=== PATIENT | female | born 1955 | race Caucasian/White ===

== ENCOUNTER → 2017-02-13 | Outpatient (CLI) | payer MEDICARE, OTHER ==
[~2017-02-13] MED LIST: ALDA25TA2 PO; ALLO100T PO; BYST10TA2 PO; CALC600T27 PO; CINN500C9 PO; CLEO300C2 PO; CYCL10TA PO; CYCL5TA PO; CYMB60CA3 PO; DIOV80TA3 PO; DOXY100C PO; FLEC50TA PO; GARL1CAP PO; HYDR200T3 PO; IPRASOL4 NEB; LECI1200 PO; LISI-542 PO; MAGN64TASA PO; MAXZ75TA PO; METF-415 PO; MIRA0.12 PO; OMEG12002 PO; OMEP20CA3 PO; ONDA1TAB15 PO; ONDA4TAB6 PO; PERCOCET PO; PRED5TA PO; PROA1AER INH; SPIR25TA2 PO; SUPECAP24 PO; THAL50CA PO; TORS10TA3 PO; TRAM37.53 PO; TRAM50TA2 PO; TRAZ50TA4 PO; TRIA37.53 PO; TYLE650T25 PO; VALS1TAB47 PO; VITA400C29 PO; VITMTA PO
--- NOTE | 2017-02-13 14:53 | REP ---
CT CHEST WITHOUT CONTRAST: 02/13/2017 CLINICAL HISTORY: Follow-up right lower lobe semisolid nodule. COMPARISON: CT 05/13/2016, CT angio chest 10/17/2015, report of CT 04/28/2016 from [facility]. I do not have those images. TECHNIQUE: Noncontrast images were obtained. Coronal and sagittal reconstructions provided along with thick slab coronal MIP reformats in the lung window settings. ILogic protocol images were also reconstructed. FINDINGS: Lung gerardo are well inflated. In the superior segment of the left lower lobe, there is an ill-defined 12 x 13 mm semisolid nodule peripherally it has mild stranding towards the pleura. The appearance is grossly unchanged in contour. On previous studies, it was approximately 10 mm axial images from the earlier generation scanner 05/13/2016. I do not see other parenchymal significant findings. There is some minor curvilinear fibrotic change in the left base. No pleural effusion, acute infiltrate or new nodule/mass. Heart unchanged. The appears to be a right upper extremity PICC line terminating in the SVC near the right atrium. No pathologic sized mediastinal or hilar adenopathy. No aortic aneurysm. A few calcifications in the arch and descending aorta. No definite hiatal hernia. In the upper abdomen, the liver and spleen are seen only in that portion of their entirety. I could not exclude splenomegaly. It does appear prominent in that portion included. The transverse diameter is 14 cm. The AP diameter of 7.2 cm, vertical diameter incomplete but at least 9.8 cm. Adrenal glands intact. Upper pole right kidney seen and unremarkable. That portion of pancreas included unremarkable. IMPRESSION: 1. Semisolid nodule superior segment left lower lobe measuring about 13 x 12 mm on my direct measurement from our images today. This is similar to report from outside CT. There is a few millimeters larger than are prior CT on an earlier generation scanner from the May 2016. No other significant lesions or nodules. 2. There appears to be a right upper extremity PICC line terminating in the SVC near the right atrium. 3. No pathologic mediastinal, hilar, axillary or supraclavicular adenopathy. Lobulated thyroid with multiple hypodensities within it as before. 4. Splenomegaly. Signed by Leonardo Bowser MD 02/13/2017 05:19 P
== END ==
LOC: M RAD 10:32
PROVIDERS: ATTEND Internal Medicine
DX: R91.1 Solitary pulmonary nodule (principal)

== ENCOUNTER → 2017-02-22 | Outpatient (REF) | payer MEDICARE, OTHER ==
[2017-02-22 10:10] LABS: DIFF SLIDE NUMBER 191; MEAN CORPUSCULAR HEMOGLOBIN 25.6 pg (27.0-33.0); MEAN CORPUSCULAR HGB CONC 32.1 g/dl (32.0-36.5); MEAN CORPUSCULAR VOLUME 79.8 fl (80.0-96.0); RED CELL DISTRIBUTION WIDTH 18.7 % (11.5-14.5)
[2017-02-22 10:25] LABS: ALKALINE PHOSPHATASE 116 U/L (45-117); ALT/SGPT 23 U/L (12-78); ANION GAP 9 MEQ/L (8-16); AST/SGOT 29 U/L (15-37); BILIRUBIN,TOTAL 0.4 MG/DL (0.2-1.0); BLOOD UREA NITROGEN 13 MG/DL (7-18); CALCIUM LEVEL 7.9 MG/DL (8.5-10.1); CARBON DIOXIDE LEVEL 26 MEQ/L (21-32); CHLORIDE LEVEL 99 MEQ/L (98-107); CREATININE FOR GFR 0.98 MG/DL (0.55-1.02); GLOMERULAR FILTRATION RATE > 60.0 (>51); GLUCOSE, FASTING 94 MG/DL (70-105); POTASSIUM SERUM 4.1 MEQ/L (3.5-5.1); SODIUM LEVEL 134 MEQ/L (136-145)
[2017-02-22 10:43] LABS: PLATELET COUNT, AUTOMATED 29 k/mm3 (150-450); WHITE BLOOD COUNT 44.5 K/mm3 (4.0-10.0)
[2017-02-22 11:02] LABS: BANDS 3 % (< 11); NUCLEATED RED BLOOD CELL 2 % (0-0)
[2017-02-22 11:03] LABS: ANISOCYTOSIS 2+; HYPOCHROMASIA 1+; MICROCYTOSIS 1+
[2017-02-22 11:04] LABS: TEAR DROP CELLS 1+
== END ==
LOC: M LAB REF 09:43
PROVIDERS: ATTEND Internal Medicine Hematology
DX: D75.89 Other specified diseases of blood and blood-forming organs (principal)

== ENCOUNTER → 2017-06-12 | Outpatient (REF) | payer MEDICARE, OTHER ==
[~2017-06-12] MED LIST changes: +ACYC200C8 PO; +ACYC400T PO; +AMLO10TA2 PO; +ATIV1TAB7 PO; +BACT800T5 PO; +BENZ200C53 PO; +BISO5TAB5 PO; +BUDE3CAP PO; +DIFL200T PO; +DILT120C PO; +DILT60TA PO; +DITR5TAB PO; +FENT12PA TOP; +GARL10004 PO; -GARL1CAP PO; +HYDR10TAB PO; +LACT10SO29 PO; +LISI10TA4 PO; +METO100T5 PO; +MG-PTAB PO; -ONDA1TAB15 PO; +ONDA4TAB5 PO; +OXYC-403 PO; +PANT40TA2 PO; -PROA1AER INH; +PROAAER10 INH; +PROG1CAP2 PO; +PROM12.55 PO; +REPA1TAB PO; +SENN1TAB10 PO; +SERT-155 PO; +SULFAMETHOXAZOLE-TMP; +TESS100C PO; +TRAZ50TA11 PO; -TRAZ50TA4 PO; +VITA-110 PO; -VITA400C29 PO; +[UNRECOGNIZED DRUG - CODE] PO
[2017-06-12 09:51] LABS: BASO % 0.8 % (0.0-1.0); EOS % 0.4 % (0.0-3.0); LARGE UNSTAINED CELL % 1.8 % (0.0-4.0); LYMPH # 0.4 K/mm3 (1.5-4.5); LYMPH % 19.2 % (24.0-44.0); MEAN CORPUSCULAR HEMOGLOBIN 33.1 pg (27.0-33.0); MEAN CORPUSCULAR HGB CONC 34.6 g/dl (32.0-36.5); MEAN CORPUSCULAR VOLUME 95.6 fl (80.0-96.0); MONO # 0.1 K/mm3 (0.0-0.8); MONO % 3.2 % (0.0-5.0); NEUTROPHILS # 1.6 K/mm3 (1.8-7.7); NEUTROPHILS % 74.5 % (36.0-66.0); RED CELL DISTRIBUTION WIDTH 20.9 % (11.5-14.5); WHITE BLOOD COUNT 2.1 K/mm3 (4.0-10.0)
[2017-06-12 09:58] LABS: PLATELET COUNT, AUTOMATED 98 k/mm3 (150-450)
[2017-06-12 10:00] LABS: ALBUMIN 3.5 GM/DL (3.2-5.2); ALBUMIN/GLOBULIN RATIO 1.75 (1.00-1.93); BILIRUBIN,TOTAL 0.5 MG/DL (0.2-1.0); CREATININE FOR GFR 1.66 MG/DL (0.55-1.02); GLOMERULAR FILTRATION RATE 33.5 (>45); MAGNESIUM LEVEL 1.7 MG/DL (1.8-2.4); POTASSIUM SERUM 3.9 MEQ/L (3.5-5.1); TOTAL PROTEIN 5.5 GM/DL (6.4-8.2)
== END ==
LOC: M LAB REF 09:21
PROVIDERS: ATTEND Internal Medicine
DX: Z94.81 Bone marrow transplant status (principal)

== ENCOUNTER → 2017-06-19 | Outpatient (REF) | payer MEDICARE, OTHER ==
[2017-06-19 11:28] LABS: ALBUMIN 3.7 GM/DL (3.2-5.2); ALBUMIN/GLOBULIN RATIO 1.68 (1.00-1.93); BILIRUBIN,TOTAL 0.5 MG/DL (0.2-1.0); CALCIUM LEVEL 9.2 MG/DL (8.8-10.2); CREATININE FOR GFR 1.94 MG/DL (0.55-1.02); POTASSIUM SERUM 3.8 MEQ/L (3.5-5.1); TOTAL PROTEIN 5.9 GM/DL (6.4-8.2)
[2017-06-19 11:34] LABS: ADD MANUAL DIFFER YES; MEAN CORPUSCULAR HEMOGLOBIN 34.4 pg (27.0-33.0); MEAN CORPUSCULAR HGB CONC 35.9 g/dl (32.0-36.5); MEAN CORPUSCULAR VOLUME 95.7 fl (80.0-96.0); PLATELET COUNT, AUTOMATED 104 k/mm3 (150-450); RED CELL DISTRIBUTION WIDTH 20.2 % (11.5-14.5); WHITE BLOOD COUNT 1.8 K/mm3 (4.0-10.0)
[2017-06-19 11:46] LABS: BASOPHILS 1 % (0-4)
== END ==
LOC: M LAB REF 11:02
PROVIDERS: ATTEND Internal Medicine
DX: Z94.81 Bone marrow transplant status (principal)

== ENCOUNTER → 2017-06-26 | Outpatient (REF) | payer MEDICARE, OTHER ==
[2017-06-26 10:12] LABS: ADD MANUAL DIFFER YES; DIFF SLIDE NUMBER 152; MEAN CORPUSCULAR HEMOGLOBIN 35.1 pg (27.0-33.0); MEAN CORPUSCULAR HGB CONC 36.1 g/dl (32.0-36.5); MEAN CORPUSCULAR VOLUME 97.2 fl (80.0-96.0)
[2017-06-26 10:30] LABS: ALBUMIN 3.7 GM/DL (3.2-5.2); ALBUMIN/GLOBULIN RATIO 1.68 (1.00-1.93); BILIRUBIN,TOTAL 0.6 MG/DL (0.2-1.0); CALCIUM LEVEL 9.5 MG/DL (8.8-10.2); CREATININE FOR GFR 1.63 MG/DL (0.55-1.02); GLOMERULAR FILTRATION RATE 34.3 (>45); MAGNESIUM LEVEL 1.6 MG/DL (1.8-2.4); TOTAL PROTEIN 5.9 GM/DL (6.4-8.2)
[2017-06-26 10:42] LABS: PLATELET COUNT, AUTOMATED 94 k/mm3 (150-450)
[2017-06-26 10:48] LABS: ANISOCYTOSIS 2+
[2017-06-26 10:52] LABS: HYPERSEGMENTED POLYS 1+
== END ==
LOC: M LAB REF 08:45
PROVIDERS: ATTEND Internal Medicine
DX: Z94.81 Bone marrow transplant status (principal)

== ENCOUNTER → 2017-07-03 | Outpatient (REF) | payer MEDICARE, OTHER ==
[2017-07-03 10:54] LABS: ADD MANUAL DIFFER YES; DIFF SLIDE NUMBER 163; MEAN CORPUSCULAR HGB CONC 34.9 g/dl (32.0-36.5); MEAN CORPUSCULAR VOLUME 100.1 fl (80.0-96.0); RED CELL DISTRIBUTION WIDTH 18.6 % (11.5-14.5); WHITE BLOOD COUNT 3.2 K/mm3 (4.0-10.0)
[2017-07-03 11:12] LABS: PLATELET COUNT, AUTOMATED 93 k/mm3 (150-450)
[2017-07-03 11:18] LABS: POLYCHROMASIA 1+
[2017-07-03 12:19] LABS: ALBUMIN 3.8 GM/DL (3.2-5.2); ALBUMIN/GLOBULIN RATIO 1.81 (1.00-1.93); BILIRUBIN,TOTAL 0.5 MG/DL (0.2-1.0); CALCIUM LEVEL 8.9 MG/DL (8.8-10.2); CREATININE FOR GFR 1.48 MG/DL (0.55-1.02); GLOMERULAR FILTRATION RATE 38.3 (>45); MAGNESIUM LEVEL 1.7 MG/DL (1.8-2.4); POTASSIUM SERUM 4.1 MEQ/L (3.5-5.1); TOTAL PROTEIN 5.9 GM/DL (6.4-8.2)
== END ==
LOC: M LAB REF 09:35
PROVIDERS: ATTEND Internal Medicine
DX: Z94.81 Bone marrow transplant status (principal)

== ENCOUNTER → 2017-07-17 | Outpatient (REF) | payer MEDICARE, OTHER ==
[2017-07-17 17:38] LABS: ALBUMIN 3.8 GM/DL (3.2-5.2); ALBUMIN/GLOBULIN RATIO 1.65 (1.00-1.93); BILIRUBIN,TOTAL 0.5 MG/DL (0.2-1.0); CALCIUM LEVEL 9.1 MG/DL (8.8-10.2); CREATININE FOR GFR 1.57 MG/DL (0.55-1.02); GLOMERULAR FILTRATION RATE 35.8 (>45); MAGNESIUM LEVEL 1.9 MG/DL (1.8-2.4); POTASSIUM SERUM 4.2 MEQ/L (3.5-5.1); TOTAL PROTEIN 6.1 GM/DL (6.4-8.2)
== END ==
LOC: M LAB REF 16:18
PROVIDERS: ATTEND Internal Medicine
DX: Z94.81 Bone marrow transplant status (principal)

== ENCOUNTER → 2017-07-31 | Outpatient (REF) | payer MEDICARE, OTHER ==
[2017-07-31 17:39] LABS: ALBUMIN 3.5 GM/DL (3.2-5.2); ALBUMIN/GLOBULIN RATIO 1.35 (1.00-1.93); BILIRUBIN,TOTAL 0.4 MG/DL (0.2-1.0); CALCIUM LEVEL 9.1 MG/DL (8.8-10.2); CREATININE FOR GFR 1.31 MG/DL (0.55-1.02); GLOMERULAR FILTRATION RATE 44.1 (>45); MAGNESIUM LEVEL 1.6 MG/DL (1.8-2.4); TOTAL PROTEIN 6.1 GM/DL (6.4-8.2)
[2017-07-31 18:42] LABS: BASO % 0.3 % (0.0-1.0); EOS # 0.2 10^3/uL (0.0-0.50); EOS % 1.9 % (0.0-3.0); IMMATURE GRANULOCYTE % 0.3 % (0-0); LYMPH # 1.2 10^3/uL (1.5-4.5); MEAN CORPUSCULAR HEMOGLOBIN 35.4 pg (27.0-33.0); MEAN CORPUSCULAR HGB CONC 35.7 g/dl (32.0-36.5); MEAN CORPUSCULAR VOLUME 99.3 fl (80.0-96.0); MONO # 0.6 10^3/uL (0.0-0.8); MONO % 7.5 % (0.0-5.0); PLATELET COUNT, AUTOMATED 112 10^3/uL (150-450); RED CELL DISTRIBUTION WIDTH 15.5 % (11.5-14.5)
== END ==
LOC: M LAB REF 16:28
PROVIDERS: ATTEND Internal Medicine
DX: Z94.81 Bone marrow transplant status (principal)

== ENCOUNTER → 2017-08-07 | Outpatient (REF) | payer MEDICARE, OTHER ==
[2017-08-07 10:49] LABS: BASO % 0.4 % (0.0-1.0); EOS # 0.1 10^3/uL (0.0-0.50); EOS % 2.8 % (0.0-3.0); IMMATURE GRANULOCYTE % 0.2 % (0-0); LYMPH # 0.9 10^3/uL (1.5-4.5); LYMPH % 18.5 % (24.0-44.0); MEAN CORPUSCULAR HEMOGLOBIN 35.3 pg (27.0-33.0); MEAN CORPUSCULAR VOLUME 100.7 fl (80.0-96.0); MONO # 0.6 10^3/uL (0.0-0.8); MONO % 12.2 % (0.0-5.0); NEUTROPHILS # 3.4 10^3/uL (1.8-7.7); NEUTROPHILS % 65.9 % (36.0-66.0); RED CELL DISTRIBUTION WIDTH 15.1 % (11.5-14.5); WHITE BLOOD COUNT 5.1 10^3/uL (4.0-10.0)
[2017-08-07 10:52] LABS: PLATELET COUNT, AUTOMATED 99 10^3/uL (150-450)
[2017-08-07 10:53] LABS: ADD MANUAL DIFFER NO; DIFF SLIDE NUMBER 170
[2017-08-07 11:05] LABS: ALBUMIN 3.6 GM/DL (3.2-5.2); ALBUMIN/GLOBULIN RATIO 1.44 (1.00-1.93); BILIRUBIN,TOTAL 0.5 MG/DL (0.2-1.0); CALCIUM LEVEL 9.7 MG/DL (8.8-10.2); CREATININE FOR GFR 1.39 MG/DL (0.55-1.02); GLOMERULAR FILTRATION RATE 41.2 (>45); MAGNESIUM LEVEL 1.7 MG/DL (1.8-2.4); POTASSIUM SERUM 4.1 MEQ/L (3.5-5.1); TOTAL PROTEIN 6.1 GM/DL (6.4-8.2)
[2017-08-16 09:53] LABS: IMMATURE PLATELET FRACTION % 3.6 % (0.0-9.6)
== END ==
LOC: M LAB REF 10:30
PROVIDERS: ATTEND Internal Medicine
DX: Z94.81 Bone marrow transplant status (principal)

== ENCOUNTER 2017-08-13 15:26 | Inpatient (IN) | payer MEDICARE, OTHER ==
[~2017-08-13] VITALS: Ht 165.1 cm; Wt 88.2 kg
[~2017-08-13 15:26] MED LIST changes: -ACYC200C8 PO; -ACYC400T PO; -AMLO10TA2 PO; -ATIV1TAB7 PO; -BACT800T5 PO; -BENZ200C53 PO; -BISO5TAB5 PO; -BUDE3CAP PO; -DIFL200T PO; -DILT120C PO; -DILT60TA PO; -DITR5TAB PO; -FENT12PA TOP; -HYDR10TAB PO; -LACT10SO29 PO; -LISI10TA4 PO; -METO100T5 PO; -MG-PTAB PO; -OXYC-403 PO; -PANT40TA2 PO; -PROG1CAP2 PO; -PROM12.55 PO; -REPA1TAB PO; -SENN1TAB10 PO; -SERT-155 PO; -SULFAMETHOXAZOLE-TMP; -TESS100C PO; -[UNRECOGNIZED DRUG - CODE] PO
[2017-08-13] MEDS ORDERED: SERT-155 PO (16:02)
[2017-08-13] MEDS ORDERED: TESS100C PO (16:02)
[2017-08-13] MEDS ORDERED: SULFAMETHOXAZOLE-TMP (16:02)
[2017-08-13] MEDS ORDERED: DITR5TAB PO (16:02)
[2017-08-13] MEDS ORDERED: [UNRECOGNIZED DRUG - CODE] PO (16:02)
[2017-08-13] MEDS ORDERED: DIFL200T PO (16:02)
[2017-08-13] MEDS ORDERED: BUDE3CAP PO (16:02)
[2017-08-13] MEDS ORDERED: ATIV1TAB7 PO (16:02)
[2017-08-13] MEDS ORDERED: FENT12PA TOP (16:02)
[2017-08-13] MEDS ORDERED: ACYC200C8 PO (16:02)
[2017-08-13] MEDS ORDERED: METO100T5 PO (16:02)
[2017-08-13] MEDS ORDERED: OXYC-403 PO (16:02)
[2017-08-13] MEDS ORDERED: PANT40TA2 PO (16:02)
[2017-08-13] MEDS ORDERED: DILT60TA PO (16:02)
[2017-08-13] MEDS ORDERED: PROG1CAP2 PO (16:02)
[2017-08-13] MEDS ORDERED: LABETALOL HCL 100 MG/20 ML VIAL IV STA ×2 (16:47→19:35)
[2017-08-13] MEDS ORDERED: METOPROLOL TART 50 MG TAB PO ONE (17:00)
[2017-08-13] MEDS ORDERED: NS 1,000 ML IV ONE (17:15)
[2017-08-13] MEDS ORDERED: oxyCODONE 5MG TAB PO ONE (17:15)
[2017-08-13 18:03] LABS: CALCIUM LEVEL 9.3 MG/DL (8.8-10.2); CREATININE FOR GFR 1.35 MG/DL (0.55-1.02); GLOMERULAR FILTRATION RATE 42.6 (>45)
[2017-08-13 18:05] LABS: BASO % 0.2 % (0.0-1.0); EOS # 0.1 10^3/uL (0.0-0.50); EOS % 1.4 % (0.0-3.0); IMMATURE GRANULOCYTE % 0.2 % (0-0); LYMPH # 1.1 10^3/uL (1.5-4.5); LYMPH % 19.7 % (24.0-44.0); MEAN CORPUSCULAR HEMOGLOBIN 34.9 pg (27.0-33.0); MEAN CORPUSCULAR HGB CONC 35.4 g/dl (32.0-36.5); MEAN CORPUSCULAR VOLUME 98.6 fl (80.0-96.0); MONO # 0.6 10^3/uL (0.0-0.8); NEUTROPHILS % 68.5 % (36.0-66.0); PLATELET COUNT, AUTOMATED 105 10^3/uL (150-450); RED CELL DISTRIBUTION WIDTH 14.4 % (11.5-14.5); WHITE BLOOD COUNT 5.8 10^3/uL (4.0-10.0)
[2017-08-13 18:07] LABS: ADD MANUAL DIFFER NO; DIFF SLIDE NUMBER 155
--- NOTE | 2017-08-13 19:00 | REPUSA ---
CT of the head Clinical history: Headache. Comparison: 10/20/2015. Technique: Multiple axial CT images were obtained through the head without administration of contrast . Findings: The ventricles and sulci are symmetric bilaterally. There is no evidence of acute hemorrhag e or infarct. There is no midline shift, mass effect, or extra-axial fluid collection. The osseous st ructures are unremarkable. The visualized paranasal sinuses and mastoid air cells are clear. Impression: Negative study.
[2017-08-13] MEDS ORDERED: ONDA4TAB5 PO (20:17)
[2017-08-13] MEDS ORDERED: MG-PTAB PO (20:17)
[2017-08-13] MEDS ORDERED: ACYC400T PO (20:17)
[2017-08-13] MEDS ORDERED: BACT800T5 PO (20:17)
[2017-08-13] MEDS ORDERED: BENZ200C53 PO (20:17)
[2017-08-13] MEDS ORDERED: REPA1TAB PO (20:17)
[2017-08-13] MEDS ORDERED: DILT120C PO (20:17)
[2017-08-13] MEDS ORDERED: SENN1TAB10 PO (20:20)
[2017-08-13] MEDS ORDERED: PROM12.55 PO (20:20)
[2017-08-13] MEDS ORDERED: LACT10SO29 PO (20:20)
[2017-08-13] MEDS ORDERED: MIRA0.12 PO (20:20)
[2017-08-13] MEDS: TACROLIMUS 1 MG CAP (J7507) PO SCH (21:00)
[2017-08-13] MEDS: PRAMIPEXOLE (MIRAPEX) 0.125 MG TAB PO SCH (21:00)
[2017-08-13] MEDS: ACYCLOVIR 200 MG CAPSULE PO SCH (21:00)
[2017-08-13] MEDS: FLUCONAZOLE 100 MG TAB PO SCH (21:00)
[2017-08-13] MEDS: METOPROLOL TARTRATE 100 MG TAB PO SCH (21:00)
[2017-08-13] MEDS: SERTRALINE HCL 50 MG TAB PO SCH (21:00)
[2017-08-13] MEDS ORDERED: FENTANYL REMOVAL DOCUMENTATION MISC XX SCH (22:30)
[2017-08-13] MEDS ORDERED: hydrALAZINE INJ 20 MG/ML VIAL IV PRN (22:45)
[2017-08-13] MEDS: MORPHINE 2 MG/ML 1ML SYRINGE IV PRN (23:37)
[2017-08-14] MEDS: MORPHINE 2 MG/ML 1ML SYRINGE IV PRN ×4 (03:04→15:42)
--- NOTE | 2017-08-14 06:39 | HPEPDOC ---
General Date of Admission Aug 13, 2017 at 22:36 Primary Care Physician: RAMONA CORDOVA MD Attending Physician: JOSIANE AMES MD Chief Complaint The patient is a 62-year-old female admitted with a reason for visit of Hypertensive Urgency. Source: Patient Exam Limitations: No limitations Timing/Duration: 24 hours Severity: Mild History of Present Illness 62-year-old female, history of myelofibrosis status post stem cell transplant, currently on tacrolimus , presented with hypertensive urgency. Past Monday she got her chemotherapy infusion and since then her blood pressure rising and she was recommended to come to the emergency room by her oncologist. Denies any headache, blurred vision, tingling, numbness, motor or sensory deficit. Home Medications Scheduled (Sertraline HCl) 50 Mg Tab, 50 MG PO QHS, (Reported) (mg-Plus Protein 133 mg) 1 Tab Tab, 2 TAB PO BID, (Reported) Acyclovir (Acyclovir) 400 Mg Tab, 400 MG PO BID, (Reported) Budesonide (Budesonide) 3 Mg Cap, 3 MG PO DAILY, (Reported) Diltiazem HCl (Diltiazem HCl ER) 120 Mg Cap, 120 MG PO BID, (Reported) Fentanyl (Duragesic) 12 Mcg Tdsy, 12 MCG TOP Q72H, (Reported) Fluconazole (Diflucan) 200 Mg Tab, 200 MG PO QHS, (Reported) Lorazepam (Ativan) 1 Mg Tab, 1 MG PO QHS, (Reported) Metoprolol Tartrate (Metoprolol Tartrate) 100 Mg Tab, 100 MG PO BID, (Reported) Multivitamins *[facility] STOCKED* (Thera M Plus *[facility] STOCKED*) 1 Tab Tab, 1 TAB PO DAILY, (Reported) Oxybutynin Chloride (Ditropan Xl) 5 Mg Tab, 5 MG PO DAILY, (Reported) Pantoprazole Sodium (Pantoprazole Sodium) 40 Mg Tab, 40 MG PO DAILY, (Reported) Pramipexole Dihydrochloride (Mirapex) 0.125 Mg Tab, 0.25 MG PO QHS, (Reported) Pramipexole Dihydrochloride (Mirapex) 0.125 Mg Tab, 0.125 MG PO DAILY, (Reported ) Repaglinide (Repaglinide) 0.5 Mg Tab, 0.5 MG PO TID, (Reported) Senna (Senna Lax) 8.6 Mg Tab, 1 TAB PO DAILY, (Reported) Tacrolimus (Prograf) 1 Mg Cap, 1 MG PO BID, (Reported) Torsemide (Torsemide) 10 Mg Tab, 10 MG PO Q2D, (Reported) Trimethoprim/Sulfamethoxazole (Bactrim Ds 800-160 mg) 1 Tab Tab, 1 TAB PO 3XW, ( Reported) MON, WED, FRI Scheduled PRN Acetaminophen (Tylenol Arthritis Pain) 650 Mg Tab, 1,300 MG PO BID PRN for PAIN, (Reported) Benzonatate (Benzonatate) 200 Mg Cap, 200 MG PO TID PRN for COUGH, (Reported) MDD 3 Cyclobenzaprine HCl (Cyclobenzaprine HCl) 10 Mg Tab, 10 MG PO TID PRN for MUSCLE SPASMS, (Reported) Lactulose (Lactulose) 10 Gm/15 Ml Maryellen, 15 ML PO TID PRN for CONSTIPATION, ( Reported) Ondansetron HCl (Ondansetron HCl) 4 Mg Tab, 4 MG PO TID PRN for NAUSEA, ( Reported) Oxycodone HCl (Oxycodone HCl ER) 10 Mg Tab, 10 MG PO Q12H PRN for pain, ( Reported) Promethazine HCl (Promethazine HCl) 12.5 Mg Tab, 12.5 MG PO Q6H PRN for NAUSEA, (Reported) TAKES IF ZOFRAN NOT WORKING Allergies Coded Allergies: Quinolones (Verified Allergy, Severe, CIPRO-CAN'T BREATHE, 06/24/14) Contrast Media (Verified Allergy, Intermediate, tongue swelling, 08/13/17) Meperidine (Verified Allergy, Unknown, 06/24/14) Penicillins Cross Reactors (Verified Allergy, Unknown, 06/24/14) Prochlorperazine (Verified Allergy, Unknown, 06/24/14) Banana (Verified Adverse Reaction, Mild, VOMITING, 08/13/17) Penicillins (Verified Adverse Reaction, Mild, DIZZINESS, 08/13/17) Past Medical History Medical History Myelofibrosis atrial fibrillation, hypertension, SLE, fibromyalgia, obstructive sleep apnea, renal calculus Surgical History Stem cell transplant, Family History Significant Family History: Renal disease Social History * Smoker: Denies Alcohol: Denies Drugs: denies Recent Travel/Sick Contacts: Denies: Recent travel, Recent sick contacts Psychosocial History: No pertinent psych hx Review of Symptoms Constitutional: Denies: Chills, Fever, Night Sweats Eyes: Denies: Pain, Vision change ENT: Denies: Head Aches, Ear Pain, Dysphagia Skin: Denies: Rash, Lesions, Breakdown Pulmonary: Denies: Dyspnea, Cough Cardiovascular: Denies: Chest Pain, Palpitations, Orthopnea, Paroxysmal Noc. Dyspnea, Lt Headedness Gastrointestinal: Denies: Nausea, Vomiting, Abdominal Pain, Diarrhea Genitourinary: Denies: Dysuria, Frequency, Incontinence, Retention Hematologic: Denies: Bruising, Bleeding Excessively Musculoskeletal: Denies: Neck Pain, Back Pain, Joint Pain, Muscle Pain, Spasms Neurological: Denies: Weakness, Numbness, Change in speech, Confusion Psych: Reports: Mood Normal, Denies: Depression, Memory Issues Physical Examination General Exam: Positive: Alert, Mild Distress Eye Exam: Positive: PERRLA, Conjunctiva & lids normal, EOMI, Negative: Sclera icteric ENT Exam: Positive: Atraumatic, Mucous membr. moist/pink, Pharynx Normal Neck Exam: Positive: Supple, Negative: JVD, thyromegaly Chest Exam: Positive: Clear to auscultation, Normal air movement Heart Exam: Positive: Rate Normal, Regular Rhythm, Normal S1, Normal S2, Negative: Murmurs, Rubs Telemetry: Positive: No significant arrhythmia Abdomen Exam: Positive: Normal bowel sounds, Soft, Negative: Tenderness, Hepatospenomegaly Extremity Exam: Positive: Normal pulses, Negative: Clubbing, Cyanosis, Edema Skin Exam: Positive: Nl turgor and temperature, Negative: Breakdown, Lesion Neuro Exam: Positive: Normal Speech, Cranial Nerves 3-12 NL, Reflexes 2+ Psych Exam: Positive: Mental status NL, Mood NL, Oriented x 3 Vital Signs Vital Signs Date Time Temp Pulse Resp B/P (MAP) Pulse Ox O2 Delivery O2 Flow Rate FiO2 08/14/17 05:56 66 92 08/14/17 05:33 166/80 (108) 08/14/17 03:04 16 Room Air 08/13/17 15:27 98.9 Laboratory Data Labs 24H Laboratory Tests 2 08/13/17 17:19: Immature Granulocyte % (Auto) 0.2H, White Blood Count 5.8, Red Blood Count 2.92L , Hemoglobin 10.2L, Hematocrit 28.8L, Mean Corpuscular Volume 98.6H, Mean Corpuscular Hemoglobin 34.9H, Mean Corpuscular Hemoglobin Concent 35.4, Red Cell Distribution Width 14.4, Platelet Count 105L, Neutrophils (%) (Auto) 68.5H , Lymphocytes (%) (Auto) 19.7L, Monocytes (%) (Auto) 10.0H, Eosinophils (%) ( Auto) 1.4, Basophils (%) (Auto) 0.2, Neutrophils # (Auto) 4.0, Lymphocytes # ( Auto) 1.1L, Monocytes # (Auto) 0.6, Eosinophils # (Auto) 0.1, Basophils # (Auto ) 0.0, Immature Granulocyte # (Auto) 0.0, Nucleated Red Blood Cells % (auto) 0.0 , Anion Gap 7L, Glomerular Filtration Rate 42.6L, Blood Urea Nitrogen 25H, Creatinine 1.35H, Sodium Level 138, Potassium Level 4.0, Chloride Level 101, Carbon Dioxide Level 30, Calcium Level 9.3 CBC/BMP Laboratory Tests 08/13/17 17:19 Red Blood Count 2.92 L, Mean Corpuscular Volume 98.6 H, Mean Corpuscular Hemoglobin 34.9 H, Mean Corpuscular Hemoglobin Concent 35.4, Red Cell Distribution Width 14.4, Neutrophils (%) (Auto) 68.5 H, Lymphocytes (%) (Auto) 19.7 L, Monocytes (%) (Auto) 10.0 H, Eosinophils (%) (Auto) 1.4, Basophils (%) ( Auto) 0.2, Neutrophils # (Auto) 4.0, Lymphocytes # (Auto) 1.1 L, Monocytes # ( Auto) 0.6, Eosinophils # (Auto) 0.1, Basophils # (Auto) 0.0, Calcium Level 9.3 Assessment/Plan 62-year-old female, history of myelofibrosis status post stem cell transplant, currently on immunosuppression, presented with hypertensive urgency post chemotherapy infusion Plan / VTE VTE Prophylaxis Ordered?: Yes Plan Plan Hypertensive urgency Cardizem was increased to 90 mg every 6. Hours and Lopressor was continued at 100 mg twice a day. 10. Atrial fibrillation. Continue with Lopressor and Cardizem for rate control. No anticoagulation due to to thrombocytopenia Myelofibrosis, status post stem cell transplant. Continue on tacrolimus, prophylactic fluconazole and Bactrim. Follow-up oncologist outpatient. 10. DVT prophylaxis with SCD Disposition Patient will be discharged home after blood pressure controlled IVF: Initiate Diet: Continue Current Activity: Continue Current Diagnostics: Check Labs, Repeat Labs in AM Anticipated Discharge: Home HARRY LUNDBERG MD Aug 14, 2017 06:39
[2017-08-14 06:58] LABS: BASO % 0.4 % (0.0-1.0); EOS # 0.1 10^3/uL (0.0-0.50); EOS % 2.5 % (0.0-3.0); IMMATURE GRANULOCYTE % 0.2 % (0-0); LYMPH % 19.5 % (24.0-44.0); MEAN CORPUSCULAR HGB CONC 35.2 g/dl (32.0-36.5); MEAN CORPUSCULAR VOLUME 99.6 fl (80.0-96.0); MONO # 0.7 10^3/uL (0.0-0.8); MONO % 12.5 % (0.0-5.0); NEUTROPHILS # 3.4 10^3/uL (1.8-7.7); NEUTROPHILS % 64.9 % (36.0-66.0); RED CELL DISTRIBUTION WIDTH 14.6 % (11.5-14.5); WHITE BLOOD COUNT 5.2 10^3/uL (4.0-10.0)
[2017-08-14 06:59] LABS: PLATELET COUNT, AUTOMATED 97 10^3/uL (150-450)
[2017-08-14 07:02] LABS: IMMATURE PLATELET FRACTION % 2.4 % (0.0-9.6); PLATELET F 97
[2017-08-14 07:10] LABS: INR 1.24
[2017-08-14 07:24] LABS: ALBUMIN 3.3 GM/DL (3.2-5.2); ALBUMIN/GLOBULIN RATIO 1.22 (1.00-1.93); BILIRUBIN,TOTAL 0.4 MG/DL (0.2-1.0); CALCIUM LEVEL 9.5 MG/DL (8.8-10.2); CREATININE FOR GFR 1.18 MG/DL (0.55-1.02); GLOMERULAR FILTRATION RATE 49.7 (>45); POTASSIUM SERUM 3.9 MEQ/L (3.5-5.1)
--- NOTE | 2017-08-14 07:46 | REP ---
A P and lateral chest: Comparison 05/31/2016. There are no focal infiltrates. No pleural effusions. Cardiac size is normal for positioning. The lung gerardo otherwise clear. The senthil, mediastinum, bony thorax unremarkable. There is a right IJ [id number]-[id number] catheter with the tip in the superior vena cava as an interval change. Impression: No acute cardiopulmonary findings. Llvyzi-D-Bulw. Signed by Miguel A Kumar MD 08/14/2017 07:37 A MTDD
[2017-08-14 08:00] VITALS: BP 198/90
[2017-08-14] MEDS ORDERED: TACROLIMUS 1 MG CAP (J7507) PO SCH (09:00)
[2017-08-14] MEDS: ACYCLOVIR 200 MG CAPSULE PO SCH ×2 (09:01→21:07)
[2017-08-14] MEDS: PANTOPRAZOLE 40MG TAB (PROTONIX) PO SCH (09:02)
[2017-08-14] MEDS: REPAGLINIDE 0.5 MG PO SCH ×3 (09:02→18:04)
[2017-08-14] MEDS: SENNA 8.6 MG TAB (SENOKOT) PO SCH (09:02)
[2017-08-14] MEDS: BACTRIM 160MG/800MG DS TAB PO SCH (09:02)
[2017-08-14] MEDS: PRAMIPEXOLE (MIRAPEX) 0.125 MG TAB PO SCH ×2 (09:02→21:07)
[2017-08-14] MEDS: METOPROLOL TARTRATE 100 MG TAB PO SCH (09:03)
[2017-08-14] MEDS: oxyBUTYnin *DITROPAN XL* 5 MG TABCR PO SCH (09:03)
[2017-08-14] MEDS: TACROLIMUS 1 MG CAP (J7507) PO SCH ×2 (09:04→21:09)
--- NOTE | 2017-08-14 09:05 | ECGEPIP ---
Stationary ECG Study [facility] - ED Test Date: 2017-08-13 Pat Name: ROLAND ASHFORD Department: Room: - Gender: F Digital Forensics Investigator: AF : 1955 Requested By: ALESSANDRA Flores Order Number: [id number] Reading MD: Jake German Measurements Intervals [place] Rate: 83 P: DE: 0 QRS: -12 QRSD: 106 T: 4 QT: 387 QTc: 456 Interpretive Statements ATRIAL FLUTTER POSSIBLE LEFT ATRIAL ENLARGEMENT INC. RBBB RHYTHM CHANGE COMPARED TO 05/15/16 Electronically Signed On 08-14-2017 9:04:56 EDT by Jake eGrman
[2017-08-14] MEDS: BUDESONIDE EC 3 MG CAP (ENTOCORT EC) PO SCH (09:16)
[2017-08-14 12:00] VITALS: BP 188/98
[2017-08-14] MEDS ORDERED: amLODIPine 5 MG TAB PO ONE (12:45)
--- NOTE | 2017-08-14 13:52 | REP ---
MR BRAIN WITHOUT CONTRAST: HISTORY: Infarction. COMPARISON: 10/22/2015 Areas of increased signal intensity on T2-weighted images are present in the periventricular and subcortical white matter and odessa. This represents small vessel ischemic disease. There is no intraparenchymal hemorrhage, infarct, mass or midline shift. The ventricular system and cortical sulci are dilated consistent with minimal volume loss. There is no extracerebral collection. Mucosal thickening is present in the right maxillary sinus. IMPRESSION: 1. Small vessel ischemic disease. 2. Minimal volume loss. Signed by Jordan Acevedo MD 08/14/2017 01:52 P
[2017-08-14] MEDS ORDERED: **hydrALAZINE** 10 MG TAB PO ONE (14:15)
--- NOTE | 2017-08-14 14:20 | IPNPDOC ---
Text Note Date of Service The patient was seen on 08/14/17. NOTE Subjective: Pt states she noted her BP elevated, for which she came to the ED. Denies CP/palpitations/ neurologic symptoms. Objective: Vitals: (see below) General: No acute distress, laying comfortably in bed. HEENT: Moist mucous membranes. Neck: No JVD or lymphadenopathy Cardiac: RRR, No murmurs Pulm: Diminished breath sounds b/l. No wheezing, rhonchi Abd: NT/ND + BS. Obese Ext: No edema or cyanosis Strength 3/5 strength BUE/BLE. CN 2-12 intact. Labs (see below) Images: MRI brain 08/14/17 IMPRESSION: 1. Small vessel ischemic disease. 2. Minimal volume loss. Assessment/Plan 1. Hypertensive urgency- MRI negative for CVA. Started on amlodipine, hydralazine. Discontinue metoprolol. 2. Myelofibrosis status post stem cell transplant, on tacrolimus. Follows up in [place]. Also on prophylactic fluconazole and Bactrim. Follow-up with oncology. 3.History of atrial fibrillation - states she's not on anticoagulation given her chemotherapy. DC metoprolol. Patient states she's on bisoprolol twice a day at home. 4. Generalized weakness- patient states she is 3 out of 5 strength bilateral upper and lower extremities at baseline. States she is working with physical therapy to begin strength. MRI negative for CVA. 5. CKD stage 3 - Cr at baseline. Avoid nephrotoxins. 6. Chronic anemia and thrombocytopenia - No bleeding at this time. No need for transfusion at this time. DVT prophy: SCDs VS,Fishbone, I+O VS, Fishbone, I+O Laboratory Tests 08/13/17 17:19 Red Blood Count 2.92 L, Mean Corpuscular Volume 98.6 H, Mean Corpuscular Hemoglobin 34.9 H, Mean Corpuscular Hemoglobin Concent 35.4, Red Cell Distribution Width 14.4, Neutrophils (%) (Auto) 68.5 H, Lymphocytes (%) (Auto) 19.7 L, Monocytes (%) (Auto) 10.0 H, Eosinophils (%) (Auto) 1.4, Basophils (%) ( Auto) 0.2, Neutrophils # (Auto) 4.0, Lymphocytes # (Auto) 1.1 L, Monocytes # ( Auto) 0.6, Eosinophils # (Auto) 0.1, Basophils # (Auto) 0.0, Calcium Level 9.3 08/14/17 06:42 Red Blood Count 2.74 L, Mean Corpuscular Volume 99.6 H, Mean Corpuscular Hemoglobin 35.0 H, Mean Corpuscular Hemoglobin Concent 35.2, Red Cell Distribution Width 14.6 H, Neutrophils (%) (Auto) 64.9, Lymphocytes (%) (Auto) 19.5 L, Monocytes (%) (Auto) 12.5 H, Eosinophils (%) (Auto) 2.5, Basophils (%) ( Auto) 0.4, Neutrophils # (Auto) 3.4, Lymphocytes # (Auto) 1.0 L, Monocytes # ( Auto) 0.7, Eosinophils # (Auto) 0.1, Basophils # (Auto) 0.0 08/14/17 06:43 Calcium Level 9.5, Aspartate Amino Transf (AST/SGOT) 35, Alanine Aminotransferase (ALT/SGPT) 58, Alkaline Phosphatase 72, Total Bilirubin 0.4, Total Protein 6.0 L, Albumin 3.3 Vital Signs Date Time Temp Pulse Resp B/P (MAP) Pulse Ox O2 Delivery O2 Flow Rate FiO2 08/14/17 13:50 181/97 08/14/17 13:30 90 08/14/17 13:29 18 08/14/17 12:00 98.6 98 Room Air I&O- Last 24 Hours up to 6 AM 08/15/17 06:00 Intake Total 840 ml Balance 840 ml JOSIANE AMES MD Aug 14, 2017 14:20
[2017-08-14] MEDS: **hydrALAZINE** 10 MG TAB PO SCH ×2 (15:45→21:09)
[2017-08-14 16:00] VITALS: BP 157/84
[2017-08-14 16:49] VITALS: BP 142/78
[2017-08-14] MEDS: ACETAMINOPHEN TAB 650MG DOSE (2X325MG) PO PRN (18:05)
[2017-08-14 18:16] VITALS: BP 150/72
[2017-08-14] MEDS: hydrALAZINE INJ 20 MG/ML VIAL IV SCH ×2 (18:18→23:05)
[2017-08-14 20:00] VITALS: BP 140/72
[2017-08-14] MEDS ORDERED: oxyCODONE 5MG TAB PO ONE (20:15)
[2017-08-14] MEDS ORDERED: PERCOCET 5MG/325MG TAB PO ONE (20:15)
[2017-08-14] MEDS: ONDANSETRON 4MG/2ML VIAL (J2405) IV PRN (21:07)
[2017-08-14] MEDS: FLUCONAZOLE 100 MG TAB PO SCH (21:08)
[2017-08-14] MEDS: SERTRALINE HCL 50 MG TAB PO SCH (21:09)
[2017-08-14] MEDS: SODIUM CHLORIDE 0.9% INJ 10 ML SYR IV PRN (21:11)
[2017-08-14] MEDS ORDERED: PROMETHAZINE INJ 25 MG/ML VIAL (J2550) IV ONE (22:45)
[2017-08-15] VITALS (7 sets, daily range): BP systolic 128–146; BP diastolic 64–78
[2017-08-15] MEDS: hydrALAZINE INJ 20 MG/ML VIAL IV SCH ×6 (02:00→22:00)
[2017-08-15] MEDS: ACETAMINOPHEN TAB 650MG DOSE (2X325MG) PO PRN ×2 (04:47→20:46)
[2017-08-15] MEDS: TACROLIMUS 1 MG CAP (J7507) PO SCH ×2 (08:14→20:47)
[2017-08-15] MEDS: oxyBUTYnin *DITROPAN XL* 5 MG TABCR PO SCH (08:14)
[2017-08-15] MEDS: ACYCLOVIR 200 MG CAPSULE PO SCH ×2 (08:14→20:46)
[2017-08-15] MEDS: PRAMIPEXOLE (MIRAPEX) 0.125 MG TAB PO SCH ×2 (08:14→20:46)
[2017-08-15] MEDS: REPAGLINIDE 0.5 MG PO SCH ×3 (08:14→16:39)
[2017-08-15] MEDS: SENNA 8.6 MG TAB (SENOKOT) PO SCH (08:14)
[2017-08-15] MEDS: **hydrALAZINE** 10 MG TAB PO SCH ×3 (08:15→20:47)
[2017-08-15] MEDS: PANTOPRAZOLE 40MG TAB (PROTONIX) PO SCH (08:15)
[2017-08-15] MEDS: SODIUM CHLORIDE 0.9% INJ 10 ML SYR IV SCH (08:16)
[2017-08-15] MEDS ORDERED: amLODIPine 5 MG TAB PO SCH (09:00)
[2017-08-15] MEDS: BUDESONIDE EC 3 MG CAP (ENTOCORT EC) PO SCH (12:08)
[2017-08-15] MEDS: SODIUM CHLORIDE 0.9% INJ 10 ML SYR IV PRN (12:13)
[2017-08-15] MEDS: ONDANSETRON 4MG/2ML VIAL (J2405) IV PRN (12:13)
[2017-08-15 12:58] LABS: INR 1.12
--- NOTE | 2017-08-15 14:17 | IPN ---
DATE: 08/15/2017 Ms. Mendosa is feeling well. She has no complaints of pain, chest pain, shortness of breath. She is feeling a little weak and would like to get some physical therapy (PT). Temperature 97.3, pulse 51, respiratory rate 18, blood pressure 139/73, 99% on room air. Awake, appropriately interactive, pleasantly conversant. Mucous membranes are moist. Neck is supple. Breathing is symmetrical and rested. Heart is regular rate and rhythm. Abdomen is soft, doughy, nontender. White cell count 5.2, hemoglobin 9.6, platelets of 97. BUN 21, creatinine 1.18. ASSESSMENT: This is a 62-year-old with hypertensive urgency. PLAN: 1. Cardiovascular. The patient is on amlodipine and hydralazine and is off metoprolol. She has been followed by Dr. Tsai as an outpatient. I have a phone call out to him to figure out what he would like her on as an appropriate outpatient regimen. What she is on right now is probably not the best outpatient management. 2. The patient has myelofibrosis, status post stem cell transplant. On tacrolimus. On prophylaxis fluconazole and Bactrim. Has received IVIG prior to this event. 3. The patient has history of atrial fibrillation and is not on anticoagulation. 4. The patient is seeing physical therapy (PT) for deconditioning. 5. The patient has chronic kidney disease stage 3. 6. The patient has chronic anemia and thrombocytopenia.
[2017-08-15] MEDS: oxyCODONE 5MG TAB PO PRN (16:47)
[2017-08-15] MEDS: PROMETHAZINE INJ 25 MG/ML VIAL (J2550) IV PRN (18:21)
[2017-08-15] MEDS: FLUCONAZOLE 100 MG TAB PO SCH (20:46)
[2017-08-15] MEDS: SERTRALINE HCL 50 MG TAB PO SCH (20:46)
[2017-08-15] MEDS ORDERED: fentaNYL 12 MCG/HR PATCH TOP SCH (21:00)
[2017-08-16] VITALS (7 sets, daily range): BP systolic 118–140; BP diastolic 60–82
[2017-08-16] MEDS: hydrALAZINE INJ 20 MG/ML VIAL IV SCH ×6 (01:46→21:40)
[2017-08-16] MEDS: PROMETHAZINE INJ 25 MG/ML VIAL (J2550) IV PRN ×3 (02:05→22:27)
[2017-08-16] MEDS: SODIUM CHLORIDE 0.9% INJ 10 ML SYR IV PRN ×2 (05:32→19:40)
[2017-08-16 06:00] LABS: INR 1.14
[2017-08-16] MEDS: ACYCLOVIR 200 MG CAPSULE PO SCH ×2 (08:06→21:39)
[2017-08-16] MEDS: TACROLIMUS 1 MG CAP (J7507) PO SCH ×2 (08:06→21:39)
[2017-08-16] MEDS: PRAMIPEXOLE (MIRAPEX) 0.125 MG TAB PO SCH ×2 (08:06→21:37)
[2017-08-16] MEDS: BISOPROLOL FUMARATE 5 MG TAB PO SCH ×2 (08:07→21:39)
[2017-08-16] MEDS: PANTOPRAZOLE 40MG TAB (PROTONIX) PO SCH (08:07)
[2017-08-16] MEDS: SENNA 8.6 MG TAB (SENOKOT) PO SCH (08:07)
[2017-08-16] MEDS: amLODIPine 10 MG TAB PO SCH (08:07)
[2017-08-16] MEDS: LISINOPRIL 10 MG TAB PO SCH ×2 (08:07→16:41)
[2017-08-16] MEDS: REPAGLINIDE 0.5 MG PO SCH ×3 (08:07→16:41)
[2017-08-16] MEDS: SODIUM CHLORIDE 0.9% INJ 10 ML SYR IV SCH (08:08)
[2017-08-16] MEDS: BACTRIM 160MG/800MG DS TAB PO SCH (08:12)
[2017-08-16] MEDS: BUDESONIDE EC 3 MG CAP (ENTOCORT EC) PO SCH (10:12)
[2017-08-16] MEDS: oxyBUTYnin *DITROPAN XL* 5 MG TABCR PO SCH (10:12)
--- NOTE | 2017-08-16 18:44 | IPN ---
DATE: 08/16/2017 Ms. Mendosa is feeling well this morning. She has no complaints of pain, chest pain, shortness of breath. She did work with physical therapy yesterday. Describes a felling of jell-o legs. Temperature 99.1, pulse 67, respiratory rate 18, blood pressure 134/62, 99% on room air. Intake and output notable for positive fluid balance of 695. She is awake, appropriate interactive, pleasant and conversant. Mucous membranes are moist. Neck is supple. Breathing is symmetrical. I to E ration is 1 to 3. Heart is regular rate and rhythm. No significant arhythmia. Mediport is accessed in her right upper chest. Abdomen is soft, doughy, nontender. White cell count 5.2, hemoglobin 9.6, platelets of 97. BUN 21, creatinine 1.18. ASSESSMENT: This is a 62-year-old with hypertensive urgency. PLAN: 1. Cardiovascular. Restarted the patient on an appropriate antihypertensive regimen including Norvasc, bisoprolol and MANJU inhibitor. Monitor her clinically in PCU for another 24 hours. She may require IV hydralazine. If that is unlikely she can be transferred to med-surg tomorrow. 2. The patient has myelofibrosis, status post stem cell transplant. Has received IVIG prior to this event. Restarting her home meds. 3. The patient has history of atrial fibrillation and is not anticoagulated intentionally. She is also rate controlled. 4. The patient has been picked up by physical therapy (PT) for deconditioning. 5. The patient has chronic kidney disease stage 3. 6. The patient has chronic anemia and thrombocytopenia. History of orthostasis. Dr. Tsai has suggested that I do check orthostatic blood pressures during her stay.
[2017-08-16] MEDS: ONDANSETRON 4MG/2ML VIAL (J2405) IV PRN (19:40)
[2017-08-16] MEDS: oxyCODONE 5MG TAB PO PRN (21:38)
[2017-08-16] MEDS: FLUCONAZOLE 100 MG TAB PO SCH (21:39)
[2017-08-16] MEDS: SERTRALINE HCL 50 MG TAB PO SCH (21:39)
[2017-08-17] VITALS (8 sets, daily range): BP systolic 126–174; BP diastolic 70–98
[2017-08-17] MEDS: hydrALAZINE INJ 20 MG/ML VIAL IV SCH ×3 (02:00→10:00)
[2017-08-17] MEDS: PROMETHAZINE INJ 25 MG/ML VIAL (J2550) IV PRN ×2 (06:11→14:42)
[2017-08-17] MEDS: ACETAMINOPHEN TAB 650MG DOSE (2X325MG) PO PRN ×2 (06:11→12:01)
[2017-08-17 06:32] LABS: INR 1.2
[2017-08-17] MEDS: ACYCLOVIR 200 MG CAPSULE PO SCH ×2 (08:27→21:28)
[2017-08-17] MEDS: PRAMIPEXOLE (MIRAPEX) 0.125 MG TAB PO SCH ×2 (08:27→21:28)
[2017-08-17] MEDS: BUDESONIDE EC 3 MG CAP (ENTOCORT EC) PO SCH (08:27)
[2017-08-17] MEDS: PANTOPRAZOLE 40MG TAB (PROTONIX) PO SCH (08:27)
[2017-08-17] MEDS: SENNA 8.6 MG TAB (SENOKOT) PO SCH (08:27)
[2017-08-17] MEDS: REPAGLINIDE 0.5 MG PO SCH ×3 (08:27→17:30)
[2017-08-17] MEDS: oxyBUTYnin *DITROPAN XL* 5 MG TABCR PO SCH (08:27)
[2017-08-17] MEDS: TACROLIMUS 1 MG CAP (J7507) PO SCH ×2 (08:28→21:29)
[2017-08-17] MEDS: LISINOPRIL 10 MG TAB PO SCH ×2 (08:28→17:30)
[2017-08-17] MEDS: amLODIPine 10 MG TAB PO SCH (08:28)
[2017-08-17] MEDS: SODIUM CHLORIDE 0.9% INJ 10 ML SYR IV SCH (08:29)
[2017-08-17] MEDS: BISOPROLOL FUMARATE 5 MG TAB PO SCH ×2 (08:29→19:03)
[2017-08-17 08:35] LABS: MEAN CORPUSCULAR HEMOGLOBIN 35.3 pg (27.0-33.0); MEAN CORPUSCULAR HGB CONC 35.5 g/dl (32.0-36.5); MEAN CORPUSCULAR VOLUME 99.6 fl (80.0-96.0); RED CELL DISTRIBUTION WIDTH 14.6 % (11.5-14.5); WHITE BLOOD COUNT 5.2 10^3/uL (4.0-10.0)
[2017-08-17 08:39] LABS: IMMATURE PLATELET FRACTION % 2.6 % (0.0-9.6)
[2017-08-17 09:50] LABS: CALCIUM LEVEL 9.3 MG/DL (8.8-10.2); CREATININE FOR GFR 1.2 MG/DL (0.55-1.02); GLOMERULAR FILTRATION RATE 48.8 (>45); MAGNESIUM LEVEL 1.5 MG/DL (1.8-2.4)
[2017-08-17] MEDS: MAG SULF 1GM/100ML (MAG RUN) 1 GM in APPROPRIATE DILUENT 1 EA IV SCH ×2 (10:25→11:57)
[2017-08-17] MEDS ORDERED: AMLO10TA2 PO (12:22)
[2017-08-17] MEDS ORDERED: LISI10TA4 PO (12:22)
[2017-08-17] MEDS ORDERED: PROM12.55 PO (12:22)
[2017-08-17] MEDS ORDERED: BISO5TAB5 PO (12:22)
[2017-08-17] MEDS: SODIUM CHLORIDE 0.9% INJ 10 ML SYR IV PRN (14:43)
--- NOTE | 2017-08-17 15:00 | IPN ---
DATE: 08/17/2017 Ms. Mendosa is feeling well today. Has no complaints of pain, chest pain, shortness of breath. Is still more tired than her baseline. Has done relatively well with physical therapy. Was working closely with her with physical therapy yesterday. Blood pressure has been reasonably well controlled. Temperature 97.8, pulse 97, respiratory rate 18, blood pressure 126/80, 98% on room air. Intake and output notable for positive fluid balance of 260. Weight is 88.2 kg. Body Mass Index (BMI) 32.4. She is awake, appropriate interactive, pleasantly conversant. No acute distress. Breathing is symmetrical and rested. I:E ratio is 1 to 3. Heart is distant sounding. Normal S1, S2. No significant arhythmia. Abdomen is soft, doughy, nontender. White cell count 5.2, hemoglobin 9.4, platelets of 93. BUN 15, creatinine 1.2. ASSESSMENT: This is a 62-year-old with hypertensive urgency. PLAN: 1. Cardiovascular. The patient's blood pressure is reasonably well controlled in the current setting. The plan will be to send her home on these medications. She can be transferred out of the progressive care unit (PCU) to medical/surgical. We discussed the possibility of going home today. After further discussion with the patient and her , they think that she would do better with another day stay in the hospital as they are uncomfortable with her level of function. Given her comorbidities, I believe it is pederson to defer to the family's insight. 2. The patient has myelofibrosis, status post stem cell transplant. Has received IVIG prior to this event, which likely played some role in her presentation. 3. The patient has history of atrial fibrillation and did go into atrial fibrillation briefly last night. She is intentionally not anticoagulated and she is currently rate controlled using Zebeta. 4. The patient has been seen by physical therapy. 5. The patient has chronic kidney disease stage 3. 6. The patient has chronic anemia and thrombocytopenia. She has a history of orthostasis. She is not currently orthostatic.
--- NOTE | 2017-08-17 15:24 | ECGEPIP ---
Stationary ECG Study [facility] Test Date: 2017-08-16 Pat Name: ROLAND ASHFORD Department: Room: [place] [address] Gender: F Track Maintainer: ANNMARIE : 1955 Requested By: JOSIANE AMES Order Number: [id number] Reading MD: Tawanna Hilton Measurements Intervals [place] Rate: 93 P: NC: 0 QRS: -16 QRSD: 98 T: 26 QT: 366 QTc: 455 Interpretive Statements ATRIAL FIBRILLATION NONSPECIFIC ST & T-WAVE ABNORMALITY ABNORMAL RHYTHM ECG LOW VOLTAGE LIMB LEAD PRWP CIMILAR TO 08/13/17 Electronically Signed On 08-17-2017 15:24:03 EDT by Tawanna Hilton
[2017-08-17] MEDS: ONDANSETRON 4MG/2ML VIAL (J2405) IV PRN (21:28)
[2017-08-17] MEDS: FLUCONAZOLE 100 MG TAB PO SCH (21:28)
[2017-08-17] MEDS: SERTRALINE HCL 50 MG TAB PO SCH (21:29)
[2017-08-17] MEDS: oxyCODONE 5MG TAB PO PRN (21:29)
[2017-08-18 05:20] VITALS: BP 162/82
[2017-08-18 05:47] LABS: MEAN CORPUSCULAR HEMOGLOBIN 34.6 pg (27.0-33.0); MEAN CORPUSCULAR HGB CONC 34.6 g/dl (32.0-36.5); RED CELL DISTRIBUTION WIDTH 14.1 % (11.5-14.5); WHITE BLOOD COUNT 4.3 10^3/uL (4.0-10.0)
[2017-08-18 06:00] LABS: INR 1.1
[2017-08-18] MEDS ORDERED: **hydrALAZINE** 10 MG TAB PO ONE ×2 (06:00→12:30)
[2017-08-18 06:05] LABS: CALCIUM LEVEL 8.9 MG/DL (8.8-10.2); CREATININE FOR GFR 1.09 MG/DL (0.55-1.02); GLOMERULAR FILTRATION RATE 54.5 (>45); POTASSIUM SERUM 3.9 MEQ/L (3.5-5.1)
[2017-08-18 06:45] VITALS: BP 165/82
[2017-08-18] MEDS: ACYCLOVIR 200 MG CAPSULE PO SCH (09:00)
[2017-08-18] MEDS: PANTOPRAZOLE 40MG TAB (PROTONIX) PO SCH (09:00)
[2017-08-18] MEDS: BUDESONIDE EC 3 MG CAP (ENTOCORT EC) PO SCH (09:00)
[2017-08-18] MEDS: TACROLIMUS 1 MG CAP (J7507) PO SCH (09:00)
[2017-08-18] MEDS: SENNA 8.6 MG TAB (SENOKOT) PO SCH (09:00)
[2017-08-18] MEDS: oxyBUTYnin *DITROPAN XL* 5 MG TABCR PO SCH (09:00)
[2017-08-18] MEDS: BACTRIM 160MG/800MG DS TAB PO SCH (09:01)
[2017-08-18] MEDS: BISOPROLOL FUMARATE 5 MG TAB PO SCH (09:01)
[2017-08-18] MEDS: amLODIPine 10 MG TAB PO SCH (09:01)
[2017-08-18] MEDS: LISINOPRIL 10 MG TAB PO SCH ×2 (09:02→18:04)
[2017-08-18] MEDS: SODIUM CHLORIDE 0.9% INJ 10 ML SYR IV SCH (09:03)
[2017-08-18] MEDS: PRAMIPEXOLE (MIRAPEX) 0.125 MG TAB PO SCH (09:47)
[2017-08-18] MEDS: REPAGLINIDE 0.5 MG PO SCH ×3 (09:47→18:03)
[2017-08-18] MEDS ORDERED: LACTULOSE 20 GM/30 ML SYRUP UD PO PRN (10:45)
[2017-08-18] MEDS: oxyCODONE 5MG TAB PO PRN (11:38)
[2017-08-18 12:30] VITALS: BP_SYST 140; BP_SYST 146; BP_SYST 157; BP_DIAS 79; BP_DIAS 84; BP_DIAS 88
[2017-08-18 14:00] VITALS: BP 150/81
[2017-08-18] MEDS ORDERED: HYDR10TAB PO (15:18)
--- NOTE | 2017-08-18 15:37 | IPN ---
DATE: 08/18/2017 Ms. Mendosa is feeling okay this morning. She has had some headache, which is associated with a blood pressure systolic in the 160s. No complaints of chest pain. No shortness of breath. Temperature is 98.4, pulse 73, respiratory rate 18, blood pressure 165/80. Awake, appropriate interactive, pleasantly conversant. Breathing is symmetrical and rested. Heart is regular rate and rhythm. Distant sounding. She has a access MediPort in her right upper chest. Breathing is symmetrical and rested. Abdomen is soft, doughy, nontender. White cell count 4.3, hemoglobin 9.2, platelets of 89. BUN 17, creatinine 1.09. ASSESSMENT: This is a 62-year-old with hypertensive urgency. PLAN: 1. Cardiovascular. The patient's blood pressure is reasonably well controlled in the current setting, though she has had a headache. The headache is associated with elevated blood pressure, although it is unclear to me whether the headache of the elevated blood pressure came first. It is slightly unusual to have a headache caused by systolic blood pressure in the 160s, but I cannot totally rule that out. I have added hydralazine back into her regimen. Plan is for possible discharge later today. 2. The patient has myelofibrosis, status post stem cell transplant. Plan for a bone marrow biopsy within the next week. There is a call placed by me to the transplant center to discuss the plan with the care team. I did leave a message around noon today and have yet to hear back. 3. The patient has atrial fibrillation, which is paroxysmal and is regular on examination today. She is specifically not anticoagulated due to underlying bone marrow disease. Rate controlled with Zebeta. 4. The patient has been seen by physical therapy. 5. The patient has chronic kidney disease stage 3, appears to be at or better than her baseline. 6. The patient has chronic anemia and thrombocytopenia. She has a history of orthostasis but is not currently orthostatic.
[2017-08-18 18:04] VITALS: BP 144/77
--- NOTE | 2017-09-05 05:26 | DSES ---
DATE OF ADMISSION: 08/15/2017 DATE OF DISCHARGE: 08/18/2017 No specialists were involved in her care. No complications during her stay. No procedures performed during her stay. DISCHARGE DIAGNOSES: 1. Hypertensive urgency. 2. Myelofibrosis status post stem cell transplant. 3. Generalized weakness. 4. Chronic kidney disease stage III. 5. Chronic anemia and thrombocytopenia. The following is a summary of her presentation: This is a 62-year-old with elevated blood pressure and was sent in by her oncologist. She was admitted to the hospitalist service and was treated with amlodipine and hydralazine. Metoprolol was discontinued. She had headache during her stay and was seen by physical therapy. Please see progress note for her condition at discharge. DISCHARGE INSTRUCTIONS: Include the following: Followup with Dr. Tsai 09/01. Followup Sarwat Verdin. Phone number is given to make an appointment. Diet and activity as tolerated. She is given a prescription for: - Norvasc 10 mg by mouth daily - Zebeta 5 mg by mouth twice daily - hydralazine 10 mg by mouth three times daily - lisinopril 10 mg by mouth twice a day Continue: - Tylenol as needed for pain - acyclovir twice daily - Tessalon Perles as needed - budesonide 3 mg by mouth daily - Flexeril 10 mg by mouth three times a day - fentanyl 12 mcg patch topically every 3 days - fluconazole 200 mg by mouth daily at bedtime - lactulose 15 mg by mouth three times a day - lorazepam 1 mg by mouth daily at bedtime - protein supplements twice daily - multivitamin tablet daily - Zofran 4 mg by mouth three times a day - oxybutynin 5 mg by mouth daily - oxycodone 10 mg by mouth every 12 hours as needed for pain - Protonix 40 mg by mouth daily - Mirapex 0.25 mg by mouth daily at bedtime - pramipexole 0.125 mg by mouth daily - promethazine 12.5 mg every 6 hours as needed for nausea - Senokot one tablet by mouth daily - sertraline 50 mg by mouth daily at bedtime - tacrolimus 1 mg by mouth twice daily - torsemide 10 mg by mouth every 2 days - Bactrim one tablet three times a week Monday, Monday, Monday Discontinue Cardizem CD, discontinue metoprolol. Please note I did discuss this case by phone with Dr. Tsai prior to the referral, as well as with her transplant center.
== END 2017-08-18 18:38 | disposition home health service (06) | DRG 305 ==
LOC: M ED 15:26 → M ED INP 22:36 → M PCU 08-14 16:28 → OBSVTOIN 08-15 12:18 → M MSPAV 08-17 18:27
PROVIDERS: ADMIT Internal Medicine; ATTEND Internal Medicine
DX: I16.0 Hypertensive urgency (principal); D75.81 Myelofibrosis; I12.9 Hypertensive chronic kidney disease with stage 1 through stage 4 chronic kidney disease, or unspecified chronic kidney disease; G47.33 Obstructive sleep apnea (adult) (pediatric); N20.0 Calculus of kidney; I48.0 Paroxysmal atrial fibrillation; Z79.899 Other long term (current) drug therapy; Z88.1 Allergy status to other antibiotic agents; Z88.0 Allergy status to penicillin; Z91.018 Allergy to other foods; Z88.8 Allergy status to other drugs, medicaments and biological substances; Z91.041 Radiographic dye allergy status; N18.3 Chronic kidney disease, stage 3 (moderate)

== ENCOUNTER → 2017-08-21 | Outpatient (REF) | payer MEDICARE, OTHER ==
[~2017-08-21] MED LIST changes: +ACYC200C8 PO; +ACYC400T PO; +AMLO10TA2 PO; +ATIV1TAB7 PO; +BACT800T5 PO; +BENZ200C53 PO; +BISO5TAB5 PO; +BUDE3CAP PO; +DIFL200T PO; +DILT120C PO; +DILT60TA PO; +DITR5TAB PO; +FENT12PA TOP; +HYDR10TAB PO; +LACT10SO29 PO; +LISI10TA4 PO; +METO100T5 PO; +MG-PTAB PO; +OXYC-403 PO; +PANT40TA2 PO; +PROG1CAP2 PO; +PROM12.55 PO; +REPA1TAB PO; +SENN1TAB10 PO; +SERT-155 PO; +SULFAMETHOXAZOLE-TMP; +TESS100C PO; +[UNRECOGNIZED DRUG - CODE] PO
[2017-08-21 12:14] LABS: BASO % 0.4 % (0.0-1.0); EOS # 0.1 10^3/uL (0.0-0.50); EOS % 2.3 % (0.0-3.0); IMMATURE GRANULOCYTE % 0.2 % (0-0); LYMPH # 1.1 10^3/uL (1.5-4.5); LYMPH % 22.2 % (24.0-44.0); MEAN CORPUSCULAR HGB CONC 35.2 g/dl (32.0-36.5); MEAN CORPUSCULAR VOLUME 99.3 fl (80.0-96.0); MONO # 0.6 10^3/uL (0.0-0.8); MONO % 11.5 % (0.0-5.0); NEUTROPHILS # 3.3 10^3/uL (1.8-7.7); NEUTROPHILS % 63.4 % (36.0-66.0); PLATELET COUNT, AUTOMATED 111 10^3/uL (150-450); RED CELL DISTRIBUTION WIDTH 14.1 % (11.5-14.5); WHITE BLOOD COUNT 5.1 10^3/uL (4.0-10.0)
[2017-08-21 12:36] LABS: ALBUMIN 3.7 GM/DL (3.2-5.2); ALBUMIN/GLOBULIN RATIO 1.48 (1.00-1.93); BILIRUBIN,TOTAL 0.5 MG/DL (0.2-1.0); CALCIUM LEVEL 9.4 MG/DL (8.8-10.2); CREATININE FOR GFR 1.17 MG/DL (0.55-1.02); GLOMERULAR FILTRATION RATE 50.2 (>45); MAGNESIUM LEVEL 1.5 MG/DL (1.8-2.4); TOTAL PROTEIN 6.2 GM/DL (6.4-8.2)
== END ==
LOC: M LAB REF 11:39
PROVIDERS: ATTEND Internal Medicine
DX: Z94.81 Bone marrow transplant status (principal)

== ENCOUNTER → 2017-09-18 | Outpatient (REF) | payer MEDICARE, OTHER ==
[2017-09-18 10:52] LABS: BASO % 0.4 % (0.0-1.0); EOS # 0.1 10^3/uL (0.0-0.50); IMMATURE GRANULOCYTE % 0.2 % (0-0); LYMPH % 21.1 % (24.0-44.0); MEAN CORPUSCULAR HEMOGLOBIN 34.2 pg (27.0-33.0); MEAN CORPUSCULAR HGB CONC 35.3 g/dl (32.0-36.5); MEAN CORPUSCULAR VOLUME 96.9 fl (80.0-96.0); MONO # 0.5 10^3/uL (0.0-0.8); MONO % 10.8 % (0.0-5.0); NEUTROPHILS # 3.2 10^3/uL (1.8-7.7); NEUTROPHILS % 65.5 % (36.0-66.0); PLATELET COUNT, AUTOMATED 105 10^3/uL (150-450); RED CELL DISTRIBUTION WIDTH 13.3 % (11.5-14.5); WHITE BLOOD COUNT 4.9 10^3/uL (4.0-10.0)
[2017-09-18 11:43] LABS: ALBUMIN 3.6 GM/DL (3.2-5.2); ALBUMIN/GLOBULIN RATIO 1.57 (1.00-1.93); BILIRUBIN,TOTAL 0.4 MG/DL (0.2-1.0); CALCIUM LEVEL 9.5 MG/DL (8.8-10.2); CREATININE FOR GFR 1.39 MG/DL (0.55-1.02); GLOMERULAR FILTRATION RATE 41.2 (>45); MAGNESIUM LEVEL 1.9 MG/DL (1.8-2.4); POTASSIUM SERUM 4.2 MEQ/L (3.5-5.1); TOTAL PROTEIN 5.9 GM/DL (6.4-8.2)
== END ==
LOC: M LAB REF 10:28
PROVIDERS: ATTEND Internal Medicine
DX: Z94.81 Bone marrow transplant status (principal)

== ENCOUNTER → 2017-09-25 | Outpatient (REF) | payer MEDICARE, OTHER ==
[2017-09-25 10:16] LABS: BASO % 0.4 % (0.0-1.0); EOS # 0.1 10^3/uL (0.0-0.50); EOS % 2.7 % (0.0-3.0); IMMATURE GRANULOCYTE % 0.2 % (0-0); LYMPH # 1.1 10^3/uL (1.5-4.5); LYMPH % 22.8 % (24.0-44.0); MEAN CORPUSCULAR HEMOGLOBIN 34.6 pg (27.0-33.0); MEAN CORPUSCULAR HGB CONC 36.8 g/dl (32.0-36.5); MEAN CORPUSCULAR VOLUME 94.1 fl (80.0-96.0); MONO # 0.6 10^3/uL (0.0-0.8); MONO % 11.3 % (0.0-5.0); NEUTROPHILS % 62.6 % (36.0-66.0); PLATELET COUNT, AUTOMATED 121 10^3/uL (150-450); RED CELL DISTRIBUTION WIDTH 13.4 % (11.5-14.5); WHITE BLOOD COUNT 4.9 10^3/uL (4.0-10.0)
[2017-09-25 10:35] LABS: ALBUMIN 3.7 GM/DL (3.2-5.2); ALBUMIN/GLOBULIN RATIO 1.68 (1.00-1.93); BILIRUBIN,TOTAL 0.3 MG/DL (0.2-1.0); CALCIUM LEVEL 9.2 MG/DL (8.8-10.2); CREATININE FOR GFR 1.24 MG/DL (0.55-1.02); MAGNESIUM LEVEL 1.7 MG/DL (1.8-2.4); POTASSIUM SERUM 3.9 MEQ/L (3.5-5.1); TOTAL PROTEIN 5.9 GM/DL (6.4-8.2)
== END ==
LOC: M LAB REF 10:07
PROVIDERS: ATTEND Internal Medicine
DX: Z94.81 Bone marrow transplant status (principal)

== ENCOUNTER → 2017-10-05 | Outpatient (REF) | payer MEDICARE, OTHER ==
[2017-10-05 09:28] LABS: BASO % 0.4 % (0.0-1.0); EOS # 0.1 10^3/uL (0.0-0.50); EOS % 1.1 % (0.0-3.0); IMMATURE GRANULOCYTE % 0.2 % (0-0); LYMPH # 1.3 10^3/uL (1.5-4.5); LYMPH % 22.6 % (24.0-44.0); MEAN CORPUSCULAR HEMOGLOBIN 34.2 pg (27.0-33.0); MEAN CORPUSCULAR VOLUME 92.6 fl (80.0-96.0); MONO # 0.5 10^3/uL (0.0-0.8); MONO % 8.9 % (0.0-5.0); NEUTROPHILS # 3.7 10^3/uL (1.8-7.7); NEUTROPHILS % 66.8 % (36.0-66.0); PLATELET COUNT, AUTOMATED 125 10^3/uL (150-450); RED CELL DISTRIBUTION WIDTH 13.6 % (11.5-14.5); WHITE BLOOD COUNT 5.5 10^3/uL (4.0-10.0)
[2017-10-05 09:47] LABS: ALBUMIN 3.5 GM/DL (3.2-5.2); ALBUMIN/GLOBULIN RATIO 1.46 (1.00-1.93); BILIRUBIN,TOTAL 0.3 MG/DL (0.2-1.0); CREATININE FOR GFR 1.3 MG/DL (0.55-1.02); GLOMERULAR FILTRATION RATE 44.5 (>45); MAGNESIUM LEVEL 1.6 MG/DL (1.8-2.4); POTASSIUM SERUM 4.5 MEQ/L (3.5-5.1); TOTAL PROTEIN 5.9 GM/DL (6.4-8.2)
== END ==
LOC: M LAB REF 09:04
PROVIDERS: ATTEND Internal Medicine
DX: Z94.81 Bone marrow transplant status (principal)

== ENCOUNTER → 2017-10-09 | Outpatient (REF) | payer MEDICARE, OTHER ==
[2017-10-09 10:28] LABS: BASO % 0.2 % (0.0-1.0); EOS # 0.1 10^3/uL (0.0-0.50); EOS % 0.9 % (0.0-3.0); IMMATURE GRANULOCYTE % 0.2 % (0-0); LYMPH # 1.1 10^3/uL (1.5-4.5); LYMPH % 21.1 % (24.0-44.0); MEAN CORPUSCULAR HEMOGLOBIN 34.3 pg (27.0-33.0); MEAN CORPUSCULAR HGB CONC 36.4 g/dl (32.0-36.5); MEAN CORPUSCULAR VOLUME 94.2 fl (80.0-96.0); MONO # 0.5 10^3/uL (0.0-0.8); MONO % 9.9 % (0.0-5.0); NEUTROPHILS # 3.6 10^3/uL (1.8-7.7); NEUTROPHILS % 67.7 % (36.0-66.0); PLATELET COUNT, AUTOMATED 129 10^3/uL (150-450); RED CELL DISTRIBUTION WIDTH 13.7 % (11.5-14.5); WHITE BLOOD COUNT 5.4 10^3/uL (4.0-10.0)
[2017-10-09 10:59] LABS: ALBUMIN 3.5 GM/DL (3.2-5.2); ALBUMIN/GLOBULIN RATIO 1.4 (1.00-1.93); BILIRUBIN,TOTAL 0.3 MG/DL (0.2-1.0); CALCIUM LEVEL 8.9 MG/DL (8.8-10.2); CREATININE FOR GFR 1.26 MG/DL (0.55-1.02); GLOMERULAR FILTRATION RATE 46.1 (>45); MAGNESIUM LEVEL 1.8 MG/DL (1.8-2.4); POTASSIUM SERUM 3.8 MEQ/L (3.5-5.1)
== END ==
LOC: M LAB REF 09:33
PROVIDERS: ATTEND Internal Medicine
DX: Z94.81 Bone marrow transplant status (principal)

== ENCOUNTER → 2017-10-16 | Outpatient (REF) | payer MEDICARE, OTHER ==
[2017-10-16 16:02] LABS: BASO % 0.3 % (0.0-1.0); EOS % 0.3 % (0.0-3.0); IMMATURE GRANULOCYTE % 0.3 % (0-0); LYMPH # 1.1 10^3/uL (1.5-4.5); LYMPH % 18.6 % (24.0-44.0); MEAN CORPUSCULAR HEMOGLOBIN 34.4 pg (27.0-33.0); MEAN CORPUSCULAR VOLUME 94.2 fl (80.0-96.0); MONO # 0.5 10^3/uL (0.0-0.8); MONO % 7.7 % (0.0-5.0); NEUTROPHILS # 4.2 10^3/uL (1.8-7.7); NEUTROPHILS % 72.8 % (36.0-66.0); PLATELET COUNT, AUTOMATED 138 10^3/uL (150-450); WHITE BLOOD COUNT 5.8 10^3/uL (4.0-10.0)
[2017-10-16 16:03] LABS: MEAN CORPUSCULAR HGB CONC 36.6 g/dl (32.0-36.5)
[2017-10-16 16:05] LABS: ALBUMIN 3.8 GM/DL (3.2-5.2); ALBUMIN/GLOBULIN RATIO 1.52 (1.00-1.93); BILIRUBIN,TOTAL 0.4 MG/DL (0.2-1.0); CALCIUM LEVEL 9.3 MG/DL (8.8-10.2); CREATININE FOR GFR 1.32 MG/DL (0.55-1.02); GLOMERULAR FILTRATION RATE 43.7 (>45); POTASSIUM SERUM 4.1 MEQ/L (3.5-5.1); TOTAL PROTEIN 6.3 GM/DL (6.4-8.2)
== END ==
LOC: M LAB REF 14:59
PROVIDERS: ATTEND Internal Medicine
DX: Z94.81 Bone marrow transplant status (principal); E83.42 Hypomagnesemia

== ENCOUNTER → 2017-10-16 | Outpatient (REF) | payer MEDICARE, OTHER ==
[2017-10-16 16:02] LABS: CALCIUM LEVEL 9.5 MG/DL (8.8-10.2); CREATININE FOR GFR 1.39 MG/DL (0.55-1.02); GLOMERULAR FILTRATION RATE 41.2 (>45); MAGNESIUM LEVEL 2.1 MG/DL (1.8-2.4); POTASSIUM SERUM 4.2 MEQ/L (3.5-5.1)
== END ==
LOC: M LAB REF 15:02
PROVIDERS: ATTEND Internal Medicine Cardiovascular Disease
DX: E83.42 Hypomagnesemia (principal); Z94.81 Bone marrow transplant status

== ENCOUNTER → 2017-10-23 | Outpatient (REF) | payer MEDICARE, OTHER ==
[~2017-10-23] MED LIST changes: +DEXA0.5E2 PO; +EDARBYCLOR; +RANI1TAB38 PO
[2017-10-23 10:57] LABS: IMMATURE GRANULOCYTE % 0.2 % (0-0); LYMPH % 23.2 % (24.0-44.0); MEAN CORPUSCULAR HEMOGLOBIN 34.4 pg (27.0-33.0); MEAN CORPUSCULAR HGB CONC 36.3 g/dl (32.0-36.5); MEAN CORPUSCULAR VOLUME 94.6 fl (80.0-96.0); MONO # 0.5 10^3/uL (0.0-0.8); MONO % 11.6 % (0.0-5.0); NEUTROPHILS # 2.6 10^3/uL (1.8-7.7); PLATELET COUNT, AUTOMATED 119 10^3/uL (150-450); RED CELL DISTRIBUTION WIDTH 14.4 % (11.5-14.5); WHITE BLOOD COUNT 4.1 10^3/uL (4.0-10.0)
[2017-10-23 11:26] LABS: ALBUMIN 3.6 GM/DL (3.2-5.2); ALBUMIN/GLOBULIN RATIO 1.57 (1.00-1.93); BILIRUBIN,TOTAL 0.3 MG/DL (0.2-1.0); CREATININE FOR GFR 1.14 MG/DL (0.55-1.02); GLOMERULAR FILTRATION RATE 51.8 (>45); MAGNESIUM LEVEL 2.1 MG/DL (1.8-2.4); POTASSIUM SERUM 3.9 MEQ/L (3.5-5.1); TOTAL PROTEIN 5.9 GM/DL (6.4-8.2)
== END ==
LOC: M LAB REF 10:12
PROVIDERS: ATTEND Internal Medicine
DX: Z94.81 Bone marrow transplant status (principal)

== ENCOUNTER 2017-10-24 17:48 | Emergency (ER) | payer MEDICARE, OTHER ==
[~2017-10-24] VITALS: Ht 165.1 cm; Wt 85.5 kg
[~2017-10-24 17:48] MED LIST changes: -DEXA0.5E2 PO; -EDARBYCLOR; -RANI1TAB38 PO
[2017-10-24] MEDS ORDERED: RANI1TAB38 PO (18:20)
[2017-10-24] MEDS ORDERED: DEXA0.5E2 PO (18:20)
[2017-10-24] MEDS ORDERED: EDARBYCLOR (18:20)
[2017-10-24] MEDS ORDERED: NS 1,000 ML IV SCH (18:45)
[2017-10-24] MEDS ORDERED: ONDANSETRON 4MG/2ML VIAL (J2405) IV ONE (18:45)
[2017-10-24] MEDS ORDERED: ASPIRIN 81 MG CHEW TABLET PO ONE (18:45)
[2017-10-24] MEDS ORDERED: PANTOPRAZOLE 40MG INJ (PROTONIX) (C9113) IV ONE (18:45)
[2017-10-24] MEDS ORDERED: GI COCKTAIL 50ML BTL(HYOSCYAMINE/MAALOX/LIDOCAINE VISCOUS)(1:3:1) PO ONE (18:45)
[2017-10-24 19:15] LABS: BASO % 0.2 % (0.0-1.0); EOS % 0.6 % (0.0-3.0); IMMATURE GRANULOCYTE % 0.3 % (0-0); LYMPH # 1.2 10^3/uL (1.5-4.5); LYMPH % 19.7 % (24.0-44.0); MEAN CORPUSCULAR HEMOGLOBIN 34.5 pg (27.0-33.0); MEAN CORPUSCULAR HGB CONC 36.7 g/dl (32.0-36.5); MEAN CORPUSCULAR VOLUME 93.9 fl (80.0-96.0); MONO # 0.5 10^3/uL (0.0-0.8); MONO % 8.7 % (0.0-5.0); NEUTROPHILS # 4.4 10^3/uL (1.8-7.7); NEUTROPHILS % 70.5 % (36.0-66.0); PLATELET COUNT, AUTOMATED 131 10^3/uL (150-450); RED CELL DISTRIBUTION WIDTH 14.4 % (11.5-14.5); WHITE BLOOD COUNT 6.2 10^3/uL (4.0-10.0)
[2017-10-24 19:17] LABS: INR 1.06
[2017-10-24 19:25] LABS: ALBUMIN 3.6 GM/DL (3.2-5.2); ALKALINE PHOSPHATASE 81 U/L (45-117); ALT/SGPT 34 U/L (12-78); ANION GAP 8 MEQ/L (8-16); AST/SGOT 17 U/L (7-37); BILIRUBIN,DIRECT 0.1 MG/DL (0.0-0.2); BILIRUBIN,TOTAL 0.4 MG/DL (0.2-1.0); BLOOD UREA NITROGEN 44 MG/DL (7-18); CALCIUM LEVEL 9.1 MG/DL (8.8-10.2); CARBON DIOXIDE LEVEL 25 MEQ/L (21-32); CHLORIDE LEVEL 103 MEQ/L (98-107); GLOMERULAR FILTRATION RATE 40.8 (>45); GLUCOSE, FASTING 109 MG/DL (80-110); SODIUM LEVEL 136 MEQ/L (136-145); TOTAL PROTEIN 6.6 GM/DL (6.4-8.2)
[2017-10-24 22:44] VITALS: BP 131/63
--- NOTE | 2017-10-25 17:11 | REP ---
AP PORTABLE CHEST: 10/24/2017 Comparison: 08/13/2017 AP chest, CT chest 09/12/2017. Clinical history: Chest pain. Findings: The lung gerardo are adequately inflated. There is an indwelling right jugular port catheter, unchanged. There is no widening of the mediastinum. Airway intact. Aorta normal for age. Some underlying interstitial changes without parenchymal mass, pleural effusion or dense consolidation. No lateral pleural thickening, apical scarring or pneumothorax. Hilar and mediastinal contours unchanged. Impression: 1. Right jugular port catheter, unchanged with lungs adequately inflated without dense consolidation, pleural effusion, parenchymal mass or other acute finding. The heart is not enlarged. Mediastinal, aortic and airway contours also unremarkable. Some degenerative changes spine and shoulders. Signed by Leonardo Bowser MD 10/25/2017 05:29 P
--- NOTE | 2017-10-25 19:19 | ECGEPIP ---
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
--- NOTE | 2017-10-25 19:21 | ECGEPIP ---
Stationary ECG Study 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
== END 2017-10-24 22:57 | disposition home or self-care (01) ==
LOC: M ED 17:48
DX: K21.9 Gastro-esophageal reflux disease without esophagitis (principal); I10 Essential (primary) hypertension; Z82.49 Family history of ischemic heart disease and other diseases of the circulatory system; Z87.19 Personal history of other diseases of the digestive system; Z79.899 Other long term (current) drug therapy; Z88.0 Allergy status to penicillin; Z88.1 Allergy status to other antibiotic agents; Z88.8 Allergy status to other drugs, medicaments and biological substances; Z91.018 Allergy to other foods; Z91.041 Radiographic dye allergy status
CPT/HCPCS: 71010; 80048; 80076; 82550; 82553; 83690; 84484; 85025; 85610; 93005; 93041; 94760; 96374; 96375; 99285; C9113; J2405

== ENCOUNTER → 2017-10-31 | Outpatient (REF) | payer MEDICARE, OTHER ==
[~2017-10-31] MED LIST changes: +DEXA0.5E2 PO; +EDARBYCLOR; +RANI1TAB38 PO
[2017-10-31 12:22] LABS: BASO % 0.4 % (0.0-1.0); EOS # 0.1 10^3/uL (0.0-0.50); IMMATURE GRANULOCYTE % 0.4 % (0-0); LYMPH % 19.4 % (24.0-44.0); MEAN CORPUSCULAR HEMOGLOBIN 33.8 pg (27.0-33.0); MEAN CORPUSCULAR HGB CONC 35.5 g/dl (32.0-36.5); MEAN CORPUSCULAR VOLUME 95.1 fl (80.0-96.0); MONO # 0.4 10^3/uL (0.0-0.8); MONO % 8.4 % (0.0-5.0); NEUTROPHILS # 3.5 10^3/uL (1.8-7.7); NEUTROPHILS % 70.4 % (36.0-66.0); PLATELET COUNT, AUTOMATED 122 10^3/uL (150-450); RED CELL DISTRIBUTION WIDTH 14.6 % (11.5-14.5); WHITE BLOOD COUNT 4.9 10^3/uL (4.0-10.0)
[2017-10-31 12:41] LABS: ALBUMIN 3.8 GM/DL (3.2-5.2); ALBUMIN/GLOBULIN RATIO 1.58 (1.00-1.93); BILIRUBIN,TOTAL 0.4 MG/DL (0.2-1.0); CALCIUM LEVEL 8.9 MG/DL (8.8-10.2); CREATININE FOR GFR 1.32 MG/DL (0.55-1.02); GLOMERULAR FILTRATION RATE 43.7 (>45); POTASSIUM SERUM 4.1 MEQ/L (3.5-5.1); TOTAL PROTEIN 6.2 GM/DL (6.4-8.2)
== END ==
LOC: M LAB REF 12:09
PROVIDERS: ATTEND Internal Medicine
DX: Z94.81 Bone marrow transplant status (principal)

== ENCOUNTER → 2017-11-13 | Outpatient (REF) | payer MEDICARE, OTHER ==
[2017-11-13 10:53] LABS: BASO % 0.4 % (0.0-1.0); EOS # 0.1 10^3/uL (0.0-0.50); EOS % 2.6 % (0.0-3.0); HEMATOCRIT 25.9 % (36.0-47.0); HEMOGLOBIN 9.4 g/dl (12.0-16.0); IMMATURE GRANULOCYTE % 0.4 % (0-0); LYMPH # 1.1 10^3/uL (1.5-4.5); LYMPH % 21.7 % (24.0-44.0); MEAN CORPUSCULAR HEMOGLOBIN 34.7 pg (27.0-33.0); MEAN CORPUSCULAR HGB CONC 36.3 g/dl (32.0-36.5); MEAN CORPUSCULAR VOLUME 95.6 fl (80.0-96.0); MONO # 0.7 10^3/uL (0.0-0.8); MONO % 13.1 % (0.0-5.0); NEUTROPHILS # 3.1 10^3/uL (1.8-7.7); NEUTROPHILS % 61.8 % (36.0-66.0); PLATELET COUNT, AUTOMATED 124 10^3/uL (150-450); RED BLOOD COUNT 2.71 10^6/uL (4.00-5.40); RED CELL DISTRIBUTION WIDTH 14.6 % (11.5-14.5)
[2017-11-13 11:19] LABS: ALBUMIN 3.5 GM/DL (3.2-5.2); ALBUMIN/GLOBULIN RATIO 1.52 (1.00-1.93); ALKALINE PHOSPHATASE 75 U/L (45-117); ALT/SGPT 28 U/L (12-78); ANION GAP 6 MEQ/L (8-16); AST/SGOT 19 U/L (7-37); BILIRUBIN,TOTAL 0.3 MG/DL (0.2-1.0); BLOOD UREA NITROGEN 32 MG/DL (7-18); CALCIUM LEVEL 9.1 MG/DL (8.8-10.2); CARBON DIOXIDE LEVEL 30 MEQ/L (21-32); CHLORIDE LEVEL 100 MEQ/L (98-107); CREATININE FOR GFR 1.24 MG/DL (0.55-1.02); GLUCOSE, FASTING 95 MG/DL (80-110); LDH LACTATE DEHYDROGENASE 184 U/L (84-246); MAGNESIUM LEVEL 1.9 MG/DL (1.8-2.4); SODIUM LEVEL 136 MEQ/L (136-145); TOTAL PROTEIN 5.8 GM/DL (6.4-8.2)
== END ==
LOC: M LAB REF 10:29
DX: Z94.81 Bone marrow transplant status (principal)
CPT/HCPCS: 83615

== ENCOUNTER → 2017-11-21 | Outpatient (REF) | payer MEDICARE, OTHER ==
[2017-11-21 09:15] LABS: BASO % 0.4 % (0.0-1.0); EOS # 0.2 10^3/uL (0.0-0.50); EOS % 2.8 % (0.0-3.0); HEMATOCRIT 24.7 % (36.0-47.0); HEMOGLOBIN 8.9 g/dl (12.0-16.0); IMMATURE GRANULOCYTE % 0.6 % (0-0); LYMPH # 1.2 10^3/uL (1.5-4.5); LYMPH % 22.3 % (24.0-44.0); MEAN CORPUSCULAR HEMOGLOBIN 34.5 pg (27.0-33.0); MEAN CORPUSCULAR VOLUME 95.7 fl (80.0-96.0); MONO # 0.5 10^3/uL (0.0-0.8); MONO % 10.2 % (0.0-5.0); NEUTROPHILS # 3.4 10^3/uL (1.8-7.7); NEUTROPHILS % 63.7 % (36.0-66.0); PLATELET COUNT, AUTOMATED 110 10^3/uL (150-450); RED BLOOD COUNT 2.58 10^6/uL (4.00-5.40); RED CELL DISTRIBUTION WIDTH 14.6 % (11.5-14.5); WHITE BLOOD COUNT 5.3 10^3/uL (4.0-10.0)
[2017-11-21 09:44] LABS: ALBUMIN 3.5 GM/DL (3.2-5.2); ALBUMIN/GLOBULIN RATIO 1.59 (1.00-1.93); ALKALINE PHOSPHATASE 76 U/L (45-117); ALT/SGPT 26 U/L (12-78); ANION GAP 6 MEQ/L (8-16); AST/SGOT 16 U/L (7-37); BILIRUBIN,TOTAL 0.2 MG/DL (0.2-1.0); BLOOD UREA NITROGEN 32 MG/DL (7-18); CALCIUM LEVEL 9.2 MG/DL (8.8-10.2); CARBON DIOXIDE LEVEL 29 MEQ/L (21-32); CHLORIDE LEVEL 100 MEQ/L (98-107); CREATININE FOR GFR 1.32 MG/DL (0.55-1.02); GLOMERULAR FILTRATION RATE 43.7 (>45); GLUCOSE, FASTING 93 MG/DL (80-110); LDH LACTATE DEHYDROGENASE 174 U/L (84-246); POTASSIUM SERUM 4.2 MEQ/L (3.5-5.1); SODIUM LEVEL 135 MEQ/L (136-145); TOTAL PROTEIN 5.7 GM/DL (6.4-8.2)
== END ==
LOC: M LAB REF 09:06
DX: Z94.81 Bone marrow transplant status (principal)
CPT/HCPCS: 83615

== ENCOUNTER → 2017-11-27 | Outpatient (REF) | payer MEDICARE, OTHER ==
[2017-11-27 11:05] LABS: BASO % 0.4 % (0.0-1.0); EOS # 0.3 10^3/uL (0.0-0.50); EOS % 5.3 % (0.0-3.0); HEMATOCRIT 26.1 % (36.0-47.0); HEMOGLOBIN 9.2 g/dl (12.0-16.0); IMMATURE GRANULOCYTE % 0.4 % (0-0); LYMPH % 20.5 % (24.0-44.0); MEAN CORPUSCULAR HEMOGLOBIN 33.8 pg (27.0-33.0); MEAN CORPUSCULAR HGB CONC 35.2 g/dl (32.0-36.5); MONO # 0.5 10^3/uL (0.0-0.8); MONO % 10.4 % (0.0-5.0); PLATELET COUNT, AUTOMATED 134 10^3/uL (150-450); RED BLOOD COUNT 2.72 10^6/uL (4.00-5.40); RED CELL DISTRIBUTION WIDTH 14.7 % (11.5-14.5); WHITE BLOOD COUNT 4.7 10^3/uL (4.0-10.0)
[2017-11-27 11:21] LABS: ALBUMIN 3.6 GM/DL (3.2-5.2); ALBUMIN/GLOBULIN RATIO 1.57 (1.00-1.93); ALKALINE PHOSPHATASE 80 U/L (45-117); ALT/SGPT 23 U/L (12-78); ANION GAP 6 MEQ/L (8-16); AST/SGOT 17 U/L (7-37); BILIRUBIN,TOTAL 0.3 MG/DL (0.2-1.0); BLOOD UREA NITROGEN 26 MG/DL (7-18); CARBON DIOXIDE LEVEL 28 MEQ/L (21-32); CHLORIDE LEVEL 102 MEQ/L (98-107); CREATININE FOR GFR 1.26 MG/DL (0.55-1.02); GLOMERULAR FILTRATION RATE 46.1 (>45); GLUCOSE, FASTING 91 MG/DL (80-110); LDH LACTATE DEHYDROGENASE 235 U/L (84-246); MAGNESIUM LEVEL 1.8 MG/DL (1.8-2.4); POTASSIUM SERUM 4.4 MEQ/L (3.5-5.1); SODIUM LEVEL 136 MEQ/L (136-145); TOTAL PROTEIN 5.9 GM/DL (6.4-8.2)
== END ==
LOC: M LAB REF 10:40
DX: Z94.81 Bone marrow transplant status (principal)
CPT/HCPCS: 83615

== ENCOUNTER → 2017-12-04 | Outpatient (REF) | payer MEDICARE, OTHER ==
[2017-12-04 09:29] LABS: BASO % 0.6 % (0.0-1.0); EOS # 0.2 10^3/uL (0.0-0.50); EOS % 6.6 % (0.0-3.0); HEMOGLOBIN 8.7 g/dl (12.0-16.0); IMMATURE GRANULOCYTE % 0.3 % (0-0); LYMPH # 0.9 10^3/uL (1.5-4.5); LYMPH % 25.1 % (24.0-44.0); MEAN CORPUSCULAR HEMOGLOBIN 34.4 pg (27.0-33.0); MEAN CORPUSCULAR HGB CONC 34.8 g/dl (32.0-36.5); MEAN CORPUSCULAR VOLUME 98.8 fl (80.0-96.0); MONO # 0.6 10^3/uL (0.0-0.8); MONO % 18.5 % (0.0-5.0); NEUTROPHILS # 1.7 10^3/uL (1.8-7.7); NEUTROPHILS % 48.9 % (36.0-66.0); PLATELET COUNT, AUTOMATED 101 10^3/uL (150-450); RED BLOOD COUNT 2.53 10^6/uL (4.00-5.40); RED CELL DISTRIBUTION WIDTH 14.9 % (11.5-14.5); WHITE BLOOD COUNT 3.5 10^3/uL (4.0-10.0)
[2017-12-04 10:02] LABS: ALBUMIN 3.4 GM/DL (3.2-5.2); ALBUMIN/GLOBULIN RATIO 1.31 (1.00-1.93); ALKALINE PHOSPHATASE 65 U/L (45-117); ALT/SGPT 43 U/L (12-78); ANION GAP 8 MEQ/L (8-16); AST/SGOT 35 U/L (7-37); BILIRUBIN,TOTAL 0.3 MG/DL (0.2-1.0); BLOOD UREA NITROGEN 27 MG/DL (7-18); CALCIUM LEVEL 8.9 MG/DL (8.8-10.2); CARBON DIOXIDE LEVEL 27 MEQ/L (21-32); CHLORIDE LEVEL 104 MEQ/L (98-107); CREATININE FOR GFR 1.45 MG/DL (0.55-1.30); GLOMERULAR FILTRATION RATE 39.2 (>45); GLUCOSE, FASTING 99 MG/DL (70-100); LDH LACTATE DEHYDROGENASE 175 U/L (84-246); MAGNESIUM LEVEL 1.8 MG/DL (1.8-2.4); POTASSIUM SERUM 3.7 MEQ/L (3.5-5.1); SODIUM LEVEL 139 MEQ/L (136-145)
== END ==
LOC: M LAB REF 09:16
DX: Z94.81 Bone marrow transplant status (principal)
CPT/HCPCS: 83615

== ENCOUNTER → 2017-12-12 | Outpatient (REF) | payer MEDICARE, OTHER ==
[2017-12-12 12:57] LABS: BASO % 0.4 % (0.0-1.0); EOS # 0.3 10^3/uL (0.0-0.50); EOS % 4.8 % (0.0-3.0); HEMATOCRIT 26.4 % (36.0-47.0); HEMOGLOBIN 9.2 g/dl (12.0-16.0); IMMATURE GRANULOCYTE % 0.2 % (0-0); LYMPH # 1.2 10^3/uL (1.5-4.5); LYMPH % 22.2 % (24.0-44.0); MEAN CORPUSCULAR HEMOGLOBIN 34.2 pg (27.0-33.0); MEAN CORPUSCULAR HGB CONC 34.8 g/dl (32.0-36.5); MEAN CORPUSCULAR VOLUME 98.1 fl (80.0-96.0); MONO # 0.7 10^3/uL (0.0-0.8); MONO % 12.7 % (0.0-5.0); NEUTROPHILS # 3.1 10^3/uL (1.8-7.7); NEUTROPHILS % 59.7 % (36.0-66.0); PLATELET COUNT, AUTOMATED 143 10^3/uL (150-450); RED BLOOD COUNT 2.69 10^6/uL (4.00-5.40); RED CELL DISTRIBUTION WIDTH 14.1 % (11.5-14.5); WHITE BLOOD COUNT 5.2 10^3/uL (4.0-10.0)
[2017-12-12 13:12] LABS: ALBUMIN 3.6 GM/DL (3.2-5.2); ALBUMIN/GLOBULIN RATIO 1.44 (1.00-1.93); ALKALINE PHOSPHATASE 70 U/L (45-117); ALT/SGPT 26 U/L (12-78); ANION GAP 7 MEQ/L (8-16); AST/SGOT 18 U/L (7-37); BILIRUBIN,TOTAL 0.4 MG/DL (0.2-1.0); BLOOD UREA NITROGEN 27 MG/DL (7-18); CALCIUM LEVEL 8.8 MG/DL (8.8-10.2); CARBON DIOXIDE LEVEL 29 MEQ/L (21-32); CHLORIDE LEVEL 101 MEQ/L (98-107); CREATININE FOR GFR 1.27 MG/DL (0.55-1.30); GLOMERULAR FILTRATION RATE 45.7 (>45); GLUCOSE, FASTING 102 MG/DL (70-100); LDH LACTATE DEHYDROGENASE 160 U/L (84-246); MAGNESIUM LEVEL 1.7 MG/DL (1.8-2.4); POTASSIUM SERUM 3.7 MEQ/L (3.5-5.1); SODIUM LEVEL 137 MEQ/L (136-145); TOTAL PROTEIN 6.1 GM/DL (6.4-8.2)
== END ==
LOC: M LAB REF 12:26
DX: Z94.81 Bone marrow transplant status (principal)
CPT/HCPCS: 83615

== ENCOUNTER → 2017-12-18 | Outpatient (REF) | payer MEDICARE, OTHER ==
[2017-12-18 11:38] LABS: BASO % 0.6 % (0.0-1.0); EOS # 0.3 10^3/uL (0.0-0.50); EOS % 5.7 % (0.0-3.0); HEMATOCRIT 26.3 % (36.0-47.0); HEMOGLOBIN 9.2 g/dl (12.0-16.0); IMMATURE GRANULOCYTE % 0.2 % (0-3.0); LYMPH # 1.3 10^3/uL (1.5-4.5); LYMPH % 24.7 % (24.0-44.0); MEAN CORPUSCULAR HEMOGLOBIN 34.3 pg (27.0-33.0); MEAN CORPUSCULAR VOLUME 98.1 fl (80.0-96.0); MONO # 0.7 10^3/uL (0.0-0.8); MONO % 14.3 % (0.0-5.0); NEUTROPHILS # 2.8 10^3/uL (1.8-7.7); NEUTROPHILS % 54.5 % (36.0-66.0); PLATELET COUNT, AUTOMATED 139 10^3/uL (150-450); RED BLOOD COUNT 2.68 10^6/uL (4.00-5.40); RED CELL DISTRIBUTION WIDTH 14.2 % (11.5-14.5); WHITE BLOOD COUNT 5.1 10^3/uL (4.0-10.0)
[2017-12-18 11:51] LABS: ALBUMIN 3.9 GM/DL (3.2-5.2); ALBUMIN/GLOBULIN RATIO 1.63 (1.00-1.93); ALKALINE PHOSPHATASE 65 U/L (45-117); ALT/SGPT 55 U/L (12-78); ANION GAP 10 MEQ/L (8-16); AST/SGOT 35 U/L (7-37); BILIRUBIN,TOTAL 0.4 MG/DL (0.2-1.0); BLOOD UREA NITROGEN 38 MG/DL (7-18); CALCIUM LEVEL 9.1 MG/DL (8.8-10.2); CARBON DIOXIDE LEVEL 25 MEQ/L (21-32); CHLORIDE LEVEL 105 MEQ/L (98-107); CREATININE FOR GFR 1.42 MG/DL (0.55-1.30); GLOMERULAR FILTRATION RATE 40.2 (>45); GLUCOSE, FASTING 85 MG/DL (70-100); LDH LACTATE DEHYDROGENASE 170 U/L (84-246); MAGNESIUM LEVEL 1.8 MG/DL (1.8-2.4); POTASSIUM SERUM 3.8 MEQ/L (3.5-5.1); SODIUM LEVEL 140 MEQ/L (136-145); TOTAL PROTEIN 6.3 GM/DL (6.4-8.2)
== END ==
LOC: M LAB REF 11:19
DX: Z94.81 Bone marrow transplant status (principal)
CPT/HCPCS: 83615

== ENCOUNTER → 2017-12-25 | Outpatient (REF) | payer MEDICARE, OTHER ==
[2017-12-25 12:41] LABS: BASO % 0.4 % (0.0-1.0); EOS # 0.4 10^3/uL (0.0-0.50); EOS % 6.6 % (0.0-3.0); HEMATOCRIT 27.3 % (36.0-47.0); HEMOGLOBIN 9.6 g/dl (12.0-16.0); IMMATURE GRANULOCYTE % 0.2 % (0-3.0); LYMPH # 1.1 10^3/uL (1.5-4.5); LYMPH % 21.6 % (24.0-44.0); MEAN CORPUSCULAR HEMOGLOBIN 34.2 pg (27.0-33.0); MEAN CORPUSCULAR HGB CONC 35.2 g/dl (32.0-36.5); MEAN CORPUSCULAR VOLUME 97.2 fl (80.0-96.0); MONO # 0.6 10^3/uL (0.0-0.8); MONO % 11.6 % (0.0-5.0); NEUTROPHILS # 3.1 10^3/uL (1.8-7.7); NEUTROPHILS % 59.6 % (36.0-66.0); PLATELET COUNT, AUTOMATED 140 10^3/uL (150-450); RED BLOOD COUNT 2.81 10^6/uL (4.00-5.40); RED CELL DISTRIBUTION WIDTH 13.5 % (11.5-14.5); WHITE BLOOD COUNT 5.3 10^3/uL (4.0-10.0)
[2017-12-25 13:17] LABS: ALBUMIN 3.6 GM/DL (3.2-5.2); ALBUMIN/GLOBULIN RATIO 1.33 (1.00-1.93); ALKALINE PHOSPHATASE 71 U/L (45-117); ALT/SGPT 26 U/L (12-78); ANION GAP 8 MEQ/L (8-16); AST/SGOT 18 U/L (7-37); BILIRUBIN,TOTAL 0.3 MG/DL (0.2-1.0); BLOOD UREA NITROGEN 24 MG/DL (7-18); CALCIUM LEVEL 9.2 MG/DL (8.8-10.2); CARBON DIOXIDE LEVEL 29 MEQ/L (21-32); CHLORIDE LEVEL 104 MEQ/L (98-107); CREATININE FOR GFR 1.15 MG/DL (0.55-1.30); GLOMERULAR FILTRATION RATE 51.2 (>45); GLUCOSE, FASTING 84 MG/DL (70-100); LDH LACTATE DEHYDROGENASE 166 U/L (84-246); MAGNESIUM LEVEL 1.8 MG/DL (1.8-2.4); POTASSIUM SERUM 3.9 MEQ/L (3.5-5.1); SODIUM LEVEL 141 MEQ/L (136-145); TOTAL PROTEIN 6.3 GM/DL (6.4-8.2)
== END ==
LOC: M LAB REF 12:23
DX: Z94.81 Bone marrow transplant status (principal)
CPT/HCPCS: 83615

== ENCOUNTER → 2018-01-01 | Outpatient (REF) | payer MEDICARE, OTHER ==
[2018-01-01 13:28] LABS: BASO % 0.4 % (0.0-1.0); EOS # 0.5 10^3/uL (0.0-0.50); EOS % 9.8 % (0.0-3.0); HEMATOCRIT 25.7 % (36.0-47.0); IMMATURE GRANULOCYTE % 0.2 % (0-3.0); LYMPH % 21.8 % (24.0-44.0); MEAN CORPUSCULAR HEMOGLOBIN 34.4 pg (27.0-33.0); MEAN CORPUSCULAR VOLUME 98.1 fl (80.0-96.0); MONO # 0.6 10^3/uL (0.0-0.8); MONO % 11.7 % (0.0-5.0); NEUTROPHILS # 2.7 10^3/uL (1.8-7.7); NEUTROPHILS % 56.1 % (36.0-66.0); PLATELET COUNT, AUTOMATED 116 10^3/uL (150-450); RED BLOOD COUNT 2.62 10^6/uL (4.00-5.40); RED CELL DISTRIBUTION WIDTH 13.7 % (11.5-14.5); WHITE BLOOD COUNT 4.8 10^3/uL (4.0-10.0)
[2018-01-01 13:55] LABS: ALBUMIN 3.5 GM/DL (3.2-5.2); ALKALINE PHOSPHATASE 71 U/L (45-117); ALT/SGPT 25 U/L (12-78); ANION GAP 7 MEQ/L (8-16); AST/SGOT 16 U/L (7-37); BILIRUBIN,TOTAL 0.3 MG/DL (0.2-1.0); BLOOD UREA NITROGEN 28 MG/DL (7-18); CARBON DIOXIDE LEVEL 30 MEQ/L (21-32); CHLORIDE LEVEL 107 MEQ/L (98-107); CREATININE FOR GFR 1.08 MG/DL (0.55-1.30); GLOMERULAR FILTRATION RATE 55.1 (>45); GLUCOSE, FASTING 85 MG/DL (70-100); LDH LACTATE DEHYDROGENASE 177 U/L (84-246); MAGNESIUM LEVEL 1.8 MG/DL (1.8-2.4); POTASSIUM SERUM 3.3 MEQ/L (3.5-5.1); SODIUM LEVEL 144 MEQ/L (136-145)
== END ==
LOC: M LAB REF 13:03
DX: Z94.81 Bone marrow transplant status (principal)
CPT/HCPCS: 83615

== ENCOUNTER → 2018-01-08 | Outpatient (REF) | payer MEDICARE, OTHER ==
[2018-01-08 13:26] LABS: BASO % 0.5 % (0.0-1.0); EOS # 0.7 10^3/uL (0.0-0.50); EOS % 12.2 % (0.0-3.0); HEMATOCRIT 27.2 % (36.0-47.0); HEMOGLOBIN 9.1 g/dl (12.0-16.0); IMMATURE GRANULOCYTE % 0.2 % (0-3.0); LYMPH # 1.2 10^3/uL (1.5-4.5); LYMPH % 21.1 % (24.0-44.0); MEAN CORPUSCULAR HGB CONC 33.5 g/dl (32.0-36.5); MEAN CORPUSCULAR VOLUME 98.6 fl (80.0-96.0); MONO # 0.6 10^3/uL (0.0-0.8); MONO % 10.2 % (0.0-5.0); NEUTROPHILS # 3.1 10^3/uL (1.8-7.7); NEUTROPHILS % 55.8 % (36.0-66.0); PLATELET COUNT, AUTOMATED 144 10^3/uL (150-450); RED BLOOD COUNT 2.76 10^6/uL (4.00-5.40); RED CELL DISTRIBUTION WIDTH 13.7 % (11.5-14.5); WHITE BLOOD COUNT 5.5 10^3/uL (4.0-10.0)
[2018-01-08 13:44] LABS: ALBUMIN 3.5 GM/DL (3.2-5.2); ALBUMIN/GLOBULIN RATIO 1.46 (1.00-1.93); ALKALINE PHOSPHATASE 63 U/L (45-117); ALT/SGPT 25 U/L (12-78); ANION GAP 9 MEQ/L (8-16); AST/SGOT 15 U/L (7-37); BILIRUBIN,TOTAL 0.3 MG/DL (0.2-1.0); BLOOD UREA NITROGEN 27 MG/DL (7-18); CALCIUM LEVEL 8.8 MG/DL (8.8-10.2); CARBON DIOXIDE LEVEL 26 MEQ/L (21-32); CHLORIDE LEVEL 106 MEQ/L (98-107); CREATININE FOR GFR 1.48 MG/DL (0.55-1.30); GLOMERULAR FILTRATION RATE 38.3 (>45); GLUCOSE, FASTING 131 MG/DL (70-100); LDH LACTATE DEHYDROGENASE 168 U/L (84-246); MAGNESIUM LEVEL 1.7 MG/DL (1.8-2.4); POTASSIUM SERUM 4.1 MEQ/L (3.5-5.1); SODIUM LEVEL 141 MEQ/L (136-145); TOTAL PROTEIN 5.9 GM/DL (6.4-8.2)
== END ==
LOC: M LAB REF 12:33
DX: Z94.81 Bone marrow transplant status (principal)
CPT/HCPCS: 83615

== ENCOUNTER → 2018-01-16 | Outpatient (REF) | payer MEDICARE, OTHER ==
[2018-01-16 14:53] LABS: BASO % 0.6 % (0.0-1.0); EOS % 15.9 % (0.0-3.0); HEMATOCRIT 27.8 % (36.0-47.0); HEMOGLOBIN 9.5 g/dl (12.0-16.0); IMMATURE GRANULOCYTE % 0.3 % (0-3.0); LYMPH # 1.5 10^3/uL (1.5-4.5); LYMPH % 23.5 % (24.0-44.0); MEAN CORPUSCULAR HEMOGLOBIN 33.6 pg (27.0-33.0); MEAN CORPUSCULAR HGB CONC 34.2 g/dl (32.0-36.5); MEAN CORPUSCULAR VOLUME 98.2 fl (80.0-96.0); MONO # 0.6 10^3/uL (0.0-0.8); NEUTROPHILS # 3.1 10^3/uL (1.8-7.7); NEUTROPHILS % 50.7 % (36.0-66.0); PLATELET COUNT, AUTOMATED 128 10^3/uL (150-450); RED BLOOD COUNT 2.83 10^6/uL (4.00-5.40); RED CELL DISTRIBUTION WIDTH 13.3 % (11.5-14.5); WHITE BLOOD COUNT 6.2 10^3/uL (4.0-10.0)
[2018-01-16 15:24] LABS: ALBUMIN 3.7 GM/DL (3.2-5.2); ALBUMIN/GLOBULIN RATIO 1.54 (1.00-1.93); ALKALINE PHOSPHATASE 72 U/L (45-117); ALT/SGPT 30 U/L (12-78); ANION GAP 8 MEQ/L (8-16); AST/SGOT 15 U/L (7-37); BILIRUBIN,TOTAL 0.3 MG/DL (0.2-1.0); BLOOD UREA NITROGEN 33 MG/DL (7-18); CALCIUM LEVEL 8.7 MG/DL (8.8-10.2); CARBON DIOXIDE LEVEL 26 MEQ/L (21-32); CHLORIDE LEVEL 105 MEQ/L (98-107); CREATININE FOR GFR 1.26 MG/DL (0.55-1.30); GLOMERULAR FILTRATION RATE 46.1 (>45); GLUCOSE, FASTING 90 MG/DL (70-100); LDH LACTATE DEHYDROGENASE 182 U/L (84-246); MAGNESIUM LEVEL 1.7 MG/DL (1.8-2.4); POTASSIUM SERUM 3.8 MEQ/L (3.5-5.1); SODIUM LEVEL 139 MEQ/L (136-145); TOTAL PROTEIN 6.1 GM/DL (6.4-8.2)
== END ==
LOC: M LAB REF 12:25
DX: Z94.81 Bone marrow transplant status (principal)
CPT/HCPCS: 83615

== ENCOUNTER → 2018-01-22 | Outpatient (REF) | payer MEDICARE, OTHER ==
[2018-01-22 12:48] LABS: BASO % 0.5 % (0.0-1.0); EOS # 1.3 10^3/uL (0.0-0.50); HEMATOCRIT 28.7 % (36.0-47.0); HEMOGLOBIN 9.9 g/dl (12.0-16.0); IMMATURE GRANULOCYTE % 0.2 % (0-3.0); LYMPH # 1.5 10^3/uL (1.5-4.5); LYMPH % 22.6 % (24.0-44.0); MEAN CORPUSCULAR HEMOGLOBIN 33.4 pg (27.0-33.0); MEAN CORPUSCULAR HGB CONC 34.5 g/dl (32.0-36.5); MONO # 0.6 10^3/uL (0.0-0.8); MONO % 9.8 % (0.0-5.0); NEUTROPHILS # 3.2 10^3/uL (1.8-7.7); NEUTROPHILS % 47.8 % (36.0-66.0); PLATELET COUNT, AUTOMATED 124 10^3/uL (150-450); RED BLOOD COUNT 2.96 10^6/uL (4.00-5.40); RED CELL DISTRIBUTION WIDTH 13.3 % (11.5-14.5); WHITE BLOOD COUNT 6.6 10^3/uL (4.0-10.0)
[2018-01-22 13:39] LABS: EOS % 19.1 % (0.0-3.0)
[2018-01-22 13:48] LABS: ALBUMIN 3.7 GM/DL (3.2-5.2); ALBUMIN/GLOBULIN RATIO 1.48 (1.00-1.93); ALKALINE PHOSPHATASE 74 U/L (45-117); ALT/SGPT 29 U/L (12-78); ANION GAP 10 MEQ/L (8-16); AST/SGOT 15 U/L (7-37); BILIRUBIN,TOTAL 0.2 MG/DL (0.2-1.0); BLOOD UREA NITROGEN 36 MG/DL (7-18); CALCIUM LEVEL 8.9 MG/DL (8.8-10.2); CARBON DIOXIDE LEVEL 26 MEQ/L (21-32); CHLORIDE LEVEL 104 MEQ/L (98-107); CREATININE FOR GFR 1.42 MG/DL (0.55-1.30); GLOMERULAR FILTRATION RATE 40.2 (>45); GLUCOSE, FASTING 138 MG/DL (70-100); LDH LACTATE DEHYDROGENASE 162 U/L (84-246); MAGNESIUM LEVEL 2.1 MG/DL (1.8-2.4); POTASSIUM SERUM 4.3 MEQ/L (3.5-5.1); SODIUM LEVEL 140 MEQ/L (136-145); TOTAL PROTEIN 6.2 GM/DL (6.4-8.2)
== END ==
LOC: M LAB REF 12:20
DX: Z94.81 Bone marrow transplant status (principal)
CPT/HCPCS: 83615

== ENCOUNTER → 2018-01-29 | Outpatient (REF) | payer MEDICARE, OTHER ==
[2018-01-29 13:37] LABS: BASO % 0.7 % (0.0-1.0); EOS # 1.1 10^3/uL (0.0-0.50); HEMATOCRIT 27.5 % (36.0-47.0); HEMOGLOBIN 9.3 g/dl (12.0-16.0); IMMATURE GRANULOCYTE % 0.2 % (0-3.0); LYMPH # 1.1 10^3/uL (1.5-4.5); LYMPH % 20.3 % (24.0-44.0); MEAN CORPUSCULAR HEMOGLOBIN 32.4 pg (27.0-33.0); MEAN CORPUSCULAR HGB CONC 33.8 g/dl (32.0-36.5); MEAN CORPUSCULAR VOLUME 95.8 fl (80.0-96.0); MONO # 0.6 10^3/uL (0.0-0.8); NEUTROPHILS # 2.8 10^3/uL (1.8-7.7); NEUTROPHILS % 49.8 % (36.0-66.0); PLATELET COUNT, AUTOMATED 101 10^3/uL (150-450); RED BLOOD COUNT 2.87 10^6/uL (4.00-5.40); RED CELL DISTRIBUTION WIDTH 13.2 % (11.5-14.5); WHITE BLOOD COUNT 5.5 10^3/uL (4.0-10.0)
[2018-01-29 14:06] LABS: ALBUMIN 3.6 GM/DL (3.2-5.2); ALKALINE PHOSPHATASE 70 U/L (45-117); ALT/SGPT 33 U/L (12-78); ANION GAP 7 MEQ/L (8-16); AST/SGOT 19 U/L (7-37); BILIRUBIN,TOTAL 0.3 MG/DL (0.2-1.0); BLOOD UREA NITROGEN 27 MG/DL (7-18); CALCIUM LEVEL 8.7 MG/DL (8.8-10.2); CARBON DIOXIDE LEVEL 29 MEQ/L (21-32); CHLORIDE LEVEL 104 MEQ/L (98-107); CREATININE FOR GFR 1.34 MG/DL (0.55-1.30); GLUCOSE, FASTING 99 MG/DL (70-100); LDH LACTATE DEHYDROGENASE 166 U/L (84-246); MAGNESIUM LEVEL 1.8 MG/DL (1.8-2.4); SODIUM LEVEL 140 MEQ/L (136-145)
== END ==
LOC: M LAB REF 13:07
DX: Z94.81 Bone marrow transplant status (principal)
CPT/HCPCS: 83615

== ENCOUNTER → 2018-02-05 | Outpatient (REF) | payer MEDICARE, OTHER ==
[2018-02-05 13:38] LABS: BASO % 0.5 % (0.0-1.0); EOS # 0.9 10^3/uL (0.0-0.50); EOS % 16.1 % (0.0-3.0); HEMATOCRIT 27.4 % (36.0-47.0); HEMOGLOBIN 9.6 g/dl (12.0-15.5); IMMATURE GRANULOCYTE % 0.2 % (0-3.0); LYMPH # 1.2 10^3/uL (1.5-4.5); MEAN CORPUSCULAR HEMOGLOBIN 32.9 pg (27.0-33.0); MEAN CORPUSCULAR VOLUME 93.8 fl (80.0-96.0); MONO # 0.7 10^3/uL (0.0-0.8); MONO % 11.8 % (0.0-5.0); NEUTROPHILS # 2.8 10^3/uL (1.8-7.7); NEUTROPHILS % 50.4 % (36.0-66.0); RED BLOOD COUNT 2.92 10^6/uL (4.00-5.40); RED CELL DISTRIBUTION WIDTH 13.3 % (11.5-14.5); WHITE BLOOD COUNT 5.5 10^3/uL (4.0-10.0)
[2018-02-05 13:49] LABS: ALBUMIN 3.4 GM/DL (3.2-5.2); ALBUMIN/GLOBULIN RATIO 1.31 (1.00-1.93); ALKALINE PHOSPHATASE 79 U/L (45-117); ALT/SGPT 34 U/L (12-78); ANION GAP 9 MEQ/L (8-16); AST/SGOT 18 U/L (7-37); BILIRUBIN,TOTAL 0.3 MG/DL (0.2-1.0); BLOOD UREA NITROGEN 28 MG/DL (7-18); CALCIUM LEVEL 8.7 MG/DL (8.8-10.2); CARBON DIOXIDE LEVEL 26 MEQ/L (21-32); CHLORIDE LEVEL 101 MEQ/L (98-107); GLOMERULAR FILTRATION RATE 40.8 (>45); GLUCOSE, FASTING 71 MG/DL (70-100); LDH LACTATE DEHYDROGENASE 173 U/L (84-246); MAGNESIUM LEVEL 2.1 MG/DL (1.8-2.4); SODIUM LEVEL 136 MEQ/L (136-145)
[2018-02-05 14:14] LABS: IMMATURE PLATELET FRACTION % 4.3 % (0.0-9.6); PLATELET COUNT, AUTOMATED 90 10^3/uL (150-450)
[2018-02-05 14:15] LABS: PLATELET F 3.5
== END ==
LOC: M LAB REF 12:29
DX: Z94.81 Bone marrow transplant status (principal)
CPT/HCPCS: 83615

== ENCOUNTER → 2018-02-19 | Outpatient (REF) | payer MEDICARE, OTHER ==
[2018-02-19 13:47] LABS: BASO % 0.1 % (0.0-1.0); EOS % 0.1 % (0.0-3.0); HEMATOCRIT 31.3 % (36.0-47.0); HEMOGLOBIN 11.2 g/dl (12.0-15.5); IMMATURE GRANULOCYTE % 0.4 % (0-3.0); MEAN CORPUSCULAR HEMOGLOBIN 32.3 pg (27.0-33.0); MEAN CORPUSCULAR HGB CONC 35.8 g/dl (32.0-36.5); MEAN CORPUSCULAR VOLUME 90.2 fl (80.0-96.0); MONO # 0.3 10^3/uL (0.0-0.8); MONO % 2.9 % (0.0-5.0); NEUTROPHILS # 7.6 10^3/uL (1.8-7.7); NEUTROPHILS % 85.5 % (36.0-66.0); PLATELET COUNT, AUTOMATED 111 10^3/uL (150-450); RED BLOOD COUNT 3.47 10^6/uL (4.00-5.40); RED CELL DISTRIBUTION WIDTH 12.9 % (11.5-14.5); WHITE BLOOD COUNT 8.9 10^3/uL (4.0-10.0)
[2018-02-19 14:32] LABS: ALBUMIN 3.9 GM/DL (3.2-5.2); ALKALINE PHOSPHATASE 79 U/L (45-117); ALT/SGPT 54 U/L (12-78); ANION GAP 8 MEQ/L (8-16); AST/SGOT 20 U/L (7-37); BILIRUBIN,TOTAL 0.3 MG/DL (0.2-1.0); BLOOD UREA NITROGEN 34 MG/DL (7-18); CALCIUM LEVEL 9.4 MG/DL (8.8-10.2); CARBON DIOXIDE LEVEL 26 MEQ/L (21-32); CHLORIDE LEVEL 98 MEQ/L (98-107); GLOMERULAR FILTRATION RATE 44.5 (>45); GLUCOSE, FASTING 172 MG/DL (70-100); LDH LACTATE DEHYDROGENASE 163 U/L (84-246); MAGNESIUM LEVEL 2.1 MG/DL (1.8-2.4); POTASSIUM SERUM 4.6 MEQ/L (3.5-5.1); SODIUM LEVEL 132 MEQ/L (136-145); TOTAL PROTEIN 6.5 GM/DL (6.4-8.2)
== END ==
LOC: M LAB REF 13:18
DX: Z94.81 Bone marrow transplant status (principal)
CPT/HCPCS: 83615

== ENCOUNTER → 2018-03-05 | Outpatient (REF) | payer MEDICARE, OTHER ==
[2018-03-05 13:32] LABS: BASO % 0.1 % (0.0-1.0); EOS % 0.5 % (0.0-3.0); HEMATOCRIT 29.3 % (36.0-47.0); HEMOGLOBIN 10.4 g/dl (12.0-15.5); IMMATURE GRANULOCYTE % 0.3 % (0-3.0); LYMPH # 0.8 10^3/uL (1.5-4.5); MEAN CORPUSCULAR HEMOGLOBIN 32.8 pg (27.0-33.0); MEAN CORPUSCULAR HGB CONC 35.5 g/dl (32.0-36.5); MEAN CORPUSCULAR VOLUME 92.4 fl (80.0-96.0); MONO # 0.5 10^3/uL (0.0-0.8); NEUTROPHILS # 6.3 10^3/uL (1.8-7.7); NEUTROPHILS % 82.1 % (36.0-66.0); RED BLOOD COUNT 3.17 10^6/uL (4.00-5.40); RED CELL DISTRIBUTION WIDTH 13.2 % (11.5-14.5); WHITE BLOOD COUNT 7.7 10^3/uL (4.0-10.0)
[2018-03-05 14:05] LABS: IMMATURE PLATELET FRACTION % 4.2 % (0.0-9.6); PLATELET COUNT, AUTOMATED 61 10^3/uL (150-450)
[2018-03-05 14:09] LABS: ALBUMIN 3.5 GM/DL (3.2-5.2); ALKALINE PHOSPHATASE 72 U/L (45-117); ALT/SGPT 38 U/L (12-78); ANION GAP 9 MEQ/L (8-16); AST/SGOT 13 U/L (7-37); BILIRUBIN,TOTAL 0.3 MG/DL (0.2-1.0); BLOOD UREA NITROGEN 35 MG/DL (7-18); CALCIUM LEVEL 8.8 MG/DL (8.8-10.2); CARBON DIOXIDE LEVEL 23 MEQ/L (21-32); CHLORIDE LEVEL 104 MEQ/L (98-107); CREATININE FOR GFR 1.09 MG/DL (0.55-1.30); GLOMERULAR FILTRATION RATE 54.5 (>45); GLUCOSE, FASTING 141 MG/DL (70-100); LDH LACTATE DEHYDROGENASE 205 U/L (84-246); MAGNESIUM LEVEL 1.9 MG/DL (1.8-2.4); POTASSIUM SERUM 3.8 MEQ/L (3.5-5.1); SODIUM LEVEL 136 MEQ/L (136-145); TOTAL PROTEIN 6.2 GM/DL (6.4-8.2)
== END ==
LOC: M LAB REF 13:18
DX: Z94.81 Bone marrow transplant status (principal)
CPT/HCPCS: 83615

== ENCOUNTER → 2018-03-12 | Outpatient (REF) | payer MEDICARE, OTHER ==
[2018-03-12 15:37] LABS: EOS % 0.4 % (0.0-3.0); HEMATOCRIT 29.6 % (36.0-47.0); HEMOGLOBIN 10.3 g/dl (12.0-15.5); IMMATURE GRANULOCYTE % 0.3 % (0-3.0); MEAN CORPUSCULAR HEMOGLOBIN 32.5 pg (27.0-33.0); MEAN CORPUSCULAR HGB CONC 34.8 g/dl (32.0-36.5); MEAN CORPUSCULAR VOLUME 93.4 fl (80.0-96.0); MONO # 0.4 10^3/uL (0.0-0.8); MONO % 5.6 % (0.0-5.0); NEUTROPHILS # 5.4 10^3/uL (1.8-7.7); NEUTROPHILS % 79.7 % (36.0-66.0); RED BLOOD COUNT 3.17 10^6/uL (4.00-5.40); RED CELL DISTRIBUTION WIDTH 13.8 % (11.5-14.5); WHITE BLOOD COUNT 6.8 10^3/uL (4.0-10.0)
[2018-03-12 15:48] LABS: IMMATURE PLATELET FRACTION % 5.8 % (0.0-9.6); PLATELET COUNT, AUTOMATED 64 10^3/uL (150-450)
[2018-03-12 16:06] LABS: ALBUMIN 3.5 GM/DL (3.2-5.2); ALBUMIN/GLOBULIN RATIO 1.35 (1.00-1.93); ALKALINE PHOSPHATASE 88 U/L (45-117); ALT/SGPT 35 U/L (12-78); ANION GAP 9 MEQ/L (8-16); AST/SGOT 17 U/L (7-37); BILIRUBIN,TOTAL 0.3 MG/DL (0.2-1.0); BLOOD UREA NITROGEN 33 MG/DL (7-18); CALCIUM LEVEL 8.9 MG/DL (8.8-10.2); CARBON DIOXIDE LEVEL 25 MEQ/L (21-32); CHLORIDE LEVEL 101 MEQ/L (98-107); CREATININE FOR GFR 1.07 MG/DL (0.55-1.30); GLOMERULAR FILTRATION RATE 55.7 (>45); GLUCOSE, FASTING 163 MG/DL (70-100); LDH LACTATE DEHYDROGENASE 220 U/L (84-246); MAGNESIUM LEVEL 1.9 MG/DL (1.8-2.4); SODIUM LEVEL 135 MEQ/L (136-145); TOTAL PROTEIN 6.1 GM/DL (6.4-8.2)
== END ==
LOC: M LAB REF 14:48
DX: Z94.81 Bone marrow transplant status (principal)
CPT/HCPCS: 83615

== ENCOUNTER → 2018-03-19 | Outpatient (REF) | payer MEDICARE, OTHER ==
[2018-03-19 14:08] LABS: BASO % 0.1 % (0.0-1.0); EOS % 0.5 % (0.0-3.0); HEMATOCRIT 31.8 % (36.0-47.0); IMMATURE GRANULOCYTE % 0.3 % (0-3.0); LYMPH % 13.3 % (24.0-44.0); MEAN CORPUSCULAR HEMOGLOBIN 32.5 pg (27.0-33.0); MEAN CORPUSCULAR HGB CONC 34.6 g/dl (32.0-36.5); MEAN CORPUSCULAR VOLUME 94.1 fl (80.0-96.0); MONO # 0.5 10^3/uL (0.0-0.8); MONO % 7.4 % (0.0-5.0); NEUTROPHILS # 5.7 10^3/uL (1.8-7.7); NEUTROPHILS % 78.4 % (36.0-66.0); RED BLOOD COUNT 3.38 10^6/uL (4.00-5.40); RED CELL DISTRIBUTION WIDTH 13.8 % (11.5-14.5); WHITE BLOOD COUNT 7.3 10^3/uL (4.0-10.0)
[2018-03-19 14:17] LABS: ALBUMIN 3.6 GM/DL (3.2-5.2); ALBUMIN/GLOBULIN RATIO 1.29 (1.00-1.93); ALKALINE PHOSPHATASE 86 U/L (45-117); ALT/SGPT 38 U/L (12-78); ANION GAP 8 MEQ/L (8-16); AST/SGOT 16 U/L (7-37); BILIRUBIN,TOTAL 0.3 MG/DL (0.2-1.0); BLOOD UREA NITROGEN 30 MG/DL (7-18); CALCIUM LEVEL 9.2 MG/DL (8.8-10.2); CARBON DIOXIDE LEVEL 27 MEQ/L (21-32); CHLORIDE LEVEL 104 MEQ/L (98-107); CREATININE FOR GFR 1.07 MG/DL (0.55-1.30); GLOMERULAR FILTRATION RATE 55.7 (>45); GLUCOSE, FASTING 174 MG/DL (70-100); LDH LACTATE DEHYDROGENASE 226 U/L (84-246); SODIUM LEVEL 139 MEQ/L (136-145); TOTAL PROTEIN 6.4 GM/DL (6.4-8.2)
[2018-03-19 14:22] LABS: PLATELET COUNT, AUTOMATED 61 10^3/uL (150-450)
[2018-03-19 14:24] LABS: IMMATURE PLATELET FRACTION % 4.6 % (0.0-9.6)
== END ==
LOC: M LAB REF 12:52
DX: Z94.81 Bone marrow transplant status (principal)
CPT/HCPCS: 83615

== ENCOUNTER → 2018-03-26 | Outpatient (REF) | payer MEDICARE, OTHER ==
[2018-03-26 13:10] LABS: BASO % 0.3 % (0.0-1.0); EOS # 0.1 10^3/uL (0.0-0.50); HEMATOCRIT 31.3 % (36.0-47.0); HEMOGLOBIN 10.7 g/dl (12.0-15.5); IMMATURE GRANULOCYTE % 0.6 % (0-3.0); LYMPH # 1.5 10^3/uL (1.5-4.5); LYMPH % 20.9 % (24.0-44.0); MEAN CORPUSCULAR HEMOGLOBIN 32.8 pg (27.0-33.0); MEAN CORPUSCULAR HGB CONC 34.2 g/dl (32.0-36.5); MONO # 0.7 10^3/uL (0.0-0.8); MONO % 9.6 % (0.0-5.0); NEUTROPHILS # 4.7 10^3/uL (1.8-7.7); NEUTROPHILS % 67.6 % (36.0-66.0); RED BLOOD COUNT 3.26 10^6/uL (4.00-5.40); RED CELL DISTRIBUTION WIDTH 14.2 % (11.5-14.5)
[2018-03-26 13:38] LABS: PLATELET COUNT, AUTOMATED 67 10^3/uL (150-450)
[2018-03-26 13:39] LABS: IMMATURE PLATELET FRACTION % 5.2 % (0.0-9.6); PLATELET F 3.3
[2018-03-26 13:47] LABS: ALBUMIN 3.6 GM/DL (3.2-5.2); ALBUMIN/GLOBULIN RATIO 1.33 (1.00-1.93); ALKALINE PHOSPHATASE 86 U/L (45-117); ALT/SGPT 36 U/L (12-78); ANION GAP 8 MEQ/L (8-16); AST/SGOT 14 U/L (7-37); BILIRUBIN,TOTAL 0.3 MG/DL (0.2-1.0); BLOOD UREA NITROGEN 35 MG/DL (7-18); CALCIUM LEVEL 8.7 MG/DL (8.8-10.2); CARBON DIOXIDE LEVEL 27 MEQ/L (21-32); CHLORIDE LEVEL 107 MEQ/L (98-107); CREATININE FOR GFR 1.11 MG/DL (0.55-1.30); GLOMERULAR FILTRATION RATE 53.2 (>45); GLUCOSE, FASTING 145 MG/DL (70-100); LDH LACTATE DEHYDROGENASE 229 U/L (84-246); MAGNESIUM LEVEL 2.1 MG/DL (1.8-2.4); POTASSIUM SERUM 3.6 MEQ/L (3.5-5.1); SODIUM LEVEL 142 MEQ/L (136-145); TOTAL PROTEIN 6.3 GM/DL (6.4-8.2)
== END ==
LOC: M LAB REF 12:28
DX: Z94.81 Bone marrow transplant status (principal)
CPT/HCPCS: 83615

== ENCOUNTER → 2018-04-03 | Outpatient (REF) | payer MEDICARE, OTHER ==
[2018-04-03 13:50] LABS: ALBUMIN 3.4 GM/DL (3.2-5.2); ALBUMIN/GLOBULIN RATIO 1.36 (1.00-1.93); ALKALINE PHOSPHATASE 82 U/L (45-117); ALT/SGPT 37 U/L (12-78); ANION GAP 9 MEQ/L (8-16); AST/SGOT 24 U/L (7-37); BILIRUBIN,TOTAL 0.2 MG/DL (0.2-1.0); BLOOD UREA NITROGEN 37 MG/DL (7-18); CARBON DIOXIDE LEVEL 27 MEQ/L (21-32); CHLORIDE LEVEL 104 MEQ/L (98-107); CREATININE FOR GFR 1.24 MG/DL (0.55-1.30); GLOMERULAR FILTRATION RATE 46.8 (>45); GLUCOSE, FASTING 122 MG/DL (70-100); LDH LACTATE DEHYDROGENASE 243 U/L (84-246); MAGNESIUM LEVEL 2.1 MG/DL (1.8-2.4); POTASSIUM SERUM 4.1 MEQ/L (3.5-5.1); SODIUM LEVEL 140 MEQ/L (136-145); TOTAL PROTEIN 5.9 GM/DL (6.4-8.2)
== END ==
LOC: M LAB REF 13:08
DX: Z94.81 Bone marrow transplant status (principal)
CPT/HCPCS: 83615

== ENCOUNTER 2018-04-04 09:16 | Outpatient (REF) | payer MEDICARE, OTHER ==
[2018-04-05 11:24] LABS: BASO % 0.3 % (0.0-1.0); EOS # 0.1 10^3/uL (0.0-0.50); EOS % 1.5 % (0.0-3.0); HEMOGLOBIN 10.4 g/dl (12.0-15.5); IMMATURE GRANULOCYTE % 0.5 % (0-3.0); LYMPH # 1.2 10^3/uL (1.5-4.5); LYMPH % 20.3 % (24.0-44.0); MEAN CORPUSCULAR HEMOGLOBIN 33.2 pg (27.0-33.0); MEAN CORPUSCULAR HGB CONC 33.5 g/dl (32.0-36.5); MONO # 0.5 10^3/uL (0.0-0.8); NEUTROPHILS % 68.4 % (36.0-66.0); RED BLOOD COUNT 3.13 10^6/uL (4.00-5.40); RED CELL DISTRIBUTION WIDTH 15.2 % (11.5-14.5); WHITE BLOOD COUNT 5.9 10^3/uL (4.0-10.0)
[2018-04-05 13:08] LABS: IMMATURE PLATELET FRACTION % 5.6 % (0.0-9.6); PLATELET COUNT, AUTOMATED 48 10^3/uL (150-450)
== END 2018-04-05 ==
LOC: M LAB REF 09:16
DX: Z94.81 Bone marrow transplant status (principal)
CPT/HCPCS: 85049

== ENCOUNTER → 2018-04-09 | Outpatient (REF) | payer MEDICARE, OTHER ==
[2018-04-09 11:54] LABS: BASO % 0.5 % (0.0-1.0); EOS # 0.1 10^3/uL (0.0-0.50); EOS % 1.8 % (0.0-3.0); HEMATOCRIT 29.6 % (36.0-47.0); IMMATURE GRANULOCYTE % 0.2 % (0-3.0); LYMPH # 1.3 10^3/uL (1.5-4.5); LYMPH % 28.8 % (24.0-44.0); MEAN CORPUSCULAR HEMOGLOBIN 32.8 pg (27.0-33.0); MEAN CORPUSCULAR HGB CONC 33.8 g/dl (32.0-36.5); MONO # 0.4 10^3/uL (0.0-0.8); MONO % 9.9 % (0.0-5.0); NEUTROPHILS # 2.6 10^3/uL (1.8-7.7); NEUTROPHILS % 58.8 % (36.0-66.0); RED BLOOD COUNT 3.05 10^6/uL (4.00-5.40); WHITE BLOOD COUNT 4.4 10^3/uL (4.0-10.0)
[2018-04-09 11:57] LABS: PLATELET COUNT, AUTOMATED 51 10^3/uL (150-450)
[2018-04-09 11:58] LABS: IMMATURE PLATELET FRACTION % 5.1 % (0.0-9.6); PLATELET F 49
[2018-04-09 12:23] LABS: ALBUMIN 3.3 GM/DL (3.2-5.2); ALBUMIN/GLOBULIN RATIO 1.32 (1.00-1.93); ALKALINE PHOSPHATASE 86 U/L (45-117); ALT/SGPT 39 U/L (12-78); ANION GAP 8 MEQ/L (8-16); AST/SGOT 17 U/L (7-37); BILIRUBIN,TOTAL 0.2 MG/DL (0.2-1.0); BLOOD UREA NITROGEN 25 MG/DL (7-18); CALCIUM LEVEL 8.7 MG/DL (8.8-10.2); CARBON DIOXIDE LEVEL 27 MEQ/L (21-32); CHLORIDE LEVEL 109 MEQ/L (98-107); CREATININE FOR GFR 1.17 MG/DL (0.55-1.30); GLOMERULAR FILTRATION RATE 50.1 (>45); GLUCOSE, FASTING 128 MG/DL (70-100); LDH LACTATE DEHYDROGENASE 210 U/L (84-246); MAGNESIUM LEVEL 1.8 MG/DL (1.8-2.4); POTASSIUM SERUM 4.1 MEQ/L (3.5-5.1); SODIUM LEVEL 144 MEQ/L (136-145); TOTAL PROTEIN 5.8 GM/DL (6.4-8.2)
== END ==
LOC: M LAB REF 11:39
DX: Z94.81 Bone marrow transplant status (principal)
CPT/HCPCS: 83615

== ENCOUNTER → 2018-04-16 | Outpatient (REF) | payer MEDICARE, OTHER ==
[2018-04-16 11:19] LABS: BASO % 0.6 % (0.0-1.0); EOS # 0.1 10^3/uL (0.0-0.50); EOS % 1.8 % (0.0-3.0); HEMATOCRIT 31.3 % (36.0-47.0); HEMOGLOBIN 10.5 g/dl (12.0-15.5); IMMATURE GRANULOCYTE % 0.4 % (0-3.0); LYMPH # 1.3 10^3/uL (1.5-4.5); LYMPH % 18.6 % (24.0-44.0); MEAN CORPUSCULAR HEMOGLOBIN 32.5 pg (27.0-33.0); MEAN CORPUSCULAR HGB CONC 33.5 g/dl (32.0-36.5); MEAN CORPUSCULAR VOLUME 96.9 fl (80.0-96.0); MONO # 0.6 10^3/uL (0.0-0.8); MONO % 7.9 % (0.0-5.0); NEUTROPHILS # 5.1 10^3/uL (1.8-7.7); NEUTROPHILS % 70.7 % (36.0-66.0); RED BLOOD COUNT 3.23 10^6/uL (4.00-5.40); RED CELL DISTRIBUTION WIDTH 14.9 % (11.5-14.5); WHITE BLOOD COUNT 7.2 10^3/uL (4.0-10.0)
[2018-04-16 11:22] LABS: IMMATURE PLATELET FRACTION % 6.2 % (0.0-9.6); PLATELET COUNT, AUTOMATED 48 10^3/uL (150-450)
[2018-04-16 12:02] LABS: ALBUMIN 3.3 GM/DL (3.2-5.2); ALBUMIN/GLOBULIN RATIO 1.14 (1.00-1.93); ALKALINE PHOSPHATASE 95 U/L (45-117); ALT/SGPT 35 U/L (12-78); ANION GAP 7 MEQ/L (8-16); AST/SGOT 22 U/L (7-37); BILIRUBIN,TOTAL 0.3 MG/DL (0.2-1.0); BLOOD UREA NITROGEN 39 MG/DL (7-18); CALCIUM LEVEL 8.9 MG/DL (8.8-10.2); CARBON DIOXIDE LEVEL 28 MEQ/L (21-32); CHLORIDE LEVEL 105 MEQ/L (98-107); CREATININE FOR GFR 1.39 MG/DL (0.55-1.30); GLUCOSE, FASTING 129 MG/DL (70-100); LDH LACTATE DEHYDROGENASE 277 U/L (84-246); MAGNESIUM LEVEL 1.8 MG/DL (1.8-2.4); POTASSIUM SERUM 4.2 MEQ/L (3.5-5.1); SODIUM LEVEL 140 MEQ/L (136-145); TOTAL PROTEIN 6.2 GM/DL (6.4-8.2)
== END ==
LOC: M LAB REF 11:04
DX: Z94.81 Bone marrow transplant status (principal)
CPT/HCPCS: 83615

== ENCOUNTER → 2018-04-23 | Outpatient (REF) | payer MEDICARE, OTHER ==
[2018-04-23 12:35] LABS: BASO % 0.6 % (0.0-1.0); EOS # 0.1 10^3/uL (0.0-0.50); EOS % 2.1 % (0.0-3.0); HEMATOCRIT 29.9 % (36.0-47.0); HEMOGLOBIN 10.2 g/dl (12.0-15.5); IMMATURE GRANULOCYTE % 0.5 % (0-3.0); LYMPH # 1.7 10^3/uL (1.5-4.5); LYMPH % 25.6 % (24.0-44.0); MEAN CORPUSCULAR HEMOGLOBIN 32.9 pg (27.0-33.0); MEAN CORPUSCULAR HGB CONC 34.1 g/dl (32.0-36.5); MEAN CORPUSCULAR VOLUME 96.5 fl (80.0-96.0); MONO # 0.7 10^3/uL (0.0-0.8); MONO % 10.5 % (0.0-5.0); NEUTROPHILS % 60.7 % (36.0-66.0); RED CELL DISTRIBUTION WIDTH 14.7 % (11.5-14.5); WHITE BLOOD COUNT 6.6 10^3/uL (4.0-10.0)
[2018-04-23 12:38] LABS: PLATELET COUNT, AUTOMATED 42 10^3/uL (150-450)
[2018-04-23 12:40] LABS: IMMATURE PLATELET FRACTION % 8.1 % (0.0-9.6); PLATELET F 37
[2018-04-23 13:42] LABS: ALBUMIN 3.3 GM/DL (3.2-5.2); ALBUMIN/GLOBULIN RATIO 1.22 (1.00-1.93); ALKALINE PHOSPHATASE 89 U/L (45-117); ALT/SGPT 34 U/L (12-78); ANION GAP 13 MEQ/L (8-16); AST/SGOT 18 U/L (7-37); BILIRUBIN,TOTAL 0.3 MG/DL (0.2-1.0); BLOOD UREA NITROGEN 35 MG/DL (7-18); CARBON DIOXIDE LEVEL 24 MEQ/L (21-32); CHLORIDE LEVEL 104 MEQ/L (98-107); CREATININE FOR GFR 1.23 MG/DL (0.55-1.30); GLOMERULAR FILTRATION RATE 47.3 (>45); GLUCOSE, FASTING 151 MG/DL (70-100); LDH LACTATE DEHYDROGENASE 245 U/L (84-246); MAGNESIUM LEVEL 1.6 MG/DL (1.8-2.4); POTASSIUM SERUM 3.7 MEQ/L (3.5-5.1); SODIUM LEVEL 141 MEQ/L (136-145)
== END ==
LOC: M LAB REF 11:41
DX: Z94.81 Bone marrow transplant status (principal)
CPT/HCPCS: 83615

== ENCOUNTER → 2018-04-30 | Outpatient (REF) | payer MEDICARE, OTHER ==
[2018-04-30 13:27] LABS: BASO % 0.5 % (0.0-1.0); EOS # 0.2 10^3/uL (0.0-0.50); EOS % 2.9 % (0.0-3.0); HEMATOCRIT 29.8 % (36.0-47.0); HEMOGLOBIN 10.1 g/dl (12.0-15.5); IMMATURE GRANULOCYTE % 0.5 % (0-3.0); LYMPH # 1.3 10^3/uL (1.5-4.5); LYMPH % 20.9 % (24.0-44.0); MEAN CORPUSCULAR HGB CONC 33.9 g/dl (32.0-36.5); MEAN CORPUSCULAR VOLUME 97.4 fl (80.0-96.0); MONO # 0.6 10^3/uL (0.0-0.8); NEUTROPHILS % 65.2 % (36.0-66.0); RED BLOOD COUNT 3.06 10^6/uL (4.00-5.40); RED CELL DISTRIBUTION WIDTH 14.6 % (11.5-14.5); WHITE BLOOD COUNT 6.1 10^3/uL (4.0-10.0)
[2018-04-30 14:14] LABS: PLATELET COUNT, AUTOMATED 25 10^3/uL (150-450); POS COUNT POS FLAG
[2018-04-30 14:20] LABS: ALBUMIN 3.2 GM/DL (3.2-5.2); ALBUMIN/GLOBULIN RATIO 1.14 (1.00-1.93); ALKALINE PHOSPHATASE 87 U/L (45-117); ALT/SGPT 31 U/L (12-78); ANION GAP 9 MEQ/L (8-16); AST/SGOT 13 U/L (7-37); BILIRUBIN,TOTAL 0.3 MG/DL (0.2-1.0); BLOOD UREA NITROGEN 33 MG/DL (7-18); CALCIUM LEVEL 8.7 MG/DL (8.8-10.2); CARBON DIOXIDE LEVEL 27 MEQ/L (21-32); CHLORIDE LEVEL 105 MEQ/L (98-107); CREATININE FOR GFR 1.09 MG/DL (0.55-1.30); GLOMERULAR FILTRATION RATE 54.3 (>45); GLUCOSE, FASTING 152 MG/DL (70-100); LDH LACTATE DEHYDROGENASE 205 U/L (84-246); MAGNESIUM LEVEL 1.5 MG/DL (1.8-2.4); SODIUM LEVEL 141 MEQ/L (136-145)
[2018-04-30 14:27] LABS: IMMATURE PLATELET FRACTION % 9.2 % (0.0-9.6)
== END ==
LOC: M LAB REF 12:09
DX: Z94.81 Bone marrow transplant status (principal)
CPT/HCPCS: 83615

== ENCOUNTER → 2018-05-07 | Outpatient (REF) | payer MEDICARE, OTHER ==
[2018-05-07 17:11] LABS: BASO % 0.2 % (0.0-1.0); EOS # 0.1 10^3/uL (0.0-0.50); EOS % 0.8 % (0.0-3.0); HEMATOCRIT 32.5 % (36.0-47.0); HEMOGLOBIN 11.1 g/dl (12.0-15.5); IMMATURE GRANULOCYTE % 0.8 % (0-3.0); LYMPH # 1.2 10^3/uL (1.5-4.5); LYMPH % 13.1 % (24.0-44.0); MEAN CORPUSCULAR HEMOGLOBIN 32.8 pg (27.0-33.0); MEAN CORPUSCULAR HGB CONC 34.2 g/dl (32.0-36.5); MEAN CORPUSCULAR VOLUME 96.2 fl (80.0-96.0); MONO # 0.5 10^3/uL (0.0-0.8); MONO % 5.5 % (0.0-5.0); NEUTROPHILS # 7.4 10^3/uL (1.8-7.7); NEUTROPHILS % 79.6 % (36.0-66.0); RED BLOOD COUNT 3.38 10^6/uL (4.00-5.40); RED CELL DISTRIBUTION WIDTH 14.2 % (11.5-14.5); WHITE BLOOD COUNT 9.3 10^3/uL (4.0-10.0)
[2018-05-07 17:15] LABS: PLATELET COUNT, AUTOMATED 51 10^3/uL (150-450)
[2018-05-07 17:17] LABS: IMMATURE PLATELET FRACTION % 7.3 % (0.0-9.6); PLATELET F 47
[2018-05-07 17:33] LABS: ALBUMIN 3.3 GM/DL (3.2-5.2); ALBUMIN/GLOBULIN RATIO 1.18 (1.00-1.93); ALKALINE PHOSPHATASE 87 U/L (45-117); ALT/SGPT 32 U/L (12-78); ANION GAP 11 MEQ/L (8-16); AST/SGOT 13 U/L (7-37); BILIRUBIN,TOTAL 0.3 MG/DL (0.2-1.0); BLOOD UREA NITROGEN 41 MG/DL (7-18); CALCIUM LEVEL 8.9 MG/DL (8.8-10.2); CARBON DIOXIDE LEVEL 25 MEQ/L (21-32); CHLORIDE LEVEL 108 MEQ/L (98-107); CREATININE FOR GFR 1.18 MG/DL (0.55-1.30); GLOMERULAR FILTRATION RATE 49.6 (>45); GLUCOSE, FASTING 189 MG/DL (70-100); LDH LACTATE DEHYDROGENASE 245 U/L (84-246); MAGNESIUM LEVEL 1.6 MG/DL (1.8-2.4); SODIUM LEVEL 144 MEQ/L (136-145); TOTAL PROTEIN 6.1 GM/DL (6.4-8.2)
== END ==
LOC: M LAB REF 16:34
DX: Z94.81 Bone marrow transplant status (principal)
CPT/HCPCS: 83615

== ENCOUNTER → 2018-05-14 | Outpatient (REF) | payer MEDICARE, OTHER ==
[2018-05-14 17:55] LABS: BASO % 0.1 % (0.0-1.0); EOS % 0.2 % (0.0-3.0); IMMATURE GRANULOCYTE % 1.5 % (0-3.0); LYMPH # 1.6 10^3/uL (1.5-4.5); LYMPH % 19.4 % (24.0-44.0); MEAN CORPUSCULAR HEMOGLOBIN 33.3 pg (27.0-33.0); MEAN CORPUSCULAR HGB CONC 34.4 g/dl (32.0-36.5); MONO # 0.6 10^3/uL (0.0-0.8); MONO % 7.4 % (0.0-5.0); NEUTROPHILS # 5.8 10^3/uL (1.8-7.7); NEUTROPHILS % 71.4 % (36.0-66.0); RED CELL DISTRIBUTION WIDTH 13.8 % (11.5-14.5); WHITE BLOOD COUNT 8.1 10^3/uL (4.0-10.0)
[2018-05-14 18:03] LABS: PLATELET COUNT, AUTOMATED 36 10^3/uL (150-450)
[2018-05-14 18:04] LABS: IMMATURE PLATELET FRACTION % 7.5 % (0.0-9.6)
[2018-05-14 19:16] LABS: MAGNESIUM LEVEL 1.5 MG/DL (1.8-2.4)
[2018-05-14 19:16] LABS: LDH LACTATE DEHYDROGENASE 240 U/L (84-246)
[2018-05-17 14:44] LABS: FK 506 (TACROLIMUS) LABCORP 4.9 ng/mL (2.0-20.0)
== END ==
LOC: M LAB REF 17:05
DX: D47.1 Chronic myeloproliferative disease (principal); M32.9 Systemic lupus erythematosus, unspecified; E11.9 Type 2 diabetes mellitus without complications; M94.0 Chondrocostal junction syndrome [Tietze]; T86.5 Complications of stem cell transplant
CPT/HCPCS: 83615

== ENCOUNTER → 2018-05-21 | Outpatient (REF) | payer MEDICARE, OTHER ==
[2018-05-21 13:37] LABS: BASO % 0.1 % (0.0-1.0); EOS # 0.1 10^3/uL (0.0-0.50); EOS % 0.8 % (0.0-3.0); HEMATOCRIT 30.7 % (36.0-47.0); HEMOGLOBIN 10.7 g/dl (12.0-15.5); IMMATURE GRANULOCYTE % 0.5 % (0-3.0); LYMPH # 1.5 10^3/uL (1.5-4.5); LYMPH % 20.2 % (24.0-44.0); MEAN CORPUSCULAR HEMOGLOBIN 33.6 pg (27.0-33.0); MEAN CORPUSCULAR HGB CONC 34.9 g/dl (32.0-36.5); MEAN CORPUSCULAR VOLUME 96.5 fl (80.0-96.0); MONO # 0.7 10^3/uL (0.0-0.8); MONO % 8.5 % (0.0-5.0); NEUTROPHILS # 5.3 10^3/uL (1.8-7.7); NEUTROPHILS % 69.9 % (36.0-66.0); RED BLOOD COUNT 3.18 10^6/uL (4.00-5.40); RED CELL DISTRIBUTION WIDTH 13.5 % (11.5-14.5); WHITE BLOOD COUNT 7.6 10^3/uL (4.0-10.0)
[2018-05-21 13:40] LABS: PLATELET COUNT, AUTOMATED 33 10^3/uL (150-450)
[2018-05-21 13:41] LABS: IMMATURE PLATELET FRACTION % 7.5 % (0.0-9.6)
[2018-05-21 13:51] LABS: ALBUMIN 3.1 GM/DL (3.2-5.2); ALBUMIN/GLOBULIN RATIO 1.11 (1.00-1.93); ALKALINE PHOSPHATASE 111 U/L (45-117); ALT/SGPT 32 U/L (12-78); ANION GAP 12 MEQ/L (8-16); AST/SGOT 14 U/L (7-37); BILIRUBIN,TOTAL 0.2 MG/DL (0.2-1.0); BLOOD UREA NITROGEN 35 MG/DL (7-18); CALCIUM LEVEL 8.6 MG/DL (8.8-10.2); CARBON DIOXIDE LEVEL 26 MEQ/L (21-32); CHLORIDE LEVEL 102 MEQ/L (98-107); CREATININE FOR GFR 1.11 MG/DL (0.55-1.30); GLOMERULAR FILTRATION RATE 53.2 (>45); GLUCOSE, FASTING 188 MG/DL (70-100); LDH LACTATE DEHYDROGENASE 257 U/L (84-246); MAGNESIUM LEVEL 1.4 MG/DL (1.8-2.4); POTASSIUM SERUM 3.3 MEQ/L (3.5-5.1); SODIUM LEVEL 140 MEQ/L (136-145); TOTAL PROTEIN 5.9 GM/DL (6.4-8.2)
[2018-05-24 00:20] LABS: FK 506 (TACROLIMUS) LABCORP 5.5 ng/mL (2.0-20.0)
== END ==
LOC: M LAB REF 13:05
DX: Z94.81 Bone marrow transplant status (principal); D89.811 Chronic graft-versus-host disease
CPT/HCPCS: 83615

== ENCOUNTER → 2018-05-28 | Outpatient (REF) | payer MEDICARE, OTHER ==
[2018-05-28 13:02] LABS: BASO % 0.1 % (0.0-1.0); EOS % 0.1 % (0.0-3.0); HEMATOCRIT 31.1 % (36.0-47.0); HEMOGLOBIN 10.9 g/dl (12.0-15.5); IMMATURE GRANULOCYTE % 0.6 % (0-3.0); LYMPH # 1.2 10^3/uL (1.5-4.5); LYMPH % 13.6 % (24.0-44.0); MEAN CORPUSCULAR HEMOGLOBIN 32.9 pg (27.0-33.0); MONO # 0.4 10^3/uL (0.0-0.8); MONO % 4.3 % (0.0-5.0); NEUTROPHILS # 7.2 10^3/uL (1.8-7.7); NEUTROPHILS % 81.3 % (36.0-66.0); RED BLOOD COUNT 3.31 10^6/uL (4.00-5.40); RED CELL DISTRIBUTION WIDTH 13.1 % (11.5-14.5); WHITE BLOOD COUNT 8.9 10^3/uL (4.0-10.0)
[2018-05-28 13:30] LABS: ALBUMIN 3.3 GM/DL (3.2-5.2); ALBUMIN/GLOBULIN RATIO 1.14 (1.00-1.93); ALKALINE PHOSPHATASE 95 U/L (45-117); ALT/SGPT 31 U/L (12-78); ANION GAP 13 MEQ/L (8-16); AST/SGOT 10 U/L (7-37); BILIRUBIN,TOTAL 0.3 MG/DL (0.2-1.0); BLOOD UREA NITROGEN 33 MG/DL (7-18); CALCIUM LEVEL 9.1 MG/DL (8.8-10.2); CARBON DIOXIDE LEVEL 24 MEQ/L (21-32); CHLORIDE LEVEL 96 MEQ/L (98-107); CREATININE FOR GFR 1.21 MG/DL (0.55-1.30); GLOMERULAR FILTRATION RATE 48.2 (>45); GLUCOSE, FASTING 248 MG/DL (70-100); LDH LACTATE DEHYDROGENASE 228 U/L (84-246); MAGNESIUM LEVEL 1.6 MG/DL (1.8-2.4); POTASSIUM SERUM 4.2 MEQ/L (3.5-5.1); SODIUM LEVEL 133 MEQ/L (136-145); TOTAL PROTEIN 6.2 GM/DL (6.4-8.2)
[2018-05-28 14:16] LABS: PLATELET COUNT, AUTOMATED 23 10^3/uL (150-450); POS COUNT POS FLAG
[2018-05-28 14:18] LABS: IMMATURE PLATELET FRACTION % 11.6 % (0.0-9.6)
== END ==
LOC: M LAB REF 12:43
DX: Z94.81 Bone marrow transplant status (principal)
CPT/HCPCS: 83615

== ENCOUNTER → 2018-06-04 | Outpatient (REF) | payer MEDICARE, OTHER ==
[2018-06-04 10:38] LABS: BASO % 0.3 % (0.0-1.0); EOS % 0.6 % (0.0-3.0); HEMATOCRIT 30.9 % (36.0-47.0); HEMOGLOBIN 10.9 g/dl (12.0-15.5); IMMATURE GRANULOCYTE % 0.6 % (0-3.0); LYMPH # 1.7 10^3/uL (1.5-4.5); LYMPH % 26.4 % (24.0-44.0); MEAN CORPUSCULAR HEMOGLOBIN 32.7 pg (27.0-33.0); MEAN CORPUSCULAR HGB CONC 35.3 g/dl (32.0-36.5); MEAN CORPUSCULAR VOLUME 92.8 fl (80.0-96.0); MONO # 0.7 10^3/uL (0.0-0.8); MONO % 10.6 % (0.0-5.0); NEUTROPHILS % 61.5 % (36.0-66.0); RED BLOOD COUNT 3.33 10^6/uL (4.00-5.40); WHITE BLOOD COUNT 6.5 10^3/uL (4.0-10.0)
[2018-06-04 10:43] LABS: PLATELET COUNT, AUTOMATED 17 10^3/uL (150-450); POS COUNT POS FLAG
[2018-06-04 10:44] LABS: IMMATURE PLATELET FRACTION % 12.2 % (0.0-9.6); PLATELET F 16
[2018-06-04 11:11] LABS: ALBUMIN 3.3 GM/DL (3.2-5.2); ALBUMIN/GLOBULIN RATIO 1.22 (1.00-1.93); ALKALINE PHOSPHATASE 78 U/L (45-117); ALT/SGPT 31 U/L (12-78); ANION GAP 10 MEQ/L (8-16); AST/SGOT 12 U/L (7-37); BILIRUBIN,TOTAL 0.3 MG/DL (0.2-1.0); BLOOD UREA NITROGEN 25 MG/DL (7-18); CALCIUM LEVEL 8.9 MG/DL (8.8-10.2); CARBON DIOXIDE LEVEL 27 MEQ/L (21-32); CHLORIDE LEVEL 95 MEQ/L (98-107); CREATININE FOR GFR 1.03 MG/DL (0.55-1.30); GLUCOSE, FASTING 160 MG/DL (70-100); LDH LACTATE DEHYDROGENASE 228 U/L (84-246); MAGNESIUM LEVEL 1.5 MG/DL (1.8-2.4); POTASSIUM SERUM 3.7 MEQ/L (3.5-5.1); SODIUM LEVEL 132 MEQ/L (136-145)
[2018-06-06 14:17] LABS: FK 506 (TACROLIMUS) LABCORP 4.5 ng/mL (2.0-20.0)
== END ==
LOC: M LAB REF 10:11
DX: Z94.81 Bone marrow transplant status (principal); D47.1 Chronic myeloproliferative disease; D89.1 Cryoglobulinemia
CPT/HCPCS: 83615

== ENCOUNTER → 2018-06-11 | Outpatient (REF) | payer MEDICARE, OTHER ==
[2018-06-11 11:33] LABS: BASO % 0.3 % (0.0-1.0); EOS % 0.5 % (0.0-3.0); HEMATOCRIT 30.1 % (36.0-47.0); HEMOGLOBIN 10.6 g/dl (12.0-15.5); IMMATURE GRANULOCYTE % 0.5 % (0-3.0); LYMPH # 1.3 10^3/uL (1.5-4.5); LYMPH % 20.1 % (24.0-44.0); MEAN CORPUSCULAR HEMOGLOBIN 32.9 pg (27.0-33.0); MEAN CORPUSCULAR HGB CONC 35.2 g/dl (32.0-36.5); MEAN CORPUSCULAR VOLUME 93.5 fl (80.0-96.0); MONO # 0.5 10^3/uL (0.0-0.8); MONO % 8.4 % (0.0-5.0); NEUTROPHILS # 4.5 10^3/uL (1.8-7.7); NEUTROPHILS % 70.2 % (36.0-66.0); RED BLOOD COUNT 3.22 10^6/uL (4.00-5.40); RED CELL DISTRIBUTION WIDTH 13.2 % (11.5-14.5); WHITE BLOOD COUNT 6.5 10^3/uL (4.0-10.0)
[2018-06-11 11:53] LABS: ALKALINE PHOSPHATASE 65 U/L (45-117); ALT/SGPT 27 U/L (12-78); ANION GAP 11 MEQ/L (8-16); AST/SGOT 9 U/L (7-37); BILIRUBIN,TOTAL 0.3 MG/DL (0.2-1.0); BLOOD UREA NITROGEN 35 MG/DL (7-18); CALCIUM LEVEL 8.6 MG/DL (8.8-10.2); CARBON DIOXIDE LEVEL 24 MEQ/L (21-32); CHLORIDE LEVEL 101 MEQ/L (98-107); CREATININE FOR GFR 1.09 MG/DL (0.55-1.30); GLOMERULAR FILTRATION RATE 54.3 (>45); GLUCOSE, FASTING 164 MG/DL (70-100); LDH LACTATE DEHYDROGENASE 214 U/L (84-246); MAGNESIUM LEVEL 1.4 MG/DL (1.8-2.4); POTASSIUM SERUM 3.6 MEQ/L (3.5-5.1); SODIUM LEVEL 136 MEQ/L (136-145); TOTAL PROTEIN 5.5 GM/DL (6.4-8.2)
[2018-06-11 12:09] LABS: PLATELET COUNT, AUTOMATED 21 10^3/uL (150-450)
[2018-06-11 12:10] LABS: POS COUNT POS FLAG
[2018-06-11 12:11] LABS: IMMATURE PLATELET FRACTION % 10.5 % (0.0-9.6)
[2018-06-14 00:13] LABS: FK 506 (TACROLIMUS) LABCORP 6.4 ng/mL (2.0-20.0)
== END ==
LOC: M LAB REF 11:07
DX: D47.1 Chronic myeloproliferative disease (principal); D89.811 Chronic graft-versus-host disease; Z94.81 Bone marrow transplant status
CPT/HCPCS: 83615

== ENCOUNTER 2018-06-16 18:03 | Emergency (ER) | payer MEDICARE, OTHER ==
[2018-06-16 18:48] LABS: BASO % 0.2 % (0.0-1.0); EOS % 0.1 % (0.0-3.0); HEMATOCRIT 29.8 % (36.0-47.0); HEMOGLOBIN 10.5 g/dl (12.0-15.5); IMMATURE GRANULOCYTE % 0.5 % (0-3.0); LYMPH # 1.6 10^3/uL (1.5-4.5); LYMPH % 19.8 % (24.0-44.0); MEAN CORPUSCULAR HEMOGLOBIN 32.8 pg (27.0-33.0); MEAN CORPUSCULAR HGB CONC 35.2 g/dl (32.0-36.5); MEAN CORPUSCULAR VOLUME 93.1 fl (80.0-96.0); MONO # 0.5 10^3/uL (0.0-0.8); NEUTROPHILS # 6.1 10^3/uL (1.8-7.7); NEUTROPHILS % 73.4 % (36.0-66.0); RED CELL DISTRIBUTION WIDTH 13.1 % (11.5-14.5); WHITE BLOOD COUNT 8.3 10^3/uL (4.0-10.0)
[2018-06-16 18:54] LABS: PLATELET COUNT, AUTOMATED 40 10^3/uL (150-450)
[2018-06-16 18:56] LABS: IMMATURE PLATELET FRACTION % 6.4 % (0.0-9.6)
[2018-06-16 19:05] LABS: INR 1.04; PROTHROMBIN TIME 13.7 SECONDS (12.1-14.4)
[2018-06-16 19:08] LABS: ALBUMIN 3.2 GM/DL (3.2-5.2); ALBUMIN/GLOBULIN RATIO 1.19 (1.00-1.93); ALKALINE PHOSPHATASE 84 U/L (45-117); ALT/SGPT 31 U/L (12-78); ANION GAP 10 MEQ/L (8-16); AST/SGOT 16 U/L (7-37); BILIRUBIN,DIRECT < 0.1 MG/DL (0.0-0.2); BILIRUBIN,TOTAL 0.2 MG/DL (0.2-1.0); BLOOD UREA NITROGEN 28 MG/DL (7-18); CALCIUM LEVEL 8.8 MG/DL (8.8-10.2); CARBON DIOXIDE LEVEL 24 MEQ/L (21-32); CHLORIDE LEVEL 102 MEQ/L (98-107); CPK CREATINE PHOSPHOKINASE 31 U/L (26-192); CREATININE FOR GFR 1.58 MG/DL (0.55-1.30); GLOMERULAR FILTRATION RATE 35.4 (>45); GLUCOSE, FASTING 207 MG/DL (70-100); LIPASE 75 U/L (73-393); POTASSIUM SERUM 4.7 MEQ/L (3.5-5.1); SODIUM LEVEL 136 MEQ/L (136-145); TOTAL PROTEIN 5.9 GM/DL (6.4-8.2); TROPONIN I < 0.02 NG/ML (< 0.10)
[2018-06-16 19:14] LABS: CK-MB VALUE MASS < 1.0 NG/ML (<3.6); MB/CK RELATIVE INDEX 3.22 (< OR =4); NT-PRO BNP 327 PG/ML (<125); THYROID STIMULATING HORMONE 0.475 uIU/ML (0.358-3.740)
[2018-06-16] MEDS: METOPROLOL 5 MG/5 ML VIAL IV ×3 (19:31→19:50)
[2018-06-16] MEDS: BISOPROLOL FUMARATE 5 MG TAB PO (20:15)
[2018-06-16 20:23] LABS: MAGNESIUM LEVEL 1.2 MG/DL (1.8-2.4)
[2018-06-16] MEDS: FLECAINIDE 50MG TABLET PO (20:45)
[2018-06-16] MEDS: MAG SULF 1GM/100ML (MAG RUN) 1 GM in APPROPRIATE DILUENT 1 EA IV ×2 (20:45→21:25)
== END 2018-06-16 23:47 | disposition home or self-care (01) ==
LOC: M ED 18:03
DX: I48.91 Unspecified atrial fibrillation (principal); I12.9 Hypertensive chronic kidney disease with stage 1 through stage 4 chronic kidney disease, or unspecified chronic kidney disease; N18.3 Chronic kidney disease, stage 3 (moderate); F32.9 Major depressive disorder, single episode, unspecified
CPT/HCPCS: J3475

== ENCOUNTER → 2018-06-19 | Outpatient (REF) | payer MEDICARE, OTHER ==
[2018-06-19 11:17] LABS: BASO % 0.2 % (0.0-1.0); EOS % 0.7 % (0.0-3.0); HEMATOCRIT 40.7 % (36.0-47.0); HEMOGLOBIN 14.2 g/dl (12.0-15.5); IMMATURE GRANULOCYTE % 0.5 % (0-3.0); LYMPH % 16.3 % (24.0-44.0); MEAN CORPUSCULAR HEMOGLOBIN 32.1 pg (27.0-33.0); MEAN CORPUSCULAR HGB CONC 34.9 g/dl (32.0-36.5); MEAN CORPUSCULAR VOLUME 92.1 fl (80.0-96.0); MONO # 0.4 10^3/uL (0.0-0.8); MONO % 6.8 % (0.0-5.0); NEUTROPHILS # 4.6 10^3/uL (1.8-7.7); NEUTROPHILS % 75.5 % (36.0-66.0); RED BLOOD COUNT 4.42 10^6/uL (4.00-5.40)
[2018-06-19 11:18] LABS: POS COUNT POS FLAG
[2018-06-19 11:23] LABS: PLATELET COUNT, AUTOMATED 20 10^3/uL (150-450)
[2018-06-19 11:25] LABS: IMMATURE PLATELET FRACTION % 8.1 % (0.0-9.6)
[2018-06-19 11:33] LABS: ALBUMIN 3.2 GM/DL (3.2-5.2); ALBUMIN/GLOBULIN RATIO 1.23 (1.00-1.93); ALKALINE PHOSPHATASE 78 U/L (45-117); ALT/SGPT 29 U/L (12-78); ANION GAP 10 MEQ/L (8-16); AST/SGOT 12 U/L (7-37); BILIRUBIN,TOTAL 0.3 MG/DL (0.2-1.0); BLOOD UREA NITROGEN 25 MG/DL (7-18); CARBON DIOXIDE LEVEL 28 MEQ/L (21-32); CHLORIDE LEVEL 98 MEQ/L (98-107); CREATININE FOR GFR 1.04 MG/DL (0.55-1.30); GLOMERULAR FILTRATION RATE 57.4 (>45); GLUCOSE, FASTING 161 MG/DL (70-100); LDH LACTATE DEHYDROGENASE 206 U/L (84-246); MAGNESIUM LEVEL 1.5 MG/DL (1.8-2.4); POTASSIUM SERUM 4.2 MEQ/L (3.5-5.1); SODIUM LEVEL 136 MEQ/L (136-145); TOTAL PROTEIN 5.8 GM/DL (6.4-8.2)
[2018-06-23 00:06] LABS: FK 506 (TACROLIMUS) LABCORP 6.3 ng/mL (2.0-20.0)
== END ==
LOC: M LAB REF 11:07
DX: Z98.1 Arthrodesis status (principal); Z94.81 Bone marrow transplant status
CPT/HCPCS: 83615

== ENCOUNTER → 2018-06-25 | Outpatient (REF) | payer MEDICARE, OTHER ==
[2018-06-25 13:04] LABS: BASO % 0.3 % (0.0-1.0); EOS % 0.4 % (0.0-3.0); HEMATOCRIT 31.3 % (36.0-47.0); HEMOGLOBIN 10.7 g/dl (12.0-15.5); IMMATURE GRANULOCYTE % 0.6 % (0-3.0); LYMPH # 1.3 10^3/uL (1.5-4.5); LYMPH % 16.1 % (24.0-44.0); MEAN CORPUSCULAR HEMOGLOBIN 31.8 pg (27.0-33.0); MEAN CORPUSCULAR HGB CONC 34.2 g/dl (32.0-36.5); MEAN CORPUSCULAR VOLUME 93.2 fl (80.0-96.0); MONO # 0.5 10^3/uL (0.0-0.8); MONO % 6.7 % (0.0-5.0); NEUTROPHILS % 75.9 % (36.0-66.0); RED BLOOD COUNT 3.36 10^6/uL (4.00-5.40); RED CELL DISTRIBUTION WIDTH 13.2 % (11.5-14.5); WHITE BLOOD COUNT 7.9 10^3/uL (4.0-10.0)
[2018-06-25 13:19] LABS: ALBUMIN 3.4 GM/DL (3.2-5.2); ALBUMIN/GLOBULIN RATIO 1.31 (1.00-1.93); ALKALINE PHOSPHATASE 81 U/L (45-117); ALT/SGPT 30 U/L (12-78); ANION GAP 10 MEQ/L (8-16); AST/SGOT 13 U/L (7-37); BILIRUBIN,TOTAL 0.3 MG/DL (0.2-1.0); BLOOD UREA NITROGEN 26 MG/DL (7-18); CALCIUM LEVEL 9.1 MG/DL (8.8-10.2); CARBON DIOXIDE LEVEL 28 MEQ/L (21-32); CHLORIDE LEVEL 95 MEQ/L (98-107); GLOMERULAR FILTRATION RATE 53.8 (>45); GLUCOSE, FASTING 200 MG/DL (70-100); LDH LACTATE DEHYDROGENASE 244 U/L (84-246); MAGNESIUM LEVEL 1.7 MG/DL (1.8-2.4); POTASSIUM SERUM 4.1 MEQ/L (3.5-5.1); SODIUM LEVEL 133 MEQ/L (136-145)
[2018-06-25 13:53] LABS: PLATELET COUNT, AUTOMATED 26 10^3/uL (150-450); POS COUNT POS FLAG
[2018-06-25 13:54] LABS: IMMATURE PLATELET FRACTION % 11.7 % (0.0-9.6); PLATELET F 2.6
[2018-06-28 00:07] LABS: FK 506 (TACROLIMUS) LABCORP 5.7 ng/mL (2.0-20.0)
== END ==
LOC: M LAB REF 12:07
DX: Z94.81 Bone marrow transplant status (principal)
CPT/HCPCS: 83615

== ENCOUNTER → 2018-07-03 | Outpatient (CLI) | payer MEDICARE, OTHER | LOC: M RAD 14:02 | DX: M17.12 Unilateral primary osteoarthritis, left knee (principal); R22.31 Localized swelling, mass and lump, right upper limb; M51.36 Other intervertebral disc degeneration, lumbar region; M19.031 Primary osteoarthritis, right wrist | CPT/HCPCS: 72110 ==

== ENCOUNTER → 2018-07-16 | Outpatient (REF) | payer MEDICARE, OTHER ==
[2018-07-16 12:07] LABS: BASO % 0.2 % (0.0-1.0); EOS % 0.4 % (0.0-3.0); HEMATOCRIT 32.8 % (36.0-47.0); IMMATURE GRANULOCYTE % 0.5 % (0-3.0); LYMPH # 1.5 10^3/uL (1.5-4.5); LYMPH % 18.6 % (24.0-44.0); MEAN CORPUSCULAR HEMOGLOBIN 31.5 pg (27.0-33.0); MEAN CORPUSCULAR HGB CONC 33.5 g/dl (32.0-36.5); MONO # 0.4 10^3/uL (0.0-0.8); MONO % 5.1 % (0.0-5.0); NEUTROPHILS # 6.1 10^3/uL (1.8-7.7); NEUTROPHILS % 75.2 % (36.0-66.0); RED BLOOD COUNT 3.49 10^6/uL (4.00-5.40); RED CELL DISTRIBUTION WIDTH 13.4 % (11.5-14.5); WHITE BLOOD COUNT 8.2 10^3/uL (4.0-10.0)
[2018-07-16 12:08] LABS: PLATELET COUNT, AUTOMATED 39 10^3/uL (150-450)
[2018-07-16 22:13] LABS: ALBUMIN 3.5 GM/DL (3.2-5.2); ALKALINE PHOSPHATASE 102 U/L (45-117); ALT/SGPT 36 U/L (12-78); ANION GAP 11 MEQ/L (8-16); AST/SGOT 17 U/L (7-37); BILIRUBIN,TOTAL 0.3 MG/DL (0.2-1.0); BLOOD UREA NITROGEN 40 MG/DL (7-18); CALCIUM LEVEL 9.5 MG/DL (8.8-10.2); CARBON DIOXIDE LEVEL 25 MEQ/L (21-32); CHLORIDE LEVEL 99 MEQ/L (98-107); CREATININE FOR GFR 1.35 MG/DL (0.55-1.30); GLOMERULAR FILTRATION RATE 42.4 (>45); GLUCOSE, FASTING 245 MG/DL (70-100); LDH LACTATE DEHYDROGENASE 231 U/L (84-246); MAGNESIUM LEVEL 1.6 MG/DL (1.8-2.4); POTASSIUM SERUM 4.4 MEQ/L (3.5-5.1); SODIUM LEVEL 135 MEQ/L (136-145); TOTAL PROTEIN 6.3 GM/DL (6.4-8.2)
[2018-07-16 23:31] LABS: ALBUMIN/GLOBULIN RATIO 1.25 (1.00-1.93)
[2018-07-18 08:06] LABS: FK 506 (TACROLIMUS) LABCORP 4.8 ng/mL (2.0-20.0)
== END ==
LOC: M LAB REF 11:49
DX: Z94.81 Bone marrow transplant status (principal)
CPT/HCPCS: 83615

== ENCOUNTER 2018-07-20 18:50 | Emergency (ER) | payer MEDICARE, OTHER ==
[2018-07-20] MEDS ORDERED: LIDOCAINE 1% MDV 20ML VIAL SC (20:00)
[2018-07-20 20:17] LABS: HEMATOCRIT 32.4 % (36.0-47.0); HEMOGLOBIN 10.7 g/dl (12.0-15.5); MEAN CORPUSCULAR VOLUME 93.9 fl (80.0-96.0); RED BLOOD COUNT 3.45 10^6/uL (4.00-5.40); RED CELL DISTRIBUTION WIDTH 13.3 % (11.5-14.5); WHITE BLOOD COUNT 5.7 10^3/uL (4.0-10.0)
[2018-07-20 20:20] LABS: PLATELET COUNT, AUTOMATED 36 10^3/uL (150-450)
[2018-07-20 20:21] LABS: IMMATURE PLATELET FRACTION % 6.4 % (0.0-9.6)
[2018-07-20 20:46] LABS: ANION GAP 8 MEQ/L (8-16); BLOOD UREA NITROGEN 35 MG/DL (7-18); CALCIUM LEVEL 9.8 MG/DL (8.8-10.2); CARBON DIOXIDE LEVEL 27 MEQ/L (21-32); CHLORIDE LEVEL 101 MEQ/L (98-107); CREATININE FOR GFR 1.25 MG/DL (0.55-1.30); GLOMERULAR FILTRATION RATE 46.4 (>45); GLUCOSE, FASTING 154 MG/DL (70-100); POTASSIUM SERUM 4.1 MEQ/L (3.5-5.1); SODIUM LEVEL 136 MEQ/L (136-145)
[2018-07-20] MEDS: PERCOCET 5MG/325MG TAB PO (21:02)
[2018-07-20] MEDS: CLINDAMYCIN 150 MG CAP PO (21:52)
== END 2018-07-20 21:55 | disposition home or self-care (01) ==
LOC: M ED 21:55
DX: S01.511A Laceration without foreign body of lip, initial encounter (principal); D69.6 Thrombocytopenia, unspecified; W19.XXXA Unspecified fall, initial encounter; Y92.89 Other specified places as the place of occurrence of the external cause; I10 Essential (primary) hypertension; I48.91 Unspecified atrial fibrillation; M32.9 Systemic lupus erythematosus, unspecified; G47.33 Obstructive sleep apnea (adult) (pediatric); Z87.442 Personal history of urinary calculi; D75.81 Myelofibrosis; Z94.84 Stem cells transplant status
CPT/HCPCS: 70450

== ENCOUNTER → 2018-07-23 | Outpatient (REF) | payer MEDICARE, OTHER ==
[2018-07-23 13:35] LABS: RETIC HEMOGLOBIN EQUIVALENT 36.9 pg (24-36); RETICULOCYTE # 66.4 10^9/L (17-77)
[2018-07-24 14:16] LABS: HAPTOGLOBIN 153 mg/dL (34-200)
== END ==
LOC: M LAB REF 13:18
DX: Z94.81 Bone marrow transplant status (principal); D69.6 Thrombocytopenia, unspecified

== ENCOUNTER → 2018-07-23 | Outpatient (REF) | payer MEDICARE, OTHER ==
[2018-07-23 14:52] LABS: ALBUMIN 3.4 GM/DL (3.2-5.2); ANION GAP 13 MEQ/L (8-16); BLOOD UREA NITROGEN 29 MG/DL (7-18); CALCIUM LEVEL 8.9 MG/DL (8.8-10.2); CARBON DIOXIDE LEVEL 24 MEQ/L (21-32); CHLORIDE LEVEL 99 MEQ/L (98-107); CREATININE FOR GFR 1.32 MG/DL (0.55-1.30); GLOMERULAR FILTRATION RATE 43.6 (>45); GLUCOSE, FASTING 183 MG/DL (70-100); MAGNESIUM LEVEL 1.7 MG/DL (1.8-2.4); SODIUM LEVEL 136 MEQ/L (136-145)
== END ==
LOC: M LAB REF 12:33
DX: I48.0 Paroxysmal atrial fibrillation (principal)

== ENCOUNTER → 2018-07-23 | Outpatient (REF) | payer MEDICARE, OTHER ==
[2018-07-23 13:28] LABS: BASO % 0.3 % (0.0-1.0); EOS # 0.1 10^3/uL (0.0-0.50); EOS % 0.7 % (0.0-3.0); HEMATOCRIT 30.6 % (36.0-47.0); HEMOGLOBIN 10.3 g/dl (12.0-15.5); IMMATURE GRANULOCYTE % 0.4 % (0-3.0); LYMPH # 1.2 10^3/uL (1.5-4.5); LYMPH % 16.6 % (24.0-44.0); MEAN CORPUSCULAR HEMOGLOBIN 31.3 pg (27.0-33.0); MEAN CORPUSCULAR HGB CONC 33.7 g/dl (32.0-36.5); MONO # 0.5 10^3/uL (0.0-0.8); MONO % 6.6 % (0.0-5.0); NEUTROPHILS # 5.3 10^3/uL (1.8-7.7); NEUTROPHILS % 75.4 % (36.0-66.0); RED BLOOD COUNT 3.29 10^6/uL (4.00-5.40); RED CELL DISTRIBUTION WIDTH 13.4 % (11.5-14.5)
[2018-07-23 13:33] LABS: PLATELET COUNT, AUTOMATED 34 10^3/uL (150-450)
[2018-07-23 13:34] LABS: IMMATURE PLATELET FRACTION % 8.3 % (0.0-9.6)
[2018-07-23 14:08] LABS: ALBUMIN 3.4 GM/DL (3.2-5.2); ALBUMIN/GLOBULIN RATIO 1.31 (1.00-1.93); ALKALINE PHOSPHATASE 73 U/L (45-117); ALT/SGPT 33 U/L (12-78); ANION GAP 13 MEQ/L (8-16); AST/SGOT 14 U/L (7-37); BILIRUBIN,TOTAL 0.3 MG/DL (0.2-1.0); BLOOD UREA NITROGEN 30 MG/DL (7-18); CALCIUM LEVEL 9.4 MG/DL (8.8-10.2); CARBON DIOXIDE LEVEL 23 MEQ/L (21-32); CHLORIDE LEVEL 99 MEQ/L (98-107); GLOMERULAR FILTRATION RATE 44.3 (>45); GLUCOSE, FASTING 189 MG/DL (70-100); LDH LACTATE DEHYDROGENASE 280 U/L (84-246); MAGNESIUM LEVEL 1.7 MG/DL (1.8-2.4); SODIUM LEVEL 135 MEQ/L (136-145)
[2018-07-26 15:01] LABS: FK 506 (TACROLIMUS) LABCORP 4.4 ng/mL (2.0-20.0)
== END ==
LOC: M LAB REF 12:41
DX: Z94.81 Bone marrow transplant status (principal); I48.0 Paroxysmal atrial fibrillation; D69.6 Thrombocytopenia, unspecified
CPT/HCPCS: 83010

== ENCOUNTER → 2018-07-26 | Outpatient (CLI) | payer MEDICARE, OTHER | LOC: M LRY 09:37 | DX: M25.775 Osteophyte, left foot (principal) | CPT/HCPCS: 73630; G0463 ==

== ENCOUNTER → 2018-07-30 | Outpatient (REF) | payer MEDICARE, OTHER ==
[2018-07-30 14:38] LABS: ALBUMIN 3.6 GM/DL (3.2-5.2); ALBUMIN/GLOBULIN RATIO 1.44 (1.00-1.93); ALKALINE PHOSPHATASE 75 U/L (45-117); ALT/SGPT 33 U/L (12-78); ANION GAP 14 MEQ/L (8-16); AST/SGOT 13 U/L (7-37); BILIRUBIN,TOTAL 0.2 MG/DL (0.2-1.0); BLOOD UREA NITROGEN 44 MG/DL (7-18); CALCIUM LEVEL 9.5 MG/DL (8.8-10.2); CARBON DIOXIDE LEVEL 22 MEQ/L (21-32); CHLORIDE LEVEL 106 MEQ/L (98-107); CREATININE FOR GFR 1.47 MG/DL (0.55-1.30); GLOMERULAR FILTRATION RATE 38.5 (>45); GLUCOSE, FASTING 229 MG/DL (70-100); LDH LACTATE DEHYDROGENASE 248 U/L (84-246); MAGNESIUM LEVEL 1.9 MG/DL (1.8-2.4); POTASSIUM SERUM 4.2 MEQ/L (3.5-5.1); SODIUM LEVEL 142 MEQ/L (136-145); TOTAL PROTEIN 6.1 GM/DL (6.4-8.2)
[2018-07-30 15:13] LABS: BASO % 0.3 % (0.0-1.0); EOS % 0.4 % (0.0-3.0); HEMATOCRIT 32.4 % (36.0-47.0); HEMOGLOBIN 10.7 g/dl (12.0-15.5); IMMATURE GRANULOCYTE % 0.6 % (0-3.0); LYMPH # 1.4 10^3/uL (1.5-4.5); LYMPH % 20.8 % (24.0-44.0); MEAN CORPUSCULAR HEMOGLOBIN 31.3 pg (27.0-33.0); MEAN CORPUSCULAR VOLUME 94.7 fl (80.0-96.0); MONO # 0.5 10^3/uL (0.0-0.8); NEUTROPHILS # 4.9 10^3/uL (1.8-7.7); NEUTROPHILS % 70.9 % (36.0-66.0); RED BLOOD COUNT 3.42 10^6/uL (4.00-5.40); RED CELL DISTRIBUTION WIDTH 13.7 % (11.5-14.5); WHITE BLOOD COUNT 6.9 10^3/uL (4.0-10.0)
[2018-07-30 15:14] LABS: PLATELET COUNT, AUTOMATED 35 10^3/uL (150-450)
[2018-07-30 15:15] LABS: IMMATURE PLATELET FRACTION % 7.5 % (0.0-9.6)
== END ==
LOC: M LAB REF 13:11
DX: Z94.81 Bone marrow transplant status (principal); D47.1 Chronic myeloproliferative disease; T86.5 Complications of stem cell transplant; D89.813 Graft-versus-host disease, unspecified; E11.65 Type 2 diabetes mellitus with hyperglycemia; Z86.39 Personal history of other endocrine, nutritional and metabolic disease
CPT/HCPCS: 83615

== ENCOUNTER → 2018-07-30 | Outpatient (REF) | payer MEDICARE, OTHER ==
[2018-07-30 14:35] LABS: ANION GAP 14 MEQ/L (8-16); BLOOD UREA NITROGEN 47 MG/DL (7-18); CALCIUM LEVEL 9.4 MG/DL (8.8-10.2); CARBON DIOXIDE LEVEL 23 MEQ/L (21-32); CHLORIDE LEVEL 105 MEQ/L (98-107); GLOMERULAR FILTRATION RATE 37.6 (>45); GLUCOSE, FASTING 233 MG/DL (70-100); POTASSIUM SERUM 4.2 MEQ/L (3.5-5.1); SODIUM LEVEL 142 MEQ/L (136-145)
[2018-07-30 15:39] LABS: ESTIMATED AVERAGE GLUCOSE 160 MG/DL (60-110); HEMOGLOBIN A1c 7.2 %
[2018-07-31 08:36] LABS: FRUCTOSAMINE 277 umol/L (0-285)
== END ==
LOC: M LAB REF 13:15
DX: D47.1 Chronic myeloproliferative disease (principal); T86.5 Complications of stem cell transplant; D89.813 Graft-versus-host disease, unspecified; E11.65 Type 2 diabetes mellitus with hyperglycemia; Z86.39 Personal history of other endocrine, nutritional and metabolic disease

== ENCOUNTER → 2018-08-03 | Outpatient (REF) | payer MEDICARE, OTHER ==
[2018-08-03 19:21] LABS: BASO % 0.1 % (0.0-1.0); EOS % 0.1 % (0.0-3.0); HEMATOCRIT 33.5 % (36.0-47.0); HEMOGLOBIN 11.3 g/dl (12.0-15.5); IMMATURE GRANULOCYTE % 0.6 % (0-3.0); LYMPH # 1.7 10^3/uL (1.5-4.5); MEAN CORPUSCULAR HGB CONC 33.7 g/dl (32.0-36.5); MONO # 0.6 10^3/uL (0.0-0.8); MONO % 8.1 % (0.0-5.0); NEUTROPHILS # 4.9 10^3/uL (1.8-7.7); NEUTROPHILS % 68.1 % (36.0-66.0); RED BLOOD COUNT 3.64 10^6/uL (4.00-5.40); RED CELL DISTRIBUTION WIDTH 13.4 % (11.5-14.5); WHITE BLOOD COUNT 7.2 10^3/uL (4.0-10.0)
[2018-08-03 19:36] LABS: PLATELET COUNT, AUTOMATED 38 10^3/uL (150-450)
[2018-08-03 19:39] LABS: IMMATURE PLATELET FRACTION % 9.4 % (0.0-9.6)
[2018-08-03 19:44] LABS: ANION GAP 11 MEQ/L (8-16); BLOOD UREA NITROGEN 43 MG/DL (7-18); CALCIUM LEVEL 9.7 MG/DL (8.8-10.2); CARBON DIOXIDE LEVEL 24 MEQ/L (21-32); CHLORIDE LEVEL 102 MEQ/L (98-107); GLOMERULAR FILTRATION RATE 37.6 (>45); GLUCOSE, FASTING 201 MG/DL (70-100); POTASSIUM SERUM 4.8 MEQ/L (3.5-5.1); SODIUM LEVEL 137 MEQ/L (136-145)
== END ==
LOC: M SFHCLERA 16:12
DX: R05 Cough (principal)
CPT/HCPCS: 80048

== ENCOUNTER → 2018-08-03 | Outpatient (CLI) | payer MEDICARE, OTHER | LOC: M LRY 17:02 | DX: R05 Cough (principal) | CPT/HCPCS: 71046; 80048 ==

== ENCOUNTER → 2018-08-06 | Outpatient (REF) | payer MEDICARE, OTHER ==
[2018-08-06 13:56] LABS: BASO % 0.3 % (0.0-1.0); EOS # 0.1 10^3/uL (0.0-0.50); EOS % 0.7 % (0.0-3.0); HEMATOCRIT 32.8 % (36.0-47.0); HEMOGLOBIN 10.8 g/dl (12.0-15.5); IMMATURE GRANULOCYTE % 0.4 % (0-3.0); MEAN CORPUSCULAR HEMOGLOBIN 30.7 pg (27.0-33.0); MEAN CORPUSCULAR HGB CONC 32.9 g/dl (32.0-36.5); MEAN CORPUSCULAR VOLUME 93.2 fl (80.0-96.0); MONO # 0.6 10^3/uL (0.0-0.8); MONO % 7.9 % (0.0-5.0); NEUTROPHILS # 4.5 10^3/uL (1.8-7.7); NEUTROPHILS % 62.7 % (36.0-66.0); RED BLOOD COUNT 3.52 10^6/uL (4.00-5.40); RED CELL DISTRIBUTION WIDTH 13.7 % (11.5-14.5); WHITE BLOOD COUNT 7.2 10^3/uL (4.0-10.0)
[2018-08-06 14:00] LABS: PLATELET COUNT, AUTOMATED 43 10^3/uL (150-450)
[2018-08-06 14:18] LABS: ALBUMIN 3.6 GM/DL (3.2-5.2); ALBUMIN/GLOBULIN RATIO 1.38 (1.00-1.93); ALKALINE PHOSPHATASE 72 U/L (45-117); ALT/SGPT 42 U/L (12-78); ANION GAP 10 MEQ/L (8-16); AST/SGOT 16 U/L (7-37); BILIRUBIN,TOTAL 0.3 MG/DL (0.2-1.0); BLOOD UREA NITROGEN 39 MG/DL (7-18); CALCIUM LEVEL 9.7 MG/DL (8.8-10.2); CARBON DIOXIDE LEVEL 26 MEQ/L (21-32); CHLORIDE LEVEL 104 MEQ/L (98-107); CREATININE FOR GFR 1.14 MG/DL (0.55-1.30); GLOMERULAR FILTRATION RATE 51.6 (>45); GLUCOSE, FASTING 191 MG/DL (70-100); LDH LACTATE DEHYDROGENASE 234 U/L (84-246); MAGNESIUM LEVEL 1.6 MG/DL (1.8-2.4); SODIUM LEVEL 140 MEQ/L (136-145); TOTAL PROTEIN 6.2 GM/DL (6.4-8.2)
[2018-08-09 00:07] LABS: FK 506 (TACROLIMUS) LABCORP 4.4 ng/mL (2.0-20.0)
== END ==
LOC: M LAB REF 13:33
DX: D47.1 Chronic myeloproliferative disease (principal); T86.5 Complications of stem cell transplant; D89.813 Graft-versus-host disease, unspecified; E11.9 Type 2 diabetes mellitus without complications; Z51.81 Encounter for therapeutic drug level monitoring; Z79.899 Other long term (current) drug therapy; Z94.81 Bone marrow transplant status
CPT/HCPCS: 83615

== ENCOUNTER → 2018-08-14 | Outpatient (REF) | payer MEDICARE, OTHER ==
[2018-08-14 13:33] LABS: BASO % 0.1 % (0.0-1.0); EOS # 0.1 10^3/uL (0.0-0.50); HEMATOCRIT 31.8 % (36.0-47.0); HEMOGLOBIN 10.6 g/dl (12.0-15.5); IMMATURE GRANULOCYTE % 0.3 % (0-3.0); LYMPH # 1.4 10^3/uL (1.5-4.5); LYMPH % 20.3 % (24.0-44.0); MEAN CORPUSCULAR HEMOGLOBIN 30.5 pg (27.0-33.0); MEAN CORPUSCULAR HGB CONC 33.3 g/dl (32.0-36.5); MEAN CORPUSCULAR VOLUME 91.6 fl (80.0-96.0); MONO # 0.7 10^3/uL (0.0-0.8); MONO % 10.2 % (0.0-5.0); NEUTROPHILS # 4.8 10^3/uL (1.8-7.7); NEUTROPHILS % 68.1 % (36.0-66.0); RED BLOOD COUNT 3.47 10^6/uL (4.00-5.40); RED CELL DISTRIBUTION WIDTH 13.8 % (11.5-14.5)
[2018-08-14 13:35] LABS: PLATELET COUNT, AUTOMATED 46 10^3/uL (150-450)
[2018-08-14 13:36] LABS: IMMATURE PLATELET FRACTION % 5.8 % (0.0-9.6)
[2018-08-14 14:39] LABS: ALBUMIN 3.2 GM/DL (3.2-5.2); ALBUMIN/GLOBULIN RATIO 1.14 (1.00-1.93); ALKALINE PHOSPHATASE 66 U/L (45-117); ALT/SGPT 34 U/L (12-78); ANION GAP 12 MEQ/L (8-16); AST/SGOT 12 U/L (7-37); BILIRUBIN,TOTAL 0.4 MG/DL (0.2-1.0); BLOOD UREA NITROGEN 27 MG/DL (7-18); CALCIUM LEVEL 8.7 MG/DL (8.8-10.2); CARBON DIOXIDE LEVEL 25 MEQ/L (21-32); CHLORIDE LEVEL 104 MEQ/L (98-107); CREATININE FOR GFR 1.22 MG/DL (0.55-1.30); GLOMERULAR FILTRATION RATE 47.7 (>45); GLUCOSE, FASTING 195 MG/DL (70-100); LDH LACTATE DEHYDROGENASE 247 U/L (84-246); MAGNESIUM LEVEL 1.4 MG/DL (1.8-2.4); POTASSIUM SERUM 3.7 MEQ/L (3.5-5.1); SODIUM LEVEL 141 MEQ/L (136-145)
[2018-08-17 00:24] LABS: FK 506 (TACROLIMUS) LABCORP 4.4 ng/mL (2.0-20.0)
== END ==
LOC: M LAB REF 13:02
DX: Z94.81 Bone marrow transplant status (principal)
CPT/HCPCS: 83615

== ENCOUNTER → 2018-08-16 | Outpatient (REF) | payer MEDICARE, OTHER | LOC: M SFHCLERA 14:16 | DX: R30.0 Dysuria (principal) | CPT/HCPCS: 87086 ==

== ENCOUNTER → 2018-08-20 | Outpatient (REF) | payer MEDICARE, OTHER ==
[2018-08-20 12:35] LABS: BASO % 0.1 % (0.0-1.0); EOS % 0.3 % (0.0-3.0); HEMATOCRIT 30.2 % (36.0-47.0); HEMOGLOBIN 10.2 g/dl (12.0-15.5); IMMATURE GRANULOCYTE % 0.6 % (0-3.0); LYMPH # 1.2 10^3/uL (1.5-4.5); LYMPH % 17.1 % (24.0-44.0); MEAN CORPUSCULAR HEMOGLOBIN 30.4 pg (27.0-33.0); MEAN CORPUSCULAR HGB CONC 33.8 g/dl (32.0-36.5); MEAN CORPUSCULAR VOLUME 90.1 fl (80.0-96.0); MONO # 0.4 10^3/uL (0.0-0.8); MONO % 5.8 % (0.0-5.0); NEUTROPHILS # 5.4 10^3/uL (1.8-7.7); NEUTROPHILS % 76.1 % (36.0-66.0); RED BLOOD COUNT 3.35 10^6/uL (4.00-5.40); RED CELL DISTRIBUTION WIDTH 13.7 % (11.5-14.5); WHITE BLOOD COUNT 7.1 10^3/uL (4.0-10.0)
[2018-08-20 12:57] LABS: ALBUMIN 3.4 GM/DL (3.2-5.2); ALBUMIN/GLOBULIN RATIO 1.26 (1.00-1.93); ALKALINE PHOSPHATASE 88 U/L (45-117); ALT/SGPT 38 U/L (12-78); ANION GAP 10 MEQ/L (8-16); AST/SGOT 16 U/L (7-37); BILIRUBIN,TOTAL 0.3 MG/DL (0.2-1.0); BLOOD UREA NITROGEN 30 MG/DL (7-18); CALCIUM LEVEL 9.1 MG/DL (8.8-10.2); CARBON DIOXIDE LEVEL 25 MEQ/L (21-32); CHLORIDE LEVEL 101 MEQ/L (98-107); CREATININE FOR GFR 1.32 MG/DL (0.55-1.30); GLOMERULAR FILTRATION RATE 43.6 (>45); GLUCOSE, FASTING 208 MG/DL (70-100); LDH LACTATE DEHYDROGENASE 253 U/L (84-246); MAGNESIUM LEVEL 1.7 MG/DL (1.8-2.4); POTASSIUM SERUM 4.2 MEQ/L (3.5-5.1); SODIUM LEVEL 136 MEQ/L (136-145); TOTAL PROTEIN 6.1 GM/DL (6.4-8.2)
[2018-08-20 13:00] LABS: POS COUNT POS FLAG
[2018-08-20 13:03] LABS: IMMATURE PLATELET FRACTION % 8.9 % (0.0-9.6); PLATELET COUNT, AUTOMATED 22 10^3/uL (150-450)
[2018-08-23 00:08] LABS: FK 506 (TACROLIMUS) LABCORP 6.5 ng/mL (2.0-20.0)
== END ==
LOC: M LAB REF 12:05
DX: Z94.81 Bone marrow transplant status (principal)
CPT/HCPCS: 83615

== ENCOUNTER → 2018-08-27 | Outpatient (REF) | payer MEDICARE, OTHER ==
[2018-08-27 11:01] LABS: BASO % 0.3 % (0.0-1.0); EOS # 0.1 10^3/uL (0.0-0.50); HEMATOCRIT 32.3 % (36.0-47.0); HEMOGLOBIN 10.6 g/dl (12.0-15.5); IMMATURE GRANULOCYTE % 0.4 % (0-3.0); LYMPH # 1.6 10^3/uL (1.5-4.5); LYMPH % 23.1 % (24.0-44.0); MEAN CORPUSCULAR HEMOGLOBIN 30.3 pg (27.0-33.0); MEAN CORPUSCULAR HGB CONC 32.8 g/dl (32.0-36.5); MEAN CORPUSCULAR VOLUME 92.3 fl (80.0-96.0); MONO # 0.6 10^3/uL (0.0-0.8); MONO % 9.2 % (0.0-5.0); NEUTROPHILS # 4.5 10^3/uL (1.8-7.7); RED CELL DISTRIBUTION WIDTH 13.9 % (11.5-14.5); WHITE BLOOD COUNT 6.8 10^3/uL (4.0-10.0)
[2018-08-27 11:07] LABS: ALBUMIN 3.4 GM/DL (3.2-5.2); ALBUMIN/GLOBULIN RATIO 1.26 (1.00-1.93); ALKALINE PHOSPHATASE 88 U/L (45-117); ALT/SGPT 35 U/L (12-78); ANION GAP 8 MEQ/L (8-16); AST/SGOT 14 U/L (7-37); BILIRUBIN,TOTAL 0.2 MG/DL (0.2-1.0); BLOOD UREA NITROGEN 32 MG/DL (7-18); CALCIUM LEVEL 9.2 MG/DL (8.8-10.2); CARBON DIOXIDE LEVEL 26 MEQ/L (21-32); CHLORIDE LEVEL 105 MEQ/L (98-107); CREATININE FOR GFR 1.24 MG/DL (0.55-1.30); GLOMERULAR FILTRATION RATE 46.8 (>45); GLUCOSE, FASTING 195 MG/DL (70-100); LDH LACTATE DEHYDROGENASE 250 U/L (84-246); MAGNESIUM LEVEL 1.6 MG/DL (1.8-2.4); POTASSIUM SERUM 3.7 MEQ/L (3.5-5.1); SODIUM LEVEL 139 MEQ/L (136-145); TOTAL PROTEIN 6.1 GM/DL (6.4-8.2)
[2018-08-27 11:14] LABS: PLATELET COUNT, AUTOMATED 44 10^3/uL (150-450)
[2018-08-27 11:35] LABS: IMMATURE PLATELET FRACTION % 6.7 % (0.0-9.6)
[2018-08-30 17:40] LABS: FK 506 (TACROLIMUS) LABCORP 23.2 ng/mL (2.0-20.0)
== END ==
LOC: M LAB REF 10:35
DX: Z94.81 Bone marrow transplant status (principal)
CPT/HCPCS: 83615

== ENCOUNTER → 2018-09-03 | Outpatient (REF) | payer MEDICARE, OTHER ==
[2018-09-03 10:50] LABS: BASO % 0.1 % (0.0-1.0); EOS # 0.1 10^3/uL (0.0-0.50); EOS % 0.6 % (0.0-3.0); HEMATOCRIT 31.9 % (36.0-47.0); HEMOGLOBIN 10.4 g/dl (12.0-15.5); IMMATURE GRANULOCYTE % 0.4 % (0-3.0); LYMPH # 1.6 10^3/uL (1.5-4.5); LYMPH % 20.4 % (24.0-44.0); MEAN CORPUSCULAR HEMOGLOBIN 29.7 pg (27.0-33.0); MEAN CORPUSCULAR HGB CONC 32.6 g/dl (32.0-36.5); MEAN CORPUSCULAR VOLUME 91.1 fl (80.0-96.0); MONO # 0.6 10^3/uL (0.0-0.8); MONO % 7.8 % (0.0-5.0); NEUTROPHILS # 5.5 10^3/uL (1.8-7.7); NEUTROPHILS % 70.7 % (36.0-66.0); WHITE BLOOD COUNT 7.7 10^3/uL (4.0-10.0)
[2018-09-03 10:51] LABS: PLATELET COUNT, AUTOMATED 28 10^3/uL (150-450); POS COUNT POS FLAG
[2018-09-03 10:55] LABS: IMMATURE PLATELET FRACTION % 10.8 % (0.0-9.6)
[2018-09-03 11:13] LABS: ALBUMIN 3.3 GM/DL (3.2-5.2); ALBUMIN/GLOBULIN RATIO 1.27 (1.00-1.93); ALKALINE PHOSPHATASE 80 U/L (45-117); ALT/SGPT 31 U/L (12-78); ANION GAP 11 MEQ/L (8-16); AST/SGOT 14 U/L (7-37); BILIRUBIN,TOTAL 0.3 MG/DL (0.2-1.0); BLOOD UREA NITROGEN 31 MG/DL (7-18); CALCIUM LEVEL 9.3 MG/DL (8.8-10.2); CARBON DIOXIDE LEVEL 26 MEQ/L (21-32); CHLORIDE LEVEL 100 MEQ/L (98-107); CREATININE FOR GFR 1.28 MG/DL (0.55-1.30); GLOMERULAR FILTRATION RATE 45.1 (>45); GLUCOSE, FASTING 153 MG/DL (70-100); LDH LACTATE DEHYDROGENASE 269 U/L (84-246); MAGNESIUM LEVEL 1.7 MG/DL (1.8-2.4); POTASSIUM SERUM 3.9 MEQ/L (3.5-5.1); SODIUM LEVEL 137 MEQ/L (136-145); TOTAL PROTEIN 5.9 GM/DL (6.4-8.2)
[2018-09-06 00:06] LABS: FK 506 (TACROLIMUS) LABCORP 8.3 ng/mL (2.0-20.0)
== END ==
LOC: M LAB REF 10:28
DX: Z94.81 Bone marrow transplant status (principal)
CPT/HCPCS: 83615

== ENCOUNTER → 2018-09-10 | Outpatient (REF) | payer MEDICARE, OTHER ==
[2018-09-10 12:49] LABS: BASO % 0.4 % (0.0-1.0); EOS # 0.1 10^3/uL (0.0-0.50); EOS % 0.6 % (0.0-3.0); HEMATOCRIT 31.5 % (36.0-47.0); HEMOGLOBIN 10.5 g/dl (12.0-15.5); IMMATURE GRANULOCYTE % 0.8 % (0-3.0); LYMPH # 1.9 10^3/uL (1.5-4.5); LYMPH % 24.1 % (24.0-44.0); MEAN CORPUSCULAR HEMOGLOBIN 29.4 pg (27.0-33.0); MEAN CORPUSCULAR HGB CONC 33.3 g/dl (32.0-36.5); MEAN CORPUSCULAR VOLUME 88.2 fl (80.0-96.0); MONO # 0.8 10^3/uL (0.0-0.8); MONO % 10.1 % (0.0-5.0); RED BLOOD COUNT 3.57 10^6/uL (4.00-5.40); RED CELL DISTRIBUTION WIDTH 13.9 % (11.5-14.5); WHITE BLOOD COUNT 7.8 10^3/uL (4.0-10.0)
[2018-09-10 12:57] LABS: PLATELET COUNT, AUTOMATED 38 10^3/uL (150-450)
[2018-09-10 12:58] LABS: IMMATURE PLATELET FRACTION % 7.8 % (0.0-9.6)
[2018-09-10 13:58] LABS: ALBUMIN 3.2 GM/DL (3.2-5.2); ALKALINE PHOSPHATASE 78 U/L (45-117); ALT/SGPT 36 U/L (12-78); ANION GAP 14 MEQ/L (8-16); AST/SGOT 19 U/L (7-37); BILIRUBIN,TOTAL 0.4 MG/DL (0.2-1.0); BLOOD UREA NITROGEN 25 MG/DL (7-18); CALCIUM LEVEL 9.1 MG/DL (8.8-10.2); CARBON DIOXIDE LEVEL 24 MEQ/L (21-32); CHLORIDE LEVEL 96 MEQ/L (98-107); CREATININE FOR GFR 1.26 MG/DL (0.55-1.30); GLUCOSE, FASTING 156 MG/DL (70-100); LDH LACTATE DEHYDROGENASE 288 U/L (84-246); MAGNESIUM LEVEL 1.6 MG/DL (1.8-2.4); POTASSIUM SERUM 3.9 MEQ/L (3.5-5.1); SODIUM LEVEL 134 MEQ/L (136-145); TOTAL PROTEIN 6.1 GM/DL (6.4-8.2)
[2018-09-14 00:07] LABS: FK 506 (TACROLIMUS) LABCORP 4.7 ng/mL (2.0-20.0)
== END ==
LOC: M LAB REF 11:52
DX: Z94.81 Bone marrow transplant status (principal)
CPT/HCPCS: 83615

== ENCOUNTER → 2018-09-18 | Outpatient (REF) | payer MEDICARE, OTHER ==
[2018-09-18 14:21] LABS: BASO % 0.4 % (0.0-1.0); EOS # 0.1 10^3/uL (0.0-0.50); EOS % 1.2 % (0.0-3.0); HEMATOCRIT 29.9 % (36.0-47.0); IMMATURE GRANULOCYTE % 0.4 % (0-3.0); LYMPH # 1.7 10^3/uL (1.5-4.5); MEAN CORPUSCULAR HEMOGLOBIN 30.3 pg (27.0-33.0); MEAN CORPUSCULAR HGB CONC 33.4 g/dl (32.0-36.5); MEAN CORPUSCULAR VOLUME 90.6 fl (80.0-96.0); MONO # 0.7 10^3/uL (0.0-0.8); MONO % 9.3 % (0.0-5.0); NEUTROPHILS # 5.1 10^3/uL (1.8-7.7); NEUTROPHILS % 66.7 % (36.0-66.0); RED CELL DISTRIBUTION WIDTH 14.3 % (11.5-14.5); WHITE BLOOD COUNT 7.6 10^3/uL (4.0-10.0)
[2018-09-18 14:22] LABS: PLATELET COUNT, AUTOMATED 40 10^3/uL (150-450)
[2018-09-18 14:23] LABS: IMMATURE PLATELET FRACTION % 7.8 % (0.0-9.6)
[2018-09-18 14:27] LABS: ALBUMIN 3.3 GM/DL (3.2-5.2); ALBUMIN/GLOBULIN RATIO 1.32 (1.00-1.93); ALKALINE PHOSPHATASE 88 U/L (45-117); ALT/SGPT 31 U/L (12-78); ANION GAP 12 MEQ/L (8-16); AST/SGOT 14 U/L (7-37); BILIRUBIN,TOTAL 0.3 MG/DL (0.2-1.0); BLOOD UREA NITROGEN 31 MG/DL (7-18); CALCIUM LEVEL 9.4 MG/DL (8.8-10.2); CARBON DIOXIDE LEVEL 25 MEQ/L (21-32); CHLORIDE LEVEL 96 MEQ/L (98-107); CREATININE FOR GFR 1.27 MG/DL (0.55-1.30); GLOMERULAR FILTRATION RATE 45.5 (>45); GLUCOSE, FASTING 162 MG/DL (70-100); LDH LACTATE DEHYDROGENASE 255 U/L (84-246); MAGNESIUM LEVEL 1.8 MG/DL (1.8-2.4); POTASSIUM SERUM 3.9 MEQ/L (3.5-5.1); SODIUM LEVEL 133 MEQ/L (136-145); TOTAL PROTEIN 5.8 GM/DL (6.4-8.2)
== END ==
LOC: M LAB REF 13:07
DX: Z94.81 Bone marrow transplant status (principal)
CPT/HCPCS: 83615

== ENCOUNTER 2018-09-22 13:41 | Emergency (ER) | payer MEDICARE, OTHER ==
[2018-09-22 14:43] LABS: BASO % 0.1 % (0.0-1.0); EOS # 0.1 10^3/uL (0.0-0.50); EOS % 1.3 % (0.0-3.0); HEMATOCRIT 31.6 % (36.0-47.0); HEMOGLOBIN 10.6 g/dl (12.0-15.5); IMMATURE GRANULOCYTE % 0.5 % (0-3.0); LYMPH # 1.8 10^3/uL (1.5-4.5); LYMPH % 23.1 % (24.0-44.0); MEAN CORPUSCULAR HEMOGLOBIN 29.9 pg (27.0-33.0); MEAN CORPUSCULAR HGB CONC 33.5 g/dl (32.0-36.5); MONO # 0.8 10^3/uL (0.0-0.8); MONO % 9.8 % (0.0-5.0); NEUTROPHILS # 5.1 10^3/uL (1.8-7.7); NEUTROPHILS % 65.2 % (36.0-66.0); RED BLOOD COUNT 3.55 10^6/uL (4.00-5.40); RED CELL DISTRIBUTION WIDTH 14.1 % (11.5-14.5); WHITE BLOOD COUNT 7.9 10^3/uL (4.0-10.0)
[2018-09-22 14:46] LABS: IMMATURE PLATELET FRACTION % 7.9 % (0.0-9.6); PLATELET COUNT, AUTOMATED 57 10^3/uL (150-450)
[2018-09-22 14:55] LABS: INR 1.03; PROTHROMBIN TIME 13.6 SECONDS (12.1-14.4)
[2018-09-22 14:56] LABS: ALBUMIN 3.3 GM/DL (3.2-5.2); ALBUMIN/GLOBULIN RATIO 0.94 (1.00-1.93); ALKALINE PHOSPHATASE 86 U/L (45-117); ALT/SGPT 33 U/L (12-78); ANION GAP 10 MEQ/L (8-16); AST/SGOT 20 U/L (7-37); BILIRUBIN,DIRECT < 0.1 MG/DL (0.0-0.2); BILIRUBIN,TOTAL 0.3 MG/DL (0.2-1.0); BLOOD UREA NITROGEN 35 MG/DL (7-18); CALCIUM LEVEL 9.4 MG/DL (8.8-10.2); CARBON DIOXIDE LEVEL 26 MEQ/L (21-32); CHLORIDE LEVEL 96 MEQ/L (98-107); CK-MB VALUE MASS < 1.0 NG/ML (<3.6); CPK CREATINE PHOSPHOKINASE 30 U/L (26-192); CREATININE FOR GFR 1.37 MG/DL (0.55-1.30); FREE T4 1.07 NG/DL (0.76-1.46); GLOMERULAR FILTRATION RATE 41.7 (>45); GLUCOSE, FASTING 156 MG/DL (70-100); LIPASE 104 U/L (73-393); MB/CK RELATIVE INDEX 3.33 (< OR =4); NT-PRO BNP 508 PG/ML (<125); PARTIAL THROMBOPLASTIN TIME 28.8 SECONDS (25.4-37.6); POTASSIUM SERUM 3.9 MEQ/L (3.5-5.1); SODIUM LEVEL 132 MEQ/L (136-145); TOTAL PROTEIN 6.8 GM/DL (6.4-8.2); TROPONIN I < 0.02 NG/ML (< 0.10)
[2018-09-22] MEDS: NITROGLYCERIN 0.4 MG SUBL TABLET SL (15:01)
[2018-09-22] MEDS: ASPIRIN 81 MG CHEW TABLET PO (15:22)
[2018-09-22] MEDS: diphenhydrAMINE INJ 50MG/ML VIAL (J1200) IV (16:54)
[2018-09-22] MEDS: methylPREDNISolone INJ 125 MG/2 ML VIAL (J2930) IV (16:54)
[2018-09-22] MEDS ORDERED: ISOVUE-370 76% 100ML VIAL (Q9967) As Ordered (16:58)
[2018-09-22] MEDS: ACETAMINOPHEN TAB 650MG DOSE (2X325MG) PO (18:17)
[2018-09-22 19:30] LABS: CK-MB VALUE MASS < 1.0 NG/ML (<3.6); CPK CREATINE PHOSPHOKINASE 24 U/L (26-192); MB/CK RELATIVE INDEX 4.17 (< OR =4); TROPONIN I < 0.02 NG/ML (< 0.10)
== END 2018-09-22 20:21 | disposition home or self-care (01) ==
LOC: M ED 13:41
DX: R07.89 Other chest pain (principal); I48.91 Unspecified atrial fibrillation; E11.9 Type 2 diabetes mellitus without complications; I10 Essential (primary) hypertension; J45.909 Unspecified asthma, uncomplicated; Z91.041 Radiographic dye allergy status; Z91.018 Allergy to other foods; Z88.8 Allergy status to other drugs, medicaments and biological substances; Z88.0 Allergy status to penicillin; Z88.1 Allergy status to other antibiotic agents; Z79.4 Long term (current) use of insulin; Z79.899 Other long term (current) drug therapy; Z79.890 Hormone replacement therapy
CPT/HCPCS: J1200

== ENCOUNTER → 2018-09-22 | Outpatient (CLI) | payer MEDICARE, OTHER | LOC: M LRY 12:51 | DX: R05 Cough (principal); Z53.8 Procedure and treatment not carried out for other reasons ==

== ENCOUNTER → 2018-09-25 | Outpatient (REF) | payer MEDICARE, OTHER ==
[2018-09-25 13:52] LABS: BASO % 0.1 % (0.0-1.0); EOS # 0.1 10^3/uL (0.0-0.50); HEMATOCRIT 30.3 % (36.0-47.0); HEMOGLOBIN 9.9 g/dl (12.0-15.5); IMMATURE GRANULOCYTE % 0.6 % (0-3.0); LYMPH # 1.4 10^3/uL (1.5-4.5); LYMPH % 16.1 % (24.0-44.0); MEAN CORPUSCULAR HEMOGLOBIN 29.6 pg (27.0-33.0); MEAN CORPUSCULAR HGB CONC 32.7 g/dl (32.0-36.5); MEAN CORPUSCULAR VOLUME 90.7 fl (80.0-96.0); MONO # 0.8 10^3/uL (0.0-0.8); MONO % 9.8 % (0.0-5.0); NEUTROPHILS # 6.1 10^3/uL (1.8-7.7); NEUTROPHILS % 72.4 % (36.0-66.0); RED BLOOD COUNT 3.34 10^6/uL (4.00-5.40); RED CELL DISTRIBUTION WIDTH 14.5 % (11.5-14.5); WHITE BLOOD COUNT 8.4 10^3/uL (4.0-10.0)
[2018-09-25 13:58] LABS: ALBUMIN 3.6 GM/DL (3.2-5.2); ALBUMIN/GLOBULIN RATIO 1.44 (1.00-1.93); ALKALINE PHOSPHATASE 82 U/L (45-117); ALT/SGPT 35 U/L (12-78); ANION GAP 8 MEQ/L (8-16); AST/SGOT 14 U/L (7-37); BILIRUBIN,TOTAL 0.3 MG/DL (0.2-1.0); BLOOD UREA NITROGEN 38 MG/DL (7-18); CALCIUM LEVEL 9.4 MG/DL (8.8-10.2); CARBON DIOXIDE LEVEL 27 MEQ/L (21-32); CHLORIDE LEVEL 101 MEQ/L (98-107); CREATININE FOR GFR 1.32 MG/DL (0.55-1.30); GLOMERULAR FILTRATION RATE 43.6 (>45); GLUCOSE, FASTING 129 MG/DL (70-100); LDH LACTATE DEHYDROGENASE 262 U/L (84-246); MAGNESIUM LEVEL 1.7 MG/DL (1.8-2.4); POTASSIUM SERUM 4.6 MEQ/L (3.5-5.1); SODIUM LEVEL 136 MEQ/L (136-145); TOTAL PROTEIN 6.1 GM/DL (6.4-8.2)
[2018-09-25 14:06] LABS: PLATELET COUNT, AUTOMATED 57 10^3/uL (150-450)
[2018-09-25 14:07] LABS: IMMATURE PLATELET FRACTION % 5.2 % (0.0-9.6)
[2018-09-28 00:06] LABS: FK 506 (TACROLIMUS) LABCORP 6.1 ng/mL (2.0-20.0)
== END ==
LOC: M LAB REF 13:21
DX: Z94.81 Bone marrow transplant status (principal)
CPT/HCPCS: 83615

== ENCOUNTER → 2018-10-02 | Outpatient (REF) | payer MEDICARE, OTHER ==
[2018-10-02 12:46] LABS: BASO % 0.3 % (0.0-1.0); EOS # 0.1 10^3/uL (0.0-0.50); HEMATOCRIT 29.5 % (36.0-47.0); HEMOGLOBIN 9.8 g/dl (12.0-15.5); IMMATURE GRANULOCYTE % 0.7 % (0-3.0); LYMPH # 1.7 10^3/uL (1.5-4.5); LYMPH % 22.8 % (24.0-44.0); MEAN CORPUSCULAR HEMOGLOBIN 29.6 pg (27.0-33.0); MEAN CORPUSCULAR HGB CONC 33.2 g/dl (32.0-36.5); MEAN CORPUSCULAR VOLUME 89.1 fl (80.0-96.0); MONO # 0.7 10^3/uL (0.0-0.8); MONO % 9.8 % (0.0-5.0); NEUTROPHILS # 4.8 10^3/uL (1.8-7.7); NEUTROPHILS % 65.4 % (36.0-66.0); PLATELET COUNT, AUTOMATED 50 10^3/uL (150-450); RED BLOOD COUNT 3.31 10^6/uL (4.00-5.40); RED CELL DISTRIBUTION WIDTH 14.4 % (11.5-14.5); WHITE BLOOD COUNT 7.3 10^3/uL (4.0-10.0)
[2018-10-02 12:47] LABS: IMMATURE PLATELET FRACTION % 8.2 % (0.0-9.6)
[2018-10-02 13:09] LABS: ALBUMIN 3.4 GM/DL (3.2-5.2); ALBUMIN/GLOBULIN RATIO 1.48 (1.00-1.93); ALKALINE PHOSPHATASE 73 U/L (45-117); ALT/SGPT 35 U/L (12-78); ANION GAP 10 MEQ/L (8-16); AST/SGOT 13 U/L (7-37); BILIRUBIN,TOTAL 0.3 MG/DL (0.2-1.0); BLOOD UREA NITROGEN 36 MG/DL (7-18); CALCIUM LEVEL 9.1 MG/DL (8.8-10.2); CARBON DIOXIDE LEVEL 26 MEQ/L (21-32); CHLORIDE LEVEL 96 MEQ/L (98-107); CREATININE FOR GFR 1.15 MG/DL (0.55-1.30); GLOMERULAR FILTRATION RATE 51.1 (>45); GLUCOSE, FASTING 157 MG/DL (70-100); LDH LACTATE DEHYDROGENASE 236 U/L (84-246); MAGNESIUM LEVEL 1.6 MG/DL (1.8-2.4); POTASSIUM SERUM 4.1 MEQ/L (3.5-5.1); SODIUM LEVEL 132 MEQ/L (136-145); TOTAL PROTEIN 5.7 GM/DL (6.4-8.2)
== END ==
LOC: M LAB REF 12:25
DX: D47.1 Chronic myeloproliferative disease (principal); T86.5 Complications of stem cell transplant; D89.813 Graft-versus-host disease, unspecified; Z94.81 Bone marrow transplant status
CPT/HCPCS: 83615

== ENCOUNTER → 2018-10-10 | Outpatient (REF) | payer MEDICARE, OTHER ==
[2018-10-10 12:40] LABS: BASO % 0.3 % (0.0-1.0); EOS # 0.1 10^3/uL (0.0-0.50); EOS % 1.2 % (0.0-3.0); HEMATOCRIT 31.5 % (36.0-47.0); HEMOGLOBIN 10.3 g/dl (12.0-15.5); IMMATURE GRANULOCYTE % 0.5 % (0-3.0); LYMPH # 1.7 10^3/uL (1.5-4.5); LYMPH % 25.6 % (24.0-44.0); MEAN CORPUSCULAR HEMOGLOBIN 29.3 pg (27.0-33.0); MEAN CORPUSCULAR HGB CONC 32.7 g/dl (32.0-36.5); MEAN CORPUSCULAR VOLUME 89.5 fl (80.0-96.0); MONO # 0.7 10^3/uL (0.0-0.8); MONO % 10.5 % (0.0-5.0); NEUTROPHILS % 61.9 % (36.0-66.0); RED BLOOD COUNT 3.52 10^6/uL (4.00-5.40); RED CELL DISTRIBUTION WIDTH 14.6 % (11.5-14.5); WHITE BLOOD COUNT 6.5 10^3/uL (4.0-10.0)
[2018-10-10 12:43] LABS: PLATELET COUNT, AUTOMATED 52 10^3/uL (150-450)
[2018-10-10 13:02] LABS: ALBUMIN 3.6 GM/DL (3.2-5.2); ALBUMIN/GLOBULIN RATIO 1.33 (1.00-1.93); ALKALINE PHOSPHATASE 70 U/L (45-117); ALT/SGPT 34 U/L (12-78); ANION GAP 8 MEQ/L (8-16); AST/SGOT 12 U/L (7-37); BILIRUBIN,TOTAL 0.3 MG/DL (0.2-1.0); BLOOD UREA NITROGEN 33 MG/DL (7-18); CALCIUM LEVEL 9.9 MG/DL (8.8-10.2); CARBON DIOXIDE LEVEL 28 MEQ/L (21-32); CHLORIDE LEVEL 100 MEQ/L (98-107); CREATININE FOR GFR 1.12 MG/DL (0.55-1.30); GLOMERULAR FILTRATION RATE 52.7 (>45); GLUCOSE, FASTING 78 MG/DL (70-100); LDH LACTATE DEHYDROGENASE 292 U/L (84-246); MAGNESIUM LEVEL 1.6 MG/DL (1.8-2.4); POTASSIUM SERUM 4.3 MEQ/L (3.5-5.1); SODIUM LEVEL 136 MEQ/L (136-145); TOTAL PROTEIN 6.3 GM/DL (6.4-8.2)
[2018-10-10 13:06] LABS: IMMATURE PLATELET FRACTION % 7.5 % (0.0-9.6)
[2018-10-15 14:10] LABS: FK 506 (TACROLIMUS) LABCORP 5.1 ng/mL (2.0-20.0)
== END ==
LOC: M LAB REF 12:12
DX: Z94.81 Bone marrow transplant status (principal)

== ENCOUNTER → 2018-10-10 | Outpatient (CLI) | payer MEDICARE, OTHER ==
[2018-10-10 18:23] LABS: APPEARANCE, URINE CLEAR (CLEAR); BACTERIA, URINE AUTO NEGATIVE (NEGATIVE); BILIRUBIN, URINE AUTO NEGATIVE (NEGATIVE); BLOOD, URINE BLOOD NEGATIVE (NEGATIVE); COLOR, URINE STRAW (YELLOW); GLUCOSE, URINE (UA) AUTO NEGATIVE (NEGATIVE); KETONE, URINE AUTO NEGATIVE (NEGATIVE); LEUKOCYTE ESTERASE, URINE AUTO NEGATIVE (NEGATIVE); NITRITE, URINE AUTO NEGATIVE (NEGATIVE); PROTEIN, URINE AUTO NEGATIVE (NEGATIVE); RBC, URINE AUTO 0 /HPF (0-3); SPECIFIC GRAVITY URINE AUTO 1.005 (1.002-1.035); SQUAMOUS EPITHELIAL CELL UR AU 0 /HPF (0-6); UROBILINOGEN, URINE AUTO 0.2 mg/dL (0.0-2.0); WBC, URINE AUTO 0 /HPF (0-3)
[2018-10-10 18:24] LABS: BASO % 0.3 % (0.0-1.0); EOS # 0.1 10^3/uL (0.0-0.50); EOS % 1.2 % (0.0-3.0); HEMATOCRIT 32.2 % (36.0-47.0); HEMOGLOBIN 10.7 g/dl (12.0-15.5); IMMATURE GRANULOCYTE % 0.3 % (0-3.0); LYMPH # 1.5 10^3/uL (1.5-4.5); LYMPH % 21.7 % (24.0-44.0); MEAN CORPUSCULAR HEMOGLOBIN 29.5 pg (27.0-33.0); MEAN CORPUSCULAR HGB CONC 33.2 g/dl (32.0-36.5); MEAN CORPUSCULAR VOLUME 88.7 fl (80.0-96.0); MONO # 0.8 10^3/uL (0.0-0.8); MONO % 11.2 % (0.0-5.0); NEUTROPHILS # 4.5 10^3/uL (1.8-7.7); NEUTROPHILS % 65.3 % (36.0-66.0); RED BLOOD COUNT 3.63 10^6/uL (4.00-5.40); RED CELL DISTRIBUTION WIDTH 14.6 % (11.5-14.5); WHITE BLOOD COUNT 6.8 10^3/uL (4.0-10.0)
[2018-10-10 18:31] LABS: PLATELET COUNT, AUTOMATED 55 10^3/uL (150-450)
[2018-10-10 18:34] LABS: ALBUMIN 3.6 GM/DL (3.2-5.2); ANION GAP 10 MEQ/L (8-16); BLOOD UREA NITROGEN 31 MG/DL (7-18); CALCIUM LEVEL 9.5 MG/DL (8.8-10.2); CARBON DIOXIDE LEVEL 26 MEQ/L (21-32); CHLORIDE LEVEL 100 MEQ/L (98-107); GLOMERULAR FILTRATION RATE 53.8 (>45); GLUCOSE, FASTING 79 MG/DL (70-100); POTASSIUM SERUM 4.1 MEQ/L (3.5-5.1); SODIUM LEVEL 136 MEQ/L (136-145)
[2018-10-10 19:12] LABS: CREATININE,RANDOM URINE 19.4 MG/DL; TOTAL PROTEIN,RANDOM URINE 8.3 MG/DL (0.0-12.0)
== END ==
LOC: M LAB 16:24
DX: I12.9 Hypertensive chronic kidney disease with stage 1 through stage 4 chronic kidney disease, or unspecified chronic kidney disease (principal)
CPT/HCPCS: 83615

== ENCOUNTER → 2018-10-15 | Outpatient (REF) | payer MEDICARE, OTHER ==
[2018-10-15 11:53] LABS: BASO % 0.4 % (0.0-1.0); EOS # 0.1 10^3/uL (0.0-0.50); EOS % 1.4 % (0.0-3.0); HEMOGLOBIN 9.5 g/dl (12.0-15.5); IMMATURE GRANULOCYTE % 0.2 % (0-3.0); LYMPH # 1.5 10^3/uL (1.5-4.5); LYMPH % 30.2 % (24.0-44.0); MEAN CORPUSCULAR HEMOGLOBIN 29.5 pg (27.0-33.0); MEAN CORPUSCULAR HGB CONC 32.8 g/dl (32.0-36.5); MEAN CORPUSCULAR VOLUME 90.1 fl (80.0-96.0); MONO # 0.6 10^3/uL (0.0-0.8); MONO % 12.8 % (0.0-5.0); NEUTROPHILS # 2.7 10^3/uL (1.8-7.7); RED BLOOD COUNT 3.22 10^6/uL (4.00-5.40); RED CELL DISTRIBUTION WIDTH 14.7 % (11.5-14.5); WHITE BLOOD COUNT 4.8 10^3/uL (4.0-10.0)
[2018-10-15 11:57] LABS: PLATELET COUNT, AUTOMATED 34 10^3/uL (150-450)
[2018-10-15 12:16] LABS: ALBUMIN 3.4 GM/DL (3.2-5.2); ALBUMIN/GLOBULIN RATIO 1.48 (1.00-1.93); ALKALINE PHOSPHATASE 67 U/L (45-117); ALT/SGPT 31 U/L (12-78); ANION GAP 9 MEQ/L (8-16); AST/SGOT 15 U/L (7-37); BILIRUBIN,TOTAL 0.3 MG/DL (0.2-1.0); BLOOD UREA NITROGEN 36 MG/DL (7-18); CALCIUM LEVEL 9.1 MG/DL (8.8-10.2); CARBON DIOXIDE LEVEL 25 MEQ/L (21-32); CHLORIDE LEVEL 103 MEQ/L (98-107); CREATININE FOR GFR 1.29 MG/DL (0.55-1.30); GLOMERULAR FILTRATION RATE 44.7 (>45); GLUCOSE, FASTING 150 MG/DL (70-100); LDH LACTATE DEHYDROGENASE 238 U/L (84-246); MAGNESIUM LEVEL 1.6 MG/DL (1.8-2.4); SODIUM LEVEL 137 MEQ/L (136-145); TOTAL PROTEIN 5.7 GM/DL (6.4-8.2)
[2018-10-19 14:13] LABS: FK 506 (TACROLIMUS) LABCORP 4.1 ng/mL (2.0-20.0)
== END ==
LOC: M LAB REF 11:07
DX: Z94.81 Bone marrow transplant status (principal)
CPT/HCPCS: 83615

== ENCOUNTER → 2018-10-22 | Outpatient (REF) | payer MEDICARE, OTHER ==
[~2018-10-22] MED LIST changes: -AMLO10TA2 PO; +AMLO10TA4 PO; -BENZ200C53 PO; +BENZ200C70 PO; +CLIN150C14 PO; -DILT120C PO; +DILT120C77 PO; +ESTR1TD TOP; +FLEC50HA PO; -FLEC50TA PO; +GABA-843 PO; +HUMA100I5 SC; +IPRA0.00 NEB; -IPRASOL4 NEB; -PANT40TA2 PO; +PANT40TA3 PO; +PILO5TAB3 PO; +PRED10TA2 PO; -PROM12.55 PO; +PROM12.56 PO; +SPIR-10 PO; -SPIR25TA2 PO; +STOO100C PO; +TRAZ-160 PO; -TRAZ50TA11 PO
[2018-10-22 11:54] LABS: BASO % 0.4 % (0.0-1.0); EOS # 0.1 10^3/uL (0.0-0.50); EOS % 1.7 % (0.0-3.0); HEMATOCRIT 29.2 % (36.0-47.0); HEMOGLOBIN 9.4 g/dl (12.0-15.5); LYMPH % 22.1 % (24.0-44.0); MEAN CORPUSCULAR HEMOGLOBIN 29.3 pg (27.0-33.0); MEAN CORPUSCULAR HGB CONC 32.2 g/dl (32.0-36.5); MONO # 0.4 10^3/uL (0.0-0.8); MONO % 8.9 % (0.0-5.0); NEUTROPHILS # 3.1 10^3/uL (1.8-7.7); NEUTROPHILS % 66.7 % (36.0-66.0); RED BLOOD COUNT 3.21 10^6/uL (4.00-5.40); WHITE BLOOD COUNT 4.7 10^3/uL (4.0-10.0)
[2018-10-22 12:00] LABS: PLATELET COUNT, AUTOMATED 36 10^3/uL (150-450)
[2018-10-22 12:25] LABS: ALBUMIN 3.2 GM/DL (3.2-5.2); BILIRUBIN,TOTAL 0.2 MG/DL (0.2-1.0); CALCIUM LEVEL 8.9 MG/DL (8.8-10.2); CREATININE FOR GFR 1.5 MG/DL (0.55-1.30); GLOMERULAR FILTRATION RATE 37.6 (>45); MAGNESIUM LEVEL 1.7 MG/DL (1.8-2.4); POTASSIUM SERUM 3.8 MEQ/L (3.5-5.1); TOTAL PROTEIN 5.9 GM/DL (6.4-8.2)
== END ==
LOC: M LAB REF 11:16
PROVIDERS: ATTEND Internal Medicine
DX: Z94.81 Bone marrow transplant status (principal)

== ENCOUNTER → 2018-10-29 | Outpatient (REF) | payer MEDICARE, OTHER ==
[~2018-10-29] MED LIST changes: -AMLO10TA4 PO; +AMLO10TA5 PO
[2018-10-29 11:08] LABS: BASO % 0.4 % (0.0-1.0); EOS # 0.1 10^3/uL (0.0-0.50); EOS % 2.1 % (0.0-3.0); HEMATOCRIT 29.2 % (36.0-47.0); HEMOGLOBIN 9.4 g/dl (12.0-15.5); LYMPH # 1.2 10^3/uL (1.5-4.5); LYMPH % 20.9 % (24.0-44.0); MEAN CORPUSCULAR HEMOGLOBIN 29.2 pg (27.0-33.0); MEAN CORPUSCULAR HGB CONC 32.2 g/dl (32.0-36.5); MEAN CORPUSCULAR VOLUME 90.7 fl (80.0-96.0); MONO # 0.5 10^3/uL (0.0-0.8); NEUTROPHILS # 3.8 10^3/uL (1.8-7.7); NEUTROPHILS % 67.2 % (36.0-66.0); RED BLOOD COUNT 3.22 10^6/uL (4.00-5.40); WHITE BLOOD COUNT 5.7 10^3/uL (4.0-10.0)
[2018-10-29 11:09] LABS: PLATELET COUNT, AUTOMATED 57 10^3/uL (150-450)
[2018-10-29 11:33] LABS: ALBUMIN 3.2 GM/DL (3.2-5.2); BILIRUBIN,TOTAL 0.2 MG/DL (0.2-1.0); CALCIUM LEVEL 8.6 MG/DL (8.8-10.2); CREATININE FOR GFR 1.31 MG/DL (0.55-1.30); GLOMERULAR FILTRATION RATE 43.9 (>45); MAGNESIUM LEVEL 1.7 MG/DL (1.8-2.4); POTASSIUM SERUM 4.2 MEQ/L (3.5-5.1); TOTAL PROTEIN 5.7 GM/DL (6.4-8.2)
== END ==
LOC: M LAB REF 10:52
PROVIDERS: ATTEND Internal Medicine
DX: Z94.81 Bone marrow transplant status (principal)

== ENCOUNTER → 2018-11-05 | Outpatient (REF) | payer MEDICARE, OTHER ==
[2018-11-05 12:24] LABS: BASO % 0.2 % (0.0-1.0); EOS # 0.1 10^3/uL (0.0-0.50); EOS % 1.3 % (0.0-3.0); HEMATOCRIT 30.5 % (36.0-47.0); LYMPH # 1.4 10^3/uL (1.5-4.5); LYMPH % 23.6 % (24.0-44.0); MEAN CORPUSCULAR HEMOGLOBIN 28.2 pg (27.0-33.0); MEAN CORPUSCULAR HGB CONC 32.8 g/dl (32.0-36.5); MEAN CORPUSCULAR VOLUME 86.2 fl (80.0-96.0); MONO # 0.6 10^3/uL (0.0-0.8); MONO % 10.6 % (0.0-5.0); NEUTROPHILS # 3.8 10^3/uL (1.8-7.7); NEUTROPHILS % 63.8 % (36.0-66.0); PLATELET COUNT, AUTOMATED 67 10^3/uL (150-450); RED BLOOD COUNT 3.54 10^6/uL (4.00-5.40); WHITE BLOOD COUNT 5.9 10^3/uL (4.0-10.0)
[2018-11-05 12:37] LABS: ALBUMIN 3.4 GM/DL (3.2-5.2); BILIRUBIN,TOTAL 0.3 MG/DL (0.2-1.0); CALCIUM LEVEL 8.9 MG/DL (8.8-10.2); CREATININE FOR GFR 1.24 MG/DL (0.55-1.30); GLOMERULAR FILTRATION RATE 46.8 (>45); MAGNESIUM LEVEL 1.7 MG/DL (1.8-2.4); POTASSIUM SERUM 3.9 MEQ/L (3.5-5.1); TOTAL PROTEIN 5.9 GM/DL (6.4-8.2)
== END ==
LOC: M LAB REF 11:32
PROVIDERS: ATTEND Internal Medicine
DX: Z94.81 Bone marrow transplant status (principal)

== ENCOUNTER → 2018-11-12 | Outpatient (REF) | payer MEDICARE, OTHER ==
[2018-11-12 13:40] LABS: BASO % 0.3 % (0.0-1.0); EOS # 0.1 10^3/uL (0.0-0.50); HEMOGLOBIN 10.5 g/dl (12.0-15.5); LYMPH # 1.1 10^3/uL (1.5-4.5); LYMPH % 16.2 % (24.0-44.0); MEAN CORPUSCULAR HEMOGLOBIN 28.7 pg (27.0-33.0); MEAN CORPUSCULAR HGB CONC 32.8 g/dl (32.0-36.5); MEAN CORPUSCULAR VOLUME 87.4 fl (80.0-96.0); MONO # 0.5 10^3/uL (0.0-0.8); NEUTROPHILS # 4.7 10^3/uL (1.8-7.7); NEUTROPHILS % 73.2 % (36.0-66.0); RED BLOOD COUNT 3.66 10^6/uL (4.00-5.40); WHITE BLOOD COUNT 6.5 10^3/uL (4.0-10.0)
[2018-11-12 13:44] LABS: PLATELET COUNT, AUTOMATED 49 10^3/uL (150-450)
[2018-11-12 13:56] LABS: ALBUMIN 3.4 GM/DL (3.2-5.2); BILIRUBIN,TOTAL 0.2 MG/DL (0.2-1.0); CREATININE FOR GFR 1.36 MG/DL (0.55-1.30); GLOMERULAR FILTRATION RATE 42.1 (>45); MAGNESIUM LEVEL 1.7 MG/DL (1.8-2.4); POTASSIUM SERUM 4.3 MEQ/L (3.5-5.1); TOTAL PROTEIN 6.1 GM/DL (6.4-8.2)
== END ==
LOC: M LAB REF 12:58
PROVIDERS: ATTEND Internal Medicine
DX: Z94.81 Bone marrow transplant status (principal)

== ENCOUNTER → 2018-11-19 | Outpatient (REF) | payer MEDICARE, OTHER ==
[2018-11-19 15:21] LABS: BASO % 0.3 % (0.0-1.0); EOS # 0.1 10^3/uL (0.0-0.50); EOS % 1.5 % (0.0-3.0); HEMATOCRIT 30.2 % (36.0-47.0); HEMOGLOBIN 9.9 g/dl (12.0-15.5); LYMPH # 1.1 10^3/uL (1.5-4.5); LYMPH % 18.6 % (24.0-44.0); MEAN CORPUSCULAR HEMOGLOBIN 28.6 pg (27.0-33.0); MEAN CORPUSCULAR HGB CONC 32.8 g/dl (32.0-36.5); MEAN CORPUSCULAR VOLUME 87.3 fl (80.0-96.0); MONO # 0.6 10^3/uL (0.0-0.8); MONO % 9.7 % (0.0-5.0); NEUTROPHILS # 4.2 10^3/uL (1.8-7.7); NEUTROPHILS % 69.6 % (36.0-66.0); RED BLOOD COUNT 3.46 10^6/uL (4.00-5.40); WHITE BLOOD COUNT 6.1 10^3/uL (4.0-10.0)
[2018-11-19 15:23] LABS: ALBUMIN 3.4 GM/DL (3.2-5.2); BILIRUBIN,TOTAL 0.2 MG/DL (0.2-1.0); CALCIUM LEVEL 9.1 MG/DL (8.8-10.2); CREATININE FOR GFR 1.36 MG/DL (0.55-1.30); GLOMERULAR FILTRATION RATE 42.1 (>45); MAGNESIUM LEVEL 1.9 MG/DL (1.8-2.4); POTASSIUM SERUM 4.5 MEQ/L (3.5-5.1); TOTAL PROTEIN 5.8 GM/DL (6.4-8.2)
[2018-11-19 15:28] LABS: PLATELET COUNT, AUTOMATED 51 10^3/uL (150-450)
== END ==
LOC: M LAB REF 14:06
PROVIDERS: ATTEND Internal Medicine
DX: Z94.81 Bone marrow transplant status (principal)

== ENCOUNTER → 2018-11-27 | Outpatient (REF) | payer MEDICARE, OTHER ==
[2018-11-27 12:52] LABS: BASO % 0.6 % (0.0-1.0); EOS # 0.1 10^3/uL (0.0-0.50); EOS % 1.7 % (0.0-3.0); HEMATOCRIT 30.1 % (36.0-47.0); HEMOGLOBIN 9.7 g/dl (12.0-15.5); LYMPH # 1.3 10^3/uL (1.5-4.5); LYMPH % 24.8 % (24.0-44.0); MEAN CORPUSCULAR HEMOGLOBIN 28.4 pg (27.0-33.0); MEAN CORPUSCULAR HGB CONC 32.2 g/dl (32.0-36.5); MEAN CORPUSCULAR VOLUME 88.3 fl (80.0-96.0); MONO # 0.7 10^3/uL (0.0-0.8); MONO % 12.5 % (0.0-5.0); NEUTROPHILS # 3.2 10^3/uL (1.8-7.7); NEUTROPHILS % 60.2 % (36.0-66.0); RED BLOOD COUNT 3.41 10^6/uL (4.00-5.40); WHITE BLOOD COUNT 5.3 10^3/uL (4.0-10.0)
[2018-11-27 12:53] LABS: PLATELET COUNT, AUTOMATED 56 10^3/uL (150-450)
[2018-11-27 13:10] LABS: ALBUMIN 3.3 GM/DL (3.2-5.2); BILIRUBIN,TOTAL 0.2 MG/DL (0.2-1.0); CREATININE FOR GFR 1.67 MG/DL (0.55-1.30); GLOMERULAR FILTRATION RATE 33.2 (>45); MAGNESIUM LEVEL 1.7 MG/DL (1.8-2.4); POTASSIUM SERUM 4.7 MEQ/L (3.5-5.1); TOTAL PROTEIN 5.7 GM/DL (6.4-8.2)
== END ==
LOC: M LAB REF 11:24
PROVIDERS: ATTEND Internal Medicine
DX: Z94.81 Bone marrow transplant status (principal)

== ENCOUNTER → 2018-12-03 | Outpatient (REF) | payer MEDICARE, OTHER ==
[~2018-12-03] MED LIST changes: +AMLO25TA PO; +LANTINJ4 SQ; +RANI150T OR; +REPA1TAB OR
[2018-12-03 13:01] LABS: BASO % 0.3 % (0.0-1.0); EOS # 0.1 10^3/uL (0.0-0.50); EOS % 0.8 % (0.0-3.0); HEMATOCRIT 32.1 % (36.0-47.0); HEMOGLOBIN 10.5 g/dl (12.0-15.5); LYMPH # 1.1 10^3/uL (1.5-4.5); LYMPH % 18.1 % (24.0-44.0); MEAN CORPUSCULAR HEMOGLOBIN 28.8 pg (27.0-33.0); MEAN CORPUSCULAR HGB CONC 32.7 g/dl (32.0-36.5); MEAN CORPUSCULAR VOLUME 87.9 fl (80.0-96.0); MONO # 0.5 10^3/uL (0.0-0.8); MONO % 8.2 % (0.0-5.0); NEUTROPHILS # 4.5 10^3/uL (1.8-7.7); NEUTROPHILS % 72.3 % (36.0-66.0); RED BLOOD COUNT 3.65 10^6/uL (4.00-5.40); WHITE BLOOD COUNT 6.2 10^3/uL (4.0-10.0)
[2018-12-03 13:15] LABS: ALBUMIN 3.6 GM/DL (3.2-5.2); BILIRUBIN,TOTAL 0.3 MG/DL (0.2-1.0); CALCIUM LEVEL 9.1 MG/DL (8.8-10.2); CREATININE FOR GFR 1.9 MG/DL (0.55-1.30); GLOMERULAR FILTRATION RATE 28.6 (>45); POTASSIUM SERUM 4.9 MEQ/L (3.5-5.1); TOTAL PROTEIN 5.9 GM/DL (6.4-8.2)
[2018-12-03 13:25] LABS: PLATELET COUNT, AUTOMATED 56 10^3/uL (150-450)
== END ==
LOC: M LAB REF 12:32
PROVIDERS: ATTEND Internal Medicine
DX: Z94.81 Bone marrow transplant status (principal)

== ENCOUNTER → 2018-12-10 | Outpatient (REF) | payer MEDICARE, OTHER ==
[~2018-12-10] MED LIST changes: -AMLO25TA PO; -LANTINJ4 SQ; -RANI150T OR; -REPA1TAB OR
[2018-12-10 14:20] LABS: BASO % 0.5 % (0.0-1.0); EOS # 0.1 10^3/uL (0.0-0.50); EOS % 1.6 % (0.0-3.0); HEMATOCRIT 32.7 % (36.0-47.0); HEMOGLOBIN 10.6 g/dl (12.0-15.5); LYMPH # 1.1 10^3/uL (1.5-4.5); LYMPH % 18.2 % (24.0-44.0); MEAN CORPUSCULAR HEMOGLOBIN 28.6 pg (27.0-33.0); MEAN CORPUSCULAR HGB CONC 32.4 g/dl (32.0-36.5); MEAN CORPUSCULAR VOLUME 88.4 fl (80.0-96.0); MONO # 0.7 10^3/uL (0.0-0.8); MONO % 11.4 % (0.0-5.0); NEUTROPHILS # 4.2 10^3/uL (1.8-7.7); WHITE BLOOD COUNT 6.2 10^3/uL (4.0-10.0)
[2018-12-10 14:33] LABS: PLATELET COUNT, AUTOMATED 65 10^3/uL (150-450)
[2018-12-10 14:36] LABS: ALBUMIN 3.5 GM/DL (3.2-5.2); BILIRUBIN,TOTAL 0.3 MG/DL (0.2-1.0); CALCIUM LEVEL 9.3 MG/DL (8.8-10.2); CREATININE FOR GFR 1.75 MG/DL (0.55-1.30); GLOMERULAR FILTRATION RATE 31.5 (>45); MAGNESIUM LEVEL 2.2 MG/DL (1.8-2.4); POTASSIUM SERUM 4.8 MEQ/L (3.5-5.1); TOTAL PROTEIN 5.9 GM/DL (6.4-8.2)
== END ==
LOC: M LAB REF 13:00
PROVIDERS: ATTEND Internal Medicine
DX: Z94.81 Bone marrow transplant status (principal)

== ENCOUNTER → 2018-12-14 | Outpatient (CLI) | payer MEDICARE, OTHER ==
--- NOTE | 2018-12-14 12:00 | REP ---
LUMBAR SPINE, SIX VIEWS: HISTORY: Back pain. There is no acute fracture. The L3-4 through L5-S1 intervertebral discs are decreased in height consistent with disc degeneration. Osteophytes are present on L3 through L5. There is narrowing of the right L4-5 and L5-S1 and left L5-S1 facet joints with associated sclerosis. There are 5 mm of grade 1 spondylolisthesis of L5 on S1. IMPRESSION: Degenerative change as described above. Electronically Signed by Jordan Acevedo MD 12/14/2018 12:07 P
--- NOTE | 2018-12-14 12:41 | REP ---
AP LATERAL RIGHT HIP, TWO VIEWS: HISTORY: Hip pain. There is no acute fracture or dislocation. There is minimal narrowing of the joint space. A calcified density is present superior to the greater trochanter. This represents ligamentous or tendon calcification. IMPRESSION: Degenerative change as described above. Electronically Signed by Jordan Acevedo MD 12/14/2018 12:46 P
== END ==
LOC: M LRY 09:25
PROVIDERS: ATTEND Family Medicine
DX: M25.551 Pain in right hip (principal); M54.5 Low back pain

== ENCOUNTER → 2018-12-17 | Outpatient (REF) | payer MEDICARE, OTHER ==
[2018-12-17 11:38] LABS: BASO % 0.1 % (0.0-1.0); EOS # 0.1 10^3/uL (0.0-0.50); EOS % 1.3 % (0.0-3.0); HEMATOCRIT 32.7 % (36.0-47.0); HEMOGLOBIN 10.8 g/dl (12.0-15.5); LYMPH # 1.4 10^3/uL (1.5-4.5); LYMPH % 20.3 % (24.0-44.0); MEAN CORPUSCULAR HEMOGLOBIN 28.3 pg (27.0-33.0); MEAN CORPUSCULAR VOLUME 85.6 fl (80.0-96.0); MONO # 0.7 10^3/uL (0.0-0.8); NEUTROPHILS # 4.6 10^3/uL (1.8-7.7); PLATELET COUNT, AUTOMATED 69 10^3/uL (150-450); RED BLOOD COUNT 3.82 10^6/uL (4.00-5.40); WHITE BLOOD COUNT 6.8 10^3/uL (4.0-10.0)
[2018-12-17 12:17] LABS: ALBUMIN 3.5 GM/DL (3.2-5.2); BILIRUBIN,TOTAL 0.3 MG/DL (0.2-1.0); CALCIUM LEVEL 9.3 MG/DL (8.8-10.2); CREATININE FOR GFR 1.96 MG/DL (0.55-1.30); GLOMERULAR FILTRATION RATE 27.6 (>45); MAGNESIUM LEVEL 2.1 MG/DL (1.8-2.4); TOTAL PROTEIN 6.2 GM/DL (6.4-8.2)
== END ==
LOC: M LAB REF 11:05
PROVIDERS: ATTEND Internal Medicine
DX: Z94.81 Bone marrow transplant status (principal)

== ENCOUNTER 2018-12-22 22:36 | Emergency (ER) | payer MEDICARE, OTHER ==
[~2018-12-22] VITALS: Ht 165.1 cm; Wt 100.0 kg
[2018-12-22] MEDS ORDERED: LANTINJ4 SQ (23:11)
[2018-12-22] MEDS ORDERED: REPA1TAB OR (23:11)
[2018-12-22] MEDS ORDERED: RANI150T OR (23:11)
[2018-12-22] MEDS ORDERED: ACETAMINOPHEN TAB 650MG DOSE (2X325MG) PO ONE (23:30)
[2018-12-23] MEDS: hydrALAZINE INJ 20 MG/ML VIAL IV PRN ×2 (00:09→00:29)
[2018-12-23 00:41] LABS: BASO % 0.2 % (0.0-1.0); EOS % 0.2 % (0.0-3.0); HEMATOCRIT 32.8 % (36.0-47.0); HEMOGLOBIN 10.8 g/dl (12.0-15.5); LYMPH # 1.3 10^3/uL (1.5-4.5); LYMPH % 20.4 % (24.0-44.0); MEAN CORPUSCULAR HEMOGLOBIN 28.6 pg (27.0-33.0); MEAN CORPUSCULAR HGB CONC 32.9 g/dl (32.0-36.5); MEAN CORPUSCULAR VOLUME 86.8 fl (80.0-96.0); MONO # 0.5 10^3/uL (0.0-0.8); MONO % 7.5 % (0.0-5.0); NEUTROPHILS # 4.7 10^3/uL (1.8-7.7); NEUTROPHILS % 71.5 % (36.0-66.0); RED BLOOD COUNT 3.78 10^6/uL (4.00-5.40); WHITE BLOOD COUNT 6.6 10^3/uL (4.0-10.0)
--- NOTE | 2018-12-23 00:41 | REPVR ---
EXAM: CT Head Without Contrast EXAM DATE/TIME: 12/22/2018 11:40 PM CLINICAL HISTORY: 63 years old, female; Pain; Headache; Headache not specified; Additional info: Headache, hypertensive urgency TECHNIQUE: Axial computed tomography images of the head/brain without contrast. All CT scans at this facility use at least one of these dose optimization techniques: automated exposure control; mA and/or kV adjustment per patient size (includes targeted exams where dose is matched to clinical indication); or iterative reconstruction. COMPARISON: CT Head without contrast 07/20/2018 7:11 PM FINDINGS: Brain: Subtle, patchy areas of hypoattenuation in the periventricular and subcortical white matter, nonspecific but suggestive of mild chronic small vessel ischemic disease. No CT evidence of acute intracranial hemorrhage or acute territorial infarction. No significant mass effect or midline shift. Basal cisterns patent. Ventricles: Prominence of the cortical sulci, cisterns and ventricular system, consistent with cerebral and cerebellar volume loss. Bones/joints: No acute osseous abnormality. Sinuses: Grossly unremarkable. Mastoid air cells: Grossly unremarkable. Soft tissues: Grossly unremarkable. IMPRESSION: 1. No CT evidence of acute intracranial pathology. 2. Additional findings, as above. Electronically signed by: Alexis Sanz On 12/23/2018 00:40:43 AM
[2018-12-23 00:42] LABS: ALBUMIN 3.7 GM/DL (3.2-5.2); BILIRUBIN,DIRECT 0.1 MG/DL (0.0-0.2); BILIRUBIN,TOTAL 0.3 MG/DL (0.2-1.0); CALCIUM LEVEL 9.2 MG/DL (8.8-10.2); CK-MB VALUE MASS < 1.0 NG/ML (<3.6); CPK CREATINE PHOSPHOKINASE 25 U/L (26-192); CREATININE FOR GFR 1.99 MG/DL (0.55-1.30); GLOMERULAR FILTRATION RATE 27.1 (>45); POTASSIUM SERUM 5.2 MEQ/L (3.5-5.1); TOTAL PROTEIN 6.7 GM/DL (6.4-8.2); TROPONIN I < 0.02 NG/ML (< 0.10)
[2018-12-23 00:43] LABS: PLATELET COUNT, AUTOMATED 69 10^3/uL (150-450)
[2018-12-23] MEDS ORDERED: amLODIPine 5 MG TAB PO ONE (01:00)
[2018-12-23 01:07] VITALS: BP 162/73
[2018-12-23 01:30] VITALS: BP 147/63
[2018-12-23] MEDS ORDERED: AMLO25TA PO (01:30)
--- NOTE | 2018-12-23 12:13 | REP ---
AP PORTABLE CHEST: 12/22/2018. CLINICAL HISTORY: Dyspnea and cough. COMPARISON: CT angiogram 09/22/2018, chest x-ray 09/12/2018, 08/03/2018. FINDINGS: Indwelling port catheter via the right jugular route, unchanged. Lungs are well inflated. No definite infiltrate, nodule, or mass. Some basilar fibrosis. There is no pleural effusion, lateral pleural thickening, apical scar, or pneumothorax. Heart not enlarged. There is no aortic aneurysm. Minor calcification at the arch. Airway intact. No widening of the mediastinum. No free air under the diaphragm. Some degenerative changes spine and shoulders. IMPRESSION: 1. Lungs well inflated without infiltrate, effusion, atelectasis, or mass. Some minor fibrotic changes noted. 2. Indwelling catheter via the right jugular route, unchanged. No cardiomegaly or edema. 3. Dextroconvex curvature thoracic spine. Electronically Signed by Leonardo Bowser MD 12/23/2018 01:45 P
--- NOTE | 2018-12-23 16:39 | ECGEPIP ---
Stationary ECG Study [facility] - ED Test Date: 2018-12-23 Pat Name: ROLAND ASHFORD Department: Room: - Gender: F Rn Imaging: : 1955 Requested By: PJ Mascorro Order Number: [id number] Reading MD: Anita Vang Measurements Intervals [place] Rate: 63 P: 50 DC: 205 QRS: -12 QRSD: 117 T: 46 QT: 428 QTc: 439 Interpretive Statements SINUS RHYTHM MODERATE INTRAVENTRICULAR CONDUCTION DELAY NSTTW ABNORMALITY SIMILAR 09/22/18 Electronically Signed On 12-23-2018 16:38:58 EST by Anita Vang
== END 2018-12-23 01:45 | disposition home or self-care (01) ==
LOC: M ED 22:36
DX: I16.0 Hypertensive urgency (principal); E87.5 Hyperkalemia; E11.9 Type 2 diabetes mellitus without complications; F41.9 Anxiety disorder, unspecified; F33.9 Major depressive disorder, recurrent, unspecified; R32 Unspecified urinary incontinence; Z94.84 Stem cells transplant status; Z96.89 Presence of other specified functional implants; Z79.899 Other long term (current) drug therapy; Z79.4 Long term (current) use of insulin; Z91.018 Allergy to other foods; Z91.041 Radiographic dye allergy status; Z91.048 Other nonmedicinal substance allergy status; Z88.0 Allergy status to penicillin; Z88.1 Allergy status to other antibiotic agents; Z88.8 Allergy status to other drugs, medicaments and biological substances

== ENCOUNTER → 2018-12-28 | Outpatient (REF) | payer MEDICARE, OTHER ==
[~2018-12-28] MED LIST changes: +AMLO25TA PO; +LANTINJ4 SQ; +RANI150T OR; +REPA1TAB OR
[2018-12-28 13:29] LABS: BASO % 0.2 % (0.0-1.0); EOS # 0.1 10^3/uL (0.0-0.50); EOS % 0.9 % (0.0-3.0); HEMATOCRIT 32.3 % (36.0-47.0); HEMOGLOBIN 10.4 g/dl (12.0-15.5); LYMPH # 1.3 10^3/uL (1.5-4.5); LYMPH % 23.7 % (24.0-44.0); MEAN CORPUSCULAR HEMOGLOBIN 28.5 pg (27.0-33.0); MEAN CORPUSCULAR HGB CONC 32.2 g/dl (32.0-36.5); MEAN CORPUSCULAR VOLUME 88.5 fl (80.0-96.0); MONO # 0.6 10^3/uL (0.0-0.8); MONO % 10.8 % (0.0-5.0); NEUTROPHILS # 3.6 10^3/uL (1.8-7.7); NEUTROPHILS % 64.2 % (36.0-66.0); RED BLOOD COUNT 3.65 10^6/uL (4.00-5.40); WHITE BLOOD COUNT 5.7 10^3/uL (4.0-10.0)
[2018-12-28 13:32] LABS: PLATELET COUNT, AUTOMATED 68 10^3/uL (150-450)
[2018-12-28 13:51] LABS: ALBUMIN 3.5 GM/DL (3.2-5.2); BILIRUBIN,TOTAL 0.3 MG/DL (0.2-1.0); CALCIUM LEVEL 8.9 MG/DL (8.8-10.2); CREATININE FOR GFR 1.67 MG/DL (0.55-1.30); GLOMERULAR FILTRATION RATE 33.2 (>45); MAGNESIUM LEVEL 2.4 MG/DL (1.8-2.4); POTASSIUM SERUM 5.1 MEQ/L (3.5-5.1); TOTAL PROTEIN 6.1 GM/DL (6.4-8.2)
== END ==
LOC: M LAB REF 12:40
PROVIDERS: ATTEND Internal Medicine
DX: Z94.81 Bone marrow transplant status (principal)

== ENCOUNTER → 2018-12-31 | Outpatient (REF) | payer MEDICARE, OTHER ==
[2018-12-31 13:35] LABS: BASO % 0.2 % (0.0-1.0); EOS % 0.4 % (0.0-3.0); HEMATOCRIT 33.1 % (36.0-47.0); HEMOGLOBIN 10.3 g/dl (12.0-15.5); LYMPH % 17.7 % (24.0-44.0); MEAN CORPUSCULAR HEMOGLOBIN 28.5 pg (27.0-33.0); MEAN CORPUSCULAR HGB CONC 31.1 g/dl (32.0-36.5); MEAN CORPUSCULAR VOLUME 91.4 fl (80.0-96.0); MONO # 0.2 10^3/uL (0.0-0.8); MONO % 3.3 % (0.0-5.0); NEUTROPHILS # 4.5 10^3/uL (1.8-7.7); RED BLOOD COUNT 3.62 10^6/uL (4.00-5.40); WHITE BLOOD COUNT 5.7 10^3/uL (4.0-10.0)
[2018-12-31 13:37] LABS: PLATELET COUNT, AUTOMATED 61 10^3/uL (150-450)
[2018-12-31 13:51] LABS: ALBUMIN 3.4 GM/DL (3.2-5.2); BILIRUBIN,TOTAL 0.2 MG/DL (0.2-1.0); CALCIUM LEVEL 9.1 MG/DL (8.8-10.2); CREATININE FOR GFR 1.88 MG/DL (0.55-1.30); MAGNESIUM LEVEL 2.2 MG/DL (1.8-2.4); TOTAL PROTEIN 5.9 GM/DL (6.4-8.2)
== END ==
LOC: M SHH 12:43
PROVIDERS: ATTEND Internal Medicine
DX: Z94.81 Bone marrow transplant status (principal)

== ENCOUNTER → 2019-01-03 | Outpatient (REF) | payer MEDICARE, OTHER ==
[2019-01-03 11:41] LABS: CALCIUM LEVEL 9.4 MG/DL (8.8-10.2); CREATININE FOR GFR 1.68 MG/DL (0.55-1.30); POTASSIUM SERUM 4.6 MEQ/L (3.5-5.1)
== END ==
LOC: M SFHCLERA 08:21
PROVIDERS: ATTEND Family Medicine
DX: I10 Essential (primary) hypertension (principal)

== ENCOUNTER → 2019-01-24 | Outpatient (REF) | payer MEDICARE, OTHER ==
[~2019-01-24] MED LIST changes: -CYCL5TA PO; +CYCL5TAB5 PO; +FENT12DI12 TOP; -FENT12PA TOP; -VALS1TAB47 PO; +VALS1TAB67 PO
[2019-01-24 12:52] LABS: BASO % 0.2 % (0.0-1.0); EOS # 0.1 10^3/uL (0.0-0.50); EOS % 1.7 % (0.0-3.0); HEMATOCRIT 33.7 % (36.0-47.0); LYMPH # 1.8 10^3/uL (1.5-4.5); LYMPH % 27.6 % (24.0-44.0); MEAN CORPUSCULAR HEMOGLOBIN 28.7 pg (27.0-33.0); MEAN CORPUSCULAR HGB CONC 32.6 g/dl (32.0-36.5); MONO # 0.7 10^3/uL (0.0-0.8); MONO % 10.6 % (0.0-5.0); NEUTROPHILS # 3.9 10^3/uL (1.8-7.7); NEUTROPHILS % 59.1 % (36.0-66.0); PLATELET COUNT, AUTOMATED 125 10^3/uL (150-450); RED BLOOD COUNT 3.83 10^6/uL (4.00-5.40); WHITE BLOOD COUNT 6.6 10^3/uL (4.0-10.0)
[2019-01-24 13:34] LABS: ALBUMIN 3.4 GM/DL (3.2-5.2); BILIRUBIN,TOTAL 0.3 MG/DL (0.2-1.0); CALCIUM LEVEL 9.2 MG/DL (8.8-10.2); CREATININE FOR GFR 1.34 MG/DL (0.55-1.30); GLOMERULAR FILTRATION RATE 42.8 (>45); POTASSIUM SERUM 3.6 MEQ/L (3.5-5.1)
== END ==
LOC: M LAB REF 12:09
PROVIDERS: ATTEND Internal Medicine
DX: Z94.81 Bone marrow transplant status (principal)
CPT/HCPCS: 80053; 80197; 83615; 83735; 85025; G0463

== ENCOUNTER → 2019-01-26 | Outpatient (CLI) | payer MEDICARE, OTHER ==
[~2019-01-26] MED LIST changes: +ACET-861 PO; +BYST10TA2; +CART240C3; +PERC5TAB12 PO
--- NOTE | 2019-01-26 10:51 | REP ---
CHEST, TWO VIEWS: Two views of the chest are performed and compared to prior studies most recent of which is 12/22/2018. There is no evidence of acute infiltrate. Lungs are clear. Heart is normal in size. There is mild calcification of the thoracic aorta. The mediastinal silhouette is unchanged. There is a right central venous catheter with the tip at the junction of the superior vena cava and right atrium. There are mild degenerative changes of the spine. IMPRESSION: No acute infiltrate. Electronically Signed by Miguel A Ronquillo MD 01/26/2019 06:56 P
== END ==
LOC: M LRY 09:58
PROVIDERS: ATTEND Physician Assistant
DX: R68.83 Chills (without fever) (principal); R05 Cough; Z95.9 Presence of cardiac and vascular implant and graft, unspecified
CPT/HCPCS: 71046; 87804; G0463

== ENCOUNTER → 2019-01-29 | Outpatient (REF) | payer MEDICARE, OTHER ==
[~2019-01-29] MED LIST changes: -BYST10TA2; +CEFU50TA PO; +CVS1CHW13 PO; +DILT1TAB PO; +ISOS60TA2 PO; +MAGN400C2 PO; +OXYB5TAB10 PO; -RANI150T OR; +RANI150T PO; -REPA1TAB OR; +SB S8.6T PO; +TACR0.5C3 PO; +VENTAER INH; +VIRT1SOL13 PO; +YUVA10TA3 PV
[2019-01-29 14:51] LABS: BASO % 0.3 % (0.0-1.0); EOS % 0.4 % (0.0-3.0); HEMATOCRIT 34.5 % (36.0-47.0); HEMOGLOBIN 11.1 g/dl (12.0-15.5); LYMPH # 1.4 10^3/uL (1.5-4.5); LYMPH % 18.1 % (24.0-44.0); MEAN CORPUSCULAR HEMOGLOBIN 28.8 pg (27.0-33.0); MEAN CORPUSCULAR HGB CONC 32.2 g/dl (32.0-36.5); MEAN CORPUSCULAR VOLUME 89.6 fl (80.0-96.0); MONO # 0.3 10^3/uL (0.0-0.8); MONO % 4.2 % (0.0-5.0); NEUTROPHILS # 5.8 10^3/uL (1.8-7.7); NEUTROPHILS % 76.2 % (36.0-66.0); PLATELET COUNT, AUTOMATED 114 10^3/uL (150-450); RED BLOOD COUNT 3.85 10^6/uL (4.00-5.40); WHITE BLOOD COUNT 7.6 10^3/uL (4.0-10.0)
[2019-01-29 15:12] LABS: ALBUMIN 3.4 GM/DL (3.2-5.2); BILIRUBIN,TOTAL 0.4 MG/DL (0.2-1.0); CALCIUM LEVEL 9.3 MG/DL (8.8-10.2); CREATININE FOR GFR 1.37 MG/DL (0.55-1.30); GLOMERULAR FILTRATION RATE 41.7 (>45); MAGNESIUM LEVEL 1.7 MG/DL (1.8-2.4); POTASSIUM SERUM 3.7 MEQ/L (3.5-5.1)
== END ==
LOC: M LAB REF 14:11
PROVIDERS: ATTEND Internal Medicine
DX: Z94.81 Bone marrow transplant status (principal)

== ENCOUNTER → 2019-02-04 | Outpatient (REF) | payer MEDICARE, OTHER ==
[~2019-02-04] MED LIST changes: -ACET-861 PO; -CART240C3; -CEFU50TA PO; -CVS1CHW13 PO; +CYCL5TA PO; -CYCL5TAB5 PO; -DILT1TAB PO; -FENT12DI12 TOP; +FENT12PA TOP; -ISOS60TA2 PO; -MAGN400C2 PO; -OXYB5TAB10 PO; -PERC5TAB12 PO; +RANI150T OR; -RANI150T PO; +REPA1TAB OR; -SB S8.6T PO; -TACR0.5C3 PO; +VALS1TAB47 PO; -VALS1TAB67 PO; -VENTAER INH; -VIRT1SOL13 PO; -YUVA10TA3 PV
[2019-02-04 11:50] LABS: BASO % 0.3 % (0.0-1.0); EOS # 0.1 10^3/uL (0.0-0.50); EOS % 1.4 % (0.0-3.0); HEMATOCRIT 32.1 % (36.0-47.0); HEMOGLOBIN 10.4 g/dl (12.0-15.5); LYMPH # 1.5 10^3/uL (1.5-4.5); LYMPH % 25.8 % (24.0-44.0); MEAN CORPUSCULAR HEMOGLOBIN 28.7 pg (27.0-33.0); MEAN CORPUSCULAR HGB CONC 32.4 g/dl (32.0-36.5); MEAN CORPUSCULAR VOLUME 88.7 fl (80.0-96.0); MONO # 0.7 10^3/uL (0.0-0.8); MONO % 11.5 % (0.0-5.0); NEUTROPHILS # 3.6 10^3/uL (1.8-7.7); NEUTROPHILS % 60.8 % (36.0-66.0); PLATELET COUNT, AUTOMATED 110 10^3/uL (150-450); RED BLOOD COUNT 3.62 10^6/uL (4.00-5.40); WHITE BLOOD COUNT 5.9 10^3/uL (4.0-10.0)
[2019-02-04 12:24] LABS: ALBUMIN 3.2 GM/DL (3.2-5.2); BILIRUBIN,TOTAL 0.4 MG/DL (0.2-1.0); CALCIUM LEVEL 8.9 MG/DL (8.8-10.2); CREATININE FOR GFR 1.26 MG/DL (0.55-1.30); MAGNESIUM LEVEL 1.4 MG/DL (1.8-2.4); POTASSIUM SERUM 3.5 MEQ/L (3.5-5.1); TOTAL PROTEIN 5.7 GM/DL (6.4-8.2)
== END ==
LOC: M LAB REF 11:28
PROVIDERS: ATTEND Internal Medicine
DX: Z94.81 Bone marrow transplant status (principal)

== ENCOUNTER → 2019-02-11 | Outpatient (REF) | payer MEDICARE, OTHER ==
[~2019-02-11] MED LIST changes: +ACET-861 PO; +BYST10TA2; +CART240C3; -CYCL5TA PO; +CYCL5TAB5 PO; +FENT12DI12 TOP; -FENT12PA TOP; +PERC5TAB12 PO; -VALS1TAB47 PO; +VALS1TAB67 PO
[2019-02-11 11:58] LABS: BASO % 0.5 % (0.0-1.0); EOS # 0.1 10^3/uL (0.0-0.50); HEMATOCRIT 32.3 % (36.0-47.0); HEMOGLOBIN 10.4 g/dl (12.0-15.5); LYMPH # 1.6 10^3/uL (1.5-4.5); LYMPH % 26.9 % (24.0-44.0); MEAN CORPUSCULAR HEMOGLOBIN 28.7 pg (27.0-33.0); MEAN CORPUSCULAR HGB CONC 32.2 g/dl (32.0-36.5); MONO # 0.7 10^3/uL (0.0-0.8); MONO % 11.8 % (0.0-5.0); NEUTROPHILS # 3.6 10^3/uL (1.8-7.7); NEUTROPHILS % 58.3 % (36.0-66.0); PLATELET COUNT, AUTOMATED 105 10^3/uL (150-450); RED BLOOD COUNT 3.63 10^6/uL (4.00-5.40); WHITE BLOOD COUNT 6.1 10^3/uL (4.0-10.0)
[2019-02-11 12:56] LABS: ALBUMIN 3.4 GM/DL (3.2-5.2); BILIRUBIN,TOTAL 0.4 MG/DL (0.2-1.0); CALCIUM LEVEL 9.2 MG/DL (8.8-10.2); CREATININE FOR GFR 1.37 MG/DL (0.55-1.30); GLOMERULAR FILTRATION RATE 41.7 (>45); MAGNESIUM LEVEL 1.9 MG/DL (1.8-2.4); POTASSIUM SERUM 3.8 MEQ/L (3.5-5.1); TOTAL PROTEIN 5.9 GM/DL (6.4-8.2)
== END ==
LOC: M LAB REF 11:29
PROVIDERS: ATTEND Internal Medicine
DX: Z94.81 Bone marrow transplant status (principal)

== ENCOUNTER 2019-02-16 06:52 | Emergency (ER) | payer MEDICARE, OTHER ==
[~2019-02-16] VITALS: Ht 165.1 cm; Wt 101.8 kg
[~2019-02-16 06:52] MED LIST changes: -ACET-861 PO; -BYST10TA2; -CART240C3; -PERC5TAB12 PO
[2019-02-16] MEDS ORDERED: BYST10TA2 (07:09)
[2019-02-16] MEDS ORDERED: ACET-861 PO (07:09)
[2019-02-16] MEDS ORDERED: CART240C3 (07:09)
[2019-02-16] MEDS ORDERED: PERCOCET 5MG/325MG TAB PO ONE (07:45)
--- NOTE | 2019-02-16 08:15 | REP ---
Right ankle: Four views. Tree: Multiple tender areas after a fall. Findings: Four views right ankle demonstrate prominent plantar calcaneal spurring. There is vascular calcification. Ankle mortise is intact. No acute fracture seen. Impression: No traumatic abnormality noted. Plantar heel spur. Vascular calcification. Electronically Signed by Karl Mercer MD 02/16/2019 08:07 A
[2019-02-16] MEDS ORDERED: PERC5TAB12 PO (08:39)
--- NOTE | 2019-02-16 08:41 | REP ---
Right foot series: Four views. History: Multiple tender areas after a fall. Findings: Four views of the right foot demonstrate overall normal mineralization. There is a mild hallux valgus deformity. Mild osteoarthritic spurring is seen at the first MTP joint. No fracture or subluxation is appreciated. Plantar calcaneal spurring is noted. Vascular calcifications noted. Impression: No fracture noted. Osteoarthritic changes and vascular calcification. Heel spurring. Electronically Signed by Karl Mercer MD 02/16/2019 08:32 A
[2019-02-16 08:54] VITALS: BP 151/74
== END 2019-02-16 09:07 | disposition home or self-care (01) ==
LOC: M ED 06:52
DX: S90.121A Contusion of right lesser toe(s) without damage to nail, initial encounter (principal); W19.XXXA Unspecified fall, initial encounter; I10 Essential (primary) hypertension; Y92.099 Unspecified place in other non-institutional residence as the place of occurrence of the external cause; Y93.01 Activity, walking, marching and hiking; Y99.9 Unspecified external cause status; Z86.73 Personal history of transient ischemic attack (TIA), and cerebral infarction without residual deficits; E03.9 Hypothyroidism, unspecified; D69.6 Thrombocytopenia, unspecified; D75.81 Myelofibrosis; R60.0 Localized edema; R23.3 Spontaneous ecchymoses; M77.31 Calcaneal spur, right foot; M19.071 Primary osteoarthritis, right ankle and foot; Z79.4 Long term (current) use of insulin; Z79.899 Other long term (current) drug therapy; Z91.041 Radiographic dye allergy status; Z91.018 Allergy to other foods; Z91.89 Other specified personal risk factors, not elsewhere classified; Z88.0 Allergy status to penicillin; Z88.8 Allergy status to other drugs, medicaments and biological substances

== ENCOUNTER → 2019-02-25 | Outpatient (REF) | payer MEDICARE, OTHER ==
[~2019-02-25] MED LIST changes: +ACET-861 PO; +BYST10TA2; +CART240C3; +PERC5TAB12 PO
[2019-02-25 12:36] LABS: BASO % 0.3 % (0.0-1.0); EOS # 0.1 10^3/uL (0.0-0.50); EOS % 1.3 % (0.0-3.0); HEMATOCRIT 32.2 % (36.0-47.0); HEMOGLOBIN 10.3 g/dl (12.0-15.5); LYMPH # 1.8 10^3/uL (1.5-4.5); LYMPH % 24.9 % (24.0-44.0); MEAN CORPUSCULAR HEMOGLOBIN 28.5 pg (27.0-33.0); MONO # 0.6 10^3/uL (0.0-0.8); MONO % 8.7 % (0.0-5.0); NEUTROPHILS # 4.6 10^3/uL (1.8-7.7); NEUTROPHILS % 64.2 % (36.0-66.0); PLATELET COUNT, AUTOMATED 140 10^3/uL (150-450); RED BLOOD COUNT 3.62 10^6/uL (4.00-5.40); WHITE BLOOD COUNT 7.1 10^3/uL (4.0-10.0)
[2019-02-25 14:25] LABS: ALBUMIN 3.2 GM/DL (3.2-5.2); BILIRUBIN,TOTAL 0.3 MG/DL (0.2-1.0); CALCIUM LEVEL 8.9 MG/DL (8.8-10.2); CREATININE FOR GFR 1.51 MG/DL (0.55-1.30); GLOMERULAR FILTRATION RATE 37.3 (>45); MAGNESIUM LEVEL 1.8 MG/DL (1.8-2.4)
== END ==
LOC: M LAB REF 12:17
PROVIDERS: ATTEND Internal Medicine
DX: Z94.81 Bone marrow transplant status (principal)

== ENCOUNTER → 2019-03-04 | Outpatient (REF) | payer MEDICARE, OTHER ==
[2019-03-04 11:58] LABS: BASO % 0.3 % (0.0-1.0); EOS # 0.1 10^3/uL (0.0-0.50); EOS % 1.3 % (0.0-3.0); HEMATOCRIT 32.1 % (36.0-47.0); HEMOGLOBIN 10.4 g/dl (12.0-15.5); LYMPH # 1.4 10^3/uL (1.5-4.5); LYMPH % 17.4 % (24.0-44.0); MEAN CORPUSCULAR HGB CONC 32.4 g/dl (32.0-36.5); MEAN CORPUSCULAR VOLUME 89.4 fl (80.0-96.0); MONO # 0.7 10^3/uL (0.0-0.8); NEUTROPHILS # 5.7 10^3/uL (1.8-7.7); NEUTROPHILS % 71.7 % (36.0-66.0); PLATELET COUNT, AUTOMATED 137 10^3/uL (150-450); RED BLOOD COUNT 3.59 10^6/uL (4.00-5.40)
[2019-03-04 12:27] LABS: ALBUMIN 3.1 GM/DL (3.2-5.2); BILIRUBIN,TOTAL 0.3 MG/DL (0.2-1.0); CREATININE FOR GFR 1.29 MG/DL (0.55-1.30); GLOMERULAR FILTRATION RATE 44.7 (>45); MAGNESIUM LEVEL 2.1 MG/DL (1.8-2.4); POTASSIUM SERUM 3.7 MEQ/L (3.5-5.1)
== END ==
LOC: M LAB REF 11:18
PROVIDERS: ATTEND Internal Medicine
DX: Z94.81 Bone marrow transplant status (principal)

== ENCOUNTER → 2019-03-05 | Outpatient (CLI) | payer MEDICARE, OTHER ==
[~2019-03-05] MED LIST changes: -BYST10TA2; +CEFU50TA PO; +CVS1CHW13 PO; +DILT1TAB PO; +ISOS60TA2 PO; +MAGN400C2 PO; +OXYB5TAB10 PO; -RANI150T OR; +RANI150T PO; -REPA1TAB OR; +SB S8.6T PO; +TACR0.5C3 PO; +VENTAER INH; +VIRT1SOL13 PO; +YUVA10TA3 PV
--- NOTE | 2019-03-05 12:55 | REP ---
Left lower extremity Duplex Doppler venous ultrasound: Real time compression and duplex Doppler interrogation of the left lower extremity deep venous system is performed. The left common femoral, superficial femoral and popliteal veins are fully compressible with transducer pressure and demonstrate normal spontaneous and phasic flow, without evidence of deep venous thrombosis. Impression: No evidence of deep venous thrombosis of the left lower extremity femoral popliteal venous system. Electronically Signed by Miguel A Ronquillo MD 03/05/2019 12:46 P
== END ==
LOC: M RAD 11:13
PROVIDERS: ATTEND Family Medicine
DX: M79.662 Pain in left lower leg (principal)
CPT/HCPCS: 93971; G0463

== ENCOUNTER → 2019-03-11 | Outpatient (REF) | payer MEDICARE, OTHER ==
[~2019-03-11] MED LIST changes: +BYST10TA2; -CEFU50TA PO; -CVS1CHW13 PO; -DILT1TAB PO; -ISOS60TA2 PO; -MAGN400C2 PO; -OXYB5TAB10 PO; +RANI150T OR; -RANI150T PO; +REPA1TAB OR; -SB S8.6T PO; -TACR0.5C3 PO; -VENTAER INH; -VIRT1SOL13 PO; -YUVA10TA3 PV
[2019-03-11 13:47] LABS: BASO % 0.2 % (0.0-1.0); EOS # 0.2 10^3/uL (0.0-0.50); EOS % 3.3 % (0.0-3.0); HEMATOCRIT 31.9 % (36.0-47.0); HEMOGLOBIN 10.3 g/dl (12.0-15.5); LYMPH # 1.4 10^3/uL (1.5-4.5); LYMPH % 31.3 % (24.0-44.0); MEAN CORPUSCULAR HEMOGLOBIN 28.9 pg (27.0-33.0); MEAN CORPUSCULAR HGB CONC 32.3 g/dl (32.0-36.5); MEAN CORPUSCULAR VOLUME 89.4 fl (80.0-96.0); MONO # 0.6 10^3/uL (0.0-0.8); MONO % 12.7 % (0.0-5.0); NEUTROPHILS # 2.4 10^3/uL (1.8-7.7); NEUTROPHILS % 52.3 % (36.0-66.0); PLATELET COUNT, AUTOMATED 128 10^3/uL (150-450); RED BLOOD COUNT 3.57 10^6/uL (4.00-5.40); WHITE BLOOD COUNT 4.6 10^3/uL (4.0-10.0)
[2019-03-11 14:10] LABS: ALBUMIN 3.2 GM/DL (3.2-5.2); BILIRUBIN,TOTAL 0.3 MG/DL (0.2-1.0); CALCIUM LEVEL 9.4 MG/DL (8.8-10.2); CREATININE FOR GFR 1.26 MG/DL (0.55-1.30); MAGNESIUM LEVEL 1.8 MG/DL (1.8-2.4); POTASSIUM SERUM 3.7 MEQ/L (3.5-5.1); TOTAL PROTEIN 5.8 GM/DL (6.4-8.2)
== END ==
LOC: M LAB REF 12:55
PROVIDERS: ATTEND Internal Medicine
DX: Z94.81 Bone marrow transplant status (principal)

== ENCOUNTER 2019-03-16 14:47 | Inpatient (IN) | payer MEDICARE, OTHER ==
[~2019-03-16] VITALS: Ht 165.1 cm; Wt 104.0 kg
[~2019-03-16 14:47] MED LIST changes: -BYST10TA2; -RANI150T OR; +RANI150T PO; -REPA1TAB OR
[2019-03-16] MEDS ORDERED: TACR0.5C3 PO (15:10)
[2019-03-16] MEDS ORDERED: VIRT1SOL13 PO (15:12)
[2019-03-16] MEDS ORDERED: methylPREDNISolone INJ 125 MG/2 ML VIAL (J2930) IV ONE (15:15)
[2019-03-16] MEDS ORDERED: IPRATROPIUM 0.5MG/ALBUTEROL 2.5MG INH SOL UD 3ML (DUONEB)(J7620) NEB ONE (15:15)
[2019-03-16] MEDS ORDERED: TUSSICAPS ER 10/8MG CAPSULE PO ONE (15:30)
[2019-03-16 16:14] LABS: VENOUS BASE EXCESS -1.2 (-2.0-2.0); VENOUS HCO3 22.9 MEQ/L (23.0-27.0); VENOUS O2 SATURATION 98.4 % (60.0-80.0); VENOUS PARTIAL PRESSURE CO2 36.4 mmHg (38.0-50.0); VENOUS PH 7.417 UNITS (7.330-7.430); VENOUS STANDARD HCO3 23.5 MEQ/L
[2019-03-16 16:15] LABS: BASO % 0.2 % (0.0-1.0); EOS # 0.1 10^3/uL (0.0-0.50); EOS % 2.2 % (0.0-3.0); HEMATOCRIT 32.7 % (36.0-47.0); HEMOGLOBIN 10.6 g/dl (12.0-15.5); LYMPH # 1.5 10^3/uL (1.5-4.5); LYMPH % 23.1 % (24.0-44.0); MEAN CORPUSCULAR HGB CONC 32.4 g/dl (32.0-36.5); MEAN CORPUSCULAR VOLUME 89.6 fl (80.0-96.0); MONO # 0.5 10^3/uL (0.0-0.8); MONO % 7.9 % (0.0-5.0); NEUTROPHILS # 4.2 10^3/uL (1.8-7.7); NEUTROPHILS % 66.1 % (36.0-66.0); PLATELET COUNT, AUTOMATED 155 10^3/uL (150-450); RED BLOOD COUNT 3.65 10^6/uL (4.00-5.40); WHITE BLOOD COUNT 6.3 10^3/uL (4.0-10.0)
[2019-03-16 16:40] LABS: BLOOD UREA NITROGEN 23 MG/DL (7-18); CALCIUM LEVEL 9.1 MG/DL (8.8-10.2); CARBON DIOXIDE LEVEL 24 MEQ/L (21-32); CHLORIDE LEVEL 105 MEQ/L (98-107); CK-MB VALUE MASS < 1.0 NG/ML (<3.6); CPK CREATINE PHOSPHOKINASE 36 U/L (26-192); CREATININE FOR GFR 1.42 MG/DL (0.55-1.30); GLUCOSE, FASTING 157 MG/DL (70-100); MB/CK RELATIVE INDEX 2.78 (< OR =4); NT-PRO BNP 540 PG/ML (<125); SODIUM LEVEL 139 MEQ/L (136-145); TROPONIN I < 0.02 NG/ML (< 0.10)
--- NOTE | 2019-03-16 17:18 | ECGEPIP ---
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
[2019-03-16] MEDS ORDERED: YUVA10TA3 PV (18:05)
[2019-03-16] MEDS ORDERED: SB S8.6T PO (18:05)
[2019-03-16] MEDS ORDERED: MIRA0.12 PO (18:05)
[2019-03-16] MEDS ORDERED: CEFU50TA PO (18:05)
[2019-03-16] MEDS ORDERED: OXYB5TAB10 PO (18:05)
[2019-03-16] MEDS ORDERED: VENTAER INH (18:05)
[2019-03-16] MEDS ORDERED: BACT800T5 PO (18:05)
[2019-03-16] MEDS ORDERED: FLEC50HA PO (18:05)
[2019-03-16] MEDS ORDERED: DILT1TAB PO (18:05)
[2019-03-16] MEDS ORDERED: ISOS60TA2 PO (18:05)
[2019-03-16] MEDS ORDERED: PROM12.56 PO (18:05)
[2019-03-16] MEDS ORDERED: CVS1CHW13 PO (18:05)
[2019-03-16] MEDS ORDERED: MAGN400C2 PO (18:05)
[2019-03-16] MEDS ORDERED: GLUCAGON FOR INJ 1 MG VIAL (J1610) SC PRN (19:15)
[2019-03-16] MEDS ORDERED: DEXTROSE 50% 50 ML SYRINGE IV PRN (19:15)
[2019-03-16] MEDS ORDERED: GLUCOSE 4 GM CHEW TABLET PO PRN (19:15)
[2019-03-16] MEDS ORDERED: LACTULOSE 20 GM/30 ML SYRUP UD PO PRN (19:15)
[2019-03-16] MEDS ORDERED: PROMETHAZINE 25 MG TAB PO PRN (19:15)
[2019-03-16] MEDS ORDERED: CYCLOBENZAPRINE 10 MG TAB PO PRN (19:15)
[2019-03-16] MEDS ORDERED: ALBUTEROL SULFATE 2.5 MG/0.5 ML INH NEB SOLN NEB PRN (19:30)
--- NOTE | 2019-03-16 19:58 | HPE ---
DATE OF ADMISSION: 03/16/2019 PRIMARY CARE PROVIDER: Dr. Evan Patterson HISTORY OF PRESENT ILLNESS: The patient is a 63-year-old female with a past medical history significant for myelofibrosis, atrial fibrillation, hypertension, lupus, fibromyalgia, obstructive sleep apnea (YOHANA), on continuous positive airway pressure (CPAP), steroid-induced diabetes who presented to [facility] on 03/16/2019 with complaint of acute respiratory distress. Patient stated she had been having some shortness of breath on March 11. Patient went to see primary care provider on March 13, and patient started on antibiotics. Patient continued on antibiotics for 3-4 days without any significant improvement, and therefore patient was brought to [facility] for further evaluation. Patient complained about increased cough. Usually the cough is a dry cough; however, today she had an episode where she coughed up greenish sputum. Patient also noted to have increased bilateral lower extremity swelling that lasted 1 month. Patient has measured her temperature multiple times a day. No fever, but intermittently patient has a feeling of shivering chills. Patient denied any sick contact. According to patient, patient was seen in the program writer's office, and patient was started on a brand new medication, but she could not recall the name of the medication. PAST MEDICAL HISTORY: 1. Myelofibrosis, status post stem cell transplant in [place]. 2. Atrial fibrillation. 3. Hypertension. 4. Lupus. 5. Fibromyalgia. 6. YOHANA, on CPAP. 7. Steroid-induced diabetes. PAST SURGICAL HISTORY: 1. Stem cell transplant. 2. section. 3. Tonsillectomy. 4. Lithotripsy. SOCIAL HISTORY: Denies tobacco abuse. Denies alcohol use. Denies recreational drug use. ALLERGIES: QUINOLONE (respiratory failure). CT CONTRAST AGENT (tongue swelling). MEPERIDINE, PENICILLIN (dizziness). REVIEW OF SYSTEMS: GENERAL: No fever. No chills. HEENT: No vision changes. No auditory changes. CARDIOVASCULAR: No chest pain. No palpitations. RESPIRATORY: Patient complained about acute worsening of shortness of breath approximately 6 days ago. Patient had one episode where she brought up greenish sputum. Dry cough. GASTROINTESTINAL: No nausea. No vomiting. No abdominal pain. No diarrhea. MUSCULOSKELETAL: Since the stem cell transplant, patient has been having weakness of the left upper and lower extremities and numbness of left upper and lower extremities. OBJECTIVE: VITAL SIGNS: Temperature is 98.4, pulse is 78, respiration rate is 22, blood pressure is 157/70, pulse oximetry is 95% in room air. GENERAL: Mild to moderate distress secondary to persistent shortness of breath. Patient is alert and awake. HEENT: Normocephalic, atraumatic. Extraocular motor grossly intact. CARDIOVASCULAR: Positive S1, S2, irregularly irregular. LUNGS: Inspiratory and expiratory wheezes appreciated. Very fine crackles appreciated. ABDOMEN: Soft, nontender. Bowel sounds present. EXTREMITIES: No edema. NEUROLOGIC: Decreased sensation of left upper and lower extremities. Muscle strength 4-5 out of 5 from left upper and lower extremities. Muscle strength 5/5 in the right upper and lower extremities. LABORATORY DATA: WBC 6.3, hemoglobin 10.6, hematocrit 32.7, platelet count is 155. Sodium is 139, potassium 4, chloride 105, carbon dioxide 24, BUN 23, creatinine 1.42, GFR is 40, fasting glucose 157, lactic acid 1.9, calcium 9.1. Total CK 36, troponin I is less than 0.02. BNP is 540. Microbiology: Blood cultures pending. Respiratory panel is positive for parainfluenza infection. IMAGING STUDIES: Chest x-ray: Official result pending. Preliminary result shows there is increased cardiomegaly, pulmonary vascular cephalization. ASSESSMENT AND PLAN: 1. Acute respiratory distress. Could be multifactorial. Patient is positive for parainfluenza infection. Continue conservative medical management. Patient is in immunocompromised state. Followup with sputum cultures. Imaging studies and physical exam demonstrate patient demonstrates clinical signs of overload. Trial of diuretic. Patient can have as-needed nebulizer treatment for symptomatic management. 2. Myelofibrosis status post stem cell transplant in [facility]. Patient follows with a specialist on a regular basis. The patient has been receiving immunosuppressive therapy. 3. Diabetes, on consistent-carbohydrate diet, on insulin sliding scale. 4. Atrial fibrillation. Continue to monitor patient on telemetry. Patient had a recent medication adjustment. Patient cannot recall exactly what agent she was started on. Reviewing the chart, patient is taking Bystolic, Cardizem, and flecainide. According to patient, patient had an echocardiogram performed within the last month. 5. Lupus, on immunosuppressant therapy. 6. Obstructive sleep apnea (YOHANA). Patient can use her CPAP. 7. Hypertension. Continue current blood pressure medication. Will adjust if needed. 8. Deep vein thrombosis (DVT) prophylaxis, on heparin.
[2019-03-16 20:30] VITALS: BP 224/92
[2019-03-16 21:00] VITALS: BP 198/90
[2019-03-16] MEDS ORDERED: HumaLOG INSULIN (NovoLOG) PER UNIT SC SCH (21:00)
[2019-03-16] MEDS ORDERED: PRAMIPEXOLE (MIRAPEX) 0.125 MG TAB PO SCH (21:00)
[2019-03-16] MEDS ORDERED: SERTRALINE HCL 50 MG TAB PO SCH (21:00)
[2019-03-16] MEDS ORDERED: LORazepam 1 MG TAB PO SCH (21:00)
[2019-03-16] MEDS ORDERED: FLUCONAZOLE 100 MG TAB PO SCH (21:00)
[2019-03-16] MEDS ORDERED: LEVEMIR (INSULIN DETEMIR) 1 UNITS/0.01ML SC SCH (21:00)
[2019-03-16] MEDS ORDERED: SENNA 8.6 MG TAB (SENOKOT) PO SCH (21:00)
[2019-03-16] MEDS: HEPARIN SOD (PORCINE) 5000 UNITS/ML VIAL SQ SCH (21:28)
[2019-03-16] MEDS: FUROSEMIDE 40 MG/4 ML VIAL (J1940) IV SCH (21:28)
[2019-03-16] MEDS: BUDESONIDE EC 3 MG CAP (ENTOCORT EC) PO SCH (21:29)
[2019-03-16] MEDS: DOCUSATE SODIUM 100 MG CAP PO SCH (21:29)
[2019-03-16] MEDS: ACYCLOVIR 200 MG CAPSULE PO SCH (21:29)
[2019-03-16] MEDS: TACROLIMUS 0.5 MG CAP PO SCH (21:30)
[2019-03-16] MEDS: GABAPENTIN 300 MG CAP PO SCH (21:30)
[2019-03-16] MEDS: TACROLIMUS 1 MG CAP (J7507) PO SCH (21:30)
[2019-03-16] MEDS: oxyBUTYnin 5 MG TAB PO SCH (21:30)
[2019-03-16 23:59] VITALS: BP 190/102
[2019-03-17 04:00] VITALS: BP 186/100
[2019-03-17 04:30] VITALS: BP 192/86
[2019-03-17] MEDS: HEPARIN SOD (PORCINE) 5000 UNITS/ML VIAL SQ SCH ×2 (06:00→14:34)
[2019-03-17 06:21] LABS: HEMOGLOBIN 10.1 g/dl (12.0-15.5); MEAN CORPUSCULAR HGB CONC 32.6 g/dl (32.0-36.5); MEAN CORPUSCULAR VOLUME 89.1 fl (80.0-96.0); PLATELET COUNT, AUTOMATED 129 10^3/uL (150-450); RED BLOOD COUNT 3.48 10^6/uL (4.00-5.40); WHITE BLOOD COUNT 3.9 10^3/uL (4.0-10.0)
[2019-03-17 06:41] LABS: CALCIUM LEVEL 9.6 MG/DL (8.8-10.2); CREATININE FOR GFR 1.41 MG/DL (0.55-1.30); GLOMERULAR FILTRATION RATE 40.4 (>45); MAGNESIUM LEVEL 1.9 MG/DL (1.8-2.4); POTASSIUM SERUM 3.9 MEQ/L (3.5-5.1)
--- NOTE | 2019-03-17 07:46 | REP ---
CHEST X-RAY: TWO VIEWS. HISTORY: Dyspnea and cough. COMPARISON STUDY: January 26, 2019 FINDINGS: A right-sided Caymfj-U-Hdqz catheter is seen in place. Cardiomegaly is observed. Cardiothoracic ratio today is 54.0%. Pulmonary vasculature is somewhat cephalized. Pleural angles are sharp. There is no evidence of pulmonary edema. There are degenerative changes in the thoracic spine. IMPRESSION: Increased cardiomegaly. Right-sided Ltymuz-M-Rzgk catheter. Pulmonary vascular cephalization. No pulmonary edema or pleural effusion seen. Electronically Signed by Karl Mercer MD 03/17/2019 09:18 A
[2019-03-17 08:00] VITALS: BP 212/108
[2019-03-17] MEDS: TACROLIMUS 1 MG CAP (J7507) PO SCH (08:42)
[2019-03-17] MEDS: GABAPENTIN 300 MG CAP PO SCH (08:42)
[2019-03-17] MEDS: BUDESONIDE EC 3 MG CAP (ENTOCORT EC) PO SCH (08:42)
[2019-03-17] MEDS: oxyBUTYnin 5 MG TAB PO SCH (08:42)
[2019-03-17] MEDS: ACYCLOVIR 200 MG CAPSULE PO SCH (08:42)
[2019-03-17] MEDS: TACROLIMUS 0.5 MG CAP PO SCH (08:42)
[2019-03-17] MEDS: DOCUSATE SODIUM 100 MG CAP PO SCH (08:43)
[2019-03-17] MEDS: FUROSEMIDE 40 MG/4 ML VIAL (J1940) IV SCH (08:43)
[2019-03-17] MEDS: HumaLOG INSULIN (NovoLOG) PER UNIT SC SCH ×2 (08:58→12:35)
[2019-03-17] MEDS: REPAGLINIDE 0.5 MG PO SCH ×2 (08:58→12:36)
[2019-03-17] MEDS ORDERED: PRAMIPEXOLE (MIRAPEX) 0.125 MG TAB PO SCH (09:00)
[2019-03-17] MEDS ORDERED: NEBIVOLOL 5 MG TAB (BYSTOLIC) PO SCH (09:00)
[2019-03-17] MEDS ORDERED: ISOSORBIDE MON. (IMDUR) 60 MG XR TAB PO SCH (09:00)
[2019-03-17] MEDS ORDERED: MULTIVITAMINS/MINERALS THERAP 1 TAB PO SCH (09:00)
[2019-03-17] MEDS: hydrALAZINE INJ 20 MG/ML VIAL IV SCH ×2 (10:00→14:00)
[2019-03-17 10:15] VITALS: BP 156/92
[2019-03-17] MEDS ORDERED: ACETAMINOPHEN TAB 650MG DOSE (2X325MG) PO ONE (11:15)
[2019-03-17 12:00] VITALS: BP 164/98
[2019-03-17 14:00] VITALS: BP 158/98
[2019-03-17] MEDS ORDERED: CEPACOL LOZENGE MT PRN (14:15)
[2019-03-17] MEDS ORDERED: BENZONATATE 100 MG CAP PO SCH (16:00)
--- NOTE | 2019-03-17 20:59 | DSES ---
DATE OF ADMISSION: 03/16/2019 DATE OF TRANSFER: 03/17/2019 ACCEPTING FACILITY: [facility]. DISCHARGE DIAGNOSES: 1. Acute respiratory distress. 2. Parainfluenza infection in immunocompromised patient. 3. Hypertensive urgency. 4. Myelofibrosis, status post stem cell transplant in [place]. 5. Diabetes. 6. Atrial fibrillation. 7. Lupus. 8. Obstructive sleep apnea. 9. Hypertension. HOSPITALIZATION COURSE: The patient is a 63-year-old female who presented to [facility] on 03/16/2019 with complaint of persistent shortness of breath. The patient was seen by the primary care provider in the outpatient setting. The patient's symptoms continued to get worse with oral antibiotic treatment and therefore the patient came to [facility] for further evaluation. Diagnostic workup initiated. The patient was found to have parainfluenza infection. Continued on conservative medical management. The patient was also found to have hypertensive urgency. Blood pressure medications were also being adjusted. On 03/17/2019 [facility] was contacted regarding the patient's current clinical picture. Due to the complexity of the patient's medical history from the stem cell transplant, transfer was arranged. During the hospitalization stay, by mouth and IV blood pressure medications were given to the patient. The patient's blood pressure has shown some improvement. VITAL SIGNS: On the day of discharge, temperature is 99.8, pulse 83, respirations 20, blood pressure 158/98, pulse oximetry is 93% on room air. LABORATORY DATA: On the day of discharge, WBC 3.9, hemoglobin 10.1, hematocrit 31, platelet count is 129. Sodium is 140, potassium 3.9, chloride 105, carbon dioxide 26, BUN 22, creatinine 1.41, GFR is 40.4, fasting glucose 223, calcium 9.6, magnesium 1.9, troponin I is less than 0.02, BNP is 540. Microbiology: Blood cultures from 03/16/2019 showed no growth after 24 hours times one set, the other set of blood culture from 03/16/2019 is pending. Respiratory panel is positive for parainfluenza. Imaging studies: Chest x-ray from 03/16/2019 demonstrated increased cardiomegaly, right sided InfusaPort catheter. Pulmonary vascular encephalization. No pulmonary edema or effusion. HOME MEDICATIONS: - acyclovir 400 mg by mouth twice a day - Ventolin two puff inhalation every 4 hours as needed - budesonide 3 mg by mouth twice a day - Virtussin 10 mg by mouth every 4 hours as needed for cough - cyclobenzaprine 10 mg by mouth three times a day as needed for muscle spasm - diltiazem 300 mg by mouth daily - docusate sodium 200 mg by mouth twice a day - Estradiol 10 mcg three times a week - flecainide 15 mg by mouth twice a day - Diflucan 200 mg by mouth at night - gabapentin 300 mg by mouth three times a day - Lantus 20 units subcutaneously at night - Inulin 2 chew by mouth daily - isosorbide mononitrate 50 mg by mouth daily - Lactulose 15 mL by mouth three times a day as needed for constipation - Ativan 1 mg by mouth at night - magnesium oxide 800 mg by mouth twice a day - multivitamin one tablet by mouth daily - Bystolic 10 mg by mouth daily - oxybutynin 5 mg by mouth three times a day - Mirapex 0.125 mg by mouth in the morning - Mirapex 0.25 mg by mouth at night - prednisone 5 mg by mouth every two days - promethazine 12.5 mg by mouth every 6 hours as needed for nausea and vomiting - ranitidine 150 mg by mouth at night - Repaglinide 0.5 mg by mouth with meals - Senna 17.2 mg by mouth at night - sertraline 50 mg by mouth at night - Bactrim one tablet by mouth three times a week - Prograf 1 mg by mouth twice a day - tacrolimus 0.5 mg by mouth twice a day The patient will be transferred to [facility] [place] by ambulance. Discharge condition is fair. Discharge time was greater than 30 minutes. MTDD
[2019-03-18] MEDS ORDERED: BACTRIM 160MG/800MG DS TAB PO SCH (09:00)
[2019-03-18] MEDS ORDERED: predniSONE 10 MG TAB PO SCH (09:00)
== END 2019-03-17 15:20 | disposition short-term general hospital (02) | DRG 866 ==
LOC: M ED 14:47 → M ED INP 18:58 → M PCU 20:20
PROVIDERS: ADMIT Internal Medicine; ATTEND Internal Medicine
DX: B34.8 Other viral infections of unspecified site (principal); D75.81 Myelofibrosis; Z94.84 Stem cells transplant status; E11.9 Type 2 diabetes mellitus without complications; I48.91 Unspecified atrial fibrillation; I10 Essential (primary) hypertension; J06.9 Acute upper respiratory infection, unspecified; I16.0 Hypertensive urgency; L93.0 Discoid lupus erythematosus; M79.7 Fibromyalgia; R06.03 Acute respiratory distress; G47.33 Obstructive sleep apnea (adult) (pediatric); Z88.0 Allergy status to penicillin; Z88.1 Allergy status to other antibiotic agents; Z88.8 Allergy status to other drugs, medicaments and biological substances; Z91.041 Radiographic dye allergy status; Z79.899 Other long term (current) drug therapy

== ENCOUNTER → 2019-03-25 | Outpatient (REF) | payer MEDICARE, OTHER ==
[~2019-03-25] MED LIST changes: +CEFU50TA PO; +CVS1CHW13 PO; +DILT1TAB PO; +ISOS60TA2 PO; +MAGN400C2 PO; +OXYB5TAB10 PO; +SB S8.6T PO; +TACR0.5C3 PO; +VENTAER INH; +VIRT1SOL13 PO; +YUVA10TA3 PV
[2019-03-25 13:39] LABS: BASO % 0.5 % (0.0-1.0); EOS # 0.1 10^3/uL (0.0-0.50); EOS % 2.2 % (0.0-3.0); HEMATOCRIT 30.6 % (36.0-47.0); HEMOGLOBIN 9.6 g/dl (12.0-15.5); LYMPH # 1.3 10^3/uL (1.5-4.5); LYMPH % 23.2 % (24.0-44.0); MEAN CORPUSCULAR HEMOGLOBIN 28.8 pg (27.0-33.0); MEAN CORPUSCULAR HGB CONC 31.4 g/dl (32.0-36.5); MEAN CORPUSCULAR VOLUME 91.9 fl (80.0-96.0); MONO # 0.7 10^3/uL (0.0-0.8); MONO % 12.9 % (0.0-5.0); NEUTROPHILS # 3.4 10^3/uL (1.8-7.7); NEUTROPHILS % 60.3 % (36.0-66.0); PLATELET COUNT, AUTOMATED 170 10^3/uL (150-450); RED BLOOD COUNT 3.33 10^6/uL (4.00-5.40); WHITE BLOOD COUNT 5.6 10^3/uL (4.0-10.0)
[2019-03-25 18:44] LABS: ALBUMIN 3.1 GM/DL (3.2-5.2); BILIRUBIN,TOTAL 0.2 MG/DL (0.2-1.0); CALCIUM LEVEL 9.1 MG/DL (8.8-10.2); CREATININE FOR GFR 1.35 MG/DL (0.55-1.30); GLOMERULAR FILTRATION RATE 42.3 (>45); MAGNESIUM LEVEL 1.8 MG/DL (1.8-2.4); POTASSIUM SERUM 3.8 MEQ/L (3.5-5.1); TOTAL PROTEIN 5.7 GM/DL (6.4-8.2)
== END ==
LOC: M LAB REF 12:23
PROVIDERS: ATTEND Internal Medicine
DX: Z94.81 Bone marrow transplant status (principal)

== ENCOUNTER → 2019-04-02 | Outpatient (REF) | payer MEDICARE, OTHER ==
[2019-04-02 12:17] LABS: BASO % 0.1 % (0.0-1.0); EOS # 0.2 10^3/uL (0.0-0.50); EOS % 2.2 % (0.0-3.0); HEMATOCRIT 29.9 % (36.0-47.0); HEMOGLOBIN 9.7 g/dl (12.0-15.5); LYMPH # 1.3 10^3/uL (1.5-4.5); LYMPH % 18.3 % (24.0-44.0); MEAN CORPUSCULAR HEMOGLOBIN 29.6 pg (27.0-33.0); MEAN CORPUSCULAR HGB CONC 32.4 g/dl (32.0-36.5); MEAN CORPUSCULAR VOLUME 91.2 fl (80.0-96.0); MONO # 0.6 10^3/uL (0.0-0.8); MONO % 8.6 % (0.0-5.0); NEUTROPHILS # 5.1 10^3/uL (1.8-7.7); NEUTROPHILS % 70.5 % (36.0-66.0); PLATELET COUNT, AUTOMATED 151 10^3/uL (150-450); RED BLOOD COUNT 3.28 10^6/uL (4.00-5.40); WHITE BLOOD COUNT 7.2 10^3/uL (4.0-10.0)
[2019-04-02 13:32] LABS: ALBUMIN 3.1 GM/DL (3.2-5.2); BILIRUBIN,TOTAL 0.3 MG/DL (0.2-1.0); CALCIUM LEVEL 9.1 MG/DL (8.8-10.2); CREATININE FOR GFR 1.38 MG/DL (0.55-1.30); GLOMERULAR FILTRATION RATE 41.2 (>45); MAGNESIUM LEVEL 1.9 MG/DL (1.8-2.4); POTASSIUM SERUM 4.1 MEQ/L (3.5-5.1); TOTAL PROTEIN 5.9 GM/DL (6.4-8.2)
== END ==
LOC: M LAB REF 11:16
PROVIDERS: ATTEND Internal Medicine
DX: Z94.81 Bone marrow transplant status (principal)

== ENCOUNTER → 2019-04-08 | Outpatient (REF) | payer MEDICARE, OTHER ==
[~2019-04-08] MED LIST changes: +RA S8.6T3 PO; -SB S8.6T PO; -TRAZ-160 PO; +TRAZ-252 PO
[2019-04-08 13:39] LABS: BASO % 0.2 % (0.0-1.0); EOS # 0.2 10^3/uL (0.0-0.50); EOS % 2.6 % (0.0-3.0); HEMOGLOBIN 9.4 g/dl (12.0-15.5); LYMPH # 1.3 10^3/uL (1.5-4.5); LYMPH % 20.6 % (24.0-44.0); MEAN CORPUSCULAR HEMOGLOBIN 27.9 pg (27.0-33.0); MEAN CORPUSCULAR HGB CONC 31.3 g/dl (32.0-36.5); MONO # 0.6 10^3/uL (0.0-0.8); MONO % 9.8 % (0.0-5.0); NEUTROPHILS # 4.3 10^3/uL (1.8-7.7); NEUTROPHILS % 66.3 % (36.0-66.0); PLATELET COUNT, AUTOMATED 160 10^3/uL (150-450); RED BLOOD COUNT 3.37 10^6/uL (4.00-5.40); WHITE BLOOD COUNT 6.5 10^3/uL (4.0-10.0)
[2019-04-08 13:48] LABS: ALBUMIN 3.3 GM/DL (3.2-5.2); BILIRUBIN,TOTAL 0.3 MG/DL (0.2-1.0); CALCIUM LEVEL 9.8 MG/DL (8.8-10.2); CREATININE FOR GFR 1.36 MG/DL (0.55-1.30); GLOMERULAR FILTRATION RATE 41.9 (>45); MAGNESIUM LEVEL 1.7 MG/DL (1.8-2.4); POTASSIUM SERUM 3.8 MEQ/L (3.5-5.1)
== END ==
LOC: M LAB REF 12:09
PROVIDERS: ATTEND Internal Medicine
DX: Z94.81 Bone marrow transplant status (principal)

== ENCOUNTER → 2019-04-15 | Outpatient (REF) | payer MEDICARE, OTHER ==
[2019-04-15 11:36] LABS: BASO % 0.3 % (0.0-1.0); EOS # 0.1 10^3/uL (0.0-0.50); HEMATOCRIT 30.7 % (36.0-47.0); HEMOGLOBIN 9.8 g/dl (12.0-15.5); LYMPH # 1.4 10^3/uL (1.5-4.5); MEAN CORPUSCULAR HEMOGLOBIN 29.3 pg (27.0-33.0); MEAN CORPUSCULAR HGB CONC 31.9 g/dl (32.0-36.5); MEAN CORPUSCULAR VOLUME 91.6 fl (80.0-96.0); MONO # 0.6 10^3/uL (0.0-0.8); MONO % 9.8 % (0.0-5.0); NEUTROPHILS % 65.6 % (36.0-66.0); PLATELET COUNT, AUTOMATED 160 10^3/uL (150-450); RED BLOOD COUNT 3.35 10^6/uL (4.00-5.40); WHITE BLOOD COUNT 6.1 10^3/uL (4.0-10.0)
[2019-04-15 12:31] LABS: ALBUMIN 2.9 GM/DL (3.2-5.2); BILIRUBIN,TOTAL 0.2 MG/DL (0.2-1.0); CALCIUM LEVEL 8.9 MG/DL (8.8-10.2); CREATININE FOR GFR 1.39 MG/DL (0.55-1.30); GLOMERULAR FILTRATION RATE 40.9 (>45); MAGNESIUM LEVEL 2.2 MG/DL (1.8-2.4); POTASSIUM SERUM 4.2 MEQ/L (3.5-5.1); TOTAL PROTEIN 5.8 GM/DL (6.4-8.2)
== END ==
LOC: M LAB REF 10:55
PROVIDERS: ATTEND Internal Medicine
DX: Z94.81 Bone marrow transplant status (principal)

== ENCOUNTER → 2019-04-22 | Outpatient (REF) | payer MEDICARE, OTHER ==
[2019-04-22 13:45] LABS: BASO % 0.4 % (0.0-1.0); EOS # 0.1 10^3/uL (0.0-0.50); HEMATOCRIT 30.3 % (36.0-47.0); HEMOGLOBIN 9.5 g/dl (12.0-15.5); LYMPH # 1.3 10^3/uL (1.5-4.5); LYMPH % 22.8 % (24.0-44.0); MEAN CORPUSCULAR HEMOGLOBIN 27.9 pg (27.0-33.0); MEAN CORPUSCULAR HGB CONC 31.4 g/dl (32.0-36.5); MEAN CORPUSCULAR VOLUME 88.9 fl (80.0-96.0); MONO # 0.5 10^3/uL (0.0-0.8); MONO % 9.5 % (0.0-5.0); NEUTROPHILS # 3.6 10^3/uL (1.8-7.7); NEUTROPHILS % 64.9 % (36.0-66.0); PLATELET COUNT, AUTOMATED 157 10^3/uL (150-450); RED BLOOD COUNT 3.41 10^6/uL (4.00-5.40); WHITE BLOOD COUNT 5.6 10^3/uL (4.0-10.0)
[2019-04-22 14:16] LABS: BILIRUBIN,TOTAL 0.1 MG/DL (0.2-1.0); CALCIUM LEVEL 9.5 MG/DL (8.8-10.2); CREATININE FOR GFR 1.42 MG/DL (0.55-1.30); GLOMERULAR FILTRATION RATE 39.9 (>45); MAGNESIUM LEVEL 2.2 MG/DL (1.8-2.4); POTASSIUM SERUM 4.6 MEQ/L (3.5-5.1); TOTAL PROTEIN 5.9 GM/DL (6.4-8.2)
== END ==
LOC: M LAB REF 13:00
PROVIDERS: ATTEND Internal Medicine
DX: Z94.81 Bone marrow transplant status (principal)

== ENCOUNTER → 2019-04-29 | Outpatient (REF) | payer MEDICARE, OTHER ==
[2019-04-29 14:48] LABS: BASO % 0.2 % (0.0-1.0); EOS # 0.2 10^3/uL (0.0-0.50); EOS % 2.5 % (0.0-3.0); HEMATOCRIT 29.9 % (36.0-47.0); HEMOGLOBIN 9.7 g/dl (12.0-15.5); LYMPH # 1.4 10^3/uL (1.5-4.5); LYMPH % 21.9 % (24.0-44.0); MEAN CORPUSCULAR HGB CONC 32.4 g/dl (32.0-36.5); MEAN CORPUSCULAR VOLUME 89.5 fl (80.0-96.0); MONO # 0.7 10^3/uL (0.0-0.8); MONO % 10.8 % (0.0-5.0); NEUTROPHILS # 4.1 10^3/uL (1.8-7.7); NEUTROPHILS % 64.3 % (36.0-66.0); PLATELET COUNT, AUTOMATED 165 10^3/uL (150-450); RED BLOOD COUNT 3.34 10^6/uL (4.00-5.40); WHITE BLOOD COUNT 6.4 10^3/uL (4.0-10.0)
[2019-04-29 15:20] LABS: ALBUMIN 3.3 GM/DL (3.2-5.2); BILIRUBIN,TOTAL 0.2 MG/DL (0.2-1.0); CALCIUM LEVEL 9.3 MG/DL (8.8-10.2); CREATININE FOR GFR 1.5 MG/DL (0.55-1.30); GLOMERULAR FILTRATION RATE 37.5 (>45); MAGNESIUM LEVEL 2.4 MG/DL (1.8-2.4); TOTAL PROTEIN 6.1 GM/DL (6.4-8.2)
== END ==
LOC: M LAB REF 14:24
PROVIDERS: ATTEND Internal Medicine
DX: Z94.81 Bone marrow transplant status (principal)

== ENCOUNTER → 2019-05-06 | Outpatient (REF) | payer MEDICARE, OTHER ==
[~2019-05-06] MED LIST changes: +MM S100C PO; -OMEP20CA3 PO; +OMEP20CA4 PO; -STOO100C PO
[2019-05-06 17:07] LABS: BASO % 0.3 % (0.0-1.0); EOS # 0.1 10^3/uL (0.0-0.50); EOS % 1.8 % (0.0-3.0); HEMATOCRIT 32.9 % (36.0-47.0); HEMOGLOBIN 10.3 g/dl (12.0-15.5); LYMPH # 1.3 10^3/uL (1.5-4.5); MEAN CORPUSCULAR HEMOGLOBIN 27.8 pg (27.0-33.0); MEAN CORPUSCULAR HGB CONC 31.3 g/dl (32.0-36.5); MEAN CORPUSCULAR VOLUME 88.9 fl (80.0-96.0); MONO # 0.5 10^3/uL (0.0-0.8); MONO % 8.1 % (0.0-5.0); NEUTROPHILS # 4.1 10^3/uL (1.8-7.7); NEUTROPHILS % 68.5 % (36.0-66.0); PLATELET COUNT, AUTOMATED 174 10^3/uL (150-450)
[2019-05-06 17:28] LABS: ALBUMIN 3.3 GM/DL (3.2-5.2); BILIRUBIN,TOTAL 0.3 MG/DL (0.2-1.0); CALCIUM LEVEL 9.6 MG/DL (8.8-10.2); CREATININE FOR GFR 1.42 MG/DL (0.55-1.30); GLOMERULAR FILTRATION RATE 39.9 (>45); MAGNESIUM LEVEL 1.9 MG/DL (1.8-2.4); POTASSIUM SERUM 4.8 MEQ/L (3.5-5.1); TOTAL PROTEIN 6.4 GM/DL (6.4-8.2)
== END ==
LOC: M LAB REF 16:16
PROVIDERS: ATTEND Internal Medicine
DX: Z94.81 Bone marrow transplant status (principal)

== ENCOUNTER → 2019-05-13 | Outpatient (REF) | payer MEDICARE, OTHER ==
[2019-05-13 13:11] LABS: BASO % 0.3 % (0.0-1.0); EOS # 0.2 10^3/uL (0.0-0.50); EOS % 2.8 % (0.0-3.0); HEMATOCRIT 29.5 % (36.0-47.0); HEMOGLOBIN 9.5 g/dl (12.0-15.5); LYMPH # 1.5 10^3/uL (1.5-4.5); LYMPH % 25.3 % (24.0-44.0); MEAN CORPUSCULAR HEMOGLOBIN 27.6 pg (27.0-33.0); MEAN CORPUSCULAR HGB CONC 32.2 g/dl (32.0-36.5); MEAN CORPUSCULAR VOLUME 85.8 fl (80.0-96.0); MONO # 0.6 10^3/uL (0.0-0.8); MONO % 10.8 % (0.0-5.0); NEUTROPHILS # 3.5 10^3/uL (1.8-7.7); NEUTROPHILS % 60.5 % (36.0-66.0); PLATELET COUNT, AUTOMATED 153 10^3/uL (150-450); RED BLOOD COUNT 3.44 10^6/uL (4.00-5.40); WHITE BLOOD COUNT 5.8 10^3/uL (4.0-10.0)
[2019-05-13 13:48] LABS: ALBUMIN 3.2 GM/DL (3.2-5.2); ALT/SGPT 52 U/L (12-78); BILIRUBIN,TOTAL < 0.1 MG/DL (0.2-1.0); BLOOD UREA NITROGEN 34 MG/DL (7-18); CALCIUM LEVEL 8.6 MG/DL (8.8-10.2); CARBON DIOXIDE LEVEL 24 MEQ/L (21-32); CHLORIDE LEVEL 102 MEQ/L (98-107); CREATININE FOR GFR 1.25 MG/DL (0.55-1.30); GLOMERULAR FILTRATION RATE 46.2 (>45); GLUCOSE, FASTING 145 MG/DL (70-100); LDH LACTATE DEHYDROGENASE 260 U/L (84-246); MAGNESIUM LEVEL 2.1 MG/DL (1.8-2.4); POTASSIUM SERUM 3.9 MEQ/L (3.5-5.1); SODIUM LEVEL 134 MEQ/L (136-145); TOTAL PROTEIN 5.9 GM/DL (6.4-8.2)
== END ==
LOC: M LAB REF 12:49
PROVIDERS: ATTEND Internal Medicine
DX: Z94.81 Bone marrow transplant status (principal)

== ENCOUNTER → 2019-05-20 | Outpatient (REF) | payer MEDICARE, OTHER ==
[2019-05-20 13:15] LABS: BASO % 0.3 % (0.0-1.0); EOS # 0.2 10^3/uL (0.0-0.50); EOS % 2.5 % (0.0-3.0); HEMATOCRIT 30.7 % (36.0-47.0); HEMOGLOBIN 9.9 g/dl (12.0-15.5); LYMPH # 1.5 10^3/uL (1.5-4.5); LYMPH % 18.9 % (24.0-44.0); MEAN CORPUSCULAR HEMOGLOBIN 28.5 pg (27.0-33.0); MEAN CORPUSCULAR HGB CONC 32.2 g/dl (32.0-36.5); MEAN CORPUSCULAR VOLUME 88.5 fl (80.0-96.0); MONO # 0.8 10^3/uL (0.0-0.8); MONO % 9.7 % (0.0-5.0); NEUTROPHILS # 5.3 10^3/uL (1.8-7.7); NEUTROPHILS % 68.3 % (36.0-66.0); PLATELET COUNT, AUTOMATED 164 10^3/uL (150-450); RED BLOOD COUNT 3.47 10^6/uL (4.00-5.40); WHITE BLOOD COUNT 7.7 10^3/uL (4.0-10.0)
[2019-05-20 13:58] LABS: ALBUMIN 2.2 GM/DL (3.2-5.2); ALT/SGPT 37 U/L (12-78); BILIRUBIN,TOTAL 0.1 MG/DL (0.2-1.0); BLOOD UREA NITROGEN 26 MG/DL (7-18); CALCIUM LEVEL 6.4 MG/DL (8.8-10.2); CARBON DIOXIDE LEVEL 20 MEQ/L (21-32); CHLORIDE LEVEL 117 MEQ/L (98-107); CREATININE FOR GFR 0.94 MG/DL (0.55-1.30); GLOMERULAR FILTRATION RATE > 60.0 (>45); GLUCOSE, FASTING 144 MG/DL (70-100); LDH LACTATE DEHYDROGENASE 172 U/L (84-246); MAGNESIUM LEVEL 1.4 MG/DL (1.8-2.4); POTASSIUM SERUM 3.1 MEQ/L (3.5-5.1); SODIUM LEVEL 145 MEQ/L (136-145); TOTAL PROTEIN 4.2 GM/DL (6.4-8.2)
== END ==
LOC: M LAB REF 12:46
PROVIDERS: ATTEND Internal Medicine
DX: Z94.81 Bone marrow transplant status (principal)

== ENCOUNTER → 2019-05-28 | Outpatient (REF) | payer MEDICARE, OTHER ==
[2019-05-28 13:40] LABS: BASO % 0.3 % (0.0-1.0); EOS # 0.1 10^3/uL (0.0-0.50); EOS % 1.9 % (0.0-3.0); HEMATOCRIT 30.9 % (36.0-47.0); HEMOGLOBIN 9.9 g/dl (12.0-15.5); LYMPH # 1.9 10^3/uL (1.5-4.5); LYMPH % 27.8 % (24.0-44.0); MEAN CORPUSCULAR HEMOGLOBIN 27.7 pg (27.0-33.0); MEAN CORPUSCULAR VOLUME 86.6 fl (80.0-96.0); MONO # 0.7 10^3/uL (0.0-0.8); MONO % 9.7 % (0.0-5.0); NEUTROPHILS # 4.1 10^3/uL (1.8-7.7); NEUTROPHILS % 60.2 % (36.0-66.0); PLATELET COUNT, AUTOMATED 180 10^3/uL (150-450); RED BLOOD COUNT 3.57 10^6/uL (4.00-5.40); WHITE BLOOD COUNT 6.8 10^3/uL (4.0-10.0)
[2019-05-28 13:59] LABS: ALBUMIN 3.5 GM/DL (3.2-5.2); BILIRUBIN,TOTAL 0.3 MG/DL (0.2-1.0); CALCIUM LEVEL 9.7 MG/DL (8.8-10.2); CREATININE FOR GFR 1.36 MG/DL (0.55-1.30); GLOMERULAR FILTRATION RATE 41.9 (>45); MAGNESIUM LEVEL 1.7 MG/DL (1.8-2.4); POTASSIUM SERUM 4.2 MEQ/L (3.5-5.1); TOTAL PROTEIN 6.3 GM/DL (6.4-8.2)
== END ==
LOC: M LAB REF 12:29
PROVIDERS: ATTEND Internal Medicine
DX: Z94.81 Bone marrow transplant status (principal)

== ENCOUNTER → 2019-06-03 | Outpatient (REF) | payer MEDICARE, OTHER ==
[2019-06-03 13:53] LABS: BASO % 0.3 % (0.0-1.0); EOS # 0.1 10^3/uL (0.0-0.50); EOS % 2.1 % (0.0-3.0); HEMATOCRIT 33.4 % (36.0-47.0); HEMOGLOBIN 10.6 g/dl (12.0-15.5); LYMPH # 1.4 10^3/uL (1.5-4.5); LYMPH % 21.7 % (24.0-44.0); MEAN CORPUSCULAR HEMOGLOBIN 27.5 pg (27.0-33.0); MEAN CORPUSCULAR HGB CONC 31.7 g/dl (32.0-36.5); MEAN CORPUSCULAR VOLUME 86.5 fl (80.0-96.0); MONO # 0.6 10^3/uL (0.0-0.8); MONO % 9.1 % (0.0-5.0); NEUTROPHILS # 4.2 10^3/uL (1.8-7.7); NEUTROPHILS % 66.5 % (36.0-66.0); RED BLOOD COUNT 3.86 10^6/uL (4.00-5.40); WHITE BLOOD COUNT 6.3 10^3/uL (4.0-10.0)
[2019-06-03 14:10] LABS: ALBUMIN 3.5 GM/DL (3.2-5.2); BILIRUBIN,TOTAL 0.2 MG/DL (0.2-1.0); CALCIUM LEVEL 10.2 MG/DL (8.8-10.2); CREATININE FOR GFR 1.34 MG/DL (0.55-1.30); GLOMERULAR FILTRATION RATE 42.7 (>45); MAGNESIUM LEVEL 1.9 MG/DL (1.8-2.4); POTASSIUM SERUM 4.7 MEQ/L (3.5-5.1); TOTAL PROTEIN 6.2 GM/DL (6.4-8.2)
[2019-06-03 14:23] LABS: PLATELET COUNT, AUTOMATED 167 10^3/uL (150-450)
== END ==
LOC: M LAB REF 12:55
PROVIDERS: ATTEND Internal Medicine
DX: Z94.81 Bone marrow transplant status (principal)
CPT/HCPCS: 80053; 80197; 83615; 83735; 85025; G0463

== ENCOUNTER → 2019-06-12 | Outpatient (REF) | payer MEDICARE, OTHER ==
[2019-06-12 12:51] LABS: BASO % 0.5 % (0.0-1.0); EOS # 0.1 10^3/uL (0.0-0.50); EOS % 1.4 % (0.0-3.0); HEMATOCRIT 29.5 % (36.0-47.0); HEMOGLOBIN 9.4 g/dl (12.0-15.5); LYMPH # 1.3 10^3/uL (1.5-4.5); LYMPH % 20.2 % (24.0-44.0); MEAN CORPUSCULAR HEMOGLOBIN 26.9 pg (27.0-33.0); MEAN CORPUSCULAR HGB CONC 31.9 g/dl (32.0-36.5); MEAN CORPUSCULAR VOLUME 84.5 fl (80.0-96.0); MONO # 0.6 10^3/uL (0.0-0.8); MONO % 8.6 % (0.0-5.0); NEUTROPHILS # 4.4 10^3/uL (1.8-7.7); NEUTROPHILS % 69.1 % (36.0-66.0); PLATELET COUNT, AUTOMATED 173 10^3/uL (150-450); RED BLOOD COUNT 3.49 10^6/uL (4.00-5.40); WHITE BLOOD COUNT 6.4 10^3/uL (4.0-10.0)
[2019-06-12 13:12] LABS: ALBUMIN 3.2 GM/DL (3.2-5.2); BILIRUBIN,TOTAL 0.2 MG/DL (0.2-1.0); CALCIUM LEVEL 9.9 MG/DL (8.8-10.2); CREATININE FOR GFR 1.45 MG/DL (0.55-1.30); POTASSIUM SERUM 4.6 MEQ/L (3.5-5.1); TOTAL PROTEIN 5.9 GM/DL (6.4-8.2)
== END ==
LOC: M LAB REF 12:19
PROVIDERS: ATTEND Internal Medicine
DX: Z94.81 Bone marrow transplant status (principal)

== ENCOUNTER → 2019-06-17 | Outpatient (REF) | payer MEDICARE, OTHER | LOC: M SFHCLERA 09:21 | PROVIDERS: ATTEND Family Medicine | DX: T38.0X5A Adverse effect of glucocorticoids and synthetic analogues, initial encounter (principal); Z53.8 Procedure and treatment not carried out for other reasons ==

== ENCOUNTER → 2019-06-18 | Outpatient (REF) | payer MEDICARE, OTHER ==
[2019-06-18 13:39] LABS: BASO % 0.3 % (0.0-1.0); EOS # 0.2 10^3/uL (0.0-0.50); EOS % 2.5 % (0.0-3.0); HEMOGLOBIN 9.5 g/dl (12.0-15.5); MEAN CORPUSCULAR HEMOGLOBIN 28.1 pg (27.0-33.0); MEAN CORPUSCULAR HGB CONC 31.7 g/dl (32.0-36.5); MEAN CORPUSCULAR VOLUME 88.8 fl (80.0-96.0); MONO # 0.5 10^3/uL (0.0-0.8); MONO % 7.6 % (0.0-5.0); NEUTROPHILS # 4.4 10^3/uL (1.8-7.7); NEUTROPHILS % 72.4 % (36.0-66.0); PLATELET COUNT, AUTOMATED 151 10^3/uL (150-450); RED BLOOD COUNT 3.38 10^6/uL (4.00-5.40); WHITE BLOOD COUNT 6.1 10^3/uL (4.0-10.0)
[2019-06-18 14:01] LABS: ALBUMIN 3.1 GM/DL (3.2-5.2); BILIRUBIN,TOTAL 0.2 MG/DL (0.2-1.0); CALCIUM LEVEL 9.1 MG/DL (8.8-10.2); CREATININE FOR GFR 1.49 MG/DL (0.55-1.30); GLOMERULAR FILTRATION RATE 37.7 (>45); MAGNESIUM LEVEL 1.8 MG/DL (1.8-2.4); POTASSIUM SERUM 4.6 MEQ/L (3.5-5.1); TOTAL PROTEIN 5.6 GM/DL (6.4-8.2)
== END ==
LOC: M LAB REF 12:27
PROVIDERS: ATTEND Internal Medicine
DX: Z94.81 Bone marrow transplant status (principal); T38.0X5A Adverse effect of glucocorticoids and synthetic analogues, initial encounter

== ENCOUNTER → 2019-06-18 | Outpatient (REF) | payer MEDICARE, OTHER ==
[2019-06-18 14:02] LABS: HEMOGLOBIN A1c 8.1 %
== END ==
LOC: M LAB REF 12:29
PROVIDERS: ATTEND Family Medicine
DX: Z94.81 Bone marrow transplant status (principal); T38.0X5A Adverse effect of glucocorticoids and synthetic analogues, initial encounter

== ENCOUNTER → 2019-07-02 | Outpatient (REF) | payer MEDICARE, OTHER ==
[~2019-07-02] MED LIST changes: +ADME100I SC; +ASPI81TA26 PO; +BISO5TAB14 PO; -BISO5TAB5 PO; +CALTTAB6 PO; +CHLO50TA PO; +FOLI1TAB11 PO; +IRON65TA2 PO; +LIDO2SO SSP; +MONT10TA2 PO; +OMEP1CAP73 PO; -OMEP20CA4 PO; +ONDA-83 PO; -ONDA4TAB5 PO; +OXYB15TA14 PO; -REPA1TAB PO; +REPA1TAB3 PO; -SERT-155 PO; +SERT50TA29 PO; +VALS1TAB68 PO; +VITA100066 PO
[2019-07-02 14:05] LABS: BASO % 0.5 % (0.0-1.0); EOS # 0.3 10^3/uL (0.0-0.50); EOS % 4.4 % (0.0-3.0); HEMOGLOBIN 10.6 g/dl (12.0-15.5); LYMPH # 1.6 10^3/uL (1.5-4.5); LYMPH % 23.9 % (24.0-44.0); MEAN CORPUSCULAR HEMOGLOBIN 28.4 pg (27.0-33.0); MEAN CORPUSCULAR HGB CONC 32.1 g/dl (32.0-36.5); MEAN CORPUSCULAR VOLUME 88.5 fl (80.0-96.0); MONO # 0.7 10^3/uL (0.0-0.8); MONO % 11.3 % (0.0-5.0); NEUTROPHILS # 3.9 10^3/uL (1.8-7.7); NEUTROPHILS % 59.6 % (36.0-66.0); PLATELET COUNT, AUTOMATED 175 10^3/uL (150-450); RED BLOOD COUNT 3.73 10^6/uL (4.00-5.40); WHITE BLOOD COUNT 6.5 10^3/uL (4.0-10.0)
[2019-07-02 14:39] LABS: ALBUMIN 3.4 GM/DL (3.2-5.2); BILIRUBIN,TOTAL 0.3 MG/DL (0.2-1.0); CALCIUM LEVEL 10.1 MG/DL (8.8-10.2); CREATININE FOR GFR 1.48 MG/DL (0.55-1.30); MAGNESIUM LEVEL 1.9 MG/DL (1.8-2.4); PHOSPHORUS LEVEL 3.4 MG/DL (2.5-4.9); POTASSIUM SERUM 4.3 MEQ/L (3.5-5.1); TOTAL PROTEIN 6.2 GM/DL (6.4-8.2)
== END ==
LOC: M LAB REF 13:01
PROVIDERS: ATTEND Internal Medicine
DX: Z94.81 Bone marrow transplant status (principal)

== ENCOUNTER → 2019-07-09 | Outpatient (REF) | payer MEDICARE, OTHER ==
[~2019-07-09] MED LIST changes: -ADME100I SC; -ASPI81TA26 PO; -BISO5TAB14 PO; +BISO5TAB9 PO; -CALTTAB6 PO; -CHLO50TA PO; -FOLI1TAB11 PO; -IRON65TA2 PO; -LIDO2SO SSP; -MONT10TA2 PO; -OMEP1CAP73 PO; +OMEP20CA4 PO; -ONDA-83 PO; +ONDA4TAB5 PO; -OXYB15TA14 PO; +REPA1TAB PO; -REPA1TAB3 PO; +SERT-155 PO; -SERT50TA29 PO; -VALS1TAB68 PO; -VITA100066 PO
[2019-07-09 17:13] LABS: HEMATOCRIT 29.8 % (36.0-47.0); HEMOGLOBIN 9.9 g/dl (12.0-15.5); MEAN CORPUSCULAR HEMOGLOBIN 28.4 pg (27.0-33.0); MEAN CORPUSCULAR HGB CONC 33.2 g/dl (32.0-36.5); MEAN CORPUSCULAR VOLUME 85.4 fl (80.0-96.0); PLATELET COUNT, AUTOMATED 191 10^3/uL (150-450); RED BLOOD COUNT 3.49 10^6/uL (4.00-5.40); WHITE BLOOD COUNT 7.1 10^3/uL (4.0-10.0)
[2019-07-09 17:24] LABS: ALBUMIN 3.2 GM/DL (3.2-5.2); BILIRUBIN,TOTAL 0.3 MG/DL (0.2-1.0); CALCIUM LEVEL 9.1 MG/DL (8.8-10.2); CREATININE FOR GFR 1.56 MG/DL (0.55-1.30); GLOMERULAR FILTRATION RATE 35.8 (>45); MAGNESIUM LEVEL 1.6 MG/DL (1.8-2.4); POTASSIUM SERUM 4.2 MEQ/L (3.5-5.1)
== END ==
LOC: M LAB REF 16:03
PROVIDERS: ATTEND Internal Medicine
DX: Z94.81 Bone marrow transplant status (principal)

== ENCOUNTER → 2019-07-16 | Outpatient (REF) | payer MEDICARE, OTHER ==
[2019-07-16 13:16] LABS: BASO % 0.5 % (0.0-1.0); EOS # 0.4 10^3/uL (0.0-0.5); EOS % 6.6 % (0.0-3.0); HEMATOCRIT 28.5 % (36.0-47.0); HEMOGLOBIN 9.4 g/dl (12.0-15.5); LYMPH # 1.1 10^3/uL (1.5-5.0); LYMPH % 17.4 % (24.0-44.0); MEAN CORPUSCULAR HEMOGLOBIN 28.3 pg (27.0-33.0); MEAN CORPUSCULAR VOLUME 85.8 fl (80.0-96.0); MONO # 0.7 10^3/uL (0.0-0.8); MONO % 11.2 % (0.0-5.0); NEUTROPHILS # 4.1 10^3/uL (1.5-8.5); NEUTROPHILS % 64.1 % (36.0-66.0); PLATELET COUNT, AUTOMATED 177 10^3/uL (150-450); RED BLOOD COUNT 3.32 10^6/uL (4.00-5.40); WHITE BLOOD COUNT 6.3 10^3/uL (4.0-10.0)
[2019-07-16 13:47] LABS: BILIRUBIN,TOTAL 0.2 MG/DL (0.2-1.0); CALCIUM LEVEL 9.3 MG/DL (8.8-10.2); CREATININE FOR GFR 1.37 MG/DL (0.55-1.30); GLOMERULAR FILTRATION RATE 41.6 (>45); MAGNESIUM LEVEL 1.8 MG/DL (1.8-2.4); POTASSIUM SERUM 4.5 MEQ/L (3.5-5.1); TOTAL PROTEIN 5.7 GM/DL (6.4-8.2)
== END ==
LOC: M LAB REF 12:27
PROVIDERS: ATTEND Internal Medicine
DX: Z94.81 Bone marrow transplant status (principal)

== ENCOUNTER → 2019-07-30 | Outpatient (REF) | payer MEDICARE, OTHER ==
[2019-07-30 12:02] LABS: BASO % 0.3 % (0.0-1.0); EOS # 0.4 10^3/uL (0.0-0.5); EOS % 5.9 % (0.0-3.0); HEMATOCRIT 30.7 % (36.0-47.0); HEMOGLOBIN 9.9 g/dl (12.0-15.5); LYMPH # 1.3 10^3/uL (1.5-5.0); LYMPH % 20.7 % (24.0-44.0); MEAN CORPUSCULAR HEMOGLOBIN 27.4 pg (27.0-33.0); MEAN CORPUSCULAR HGB CONC 32.2 g/dl (32.0-36.5); MONO # 0.8 10^3/uL (0.0-0.8); MONO % 12.3 % (0.0-5.0); NEUTROPHILS # 3.8 10^3/uL (1.5-8.5); NEUTROPHILS % 60.6 % (36.0-66.0); PLATELET COUNT, AUTOMATED 161 10^3/uL (150-450); RED BLOOD COUNT 3.61 10^6/uL (4.00-5.40); WHITE BLOOD COUNT 6.3 10^3/uL (4.0-10.0)
[2019-07-30 12:34] LABS: ALBUMIN 3.2 GM/DL (3.2-5.2); BILIRUBIN,TOTAL 0.3 MG/DL (0.2-1.0); CALCIUM LEVEL 9.9 MG/DL (8.8-10.2); CREATININE FOR GFR 1.48 MG/DL (0.55-1.30); MAGNESIUM LEVEL 1.8 MG/DL (1.8-2.4); POTASSIUM SERUM 4.5 MEQ/L (3.5-5.1)
== END ==
LOC: M LAB REF 11:27
PROVIDERS: ATTEND Internal Medicine
DX: Z94.81 Bone marrow transplant status (principal); D47.1 Chronic myeloproliferative disease; T86.5 Complications of stem cell transplant; D89.813 Graft-versus-host disease, unspecified; E09.22 Drug or chemical induced diabetes mellitus with diabetic chronic kidney disease; I12.9 Hypertensive chronic kidney disease with stage 1 through stage 4 chronic kidney disease, or unspecified chronic kidney disease; N18.9 Chronic kidney disease, unspecified; Z79.4 Long term (current) use of insulin; Z79.2 Long term (current) use of antibiotics; Z79.52 Long term (current) use of systemic steroids

== ENCOUNTER → 2019-08-05 | Outpatient (REF) | payer MEDICARE, OTHER | LOC: M SFHCLERA 10:04 | PROVIDERS: ATTEND Family Medicine | DX: R05 Cough (principal) ==

== ENCOUNTER → 2019-08-05 | Outpatient (CLI) | payer MEDICARE, OTHER ==
--- NOTE | 2019-08-05 13:41 | REP ---
REASON: Chronic cough. COMPARISON: Multiple, the latest 03/16/2019. There is mild cardiomegaly status quo. Lung gerardo are clear. The pleural angles are sharp. There is a double lumen central venous catheter unchanged. The osseous structures are stable and intact. IMPRESSION: No significant change from the prior exam. No evidence of acute disease. Electronically Signed by Luther Tsai DO 08/05/2019 02:39 P
== END ==
LOC: M LRY 09:53
PROVIDERS: ATTEND Family Medicine
DX: I51.7 Cardiomegaly (principal); R05 Cough
CPT/HCPCS: 71046; 87798; 90682; G0008; G0463

== ENCOUNTER → 2019-08-06 | Outpatient (REF) | payer MEDICARE, OTHER ==
[2019-08-06 13:10] LABS: BASO % 0.6 % (0.0-1.0); EOS # 0.4 10^3/uL (0.0-0.5); HEMATOCRIT 32.7 % (36.0-47.0); HEMOGLOBIN 10.5 g/dl (12.0-15.5); LYMPH # 1.4 10^3/uL (1.5-5.0); LYMPH % 20.6 % (24.0-44.0); MEAN CORPUSCULAR HEMOGLOBIN 28.8 pg (27.0-33.0); MEAN CORPUSCULAR HGB CONC 32.1 g/dl (32.0-36.5); MEAN CORPUSCULAR VOLUME 89.8 fl (80.0-96.0); MONO # 0.7 10^3/uL (0.0-0.8); MONO % 10.4 % (0.0-5.0); NEUTROPHILS # 4.3 10^3/uL (1.5-8.5); PLATELET COUNT, AUTOMATED 167 10^3/uL (150-450); RED BLOOD COUNT 3.64 10^6/uL (4.00-5.40)
[2019-08-06 13:20] LABS: ALBUMIN 3.3 GM/DL (3.2-5.2); BILIRUBIN,TOTAL 0.3 MG/DL (0.2-1.0); CALCIUM LEVEL 9.8 MG/DL (8.8-10.2); CREATININE FOR GFR 1.48 MG/DL (0.55-1.30); POTASSIUM SERUM 4.2 MEQ/L (3.5-5.1)
== END ==
LOC: M LAB REF 12:11
PROVIDERS: ATTEND Internal Medicine
DX: Z94.81 Bone marrow transplant status (principal)

== ENCOUNTER → 2019-08-13 | Outpatient (REF) | payer MEDICARE, OTHER ==
[2019-08-13 16:51] LABS: BASO % 0.5 % (0.0-1.0); EOS # 0.2 10^3/uL (0.0-0.5); EOS % 3.8 % (0.0-3.0); HEMATOCRIT 34.5 % (36.0-47.0); HEMOGLOBIN 10.6 g/dl (12.0-15.5); LYMPH # 1.4 10^3/uL (1.5-5.0); LYMPH % 22.9 % (24.0-44.0); MEAN CORPUSCULAR HEMOGLOBIN 28.4 pg (27.0-33.0); MEAN CORPUSCULAR HGB CONC 30.7 g/dl (32.0-36.5); MEAN CORPUSCULAR VOLUME 92.5 fl (80.0-96.0); MONO # 0.6 10^3/uL (0.0-0.8); MONO % 9.2 % (0.0-5.0); NEUTROPHILS # 3.7 10^3/uL (1.5-8.5); NEUTROPHILS % 62.4 % (36.0-66.0); PLATELET COUNT, AUTOMATED 144 10^3/uL (150-450); RED BLOOD COUNT 3.73 10^6/uL (4.00-5.40)
[2019-08-13 17:45] LABS: ALBUMIN 3.4 GM/DL (3.2-5.2); BILIRUBIN,TOTAL 0.2 MG/DL (0.2-1.0); CALCIUM LEVEL 9.9 MG/DL (8.8-10.2); CREATININE FOR GFR 1.59 MG/DL (0.55-1.30); POTASSIUM SERUM 4.9 MEQ/L (3.5-5.1); TOTAL PROTEIN 6.4 GM/DL (6.4-8.2)
== END ==
LOC: M LAB REF 16:36
PROVIDERS: ATTEND Internal Medicine
DX: Z94.81 Bone marrow transplant status (principal)

== ENCOUNTER → 2019-08-14 | Outpatient (REF) | payer MEDICARE, OTHER | LOC: M SFHCLERA 12:24 | PROVIDERS: ATTEND Family Medicine | DX: R32 Unspecified urinary incontinence (principal) ==

== ENCOUNTER 2019-08-19 10:31 | Emergency (ER) | payer MEDICARE, OTHER ==
[~2019-08-19] VITALS: Ht 165.1 cm; Wt 104.5 kg
[~2019-08-19 10:31] MED LIST changes: -REPA1TAB PO; +REPA1TAB3 PO; -SERT-155 PO; +SERT50TA29 PO
[2019-08-19] MEDS ORDERED: SODIUM CHLORIDE 0.9% INJ 10 ML SYR IV PRN (12:00)
[2019-08-19] MEDS ORDERED: METOCLOPRAMIDE INJ 10MG/2ML VIAL (J2765) IV ONE (12:15)
--- NOTE | 2019-08-19 12:23 | REP ---
PORTABLE CHEST X-RAY: Single view. HISTORY: Chest pain. COMPARISON CHEST X-RAY: August 05, 2019. FINDINGS: There is an Vtmhob-I-Vhfh catheter in place on the right with its tip in the expected location of the superior vena cava. Lungs are symmetrically aerated and clear. Pleural angles are sharp. Heart size is normal. Pulmonary vasculature is not increased. IMPRESSION: Tgvkvh-S-Hgwh catheter in place. Otherwise no acute disease. Electronically Signed by Karl Mercer MD 08/19/2019 01:53 P
[2019-08-19 13:08] LABS: BASO % 0.3 % (0.0-1.0); EOS # 0.1 10^3/uL (0.0-0.5); EOS % 1.1 % (0.0-3.0); HEMATOCRIT 34.3 % (36.0-47.0); LYMPH # 1.8 10^3/uL (1.5-5.0); LYMPH % 24.7 % (24.0-44.0); MEAN CORPUSCULAR HEMOGLOBIN 29.3 pg (27.0-33.0); MEAN CORPUSCULAR HGB CONC 32.1 g/dl (32.0-36.5); MEAN CORPUSCULAR VOLUME 91.5 fl (80.0-96.0); MONO # 0.8 10^3/uL (0.0-0.8); MONO % 11.2 % (0.0-5.0); NEUTROPHILS # 4.5 10^3/uL (1.5-8.5); NEUTROPHILS % 62.3 % (36.0-66.0); PLATELET COUNT, AUTOMATED 150 10^3/uL (150-450); RED BLOOD COUNT 3.75 10^6/uL (4.00-5.40); WHITE BLOOD COUNT 7.2 10^3/uL (4.0-10.0)
--- NOTE | 2019-08-19 13:23 | REP ---
INDICATION: Headache. PROCEDURE: CT scan of the head was performed without IV contrast. DATE AND TIME OF STUDY: 08/19/2019 12:20 COMPARISON STUDIES: 07/20/2018 FINDINGS: Image quality is mildly degraded by patient motion. There is no acute intracranial hemorrhage, acute cortical infarction, mass effect or hydrocephalous. Moderate diffuse volume loss is present. There is no acute calvarial fracture. CONCLUSION: No acute intracranial process. Cerebral volume loss. Electronically Signed by Praveen Parker DO 08/19/2019 01:14 P
[2019-08-19 13:45] LABS: CALCIUM LEVEL 9.4 MG/DL (8.8-10.2); CREATININE FOR GFR 1.27 MG/DL (0.55-1.30); GLOMERULAR FILTRATION RATE 45.4 (>45); POTASSIUM SERUM 3.8 MEQ/L (3.5-5.1); THYROID STIMULATING HORMONE 1.13 uIU/ML (0.358-3.740)
[2019-08-19] MEDS ORDERED: TRAM50TA2 PO (15:57)
[2019-08-19 16:08] VITALS: BP 127/58
--- NOTE | 2019-08-20 07:33 | ECGEPIP ---
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
== END 2019-08-19 16:08 | disposition home or self-care (01) ==
LOC: EDBD 10:31 → M ED 10:31
DX: G44.1 Vascular headache, not elsewhere classified (principal); M32.9 Systemic lupus erythematosus, unspecified; Z94.81 Bone marrow transplant status; Z79.899 Other long term (current) drug therapy; Z79.4 Long term (current) use of insulin; Z88.0 Allergy status to penicillin; Z88.1 Allergy status to other antibiotic agents; Z88.8 Allergy status to other drugs, medicaments and biological substances; Z91.018 Allergy to other foods; Z91.048 Other nonmedicinal substance allergy status
CPT/HCPCS: 36415; 70450; 71045; 80053; 80197; 83615; 83735; 84443; 85025; 93005; 93041; 94760; 96374; 99285; J2765

== ENCOUNTER → 2019-08-19 | Outpatient (REF) | payer MEDICARE, OTHER ==
[2019-08-19 12:55] LABS: BASO % 0.1 % (0.0-1.0); EOS % 0.6 % (0.0-3.0); HEMATOCRIT 35.8 % (36.0-47.0); HEMOGLOBIN 11.6 g/dl (12.0-15.5); LYMPH # 1.9 10^3/uL (1.5-5.0); LYMPH % 26.6 % (24.0-44.0); MEAN CORPUSCULAR HEMOGLOBIN 30.1 pg (27.0-33.0); MEAN CORPUSCULAR HGB CONC 32.4 g/dl (32.0-36.5); MONO # 0.6 10^3/uL (0.0-0.8); MONO % 8.6 % (0.0-5.0); NEUTROPHILS # 4.5 10^3/uL (1.5-8.5); NEUTROPHILS % 63.7 % (36.0-66.0); PLATELET COUNT, AUTOMATED 161 10^3/uL (150-450); RED BLOOD COUNT 3.85 10^6/uL (4.00-5.40)
[2019-08-19 13:12] LABS: ALBUMIN 3.6 GM/DL (3.2-5.2); BILIRUBIN,TOTAL 0.3 MG/DL (0.2-1.0); CREATININE FOR GFR 1.49 MG/DL (0.55-1.30); GLOMERULAR FILTRATION RATE 37.7 (>45); MAGNESIUM LEVEL 1.9 MG/DL (1.8-2.4); POTASSIUM SERUM 4.4 MEQ/L (3.5-5.1); TOTAL PROTEIN 6.4 GM/DL (6.4-8.2)
== END ==
LOC: M LAB REF 12:16
PROVIDERS: ATTEND Internal Medicine
DX: Z94.81 Bone marrow transplant status (principal)

== ENCOUNTER → 2019-08-26 | Outpatient (CLI) | payer MEDICARE, OTHER ==
--- NOTE | 2019-08-26 18:09 | REP ---
REASON: Followup pulmonary nodule. COMPARISON: 09/22/2018 and 09/12/2017. The mediastinum and pulmonary senthil are essentially unchanged. There is no evidence of a mass or adenopathy, however, today's exam is limited when compared to the prior exam which is contrast enhanced. There is no significant change in the appearance of the imaged upper abdomen or imaged osseous structures. There are no pleural or pericardial effusions. Evaluation of the lungs gerardo shows a stable 9 mm sized ground glass nodule in the superior segment of the left lower lobe. This has remained stable from the 09/12/2017 exam. No new abnormal nodules, masses or opacities have developed. IMPRESSION:Stable CT findings as described above. Electronically Signed by Luther Tsai DO 08/27/2019 10:26 A
== END ==
LOC: M RAD 14:36
DX: R91.1 Solitary pulmonary nodule (principal)

== ENCOUNTER → 2019-09-03 | Outpatient (REF) | payer MEDICARE, OTHER ==
[2019-09-03 15:47] LABS: HEMOGLOBIN A1c 7.5 %
== END ==
LOC: M LAB REF 14:59
PROVIDERS: ATTEND Family Medicine
DX: T38.0X5A Adverse effect of glucocorticoids and synthetic analogues, initial encounter (principal)

== ENCOUNTER → 2019-09-03 | Outpatient (REF) | payer MEDICARE, OTHER ==
[2019-09-03 15:20] LABS: BASO % 0.5 % (0.0-1.0); EOS # 0.2 10^3/uL (0.0-0.5); EOS % 3.1 % (0.0-3.0); HEMATOCRIT 31.9 % (36.0-47.0); HEMOGLOBIN 10.8 g/dl (12.0-15.5); LYMPH # 1.6 10^3/uL (1.5-5.0); LYMPH % 28.3 % (24.0-44.0); MEAN CORPUSCULAR HEMOGLOBIN 31.2 pg (27.0-33.0); MEAN CORPUSCULAR HGB CONC 33.9 g/dl (32.0-36.5); MEAN CORPUSCULAR VOLUME 92.2 fl (80.0-96.0); MONO # 0.7 10^3/uL (0.0-0.8); MONO % 12.8 % (0.0-5.0); NEUTROPHILS % 54.9 % (36.0-66.0); PLATELET COUNT, AUTOMATED 124 10^3/uL (150-450); RED BLOOD COUNT 3.46 10^6/uL (4.00-5.40); WHITE BLOOD COUNT 5.5 10^3/uL (4.0-10.0)
[2019-09-03 15:42] LABS: ALBUMIN 3.1 GM/DL (3.2-5.2); BILIRUBIN,TOTAL 0.2 MG/DL (0.2-1.0); CALCIUM LEVEL 9.1 MG/DL (8.8-10.2); CREATININE FOR GFR 1.68 MG/DL (0.55-1.30); GLOMERULAR FILTRATION RATE 32.9 (>45); MAGNESIUM LEVEL 1.8 MG/DL (1.8-2.4); POTASSIUM SERUM 4.2 MEQ/L (3.5-5.1); TOTAL PROTEIN 5.4 GM/DL (6.4-8.2)
== END ==
LOC: M LAB REF 14:54
PROVIDERS: ATTEND Internal Medicine
DX: D47.1 Chronic myeloproliferative disease (principal); T86.5 Complications of stem cell transplant; D89.813 Graft-versus-host disease, unspecified; E09.22 Drug or chemical induced diabetes mellitus with diabetic chronic kidney disease; I12.9 Hypertensive chronic kidney disease with stage 1 through stage 4 chronic kidney disease, or unspecified chronic kidney disease; N18.9 Chronic kidney disease, unspecified; I48.0 Paroxysmal atrial fibrillation; M32.9 Systemic lupus erythematosus, unspecified; Z94.81 Bone marrow transplant status; T38.0X5A Adverse effect of glucocorticoids and synthetic analogues, initial encounter

== ENCOUNTER → 2019-09-05 | Outpatient (CLI) | payer MEDICARE, OTHER ==
--- NOTE | 2019-09-05 20:05 | REP ---
Clinical: Chronic cough . Comparison: 08/05/2019 . Technique: PA and lateral. Findings: Double-lumen Gclrum-U-Hfxa with tip in the SVC. The mediastinum and cardiac silhouette are normal. The lung gerardo are clear and without acute consolidation, effusion, or pneumothorax. The skeletal structures are intact and normal. Impression: 1. No acute cardiopulmonary process. Electronically Signed by Dat Millard MD 09/05/2019 07:56 P
== END ==
LOC: M LRY 19:28
PROVIDERS: ATTEND Physician Assistant
DX: R05 Cough (principal); Z97.8 Presence of other specified devices
CPT/HCPCS: 71046; 94640; G0463

== ENCOUNTER → 2019-09-09 | Outpatient (REF) | payer MEDICARE, OTHER ==
[2019-09-09 13:22] LABS: BASO % 0.5 % (0.0-1.0); EOS # 0.3 10^3/uL (0.0-0.5); EOS % 4.1 % (0.0-3.0); HEMOGLOBIN 11.5 g/dl (12.0-15.5); LYMPH # 1.5 10^3/uL (1.5-5.0); LYMPH % 24.7 % (24.0-44.0); MEAN CORPUSCULAR HEMOGLOBIN 30.7 pg (27.0-33.0); MEAN CORPUSCULAR HGB CONC 32.9 g/dl (32.0-36.5); MEAN CORPUSCULAR VOLUME 93.3 fl (80.0-96.0); MONO # 0.7 10^3/uL (0.0-0.8); MONO % 11.7 % (0.0-5.0); NEUTROPHILS # 3.6 10^3/uL (1.5-8.5); NEUTROPHILS % 58.8 % (36.0-66.0); PLATELET COUNT, AUTOMATED 148 10^3/uL (150-450); RED BLOOD COUNT 3.75 10^6/uL (4.00-5.40); WHITE BLOOD COUNT 6.1 10^3/uL (4.0-10.0)
[2019-09-09 13:55] LABS: ALBUMIN 3.5 GM/DL (3.2-5.2); BILIRUBIN,TOTAL 0.3 MG/DL (0.2-1.0); CALCIUM LEVEL 9.6 MG/DL (8.8-10.2); CREATININE FOR GFR 1.43 MG/DL (0.55-1.30); GLOMERULAR FILTRATION RATE 39.6 (>45); POTASSIUM SERUM 3.8 MEQ/L (3.5-5.1); TOTAL PROTEIN 6.1 GM/DL (6.4-8.2)
== END ==
LOC: M LAB REF 12:37
PROVIDERS: ATTEND Internal Medicine
DX: Z94.81 Bone marrow transplant status (principal)

== ENCOUNTER → 2019-09-12 | Outpatient (REF) | payer MEDICARE, OTHER | LOC: M SFHCLERA 16:27 | PROVIDERS: ATTEND Family Medicine | DX: J40 Bronchitis, not specified as acute or chronic (principal) ==

== ENCOUNTER → 2019-09-12 | Outpatient (CLI) | payer MEDICARE, OTHER ==
--- NOTE | 2019-09-12 17:03 | REP ---
Portable chest, 04:47 p.m., single AP view: Comparison is the PA and lateral chest dated 09/05/2019. The lung gerardo are clear. The cardiac size is normal. The senthil, mediastinum, and skeletal structures are unremarkable. There is a right IJ Uxqfra-I-Cvep catheter with the tip in the superior vena cava, unchanged. Impression: Negative portable chest. There is no interval change. Electronically Signed by Miguel A Kumar MD 09/12/2019 04:55 P
== END ==
LOC: M LRY 16:23
PROVIDERS: ATTEND Family Medicine
DX: J40 Bronchitis, not specified as acute or chronic (principal); R97.8 Other abnormal tumor markers

== ENCOUNTER → 2019-09-17 | Outpatient (REF) | payer MEDICARE, OTHER ==
[2019-09-17 16:15] LABS: ALBUMIN 3.2 GM/DL (3.2-5.2); BILIRUBIN,TOTAL 0.3 MG/DL (0.2-1.0); CALCIUM LEVEL 9.5 MG/DL (8.8-10.2); CREATININE FOR GFR 1.43 MG/DL (0.55-1.30); GLOMERULAR FILTRATION RATE 39.6 (>45); MAGNESIUM LEVEL 1.7 MG/DL (1.8-2.4); POTASSIUM SERUM 4.1 MEQ/L (3.5-5.1); TOTAL PROTEIN 5.8 GM/DL (6.4-8.2)
[2019-09-17 16:19] LABS: BASO % 0.7 % (0.0-1.0); EOS # 0.2 10^3/uL (0.0-0.5); EOS % 4.2 % (0.0-3.0); HEMATOCRIT 32.4 % (36.0-47.0); HEMOGLOBIN 10.8 g/dl (12.0-15.5); LYMPH # 1.3 10^3/uL (1.5-5.0); LYMPH % 23.4 % (24.0-44.0); MEAN CORPUSCULAR HEMOGLOBIN 31.4 pg (27.0-33.0); MEAN CORPUSCULAR HGB CONC 33.3 g/dl (32.0-36.5); MEAN CORPUSCULAR VOLUME 94.2 fl (80.0-96.0); MONO # 0.7 10^3/uL (0.0-0.8); MONO % 12.6 % (0.0-5.0); NEUTROPHILS # 3.4 10^3/uL (1.5-8.5); NEUTROPHILS % 58.8 % (36.0-66.0); PLATELET COUNT, AUTOMATED 115 10^3/uL (150-450); RED BLOOD COUNT 3.44 10^6/uL (4.00-5.40); WHITE BLOOD COUNT 5.7 10^3/uL (4.0-10.0)
== END ==
LOC: M LAB REF 15:25
PROVIDERS: ATTEND Internal Medicine
DX: I12.9 Hypertensive chronic kidney disease with stage 1 through stage 4 chronic kidney disease, or unspecified chronic kidney disease (principal); N18.9 Chronic kidney disease, unspecified; D47.1 Chronic myeloproliferative disease; Z94.81 Bone marrow transplant status
CPT/HCPCS: 80053; 83615; 83735; 85025; G0463

== ENCOUNTER → 2019-09-24 | Outpatient (REF) | payer MEDICARE, OTHER ==
[2019-09-24 15:04] LABS: BASO % 0.5 % (0.0-1.0); EOS # 0.3 10^3/uL (0.0-0.5); EOS % 4.4 % (0.0-3.0); HEMOGLOBIN 11.5 g/dl (12.0-15.5); LYMPH # 1.6 10^3/uL (1.5-5.0); LYMPH % 24.6 % (24.0-44.0); MEAN CORPUSCULAR HEMOGLOBIN 31.5 pg (27.0-33.0); MEAN CORPUSCULAR HGB CONC 32.9 g/dl (32.0-36.5); MEAN CORPUSCULAR VOLUME 95.9 fl (80.0-96.0); MONO # 0.8 10^3/uL (0.0-0.8); MONO % 12.9 % (0.0-5.0); NEUTROPHILS # 3.6 10^3/uL (1.5-8.5); NEUTROPHILS % 57.3 % (36.0-66.0); PLATELET COUNT, AUTOMATED 109 10^3/uL (150-450); RED BLOOD COUNT 3.65 10^6/uL (4.00-5.40); WHITE BLOOD COUNT 6.4 10^3/uL (4.0-10.0)
[2019-09-24 15:17] LABS: CREATININE FOR GFR 1.53 MG/DL (0.55-1.30)
[2019-09-24 15:18] LABS: ALBUMIN 3.4 GM/DL (3.2-5.2); BILIRUBIN,TOTAL 0.2 MG/DL (0.2-1.0); CALCIUM LEVEL 9.7 MG/DL (8.8-10.2); GLOMERULAR FILTRATION RATE 36.6 (>45); MAGNESIUM LEVEL 1.8 MG/DL (1.8-2.4); POTASSIUM SERUM 4.2 MEQ/L (3.5-5.1); TOTAL PROTEIN 6.2 GM/DL (6.4-8.2)
== END ==
LOC: M LAB REF 13:59
PROVIDERS: ATTEND Internal Medicine
DX: Z94.81 Bone marrow transplant status (principal)

== ENCOUNTER → 2019-10-08 | Outpatient (REF) | payer MEDICARE, OTHER ==
[2019-10-08 15:14] LABS: BASO % 0.6 % (0.0-1.0); EOS # 0.3 10^3/uL (0.0-0.5); EOS % 4.1 % (0.0-3.0); HEMATOCRIT 36.3 % (36.0-47.0); LYMPH # 1.6 10^3/uL (1.5-5.0); LYMPH % 23.4 % (24.0-44.0); MEAN CORPUSCULAR HEMOGLOBIN 32.1 pg (27.0-33.0); MEAN CORPUSCULAR HGB CONC 33.1 g/dl (32.0-36.5); MEAN CORPUSCULAR VOLUME 97.1 fl (80.0-96.0); MONO # 0.7 10^3/uL (0.0-0.8); MONO % 9.8 % (0.0-5.0); NEUTROPHILS # 4.1 10^3/uL (1.5-8.5); NEUTROPHILS % 61.8 % (36.0-66.0); PLATELET COUNT, AUTOMATED 106 10^3/uL (150-450); RED BLOOD COUNT 3.74 10^6/uL (4.00-5.40); WHITE BLOOD COUNT 6.6 10^3/uL (4.0-10.0)
[2019-10-08 15:49] LABS: ALBUMIN 3.4 GM/DL (3.2-5.2); BILIRUBIN,TOTAL 0.5 MG/DL (0.2-1.0); CREATININE FOR GFR 1.49 MG/DL (0.55-1.30); GLOMERULAR FILTRATION RATE 37.7 (>45); MAGNESIUM LEVEL 2.1 MG/DL (1.8-2.4); POTASSIUM SERUM 4.3 MEQ/L (3.5-5.1); TOTAL PROTEIN 6.1 GM/DL (6.4-8.2)
== END ==
LOC: M LAB REF 13:56
PROVIDERS: ATTEND Internal Medicine
DX: Z94.81 Bone marrow transplant status (principal)

== ENCOUNTER → 2019-10-15 | Outpatient (REF) | payer MEDICARE, OTHER ==
[~2019-10-15] MED LIST changes: +OMEP-172 PO; -OMEP20CA4 PO
[2019-10-15 12:47] LABS: BASO # 0.1 10^3/uL (0.0-0.2); BASO % 0.8 % (0.0-1.0); EOS # 0.2 10^3/uL (0.0-0.5); EOS % 4.1 % (0.0-3.0); HEMATOCRIT 35.9 % (36.0-47.0); HEMOGLOBIN 11.9 g/dl (12.0-15.5); LYMPH # 1.7 10^3/uL (1.5-5.0); LYMPH % 28.2 % (24.0-44.0); MEAN CORPUSCULAR HEMOGLOBIN 32.6 pg (27.0-33.0); MEAN CORPUSCULAR HGB CONC 33.1 g/dl (32.0-36.5); MEAN CORPUSCULAR VOLUME 98.4 fl (80.0-96.0); MONO # 0.7 10^3/uL (0.0-0.8); NEUTROPHILS # 3.3 10^3/uL (1.5-8.5); NEUTROPHILS % 55.6 % (36.0-66.0); PLATELET COUNT, AUTOMATED 117 10^3/uL (150-450); RED BLOOD COUNT 3.65 10^6/uL (4.00-5.40); WHITE BLOOD COUNT 5.9 10^3/uL (4.0-10.0)
[2019-10-15 13:40] LABS: ALBUMIN 3.3 GM/DL (3.2-5.2); BILIRUBIN,TOTAL 0.3 MG/DL (0.2-1.0); CALCIUM LEVEL 9.6 MG/DL (8.8-10.2); CREATININE FOR GFR 1.45 MG/DL (0.55-1.30); MAGNESIUM LEVEL 1.9 MG/DL (1.8-2.4)
== END ==
LOC: M LAB REF 12:02
PROVIDERS: ATTEND Internal Medicine
DX: Z94.81 Bone marrow transplant status (principal)

== ENCOUNTER → 2019-10-24 | Outpatient (REF) | payer MEDICARE, OTHER ==
[2019-10-24 12:29] LABS: BASO % 0.4 % (0.0-1.0); EOS # 0.3 10^3/uL (0.0-0.5); EOS % 3.8 % (0.0-3.0); HEMATOCRIT 36.7 % (36.0-47.0); LYMPH % 28.8 % (24.0-44.0); MEAN CORPUSCULAR HEMOGLOBIN 32.9 pg (27.0-33.0); MEAN CORPUSCULAR HGB CONC 32.7 g/dl (32.0-36.5); MEAN CORPUSCULAR VOLUME 100.5 fl (80.0-96.0); MONO # 0.7 10^3/uL (0.0-0.8); MONO % 10.5 % (0.0-5.0); NEUTROPHILS # 3.8 10^3/uL (1.5-8.5); NEUTROPHILS % 56.4 % (36.0-66.0); PLATELET COUNT, AUTOMATED 107 10^3/uL (150-450); RED BLOOD COUNT 3.65 10^6/uL (4.00-5.40); WHITE BLOOD COUNT 6.8 10^3/uL (4.0-10.0)
[2019-10-24 13:11] LABS: ALBUMIN 3.5 GM/DL (3.2-5.2); BILIRUBIN,TOTAL 0.3 MG/DL (0.2-1.0); CALCIUM LEVEL 9.3 MG/DL (8.8-10.2); CREATININE FOR GFR 1.74 MG/DL (0.55-1.30); GLOMERULAR FILTRATION RATE 31.6 (>45); MAGNESIUM LEVEL 2.3 MG/DL (1.8-2.4); POTASSIUM SERUM 4.3 MEQ/L (3.5-5.1); TOTAL PROTEIN 6.2 GM/DL (6.4-8.2)
== END ==
LOC: M LAB REF 11:53
PROVIDERS: ATTEND Internal Medicine
DX: Z94.81 Bone marrow transplant status (principal)

== ENCOUNTER → 2019-11-13 | Outpatient (REF) | payer MEDICARE, OTHER ==
[~2019-11-13] MED LIST changes: +ADME100I SC; +ASPI81TA26 PO; +CALTTAB6 PO; +CHLO50TA PO; +FOLI1TAB11 PO; +IRON65TA2 PO; +LIDO2SO SSP; +MONT10TA2 PO; +OXYB1TAB13 PO; +VALS1TAB68 PO; +VITA100066 PO
[2019-11-13 20:14] LABS: BASO % 0.5 % (0.0-1.0); EOS # 0.6 10^3/uL (0.0-0.5); EOS % 7.7 % (0.0-3.0); HEMATOCRIT 38.8 % (36.0-47.0); HEMOGLOBIN 12.4 g/dl (12.0-15.5); LYMPH % 26.8 % (24.0-44.0); MEAN CORPUSCULAR HEMOGLOBIN 32.7 pg (27.0-33.0); MEAN CORPUSCULAR VOLUME 102.4 fl (80.0-96.0); MONO # 0.9 10^3/uL (0.0-0.8); MONO % 11.4 % (0.0-5.0); NEUTROPHILS % 53.5 % (36.0-66.0); PLATELET COUNT, AUTOMATED 102 10^3/uL (150-450); RED BLOOD COUNT 3.79 10^6/uL (4.00-5.40); WHITE BLOOD COUNT 7.4 10^3/uL (4.0-10.0)
== END ==
LOC: M SFHCLERA 15:48
PROVIDERS: ATTEND Family Medicine
DX: D69.1 Qualitative platelet defects (principal)

== ENCOUNTER → 2019-11-13 | Outpatient (CLI) | payer MEDICARE, OTHER ==
[2019-11-13 20:19] LABS: ALBUMIN 3.5 GM/DL (3.2-5.2); BILIRUBIN,TOTAL 0.2 MG/DL (0.2-1.0); CALCIUM LEVEL 9.6 MG/DL (8.8-10.2); CREATININE FOR GFR 2.07 MG/DL (0.55-1.30); GLOMERULAR FILTRATION RATE 25.8 (>45); MAGNESIUM LEVEL 2.4 MG/DL (1.8-2.4); POTASSIUM SERUM 4.2 MEQ/L (3.5-5.1); TOTAL PROTEIN 6.3 GM/DL (6.4-8.2)
== END ==
LOC: M LRY 16:01
PROVIDERS: ATTEND Nurse Practitioner
DX: Z94.81 Bone marrow transplant status (principal); D75.81 Myelofibrosis; D69.1 Qualitative platelet defects

== ENCOUNTER 2019-11-14 12:39 | Inpatient (IN) | payer MEDICARE, OTHER ==
[~2019-11-14] VITALS: Ht 165.1 cm; Wt 114.2 kg
[~2019-11-14 12:39] MED LIST changes: -ADME100I SC; -ASPI81TA26 PO; -CALTTAB6 PO; -CHLO50TA PO; -FOLI1TAB11 PO; -IRON65TA2 PO; -LIDO2SO SSP; -MONT10TA2 PO; -OXYB1TAB13 PO; -VALS1TAB68 PO; -VITA100066 PO
[2019-11-14 15:20] VITALS: BP 104/52
[2019-11-14] MEDS ORDERED: HEPARIN SOD (PORCINE) 5000 UNITS/ML VIAL SC SCH ×2 (16:15→21:00)
[2019-11-14] MEDS ORDERED: GLUCOSE 4 GM CHEW TABLET PO PRN (16:45)
[2019-11-14] MEDS ORDERED: GLUCAGON FOR INJ 1 MG VIAL (J1610) SC PRN (16:45)
[2019-11-14] MEDS ORDERED: DEXTROSE 50% 50 ML SYRINGE IV PRN (16:45)
--- NOTE | 2019-11-14 16:45 | HPEPDOC ---
General Date of Admission 11/14/19 Date of Service: Nov 14, 2019 Chief Complaint The patient is a 64-year-old female admitted with a reason for visit of Acute Kidney Injury. Source: Patient Exam Limitations: No limitations Timing/Duration: 24 hours Severity: Mild History of Present Illness Patient is 64 years old female with past medical history significant for myelofibrosis, status post stem cell transplant, atrial fibrillation, hypertension, lupus, fibromyalgia, obstructive sleep apnea on CPAP, steroid- induced diabetes was transferred from [facility] when she was found to have acute kidney injury. Patient stated that today she was found to have elevated creatinine PCP office, she went to the hospital. She was found to have dehydration and YUNG. Patient was transferred to [facility]. Patient denies fever, chills, nausea, vomiting, chest pain, palpitations, diarrhea or dysuria. Blood work from [facility] was significant for platelets count of 84, no leukocytosis, potassium 4.5, BUN 53 creatinine 1.9, chest x-ray showed cardiomegaly and no acute infiltrate. Home Medications Scheduled Acyclovir (Acyclovir) 400 Mg Tab, 400 MG PO BID, (Reported) Aspirin (Aspirin EC) 81 Mg Tablet.dr, 81 MG PO DAILY, (Reported) Budesonide (Budesonide EC) 3 Mg Cap, 3 MG PO BID, (Reported) Abdi/D3/Mag11/Zinc/Scientific Specialist/Thomas/Bor (Caltrate 600+D Plus Tablet) 1 Each Tablet, 1 TAB PO BID, (Reported) Chlorthalidone (Chlorthalidone) 50 Mg Tablet, 50 MG PO DAILY, (Reported) Cholecalciferol (Vitamin D3) (Vitamin D3) 1,000 Unit Tablet, 1,000 UNIT PO DAILY, (Reported) Diltiazem HCl (Diltiazem 24Hr ER) 300 Mg Tab.er.24h, 300 MG PO DAILY, (Reported) Docusate Sodium (Stool Softener) 100 Mg Cap, 200 MG PO BID, (Reported) Estradiol (Yuvafem) 10 Mcg Tablet, 10 MCG PV 3XW, (Reported) QHS ON MON, WED, FRI Ferrous Sulfate (Iron) 325 Mg Tablet, 325 MG PO DAILY, (Reported) Flecainide Acetate (Flecainide Acetate) 50 Mg Tablet, 50 MG PO BID, (Reported) Fluconazole (Diflucan) 200 Mg Tab, 200 MG PO QHS, (Reported) Folic Acid (Folic Acid) 1 Mg Tablet, 1 MG PO DAILY, (Reported) Gabapentin (Gabapentin) 300 Mg Cap, 300 MG PO BID, (Reported) Hydroxychloroquine Sulfate (Hydroxychloroquine Sulfate) 200 Mg Tablet, 200 MG PO DAILY, (Reported) Insulin Glargine,Hum.rec.anlog (Lantus Solostar) 100 Unit/Ml Inj, 26 UNITS SQ QHS, (Reported) Insulin Lispro (Admelog) 100 Unit/1 Ml Vial, 1 DOSE SC AC, (Reported) Isosorbide Mononitrate (Isosorbide Mononitrate ER) 60 Mg Tab.er.24h, 60 MG PO DAILY, (Reported) Lorazepam (Ativan) 1 Mg Tab, 1.5 MG PO QHS, (Reported) Magnesium Oxide (Magnesium) 400 Mg Capsule, 800 MG PO BID, (Reported) Montelukast Sodium (Montelukast Sodium) 10 Mg Tablet, 10 MG PO QHS, (Reported) Multivitamins (Thera M Plus Tablet) 1 Tab Tab, 1 TAB PO DAILY, (Reported) Nebivolol HCl (Bystolic) 10 Mg Tablet, 10 MG PO DAILY, (Reported) Oxybutynin Chloride (Oxybutynin Chloride ER) 15 Mg Tab.er.24, 15 MG PO QHS, (Reported) Pramipexole Di-HCl (Mirapex) 0.125 Mg Tab, 0.125 MG PO QAM, (Reported) Pramipexole Di-HCl (Mirapex) 0.125 Mg Tablet, 0.25 MG PO QHS, (Reported) Ranitidine HCl (Ranitidine HCl) 150 Mg Tab, 1 TAB PO QHS, (Reported) Repaglinide (Repaglinide) 0.5 Mg Tab, 0.5 MG PO WM, (Reported) Sennosides (Senna Lax) 8.6 Mg Tablet, 17.2 MG PO QHS, (Reported) Sertraline HCl (Sertraline HCl) 50 Mg Tab, 50 MG PO QHS, (Reported) Sulfamethoxazole/Trimethoprim (Bactrim Ds Tablet) 1 Each Tablet, 1 TAB PO 3XW, (Reported) MON, WED, FRI Tacrolimus (Prograf) 1 Mg Cap, 1 MG PO QAM, (Reported) Tacrolimus (Tacrolimus) 0.5 Mg Capsule, 0.5 MG PO QHS, (Reported) Valsartan (Valsartan) 320 Mg Tablet, 320 MG PO QHS, (Reported) Scheduled PRN Albuterol Sulfate (Ventolin Hfa) 18 Gm Hfa.aer.ad, 2 PUFF INH Q4H PRN for SHORTNESS OF BREATH, (Reported) Benzonatate (Tessalon Perle) 100 Mg Capsule, 100 MG PO TID PRN for COUGH, (Reported) Cyclobenzaprine HCl (Cyclobenzaprine HCl) 10 Mg Tab, 10 MG PO TID PRN for MUSCLE SPASMS, (Reported) Gabapentin (Gabapentin) 300 Mg Capsule, 300 MG PO DAILY PRN for NEUROPATHIC PAIN, (Reported) Lactulose (Lactulose) 10 Gm/15 Ml Maryellen, 15 ML PO TID PRN for CONSTIPATION, (Reported) Lidocaine HCl (Lidocaine HCl Viscous) 15 Ml Solution, 5 ML SSP PRN PRN for MOUTH PAIN, (Reported) Promethazine HCl (Promethazine HCl) 12.5 Mg Tablet, 12.5 MG PO Q6H PRN for NAUSEA OR VOMITING, (Reported) Tramadol HCl (Tramadol HCl) 50 Mg Tablet, 50 MG PO TID PRN for PAIN, (Reported) Allergies Coded Allergies: Contrast Media (Verified Allergy, Severe, tongue swelling, 03/16/19) Penicillins (Verified Allergy, Severe, CAN'T BREATH, 03/16/19) meperidine (Verified Allergy, Severe, CAN'T BREATH, 03/16/19) prochlorperazine (Verified Allergy, Severe, CAN'T BREATH, 11/14/19) TAKES PROMETHAZINE AT HOME; THEREFORE NOT A CLASS EFFECT adhesive tape (Verified Allergy, Intermediate, BLISTERS, 03/16/19) Quinolones (Verified Allergy, Unknown, UNKNOWN, 02/16/19) banana (Verified Adverse Reaction, Mild, VOMITING, 08/19/19) Past Medical History Medical History 1. Myelofibrosis, status post stem cell transplant in [place]. 2. Atrial fibrillation. 3. Hypertension. 4. Lupus. 5. Fibromyalgia. 6. YOHANA, on CPAP. 7. Steroid-induced diabetes. Surgical History 1. Stem cell transplant. 2. section. 3. Tonsillectomy. 4. Lithotripsy. Family History FATHER: 78 YRS, CORONARY ARTERY DISEASE, KIDNEY DISEASE, SCLERODERMA, ANEURYSM, HTN MOTHER: 74 YRS, HTN, CANCER, BREAST, CANCER, COLON GRANDPARENTS - HTN, LYMPHOMA, LEUKEMIA, DC. Social History * Smoker: Denies Alcohol: Denies Drugs: denies A-FIB/CHADSVASC A-FIB History Current/History of A-Fib/PAF?: Yes Current PO Anticoag Therapy: No Treatment Treatment ordered: Rivaroxaban Review of Systems Constitutional: Denies: Chills, Fever Eyes: Denies: Pain, Vision change ENT: Denies: Head Aches Skin: Denies: Rash Pulmonary: Denies: Dyspnea, Cough Cardiovascular: Denies: Chest Pain, Palpitations Gastrointestinal: Denies: Nausea, Vomiting Genitourinary: Denies: Dysuria, Frequency Hematologic: Denies: Bruising Endocrine: Denies: Polydipsia, Polyphagia Musculoskeletal: Denies: Neck Pain Neurological: Denies: Weakness Psych: Reports: Mood Normal Physical Examination General Exam: Positive: Alert, Cooperative Eye Exam: Positive: PERRLA, Conjunctiva & lids normal ENT Exam: Positive: Atraumatic Neck Exam: Positive: Supple; Negative: JVD Chest Exam: Positive: Clear to auscultation Heart Exam: Positive: Irregular Rhythm; Negative: Rate Normal Telemetry: Positive: Atrial fibrillation Abdomen Exam: Positive: Normal bowel sounds Extremity Exam: Negative: Clubbing, Cyanosis Skin Exam: Positive: Nl turgor and temperature Neuro Exam: Positive: Normal Tone, Cranial Nerves 3-12 NL Psych Exam: Positive: Mental status NL Vital Signs hr 76 Assessment/Plan Patient is 64 years old female with past medical history significant for myelofibrosis, status post stem cell transplant, atrial fibrillation, hypertension, lupus, fibromyalgia, obstructive sleep apnea on CPAP, steroid- induced diabetes was transferred from [facility] when she was found to have acute kidney injury. Patient stated that today she was found to have elevated creatinine PCP office, she went to the hospital. She was found to have dehydration and YUNG. Problems (1) YUNG (acute kidney injury) Status: Acute Problem Text: Most likely secondary to dehydration, prerenal Continue IV fluid Baseline creatinine around 0.9 Continue to monitor (2) Afib Status: Acute Problem Text: Heart rate is under control patient was not on the anticoagulation Xarelto started (3) Diabetes Status: Chronic Problem Text: Diabetes diet Insulin sliding scale (4) YOHANA on CPAP Status: Acute Problem Text: CPAP overnight Plan / VTE VTE Prophylaxis Ordered?: Yes NISREEN ABRAHAM DO Nov 14, 2019 16:45
[2019-11-14] MEDS: NS 1,000 ML IV SCH (17:10)
[2019-11-14] MEDS ORDERED: RIVAROXABAN 15 MG TAB (XARELTO) PO SCH (18:00)
[2019-11-14 18:05] LABS: ALBUMIN 2.9 GM/DL (3.2-5.2); BILIRUBIN,TOTAL 0.2 MG/DL (0.2-1.0); CALCIUM LEVEL 9.1 MG/DL (8.8-10.2); CREATININE FOR GFR 1.87 MG/DL (0.55-1.30); POTASSIUM SERUM 4.6 MEQ/L (3.5-5.1); TOTAL PROTEIN 5.1 GM/DL (6.4-8.2)
[2019-11-14] MEDS ORDERED: LIDO2SO SSP (18:14)
[2019-11-14] MEDS ORDERED: MONT10TA2 PO (18:14)
[2019-11-14] MEDS ORDERED: VITA100066 PO (18:14)
[2019-11-14] MEDS ORDERED: IRON65TA2 PO (18:14)
[2019-11-14] MEDS ORDERED: ASPI81TA26 PO (18:14)
[2019-11-14] MEDS ORDERED: CALTTAB6 PO (18:14)
[2019-11-14] MEDS ORDERED: GABA-843 PO (18:14)
[2019-11-14] MEDS ORDERED: HYDR200T3 PO (18:14)
[2019-11-14] MEDS ORDERED: CHLO50TA PO (18:14)
[2019-11-14] MEDS ORDERED: VALS1TAB68 PO (18:14)
[2019-11-14] MEDS ORDERED: ADME100I SC (18:14)
[2019-11-14] MEDS ORDERED: TESS100C PO (18:14)
[2019-11-14] MEDS ORDERED: TRAM50TA2 PO (18:14)
[2019-11-14] MEDS ORDERED: TACR0.5C3 PO (18:14)
[2019-11-14] MEDS ORDERED: OXYB1TAB13 PO (18:14)
[2019-11-14] MEDS ORDERED: FOLI1TAB11 PO (18:14)
[2019-11-14] MEDS: HumaLOG INSULIN (NovoLOG) PER UNIT SC SCH (18:17)
[2019-11-14] MEDS ORDERED: HumaLOG INSULIN (NovoLOG) PER UNIT SC SCH (21:00)
[2019-11-14] MEDS ORDERED: MONTELUKAST 10 MG TAB PO SCH (21:00)
[2019-11-14] MEDS ORDERED: PRAMIPEXOLE 0.25 MG TAB PO SCH (21:00)
[2019-11-14] MEDS ORDERED: TACROLIMUS 0.5 MG CAP PO SCH (21:00)
[2019-11-14] MEDS ORDERED: SERTRALINE HCL 50 MG TAB PO SCH (21:00)
[2019-11-14] MEDS ORDERED: LORazepam 0.5 MG TAB PO SCH (21:00)
[2019-11-14 21:44] LABS: APPEARANCE, URINE CLEAR (CLEAR); BACTERIA, URINE AUTO NEGATIVE (NEGATIVE); BILIRUBIN, URINE AUTO NEGATIVE (NEGATIVE); BLOOD, URINE BLOOD NEGATIVE (NEGATIVE); COLOR, URINE YELLOW (YELLOW); GLUCOSE, URINE (UA) AUTO NEGATIVE (NEGATIVE); KETONE, URINE AUTO NEGATIVE (NEGATIVE); LEUKOCYTE ESTERASE, URINE AUTO NEGATIVE (NEGATIVE); NITRITE, URINE AUTO NEGATIVE (NEGATIVE); PROTEIN, URINE AUTO NEGATIVE (NEGATIVE); RBC, URINE AUTO 3 /HPF (0-3); SPECIFIC GRAVITY URINE AUTO 1.013 (1.002-1.035); SQUAMOUS EPITHELIAL CELL UR AU 0 /HPF (0-6); UROBILINOGEN, URINE AUTO 0.2 mg/dL (0.0-2.0); WBC, URINE AUTO 3 /HPF (0-3)
[2019-11-14 22:00] VITALS: BP 120/57
[2019-11-14] MEDS ORDERED: LACTULOSE 20 GM/30 ML SYRUP UD PO PRN (22:30)
[2019-11-14] MEDS ORDERED: PROMETHAZINE 25 MG TAB PO PRN (22:30)
[2019-11-14] MEDS ORDERED: PILL CUTTER 1 EACH XX PRN (23:15)
[2019-11-14] MEDS: FLECAINIDE 50MG TABLET PO SCH (23:28)
[2019-11-14] MEDS: BUDESONIDE EC 3 MG CAP (ENTOCORT EC) PO SCH (23:29)
[2019-11-15] MEDS: NS 1,000 ML IV SCH ×2 (02:18→12:45)
[2019-11-15 06:59] LABS: BASO % 0.7 % (0.0-1.0); EOS # 0.4 10^3/uL (0.0-0.5); EOS % 8.6 % (0.0-3.0); HEMATOCRIT 33.6 % (36.0-47.0); HEMOGLOBIN 10.6 g/dl (12.0-15.5); LYMPH # 1.5 10^3/uL (1.5-5.0); LYMPH % 32.3 % (24.0-44.0); MEAN CORPUSCULAR HEMOGLOBIN 32.6 pg (27.0-33.0); MEAN CORPUSCULAR HGB CONC 31.5 g/dl (32.0-36.5); MEAN CORPUSCULAR VOLUME 103.4 fl (80.0-96.0); MONO # 0.6 10^3/uL (0.0-0.8); MONO % 13.7 % (0.0-5.0); NEUTROPHILS % 44.5 % (36.0-66.0); RED BLOOD COUNT 3.25 10^6/uL (4.00-5.40); WHITE BLOOD COUNT 4.5 10^3/uL (4.0-10.0)
[2019-11-15 07:18] LABS: PLATELET COUNT, AUTOMATED 76 10^3/uL (150-450)
[2019-11-15] MEDS: REPAGLINIDE 0.5 MG PO SCH ×2 (08:00→12:30)
[2019-11-15] MEDS: FLECAINIDE 50MG TABLET PO SCH (08:06)
[2019-11-15] MEDS: BUDESONIDE EC 3 MG CAP (ENTOCORT EC) PO SCH (08:06)
[2019-11-15] MEDS: HumaLOG INSULIN (NovoLOG) PER UNIT SC SCH ×2 (08:07→12:00)
[2019-11-15] MEDS ORDERED: CYCLOBENZAPRINE 10 MG TAB PO PRN (08:30)
[2019-11-15] MEDS ORDERED: traMADol 50 MG TAB PO PRN (08:30)
[2019-11-15] MEDS ORDERED: GABAPENTIN 300 MG CAP PO PRN (08:30)
[2019-11-15] MEDS ORDERED: ALBUTEROL 90 MCG/ACT 8GM HFA INHALER INH PRN (08:30)
[2019-11-15] MEDS ORDERED: PRAMIPEXOLE (MIRAPEX) 0.125 MG TAB PO SCH (09:00)
[2019-11-15] MEDS ORDERED: FERROUS SULFATE 325MG TAB PO SCH (09:00)
[2019-11-15] MEDS ORDERED: FOLIC ACID 1 MG TAB PO SCH (09:00)
[2019-11-15] MEDS ORDERED: NEBIVOLOL 5 MG TAB (BYSTOLIC) PO SCH (09:00)
[2019-11-15] MEDS ORDERED: GABAPENTIN 300 MG CAP PO SCH (09:00)
[2019-11-15] MEDS ORDERED: TACROLIMUS 1 MG CAP (J7507) PO SCH (09:00)
[2019-11-15] MEDS ORDERED: DOCUSATE SODIUM 100 MG CAP PO SCH (09:00)
[2019-11-15] MEDS ORDERED: ASPIRIN 81 MG ENTERIC TAB PO SCH (09:00)
[2019-11-15] MEDS ORDERED: ISOSORBIDE MON. (IMDUR) 60 MG XR TAB PO SCH (09:00)
[2019-11-15] MEDS ORDERED: HYDROXYCHLOROQUINE 200 MG TAB PO SCH (09:00)
[2019-11-15 09:18] VITALS: BP 120/57
[2019-11-15 09:20] VITALS: BP 120/57
--- NOTE | 2019-11-15 16:07 | DS.PDOC ---
Discharge Summary General Date of Admission Nov 14, 2019 at 15:20 Date of Discharge 11/15/19 Discharge Summary PROCEDURES PERFORMED DURING STAY: None ADMITTING DIAGNOSES: YUNG (acute kidney injury) Afib Diabetes YOHANA on CPAP DISCHARGE DIAGNOSES: YUNG (acute kidney injury) Afib Diabetes YOHANA on CPAP COMPLICATIONS/CHIEF COMPLAINT: Acute Kidney Injury. HISTORY OF PRESENT ILLNESS: Patient is 64 years old female with past medical history significant for myelofibrosis, status post stem cell transplant, atrial fibrillation, hypertension, lupus, fibromyalgia, obstructive sleep apnea on CPAP, steroid-induced diabetes was transferred from [facility] when she was found to have acute kidney injury. Patient stated that today she was found to have elevated creatinine PCP office, she went to the hospital. She was found to have dehydration and YUNG. Patient was transferred to [facility]. Patient denies fever, chills, nausea, vomiting, chest pain, palpitations, diarrhea or dysuria. Blood work from [facility] was significant for platelets count of 84, no leukocytosis, potassium 4.5, BUN 53 creatinine 1.9, chest x-ray showed cardiomegaly and no acute infiltrate. HOSPITAL COURSE: During hospital course patient received IV fluid, her creatinine improved to 1.8, GFR improved. Most likely YUNG was secondary to renal and prerenal causes. Due to stem cell transplant and lupus patient receives nephrotoxic medications and she was dehydrated. We recommended follow-up with pipe stem sawyer in the outpatient settings to adjust her medications. We recommended repeat BMP in 2-3 days. On the day of discharge patient did not have any cough, fever, chest pain, nausea, vomiting, chills, diarrhea or dysuria. Also patient was found to have atrial fibrillation, however she is not on any a nticoagulation. Patient stated that she is allergic to oral targeted anticoagulation Eliquis and xarelto. We defer to PCP to initiate Coumadin. DISCHARGE MEDICATIONS: Please see below. ALLERGIES: Please see below. PHYSICAL EXAMINATION ON DISCHARGE: VITAL SIGNS: Please see below. GENERAL APPEARANCE: Morbidly obese female HEENT: Normocephalic, atraumatic. Mucous members moist and pink CARDIOVASCULAR: Irregularly irregular rhythm. No murmurs, rubs or gallops. Radial pulses are intact. There is no lower extremity edema LUNGS: Diminished lung sounds ABDOMEN: Obese, Abdomen is soft and nontender. MUSCULOSKELETAL: Range of motion is intact in all 4 extremities NEUROLOGICAL: Cranial nerves II-12 are grossly intact. Speech is not dysarthric LABORATORY DATA: Please see below. PROGNOSIS: Favorable ACTIVITY: As tolerated DIET: Cardiac DISCHARGE PLAN: Home DISPOSITION: 01 Home, Self-Care. DISCHARGE INSTRUCTIONS: BMP in 2-3 days ITEMS TO FOLLOWUP ON ON OUTPATIENT: Follow-up with pipe stem sawyer and PCP DISCHARGE CONDITION: Stable TIME SPENT ON DISCHARGE: Greater than 20 minutes. Vital Signs/I&Os Vital Signs Date Time Temp Pulse Resp B/P (MAP) Pulse Ox O2 Delivery O2 Flow Rate FiO2 11/15/19 09:48 18 Room Air 11/15/19 09:20 99.1 64 120/57 98 I&O- Last 24 Hours up to 6 AM 11/15/19 06:00 Intake Total 920 ml Output Total 1100 ml Balance -180 ml Laboratory Data Labs 24H Laboratory Tests 2 11/14/19 17:03: Bedside Glucose (Misc Panel) 146H 11/14/19 17:21: Anion Gap 7L, Glomerular Filtration Rate 29.0L, Calcium Level 9.1, Total Bilirubin 0.2, Aspartate Amino Transf (AST/SGOT) 43H, Alanine Aminotransferase (ALT/SGPT) 68, Alkaline Phosphatase 78, Total Protein 5.1L, Albumin 2.9L, Album in/Globulin Ratio 1.32 11/14/19 20:02: Bedside Glucose (Misc Panel) 149H 11/14/19 21:24: Urine Color YELLOW, Urine Appearance CLEAR, Urine pH 6.0, Urine Specific [place] 1.013, Urine Protein NEGATIVE, Urine Glucose (Auto)(UA) NEGATIVE, Urine Ketones (Auto) NEGATIVE, Urine Blood NEGATIVE, Urine Nitrite NEGATIVE, Urine Bilirubin NEGATIVE, Urine Urobilinogen 0.2, Urine Leukocyte Esterase (Auto) NEGATIVE, Urine WBC (Auto) 3, Urine RBC (Auto) 3, Urine Hyaline Casts (Auto) 0, Urine Bacteria (Auto) NEGATIVE, Urine Squamous Epithelial Cells 0, Urine Sperm (Auto) 11/15/19 06:26: Immature Granulocyte % (Auto) 0.2, Neutrophils (%) (Auto) 44.5, Lymphocytes (%) (Auto) 32.3, Monocytes (%) (Auto) 13.7H, Eosinophils (%) (Auto) 8.6H, Basophils (%) (Auto) 0.7, Neutrophils # (Auto) 2.0, Lymphocytes # (Auto) 1.5, Monocytes # (Auto) 0.6, Eosinophils # (Auto) 0.4, Basophils # (Auto) 0.0, Nucleated Red Blood Cells % (auto) 0.0, Immature Platelet Fraction 2.4, Magnesium Level 1.9 11/15/19 11:04: Bedside Glucose (Misc Panel) 110 CBC/BMP Laboratory Tests 11/14/19 17:21 11/15/19 06:26 FSBS Laboratory Tests Test 11/14/19 17:03 11/14/19 20:02 11/15/19 11:04 Range/Units Bedside Glucose (Misc Panel) 146 149 110 80-115 MG/DL Discharge Medications Scheduled Acyclovir (Acyclovir) 400 Mg Tab, 400 MG PO BID, (Reported) Aspirin (Aspirin EC) 81 Mg Tablet.dr, 81 MG PO DAILY, (Reported) Budesonide (Budesonide EC) 3 Mg Cap, 3 MG PO BID, (Reported) Abdi/D3/Mag11/Zinc/Tumbling Barrel Painter/Thomas/Bor (Caltrate 600+D Plus Tablet) 1 Each Tablet, 1 TAB PO BID, (Reported) Chlorthalidone (Chlorthalidone) 50 Mg Tablet, 50 MG PO DAILY, (Reported) Cholecalciferol (Vitamin D3) (Vitamin D3) 1,000 Unit Tablet, 1,000 UNIT PO DAILY, (Reported) Diltiazem HCl (Diltiazem 24Hr ER) 300 Mg Tab.er.24h, 300 MG PO DAILY, (Reported) Docusate Sodium (Stool Softener) 100 Mg Cap, 200 MG PO BID, (Reported) Estradiol (Yuvafem) 10 Mcg Tablet, 10 MCG PV 3XW, (Reported) QHS ON MON, WED, FRI Ferrous Sulfate (Iron) 325 Mg Tablet, 325 MG PO DAILY, (Reported) Flecainide Acetate (Flecainide Acetate) 50 Mg Tablet, 50 MG PO BID, (Reported) Fluconazole (Diflucan) 200 Mg Tab, 200 MG PO QHS, (Reported) Folic Acid (Folic Acid) 1 Mg Tablet, 1 MG PO DAILY, (Reported) Gabapentin (Gabapentin) 300 Mg Cap, 300 MG PO BID, (Reported) Hydroxychloroquine Sulfate (Hydroxychloroquine Sulfate) 200 Mg Tablet, 200 MG PO DAILY, (Reported) Insulin Glargine,Hum.rec.anlog (Lantus Solostar) 100 Unit/Ml Inj, 26 UNITS SQ QHS, (Reported) Insulin Lispro (Admelog) 100 Unit/1 Ml Vial, 1 DOSE SC AC, (Reported) Isosorbide Mononitrate (Isosorbide Mononitrate ER) 60 Mg Tab.er.24h, 60 MG PO DAILY, (Reported) Lorazepam (Ativan) 1 Mg Tab, 1.5 MG PO QHS, (Reported) Magnesium Oxide (Magnesium) 400 Mg Capsule, 800 MG PO BID, (Reported) Montelukast Sodium (Montelukast Sodium) 10 Mg Tablet, 10 MG PO QHS, (Reported) Multivitamins (Thera M Plus Tablet) 1 Tab Tab, 1 TAB PO DAILY, (Reported) Nebivolol HCl (Bystolic) 10 Mg Tablet, 10 MG PO DAILY, (Reported) Oxybutynin Chloride (Oxybutynin Chloride ER) 15 Mg Tab.er.24, 15 MG PO QHS, (Reported) Pramipexole Di-HCl (Mirapex) 0.125 Mg Tab, 0.125 MG PO QAM, (Reported) Pramipexole Di-HCl (Mirapex) 0.125 Mg Tablet, 0.25 MG PO QHS, (Reported) Ranitidine HCl (Ranitidine HCl) 150 Mg Tab, 1 TAB PO QHS, (Reported) Repaglinide (Repaglinide) 0.5 Mg Tab, 0.5 MG PO WM, (Reported) Sennosides (Senna Lax) 8.6 Mg Tablet, 17.2 MG PO QHS, (Reported) Sertraline HCl (Sertraline HCl) 50 Mg Tab, 50 MG PO QHS, (Reported) Sulfamethoxazole/Trimethoprim (Bactrim Ds Tablet) 1 Each Tablet, 1 TAB PO 3XW, (Reported) MON, WED, FRI Tacrolimus (Prograf) 1 Mg Cap, 1 MG PO QAM, (Reported) Tacrolimus (Tacrolimus) 0.5 Mg Capsule, 0.5 MG PO QHS, (Reported) Valsartan (Valsartan) 320 Mg Tablet, 320 MG PO QHS, (Reported) Scheduled PRN Albuterol Sulfate (Ventolin Hfa) 18 Gm Hfa.aer.ad, 2 PUFF INH Q4H PRN for SH ORTNESS OF BREATH, (Reported) Benzonatate (Tessalon Perle) 100 Mg Capsule, 100 MG PO TID PRN for COUGH, (Reported) Cyclobenzaprine HCl (Cyclobenzaprine HCl) 10 Mg Tab, 10 MG PO TID PRN for MUSCLE SPASMS, (Reported) Gabapentin (Gabapentin) 300 Mg Capsule, 300 MG PO DAILY PRN for NEUROPATHIC PAIN, (Reported) Lactulose (Lactulose) 10 Gm/15 Ml Maryellen, 15 ML PO TID PRN for CONSTIPATION, (Reported) Lidocaine HCl (Lidocaine HCl Viscous) 15 Ml Solution, 5 ML SSP PRN PRN for MOUTH PAIN, (Reported) Promethazine HCl (Promethazine HCl) 12.5 Mg Tablet, 12.5 MG PO Q6H PRN for NAUSEA OR VOMITING, (Reported) Tramadol HCl (Tramadol HCl) 50 Mg Tablet, 50 MG PO TID PRN for PAIN, (Reported) Allergies Coded Allergies: Contrast Media (Verified Allergy, Severe, tongue swelling, 03/16/19) Penicillins (Verified Allergy, Severe, CAN'T BREATH, 03/16/19) meperidine (Verified Allergy, Severe, CAN'T BREATH, 03/16/19) prochlorperazine (Verified Allergy, Severe, CAN'T BREATH, 11/14/19) TAKES PROMETHAZINE AT HOME; THEREFORE NOT A CLASS EFFECT adhesive tape (Verified Allergy, Intermediate, BLISTERS, 03/16/19) Quinolones (Verified Allergy, Unknown, UNKNOWN, 02/16/19) banana (Verified Adverse Reaction, Mild, VOMITING, 08/19/19) NISREEN ABRAHAM DO Nov 15, 2019 16:07
--- NOTE | 2019-11-15 17:36 | ECGEPIP ---
Test Date: 2019-11-14 Pat Name: ROLAND ASHFORD Department: Room: [place] [address] Gender: Female Sheriffs Detective: TAMAR : 1955 Requested By: NISREEN ABRAHAM Order Number: [id number] Reading MD: Reyes Santillan Measurements Intervals [place] Rate: 59 P: 89 [place]: 240 QRS: -20 QRSD: 120 T: 56 QT: 440 QTc: 438 Interpretive Statements sinus bradycardia First-degree AV block Left axis deviation IVCD Nonspecific ST/T wave abnormalities No change from 08/19/19. Electronically Signed on 11-15-2019 17:36:17 EST by Reyes Santillan
[2019-11-15] MEDS ORDERED: oxyBUTYnin *DITROPAN XL* 5 MG TABCR PO SCH (21:00)
== END 2019-11-15 14:40 | disposition home or self-care (01) | DRG 683 ==
LOC: M MS5PR 15:20
PROVIDERS: ADMIT Internal Medicine; ATTEND Internal Medicine
DX: N17.9 Acute kidney failure, unspecified (principal); D75.81 Myelofibrosis; Z94.84 Stem cells transplant status; D69.1 Qualitative platelet defects; I48.91 Unspecified atrial fibrillation; I10 Essential (primary) hypertension; M32.9 Systemic lupus erythematosus, unspecified; M79.7 Fibromyalgia; G47.33 Obstructive sleep apnea (adult) (pediatric); E86.0 Dehydration; Z79.82 Long term (current) use of aspirin; Z79.4 Long term (current) use of insulin; Z79.899 Other long term (current) drug therapy; Z88.0 Allergy status to penicillin; Z88.8 Allergy status to other drugs, medicaments and biological substances; Z91.041 Radiographic dye allergy status; E09.9 Drug or chemical induced diabetes mellitus without complications; T38.0X5A Adverse effect of glucocorticoids and synthetic analogues, initial encounter; Z87.442 Personal history of urinary calculi

== ENCOUNTER → 2019-11-18 | Outpatient (CLI) | payer MEDICARE, OTHER ==
[~2019-11-18] MED LIST changes: +ADME100I SC; +ASPI81TA26 PO; +BISO5TAB14 PO; -BISO5TAB9 PO; +CALTTAB6 PO; +CHLO50TA PO; +FOLI1TAB11 PO; +IRON65TA2 PO; +LIDO2SO SSP; +MONT10TA2 PO; -OMEP-172 PO; +OMEP1CAP73 PO; +ONDA-83 PO; -ONDA4TAB5 PO; +OXYB15TA14 PO; +VALS1TAB68 PO; +VITA100066 PO
[2019-11-18 12:07] LABS: BASO # 0.1 10^3/uL (0.0-0.2); EOS # 0.6 10^3/uL (0.0-0.5); EOS % 9.6 % (0.0-3.0); HEMATOCRIT 39.9 % (36.0-47.0); HEMOGLOBIN 12.9 g/dl (12.0-15.5); LYMPH # 1.7 10^3/uL (1.5-5.0); LYMPH % 27.5 % (24.0-44.0); MEAN CORPUSCULAR HEMOGLOBIN 33.2 pg (27.0-33.0); MEAN CORPUSCULAR HGB CONC 32.3 g/dl (32.0-36.5); MEAN CORPUSCULAR VOLUME 102.6 fl (80.0-96.0); MONO # 0.8 10^3/uL (0.0-0.8); MONO % 12.5 % (0.0-5.0); NEUTROPHILS # 3.1 10^3/uL (1.5-8.5); NEUTROPHILS % 48.9 % (36.0-66.0); PLATELET COUNT, AUTOMATED 104 10^3/uL (150-450); RED BLOOD COUNT 3.89 10^6/uL (4.00-5.40); WHITE BLOOD COUNT 6.3 10^3/uL (4.0-10.0)
[2019-11-18 12:39] LABS: ALBUMIN 3.7 GM/DL (3.2-5.2); BILIRUBIN,TOTAL 0.4 MG/DL (0.2-1.0); CALCIUM LEVEL 9.6 MG/DL (8.8-10.2); CREATININE FOR GFR 1.44 MG/DL (0.55-1.30); GLOMERULAR FILTRATION RATE 39.3 (>45); POTASSIUM SERUM 4.2 MEQ/L (3.5-5.1); TOTAL PROTEIN 6.5 GM/DL (6.4-8.2)
== END ==
LOC: M LRY 09:36
PROVIDERS: ATTEND Nurse Practitioner
DX: N18.3 Chronic kidney disease, stage 3 (moderate) (principal); D75.81 Myelofibrosis
CPT/HCPCS: 36415; 80053; 85025; G0463

== ENCOUNTER → 2020-02-04 | Outpatient (REF) | payer MEDICARE, OTHER ==
[~2020-02-04] MED LIST changes: -MONT10TA2 PO; +MONT10TA4 PO
[2020-02-04 17:11] LABS: BASO % 0.1 % (0.0-1.0); EOS # 0.1 10^3/uL (0.0-0.5); EOS % 1.4 % (0.0-3.0); HEMOGLOBIN 11.8 g/dl (12.0-15.5); LYMPH # 1.8 10^3/uL (1.5-5.0); LYMPH % 23.7 % (24.0-44.0); MEAN CORPUSCULAR HEMOGLOBIN 33.4 pg (27.0-33.0); MEAN CORPUSCULAR HGB CONC 34.7 g/dl (32.0-36.5); MEAN CORPUSCULAR VOLUME 96.3 fl (80.0-96.0); MONO # 0.8 10^3/uL (0.0-0.8); MONO % 10.7 % (0.0-5.0); NEUTROPHILS # 4.7 10^3/uL (1.5-8.5); NEUTROPHILS % 63.8 % (36.0-66.0); PLATELET COUNT, AUTOMATED 160 10^3/uL (150-450); RED BLOOD COUNT 3.53 10^6/uL (4.00-5.40); WHITE BLOOD COUNT 7.4 10^3/uL (4.0-10.0)
[2020-02-04 17:48] LABS: ALBUMIN 3.3 GM/DL (3.2-5.2); BILIRUBIN,TOTAL 0.3 MG/DL (0.2-1.0); CALCIUM LEVEL 9.4 MG/DL (8.8-10.2); CREATININE FOR GFR 1.27 MG/DL (0.55-1.30); GLOMERULAR FILTRATION RATE 45.4 (>45); MAGNESIUM LEVEL 1.9 MG/DL (1.8-2.4); POTASSIUM SERUM 4.1 MEQ/L (3.5-5.1); TOTAL PROTEIN 6.2 GM/DL (6.4-8.2)
== END ==
LOC: M LAB REF 16:39
PROVIDERS: ATTEND Internal Medicine
DX: Z94.81 Bone marrow transplant status (principal); D75.81 Myelofibrosis

== ENCOUNTER → 2020-02-11 | Outpatient (REF) | payer MEDICARE, OTHER ==
[2020-02-11 17:05] LABS: BASO % 0.4 % (0.0-1.0); EOS # 0.1 10^3/uL (0.0-0.5); EOS % 1.4 % (0.0-3.0); HEMATOCRIT 35.9 % (36.0-47.0); HEMOGLOBIN 12.5 g/dl (12.0-15.5); LYMPH # 1.3 10^3/uL (1.5-5.0); LYMPH % 26.4 % (24.0-44.0); MEAN CORPUSCULAR HEMOGLOBIN 33.8 pg (27.0-33.0); MEAN CORPUSCULAR HGB CONC 34.8 g/dl (32.0-36.5); MONO # 0.6 10^3/uL (0.0-0.8); MONO % 12.1 % (0.0-5.0); NEUTROPHILS % 59.3 % (36.0-66.0); PLATELET COUNT, AUTOMATED 131 10^3/uL (150-450)
[2020-02-11 17:26] LABS: ALBUMIN 3.2 GM/DL (3.2-5.2); BILIRUBIN,TOTAL 0.4 MG/DL (0.2-1.0); CREATININE FOR GFR 1.45 MG/DL (0.55-1.30); MAGNESIUM LEVEL 1.8 MG/DL (1.8-2.4); POTASSIUM SERUM 4.5 MEQ/L (3.5-5.1); TOTAL PROTEIN 5.9 GM/DL (6.4-8.2)
== END ==
LOC: M LAB REF 16:19
PROVIDERS: ATTEND Nurse Practitioner
DX: Z94.81 Bone marrow transplant status (principal); D75.81 Myelofibrosis; Z79.899 Other long term (current) drug therapy; E11.65 Type 2 diabetes mellitus with hyperglycemia

== ENCOUNTER → 2020-02-11 | Outpatient (REF) | payer MEDICARE, OTHER ==
[2020-02-11 17:30] LABS: HEMOGLOBIN A1c 7.1 %
== END ==
LOC: M LAB REF 16:24
DX: E11.65 Type 2 diabetes mellitus with hyperglycemia (principal)

== ENCOUNTER → 2020-02-17 | Outpatient (REF) | payer MEDICARE, OTHER ==
[~2020-02-17] MED LIST changes: +CYCL-707 PO; -CYCL10TA PO; +PROG1CAP11 PO; -PROG1CAP2 PO
[2020-02-17 17:26] LABS: BASO % 0.4 % (0.0-1.0); EOS # 0.1 10^3/uL (0.0-0.5); EOS % 1.3 % (0.0-3.0); HEMATOCRIT 33.2 % (36.0-47.0); HEMOGLOBIN 11.4 g/dl (12.0-15.5); LYMPH # 1.5 10^3/uL (1.5-5.0); LYMPH % 27.1 % (24.0-44.0); MEAN CORPUSCULAR HEMOGLOBIN 33.1 pg (27.0-33.0); MEAN CORPUSCULAR HGB CONC 34.3 g/dl (32.0-36.5); MEAN CORPUSCULAR VOLUME 96.5 fl (80.0-96.0); MONO # 0.7 10^3/uL (0.0-0.8); MONO % 11.7 % (0.0-5.0); NEUTROPHILS # 3.3 10^3/uL (1.5-8.5); NEUTROPHILS % 59.1 % (36.0-66.0); PLATELET COUNT, AUTOMATED 142 10^3/uL (150-450); RED BLOOD COUNT 3.44 10^6/uL (4.00-5.40); WHITE BLOOD COUNT 5.6 10^3/uL (4.0-10.0)
[2020-02-17 17:45] LABS: ALBUMIN 3.4 GM/DL (3.2-5.2); BILIRUBIN,TOTAL 0.4 MG/DL (0.2-1.0); CALCIUM LEVEL 9.8 MG/DL (8.8-10.2); CREATININE FOR GFR 1.46 MG/DL (0.55-1.30); GLOMERULAR FILTRATION RATE 38.6 (>45); POTASSIUM SERUM 4.7 MEQ/L (3.5-5.1); TOTAL PROTEIN 6.1 GM/DL (6.4-8.2)
== END ==
LOC: M LAB REF 16:37
PROVIDERS: ATTEND Nurse Practitioner
DX: D47.1 Chronic myeloproliferative disease (principal); D75.81 Myelofibrosis; Z94.81 Bone marrow transplant status

== ENCOUNTER → 2020-02-25 | Outpatient (REF) | payer MEDICARE, OTHER ==
[2020-02-25 13:37] LABS: BASO % 0.3 % (0.0-1.0); EOS # 0.1 10^3/uL (0.0-0.5); EOS % 1.3 % (0.0-3.0); HEMOGLOBIN 11.7 g/dl (12.0-15.5); LYMPH # 1.8 10^3/uL (1.5-5.0); LYMPH % 28.7 % (24.0-44.0); MEAN CORPUSCULAR HEMOGLOBIN 33.5 pg (27.0-33.0); MEAN CORPUSCULAR HGB CONC 34.4 g/dl (32.0-36.5); MEAN CORPUSCULAR VOLUME 97.4 fl (80.0-96.0); MONO # 0.7 10^3/uL (0.0-0.8); MONO % 11.2 % (0.0-5.0); NEUTROPHILS # 3.6 10^3/uL (1.5-8.5); NEUTROPHILS % 58.2 % (36.0-66.0); PLATELET COUNT, AUTOMATED 150 10^3/uL (150-450); RED BLOOD COUNT 3.49 10^6/uL (4.00-5.40); WHITE BLOOD COUNT 6.1 10^3/uL (4.0-10.0)
[2020-02-25 13:52] LABS: ALBUMIN 3.5 GM/DL (3.2-5.2); BILIRUBIN,TOTAL 0.4 MG/DL (0.2-1.0); CALCIUM LEVEL 9.2 MG/DL (8.8-10.2); CREATININE FOR GFR 1.53 MG/DL (0.55-1.30); GLOMERULAR FILTRATION RATE 36.6 (>45); MAGNESIUM LEVEL 1.9 MG/DL (1.8-2.4); POTASSIUM SERUM 3.9 MEQ/L (3.5-5.1); TOTAL PROTEIN 6.3 GM/DL (6.4-8.2)
== END ==
LOC: M LAB REF 12:46
PROVIDERS: ATTEND Internal Medicine
DX: Z94.81 Bone marrow transplant status (principal)

== ENCOUNTER → 2020-03-01 | Outpatient (REF) | payer MEDICARE, OTHER ==
[2020-03-01 12:05] LABS: BASO % 0.5 % (0.0-1.0); EOS # 0.2 10^3/uL (0.0-0.5); EOS % 2.6 % (0.0-3.0); HEMATOCRIT 31.8 % (36.0-47.0); HEMOGLOBIN 10.7 g/dl (12.0-15.5); LYMPH # 1.9 10^3/uL (1.5-5.0); LYMPH % 32.4 % (24.0-44.0); MEAN CORPUSCULAR HEMOGLOBIN 33.2 pg (27.0-33.0); MEAN CORPUSCULAR HGB CONC 33.6 g/dl (32.0-36.5); MEAN CORPUSCULAR VOLUME 98.8 fl (80.0-96.0); MONO # 0.5 10^3/uL (0.0-0.8); MONO % 8.9 % (0.0-5.0); NEUTROPHILS # 3.2 10^3/uL (1.5-8.5); NEUTROPHILS % 55.3 % (36.0-66.0); PLATELET COUNT, AUTOMATED 155 10^3/uL (150-450); RED BLOOD COUNT 3.22 10^6/uL (4.00-5.40); WHITE BLOOD COUNT 5.9 10^3/uL (4.0-10.0)
[2020-03-01 12:26] LABS: ALBUMIN 3.3 GM/DL (3.2-5.2); BILIRUBIN,TOTAL 0.3 MG/DL (0.2-1.0); CALCIUM LEVEL 9.4 MG/DL (8.8-10.2); CREATININE FOR GFR 1.89 MG/DL (0.55-1.30); GLOMERULAR FILTRATION RATE 28.7 (>45); MAGNESIUM LEVEL 2.2 MG/DL (1.8-2.4)
== END ==
LOC: M LAB REF 11:50
PROVIDERS: ATTEND Internal Medicine
DX: Z94.81 Bone marrow transplant status (principal); D75.81 Myelofibrosis

== ENCOUNTER → 2020-03-16 | Outpatient (REF) | payer MEDICARE, OTHER ==
[2020-03-16 12:42] LABS: BASO % 0.3 % (0.0-1.0); EOS # 0.1 10^3/uL (0.0-0.5); EOS % 1.2 % (0.0-3.0); HEMATOCRIT 34.7 % (36.0-47.0); HEMOGLOBIN 11.9 g/dl (12.0-15.5); LYMPH # 1.4 10^3/uL (1.5-5.0); LYMPH % 23.9 % (24.0-44.0); MEAN CORPUSCULAR HEMOGLOBIN 33.5 pg (27.0-33.0); MEAN CORPUSCULAR HGB CONC 34.3 g/dl (32.0-36.5); MEAN CORPUSCULAR VOLUME 97.7 fl (80.0-96.0); MONO # 0.5 10^3/uL (0.0-0.8); MONO % 8.7 % (0.0-5.0); NEUTROPHILS # 3.9 10^3/uL (1.5-8.5); NEUTROPHILS % 65.7 % (36.0-66.0); PLATELET COUNT, AUTOMATED 151 10^3/uL (150-450); RED BLOOD COUNT 3.55 10^6/uL (4.00-5.40)
[2020-03-16 12:56] LABS: ALBUMIN 3.5 GM/DL (3.2-5.2); BILIRUBIN,TOTAL 0.3 MG/DL (0.2-1.0); CALCIUM LEVEL 9.5 MG/DL (8.8-10.2); CREATININE FOR GFR 1.52 MG/DL (0.55-1.30); GLOMERULAR FILTRATION RATE 36.9 (>45); POTASSIUM SERUM 4.2 MEQ/L (3.5-5.1); TOTAL PROTEIN 6.2 GM/DL (6.4-8.2)
== END ==
LOC: M LAB REF 12:19
PROVIDERS: ATTEND Internal Medicine
DX: Z94.81 Bone marrow transplant status (principal)

== ENCOUNTER → 2020-03-31 | Outpatient (REF) | payer MEDICARE, OTHER ==
[2020-03-31 19:00] LABS: BASO % 0.3 % (0.0-1.0); EOS # 0.1 10^3/uL (0.0-0.5); EOS % 1.8 % (0.0-3.0); HEMATOCRIT 33.5 % (36.0-47.0); HEMOGLOBIN 11.4 g/dl (12.0-15.5); LYMPH # 1.8 10^3/uL (1.5-5.0); LYMPH % 29.5 % (24.0-44.0); MEAN CORPUSCULAR HEMOGLOBIN 33.4 pg (27.0-33.0); MEAN CORPUSCULAR VOLUME 98.2 fl (80.0-96.0); MONO # 0.7 10^3/uL (0.0-0.8); NEUTROPHILS # 3.5 10^3/uL (1.5-8.5); NEUTROPHILS % 56.2 % (36.0-66.0); PLATELET COUNT, AUTOMATED 141 10^3/uL (150-450); RED BLOOD COUNT 3.41 10^6/uL (4.00-5.40); WHITE BLOOD COUNT 6.2 10^3/uL (4.0-10.0)
[2020-03-31 19:37] LABS: ALBUMIN 3.4 GM/DL (3.2-5.2); BILIRUBIN,TOTAL 0.4 MG/DL (0.2-1.0); CALCIUM LEVEL 9.1 MG/DL (8.8-10.2); CREATININE FOR GFR 1.54 MG/DL (0.55-1.30); GLOMERULAR FILTRATION RATE 36.2 (>45); MAGNESIUM LEVEL 2.1 MG/DL (1.8-2.4); POTASSIUM SERUM 3.7 MEQ/L (3.5-5.1)
== END ==
LOC: M LAB REF 18:46
PROVIDERS: ATTEND Internal Medicine
DX: Z94.81 Bone marrow transplant status (principal)

== ENCOUNTER → 2020-04-13 | Outpatient (REF) | payer MEDICARE, OTHER ==
[~2020-04-13] MED LIST changes: -LACT10SO29 PO; +LACT20EL PO
[2020-04-13 13:32] LABS: BASO % 0.3 % (0.0-1.0); EOS # 0.1 10^3/uL (0.0-0.5); EOS % 1.8 % (0.0-3.0); HEMATOCRIT 31.9 % (36.0-47.0); HEMOGLOBIN 10.7 g/dl (12.0-15.5); LYMPH # 1.5 10^3/uL (1.5-5.0); LYMPH % 24.8 % (24.0-44.0); MEAN CORPUSCULAR HEMOGLOBIN 32.9 pg (27.0-33.0); MEAN CORPUSCULAR HGB CONC 33.5 g/dl (32.0-36.5); MEAN CORPUSCULAR VOLUME 98.2 fl (80.0-96.0); MONO # 0.7 10^3/uL (0.0-0.8); MONO % 11.2 % (0.0-5.0); NEUTROPHILS # 3.7 10^3/uL (1.5-8.5); NEUTROPHILS % 61.6 % (36.0-66.0); PLATELET COUNT, AUTOMATED 128 10^3/uL (150-450); RED BLOOD COUNT 3.25 10^6/uL (4.00-5.40)
[2020-04-13 14:03] LABS: ALBUMIN 3.3 GM/DL (3.2-5.2); BILIRUBIN,TOTAL 0.3 MG/DL (0.2-1.0); CALCIUM LEVEL 8.6 MG/DL (8.8-10.2); CREATININE FOR GFR 1.42 MG/DL (0.55-1.30); GLOMERULAR FILTRATION RATE 39.8 (>45); MAGNESIUM LEVEL 2.1 MG/DL (1.8-2.4); TOTAL PROTEIN 5.9 GM/DL (6.4-8.2)
== END ==
LOC: M LAB REF 13:05
PROVIDERS: ATTEND Internal Medicine
DX: Z94.81 Bone marrow transplant status (principal)

== ENCOUNTER → 2020-04-23 | Outpatient (CLI) | payer MEDICARE, OTHER ==
[~2020-04-23] MED LIST changes: -AMLO10TA5 PO; +AMLO1TAB25 PO; +CEPH500C; +LORA1TAB4; +LOSA100T50; +PANT40TA29 PO; -PANT40TA3 PO; +PRAMIPEXOLE; +SULF1TAB93; +TORS5TAB2
--- NOTE | 2020-04-23 15:01 | REPPI ---
CHEST X-RAY: Two views. HISTORY: Cough. COMPARISON CHEST X-RAY: September 12, 2019. FINDINGS: A right-sided Ybhsbm-H-Lbyb catheter is again noted in place. The lungs are symmetrically aerated and clear. Heart is not enlarged. Pleural angles are sharp. There are degenerative changes in the thoracic spine. IMPRESSION: Right-sided Aflqpi-T-Otoz catheter. No active disease. Electronically Signed by Karl Mercer MD 04/23/2020 03:05 P
== END ==
LOC: M PLAIMG 13:34
PROVIDERS: ATTEND Family Medicine
DX: R05 Cough (principal); M51.34 Other intervertebral disc degeneration, thoracic region; Z97.8 Presence of other specified devices
CPT/HCPCS: 36415; 71046; 80053; 83605; 85025; 87486; 87581; 87633; 87798; G0463

== ENCOUNTER → 2020-04-23 | Outpatient (REF) | payer MEDICARE, OTHER ==
[~2020-04-23] MED LIST changes: +AMLO10TA5 PO; -AMLO1TAB25 PO; -CEPH500C; -LORA1TAB4; -LOSA100T50; -PANT40TA29 PO; +PANT40TA3 PO; -PRAMIPEXOLE; -SULF1TAB93; -TORS5TAB2
[2020-04-23 14:46] LABS: BASO % 0.3 % (0.0-1.0); EOS # 0.1 10^3/uL (0.0-0.5); EOS % 0.8 % (0.0-3.0); HEMATOCRIT 34.4 % (36.0-47.0); HEMOGLOBIN 11.8 g/dl (12.0-15.5); LYMPH # 1.8 10^3/uL (1.5-5.0); LYMPH % 25.4 % (24.0-44.0); MEAN CORPUSCULAR HEMOGLOBIN 32.8 pg (27.0-33.0); MEAN CORPUSCULAR HGB CONC 34.3 g/dl (32.0-36.5); MEAN CORPUSCULAR VOLUME 95.6 fl (80.0-96.0); MONO # 0.8 10^3/uL (0.0-0.8); MONO % 10.7 % (0.0-5.0); NEUTROPHILS # 4.4 10^3/uL (1.5-8.5); NEUTROPHILS % 62.4 % (36.0-66.0); PLATELET COUNT, AUTOMATED 147 10^3/uL (150-450); WHITE BLOOD COUNT 7.1 10^3/uL (4.0-10.0)
[2020-04-23 15:01] LABS: ALBUMIN 3.6 GM/DL (3.2-5.2); BILIRUBIN,TOTAL 0.3 MG/DL (0.2-1.0); CALCIUM LEVEL 10.3 MG/DL (8.8-10.2); CREATININE FOR GFR 1.53 MG/DL (0.55-1.30); GLOMERULAR FILTRATION RATE 36.5 (>45); POTASSIUM SERUM 3.6 MEQ/L (3.5-5.1); TOTAL PROTEIN 6.6 GM/DL (6.4-8.2)
== END ==
LOC: M SFHCPLAZ 13:33
PROVIDERS: ATTEND Family Medicine
DX: R05 Cough (principal)

== ENCOUNTER → 2020-04-27 | Outpatient (REF) | payer MEDICARE, OTHER ==
[2020-04-27 13:28] LABS: BASO % 0.3 % (0.0-1.0); EOS # 0.1 10^3/uL (0.0-0.5); EOS % 1.2 % (0.0-3.0); HEMATOCRIT 33.5 % (36.0-47.0); HEMOGLOBIN 11.6 g/dl (12.0-15.5); LYMPH # 1.5 10^3/uL (1.5-5.0); MEAN CORPUSCULAR HGB CONC 34.6 g/dl (32.0-36.5); MEAN CORPUSCULAR VOLUME 95.4 fl (80.0-96.0); MONO # 0.7 10^3/uL (0.0-0.8); MONO % 12.6 % (0.0-5.0); NEUTROPHILS # 3.5 10^3/uL (1.5-8.5); NEUTROPHILS % 59.7 % (36.0-66.0); PLATELET COUNT, AUTOMATED 127 10^3/uL (150-450); RED BLOOD COUNT 3.51 10^6/uL (4.00-5.40); WHITE BLOOD COUNT 5.8 10^3/uL (4.0-10.0)
[2020-04-27 13:59] LABS: ALBUMIN 3.4 GM/DL (3.2-5.2); BILIRUBIN,TOTAL 0.4 MG/DL (0.2-1.0); CALCIUM LEVEL 9.2 MG/DL (8.8-10.2); CREATININE FOR GFR 1.3 MG/DL (0.55-1.30); POTASSIUM SERUM 4.1 MEQ/L (3.5-5.1); TOTAL PROTEIN 6.3 GM/DL (6.4-8.2)
== END ==
LOC: M LAB REF 13:17
PROVIDERS: ATTEND Internal Medicine
DX: Z94.81 Bone marrow transplant status (principal)

== ENCOUNTER → 2020-05-07 | Outpatient (REF) | payer MEDICARE, OTHER ==
[2020-05-07 13:38] LABS: ALBUMIN 3.5 GM/DL (3.2-5.2); BILIRUBIN,TOTAL 0.4 MG/DL (0.2-1.0); CALCIUM LEVEL 9.3 MG/DL (8.8-10.2); CREATININE FOR GFR 1.5 MG/DL (0.55-1.30); GLOMERULAR FILTRATION RATE 37.3 (>45); PERCENT SATURATION 22.7 % (13.2-45.0); POTASSIUM SERUM 3.7 MEQ/L (3.5-5.1); TOTAL PROTEIN 6.4 GM/DL (6.4-8.2)
== END ==
LOC: M SFHCLERA 11:47
PROVIDERS: ATTEND Family Medicine
DX: G25.81 Restless legs syndrome (principal); E11.9 Type 2 diabetes mellitus without complications
CPT/HCPCS: 36415; 80053; 82728; 83550; G0463

== ENCOUNTER → 2020-05-11 | Outpatient (REF) | payer MEDICARE, OTHER ==
[~2020-05-11] MED LIST changes: -AMLO10TA5 PO; +AMLO1TAB25 PO; +CEPH500C; +LORA1TAB4; +LOSA100T50; +PANT40TA29 PO; -PANT40TA3 PO; +PRAMIPEXOLE; +SULF1TAB93; +TORS5TAB2
[2020-05-11 12:28] LABS: BASO % 0.2 % (0.0-1.0); EOS % 0.3 % (0.0-3.0); HEMATOCRIT 30.4 % (36.0-47.0); LYMPH # 1.5 10^3/uL (1.5-5.0); LYMPH % 25.1 % (24.0-44.0); MEAN CORPUSCULAR HEMOGLOBIN 33.8 pg (27.0-33.0); MEAN CORPUSCULAR HGB CONC 36.2 g/dl (32.0-36.5); MEAN CORPUSCULAR VOLUME 93.5 fl (80.0-96.0); MONO # 0.7 10^3/uL (0.0-0.8); MONO % 10.9 % (0.0-5.0); NEUTROPHILS # 3.8 10^3/uL (1.5-8.5); NEUTROPHILS % 63.3 % (36.0-66.0); PLATELET COUNT, AUTOMATED 145 10^3/uL (150-450); RED BLOOD COUNT 3.25 10^6/uL (4.00-5.40); WHITE BLOOD COUNT 6.1 10^3/uL (4.0-10.0)
[2020-05-11 14:24] LABS: ALBUMIN 3.4 GM/DL (3.2-5.2); BILIRUBIN,TOTAL 0.4 MG/DL (0.2-1.0); CALCIUM LEVEL 9.3 MG/DL (8.8-10.2); GLOMERULAR FILTRATION RATE 59.6 (>45); POTASSIUM SERUM 3.5 MEQ/L (3.5-5.1); TOTAL PROTEIN 6.1 GM/DL (6.4-8.2)
== END ==
LOC: M LAB REF 12:07
PROVIDERS: ATTEND Family Medicine
DX: E87.1 Hypo-osmolality and hyponatremia (principal)

== ENCOUNTER → 2020-05-11 | Outpatient (REF) | payer MEDICARE, OTHER ==
[2020-05-11 12:25] LABS: BASO % 0.2 % (0.0-1.0); EOS % 0.3 % (0.0-3.0); HEMATOCRIT 31.3 % (36.0-47.0); HEMOGLOBIN 11.1 g/dl (12.0-15.5); LYMPH # 1.6 10^3/uL (1.5-5.0); LYMPH % 25.3 % (24.0-44.0); MEAN CORPUSCULAR HEMOGLOBIN 33.4 pg (27.0-33.0); MEAN CORPUSCULAR HGB CONC 35.5 g/dl (32.0-36.5); MEAN CORPUSCULAR VOLUME 94.3 fl (80.0-96.0); MONO # 0.8 10^3/uL (0.0-0.8); NEUTROPHILS # 3.9 10^3/uL (1.5-8.5); PLATELET COUNT, AUTOMATED 149 10^3/uL (150-450); RED BLOOD COUNT 3.32 10^6/uL (4.00-5.40); WHITE BLOOD COUNT 6.3 10^3/uL (4.0-10.0)
[2020-05-11 13:23] LABS: ALBUMIN 3.4 GM/DL (3.2-5.2); BILIRUBIN,TOTAL 0.3 MG/DL (0.2-1.0); CALCIUM LEVEL 9.3 MG/DL (8.8-10.2); CREATININE FOR GFR 1.06 MG/DL (0.55-1.30); GLOMERULAR FILTRATION RATE 55.7 (>45); MAGNESIUM LEVEL 1.8 MG/DL (1.8-2.4); POTASSIUM SERUM 3.5 MEQ/L (3.5-5.1)
== END ==
LOC: M LAB REF 12:09
PROVIDERS: ATTEND Internal Medicine
DX: Z94.81 Bone marrow transplant status (principal)

== ENCOUNTER 2020-05-12 19:39 | Emergency (ER) | payer MEDICARE, OTHER ==
[~2020-05-12] VITALS: Ht 165.1 cm; Wt 102.2 kg
[~2020-05-12 19:39] MED LIST changes: -CEPH500C; -LORA1TAB4; -LOSA100T50; -PRAMIPEXOLE; -SULF1TAB93; -TORS5TAB2
[2020-05-12] MEDS ORDERED: LORazepam 2 MG/ML VIAL IV STA (20:20)
[2020-05-12] MEDS ORDERED: diphenhydrAMINE 50MG/ML VIAL (J1200) IV ONE (20:30)
[2020-05-12] MEDS ORDERED: KETOROLAC 30 MG/ML 1ML VIAL IV ONE (20:30)
[2020-05-12] MEDS ORDERED: NS 1,000 ML IV ONE (20:30)
[2020-05-12 20:56] LABS: BASO % 0.3 % (0.0-1.0); HEMATOCRIT 30.7 % (36.0-47.0); HEMOGLOBIN 11.2 g/dl (12.0-15.5); LYMPH # 1.6 10^3/uL (1.5-5.0); LYMPH % 25.8 % (24.0-44.0); MEAN CORPUSCULAR HEMOGLOBIN 33.9 pg (27.0-33.0); MEAN CORPUSCULAR HGB CONC 36.5 g/dl (32.0-36.5); MONO # 0.9 10^3/uL (0.0-0.8); MONO % 14.1 % (0.0-5.0); NEUTROPHILS # 3.8 10^3/uL (1.5-8.5); NEUTROPHILS % 59.5 % (36.0-66.0); PLATELET COUNT, AUTOMATED 150 10^3/uL (150-450); WHITE BLOOD COUNT 6.3 10^3/uL (4.0-10.0)
[2020-05-12 21:18] LABS: BLOOD UREA NITROGEN 24 MG/DL (7-18); CALCIUM LEVEL 9.1 MG/DL (8.8-10.2); CARBON DIOXIDE LEVEL 26 MEQ/L (21-32); CHLORIDE LEVEL 95 MEQ/L (98-107); CK-MB VALUE MASS 1.8 NG/ML (<3.6); CPK CREATINE PHOSPHOKINASE 90 U/L (26-192); CREATININE FOR GFR 1.22 MG/DL (0.55-1.30); GLOMERULAR FILTRATION RATE 47.4 (>45); GLUCOSE, FASTING 127 MG/DL (70-100); MAGNESIUM LEVEL 1.5 MG/DL (1.8-2.4); POTASSIUM SERUM 3.4 MEQ/L (3.5-5.1); SODIUM LEVEL 127 MEQ/L (136-145); TROPONIN I < 0.02 NG/ML (< 0.10)
[2020-05-12] MEDS ORDERED: POTASSIUM CHLORIDE 10 MEQ SR TABLET PO ONE (23:00)
[2020-05-12] MEDS ORDERED: MAGNESIUM OXIDE 400 MG TAB (MAG-OX) PO ONE (23:00)
[2020-05-12 23:47] VITALS: BP 154/86
== END 2020-05-12 23:49 | disposition home or self-care (01) ==
LOC: M ED 19:39
DX: E87.1 Hypo-osmolality and hyponatremia (principal); E87.6 Hypokalemia; E83.42 Hypomagnesemia; E11.9 Type 2 diabetes mellitus without complications; I10 Essential (primary) hypertension; M32.9 Systemic lupus erythematosus, unspecified; M79.7 Fibromyalgia; I25.10 Atherosclerotic heart disease of native coronary artery without angina pectoris; D47.1 Chronic myeloproliferative disease; Z79.899 Other long term (current) drug therapy; Z79.82 Long term (current) use of aspirin; Z79.4 Long term (current) use of insulin; Z88.0 Allergy status to penicillin; Z88.1 Allergy status to other antibiotic agents; Z88.8 Allergy status to other drugs, medicaments and biological substances; Z91.018 Allergy to other foods; Z91.041 Radiographic dye allergy status; Z91.048 Other nonmedicinal substance allergy status
CPT/HCPCS: 36415; 80048; 82533; 82550; 82553; 83036; 83735; 83935; 84300; 84439; 84443; 84484; 85025; 96361; 96374; 96375; 99291; J1200; J1885; J2060

== ENCOUNTER → 2020-05-12 | Outpatient (REF) | payer MEDICARE, OTHER ==
[2020-05-12 18:14] LABS: OSMOLALITY URINE 237 MOSM/KG (500-800)
[2020-05-12 18:40] LABS: SODIUM,RANDOM URINE 64 MEQ/L
[2020-05-12 18:43] LABS: CALCIUM LEVEL 8.9 MG/DL (8.8-10.2); CREATININE FOR GFR 1.32 MG/DL (0.55-1.30); FREE T4 1.19 NG/DL (0.76-1.46); GLOMERULAR FILTRATION RATE 43.3 (>45); POTASSIUM SERUM 3.5 MEQ/L (3.5-5.1); THYROID STIMULATING HORMONE 1.85 uIU/ML (0.358-3.740)
== END ==
LOC: M SFHCLERA 13:52
PROVIDERS: ATTEND Family Medicine
DX: E87.1 Hypo-osmolality and hyponatremia (principal)

== ENCOUNTER → 2020-05-12 | Outpatient (CLI) | payer MEDICARE, OTHER ==
[2020-05-12 18:29] LABS: FREE T4 1.22 NG/DL (0.76-1.46); THYROID STIMULATING HORMONE 1.87 uIU/ML (0.358-3.740)
[2020-05-12 18:31] LABS: CORTISOL PM 1.3 UG/DL (3.1-16.7)
[2020-05-12 19:37] LABS: HEMOGLOBIN A1c 6.5 %
== END ==
LOC: M PLALAB 13:36
PROVIDERS: ATTEND Internal Medicine
DX: E87.1 Hypo-osmolality and hyponatremia (principal); E11.9 Type 2 diabetes mellitus without complications

== ENCOUNTER → 2020-05-14 | Outpatient (CLI) | payer MEDICARE, OTHER ==
[~2020-05-14] MED LIST changes: +CEPH500C; +LORA1TAB4; +LOSA100T50; +PRAMIPEXOLE; +SULF1TAB93; +TORS5TAB2
[2020-05-14 17:58] LABS: ALBUMIN 3.4 GM/DL (3.2-5.2); BILIRUBIN,TOTAL 0.3 MG/DL (0.2-1.0); CREATININE FOR GFR 1.09 MG/DL (0.55-1.30); MAGNESIUM LEVEL 1.8 MG/DL (1.8-2.4); POTASSIUM SERUM 4.5 MEQ/L (3.5-5.1); TOTAL PROTEIN 5.9 GM/DL (6.4-8.2)
== END ==
LOC: M PLALAB 14:27
PROVIDERS: ATTEND Family Medicine
DX: E87.1 Hypo-osmolality and hyponatremia (principal)

== ENCOUNTER → 2020-05-19 | Outpatient (REF) | payer MEDICARE, OTHER ==
[~2020-05-19] MED LIST changes: +AMLO10TA5 PO; -AMLO1TAB25 PO; -CEPH500C; -LORA1TAB4; -LOSA100T50; -PANT40TA29 PO; +PANT40TA3 PO; -PRAMIPEXOLE; -SULF1TAB93; -TORS5TAB2
[2020-05-19 13:42] LABS: CALCIUM LEVEL 9.4 MG/DL (8.8-10.2); CREATININE FOR GFR 1.25 MG/DL (0.55-1.30); GLOMERULAR FILTRATION RATE 46.1 (>45); POTASSIUM SERUM 4.1 MEQ/L (3.5-5.1)
== END ==
LOC: M LAB REF 12:56
PROVIDERS: ATTEND Family Medicine
DX: E87.1 Hypo-osmolality and hyponatremia (principal)

== ENCOUNTER → 2020-05-19 | Outpatient (REF) | payer MEDICARE, OTHER | LOC: M LAB REF 12:54 | PROVIDERS: ATTEND Internal Medicine | DX: E87.1 Hypo-osmolality and hyponatremia (principal) ==

== ENCOUNTER → 2020-05-25 | Outpatient (REF) | payer MEDICARE, OTHER ==
[~2020-05-25] MED LIST changes: -AMLO10TA5 PO; +AMLO1TAB25 PO; +CEPH500C; +LORA1TAB4; +LOSA100T50; +PANT40TA29 PO; -PANT40TA3 PO; +PRAMIPEXOLE; +SULF1TAB93; +TORS5TAB2
[2020-05-25 12:30] LABS: BASO % 0.4 % (0.0-1.0); EOS # 0.1 10^3/uL (0.0-0.5); EOS % 2.4 % (0.0-3.0); HEMATOCRIT 33.5 % (36.0-47.0); HEMOGLOBIN 11.3 g/dl (12.0-15.5); LYMPH # 1.3 10^3/uL (1.5-5.0); LYMPH % 26.3 % (24.0-44.0); MEAN CORPUSCULAR HEMOGLOBIN 33.3 pg (27.0-33.0); MEAN CORPUSCULAR HGB CONC 33.7 g/dl (32.0-36.5); MEAN CORPUSCULAR VOLUME 98.8 fl (80.0-96.0); MONO # 0.5 10^3/uL (0.0-0.8); NEUTROPHILS % 60.5 % (36.0-66.0); PLATELET COUNT, AUTOMATED 155 10^3/uL (150-450); RED BLOOD COUNT 3.39 10^6/uL (4.00-5.40)
[2020-05-25 12:58] LABS: ALBUMIN 3.4 GM/DL (3.2-5.2); BILIRUBIN,TOTAL 0.3 MG/DL (0.2-1.0); CALCIUM LEVEL 9.3 MG/DL (8.8-10.2); CREATININE FOR GFR 1.26 MG/DL (0.55-1.30); GLOMERULAR FILTRATION RATE 45.7 (>45); POTASSIUM SERUM 3.8 MEQ/L (3.5-5.1); TOTAL PROTEIN 6.1 GM/DL (6.4-8.2)
== END ==
LOC: M LAB REF 11:37
PROVIDERS: ATTEND Internal Medicine
DX: Z94.81 Bone marrow transplant status (principal)

== ENCOUNTER → 2020-06-16 | Outpatient (REF) | payer MEDICARE, OTHER ==
[2020-08-09 11:19] LABS: BASO % 0.5 % (0.0-1.0); EOS # 0.1 10^3/uL (0.0-0.5); EOS % 2.4 % (0.0-3.0); HEMATOCRIT 32.1 % (36.0-47.0); LYMPH # 1.3 10^3/uL (1.5-5.0); MEAN CORPUSCULAR HEMOGLOBIN 33.5 pg (27.0-33.0); MEAN CORPUSCULAR HGB CONC 34.3 g/dl (32.0-36.5); MEAN CORPUSCULAR VOLUME 97.9 fl (80.0-96.0); MONO # 0.7 10^3/uL (0.0-0.8); MONO % 11.6 % (0.0-5.0); NEUTROPHILS # 3.6 10^3/uL (1.5-8.5); NEUTROPHILS % 62.2 % (36.0-66.0); PLATELET COUNT, AUTOMATED 141 10^3/uL (150-450); RED BLOOD COUNT 3.28 10^6/uL (4.00-5.40); WHITE BLOOD COUNT 5.8 10^3/uL (4.0-10.0)
[2020-08-11 04:26] LABS: ALBUMIN 3.3 GM/DL (3.2-5.2); BILIRUBIN,TOTAL 0.2 MG/DL (0.2-1.0); CALCIUM LEVEL 9.4 MG/DL (8.8-10.2); CREATININE FOR GFR 1.37 MG/DL (0.55-1.30); GLOMERULAR FILTRATION RATE 41.5 (>45); MAGNESIUM LEVEL 1.8 MG/DL (1.8-2.4); POTASSIUM SERUM 3.9 MEQ/L (3.5-5.1); TOTAL PROTEIN 5.9 GM/DL (6.4-8.2)
== END ==
LOC: M LAB REF 12:18
PROVIDERS: ATTEND Internal Medicine
DX: Z94.81 Bone marrow transplant status (principal)

== ENCOUNTER → 2020-07-28 | Outpatient (CLI) | payer MEDICARE, OTHER ==
[~2020-07-28] MED LIST changes: -MONT10TA4 PO; +MONT5TAB2 PO
--- NOTE | 2020-08-04 14:28 | REP ---
LUMBOSACRAL SPINE SERIES HISTORY: Pain after a fall. TECHNIQUE: Five views of the lumbosacral spine performed. FINDINGS: There is no compression fracture. There is minimal anterior listhesis of L4 on L5 and L5 on S1 due to posterior facet arthropathy. There is no evidence of spondylolysis. There is moderate diffuse spurring. There is mild disc space narrowing at all levels. There is sclerosis and spurring at the posterior facet joints diffusely, especially at L4-5 and L5-S1. Posterior elements appear intact. There is mild curvature toward the left. IMPRESSION: Moderate degenerative changes. No evidence of acute fracture. MTDD
--- NOTE | 2020-08-04 14:29 | REP ---
RIGHT SHOULDER SERIES HISTORY: Pain after a fall. TECHNIQUE: Three views of the right shoulder are performed. FINDINGS: No acute fracture or dislocation is seen. There is mild narrowing of the acromioclavicular joint. Incidental note is made of a right central venous catheter with the catheter extending into the superior vena cava. IMPRESSION: Mild degenerative changes. No fracture or dislocation. MTDD
== END ==
LOC: M WUC 16:00
PROVIDERS: ATTEND Family Medicine
DX: M25.511 Pain in right shoulder (principal); M54.5 Low back pain; Z23 Encounter for immunization
CPT/HCPCS: 72110; 73030; 90682; G0008; G0463

== ENCOUNTER 2020-08-03 16:02 | Emergency (ER) | payer MEDICARE, OTHER ==
[~2020-08-03] VITALS: Ht 165.1 cm; Wt 100.4 kg
[~2020-08-03 16:02] MED LIST changes: -CEPH500C; -LORA1TAB4; -LOSA100T50; -PRAMIPEXOLE; -SULF1TAB93; -TORS5TAB2
[2020-08-03] MEDS ORDERED: LORA1TAB4 (16:22)
[2020-08-03] MEDS ORDERED: PRAMIPEXOLE (16:22)
[2020-08-03] MEDS ORDERED: SULF1TAB93 (16:22)
[2020-08-03] MEDS ORDERED: LOSA100T50 (16:22)
[2020-08-03] MEDS ORDERED: CEPH500C (16:22)
[2020-08-03] MEDS ORDERED: TORS5TAB2 (16:22)
--- NOTE | 2020-08-03 18:17 | REPVR ---
PROCEDURE INFORMATION: Exam: XR Left Forearm Exam date and time: 08/03/2020 6:13 PM Age: 65 years old Clinical indication: Pain; Lower or forearm; Left; Additional info: Recent fall, bony tenderness TECHNIQUE: Imaging protocol: XR Left forearm. Views: 2 views. COMPARISON: SR CT-Forearm WITHOUT CONTRAST 07/03/2018 2:44 PM FINDINGS: Bones/joints: Degenerative changes in the triscaphe joint. No acute findings. Soft tissues: Normal. IMPRESSION: No acute findings. Electronically signed by: Aldair Lazcano On 08/03/2020 18:16:45 PM
[2020-08-03] MEDS ORDERED: diphenhydrAMINE 25MG CAP PO ONE (18:30)
[2020-08-03] MEDS ORDERED: ACETAMINOPHEN 500 MG TAB PO ONE (18:30)
--- NOTE | 2020-08-03 18:56 | REPVR ---
PROCEDURE INFORMATION: Exam: US Duplex Left Upper Extremity Veins, Limited Exam date and time: 08/03/2020 6:40 PM Age: 65 years old Clinical indication: Pain; Arm, lower; Left; Additional info: Pain to left forearm, RO clot TECHNIQUE: Imaging protocol: Real-time Duplex ultrasound of the Left Upper Extremity with 2-D lara scale, color Doppler flow and spectral waveform analysis with image documentation. Limited exam focused on the left upper extremity veins. COMPARISON: No relevant prior studies available. FINDINGS: Left deep veins: Unremarkable. Axillary and brachial veins are patent throughout without thrombus. Normal Doppler waveforms. Normal compressibility and/or augmentation response. Visualized internal jugular and subclavian veins are patent. Left superficial veins: Unremarkable. Visualized cephalic and basilic veins are patent without thrombus. Soft tissues: Unremarkable. IMPRESSION: No evidence of deep vein thrombosis. Electronically signed by: Aldair Lazcano On 08/03/2020 18:56:14 PM
[2020-08-03 19:08] VITALS: BP 143/65
== END 2020-08-03 19:53 | disposition home or self-care (01) ==
LOC: M ED 16:02
DX: M79.602 Pain in left arm (principal); R11.0 Nausea; Z94.81 Bone marrow transplant status; D75.81 Myelofibrosis; I48.91 Unspecified atrial fibrillation; I10 Essential (primary) hypertension; E11.9 Type 2 diabetes mellitus without complications; G47.33 Obstructive sleep apnea (adult) (pediatric); M32.9 Systemic lupus erythematosus, unspecified; R91.1 Solitary pulmonary nodule; Z88.8 Allergy status to other drugs, medicaments and biological substances; Z91.041 Radiographic dye allergy status; Z79.899 Other long term (current) drug therapy

== ENCOUNTER → 2020-08-03 | Outpatient (REF) | payer MEDICARE, OTHER ==
[~2020-08-03] MED LIST changes: +MONT10TA4 PO; -MONT5TAB2 PO
[2020-08-03 15:22] LABS: BASO % 0.5 % (0.0-1.0); EOS # 0.2 10^3/uL (0.0-0.5); EOS % 3.7 % (0.0-3.0); HEMATOCRIT 33.7 % (36.0-47.0); HEMOGLOBIN 11.3 g/dl (12.0-15.5); LYMPH # 1.8 10^3/uL (1.5-5.0); LYMPH % 29.5 % (24.0-44.0); MEAN CORPUSCULAR HEMOGLOBIN 33.5 pg (27.0-33.0); MEAN CORPUSCULAR HGB CONC 33.5 g/dl (32.0-36.5); MONO # 0.6 10^3/uL (0.0-0.8); MONO % 10.3 % (0.0-5.0); NEUTROPHILS # 3.5 10^3/uL (1.5-8.5); NEUTROPHILS % 55.8 % (36.0-66.0); PLATELET COUNT, AUTOMATED 159 10^3/uL (150-450); RED BLOOD COUNT 3.37 10^6/uL (4.00-5.40); WHITE BLOOD COUNT 6.2 10^3/uL (4.0-10.0)
[2020-08-03 15:44] LABS: ALBUMIN 3.2 GM/DL (3.2-5.2); BILIRUBIN,TOTAL 0.4 MG/DL (0.2-1.0); CALCIUM LEVEL 9.1 MG/DL (8.8-10.2); CREATININE FOR GFR 1.48 MG/DL (0.55-1.30); GLOMERULAR FILTRATION RATE 37.9 (>45); POTASSIUM SERUM 3.8 MEQ/L (3.5-5.1)
== END ==
LOC: M LAB REF 15:01
PROVIDERS: ATTEND Internal Medicine
DX: Z94.81 Bone marrow transplant status (principal); D75.81 Myelofibrosis

== ENCOUNTER → 2020-08-10 | Outpatient (CLI) | payer MEDICARE, OTHER ==
[~2020-08-10] MED LIST changes: +CEPH500C; +LORA1TAB4; +LOSA100T50; +PRAMIPEXOLE; +SULF1TAB93; +TORS5TAB2
--- NOTE | 2020-08-17 14:13 | REP ---
CT CHEST WITHOUT CONTRAST HISTORY: Pulmonary nodule. COMPARISON: Chest CT studies are reviewed from 08/26/2019, 09/22/2018, and 09/12/2017. There is also a comparison chest CT study from 10/26/2015. FINDINGS: There is a ground-glass opacity nodule in the superior segment of the left lower lobe again noted. This measures 10 mm today and is felt to be unchanged in dimension from the 10/26/[address] study. There is some adjacent linear fibrosis extending out to the posterolateral pleura. No new pulmonary nodule is appreciated. A right-sided Infusaport catheter is noted in the superior vena cava. Some vascular calcification is observed. No pleural or pericardial effusion is visible today. Normal adrenal glands are seen. No hilar or mediastinal mass or adenopathy is observed. IMPRESSION: Stable ground-glass opacity nodule superior segment left lower lobe. MTDD
== END ==
LOC: M RAD 13:14
PROVIDERS: ATTEND Nurse Practitioner Acute Care
DX: R91.1 Solitary pulmonary nodule (principal)

== ENCOUNTER → 2020-08-11 | Outpatient (CLI) | payer MEDICARE, OTHER ==
--- NOTE | 2020-08-17 14:14 | REP ---
RIGHT FOOT SERIES: 4-VIEWS HISTORY: Pain. COMPARISON: Radiographs of the right foot from 02/16/2019. FINDINGS: There is diffuse osteopenia. There is a mild hallux valgus deformity. There is mild vascular calcification. Plantar calcaneal spurring is noted. No fracture or erosive arthropathy is seen. IMPRESSION: Diffuse osteoporosis. Plantar heel spurring. Hallux valgus. No acute bony abnormality seen. MTDD
== END ==
LOC: M WUC 10:45
PROVIDERS: ATTEND Nurse Practitioner Family
DX: M85.871 Other specified disorders of bone density and structure, right ankle and foot (principal); M77.31 Calcaneal spur, right foot; M20.11 Hallux valgus (acquired), right foot; M79.671 Pain in right foot
CPT/HCPCS: 73630; G0463

== ENCOUNTER → 2020-08-19 | Outpatient (REF) | payer MEDICARE, OTHER ==
[2020-08-19 19:44] LABS: BASO % 0.5 % (0.0-1.0); EOS # 0.2 10^3/uL (0.0-0.5); EOS % 3.2 % (0.0-3.0); HEMATOCRIT 35.9 % (36.0-47.0); HEMOGLOBIN 11.7 g/dl (12.0-15.5); LYMPH # 1.9 10^3/uL (1.5-5.0); LYMPH % 28.7 % (24.0-44.0); MEAN CORPUSCULAR HEMOGLOBIN 32.9 pg (27.0-33.0); MEAN CORPUSCULAR HGB CONC 32.6 g/dl (32.0-36.5); MEAN CORPUSCULAR VOLUME 100.8 fl (80.0-96.0); MONO # 0.8 10^3/uL (0.0-0.8); NEUTROPHILS # 3.6 10^3/uL (1.5-8.5); NEUTROPHILS % 55.4 % (36.0-66.0); PLATELET COUNT, AUTOMATED 162 10^3/uL (150-450); RED BLOOD COUNT 3.56 10^6/uL (4.00-5.40); WHITE BLOOD COUNT 6.5 10^3/uL (4.0-10.0)
[2020-08-19 20:15] LABS: ALBUMIN 3.5 GM/DL (3.2-5.2); BILIRUBIN,TOTAL 0.3 MG/DL (0.2-1.0); CALCIUM LEVEL 9.6 MG/DL (8.8-10.2); CREATININE FOR GFR 1.48 MG/DL (0.55-1.30); GLOMERULAR FILTRATION RATE 37.9 (>45); MAGNESIUM LEVEL 1.9 MG/DL (1.8-2.4); POTASSIUM SERUM 3.8 MEQ/L (3.5-5.1); TOTAL PROTEIN 6.3 GM/DL (6.4-8.2)
== END ==
LOC: M LAB REF 19:33
PROVIDERS: ATTEND Nurse Practitioner
DX: E11.65 Type 2 diabetes mellitus with hyperglycemia (principal); D75.81 Myelofibrosis; Z94.81 Bone marrow transplant status

== ENCOUNTER → 2020-08-19 | Outpatient (REF) | payer MEDICARE, OTHER ==
[2020-08-19 20:05] LABS: HEMOGLOBIN A1c 5.9 %
[2020-08-19 21:07] LABS: FREE T4 1.11 NG/DL (0.76-1.46); THYROID STIMULATING HORMONE 1.48 uIU/ML (0.358-3.740)
[2020-08-19 22:29] LABS: CORTISOL BASELINE 0.6 UG/DL (4.3-22.4)
== END ==
LOC: M LAB REF 19:31
PROVIDERS: ATTEND Nurse Practitioner Family
DX: E11.65 Type 2 diabetes mellitus with hyperglycemia (principal)

== ENCOUNTER → 2020-09-07 | Outpatient (REF) | payer MEDICARE, OTHER ==
[2020-09-07 12:14] LABS: BASO % 0.4 % (0.0-1.0); EOS # 0.1 10^3/uL (0.0-0.5); HEMATOCRIT 35.9 % (36.0-47.0); HEMOGLOBIN 11.9 g/dl (12.0-15.5); LYMPH # 1.5 10^3/uL (1.5-5.0); LYMPH % 27.1 % (24.0-44.0); MEAN CORPUSCULAR HEMOGLOBIN 33.1 pg (27.0-33.0); MEAN CORPUSCULAR HGB CONC 33.1 g/dl (32.0-36.5); MONO # 0.6 10^3/uL (0.0-0.8); MONO % 11.2 % (0.0-5.0); NEUTROPHILS # 3.2 10^3/uL (1.5-8.5); NEUTROPHILS % 59.1 % (36.0-66.0); PLATELET COUNT, AUTOMATED 162 10^3/uL (150-450); RED BLOOD COUNT 3.59 10^6/uL (4.00-5.40); WHITE BLOOD COUNT 5.5 10^3/uL (4.0-10.0)
[2020-09-07 13:19] LABS: ALBUMIN 3.5 GM/DL (3.2-5.2); BILIRUBIN,TOTAL 0.5 MG/DL (0.2-1.0); CALCIUM LEVEL 9.7 MG/DL (8.8-10.2); CREATININE FOR GFR 1.3 MG/DL (0.55-1.30); POTASSIUM SERUM 4.2 MEQ/L (3.5-5.1); TOTAL PROTEIN 6.6 GM/DL (6.4-8.2)
== END ==
LOC: M LAB REF 11:13
PROVIDERS: ATTEND Internal Medicine
DX: Z94.81 Bone marrow transplant status (principal); D75.81 Myelofibrosis

== ENCOUNTER → 2020-09-21 | Outpatient (REF) | payer MEDICARE, OTHER ==
[2020-09-21 11:51] LABS: BASO % 0.4 % (0.0-1.0); EOS # 0.1 10^3/uL (0.0-0.5); EOS % 1.8 % (0.0-3.0); HEMATOCRIT 36.6 % (36.0-47.0); HEMOGLOBIN 12.3 g/dl (12.0-15.5); LYMPH # 1.6 10^3/uL (1.5-5.0); LYMPH % 28.9 % (24.0-44.0); MEAN CORPUSCULAR HEMOGLOBIN 33.6 pg (27.0-33.0); MEAN CORPUSCULAR HGB CONC 33.6 g/dl (32.0-36.5); MONO # 0.6 10^3/uL (0.0-0.8); MONO % 10.9 % (0.0-5.0); NEUTROPHILS # 3.2 10^3/uL (1.5-8.5); NEUTROPHILS % 57.6 % (36.0-66.0); PLATELET COUNT, AUTOMATED 165 10^3/uL (150-450); RED BLOOD COUNT 3.66 10^6/uL (4.00-5.40); WHITE BLOOD COUNT 5.5 10^3/uL (4.0-10.0)
[2020-09-21 12:20] LABS: ALBUMIN 3.5 GM/DL (3.2-5.2); BILIRUBIN,TOTAL 0.3 MG/DL (0.2-1.0); CALCIUM LEVEL 10.1 MG/DL (8.8-10.2); CREATININE FOR GFR 1.47 MG/DL (0.55-1.30); GLOMERULAR FILTRATION RATE 38.2 (>45); POTASSIUM SERUM 4.3 MEQ/L (3.5-5.1); TOTAL PROTEIN 6.5 GM/DL (6.4-8.2)
== END ==
LOC: M LAB REF 11:30
PROVIDERS: ATTEND Nurse Practitioner
DX: D47.1 Chronic myeloproliferative disease (principal); T86.5 Complications of stem cell transplant; D89.813 Graft-versus-host disease, unspecified; I12.9 Hypertensive chronic kidney disease with stage 1 through stage 4 chronic kidney disease, or unspecified chronic kidney disease; E09.43 Drug or chemical induced diabetes mellitus with neurological complications with diabetic autonomic (poly)neuropathy

== ENCOUNTER → 2020-10-05 | Outpatient (CLI) | payer MEDICARE, OTHER ==
[~2020-10-05] MED LIST changes: -MONT10TA4 PO; +MONT5TAB2 PO
--- NOTE | 2020-10-05 14:33 | DEXAMM ---
INDICATION: HX OF CHRONIC PREDNISONE USE. COMPARISON: Comparison DEXA studies are dated March 07, 2013, August 09, 2010, July 02, 2008, June 23, 2006, and December 15, 2000.. TECHNIQUE: Bone density was measured using dual-energy x-ray absorptionmetry (DEXA). FINDINGS: AP SPINE L1-L4 BMD 1.418 g/cm2 Young Adult T-Score 1.6 Age Matched Z-Score 3.1. LT FEMUR, TOTAL BMD 0.798 g/cm2 Young Adult T-Score -1.7 Age Matched Z-Score -0.6. LT NECK BMD 0.805 g/cm2 Young Adult T-Score -1.7 Age Matched Z-Score -0.3. RT FEMUR, TOTAL BMD 0.868 g/cm2 Young Adult T-Score -1.1 Age Matched Z-Score 0.0. RT NECK BMD 0.812 g/cm2 Young Adult T-Score -1.6 Age Matched Z-Score -0.2. IMPRESSION: There is normal densitometry of the spine. There is low bone density of the left hip. There is low bone density of the right hip. The density of the spine has increased 15.6% since the initial exam on December 15, 2000. The density of the spine decrease 0.9% since most recent exam on March 07, 2013. The density of the left hip has a decreased 18.5% since initial exam on December 15, 2000. The density of the left hip has decreased 24.9% since most recent exam on March 07, 2013. The density of the right hip has decreased 5.8% since the initial exam on December 15, 2000. The density of the right hip has decreased 16.9% since the most recent exam on March 07, 2013. FOLLOW-UP: Recommendation for the next bone density exam: 2 years. <Electronically signed by Pedro Mercer > 10/05/20 [id number]
== END ==
LOC: M WHC 13:05
PROVIDERS: ATTEND Internal Medicine
DX: Z94.81 Bone marrow transplant status (principal); Z79.52 Long term (current) use of systemic steroids; M85.851 Other specified disorders of bone density and structure, right thigh; M85.852 Other specified disorders of bone density and structure, left thigh

== ENCOUNTER → 2020-11-03 | Outpatient (REF) | payer MEDICARE, OTHER ==
[2020-11-03 11:03] LABS: BASO % 0.3 % (0.0-1.0); EOS # 0.1 10^3/uL (0.0-0.5); EOS % 1.5 % (0.0-3.0); HEMATOCRIT 38.1 % (36.0-47.0); HEMOGLOBIN 12.5 g/dl (12.0-15.5); LYMPH # 1.4 10^3/uL (1.5-5.0); LYMPH % 23.1 % (24.0-44.0); MEAN CORPUSCULAR HEMOGLOBIN 32.4 pg (27.0-33.0); MEAN CORPUSCULAR HGB CONC 32.8 g/dl (32.0-36.5); MEAN CORPUSCULAR VOLUME 98.7 fl (80.0-96.0); MONO # 0.7 10^3/uL (0.0-0.8); MONO % 10.8 % (0.0-5.0); PLATELET COUNT, AUTOMATED 152 10^3/uL (150-450); RED BLOOD COUNT 3.86 10^6/uL (4.00-5.40); WHITE BLOOD COUNT 6.2 10^3/uL (4.0-10.0)
[2020-11-03 11:29] LABS: ALBUMIN 3.3 GM/DL (3.2-5.2); BILIRUBIN,TOTAL 0.3 MG/DL (0.2-1.0); CALCIUM LEVEL 9.2 MG/DL (8.8-10.2); CREATININE FOR GFR 1.32 MG/DL (0.55-1.30); GLOMERULAR FILTRATION RATE 43.3 (>45); POTASSIUM SERUM 4.2 MEQ/L (3.5-5.1); TOTAL PROTEIN 6.2 GM/DL (6.4-8.2)
== END ==
LOC: M LAB REF 10:22
PROVIDERS: ATTEND Internal Medicine
DX: Z94.81 Bone marrow transplant status (principal); D75.81 Myelofibrosis

== ENCOUNTER → 2020-11-17 | Outpatient (REF) | payer MEDICARE, OTHER ==
[2020-11-17 13:19] LABS: BASO % 0.5 % (0.0-1.0); EOS # 0.1 10^3/uL (0.0-0.5); EOS % 1.3 % (0.0-3.0); HEMATOCRIT 36.7 % (36.0-47.0); HEMOGLOBIN 12.3 g/dl (12.0-15.5); LYMPH % 33.1 % (24.0-44.0); MEAN CORPUSCULAR HEMOGLOBIN 33.3 pg (27.0-33.0); MEAN CORPUSCULAR HGB CONC 33.5 g/dl (32.0-36.5); MEAN CORPUSCULAR VOLUME 99.5 fl (80.0-96.0); MONO # 0.6 10^3/uL (0.0-0.8); MONO % 10.5 % (0.0-5.0); NEUTROPHILS # 3.3 10^3/uL (1.5-8.5); NEUTROPHILS % 54.4 % (36.0-66.0); PLATELET COUNT, AUTOMATED 153 10^3/uL (150-450); RED BLOOD COUNT 3.69 10^6/uL (4.00-5.40)
[2020-11-17 15:05] LABS: ALBUMIN 3.5 GM/DL (3.2-5.2); BILIRUBIN,TOTAL 0.3 MG/DL (0.2-1.0); CALCIUM LEVEL 9.8 MG/DL (8.8-10.2); CREATININE FOR GFR 1.82 MG/DL (0.55-1.30); GLOMERULAR FILTRATION RATE 29.9 (>45); MAGNESIUM LEVEL 2.3 MG/DL (1.8-2.4); POTASSIUM SERUM 3.9 MEQ/L (3.5-5.1); TOTAL PROTEIN 6.2 GM/DL (6.4-8.2)
== END ==
LOC: M LAB REF 12:49
PROVIDERS: ATTEND Nurse Practitioner
DX: Z94.81 Bone marrow transplant status (principal); D75.81 Myelofibrosis

== ENCOUNTER → 2020-11-30 | Outpatient (REF) | payer MEDICARE, OTHER ==
[~2020-11-30] MED LIST changes: -CLIN150C14 PO; +CLIN150C15 PO; +GABA-282 PO; -GABA-843 PO; +ISOS1TAB36 PO; -ISOS60TA2 PO; -LISI-542 PO; +LISI-898 PO; +LISI10TA22 PO; -LISI10TA4 PO; +MONT10TA10 PO; -MONT5TAB2 PO
[2020-11-30 10:43] LABS: BASO % 0.6 % (0.0-1.0); EOS # 0.2 10^3/uL (0.0-0.5); EOS % 3.4 % (0.0-3.0); HEMATOCRIT 34.3 % (36.0-47.0); HEMOGLOBIN 11.5 g/dl (12.0-15.5); LYMPH # 1.3 10^3/uL (1.5-5.0); LYMPH % 26.7 % (24.0-44.0); MEAN CORPUSCULAR HEMOGLOBIN 33.4 pg (27.0-33.0); MEAN CORPUSCULAR HGB CONC 33.5 g/dl (32.0-36.5); MEAN CORPUSCULAR VOLUME 99.7 fl (80.0-96.0); MONO # 0.6 10^3/uL (0.0-0.8); MONO % 11.6 % (0.0-5.0); NEUTROPHILS # 2.9 10^3/uL (1.5-8.5); NEUTROPHILS % 57.3 % (36.0-66.0); PLATELET COUNT, AUTOMATED 145 10^3/uL (150-450); RED BLOOD COUNT 3.44 10^6/uL (4.00-5.40)
[2020-11-30 11:23] LABS: ALBUMIN 3.3 GM/DL (3.2-5.2); BILIRUBIN,TOTAL 0.2 MG/DL (0.2-1.0); CALCIUM LEVEL 9.1 MG/DL (8.8-10.2); CREATININE FOR GFR 1.42 MG/DL (0.55-1.30); GLOMERULAR FILTRATION RATE 39.8 (>45); MAGNESIUM LEVEL 1.9 MG/DL (1.8-2.4); POTASSIUM SERUM 4.2 MEQ/L (3.5-5.1); TOTAL PROTEIN 5.8 GM/DL (6.4-8.2)
== END ==
LOC: M LAB REF 10:23
PROVIDERS: ATTEND Nurse Practitioner
DX: Z94.81 Bone marrow transplant status (principal)

== ENCOUNTER → 2020-12-14 | Outpatient (REF) | payer MEDICARE, OTHER ==
[2020-12-14 11:33] LABS: BASO % 0.6 % (0.0-1.0); EOS # 0.2 10^3/uL (0.0-0.5); EOS % 2.9 % (0.0-3.0); HEMATOCRIT 35.7 % (36.0-47.0); HEMOGLOBIN 11.5 g/dl (12.0-15.5); LYMPH # 1.3 10^3/uL (1.5-5.0); LYMPH % 25.7 % (24.0-44.0); MEAN CORPUSCULAR HEMOGLOBIN 32.8 pg (27.0-33.0); MEAN CORPUSCULAR HGB CONC 32.2 g/dl (32.0-36.5); MEAN CORPUSCULAR VOLUME 101.7 fl (80.0-96.0); MONO # 0.6 10^3/uL (0.0-0.8); MONO % 12.4 % (0.0-5.0); NEUTROPHILS % 58.2 % (36.0-66.0); PLATELET COUNT, AUTOMATED 151 10^3/uL (150-450); RED BLOOD COUNT 3.51 10^6/uL (4.00-5.40); WHITE BLOOD COUNT 5.2 10^3/uL (4.0-10.0)
[2020-12-14 12:19] LABS: CREATININE FOR GFR 1.62 MG/DL (0.55-1.30); GLOMERULAR FILTRATION RATE 34.2 (>45)
[2020-12-14 12:20] LABS: ALBUMIN 3.5 GM/DL (3.2-5.2); BILIRUBIN,TOTAL 0.5 MG/DL (0.2-1.0); CALCIUM LEVEL 9.6 MG/DL (8.8-10.2); MAGNESIUM LEVEL 2.1 MG/DL (1.8-2.4); TOTAL PROTEIN 6.3 GM/DL (6.4-8.2)
== END ==
LOC: M LAB REF 10:18
PROVIDERS: ATTEND Nurse Practitioner
DX: Z94.81 Bone marrow transplant status (principal); D75.81 Myelofibrosis; D47.1 Chronic myeloproliferative disease; T86.5 Complications of stem cell transplant

== ENCOUNTER → 2020-12-28 | Outpatient (REF) | payer MEDICARE, OTHER ==
[2020-12-28 11:21] LABS: BASO % 0.4 % (0.0-1.0); EOS # 0.1 10^3/uL (0.0-0.5); HEMATOCRIT 36.4 % (36.0-47.0); LYMPH # 1.3 10^3/uL (1.5-5.0); MEAN CORPUSCULAR HEMOGLOBIN 33.5 pg (27.0-33.0); MEAN CORPUSCULAR VOLUME 101.7 fl (80.0-96.0); MONO # 0.5 10^3/uL (0.0-0.8); MONO % 6.3 % (2.0-8.0); NEUTROPHILS # 5.4 10^3/uL (1.5-8.5); NEUTROPHILS % 73.9 % (36.0-66.0); PLATELET COUNT, AUTOMATED 140 10^3/uL (150-450); RED BLOOD COUNT 3.58 10^6/uL (4.00-5.40); WHITE BLOOD COUNT 7.3 10^3/uL (4.0-10.0)
[2020-12-28 12:06] LABS: ALBUMIN 3.4 GM/DL (3.2-5.2); BILIRUBIN,TOTAL 0.2 MG/DL (0.2-1.0); CALCIUM LEVEL 9.2 MG/DL (8.8-10.2); CREATININE FOR GFR 1.54 MG/DL (0.55-1.30); GLOMERULAR FILTRATION RATE 36.2 (>45); MAGNESIUM LEVEL 2.2 MG/DL (1.8-2.4); POTASSIUM SERUM 4.3 MEQ/L (3.5-5.1); TOTAL PROTEIN 5.9 GM/DL (6.4-8.2)
== END ==
LOC: M LAB REF 10:47
PROVIDERS: ATTEND Nurse Practitioner
DX: Z94.81 Bone marrow transplant status (principal); D47.1 Chronic myeloproliferative disease

== ENCOUNTER → 2021-01-11 | Outpatient (REF) | payer MEDICARE, OTHER ==
[2021-01-11 12:36] LABS: ALBUMIN 3.3 GM/DL (3.2-5.2); CALCIUM LEVEL 9.9 MG/DL (8.8-10.2); CREATININE FOR GFR 1.35 MG/DL (0.55-1.30); FREE T4 1.2 NG/DL (0.76-1.46); GLOMERULAR FILTRATION RATE 42.2 (>45); PHOSPHORUS LEVEL 3.1 MG/DL (2.5-4.9); THYROID STIMULATING HORMONE 1.91 uIU/ML (0.358-3.740)
[2021-01-11 12:37] LABS: PTH INTACT 81.6 PG/ML (18.5-88.0); TOTAL 25(OH) VITAMIN D 27.3 NG/ML (30.0-100.0)
[2021-01-11 12:49] LABS: HEMOGLOBIN A1c 6.7 %
== END ==
LOC: M LAB REF 11:44
PROVIDERS: ATTEND Internal Medicine
DX: E11.9 Type 2 diabetes mellitus without complications (principal); M85.80 Other specified disorders of bone density and structure, unspecified site; E66.9 Obesity, unspecified

== ENCOUNTER → 2021-01-11 | Outpatient (REF) | payer MEDICARE, OTHER ==
[2021-01-11 11:53] LABS: BASO % 0.6 % (0.0-1.0); EOS # 0.1 10^3/uL (0.0-0.5); EOS % 1.5 % (0.0-3.0); HEMOGLOBIN 12.5 g/dl (12.0-15.5); LYMPH % 29.1 % (24.0-44.0); MEAN CORPUSCULAR HEMOGLOBIN 33.1 pg (27.0-33.0); MEAN CORPUSCULAR HGB CONC 32.9 g/dl (32.0-36.5); MEAN CORPUSCULAR VOLUME 100.5 fl (80.0-96.0); MONO # 0.6 10^3/uL (0.0-0.8); NEUTROPHILS # 4.1 10^3/uL (1.5-8.5); NEUTROPHILS % 59.4 % (36.0-66.0); PLATELET COUNT, AUTOMATED 150 10^3/uL (150-450); RED BLOOD COUNT 3.78 10^6/uL (4.00-5.40); WHITE BLOOD COUNT 6.8 10^3/uL (4.0-10.0)
[2021-01-11 13:24] LABS: ALBUMIN 3.5 GM/DL (3.2-5.2); BILIRUBIN,TOTAL 0.4 MG/DL (0.2-1.0); CALCIUM LEVEL 10.2 MG/DL (8.8-10.2); CREATININE FOR GFR 1.46 MG/DL (0.55-1.30); GLOMERULAR FILTRATION RATE 38.5 (>45); MAGNESIUM LEVEL 2.4 MG/DL (1.8-2.4); POTASSIUM SERUM 4.7 MEQ/L (3.5-5.1); TOTAL PROTEIN 6.1 GM/DL (6.4-8.2)
== END ==
LOC: M LAB REF 11:31
PROVIDERS: ATTEND Internal Medicine
DX: D47.1 Chronic myeloproliferative disease (principal)

== ENCOUNTER 2021-01-26 18:46 | Emergency (ER) | payer MEDICARE, OTHER ==
[~2021-01-26] VITALS: Ht 165.1 cm; Wt 99.5 kg
[2021-01-26] MEDS ORDERED: LABETALOL 100MG/20ML VIAL IV STA (19:42)
[2021-01-26 20:06] LABS: INR 1.05
[2021-01-26 20:23] LABS: ALBUMIN 3.3 GM/DL (3.2-5.2); ALT/SGPT 49 U/L (12-78); BILIRUBIN,DIRECT < 0.1 MG/DL (0.0-0.2); BILIRUBIN,TOTAL 0.3 MG/DL (0.2-1.0); CK-MB VALUE MASS 1.3 NG/ML (<3.6); CPK CREATINE PHOSPHOKINASE 69 U/L (26-192); LIPASE 86 U/L (73-393); MB/CK RELATIVE INDEX 1.88 (< OR =4); TOTAL PROTEIN 6.2 GM/DL (6.4-8.2); TROPONIN I < 0.02 NG/ML (< 0.10)
[2021-01-26 21:03] LABS: BASO % 0.2 % (0.0-1.0); EOS # 0.1 10^3/uL (0.0-0.5); EOS % 0.7 % (0.0-3.0); HEMATOCRIT 37.8 % (36.0-47.0); HEMOGLOBIN 12.6 g/dl (12.0-15.5); LYMPH % 23.8 % (24.0-44.0); MEAN CORPUSCULAR HGB CONC 33.3 g/dl (32.0-36.5); MEAN CORPUSCULAR VOLUME 101.9 fl (80.0-96.0); MONO # 0.7 10^3/uL (0.0-0.8); MONO % 8.5 % (2.0-8.0); NEUTROPHILS # 5.5 10^3/uL (1.5-8.5); NEUTROPHILS % 66.3 % (36.0-66.0); PLATELET COUNT, AUTOMATED 154 10^3/uL (150-450); RED BLOOD COUNT 3.71 10^6/uL (4.00-5.40); WHITE BLOOD COUNT 8.4 10^3/uL (4.0-10.0)
[2021-01-26 21:08] LABS: BLOOD UREA NITROGEN 49 MG/DL (7-18); CALCIUM LEVEL 9.2 MG/DL (8.8-10.2); CARBON DIOXIDE LEVEL 25 MEQ/L (21-32); CHLORIDE LEVEL 104 MEQ/L (98-107); CREATININE FOR GFR 1.57 MG/DL (0.55-1.30); GLOMERULAR FILTRATION RATE 35.4 (>45); GLUCOSE, FASTING 279 MG/DL (70-100); POTASSIUM SERUM 4.4 MEQ/L (3.5-5.1); SODIUM LEVEL 140 MEQ/L (136-145)
--- NOTE | 2021-01-26 21:09 | REPVR ---
PROCEDURE INFORMATION: Exam: XR Chest Exam date and time: 01/26/2021 7:49 PM Age: 65 years old Clinical indication: Chest pain TECHNIQUE: Imaging protocol: XR of the chest Views: 1 view. COMPARISON: CT Chest without contrast 08/10/2020 1:38 PM FINDINGS: Lungs: Unremarkable. No consolidation. Pleural spaces: Unremarkable. No pleural effusion. No pneumothorax. Heart/Mediastinum: Unremarkable. No cardiomegaly. Bones/joints: Unremarkable. IMPRESSION: No acute findings. Electronically signed by: Rome Hays On 01/26/2021 21:09:57 PM
[2021-01-26] MEDS ORDERED: PROMETHAZINE INJ 25 MG/ML VIAL (J2550) IV ONE (22:35)
--- NOTE | 2021-01-26 23:12 | REPVR ---
PROCEDURE INFORMATION: Exam: CT Head Without Contrast Exam date and time: 01/26/2021 11:01 PM Age: 65 years old Clinical indication: Pain; Headache; Additional info: Headache, HTN TECHNIQUE: Imaging protocol: Computed tomography of the head without contrast. Radiation optimization: All CT scans at this facility use at least one of these dose optimization techniques: automated exposure control; mA and/or kV adjustment per patient size (includes targeted exams where dose is matched to clinical indication); or iterative reconstruction. COMPARISON: CT Head without contrast 08/19/2019 12:04 PM FINDINGS: Brain: Normal. No hemorrhage. Unremarkable white matter. No mass effect. Cerebral ventricles: No ventriculomegaly. Bones/joints: Unremarkable. No acute fracture. Paranasal sinuses: Visualized sinuses are unremarkable. No fluid levels. Mastoid air cells: Visualized mastoid air cells are well aerated. Soft tissues: Unremarkable. IMPRESSION: No acute intracranial abnormality. Electronically signed by: Rome Hays On 01/26/2021 23:12:10 PM
[2021-01-26] MEDS ORDERED: LABETALOL 100MG TAB PO ONE (23:30)
[2021-01-27] MEDS ORDERED: LABE100T5 PO (00:14)
[2021-01-27 00:45] VITALS: BP 140/60
--- NOTE | 2021-01-27 08:01 | ECGEPIP ---
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
== END 2021-01-27 00:55 | disposition home or self-care (01) ==
LOC: M ED 18:46
DX: I16.0 Hypertensive urgency (principal); N18.9 Chronic kidney disease, unspecified; M79.7 Fibromyalgia; M32.9 Systemic lupus erythematosus, unspecified; Z79.899 Other long term (current) drug therapy; Z79.82 Long term (current) use of aspirin; Z79.4 Long term (current) use of insulin; Z88.0 Allergy status to penicillin; Z88.1 Allergy status to other antibiotic agents; Z88.8 Allergy status to other drugs, medicaments and biological substances; Z91.018 Allergy to other foods; Z91.041 Radiographic dye allergy status; Z91.048 Other nonmedicinal substance allergy status

== ENCOUNTER 2021-01-30 13:13 | Emergency (ER) | payer MEDICARE, OTHER ==
[~2021-01-30] VITALS: Ht 165.1 cm; Wt 100.5 kg
[~2021-01-30 13:13] MED LIST changes: +LABE100T5 PO
[2021-01-30] MEDS ORDERED: LABETALOL 100MG/20ML VIAL IV STA ×2 (13:49→14:54)
[2021-01-30] MEDS ORDERED: LORazepam 2 MG/ML VIAL IV STA (13:49)
[2021-01-30 13:53] LABS: BASO % 0.5 % (0.0-1.0); EOS % 0.5 % (0.0-3.0); HEMATOCRIT 36.2 % (36.0-47.0); HEMOGLOBIN 12.2 g/dl (12.0-15.5); LYMPH # 1.1 10^3/uL (1.5-5.0); LYMPH % 17.6 % (24.0-44.0); MEAN CORPUSCULAR HEMOGLOBIN 34.1 pg (27.0-33.0); MEAN CORPUSCULAR HGB CONC 33.7 g/dl (32.0-36.5); MEAN CORPUSCULAR VOLUME 101.1 fl (80.0-96.0); MONO # 0.3 10^3/uL (0.0-0.8); MONO % 5.1 % (2.0-8.0); NEUTROPHILS # 4.8 10^3/uL (1.5-8.5); NEUTROPHILS % 74.1 % (36.0-66.0); PLATELET COUNT, AUTOMATED 133 10^3/uL (150-450); RED BLOOD COUNT 3.58 10^6/uL (4.00-5.40); WHITE BLOOD COUNT 6.4 10^3/uL (4.0-10.0)
[2021-01-30 14:05] LABS: INR 1.08; PROTHROMBIN TIME 14.2 SECONDS (12.5-14.3)
--- NOTE | 2021-01-30 14:06 | REP ---
INDICATION: CHEST PAIN. COMPARISON: Comparison portable chest x-ray January 26, 2021. TECHNIQUE: Portable upright AP chest radiograph. FINDINGS: There is a right-sided central venous line again noted in place with its tip in the expected location of superior vena cava. Monitoring electrodes are seen. The lungs are symmetrically aerated and free of focal infiltrate. Heart size is borderline unchanged. Pulmonary vasculature is not increased. The pleural angles are sharp. No acute bony abnormality is seen.. IMPRESSION: No active disease. <Electronically signed by Pedro Mercer > 01/30/21 [id number]
[2021-01-30] MEDS ORDERED: CLOT1CRE56 TOP (14:08)
[2021-01-30] MEDS ORDERED: DILT240C28 PO (14:08)
[2021-01-30] MEDS ORDERED: REPA1TAB6 PO (14:08)
[2021-01-30] MEDS ORDERED: SERT-141 PO (14:08)
[2021-01-30] MEDS ORDERED: TACR1CAP3 PO (14:08)
[2021-01-30] MEDS ORDERED: K-TA10TA2 PO (14:08)
[2021-01-30] MEDS ORDERED: ACUL0.5S OU (14:08)
[2021-01-30] MEDS ORDERED: LANTINJ4 SC (14:08)
[2021-01-30] MEDS ORDERED: TACR0.5C3 PO (14:08)
[2021-01-30] MEDS ORDERED: HYDR1CRE9 EX (14:08)
[2021-01-30] MEDS ORDERED: DURE0.055 OU (14:08)
[2021-01-30] MEDS ORDERED: POLYSOL OD (14:08)
[2021-01-30] MEDS ORDERED: MIRA0.12 PO (14:08)
[2021-01-30] MEDS ORDERED: PRED5TA PO (14:08)
[2021-01-30] MEDS ORDERED: CHLO125TA PO (14:08)
[2021-01-30] MEDS ORDERED: SYMB16INH PO (14:08)
[2021-01-30] MEDS ORDERED: TRAM37.53 PO (14:08)
[2021-01-30 14:16] LABS: ALBUMIN 3.4 GM/DL (3.2-5.2); ALT/SGPT 52 U/L (12-78); BILIRUBIN,DIRECT 0.1 MG/DL (0.0-0.2); BILIRUBIN,TOTAL 0.3 MG/DL (0.2-1.0); CPK CREATINE PHOSPHOKINASE 52 U/L (26-192); LIPASE 73 U/L (73-393); MB/CK RELATIVE INDEX 1.92 (< OR =4); TOTAL PROTEIN 6.1 GM/DL (6.4-8.2); TROPONIN I < 0.02 NG/ML (< 0.10)
[2021-01-30] MEDS ORDERED: NORV5TAB PO (14:17)
[2021-01-30 15:28] VITALS: BP 173/79
[2021-01-30 15:47] VITALS: BP 172/75
--- NOTE | 2021-01-31 07:37 | ECGEPIP ---
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
== END 2021-01-30 16:01 | disposition home or self-care (01) ==
LOC: M ED 13:13
DX: I10 Essential (primary) hypertension (principal); N28.9 Disorder of kidney and ureter, unspecified; Z79.899 Other long term (current) drug therapy; Z79.82 Long term (current) use of aspirin; Z79.4 Long term (current) use of insulin; Z88.0 Allergy status to penicillin; Z88.1 Allergy status to other antibiotic agents; Z88.8 Allergy status to other drugs, medicaments and biological substances; Z91.018 Allergy to other foods; Z91.041 Radiographic dye allergy status; Z91.048 Other nonmedicinal substance allergy status
CPT/HCPCS: 36415; 71045; 80047; 80076; 82550; 82553; 83690; 84484; 85025; 85610; 93005; 93041; 94760; 96374; 96375; 96376; 99285; J2060

== ENCOUNTER → 2021-02-18 | Outpatient (CLI) | payer MEDICARE, OTHER ==
[~2021-02-18] MED LIST changes: +ACUL0.5S OU; +ACYC1TAB PO; -ACYC400T PO; +BACTDSTA; +CHLO125TA PO; +CLOT1CRE56 TOP; +DILT240C28 PO; +DURE0.055 OU; +HYDR1CRE9 EX; +K-TA10TA2 PO; +LANTINJ4 SC; +NORV5TAB PO; +POLYSOL OD; +REPA1TAB6 PO; +SERT-141 PO; -SULF1TAB93; +SYMB16INH PO; +TACR1CAP3 PO
[2021-02-18 16:32] LABS: ALBUMIN 3.7 GM/DL (3.2-5.2); BILIRUBIN,TOTAL 0.4 MG/DL (0.2-1.0); CALCIUM LEVEL 10.5 MG/DL (8.8-10.2); CREATININE FOR GFR 1.66 MG/DL (0.55-1.30); GLOMERULAR FILTRATION RATE 33.2 (>45); POTASSIUM SERUM 4.1 MEQ/L (3.5-5.1); TOTAL PROTEIN 6.6 GM/DL (6.4-8.2)
== END ==
LOC: M LAB 12:54
PROVIDERS: ATTEND Family Medicine
DX: E83.52 Hypercalcemia (principal); I10 Essential (primary) hypertension
CPT/HCPCS: 36415; 80053; 82330; G0463

== ENCOUNTER → 2021-02-22 | Outpatient (REF) | payer MEDICARE, OTHER ==
[~2021-02-22] MED LIST changes: -BACTDSTA; +SULF1TAB93
[2021-02-22 11:17] LABS: BASO % 0.3 % (0.0-1.0); EOS # 0.1 10^3/uL (0.0-0.5); EOS % 1.2 % (0.0-3.0); HEMATOCRIT 35.6 % (36.0-47.0); HEMOGLOBIN 12.4 g/dl (12.0-15.5); LYMPH # 1.2 10^3/uL (1.5-5.0); LYMPH % 18.6 % (24.0-44.0); MEAN CORPUSCULAR HEMOGLOBIN 35.2 pg (27.0-33.0); MEAN CORPUSCULAR HGB CONC 34.8 g/dl (32.0-36.5); MEAN CORPUSCULAR VOLUME 101.1 fl (80.0-96.0); MONO # 0.6 10^3/uL (0.0-0.8); MONO % 8.9 % (2.0-8.0); NEUTROPHILS # 4.6 10^3/uL (1.5-8.5); NEUTROPHILS % 70.1 % (36.0-66.0); PLATELET COUNT, AUTOMATED 140 10^3/uL (150-450); RED BLOOD COUNT 3.52 10^6/uL (4.00-5.40); WHITE BLOOD COUNT 6.6 10^3/uL (4.0-10.0)
[2021-02-22 14:05] LABS: ALBUMIN 3.6 GM/DL (3.2-5.2); BILIRUBIN,TOTAL 0.5 MG/DL (0.2-1.0); CALCIUM LEVEL 10.3 MG/DL (8.8-10.2); CREATININE FOR GFR 1.31 MG/DL (0.55-1.30); GLOMERULAR FILTRATION RATE 43.7 (>45); MAGNESIUM LEVEL 2.2 MG/DL (1.8-2.4); TOTAL PROTEIN 6.3 GM/DL (6.4-8.2)
== END ==
LOC: M LAB REF 10:55
PROVIDERS: ATTEND Nurse Practitioner
DX: D47.1 Chronic myeloproliferative disease (principal); Z94.81 Bone marrow transplant status

== ENCOUNTER → 2021-03-01 | Outpatient (REF) | payer MEDICARE, OTHER ==
[2021-03-01 17:57] LABS: APPEARANCE, URINE HAZY (CLEAR); BACTERIA, URINE AUTO NEGATIVE (NEGATIVE); BILIRUBIN, URINE AUTO NEGATIVE (NEGATIVE); BLOOD, URINE BLOOD NEGATIVE (NEGATIVE); COLOR, URINE YELLOW (YELLOW); GLUCOSE, URINE (UA) AUTO 1+ mg/dL (NEGATIVE); KETONE, URINE AUTO NEGATIVE (NEGATIVE); LEUKOCYTE ESTERASE, URINE AUTO TRACE (NEGATIVE); MUCUS, URINE SMALL (NEGATIVE); NITRITE, URINE AUTO NEGATIVE (NEGATIVE); PROTEIN, URINE AUTO 1+ mg/dL (NEGATIVE); RBC, URINE AUTO 1 /HPF (0-3); SPECIFIC GRAVITY URINE AUTO 1.017 (1.002-1.035); SQUAMOUS EPITHELIAL CELL UR AU 1 /HPF (0-6); UROBILINOGEN, URINE AUTO 0.2 mg/dL (0.0-2.0); WBC, URINE AUTO 15 /HPF (0-3)
== END ==
LOC: M LAB REF 16:01
PROVIDERS: ATTEND Family Medicine
DX: R82.998 Other abnormal findings in urine (principal)

== ENCOUNTER → 2021-03-09 | Outpatient (REF) | payer MEDICARE, OTHER ==
[2021-03-09 11:01] LABS: BASO % 0.3 % (0.0-1.0); EOS # 0.1 10^3/uL (0.0-0.5); EOS % 1.3 % (0.0-3.0); HEMATOCRIT 35.6 % (36.0-47.0); HEMOGLOBIN 12.1 g/dl (12.0-15.5); LYMPH # 1.5 10^3/uL (1.5-5.0); LYMPH % 23.3 % (24.0-44.0); MEAN CORPUSCULAR HEMOGLOBIN 34.2 pg (27.0-33.0); MEAN CORPUSCULAR VOLUME 100.6 fl (80.0-96.0); MONO # 0.6 10^3/uL (0.0-0.8); MONO % 9.7 % (2.0-8.0); NEUTROPHILS # 4.1 10^3/uL (1.5-8.5); NEUTROPHILS % 64.6 % (36.0-66.0); PLATELET COUNT, AUTOMATED 149 10^3/uL (150-450); RED BLOOD COUNT 3.54 10^6/uL (4.00-5.40); WHITE BLOOD COUNT 6.3 10^3/uL (4.0-10.0)
[2021-03-09 11:28] LABS: ALBUMIN 3.3 GM/DL (3.2-5.2); BILIRUBIN,TOTAL 0.3 MG/DL (0.2-1.0); CALCIUM LEVEL 10.1 MG/DL (8.8-10.2); CREATININE FOR GFR 1.66 MG/DL (0.55-1.30); GLOMERULAR FILTRATION RATE 33.2 (>45); POTASSIUM SERUM 3.9 MEQ/L (3.5-5.1); TOTAL PROTEIN 6.3 GM/DL (6.4-8.2)
== END ==
LOC: M LAB REF 10:26
PROVIDERS: ATTEND Nurse Practitioner
DX: Z94.81 Bone marrow transplant status (principal); D47.1 Chronic myeloproliferative disease

== ENCOUNTER → 2021-03-10 | Outpatient (CLI) | payer MEDICARE, OTHER | LOC: M LAB 08:06 | PROVIDERS: ATTEND Nurse Practitioner Family | DX: E27.40 Unspecified adrenocortical insufficiency (principal) ==

== ENCOUNTER 2021-03-14 15:15 | Emergency (ER) | payer MEDICARE, OTHER ==
[~2021-03-14] VITALS: Ht 165.1 cm; Wt 102.5 kg
[~2021-03-14 15:15] MED LIST changes: +BACTDSTA; -SULF1TAB93
[2021-03-14] MEDS ORDERED: NS 1,000 ML IV ONE (16:10)
[2021-03-14] MEDS ORDERED: HumuLIN R (REGULAR) INSULIN (NovoLIN R) **100U/ML** PER UNIT IV ONE (16:10)
[2021-03-14] MEDS ORDERED: PROMETHAZINE INJ 25 MG/ML VIAL (J2550) IV ONE (16:10)
[2021-03-14] MEDS ORDERED: ACETAMINOPHEN 500 MG TAB PO ONE (16:10)
[2021-03-14 16:39] LABS: BASO % 0.2 % (0.0-1.0); EOS % 0.3 % (0.0-3.0); HEMATOCRIT 36.6 % (36.0-47.0); HEMOGLOBIN 12.6 g/dl (12.0-15.5); LYMPH # 0.9 10^3/uL (1.5-5.0); LYMPH % 15.1 % (24.0-44.0); MEAN CORPUSCULAR HEMOGLOBIN 34.4 pg (27.0-33.0); MEAN CORPUSCULAR HGB CONC 34.4 g/dl (32.0-36.5); MONO # 0.5 10^3/uL (0.0-0.8); MONO % 7.6 % (2.0-8.0); NEUTROPHILS # 4.7 10^3/uL (1.5-8.5); NEUTROPHILS % 76.2 % (36.0-66.0); PLATELET COUNT, AUTOMATED 145 10^3/uL (150-450); RED BLOOD COUNT 3.66 10^6/uL (4.00-5.40); WHITE BLOOD COUNT 6.2 10^3/uL (4.0-10.0)
[2021-03-14 16:54] LABS: HEMOGLOBIN A1c 8.3 %
[2021-03-14 17:06] LABS: OSMOLALITY SERUM 313 MOSM/KG (280-301)
--- NOTE | 2021-03-14 17:06 | REP ---
INDICATION: chest pain. COMPARISON: 01/30/2021 TECHNIQUE: PA and lateral views FINDINGS: There is cardiomegaly status grow. The tip of the MediPort device is unchanged remaining in the superior vena cava. Lung gerardo are unchanged. No acute patchy parenchymal opacities or pleural effusions have developed. The osseous structures are stable. IMPRESSION: Cardiomegaly without evidence of acute cardiopulmonary disease. <Electronically signed by Luther Tsai > 03/14/21 0313
[2021-03-14 17:11] LABS: ACETONE/KETONE 1.15 MG/DL (<2.81); ALBUMIN 3.5 GM/DL (3.2-5.2); ALT/SGPT 51 U/L (12-78); BILIRUBIN,DIRECT 0.1 MG/DL (0.0-0.2); BILIRUBIN,TOTAL 0.4 MG/DL (0.2-1.0); CK-MB VALUE MASS < 1.0 NG/ML (<3.6); CPK CREATINE PHOSPHOKINASE 50 U/L (26-192); LIPASE 74 U/L (73-393); TOTAL PROTEIN 6.4 GM/DL (6.4-8.2); TROPONIN I < 0.02 NG/ML (< 0.10)
[2021-03-14] MEDS ORDERED: NORCO, ANEXSIA 5/325MG TABLET (HYDROcodone/ACETAMINOPHEN) PO ONE (17:45)
--- NOTE | 2021-03-14 19:16 | REPVR ---
PROCEDURE INFORMATION: Exam: CT Abdomen And Pelvis Without Contrast Exam date and time: 03/14/2021 5:56 PM Age: 65 years old Clinical indication: Right sided abdominal pain and elevated glucose. TECHNIQUE: Imaging protocol: Computed tomography of the abdomen and pelvis without contrast. Radiation optimization: All CT scans at this facility use at least one of these dose optimization techniques: automated exposure control; mA and/or kV adjustment per patient size (includes targeted exams where dose is matched to clinical indication); or iterative reconstruction. COMPARISON: CR HIP COMPLETE (AP/LAT) 12/14/2018 9:48 AM FINDINGS: Tubes, catheters and devices: There is a central line partially imaged terminating in the junction of the superior vena cava and right atrium. Lungs: There is mild atelectasis in the inferior lingula, medial segment of the right middle lobe, and posterior segment of the left lower lobe. Heart: No cardiomegaly or pericardial effusion. Mitral annular calcifications are present. The heart was not fully imaged. Liver: Unremarkable. No liver lesion is identified. The contour of the liver is smooth. No hepatomegaly is noted. Gallbladder and bile ducts: No calcified gallstones are noted. No gallbladder wall thickening, pericholecystic fluid, or pericholecystic inflammatory changes are identified. No dilation of the bile ducts is noted. No calcified stones are seen in the common bile duct. Pancreas: The pancreas is atrophic and otherwise unremarkable. No dilation of the main pancreatic duct is noted. Spleen: Unremarkable. No splenomegaly is noted. Adrenal glands: The adrenal glands are small. No adrenal nodule is noted. Kidneys and ureters: There is a 17 mm benign-appearing exophytic simple cyst arising from the lateral cortex of the interpolar region of the right kidney, for which follow-up is not necessary. There are cortical calcifications in the left kidney. Bilateral nonobstructive nephrolithiasis is present. No calculi are noted in the ureters. No hydronephrosis or hydroureter is present. Stomach and bowel: The stomach and small bowel are unremarkable. There is mild colonic diverticulosis without evidence for diverticulitis. There is no evidence for a bowel obstruction, colitis, pneumatosis intestinalis, intussusception, volvulus, or perforated viscus. There is a moderate amount of formed stool in the colon. Appendix: The appendix is not identified and may have been removed. No dilated blind ending tubular structure, inflammatory fat stranding, or fluid is noted in the expected location of the appendix. Intraperitoneal space: No free air. No ascites. No abscess. Retroperitoneal space: No fluid collection. No mass. Vasculature: The abdominal aorta is normal in caliber. There are moderate to severe atherosclerotic calcifications. Incidental note is made of small round calcifications in the pelvis, which are compatible with phleboliths. Lymph nodes: No enlarged lymph nodes. Urinary bladder: The partially distended urinary bladder is unremarkable. No stones or masses are seen in the bladder. Reproductive: There has been a hysterectomy. The ovaries are not identified and may have been removed. No adnexal mass is noted. Bones/joints: There is no fracture or dislocation. There are degenerative changes involving the lower thoracic spine and lumbar spine. There is mild osteoarthritis of both hip joints. There is calcification of the right gluteus minimus tendon, which may represent calcific tendinitis. Incidental note is made of small bone islands in the L2 vertebral body and right iliac bone. Soft tissues: There is a small fat containing ventral hernia extending through the left rectus abdominus muscle over the left lower quadrant of the abdomen (image 105 of the sagittal series 203). No inguinal hernia is present. IMPRESSION: 1. No acute findings in the abdomen or pelvis. 2. Atrophic pancreas. 3. Bilateral nonobstructive nephrolithiasis. 4. Mild colonic diverticulosis without evidence for diverticulitis. 5. Moderate amount of formed stool in the colon. No bowel obstruction. 6. Small fat containing ventral hernia extending through the left rectus abdominus muscle overlying the left lower quadrant of the abdomen. COMMENTS: Consistent with the [employer]'s Incidental Findings Committee white paper (J Am María Elena Radiol 2018): Any incidental renal lesion less than 1 cm or classified as too small to characterize, or any incidental cystic renal lesion characterized as simple-appearing, is likely benign. No follow-up imaging is recommended for these lesions per consensus recommendations based on imaging criteria. Electronically signed by: Gold Abdi On 03/14/2021 19:15:59 PM
[2021-03-14 20:00] VITALS: BP 132/61
--- NOTE | 2021-03-15 20:01 | ECGEPIP ---
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
== END 2021-03-14 20:05 | disposition home or self-care (01) ==
LOC: M ED 15:15
DX: E10.65 Type 1 diabetes mellitus with hyperglycemia (principal); R10.9 Unspecified abdominal pain; I51.7 Cardiomegaly; Z88.0 Allergy status to penicillin; Z88.8 Allergy status to other drugs, medicaments and biological substances; Z91.018 Allergy to other foods; Z91.041 Radiographic dye allergy status

== ENCOUNTER → 2021-03-22 | Outpatient (REF) | payer MEDICARE, OTHER ==
[2021-03-22 12:02] LABS: BASO % 0.3 % (0.0-1.0); EOS # 0.1 10^3/uL (0.0-0.5); EOS % 0.8 % (0.0-3.0); HEMATOCRIT 36.3 % (36.0-47.0); HEMOGLOBIN 12.1 g/dl (12.0-15.5); LYMPH # 1.6 10^3/uL (1.5-5.0); LYMPH % 25.5 % (24.0-44.0); MEAN CORPUSCULAR HGB CONC 33.3 g/dl (32.0-36.5); MONO # 0.6 10^3/uL (0.0-0.8); MONO % 9.7 % (2.0-8.0); NEUTROPHILS % 63.1 % (36.0-66.0); PLATELET COUNT, AUTOMATED 137 10^3/uL (150-450); RED BLOOD COUNT 3.56 10^6/uL (4.00-5.40); WHITE BLOOD COUNT 6.3 10^3/uL (4.0-10.0)
[2021-03-22 13:00] LABS: ALBUMIN 3.4 GM/DL (3.2-5.2); BILIRUBIN,TOTAL 0.3 MG/DL (0.2-1.0); CALCIUM LEVEL 9.4 MG/DL (8.8-10.2); CREATININE FOR GFR 1.69 MG/DL (0.55-1.30); GLOMERULAR FILTRATION RATE 32.5 (>45); MAGNESIUM LEVEL 2.3 MG/DL (1.8-2.4); POTASSIUM SERUM 3.8 MEQ/L (3.5-5.1); TOTAL PROTEIN 5.9 GM/DL (6.4-8.2)
[2021-03-25 00:11] LABS: CMV QUANT DNA PCR (PLASMA) Negative (Negative)
== END ==
LOC: M LAB REF 11:38
PROVIDERS: ATTEND Internal Medicine
DX: D47.1 Chronic myeloproliferative disease (principal); Z94.81 Bone marrow transplant status

== ENCOUNTER → 2021-04-05 | Outpatient (REF) | payer MEDICARE, OTHER ==
[2021-04-05 11:07] LABS: BASO % 0.3 % (0.0-1.0); EOS # 0.1 10^3/uL (0.0-0.5); EOS % 1.5 % (0.0-3.0); HEMATOCRIT 35.2 % (36.0-47.0); LYMPH % 16.3 % (24.0-44.0); MEAN CORPUSCULAR HEMOGLOBIN 34.7 pg (27.0-33.0); MEAN CORPUSCULAR HGB CONC 34.1 g/dl (32.0-36.5); MEAN CORPUSCULAR VOLUME 101.7 fl (80.0-96.0); MONO # 0.6 10^3/uL (0.0-0.8); MONO % 9.5 % (2.0-8.0); NEUTROPHILS # 4.5 10^3/uL (1.5-8.5); NEUTROPHILS % 71.8 % (36.0-66.0); PLATELET COUNT, AUTOMATED 116 10^3/uL (150-450); RED BLOOD COUNT 3.46 10^6/uL (4.00-5.40); WHITE BLOOD COUNT 6.2 10^3/uL (4.0-10.0)
[2021-04-05 11:34] LABS: ALBUMIN 3.2 GM/DL (3.2-5.2); BILIRUBIN,TOTAL 0.4 MG/DL (0.2-1.0); CREATININE FOR GFR 1.8 MG/DL (0.55-1.30); GLOMERULAR FILTRATION RATE 30.2 (>45); MAGNESIUM LEVEL 2.3 MG/DL (1.8-2.4); POTASSIUM SERUM 3.8 MEQ/L (3.5-5.1); TOTAL PROTEIN 5.8 GM/DL (6.4-8.2)
[2021-04-09 00:07] LABS: CMV QUANT DNA PCR (PLASMA) Negative (Negative)
== END ==
LOC: M LAB REF 09:10
PROVIDERS: ATTEND Internal Medicine
DX: D47.1 Chronic myeloproliferative disease (principal); Z94.81 Bone marrow transplant status

== ENCOUNTER → 2021-04-19 | Outpatient (REF) | payer MEDICARE, OTHER ==
[2021-04-19 11:11] LABS: BASO % 0.3 % (0.0-1.0); EOS # 0.1 10^3/uL (0.0-0.5); EOS % 0.9 % (0.0-3.0); LYMPH # 1.2 10^3/uL (1.5-5.0); LYMPH % 18.2 % (24.0-44.0); MEAN CORPUSCULAR HEMOGLOBIN 34.3 pg (27.0-33.0); MEAN CORPUSCULAR HGB CONC 33.3 g/dl (32.0-36.5); MEAN CORPUSCULAR VOLUME 102.9 fl (80.0-96.0); MONO # 0.5 10^3/uL (0.0-0.8); MONO % 8.4 % (2.0-8.0); NEUTROPHILS # 4.5 10^3/uL (1.5-8.5); NEUTROPHILS % 71.6 % (36.0-66.0); PLATELET COUNT, AUTOMATED 134 10^3/uL (150-450); WHITE BLOOD COUNT 6.3 10^3/uL (4.0-10.0)
[2021-04-19 12:12] LABS: ALBUMIN 3.3 GM/DL (3.2-5.2); BILIRUBIN,TOTAL 0.3 MG/DL (0.2-1.0); CALCIUM LEVEL 8.9 MG/DL (8.8-10.2); CREATININE FOR GFR 1.8 MG/DL (0.55-1.30); GLOMERULAR FILTRATION RATE 30.2 (>45); MAGNESIUM LEVEL 2.4 MG/DL (1.8-2.4); POTASSIUM SERUM 3.5 MEQ/L (3.5-5.1); TOTAL PROTEIN 5.8 GM/DL (6.4-8.2)
== END ==
LOC: M LAB REF 10:57
PROVIDERS: ATTEND Internal Medicine
DX: Z94.81 Bone marrow transplant status (principal); D47.1 Chronic myeloproliferative disease

== ENCOUNTER 2021-05-31 18:10 | Emergency (ER) | payer MEDICARE, OTHER ==
[~2021-05-31] VITALS: Ht 165.1 cm; Wt 98.3 kg
[2021-05-31 19:14] LABS: BASO % 0.3 % (0.0-1.0); EOS # 0.1 10^3/uL (0.0-0.5); EOS % 0.6 % (0.0-3.0); HEMATOCRIT 37.4 % (36.0-47.0); HEMOGLOBIN 12.7 g/dl (12.0-15.5); LYMPH # 1.2 10^3/uL (1.5-5.0); LYMPH % 15.5 % (24.0-44.0); MEAN CORPUSCULAR HEMOGLOBIN 35.1 pg (27.0-33.0); MEAN CORPUSCULAR VOLUME 103.3 fl (80.0-96.0); MONO # 0.5 10^3/uL (0.0-0.8); MONO % 5.7 % (2.0-8.0); NEUTROPHILS # 6.1 10^3/uL (1.5-8.5); NEUTROPHILS % 77.5 % (36.0-66.0); PLATELET COUNT, AUTOMATED 155 10^3/uL (150-450); RED BLOOD COUNT 3.62 10^6/uL (4.00-5.40); WHITE BLOOD COUNT 7.9 10^3/uL (4.0-10.0)
[2021-05-31 19:29] LABS: ALBUMIN 3.9 GM/DL (3.2-5.2); BILIRUBIN,DIRECT 0.1 MG/DL (0.0-0.2); BILIRUBIN,TOTAL 0.4 MG/DL (0.2-1.0); TOTAL PROTEIN 6.8 GM/DL (6.4-8.2)
[2021-05-31] MEDS ORDERED: ONDANSETRON 4MG/2ML VIAL IV ONE (19:55)
--- NOTE | 2021-05-31 22:06 | REPVR ---
PROCEDURE INFORMATION: Exam: CT Abdomen And Pelvis Without Contrast Exam date and time: 05/31/2021 7:59 PM Age: 66 years old Clinical indication: Left flank pain, history of kidney stones. TECHNIQUE: Imaging protocol: Computed tomography of the abdomen and pelvis without contrast. Radiation optimization: All CT scans at this facility use at least one of these dose optimization techniques: automated exposure control; mA and/or kV adjustment per patient size (includes targeted exams where dose is matched to clinical indication); or iterative reconstruction. COMPARISON: CT ANGIO CHEST 09/22/2018 5:24 PM FINDINGS: Tubes, catheters and devices: A partially imaged central venous line terminates in the junction of the superior vena cava and right atrium. Lungs: There is mild atelectasis in the inferior lingula and left lower lobe. The lungs were not fully imaged. Heart: No cardiomegaly or pericardial effusion is noted. There are mitral annular calcifications. Liver: Unremarkable. No liver lesion is identified. The contour of the liver is smooth. No hepatomegaly is noted. Gallbladder and bile ducts: No calcified gallstones are noted. No gallbladder wall thickening, pericholecystic fluid, or pericholecystic inflammatory changes are identified. No dilation of the bile ducts is noted. No calcified stones are seen in the common bile duct. Pancreas: The pancreas is atrophic and otherwise unremarkable. No dilation of the main pancreatic duct is noted. Spleen: Unremarkable. No splenomegaly is noted. Adrenal glands: The adrenal glands are small, which is similar in appearance compared to the prior CTA chest on 09/22/2018. No adrenal nodule is noted. Kidneys and ureters: There is a 17 mm benign-appearing exophytic simple cyst arising from the lateral cortex of the interpolar region of the right kidney, for which follow-up imaging is not necessary. There is bilateral nonobstructive nephrolithiasis. Left renal cortical calcifications are noted. No calculi are noted in the ureters. No hydronephrosis or hydroureter is present. Stomach and bowel: The stomach is decompressed, limiting its optimal evaluation. The small bowel is unremarkable. There is colonic diverticulosis without evidence for diverticulitis. There is no evidence for a bowel obstruction, colitis, pneumatosis intestinalis, intussusception, volvulus, or perforated viscus. There is a moderate amount of formed stool in the cecum, ascending colon, and transverse colon. The descending colon and rectosigmoid are decompressed, limiting their optimal evaluation. Appendix: The appendix is not identified and may have been removed. No dilated blind ending tubular structure, inflammatory fat stranding, or fluid is noted in the expected location of the appendix. Intraperitoneal space: No free air. No ascites. No abscess. Retroperitoneal space: No fluid collection. No mass. Vasculature: The abdominal aorta is normal in caliber. There are moderate to severe atherosclerotic calcifications. Incidental note is made of small round calcifications in the pelvis, which are compatible with phleboliths. Lymph nodes: No enlarged lymph nodes. Urinary bladder: The partially distended urinary bladder is unremarkable. No stones or masses are seen in the bladder. Reproductive: There has been a hysterectomy. The ovaries are not identified and may have been removed. No adnexal mass is noted. Bones/joints: There is no fracture or dislocation. There are degenerative changes involving the lower thoracic spine, lumbar spine, and sacroiliac joints. There is mild osteoarthritis of both hip joints. There is calcification of the right gluteus minimus tendon, which may represent calcific tendinitis. Incidental note is made of small bone islands in the L2 vertebral body and right iliac bone. Soft tissues: There is a small fat containing ventral hernia extending through the left rectus abdominus muscle over the left lower quadrant of the abdomen. There are calcified granulomas in the subcutaneous tissues in the left flank. IMPRESSION: 1. Bilateral nonobstructive nephrolithiasis. No calculi in the ureters or urinary bladder. No hydronephrosis or hydroureter. 2. Colonic diverticulosis without evidence for diverticulitis. 3. Small fat containing ventral hernia extending through the left rectus abdominus muscle overlying the left lower quadrant of the abdomen. COMMENTS: Consistent with the [employer]'s Incidental Findings Committee white paper (J Am María Elena Radiol 2018): Any incidental renal lesion less than 1 cm or classified as too small to characterize, or any incidental cystic renal lesion characterized as simple-appearing, is likely benign. No follow-up imaging is recommended for these lesions per consensus recommendations based on imaging criteria. Electronically signed by: Gold Abdi On 05/31/2021 22:06:20 PM
[2021-05-31 23:21] VITALS: BP 168/82
== END 2021-05-31 23:25 | disposition home or self-care (01) ==
LOC: M ED 18:10
DX: M54.5 Low back pain (principal); R11.0 Nausea; E11.9 Type 2 diabetes mellitus without complications; I12.9 Hypertensive chronic kidney disease with stage 1 through stage 4 chronic kidney disease, or unspecified chronic kidney disease; N18.30 Chronic kidney disease, stage 3 unspecified; M32.9 Systemic lupus erythematosus, unspecified; M79.7 Fibromyalgia; Z94.81 Bone marrow transplant status; D47.1 Chronic myeloproliferative disease; T86.5 Complications of stem cell transplant; Z79.899 Other long term (current) drug therapy; Z79.82 Long term (current) use of aspirin; Z79.4 Long term (current) use of insulin; Z88.0 Allergy status to penicillin; Z88.1 Allergy status to other antibiotic agents; Z88.8 Allergy status to other drugs, medicaments and biological substances; Z91.018 Allergy to other foods; Z91.041 Radiographic dye allergy status; Z91.048 Other nonmedicinal substance allergy status; F17.210 Nicotine dependence, cigarettes, uncomplicated
CPT/HCPCS: 74176; 80047; 80053; 80197; 81001; 83615; 83690; 83735; 85025; 87086; 87497; 96374; 99284; J2405

== ENCOUNTER → 2021-05-31 | Outpatient (REF) | payer MEDICARE, OTHER ==
[~2021-05-31] MED LIST changes: -HYDR1CRE9 EX; +SFHHYD1CR EX
[2021-05-31 12:44] LABS: BASO % 0.3 % (0.0-1.0); EOS # 0.1 10^3/uL (0.0-0.5); EOS % 1.5 % (0.0-3.0); HEMATOCRIT 35.2 % (36.0-47.0); HEMOGLOBIN 11.6 g/dl (12.0-15.5); LYMPH # 1.3 10^3/uL (1.5-5.0); LYMPH % 16.4 % (24.0-44.0); MEAN CORPUSCULAR HEMOGLOBIN 34.7 pg (27.0-33.0); MEAN CORPUSCULAR VOLUME 105.4 fl (80.0-96.0); MONO # 0.8 10^3/uL (0.0-0.8); MONO % 10.4 % (2.0-8.0); NEUTROPHILS # 5.6 10^3/uL (1.5-8.5); NEUTROPHILS % 71.1 % (36.0-66.0); PLATELET COUNT, AUTOMATED 135 10^3/uL (150-450); RED BLOOD COUNT 3.34 10^6/uL (4.00-5.40); WHITE BLOOD COUNT 7.8 10^3/uL (4.0-10.0)
[2021-05-31 13:12] LABS: ALBUMIN 3.4 GM/DL (3.2-5.2); BILIRUBIN,TOTAL 0.4 MG/DL (0.2-1.0); CALCIUM LEVEL 9.5 MG/DL (8.8-10.2); CREATININE FOR GFR 2.06 MG/DL (0.55-1.30); GLOMERULAR FILTRATION RATE 25.8 (>45); MAGNESIUM LEVEL 2.2 MG/DL (1.8-2.4); POTASSIUM SERUM 3.5 MEQ/L (3.5-5.1); TOTAL PROTEIN 5.8 GM/DL (6.4-8.2)
[2021-06-02 20:08] LABS: CMV QUANT DNA PCR (PLASMA) Negative (Negative)
== END ==
LOC: M LAB REF 11:37
PROVIDERS: ATTEND Internal Medicine
DX: D47.1 Chronic myeloproliferative disease (principal); Z94.81 Bone marrow transplant status; T86.5 Complications of stem cell transplant

== ENCOUNTER → 2021-06-15 | Outpatient (REF) | payer MEDICARE, OTHER ==
[~2021-06-15] MED LIST changes: -CLIN150C15 PO; +CLIN150C17 PO; -DOXY100C PO; +DOXY100C3 PO
[2021-06-15 12:13] LABS: BASO % 0.4 % (0.0-1.0); EOS # 0.1 10^3/uL (0.0-0.5); EOS % 1.8 % (0.0-3.0); HEMATOCRIT 32.9 % (36.0-47.0); HEMOGLOBIN 11.1 g/dl (12.0-15.5); LYMPH # 1.7 10^3/uL (1.5-5.0); LYMPH % 30.9 % (24.0-44.0); MEAN CORPUSCULAR HEMOGLOBIN 35.2 pg (27.0-33.0); MEAN CORPUSCULAR HGB CONC 33.7 g/dl (32.0-36.5); MEAN CORPUSCULAR VOLUME 104.4 fl (80.0-96.0); MONO # 0.6 10^3/uL (0.0-0.8); MONO % 11.3 % (2.0-8.0); NEUTROPHILS % 55.2 % (36.0-66.0); PLATELET COUNT, AUTOMATED 132 10^3/uL (150-450); RED BLOOD COUNT 3.15 10^6/uL (4.00-5.40); WHITE BLOOD COUNT 5.5 10^3/uL (4.0-10.0)
[2021-06-15 14:11] LABS: ALBUMIN 3.4 GM/DL (3.2-5.2); BILIRUBIN,TOTAL 0.3 MG/DL (0.2-1.0); CALCIUM LEVEL 9.8 MG/DL (8.8-10.2); CREATININE FOR GFR 1.87 MG/DL (0.55-1.30); GLOMERULAR FILTRATION RATE 28.9 (>45); MAGNESIUM LEVEL 2.4 MG/DL (1.8-2.4); TOTAL PROTEIN 5.6 GM/DL (6.4-8.2)
== END ==
LOC: M LAB REF 11:52
PROVIDERS: ATTEND Internal Medicine
DX: Z94.81 Bone marrow transplant status (principal); D47.1 Chronic myeloproliferative disease; I12.9 Hypertensive chronic kidney disease with stage 1 through stage 4 chronic kidney disease, or unspecified chronic kidney disease; T86.5 Complications of stem cell transplant

== ENCOUNTER → 2021-07-06 | Outpatient (REF) | payer MEDICARE, OTHER ==
[2021-07-06 13:27] LABS: ALBUMIN 3.2 GM/DL (3.2-5.2); CALCIUM LEVEL 9.4 MG/DL (8.8-10.2); CREATININE FOR GFR 1.81 MG/DL (0.55-1.30); POTASSIUM SERUM 3.9 MEQ/L (3.5-5.1)
== END ==
LOC: M LAB REF 10:56
DX: N18.32 Chronic kidney disease, stage 3b (principal); I12.9 Hypertensive chronic kidney disease with stage 1 through stage 4 chronic kidney disease, or unspecified chronic kidney disease; E83.52 Hypercalcemia; R80.9 Proteinuria, unspecified

== ENCOUNTER → 2021-07-06 | Outpatient (REF) | payer MEDICARE, OTHER ==
[~2021-07-06] MED LIST changes: +ACET-683 PO; +ACET650T61 PO; +ADME100I2 SC; +ALLO10TA PO; +ASPI-161 PO; +ASPI81CH33 PO; +BENZ-52 PO; +CARD180C4 PO; +CLOT28CR2 TOP; +COLA100C5 PO; -CYMB60CA3 PO; +CYMB60CA4 PO; +DOCU100C16 PO; +HYDR-3713 PO; +HYDR-3910 PO; +HYDR1CR EXT; +HYDR1CRE30 TOP; +LABE300T2 PO; +LIDO2SOL17 PO; -LISI-898 PO; +LISI5TAB11 PO; -LORA1TAB4; +LORA1TAB4 PO; +LOSA100T45; +LOSA100T45 PO; -LOSA100T50; +METH-1165 PO; -MONT10TA10 PO; +MONT10TA97 PO; +SENN-80 PO; +SENN8.6T28 PO; +TORS5TAB2 PO; +ZOLO50TA PO; +[UNRECOGNIZED DRUG - OTHER] PO
[2021-07-06 12:12] LABS: BASO % 0.3 % (0.0-1.0); EOS # 0.1 10^3/uL (0.0-0.5); EOS % 2.1 % (0.0-3.0); HEMATOCRIT 33.3 % (36.0-47.0); HEMOGLOBIN 11.4 g/dl (12.0-15.5); LYMPH # 1.7 10^3/uL (1.5-5.0); LYMPH % 27.4 % (24.0-44.0); MEAN CORPUSCULAR HEMOGLOBIN 35.2 pg (27.0-33.0); MEAN CORPUSCULAR HGB CONC 34.2 g/dl (32.0-36.5); MEAN CORPUSCULAR VOLUME 102.8 fl (80.0-96.0); MONO # 0.8 10^3/uL (0.0-0.8); MONO % 12.7 % (2.0-8.0); NEUTROPHILS # 3.4 10^3/uL (1.5-8.5); PLATELET COUNT, AUTOMATED 150 10^3/uL (150-450); RED BLOOD COUNT 3.24 10^6/uL (4.00-5.40); WHITE BLOOD COUNT 6.1 10^3/uL (4.0-10.0)
[2021-07-06 13:29] LABS: ALBUMIN 3.2 GM/DL (3.2-5.2); BILIRUBIN,TOTAL 0.3 MG/DL (0.2-1.0); CALCIUM LEVEL 9.3 MG/DL (8.8-10.2); CREATININE FOR GFR 1.87 MG/DL (0.55-1.30); GLOMERULAR FILTRATION RATE 28.9 (>45); MAGNESIUM LEVEL 2.3 MG/DL (1.8-2.4); POTASSIUM SERUM 3.8 MEQ/L (3.5-5.1); TOTAL PROTEIN 5.9 GM/DL (6.4-8.2)
[2021-07-10 21:08] LABS: CMV QUANT DNA PCR (PLASMA) Negative (Negative)
== END ==
LOC: M LAB REF 11:36
PROVIDERS: ATTEND Internal Medicine
DX: D47.1 Chronic myeloproliferative disease (principal); T86.5 Complications of stem cell transplant; N18.32 Chronic kidney disease, stage 3b; I12.9 Hypertensive chronic kidney disease with stage 1 through stage 4 chronic kidney disease, or unspecified chronic kidney disease; E83.52 Hypercalcemia; R80.9 Proteinuria, unspecified; Z94.81 Bone marrow transplant status

== ENCOUNTER → 2021-08-09 | Outpatient (REF) | payer MEDICARE, OTHER ==
[~2021-08-09] MED LIST changes: -ACET-683 PO; -ACET650T61 PO; -ADME100I2 SC; -ALLO10TA PO; -ASPI-161 PO; -ASPI81CH33 PO; -BENZ-52 PO; -CARD180C4 PO; -CLOT28CR2 TOP; -COLA100C5 PO; +CYMB60CA3 PO; -CYMB60CA4 PO; -DOCU100C16 PO; -HYDR-3713 PO; -HYDR-3910 PO; -HYDR1CR EXT; -HYDR1CRE30 TOP; -LABE300T2 PO; -LIDO2SOL17 PO; +LISI-898 PO; -LISI5TAB11 PO; +LORA1TAB4; -LORA1TAB4 PO; -LOSA100T45; -LOSA100T45 PO; +LOSA100T50; -METH-1165 PO; +MONT10TA10 PO; -MONT10TA97 PO; -SENN-80 PO; -SENN8.6T28 PO; -TORS5TAB2 PO; -ZOLO50TA PO; -[UNRECOGNIZED DRUG - OTHER] PO
[2021-08-09 11:22] LABS: BASO % 0.6 % (0.0-1.0); EOS # 0.1 10^3/uL (0.0-0.5); EOS % 2.8 % (0.0-3.0); HEMATOCRIT 28.3 % (36.0-47.0); HEMOGLOBIN 9.6 g/dl (12.0-15.5); LYMPH % 21.4 % (24.0-44.0); MEAN CORPUSCULAR HEMOGLOBIN 35.6 pg (27.0-33.0); MEAN CORPUSCULAR HGB CONC 33.9 g/dl (32.0-36.5); MEAN CORPUSCULAR VOLUME 104.8 fl (80.0-96.0); MONO # 0.6 10^3/uL (0.0-0.8); MONO % 12.6 % (2.0-8.0); NEUTROPHILS # 2.9 10^3/uL (1.5-8.5); PLATELET COUNT, AUTOMATED 143 10^3/uL (150-450); WHITE BLOOD COUNT 4.6 10^3/uL (4.0-10.0)
[2021-08-09 12:59] LABS: ALBUMIN 3.1 GM/DL (3.2-5.2); BILIRUBIN,TOTAL 0.2 MG/DL (0.2-1.0); CALCIUM LEVEL 9.9 MG/DL (8.8-10.2); CREATININE FOR GFR 2.33 MG/DL (0.55-1.30); GLOMERULAR FILTRATION RATE 22.4 (>45); MAGNESIUM LEVEL 2.1 MG/DL (1.8-2.4); POTASSIUM SERUM 3.9 MEQ/L (3.5-5.1); TOTAL PROTEIN 5.6 GM/DL (6.4-8.2)
[2021-08-12 01:09] LABS: CMV QUANT DNA PCR (PLASMA) Negative (Negative)
== END ==
LOC: M LAB REF 11:00
PROVIDERS: ATTEND Internal Medicine
DX: Z94.81 Bone marrow transplant status (principal)

== ENCOUNTER 2021-08-13 03:37 | Emergency (ER) | payer MEDICARE, OTHER ==
[~2021-08-13] VITALS: Ht 165.1 cm; Wt 95.5 kg
[2021-08-13] MEDS ORDERED: ZOLO50TA PO (03:57)
[2021-08-13] MEDS ORDERED: ACET-683 PO (03:57)
[2021-08-13] MEDS ORDERED: PROMETHAZINE INJ 25 MG/ML VIAL (J2550) IM ONE (06:35)
[2021-08-13 07:34] LABS: BASO % 0.4 % (0.0-1.0); EOS # 0.2 10^3/uL (0.0-0.5); EOS % 4.4 % (0.0-3.0); HEMATOCRIT 30.5 % (36.0-47.0); HEMOGLOBIN 10.2 g/dl (12.0-15.5); LYMPH # 1.7 10^3/uL (1.5-5.0); LYMPH % 32.8 % (24.0-44.0); MEAN CORPUSCULAR HEMOGLOBIN 35.3 pg (27.0-33.0); MEAN CORPUSCULAR HGB CONC 33.4 g/dl (32.0-36.5); MEAN CORPUSCULAR VOLUME 105.5 fl (80.0-96.0); MONO # 0.7 10^3/uL (0.0-0.8); MONO % 12.3 % (2.0-8.0); NEUTROPHILS # 2.6 10^3/uL (1.5-8.5); NEUTROPHILS % 49.7 % (36.0-66.0); PLATELET COUNT, AUTOMATED 169 10^3/uL (150-450); RED BLOOD COUNT 2.89 10^6/uL (4.00-5.40); WHITE BLOOD COUNT 5.3 10^3/uL (4.0-10.0)
[2021-08-13 08:02] LABS: BLOOD UREA NITROGEN 56 MG/DL (7-18); CALCIUM LEVEL 9.7 MG/DL (8.8-10.2); CARBON DIOXIDE LEVEL 23 MEQ/L (21-32); CHLORIDE LEVEL 106 MEQ/L (98-107); CK-MB VALUE MASS < 1.0 NG/ML (<3.6); CPK CREATINE PHOSPHOKINASE 53 U/L (26-192); CREATININE FOR GFR 2.41 MG/DL (0.55-1.30); GLOMERULAR FILTRATION RATE 21.5 (>45); GLUCOSE, FASTING 161 MG/DL (70-100); MB/CK RELATIVE INDEX 1.89 (< OR =4); POTASSIUM SERUM 4.1 MEQ/L (3.5-5.1); SODIUM LEVEL 138 MEQ/L (136-145); TROPONIN I < 0.02 NG/ML (< 0.10)
[2021-08-13] MEDS ORDERED: ACETAMINOPHEN 500 MG TAB PO ONE (09:10)
--- NOTE | 2021-08-13 09:15 | REP ---
INDICATION: elevated Cr COMPARISON: CT dated 05/31/2021 TECHNIQUE: Real time lara scale ultrasound examination using curved array transducer. FINDINGS: The bilateral kidneys are normal in reniform shape and demonstrate increased central sinus fat, mildly increased parenchymal echotexture, and few scattered renovascular calcifications consistent with age-related medical renal disease. No hydronephrosis. Right kidney measures 11.2 x 5.9 x 5.2 cm and includes 1.8 cm simple midpole cyst and 1 cm simple lower pole cyst. Left kidney measures 10.4 x 5.1 x 4.8 cm and includes suspected 1.2 cm upper pole cyst with 6 mm nonobstructing calculus as well as 2 cm area of cortical calcification with posterior shadowing possibly representing cortical scarring as suggested by recent CT. Bladder is grossly unremarkable. IMPRESSION: 1. Evidence for medical renal disease as described above. 2. Simple right renal cysts 3. Nonobstructing left renal calculus and cortical calcifications suggesting scarring. <Electronically signed by Dat Millard > 08/13/21 0919
[2021-08-13 10:47] VITALS: BP 167/75
--- NOTE | 2021-08-14 06:13 | ECGEPIP ---
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 Order Number: [id number] Reading MD: Krzysztof Robertson Measurements Intervals [place] Rate: 57 P: 67 HI: 232 QRS: -20 QRSD: 118 T: 43 QT: 496 QTc: 482 Interpretive Statements Sinus bradycardia with 1st degree AV block INTRAVENTRICULAR CONDUCTION DELAY Nonspecific ST-T wave abnormalities Similar to tracing done 11-14-19 Electronically Signed on 08-14-2021 6:12:50 EDT by Krzysztof Robertson
== END 2021-08-13 10:48 | disposition home or self-care (01) ==
LOC: M ED 03:37
DX: M62.830 Muscle spasm of back (principal); N18.30 Chronic kidney disease, stage 3 unspecified; I13.0 Hypertensive heart and chronic kidney disease with heart failure and stage 1 through stage 4 chronic kidney disease, or unspecified chronic kidney disease; I50.9 Heart failure, unspecified; I44.0 Atrioventricular block, first degree; R94.31 Abnormal electrocardiogram [ECG] [EKG]; E09.9 Drug or chemical induced diabetes mellitus without complications; M32.9 Systemic lupus erythematosus, unspecified; M79.7 Fibromyalgia; G47.30 Sleep apnea, unspecified; F41.9 Anxiety disorder, unspecified; F33.9 Major depressive disorder, recurrent, unspecified; E07.9 Disorder of thyroid, unspecified; Z79.4 Long term (current) use of insulin; Z79.52 Long term (current) use of systemic steroids; Z79.899 Other long term (current) drug therapy; Z79.82 Long term (current) use of aspirin; Z91.041 Radiographic dye allergy status; Z88.0 Allergy status to penicillin; Z88.1 Allergy status to other antibiotic agents; Z91.048 Other nonmedicinal substance allergy status; Z91.018 Allergy to other foods; Z88.8 Allergy status to other drugs, medicaments and biological substances; Z86.73 Personal history of transient ischemic attack (TIA), and cerebral infarction without residual deficits; Z98.890 Other specified postprocedural states

== ENCOUNTER → 2021-08-17 | Outpatient (REF) | payer MEDICARE, OTHER ==
[~2021-08-17] MED LIST changes: +ACET-683 PO; +ZOLO50TA PO
[2021-08-17 11:11] LABS: CALCIUM LEVEL 9.1 MG/DL (8.8-10.2); CREATININE FOR GFR 2.33 MG/DL (0.55-1.30); GLOMERULAR FILTRATION RATE 22.4 (>45); PHOSPHORUS LEVEL 3.5 MG/DL (2.5-4.9); POTASSIUM SERUM 4.2 MEQ/L (3.5-5.1)
== END ==
LOC: M LAB REF 10:17
PROVIDERS: ATTEND Internal Medicine Nephrology
DX: N17.9 Acute kidney failure, unspecified (principal)

== ENCOUNTER → 2021-08-23 | Outpatient (REF) | payer MEDICARE, OTHER ==
[~2021-08-23] MED LIST changes: +LABE300T2 PO; +METH-1165 PO; +TORS5TAB2 PO
[2021-08-23 10:49] LABS: BASO % 0.6 % (0.0-1.0); EOS % 0.2 % (0.0-3.0); HEMOGLOBIN 9.6 g/dl (12.0-15.5); LYMPH # 1.4 10^3/uL (1.5-5.0); LYMPH % 27.5 % (24.0-44.0); MEAN CORPUSCULAR HEMOGLOBIN 34.8 pg (27.0-33.0); MEAN CORPUSCULAR HGB CONC 33.1 g/dl (32.0-36.5); MEAN CORPUSCULAR VOLUME 105.1 fl (80.0-96.0); MONO # 0.7 10^3/uL (0.0-0.8); MONO % 13.8 % (2.0-8.0); NEUTROPHILS % 57.7 % (36.0-66.0); PLATELET COUNT, AUTOMATED 160 10^3/uL (150-450); RED BLOOD COUNT 2.76 10^6/uL (4.00-5.40); WHITE BLOOD COUNT 5.2 10^3/uL (4.0-10.0)
[2021-08-23 11:25] LABS: ALBUMIN 3.1 GM/DL (3.2-5.2); BILIRUBIN,TOTAL 0.4 MG/DL (0.2-1.0); CALCIUM LEVEL 9.1 MG/DL (8.8-10.2); CREATININE FOR GFR 2.27 MG/DL (0.55-1.30); GLOMERULAR FILTRATION RATE 23.1 (>45); MAGNESIUM LEVEL 2.4 MG/DL (1.8-2.4); POTASSIUM SERUM 3.9 MEQ/L (3.5-5.1)
== END ==
LOC: M LAB REF 10:24
PROVIDERS: ATTEND Internal Medicine
DX: Z94.81 Bone marrow transplant status (principal)

== ENCOUNTER 2021-08-24 18:58 | Emergency (ER) | payer MEDICARE, OTHER ==
[~2021-08-24] VITALS: Ht 167.6 cm; Wt 98.0 kg
[~2021-08-24 18:58] MED LIST changes: -CYMB60CA3 PO; +CYMB60CA4 PO; -LABE300T2 PO; -METH-1165 PO; -TORS5TAB2 PO
--- OUTSIDE RECORDS SUMMARY | 2021-08-24 19:07 | CCD ---
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 Activ e confirmed 819075299 Problem Dysthymia F34.1 Active confirmed 69706863 Problem Essential hypertension I10 Active confirmed 63873197 Problem Mild intermittent asthma with acute exacerbation J 45.21 Active confirmed 256314010 Problem Mild persistent asthma with acute exacerbation J45 .31 Active confirmed 395989465284885 Problem Lung nodule R91.1 Active confirmed 09610743 2 Problem Thrombocytopathia D69.1 Active confirmed 26 6064925 Problem History of concussion Z87.820 Active confirmed 992642135 Problem Other chronic pain G89.29 Active confirmed 8 5602796 Problem Seasonal allergic rhinitis, unspecified allergic rhinitis trigger J30.2 Active confirmed 211569007 Problem Status post PICC central line placement Z95.828 Active confirmed 966629661 Problem Mixed hyperlipidemia E78.2 Active confirmed 017805044 Problem Gout M10.9 Active confirmed 76360962 Problem Paroxysmal atrial fibrillation I48.0 Active confir med 974284150 Problem Fibromyalgia M79.7 Active confirmed 8475547 7 Problem Systemic lupus M32.9 Active confirmed 20738 009 Problem CKD (chronic kidney disease), stage III N18.3 Active confirmed 604451434 Problem Chronic pain syndrome G89.4 Active confirmed 991574153 Problem Myelofibrosis D75.81 Active confirmed 140127 02 Problem Thrombocytopenia D69.6 Active confirmed 415 113483 Problem 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 Active confirmed 143001790 Problem Frequent falls R29.6 Active confirmed 58465 2002 Problem Influenza vaccination declined Z28.21 Active confir med 179253780 Problem Controlled type 2 diabetes m ellitus with hyperglycemia, unspecified whether assisted insulin use E11.65 Active confirmed 958560132 Problem Chronic kidney disease, stage 3 N18.3 Active confi rmed 939656500 Problem Atrial fibrillation, unspecified type I48.91 Ac tive confirmed 13940182 Problem Insomnia, unspecified type G47.00 Active confirmed 370756533 Problem Asthma, unspecified asthma s everity, unspecified whether complicated, unspecified whether persistent J45.909 Active confirmed 409152075 Problem Systemic lupus erythematosus , unspecified SLE type, unspecified organ involvement status M32.9 Active confirmed 88082486 Problem Restless legs G25.81 Active confirmed 001645 08 Problem Overactive bladder N32.81 Active confirmed 2 54496940 Problem Urinary incontinence, unspecified type R32 A ctive confirmed 663199801 Problem 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 Active confirmed 545783517 Problem CKD (chronic kidney disease) stage 3, GFR 30-59 ml/min N18.3 Active confirmed 075889086 Problem Gastroesophageal reflux disease, esophagitis pre sence not specified K21.9 Active confirmed 843439525 Problem Mild persistent asthma without complication J45.30 Active confirmed 462490452 Problem Restless leg G25.81 Active confirmed 1557070 8 Problem Adjustment disorder with mixed anxiety and depressed mood F43.23 Active confirmed 435475307 Problem Adjustment disorder with anxiety F43.22 Active conf irmed 41789366 Problem Stage 3 chronic kidney disease N18.3 Active confir med 826831492 Problem Dysphagia, unspecified type R13.10 Active confirmed 64739790 Problem Seasonal allergies J30.2 Active confirmed 4 35762481 Problem Resistant hypertension I10 Active confirmed 40375749 Problem Mild episode of recurrent major depressive disorder F33.0 Active confirmed 535485205 Problem Renovascular hypertension I15.0 Active confirmed 276124045 Problem Hypercalcemia E83.52 Active confirmed 942233 09 Problem Adrenal insufficiency E27.40 Active confirmed 523728028 ALLERGIES Allergen (clinical drug ingredient) Drug/Non Drug Allergy do cumented on EMR Reaction Allergy Type Onset Date Status Penicillin (For Allergies Use Only) Anaphylaxis Drug Aller gy Active Contrast Dye Anaphylaxis Non Drug Allergy Activ e Quinolones Quinolones Unknown Non Drug Allergy Active Reglan Anaphylaxis Drug Allergy Active Compazine Anaphylaxis Drug Allergy Active meperidine Demerol([facility] Code:[address]-32) Anaphylaxis Drug Allergy Active ENCOUNTERS from 1955 to 2021-06-16 Encounter Location Date Provider Diagnosis [facility] [address] [facility] [phone] [place] [address] 10 Jun, 2021 Renea Ignacio Dysthymia F34.1 IMMUNIZATIONS Vaccine Route Administration Date Status Influenza 18 yrs & older Flublok IM Intramuscular Aug 05, 2019 Administered Influenza 18 yrs & older Flublok Unknown Aug 08, 2018 Administered Influenza 18 yrs & older Flublok Unknown Aug 06, 2018 Refused Influenza 6mo & up Fluzone Unknown Sep 12, 2014 Admin istered Influenza 6mo & up Fluzone IM Oct 07, 2013 Admin istered Influenza 6mo & up Fluzone Unknown Nov 01, 2011 Admin istered SOCIAL HISTORY Tobacco Use: Social History Observation Description Date Details (start date - stop date) Never Smoker Sex Assigned At : Social History Observation Description Sex Assigned At Unknown Education: Question Answer Notes Level of Education: College Audit Question Answer Notes Total Score: 0 Interpretation: Alcohol Education Language: Question Answer Notes Languages spoken: Citizen Of [place] Muslim: Question Answer Notes Muslim 06 Jew Sexual Hx: Question Answer Notes Had sex in the last 12 months (vaginal, oral, or anal)? No Have you ever had an STD? No Drug and Alcohol Question Answer Notes Total Score: 0 Interpretation: No problems reported BMI Care Goal Follow-Up Question Answer Notes Above Normal BMI Follow-Up Dietary management educatio n, guidance, and counseling, Dietary needs education Tobacco Use: Question Answer Notes Are you a: never smoker REASON FOR REFERRAL No Information VITAL SIGNS No information MEDICATIONS Medication SIG (Take, Route, Frequency, Duration) Notes Start Da te End Date Status Folic Acid _ 1 tablet Orally Once a day OTC Active Oxybutynin Chloride ER 15 MG 1 tablet Orally before bedtime for 90 da ys Active Labetalol HCl 300 MG 1 tablet Orally tid Active Vitamin D3 25 MCG (1000 UT) 1 capsule Orally Once a day Active Debrox 6.5 % 5 drops into affected ear Otic Twice a day for 4 day(s) Apr, Active Insulin Pen Needle 33G X 6 MM 1 injection subcutaneous ly TID ICD10 E11.65 for 30 day(s) May, Not-Taking Hydroxychloroquine 200 mg 1 tab orally Daily for 90 day(s) Active Multivitamin Adult - 1 tab Orally Daily Active dilTIAZem HCl ER 240 MG 1 capsule Orally Once a day Active Fluconazole 200 MG 1 tablet Orally Once a day Active Repaglinide 0.5 MG 1 tablet 15 to 30 minutes be fore meals Orally Three times a day Not-Taking Losartan Potassium 100 MG 1 tablet Orally Once a day 100mg Active predniSONE 10 MG 1 tablet Orally Once a day Active Chlorthalidone 25 MG 1 tablet in the morning with food Orally Once a day Active Senna 8.6 MG 2 tablets Orally before bedtime Active Caltrate 600+D Not-Taking Lorazepam 1 MG 1 tab Orally bid prn for 30 days Jun, Active Torsemide 5 MG 1 tablet Orally Once a day for 90 day(s) Active Symbicort 160-4.5 MCG/ACT 2 puffs Inhalation Twice a day Not-Taking Lantus 100 UNIT/ML 24 units Subcutaneous before bedtime Active Bactrim DS 800-160 MG 1 tablet Orally Daily-mon,mon,mon Active Cyclobenzaprine HCl 10 MG 1 tablet Orally Three times a day as needed for muscle spasms Active Lactulose 20 GM/30ML 30 ml Orally Once a day Active Singulair 10 MG 1 tablet Orally Once a day Active Mupirocin Calcium 2 % 1 application Externally Three times a day for 5 days Apr, Active Ultracet 325-37.5 MG 2 tablets as needed Orally every 6 hrs Active Magnesium 100 MG 2 tabs Orally bid A ctive Flecainide Acetate 50 MG 1 tab Orally twice daily Active Gabapentin 300 MG 1 capsule Orally Once a day Active Pramipexole Dihydrochloride 0.125 MG 3 tablets Orally Every night for 90 days Mirapex Active Budesonide 3 MG 1 cap Orally once daily Active Docusate Sodium 100 MG 1 capsule as needed Orally Once a day for 30 day(s) Active Tacrolimus 1 mg 1.5 in the AM, 1.5 in the PM Orally Twice a day Active Aspirin 81 MG 1 tablet Orally Once a day Active Insulin Lispro 100 UNIT/ML BS < = 150: 0; 151-200: 3; 201-250: 6; 251-300: 9; 301-350: 12; 351-400: 15; > 400: call applications administrator , [id number] Subcutaneous before meals admelog Active Dexamethasone 0.5 MG/5ML 5 ml Orally every 6 hrs Active Clotrimazole 1 % 1 application Externally Twice a day for 28 day(s) Active Acyclovir 400 MG 1 tablet Orally Twice a day Active PROCEDURES No Information RESULTS No Results REASON FOR VISIT Lorazepam Refill MEDICAL (GENERAL) HISTORY Type Description Date Medical History Lupus Medical History Fibromyalgia Medical History Arthritis Medical History Depression/Anxiety Medical History HTN, mandaed by cardiology Medical History HLP Medical History Afib with RVR, on flecainide managed by cardiology, controlled, 81mg aspirin, not anticoagluated for low platelets Medical History YOHANA, CPAP Medical History h/o kidney stones Medical History Diabetes, type 2 goal 7%, la st a1c 7.5% 08/24, facing [place] [place] Medical History Fibrocystic breasts Medical History h/o pancreatitis Medical History Thrombocytopenia, s/p platel et transfusions and IVIG via [facility] Medical History primary mylofibrosis Medical History restless leg Medical History neuropathy Medical History Stem cell transplant Medical History History of reaction to IVIG 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 Surgical History x 2 Surgical History hysterectomy Surgical History lithotrypsy Surgical History glass removed from foot Surgical History loop recorder 10/21/15 Surgical History loop recorder removed 11/02/15 Surgical History bone marrow transplant, [facility] 2016 Surgical History Skin cancer removed from nose 05/30/19 Surgical History bilateral cataracts 09/2020 Hospitalization History Kidney Blood Clot/bruising ([facility]) 05/07 Hospitalization History Facial cellulitis 05/27/2011 Hospitalization History unexplained syncope, fall injury 2014 Hospitalization History [facility] breathing issues 05/2016 Hospitalization [place] (twi ce) costocondritis 01/2017 Hospitalization History pic line 12/2016 Hospitalization History [facility] 03[facility]2019 Hospitalization History YUNG/AFib @ [facility] 11/14/19- 0 Goals Section No Information Health Concerns No Information MEDICAL EQUIPMENT No Information MENTAL STATUS No Information FUNCTIONAL STATUS No Information ASSESSMENTS Encounter Date Diagnosis Assessment Notes Treatment Notes Treatm ent Clinical Notes Jun, Dysthymia (ICD-10 - F34.1) PLAN OF TREATMENT Medication Medication Name Sig Start Date Stop Date Lorazepam 1 MG 1 tab Orally bid prn for 30 days Jun, Next Appt Details Provider Name:Renea Ignacio, 2021-08-11 11:00:00 AM, [address] [facility], , [place], [address], Insurance Providers Payer Name Payer Address Payer Phone Insured Name Patient Relati onship to Insured Coverage Start Date Coverage End Date MEDICARE Part A and B [address] [facility] [id number] ROLAND MENDOSA self FOR LIFE [address] [facility] [address] Krzysztof Mendosa [facility] [address] [address] [facility] [address] ROLAND MENDOSA self
--- OUTSIDE RECORDS SUMMARY | 2021-08-24 19:07 | CCD ---
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 Activ e confirmed 379966225 Problem Dysthymia F34.1 Active confirmed 38164997 Problem Essential hypertension I10 Active confirmed 55424542 Problem Mild intermittent asthma with acute exacerbation J 45.21 Active confirmed 635092920 Problem Mild persistent asthma with acute exacerbation J45 .31 Active confirmed 093151792704235 Problem Lung nodule R91.1 Active confirmed 44631334 2 Problem Thrombocytopathia D69.1 Active confirmed 26 0375940 Problem History of concussion Z87.820 Active confirmed 748794174 Problem Other chronic pain G89.29 Active confirmed 8 6886798 Problem Seasonal allergic rhinitis, unspecified allergic rhinitis trigger J30.2 Active confirmed 755292612 Problem Status post PICC central line placement Z95.828 Active confirmed 158706149 Problem Mixed hyperlipidemia E78.2 Active confirmed 801589068 Problem Gout M10.9 Active confirmed 55405514 Problem Paroxysmal atrial fibrillation I48.0 Active confir med 111834957 Problem Fibromyalgia M79.7 Active confirmed 7377979 7 Problem Systemic lupus M32.9 Active confirmed 77535 009 Problem CKD (chronic kidney disease), stage III N18.3 Active confirmed 828351907 Problem Chronic pain syndrome G89.4 Active confirmed 390198846 Problem Myelofibrosis D75.81 Active confirmed 200773 02 Problem Thrombocytopenia D69.6 Active confirmed 415 521514 Problem 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 Active confirmed 791474465 Problem Frequent falls R29.6 Active confirmed 07839 2002 Problem Influenza vaccination declined Z28.21 Active confir med 471306661 Problem Controlled type 2 diabetes m ellitus with hyperglycemia, unspecified whether fci insulin use E11.65 Active confirmed 330343157 Problem Chronic kidney disease, stage 3 N18.3 Active confi rmed 254178435 Problem Atrial fibrillation, unspecified type I48.91 Ac tive confirmed 22682996 Problem Insomnia, unspecified type G47.00 Active confirmed 675678897 Problem Asthma, unspecified asthma s everity, unspecified whether complicated, unspecified whether persistent J45.909 Active confirmed 789759506 Problem Systemic lupus erythematosus , unspecified SLE type, unspecified organ involvement status M32.9 Active confirmed 21997226 Problem Restless legs G25.81 Active confirmed 211054 08 Problem Overactive bladder N32.81 Active confirmed 2 33705555 Problem Urinary incontinence, unspecified type R32 A ctive confirmed 478397989 Problem 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 Active confirmed 955920430 Problem CKD (chronic kidney disease) stage 3, GFR 30-59 ml/min N18.3 Active confirmed 645085926 Problem Gastroesophageal reflux disease, esophagitis pre sence not specified K21.9 Active confirmed 972329482 Problem Mild persistent asthma without complication J45.30 Active confirmed 223140555 Problem Restless leg G25.81 Active confirmed 0517652 8 Problem Adjustment disorder with mixed anxiety and depressed mood F43.23 Active confirmed 113424933 Problem Adjustment disorder with anxiety F43.22 Active conf irmed 52134055 Problem Stage 3 chronic kidney disease N18.3 Active confir med 838057241 Problem Dysphagia, unspecified type R13.10 Active confirmed 80000563 Problem Seasonal allergies J30.2 Active confirmed 4 12904286 Problem Resistant hypertension I10 Active confirmed 78689446 Problem Mild episode of recurrent major depressive disorder F33.0 Active confirmed 686174234 Problem Renovascular hypertension I15.0 Active confirmed 357600824 Problem Hypercalcemia E83.52 Active confirmed 789743 09 Problem Adrenal insufficiency E27.40 Active confirmed 173647735 ALLERGIES Allergen (clinical drug ingredient) Drug/Non Drug Allergy do cumented on EMR Reaction Allergy Type Onset Date Status Penicillin (For Allergies Use Only) Anaphylaxis Drug Aller gy Active Contrast Dye Anaphylaxis Non Drug Allergy Activ e Quinolones Quinolones Unknown Non Drug Allergy Active Reglan Anaphylaxis Drug Allergy Active Compazine Anaphylaxis Drug Allergy Active meperidine Demerol([facility] Code:[address]-87) Anaphylaxis Drug Allergy Active ENCOUNTERS from 1957 to 2021-08-12 Encounter Location Date Provider Diagnosis [facility] [address] [facility] [phone] [place] [address] Aug, Renea Ignacio Other fatigue R53.83 IMMUNIZATIONS Vaccine Route Administration Date Status Influenza [...] Education Language: Question Answer Notes Languages spoken: Italian Catholic: Question Answer Notes Catholic 06 Confucianist Sexual Hx: Question Answer Notes Had sex [...] REASON FOR REFERRAL No Information VITAL SIGNS Weight 213.0 lbs Aug, Weight-kg 96.62 kg Aug, Height 65.5 in Aug, BMI 34.90 kg/m2 Aug, Heart Rate 59 /min Aug, Respiratory Rate 18 /min Aug, Temperature 97.9 degrees Fahrenheit Aug, Oximetry 98 Aug, Blood pressure systolic 122 mm Hg Aug, Blood pressure diastolic 60 mm Hg Aug, MEDICATIONS Medication SIG (Take, Route, Frequency, Duration) Notes Start Da te End Date Status Fluconazole 200 MG 1 tablet Orally Once a day Active Mupirocin Calcium 2 % 1 application Externally Three times a day for 5 days Apr, Active Caltrate 600+D Active Vitamin D3 25 MCG (1000 UT) 1 capsule Orally Once a day Active Senna 8.6 MG 2 tablets Orally before bedtime Active Multivitamin Adult - 1 tab Orally Daily Active Docusate Sodium 100 MG 1 capsule as needed Orally Once a day for 30 day(s) Active Debrox 6.5 % 5 drops into affected ear Otic Twice a day for 4 day(s) Apr, Active Repaglinide 0.5 MG 1 tablet 15 to 30 minutes be fore meals Orally Three times a day Active Singulair 10 MG 1 tablet Orally Once a day Active Lorazepam 1 MG 1 tab Orally bid prn for 30 days Aug, Active Oxybutynin Chloride ER 15 MG 1 tablet Orally before bedtime for 90 da ys Active Insulin Pen Needle 33G X 6 MM 1 injection subcutaneous ly TID ICD10 E11.65 for 30 day(s) May, Active dilTIAZem HCl ER 240 MG 1 capsule Orally Once a day Active Bactrim DS 800-160 MG 1 tablet Orally Daily-mon,mon,mon Active Pramipexole Dihydrochloride 0.125 MG 3 tablets Orally Every night for 90 days Mirapex Active Chlorthalidone 25 MG 1 tablet in the morning with food Orally Once a day Active Labetalol HCl 300 MG 1 tablet Orally tid Active predniSONE 2.5 MG 1 tablet Orally Once a day Active Losartan Potassium 100 MG 1 tablet Orally Once a day 100mg Active Lactulose 20 GM/30ML 30 ml Orally Once a day Active Aspirin 81 MG 1 tablet Orally Once a day Active Tacrolimus 1 mg 1.5 in the AM, 1.5 in the PM Orally Twice a day Active Folic Acid _ 1 tablet Orally Once a day OTC Active Gabapentin 300 MG 1 capsule Orally Once a day Active Budesonide 3 MG 1 cap Orally once daily Active Dexamethasone 0.5 MG/5ML 5 ml Orally every 6 hrs Active Magnesium 100 MG 2 tabs Orally bid A ctive Flecainide Acetate 50 MG 1 tab Orally twice daily Active Symbicort 160-4.5 MCG/ACT 2 puffs Inhalation Twice a day Active Cyclobenzaprine HCl 10 MG 1 tablet Orally Three times a day as needed for muscle spasms Active Hydroxychloroquine 200 mg 1 tab orally Daily for 90 day(s) Active Ultracet 325-37.5 MG 2 tablets as needed Orally every 6 hrs Active Clotrimazole 1 % 1 application Externally Twice a day for 28 day(s) Active Torsemide 5 MG 1 tablet Orally Once a day for 90 day(s) Active Lantus 100 UNIT/ML 24 units Subcutaneous before bedtime Active Acyclovir 400 MG 1 tablet Orally Twice a day Active Insulin Lispro 100 UNIT/ML BS < = 150: 0; 151-200: 3; 201-250: 6; 251-300: 9; 301-350: 12; 351-400: 15; > 400: call airfield operations specialist , [id number] Subcutaneous before meals admelog Active PROCEDURES No Information RESULTS No Results REASON FOR VISIT 3 month follow up MEDICAL (GENERAL) HISTORY Type Description Date Medical [...] goal 7%, la st a1c 7.5% 08/24, 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 [place] Medical History Fibrocystic breasts Medical History h/o pancreatitis Medical History Thrombocytopenia, s/p platel et transfusions and IVIG via [facility] Medical History primary mylofibrosis Medical History restless leg Medical History neuropathy Medical History Stem cell transplant Medical History History of reaction to IVIG 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 Surgical History x 2 Surgical History hysterectomy Surgical History lithotrypsy Surgical History glass removed from foot Surgical History loop recorder 10/21/15 Surgical History loop recorder removed 11/02/15 Surgical History bone marrow transplant, [facility] 2016 Surgical History Skin cancer removed from nose 05/30/19 Surgical History bilateral cataracts 09/2020 Hospitalization History Kidney Blood Clot/bruising ([facility]) 05/07 Hospitalization History Facial cellulitis 05/27/2011 Hospitalization History unexplained syncope, fall injury 2014 Hospitalization History [facility] breathing issues 05/2016 Hospitalization History [facility] [place]- breathing issues (twi ce) costocondritis 01/2017 Hospitalization History pic line 12/2016 Hospitalization History [facility]2019 Hospitalization History YUNG/AFib @ [facility] 11/14/19- 0 Goals Section No Information Health Concerns No Information MEDICAL EQUIPMENT No Information MENTAL STATUS No Information FUNCTIONAL STATUS No Information ASSESSMENTS Encounter Date Diagnosis Assessment Notes Treatment Notes Treatm ent Clinical Notes Aug, Other fatigue (ICD-10 - R53.83) Pt reports vague sense of fatigue after getting the Moderna booster shot about 3 weeks ago. She denies any fevers/maliase/cough/SOB/body aches. Advised to monitor for any worsening symptoms and get adequate rest throughout the day. Pt states she is very active and has been doing alot of standing and "april" of foods lately. She reports she will try not to work for such long periods of time. PLAN OF TREATMENT Treatment Notes Assessment Notes Clinical Notes Other fatigue Pt reports vague sen se of fatigue after getting the Moderna booster shot about 3 weeks ago. She denies any fevers/maliase/cough/SOB/body aches. Advised to monitor for any worsening symptoms and get adequate rest throughout the day. Pt states she is very active and has been doing alot of standing and "april" of foods lately. She reports she will try not to work for such long periods of time. Next Appt Details 3 Months Reason:f/u Provider Name:Renea Ignacio, 2021-10-27 11:00:00 AM, [address] [facility], , [place], [address], Follow Up:3 Monthsf/u Insurance Providers Payer Name Payer Address Payer Phone Insured Name Patient Relati onship to Insured Coverage Start Date Coverage End Date FOR LIFE [address] [facility] [address] Krzysztof Mendosa [facility] [address] [address] [facility] [phone] ROLAND MENDOSA MEDICARE Part A and B [address] [facility] [phone] ROLAND MENDOSA
--- OUTSIDE RECORDS SUMMARY | 2021-08-24 19:07 | CCD | Continuity of Care Document ---
Author Author Milana MIGUEL NP 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 Unknown Address [address] [place] [address] Phone [phone] Problems Active Problems Provider Date Essential hypertension David Miguel NP Onset: Social History Type Date Description Comments Sex Unknown Allergies, Adverse Reactions, Alerts Active Allergies Reaction Severity Comments Date Penicillin V 05/31/2021 Demerol 05/31/2021 Reglan 05/31/2021 Quinine 05/31/2021 Medications Active Medications SIG Qnty Indications Ordering Provide r Date Cyclobenzaprine HCL 10mg Tablets 1 by mouth three times a day as needed Unknown Pramipexole Dihydrochloride 0.125mg Tablets take 1 tab Po 3 times a day Unknown Flecainide Acetate 50mg Tablets take 1 tab PO twice a day Unknown Clotrimazole Anti-Fungal 1% Cream apply small amount to affected area twice a day x 2-3 weeks Unknown Docusate Sodium 100mg Capsules 1 cap by mouth twice a day Unknown Senna 8.6mg Capsules 2 caps by mouth at bedtime Unknown Folic Acid 1mg Tablets 1 by mouth every day Unknown Aspirin 81 Low Dose 81mg Chewtabs 1 tab by mouth every day as directed Unknown Losartan Potassium 100mg Tablets 1 by mouth every day Unknown Torsemide 5mg Tablets 1 by mouth daily in the morning for 1 week Unknown 0 Gabapentin 300mg Capsules 1 capsule PO nightly Unknown Diltiazem CD 240mg Caps ER 24HR 1 capsule PO daily Unknown Lorazepam 1mg Tablets 1 tab by mouth three times a day Unknown Oxybutynin Chloride ER 15mg Tablets ER 24HR 1 by mouth every day Unknown 000 Dexamethasone 0.5mg/5ML Solution take 5 mls by mouth 4 times daily Unknown Repaglinide 2mg Tablets 1 tab PO 3 times a day Unknown Tramadol Hydrochloride/Acetaminophen 37.5-325mg Tablets 1 tab by mouth twice a day as needed Unkn own Sulfamethoxazole/Trimethoprim DS 800-160mg Tablets 1 tab PO three times a week Unknown Tacrolimus 1mg Capsules 1 capsule twice a day Unknown Prednisone 2.5mg Tablets 1 by mouth every day Unknown Labetalol HCL 300mg Tablets 1 by mouth three times a day Unknown Chlorthalidone 25mg Tablets 1 tab by mouth daily. Unknown Lactulose 20GM/30ML Solution 30ml by mouth once Unknown Montelukast Sodium 10mg Tablets 1 by mouth every day Unknown Sertraline HCL 50mg Tablets 1 by mouth every day Unknown Hydroxychloroquine Sulfate 200mg T ablets 1 tab PO daily Unknown Budesonide 3mg Caps DR Part 1 capsule every 24 hours Unknown Acyclovir 400mg Tablets 1 tab by mouth q8 hours 10 days Unknown Admelog 100Unit/ML Solution use subcutaneously as per sliding scale Unknown Prednisone 10mg Tablets 3 tablets by mouth daily for 2 days. then 2 tablets daily for 2 days. then 1 tablet daily for 2 days. Unknown Lantus 100Unit/ML Solution 10 units sq units at bedtime. Unknown Fluconazole 200mg Tablets 1 tab, by mouth, once a day. for 2 days Unknown 0 Immunizations Description No Information Available Vital Signs Date Vital Result Comment 05/31/2021 3:52pm BP Systolic 118 mmHg BP Diastolic 70 mmHg Heart Rate 63 /min Body Temperature 97.5 F Respiratory Rate 16 /min O2 % BldC Oximetry 100 % Results Description No Information Available Procedures Description No Information Available Medical Devices Description No Information Available Encounters Description No Information Available Assessments Description No Information Available Plan of Treatment No Information Available Functional Status Description No Information Available Mental Status Description No Information Available Referrals Description No Information Available
--- OUTSIDE RECORDS SUMMARY | 2021-08-24 19:07 | CCD ---
Author Author [facility] 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 [facility] Address Unknown Phone Unavailable Care Team Providers Care Contact Center Analyst Name Role Phone WadeDebra kumar Unavailable PROBLEMS ALLERGIES ENCOUNTERS from 1955 to 2021-06-03 IMMUNIZATIONS SOCIAL HISTORY REASON FOR REFERRAL No Information VITAL SIGNS MEDICATIONS PROCEDURES No Information RESULTS No Results REASON FOR VISIT MEDICAL (GENERAL) HISTORY Goals Section Health Concerns MEDICAL EQUIPMENT No Information MENTAL STATUS FUNCTIONAL STATUS ASSESSMENTS No Information PLAN OF TREATMENT Insurance Providers
--- OUTSIDE RECORDS SUMMARY | 2021-08-24 19:07 | CCD ---
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 Activ e confirmed 737373920 Problem Dysthymia F34.1 Active confirmed 42978215 Problem Essential hypertension I10 Active confirmed 52162004 Problem Mild intermittent asthma with acute exacerbation J 45.21 Active confirmed 100740432 Problem Mild persistent asthma with acute exacerbation J45 .31 Active confirmed 878820042676244 Problem Lung nodule R91.1 Active confirmed 85757873 2 Problem Thrombocytopathia D69.1 Active confirmed 26 8211423 Problem History of concussion Z87.820 Active confirmed 786930669 Problem Other chronic pain G89.29 Active confirmed 8 7672139 Problem Seasonal allergic rhinitis, unspecified allergic rhinitis trigger J30.2 Active confirmed 872801107 Problem Status post PICC central line placement Z95.828 Active confirmed 886966602 Problem Mixed hyperlipidemia E78.2 Active confirmed 568158692 Problem Gout M10.9 Active confirmed 41600744 Problem Paroxysmal atrial fibrillation I48.0 Active confir med 657837589 Problem Fibromyalgia M79.7 Active confirmed 8987775 7 Problem Systemic lupus M32.9 Active confirmed 15093 009 Problem CKD (chronic kidney disease), stage III N18.3 Active confirmed 606833766 Problem Chronic pain syndrome G89.4 Active confirmed 265446523 Problem Myelofibrosis D75.81 Active confirmed 580961 02 Problem Thrombocytopenia D69.6 Active confirmed 415 582083 Problem 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 Active confirmed 511417521 Problem Frequent falls R29.6 Active confirmed 60360 2002 Problem Influenza vaccination declined Z28.21 Active confir med 748614469 Problem Controlled type 2 diabetes m ellitus with hyperglycemia, unspecified whether halfway insulin use E11.65 Active confirmed 196409857 Problem Chronic kidney disease, stage 3 N18.3 Active confi rmed 726246970 Problem Atrial fibrillation, unspecified type I48.91 Ac tive confirmed 02491702 Problem Insomnia, unspecified type G47.00 Active confirmed 233442196 Problem Asthma, unspecified asthma s everity, unspecified whether complicated, unspecified whether persistent J45.909 Active confirmed 717968159 Problem Systemic lupus erythematosus , unspecified SLE type, unspecified organ involvement status M32.9 Active confirmed 59291057 Problem Restless legs G25.81 Active confirmed 235294 08 Problem Overactive bladder N32.81 Active confirmed 2 12506425 Problem Urinary incontinence, unspecified type R32 A ctive confirmed 844794170 Problem 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 Active confirmed 682614145 Problem CKD (chronic kidney disease) stage 3, GFR 30-59 ml/min N18.3 Active confirmed 426720812 Problem Gastroesophageal reflux disease, esophagitis pre sence not specified K21.9 Active confirmed 828823233 Problem Mild persistent asthma without complication J45.30 Active confirmed 215610676 Problem Restless leg G25.81 Active confirmed 8608240 8 Problem Adjustment disorder with mixed anxiety and depressed mood F43.23 Active confirmed 635520763 Problem Adjustment disorder with anxiety F43.22 Active conf irmed 97088742 Problem Stage 3 chronic kidney disease N18.3 Active confir med 398324906 Problem Dysphagia, unspecified type R13.10 Active confirmed 26106026 Problem Seasonal allergies J30.2 Active confirmed 4 82032432 Problem Resistant hypertension I10 Active confirmed 51950970 Problem Mild episode of recurrent major depressive disorder F33.0 Active confirmed 556961727 Problem Renovascular hypertension I15.0 Active confirmed 829194372 Problem Hypercalcemia E83.52 Active confirmed 809691 09 Problem Adrenal insufficiency E27.40 Active confirmed 767239340 ALLERGIES Allergen (clinical drug ingredient) Drug/Non Drug Allergy do cumented on EMR Reaction Allergy Type Onset Date Status Penicillin (For Allergies Use Only) Anaphylaxis Drug Aller gy Active Contrast Dye Anaphylaxis Non Drug Allergy Activ e Quinolones Unknown Non Drug Allergy Active Reglan Anaphylaxis Drug Allergy Active Compazine Anaphylaxis Drug Allergy Active meperidine Demerol([facility][NOTE 3] Code:[address]-67) Anaphylaxis Drug Allergy Active ENCOUNTERS from 1955 to 2021-06-01 Encounter Location Date Provider Diagnosis [facility] [address] [facility] [phone] [place] [address] May, Renea Ignacio IMMUNIZATIONS Vaccine Route Administration Date Status Influenza [...] Education Language: Question Answer Notes Languages spoken: Frisian Mosque: Question Answer Notes Mosque 06 [employer] Sexual Hx: Question Answer Notes Had sex [...] _ 1 tablet Orally Once a day Active Debrox 6.5 % 5 drops into affected ear Otic Twice a day for 4 day(s) Apr, Active Insulin Pen Needle 33G X 6 MM 1 injection subcutaneous ly TID ICD10 E11.65 for 30 day(s) May, Not-Taking Vitamin D3 25 MCG (1000 UT) 1 capsule Orally Once a day Active Gabapentin 300 MG 1 capsule Orally Once a day Active Pramipexole Dihydrochloride 0.125 MG 3 tablets Orally Every nigh t for 90 days Active Hydroxychloroquine 200 mg 1 tab orally Daily for 90 day(s) Active Repaglinide 0.5 MG 1 tablet 15 to 30 minutes be fore meals Orally Three times a day Not-Taking Losartan Potassium 100 MG 1 tablet Orally Once a day Active Fluconazole 200 MG 1 tablet Orally Once a day Active Oxybutynin Chloride ER 15 MG 1 tablet Orally before bedtime for 90 da ys Active Labetalol HCl 300 MG 1 tablet Orally tid Active Caltrate 600+D Not-Taking Chlorthalidone 25 MG 1 tablet in the morning with food Orally Once a day Active Senna 8.6 MG 2 tablets Orally before bedtime Active Multivitamin Adult - 1 tab Orally Daily Active dilTIAZem HCl ER 240 MG 1 capsule Orally Once a day Active Torsemide 5 MG 1 tablet Orally Once a day for 90 day(s) Active predniSONE 10 MG 1 tablet Orally Once a day Active Lantus 100 UNIT/ML 24 units Subcutaneous before bedtime Active Bactrim DS 800-160 MG 1 tablet Orally Daily-mon,mon,mon Active Cyclobenzaprine HCl 10 MG 1 tablet Orally Three times a day as needed for muscle spasms Active Lactulose 20 GM/30ML 30 ml Orally Once a day Active Singulair 10 MG 1 tablet Orally Once a day Active Flecainide Acetate 50 MG 1 tab Orally twice daily Active Ultracet 325-37.5 MG 2 tablets as needed Orally every 6 hrs Active Magnesium 100 MG 2 tabs Orally bid A ctive Lorazepam 1 MG 1 tab Orally bid prn for 30 days May, Active Mupirocin Calcium 2 % 1 application Externally Three times a day for 5 days Apr, Active Symbicort 160-4.5 MCG/ACT 2 puffs Inhalation Twice a day Not-Taking Budesonide 3 MG 1 cap Orally once [...] 301-350: 12; 351-400: 15; > 400: call clinical practice consultant , [id number] Subcutaneous before meals Active Dexamethasone 0.5 MG/5ML 5 ml Orally every 6 hrs Active Clotrimazole 1 % 1 application Externally Twice a day for 28 day(s) Active Acyclovir 400 MG 1 tablet Orally Twice a day Active PROCEDURES No Information RESULTS No Results REASON FOR VISIT Call Back, Kidney Pain MEDICAL (GENERAL) HISTORY Type Description Date Medical [...] goal 7%, la st a1c 7.5% 08/24, battery filler [place] Medical History Fibrocystic breasts Medical History h/o pancreatitis Medical History Thrombocytopenia, s/p platel et transfusions and IVIG via [facility] Medical History primary mylofibrosis Medical History restless leg Medical History neuropathy Medical History Stem cell transplant Medical History History of reaction to IVIG 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 Surgical History x 2 Surgical History hysterectomy Surgical History lithotrypsy Surgical History glass removed from foot Surgical History loop recorder 10/21/15 Surgical History loop recorder removed 11/02/15 Surgical History bone marrow transplant, [facility] 2016 Surgical History Skin cancer removed from nose 05/30/19 Surgical History bilateral cataracts 09/2020 Hospitalization History Kidney Blood Clot/bruising ([facility]) 05/07 Hospitalization History Facial cellulitis 05/27/2011 Hospitalization History unexplained syncope, fall injury 2014 Hospitalization History [facility] breathing issues 05/2016 Hospitalization History [place], [place]- breathing issues (twi ce) costocondritis 01/2017 Hospitalization History pic line 12/2016 Hospitalization History [facility] 03/2019 Hospitalization History YUNG/AFib @ [facility] 11/14/19- 0 Goals Section No Information Health Concerns No Information MEDICAL EQUIPMENT No Information MENTAL STATUS No Information FUNCTIONAL STATUS No Information ASSESSMENTS No Information PLAN OF TREATMENT Next Appt Details Provider Name:Renea Ignacio, 2021-08-11 11:00:00 AM, [address], , [place], [address], Insurance Providers Payer Name Payer Address Payer Phone Insured Name Patient Relati onship to Insured Coverage Start Date Coverage End Date MEDICARE Part A and B [address] [facility] [phone] [facility] [address] [id number] [facility] [phone] [employer] [address] [facility] [address] Krzysztof Mendosa
--- OUTSIDE RECORDS SUMMARY | 2021-08-24 19:09 | CCD ---
Author Author [facility] 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 [facility] Address Unknown Phone Unavailable Care Team Providers Care Road Sign Installer Name Role Phone Rosendo Pelayo MD Unavailable Unavailable Rosendo Pelayo MD Unavailable Unavailable Rosendo Pelayo MD Unavailable Unavailable Rosendo Pelayo MD Unavailable Unavailable Rosendo Pelayo MD Unavailable Unavailable Rosendo Pelayo MD Unavailable Unavailable Rosendo Pelayo MD Unavailable Unavailable PABLO HERNANDEZ Unavailable Unavailable BUNKER, R SHASHANK PA Unavailable Unavailable BUNKER, R SHASHANK PA Unavailable Unavailable BUNKER, R SHASHANK PA Unavailable Unavailable BUNKER, R SHASHANK PA Unavailable Unavailable BUNKER, R SHASHANK PA Unavailable Unavailable BUNKER, R SHASHANK PA Unavailable Unavailable BUNKER, R SHASHANK PA Unavailable Unavailable BUNKER, R SHASHANK PA Unavailable Unavailable BUNKER, R SHASHANK PA Unavailable Unavailable BUNKER, R SAHSHANK PA Unavailable Unavailable BUNKER, R SHASHANK PA Unavailable Unavailable BUNKER, R SHASHANK PA Unavailable Unavailable BUNKER, R SHASHANK PA Unavailable Unavailable BUNKER, R SHASHANK PA Unavailable Unavailable BUNKER, R SHASHANK PA Unavailable Unavailable BUNKER, R SHASHANK PA Unavailable Unavailable BUNKER, R SHASHANK PA Unavailable Unavailable BUNKER, R SHASHANK PA Unavailable Unavailable BUNKER, R SHASHANK PA Unavailable Unavailable BUNKER, R SHASHANK PA Unavailable Unavailable BUNKER, R SHASHANK PA Unavailable Unavailable BUNKER, R SHASHANK PA Unavailable Unavailable BUNKER, R SHASHANK PA Unavailable Unavailable BUNKER, R SHASHANK PA Unavailable Unavailable BUNKER, R SHASHANK PA Unavailable Unavailable BUNKER, R SHASHANK PA Unavailable Unavailable BUNKER, R SHASHANK PA Unavailable Unavailable BUNKER, R SHASHANK PA Unavailable Unavailable BUNKER, R SHASHANK PA Unavailable Unavailable BUNKER, R SHASHANK PA Unavailable Unavailable BUNKER, R SHASHANK PA Unavailable Unavailable BUNKER, R SHASHANK PA Unavailable Unavailable BUNKER, R SHASHANK PA Unavailable Unavailable BUNKER, R SHASHANK PA Unavailable Unavailable BUNKER, R SHASHANK PA Unavailable Unavailable BUNKER, R SHASHANK PA Unavailable Unavailable BUNKER, R SHASHANK PA Unavailable Unavailable BUNKER, R SHASHANK PA Unavailable Unavailable BUNKER, R SHASHANK PA Unavailable Unavailable BUNKER, R SHASHANK PA Unavailable Unavailable BUNKER, R SHASHANK PA Unavailable Unavailable BUNKER, R SHASHANK PA Unavailable Unavailable BUNKER, R SHASHANK PA Unavailable Unavailable BUNKER, R SHASHANK PA Unavailable Unavailable BUNKER, R SHASHANK PA Unavailable Unavailable BUNKER, R SHASHANK PA Unavailable Unavailable BUNKER, R SHASHANK PA Unavailable Unavailable BUNKER, R SHASHANK PA Unavailable Unavailable BUNKER, R SHASHANK PA Unavailable Unavailable BUNKER, R SHASHANK PA Unavailable Unavailable BUNKER, R SHASHANK PA Unavailable Unavailable BUNKER, R SHASHANK PA Unavailable Unavailable BUNKER, R SHASHANK PA Unavailable Unavailable BUNKER, R SHASHANK PA Unavailable Unavailable BUNKER, R SHASHANK PA Unavailable Unavailable BUNKER, R SHASHANK PA Unavailable Unavailable SURJIT, LUZ ELENA Unavailable Unavailable SURJIT, LUZ ELENA Unavailable Unavailable SURJIT, LUZ ELENA Unavailable Unavailable SURJIT, LUZ ELENA Unavailable Unavailable SURJIT, LUZ ELENA Unavailable Unavailable SURJIT, LUZ ELENA Unavailable Unavailable SURJIT, LUZ ELENA Unavailable Unavailable SURJIT, LUZ ELENA Unavailable Unavailable WEDOW, AILEEN Unavailable Unavailable BUMBANAC, A STAR TECHNOLOGY SALES SPECIALIST Unavailable Unavailable BUMBANAC, A STAR TECHNOLOGY SALES SPECIALIST Unavailable Unavailable BUMBANAC, A STAR TECHNOLOGY SALES SPECIALIST Unavailable Unavailable BUMBANAC, A STAR TECHNOLOGY SALES SPECIALIST Unavailable Unavailable BUMBANAC, A STAR TECHNOLOGY SALES SPECIALIST Unavailable Unavailable BUMBANAC, A STAR TECHNOLOGY SALES SPECIALIST Unavailable Unavailable BUMBANAC, A STAR TECHNOLOGY SALES SPECIALIST Unavailable Unavailable BUMBANAC, A STAR TECHNOLOGY SALES SPECIALIST Unavailable Unavailable BUMBANAC, A STAR TECHNOLOGY SALES SPECIALIST Unavailable Unavailable BUMBANAC, A STAR TECHNOLOGY SALES SPECIALIST Unavailable Unavailable BUMBANAC, A STAR TECHNOLOGY SALES SPECIALIST Unavailable Unavailable BUMBANAC, A STAR TECHNOLOGY SALES SPECIALIST Unavailable Unavailable BUMBANAC, A STAR TECHNOLOGY SALES SPECIALIST Unavailable Unavailable BUMBANAC, A STAR TECHNOLOGY SALES SPECIALIST Unavailable Unavailable BUMBANAC, A STAR TECHNOLOGY SALES SPECIALIST Unavailable Unavailable BUMBANAC, A STAR TECHNOLOGY SALES SPECIALIST Unavailable Unavailable BUMBANAC, A STAR TECHNOLOGY SALES SPECIALIST Unavailable Unavailable BUMBANAC, A STAR TECHNOLOGY SALES SPECIALIST Unavailable Unavailable BUMBANAC, A STAR TECHNOLOGY SALES SPECIALIST Unavailable Unavailable BUMBANAC, A STAR TECHNOLOGY SALES SPECIALIST Unavailable Unavailable BUMBANAC, A STAR TECHNOLOGY SALES SPECIALIST Unavailable Unavailable BUMBANAC, A STAR TECHNOLOGY SALES SPECIALIST Unavailable Unavailable BUMBANAC, A STAR TECHNOLOGY SALES SPECIALIST Unavailable Unavailable BUMBANAC, A STAR TECHNOLOGY SALES SPECIALIST Unavailable Unavailable BUMBANAC, A STAR TECHNOLOGY SALES SPECIALIST Unavailable Unavailable BUMBANAC, A STAR TECHNOLOGY SALES SPECIALIST Unavailable Unavailable BUMBANAC, A STAR TECHNOLOGY SALES SPECIALIST Unavailable Unavailable BUMBANAC, A STAR TECHNOLOGY SALES SPECIALIST Unavailable Unavailable BUMBANAC, A STAR TECHNOLOGY SALES SPECIALIST Unavailable Unavailable BUMBANAC, A STAR TECHNOLOGY SALES SPECIALIST Unavailable Unavailable BUMBANAC, A STAR TECHNOLOGY SALES SPECIALIST Unavailable Unavailable Hernandez, Pablo Unavailable Hernandez, Pablo Unavailable Hernandez, Pablo Unavailable Hernandez, Pablo Unavailable Hernandez, Pablo Unavailable Hernandez, Pablo Unavailable Hernandez, Pablo Unavailable Hernandez, Pablo Unavailable Hernandez, Pablo Unavailable Hernandez, Pablo Unavailable Hernandez, Pablo Unavailable Hernandez, Pablo Unavailable Hernandez, Pablo Unavailable Hernandez, Pablo Unavailable Hernandez, Pablo Unavailable Hernandez, Pablo Unavailable Hernandez, Pablo Unavailable Hernandez, Pablo Unavailable Hernandez, Pablo Unavailable Pablo Hernandez Unavailable Hernandez, Pablo Unavailable Hernandez, Pablo Unavailable Hernandez, Pablo Unavailable Hernandez, Pablo Unavailable Hernandez, Pablo Unavailable Hernandez, Pablo Unavailable Hernandez, Pablo Unavailable Hernandez, Pablo Unavailable Hernandez, Pablo Unavailable MtanosBlaine MD Unavailable Unavailable MtanosBlaine MD Unavailable Unavailable MtanosBlaine MD Unavailable Unavailable MtanosBlaine MD Unavailable Unavailable MtanosBlaine MD Unavailable Unavailable MtanosBlaine MD Unavailable Unavailable MtanosBlaine MD Unavailable Unavailable MtanosBlaine MD Unavailable Unavailable MtanosBlaine MD Unavailable Unavailable MtanosBlaine MD Unavailable Unavailable MtanosBlaine MD Unavailable Unavailable MtanosBlaine MD Unavailable Unavailable MtanosBlaine MD Unavailable Unavailable MtanosBlaine MD Unavailable Unavailable MtanosBlaine MD Unavailable Unavailable MtanosBlaine MD Unavailable Unavailable MtanosBlaine MD Unavailable Unavailable MtanosBlaine MD Unavailable Unavailable MtanosBlaine MD Unavailable Unavailable MtanosBlaine MD Unavailable Unavailable MtanoBlaine kumar MD Unavailable Unavailable MtanoBlaine kumar MD Unavailable Unavailable MtanosBlaine MD Unavailable Unavailable MtanosBlaine MD Unavailable Unavailable MtanosBlaine MD Unavailable Unavailable MtanosBlaine MD Unavailable Unavailable MtanosBlaine MD Unavailable Unavailable MtanosBlaine MD Unavailable Unavailable MtanosBlaine MD Unavailable Unavailable MtanosBlaine MD Unavailable Unavailable MtanosBlaine MD Unavailable Unavailable MtanosBlaine MD Unavailable Unavailable MtanosBlaien MD Unavailable Unavailable MtanosBlaine MD Unavailable Unavailable MtanosBlaine MD Unavailable Unavailable MtanosBaline MD Unavailable Unavailable MtanosBlaine MD Unavailable Unavailable MtanosBlaine MD Unavailable Unavailable MtanosBlaine MD Unavailable Unavailable MtanosBlaine MD Unavailable Unavailable MtanosBlaine MD Unavailable Unavailable MtanosBlaine MD Unavailable Unavailable MtanosBlaine MD Unavailable Unavailable MtanosBlaine MD Unavailable Unavailable MtanosBlaine MD Unavailable Unavailable MtanosBlaine MD Unavailable Unavailable MtanosBlaine MD Unavailable Unavailable MtanosBlaine MD Unavailable Unavailable MtanosBlaine MD Unavailable Unavailable MtanosBlaine MD Unavailable Unavailable MtanosBlaine MD Unavailable Unavailable MtanosBlaine MD Unavailable Unavailable MtanosBlaine MD Unavailable Unavailable MtanosBlaine MD Unavailable Unavailable MtanosBlaine MD Unavailable Unavailable MtanosBlaine MD Unavailable Unavailable MtanosBlaine MD Unavailable Unavailable MtanosBlaine MD Unavailable Unavailable MtanosBlaine MD Unavailable Unavailable MtanosBlaine MD Unavailable Unavailable MtanosBlaine MD Unavailable Unavailable MtanosBlaine MD Unavailable Unavailable MtanosBlaine MD Unavailable Unavailable MtanosBlaine MD Unavailable Unavailable MtanosBlaine MD Unavailable Unavailable MtanosBlaine MD Unavailable Unavailable MtanosBlaine MD Unavailable Unavailable MtanosBlaine MD Unavailable Unavailable MtanoBlaine kumar MD Unavailable Unavailable MtanosBlaine MD Unavailable Unavailable MtanosBlaine MD Unavailable Unavailable MtanosBlaine MD Unavailable Unavailable MtanosBlaine MD Unavailable Unavailable MtanosBlaine MD Unavailable Unavailable MtanosBlaine MD Unavailable Unavailable MtanosBlaine MD Unavailable Unavailable MtanosBlaine MD Unavailable Unavailable MtanosBlaine MD Unavailable Unavailable MtanosBlaine MD Unavailable Unavailable MtanosBlaine MD Unavailable Unavailable MtanosBlaine MD Unavailable Unavailable MtanosBlaine MD Unavailable Unavailable MtanosBlaine MD Unavailable Unavailable MtanoBlaine kumar MD Unavailable Unavailable MtanoBlaine kumar MD Unavailable Unavailable MtanosBlaine MD Unavailable Unavailable MtanosBlaine MD Unavailable Unavailable MtanosBlaine MD Unavailable Unavailable MtanosBlaine MD Unavailable Unavailable MtanosBlaine MD Unavailable Unavailable MtanosBlaine MD Unavailable Unavailable MtanosBlaine MD Unavailable Unavailable MtanosBlaine MD Unavailable Unavailable MtanosBlaine MD Unavailable Unavailable MtanosBlaine MD Unavailable Unavailable MtanosBaline MD Unavailable Unavailable MtanosBlaine MD Unavailable Unavailable MtanosBlaine MD Unavailable Unavailable MtanosBlaine MD Unavailable Unavailable MtanosBlaine MD Unavailable Unavailable MtanoBlaine kumar MD Unavailable Unavailable MtanosBlaine MD Unavailable Unavailable MtanosBlaine MD Unavailable Unavailable MtanosBlaine MD Unavailable Unavailable MtanosBlaine MD Unavailable Unavailable MtanosBlaine MD Unavailable Unavailable Starr OROSCOAH Unavailable Unavailable AMANDEEP, L DAVID PA Unavailable Unavailable AMANDEEP, L DAVID PA Unavailable Unavailable AMANDEEP, L DAVID PA Unavailable Unavailable AMANDEEP, L DAVID PA Unavailable Unavailable AMANDEEP, L DAVID PA Unavailable Unavailable AMANDEEP, L DAVID PA Unavailable Unavailable AMANDEEP, L DAVID PA Unavailable Unavailable AMANDEEP, L DAVID PA Unavailable Unavailable AAMNDEEP, L DAVID PA Unavailable Unavailable AMANDEEP, L DAVID PA Unavailable Unavailable AMANDEEP, L DAVID PA Unavailable Unavailable AMANDEEP, L DAVID PA Unavailable Unavailable AMANDEEP, L DAVID PA Unavailable Unavailable AMANDEEP, L DAVID PA Unavailable Unavailable AMANDEEP, L DAVID PA Unavailable Unavailable AMANDEEP, L DAVID PA Unavailable Unavailable Hernandez, M Maik TECHNOLOGY SALES SPECIALIST Unavailable Unavailable Hernandez, M Maik TECHNOLOGY SALES SPECIALIST Unavailable Unavailable Hernandez, M Maik TECHNOLOGY SALES SPECIALIST Unavailable Unavailable Hernandez, M Maik TECHNOLOGY SALES SPECIALIST Unavailable Unavailable Hernandez, M Maik TECHNOLOGY SALES SPECIALIST Unavailable Unavailable Hernandez, M Maik TECHNOLOGY SALES SPECIALIST Unavailable Unavailable HERNANDEZ, W PABLO Unavailable Unavailable MEAD, H VAUGHN Unavailable Unavailable Re-disclosure Warning The records that you are about to access may contain information from federally-assisted alcohol or drug abuse programs. If such information is present, then the following federally mandated warning applies: This information has been disclosed to you from records protected by federal confidentiality rules (42 CFR part 2). The federal rules prohibit you from making any further disclosure of this information unless further disclosure is expressly permitted by the written consent of the person to whom it pertains or as otherwise permitted by 42 CFR part 2. A general authorization for the release of medical or other information is NOT sufficient for this purpose. The Federal rules restrict any use of the information to criminally investigate or prosecute any alcohol or drug abuse patient.The records that you are about to access may contain highly sensitive health information, the redisclosure of which is protected by Article 27-F of the [facility] Public Health law. If you continue you may have access to information: Regarding HIV / AIDS; Provided by facilities licensed or operated by the [facility] Office of Mental Health; or Provided by the [facility] Office for People With Developmental Disabilities. If such information is present, then the following [facility] mandated warning applies: This information has been disclosed to you from confidential records which are protected by state law. State law prohibits you from making any further disclosure of this information without the specific written consent of the person to whom it pertains, or as otherwise permitted by law. Any unauthorized further disclosure in violation of state law may result in a fine or longterm sentence or both. A general authorization for the release of medical or other information is NOT sufficient authorization for further disc losure. Allergies and Adverse Reactions Type Description Substance Reaction Status Data Source(s ) Propensity to adverse reactions COMPAZINE PO TAB 10 MG COMPAZINE PO TAB 10 MG [facility] Propensity to adverse reactions DEMEROL DEMEROL [facility] Propensity to adverse reactions PCN (penicillin) PCN (penicillin) [facility] Family History Family Member Name Family Member Gender Family Member Status Date o f Status Description Data Source(s) Unknown Male Problem (finding) 10/17/2014 12:00:00 AM EST [facility] ([facility]) Unknown Male Problem (finding) 10/17/2014 12:00:00 AM EST [facility] ([facility]) Unknown Male Problem MEDENT ([facility]) () Unknown Unknown Problem [facility]) Unknown Female Problem MEDENT ([facility]) Unknown Female Problem MEDENT ([facility]) Unknown Female Problem MEDENT ([facility]) Unknown Female Problem MEDENT ([facility]) Unknown Female Problem MED[facility] ([facility]) Encounters Encounter Providers Location Date Indications Data Source(s ) [place] [address] [facility] [address] 08/11/2021 12:00:00 AM EDT eCW1 ([facility]) Outpatient Attender: LUZ ELENA EDDYReferrer: Pablo Hernandez EMERGENCY ROOM-LAB REFOTH 08/02/2021 11:33:00 AM EDT - 08/02/2021 11:33:00 AM EDT [facility] Unknown [address] [facility] [address] 06/15/2021 12:00:00 AM EDT eCW1 ([facility]) Outpatient Attender: LUDIN MIGUEL NPConsultant: SHASHANK COUCH 05/31/2021 03:28:00 PM EDT - 05/31/2021 03:28:00 PM EDT [facility] [place] [address] [facility] [address] 05/31/2021 12:00:00 AM EDT eCW1 ([facility]) Outpatient Attender: Maik Hernandez NPConsultant: SHASHANK NGO ER PA 05/16/2021 10:55:00 AM EDT - 05/16/2021 11:05:00 AM EDT [facility] Out[place] [address] [facility] [address] 05/11/2021 12:00:00 AM EDT eCW1 ([facility]) Outpatient Attender: Maik Hernandez NPConsultant: SHASHANK NGO ER PA 05/04/2021 01:00:00 PM EDT - 05/04/2021 01:10:00 PM EDT [facility] [place] [address] [facility] [address] 05/04/2021 12:00:00 AM EDT eCW1 ([facility]) [place] [address] [facility] [address] 05/04/2021 12:00:00 AM EDT eCW1 ([facility]) [place] [address] [facility] [address] 05/04/2021 12:00:00 AM EDT eCW1 ([facility]) [place] [address] [facility] [address] 04/21/2021 12:00:00 AM EDT eCW1 ([facility]) [place] [address] [facility] [address] 04/13/2021 12:00:00 AM EDT eCW1 ([facility]) [place] [address] [facility] [address] 04/09/2021 12:00:00 AM EDT eCW1 ([facility]) [place] [address] [facility] [address] 04/06/2021 12:00:00 AM EDT eCW1 ([facility]) Outpatient Attender: PABLO Mendoza: PABLO HERNADNEZ 04/05/2021 12:00:00 AM EDT - 04/06/2021 12:00:00 AM EDT Bone marrow transplant status [facility] Bone marrow transplant status [place] [address] [facility] [address] 04/01/2021 12:00:00 AM EDT eCW1 ([facility]) Unknown [address] [facility] [address] 03/29/2021 12:00:00 AM EDT eCW1 ([facility]) TeleMedicine New Pt. Level 3 [address] [place] [address] 03/25/2021 12:00:00 AM EDT eCW1 ([facility]) Unknown [address] [facility] [place] [address] 2021 12:00:00 AM EDT eCW1 ([facility]) Unknown [address] [facility] [place] [address] 03/08/2021 12:00:00 AM EDT eCW1 ([facility]) (TV_Virtual) Virtual Enc Tel Health Visit [address] [place] [phone] 03/04/2021 12:00:00 AM EDT eCW1 ([facility]) Unknown [address] [facility] [place] [address] 03/02/2021 12:00:00 AM EDT eCW1 ([facility]) Unknown [address] [facility] [place] [address] 02/22/2021 12:00:00 AM EDT eCW1 ([facility]) Unknown [address] [facility] [place] [address] 02/21/2021 12:00:00 AM EDT eCW1 ([facility]) Unknown [address] [facility] [address] 02/18/2021 12:00:00 AM EDT eCW1 ([facility]) [place] [address] [facility] [address] 02/18/2021 12:00:00 AM EDT eCW1 ([facility]) [place] [address] [facility] [address] 02/18/2021 12:00:00 AM EDT eCW1 ([facility]) [place] [address] [facility] [address] 02/15/2021 12:00:00 AM EDT eCW1 ([facility]) Outpatient Attender: DAVID COUCH Main Office 02/10/2021 1 0:15:00 AM EDT MEDENT ([facility]) [place] [address] [facility] [address] 02/04/2021 12:00:00 AM EDT eCW1 ([facility]) [place] [address] [facility] [address] 01/27/2021 12:00:00 AM EDT eCW1 ([facility]) Unknown [address] [facility] [address] 01/27/2021 12:00:00 AM EDT eCW1 ([facility]) [place] [address] [facility] [address] 01/19/2021 12:00:00 AM EDT eCW1 ([facility]) [place] [address] [facility] [address] 01/10/2021 12:00:00 AM EST eCW1 ([facility]) Unknown [address] [facility] [place] [address] 01/10/2021 12:00:00 AM EST eCW1 ([facility]) [place] [address] [facility] [address] 12/23/2020 12:00:00 AM EST eCW1 ([facility]) [facility] Pt. Level 4 [address] [place] [address] 12/15/2020 12:00:00 AM EST eCW1 ([facility]) Unknown [address] [facility] [address] 12/07/2020 12:00:00 AM EST eCW1 ([facility]) TeleMedicine Est. Pt. Level 4 [address] [place] [address] 11/17/2020 12:00:00 AM EST eCW1 ([facility]) Unknown [address] [facility] [address] 11/10/2020 12:00:00 AM EST eCW1 ([facility]) Unknown [address] [facility] [address] 10/26/2020 12:00:00 AM EST eCW1 [facility]) TeleMedicine Est. Pt. Level 3 [address] [place] [address] 10/22/2020 12:00:00 AM EST eCW1 ([facility]) Attender: Blaine Damon MD [facility] 10/13/2020 12:58:00 PM EST - 10/13/2020 12:58:00 PM EST NextGen ( [facility]) Outpatient Attender: AILEEN KOCHReferrer: AILEEN KOCH Lead Based Paint Technician: SHASHANK COUCH 10/05/2020 12:00:00 PM EST - 10/05/2020 12:10:00 PM EST [facility] Outpatient Attender: PABLO Lightultant: SHASHANK COUCH 10/05/2020 11:59:00 AM EST - 10/05/2020 12:09:00 PM EST [facility] Unknown [address] [facility] [address] 10/05/2020 12:00:00 AM EST eCW1 ([facility]) Outpatient [address] [facility] [address] 09/22/2020 12:00:00 AM EST eCW1 ([facility]) Unknown [address] [facility] [address] 09/21/2020 12:00:00 AM EST eCW1 ([facility]) [place] [address] [facility] [address] 09/16/2020 12:00:00 AM EST eCW1 ([facility]) Outpatient Attender: VAUGHN Panerrer: Norberto sutton MD 09/05/2020 12:00:00 AM EDT - 09/06/2020 12:00:00 AM EDT [facility] Unknown [address] [facility] [address] 09/04/2020 12:00:00 AM EDT eCW1 ([facility]) Outpatient Attender: AILEEN KOCHConsultant: SHASHANK COUCH 08/31/2020 12:30:00 PM EDT - 08/31/2020 12:40:00 PM EDT [facility] Outpatient Attender: PABLO Guerraant: SHASHANK COUCH 08/31/2020 12:28:00 PM EDT - 08/31/2020 12:38:00 PM EDT [facility] Unknown [address] [facility] [address] 08/31/2020 12:00:00 AM EDT eCW1 ([facility]) [place] [address] [facility] [address] 08/25/2020 12:00:00 AM EDT eCW1 ([facility]) [place] [address] [facility] [address] 08/24/2020 12:00:00 AM EDT eCW1 ([facility]) [place] [address] [facility] [address] 08/24/2020 12:00:00 AM EDT eCW1 ([facility]) [place] [address] [facility] [address] 08/24/2020 12:00:00 AM EDT eCW1 ([facility]) Outpatient Attender: JORGE OROSCOReferrer: Norberto elizondo MD [id number] 08/18/2020 12:00:00 AM EDT - 08/19/2020 12:00:00 AM [facility] Outpatient 08/15/2020 12:00:00 AM [facility] Unknown [address] [facility] [address] 08/12/2020 12:00:00 AM EDT eCW1 ([facility]) [place] [address] [facility] [address] 08/11/2020 12:00:00 AM EDT eCW1 ([facility]) [place] [address] [facility] [address] 08/06/2020 12:00:00 AM EDT eCW1 ([facility]) [place] [address] [facility] [address] 08/04/2020 12:00:00 AM EDT eCW1 ([facility]) [place] [address] [facility] [address] 07/28/2020 12:00:00 AM EDT eCW1 ([facility]) Outpatient Attender: AILEEN KOCHConsultant: SHASHANK COUCH 07/07/2020 10:49:00 AM EDT - 07/07/2020 10:59:00 AM EDT [facility] ital Outpatient Attender: PABLO Lightultant: SHASHANK COUCH 07/07/2020 10:46:00 AM EDT - 07/07/2020 10:56:00 AM EDT [facility] Immunizations Vaccine Date Status Description Data Source(s) COVID-19 VACC,MRNA(MODERNA)/PF 07/23/2021 12:00:00 AM EDT completed [facility] COVID-19 VACCINE Moderna 07/23/2021 12:00:00 AM EDT completed [facility] Vaccine Series Complete: YESThis Data wa s Submitted to [facility] Via [employer]. COVID-19 VACCINE Moderna 02/01/2021 12:00:00 AM EDT completed [facility] Vaccine Series Complete: YESThis Data wa s Submitted to [facility] [employer]. COVID-19 VACCINE Moderna 01/04/2021 12:00:00 AM EST completed [facility] Vaccine Series Complete: NOThis Data was Submitted to [facility] [employer]. Medications Medication Brand Name Start Date Product Form Dose Route Admi nistrative Instructions Pharmacy Instructions Status Indications Reaction Description Data Source(s) 50 mg 08/10/2021 12:00:00 AM EDT tablet 60 TAKE ONE TABLET BY MOUTH TWICE A DAY TAKE ONE TABLET BY MOUTH TWICE A DAY SOLD: 08/10/2021 [facility] Lorazepam 1 MG Oral Tablet Lorazepam 1 MG 08/10/2021 12:00:00 AM EDT active Lorazepam 1 MG eCW1 ([facility]) 1 mg 08/10/2021 12:00:00 AM EDT tablet 60 TAKE ONE TABLET BY MOUTH TWICE A DAY NEEDED MAXIMUM DAILY DOSE = TWO TABLETS TAKE ONE TABLET BY MOUTH TWICE A DAY NEEDED MAXIMUM DAILY DOSE = TWO TABLETS SOLD: 08/10/2021 [facility] montelukast 10 MG Oral Tablet MONTELUKAST SODIUM 08/09/2021 12:0 0:00 AM EDT tablet 30 TAKE ONE TABLET BY MOUTH EVERY E VENING TAKE ONE TABLET BY MOUTH EVERY EVENING SOLD: 08/10/2021 [facility] 800-160 mg 07/28/2021 12:00:00 AM EDT tablet 12 TAKE ONE TABLET BY MOUTH THREE TIMES A WEEK TAKE ONE TABLET BY MOUTH THREE TIMES A WEEK SOLD: 07/29/2021 [facility] 800-160 mg 07/28/2021 12:00:00 AM EDT tablet 12 TAKE ONE TABLET BY MOUTH THREE TIMES A WEEK TAKE ONE TABLET BY MOUTH THREE TIMES A WEEK SOLD: 08/22/2021 [facility] 0.5 mg/5 mL 07/22/2021 12:00:00 AM EDT solution 600 TAKE 5ML BY MOUTH FOUR TIMES A DAY TAKE 5ML BY MOUTH FOUR TIMES A DAY SOLD: 07/23/2021 [facility] Acyclovir 400 MG Oral Tablet ACYCLOVIR 07/20/2021 12:00:00 AM EDT tabl et 60 TAKE ONE TABLET BY MOUTH TWO TIMES A DAY TAKE ONE TABLET BY MOUTH TWO TIMES A DAY SOLD: 08/15/2021 [facility] Acyclovir 400 MG Oral Tablet ACYCLOVIR 07/20/2021 12:00:00 AM EDT tabl et 60 TAKE ONE TABLET BY MOUTH TWO TIMES A DAY TAKE ONE TABLET BY MOUTH TWO TIMES A DAY SOLD: 07/20/2021 [facility] 5 mg 07/06/2021 12:00:00 AM EDT tablet 30 TAKE ONE TABLET BY MOUTH ONCE DAILY STOP TAKING WHEN ILLNESS IS RESOLVED TAKE ONE TABLET BY MOUTH ONCE DAILY STOP TAKING WHEN ILLNESS IS RESOLVED SOLD: 07/06/2021 [facility] 240 mg 07/05/2021 12:00:00 AM EDT capsule,ext.rel 24h deg radable 30 TAKE ONE CAPSULE BY MOUTH EVERY DAY TAKE ONE CAPSULE BY MOUTH EVERY DAY SOLD: 08/05/2021 [facility] 240 mg 07/05/2021 12:00:00 AM EDT capsule,ext.rel 24h deg radable 30 TAKE ONE CAPSULE BY MOUTH EVERY DAY TAKE ONE CAPSULE BY MOUTH EVERY DAY SOLD: 07/06/2021 [facility] 31 gauge x 1/4" 07/03/2021 12:00:00 AM EDT needle 120 USE FOUR TIMES A DAY USE FOUR TIMES A DAY SOLD: 07/04/2021 [facility] 31 gauge x 1/4" 07/03/2021 12:00:00 AM EDT needle 120 USE FOUR TIMES A DAY USE FOUR TIMES A DAY SOLD: 08/05/2021 [facility] 1 mg 06/26/2021 12:00:00 AM EDT tablet 120 TAPER DIRECTED TAPER DIRECTED SOLD: 06/29/2021 [facility] Lorazepam 1 MG Oral Tablet LORAZEPAM 06/16/2021 12:00:00 AM EDT tablet 60 TAKE ONE TABLET BY MOUTH TWICE A DAY NEEDED MAXIMUM DAILY DOSE = TWO TABLETS TAKE ONE TABLET BY MOUTH TWICE A DAY NEEDED MAXIMUM DAILY DOSE = TWO TABLETS SOLD: 06/20/2021 [facility] 300 mg 06/16/2021 12:00:00 AM EDT capsule 90 TAKE ONE CAPSULE BY MOUTH EVERY DAY AT NIGHT TAKE ONE CAPSULE BY MOUTH EVERY DAY AT NIGHT SOLD: 06/20/2021 [facility] 100 unit/mL (3 mL) 06/15/2021 12:00:00 AM EDT insulin pen 15 INJECT 16 UNITS SUBCUTANEOUSLY IN THE MORNING AND 10 UNITS AT NIGHT. DISCARD EACH PEN 14 DAYS AFTER FIRST USE (1 BOX = 70 DAY SUPPLY) INJECT 16 UNITS SUBCUTANEOUSLY IN THE MORNING AND 10 UNITS AT NIGHT. DISCARD EACH PEN 14 DAYS AFTER FIRST USE (1 BOX = 70 DAY SUPPLY) SOLD: 06/15/2021 [facility] Lorazepam 1 MG Oral Tablet Lorazepam 1 MG 06/15/2021 12:00:00 AM EDT active Lorazepam 1 MG eCW1 ([facility]) Acetaminophen 325 MG / Hydrocodone Bitartrate 5 MG Ora l Tablet 5-325 mg HYDROCODONE/ACETAMINOPHEN 06/02/2021 12:00:00 AM EDT tablet 15 TAKE ONE TABLET BY MOUTH EVERY 6 HOURS NEEDED FOR PAIN MAXIMUM DAILY DOSE = FOUR TABLETS TAKE ONE TABLET BY MOUTH EVERY 6 HOURS NEEDED FOR PAIN MAXIMUM DAILY DOSE = FOUR TABLETS SOLD: 06/03/2021 [facility] Acetaminophen 325 MG / tramadol hydrochloride 37.5 MG Oral Tablet 37.5-325 mg TRAMADOL HCL/ACETAMINOPHEN 05/24/2021 12:00:00 AM EDT tablet 21 TAKE ONE TABLET BY MOUTH THREE TIMES A DAY NEEDED FOR PAIN MAXIMUM DAILY DOSE = 3 TABLETS TAKE ONE TABLET BY MOUTH THREE TIMES A D AY NEEDED FOR PAIN MAXIMUM DAILY DOSE = 3 TABLETS SOLD: 05/25/2021 [facility] Acetaminophen 325 MG / tramadol hydrochloride 37.5 MG Oral Tablet 37.5-325 mg TRAMADOL HCL/ACETAMINOPHEN 05/24/2021 12:00:00 AM EDT tablet 21 TAKE ONE TABLET BY MOUTH THREE TIMES A DAY NEEDED FOR PAIN MAXIMUM DAILY DOSE = 3 TABLETS TAKE ONE TABLET BY MOUTH THREE TIMES A D AY NEEDED FOR PAIN MAXIMUM DAILY DOSE = 3 TABLETS SOLD: 06/29/2021 [facility] 200 mg 05/20/2021 12:00:00 AM EDT tablet 30 TAKE ONE TABLET BY MOUTH EVERY EVENING TAKE ONE TABLET BY MOUTH EVERY EVENING SOLD: 07/13/2021 [facility] 200 mg 05/20/2021 12:00:00 AM EDT tablet 30 TAKE ONE TABLET BY MOUTH EVERY EVENING TAKE ONE TABLET BY MOUTH EVERY EVENING SOLD: 06/15/2021 [facility] 200 mg 05/20/2021 12:00:00 AM EDT tablet 30 TAKE ONE TABLET BY MOUTH EVERY EVENING TAKE ONE TABLET BY MOUTH EVERY EVENING SOLD: 05/20/2021 [facility] 200 mg 05/20/2021 12:00:00 AM EDT tablet 30 TAKE ONE TABLET BY MOUTH EVERY EVENING TAKE ONE TABLET BY MOUTH EVERY EVENING SOLD: 08/15/2021 [facility] 3 ML Insulin Glargine 100 UNT/ML Pen Injector [Lantus] 100 unit/mL (3 mL) INSULIN GLARGINE,HUM.REC.ANLOG 05/12/2021 12:00:00 AM EDT insulin pen 15 INJECT 26 UNITS SUBCUTANEOUSLY EVERY NIGHT INJECT 26 UNITS SUBCUTANEOUSLY EVERY NIGHT SOLD: 05/13/2021 [facility] 3 ML Insulin Glargine 100 UNT/ML Pen Injector [Lantus] 100 unit/mL (3 mL) INSULIN GLARGINE,HUM.REC.ANLOG 05/12/2021 12:00:00 AM EDT insulin pen 15 INJECT 26 UNITS SUBCUTANEOUSLY EVERY NIGHT INJECT 26 UNITS SUBCUTANEOUSLY EVERY NIGHT SOLD: 07/08/2021 [facility] 2 % 05/05/2021 12:00:00 AM EDT cream 15 APPLY TO AFFECTED AREA(S) THREE TIMES A DAY FOR 5 DAYS APPLY TO AFFECTED AREA(S) THREE TIMES A DAY FOR 5 DAYS SOLD: 05/06/2021 [facility] carbamide peroxide 65 MG/ML Otic Solution [Debrox] Debrox 6. 5 % Debrox 6.5 % 05/04/2021 12:00:00 AM EDT 5.0 {drops_into_affected_ear} active Debrox 6.5 % eCW1 ([facility]) Mupirocin 20 MG/ML Topical Cream Mupirocin Calcium 2 % Mupir ocin Calcium 2 % 05/04/2021 12:00:00 AM EDT 1.0 {application} act fany Mupirocin Calcium 2 % eCW1 ([facility]) Mupirocin 20 MG/ML Topical Cream Mupirocin Calcium 2 % Mupir ocin Calcium 2 % 05/04/2021 12:00:00 AM EDT 1.0 {application} act fany Mupirocin Calcium 2 % eCW1 ([facility]) Mupirocin 20 MG/ML Topical Cream Mupirocin Calcium 2 % Mupir ocin Calcium 2 % 05/04/2021 12:00:00 AM EDT 1.0 {application} act fany Mupirocin Calcium 2 % eCW1 ([facility]) Mupirocin 20 MG/ML Topical Cream Mupirocin Calcium 2 % Mupir ocin Calcium 2 % 05/04/2021 12:00:00 AM EDT 1.0 {application} act fany Mupirocin Calcium 2 % eCW1 ([facility]) carbamide peroxide 65 MG/ML Otic Solution [Debrox] Debrox 6. 5 % Debrox 6.5 % 05/04/2021 12:00:00 AM EDT 5.0 {drops_into_affected_ear} active Debrox 6.5 % eCW1 ([facility]) Mupirocin 20 MG/ML Topical Cream Mupirocin Calcium 2 % Mupir ocin Calcium 2 % 05/04/2021 12:00:00 AM EDT 1.0 {application} active eCW1 ([facility]) carbamide peroxide 65 MG/ML Otic Solution [Debrox] Debrox 6. 5 % Debrox 6.5 % 05/04/2021 12:00:00 AM EDT 5.0 {drops_into_affected_ear} active Debrox 6.5 % eCW1 ([facility]) carbamide peroxide 65 MG/ML Otic Solution [Debrox] Debrox 6. 5 % Debrox 6.5 % 05/04/2021 12:00:00 AM EDT 5.0 {drops_into_affected_ear} active Debrox 6.5 % eCW1 ([facility]) Mupirocin 20 MG/ML Topical Cream Mupirocin Calcium 2 % Mupir ocin Calcium 2 % 05/04/2021 12:00:00 AM EDT 1.0 {application} act fany Mupirocin Calcium 2 % eCW1 ([facility]) carbamide peroxide 65 MG/ML Otic Solution [Debrox] Debrox 6. 5 % Debrox 6.5 % 05/04/2021 12:00:00 AM EDT 5.0 {drops_into_affected_ear} active Debrox 6.5 % eCW1 ([facility]) carbamide peroxide 65 MG/ML Otic Solution [Debrox] Debrox 6. 5 % Debrox 6.5 % 05/04/2021 12:00:00 AM EDT 5.0 {drops_into_affected_ear} active Debrox 6.5 % eCW1 ([facility]) carbamide peroxide 65 MG/ML Otic Solution [Debrox] Debrox 6. 5 % Debrox 6.5 % 05/04/2021 12:00:00 AM EDT 5.0 {drops_into_affected_ear} active eCW1 ([facility]) Mupirocin 20 MG/ML Topical Cream Mupirocin Calcium 2 % Mupir ocin Calcium 2 % 05/04/2021 12:00:00 AM EDT 1.0 {application} act fany Mupirocin Calcium 2 % eCW1 ([facility]) 10 mg 04/28/2021 12:00:00 AM EDT tablet 30 TAKE ONE TABLET BY MOUTH EVERY DAY TAKE ONE TABLET BY MOUTH EVERY DAY SOLD: 05/01/2021 [facility] 10 mg 04/28/2021 12:00:00 AM EDT tablet 30 TAKE ONE TABLET BY MOUTH EVERY DAY TAKE ONE TABLET BY MOUTH EVERY DAY SOLD: 06/03/2021 [facility] 100 unit/mL 04/24/2021 12:00:00 AM EDT insulin pen 15 INJECT THREE TIMES A DAY BEFORE MEALS NEEDED PER NEW SLIDING SCALE MAXIMUM DAILY DOSE = 42 UNITS INJECT THREE TIMES A DAY BEFORE MEALS NEEDED PER NEW SLIDING SCALE MAXIMUM DAILY DOSE = 42 UNITS SOLD: 04/24/2021 [facility] 100 unit/mL 04/24/2021 12:00:00 AM EDT insulin pen 15 INJECT THREE TIMES A DAY BEFORE MEALS NEEDED PER NEW SLIDING SCALE MAXIMUM DAILY DOSE = 42 UNITS INJECT THREE TIMES A DAY BEFORE MEALS NEEDED PER NEW SLIDING SCALE MAXIMUM DAILY DOSE = 42 UNITS SOLD: 07/15/2021 [facility] Acyclovir 400 MG Oral Tablet ACYCLOVIR 04/19/2021 12:00:00 AM EDT tabl et 60 TAKE ONE TABLET BY MOUTH TWICE A DAY TAKE ONE TABLET BY MOUTH TWICE A DAY SOLD: 06/20/2021 [facility] Acyclovir 400 MG Oral Tablet ACYCLOVIR 04/19/2021 12:00:00 AM EDT tabl et 60 TAKE ONE TABLET BY MOUTH TWICE A DAY TAKE ONE TABLET BY MOUTH TWICE A DAY SOLD: 04/20/2021 [facility] Acyclovir 400 MG Oral Tablet ACYCLOVIR 04/19/2021 12:00:00 AM EDT tabl et 60 TAKE ONE TABLET BY MOUTH TWICE A DAY TAKE ONE TABLET BY MOUTH TWICE A DAY SOLD: 05/20/2021 [facility] 1 mg 04/13/2021 12:00:00 AM EDT tablet 60 TAKE ONE TABLET BY MOUTH TWICE A DAY NEEDED, MAXIMUM DAILY DOSE = TWO TABLETS TAKE ONE TABLET BY MOUTH TWICE A DAY NEEDED, MAXIMUM DAILY DOSE = TWO TABLETS SOLD: 04/13/2021 [facility] Hydroxychloroquine Sulfate 200 MG Oral Tablet HYDROXYCHLOROQ UINE SULFATE 04/12/2021 12:00:00 AM EDT tablet 30 TAKE ONE TABLET BY MOUTH EVERY DAY WITH BREAKFAST TAKE ONE TABLET BY MOUTH EVERY DAY WITH BREAKFAST SOLD: 07/06/20 21 [facility] Hydroxychloroquine Sulfate 200 MG Oral Tablet HYDROXYCHLOROQ UINE SULFATE 04/12/2021 12:00:00 AM EDT tablet 30 TAKE ONE TABLET BY MOUTH EVERY DAY WITH BREAKFAST TAKE ONE TABLET BY MOUTH EVERY DAY WITH BREAKFAST SOLD: 05/04/20 21 [facility] Hydroxychloroquine Sulfate 200 MG Oral Tablet HYDROXYCHLOROQ UINE SULFATE 04/12/2021 12:00:00 AM EDT tablet 30 TAKE ONE TABLET BY MOUTH EVERY DAY WITH BREAKFAST TAKE ONE TABLET BY MOUTH EVERY DAY WITH BREAKFAST SOLD: 06/01/20 21 [facility] 50 mg 04/12/2021 12:00:00 AM EDT tablet 30 TAKE ONE TABLET BY MOUTH EVERY NIGHT TAKE ONE TABLET BY MOUTH EVERY NIGHT SOLD: 04/12/2021 [facility] Hydroxychloroquine Sulfate 200 MG Oral Tablet HYDROXYCHLOROQ UINE SULFATE 04/12/2021 12:00:00 AM EDT tablet 30 TAKE ONE TABLET BY MOUTH EVERY DAY WITH BREAKFAST TAKE ONE TABLET BY MOUTH EVERY DAY WITH BREAKFAST SOLD: 08/05/20 21 [facility] Hydroxychloroquine Sulfate 200 MG Oral Tablet HYDROXYCHLOROQ UINE SULFATE 04/12/2021 12:00:00 AM EDT tablet 30 TAKE ONE TABLET BY MOUTH EVERY DAY WITH BREAKFAST TAKE ONE TABLET BY MOUTH EVERY DAY WITH BREAKFAST SOLD: 04/12/20 21 [facility] montelukast 10 MG Oral Tablet MONTELUKAST SODIUM 04/07/2021 12:0 0:00 AM EDT tablet 30 TAKE ONE TABLET BY MOUTH EVERY N IGHT TAKE ONE TABLET BY MOUTH EVERY NIGHT SOLD: 06/06/2021 [facility] montelukast 10 MG Oral Tablet MONTELUKAST SODIUM 04/07/2021 12:0 0:00 AM EDT tablet 30 TAKE ONE TABLET BY MOUTH EVERY N IGHT TAKE ONE TABLET BY MOUTH EVERY NIGHT SOLD: 07/13/2021 [facility] montelukast 10 MG Oral Tablet MONTELUKAST SODIUM 04/07/2021 12:0 0:00 AM EDT tablet 30 TAKE ONE TABLET BY MOUTH EVERY N IGHT TAKE ONE TABLET BY MOUTH EVERY NIGHT SOLD: 04/08/2021 [facility] montelukast 10 MG Oral Tablet MONTELUKAST SODIUM 04/07/2021 12:0 0:00 AM EDT tablet 30 TAKE ONE TABLET BY MOUTH EVERY N IGHT TAKE ONE TABLET BY MOUTH EVERY NIGHT SOLD: 05/04/2021 [facility] 10 gram/15 mL 04/02/2021 12:00:00 AM EDT solution 120 TAKE 30MLS BY MOUTH THREE TIMES A DAY NEEDED TAKE 30MLS BY MOUTH THREE TIMES A DAY NEEDED SOLD: 04/07/2021 [facility] 10 gram/15 mL 04/02/2021 12:00:00 AM EDT solution 120 TAKE 30MLS BY MOUTH THREE TIMES A DAY NEEDED TAKE 30MLS BY MOUTH THREE TIMES A DAY NEEDED SOLD: 08/22/2021 [facility] 100 unit/mL 04/01/2021 12:00:00 AM EDT insulin pen 15 INJECT THREE TIMES A DAY BEFORE MEALS NEEDED BASED ON SLIDING SCALE MAXIMUM DAILY DOSE = 20 UNITS INJECT THREE TIMES A DAY BEFORE MEALS NEEDED BASED ON SLIDING SCALE MAXIMUM DAILY DOSE = 20 UNITS SOLD: 04/01/2021 [facility] 5 mg 03/30/2021 12:00:00 AM EDT tablet 30 TAKE ONE TABLET BY MOUTH EVERY DAY TAKE ONE TABLET BY MOUTH EVERY DAY SOLD: 08/05/2021 [facility] 5 mg 03/30/2021 12:00:00 AM EDT tablet 30 TAKE ONE TABLET BY MOUTH EVERY DAY TAKE ONE TABLET BY MOUTH EVERY DAY SOLD: 06/29/2021 [facility] 5 mg 03/30/2021 12:00:00 AM EDT tablet 30 TAKE ONE TABLET BY MOUTH EVERY DAY TAKE ONE TABLET BY MOUTH EVERY DAY SOLD: 03/30/2021 [facility] 5 mg 03/30/2021 12:00:00 AM EDT tablet 30 TAKE ONE TABLET BY MOUTH EVERY DAY TAKE ONE TABLET BY MOUTH EVERY DAY SOLD: 06/01/2021 [facility] 5 mg 03/30/2021 12:00:00 AM EDT tablet 30 TAKE ONE TABLET BY MOUTH EVERY DAY TAKE ONE TABLET BY MOUTH EVERY DAY SOLD: 05/04/2021 [facility] 0.125 mg 03/26/2021 12:00:00 AM EDT tablet 90 TAKE THREE TABLETS BY MOUTH EVERY NIGHT TAKE THREE TABLETS BY MOUTH EVERY NIGHT SOLD: 03/30/2021 [facility] 0.125 mg 03/26/2021 12:00:00 AM EDT tablet 90 TAKE THREE TABLETS BY MOUTH EVERY NIGHT TAKE THREE TABLETS BY MOUTH EVERY NIGHT SOLD: 04/27/2021 [facility] 0.125 mg 03/26/2021 12:00:00 AM EDT tablet 90 TAKE THREE TABLETS BY MOUTH EVERY NIGHT TAKE THREE TABLETS BY MOUTH EVERY NIGHT SOLD: 06/20/2021 [facility] Escitalopram 5 MG Oral Tablet [Lexapro] Lexapro 5 MG Lexapro 5 MG 03/26/2021 12:00:00 AM EDT 1.0 {tablet} active Le xapro 5 MG eCW1 ([facility]) Escitalopram 5 MG Oral Tablet [Lexapro] Lexapro 5 MG Lexapro 5 MG 03/26/2021 12:00:00 AM EDT 1.0 {tablet} active eCW1 ([facility]) 0.125 mg 03/26/2021 12:00:00 AM EDT tablet 90 TAKE THREE TABLETS BY MOUTH EVERY NIGHT TAKE THREE TABLETS BY MOUTH EVERY NIGHT SOLD: 07/20/2021 [facility] Escitalopram 5 MG Oral Tablet [Lexapro] Lexapro 5 MG Lexapro 5 MG 03/26/2021 12:00:00 AM EDT 1.0 {tablet} active Le xapro 5 MG eCW1 ([facility]) 0.125 mg 03/26/2021 12:00:00 AM EDT tablet 90 TAKE THREE TABLETS BY MOUTH EVERY NIGHT TAKE THREE TABLETS BY MOUTH EVERY NIGHT SOLD: 08/22/2021 [facility] 0.125 mg 03/26/2021 12:00:00 AM EDT tablet 90 TAKE THREE TABLETS BY MOUTH EVERY NIGHT TAKE THREE TABLETS BY MOUTH EVERY NIGHT SOLD: 05/23/2021 [facility] 300 mg 03/10/2021 12:00:00 AM EDT tablet 90 TAKE ONE TABLET BY MOUTH THREE TIMES A DAY TAKE ONE TABLET BY MOUTH THREE TIMES A DAY SOLD: 06/15/2021 [facility] 300 mg 03/10/2021 12:00:00 AM EDT tablet 90 TAKE ONE TABLET BY MOUTH THREE TIMES A DAY TAKE ONE TABLET BY MOUTH THREE TIMES A DAY SOLD: 07/13/2021 [facility] 300 mg 03/10/2021 12:00:00 AM EDT tablet 90 TAKE ONE TABLET BY MOUTH THREE TIMES A DAY TAKE ONE TABLET BY MOUTH THREE TIMES A DAY SOLD: 04/07/2021 [facility] 300 mg 03/10/2021 12:00:00 AM EDT tablet 90 TAKE ONE TABLET BY MOUTH THREE TIMES A DAY TAKE ONE TABLET BY MOUTH THREE TIMES A DAY SOLD: 08/10/2021 [facility] 300 mg 03/10/2021 12:00:00 AM EDT tablet 90 TAKE ONE TABLET BY MOUTH THREE TIMES A DAY TAKE ONE TABLET BY MOUTH THREE TIMES A DAY SOLD: 05/04/2021 [facility] 300 mg 03/10/2021 12:00:00 AM EDT tablet 90 TAKE ONE TABLET BY MOUTH THREE TIMES A DAY TAKE ONE TABLET BY MOUTH THREE TIMES A DAY SOLD: 03/11/2021 [facility] 25 mg 03/09/2021 12:00:00 AM EDT tablet 30 TAKE ONE TABLET BY MOUTH EVERY MORNING TAKE ONE TABLET BY MOUTH EVERY MORNING SOLD: 05/04/2021 [facility] 25 mg 03/09/2021 12:00:00 AM EDT tablet 30 TAKE ONE TABLET BY MOUTH EVERY MORNING TAKE ONE TABLET BY MOUTH EVERY MORNING SOLD: 03/09/2021 [facility] 25 mg 03/09/2021 12:00:00 AM EDT tablet 30 TAKE ONE TABLET BY MOUTH EVERY MORNING TAKE ONE TABLET BY MOUTH EVERY MORNING SOLD: 04/07/2021 [facility] 25 mg 03/09/2021 12:00:00 AM EDT tablet 30 TAKE ONE TABLET BY MOUTH EVERY MORNING TAKE ONE TABLET BY MOUTH EVERY MORNING SOLD: 08/05/2021 [facility] 25 mg 03/09/2021 12:00:00 AM EDT tablet 30 TAKE ONE TABLET BY MOUTH EVERY MORNING TAKE ONE TABLET BY MOUTH EVERY MORNING SOLD: 06/06/2021 [facility] 25 mg 03/09/2021 12:00:00 AM EDT tablet 30 TAKE ONE TABLET BY MOUTH EVERY MORNING TAKE ONE TABLET BY MOUTH EVERY MORNING SOLD: 07/06/2021 [facility] 100 mg 03/01/2021 12:00:00 AM EDT tablet 60 TAKE ONE TABLET BY MOUTH AT BEDTIME TAKE ONE TABLET BY MOUTH AT BEDTIME SOLD: 06/20/2021 [facility] 5 mg 03/01/2021 12:00:00 AM EDT tablet 30 TAKE ONE TABLET BY MOUTH EVERY DAY TAKE ONE TABLET BY MOUTH EVERY DAY SOLD: 03/01/2021 [facility] 100 mg 03/01/2021 12:00:00 AM EDT tablet 60 TAKE ONE TABLET BY MOUTH AT BEDTIME TAKE ONE TABLET BY MOUTH AT BEDTIME SOLD: 08/15/2021 [facility] 100 mg 03/01/2021 12:00:00 AM EDT tablet 60 TAKE ONE TABLET BY MOUTH AT BEDTIME TAKE ONE TABLET BY MOUTH AT BEDTIME SOLD: 04/20/2021 [facility] 100 mg 03/01/2021 12:00:00 AM EDT tablet 60 TAKE ONE TABLET BY MOUTH AT BEDTIME TAKE ONE TABLET BY MOUTH AT BEDTIME SOLD: 03/01/2021 [facility] Labetalol hydrochloride 100 MG Oral Tablet LABETALOL HCL 02/19/2021 12:00:00 AM EDT tablet 60 TAKE ONE TABLET BY MOUTH TWI CE A DAY TAKE ONE TABLET BY MOUTH TWICE A DAY SOLD: 02/21/2021 [facility] 10 mg 02/16/2021 12:00:00 AM EDT tablet 30 TAKE ONE TABLET BY MOUTH EVERY DAY TAKE ONE TABLET BY MOUTH EVERY DAY SOLD: 02/16/2021 [facility] 1 mg 02/10/2021 12:00:00 AM EDT tablet 60 TAKE ONE TABLET BY MOUTH TWICE A DAY NEEDED MAXIMUM DAILY DOSE = TWO TABLETS TAKE ONE TABLET BY MOUTH TWICE A DAY NEEDED MAXIMUM DAILY DOSE = TWO TABLETS SOLD: 02/11/2021 [facility] Escitalopram 5 MG Oral Tablet Escitalopram Oxalate 02/09/2021 12:00 :00 AM EDT ORAL active [facility] ([facility]) Cholecalciferol 2000 UNT Oral Tablet Vitamin D3 02/09/2021 12:00:00 A M EDT ORAL active [facility] ([facility]) ferrous gluconate 256 MG Oral Tablet Iron (Ferrous Gluconate ) 02/09/2021 12:00:00 AM EDT ORAL active M EDENT ([facility]) Acyclovir 400 MG Oral Tablet Acyclovir 02/09/2021 12:00:00 AM EDT ORAL active [facility] ([facility]) Labetalol hydrochloride 100 MG Oral Tablet Labetalol HCL 02/09/2021 12:00:00 AM EDT ORAL active [facility] ([facility]) Amlodipine 5 MG Oral Tablet Amlodipine Besylate 02/09/2021 12:00:00 A M EDT ORAL [facility] Prednisone 5 MG Oral Tablet Prednisone 02/09/2021 12:00:00 AM EDT ORAL active [facility] 24 HR Oxybutynin chloride 15 MG Extended Release Oral Tablet Oxybutynin Chloride ER 02/09/2021 12:00:00 AM EDT ORAL active [facility] ([facility]) 24 HR Diltiazem Hydrochloride 120 MG Extended Release Oral C apsule Diltiazem CD 02/09/2021 12:00:00 AM EDT ORAL active [facility] ([facility]) Aspirin 81 MG Delayed Release Oral Tablet Aspirin 81 2020 12:00:00 AM EDT ORAL active [facility] ( [facility]) Admelog Solostar Admelog Solostar 02/09/2021 12:00:00 AM EDT active [facility] ([employer] [facility]) repaglinide 2 MG Oral Tablet Repaglinide 02/09/2021 12:00:00 AM EDT ORAL active [facility] ([facility]) Clotrimazole 10 MG/ML Topical Cream Clotrimazole 02/09/2021 12:00:00 AM EDT active [facility] ([facility]) 60 ACTUAT Budesonide 0.16 MG/ACTUAT / fo rmoterol fumarate 0.0045 MG/ACTUAT Metered Dose Inhaler Budesonide/Formoterol Fumarate Dihydrate 02/09/2021 12:00:00 AM EDT RESPIRATORY active [facility] ([facility]) Dexamethasone 0.1 MG/ML Oral Solution Dexamethasone 02/09/2021 12:00:00 AM EDT ORAL active [facility] ( [facility]) Hydroxychloroquine Sulfate 200 MG Oral Tablet Hydroxychloroq uine Sulfate 02/09/2021 12:00:00 AM EDT ORAL active [facility] ([facility]) Hydrocortisone 10 MG/ML Topical Cream Hydrocortisone 02/09/2021 12:00:00 AM EDT active [facility] ( [facility]) Folic Acid 1 MG Oral Tablet Folic Acid 02/09/2021 12:00:00 AM EDT ORAL active [facility] ([facility]) difluprednate 0.5 MG/ML Ophthalmic Suspension [Durezol] Dure zol 02/09/2021 12:00:00 AM EDT completed [facility] ([facility]) Pramipexole dihydrochloride 0.125 MG Oral Tablet Pramipexole Dihydrochloride 02/09/2021 12:00:00 AM EDT ORAL active [facility] ([facility]) montelukast 10 MG Oral Tablet Montelukast Sodium 02/09/2021 12:00:00 AM EDT ORAL active [facility] Lidocaine Hydrochloride 20 MG/ML Injectable Solution [Xyloca ine] Xylocaine 02/09/2021 12:00:00 AM EDT active [facility] ([facility]) Ketorolac Tromethamine 5 MG/ML Ophthalmic Solution Ketorolac Tromethamine 02/09/2021 12:00:00 AM EDT OPHTHALMIC completed [facility] ([facility]) Acetaminophen 325 MG / tramadol hydrochloride 37.5 MG Oral Tablet Tramadol Hydrochloride/Acetaminophen 02/09/2021 12:00:00 AM EDT ORAL active [facility] ([facility]) Chlorthalidone 25 MG Oral Tablet Chlorthalidone 02/09/2021 12:00:00 A M EDT ORAL active [facility] ([facility] 2.5 mg 02/08/2021 12:00:00 AM EDT tablet 30 TAKE ONE TABLET BY MOUTH DAILY TAKE ONE TABLET BY MOUTH DAILY SOLD: 07/04/2021 [facility] 2.5 mg 02/08/2021 12:00:00 AM EDT tablet 30 TAKE ONE TABLET BY MOUTH DAILY TAKE ONE TABLET BY MOUTH DAILY SOLD: 02/08/2021 [facility] 2.5 mg 02/08/2021 12:00:00 AM EDT tablet 30 TAKE ONE TABLET BY MOUTH DAILY TAKE ONE TABLET BY MOUTH DAILY SOLD: 03/09/2021 [facility] 5 mg 01/30/2021 12:00:00 AM EDT tablet 30 TAKE ONE TABLET BY MOUTH EVERY DAY TAKE ONE TABLET BY MOUTH EVERY DAY SOLD: 01/30/2021 [facility] 25 mg 01/29/2021 12:00:00 AM EDT tablet 15 TAKE ONE-HALF TABLET BY MOUTH EVERY MORNING TAKE ONE-HALF TABLET BY MOUTH EVERY MORNING SOLD: 02/21/2021 [facility] 10 mEq 01/29/2021 12:00:00 AM EDT tablet,ER particles/cry stals 60 TAKE ONE TABLET BY MOUTH TWO TIMES A DAY TAKE ONE TABLET BY MOUTH TWO TIMES A DAY SOLD: 01/29/2021 [facility] 25 mg 01/29/2021 12:00:00 AM EDT tablet 15 TAKE ONE-HALF TABLET BY MOUTH EVERY MORNING TAKE ONE-HALF TABLET BY MOUTH EVERY MORNING SOLD: 01/29/2021 [facility] Labetalol hydrochloride 100 MG Oral Tablet LABETALOL HCL 01/27/2021 12:00:00 AM EDT tablet 60 TAKE ONE TABLET BY MOUTH TWI CE A DAY TAKE ONE TABLET BY MOUTH TWICE A DAY SOLD: 01/27/2021 [facility] Hydralazine Hydrochloride 100 MG Oral Tablet HYDRALAZINE HCL 01/21/2021 12:00:00 AM EDT tablet 90 TAKE ONE TABLET BY MOUTH THR EE TIMES A DAY TAKE ONE TABLET BY MOUTH THREE TIMES A DAY SOLD: 01/21/2021 [facility] Acyclovir 400 MG Oral Tablet ACYCLOVIR 01/19/2021 12:00:00 AM EDT tabl et 60 TAKE ONE TABLET BY MOUTH TWICE A DAY TAKE ONE TABLET BY MOUTH TWICE A DAY SOLD: 01/21/2021 [facility] Acyclovir 400 MG Oral Tablet ACYCLOVIR 01/19/2021 12:00:00 AM EDT tabl et 60 TAKE ONE TABLET BY MOUTH TWICE A DAY TAKE ONE TABLET BY MOUTH TWICE A DAY SOLD: 02/16/2021 [facility] Acyclovir 400 MG Oral Tablet ACYCLOVIR 01/19/2021 12:00:00 AM EDT tabl et 60 TAKE ONE TABLET BY MOUTH TWICE A DAY TAKE ONE TABLET BY MOUTH TWICE A DAY SOLD: 2021 [facility] 1 mg 01/12/2021 12:00:00 AM EST tablet 45 TAKE 1 & 1/2 TABLETS BY MOUTH BEFORE BEDTIME NEEDED MAXIMUM DAILY DOSE = 1 & 1/2 TABLETS TAKE 1 & 1/2 TABLETS BY MOUTH BEFORE BEDTIME NEEDED MAXIMUM DAILY DOSE = 1 & 1/2 TABLETS SOLD: 01/12/2021 [facility] 800-160 mg 01/11/2021 12:00:00 AM EST tablet 12 TAKE ONE TABLET BY MOUTH 3 TIMES A WEEK TAKE ONE TABLET BY MOUTH 3 TIMES A WEEK SOLD: 04/07/2021 [facility] 800-160 mg 01/11/2021 12:00:00 AM EST tablet 12 TAKE ONE TABLET BY MOUTH 3 TIMES A WEEK TAKE ONE TABLET BY MOUTH 3 TIMES A WEEK SOLD: 06/01/2021 [facility] 800-160 mg 01/11/2021 12:00:00 AM EST tablet 12 TAKE ONE TABLET BY MOUTH 3 TIMES A WEEK TAKE ONE TABLET BY MOUTH 3 TIMES A WEEK SOLD: 06/29/2021 [facility] 800-160 mg 01/11/2021 12:00:00 AM EST tablet 12 TAKE ONE TABLET BY MOUTH 3 TIMES A WEEK TAKE ONE TABLET BY MOUTH 3 TIMES A WEEK SOLD: 01/12/2021 [facility] 800-160 mg 01/11/2021 12:00:00 AM EST tablet 12 TAKE ONE TABLET BY MOUTH 3 TIMES A WEEK TAKE ONE TABLET BY MOUTH 3 TIMES A WEEK SOLD: 03/09/2021 [facility] 800-160 mg 01/11/2021 12:00:00 AM EST tablet 12 TAKE ONE TABLET BY MOUTH 3 TIMES A WEEK TAKE ONE TABLET BY MOUTH 3 TIMES A WEEK SOLD: 05/04/2021 [facility] 800-160 mg 01/11/2021 12:00:00 AM EST tablet 12 TAKE ONE TABLET BY MOUTH 3 TIMES A WEEK TAKE ONE TABLET BY MOUTH 3 TIMES A WEEK SOLD: 02/11/2021 [facility] 5 mg 01/06/2021 12:00:00 AM EST tablet 30 TAKE ONE TABLET BY MOUTH EVERY DAY TAKE ONE TABLET BY MOUTH EVERY DAY SOLD: 02/02/2021 [facility] 5 mg 01/06/2021 12:00:00 AM EST tablet 30 TAKE ONE TABLET BY MOUTH EVERY DAY TAKE ONE TABLET BY MOUTH EVERY DAY SOLD: 01/08/2021 [facility] 31 gauge x 1/4" 12/24/2020 12:00:00 AM EST needle 100 USE 1 THREE TIMES A DAY USE 1 THREE TIMES A DAY SOLD: 12/24/2020 [facility] 31 gauge x 1/4" 12/24/2020 12:00:00 AM EST needle 100 USE 1 THREE TIMES A DAY USE 1 THREE TIMES A DAY SOLD: 01/26/2021 [facility] 31 gauge x 1/4" 12/24/2020 12:00:00 AM EST needle 100 USE 1 THREE TIMES A DAY USE 1 THREE TIMES A DAY SOLD: 04/15/2021 [facility] 31 gauge x 1/4" 12/24/2020 12:00:00 AM EST needle 100 USE 1 THREE TIMES A DAY USE 1 THREE TIMES A DAY SOLD: 05/13/2021 [facility] 31 gauge x 1/4" 12/24/2020 12:00:00 AM EST needle 100 USE 1 THREE TIMES A DAY USE 1 THREE TIMES A DAY SOLD: 06/08/2021 [facility] 31 gauge x 1/4" 12/24/2020 12:00:00 AM EST needle 100 USE 1 THREE TIMES A DAY USE 1 THREE TIMES A DAY SOLD: 2021 [facility] 31 gauge x 1/4" 12/24/2020 12:00:00 AM EST needle 100 USE 1 THREE TIMES A DAY USE 1 THREE TIMES A DAY SOLD: 02/16/2021 [facility] Acetaminophen 325 MG / tramadol hydrochloride 37.5 MG Oral Tablet 37.5-325 mg TRAMADOL HCL/ACETAMINOPHEN 12/19/2020 12:00:00 AM EST tablet 21 TAKE ONE TABLET BY MOUTH THREE TIMES A DAY NEEDED FOR PAIN, MAXIMUM DAILY DOSE = THREE TABLETS TAKE ONE TABLET BY MOUTH THREE TIMES A D AY NEEDED FOR PAIN, MAXIMUM DAILY DOSE = THREE TABLETS SOLD: 04/27/2021 [facility] Acetaminophen 325 MG / tramadol hydrochloride 37.5 MG Oral Tablet 37.5-325 mg TRAMADOL HCL/ACETAMINOPHEN 12/19/2020 12:00:00 AM EST tablet 21 TAKE ONE TABLET BY MOUTH THREE TIMES A DAY NEEDED FOR PAIN, MAXIMUM DAILY DOSE = THREE TABLETS TAKE ONE TABLET BY MOUTH THREE TIMES A D AY NEEDED FOR PAIN, MAXIMUM DAILY DOSE = THREE TABLETS SOLD: 12/20/2020 [facility] 10 mg 12/18/2020 12:00:00 AM EST tablet 30 TAKE ONE TABLET BY MOUTH EVERY DAY TAKE ONE TABLET BY MOUTH EVERY DAY SOLD: 12/19/2020 [facility] 10 mg 12/18/2020 12:00:00 AM EST tablet 30 TAKE ONE TABLET BY MOUTH EVERY DAY TAKE ONE TABLET BY MOUTH EVERY DAY SOLD: 01/17/2021 [facility] 10 mg 12/18/2020 12:00:00 AM EST tablet 30 TAKE ONE TABLET BY MOUTH EVERY DAY TAKE ONE TABLET BY MOUTH EVERY DAY SOLD: 04/07/2021 [facility] Cyclobenzaprine hydrochloride 10 MG Oral Tablet CYCLOBENZAPR INE HCL 12/17/2020 12:00:00 AM EST tablet 60 TAKE ONE TABLET BY MOUTH THREE TIMES A DAY NEEDED TAKE ONE TABLET BY MOUTH THREE TIMES A DAY NEEDED SOLD: 12/17/2020 [facility] Escitalopram 5 MG Oral Tablet [Lexapro] Lexapro 5 MG Lexapro 5 MG 12/15/2020 12:00:00 AM EST 1.0 {tablet} active Le xapro 5 MG eCW1 ([facility]) Escitalopram 5 MG Oral Tablet [Lexapro] Lexapro 5 MG Lexapro 5 MG 12/15/2020 12:00:00 AM EST 1.0 {tablet} active Le xapro 5 MG eCW1 ([facility]) Escitalopram 5 MG Oral Tablet [Lexapro] Lexapro 5 MG Lexapro 5 MG 12/15/2020 12:00:00 AM EST 1.0 {tablet} active Le xapro 5 MG eCW1 ([facility]) 2 mg 12/15/2020 12:00:00 AM EST tablet 90 TAKE ONE TABLET BY MOUTH THREE TIMES A DAY ( BEFORE MEALS ) TAKE ONE TABLET BY MOUTH THREE TIMES A D AY ( BEFORE MEALS ) SOLD: 12/15/2020 [facility] Escitalopram 5 MG Oral Tablet [Lexapro] Lexapro 5 MG Lexapro 5 MG 12/15/2020 12:00:00 AM EST 1.0 {tablet} active Le xapro 5 MG eCW1 ([facility]) 2 mg 12/15/2020 12:00:00 AM EST tablet 90 TAKE ONE TABLET BY MOUTH THREE TIMES A DAY ( BEFORE MEALS ) TAKE ONE TABLET BY MOUTH THREE TIMES A D AY ( BEFORE MEALS ) SOLD: 01/18/2021 [facility] Escitalopram 5 MG Oral Tablet [Lexapro] Lexapro 5 MG Lexapro 5 MG 12/15/2020 12:00:00 AM EST 1.0 {tablet} active Le xapro 5 MG eCW1 ([facility]) Escitalopram 5 MG Oral Tablet ESCITALOPRAM OXALATE 12/15/2020 12 :00:00 AM EST tablet 30 TAKE ONE TABLET BY MOUTH EVERY D AY TAKE ONE TABLET BY MOUTH EVERY DAY SOLD: 12/15/2020 [facility] Escitalopram 5 MG Oral Tablet [Lexapro] Lexapro 5 MG Lexapro 5 MG 12/15/2020 12:00:00 AM EST 1.0 {tablet} active Le xapro 5 MG eCW1 ([facility]) 2 mg 12/15/2020 12:00:00 AM EST tablet 90 TAKE ONE TABLET BY MOUTH THREE TIMES A DAY ( BEFORE MEALS ) TAKE ONE TABLET BY MOUTH THREE TIMES A D AY ( BEFORE MEALS ) SOLD: 02/16/2021 [facility] Escitalopram 5 MG Oral Tablet [Lexapro] Lexapro 5 MG Lexapro 5 MG 12/15/2020 12:00:00 AM EST 1.0 {tablet} active Le xapro 5 MG eCW1 ([facility]) Escitalopram 5 MG Oral Tablet ESCITALOPRAM OXALATE 12/15/2020 12 :00:00 AM EST tablet 30 TAKE ONE TABLET BY MOUTH EVERY D AY TAKE ONE TABLET BY MOUTH EVERY DAY SOLD: 01/10/2021 [facility] 2 mg 12/15/2020 12:00:00 AM EST tablet 90 TAKE ONE TABLET BY MOUTH THREE TIMES A DAY ( BEFORE MEALS ) TAKE ONE TABLET BY MOUTH THREE TIMES A D AY ( BEFORE MEALS ) SOLD: 2021 [facility] Escitalopram 5 MG Oral Tablet [Lexapro] Lexapro 5 MG Lexapro 5 MG 12/15/2020 12:00:00 AM EST 1.0 {tablet} active Le xapro 5 MG eCW1 ([facility]) Escitalopram 5 MG Oral Tablet [Lexapro] Lexapro 5 MG Lexapro 5 MG 12/15/2020 12:00:00 AM EST 1.0 {tablet} active Le xapro 5 MG eCW1 ([facility]) Escitalopram 5 MG Oral Tablet [Lexapro] Lexapro 5 MG Lexapro 5 MG 12/15/2020 12:00:00 AM EST 1.0 {tablet} active Le xapro 5 MG eCW1 ([facility]) 2 mg 12/15/2020 12:00:00 AM EST tablet 90 TAKE ONE TABLET BY MOUTH THREE TIMES A DAY ( BEFORE MEALS ) TAKE ONE TABLET BY MOUTH THREE TIMES A D AY ( BEFORE MEALS ) SOLD: 04/13/2021 [facility] Escitalopram 5 MG Oral Tablet ESCITALOPRAM OXALATE 12/15/2020 12 :00:00 AM EST tablet 30 TAKE ONE TABLET BY MOUTH EVERY D AY TAKE ONE TABLET BY MOUTH EVERY DAY SOLD: 02/11/2021 [facility] Escitalopram 5 MG Oral Tablet [Lexapro] Lexapro 5 MG Lexapro 5 MG 12/15/2020 12:00:00 AM EST 1.0 {tablet} active Le xapro 5 MG eCW1 ([facility]) Escitalopram 5 MG Oral Tablet [Lexapro] Lexapro 5 MG Lexapro 5 MG 12/15/2020 12:00:00 AM EST 1.0 {tablet} active Le xapro 5 MG eCW1 ([facility]) Escitalopram 5 MG Oral Tablet ESCITALOPRAM OXALATE 12/15/2020 12 :00:00 AM EST tablet 30 TAKE ONE TABLET BY MOUTH EVERY D AY TAKE ONE TABLET BY MOUTH EVERY DAY SOLD: 03/09/2021 [facility] Escitalopram 5 MG Oral Tablet [Lexapro] Lexapro 5 MG Lexapro 5 MG 12/15/2020 12:00:00 AM EST 1.0 {tablet} active Le xapro 5 MG eCW1 ([facility]) Escitalopram 5 MG Oral Tablet [Lexapro] Lexapro 5 MG Lexapro 5 MG 12/15/2020 12:00:00 AM EST 1.0 {tablet} active Le xapro 5 MG eCW1 ([facility]) Escitalopram 5 MG Oral Tablet [Lexapro] Lexapro 5 MG Lexapro 5 MG 12/15/2020 12:00:00 AM EST 1.0 {tablet} active Le xapro 5 MG eCW1 ([facility]) Escitalopram 5 MG Oral Tablet [Lexapro] Lexapro 5 MG Lexapro 5 MG 12/15/2020 12:00:00 AM EST 1.0 {tablet} active Le xapro 5 MG eCW1 ([facility]) Escitalopram 5 MG Oral Tablet [Lexapro] Lexapro 5 MG Lexapro 5 MG 12/15/2020 12:00:00 AM EST 1.0 {tablet} active Le xapro 5 MG eCW1 ([facility]) montelukast 10 MG Oral Tablet MONTELUKAST SODIUM 12/07/2020 12:0 0:00 AM EST tablet 30 TAKE ONE TABLET BY MOUTH EVERY E VENING TAKE ONE TABLET BY MOUTH EVERY EVENING SOLD: 03/09/2021 [facility] montelukast 10 MG Oral Tablet MONTELUKAST SODIUM 12/07/2020 12:0 0:00 AM EST tablet 30 TAKE ONE TABLET BY MOUTH EVERY E VENING TAKE ONE TABLET BY MOUTH EVERY EVENING SOLD: 01/05/2021 [facility] montelukast 10 MG Oral Tablet MONTELUKAST SODIUM 12/07/2020 12:0 0:00 AM EST tablet 30 TAKE ONE TABLET BY MOUTH EVERY E VENING TAKE ONE TABLET BY MOUTH EVERY EVENING SOLD: 12/10/2020 [facility] montelukast 10 MG Oral Tablet MONTELUKAST SODIUM 12/07/2020 12:0 0:00 AM EST tablet 30 TAKE ONE TABLET BY MOUTH EVERY E VENING TAKE ONE TABLET BY MOUTH EVERY EVENING SOLD: 02/11/2021 [facility] 50 mg 11/18/2020 12:00:00 AM EST tablet 60 TAKE ONE TABLET BY MOUTH TWO TIMES A DAY TAKE ONE TABLET BY MOUTH TWO TIMES A DAY SOLD: 11/18/2020 [facility] 50 mg 11/18/2020 12:00:00 AM EST tablet 60 TAKE ONE TABLET BY MOUTH TWO TIMES A DAY TAKE ONE TABLET BY MOUTH TWO TIMES A DAY SOLD: 12/13/2020 [facility] 50 mg 11/18/2020 12:00:00 AM EST tablet 60 TAKE ONE TABLET BY MOUTH TWO TIMES A DAY TAKE ONE TABLET BY MOUTH TWO TIMES A DAY SOLD: 01/12/2021 [facility] 100 mg 11/17/2020 12:00:00 AM EST tablet 30 TAKE ONE TABLET BY MOUTH EVERY DAY AT BEDTIME TAKE ONE TABLET BY MOUTH EVERY DAY AT BEDTIME SOLD: 11/17/2020 [facility] 200 mg 11/16/2020 12:00:00 AM EST tablet 30 TAKE ONE TABLET BY MOUTH EVERY EVENING TAKE ONE TABLET BY MOUTH EVERY EVENING SOLD: 04/15/2021 [facility] 200 mg 11/16/2020 12:00:00 AM EST tablet 30 TAKE ONE TABLET BY MOUTH EVERY EVENING TAKE ONE TABLET BY MOUTH EVERY EVENING SOLD: 03/14/2021 [facility] 200 mg 11/16/2020 12:00:00 AM EST tablet 30 TAKE ONE TABLET BY MOUTH EVERY EVENING TAKE ONE TABLET BY MOUTH EVERY EVENING SOLD: 12/13/2020 [facility] 200 mg 11/16/2020 12:00:00 AM EST tablet 30 TAKE ONE TABLET BY MOUTH EVERY EVENING TAKE ONE TABLET BY MOUTH EVERY EVENING SOLD: 11/17/2020 [facility] 200 mg 11/16/2020 12:00:00 AM EST tablet 30 TAKE ONE TABLET BY MOUTH EVERY EVENING TAKE ONE TABLET BY MOUTH EVERY EVENING SOLD: 01/10/2021 [facility] 200 mg 11/16/2020 12:00:00 AM EST tablet 30 TAKE ONE TABLET BY MOUTH EVERY EVENING TAKE ONE TABLET BY MOUTH EVERY EVENING SOLD: 02/16/2021 [facility] 1 mg 11/11/2020 12:00:00 AM EST tablet 45 TAKE 1 & 1/2 TABLETS BY MOUTH ONCE DAILY AT BEDTIME NEEDED, MAXIMUM DAILY DOSE = 1 & 1/2 TABLETS TAKE 1 & 1/2 TABLETS BY MOUTH ONCE DAILY AT BEDTIME NEEDED, MAXIMUM DAILY DOSE = 1 & 1/2 TABLETS SOLD: 11/11/2020 [facility] 5 mg 11/09/2020 12:00:00 AM EST tablet 30 TAKE ONE TABLET BY MOUTH EVERY DAY IN CASE OF ACUTE ILLNESS, STOP TAKING WHEN ILLNESS IS RESOLVED TAKE ONE TABLET BY MOUTH EVERY DAY IN CASE OF ACUTE ILLNESS, STOP TAKING WHEN ILLNESS IS RESOLVED SOLD: 03/09/2021 [facility] 5 mg 11/09/2020 12:00:00 AM EST tablet 30 TAKE ONE TABLET BY MOUTH EVERY DAY IN CASE OF ACUTE ILLNESS, STOP TAKING WHEN ILLNESS IS RESOLVED TAKE ONE TABLET BY MOUTH EVERY DAY IN CASE OF ACUTE ILLNESS, STOP TAKING WHEN ILLNESS IS RESOLVED SOLD: 04/15/2021 [facility] 5 mg 11/09/2020 12:00:00 AM EST tablet 30 TAKE ONE TABLET BY MOUTH EVERY DAY IN CASE OF ACUTE ILLNESS, STOP TAKING WHEN ILLNESS IS RESOLVED TAKE ONE TABLET BY MOUTH EVERY DAY IN CASE OF ACUTE ILLNESS, STOP TAKING WHEN ILLNESS IS RESOLVED SOLD: 11/09/2020 [facility] Acyclovir 400 MG Oral Tablet ACYCLOVIR 10/19/2020 12:00:00 AM EST tabl et 60 TAKE ONE TABLET BY MOUTH TWICE A DAY TAKE ONE TABLET BY MOUTH TWICE A DAY SOLD: 11/22/2020 [facility] Acyclovir 400 MG Oral Tablet ACYCLOVIR 10/19/2020 12:00:00 AM EST tabl et 60 TAKE ONE TABLET BY MOUTH TWICE A DAY TAKE ONE TABLET BY MOUTH TWICE A DAY SOLD: 12/20/2020 [facility] Acyclovir 400 MG Oral Tablet ACYCLOVIR 10/19/2020 12:00:00 AM EST tabl et 60 TAKE ONE TABLET BY MOUTH TWICE A DAY TAKE ONE TABLET BY MOUTH TWICE A DAY SOLD: 10/22/2020 [facility] 0.5 mg/5 mL 10/09/2020 12:00:00 AM EST solution 600 TAKE 5 MLS BY MOUTH FOUR TIMES A DAY TAKE 5 MLS BY MOUTH FOUR TIMES A DAY SOLD: 10/10/2020 [facility] 2 % 10/08/2020 12:00:00 AM EST solution 500 SWISH AND SPIT 5ML BY MOUTH NEEDED SWISH AND SPIT 5ML BY MOUTH NEEDED SOLD: 10/10/2020 [facility] Hydroxychloroquine Sulfate 200 MG Oral Tablet HYDROXYCHLOROQ UINE SULFATE 10/07/2020 12:00:00 AM EST tablet 30 TAKE ONE TABLE T BY MOUTH EVERY DAY TAKE ONE TABLET BY MOUTH EVERY DAY SOLD: 12/07/2020 [facility] Hydroxychloroquine Sulfate 200 MG Oral Tablet HYDROXYCHLOROQ UINE SULFATE 10/07/2020 12:00:00 AM EST tablet 30 TAKE ONE TABLE T BY MOUTH EVERY DAY TAKE ONE TABLET BY MOUTH EVERY DAY SOLD: 01/05/2021 [facility] Hydroxychloroquine Sulfate 200 MG Oral Tablet HYDROXYCHLOROQ UINE SULFATE 10/07/2020 12:00:00 AM EST tablet 30 TAKE ONE TABLE T BY MOUTH EVERY DAY TAKE ONE TABLET BY MOUTH EVERY DAY SOLD: 02/02/2021 [facility] Hydroxychloroquine Sulfate 200 MG Oral Tablet HYDROXYCHLOROQ UINE SULFATE 10/07/2020 12:00:00 AM EST tablet 30 TAKE ONE TABLE T BY MOUTH EVERY DAY TAKE ONE TABLET BY MOUTH EVERY DAY SOLD: 10/08/2020 [facility] Hydroxychloroquine Sulfate 200 MG Oral Tablet HYDROXYCHLOROQ UINE SULFATE 10/07/2020 12:00:00 AM EST tablet 30 TAKE ONE TABLE T BY MOUTH EVERY DAY TAKE ONE TABLET BY MOUTH EVERY DAY SOLD: 11/03/2020 [facility] 1 mg 10/06/2020 12:00:00 AM EST tablet 45 TAKE 1 & 1/2 TABETS BY MOUTH ONCE DAILY AT BEDTIME NEEDED, MAXIMUM DAILY DOSE = 1 & 1/2 TABLETS TAKE 1 & 1/2 TABETS BY MOUTH ONCE DAILY AT BEDTIME NEEDED, MAXIMUM DAILY DOSE = 1 & 1/2 TABLETS SOLD: 10/08/2020 [facility] 0.125 mg 09/27/2020 12:00:00 AM EST tablet 90 TAKE ONE TABLET BY MOUTH EVERY MORNING AND TWO EVERY EVENING TAKE ONE TABLET BY MOUTH EVERY MORNING A ND TWO EVERY EVENING SOLD: 10/27/2020 [facility] 0.125 mg 09/27/2020 12:00:00 AM EST tablet 90 TAKE ONE TABLET BY MOUTH EVERY MORNING AND TWO EVERY EVENING TAKE ONE TABLET BY MOUTH EVERY MORNING A ND TWO EVERY EVENING SOLD: 09/27/2020 [facility] 0.125 mg 09/27/2020 12:00:00 AM EST tablet 90 TAKE ONE TABLET BY MOUTH EVERY MORNING AND TWO EVERY EVENING TAKE ONE TABLET BY MOUTH EVERY MORNING A ND TWO EVERY EVENING SOLD: 02/27/2021 [facility] 0.125 mg 09/27/2020 12:00:00 AM EST tablet 90 TAKE ONE TABLET BY MOUTH EVERY MORNING AND TWO EVERY EVENING TAKE ONE TABLET BY MOUTH EVERY MORNING A ND TWO EVERY EVENING SOLD: 11/22/2020 [facility] 0.125 mg 09/27/2020 12:00:00 AM EST tablet 90 TAKE ONE TABLET BY MOUTH EVERY MORNING AND TWO EVERY EVENING TAKE ONE TABLET BY MOUTH EVERY MORNING A ND TWO EVERY EVENING SOLD: 01/26/2021 [facility] 0.125 mg 09/27/2020 12:00:00 AM EST tablet 90 TAKE ONE TABLET BY MOUTH EVERY MORNING AND TWO EVERY EVENING TAKE ONE TABLET BY MOUTH EVERY MORNING A ND TWO EVERY EVENING SOLD: 12/20/2020 [facility] Cephalexin 500 MG Oral Capsule [Keflex] Keflex 500 MG Keflex 500 MG 09/22/2020 12:00:00 AM EST 1.0 {capsule} active K eflex 500 MG eCW1 ([facility]) 15 mg 09/22/2020 12:00:00 AM EST tablet extended release 24hr 30 TAKE ONE TABLET BY MOUTH EVERY DAY AT BEDTIME TAKE ONE TABLET BY MOUTH EVERY DAY AT BEDTIME SOLD: 04/07/2021 [facility] Cephalexin 500 MG Oral Capsule [Keflex] Keflex 500 MG Keflex 500 MG 09/22/2020 12:00:00 AM EST 1.0 {capsule} active K eflex 500 MG eCW1 ([facility]) 15 mg 09/22/2020 12:00:00 AM EST tablet extended release 24hr 30 TAKE ONE TABLET BY MOUTH EVERY DAY AT BEDTIME TAKE ONE TABLET BY MOUTH EVERY DAY AT BEDTIME SOLD: 02/11/2021 [facility] Cephalexin 500 MG Oral Capsule CEPHALEXIN 09/22/2020 12:00:00 AM EST capsule 10 TAKE ONE CAPSULE BY MOUTH TWICE A DAY FOR 5 DAYS TAKE ONE CAPSULE BY MOUTH TWICE A DAY FOR 5 DAYS SOLD: 09/22/2020 [facility] Cephalexin 500 MG Oral Capsule [Keflex] Keflex 500 MG Keflex 500 MG 09/22/2020 12:00:00 AM EST 1.0 {capsule} active K eflex 500 MG eCW1 ([facility]) 15 mg 09/22/2020 12:00:00 AM EST tablet extended release 24hr 30 TAKE ONE TABLET BY MOUTH EVERY DAY AT BEDTIME TAKE ONE TABLET BY MOUTH EVERY DAY AT BEDTIME SOLD: 01/10/2021 [facility] 15 mg 09/22/2020 12:00:00 AM EST tablet extended release 24hr 30 TAKE ONE TABLET BY MOUTH EVERY DAY AT BEDTIME TAKE ONE TABLET BY MOUTH EVERY DAY AT BEDTIME SOLD: 11/10/2020 [facility] Cephalexin 500 MG Oral Capsule [Keflex] Keflex 500 MG Keflex 500 MG 09/22/2020 12:00:00 AM EST 1.0 {capsule} active K eflex 500 MG eCW1 ([facility]) 15 mg 09/22/2020 12:00:00 AM EST tablet extended release 24hr 30 TAKE ONE TABLET BY MOUTH EVERY DAY AT BEDTIME TAKE ONE TABLET BY MOUTH EVERY DAY AT BEDTIME SOLD: 12/07/2020 [facility] Cephalexin 500 MG Oral Capsule [Keflex] Keflex 500 MG Keflex 500 MG 09/22/2020 12:00:00 AM EST 1.0 {capsule} active K eflex 500 MG eCW1 ([facility]) Cephalexin 500 MG Oral Capsule [Keflex] Keflex 500 MG Keflex 500 MG 09/22/2020 12:00:00 AM EST 1.0 {capsule} active K eflex 500 MG eCW1 ([facility]) 15 mg 09/22/2020 12:00:00 AM EST tablet extended release 24hr 30 TAKE ONE TABLET BY MOUTH EVERY DAY AT BEDTIME TAKE ONE TABLET BY MOUTH EVERY DAY AT BEDTIME SOLD: 06/06/2021 [facility] 15 mg 09/22/2020 12:00:00 AM EST tablet extended release 24hr 30 TAKE ONE TABLET BY MOUTH EVERY DAY AT BEDTIME TAKE ONE TABLET BY MOUTH EVERY DAY AT BEDTIME SOLD: 07/06/2021 [facility] 15 mg 09/22/2020 12:00:00 AM EST tablet extended release 24hr 30 TAKE ONE TABLET BY MOUTH EVERY DAY AT BEDTIME TAKE ONE TABLET BY MOUTH EVERY DAY AT BEDTIME SOLD: 08/10/2021 [facility] Cephalexin 500 MG Oral Capsule [Keflex] Keflex 500 MG Keflex 500 MG 09/22/2020 12:00:00 AM EST 1.0 {capsule} active K eflex 500 MG eCW1 ([facility]) 15 mg 09/22/2020 12:00:00 AM EST tablet extended release 24hr 30 TAKE ONE TABLET BY MOUTH EVERY DAY AT BEDTIME TAKE ONE TABLET BY MOUTH EVERY DAY AT BEDTIME SOLD: 05/11/2021 [facility] Cephalexin 500 MG Oral Capsule [Keflex] Keflex 500 MG Keflex 500 MG 09/22/2020 12:00:00 AM EST 1.0 {capsule} active K eflex 500 MG eCW1 ([facility]) 15 mg 09/22/2020 12:00:00 AM EST tablet extended release 24hr 30 TAKE ONE TABLET BY MOUTH EVERY DAY AT BEDTIME TAKE ONE TABLET BY MOUTH EVERY DAY AT BEDTIME SOLD: 09/22/2020 [facility] 15 mg 09/22/2020 12:00:00 AM EST tablet extended release 24hr 30 TAKE ONE TABLET BY MOUTH EVERY DAY AT BEDTIME TAKE ONE TABLET BY MOUTH EVERY DAY AT BEDTIME SOLD: 03/09/2021 [facility] 15 mg 09/17/2020 12:00:00 AM EST tablet extended release 24hr 30 TAKE ONE TABLET BY MOUTH EVERY DAY - SWALLOW WHOLE, DO NOT CRUSH, BREAK, OR CHEW TAKE ONE TABLET BY MOUTH EVERY DAY - SWALLOW WHOLE, DO NOT CRUSH, BREAK, OR CHEW SOLD: 09/17/2020 [facility] BLOOD SUGAR DIAGNOSTIC 09/16/2020 12:00:00 AM EST strip 100 TEST THREE TIMES A DAY TEST THREE TIMES A DAY SOLD: 12/22/2020 [facility] BLOOD SUGAR DIAGNOSTIC 09/16/2020 12:00:00 AM EST strip 100 TEST THREE TIMES A DAY TEST THREE TIMES A DAY SOLD: 09/16/2020 [facility] BLOOD SUGAR DIAGNOSTIC 09/16/2020 12:00:00 AM EST strip 100 TEST THREE TIMES A DAY TEST THREE TIMES A DAY SOLD: 10/18/2020 [facility] 0.5 % 09/08/2020 12:00:00 AM EST drops 5 INSTILL ONE DROP INTO LEFT EYE FOUR TIMES A DAY INSTILL ONE DROP INTO LEFT EYE FOUR TIMES A DAY SOLD: 09/09/2020 [facility] 1 mg 09/06/2020 12:00:00 AM EDT tablet 45 TAKE ONE AND ONE-HALF TABLETS BY MOUTH EVERY DAY AT BEDTIME NEEDED MAXIMUM DAILY DOSE = 1 & 1/2 TABLETS TAKE ONE AND ONE-HALF TABLETS BY MOUTH EVERY DAY AT BEDTIME NEEDED MAXIMUM DAILY DOSE = 1 & 1/2 TABLETS SOLD: 09/06/2020 [facility] 5 mg 09/04/2020 12:00:00 AM EDT tablet 30 TAKE ONE TABLET BY MOUTH EVERY DAY TAKE ONE TABLET BY MOUTH EVERY DAY SOLD: 09/06/2020 [facility] 5 mg 09/04/2020 12:00:00 AM EDT tablet 30 TAKE ONE TABLET BY MOUTH EVERY DAY TAKE ONE TABLET BY MOUTH EVERY DAY SOLD: 11/03/2020 [facility] 5 mg 09/04/2020 12:00:00 AM EDT tablet 30 TAKE ONE TABLET BY MOUTH EVERY DAY TAKE ONE TABLET BY MOUTH EVERY DAY SOLD: 10/06/2020 [facility] 5 mg 09/04/2020 12:00:00 AM EDT tablet 30 TAKE ONE TABLET BY MOUTH EVERY DAY TAKE ONE TABLET BY MOUTH EVERY DAY SOLD: 12/01/2020 [facility] 5 mg 09/01/2020 12:00:00 AM EDT tablet 30 TAKE ONE TABLET BY MOUTH EVERY DAY IN CASE OF ACUTE ILLNESS, STOP TAKING ONCE ILLNESS IS RESOLVED TAKE ONE TABLET BY MOUTH EVERY DAY IN CASE OF ACUTE ILLNESS, STOP TAKING ONCE ILLNESS IS RESOLVED SOLD: 09/01/2020 [facility] 12.5 mg 08/28/2020 12:00:00 AM EDT tablet 30 TAKE ONE TABLET BY MOUTH EVERY 6 HOURS NEEDED FOR NAUSEA AND VOMITING TAKE ONE TABLET BY MOUTH EVERY 6 HOURS NEEDED FOR NAUSEA AND VOMITING SOLD: 09/01/2020 [facility] 0.5 mg 08/26/2020 12:00:00 AM EDT tablet 28 TAKE ONE TABLET BY MOUTH AT BEDTIME NEEDED , MAXIMUM DAILY DOSE = 1 TABLET TAKE ONE TABLET BY MOUTH AT BEDTIME NEEDED , MAXIMUM DAILY DOSE = 1 TABLET SOLD: 08/26/2020 [facility] 0.5 % 08/21/2020 12:00:00 AM EDT drops 5 INSTILL ONE DROP INTO RIGHT EYE FOUR TIMES A DAY INSTILL ONE DROP INTO RIGHT EYE FOUR TIMES A DAY SOLD: 08/22/2020 [facility] Ondansetron 4 MG Disintegrating Oral Tablet Ondansetron 4 MG 08/18/2020 12:00:00 AM EDT 1.0 {tablet_on_the_tongue_and_allow_to_dissolve} active Ondansetron 4 MG W ([facility]) Ondansetron 4 MG Disintegrating Oral Tablet Ondansetron 4 MG 08/18/2020 12:00:00 AM EDT 1.0 {tablet_on_the_tongue_and_allow_to_dissolve} active Ondansetron 4 MG [facility] ([facility]) Ondansetron 4 MG Disintegrating Oral Tablet Ondansetron 4 MG 08/18/2020 12:00:00 AM EDT 1.0 {tablet_on_the_tongue_and_allow_to_dissolve} active Ondansetron 4 MG eCW1 ([facility]) Ondansetron 4 MG Disintegrating Oral Tablet Ondansetron 4 MG 08/18/2020 12:00:00 AM EDT 1.0 {tablet_on_the_tongue_and_allow_to_dissolve} active Ondansetron 4 MG eCW1 ([facility]) Ondansetron 4 MG Disintegrating Oral Tablet Ondansetron 4 MG 08/18/2020 12:00:00 AM EDT 1.0 {tablet_on_the_tongue_and_allow_to_dissolve} active Ondansetron 4 MG eCW1 ([facility]) Ondansetron 4 MG Disintegrating Oral Tablet Ondansetron 4 MG 08/18/2020 12:00:00 AM EDT 1.0 {tablet_on_the_tongue_and_allow_to_dissolve} active Ondansetron 4 MG eCW1 ([facility]) Ondansetron 4 MG Disintegrating Oral Tablet Ondansetron 4 MG 08/18/2020 12:00:00 AM EDT 1.0 {tablet_on_the_tongue_and_allow_to_dissolve} active Ondansetron 4 MG eCW1 ([facility]) Ondansetron 4 MG Disintegrating Oral Tablet Ondansetron 4 MG 08/18/2020 12:00:00 AM EDT 1.0 {tablet_on_the_tongue_and_allow_to_dissolve} active Ondansetron 4 MG eCW1 ([facility]) Ondansetron 4 MG Disintegrating Oral Tablet Ondansetron 4 MG 08/18/2020 12:00:00 AM EDT 1.0 {tablet_on_the_tongue_and_allow_to_dissolve} active Ondansetron 4 MG eCW1 ([facility]) Ondansetron 4 MG Disintegrating Oral Tablet Ondansetron 4 MG 08/18/2020 12:00:00 AM EDT 1.0 {tablet_on_the_tongue_and_allow_to_dissolve} active Ondansetron 4 MG eCW1 ([facility]) Ondansetron 4 MG Disintegrating Oral Tablet Ondansetron 4 MG 08/18/2020 12:00:00 AM EDT 1.0 {tablet_on_the_tongue_and_allow_to_dissolve} active Ondansetron 4 MG eCW1 ([facility]) Ondansetron 4 MG Disintegrating Oral Tablet Ondansetron 4 MG 08/18/2020 12:00:00 AM EDT 1.0 {tablet_on_the_tongue_and_allow_to_dissolve} active Ondansetron 4 MG eCW1 ([facility]) Ondansetron 4 MG Disintegrating Oral Tablet Ondansetron 4 MG 08/18/2020 12:00:00 AM EDT 1.0 {tablet_on_the_tongue_and_allow_to_dissolve} active Ondansetron 4 MG eCW1 ([facility]) Ondansetron 4 MG Disintegrating Oral Tablet Ondansetron 4 MG 08/18/2020 12:00:00 AM EDT 1.0 {tablet_on_the_tongue_and_allow_to_dissolve} active Ondansetron 4 MG eCW1 ([facility]) Ondansetron 4 MG Disintegrating Oral Tablet Ondansetron 4 MG 08/18/2020 12:00:00 AM EDT 1.0 {tablet_on_the_tongue_and_allow_to_dissolve} active Ondansetron 4 MG eCW1 ([facility]) Ondansetron 4 MG Disintegrating Oral Tablet Ondansetron 4 MG 08/18/2020 12:00:00 AM EDT 1.0 {tablet_on_the_tongue_and_allow_to_dissolve} active Ondansetron 4 MG eCW1 ([facility]) Ondansetron 4 MG Disintegrating Oral Tablet Ondansetron 4 MG 08/18/2020 12:00:00 AM EDT 1.0 {tablet_on_the_tongue_and_allow_to_dissolve} active Ondansetron 4 MG eCW1 ([facility]) 4 mg 08/18/2020 12:00:00 AM EDT tablet,disintegrating 4 5 DISSOLVE ONE TABLET ON TONGUE EVERY 8 HOURS NEEDED FOR NASUEA DISSOLVE ONE TABLET ON TONGUE EVERY 8 HOURS NEEDED FOR NASUEA SOLD: 08/18/2020 [facility] 160-4.5 mcg/actuation 08/12/2020 12:00:00 AM EDT HFA aerosol inhaler 10 INHALE 2 PUFFS BY MOUTH INTO LUNGS TWO TIMES A DAY INHALE 2 PUFFS BY MOUTH INTO LUNGS TWO TIMES A DAY SOLD: 08/13/2020 [facility] montelukast 10 MG Oral Tablet MONTELUKAST SODIUM 08/11/2020 12:0 0:00 AM EDT tablet 30 TAKE ONE TABLET BY MOUTH EVERY N IGHT TAKE ONE TABLET BY MOUTH EVERY NIGHT SOLD: 11/09/2020 [facility] montelukast 10 MG Oral Tablet MONTELUKAST SODIUM 08/11/2020 12:0 0:00 AM EDT tablet 30 TAKE ONE TABLET BY MOUTH EVERY N IGHT TAKE ONE TABLET BY MOUTH EVERY NIGHT SOLD: 09/06/2020 [facility] montelukast 10 MG Oral Tablet MONTELUKAST SODIUM 08/11/2020 12:0 0:00 AM EDT tablet 30 TAKE ONE TABLET BY MOUTH EVERY N IGHT TAKE ONE TABLET BY MOUTH EVERY NIGHT SOLD: 10/06/2020 [facility] montelukast 10 MG Oral Tablet MONTELUKAST SODIUM 08/11/2020 12:0 0:00 AM EDT tablet 30 TAKE ONE TABLET BY MOUTH EVERY N IGHT TAKE ONE TABLET BY MOUTH EVERY NIGHT SOLD: 08/13/2020 [facility] 1 mg 07/30/2020 12:00:00 AM EDT tablet 28 TAKE ONE TABLET BY MOUTH EVERY DAY NEEDED FOR ANXIETY, MAXIMUM DAILY DOSE = ONE TABLET TAKE ONE TABLET BY MOUTH EVERY DAY NEEDED FOR ANXIETY, MAXIMUM DAILY DOSE = ONE TABLET SOLD: 07/31/2020 [facility] Cephalexin 500 MG Oral Capsule CEPHALEXIN 07/28/2020 12:00:00 AM EDT capsule 14 TAKE ONE CAPSULE BY MOUTH TWICE A DAY TAKE ONE CAPSULE BY MO UT TWICE A DAY SOLD: 07/28/2020 [facility] Acyclovir 400 MG Oral Tablet ACYCLOVIR 07/22/2020 12:00:00 AM EDT tabl et 60 TAKE ONE TABLET BY MOUTH TWICE A DAY TAKE ONE TABLET BY MOUTH TWICE A DAY SOLD: 07/24/2020 [facility] Acyclovir 400 MG Oral Tablet ACYCLOVIR 07/22/2020 12:00:00 AM EDT tabl et 60 TAKE ONE TABLET BY MOUTH TWICE A DAY TAKE ONE TABLET BY MOUTH TWICE A DAY SOLD: 09/22/2020 [facility] Acyclovir 400 MG Oral Tablet ACYCLOVIR 07/22/2020 12:00:00 AM EDT tabl et 60 TAKE ONE TABLET BY MOUTH TWICE A DAY TAKE ONE TABLET BY MOUTH TWICE A DAY SOLD: 08/25/2020 [facility] 50 mg 07/20/2020 12:00:00 AM EDT tablet 60 TAKE ONE TABLET BY MOUTH TWICE A DAY TAKE ONE TABLET BY MOUTH TWICE A DAY SOLD: 07/24/2020 [facility] 50 mg 07/20/2020 12:00:00 AM EDT tablet 60 TAKE ONE TABLET BY MOUTH TWICE A DAY TAKE ONE TABLET BY MOUTH TWICE A DAY SOLD: 10/18/2020 [facility] 50 mg 07/20/2020 12:00:00 AM EDT tablet 60 TAKE ONE TABLET BY MOUTH TWICE A DAY TAKE ONE TABLET BY MOUTH TWICE A DAY SOLD: 07/06/2021 [facility] 50 mg 07/20/2020 12:00:00 AM EDT tablet 60 TAKE ONE TABLET BY MOUTH TWICE A DAY TAKE ONE TABLET BY MOUTH TWICE A DAY SOLD: 06/06/2021 [facility] 50 mg 07/20/2020 12:00:00 AM EDT tablet 60 TAKE ONE TABLET BY MOUTH TWICE A DAY TAKE ONE TABLET BY MOUTH TWICE A DAY SOLD: 01/05/2021 [facility] 50 mg 07/20/2020 12:00:00 AM EDT tablet 60 TAKE ONE TABLET BY MOUTH TWICE A DAY TAKE ONE TABLET BY MOUTH TWICE A DAY SOLD: 11/22/2020 [facility] 50 mg 07/20/2020 12:00:00 AM EDT tablet 60 TAKE ONE TABLET BY MOUTH TWICE A DAY TAKE ONE TABLET BY MOUTH TWICE A DAY SOLD: 02/02/2021 [facility] 50 mg 07/20/2020 12:00:00 AM EDT tablet 60 TAKE ONE TABLET BY MOUTH TWICE A DAY TAKE ONE TABLET BY MOUTH TWICE A DAY SOLD: 09/22/2020 [facility] 50 mg 07/20/2020 12:00:00 AM EDT tablet 60 TAKE ONE TABLET BY MOUTH TWICE A DAY TAKE ONE TABLET BY MOUTH TWICE A DAY SOLD: 04/07/2021 [facility] 50 mg 07/20/2020 12:00:00 AM EDT tablet 60 TAKE ONE TABLET BY MOUTH TWICE A DAY TAKE ONE TABLET BY MOUTH TWICE A DAY SOLD: 03/09/2021 [facility] 50 mg 07/20/2020 12:00:00 AM EDT tablet 60 TAKE ONE TABLET BY MOUTH TWICE A DAY TAKE ONE TABLET BY MOUTH TWICE A DAY SOLD: 05/04/2021 [facility] 50 mg 07/20/2020 12:00:00 AM EDT tablet 60 TAKE ONE TABLET BY MOUTH TWICE A DAY TAKE ONE TABLET BY MOUTH TWICE A DAY SOLD: 08/25/2020 [facility] 240 mg 07/18/2020 12:00:00 AM EDT capsule,ext.rel 24h deg radable 90 TAKE ONE CAPSULE BY MOUTH EVERY DAY TAKE ONE CAPSULE BY MOUTH EVERY DAY SOLD: 10/06/2020 [facility] 240 mg 07/18/2020 12:00:00 AM EDT capsule,ext.rel 24h deg radable 30 TAKE ONE CAPSULE BY MOUTH EVERY DAY TAKE ONE CAPSULE BY MOUTH EVERY DAY SOLD: 03/09/2021 [facility] 240 mg 07/18/2020 12:00:00 AM EDT capsule,ext.rel 24h deg radable 30 TAKE ONE CAPSULE BY MOUTH EVERY DAY TAKE ONE CAPSULE BY MOUTH EVERY DAY SOLD: 04/07/2021 [facility] 240 mg 07/18/2020 12:00:00 AM EDT capsule,ext.rel 24h deg radable 30 TAKE ONE CAPSULE BY MOUTH EVERY DAY TAKE ONE CAPSULE BY MOUTH EVERY DAY SOLD: 02/11/2021 [facility] 240 mg 07/18/2020 12:00:00 AM EDT capsule,ext.rel 24h deg radable 90 TAKE ONE CAPSULE BY MOUTH EVERY DAY TAKE ONE CAPSULE BY MOUTH EVERY DAY SOLD: 07/20/2020 [facility] 240 mg 07/18/2020 12:00:00 AM EDT capsule,ext.rel 24h deg radable 30 TAKE ONE CAPSULE BY MOUTH EVERY DAY TAKE ONE CAPSULE BY MOUTH EVERY DAY SOLD: 05/11/2021 [facility] 240 mg 07/18/2020 12:00:00 AM EDT capsule,ext.rel 24h deg radable 30 TAKE ONE CAPSULE BY MOUTH EVERY DAY TAKE ONE CAPSULE BY MOUTH EVERY DAY SOLD: 01/05/2021 [facility] 240 mg 07/18/2020 12:00:00 AM EDT capsule,ext.rel 24h deg radable 30 TAKE ONE CAPSULE BY MOUTH EVERY DAY TAKE ONE CAPSULE BY MOUTH EVERY DAY SOLD: 06/08/2021 [facility] 800-160 mg 06/29/2020 12:00:00 AM EDT tablet 12 TAKE ONE TABLET BY MOUTH THREE TIMES A WEEK TAKE ONE TABLET BY MOUTH THREE TIMES A WEEK SOLD: 06/30/2020 [facility] 800-160 mg 06/29/2020 12:00:00 AM EDT tablet 12 TAKE ONE TABLET BY MOUTH THREE TIMES A WEEK TAKE ONE TABLET BY MOUTH THREE TIMES A WEEK SOLD: 12/13/2020 [facility] 800-160 mg 06/29/2020 12:00:00 AM EDT tablet 12 TAKE ONE TABLET BY MOUTH THREE TIMES A WEEK TAKE ONE TABLET BY MOUTH THREE TIMES A WEEK SOLD: 11/15/2020 [facility] Sulfamethoxazole 800 MG / Trimethoprim 160 MG Oral Tab let 800-160 mg SULFAMETHOXAZOLE/TRIMETHOPRIM 06/29/2020 12:00:00 AM EDT tablet 12 TAKE ONE TABLET BY MOUTH THREE TIMES A WEEK TAKE ONE TABLET BY MOUTH THREE TIMES A WEEK SOLD: 09/22/2020 [facility] Sulfamethoxazole 800 MG / Trimethoprim 160 MG Oral Tab let 800-160 mg SULFAMETHOXAZOLE/TRIMETHOPRIM 06/29/2020 12:00:00 AM EDT tablet 12 TAKE ONE TABLET BY MOUTH THREE TIMES A WEEK TAKE ONE TABLET BY MOUTH THREE TIMES A WEEK SOLD: 08/25/2020 [facility] 800-160 mg 06/29/2020 12:00:00 AM EDT tablet 12 TAKE ONE TABLET BY MOUTH THREE TIMES A WEEK TAKE ONE TABLET BY MOUTH THREE TIMES A WEEK SOLD: 07/26/2020 [facility] 800-160 mg 06/29/2020 12:00:00 AM EDT tablet 12 TAKE ONE TABLET BY MOUTH THREE TIMES A WEEK TAKE ONE TABLET BY MOUTH THREE TIMES A WEEK SOLD: 10/18/2020 [facility] 10 gram/15 mL 06/26/2020 12:00:00 AM EDT solution 120 TAKE 30ML BY MOUTH THREE TIMES A DAY NEEDED TAKE 30ML BY MOUTH THREE TIMES A DAY NEEDED SOLD: 06/28/2020 [facility] 1 mg 06/26/2020 12:00:00 AM EDT tablet 28 TAKE ONE TABLET BY MOUTH EVERY DAY NEEDED, MAXIMUM DAILY DOSE = ONE TABLET TAKE ONE TABLET BY MOUTH EVERY DAY NEEDED, MAXIMUM DAILY DOSE = ONE TABLET SOLD: 06/28/2020 [facility] Cyclobenzaprine hydrochloride 10 MG Oral Tablet CYCLOBENZAPR INE HCL 06/26/2020 12:00:00 AM EDT tablet 60 TAKE ONE TABLET BY MOUTH THREE TIMES A DAY NEEDED TAKE ONE TABLET BY MOUTH THREE TIMES A DAY NEEDED SOLD: 11/22/2020 [facility] Cyclobenzaprine hydrochloride 10 MG Oral Tablet CYCLOBENZAPR INE HCL 06/26/2020 12:00:00 AM EDT tablet 60 TAKE ONE TABLET BY MOUTH THREE TIMES A DAY NEEDED TAKE ONE TABLET BY MOUTH THREE TIMES A DAY NEEDED SOLD: 10/08/2020 [facility] Cyclobenzaprine hydrochloride 10 MG Oral Tablet CYCLOBENZAPR INE HCL 06/26/2020 12:00:00 AM EDT tablet 60 TAKE ONE TABLET BY MOUTH THREE TIMES A DAY NEEDED TAKE ONE TABLET BY MOUTH THREE TIMES A DAY NEEDED SOLD: 06/28/2020 [facility] 100 unit/mL 05/25/2020 12:00:00 AM EDT insulin pen 15 INJECT THREE TIMES A DAY NEEDED BEFORE MEALS BASED ON SLIDING SCALE, MAXIMUM DAILY DOSE = 20 UNITS INJECT THREE TIMES A DAY NEEDED BEFOR E MEALS BASED ON SLIDING SCALE, MAXIMUM DAILY DOSE = 20 UNITS SOLD: 11/15/2020 [facility] 300 mg 05/21/2020 12:00:00 AM EDT capsule 30 TAKE ONE CAPSULE BY MOUTH EVERY NIGHT TAKE ONE CAPSULE BY MOUTH EVERY NIGHT SOLD: 12/20/2020 [facility] 300 mg 05/21/2020 12:00:00 AM EDT capsule 30 TAKE ONE CAPSULE BY MOUTH EVERY NIGHT TAKE ONE CAPSULE BY MOUTH EVERY NIGHT SOLD: 01/18/2021 [facility] 300 mg 05/21/2020 12:00:00 AM EDT capsule 30 TAKE ONE CAPSULE BY MOUTH EVERY NIGHT TAKE ONE CAPSULE BY MOUTH EVERY NIGHT SOLD: 09/22/2020 [facility] 300 mg 05/21/2020 12:00:00 AM EDT capsule 30 TAKE ONE CAPSULE BY MOUTH EVERY NIGHT TAKE ONE CAPSULE BY MOUTH EVERY NIGHT SOLD: 02/16/2021 [facility] 300 mg 05/21/2020 12:00:00 AM EDT capsule 30 TAKE ONE CAPSULE BY MOUTH EVERY NIGHT TAKE ONE CAPSULE BY MOUTH EVERY NIGHT SOLD: 08/25/2020 [facility] 300 mg 05/21/2020 12:00:00 AM EDT capsule 30 TAKE ONE CAPSULE BY MOUTH EVERY NIGHT TAKE ONE CAPSULE BY MOUTH EVERY NIGHT SOLD: 2021 [facility] 300 mg 05/21/2020 12:00:00 AM EDT capsule 30 TAKE ONE CAPSULE BY MOUTH EVERY NIGHT TAKE ONE CAPSULE BY MOUTH EVERY NIGHT SOLD: 07/24/2020 [facility] 300 mg 05/21/2020 12:00:00 AM EDT capsule 30 TAKE ONE CAPSULE BY MOUTH EVERY NIGHT TAKE ONE CAPSULE BY MOUTH EVERY NIGHT SOLD: 04/20/2021 [facility] 300 mg 05/21/2020 12:00:00 AM EDT capsule 30 TAKE ONE CAPSULE BY MOUTH EVERY NIGHT TAKE ONE CAPSULE BY MOUTH EVERY NIGHT SOLD: 10/18/2020 [facility] 300 mg 05/21/2020 12:00:00 AM EDT capsule 30 TAKE ONE CAPSULE BY MOUTH EVERY NIGHT TAKE ONE CAPSULE BY MOUTH EVERY NIGHT SOLD: 05/20/2021 [facility] 300 mg 05/21/2020 12:00:00 AM EDT capsule 30 TAKE ONE CAPSULE BY MOUTH EVERY NIGHT TAKE ONE CAPSULE BY MOUTH EVERY NIGHT SOLD: 11/17/2020 [facility] 200 mg 05/19/2020 12:00:00 AM EDT tablet 30 TAKE ONE TABLET BY MOUTH EVERY EVENING TAKE ONE TABLET BY MOUTH EVERY EVENING SOLD: 08/18/2020 [facility] 200 mg 05/19/2020 12:00:00 AM EDT tablet 30 TAKE ONE TABLET BY MOUTH EVERY EVENING TAKE ONE TABLET BY MOUTH EVERY EVENING SOLD: 09/16/2020 [facility] 200 mg 05/19/2020 12:00:00 AM EDT tablet 30 TAKE ONE TABLET BY MOUTH EVERY EVENING TAKE ONE TABLET BY MOUTH EVERY EVENING SOLD: 10/18/2020 [facility] 200 mg 05/19/2020 12:00:00 AM EDT tablet 30 TAKE ONE TABLET BY MOUTH EVERY EVENING TAKE ONE TABLET BY MOUTH EVERY EVENING SOLD: 07/24/2020 [facility] 5 mg 05/15/2020 12:00:00 AM EDT tablet 30 TAKE ONE TABLET BY MOUTH EVERY DAY TAKE ONE TABLET BY MOUTH EVERY DAY SOLD: 08/04/2020 [facility] 5 mg 05/15/2020 12:00:00 AM EDT tablet 30 TAKE ONE TABLET BY MOUTH EVERY DAY TAKE ONE TABLET BY MOUTH EVERY DAY SOLD: 07/08/2020 [facility] 2 mg 05/12/2020 12:00:00 AM EDT tablet 90 TAKE ONE TABLET BY MOUTH THREE TIMES A DAY BEFORE MEALS TAKE ONE TABLET BY MOUTH THREE TIMES A D AY BEFORE MEALS SOLD: 07/15/2020 [facility] 2 mg 05/12/2020 12:00:00 AM EDT tablet 90 TAKE ONE TABLET BY MOUTH THREE TIMES A DAY BEFORE MEALS TAKE ONE TABLET BY MOUTH THREE TIMES A D AY BEFORE MEALS SOLD: 11/15/2020 [facility] 2 mg 05/12/2020 12:00:00 AM EDT tablet 90 TAKE ONE TABLET BY MOUTH THREE TIMES A DAY BEFORE MEALS TAKE ONE TABLET BY MOUTH THREE TIMES A D AY BEFORE MEALS SOLD: 09/01/2020 [facility] 2 mg 05/12/2020 12:00:00 AM EDT tablet 90 TAKE ONE TABLET BY MOUTH THREE TIMES A DAY BEFORE MEALS TAKE ONE TABLET BY MOUTH THREE TIMES A D AY BEFORE MEALS SOLD: 10/06/2020 [facility] 28 gauge 05/02/2020 12:00:00 AM EDT misc 100 USE THREE TIMES A DAY USE THREE TIMES A DAY SOLD: 07/15/2020 [facility] 50 mg 04/21/2020 12:00:00 AM EDT tablet 60 TAKE ONE TABLET BY MOUTH EVERY DAY TAKE ONE TABLET BY MOUTH EVERY DAY SOLD: 10/18/2020 [facility] montelukast 10 MG Oral Tablet MONTELUKAST SODIUM 04/21/2020 12:0 0:00 AM EDT tablet 30 TAKE ONE TABLET BY MOUTH EVERY D AY AT BEDTIME TAKE ONE TABLET BY MOUTH EVERY DAY AT BEDTIME SOLD: 07/15/2020 [facility] 50 mg 04/21/2020 12:00:00 AM EDT tablet 60 TAKE ONE TABLET BY MOUTH EVERY DAY TAKE ONE TABLET BY MOUTH EVERY DAY SOLD: 08/18/2020 [facility] 5 mg 04/15/2020 12:00:00 AM EDT tablet 90 TAKE 2 TABLETS BY MOUTH AT BEDTIME MAY INCREASE TO 2 IF NO IMPROVEMENT AFTER 1ST NIGHT TAKE 2 TABLETS BY MOUTH AT BEDTIME MAY INCREASE TO 2 IF NO IMPROVEMENT AFTER 1ST NIGHT SOLD: 10/06/2020 [facility] 3 ML Insulin Glargine 100 UNT/ML Pen Injector [Lantus] 100 unit/mL (3 mL) INSULIN GLARGINE,HUM.REC.ANLOG 04/09/2020 12:00:00 AM EDT insulin pen 15 INJECT 26 UNITS UNDER THE SKIN EVERY NIGHT INJECT 26 UNITS UNDER THE SKIN EVERY NIGHT SOLD: 03/09/2021 [facility] 32 gauge x 1/4" 04/09/2020 12:00:00 AM EDT needle 100 USE DIRECTED THREE TIMES A DAY USE DIRECTED THREE TIMES A DAY SOLD: 09/16/2020 [facility] 28 gauge 04/09/2020 12:00:00 AM EDT misc 100 TEST THREE TIMES A DAY TEST THREE TIMES A DAY SOLD: 09/16/2020 [facility] 100 unit/mL (3 mL) 04/09/2020 12:00:00 AM EDT insulin pen 15 INJECT 26 UNITS UNDER THE SKIN EVERY NIGHT INJECT 26 UNITS UNDER THE SKIN EVERY NIGHT SOLD: 07/24/2020 [facility] 100 mg 04/06/2020 12:00:00 AM EDT tablet 30 TAKE ONE TABLET BY MOUTH EVERY DAY AT BEDTIME TAKE ONE TABLET BY MOUTH EVERY DAY AT BEDTIME SOLD: 08/25/2020 [facility] 100 mg 04/06/2020 12:00:00 AM EDT tablet 30 TAKE ONE TABLET BY MOUTH EVERY DAY AT BEDTIME TAKE ONE TABLET BY MOUTH EVERY DAY AT BEDTIME SOLD: 09/22/2020 [facility] 100 mg 04/06/2020 12:00:00 AM EDT tablet 30 TAKE ONE TABLET BY MOUTH EVERY DAY AT BEDTIME TAKE ONE TABLET BY MOUTH EVERY DAY AT BEDTIME SOLD: 06/28/2020 [facility] 100 mg 04/06/2020 12:00:00 AM EDT tablet 30 TAKE ONE TABLET BY MOUTH EVERY DAY AT BEDTIME TAKE ONE TABLET BY MOUTH EVERY DAY AT BEDTIME SOLD: 01/18/2021 [facility] 100 mg 04/06/2020 12:00:00 AM EDT tablet 30 TAKE ONE TABLET BY MOUTH EVERY DAY AT BEDTIME TAKE ONE TABLET BY MOUTH EVERY DAY AT BEDTIME SOLD: 11/22/2020 [facility] 100 mg 04/06/2020 12:00:00 AM EDT tablet 30 TAKE ONE TABLET BY MOUTH EVERY DAY AT BEDTIME TAKE ONE TABLET BY MOUTH EVERY DAY AT BEDTIME SOLD: 12/20/2020 [facility] 100 mg 04/06/2020 12:00:00 AM EDT tablet 30 TAKE ONE TABLET BY MOUTH EVERY DAY AT BEDTIME TAKE ONE TABLET BY MOUTH EVERY DAY AT BEDTIME SOLD: 07/26/2020 [facility] 100 mg 04/06/2020 12:00:00 AM EDT tablet 30 TAKE ONE TABLET BY MOUTH EVERY DAY AT BEDTIME TAKE ONE TABLET BY MOUTH EVERY DAY AT BEDTIME SOLD: 10/18/2020 [facility] 15 mg 03/20/2020 12:00:00 AM EDT tablet extended release 24hr 30 TAKE ONE TABLET BY MOUTH AT BEDTIME TAKE ONE TABLET BY MOUTH AT BEDTIME SOLD: 07/24/2020 [facility] 15 mg 03/20/2020 12:00:00 AM EDT tablet extended release 24hr 30 TAKE ONE TABLET BY MOUTH AT BEDTIME TAKE ONE TABLET BY MOUTH AT BEDTIME SOLD: 07/15/2020 [facility] 0.125 mg 03/10/2020 12:00:00 AM EDT tablet 90 TAKE ONE TABLET BY MOUTH EVERY MORNING AND TAKE TWO EVERY EVENING TAKE ONE TABLET BY MOUTH EVERY MORNING A ND TAKE TWO EVERY EVENING SOLD: 08/25/2020 [facility] 0.125 mg 03/10/2020 12:00:00 AM EDT tablet 90 TAKE ONE TABLET BY MOUTH EVERY MORNING AND TAKE TWO EVERY EVENING TAKE ONE TABLET BY MOUTH EVERY MORNING A ND TAKE TWO EVERY EVENING SOLD: 07/26/2020 [facility] Hydroxychloroquine Sulfate 200 MG Oral Tablet HYDROXYCHLOROQ UINE SULFATE 03/02/2020 12:00:00 AM EDT tablet 30 TAKE ONE TABLE T BY MOUTH EVERY DAY TAKE ONE TABLET BY MOUTH EVERY DAY SOLD: 07/08/2020 [facility] Hydroxychloroquine Sulfate 200 MG Oral Tablet HYDROXYCHLOROQ UINE SULFATE 03/02/2020 12:00:00 AM EDT tablet 30 TAKE ONE TABLE T BY MOUTH EVERY DAY TAKE ONE TABLET BY MOUTH EVERY DAY SOLD: 08/04/2020 [facility] Hydroxychloroquine Sulfate 200 MG Oral Tablet HYDROXYCHLOROQ UINE SULFATE 03/02/2020 12:00:00 AM EDT tablet 30 TAKE ONE TABLE T BY MOUTH EVERY DAY TAKE ONE TABLET BY MOUTH EVERY DAY SOLD: 09/06/2020 [facility] 10 mg 02/27/2020 12:00:00 AM EDT tablet 30 TAKE ONE TABLET BY MOUTH EVERY DAY TAKE ONE TABLET BY MOUTH EVERY DAY SOLD: 02/02/2021 [facility] 10 mg 02/27/2020 12:00:00 AM EDT tablet 30 TAKE ONE TABLET BY MOUTH EVERY DAY TAKE ONE TABLET BY MOUTH EVERY DAY SOLD: 10/06/2020 [facility] 10 mg 02/27/2020 12:00:00 AM EDT tablet 30 TAKE ONE TABLET BY MOUTH EVERY DAY TAKE ONE TABLET BY MOUTH EVERY DAY SOLD: 08/10/2020 [facility] 10 mg 02/27/2020 12:00:00 AM EDT tablet 30 TAKE ONE TABLET BY MOUTH EVERY DAY TAKE ONE TABLET BY MOUTH EVERY DAY SOLD: 11/03/2020 [facility] 10 mg 02/27/2020 12:00:00 AM EDT tablet 30 TAKE ONE TABLET BY MOUTH EVERY DAY TAKE ONE TABLET BY MOUTH EVERY DAY SOLD: 09/06/2020 [facility] 10 mg 02/27/2020 12:00:00 AM EDT tablet 30 TAKE ONE TABLET BY MOUTH EVERY DAY TAKE ONE TABLET BY MOUTH EVERY DAY SOLD: 07/08/2020 [facility] 10 mg 02/27/2020 12:00:00 AM EDT tablet 30 TAKE ONE TABLET BY MOUTH EVERY DAY TAKE ONE TABLET BY MOUTH EVERY DAY SOLD: 12/07/2020 [facility] 10 mg 02/27/2020 12:00:00 AM EDT tablet 30 TAKE ONE TABLET BY MOUTH EVERY DAY TAKE ONE TABLET BY MOUTH EVERY DAY SOLD: 01/05/2021 [facility] BLOOD SUGAR DIAGNOSTIC 11/27/2019 12:00:00 AM EST strip 100 USE DIRECTED BEFORE MEALS AND AT BEDTIME USE DIRECTED BEFORE MEALS AND AT BEDTIME SOLD: 07/15/2020 [facility] 31 gauge x 1/4" 09/18/2019 12:00:00 AM EST needle 100 USE THREE TIMES A DAY UNDER THE SKIN USE THREE TIMES A DAY UNDER THE SKIN SOLD: 07/15/2020 [facility] 31 gauge x 1/4" 09/18/2019 12:00:00 AM EST needle 100 USE THREE TIMES A DAY UNDER THE SKIN USE THREE TIMES A DAY UNDER THE SKIN SOLD: 09/27/2020 [facility] Insurance Providers Payer name Policy type / Coverage type Policy ID Covered alliance party ID Covered alliance party's relationship to sharma Policy Sharma Plan Information [employer] [id number] SP [id number] [facility] Federal Service Medigap Part B [id number] Family De pendent Ghi/Emblem HLTH (pr) Medigap Part B [id number] Self [facility] 10/21/15 [facility] 10/21/15 MEDICARE [id number] SP [id number] A POMCO [id number] Liv [id number] POMCO [id number] Liv [id number] POMCO U [id number] Self [id number] POMCO [id number] SP [id number] [employer] (pr) Medigap Part B [id number] Self UMR [facility] [id number] SP [id number] [place]IC[place] [id number] S [id number] [place] [id number] S [id number] [place] [id number] S [id number] MEDICARE A [id number] Self [id number] MEDICARE [id number] Liv [id number] MEDICARE [id number] SP [id number] A [facility] MEDICARE DIVISION [id number] S [id number] MEDICARE [id number] Liv [id number] A MEDICARE A [id number] Self [id number] A MEDICARE [id number] Liv [id number] A [facility] MEDICARE DIVISION [id number] S [id number] [facility] MEDICARE DIVISION [id number] S [id number] U [id number] Spouse [id number] Liv [id number] Liv [id number] [place] [facility] (TFL) Medigap Part B [id number] Family Dep endent Medicare Dme Supplies Medigap Part B [id number] Self Medicare [place] Primary [id number] Self [facility] For Life Medigap Part B [id number] Family Dependent 1 [id number] WPS For Life Medigap Part B [id number] Family Dependent 1 [id number] FOR LIFE [id number] [id number] UMR U [id number] Self [id number] POMCO [id number] SP [id number] POMCO [id number] SP [id number] UMR [id number] S [id number] UMR [id number] S [id number] FOR LIFE U [id number] Spouse 0 [id number] FOR LIFE [id number] SP [id number] FOR LIFE [id number] HU2 [id number] [facility] [id number] [facility] Commercial [id number] Self [id number] ANSI-Commercial [id number]-[id number]-4zmi-[id number] ANSI-Commercial 50o748pp-juzs-7hsh-h9pm-[id number] 95y107lz-ydny-3huu-r8db-[id number] ANSI-Commercial [id number]-58cy-5s3bw097rfi1 83ma90c5-3219-859z-18zz-0l1bj787psv1 ANSI-Medicare Part B [id number]-5t78-991y-q76i-[id number] ANSI-Commercial [id number]-3o8u-[id number] 6rw858m4-53xb-7x7p-51q6-[id number] ANSI-Commercial [id number]-1230-26166bvpdv4z [id number]-6296-66969erswo2a ANSI-Commercial [id number]-[id number] 7o0kpf91-82h1-0h85-82op-[id number] ANSI-Medicare Part B [id number]-[id number] [facility] [id number] RUST 114 [id number] ANSI-Medicare Part B [id number]-[id number] ANSI-Commercial 6j08yg34-f28d-21d4-9k9v-[id number] 9z00ur52-w22t-76z2-5d9t-ntr7i28s4b99 ANSI-Commercial 5u8e2783-1y0d-39g2-nc19-09gcr07z6w50 4v5l5807-7p0e-95a1-ce72-24kcl97w4u91 ANSI-Commercial u29x3i30-373e-9z74-m596-7e550e6664xy b62s6x30-969y-9l47-v164-4x232e6086fy ANSI-Commercial 007p4044-77h1-3q9j-4l45-3e07i2g7l711 210w1280-88d5-8z8s-7l01-7y25q4f8a250 [facility] 5r022q90-90u4-8141-77a3-9xww5j2mn671 0v196s88-89c8-4432-50g2-2xqi2z2kr233 ANSI-Commercial 94ewn864-45g5-4185-f1ti-10467t53w16k 69yee247-00j9-3495-d8mw-20169v43i34n ANSI-Commercial i4eq5f82-029p-0474-b265-4e51h9n7m2y2 n8bf0f51-720v-7926-y474-1s73y3z5d3q3 [facility] 895cw382-8b5r-14m9-hihl-2e38bv278342 097xp175-5y5s-89j5-gcix-9z63vu358551 ANSI-Commercial 4hr6q5g9-0u3k-0645-2108-pu84t3i619g4 3dm5w0d2-8u6t-2019-2859-us07o6l745g1 ANSI-Commercial 6iov1333-e601-46l5-t157-29nzl2kw1986 0jec8865-v833-06j8-j402-18aev3wj6502 ANSI-Commercial azj649z3-547h-6985-v62f-x5cb7381qje8 dkk499l6-784o-8671-o43a-w1vw8928vtg6 ANSI-Commercial r846z906-12i5-69z9-d361-12yk07iyhsx5 t317i924-15d5-24a0-d885-59yd65jvexz7 ANSI-Commercial g52j29qu-gr0c-1165-g149-5o8id6fn0135 k03m02gc-wo7s-4283-c426-6a3lm2te8325 ANSI-Commercial l93sz1ys-61co-6kx7-6k9w-123j8i410g96 d21ad8jb-25ax-6mo7-3a7o-984a7k093m02 ANSI-Medicare Part B 5p6an016-2x20-7686-ff8e-6pjp6n334z28 8s0qm591-0t11-2863-tf5g-0rjw0o060w48 For Life - [place] Medigap Part B [id number] MRN.572.j87o11n9-5m50-3369-56bj-u3290bfq2kjn Family Dependent [id number] r Medigap Part B [id number] MRN.572.u37d56s4-9q49-9575-29zo- e2567zbf1fpi Self [id number] Medicare (Part B) Medicare Primary [id number] MRN.572.k58m32o6-4a67-9699-80dw-v2503nar4std Self [id number] ANSI-Medicare Part B 5438i289-o1m4-4v8a-f839-5n1q5t13g179 2972j881-i8c4-5m4d-v375-5v0e3y67s054 ANSI-Commercial 88z0p782-59k5-799h-0nm6-07329pi8n180 27u9p225-00e1-723x-3xb7-39578np9u738 ANSI-Commercial 85z3to3r-1964-7364-u33y-7r2k33a26t4v 71e0cr2k-0849-2959-r23m-5s1f99r26o8k ANSI-Commercial 7077uo78-0082-5667-a449-51l864w865e6 3095bt88-6702-6645-t860-37g671t263g6 ANSI-Commercial 8v5v7be7-5k30-4506-43mj-605h30810k50 2p1z1wr4-5k95-2735-63nf-535b00879b31 ANSI-Commercial ew12a9ro-n8jp-0m28-ea01-gfmc5q061457 zc54x2yr-i7wu-0j35-ok94-bhpw9i280509 ANSI-Commercial 399r6307-75sp-2nl5-3440-644oo2c7m4m1 499o1238-33me-5ms4-0393-579ps9c6j9f1 [facility] 05287e0x-ca0l-60qi-x8nq-f27x15q808u4 54464v6u-zt0y-03av-p9eu-x90l68o871s5 ANSI-Commercial 3n45p3w0-m1h0-8017-fp10-g4of9k5725ud 2e79t0t3-s5h9-1625-jg32-c7mo0c6871ol ANSI-Commercial 0ce9op8a-kp59-270t-7186-s1p0r2a0348v 4yy0oj3z-wp00-640x-3098-k7h0m6f9281g ANSI-Medicare Part B i90s1w58-4a3a-3164-v6yg-8b8e50n9x8gq h95v0y26-5x0x-3837-g8fb-3i4f45v7c1hv ANSI-Commercial c2z42yi9-0uoj-1977-y8p4-4604975btt5u k4n90bn5-8yoi-2361-w2u2-6050890khp5y ANSI-Commercial x5h93707-m32d-959m-en54-wmygo2e5d1n2 k4a59018-r27t-905o-si22-gxddi9p9k0z9 ANSI-Commercial 858g00a0-7306-61m5-lm57-614j94ivfs81 255i72f7-0124-83q2-ii31-272c92zgaq79 ANSI-Commercial 9595niqf-556i-8m099k62-4t84-9811w74286av 6938tytl-755o-1g517k28-9n93-2725n24998tv ANSI-Medicare Part B 54w72747-x884-42e3-6vhd-s7v78untv51n 00s17736-b895-90e6-7rhh-c7y95znhz45k ANSI-Commercial oc568j80-2909-6e8h-26ub-82q388wtsv7u ih232f20-7236-2p4j-67ji-20g005jhdd1h ANSI-Commercial 509548n1-0v22-9x12-5j50-5o2y5248244e 804155w1-8z23-2s93-3u69-8t9l8832809g ANSI-Medicare Part B 49074s64-o7mv-08f2-ik41-9s2i0e27826w 75393e91-y2ly-34l2-uz76-4g4o3f69100w ANSI-Commercial 1774z17r-20p4-03o0-j288-mb7t875u575s 3733f97h-29o4-49j3-j011-rp3f622n415f ANSI-Commercial r985p4o1-24ya-86ng-8534-cjmi7j824062 d528m5s6-29gs-01wy-2599-shpw3e546497 ANSI-Commercial ruqks28t-6l12-10sd-v357-22wf703di525 bhgws60h-6s89-01ju-n043-50ji898tr375 ANSI-Commercial 68yc3vy7-0055-686a-lmi1-452xw09t8c7u 47gw6dm5-4184-366h-cpq7-869rd44d1u7m ANSI-Medicare Part B 302h6303-i85r-710e-g11c-79o9299o32y2 312a2138-t51l-569n-c58y-13p3996g81t7 ANSI-Commercial 5421534p-g7rh-2utg-lxi6-27o03ma05z6r 7671298k-w1hr-0etx-ouq3-92d26xw43h1u ANSI-Commercial 9697e763-9q31-2g70-45tp-b4ak2q5i3u23 6636b901-0g17-1f83-54dt-o8df9p4c6o06 [facility]-Medicare Part B w4036q7z-2668-70xe-ot0o-0111291274gk u8030t5z-6107-45td-ql0v-9589657808sz ANSI-Commercial 855z8ns2-641c-850o-8kx3-2n363t19352y 534y8yu1-306l-961f-1jh9-3v557z30831r ANSI-Commercial x9502x64-9971-0h3x-o2nc-b7979o892w1t d0326l44-7792-0e4s-s8bs-q8909c752s0z [facility] h57j5ui4-71i2-4g93-525z-p75168w455m2 d70t3pi0-54n1-0a20-531f-d03321k594l9 ANSI-Commercial 25f8f099-6sy9-32a7-no99-j6k5h1tn300h 18f5o973-3ni1-26b2-mr74-j7q4r6eg240k ANSI-Commercial nzl57225-b552-986u-n072-z30135k974xw adm76286-r604-776n-r196-v92866u483me ANSI-Commercial 64xe6516-74f7-4331-683d-t22v8z3475i5 17bh1176-63q1-6689-603x-h39x5j8540g6 [facility] 63q241l6-1h12-60lv-0311-f9g40fbyz1t3 80g064d4-5q28-75lw-7941-b3f44tlyv2d3 ANSI-Commercial u88251ep-ir4y-3c2h-731q-w48j7b62bd52 h81017cu-gu9w-7g3p-082g-b08e3g41hn97 ANSI-Commercial h963ap51-3e4t-9404-p13o-k5x2227186q6 i115zs53-2e5r-1335-m43a-v2q0144429f7 ANSI-Medicare Part B j70vs1o2-303n-7109-2z3w-cwc42quq218v j39aq9l0-652p-0562-5w4p-fzx30eyu163q ANSI-Commercial hxsq1527-31i1-60g9-ql48-31l074h4v05o oaet2291-59e7-62r0-zu09-75s129n4i84w ANSI-Commercial qw8zix09-w01y-09wd-1qv8-l121s96jd3hf yl4pud34-e48s-97ov-5jv8-i247m17gu5vf ANSI-Commercial 27178z90-70is-7b34-585l-31cy6ty38348 74489p06-10zd-2m95-498x-46wt5ia10114 ANSI-Commercial i8l6q4qs-9845-1r44-h2ho-742z8e8i565t l2a7y3mf-4061-5y99-p6uv-687t8e9v905y ANSI-Medicare Part B m6uz0ao3-n7y9-7430-13cy-x5aw65ba031l z4rg6mu3-a7s9-4187-90je-j6tw34nc786j ANSI-Commercial l0wa397r-9836-1625-r91t-2856fa1qk327 q7wv388p-5456-6741-x90p-2870tr3er357 ANSI-Commercial 4yas0159-l6x0-5258-10dx-2n5s8xzc6gh4 8jmz3538-q0y5-6501-87nt-7n0n8idd5dr9 ANSI-Commercial 41q3y1d8-5k00-18l8-g773-gihydo3859oz 03m5o1f5-6u40-61x7-u691-eiiugz9099iy ANSI-Commercial d87i4950-057l-7e88-4x5k-1o5457gp4005 w65s9294-009k-4f58-1l8t-5m0468tm9500 ANSI-Commercial a43rv31g-12gk-9792-1gk3-q19j0z505b5m a21iv97c-40hq-2709-1sq5-s02z9p060g2q ANSI-Medicare Part B y8m0i4av-91s6-1e00-1918-7xab1p065314 j4b2h5jl-93x2-5z39-2645-2fau2r284747 ANSI-Commercial 3086l659-7103-87ys-w994-c425be1zefx9 9703o929-2044-32ud-g303-z951vf2vzev2 ANSI-Commercial q18l8090-78s8-85oc-z4cv-y77j2vve09d3 q49v1897-81q4-99ao-d4hj-h14m7awx90d0 ANSI-Commercial 12z487jm-1kdn-92j5-7c6t-38y78941c10o 25r872kk-2wsl-36q0-8p6s-76s89656c48x ANSI-Medicare Part B 39j6s2w7-8w54-70i2-l836-8oc903y73gd8 95d2p0b4-9z80-82i8-d379-7je155q47do3 ANSI-Commercial ch27w8f9-x75b-31iz-ms9c-52ubw637g8sb bj09x0a7-u79b-76ut-ic7j-13jbe413p6pb ANSI-Commercial pc3zolq2-2s8e-4i9n-35v5-5n0k6py1810h hn1nlxf2-2g8d-9r0q-29w4-6q5z2mt4095t ANSI-Medicare Part B gyt068l8-fx9q-6n32-e9cq-2ex4a9104s6l coz139s6-bc8v-1y26-p0ar-7cv7t9915o7s ANSI-Commercial ju6s463i-7712-3eu7-d332-76zm3o59rr8t zk7z429t-9355-4un9-i287-76yk6f07ay2v ANSI-Medicare Part B n3x644h8-xre7-8953-44i5-0py37235z29a u1x709n9-sbz5-5480-70m1-7fs89148n79l ANSI-Commercial x08z409u-5fa3-4y4d-7772-585jy4piy548 x60n453e-3rj0-0s1d-0316-743ui7dkn923 ANSI-Commercial 213o42lj-v5g2-6736-l929-z0u1877g2gjj 711h10pw-x4s8-4017-j850-s1t2572i5rio ANSI-Commercial 7b3321xt-47e0-3532-401z-n2195utt3398 7c3925ll-27r0-8934-009p-v9081wyg2894 ANSI-Commercial 02b3p626-ol1p-0t15-9853-47z66331kbh0 83j9b984-rk5j-6x00-9851-16p12100wbl6 ANSI-Medicare Part B t471fi12-92h8-18q6-90fx-m73f97ch4yzj e446po49-24w6-42a0-63im-h86v05mu9ceo ANSI-Commercial 2zp7g20b-rk21-7g66-ma5s-73437pgxx39q 5ok4f51p-ur23-2b72-ii3r-17257oziq65x ANSI-Commercial w61o27jl-m51m-23q7-f023-391245973d05 d46x50qc-d96o-48k0-q184-586854380m93 ANSI-Commercial r400iain-kf75-2rdf-shm1-nnr4066665vt z416tbsz-cu34-5jan-aeu0-abe5985945vv ANSI-Commercial on47505i-v4sb-4ly2-q13o-7yy3nv643kij cd66897b-m5xv-1ot2-m09e-1yd7zw245sgs ANSI-Medicare Part B l36x601j-8y9f-0677-qcc0-2al6n3yf02a4 y60u938e-8x9y-8398-xtm9-4bw6b4sd49y7 ANSI-Commercial 3vq4g5oo-8s7p-4l97-8n12-500sq0yw5u1s 7fg5n4nr-4e8k-3i81-2e92-584ia9wg3f7w For Life - W[place] [facility] Part B [id number] 2.16.840.1.287667.3.227.99.572.56289.0 Family Dependent 1 [id number] r [facility] Part B [id number] 2.16.840.1.047783.3.227.99.572.303 39.0 Self [id number] Medicare (Part B) Medicare Primary [id number] 2.16.840.1.675071.3.227.99.572.87856.0 Self 2 [id number] ANSI-Commercial 96c63762-98fl-1ux3-0244-7268au9959t9 32r20065-87zg-8tq4-3022-3709cg9507d9 ANSI-Medicare Part B 17580u10-k9qr-1963-z368-176xi9036c0m 45387v20-l6kz-8585-w314-008bl3067p1m ANSI-Commercial z72xq700-74gw-6b86-k2n8-707s8896j579 x61rd153-09mq-5o81-i8k4-066p2967u132 ANSI-Commercial 64e412n7-06ay-1987-04ke-07dt4x715616 17q103c5-69kw-2479-89uw-16xj9u840441 ANSI-Commercial 4k6n31uu-1899-04v3-ih9z-14g9v6gt858c 8l8q92iz-4059-38b4-up5v-81f8i9ke566z ANSI-Commercial 465870e7-p4xf-210s-xup5-0j7492351i75 209528q3-o8if-603t-ccl0-9f6689470v51 ANSI-Medicare Part B 242xzl7n-9882-7679-6c8d-0m24od8581da 871htp8b-4075-1957-9g8h-4w19db3418dd ANSI-Commercial 30lclq3y-7e0u-9pu1-v5z9-45oq74996no6 57picj3w-5n9v-0rb8-z2a9-19ea17752mw8 [facility] [id number] 2.16.840.1.105895.3.227.99.572.98900.0 Family Dependent 1 [id number] [facility] [id number] 2.16.840.1.150720.3.227.99.572.303 39.0 Self [id number] Medicare (Part B) Medicare Primary [id number] 2.16.840.1.306674.3.227.99.572.32565.0 Self 2 [id number] ANSI-Medicare Part B 1179dl5f-1956-1up6-t00e-d7x6r966th67 5769nh4i-3224-8xw6-r34w-v5q7r686gi13 ANSI-Commercial 8r922r82-5e32-5681-o67w-wz7t9n189o84 8v981d96-1c11-0840-i42i-po6h7f365o88 ANSI-Commercial 0245a9a5-98yz-5i47-917k-645497445054 2805r3d0-07ta-5d55-423r-814306374088 ANSI-Commercial 70m2j537-5k49-1904-f8i2-bt7mf93ys3io 16x1m929-2r65-7622-l1f0-xf0wj09ub8ae ANSI-Commercial evy59fl9-397x-173b-c653-3o9958p19654 mqh03vh0-091e-694u-y410-3s7758j96449 ANSI-Medicare Part B 720jt963-572n-981y-5io3-82l9pnjs9037 741oy018-555a-149h-2dp8-86p1txrg7489 ANSI-Commercial 1f5mo6l3-0775-6o23-n64b-0w044x9r8420 5i3xv2a2-0162-4p66-s18x-1q082r2m4477 ANSI-Commercial 8mw174ga-e967-3237-w347-93ai4w38u547 6ox105ck-d818-8976-p151-13yv6x40k410 ANSI-Commercial 0ue37y5i-ogr1-7839-w315-z568yhe32w96 8au23o1o-zkz9-7020-q530-d515byq86b34 ANSI-Medicare Part B 3c3z54p6-431z-87oe-p9a9-93b89gvoe5t4 6z6q89h3-716l-40ry-q4k9-48b45pbcp3z0 ANSI-Commercial anc2makx-401k-310t-f947-5871ga12cjq1 uho2rosf-584v-542h-p413-7593bh61gvq0 ANSI-Commercial 08vt36f1-965o-87b0-4775-6gz32hsx9b70 94lb30r8-319j-47w1-5012-9ft74lij9o20 ANSI-Medicare Part B d1118673-ujt3-5508-779l-7icq3685x581 z7510042-pij1-1542-231z-9lkm0746q890 ANSI-Commercial 756222c6-7b30-5a93-v669-6c34864e6887 675494a6-7m44-8p75-p929-3n99504d7151 ANSI-Commercial swd918rc-6zp5-75m4-nqa3-rfn2424a0t20 lgz082sj-2ic3-13q7-stq3-czy2139l1a82 ANSI-Commercial 09b564d5-wt08-5a12-587n-o3d1it2k06w4 01y200r8-mg16-4n92-213a-p3n1rl7m69e5 ANSI-Commercial 8r989y9p-hly6-4w76-8y17-7116z675jsm9 9o818q3p-qzh1-7y12-9o56-1605v136gln5 ANSI-Medicare Part B a92584c0-6461-1232-639s-x9txa6gl315c a58914k2-2477-5708-862o-s8sbk2mc408c ANSI-Commercial u0h6d0x0-200p-9178-mm07-1yxvu1o3157z e2j6o1u3-508f-1792-mk50-3prgd9q8440t ANSI-Commercial 4715954v-65p2-2b41-d5o7-v27126r6k2p7 7918650e-31f2-4s27-f2z3-p05727x6a4x4 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 (HMO) 11 [id number] .1.801884.3.227.99.8646.8124.0 Family Dependent 1 [id number] [place] Medigap Part B [id number] ..1.360598.3.227.99.8646.812 4.0 Self [id number] [facility] Medigap Part B [id number] ..1.770820.3.227.99.8646.812 4.0 Self [id number] Medicare [facility] Medicare Primary [id number] 2..1.486279.3.227.99.8646.8124.0 Self 2 [id number] ANSI-Commercial kf88eyd5-26q2-9u78-co8h-wm4t3308e56x qk52dim7-06v0-2i79-bg9i-rs3g5753t98k ANSI-Commercial j79n3dj8-0n65-9472-475b-cz4p28g5v020 w67j6lg2-9d26-4795-724d-lf7s00p3s438 ANSI-Commercial p667o90m-j078-510h-iy6r-hb5hi51d45m3 s714m03x-s006-299q-ec2v-og5tm94r15s1 [facility] 8g1lx1t7-79rw-1bp0-l159-406r53384677 3v2yj7k0-88wh-7ql5-f184-213b77386739 ANSI-Commercial 61b29967-5l9i-9k45-5y65-x21744092o59 80e27525-9r3b-0b68-2e19-e05481086e97 ANSI-Commercial 47tnsjg3-s5ob-0495-wd22-bq9a9l6247tp 57shmfv9-g0it-0425-ys94-oq2o2h9143xm ANSI-Commercial 953z8126-0iq1-7ch2-2321-2az2540y3714 385q2246-3dd5-8rg4-5269-9iv9439j8723 [facility] j30jc8s1-za29-5520-v0d2-m1dvf0o6gs19 l60mx8t3-bu48-8698-k0f6-f8ism7k9uf31 ANSI-Commercial 432kmdoq-3161-2977-944d-fxk7j5lsk12x 133ecfie-9947-4765-944d-ywz4z8kcy65r ANSI-Commercial sil8jz29-7530-1jm8-092v-1wwd7cda6j07 cru3md78-5770-3ha3-834z-8wzs2pnr8l59 ANSI-Commercial 5pdk8bp1-35s5-1523-0yk6-1u4s2048ml14 7dno3ew6-55d4-5726-9tw2-8f7l1345zh80 ANSI-Medicare Part B sf9k4037-0wf2-45i0-j27c-rd149od2z61k qj2m7905-8lv4-44n9-c92w-qy195cu2p47n ANSI-Commercial 8qc8023q-988m-4522-vzu2-ou6483im69fz 2zy7928g-749j-0076-rpr3-jn1076fd83jk ANSI-Commercial 5b68bv7i-433s-16z6-st00-6441210s832w 2g65xw1k-711b-16h8-zl18-4683749j655w ANSI-Commercial 98027390-y81g-3053-m626-75y411cj99we 13816554-i70v-6856-q673-36x944wi41kw ANSI-Medicare Part B 5hv210xx-707s-1058-lx26-6wnt9906439q 5as206ly-610w-0820-mm13-2clk5968171f ANSI-Commercial h06ul0zq-v2o7-48o2-8c54-167n533a90b6 b03wj0tg-j4i4-01z6-7v62-981e536m22t2 ANSI-Commercial 7425x818-f96w-5674-324o-95un4gv9525z 5359j845-t56h-4091-229z-39ra8fm5763s ANSI-Medicare Part B 670f90m7-00en-9m00-1x87-92isk6m942p0 867s79h0-84ua-7d38-9r90-84bdr9x971s2 ANSI-Commercial ytw32c7g-y1zu-8d41-8l0y-94l8uj213w50 vus13q6i-m9ra-7l78-6y8w-25q4qr180t92 For Life - WPS [facility] Part B [id number] 2.16.840.1.567192.3.227.99.572.61979.0 Family Dependent 1 [id number] r [facility] Part B [id number] 2.16.840.1.144340.3.227.99.572.303 39.0 Self [id number] Medicare (Part B) Medicare Primary [id number] 2.16.840.1.466309.3.227.99.572.03903.0 Self 2 [id number] ANSI-Commercial 9m79h115-i1k4-0517-9wxj-es00ljpu7243 8w06d923-t8a9-9265-0xpm-pj84ckjh4441 ANSI-Medicare Part B [id number]-660j-33v9-cpwe-hn49181t9yb6 u1ce556q-873i-80a9-iklk-yy69233u6zt8 ANSI-Commercial 0mmf9nr2-2531-09u7-o107-9233r1y83x98 5xsd1pm4-5736-49m0-a952-0656b2e24u37 ANSI-Commercial 12e785i2-4uq0-64h6-q284-3891367wj1no 08i940r5-9ju3-08l9-o850-2989513nq7dq [facility] MEDICARE DIVISION [id number] S [id number] MEDICARE - [place] [id number] S [id number] ANSI-Commercial 9w23445h-7021-8lp3-4re9-4k231uh1y594 4s27159z-7366-5jm1-2lm1-9t539th4s580 ANSI-Medicare Part B m2721h11-2o68-400a-2x91-hw6r81042n8z o8343e50-1u42-892y-1s71-sg8a16319b2y ANSI-Commercial m17q38b6-40fk-3jfl-i3u8-5mwi10wfd1hn e11n27p1-95kx-6pja-d4a2-7tiq91gci5fo ANSI-Commercial q462o686-a064-99fi-cing-76965s9ch544 d175r624-b907-33yv-digk-57492g5hh997 FOR LIFE [id number] RUST [id number] MEDICARE [id number] SP [id number] A ANSI-Commercial 2o056s19-p645-36m0-10n8-3w3g643u725k 4d666u26-b907-27w2-17w9-7z2b393c725x ANSI-Medicare Part B [id number]-738313x23521 7uh98777-44h7-4970-0lxn-308761y83185 ANSI-Commercial 563b992k-4xh8-600h-x1g8-x8wd6315091o 335m094l-4jf7-192l-j2l3-f8pb3986379t ANSI-Commercial 3m9626t0-yykm-6k7j-ztd0-r8g12m1d4k11 1q8285y2-drhv-3g3p-mnf2-a9h93z9o7y45 ANSI-Commercial p4a42796-0376-1r75-e601-061y8xayvt8u i2h24074-5186-3y77-w657-327k7juhda0v ANSI-Medicare Part B [id number]-x289-67ac-[id number] 4q14x408-z376-45ce-hg91-43892p020830 ANSI-Commercial 3e17d21c-980r-8474-ew51-0i03ody2q47x 2t07l11z-118k-0983-uk87-9q36sja7r91t ANSI-Commercial 228hae54-xnw5-317r-f776-788v32500238 739ecd27-lgt2-530q-k324-444t15458494 [facility] [id number] 12.22.830.1.081844.3.227.99.572.53958.0 Family Dependent 1 [id number] [facility] [id number] 2.16.840.1.575182.3.227.99.572.303 39.0 Self [id number] Medicare (Part B) Medicare Primary [id number] 2.16.840.1.004153.3.227.99.572.37741.0 Self 2 [id number] For Life - WPS [facility] Part B [id number] 2.16.840.1.975854.3.227.99.572.83890.0 Family Dependent 1 [id number] [facility] Part B [id number] 2.16.840.1.795382.3.227.99.572.303 39.0 Self [id number] Medicare (Part B) Medicare Primary [id number] 2.16.840.1.659975.3.227.99.572.82774.0 Self 2 [id number] ANSI-Commercial ykn743jb-6n06-79kr-1g03-s37pr625t206 szs702ic-9w74-99zm-6d35-y94zm509p943 ANSI-Commercial r653fe66-5b33-0r51-s4m0-09v9jvv7mm17 z415rs77-1r53-3h04-b1o9-94p2imk9he96 ANSI-Medicare Part B [id number]-1431-255j-w321-67563i13k94g fhe7118e-5163-118h-i867-40528w48d63r ANSI-Commercial 98iyd5u9-2a11-5pv9-se87-6e8563368387 60pke6o8-1l58-7mm7-be73-6x1067348702 ANSI-Medicare Part B 824457s5-53p7-0i88-oe0t-1237j2w6065w 102002g4-54z0-2o30-om3y-7443z3d3429j ANSI-Commercial 983954wr-25d0-196h-52d6-f6h12u9m19lp 501787mt-77o6-395b-88p0-s6c68i2k76ps ANSI-Commercial 73286455-8yk4-6141-t355-4ar7lme03d6e 32688867-4gm7-0588-y904-7ug2ion62q3i ANSI-Commercial 6911s919-r4m8-3g69-z652-ac35s9ad6u01 2491i413-q4k4-1k76-k854-zz67v6tr6r16 For Life - WPS [facility] Part B [id number] 2.0.1.825264.3.227.99.572.57995.0 Family Dependent 1 [id number] [facility] [id number] 2.0.1.996594.3.227.99.572.303 39.0 Self [id number] Medicare (Part B) Medicare Primary [id number] 2.0.1.457240.3.227.99.572.06883.0 Self 1 [id number] P[facility] [id number] SP [id number] [facility] PPO O [id number] S [id number] MEDICARE C [id number] S [id number] A [facility] - PHYSICIAN [id number] 01 [id number] [facility] -PHYSICIAN [id number] 1 [id number] MEDICARE PART A -O [id number] 18 [id number] [facility] -O [id number] 18 [id number] MEDICARE PART A -I/P [id number] 18 [id number] [place] - I/P [id number] 01 [id number] [facility] -O/P [id number] 18 [id number] N [facility] [id number] 01 [id number] [facility] [id number] 2.0.1.239180.3.227.99.572.92331.0 Family Dependent 1 [id number] Medicare (Part B) Medicare Primary [id number] 2.0.1.336780.3.227.99.572.71305.0 Self 1 [id number] [facility] PHCS Ppo Medigap Part B [id number] 2.16.840.1.787901.3.227. 99.572.23136.0 Self [id number] For Life - WPS Medigap Part B [id number] 2.16.840.1.412375.3.227.99.572.70917.0 Family Dependent 1 [id number] Medicare (Part B) Medicare Primary [id number] 2.16.840.1.479709.3.227.99.572.64619.0 Self 1 [id number] [employer] Standard Health Maintenance 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 (HMO) 11 [id number] 2.16.840.1.672844.3.227.99.8646.8124.0 Family Dependent 1 [id number] Ghi Medigap Part B [id number] 2.16.840.1.764978.3.227.99.8646.812 4.0 Self [id number] [facility] Medigap Part B [id number] 2.16.840.1.995171.3.227.99.8646.812 4.0 Self [id number] [place] [facility] Medicare Primary [id number] 2.16.840.1.123836.3.227.99.8646.8124.0 Self 1 [id number] For Life - W[facility] Medigap Part B [id number] 2.16.840.1.557046.3.227.99.572.89417.0 Family Dependent 1 [id number] Medicare (Part B) Medicare Primary [id number] 2.16.840.1.589433.3.227.99.572.37808.0 Self 1 [id number] For Life - WPS Medigap Part B [id number] 2.16.840.1.865531.3.227.99.572.24268.0 Family Dependent 1 [id number] Medicare (Part B) Medicare Primary [id number] 2.16.840.1.430577.3.227.99.572.69348.0 Self 1 [id number] [id number] SP [id number] MEDICARE [id number] SP [id number] A Medicare (Part B) Medicare Primary [id number] Self For Life - WPS Medigap Part B 05508 Family Depen dent [facility] Medigap Part B 18085 Self Medicare Medicare Primary [id number] Self [facility] [place] [id number] HU2 [id number] HEALTHNET/ AD O [id number] P [id number] [facility] [place] O [id number] S [id number] HEALTHNET O [id number] U 1 [id number] POM[facility] O [id number] S [id number] MEDICARE OUTPATIENT M [id number] S [id number] HEALTHNET O [id number] U [id number] MEDICARE [id number] SP [id number] UMR [facility] [id number] SP [id number] FOR LIFE [id number] HU2 [id number] [facility] [id number] SP [id number] FOR LIFE UNAVAILABLE 01 U NAVAILABLE [facility] MEDICARE PART A [place] [id number] 18 [id number] [place] [id number] 18 [id number] MEDICARE PART A -O/P [id number] 18 [id number] UMR -O/P [id number] 18 [id number] [facility] - O/P [id number] 01 [id number] MEDICARE [id number] SP [id number] MEDICARE [id number] SP [id number] UMR O [id number] S [id number] MEDICARE C [id number] S [id number] FOR LIFE O [id number] S [id number] MEDICARE PART A -O/P [id number] 18 [id number] [employer] [place] Other 0 [id number] Self 0 Medicare Part B [facility] Other 0 [id number] Self 0 ANSI-Commercial [id number]-bo7i-46e2-071l-39fd2542f2r5 76946r42-ev1p-02f6-209d-14wz5567g6b6 ANSI-Commercial 5h690b13-701v-9083-y205-v99f841v3q42 3w266g33-606y-6071-g655-n24u161i4b63 ANSI-Commercial 1v92s31x-u130-16qa-dt53-rc31fju9n5d3 6j99w98e-c606-97eu-lk13-ed52lis3t6y4 ANSI-Medicare Part B [id number]-[id number] q2b8utk2-7322-0kj3-wt87-193z94v12900 ANSI-Commercial 70935jcq-p64n-7jb9-c61b-931xz5cynd7s 74431pmd-y05i-5gx5-x92r-179oo7ymqq8w ANSI-Commercial 4s715173-54yd-2075-c75x-d99h57608933 1b428022-88ai-2204-a19v-j59a30000732 ANSI-Medicare Part B [id number]-h523-4d01-t9p0-57642f47c0ch e9b98439-d649-3e32-g0e4-88664v37o9bd ANSI-Commercial c9070n3l-d313-69ch-rz28-52b0e404p1gb r2390z0y-o020-62zd-gg29-22k5d286s9ey ANSI-Commercial 1r514945-6b6n-6398-2iz2-3q29a31q65dq 8r442240-8v5t-8658-4hb0-1j30c06e83we ANSI-Commercial 945041ae-6277-6521-2q18-8t5j0w728i67 032122ai-6036-6066-0i62-6e3w2f887v90 ANSI-Medicare Part B [id number]-s19e-5470-p452-[id number] e9n0gv96-d26y-5205-v379-dm8k2y10r431 ANSI-Commercial 7n3n8483-f3d3-5c6z-9uk9-828626r61u56 7f7a8687-q1o5-4y5k-0gm9-269387i95y86 ANSI-Commercial s3t0w41f-y9m8-387e-1728-4pr568224zb1 f9f2x39p-q8f3-624f-0935-0ql787629zf5 ANSI-Commercial g418tp99-7u25-025r-az97-402ji9ek624w s597oa31-6k98-357d-kb19-276pa8mz503a ANSI-Commercial 017j8405-169w-5w35-7xm2-4hne99q71k3i 658q8188-758s-4p01-9eh0-0awt01c42f9n ANSI-Medicare Part B [id number]-[id number] 148610kf-2n48-3b0l-n4s7-97hk3ju732q4 For Life - [place]PS Medigap Part B [id number] MRN.572.e12r69u8-9c45-9916-22hj-h8636zvv9hhg Family Dependent [id number] Umr Medigap Part B [id number] MRN.572.f21p46s5-4j46-7681-26cj- b0032iec7gvc Self [id number] Medicare (Part B) Medicare Primary [id number] MRN.572.v13f99e2-7f52-0364-47ne-d2901tyf4ukd Self [id number] [employer] PHCS Ppo Medigap Part B [id number] MRN.572.h55y27a2-8d26-4807-00dj-j0546wkp7xdw Self [id number] ANSI-Commercial 702im6ji-o41t-8461-6e3k-3vna1b1f2d04 885jy5ys-q65y-0386-6p7m-7olg1t0x4k80 ANSI-Medicare Part B 31o4e9wt-7x2j-8902-58r8-21618a7m52on 02c6e9uo-4f2a-6093-23e5-38526s1f59ck ANSI-Commercial frgc7q66-46a7-3m6w-q509-64048152407l xtbu5o56-42m9-1n5w-y520-40081919759e ANSI-Commercial 28q59z8j-s64v-1235-gqd6-14o3970806jk 25m49o5f-c62g-1881-pov1-99a8022156wr Problems, Conditions, and Diagnoses Code Display Name Description Problem Type Effective Dates Data Source(s) I12.9 Hypertensive chronic kidney disease with stage 1 through stage 4 chronic kidney disease, or unspecified chronic kidney disease HYPERTENSIVE CHRONIC KIDNEY DISEASE W STG 1-4/UNSP Diagnosis 08/02/2021 11:33:00 AM [facility] R80.9 Proteinuria, unspecified PROTEINURIA, UNSPECIFIED Diag nosis 08/02/2021 11:33:00 AM [facility] E83.52 Hypercalcemia HYPERCALCEMIA Diagnosis 08/02/2021 11:33:00 AM [facility] N18.30 CHRONIC KIDNEY DISEASE, STAGE 3 UNSPECIF CHRONIC KIDNEY DISEASE, STAGE 3 UNSPECIF Diagnosis 08/02/2021 11:33:00 AM [facility] l N18.32 CHRONIC KIDNEY DISEASE, STAGE 3B CHRONIC KIDNEY DISEASE, STAGE 3B Diagnosis 08/02/2021 11:33:00 AM [facility] R109 Unspecified abdominal pain Unspecified abdominal pain Diagnosis 05/31/2021 03:28:00 PM [facility] 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 Co mplications of stem cell transplant Diagnosis 05/16/2021 10:55:00 AM [facility] 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 Viayr-swicuq-ncxv disease, unspecified G melh-xmqtsh-hqaa disease, unspecified Diagnosis 05/04/2021 01:00:00 PM [facility] D471 Chronic myeloproliferative disease Chronic myelo proliferative disease Diagnosis 05/04/2021 01:00:00 PM [facility] 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 Diagnosis 04/05/2021 01:18:00 PM EDT [facility] [id number] 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 Diagnosis 10/05/2020 12:00:00 PM [facility] [id number] Myelofibrosis Myelofibrosis Diagnosis 10/05/2020 12:00:00 PM [facility] [id number] Essential hypertension Essential hypertension Problem 05/31/2021 12:00:00 AM EDT MEDENT ([facility]) R13.10 [id number] Dysphagia, unspecified type Problem 05/04/20 12:00:00 AM EDT eCW1 ([facility]) F43.22 [id number] Adjustment disorder with anxiety Problem 03/26/2021 12:00:00 AM EDT eCW1 ([facility]) E27.40 [id number] Adrenal insufficiency Problem 02/18/2021 12: 00:00 AM EDT eCW1 ([facility]) R94.31 Electrocardiogram abnormal Electrocardiogram abnormal Problem 02/10/2021 12:00:00 AM EDT MED[facility] ([facility]) E83.52 [id number] Hypercalcemia Problem 02/04/2021 12:00:00 AM EDT eCW1 ([facility]) I15.0 [id number] Renovascular hypertension Problem 01/19/2021 12:00:00 AM EDT eCW1 ([facility]) F33.0 [id number] 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 Problem 01/19/2021 12:00:00 AM EDT eCW1 ([facility]) F43.23 [id number] Adjustment disorder with mixed a nxiety and depressed mood Problem 11/17/2020 12:00:00 AM EST eCW1 ([facility]) Surgeries/Procedures Procedure Description Date Indications Data Source(s) ECG ROUTINE ECG W/LEAST 12 LDS W/I&R 02/10/2021 12:00: 00 AM EDT MEDENT ([facility]) Results ID Date Data Source [id number] 08/02/2021 12:17:00 PM EDT [facility] [phone] Name Value Range Interpretation Code Description Data [facility](s) Supporting Document(s) GLUCOSE 169 mg/dL 74-106 H [facility] BLOOD UREA NITROGEN 61 mg/dL 7-18 H [facility] ital CREATININE 2.48 mg/dL 0.6-1.0 H [facility] SODIUM 143 mmol/L 136-145 [facility] POTASSIUM 3.9 mmol/L 3.5-5.1 [facility] CHLORIDE 105 mmol/L 98-107 [facility] CO2 26 mmol/L 21-32 [facility] CALCIUM 9.9 mg/dL 8.5-10.1 [facility] GLOMERULAR FILTRATION RATE 20 mL/min [facility] GFR IS CALCULATED IN mL/min/1.73m2 STAS L FUNCTION: >90MILDLY DECREASED: 60-89MILDY TO MODERATELY DECREASED: 45-59 MODERATELY TO SEVERELY DECREASED: 30-44SEVERELY DECREASED: 15-29RENAL FAILURE: <15 ALBUMIN 3.5 gm/dL 3.4-5.0 [facility] PHOSPHOROUS 4.1 mg/dL 2.5-4.9 [facility] ID Date Data Source [id number] 05/21/2021 06:57:00 AM EDT [facility] Name Value Range Interpretation Code Description Data [facility](s) Supporting Document(s) Tacrolimus [Mass/volume] in Blood by LC/MS/MS 3.5 ng/mL 2.0-20.0 [facility] Trough (immediate ly following transplant) 15.0 Trough (steady state, 2 weeks or more after transplant): 3.0 - 8.0 Detection Limit = 1.0 Performed by LC-MS/MS technology. This test was developed and its performance characteristics determined by [employer]. It has not been cleared or approved by the Food and Drug Administration. ID Date Data Source [id number] 05/16/2021 12:04:00 PM EDT [facility] Name Value Range Interpretation Code Description Data [facility](s) Supporting Document(s) CBC W/AUTOMATED DIFF [facility] COMPLETE BLOOD COUNT Leukocytes [#/volume] in Blood by Automated count 5.3 10^3/uL 4.2 - 1 1.0 [facility] Erythrocytes [#/volume] in Blood by Automated count 3.52 10^6/uL 4. 20 - 5.40 L [facility] Hemoglobin [Mass/volume] in Blood 12.4 g/dL 12.0 - 16.0 [facility] Hematocrit [Volume Fraction] of Blood by Automated count 36.3 % 3 7.0 - 47.0 L [facility] Erythrocyte mean corpuscular volume [Entitic volume] b y Automated count 103.1 fL 81.0 - 101 H [facility] Erythrocyte mean corpuscular hemoglobin [Entitic mass] by Automated count 35.2 pg 27.0 - 34.0 H [facility] Erythrocyte mean corpuscular hemoglobin concentration [Mass/volume] by Automated count 34.2 g/dL 31.0 - 36.0 [facility] Erythrocyte distribution width [Ratio] by Automated count 14.0 % 11.5 - 14.5 [facility] Platelets [#/volume] in Blood by Automated count 161 10^3/uL 150 - 45 0 [facility] Platelet mean volume [Entitic volume] in Blood by Automated count 10.7 fL 7.4 - 10.4 H [facility] Neutrophils/100 leukocytes in Blood by Automated count 52.5 % 37. 0 - 80.0 [facility] Lymphocytes/100 leukocytes in Blood by Manual count 33.2 % 25.0 - 40.0 [facility] Monocytes/100 leukocytes in Blood by Automated count 11.6 % 3.0 - 8.0 H [facility] Eosinophils/100 leukocytes in Blood by Automated count 1.9 % 0.0 - 7.0 [facility] Basophils/100 leukocytes in Blood by Automated count 0.4 % 0.0 - 2.5 [facility] %IG 0.4 % 0.0 - 0.0 [facility] %NRBC 0.0 % 0.0 - 0.0 [facility] al Neutrophils [#/volume] in Blood by Automated count 2.77 10^3/uL 2.00 - 6.90 [facility] Lymphocytes [#/volume] in Blood by Automated count 1.75 10^3/uL 0.60 - 3.40 [facility] Monocytes [#/volume] in Blood by Automated count 0.61 10^3/uL 0.00 - 0.90 [facility] Eosinophils [#/volume] in Blood by Automated count 0.10 10^3/uL 0.00 - 0.70 [facility] Basophils [#/volume] in Blood by Automated count 0.02 10^3/uL 0.00 - 0.20 [facility] #IG 0.02 10^3/uL 0.00 - 0.10 [facility] ospital #NRBC 0.00 10^3/uL 0.00 - 0.00 [facility] ospital MANUAL DIFF NOT INDICATED [facility] RBC MORPH NOT INDICATED [facility] spital ID Date Data Source [id number] 05/16/2021 12:04:00 PM EDT [facility] Name Value Range Interpretation Code Description Data [facility](s) Supporting Document(s) Lactate dehydrogenase [Enzymatic activity/volume] in Serum o r Plasma 305 U/L 135 - 214 H [facility] ID Date Data Source [id number] 05/16/2021 12:04:00 PM EDT [facility] Name Value Range Interpretation Code Description Data [facility](s) Supporting Document(s) COMPREHENSIVE METABOLIC PANEL [facility] COMPREHENSIVE METABOLIC PANEL Sodium [Moles/volume] in Serum or Plasma 141 mEq/L 134 - 153 [facility] Potassium [Moles/volume] in Serum or Plasma 4.0 mEq/L 3.6 - 5.0 [facility] Chloride [Moles/volume] in Serum or Plasma 102 mEq/L 98 - 107 [facility] Carbon dioxide, total [Moles/volume] in Serum or Plasma 26 MEQ/L 22 - 30 [facility] Glucose [Mass/volume] in Serum or Plasma 280 MG/DL 70 - 99 H [facility] BUN 45 MG/DL 7 - 21 [facility] Creatinine [Mass/volume] in Serum or Plasma 2.0 MG/DL 0.7 - 1.5 H [facility] BUN/CREAT 23 8 - 27 [facility] Protein [Mass/volume] in Serum or Plasma 5.9 G/DL 6.3 - 8.2 L [facility] Albumin [Mass/volume] in Serum or Plasma 4.1 G/DL 3.9 - 5.0 [facility] Globulin [Mass/volume] in Serum by calculation 1.8 GM/DL 2.4 - 3.2 L [facility] A/G RATIO 2.3 0.8 - 2.0 H [facility] Calcium [Mass/volume] in Serum or Plasma 10.1 MG/DL 8.4 - 10.2 [facility] Bilirubin.total [Mass/volume] in Serum or Plasma <0.7 MG/DL 0.2 - 1.3 [facility] Alkaline phosphatase [Enzymatic activity/volume] in Serum or Plasma 83 U/L 38 - 126 [facility] Aspartate aminotransferase [Enzymatic activity/volume] in Serum or Plasma 24 U/L 5 - 40 [facility] Alanine aminotransferase [Enzymatic activity/volume] in Seru m or Plasma 46 U/L 7 - 56 [facility] Anion gap 3 in Serum or Plasma 13.0 mmol/L 8.0 - 16.0 [facility] AGE 66 yrs [facility] al NON-AA GFR 27 mL/min [facility] AFR AMER GFR >60 [facility] pital Male GFR In terprentation 20-49 yrs >60 mL/min Normal 50-59 yrs >56 mL/min Normal 60-69 yrs >49 mL/min Normal 70-79yrs >42 mL/min Normal 80 and above >35 mL/min Normal Female GFR Interpretation 20-39 yrs >60 mL/min Normal 40-49 yrs >58 mL/min Normal 50-59 yrs >51 mL/min Normal 60-69 yrs >45 mL/min Normal 70-79 yrs >39 mL/min Normal 80 and above >32 mL/min Normal ID Date Data Source [id number] 05/16/2021 12:03:00 PM EDT [facility] Name Value Range Interpretation Code Description Data [facility](s) Supporting Document(s) Magnesium [Mass/volume] in Serum or Plasma 2.1 MG/DL 1.7 - 2.2 [facility] ID Date Data Source [id number] 05/08/2021 05:02:00 PM EDT [facility] Name Value Range Interpretation Code Description Data [facility](s) Supporting Document(s) Tacrolimus [Mass/volume] in Blood by LC/MS/MS 3.2 ng/mL 2.0-20.0 [facility] Trough (immediate ly following transplant) 15.0 Trough (steady state, 2 weeks or more after transplant): 3.0 - 8.0 Detection Limit = 1.0 Performed by LC-MS/MS technology. This test was developed and its performance characteristics determined by [facility]. It has not been cleared or approved by the Food and Drug Administration. ID Date Data Source [id number] 05/04/2021 03:09:00 PM EDT [facility] Name Value Range Interpretation Code Description Data [facility](s) Supporting Document(s) CVE PANEL [facility] al LIPID PANEL Cholesterol [Mass/volume] in Serum or Plasma 231 MG/DL 131 - 200 H [facility] Deprecated Triglyceride [Mass/volume] in Serum or Plasma 341 MG/DL 3 5 - 160 H [facility] HDL 62 MG/DL 29 - 86 [facility] Cholesterol in LDL [Mass/volume] in Serum or Plasma by Direc t assay 133 mg/dL 65 - 175 [facility] Cholesterol.total/Cholesterol in HDL [Mass Ratio] in Serum o r Plasma 3.7 3.2 - 4.4 [facility] LDL/HDL 2.15 1.47 - 3.22 [facility] ital CVE RISK CHOL/HDL LDL/HDLMEN: 1/2 AVERAGE 3.43 1.00 AVERAGE 4.97 3.55 2X AVERAGE 9.55 6.25 3X AVERAGE 23.99 7.99WOMEN: 1/2 AVERAGE 3.27 1.47 AVERAGE 4.44 3.22 2X AVERAGE 7.05 5.03 3X AVERAGE 11.04 6.14 ID Date Data Source [id number] 05/04/2021 03:08:00 PM EDT [facility] Name Value Range Interpretation Code Description Data [facility](s) Supporting Document(s) Magnesium [Mass/volume] in Serum or Plasma 2.6 MG/DL 1.7 - 2.2 H [facility] ID Date Data Source [id number] 05/04/2021 03:08:00 PM EDT [facility] Value Range Interpretation Code Description Data [facility](s) Supporting Document(s) COMPREHENSIVE METABOLIC PANEL [facility] COMPREHENSIVE METABOLIC PANEL Sodium [Moles/volume] in Serum or Plasma 140 mEq/L 134 - 153 [facility] Potassium [Moles/volume] in Serum or Plasma 4.0 mEq/L 3.6 - 5.0 [facility] Chloride [Moles/volume] in Serum or Plasma 100 mEq/L 98 - 107 [facility] Carbon dioxide, total [Moles/volume] in Serum or Plasma 27 MEQ/L 22 - 30 [facility] Glucose [Mass/volume] in Serum or Plasma 161 MG/DL 70 - 99 H [facility] BUN 53 MG/DL 7 - 21 H [facility] al Creatinine [Mass/volume] in Serum or Plasma 2.5 MG/DL 0.7 - 1.5 H [facility] BUN/CREAT 21 8 - 27 [facility] Protein [Mass/volume] in Serum or Plasma 5.9 G/DL 6.3 - 8.2 L [facility] Albumin [Mass/volume] in Serum or Plasma 3.9 G/DL 3.9 - 5.0 [facility] Globulin [Mass/volume] in Serum by calculation 2.0 GM/DL 2.4 - 3.2 L [facility] A/G RATIO 2.0 0.8 - 2.0 [facility] Calcium [Mass/volume] in Serum or Plasma 10.5 MG/DL 8.4 - 10.2 H [facility] Bilirubin.total [Mass/volume] in Serum or Plasma <0.7 MG/DL 0.2 - 1.3 [facility] Alkaline phosphatase [Enzymatic activity/volume] in Serum or Plasma 68 U/L 38 - 126 [facility] Aspartate aminotransferase [Enzymatic activity/volume] in Serum or Plasma 31 U/L 5 - 40 [facility] Alanine aminotransferase [Enzymatic activity/volume] in Seru m or Plasma 51 U/L 7 - 56 [facility] Anion gap 3 in Serum or Plasma 13.0 mmol/L 8.0 - 16.0 [facility]GE 66 [facility] 21 mL/min [facility] AFR AMER GFR >60 [facility] Male GFR In terprentation 20-49 yrs >60 mL/min Normal 50-59 yrs >56 mL/min Normal 60-69 yrs >49 mL/min Normal 70-79yrs >42 mL/min Normal 80 and above >35 mL/min Normal Female GFR Interpretation 20-39 yrs >60 mL/min Normal 40-49 yrs >58 mL/min Normal 50-59 yrs >51 mL/min Normal 60-69 yrs >45 mL/min Normal 70-79 yrs >39 mL/min Normal 80 and above >32 mL/min Normal ID Date Data Source [id number] 05/04/2021 02:45:00 PM EDT [facility] Name Value Range Interpretation Code Description Data [facility](s) Supporting Document(s) CBC W/AUTOMATED DIFF [facility] COMPLETE BLOOD COUNT Leukocytes [#/volume] in Blood by Automated count 5.9 10^3/uL 4.2 - 1 1.0 [facility] Erythrocytes [#/volume] in Blood by Automated count 3.53 10^6/uL 4. 20 - 5.40 L [facility] Hemoglobin [Mass/volume] in Blood 12.5 g/dL 12.0 - 16.0 [facility] Hematocrit [Volume Fraction] of Blood by Automated count 36.6 % 3 7.0 - 47.0 L [facility] Erythrocyte mean corpuscular volume [Entitic volume] b y Automated count 103.7 fL 81.0 - 101 H [facility] Erythrocyte mean corpuscular hemoglobin [Entitic mass] by Automated count 35.4 pg 27.0 - 34.0 H [facility] Erythrocyte mean corpuscular hemoglobin concentration [Mass/volume] by Automated count 34.2 g/dL 31.0 - 36.0 [facility] Erythrocyte distribution width [Ratio] by Automated count 14.0 % 11.5 - 14.5 [facility] Platelets [#/volume] in Blood by Automated count 130 10^3/uL 150 - 45 0 L [facility] Platelet mean volume [Entitic volume] in Blood by Automated count 11.2 fL 7.4 - 10.4 H [facility] Neutrophils/100 leukocytes in Blood by Automated count 58.0 % 37. 0 - 80.0 [facility] Lymphocytes/100 leukocytes in Blood by Manual count 28.9 % 25.0 - 40.0 [facility] Monocytes/100 leukocytes in Blood by Automated count 10.9 % 3.0 - 8.0 H [facility] Eosinophils/100 leukocytes in Blood by Automated count 1.4 % 0.0 - 7.0 [facility] Basophils/100 leukocytes in Blood by Automated count 0.3 % 0.0 - 2.5 [facility] %IG 0.5 % 0.0 - 0.0 H [facility] %NRBC 0.0 % 0.0 - 0.0 [facility] Neutrophils [#/volume] in Blood by Automated count 3.42 10^3/uL 2.00 - 6.90 [facility] Lymphocytes [#/volume] in Blood by Automated count 1.70 10^3/uL 0.60 - 3.40 [facility] Monocytes [#/volume] in Blood by Automated count 0.64 10^3/uL 0.00 - 0.90 [facility] Eosinophils [#/volume] in Blood by Automated count 0.08 10^3/uL 0.00 - 0.70 [facility] Basophils [#/volume] in Blood by Automated count 0.02 10^3/uL 0.00 - 0.20 [facility] #IG 0.03 10^3/uL 0.00 - 0.10 [facility]spital #NRBC 0.00 10^3/uL 0.00 - 0.00 [facility] MANUAL DIFF NOT INDICATED [facility] RBC MORPH NOT INDICATED [facility] spital ID Date Data Source [id number] 04/06/2021 09:34:46 AM EDT [facility] Name Value Range Interpretation Code Description Data [facility](s) Supporting Document(s) Tacrolimus [Mass/volume] in Blood 2.3 ng/mL [facility] Target ValuesImmediate post-transplant: 10 - 15 ng/mL First 6 months: 6 - 15 ng/mL Greater than 6 months: 6 - 15 ng/mL ID Date Data Source Ionized Calcium 02/18/2021 12:00:00 AM EDT eCW1 ([facility]) Name Value Range Interpretation Code Description Data [facility](s) Supporting Document(s) 4.9 4.5-5.3 IONIZED CALCIUM eCW1 ([facility]) ID Date Data Source [id number] 01/30/2021 04:05:00 PM EDT MEDENT ([facility] Name Value Range Interpretation Code Description Data [facility](s) Supporting Document(s) Troponin Laboratory test result MEDENT ([facility]) ID Date Data Source [id number] 01/30/2021 04:05:00 PM EDT [facility] Name Value Range Interpretation Code Description Data [facility](s) Supporting Document(s) White Blood Count 6.4 5.0-10.0 [facility] ([facility]) Platelets 133 172-450 [facility] Red Blood Count 3.58 4.00-5.40 [facility] ([facility]) Hemoglobin 12.2 MED[facility] ([facility]) Hematocrit 36.2 [facility] ([facility]) ID Date Data Source [id number] 10/07/2020 09:04:00 PM [facility] Name Value Range Interpretation Code Description Data [facility](s) Supporting Document(s) Tacrolimus [Mass/volume] in Blood by LC/MS/MS 2.6 ng/mL 2.0-20.0 [facility] Trough (immediate ly following transplant) 15.0 Trough (steady state, 2 weeks or more after transplant): 3.0 - 8.0 Detection Limit = 1.0 Performed by LC-MS/MS technology. This test was developed and its performance characteristics determined by [facility]. It has not been cleared or approved by the Food and Drug Administration. ID Date Data Source [id number] 10/05/2020 02:29:00 PM [facility] Name Value Range Interpretation Code Description Data [facility](s) Supporting Document(s) COMPREHENSIVE METABOLIC PANEL [facility] COMPREHENSIVE METABOLIC PANEL Sodium [Moles/volume] in Serum or Plasma 137 mEq/L 134 - 153 [facility] Potassium [Moles/volume] in Serum or Plasma 4.4 mEq/L 3.6 - 5.0 [facility] Chloride [Moles/volume] in Serum or Plasma 98 mEq/L 98 - 107 [facility] Carbon dioxide, total [Moles/volume] in Serum or Plasma 26 MEQ/L 22 - 30 [facility] Glucose [Mass/volume] in Serum or Plasma 88 MG/DL 65 - 110 [facility] BUN 30 MG/DL 7 - 21 H [facility] Creatinine [Mass/volume] in Serum or Plasma 1.3 MG/DL 0.7 - 1.5 [facility] BUN/CREAT 23 8 - 27 [facility] Protein [Mass/volume] in Serum or Plasma 6.2 G/DL 6.3 - 8.2 L [facility] Albumin [Mass/volume] in Serum or Plasma 4.2 G/DL 3.9 - 5.0 [facility] Globulin [Mass/volume] in Serum by calculation 2.0 GM/DL 2.4 - 3.2 L [facility] A/G RATIO 2.1 0.8 - 2.0 H [facility] Calcium [Mass/volume] in Serum or Plasma 10.1 MG/DL 8.4 - 10.2 [facility] Bilirubin.total [Mass/volume] in Serum or Plasma <0.7 MG/DL 0.2 - 1.3 [facility] Alkaline phosphatase [Enzymatic activity/volume] in Serum or Plasma 91 U/L 38 - 126 [facility] Aspartate aminotransferase [Enzymatic activity/volume] in Serum or Plasma 25 U/L 5 - 40 [facility] Alanine aminotransferase [Enzymatic activity/volume] in Seru m or Plasma 34 U/L 7 - 56 [facility] Anion gap 3 in Serum or Plasma 13.0 mmol/L 8.0 - 16.0 [facility]GE 65 [facility] 44 mL/min [facility] AFR AMER GFR >60 [facility] Male GFR In terprentation 20-49 yrs >60 mL/min Normal 50-59 yrs >56 mL/min Normal 60-69 yrs >49 mL/min Normal 70-79yrs >42 mL/min Normal 80 and above >35 mL/min Normal Female GFR Interpretation 20-39 yrs >60 mL/min Normal 40-49 yrs >58 mL/min Normal 50-59 yrs >51 mL/min Normal 60-69 yrs >45 mL/min Normal 70-79 yrs >39 mL/min Normal 80 and above >32 mL/min Normal ID Date Data Source [id number] 10/05/2020 02:29:00 PM EST [facility] Name Value Range Interpretation Code Description Data [facility] r[facility](s) Supporting Document(s) Lactate dehydrogenase [Enzymatic activity/volume] in Serum o r Plasma 293 U/L 135 - 214 H [facility] ID Date Data Source [id number] 10/05/2020 02:27:00 PM [facility] Name Value Range Interpretation Code Description Data [facility] r[facility](s) Supporting Document(s) Magnesium [Mass/volume] in Serum or Plasma 1.9 MG/DL 1.7 - 2.2 [facility] ID Date Data Source [id number] 10/05/2020 01:58:00 PM [facility] Name Value Range Interpretation Code Description Data [facility](s) Supporting Document(s) CBC W/AUTOMATED DIFF [facility] COMPLETE BLOOD COUNT Leukocytes [#/volume] in Blood by Automated count 6.5 10^3/uL 4.2 - 1 1.0 [facility] Erythrocytes [#/volume] in Blood by Automated count 3.73 10^6/uL 4. 20 - 5.40 L [facility] Hemoglobin [Mass/volume] in Blood 12.5 g/dL 12.0 - 16.0 [facility] Hematocrit [Volume Fraction] of Blood by Automated count 36.5 % 3 7.0 - 47.0 L [facility] Erythrocyte mean corpuscular volume [Entitic volume] by Auto mated count 97.9 fL 81.0 - 101 [facility] Erythrocyte mean corpuscular hemoglobin [Entitic mass] by Automated count 33.5 pg 27.0 - 34.0 [facility] Erythrocyte mean corpuscular hemoglobin concentration [Mass/volume] by Automated count 34.2 g/dL 31.0 - 36.0 [facility] Erythrocyte distribution width [Ratio] by Automated count 13.6 % 11.5 - 14.5 [facility] Platelets [#/volume] in Blood by Automated count 181 10^3/uL 150 - 45 0 [facility] Platelet mean volume [Entitic volume] in Blood by Automated count 9.9 fL 7.4 - 10.4 [facility] Neutrophils/100 leukocytes in Blood by Automated count 58.2 % 37. 0 - 80.0 [facility] Lymphocytes/100 leukocytes in Blood by Manual count 28.0 % 25.0 - 40.0 [facility] Monocytes/100 leukocytes in Blood by Automated count 11.1 % 3.0 - 8.0 H [facility] Eosinophils/100 leukocytes in Blood by Automated count 2.2 % 0.0 - 7.0 [facility] Basophils/100 leukocytes in Blood by Automated count 0.3 % 0.0 - 2.5 [facility] %IG 0.2 % 0.0 - 0.0 H [facility] %NRBC 0.0 % 0.0 - 0.0 [facility] al Neutrophils [#/volume] in Blood by Automated count 3.79 10^3/uL 2.00 - 6.90 [facility] Lymphocytes [#/volume] in Blood by Automated count 1.82 10^3/uL 0.60 - 3.40 [facility] Monocytes [#/volume] in Blood by Automated count 0.72 10^3/uL 0.00 - 0.90 [facility] Eosinophils [#/volume] in Blood by Automated count 0.14 10^3/uL 0.00 - 0.70 [facility] Basophils [#/volume] in Blood by Automated count 0.02 10^3/uL 0.00 - 0.20 [facility] #IG 0.01 10^3/uL 0.00 - 0.10 [facility] ospital #NRBC 0.00 10^3/uL 0.00 - 0.00 [facility] MANUAL DIFF NOT INDICATED [facility] RBC MORPH NOT INDICATED [facility] spital ID Date Data Source [id number] 09/05/2020 08:12:34 AM EDT [facility] Name Value Range Interpretation Code Description Data Aminta rce(s) Supporting Document(s) Progress Note [facility] [id number] lbm [file] [id number] ID Date Data Source [id number] 09/06/2020 07:27:46 AM EST [facility] Name Value Range Interpretation Code Description Data Aminta rce(s) Supporting Document(s) Specimen source [Identifier] of Unspecified specimen [facility] SARS-CoV-2 RNA 2018 nCoV Real-Time RT-PCR: NOT DETECTED [facility] Assay Performed [facility] 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[facility] Patient has symptoms related to [facility] When did you start to experience these symptoms [Date and time] [Phen X] [facility] Patient was hospitalized because of this condition [facility] patient was admitted to ICU for [facility] Patient resides in a congregate care setting [facility] status [facility] ID Date Data Source [id number] 09/05/2020 08:12:00 AM EDT [facility] Name Value Range Interpretation Code Description Data Aminta rce(s) Supporting Document(s) SARS-CoV-2 RNA [facility] This lab was ordered by [facility] and reported by [facility]. ID Date Data Source [id number] 09/02/2020 06:12:00 PM EDT [facility] Name Value Range Interpretation Code Description Data Aminta rce(s) Supporting Document(s) Tacrolimus [Mass/volume] in Blood by LC/MS/MS 3.4 ng/mL 2.0-20.0 [facility] Trough (immediate ly following transplant) 15.0 Trough (steady state, 2 weeks or more after transplant): 3.0 - 8.0 Detection Limit = 1.0 Performed by LC-MS/MS technology. This test was developed and its performance characteristics determined by [employer]. It has not been cleared or approved by the Food and Drug Administration. ID Date Data Source [id number] 08/31/2020 02:11:00 PM EDT [facility] Name Value Range Interpretation Code Description Data Aminta rce(s) Supporting Document(s) Lactate dehydrogenase [Enzymatic activity/volume] in Serum o r Plasma 275 U/L 135 - 214 H [facility] ID Date Data Source [id number] 08/31/2020 02:11:00 PM EDT [facility] Name Value Range Interpretation Code Description Data Aminta rce(s) Supporting Document(s) COMPREHENSIVE METABOLIC PANEL [facility] COMPREHENSIVE METABOLIC PANEL Sodium [Moles/volume] in Serum or Plasma 137 mEq/L 134 - 153 [facility] Potassium [Moles/volume] in Serum or Plasma 4.2 mEq/L 3.6 - 5.0 [facility] Chloride [Moles/volume] in Serum or Plasma 99 mEq/L 98 - 107 [facility] Carbon dioxide, total [Moles/volume] in Serum or Plasma 28 MEQ/L 22 - 30 [facility] Glucose [Mass/volume] in Serum or Plasma 142 MG/DL 65 - 110 H [facility] BUN 34 MG/DL 7 - [facility] Creatinine [Mass/volume] in Serum or Plasma 1.4 MG/DL 0.7 - 1.5 [facility] BUN/CREAT 24 8 - 27 [facility] Protein [Mass/volume] in Serum or Plasma 6.3 G/DL 6.3 - 8.2 [facility] Albumin [Mass/volume] in Serum or Plasma 4.1 G/DL 3.9 - 5.0 [facility] Globulin [Mass/volume] in Serum by calculation 2.2 GM/DL 2.4 - 3.2 L [facility] A/G RATIO 1.9 0.8 - 2.0 [facility] Calcium [Mass/volume] in Serum or Plasma 10.0 MG/DL 8.4 - 10.2 [facility] Bilirubin.total [Mass/volume] in Serum or Plasma <0.7 MG/DL 0.2 - 1.3 [facility] Alkaline phosphatase [Enzymatic activity/volume] in Serum or Plasma 94 U/L 38 - 126 [facility] Aspartate aminotransferase [Enzymatic activity/volume] in Serum or Plasma 22 U/L 5 - 40 [facility] Alanine aminotransferase [Enzymatic activity/volume] in Seru m or Plasma 31 U/L 7 - 56 [facility] Anion gap 3 in Serum or Plasma 10.0 mmol/L 8.0 - 16.0 [facility] AGE 65 yrs [facility] NON-AA GFR 40 mL/min [facility]a AFR AMER GFR >60 [facility] Male GFR In terprentation 20-49 yrs >60 mL/min Normal 50-59 yrs >56 mL/min Normal 60-69 yrs >49 mL/min Normal 70-79yrs >42 mL/min Normal 80 and above >35 mL/min Normal Female GFR Interpretation 20-39 yrs >60 mL/min Normal 40-49 yrs >58 mL/min Normal 50-59 yrs >51 mL/min Normal 60-69 yrs >45 mL/min Normal 70-79 yrs >39 mL/min Normal 80 and above >32 mL/min Normal ID Date Data Source [id number] 08/31/2020 02:11:00 PM EDT [facility] Name Value Range Interpretation Code Description Data Aminta rce(s) Supporting Document(s) Magnesium [Mass/volume] in Serum or Plasma 1.9 MG/DL 1.7 - 2.2 [facility] ID Date Data Source [id number] 08/31/2020 01:41:00 PM EDT [facility] Name Value Range Interpretation Code Description Data Aminta rce(s) Supporting Document(s) CBC W/AUTOMATED DIFF [facility] COMPLETE BLOOD COUNT Leukocytes [#/volume] in Blood by Automated count 5.7 10^3/uL 4.2 - 1 1.0 [facility] Erythrocytes [#/volume] in Blood by Automated count 3.67 10^6/uL 4. 20 - 5.40 L [facility] Hemoglobin [Mass/volume] in Blood 12.5 g/dL 12.0 - 16.0 [facility] Hematocrit [Volume Fraction] of Blood by Automated count 35.9 % 3 7.0 - 47.0 L [facility] Erythrocyte mean corpuscular volume [Entitic volume] by Auto mated count 97.8 fL 81.0 - 101 [facility] Erythrocyte mean corpuscular hemoglobin [Entitic mass] by Automated count 34.1 pg 27.0 - 34.0 H [facility] Erythrocyte mean corpuscular hemoglobin concentration [Mass/volume] by Automated count 34.8 g/dL 31.0 - 36.0 [facility] Erythrocyte distribution width [Ratio] by Automated count 13.4 % 11.5 - 14.5 [facility] Platelets [#/volume] in Blood by Automated count 159 10^3/uL 150 - 45 0 [facility] Platelet mean volume [Entitic volume] in Blood by Automated count 10.3 fL 7.4 - 10.4 [facility] Neutrophils/100 leukocytes in Blood by Automated count 61.6 % 37. 0 - 80.0 [facility] Lymphocytes/100 leukocytes in Blood by Manual count 24.6 % 25.0 - 40.0 L [facility] Monocytes/100 leukocytes in Blood by Automated count 10.5 % 3.0 - 8.0 H [facility] Eosinophils/100 leukocytes in Blood by Automated count 2.8 % 0.0 - 7.0 [facility] Basophils/100 leukocytes in Blood by Automated count 0.3 % 0.0 - 2.5 [facility] %IG 0.2 % 0.0 - 0.0 [facility] %[facility] 0.0 % 0.0 - 0.0 [facility] al Neutrophils [#/volume] in Blood by Automated count 3.54 10^3/uL 2.00 - 6.90 [facility] Lymphocytes [#/volume] in Blood by Automated count 1.41 10^3/uL 0.60 - 3.40 [facility] Monocytes [#/volume] in Blood by Automated count 0.60 10^3/uL 0.00 - 0.90 [facility] Eosinophils [#/volume] in Blood by Automated count 0.16 10^3/uL 0.00 - 0.70 [facility] Basophils [#/volume] in Blood by Automated count 0.02 10^3/uL 0.00 - 0.20 [facility] #IG 0.01 10^3/uL 0.00 - 0.10 [facility] #NRBC 0.00 10^3/uL 0.00 - 0.00 [facility] MANUAL DIFF NOT INDICATED [facility] RBC MORPH NOT INDICATED [facility] ID Date Data Source [id number] 08/18/2020 10:36:26 AM EDT [facility] Name Value Range Interpretation Code Description Data Aminta rce(s) Supporting Document(s) Progress Note [facility] XNBUNq4dAuNCWsTy73/UZUnsQPFlq9TfZGwgHTf1WFsuRAAxZ5HbQBC2kU7xWSN9ZCfRHyZiPfKeZXAd lbm [file] ICAgICAgICAgICAgICAgICAgICAgICAgICAgICAgICAgICAgICAgICAgICAgICAgICAgICAgICAgICAg ICAgICAgICAgICAgICAgICAgICAgDQogICAgICAgICAgICAgICAgICAgICAgICAgICAgICAgICAgICAg ICAgICAgICAgICAgICAgICAgICAgICAgICAgICAgIC AgICAgICAgICAgICAgICAgICAgICAgICAgICAgICAgDQogICAgICAgICAgICAgICAgICAgICAgICAgIC AgICAgICAgICAgICAgICAgICAgICAgICAgICAgICAgICAgICAgICAgICAgICAgICAgICAgICAgICAgIC AgICAgICAgICAgICAgDQogICAgICAgICAgICAgICAg ICAgICAgICAgICAgICAgICAgICAgICAgICAgICAgICAgICAgICAgICAgICAgICAgICAgICAgICAgICAg ICAgICAgICAgICAgICAgICAgICAgICAgDQogICAgICAgICAgICAgICAgICAgICAgICAgICAgICAgICAg ICAgICAgICAgICAgICAgICAgICAgICAgICAgICAgIC AgICAgICAgICAgICAgICAgICAgICAgICAgICAgICAgICAgDQogICAgICAgICAgICAgICAgICAgICAgIC AgICAgICAgICAgICAgICAgICAgICAgICAgICAgICAgICAgICAgICAgICAgICAgICAgICAgICAgICAgIC AgICAgICAgICAgICAgICAgDQogICAgICAgICAgICAg ICAgICAgICAgICAgICAgICAgICAgICAgICAgICAgICAgICAgICAgICAgICAgICAgICAgICAgICAgICAg ICAgICAgICAgICAgICAgICAgICAgICAgICAgDQogICAgICAgICAgICAgICAgICAgICAgICAgICAgICAg ICAgICAgICAgICAgICAgICAgICAgICAgICAgICAgIC AgICAgICAgICAgICAgICAgICAgICAgICAgICAgICAgICAgICAgDQogICAgICAgICAgICAgICAgICAgIC AgICAgICAgICAgICAgICAgICAgICAgICAgICAgICAgICAgICAgICAgICAgICAgICAgICAgICAgICAgIC AgICAgICAgICAgICAgICAgICAgDQogICAgICAgICAg ICAgICAgICAgICAgICAgICAgICAgICAgICAgICAgICAgICAgICAgICAgICAgICAgICAgICAgICAgICAg ALIzNMGjNRKjBHFqASTxFKTaVEVtZICeEDLsFJYjDHq4N3irMHPmJPKfVR5hWMj4Ti3+DQoNCmVuZHN0 nmGewM1GCU8sk3KeBZudCAPmb2RfCQq9TB6FBFGyXO ctNL1HAGoamd1JVECjIHHhkQKXk9dvXhLbJUL5LBGvNwraWV1YSVNoB8uodqOzLUOsRQUVTC5EZvLpX2 AfmO70ENIAKz8+JKgspaYxIovJHaP7RCDxl8HcEOq0WM3EHYTlEmogs1HyClDyFAZBBRgcNH1FAKS4YG ZqDCDfEe9NBJCjS660gzHvIP5KTw2BYoEpPS7ezk2X PqOfUTBvXhxZKwo6OBdxWK4ZxZBxRNfNah0opkBsqlUDg2KcqcIskGQNMUWvaVJTNEGqKKJuBKhiHZMY ZhOgcHPdGZ3qOo8wRCFaKQUrEoSwCIIVJN4GBFXsFFQrbBNrEBKaJUUBYO7NINysVWE6VRUvkyJiaQHb QSdiGZ4AQJYhozFyRTkjBYHZLHu+Vy3HYI8du1OeMD gjQHXiZT4fmf9NMCqBJjXqJ9L3cIDgV1B3SCoeCl7NBRKiSNHzOPqjJOMWVVkmJC4FWX1ypaE9UP1GjU KiHWEuLKYlmOWnCSk2F12urDXsJCsqAC4UGQV+Jovita+Tn5ANUDtPYYzHRUuRyOfPIBXFlUfA2TkP6YLu7 OgI9JvSQ08fXmdmlWhGGcbRP1YWM5zPCDzSAORLX0S iHZjpP1jzeQyTUAlVNCSUbQiZ33jqURfAAPrERY2TDKhXc9UWURsD0EfivIztSdoabKtGLGeBQXDAH4F XXorduJtnEWtlGzrWJ38cItkXI8HSs5HKjTaWG8lhf0ThZFaYi1DHTGwAf1UWUSwOQFzSGZlNAF4QNXc DxZnLInzZRStAJPhCAE4MFNxUWItZR7ZOeHrBLMcQH bnWVVlWZWuFCSekk8WDJLrIAJoYYjhDLRlKZKrHEWhFYhuGNWtIPJfGRW9DPEuJDOnNQ2IXrIuIZShEG RaCxaqCYDrARJoey0NCJWyUBEdLnBfLuTzRRZxQZBmVDwjULVoBUXuYRgoCKQxJAVdPG4DQeLeFVZePF FbFTzpPPCfWWEkjf8POGWuKSRuUcK2UiYeWFWsISPo MAsjHNLnBZT9BEN8MLRjNYEuSO6SRhMxFELwVHO8GczsJQTaAIOcyk0TLEHrLHSuKEcwLBDiZNCpLUAo DPgtGARqLPC9RaL9KUWkRESdMT0LFbQeAUXpZIF6WZKwTKKfFTLdrn2FFEFtSNRdFqb9GWGpYWPwOTPq DWwfUTXyEVP8OJL5HCDyDZPoCH7DNgKwIKTnIGolQI EdHNGfVANyuj2ZYHPkVGMpIpY1QDJaIGWmGQXdQKutYKRsOAK2QKP7XTWdTCCqVR6WShGeMQSfMDtcNN yuHQQlKBBvhn2ZDQDaZLRpCDE3VZQhLSNqBZMlWQq7eiGxlGTaOCi5AR4YW7WiziHhAlPUYo8As624IY PrNIBnTm8HD5eqEp7lXMJqSZQTKy5IQVi4MYV6LON6 R9MpXXcaS4E1RbJgEPWuUokjFyryUss2GjR+CQkhYTG4QFX0I3N9ZMJqWQNsPWI1HIEdI3B2Y6K1HObx GQ8xRNNBZy1+AAeozCGdeEikBQZDQtZ6VEc9XHksQYKFZq4E ID Date Data Source [id number] 08/19/2020 11:46:01 AM EDT [facility] Name Value Range Interpretation Code Description Data Aminta rce(s) Supporting Document(s) Specimen source [Identifier] of Unspecified specimen [facility] SARS-CoV-2 RNA 2018 nCoV Real-Time RT-PCR: NOT DETECTED [facility] Assay Performed [facility] Initial validation was performed by the Centers for Disease Control and Prevention (CDC) and additionally validated by the Dept. of Pathology [facility]. Negative results do not preclude SARS-CoV-2 infection and should not be used as the sole basis for patient management decisions.Additional information is available on the following FDA websites for health care providers and patients. https://www.fda.gov/media/516636/download, https://www.fda.gov/media/205841/download. 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[facility] Patient has symptoms related to [facility] When did you start to experience these symptoms [Date and time] [Phen X] [facility] Patient was hospitalized because of this condition [facility] patient was admitted to ICU for [facility] Patient resides in a congregate care setting [facility] status [facility] ID Date Data Source [id number] 08/18/2020 10:36:00 AM EDT [facility] Name Value Range Interpretation Code Description Data Aminta rce(s) Supporting Document(s) SARS-CoV-2 RNA [facility] This lab was ordered by [facility] and reported by [facility]. ID Date Data Source [id number] 07/10/2020 09:43:00 PM EDT [facility] Name Value Range Interpretation Code Description Data Aminta rce(s) Supporting Document(s) Tacrolimus [Mass/volume] in Blood by LC/MS/MS 1.9 ng/mL 2.0-20.0 L [facility] Trough (immediate ly following transplant) 15.0 Trough (steady state, 2 weeks or more after transplant): 3.0 - 8.0 Detection Limit = 1.0 Performed by LC-MS/MS technology. This test was developed and its performance characteristics determined by [employer]. It has not been cleared or approved by the Food and Drug Administration. ID Date Data Source [id number] 07/07/2020 01:33:00 PM EDT [facility] Name Value Range Interpretation Code Description Data Aminta rce(s) Supporting Document(s) Lactate dehydrogenase [Enzymatic activity/volume] in Serum o r Plasma 301 U/L 135 - 214 H [facility] ID Date Data Source [id number] 07/07/2020 01:33:00 PM EDT [facility] Name Value Range Interpretation Code Description Data Aminta rce(s) Supporting Document(s) COMPREHENSIVE METABOLIC PANEL [facility] COMPREHENSIVE METABOLIC PANEL Sodium [Moles/volume] in Serum or Plasma 135 mEq/L 134 - 153 [facility] Potassium [Moles/volume] in Serum or Plasma 4.3 mEq/L 3.6 - 5.0 [facility] Chloride [Moles/volume] in Serum or Plasma 99 mEq/L 98 - 107 [facility] Carbon dioxide, total [Moles/volume] in Serum or Plasma 24 MEQ/L 22 - 30 [facility] Glucose [Mass/volume] in Serum or Plasma 92 MG/DL 65 - 110 [facility] BUN 34 MG/DL 7 - 21 H [facility] Creatinine [Mass/volume] in Serum or Plasma 1.5 MG/DL 0.7 - 1.5 [facility] BUN/CREAT 23 8 - 27 [facility] Protein [Mass/volume] in Serum or Plasma 5.9 G/DL 6.3 - 8.2 L [facility] Albumin [Mass/volume] in Serum or Plasma 3.9 G/DL 3.9 - 5.0 [facility] Globulin [Mass/volume] in Serum by calculation 2.0 GM/DL 2.4 - 3.2 L [facility] A/G RATIO 2.0 0.8 - 2.0 [facility] Calcium [Mass/volume] in Serum or Plasma 9.7 MG/DL 8.4 - 10.2 [facility] Bilirubin.total [Mass/volume] in Serum or Plasma <0.7 MG/DL 0.2 - 1.3 [facility] Alkaline phosphatase [Enzymatic activity/volume] in Serum or Plasma 91 U/L 38 - 126 [facility] Aspartate aminotransferase [Enzymatic activity/volume] in Serum or Plasma 23 U/L 5 - 40 [facility] Alanine aminotransferase [Enzymatic activity/volume] in Seru m or Plasma 29 U/L 7 - 56 [facility] Anion gap 3 in Serum or Plasma 12.0 mmol/L 8.0 - 16.0 [facility] AGE 65 y[facility] A[facility] AMER GFR >60 [facility] Male GFR In terprentation 20-49 yrs >60 mL/min Normal 50-59 yrs >56 mL/min Normal 60-69 yrs >49 mL/min Normal 70-79yrs >42 mL/min Normal 80 and above >35 mL/min Normal Female GFR Interpretation 20-39 yrs >60 mL/min Normal 40-49 yrs >58 mL/min Normal 50-59 yrs >51 mL/min Normal 60-69 yrs >45 mL/min Normal 70-79 yrs >39 mL/min Normal 80 and above >32 mL/min Normal ID Date Data Source [id number] 07/07/2020 01:23:00 PM EDT [facility] Name Value Range Interpretation Code Description Data Aminta rce(s) Supporting Document(s) Magnesium [Mass/volume] in Serum or Plasma 1.7 MG/DL 1.7 - 2.2 [facility] ID Date Data Source [id number] 07/07/2020 01:16:00 PM EDT [facility] Name Value Range Interpretation Code Description Data Aminta rce(s) Supporting Document(s) CBC W/AUTOMATED DIFF [facility] COMPLETE BLOOD COUNT Leukocytes [#/volume] in Blood by Automated count 5.6 10^3/uL 4.2 - 1 1.0 [facility] Erythrocytes [#/volume] in Blood by Automated count 3.27 10^6/uL 4. 20 - 5.40 L [facility] Hemoglobin [Mass/volume] in Blood 11.0 g/dL 12.0 - 16.0 L [facility] Hematocrit [Volume Fraction] of Blood by Automated count 31.9 % 3 7.0 - 47.0 L [facility] Erythrocyte mean corpuscular volume [Entitic volume] by Auto mated count 97.6 fL 81.0 - 101 [facility] Erythrocyte mean corpuscular hemoglobin [Entitic mass] by Automated count 33.6 pg 27.0 - 34.0 [facility] Erythrocyte mean corpuscular hemoglobin concentration [Mass/volume] by Automated count 34.5 g/dL 31.0 - 36.0 [facility] Erythrocyte distribution width [Ratio] by Automated count 13.3 % 11.5 - 14.5 [facility] Platelets [#/volume] in Blood by Automated count 150 10^3/uL 150 - 45 0 [facility] Platelet mean volume [Entitic volume] in Blood by Automated count 10.0 fL 7.4 - 10.4 [facility] Neutrophils/100 leukocytes in Blood by Automated count 60.9 % 37. 0 - 80.0 [facility] Lymphocytes/100 leukocytes in Blood by Manual count 24.6 % 25.0 - 40.0 L [facility] Monocytes/100 leukocytes in Blood by Automated count 11.2 % 3.0 - 8.0 H [facility] Eosinophils/100 leukocytes in Blood by Automated count 2.7 % 0.0 - 7.0 [facility] Basophils/100 leukocytes in Blood by Automated count 0.4 % 0.0 - 2.5 [facility] %IG 0.2 % 0.0 - 0.0 H [facility] %NRBC 0.0 % 0.0 - 0.0 [facility] Neutrophils [#/volume] in Blood by Automated count 3.43 10^3/uL 2.00 - 6.90 [facility] Lymphocytes [#/volume] in Blood by Automated count 1.38 10^3/uL 0.60 - 3.40 [facility] Monocytes [#/volume] in Blood by Automated count 0.63 10^3/uL 0.00 - 0.90 [facility] Eosinophils [#/volume] in Blood by Automated count 0.15 10^3/uL 0.00 - 0.70 [facility] Basophils [#/volume] in Blood by Automated count 0.02 10^3/uL 0.00 - 0.20 [facility] #IG 0.01 10^3/uL 0.00 - 0.10 [facility] #NRBC 0.00 10^3/uL 0.00 - 0.00 [facility] MANUAL DIFF NOT INDICATED [facility] RBC MORPH NOT INDICATED [facility] Procedure Social History Code Duration Value Status Description Data Source(s ) Smoking 08/11/2021 12:00:00 AM EDT Never Smoker completed Never S moker [email or web address] ([facility]) Smoking 05/11/2021 12:00:00 AM EDT Never Smoker completed Never S moker [email or web address] ([facility]) Smoking 05/11/2021 12:00:00 AM EDT Never Smoker completed Never S moker [email or web address] ([facility]) Smoking 05/11/2021 12:00:00 AM EDT Never Smoker completed Never S moker [email or web address] ([facility]) Smoking 05/11/2021 12:00:00 AM EDT Never Smoker completed Never S moker [email or web address] ([facility]) Smoking 05/04/2021 12:00:00 AM EDT Never Smoker completed Never S moker [email or web address] ([facility]) Smoking 05/04/2021 12:00:00 AM EDT Never Smoker completed Never S moker [email or web address] ([facility]) Smoking 04/01/2021 12:00:00 AM EDT Never Smoker completed Never S moker [email or web address] ([facility]) Smoking 04/01/2021 12:00:00 AM EDT Never Smoker completed Never S moker [email or web address] ([facility]) Smoking 04/01/2021 12:00:00 AM EDT Never Smoker completed Never S moker [email or web address] ([facility]) Smoking 04/01/2021 12:00:00 AM EDT Never Smoker completed Never S moker [email or web address] ([facility]) Smoking 04/01/2021 12:00:00 AM EDT Never Smoker completed Never S moker [email or web address] ([facility]) Smoking 03/04/2021 12:00:00 AM EDT Never Smoker completed Never S moker [email or web address] ([facility]) Smoking 03/04/2021 12:00:00 AM EDT Never Smoker completed Never S moker [email or web address] ([facility]) Smoking 03/04/2021 12:00:00 AM EDT Never Smoker completed Never S moker [email or web address] ([facility]) Smoking 03/04/2021 12:00:00 AM EDT Never Smoker completed Never S moker [email or web address] ([facility]) Smoking 03/04/2021 12:00:00 AM EDT Never Smoker completed Never S moker [email or web address] ([facility]) Smoking 03/04/2021 12:00:00 AM EDT Never Smoker completed Never S moker [email or web address] ([facility]) Smoking 02/18/2021 12:00:00 AM EDT Never Smoker completed Never S moker [email or web address] ([facility]) Smoking 02/18/2021 12:00:00 AM EDT Never Smoker completed Never S moker [email or web address] ([facility]) Smoking 02/18/2021 12:00:00 AM EDT Never Smoker completed Never S moker [email or web address] ([facility]) Smoking 02/18/2021 12:00:00 AM EDT Never Smoker completed Never S moker [email or web address] ([facility]) Smoking 02/18/2021 12:00:00 AM EDT Never Smoker completed Never S moker [email or web address] ([facility]) Smoking 02/10/2021 12:00:00 AM EDT Patient has never smoked co mpleted Patient has never smoked [facility] ([facility]) Smoking 02/04/2021 12:00:00 AM EDT Never Smoker completed Never S moker [email or web address] ([facility]) Smoking 02/04/2021 12:00:00 AM EDT Never Smoker completed Never S moker [email or web address] ([facility]) Smoking 01/27/2021 12:00:00 AM EDT Never Smoker completed Never S moker [email or web address] ([facility]) Smoking 01/27/2021 12:00:00 AM EDT Never Smoker completed Never S moker [email or web address] ([facility]) Smoking 01/19/2021 12:00:00 AM EDT Never Smoker completed Never S moker [email or web address] ([facility]) Smoking 12/15/2020 12:00:00 AM EST Never Smoker completed Never S moker [email or web address] ([facility]) Smoking 12/15/2020 12:00:00 AM EST Never Smoker completed Never S moker [email or web address] ([facility]) Smoking 12/15/2020 12:00:00 AM EST Never Smoker completed Never S moker [email or web address] ([facility]) Smoking 12/15/2020 12:00:00 AM EST Never Smoker completed Never S moker [email or web address] ([facility]) Smoking 11/17/2020 12:00:00 AM EST Never Smoker completed Never S moker [email or web address] ([facility]) Smoking 11/17/2020 12:00:00 AM EST Never Smoker completed Never S moker [email or web address] ([facility]) Smoking 10/22/2020 12:00:00 AM EST Never Smoker completed Never S moker [email or web address] ([facility]) Smoking 10/22/2020 12:00:00 AM EST Never Smoker completed Never S moker [email or web address] ([facility]) Smoking 10/22/2020 12:00:00 AM EST Never Smoker completed Never S moker [email or web address] ([facility]) Caffeine Use Details 10/13/2020 12:00:00 AM EST completed soda, 1 cup [employer] ([facility]) Smoking 10/13/2020 12:00:00 AM EST Unknown if ever smoked comp leted Unknown if ever smoked [employer] ([facility]) Smoking 09/24/2020 12:00:00 AM EST Patient has never smoked co mpleted Patient has never smoked MEDENT ([facility], ) Smoking 09/22/2020 12:00:00 AM EST Never Smoker completed Never S moker eCW1 ([facility]) Smoking 09/22/2020 12:00:00 AM EST Never Smoker completed Never S moker eCW1 ([facility]) Smoking 09/22/2020 12:00:00 AM EST Never Smoker completed Never S moker eCW1 ([facility]) Smoking 08/11/2020 12:00:00 AM EDT Never Smoker completed Never S moker eCW1 ([facility]) Smoking 08/11/2020 12:00:00 AM EDT Never Smoker completed Never S moker eCW1 ([facility]) Smoking 08/11/2020 12:00:00 AM EDT Never Smoker completed Never S moker eCW1 ([facility]) Smoking 08/11/2020 12:00:00 AM EDT Never Smoker completed Never S moker eCW1 ([facility]) Smoking 08/11/2020 12:00:00 AM EDT Never Smoker completed Never S moker eCW1 ([facility]) Smoking 08/11/2020 12:00:00 AM EDT Never Smoker completed Never S moker eCW1 ([facility]) Smoking 08/11/2020 12:00:00 AM EDT Never Smoker completed Never S moker eCW1 ([facility]) Smoking 08/11/2020 12:00:00 AM EDT Never Smoker completed Never S moker eCW1 ([facility]) Smoking 08/11/2020 12:00:00 AM EDT Never Smoker completed Never S moker eCW1 ([facility]) Smoking 08/04/2020 12:00:00 AM EDT Never Smoker completed Never S moker eCW1 ([facility]) Smoking 08/04/2020 12:00:00 AM EDT Never Smoker completed Never S moker eCW1 ([facility]) Smoking 08/04/2020 12:00:00 AM EDT Never Smoker completed Never S moremedios eCW1 ([facility]) Vital Signs ID Date Data Source UNK Name Value Range Interpretation Code Description Data Source(s) Body weight 213.0 [lb_av] 213.0 [lb_av] eCW1 ([facility]) Body weight 96.62 kg 96.62 kg W1 ([facility]) Body height 65.5 [in_i] 65.5 [in_i] eCW1 ([facility]) Body mass index (BMI) [Ratio] 34.90 kg/m2 34.90 kg/m2 W1 ([facility]) Heart rate 59 /min 59 /min eCW1 ([facility]) Respiratory rate 18 /min 18 /min eCW1 ([facility] Body temperature 97.9 [degF] 97.9 [degF] eCW1 ( [facility]) Systolic blood pressure 122 mm[Hg] 122 mm[Hg] e CW1 ([facility]) Diastolic blood pressure 60 mm[Hg] 60 mm[Hg] eCW1 ([facility]) Systolic blood pressure 118 mm[Hg] 118 mm[Hg] M EDENT ([facility]) Diastolic blood pressure 70 mm[Hg] 70 mm[Hg] MEDENT ([facility]) Heart rate 63 /min 63 /min MEDENT ([facility]) Body temperature 97.5 [degF] 97.5 [degF] MEDENT ([facility]) Respiratory rate 16 /min 16 /min MEDENT ( [facility]) Oxygen saturation in Arterial blood by Pulse oximetry 100 % 100 % MEDENT ([facility]) Body weight 222 [lb_av] 222 [lb_av] eCW1 ([facility]) Body weight 100.7 kg 100.7 kg eCW1 ([facility]) Body height 65.5 [in_i] 65.5 [in_i] eCW1 ([facility]) Body mass index (BMI) [Ratio] 36.38 kg/m2 36.38 kg/m2 eCW1 ([facility]) Heart rate 62 /min 62 /min eCW1 ([facility]) Respiratory rate 18 /min 18 /min eCW1 ([facility]) Body temperature 97.8 [degF] 97.8 [degF] eCW1 ( [facility]) Systolic blood pressure 126 mm[Hg] 126 mm[Hg] e CW1 ([facility]) Diastolic blood pressure 66 mm[Hg] 66 mm[Hg] eCW1 ([facility]) Body weight 219 [lb_av] 219 [lb_av] eCW1 ([facility]) Body height 65.5 [in_i] 65.5 [in_i] eCW1 ([facility]) Body mass index (BMI) [Ratio] 35.89 kg/m2 35.89 kg/m2 eCW1 ([facility]) Heart rate 65 /min 65 /min eCW1 ([facility]) Respiratory rate 16 /min 16 /min eCW1 ([facility]) Body temperature 98.0 [degF] 98.0 [degF] eCW1 ( [facility]) Systolic blood pressure 116 mm[Hg] 116 mm[Hg] e CW1 ([facility]) Diastolic blood pressure 55 mm[Hg] 55 mm[Hg] eCW1 ([facility]) Body weight 225 [lb_av] 225 [lb_av] eCW1 ([facility]) Body height 65.5 [in_i] 65.5 [in_i] eCW1 ([facility]) Body mass index (BMI) [Ratio] 36.87 kg/m2 36.87 kg/m2 eCW1 ([facility]) Heart rate 66 /min 66 /min eCW1 ([facility]) Respiratory rate 17 /min 17 /min eCW1 ([facility]) Body temperature 98.5 [degF] 98.5 [degF] eCW1 ( [facility]) Systolic blood pressure 133 mm[Hg] 133 mm[Hg] e CW1 ([facility]) Diastolic blood pressure 64 mm[Hg] 64 mm[Hg] eCW1 ([facility]) Body weight 224 [lb_av] 224 [lb_av] eCW1 ([facility]) Body height 65.5 [in_i] 65.5 [in_i] eCW1 ([facility]) Body mass index (BMI) [Ratio] 36.70 kg/m2 36.70 kg/m2 eCW1 ([facility]) Heart rate 68 /min 68 /min eCW1 ([facility]) Respiratory rate 18 /min 18 /min eCW1 ([facility]) Body temperature 97.8 [degF] 97.8 [degF] eCW1 ( [facility]) Systolic blood pressure 153 mm[Hg] 153 mm[Hg] e CW1 ([facility]) Diastolic blood pressure 69 mm[Hg] 69 mm[Hg] eCW1 ([facility]) Body weight 222.00 [lb_av] 222.00 [lb_av] LOLI T ([facility]) Body height 65 [in_i] 65 [in_i] MEDENT [facility] 5'5" Body mass index (BMI) [Ratio] 36.9 kg/m2 36.9 k g/m2 MEDENT ([facility]) Heart rate 61 /min 61 /min MEDENT ([facility]) Systolic blood pressure--sitting 142 mm[Hg] 142 mm[Hg] MEDENT ([facility]) Ra, large cuff Diastolic blood pressure--sitting 78 mm[Hg] 78 mm[Hg] MEDENT ([facility]) Ra, large cuff Systolic blood pressure--supine 148 mm[Hg] 148 mm[Hg] MEDENT ([facility]) Ra, large cuff Diastolic blood pressure--supine 80 mm[Hg] 80 mm[Hg] MEDENT ([facility]) Ra, large cuff Systolic blood pressure--standing 138 mm[Hg] 13 8 mm[Hg] MEDENT ([facility]) Ra, large cuff Diastolic blood pressure--standing 78 mm[Hg] 7 8 mm[Hg] MEDENT ([facility]) Ra, large cuff Body weight 223 [lb_av] 223 [lb_av] eCW1 ([facility]) Body height 65.5 [in_i] 65.5 [in_i] eCW1 ([facility]) Body mass index (BMI) [Ratio] 36.54 kg/m2 36.54 kg/m2 eCW1 ([facility]) Heart rate 65 /min 65 /min eCW1 ([facility]) Respiratory rate 18 /min 18 /min eCW1 ([facility]) Body temperature 97.9 [degF] 97.9 [degF] eCW1 ( [facility]) Systolic blood pressure 128 mm[Hg] 128 mm[Hg] e CW1 ([facility]) Diastolic blood pressure mm[Hg] eCW1 ([facility]) Systolic blood pressure 128 mm[Hg] 128 mm[Hg] M EDBLADE ([facility], ) Diastolic blood pressure 80 mm[Hg] 80 mm[Hg] [facility] Heart rate 72 /min 72 /min [facility] ([facility], ) Oxygen saturation in Arterial blood by Pulse oximetry 97 % 97 % [facility] ([facility], ) Room Air Body height 66 [in_i] 66 [in_i] [facility] 5'6" Body weight 214.00 [lb_av] 214.00 [lb_av] MEDEN T ([facility], ) Body mass index (BMI) [Ratio] 34.5 kg/m2 34.5 k g/m2 [facility] ([facility], ) [place] body weight 130 [lb_av] 130 [lb_av] MEDEN T ([facility], ) Body weight 97.[address] [facility] ([facility], ) Body weight 219 [lb_av] 219 [lb_av] eCW1 ([facility]) Body height 65.5 [in_i] 65.5 [in_i] eCW1 ([facility]) Body mass index (BMI) [Ratio] 35.89 kg/m2 35.89 kg/m2 eCW1 ([facility]) Heart rate 81 /min 81 /min eCW1 ([facility]) Respiratory rate 18 /min 18 /min eCW1 ([facility]) Body temperature 96.3 [degF] 96.3 [degF] eCW1 ( [facility]) Systolic blood pressure 131 mm[Hg] 131 mm[Hg] e CW1 ([facility]) Diastolic blood pressure 62 mm[Hg] 62 mm[Hg] eCW1 ([facility]) Body weight 218 [lb_av] 218 [lb_av] eCW1 ([facility]) Body height 65.5 [in_i] 65.5 [in_i] eCW1 ([facility]) Body mass index (BMI) [Ratio] 35.72 kg/m2 35.72 kg/m2 eCW1 ([facility]) Heart rate 60 /min 60 /min eCW1 ([facility]) Respiratory rate 18 /min 18 /min eCW1 ([facility]) Body temperature 97.6 [degF] 97.6 [degF] eCW1 ( [facility]) Systolic blood pressure 161 mm[Hg] 161 mm[Hg] e CW1 ([facility]) Diastolic blood pressure 72 mm[Hg] 72 mm[Hg] eCW1 ([facility]) Patient Treatment Plan of Care Planned Activity Planned Date Details Description Data Source (s) Lorazepam 1 MG Oral Tablet 06/15/2021 12:00:00 AM EDT eCW1 ([facility]) Mupirocin 20 MG/ML Topical Cream 05/04/2021 12:00:00 AM EDT eCW1 ([facility]) carbamide peroxide 65 MG/ML Otic Solution [Debrox] 05/04/2021 12 :00:00 AM EDT eCW1 ([facility]) Mupirocin 20 MG/ML Topical Cream 05/04/2021 12:00:00 AM EDT eCW1 ([facility]) carbamide peroxide 65 MG/ML Otic Solution [Debrox] 05/04/2021 12 :00:00 AM EDT eCW1 ([facility]) Escitalopram 5 MG Oral Tablet [Lexapro] 03/26/2021 12:00:00 AM EDT eCW1 ([facility]) Escitalopram 5 MG Oral Tablet [Lexapro] 03/26/2021 12:00:00 AM EDT eCW1 ([facility]) Escitalopram 5 MG Oral Tablet [Lexapro] 03/26/2021 12:00:00 AM EDT eCW1 ([facility]) Escitalopram 5 MG Oral Tablet [Lexapro] 12/15/2020 12:00:00 AM EST eCW1 ([facility]) Escitalopram 5 MG Oral Tablet [Lexapro] 12/15/2020 12:00:00 AM EST eCW1 ([facility]) Escitalopram 5 MG Oral Tablet [Lexapro] 12/15/2020 12:00:00 AM EST eCW1 ([facility]) Escitalopram 5 MG Oral Tablet [Lexapro] 12/15/2020 12:00:00 AM EST eCW1 ([facility]) Escitalopram 5 MG Oral Tablet [Lexapro] 12/15/2020 12:00:00 AM EST eCW1 ([facility]) Escitalopram 5 MG Oral Tablet [Lexapro] 12/15/2020 12:00:00 AM EST eCW1 ([facility]) Escitalopram 5 MG Oral Tablet [Lexapro] 12/15/2020 12:00:00 AM EST eCW1 ([facility]) Escitalopram 5 MG Oral Tablet [Lexapro] 12/15/2020 12:00:00 AM EST eCW1 ([facility]) Escitalopram 5 MG Oral Tablet [Lexapro] 12/15/2020 12:00:00 AM EST eCW1 ([facility]) Escitalopram 5 MG Oral Tablet [Lexapro] 12/15/2020 12:00:00 AM EST eCW1 ([facility]) Cephalexin 500 MG Oral Capsule [Keflex] 09/22/2020 12:00:00 AM EST eCW1 ([facility]) Cephalexin 500 MG Oral Capsule [Keflex] 09/22/2020 12:00:00 AM EST eCW1 ([facility]) Cephalexin 500 MG Oral Capsule [Keflex] 09/22/2020 12:00:00 AM EST eCW1 ([facility]) Ondansetron 4 MG Disintegrating Oral Tablet 08/18/2020 12:00:00 AM EDT eCW1 ([facility]) Ondansetron 4 MG Disintegrating Oral Tablet 08/18/2020 12:00:00 AM EDT eCW1 ([facility]) Ondansetron 4 MG Disintegrating Oral Tablet 08/18/2020 12:00:00 AM EDT eCW1 ([facility]) Ondansetron 4 MG Disintegrating Oral Tablet 08/18/2020 12:00:00 AM EDT eCW1 ([facility]) Ondansetron 4 MG Disintegrating Oral Tablet 08/18/2020 12:00:00 AM EDT eCW1 ([facility]) Ondansetron 4 MG Disintegrating Oral Tablet 08/18/2020 12:00:00 AM EDT eCW1 ([facility]) Ondansetron 4 MG Disintegrating Oral Tablet 08/18/2020 12:00:00 AM EDT eCW1 ([facility]) Ondansetron 4 MG Disintegrating Oral Tablet 08/18/2020 12:00:00 AM EDT eCW1 ([facility]) Ondansetron 4 MG Disintegrating Oral Tablet 08/18/2020 12:00:00 AM EDT eCW1 ([facility])
[2021-08-24 19:58] LABS: BASO % 0.5 % (0.0-1.0); HEMATOCRIT 28.2 % (36.0-47.0); HEMOGLOBIN 9.5 g/dl (12.0-15.5); LYMPH # 1.2 10^3/uL (1.5-5.0); LYMPH % 22.5 % (24.0-44.0); MEAN CORPUSCULAR HEMOGLOBIN 35.3 pg (27.0-33.0); MEAN CORPUSCULAR HGB CONC 33.7 g/dl (32.0-36.5); MEAN CORPUSCULAR VOLUME 104.8 fl (80.0-96.0); MONO # 0.7 10^3/uL (0.0-0.8); MONO % 12.5 % (2.0-8.0); NEUTROPHILS # 3.5 10^3/uL (1.5-8.5); NEUTROPHILS % 64.3 % (36.0-66.0); PLATELET COUNT, AUTOMATED 162 10^3/uL (150-450); RED BLOOD COUNT 2.69 10^6/uL (4.00-5.40); WHITE BLOOD COUNT 5.5 10^3/uL (4.0-10.0)
--- OUTSIDE RECORDS SUMMARY | 2021-08-24 20:17 | CCD ---
Author Author [facility] 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 [facility] Address Unknown Phone Unavailable Care Team Providers Care Motion Picture Equipment Machinist Name Role Phone Rosendo Pelayo MD Unavailable [...] R SHASHANK PA Unavailable Unavailable BUNKER, R SHASHNAK PA Unavailable Unavailable BUNKER, R SHASHANK PA [...] WEDOW, AILEEN Unavailable Unavailable BUMBANAC, A STAR SECURITY AND PRIVACY CONSULTANT Unavailable Unavailable BUMBANAC, A STAR SECURITY AND PRIVACY CONSULTANT Unavailable Unavailable BUMBANAC, A STAR SECURITY AND PRIVACY CONSULTANT Unavailable Unavailable BUMBANAC, A STAR SECURITY AND PRIVACY CONSULTANT Unavailable Unavailable BUMBANAC, A STAR SECURITY AND PRIVACY CONSULTANT Unavailable Unavailable BUMBANAC, A STAR SECURITY AND PRIVACY CONSULTANT Unavailable Unavailable BUMBANAC, A STAR SECURITY AND PRIVACY CONSULTANT Unavailable Unavailable BUMBANAC, A STAR SECURITY AND PRIVACY CONSULTANT Unavailable Unavailable BUMBANAC, A STAR SECURITY AND PRIVACY CONSULTANT Unavailable Unavailable BUMBANAC, A STAR SECURITY AND PRIVACY CONSULTANT Unavailable Unavailable BUMBANAC, A STAR SECURITY AND PRIVACY CONSULTANT Unavailable Unavailable BUMBANAC, A STAR SECURITY AND PRIVACY CONSULTANT Unavailable Unavailable BUMBANAC, A STAR SECURITY AND PRIVACY CONSULTANT Unavailable Unavailable BUMBANAC, A STAR SECURITY AND PRIVACY CONSULTANT Unavailable Unavailable BUMBANAC, A STAR SECURITY AND PRIVACY CONSULTANT Unavailable Unavailable BUMBANAC, A STAR SECURITY AND PRIVACY CONSULTANT Unavailable Unavailable BUMBANAC, A STAR SECURITY AND PRIVACY CONSULTANT Unavailable Unavailable BUMBANAC, A STAR SECURITY AND PRIVACY CONSULTANT Unavailable Unavailable BUMBANAC, A STAR SECURITY AND PRIVACY CONSULTANT Unavailable Unavailable BUMBANAC, A STAR SECURITY AND PRIVACY CONSULTANT Unavailable Unavailable BUMBANAC, A STAR SECURITY AND PRIVACY CONSULTANT Unavailable Unavailable BUMBANAC, A STAR SECURITY AND PRIVACY CONSULTANT Unavailable Unavailable BUMBANAC, A STAR SECURITY AND PRIVACY CONSULTANT Unavailable Unavailable BUMBANAC, A STAR SECURITY AND PRIVACY CONSULTANT Unavailable Unavailable BUMBANAC, A STAR SECURITY AND PRIVACY CONSULTANT Unavailable Unavailable BUMBANAC, A STAR SECURITY AND PRIVACY CONSULTANT Unavailable Unavailable BUMBANAC, A STAR SECURITY AND PRIVACY CONSULTANT Unavailable Unavailable BUMBANAC, A STAR SECURITY AND PRIVACY CONSULTANT Unavailable Unavailable BUMBANAC, A STAR SECURITY AND PRIVACY CONSULTANT Unavailable Unavailable BUMBANAC, A STAR SECURITY AND PRIVACY CONSULTANT Unavailable Unavailable BUMBANAC, A STAR SECURITY AND PRIVACY CONSULTANT Unavailable Unavailable Hernandez, Pablo Unavailable Hernandez, Pablo Unavailable Hernandez, Pablo Unavailable Hernandez, Pablo Unavailable Hernandez, Pablo Unavailable Hernandez, Pablo Unavailable Hernandez, Pablo Unavailable Hernandez, Pablo Unavailable Hernandez, Pablo Unavailable Hernandez, Pablo Unavailable Hernandez, Pablo Unavailable Hernandez, Pablo Unavailable Hernandez, Pablo Unavailable Hernandez, Pablo Unavailable Hernandez, Pablo Unavailable Hernandez, Pablo Unavailable Hernandez, Pablo Unavailable Hernandez, Pabol Unavailable Hernandez, Pablo Unavailable Pablo Hernandez Unavailable [...] Unavailable Unavailable MtanosBlaine MD Unavailable Unavailable MtanoBlaine kmuar MD Unavailable Unavailable MtanoBlaine kumar MD Unavailable [...] DAVID PA Unavailable Unavailable Hernandez, M Maik SECURITY AND PRIVACY CONSULTANT Unavailable Unavailable Hernandez, M Maik SECURITY AND PRIVACY CONSULTANT Unavailable Unavailable Hernandez, M Maik SECURITY AND PRIVACY CONSULTANT Unavailable Unavailable Hernandez, M Maik SECURITY AND PRIVACY CONSULTANT Unavailable Unavailable Hernandez, M Maik SECURITY AND PRIVACY CONSULTANT Unavailable Unavailable Hernandez, M Maik SECURITY AND PRIVACY CONSULTANT Unavailable Unavailable HERNANDEZ, W PABLO Unavailable Unavailable [...] is protected by Article 27-F of the [facility] Public Health law. If you continue you may have access to information: Regarding HIV / AIDS; Provided by facilities licensed or operated by the [facility] Office of Mental Health; or Provided by the [facility] Office for People With Developmental Disabilities. If such information is present, then the following [facility] mandated warning applies: This information has been [...] 10 MG COMPAZINE PO TAB 10 MG [facility] Propensity to adverse reactions DEMEROL DEMEROL [facility] Propensity to adverse reactions PCN (penicillin) PCN (penicillin) [facility] Family History Family Member Name Family Member Gender Family Member Status Date o f Status Description Data Source(s) Unknown Male Problem (finding) 10/17/2014 12:00:00 AM EST NextGen ([facility]) Unknown Male Problem (finding) 10/17/2014 12:00:00 AM EST NextGen ([facility]) Unknown Male Problem MEDENT ([facility] () Unknown Unknown Problem MED[facility] ([facility]) Unknown Female Problem MEDENT ([facility]) Unknown Female Problem MEDENT ([facility]) Unknown Female Problem MEDENT ([facility]) Unknown Female Problem MEDENT ([facility]) Unknown Female Problem MEDENT ([facility]) Encounters Encounter Providers Location Date Indications Data Source(s ) [place] [address] [facility] [address] 08/11/2021 12:00:00 AM EDT eCW1 ([facility]) Outpatient Attender: LUZ ELENA EDDYReferrer: Pablo Hernandez EMERGENCY ROOM-LAB REFOTH 08/02/2021 11:33:00 AM EDT - 08/02/2021 11:33:00 AM EDT [facility] [place] [address] [facility] [address] 06/15/2021 12:00:00 AM EDT eCW1 ([facility]) Outpatient Attender: LUDIN MIGUEL NPConsultant: SHASHANK COUCH 05/31/2021 03:28:00 PM EDT - 05/31/2021 03:28:00 PM EDT [facility] [place] [address] [facility] [address] 05/31/2021 12:00:00 AM EDT eCW1 ([facility]) Outpatient Attender: Maik Hernandez NPConsultant: SHASHANK NGO ER PA 05/16/2021 10:55:00 AM EDT - 05/16/2021 11:05:00 AM EDT [facility] [place] [address] [facility] [address] 05/11/2021 12:00:00 AM EDT eCW1 ([facility]) Outpatient Attender: Maik Hernandez NPConsultant: SHASHANK NGO ER PA 05/04/2021 01:00:00 PM EDT - 05/04/2021 01:10:00 PM EDT [facility] [place] [address] [facility] [address] 05/04/2021 12:00:00 AM EDT eCW1 ([facility]) [place] [address] [facility] [address] 05/04/2021 12:00:00 AM EDT eCW1 ([facility]) [place] [address] [facility] [address] 05/04/2021 12:00:00 AM EDT eCW1 ([facility]) [place] [address] [address] 04/21/2021 12:00:00 AM EDT eCW1 ([facility]) [place] [address] [address] 04/13/2021 12:00:00 AM EDT eCW1 ([facility]) [place] [address] [facility] [address] 04/09/2021 12:00:00 AM EDT eCW1 ([facility]) [place] [address] [facility] [address] 04/06/2021 12:00:00 AM EDT eCW1 ([facility]) Outpatient Attender: PABLO Mendoza: PABLO HERNANDEZ 04/05/2021 12:00:00 AM EDT - 04/06/2021 12:00:00 AM EDT Bone marrow transplant status [facility] Bone marrow transplant status [place] [address] [facility] [address] 04/01/2021 12:00:00 AM EDT eCW1 ([facility]) Unknown [address] [facility] [address] 03/29/2021 12:00:00 AM EDT eCW1 ([facility]) TeleMedicine New Pt. Level 3 [address] [place] [address] 03/25/2021 12:00:00 AM EDT eCW1 ([facility]) Unknown [address] [facility] [place] [address] 2021 12:00:00 AM EDT eCW1 ([facility]) Unknown [address] [facility] [place] [address] 03/08/2021 12:00:00 AM EDT eCW1 ([facility]) (TV_Virtual) Virtual Enc [facility] Visit [address] [place] [address] 03/04/2021 12:00:00 AM EDT eCW1 ([facility]) Unknown [address] [facility] [place] [address] 03/02/2021 12:00:00 AM EDT eCW1 ([facility]) Unknown [address] [facility] Y [address] 02/22/2021 12:00:00 AM EDT eCW1 ([facility]) Unknown [address] [facility] Y [address] 02/21/2021 12:00:00 AM EDT eCW1 ([facility]) Unknown [address] [facility] [address] 02/18/2021 12:00:00 AM EDT eCW1 ([facility]) [place] [address] [facility] [address] 02/18/2021 12:00:00 AM EDT eCW1 ([facility]) [place] [address] [facility] [address] 02/18/2021 12:00:00 AM EDT eCW1 ([facility]) [place] [address] [facility] [address] 02/15/2021 12:00:00 AM EDT eCW1 ([facility]) Outpatient Attender: DAVID COUCH Main Office 02/10/2021 1 0:15:00 AM EDT MEDENT ([facility]) [place] [address] [facility] [address] 02/04/2021 12:00:00 AM EDT eCW1 ([facility]) [place] [address] [facility] [address] 01/27/2021 12:00:00 AM EDT eCW1 ([facility]) Unknown [address] [facility] [address] 01/27/2021 12:00:00 AM EDT eCW1 ([facility]) [place] [address] [facility] [address] 01/19/2021 12:00:00 AM EDT eCW1 ([facility]) [place] [address] [facility] [address] 01/10/2021 12:00:00 AM EST eCW1 ([facility]) Unknown [address] [facility] [place] [address] 01/10/2021 12:00:00 AM EST eCW1 ([facility]) [place] [address] [facility] [address] 12/23/2020 12:00:00 AM EST eCW1 ([facility]) [facility] Pt. Level 4 [address] [place] [address] 12/15/2020 12:00:00 AM EST eCW1 ([facility]) Unknown [address] [facility] [address] 12/07/2020 12:00:00 AM EST eCW1 ([facility]) TeleMedicine Est. Pt. Level 4 [address] [place] [address] 11/17/2020 12:00:00 AM EST eCW1 ([facility]) Unknown [address] [facility] [address] 11/10/2020 12:00:00 AM EST eCW1 ([facility]) Unknown [address] [facility] [address] 10/26/2020 12:00:00 AM EST [facility]1 [facility]) TeleMedicine Est. Pt. Level 3 [address] [place] [address] 10/22/2020 12:00:00 AM EST eCW1 ([facility]) Attender: Blaine Damon MD [facility] 10/13/2020 12:58:00 PM EST - 10/13/2020 12:58:00 PM EST NextGen ( [facility]) Outpatient Attender: AILEEN KOCHReferrer: AILEEN KOCH Dairy Quality Assurance Officer: SHASHANK COUCH 10/05/2020 12:00:00 PM EST - 10/05/2020 12:10:00 PM EST [facility] Outpatient Attender: PABLO Lightultant: SHASHANK COUCH 10/05/2020 11:59:00 AM EST - 10/05/2020 12:09:00 PM EST [facility] Unknown [address] [facility] [address] 10/05/2020 12:00:00 AM EST [facility]CW1 [facility]) Outpatient [address] [facility] [address] 09/22/2020 12:00:00 AM EST eCW1 ([facility]) Unknown [address] [facility] [address] 09/21/2020 12:00:00 AM EST eCW1 ([facility]) [place] [address] [facility] [address] 09/16/2020 12:00:00 AM EST eCW1 ([facility]) Outpatient Attender: VAUGHN Panerrer: Norberto sutton MD 09/05/2020 12:00:00 AM EDT - 09/06/2020 12:00:[address] [facility] [place] [address] [facility] [address] 09/04/2020 12:00:00 AM EDT eCW1 ([facility]) Outpatient Attender: AILEEN KOCHConsultant: SHASHANK COUCH 08/31/2020 12:30:00 PM EDT - 08/31/2020 12:40:00 PM EDT [facility] Outpatient Attender: PABLO Guerraant: SHASHANK COUCH 08/31/2020 12:28:00 PM EDT - 08/31/2020 12:38:00 PM EDT [facility] Unknown [address] [facility] [address] 08/31/2020 12:00:00 AM EDT eCW1 ([facility]) [place] [address] [facility] [address] 08/25/2020 12:00:00 AM EDT eCW1 ([facility]) [place] [address] [facility] [address] 08/24/2020 12:00:00 AM EDT eCW1 ([facility]) [place] [address] [facility] [address] 08/24/2020 12:00:00 AM EDT eCW1 ([facility]) [place] [address] [facility] [address] 08/24/2020 12:00:00 AM EDT eCW1 ([facility]) Outpatient Attender: JORGE OROSCOReferrer: Norberto elizondo MD [id number] 08/18/2020 12:00:00 AM EDT - 08/19/2020 12:00:00 AM [facility] Outpatient 08/15/2020 12:00:00 AM [facility] [place] [address] [facility] [address] 08/12/2020 12:00:00 AM EDT eCW1 ([facility]) [place]patient [address] [facility] [address] 08/11/2020 12:00:00 AM EDT eCW1 ([facility]) [place] [address] [facility] [place] [address] 08/06/2020 12:00:00 AM EDT eCW1 ([facility]) [place] [address] [facility] [address] 08/04/2020 12:00:00 AM EDT eCW1 ([facility]) [place] [address] [facility] [address] 07/28/2020 12:00:00 AM EDT eCW1 ([facility]) Outpatient Attender: AILEEN KOCHConsultant: SHASHANK COUCH 07/07/2020 10:49:00 AM EDT - 07/07/2020 10:59:00 AM EDT [facility] Outpatient Attender: PABLO Lightultant: SHASHANK COUCH 07/07/2020 10:46:00 AM EDT - 07/07/2020 10:56:00 AM EDT [facility] Immunizations Vaccine Date Status Description Data Source(s) COVID-19 VACC,MRNA(MODERNA)/PF 07/23/2021 12:00:00 AM EDT completed [facility] COVID-19 VACCINE Moderna 07/23/2021 12:00:00 AM EDT completed [facility] Vaccine Series Complete: YESThis Data wa s Submitted to [facility] [employer]. COVID-19 VACCINE Moderna 02/01/2021 12:00:00 AM EDT completed [facility] Vaccine Series Complete: YESThis Data wa s Submitted to [facility] [employer]. COVID-19 VACCINE Moderna 01/04/2021 12:00:00 AM EST completed [facility] Vaccine Series Complete: NOThis Data was Submitted to [facility] [employer]. Medications Medication Brand Name Start Date Product [...] AM EDT active Lorazepam 1 MG eCW1 ([facility]) 1 mg 08/10/2021 12:00:00 AM EDT tablet 60 TAKE ONE TABLET BY MOUTH TWICE A DAY NEEDED MAXIMUM DAILY DOSE = TWO TABLETS TAKE ONE TABLET BY MOUTH TWICE A DAY NEEDED MAXIMUM DAILY DOSE = TWO TABLETS SOLD: 08/10/2021 [facility] montelukast 10 MG Oral Tablet MONTELUKAST [...] AM EDT active Lorazepam 1 MG eCW1 ([facility]) Acetaminophen 325 MG / Hydrocodone [...] 5.0 {drops_into_affected_ear} active Debrox 6.5 % eCW1 ([facility]) Mupirocin 20 MG/ML Topical Cream Mupirocin Calcium 2 % Mupir ocin Calcium 2 % 05/04/2021 12:00:00 AM EDT 1.0 {application} act fany Mupirocin Calcium 2 % eCW1 ([facility]) Mupirocin 20 MG/ML Topical Cream Mupirocin Calcium 2 % Mupir ocin Calcium 2 % 05/04/2021 12:00:00 AM EDT 1.0 {application} act fany Mupirocin Calcium 2 % eCW1 ([facility]) Mupirocin 20 MG/ML Topical Cream Mupirocin Calcium 2 % Mupir ocin Calcium 2 % 05/04/2021 12:00:00 AM EDT 1.0 {application} act fany Mupirocin Calcium 2 % eCW1 ([facility]) Mupirocin 20 MG/ML Topical Cream Mupirocin Calcium 2 % Mupir ocin Calcium 2 % 05/04/2021 12:00:00 AM EDT 1.0 {application} act fany Mupirocin Calcium 2 % eCW1 ([facility]) carbamide peroxide 65 MG/ML Otic Solution [Debrox] Debrox 6. 5 % Debrox 6.5 % 05/04/2021 12:00:00 AM EDT 5.0 {drops_into_affected_ear} active Debrox 6.5 % eCW1 ([facility]) Mupirocin 20 MG/ML Topical Cream Mupirocin Calcium 2 % Mupir ocin Calcium 2 % 05/04/2021 12:00:00 AM EDT 1.0 {application} active eCW1 ([facility]) carbamide peroxide 65 MG/ML Otic Solution [Debrox] Debrox 6. 5 % Debrox 6.5 % 05/04/2021 12:00:00 AM EDT 5.0 {drops_into_affected_ear} active Debrox 6.5 % eCW1 ([facility]) carbamide peroxide 65 MG/ML Otic Solution [Debrox] Debrox 6. 5 % Debrox 6.5 % 05/04/2021 12:00:00 AM EDT 5.0 {drops_into_affected_ear} active Debrox 6.5 % eCW1 ([facility]) Mupirocin 20 MG/ML Topical Cream Mupirocin Calcium 2 % Mupir ocin Calcium 2 % 05/04/2021 12:00:00 AM EDT 1.0 {application} act fany Mupirocin Calcium 2 % eCW1 ([facility]) carbamide peroxide 65 MG/ML Otic Solution [Debrox] Debrox 6. 5 % Debrox 6.5 % 05/04/2021 12:00:00 AM EDT 5.0 {drops_into_affected_ear} active Debrox 6.5 % eCW1 ([facility]) carbamide peroxide 65 MG/ML Otic Solution [Debrox] Debrox 6. 5 % Debrox 6.5 % 05/04/2021 12:00:00 AM EDT 5.0 {drops_into_affected_ear} active Debrox 6.5 % eCW1 ([facility]) carbamide peroxide 65 MG/ML Otic Solution [Debrox] Debrox 6. 5 % Debrox 6.5 % 05/04/2021 12:00:00 AM EDT 5.0 {drops_into_affected_ear} active eCW1 ([facility]) Mupirocin 20 MG/ML Topical Cream Mupirocin Calcium 2 % Mupir ocin Calcium 2 % 05/04/2021 12:00:00 AM EDT 1.0 {application} act fany Mupirocin Calcium 2 % eCW1 ([facility]) 10 mg 04/28/2021 12:00:00 AM [...] {tablet} active Le xapro 5 MG eCW1 ([facility]) Escitalopram 5 MG Oral Tablet [Lexapro] Lexapro 5 MG Lexapro 5 MG 03/26/2021 12:00:00 AM EDT 1.0 {tablet} active eCW1 ([facility]) 0.125 mg 03/26/2021 12:00:00 AM EDT tablet 90 TAKE THREE TABLETS BY MOUTH EVERY NIGHT TAKE THREE TABLETS BY MOUTH EVERY NIGHT SOLD: 07/20/2021 [facility] Escitalopram 5 MG Oral Tablet [Lexapro] Lexapro 5 MG Lexapro 5 MG 03/26/2021 12:00:00 AM EDT 1.0 {tablet} active Le xapro 5 MG eCW1 ([facility]) 0.125 mg 03/26/2021 12:00:00 AM [...] :00 AM EDT ORAL active MEDENT ([facility]) Cholecalciferol 2000 UNT Oral Tablet Vitamin D3 02/09/2021 12:00:00 A M EDT ORAL active [facility] ([facility] ferrous gluconate 256 MG Oral Tablet Iron (Ferrous Gluconate ) 02/09/2021 12:00:00 AM EDT ORAL active M EDENT ([facility]) Acyclovir 400 MG Oral Tablet Acyclovir 02/09/2021 12:00:00 AM EDT ORAL active [facility]ENT ([facility]) Labetalol hydrochloride 100 MG Oral Tablet Labetalol HCL 02/09/2021 12:00:00 AM EDT ORAL active [facility] ([facility]) Amlodipine 5 MG Oral Tablet Amlodipine Besylate 02/09/2021 12:00:00 A M EDT ORAL [facility] Prednisone 5 MG Oral Tablet Prednisone 02/09/2021 12:00:00 AM EDT ORAL active [facility]) 24 HR Oxybutynin chloride 15 MG Extended Release Oral Tablet Oxybutynin Chloride ER 02/09/2021 12:00:00 AM EDT ORAL active MEDENT ([facility]) 24 HR Diltiazem Hydrochloride 120 MG Extended Release Oral C apsule Diltiazem CD 02/09/2021 12:00:00 AM EDT ORAL active MEDENT ([facility]) Aspirin 81 MG Delayed Release Oral Tablet Aspirin 81 2020 12:00:00 AM EDT ORAL active MEDENT ( [facility]) Admelog Solostar Admelog Solostar 02/09/2021 12:00:00 AM EDT active MEDENT ([facility]) repaglinide 2 MG Oral Tablet Repaglinide 02/09/2021 12:00:00 AM EDT ORAL active [facility] ([facility]) Clotrimazole 10 MG/ML Topical Cream Clotrimazole 02/09/2021 12:00:00 AM EDT active [facility] ([facility]) 60 ACTUAT Budesonide 0.16 MG/ACTUAT / fo rmoterol fumarate 0.0045 MG/ACTUAT Metered Dose Inhaler Budesonide/Formoterol Fumarate Dihydrate 02/09/2021 12:00:00 AM EDT RESPIRATORY active MEDENT ([facility]) Dexamethasone 0.1 MG/ML Oral Solution Dexamethasone 02/09/2021 12:00:00 AM EDT ORAL active MEDENT ( [facility]) Hydroxychloroquine Sulfate 200 MG Oral Tablet Hydroxychloroq uine Sulfate 02/09/2021 12:00:00 AM EDT ORAL active [facility] ([facility]) Hydrocortisone 10 MG/ML Topical Cream Hydrocortisone 02/09/2021 12:00:00 AM EDT active [facility] ( [facility]) Folic Acid 1 MG Oral Tablet Folic Acid 02/09/2021 12:00:00 AM EDT ORAL active [facility] ([facility]) difluprednate 0.5 MG/ML Ophthalmic Suspension [Durezol] Dure zol 02/09/2021 12:00:00 AM EDT completed [facility] ([facility]) Pramipexole dihydrochloride 0.125 MG Oral Tablet Pramipexole Dihydrochloride 02/09/2021 12:00:00 AM EDT ORAL active [facility] ([facility]) montelukast 10 MG Oral Tablet Montelukast Sodium 02/09/2021 12:00:00 AM EDT ORAL active [facility] ([facility] Lidocaine Hydrochloride 20 MG/ML Injectable Solution [Xyloca ine] Xylocaine 02/09/2021 12:00:00 AM EDT active MED[facility] ([facility]) Ketorolac Tromethamine 5 MG/ML Ophthalmic Solution Ketorolac Tromethamine 02/09/2021 12:00:00 AM EDT OPHTHALMIC completed [facility] ([facility]) Acetaminophen 325 MG / tramadol hydrochloride 37.5 MG Oral Tablet Tramadol Hydrochloride/Acetaminophen 02/09/2021 12:00:00 AM EDT ORAL active [facility] ([facility]) Chlorthalidone 25 MG Oral Tablet Chlorthalidone 02/09/2021 12:00:00 A M EDT ORAL active [facility] ([facility] 2.5 mg 02/08/2021 12:00:00 AM EDT tablet [...] TABLET BY MOUTH EVERY DAY SOLD: 04/07/2021 [facility] Cyclobenzaprine hydrochloride 10 MG Oral Tablet CYCLOBENZAPR INE HCL 12/17/2020 12:00:00 AM EST tablet 60 TAKE ONE TABLET BY MOUTH THREE TIMES A DAY NEEDED TAKE ONE TABLET BY MOUTH THREE TIMES A DAY NEEDED SOLD: 12/17/2020 [facility] Escitalopram 5 MG Oral Tablet [Lexapro] Lexapro 5 MG Lexapro 5 MG 12/15/2020 12:00:00 AM EST 1.0 {tablet} active Le xapro 5 MG eCW1 ([facility]) Escitalopram 5 MG Oral Tablet [Lexapro] Lexapro 5 MG Lexapro 5 MG 12/15/2020 12:00:00 AM EST 1.0 {tablet} active Le xapro 5 MG eCW1 ([facility]) Escitalopram 5 MG Oral Tablet [Lexapro] Lexapro 5 MG Lexapro 5 MG 12/15/2020 12:00:00 AM EST 1.0 {tablet} active Le xapro 5 MG eCW1 ([facility]) 2 mg 12/15/2020 12:00:00 AM [...] {tablet} active Le xapro 5 MG eCW1 ([facility]) 2 mg 12/15/2020 12:00:00 AM [...] {tablet} active Le xapro 5 MG eCW1 ([facility]) Escitalopram 5 MG Oral Tablet ESCITALOPRAM OXALATE 12/15/2020 12 :00:00 AM EST tablet 30 TAKE ONE TABLET BY MOUTH EVERY D AY TAKE ONE TABLET BY MOUTH EVERY DAY SOLD: 12/15/2020 [facility] Escitalopram 5 MG Oral Tablet [Lexapro] Lexapro 5 MG Lexapro 5 MG 12/15/2020 12:00:00 AM EST 1.0 {tablet} active Le xapro 5 MG eCW1 ([facility]) 2 mg 12/15/2020 12:00:00 AM [...] {tablet} active Le xapro 5 MG eCW1 ([facility]) Escitalopram 5 MG Oral Tablet [...] {tablet} active Le xapro 5 MG eCW1 ([facility]) Escitalopram 5 MG Oral Tablet [Lexapro] Lexapro 5 MG Lexapro 5 MG 12/15/2020 12:00:00 AM EST 1.0 {tablet} active Le xapro 5 MG eCW1 ([facility]) Escitalopram 5 MG Oral Tablet [Lexapro] Lexapro 5 MG Lexapro 5 MG 12/15/2020 12:00:00 AM EST 1.0 {tablet} active Le xapro 5 MG eCW1 ([facility]) 2 mg 12/15/2020 12:00:00 AM [...] {tablet} active Le xapro 5 MG eCW1 ([facility]) Escitalopram 5 MG Oral Tablet [Lexapro] Lexapro 5 MG Lexapro 5 MG 12/15/2020 12:00:00 AM EST 1.0 {tablet} active Le xapro 5 MG eCW1 ([facility]) Escitalopram 5 MG Oral Tablet ESCITALOPRAM OXALATE 12/15/2020 12 :00:00 AM EST tablet 30 TAKE ONE TABLET BY MOUTH EVERY D AY TAKE ONE TABLET BY MOUTH EVERY DAY SOLD: 03/09/2021 [facility] Escitalopram 5 MG Oral Tablet [Lexapro] Lexapro 5 MG Lexapro 5 MG 12/15/2020 12:00:00 AM EST 1.0 {tablet} active Le xapro 5 MG eCW1 ([facility]) Escitalopram 5 MG Oral Tablet [Lexapro] Lexapro 5 MG Lexapro 5 MG 12/15/2020 12:00:00 AM EST 1.0 {tablet} active Le xapro 5 MG eCW1 ([facility]) Escitalopram 5 MG Oral Tablet [Lexapro] Lexapro 5 MG Lexapro 5 MG 12/15/2020 12:00:00 AM EST 1.0 {tablet} active Le xapro 5 MG eCW1 ([facility]) Escitalopram 5 MG Oral Tablet [Lexapro] Lexapro 5 MG Lexapro 5 MG 12/15/2020 12:00:00 AM EST 1.0 {tablet} active Le xapro 5 MG eCW1 ([facility]) Escitalopram 5 MG Oral Tablet [Lexapro] Lexapro 5 MG Lexapro 5 MG 12/15/2020 12:00:00 AM EST 1.0 {tablet} active Le xapro 5 MG eCW1 ([facility]) montelukast 10 MG Oral Tablet [...] {capsule} active K eflex 500 MG eCW1 ([facility]) 15 mg 09/22/2020 12:00:00 AM EST tablet extended release 24hr 30 TAKE ONE TABLET BY MOUTH EVERY DAY AT BEDTIME TAKE ONE TABLET BY MOUTH EVERY DAY AT BEDTIME SOLD: 04/07/2021 [facility] Cephalexin 500 MG Oral Capsule [Keflex] Keflex 500 MG Keflex 500 MG 09/22/2020 12:00:00 AM EST 1.0 {capsule} active K eflex 500 MG eCW1 ([facility]) 15 mg 09/22/2020 12:00:00 AM [...] {capsule} active K eflex 500 MG eCW1 ([facility]) 15 mg 09/22/2020 12:00:00 AM [...] {capsule} active K eflex 500 MG eCW1 ([facility]) 15 mg 09/22/2020 12:00:00 AM EST tablet extended release 24hr 30 TAKE ONE TABLET BY MOUTH EVERY DAY AT BEDTIME TAKE ONE TABLET BY MOUTH EVERY DAY AT BEDTIME SOLD: 12/07/2020 [facility] Cephalexin 500 MG Oral Capsule [Keflex] Keflex 500 MG Keflex 500 MG 09/22/2020 12:00:00 AM EST 1.0 {capsule} active K eflex 500 MG eCW1 ([facility]) Cephalexin 500 MG Oral Capsule [Keflex] Keflex 500 MG Keflex 500 MG 09/22/2020 12:00:00 AM EST 1.0 {capsule} active K eflex 500 MG eCW1 ([facility]) 15 mg 09/22/2020 12:00:00 AM [...] {capsule} active K eflex 500 MG eCW1 ([facility]) 15 mg 09/22/2020 12:00:00 AM EST tablet extended release 24hr 30 TAKE ONE TABLET BY MOUTH EVERY DAY AT BEDTIME TAKE ONE TABLET BY MOUTH EVERY DAY AT BEDTIME SOLD: 05/11/2021 [facility] Cephalexin 500 MG Oral Capsule [Keflex] Keflex 500 MG Keflex 500 MG 09/22/2020 12:00:00 AM EST 1.0 {capsule} active K eflex 500 MG eCW1 ([facility]) 15 mg 09/22/2020 12:00:00 AM [...] 1.0 {tablet_on_the_tongue_and_allow_to_dissolve} active Ondansetron 4 MG W ([facility]) Ondansetron 4 MG Disintegrating Oral Tablet Ondansetron 4 MG 08/18/2020 12:00:00 AM EDT 1.0 {tablet_on_the_tongue_and_allow_to_dissolve} active Ondansetron 4 MG [facility] ([facility]) Ondansetron 4 MG Disintegrating Oral Tablet Ondansetron 4 MG 08/18/2020 12:00:00 AM EDT 1.0 {tablet_on_the_tongue_and_allow_to_dissolve} active Ondansetron 4 MG eCW1 ([facility]) Ondansetron 4 MG Disintegrating Oral Tablet Ondansetron 4 MG 08/18/2020 12:00:00 AM EDT 1.0 {tablet_on_the_tongue_and_allow_to_dissolve} active Ondansetron 4 MG eCW1 ([facility]) Ondansetron 4 MG Disintegrating Oral Tablet Ondansetron 4 MG 08/18/2020 12:00:00 AM EDT 1.0 {tablet_on_the_tongue_and_allow_to_dissolve} active Ondansetron 4 MG eCW1 ([facility]) Ondansetron 4 MG Disintegrating Oral Tablet Ondansetron 4 MG 08/18/2020 12:00:00 AM EDT 1.0 {tablet_on_the_tongue_and_allow_to_dissolve} active Ondansetron 4 MG eCW1 ([facility]) Ondansetron 4 MG Disintegrating Oral Tablet Ondansetron 4 MG 08/18/2020 12:00:00 AM EDT 1.0 {tablet_on_the_tongue_and_allow_to_dissolve} active Ondansetron 4 MG eCW1 ([facility]) Ondansetron 4 MG Disintegrating Oral Tablet Ondansetron 4 MG 08/18/2020 12:00:00 AM EDT 1.0 {tablet_on_the_tongue_and_allow_to_dissolve} active Ondansetron 4 MG eCW1 ([facility]) Ondansetron 4 MG Disintegrating Oral Tablet Ondansetron 4 MG 08/18/2020 12:00:00 AM EDT 1.0 {tablet_on_the_tongue_and_allow_to_dissolve} active Ondansetron 4 MG eCW1 ([facility]) Ondansetron 4 MG Disintegrating Oral Tablet Ondansetron 4 MG 08/18/2020 12:00:00 AM EDT 1.0 {tablet_on_the_tongue_and_allow_to_dissolve} active Ondansetron 4 MG eCW1 ([facility]) Ondansetron 4 MG Disintegrating Oral Tablet Ondansetron 4 MG 08/18/2020 12:00:00 AM EDT 1.0 {tablet_on_the_tongue_and_allow_to_dissolve} active Ondansetron 4 MG eCW1 ([facility]) Ondansetron 4 MG Disintegrating Oral Tablet Ondansetron 4 MG 08/18/2020 12:00:00 AM EDT 1.0 {tablet_on_the_tongue_and_allow_to_dissolve} active Ondansetron 4 MG eCW1 ([facility]) Ondansetron 4 MG Disintegrating Oral Tablet Ondansetron 4 MG 08/18/2020 12:00:00 AM EDT 1.0 {tablet_on_the_tongue_and_allow_to_dissolve} active Ondansetron 4 MG eCW1 ([facility]) Ondansetron 4 MG Disintegrating Oral Tablet Ondansetron 4 MG 08/18/2020 12:00:00 AM EDT 1.0 {tablet_on_the_tongue_and_allow_to_dissolve} active Ondansetron 4 MG eCW1 ([facility]) Ondansetron 4 MG Disintegrating Oral Tablet Ondansetron 4 MG 08/18/2020 12:00:00 AM EDT 1.0 {tablet_on_the_tongue_and_allow_to_dissolve} active Ondansetron 4 MG eCW1 ([facility]) Ondansetron 4 MG Disintegrating Oral Tablet Ondansetron 4 MG 08/18/2020 12:00:00 AM EDT 1.0 {tablet_on_the_tongue_and_allow_to_dissolve} active Ondansetron 4 MG eCW1 ([facility]) Ondansetron 4 MG Disintegrating Oral Tablet Ondansetron 4 MG 08/18/2020 12:00:00 AM EDT 1.0 {tablet_on_the_tongue_and_allow_to_dissolve} active Ondansetron 4 MG eCW1 ([facility]) 4 mg 08/18/2020 12:00:00 AM [...] MOUTH EVERY DAY AT BEDTIME SOLD: 11/22/2020 [facility] 100 mg 04/06/2020 12:00:00 AM EDT [...] Policy Sharma Plan Information [employer] [id number] SP [id number] [facility] Federal Service Medigap Part B [id number] Family De pendent Ghi/Emblem HLTH (pr) Medigap Part B [id number] Self [facility] 10/21/15 [facility] 10/21/15 MEDICARE [id number] SP [id number] A POMCO [id number] Liv [id number] POMCO [id number] Liv [id number] POMCO U [id number] Self [id number] POMCO [id number] SP [id number] [place] (pr) Medigap Part B [id number] Self [facility]MR [facility] [id number] SP [id number] [place] [id number] S [id number] [place] [id number] S [id number] [place] [id number] S [id number] MEDICARE A [id number] Self [id number] MEDICARE [id number] Liv [id number] [id number] MEDICARE [id number] SP [id number] A [facility] MEDICARE DIVISION [id number] S [id number] MEDICARE [id number] Liv [id number] A MEDICARE A [id number] Self [id number] MEDICARE [id number] Liv [id number] A [facility] MEDICARE DIVISION [id number] S [id number] [facility] MEDICARE DIVISION [id number] S [id number] U [id number] Spouse [id number] [id number] Liv [id number] Liv [id number] [place] [facility]) Medigap Part B [id number] Family Dep endent Medicare Dme Supplies Medigap Part B [id number] Self Medicare [place] Primary [id number] Self [place] For Life Medigap Part B [id number] Family Dependent 1 [id number] [place] For Life Medigap Part B [id number] Family Dependent 1 [id number] FOR LIFE [id number] HU2 114 [id number] UMR U [id number] Self [id number] POMCO [id number] SP [id number] POMCO [id number] SP [id number] UMR [id number] S [id number] UMR [id number] S [id number] FOR LIFE U [id number] Spouse 0 [id number] FOR LIFE [id number] SP [id number] FOR LIFE [id number] HU2 114 [id number] UMR [facility] [id number] [facility] Commercial [id number] Self [id number] ANSI-Commercial [id number]-0yph-[id number]-1nvh-[id number] ANSI-Commercial 72f536eq-gosv-7cuj-x5we-335c745x6839 16k815af-nueu-8uqb-l2ms-424w363d8650 ANSI-Commercial 14fi34v6-5042-862b-66gw-3l5lq228hpl0 84ae42l0-9185-364g-83ag-4w4be866djs5 ANSI-Medicare Part B [id number]-[id number]-6j48-651e-i62p-oa2yyl319801 ANSI-Commercial 1fb195x6-00pv-6l4d-30w3-x1810445l834 4lr704k9-17bq-3z5s-39p0-z7117437i689 ANSI-Commercial n0u74237-8765-066o-2136-55015wohfj0d d7p51396-8811-363k-6801-14289qljyc2f ANSI-Commercial 8z8hzy19-79s5-7e71-48le-l3033tc716i9 7j7mae53-51l1-5b58-07gk-p4866eb507z2 ANSI-Medicare Part B [id number]-[id number] b5830634-t2v3-4w52-94t6-a48kvq380i25 [facility] [id number] [facility] [id number] ANSI-Medicare Part B [id number]-682p-a48a-1ms1l37046w4 ANSI-Commercial 8v57yd31-k84e-10n9-9z7w-kul0t03x5p66 1l21fg66-s34m-17l0-7n6x-xib3h88p1f57 ANSI-Commercial 4m6b6312-5h1k-13c5-wc27-84fjd20c2a64 6z6y1883-6k3m-42l5-kw29-81jqa23i3z44 ANSI-Commercial x15k9y29-091b-2o79-b069-4r363o3740ig n48i5k16-712g-3c77-q654-5e160o9533lt ANSI-Commercial 224b4293-52d1-5a2w-7j77-2m92i4r7g734 190w8619-27u5-2s2d-0n75-1o97w1f0l821 [facility] [id number] 9t697s71-86b8-9470-03j9-3jks7p7nn441 ANSI-Commercial 06tpt861-67d0-8835-c1py-26720e41h41g 93ndg940-61m1-0049-g8mo-93617l56f36h ANSI-Commercial w9qp0d26-389q-0578-p569-0n05y6j6k5c6 y7ie4g15-539a-9873-g481-4r76n1e7u0o0 [facility] [id number]-78s5-cdpm-9u00mb920979 902da159-7f4d-51i4-wjeu-4k02ne492059 ANSI-Commercial 4xb9g2o1-6g6q-3689-6343-do90g4w187r0 1he6o3r2-5c5c-7349-1304-jm07w9u847t3 ANSI-Commercial 2lqh0897-s334-00t2-r784-32ybg1kk3230 6mwn0611-g744-89d1-t260-32ajy6bd2025 ANSI-Commercial xoh286u0-311o-6215-r15r-p3ws0299gaa4 ikw327r3-808a-6796-j35a-k3ji7391cuc4 ANSI-Commercial c940f761-50s6-17b6-v747-36sb43xycfz7 m619z238-07z1-23o1-c776-56mb93dzoeq0 ANSI-Commercial x37c90gu-fv9c-0293-i260-4u5cn2hn8011 y25d40gx-gy3z-5596-j982-4g8nv5lg1432 ANSI-Commercial q28qj4ss-53ht-8ua1-0q5f-741s4d662c43 k99ic3lh-63ex-9kp3-0z6p-958x3z780o13 ANSI-Medicare Part B [id number]-ed1s-[id number] 5z7qf671-1e41-3328-bf1e-1qes3g550h42 For Life - [place] Medigap Part B [id number].[id number] Family Dependent [id number] r Medigap Part B [id number].[id number]- [id number] Self [id number] Medicare (Part B) Medicare Primary [id number] MRN.[id number] Self [id number] ANSI-Medicare Part B [id number]-[id number] 6730b820-l8f2-4w9v-e760-9g5j0k78f754 ANSI-Commercial 98e2e426-20p8-609b-2tr1-29933cl8y828 86v7e849-29h1-317d-3tr0-20756lt4w956 ANSI-Commercial 80l1re5y-9362-8460-l01x-4m8a54i24x7d 19e1re8y-9634-6834-a23k-7y3t28p80c7i ANSI-Commercial 4823gg36-2820-5351-n068-43c085q810s5 6322bc12-8331-1615-y559-76r502s177b6 ANSI-Commercial 9g9f6su9-7n68-0059-31qv-633d17260y40 2x3m3iz5-0q95-6579-14qh-206g35653b12 ANSI-Commercial dy21e0fl-y8ul-2z27-sf11-nhgo7b470374 ia36u0gw-o0pl-8s31-ei66-zmmv3j278684 ANSI-Commercial 802w4003-27ag-7gw6-8769-626ac9v2u0t0 094j5246-13ko-4nr2-9519-147km8l7h7j2 [facility] [id number]-gy9r-79jq-i1xu-j17n01u532k1 19552q6c-st3c-64vq-h1wc-g56a96j460b7 ANSI-Commercial 7c32h5n8-i5m9-9821-ul68-o4qs1c0741xp 4f61x6u8-h3e0-5705-bl99-s9di1i2325io ANSI-Commercial 3oc2ay7w-wa43-523a-7525-g8a1g0a8047b 7fy8ox5j-lk70-250q-2182-i4i6d2o7194t ANSI-Medicare Part B [id number]-8218-e8pe-6k1r63d0n8dm w22l7c10-7h3z-9417-t9ut-7s1v99a7p3wj ANSI-Commercial f3z06fk6-0ysa-8661-n3j6-8238964lrq0n x5c88go5-9htb-8949-y8v7-7773345wwa2b ANSI-Commercial m5u63071-z61r-261t-vs36-nmmzi6e6h2r1 q7c80301-f10b-423y-lg90-msfpx4x0b0r5 ANSI-Commercial 121g48d8-2773-80x4-pz50-549s69vagk66 680k70p9-5189-20y0-zj92-174i40cjfm98 ANSI-Commercial 3459hqgu-530s-5f441j63-8n88-5731p88001tg 3646gxfe-217y-7x522g74-6e29-0582b77466rr ANSI-Medicare Part B [id number]-x1o72fvou37x 38b80070-c975-52p4-7inn-e6p07knfm62k ANSI-Commercial gl364t26-8744-7y0u-64de-06b748kdad0q tb138a08-7642-7s2r-59ka-70a383szcs5t ANSI-Commercial 631576b6-2b78-2c64-5z08-4s5c6833276o 063398w7-9v61-2s70-8q72-3h7l0168120b ANSI-Medicare Part B 66814v50-q5rr-38k9-bx81-7q4t7e43473k 55144s11-r5ug-94e9-ui59-5z7b4x58864f ANSI-Commercial 9309c59u-17e3-07p2-m607-pl0o508r964i 8198p68f-34b5-97r6-w779-mu4w648x186h ANSI-Commercial e125z5h8-62bd-00dc-8389-ienk7v719132 p401p8f2-79gc-09wl-2031-vpdg5d649415 ANSI-Commercial vcgyx32l-6m87-34nn-b256-14pv136qy563 dboas47j-7q98-91qx-k035-06vm006vz310 ANSI-Commercial 73kb4za8-9721-510t-zlu2-718zw39x9o1k 08ri5ie6-2612-804t-rfv4-813nt96n5d7v ANSI-Medicare Part B [id number]-457g-n04e-03m3932w33q2 813l7580-w96u-372o-q54l-68f9335i55l3 ANSI-Commercial 3624245z-w6wu-8wec-gvj0-70f03ip12s7a 6296715a-l1dn-8eek-hsg6-84v86cw13y6f ANSI-Commercial 3459h844-3d05-7u70-61lo-l2ms9v6y0y53 4177k583-5x80-5g42-51si-z1zn2z2l8m69 [facility]-Medicare Part B [id number]-qz0y-6276672535zt s8432i9t-1951-35ov-wy9e-2809434818cn ANSI-Commercial 615m3ez1-302p-675n-2ma5-6q859d84394j 697j1te6-350s-566f-1ml7-2y100h27363v ANSI-Commercial i9975w61-2893-6s6b-f1tw-f1755d208n5q k0754a70-3586-6u4n-u9pi-r2071u150z8t [facility] [id number]-v73720v446n2 f15f4yd8-71j8-1e70-891i-r43117b092f7 ANSI-Commercial 40m5q139-1wn0-19z1-hw31-a5g9e4ec727l 40x7t231-3ht1-81h1-qs40-o2z0f6me666r ANSI-Commercial mnz20525-a571-549x-u348-x70554w262jo kqx41469-y968-967n-r408-l52780r305ra ANSI-Commercial 05jd6148-10f1-8302-073p-l90x9w9898d1 72hp0183-74c6-3865-703j-s83w1p1547b8 [facility] 78j431f4-0i17-95fc-1202-y0k01vsqq2f2 20c861c2-0m15-90dh-0444-h7t41bnni3k9 ANSI-Commercial t17810yw-hu6t-4e9q-638a-j19e5v28nc40 q75114se-ct6u-4d8b-062n-v83z5w19uq38 ANSI-Commercial i681zd28-8u6f-7297-o94u-b0k2519408j6 q858ci05-8b7i-6131-l82r-i2z0040505f8 ANSI-Medicare Part B e28xk4r6-211w-8082-0y4t-wop83dfv123q v10mo1o6-322d-9484-0l5v-icn41vxo119k ANSI-Commercial qtes4190-16s6-71x9-hm40-05n386n8t85h ruug2814-30d6-39u9-xs35-55g660o5g27i ANSI-Commercial ob2wdk49-q50j-67uh-0fb3-s108a80df2nf zb9zjc56-y15n-39js-9ln9-p737y55pe4fs ANSI-Commercial 40430v77-53bi-0p64-085e-98px4mi29418 44323g68-21vq-6i38-832y-72xy6mr19225 ANSI-Commercial z2a4a3td-6486-6n55-m4zq-039x2y3u343k u1l9c1ui-1032-9g31-u9kg-896z7q5k571a ANSI-Medicare Part B o4iw5tk6-u8l2-9325-44dh-f0ca36zu375j y1qn3ju7-l0s6-4396-72cj-e1sc10iq826h ANSI-Commercial r5ej653p-5198-7685-m30t-1435zn7vy535 w8dc223s-9349-4352-e39g-8634me8sh869 ANSI-Commercial 4ckd1289-s6o4-3970-44vh-8v1z0hoi5lx3 4qxx8505-h4x5-4757-54ml-3t3z6qhd5pl8 ANSI-Commercial 74v7y6w2-8t34-65r9-b711-xbxjmp1759jq 09b6d0t8-6v12-25f8-s082-nwhvsj1814wx ANSI-Commercial o58c9439-932p-8v92-0f9n-5m2492yt4403 d33c1545-844n-3k79-4w9i-6t3265ni2389 ANSI-Commercial n73pt92j-88dl-8922-8gr3-l05g0t640q4r b23to04p-38yg-0660-6rl1-q26h8w894i8r ANSI-Medicare Part B p6c5v0vo-44y0-5f75-9073-0vkk9o811444 g0r6y5ln-56d7-3m32-1751-7rki0b148184 ANSI-Commercial 4816g525-9622-69pu-q694-v059as4adsu9 9746t801-3986-62kz-n966-h260ca3vqqb5 ANSI-Commercial p94b7612-63z6-06wu-e0bj-p54o1ymh87v4 k53m7542-14d1-63km-z6rf-t98z2ioq07l2 ANSI-Commercial 75t036ki-5tji-36u4-2h9s-13u35352g72v 81f149qp-2jnm-11x8-9p1w-22u55973k83y ANSI-Medicare Part B 15o8d1d8-1q54-79o9-j638-1xd419q26rt8 37g6d4a8-3z59-55m7-d282-1yc061s24ao1 ANSI-Commercial sf64k2h4-z01t-20ij-eh1c-37dub578c2ej ds82l8g9-x10x-36io-ru3q-27bmj596x4nv ANSI-Commercial yh6vwbs2-6o8q-5g8j-11v9-1b7n0kw6358a hj6wznm9-2f7j-4u4l-84c5-9b0c3pz9159g ANSI-Medicare Part B bbe733d4-or6c-4j15-a9fl-3dk1e8584n7e zjo764s9-rt0t-9h53-k5ge-4bk3b3460z8k ANSI-Commercial zj9u508o-7082-6rn0-u597-12pk6y75ig3h mu1j189o-8706-1sh5-o854-34oc9y86sv4p ANSI-Medicare Part B [id number]-njq8-0820-54h4-5be34578i17d c7s064o6-bkw8-2576-31d1-4pd89695d64q ANSI-Commercial q39o760q-9tc0-9p1r-0441-759xu0eug511 o56i452h-8wf9-9f5g-2227-032ze2oao758 ANSI-Commercial 335a08se-s9l8-6378-y784-p7d4905r2hxw 215p68pa-h8v8-5518-n568-c7p6903o6wby ANSI-Commercial 3k7101mm-16k4-2708-585z-g9610yyb1319 6r5483js-57y4-9082-528u-q0774asp2756 ANSI-Commercial 30z1n436-vl0h-5l48-8081-56f34142xzu2 64m7z899-th6y-8w04-0816-80f21924tcv0 ANSI-Medicare Part B b689lo25-27z6-69b4-91nj-j05g30an5akb b645pn08-51m8-45r0-51qv-b95l52tv0wtz ANSI-Commercial 3ui6m67e-yw56-0a62-bx0j-80489tepq84c 5wm9s49x-ko05-3w28-xf8q-92367pggh12r ANSI-Commercial d53i20af-k56b-27r1-s376-864960255o41 z27n79vu-o26v-02m4-u451-269302464g49 ANSI-Commercial p894nyco-cw88-0azo-thu7-hgr8853126jh s889cgho-qe18-1znt-dii9-ukg7143271cq ANSI-Commercial um19282h-l0sh-2og2-w97z-4ip1wf988nrz jl54977o-f9ql-4br7-q37k-6bf7tm088rmb ANSI-Medicare Part B f52n989b-4l6c-9635-tev9-4yn8c1ab21m6 t81p282g-3g9m-5601-qms4-9un2y0xu73n4 ANSI-Commercial 6mg5k7vo-0c9o-1n57-7d94-316vv7wu9l6h 3ap2r7vk-9e0t-6z38-5x09-062ct9nh7h3t For Life - [facility] Part B [id number] 2.16.840.1.066739.3.227.99.572.05089.0 Family Dependent 1 [id number] r [facility] Part B [id number] 2.16.840.1.622555.3.227.99.572.303 39.0 Self [id number] Medicare (Part B) Medicare Primary [id number] 2.16.840.1.337882.3.227.99.572.08666.0 Self 2 [id number] ANSI-Commercial 83k19951-52dz-5yi7-0708-1607tm8550z1 17d14718-86gz-3nb3-7671-2349fu1149u4 ANSI-Medicare Part B 99522h31-t1yz-1839-y138-024sv6845y1q 72554l83-i0fp-2972-k986-492lt6490j5i ANSI-Commercial p37ms953-37ot-3v31-y1q8-267x3131s827 f41zn335-28jp-7t50-h4o4-842f2714l611 ANSI-Commercial 68y258t5-52yq-4006-28db-77ww6d369579 69w988f0-09ul-0276-71vu-79mt0v276864 ANSI-Commercial 3l2h33fe-6733-33w9-la8u-29r1i0jk862z 0s2h69gb-0103-58b9-gg7p-57a7a5sz055j ANSI-Commercial 024985x0-a7ie-355a-ylr1-5y2965028t49 702205e5-m1cj-397z-olc7-6g6250688x97 ANSI-Medicare Part B 301xyy4y-4229-5192-2w1n-0t30gp3067mv 958cqb6v-7173-3439-6v4o-4q22ek9663bv ANSI-Commercial 08htik8y-3q7t-7lq9-c5y5-41us09057gx6 87amhk6s-9z6k-7ia0-s6n4-52zl60220ek8 [facility] [id number] 2.16.840.1.111102.3.227.99.572.41035.0 Family Dependent 1 [id number] [facility] [id number] 2.16.840.1.942688.3.227.99.572.303 39.0 Self [id number] Medicare (Part B) Medicare Primary [id number] 2.16.840.1.006227.3.227.99.572.34301.0 Self 2 [id number] ANSI-Medicare Part B 3084pw3g-9121-2jj1-t05q-x5a7t057yi93 3620kw4j-5357-1zx8-t34v-c4p0w147zw94 ANSI-Commercial 0k381q91-6b31-5041-o74e-ja0d1e185b94 5x622n18-9x98-4693-e33l-wa1s0p895e47 ANSI-Commercial 9046m3g6-63mi-9z65-767m-036684628645 3399u7n2-89bs-3s07-255f-960089262240 ANSI-Commercial 40o8m385-7s00-6751-d3a2-ac6ln69ch6mb 97a3r492-3e85-5033-d2y8-an3ov79kl2af ANSI-Commercial swm99yj2-734o-636h-x199-1n7076o54641 cmz72kj7-904t-741x-o078-7f7822v69170 ANSI-Medicare Part B 696dj311-445j-618q-8vq9-47v0nxpi2554 541yd084-289n-091s-9ta9-66a0ykmz1121 ANSI-Commercial 5n6mc8d2-6715-4j26-s62s-1z827l3s7379 6o8ro8d7-9144-1c52-t64t-8i973p2k6447 ANSI-Commercial 5na814uv-l403-9646-w899-89of1d97h004 1pt982ln-p889-3115-j475-18ur0u54w511 ANSI-Commercial 9vm70f6m-ggv6-9409-a817-p160tvq06q99 4da52o8h-mwe8-0176-g629-v334llf66w62 ANSI-Medicare Part B 2m4r76j3-910a-52zq-f5t9-43c90cjae5w4 9k3j11j7-832j-75uf-j8v1-05q07vxuh3f0 ANSI-Commercial iqc5tcqh-960q-998m-g098-3682hi65aid4 meu8lmni-705x-911s-r213-8111zg19kru6 ANSI-Commercial 49ul42i9-423j-30y2-4630-7gm98dwc3w99 27sk79i4-733v-27u7-7495-1fj88flf6i32 ANSI-Medicare Part B c3566952-xwe5-4890-348u-2pgv7187q690 n0051073-uos8-0283-910u-3tox3315p359 ANSI-Commercial 510400q4-7j21-5d72-o726-6z99439l6073 456767y9-8r90-9e26-r940-7j02823o3852 ANSI-Commercial jjy139ub-7ba9-44r8-png0-anm7835d1i50 cqa549ul-1wl1-73m3-bxi5-rmk9897a0v34 ANSI-Commercial 92z126o7-pi08-5p86-033v-x7d0gg7a10q5 79z992u4-jf86-7q14-039o-i0v3eo0f48b7 ANSI-Commercial 7n948e1e-qzr3-5w06-5a47-6382h568his0 9x289i6k-dry0-9d70-1t98-2193i759tcc5 ANSI-Medicare Part B e29828w2-7660-8446-585c-e8kpt7za318c l13297c2-6276-2003-062y-q2fcu9rr604o ANSI-Commercial g4y4o4m3-839x-6062-fq18-9xuhq8h1751a z9s2r0u2-051w-9877-pd51-4nftn2q1712g ANSI-Commercial 8534918w-77p4-2k43-d3m7-n65832w8j5s7 8804941r-64p1-2y97-i6a6-b49653o7b2f3 [employer] 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 (HMO) 11 [id number] .1.220623.3.227.99.8646.8124.0 Family Dependent 1 [id number] [employer] [employer] Part B [id number] ..1.157057.3.227.99.8646.812 4.0 Self [id number] [facility] [id number] ..1.712028.3.227.99.8646.812 4.0 Self [id number] Medicare [facility] Medicare Primary [id number] 2..1.639883.3.227.99.8646.8124.0 Self 2 [id number] ANSI-Commercial sp01bmg1-60l4-2h39-xa4a-ia4k3890h99u xe86hkt7-02i5-4y39-fo7j-sg6v7451r58p ANSI-Commercial y43q7wc5-2q69-6515-721q-lw9v55g9e532 i49z9jt5-4u64-7217-820o-fz4w13k5o444 ANSI-Commercial r061f90l-n226-168y-rz5a-rf7yf73k17e9 l860v49z-r943-002z-aa0g-sj7ig40a50u9 [facility] 1y2oc8l4-16bp-6tx5-f746-981d31333727 5u8ou2v0-14hl-7xf7-y285-753o18091244 ANSI-Commercial 84u22272-2d1y-8t78-4y47-k23294038r05 63g40513-1s8m-6w42-9w37-o33820742p09 ANSI-Commercial 51thkjy2-t4tm-7156-ld22-zn9x8v3174pa 86hrrcw6-a3in-8718-iq59-ep3b2q0794bl ANSI-Commercial 111v3505-3mn3-5aq7-5518-4vr3748n0738 064k1430-6lc5-4nc8-7712-1vu7796w1526 [facility] k46lv5q4-tu51-5221-k6y6-g3yax8n9cj21 x57jv8t2-oc29-5532-j2c7-f6nwf8m7qz78 ANSI-Commercial 163otixn-3497-7327-944d-ubw7m2jba02s 431dvdjk-3878-4058-944d-vxb4l9pob04l ANSI-Commercial sup6fo60-5939-0eg4-619u-4mlh1rgm9f86 ixc3ti90-9714-9gt7-037v-7zex5yjw4f37 ANSI-Commercial 9lho7rs7-05z2-5005-6hv7-6b4q6941ru82 5ikp5la5-13c9-0698-1bw8-8e5r9109fa87 ANSI-Medicare Part B zg4k7407-1pf8-82v1-r93s-ut619fr8l97p ol8m1897-7ig4-77t0-q05j-io221fk2d73b ANSI-Commercial 9md8100p-008r-6934-oke5-gu0926zw88rj 2fu9465v-150q-4548-qnd6-fh4446qh44wn ANSI-Commercial 2l02nk2g-574x-81o7-lk00-0100940a957b 9c66jz4y-743q-06o0-hp26-7681557d228f ANSI-Commercial 07215680-k57v-9290-f423-00s487uk96bz 66025654-n25a-2629-n347-82d252un99wa ANSI-Medicare Part B 1on030qw-949t-3215-sl48-3lnj2145863t 9cd648la-633i-0954-op13-6vhy2062069x ANSI-Commercial z04dv0vb-h3v1-80m7-6b69-666v417l59a0 u18xu4la-m0y7-08h7-8f66-658j433c52k9 ANSI-Commercial 1380x262-k43n-1746-784d-10pt9xz0839l 1437a272-n23b-1881-783m-52xc6ue6921g ANSI-Medicare Part B 944t78k0-60ru-8c38-3c62-97pfb7a749p4 245b47l6-20yy-2j88-9b62-85xxh5b886r3 ANSI-Commercial hgt38w1t-b3ee-4j11-2b1g-79l1rp740c31 ghf49y5u-p8iv-6f77-7z0h-22r6zr123f26 For Life - [facility] Part B [id number] 2.16.840.1.483685.3.227.99.572.98757.0 Family Dependent 1 [id number] r [facility] Part B [id number] 2.16.840.1.896736.3.227.99.572.303 39.0 Self [id number] Medicare (Part B) Medicare Primary [id number] 2.16.840.1.858924.3.227.99.572.06008.0 Self 2 [id number] ANSI-Commercial 6f15j016-p8w2-8405-0pdr-ny69poqm1362 6i60q537-e2o8-6215-6fgl-gy63bzxp6358 ANSI-Medicare Part B e6fq462f-150u-55p8-gvci-rg58107h0cc8 n5ha356m-867q-67r7-oznv-qy07762m0eg3 ANSI-Commercial 3ahk2de3-6149-17h8-b982-9743v2w88e16 2xxx8ci8-1774-20t6-x591-0064q2o58u89 ANSI-Commercial 97k513g5-3gh9-07f3-k423-3195842ou0hi 42l236l6-5xl7-32d4-a128-0753849yj6tb [facility] MEDICARE DIVISION [id number] S [id number] MEDICARE - [place] [id number] S [id number] ANSI-Commercial [id number] ANSI-Medicare Part B [id number] ANSI-Commercial [id number]-9ami-[id number] [id number]-4ybt-f1v2-8dkv60ldv9cs ANSI-Commercial [id number]-[id number]-hehz-[id number] FOR LIFE [id number] [facility] [id number] MEDICARE [id number] SP [id number] A ANSI-Commercial [id number] ANSI-Medicare Part B [id number] ANSI-Commercial [id number]-9wf8-017j-[id number]-[id number] ANSI-Commercial [id number]-zpwn-8i5f-dem3-[id number] [id number]-lgpi-9f8q-tjy5-[id number] ANSI-Commercial [id number]-o109-899e6wyspm2h ANSI-Medicare Part B [id number] ANSI-Commercial [id number]-[id number]-[id number] [id number]-955z-5410-[id number] ANSI-Commercial [id number]-[id number]-[id number] [facility] [id number] Family Dependent 1 [id number] [facility] [id number] 2.16.840.1.058615.3.227.99.572.303 39.0 Self [id number] Medicare (Part B) Medicare Primary [id number] 2.16.840.1.614356.3.227.99.572.44759.0 Self 2 [id number] For Life - WPS [facility] Part B [id number] 2.16.840.1.519985.3.227.99.572.27593.0 Family Dependent 1 [id number] [facility] Part B [id number] 2.16.840.1.593167.3.227.99.572.303 39.0 Self [id number] Medicare (Part B) Medicare Primary [id number] 2.16.840.1.429415.3.227.99.572.22875.0 Self 2 [id number] ANSI-Commercial [id number] ANSI-Commercial [id number] ANSI-Medicare Part B [id number] ANSI-Commercial [id number] ANSI-Medicare Part B [id number] ANSI-Commercial [id number]-[id number] [id number]-[id number] ANSI-Commercial [id number] ANSI-Commercial [id number]-[id number] [id number]-[id number] For Life - WPS [facility] Part B [id number] 2.0.1.239945.3.227.99.572.36996.0 Family Dependent 1 [id number] [facility] [id number] 2.0.1.519479.3.227.99.572.303 39.0 Self [id number] Medicare (Part B) Medicare Primary [id number] 2.0.1.548587.3.227.99.572.71368.0 Self 1 [id number] [employer] [id number] SP [id number] [employer] PPO O [id number] S [id number] MEDICARE C [id number] S [id number] A [place] - PHYSICIAN [id number] 01 [id number] [employer] -PHYSICIAN [id number] 1 [id number] MEDICARE PART A -O [id number] 18 [id number] [employer] -O [id number] 18 [id number] MEDICARE PART A -I/P [id number] 18 [id number] [place] [employer] - I/P [id number] 01 [id number] [employer]OM[employer] -O/P [id number] 18 [id number] N REGIONAL CLAIMS [facility] [id number] 01 [id number] [facility] Life [facility] [id number] 2.0.1.770060.3.227.99.572.54019.0 Family Dependent 1 [id number] Medicare (Part B) Medicare Primary [id number] 2.0.1.971137.3.227.99.572.62922.0 Self 1 [id number] [employer] PHCS Ppo Medigap Part B [id number] 2.16.840.1.745368.3.227. 99.572.69545.0 Self [id number] For Life - WPS Medigap Part B [id number] 2.16.840.1.470145.3.227.99.572.48257.0 Family Dependent 1 [id number] Medicare (Part B) Medicare Primary [id number] 2.16.840.1.563483.3.227.99.572.23281.0 Self 1 [id number] [employer] Standard Health Maintenance 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 (HMO) 11 [id number] 2.16.840.1.533125.3.227.99.8646.8124.0 Family Dependent 1 [id number] Ghi Medigap Part B [id number] 2.16.840.1.702417.3.227.99.8646.812 4.0 Self [id number] [employer] Medigap Part B [id number] 2.16.840.1.721652.3.227.99.8646.812 4.0 Self [id number] Medicare [place] Medicare Primary [id number] 2.16.840.1.106519.3.227.99.8646.8124.0 Self 1 [id number] For Life - WPS Medigap Part B [id number] 2.16.840.1.153263.3.227.99.572.75988.0 Family Dependent 1 [id number] Medicare (Part B) Medicare Primary [id number] 2.16.840.1.183508.3.227.99.572.28827.0 Self 1 [id number] For Life - WPS Medigap Part B [id number] 2.16.840.1.721515.3.227.99.572.86582.0 Family Dependent 1 [id number] Medicare (Part B) Medicare Primary [id number] 2.16.840.1.079801.3.227.99.572.28743.0 Self 1 [id number] [facility] [id number] SP [id number] MEDICARE [id number] SP [id number] A Medicare (Part B) Medicare Primary [id number] Self For Life - WPS Medigap Part B [id number] Family Depen dent [employer] Medigap Part B [id number] Self Medicare Medicare Primary [id number] Self [facility] [place] [id number] HU2 [id number] HEALTHNET/ AD O [id number] P [id number] [facility]BA [place] O [id number] S [id number] HEALTHNET O [id number] U 1 [id number] POM[facility] O [id number] S [id number] MEDICARE OUTPATIENT M [id number] S [id number] HEALTHNET O [id number] U [id number] MEDICARE [id number] SP [id number] UMR [facility] [id number] SP [id number] FOR LIFE [id number] HU2 [id number] R [facility] [id number] SP [id number] FOR LIFE UNAVAILABLE 01 U NAVAILABLE [facility] MEDICARE PART A [place] [id number] 18 [id number] [place] [id number] 18 [id number] MEDICARE PART A -O/P [id number] 18 [id number] UMR -O/P [id number] 18 [id number] [place] [employer] - O/P [id number] 01 [id number] MEDICARE [id number] SP [id number] MEDICARE [id number] SP [id number] UMR O [id number] S [id number] MEDICARE C [id number] S [id number] FOR LIFE O [id number] S [id number] MEDICARE PART A -O/P [id number] 18 [id number] [employer] [place] Other 0 [id number] Self 0 Medicare Part B [facility] Other 0 [id number] Self 0 ANSI-Commercial [id number] ANSI-Commercial [id number] ANSI-Commercial [id number]-[id number] ANSI-Medicare Part B [id number] ANSI-Commercial [id number]-[id number]-h08d-[id number] [id number]-h26i-7mt3-y67l-[id number] ANSI-Commercial [id number] ANSI-Medicare Part B [id number] ANSI-Commercial [id number]-[id number] ANSI-Commercial [id number] ANSI-Commercial [id number] ANSI-Medicare Part B [id number] ANSI-Commercial [id number] ANSI-Commercial [id number]-[id number] ANSI-Commercial [id number] ANSI-Commercial [id number] ANSI-Medicare Part B [id number] For Life - WPS Medigap Part B [id number].[id number] Family Dependent [id number] Umr Medigap Part B [id number] Self [id number] Medicare (Part B) Medicare Primary [id number] Self [id number] [employer] PHCS Ppo Medigap Part B [id number].[id number] Self [id number] ANSI-Commercial [id number] ANSI-Medicare Part B [id number] ANSI-Commercial [id number] ANSI-Commercial [id number] Problems, Conditions, and Diagnoses Code Display Name Description Problem Type Effective Dates Data Source(s) I12.9 Hypertensive chronic kidney disease with stage 1 through stage 4 chronic kidney disease, or unspecified chronic kidney disease HYPERTENSIVE CHRONIC KIDNEY DISEASE W STG 1-4/UNSP Diagnosis 08/02/2021 11:33:00 AM [facility] R80.9 Proteinuria, unspecified PROTEINURIA, UNSPECIFIED Diag nosis 08/02/2021 11:33:00 AM [facility] E83.52 Hypercalcemia HYPERCALCEMIA Diagnosis 08/02/2021 11:33:00 AM [facility] N18.30 CHRONIC KIDNEY DISEASE, STAGE 3 UNSPECIF CHRONIC KIDNEY DISEASE, STAGE 3 UNSPECIF Diagnosis 08/02/2021 11:33:00 AM [facility] l N18.32 CHRONIC KIDNEY DISEASE, STAGE 3B CHRONIC KIDNEY DISEASE, STAGE 3B Diagnosis 08/02/2021 11:33:00 AM [facility] R109 Unspecified abdominal pain Unspecified abdominal pain Diagnosis 05/31/2021 03:28:00 PM [facility] 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 Co mplications of stem cell transplant Diagnosis 05/16/2021 10:55:00 AM [facility] Q21446 Walys-sadrda-zgma disease, unspecified G spzu-alucjf-sepw disease, unspecified Diagnosis 05/04/2021 01:00:00 PM [facility] D471 Chronic myeloproliferative disease Chronic myelo proliferative disease Diagnosis 05/04/2021 01:00:00 PM [facility] 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 Diagnosis 04/05/2021 01:18:00 PM EDT [facility] Z9481 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 Diagnosis 10/05/2020 12:00:00 PM [facility] D7581 Myelofibrosis Myelofibrosis Diagnosis 10/05/2020 12:00:00 PM [facility] [id number] Essential hypertension Essential hypertension Problem 05/31/2021 12:00:00 AM EDT MEDENT ([facility]) R13.10 [id number] Dysphagia, unspecified type Problem 05/04/20 12:00:00 AM EDT eCW1 ([facility]) F43.22 [id number] Adjustment disorder with anxiety Problem 03/26/2021 12:00:00 AM EDT eCW1 ([facility]) E27.40 [id number] Adrenal insufficiency Problem 02/18/2021 12: 00:00 AM EDT eCW1 ([facility]) R94.31 Electrocardiogram abnormal Electrocardiogram abnormal Problem 02/10/2021 12:00:00 AM EDT [facility] ([facility]) E83.52 [id number] Hypercalcemia Problem 02/04/2021 12:00:00 AM EDT eCW1 ([facility]) I15.0 [id number] Renovascular hypertension Problem 01/19/2021 12:00:00 AM EDT eCW1 ([facility]) F33.0 [id number] 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 Problem 01/19/2021 12:00:00 AM EDT eCW1 ([facility]) F43.23 [id number] Adjustment disorder with mixed a nxiety and depressed mood Problem 11/17/2020 12:00:00 AM EST eCW1 ([facility]) Surgeries/Procedures Procedure Description Date Indications Data Source(s) ECG ROUTINE ECG W/LEAST 12 LDS W/I&R 02/10/2021 12:00: 00 AM EDT MEDENT ([facility]) Results ID Date Data Source [id number] 08/02/2021 12:17:00 PM EDT [facility] [phone] Name Value Range Interpretation Code Description Data [facility](s) Supporting Document(s) GLUCOSE 169 mg/dL 74-106 H [facility] BLOOD UREA NITROGEN 61 mg/dL 7-18 H [facility] ital CREATININE 2.48 mg/dL 0.6-1.0 H [facility] SODIUM 143 mmol/L 136-145 [facility] POTASSIUM 3.9 mmol/L 3.5-5.1 [facility] CHLORIDE 105 mmol/L 98-107 [facility] CO2 26 mmol/L 21-32 [facility] CALCIUM 9.9 mg/dL 8.5-10.1 [facility] GLOMERULAR FILTRATION RATE 20 mL/min [facility] GFR IS CALCULATED IN mL/min/1.73m2 STAS L FUNCTION: >90MILDLY DECREASED: 60-89MILDY TO MODERATELY DECREASED: 45-59 MODERATELY TO SEVERELY DECREASED: 30-44SEVERELY DECREASED: 15-29RENAL FAILURE: <15 ALBUMIN 3.5 gm/dL 3.4-5.0 [facility] PHOSPHOROUS 4.1 mg/dL 2.5-4.9 [facility] ID Date Data Source [id number] 05/21/2021 06:57:00 AM EDT [facility] Name Value Range Interpretation Code Description Data [facility](s) Supporting Document(s) Tacrolimus [Mass/volume] in Blood by LC/MS/MS 3.5 ng/mL 2.0-20.0 [facility] Trough (immediate ly following transplant) 15.0 Trough (steady state, 2 weeks or more after transplant): 3.0 - 8.0 Detection Limit = 1.0 Performed by LC-MS/MS technology. This test was developed and its performance characteristics determined by [employer]. It has not been cleared or approved by the Food and Drug Administration. ID Date Data Source [id number] 05/16/2021 12:04:00 PM EDT [facility] Name Value Range Interpretation Code Description Data [facility](s) Supporting Document(s) CBC W/AUTOMATED DIFF [facility] COMPLETE BLOOD COUNT Leukocytes [#/volume] in Blood by Automated count 5.3 10^3/uL 4.2 - 1 1.0 [facility] Erythrocytes [#/volume] in Blood by Automated count 3.52 10^6/uL 4. 20 - 5.40 L [facility] Hemoglobin [Mass/volume] in Blood 12.4 g/dL 12.0 - 16.0 [facility] Hematocrit [Volume Fraction] of Blood by Automated count 36.3 % 3 7.0 - 47.0 L [facility] Erythrocyte mean corpuscular volume [Entitic volume] b y Automated count 103.1 fL 81.0 - 101 H [facility] Erythrocyte mean corpuscular hemoglobin [Entitic mass] by Automated count 35.2 pg 27.0 - 34.0 H [facility] Erythrocyte mean corpuscular hemoglobin concentration [Mass/volume] by Automated count 34.2 g/dL 31.0 - 36.0 [facility] Erythrocyte distribution width [Ratio] by Automated count 14.0 % 11.5 - 14.5 [facility] Platelets [#/volume] in Blood by Automated count 161 10^3/uL 150 - 45 0 [facility] Platelet mean volume [Entitic volume] in Blood by Automated count 10.7 fL 7.4 - 10.4 H [facility] Neutrophils/100 leukocytes in Blood by Automated count 52.5 % 37. 0 - 80.0 [facility] Lymphocytes/100 leukocytes in Blood by Manual count 33.2 % 25.0 - 40.0 [facility] Monocytes/100 leukocytes in Blood by Automated count 11.6 % 3.0 - 8.0 H [facility] Eosinophils/100 leukocytes in Blood by Automated count 1.9 % 0.0 - 7.0 [facility] Basophils/100 leukocytes in Blood by Automated count 0.4 % 0.0 - 2.5 [facility] %IG 0.4 % 0.0 - 0.0 [facility] %[facility]BC 0.0 % 0.0 - 0.0 [facility] al Neutrophils [#/volume] in Blood by Automated count 2.77 10^3/uL 2.00 - 6.90 [facility] Lymphocytes [#/volume] in Blood by Automated count 1.75 10^3/uL 0.60 - 3.40 [facility] Monocytes [#/volume] in Blood by Automated count 0.61 10^3/uL 0.00 - 0.90 [facility] Eosinophils [#/volume] in Blood by Automated count 0.10 10^3/uL 0.00 - 0.70 [facility] Basophils [#/volume] in Blood by Automated count 0.02 10^3/uL 0.00 - 0.20 [facility] #IG 0.02 10^3/uL 0.00 - 0.10 [facility] ospital #NRBC 0.00 10^3/uL 0.00 - 0.00 [facility] ospital MANUAL DIFF NOT INDICATED [facility] RBC MORPH NOT INDICATED [facility] spital ID Date Data Source [id number] 05/16/2021 12:04:00 PM EDT [facility] Name Value Range Interpretation Code Description Data [facility](s) Supporting Document(s) Lactate dehydrogenase [Enzymatic activity/volume] in Serum o r Plasma 305 U/L 135 - 214 H [facility] ID Date Data Source [id number] 05/16/2021 12:04:00 PM EDT [facility] Name Value Range Interpretation Code Description Data [facility](s) Supporting Document(s) COMPREHENSIVE METABOLIC PANEL [facility] COMPREHENSIVE METABOLIC PANEL Sodium [Moles/volume] in Serum or Plasma 141 mEq/L 134 - 153 [facility] Potassium [Moles/volume] in Serum or Plasma 4.0 mEq/L 3.6 - 5.0 [facility] Chloride [Moles/volume] in Serum or Plasma 102 mEq/L 98 - 107 [facility] Carbon dioxide, total [Moles/volume] in Serum or Plasma 26 MEQ/L 22 - 30 [facility] Glucose [Mass/volume] in Serum or Plasma 280 MG/DL 70 - 99 [facility] BUN 45 MG/DL 7 - 21 [facility] Creatinine [Mass/volume] in Serum or Plasma 2.0 MG/DL 0.7 - 1.5 H [facility] BUN/CREAT 23 8 - 27 [facility] Protein [Mass/volume] in Serum or Plasma 5.9 G/DL 6.3 - 8.2 L [facility] Albumin [Mass/volume] in Serum or Plasma 4.1 G/DL 3.9 - 5.0 [facility] Globulin [Mass/volume] in Serum by calculation 1.8 GM/DL 2.4 - 3.2 L [facility] A/G RATIO 2.3 0.8 - 2.0 H [facility] Calcium [Mass/volume] in Serum or Plasma 10.1 MG/DL 8.4 - 10.2 [facility] Bilirubin.total [Mass/volume] in Serum or Plasma <0.7 MG/DL 0.2 - 1.3 [facility] Alkaline phosphatase [Enzymatic activity/volume] in Serum or Plasma 83 U/L 38 - 126 [facility] Aspartate aminotransferase [Enzymatic activity/volume] in Serum or Plasma 24 U/L 5 - 40 [facility] Alanine aminotransferase [Enzymatic activity/volume] in Seru m or Plasma 46 U/L 7 - 56 [facility] Anion gap 3 in Serum or Plasma 13.0 mmol/L 8.0 - 16.0 [facility] AGE 66 yrs [facility] al NON-AA GFR 27 mL/min [facility] AFR AMER GFR >60 [facility] pital Male GFR In terprentation 20-49 yrs [...] >32 mL/min Normal ID Date Data Source [id number] 05/16/2021 12:03:00 PM EDT [facility] Name Value Range Interpretation Code Description Data [facility](s) Supporting Document(s) Magnesium [Mass/volume] in Serum or Plasma 2.1 MG/DL 1.7 - 2.2 [facility] ID Date Data Source [id number] 05/08/2021 05:02:00 PM EDT [facility] Name Value Range Interpretation Code Description Data [facility] r[facility](s) Supporting Document(s) Tacrolimus [Mass/volume] in Blood by LC/MS/MS 3.2 ng/mL 2.0-20.0 [facility] Trough (immediate ly following transplant) 15.0 Trough (steady state, 2 weeks or more after transplant): 3.0 - 8.0 Detection Limit = 1.0 Performed by LC-MS/MS technology. This test was developed and its performance characteristics determined by [facility]. It has not been cleared or approved by the Food and Drug Administration. ID Date Data Source [id number] 05/04/2021 03:09:00 PM EDT [facility] Name Value Range Interpretation Code Description Data [facility] r[facility](s) Supporting Document(s) CVE PANEL [facility] al LIPID PANEL Cholesterol [Mass/volume] in Serum or Plasma 231 MG/DL 131 - 200 [facility] Deprecated Triglyceride [Mass/volume] in Serum or Plasma 341 MG/DL 3 5 - 160 [facility] HDL 62 MG/DL 29 - 86 [facility] al Cholesterol in LDL [Mass/volume] in Serum or Plasma by Direc t assay 133 mg/dL 65 - 175 [facility] Cholesterol.total/Cholesterol in HDL [Mass Ratio] in Serum o r Plasma 3.7 3.2 - 4.4 [facility] LDL/HDL 2.15 1.47 - 3.22 [facility] ital CVE RISK CHOL/HDL LDL/HDLMEN: 1/2 AVERAGE 3.43 1.00 AVERAGE 4.97 3.55 2X AVERAGE 9.55 6.25 3X AVERAGE 23.99 7.99WOMEN: 1/2 AVERAGE 3.27 1.47 AVERAGE 4.44 3.22 2X AVERAGE 7.05 5.03 3X AVERAGE 11.04 6.14 ID Date Data Source [id number] 05/04/2021 03:08:00 PM EDT [facility] Name Value Range Interpretation Code Description Data [facility] r[facility](s) Supporting Document(s) Magnesium [Mass/volume] in Serum or Plasma 2.6 MG/DL 1.7 - 2.2 H [facility] ID Date Data Source [id number] 05/04/2021 03:08:00 PM EDT [facility] Value Range Interpretation Code Description Data Aminta rce(s) Supporting Document(s) COMPREHENSIVE METABOLIC PANEL [facility] COMPREHENSIVE METABOLIC PANEL Sodium [Moles/volume] in Serum or Plasma 140 mEq/L 134 - 153 [facility] Potassium [Moles/volume] in Serum or Plasma 4.0 mEq/L 3.6 - 5.0 [facility] Chloride [Moles/volume] in Serum or Plasma 100 mEq/L 98 - 107 [facility] Carbon dioxide, total [Moles/volume] in Serum or Plasma 27 MEQ/L 22 - 30 [facility] Glucose [Mass/volume] in Serum or Plasma 161 MG/DL 70 - 99 H [facility] BUN 53 MG/DL 7 - 21 H [facility] al Creatinine [Mass/volume] in Serum or Plasma 2.5 MG/DL 0.7 - 1.5 H [facility] BUN/CREAT 21 8 - 27 [facility] Protein [Mass/volume] in Serum or Plasma 5.9 G/DL 6.3 - 8.2 L [facility] Albumin [Mass/volume] in Serum or Plasma 3.9 G/DL 3.9 - 5.0 [facility] Globulin [Mass/volume] in Serum by calculation 2.0 GM/DL 2.4 - 3.2 L [facility] A/G RATIO 2.0 0.8 - 2.0 [facility] Calcium [Mass/volume] in Serum or Plasma 10.5 MG/DL 8.4 - 10.2 H [facility] Bilirubin.total [Mass/volume] in Serum or Plasma <0.7 MG/DL 0.2 - 1.3 [facility] Alkaline phosphatase [Enzymatic activity/volume] in Serum or Plasma 68 U/L 38 - 126 [facility] Aspartate aminotransferase [Enzymatic activity/volume] in Serum or Plasma 31 U/L 5 - 40 [facility] Alanine aminotransferase [Enzymatic activity/volume] in Seru m or Plasma 51 U/L 7 - 56 [facility] Anion gap 3 in Serum or Plasma 13.0 mmol/L 8.0 - 16.0 [facility] 66 [facility] A[facility] AMER GFR >60 [facility] Male GFR In terprentation [...] >32 mL/min Normal ID Date Data Source [id number] 05/04/2021 02:45:00 PM EDT [facility] Name Value Range Interpretation Code Description Data Aminta rce(s) Supporting Document(s) CBC W/AUTOMATED DIFF [facility] COMPLETE BLOOD COUNT Leukocytes [#/volume] in Blood by Automated count 5.9 10^3/uL 4.2 - 1 1.0 [facility] Erythrocytes [#/volume] in Blood by Automated count 3.53 10^6/uL 4. 20 - 5.40 L [facility] Hemoglobin [Mass/volume] in Blood 12.5 g/dL 12.0 - 16.0 [facility] Hematocrit [Volume Fraction] of Blood by Automated count 36.6 % 3 7.0 - 47.0 L [facility] Erythrocyte mean corpuscular volume [Entitic volume] b y Automated count 103.7 fL 81.0 - 101 H [facility] Erythrocyte mean corpuscular hemoglobin [Entitic mass] by Automated count 35.4 pg 27.0 - 34.0 H [facility] Erythrocyte mean corpuscular hemoglobin concentration [Mass/volume] by Automated count 34.2 g/dL 31.0 - 36.0 [facility] Erythrocyte distribution width [Ratio] by Automated count 14.0 % 11.5 - 14.5 [facility] Platelets [#/volume] in Blood by Automated count 130 10^3/uL 150 - 45 0 L [facility] Platelet mean volume [Entitic volume] in Blood by Automated count 11.2 fL 7.4 - 10.4 H [facility] Neutrophils/100 leukocytes in Blood by Automated count 58.0 % 37. 0 - 80.0 [facility] Lymphocytes/100 leukocytes in Blood by Manual count 28.9 % 25.0 - 40.0 [facility] Monocytes/100 leukocytes in Blood by Automated count 10.9 % 3.0 - 8.0 H [facility] Eosinophils/100 leukocytes in Blood by Automated count 1.4 % 0.0 - 7.0 [facility] Basophils/100 leukocytes in Blood by Automated count 0.3 % 0.0 - 2.5 [facility] %IG 0.5 % 0.0 - 0.0 H [facility] %NRBC 0.0 % 0.0 - 0.0 [facility] [#/volume] in Blood by Automated count 3.42 10^3/uL 2.00 - 6.90 [facility] Lymphocytes [#/volume] in Blood by Automated count 1.70 10^3/uL 0.60 - 3.40 [facility] Monocytes [#/volume] in Blood by Automated count 0.64 10^3/uL 0.00 - 0.90 [facility] Eosinophils [#/volume] in Blood by Automated count 0.08 10^3/uL 0.00 - 0.70 [facility] Basophils [#/volume] in Blood by Automated count 0.02 10^3/uL 0.00 - 0.20 [facility] #IG 0.03 10^3/uL 0.00 - 0.10 [facility] #NRBC 0.00 10^3/uL 0.00 - 0.00 [facility] MANUAL DIFF NOT INDICATED [facility] RBC MORPH NOT INDICATED [facility] spital ID Date Data Source [id number] 04/06/2021 09:34:46 AM EDT [facility] Name Value Range Interpretation Code Description Data Aminta rce(s) Supporting Document(s) Tacrolimus [Mass/volume] in Blood 2.3 ng/mL [facility] Renal Transplant Target ValuesImmediate post-transplant: 10 - 15 ng/mL First 6 months: 6 - 15 ng/mL Greater than 6 months: 6 - 15 ng/mL ID Date Data Source Ionized Calcium 02/18/2021 12:00:00 AM EDT eCW1 ([facility]) Name Value Range Interpretation Code Description Data Aminta rce(s) Supporting Document(s) 4.9 4.5-5.3 IONIZED CALCIUM eCW1 ([facility]) ID Date Data Source [id number] 01/30/2021 04:05:00 PM EDT MEDENT ([facility] Name Value Range Interpretation Code Description Data Aminta rce(s) Supporting Document(s) Troponin Laboratory test result MEDENT (Card[facility]) ID Date Data Source [id number] 01/30/2021 04:05:00 PM EDT [facility] ([facility] Name Value Range Interpretation Code Description Data Aminta rce(s) Supporting Document(s) White Blood Count 6.4 5.0-10.0 MEDENT ([facility]) Platelets 133 172-450 [facility] Red Blood Count 3.58 4.00-5.40 MEDENT ([facility]io [facility]) Hemoglobin 12.2 MEDENT ([facility]) Hematocrit 36.2 MEDENT ([facility]) ID Date Data Source [id number] 10/07/2020 09:04:00 PM [facility] Name Value Range Interpretation Code Description Data Aminta rce(s) Supporting Document(s) Tacrolimus [Mass/volume] in Blood by LC/MS/MS 2.6 ng/mL 2.0-20.0 [facility] Trough (immediate ly following transplant) 15.0 Trough (steady state, 2 weeks or more after transplant): 3.0 - 8.0 Detection Limit = 1.0 Performed by LC-MS/MS technology. This test was developed and its performance characteristics determined by [facility]. It has not been cleared or approved by the Food and Drug Administration. ID Date Data Source [id number] 10/05/2020 02:29:00 PM [facility] Name Value Range Interpretation Code Description Data Aminta rce(s) Supporting Document(s) COMPREHENSIVE METABOLIC PANEL [facility] COMPREHENSIVE METABOLIC PANEL Sodium [Moles/volume] in Serum or Plasma 137 mEq/L 134 - 153 [facility] Potassium [Moles/volume] in Serum or Plasma 4.4 mEq/L 3.6 - 5.0 [facility] Chloride [Moles/volume] in Serum or Plasma 98 mEq/L 98 - 107 [facility] Carbon dioxide, total [Moles/volume] in Serum or Plasma 26 MEQ/L 22 - 30 [facility] Glucose [Mass/volume] in Serum or Plasma 88 MG/DL 65 - 110 [facility] BUN 30 MG/DL 7 - 21 [facility] Creatinine [Mass/volume] in Serum or Plasma 1.3 MG/DL 0.7 - 1.5 [facility] BUN/CREAT 23 8 - 27 [facility] Protein [Mass/volume] in Serum or Plasma 6.2 G/DL 6.3 - 8.2 L [facility] Albumin [Mass/volume] in Serum or Plasma 4.2 G/DL 3.9 - 5.0 [facility] Globulin [Mass/volume] in Serum by calculation 2.0 GM/DL 2.4 - 3.2 L [facility] A/G RATIO 2.1 0.8 - 2.0 H [facility] Calcium [Mass/volume] in Serum or Plasma 10.1 MG/DL 8.4 - 10.2 [facility] Bilirubin.total [Mass/volume] in Serum or Plasma <0.7 MG/DL 0.2 - 1.3 [facility] Alkaline phosphatase [Enzymatic activity/volume] in Serum or Plasma 91 U/L 38 - 126 [facility] Aspartate aminotransferase [Enzymatic activity/volume] in Serum or Plasma 25 U/L 5 - 40 [facility] Alanine aminotransferase [Enzymatic activity/volume] in Seru m or Plasma 34 U/L 7 - 56 [facility] Anion gap 3 in Serum or Plasma 13.0 mmol/L 8.0 - 16.0 [facility]GE 65 [facility] A[facility] AMER GFR >60 [facility] Male GFR In terprentation [...] >32 mL/min Normal ID Date Data Source [id number] 10/05/2020 02:29:00 PM EST [facility] Name Value Range Interpretation Code Description Data Aminta rce(s) Supporting Document(s) Lactate dehydrogenase [Enzymatic activity/volume] in Serum o r Plasma 293 U/L 135 - 214 H [facility] ID Date Data Source [id number] 10/05/2020 02:27:00 PM [facility] Name Value Range Interpretation Code Description Data Aminta rce(s) Supporting Document(s) Magnesium [Mass/volume] in Serum or Plasma 1.9 MG/DL 1.7 - 2.2 [facility] ID Date Data Source [id number] 10/05/2020 01:58:00 PM [facility] Name Value Range Interpretation Code Description Data Aminta rce(s) Supporting Document(s) CBC W/AUTOMATED DIFF [facility] COMPLETE BLOOD COUNT Leukocytes [#/volume] in Blood by Automated count 6.5 10^3/uL 4.2 - 1 1.0 [facility] Erythrocytes [#/volume] in Blood by Automated count 3.73 10^6/uL 4. 20 - 5.40 L [facility] Hemoglobin [Mass/volume] in Blood 12.5 g/dL 12.0 - 16.0 [facility] Hematocrit [Volume Fraction] of Blood by Automated count 36.5 % 3 7.0 - 47.0 L [facility] Erythrocyte mean corpuscular volume [Entitic volume] by Auto mated count 97.9 fL 81.0 - 101 [facility] Erythrocyte mean corpuscular hemoglobin [Entitic mass] by Automated count 33.5 pg 27.0 - 34.0 [facility] Erythrocyte mean corpuscular hemoglobin concentration [Mass/volume] by Automated count 34.2 g/dL 31.0 - 36.0 [facility] Erythrocyte distribution width [Ratio] by Automated count 13.6 % 11.5 - 14.5 [facility] Platelets [#/volume] in Blood by Automated count 181 10^3/uL 150 - 45 0 [facility] Platelet mean volume [Entitic volume] in Blood by Automated count 9.9 fL 7.4 - 10.4 [facility] Neutrophils/100 leukocytes in Blood by Automated count 58.2 % 37. 0 - 80.0 [facility] Lymphocytes/100 leukocytes in Blood by Manual count 28.0 % 25.0 - 40.0 [facility] Monocytes/100 leukocytes in Blood by Automated count 11.1 % 3.0 - 8.0 H [facility] Eosinophils/100 leukocytes in Blood by Automated count 2.2 % 0.0 - 7.0 [facility] Basophils/100 leukocytes in Blood by Automated count 0.3 % 0.0 - 2.5 [facility] %IG 0.2 % 0.0 - 0.0 H [facility] al %NRBC 0.0 % 0.0 - 0.0 [facility] al Neutrophils [#/volume] in Blood by Automated count 3.79 10^3/uL 2.00 - 6.90 [facility] Lymphocytes [#/volume] in Blood by Automated count 1.82 10^3/uL 0.60 - 3.40 [facility] Monocytes [#/volume] in Blood by Automated count 0.72 10^3/uL 0.00 - 0.90 [facility] Eosinophils [#/volume] in Blood by Automated count 0.14 10^3/uL 0.00 - 0.70 [facility] Basophils [#/volume] in Blood by Automated count 0.02 10^3/uL 0.00 - 0.20 [facility] #IG 0.01 10^3/uL 0.00 - 0.10 [facility] ospital #NRBC 0.00 10^3/uL 0.00 - 0.00 [facility] MANUAL DIFF NOT INDICATED [facility] RBC MORPH NOT INDICATED [facility] spital ID Date Data Source [id number] 09/05/2020 08:12:34 AM EDT [facility] Name Value Range Interpretation Code Description Data Aminta rce(s) Supporting Document(s) Progress Note [facility] [id number] lbm [file] [id number]== ID Date Data Source [id number] 09/06/2020 07:27:46 AM EST [facility] Name Value Range Interpretation Code Description Data Aminta rce(s) Supporting Document(s) Specimen source [Identifier] of Unspecified specimen [facility] SARS-CoV-2 RNA 2018 nCoV Real-Time RT-PCR: NOT DETECTED [facility] Assay Performed [facility] 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[facility] Patient has symptoms related to [facility] When did you start to experience these symptoms [Date and time] [Phen X] [facility] Patient was hospitalized because of this condition [facility] patient was admitted to ICU for [facility] Patient resides in a congregate care setting [facility] status [facility] ID Date Data Source [id number] 09/05/2020 08:12:00 AM EDT [facility] Name Value Range Interpretation Code Description Data Aminta rce(s) Supporting Document(s) SARS-CoV-2 RNA [facility] This lab was ordered by [facility] and reported by [facility]. ID Date Data Source [id number] 09/02/2020 06:12:00 PM EDT [facility] Name Value Range Interpretation Code Description Data Aminta rce(s) Supporting Document(s) Tacrolimus [Mass/volume] in Blood by LC/MS/MS 3.4 ng/mL 2.0-20.0 [facility] Trough (immediate ly following transplant) 15.0 Trough (steady state, 2 weeks or more after transplant): 3.0 - 8.0 Detection Limit = 1.0 Performed by LC-MS/MS technology. This test was developed and its performance characteristics determined by [employer]. It has not been cleared or approved by the Food and Drug Administration. ID Date Data Source [id number] 08/31/2020 02:11:00 PM EDT [facility] Name Value Range Interpretation Code Description Data Aminta rce(s) Supporting Document(s) Lactate dehydrogenase [Enzymatic activity/volume] in Serum o r Plasma 275 U/L 135 - 214 H [facility] ID Date Data Source [id number] 08/31/2020 02:11:00 PM EDT [facility] Name Value Range Interpretation Code Description Data Aminta rce(s) Supporting Document(s) COMPREHENSIVE METABOLIC PANEL [facility] COMPREHENSIVE METABOLIC PANEL Sodium [Moles/volume] in Serum or Plasma 137 mEq/L 134 - 153 [facility] Potassium [Moles/volume] in Serum or Plasma 4.2 mEq/L 3.6 - 5.0 [facility] Chloride [Moles/volume] in Serum or Plasma 99 mEq/L 98 - 107 [facility] Carbon dioxide, total [Moles/volume] in Serum or Plasma 28 MEQ/L 22 - 30 [facility] Glucose [Mass/volume] in Serum or Plasma 142 MG/DL 65 - 110 H [facility] BUN 34 MG/DL 7 - 21 [facility] Creat[facility] [Mass/volume] in Serum or Plasma 1.4 MG/DL 0.7 - 1.5 [facility] BUN/CREAT 24 8 - 27 [facility] Protein [Mass/volume] in Serum or Plasma 6.3 G/DL 6.3 - 8.2 [facility] Albumin [Mass/volume] in Serum or Plasma 4.1 G/DL 3.9 - 5.0 [facility] Globulin [Mass/volume] in Serum by calculation 2.2 GM/DL 2.4 - 3.2 L [facility] A/G RATIO 1.9 0.8 - 2.0 [facility] Calcium [Mass/volume] in Serum or Plasma 10.0 MG/DL 8.4 - 10.2 [facility] Bilirubin.total [Mass/volume] in Serum or Plasma <0.7 MG/DL 0.2 - 1.3 [facility] Alkaline phosphatase [Enzymatic activity/volume] in Serum or Plasma 94 U/L 38 - 126 [facility] Aspartate aminotransferase [Enzymatic activity/volume] in Serum or Plasma 22 U/L 5 - 40 [facility] Alanine aminotransferase [Enzymatic activity/volume] in Seru m or Plasma 31 U/L 7 - 56 [facility] Anion gap 3 in Serum or Plasma 10.0 mmol/L 8.0 - 16.0 [facility] AGE 65 yrs [facility] NON-AA GFR 40 mL/min [facility] AFR AMER GFR >60 [facility] Male GFR In terprentation [...] >32 mL/min Normal ID Date Data Source [id number] 08/31/2020 02:11:00 PM EDT [facility] Name Value Range Interpretation Code Description Data Aminta rce(s) Supporting Document(s) Magnesium [Mass/volume] in Serum or Plasma 1.9 MG/DL 1.7 - 2.2 [facility] ID Date Data Source [id number] 08/31/2020 01:41:00 PM EDT [facility] Name Value Range Interpretation Code Description Data Aminta rce(s) Supporting Document(s) CBC W/AUTOMATED DIFF [facility] COMPLETE BLOOD COUNT Leukocytes [#/volume] in Blood by Automated count 5.7 10^3/uL 4.2 - 1 1.0 [facility] Erythrocytes [#/volume] in Blood by Automated count 3.67 10^6/uL 4. 20 - 5.40 L [facility] Hemoglobin [Mass/volume] in Blood 12.5 g/dL 12.0 - 16.0 [facility] Hematocrit [Volume Fraction] of Blood by Automated count 35.9 % 3 7.0 - 47.0 L [facility] Erythrocyte mean corpuscular volume [Entitic volume] by Auto mated count 97.8 fL 81.0 - 101 [facility] Erythrocyte mean corpuscular hemoglobin [Entitic mass] by Automated count 34.1 pg 27.0 - 34.0 H [facility] Erythrocyte mean corpuscular hemoglobin concentration [Mass/volume] by Automated count 34.8 g/dL 31.0 - 36.0 [facility] Erythrocyte distribution width [Ratio] by Automated count 13.4 % 11.5 - 14.5 [facility] Platelets [#/volume] in Blood by Automated count 159 10^3/uL 150 - 45 0 [facility] Platelet mean volume [Entitic volume] in Blood by Automated count 10.3 fL 7.4 - 10.4 [facility] Neutrophils/100 leukocytes in Blood by Automated count 61.6 % 37. 0 - 80.0 [facility] Lymphocytes/100 leukocytes in Blood by Manual count 24.6 % 25.0 - 40.0 L [facility] Monocytes/100 leukocytes in Blood by Automated count 10.5 % 3.0 - 8.0 H [facility] Eosinophils/100 leukocytes in Blood by Automated count 2.8 % 0.0 - 7.0 [facility] Basophils/100 leukocytes in Blood by Automated count 0.3 % 0.0 - 2.5 [facility] %IG 0.2 % 0.0 - 0.0 [facility] 0.0 % 0.0 - 0.0 [facility] al Neutrophils [#/volume] in Blood by Automated count 3.54 10^3/uL 2.00 - 6.90 [facility] Lymphocytes [#/volume] in Blood by Automated count 1.41 10^3/uL 0.60 - 3.40 [facility] Monocytes [#/volume] in Blood by Automated count 0.60 10^3/uL 0.00 - 0.90 [facility] Eosinophils [#/volume] in Blood by Automated count 0.16 10^3/uL 0.00 - 0.70 [facility] Basophils [#/volume] in Blood by Automated count 0.02 10^3/uL 0.00 - 0.20 [facility] #IG 0.01 10^3/uL 0.00 - 0.10 [facility] #NRBC 0.00 10^3/uL 0.00 - 0.00 [facility] MANUAL DIFF NOT INDICATED [facility] RBC MORPH NOT INDICATED [facility] ID Date Data Source [id number] 08/18/2020 10:36:26 AM EDT [facility] Name Value Range Interpretation Code Description Data Aminta rce(s) Supporting Document(s) Progress Note [facility] EHTVBv4hCjQLCtTb27/EULyyQIMql5FcTZvrUYy3AEkuFGEiV1GhARI7mB5kBWT6FZfVGtRyAjBlVJYx lbm [file] ICAgICAgICAgICAgICAgICAgICAgICAgICAgICAgICAgICAgICAgICAgICAgICAgICAgICAgICAgICAg ICAgICAgICAgICAgICAgICAgICAgDQogICAgICAgICAgICAgICAgICAgICAgICAgICAgICAgICAgICAg ICAgICAgICAgICAgICAgICAgICAgICAgICAgICAgIC AgICAgICAgICAgICAgICAgICAgICAgICAgICAgICAgDQogICAgICAgICAgICAgICAgICAgICAgICAgIC AgICAgICAgICAgICAgICAgICAgICAgICAgICAgICAgICAgICAgICAgICAgICAgICAgICAgICAgICAgIC AgICAgICAgICAgICAgDQogICAgICAgICAgICAgICAg ICAgICAgICAgICAgICAgICAgICAgICAgICAgICAgICAgICAgICAgICAgICAgICAgICAgICAgICAgICAg ICAgICAgICAgICAgICAgICAgICAgICAgDQogICAgICAgICAgICAgICAgICAgICAgICAgICAgICAgICAg ICAgICAgICAgICAgICAgICAgICAgICAgICAgICAgIC AgICAgICAgICAgICAgICAgICAgICAgICAgICAgICAgICAgDQogICAgICAgICAgICAgICAgICAgICAgIC AgICAgICAgICAgICAgICAgICAgICAgICAgICAgICAgICAgICAgICAgICAgICAgICAgICAgICAgICAgIC AgICAgICAgICAgICAgICAgDQogICAgICAgICAgICAg ICAgICAgICAgICAgICAgICAgICAgICAgICAgICAgICAgICAgICAgICAgICAgICAgICAgICAgICAgICAg ICAgICAgICAgICAgICAgICAgICAgICAgICAgDQogICAgICAgICAgICAgICAgICAgICAgICAgICAgICAg ICAgICAgICAgICAgICAgICAgICAgICAgICAgICAgIC AgICAgICAgICAgICAgICAgICAgICAgICAgICAgICAgICAgICAgDQogICAgICAgICAgICAgICAgICAgIC AgICAgICAgICAgICAgICAgICAgICAgICAgICAgICAgICAgICAgICAgICAgICAgICAgICAgICAgICAgIC AgICAgICAgICAgICAgICAgICAgDQogICAgICAgICAg ICAgICAgICAgICAgICAgICAgICAgICAgICAgICAgICAgICAgICAgICAgICAgICAgICAgICAgICAgICAg IGWwAZVfQUAtDWHpSMOaKPCrXNCdBFPtYJLcJJGdQNq5R3sdVOKcHYJjZG4qKRr1Tr1+DQoNCmVuZHN0 hiGmlS2PTG5he8DvMXyjVCJpw6FkRAc2VP3CSQEcEM imJR2UYNtzsi7ALGVyPMLuoUVXx6xjYbMjATT6UBGqKwtsON0BGENdT0herjUqPRImKLBWIW9DJtEdE5 MevQ92ZAETAo5+PSxcobJjYhgGCuN0VXDnb1DhTXi7MF8JAMIeVkkbm9UyTeRzESJQBNthLD9QFOB2CK KbMMQzGq9YMFUdV636chRmFF8MKf3OPkGpAQ9hjj1D DzLtYZGmClrSYkp4HKucHF3XsLJuKYdBmv2fouNwhtWWu0QwyuHduIIUHXEmtMBOPVLuBPTyKPgqBSTO BmVxhMYdYF7fWt7eMDSfYSKpSsAlCEOORI2KTGHpRAMcnJWuNNUhVYHUHW5KIGlnQIC1SINtulGjlIIe LZuvVV1FFNZbvwQfHLcgKCUFWWo+Lt8BOQ9gh9QgOQ jzIOJgNI7uah1IGMvQIcLoN4T9vTIuB4S6EAtwJe7NQPGsMPTrZHxlFSCXRQxiZR3EDK9qpvO3TH6FgL MsJNCdMVZcgCWaIEp0H55nwLHbJObgAO0CJKM+Jovita+Kx0MNZYtPWTaHEBvMiQvVEOTKiDmN2VgC9NJu3 RkC3SlFW48rWucuaKmGRhtTL7JLC0eDUPzMCAENG2A eMMceT3temOgDLHwIVMNAkUvH09xnGTnDATgKRC1RDZgZg7EONByX2FpbgUqoPvafnQoFUPtSQKOAZ2K DJhvvlDquLZajUjnRP72dKgtFD3GPu5FZsZwWG4jyp3HvEJzBl5XCHIpWl6PWLCxJXYxAQLoJMY3RAGu TzNrWGtuONLxGOVbNOH3UISqOONnIL5NLmLxNNVjXI tmSEYwUFHkTSHkxu1BNAVzOTSrHRgySVKrRAXqHYOhOBjiOQPuHJCxUVC3HTPpOHXxGG4DMqUcEJRsTA VnPskjBBEcOXAsdx2MSACpFMVbPtChZmNxYEItNCCgZOwxQUZeZWZiJWxtWVOoMWXgPN2RQvLvWIBwKR WfHJzqJZWbSQZywk6VXVNsYEZoGpP1PdFnDYUkQSZu PEitIXHwPLT5YYY3FMWjHYWcDD9JDhPiGCJnIKJ3XxzgSEUhFQFepc7PHVXzRGPdXFojRDSsCEFnKNQn SAwnJOJtSNA4JqF7HYSoDNBlDM7NCqKsHJDgJHS6SNJwYQNvWHKqeb0VIQBkAMYtNrk0NYDcZYTtRBOr FQiwJBMdOKY9YGY9LZLaNWMfUJ8HWkGlIOMvSWhzCH ZwYOGmFKYdvi2FZTOrXDYmRaQ6BVOmQQMhNGUnMFpjNBGsOWU9JRF2AJZlXCVwOI2NQhDiDCUrFDuuZH ixPUWoNHKxnm3FCOHsLDAaSKO0WCXyKTUqPRCcRZx7fhOdeOHiCNs4RP1BY9OfwlWaNnBYIj2Kp269GZ BrKWJzPu5CE2guXh5oMVFmCQIHMq9KMNq4CBE2YCJ5 C9IzCIkwD8I5FwPsRBOyPqviBiiiUcp1BnS+LMdeEAQ8KUZ4G9P6FRKfVARqERT2DGTyQ7W7B8T8PErx ES7qLAUICy6+NMophQSobFbrKOAAZbR3FYo7XZfbDPYYKd0H ID Date Data Source [id number] 08/19/2020 11:46:01 AM EDT [facility] Name Value Range Interpretation Code Description Data Aminta rce(s) Supporting Document(s) Specimen source [Identifier] of Unspecified specimen [facility] SARS-CoV-2 RNA 2018 nCoV Real-Time RT-PCR: NOT DETECTED [facility] Assay Performed [facility] Initial validation was performed by the Centers for Disease Control and Prevention (CDC) and additionally validated by the Dept. of Pathology [facility]. Negative results do not preclude SARS-CoV-2 infection and should not be used as the sole basis for patient management decisions.Additional information is available on the following FDA websites for health care providers and patients. https://www.fda.gov/media/560328/download, https://www.fda.gov/media/727919/download. 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[facility] Patient has symptoms related to [facility] When did you start to experience these symptoms [Date and time] [Phen X] [facility] Patient was hospitalized because of this condition [facility] patient was admitted to ICU for [facility] Patient resides in a congregate care setting [facility] status [facility] ID Date Data Source [id number] 08/18/2020 10:36:00 AM EDT [facility] Name Value Range Interpretation Code Description Data Aminta rce(s) Supporting Document(s) SARS-CoV-2 RNA [facility] This lab was ordered by [facility] and reported by [facility]. ID Date Data Source [id number] 07/10/2020 09:43:00 PM EDT [facility] Name Value Range Interpretation Code Description Data Aminta rce(s) Supporting Document(s) Tacrolimus [Mass/volume] in Blood by LC/MS/MS 1.9 ng/mL 2.0-20.0 L [facility] Trough (immediate ly following transplant) 15.0 Trough (steady state, 2 weeks or more after transplant): 3.0 - 8.0 Detection Limit = 1.0 Performed by LC-MS/MS technology. This test was developed and its performance characteristics determined by [employer]. It has not been cleared or approved by the Food and Drug Administration. ID Date Data Source [id number] 07/07/2020 01:33:00 PM EDT [facility] Name Value Range Interpretation Code Description Data Aminta rce(s) Supporting Document(s) Lactate dehydrogenase [Enzymatic activity/volume] in Serum o r Plasma 301 U/L 135 - 214 H [facility] ID Date Data Source [id number] 07/07/2020 01:33:00 PM EDT [facility] Name Value Range Interpretation Code Description Data Aminta rce(s) Supporting Document(s) COMPREHENSIVE METABOLIC PANEL [facility] COMPREHENSIVE METABOLIC PANEL Sodium [Moles/volume] in Serum or Plasma 135 mEq/L 134 - 153 [facility] Potassium [Moles/volume] in Serum or Plasma 4.3 mEq/L 3.6 - 5.0 [facility] Chloride [Moles/volume] in Serum or Plasma 99 mEq/L 98 - 107 [facility] Carbon dioxide, total [Moles/volume] in Serum or Plasma 24 MEQ/L 22 - 30 [facility] Glucose [Mass/volume] in Serum or Plasma 92 MG/DL 65 - 110 [facility] BUN 34 MG/DL 7 - 21 H [facility] Creatinine [Mass/volume] in Serum or Plasma 1.5 MG/DL 0.7 - 1.5 [facility] BUN/CREAT 23 8 - 27 [facility] [Mass/volume] in Serum or Plasma 5.9 G/DL 6.3 - 8.2 L [facility] Albumin [Mass/volume] in Serum or Plasma 3.9 G/DL 3.9 - 5.0 [facility] Globulin [Mass/volume] in Serum by calculation 2.0 GM/DL 2.4 - 3.2 L [facility] A/G RATIO 2.0 0.8 - 2.0 [facility] Calcium [Mass/volume] in Serum or Plasma 9.7 MG/DL 8.4 - 10.2 [facility] Bilirubin.total [Mass/volume] in Serum or Plasma <0.7 MG/DL 0.2 - 1.3 [facility] Alkaline phosphatase [Enzymatic activity/volume] in Serum or Plasma 91 U/L 38 - 126 [facility] Aspartate aminotransferase [Enzymatic activity/volume] in Serum or Plasma 23 U/L 5 - 40 [facility] Alanine aminotransferase [Enzymatic activity/volume] in Seru m or Plasma 29 U/L 7 - 56 [facility] Anion gap 3 in Serum or Plasma 12.0 mmol/L 8.0 - 16.0 [facility]GE 65 [facility]min [facility] A[facility] AMER GFR >60 [facility] Male GFR In terprentation [...] >32 mL/min Normal ID Date Data Source [id number] 07/07/2020 01:23:00 PM EDT [facility] Name Value Range Interpretation Code Description Data Aminta rce(s) Supporting Document(s) Magnesium [Mass/volume] in Serum or Plasma 1.7 MG/DL 1.7 - 2.2 [facility] ID Date Data Source [id number] 07/07/2020 01:16:00 PM EDT [facility] Name Value Range Interpretation Code Description Data Aminta rce(s) Supporting Document(s) CBC W/AUTOMATED DIFF [facility] COMPLETE BLOOD COUNT Leukocytes [#/volume] in Blood by Automated count 5.6 10^3/uL 4.2 - 1 1.0 [facility] Erythrocytes [#/volume] in Blood by Automated count 3.27 10^6/uL 4. 20 - 5.40 L [facility] Hemoglobin [Mass/volume] in Blood 11.0 g/dL 12.0 - 16.0 L [facility] Hematocrit [Volume Fraction] of Blood by Automated count 31.9 % 3 7.0 - 47.0 L [facility] Erythrocyte mean corpuscular volume [Entitic volume] by Auto mated count 97.6 fL 81.0 - 101 [facility] Erythrocyte mean corpuscular hemoglobin [Entitic mass] by Automated count 33.6 pg 27.0 - 34.0 [facility] Erythrocyte mean corpuscular hemoglobin concentration [Mass/volume] by Automated count 34.5 g/dL 31.0 - 36.0 [facility] Erythrocyte distribution width [Ratio] by Automated count 13.3 % 11.5 - 14.5 [facility] Platelets [#/volume] in Blood by Automated count 150 10^3/uL 150 - 45 0 [facility] Platelet mean volume [Entitic volume] in Blood by Automated count 10.0 fL 7.4 - 10.4 [facility] Neutrophils/100 leukocytes in Blood by Automated count 60.9 % 37. 0 - 80.0 [facility] Lymphocytes/100 leukocytes in Blood by Manual count 24.6 % 25.0 - 40.0 L [facility] Monocytes/100 leukocytes in Blood by Automated count 11.2 % 3.0 - 8.0 H [facility] Eosinophils/100 leukocytes in Blood by Automated count 2.7 % 0.0 - 7.0 [facility] Basophils/100 leukocytes in Blood by Automated count 0.4 % 0.0 - 2.5 [facility] %IG 0.2 % 0.0 - 0.0 H [facility] %NRBC 0.0 % 0.0 - 0.0 [facility] Neutrophils [#/volume] in Blood by Automated count 3.43 10^3/uL 2.00 - 6.90 [facility] Lymphocytes [#/volume] in Blood by Automated count 1.38 10^3/uL 0.60 - 3.40 [facility] Monocytes [#/volume] in Blood by Automated count 0.63 10^3/uL 0.00 - 0.90 [facility] Eosinophils [#/volume] in Blood by Automated count 0.15 10^3/uL 0.00 - 0.70 [facility] Basophils [#/volume] in Blood by Automated count 0.02 10^3/uL 0.00 - 0.20 [facility] #IG 0.01 10^3/uL 0.00 - 0.10 [facility] #NRBC 0.00 10^3/uL 0.00 - 0.00 [facility] MANUAL DIFF NOT INDICATED [facility] RBC MORPH NOT INDICATED [facility] Procedure Social History Code Duration Value Status Description Data Source(s ) Smoking 08/11/2021 12:00:00 AM EDT Never Smoker completed Never S moker eCW1 ([facility]) Smoking 05/11/2021 12:00:00 AM EDT Never Smoker completed Never S moker eCW1 ([facility]) Smoking 05/11/2021 12:00:00 AM EDT Never Smoker completed Never S moker eCW1 ([facility]) Smoking 05/11/2021 12:00:00 AM EDT Never Smoker completed Never S moker eCW1 ([facility]) Smoking 05/11/2021 12:00:00 AM EDT Never Smoker completed Never S moker eCW1 ([facility]) Smoking 05/04/2021 12:00:00 AM EDT Never Smoker completed Never S moker eCW1 ([facility]) Smoking 05/04/2021 12:00:00 AM EDT Never Smoker completed Never S moker eCW1 ([facility]) Smoking 04/01/2021 12:00:00 AM EDT Never Smoker completed Never S moker eCW1 ([facility]) Smoking 04/01/2021 12:00:00 AM EDT Never Smoker completed Never S moker eCW1 ([facility]) Smoking 04/01/2021 12:00:00 AM EDT Never Smoker completed Never S moker eCW1 ([facility]) Smoking 04/01/2021 12:00:00 AM EDT Never Smoker completed Never S moker eCW1 ([facility]) Smoking 04/01/2021 12:00:00 AM EDT Never Smoker completed Never S moker eCW1 ([facility]) Smoking 03/04/2021 12:00:00 AM EDT Never Smoker completed Never S moker eCW1 ([facility]) Smoking 03/04/2021 12:00:00 AM EDT Never Smoker completed Never S moker eCW1 ([facility]) Smoking 03/04/2021 12:00:00 AM EDT Never Smoker completed Never S moker eCW1 ([facility]) Smoking 03/04/2021 12:00:00 AM EDT Never Smoker completed Never S moker eCW1 ([facility]) Smoking 03/04/2021 12:00:00 AM EDT Never Smoker completed Never S moker eCW1 ([facility]) Smoking 03/04/2021 12:00:00 AM EDT Never Smoker completed Never S moker eCW1 ([facility]) Smoking 02/18/2021 12:00:00 AM EDT Never Smoker completed Never S moker eCW1 ([facility]) Smoking 02/18/2021 12:00:00 AM EDT Never Smoker completed Never S moker eCW1 ([facility]) Smoking 02/18/2021 12:00:00 AM EDT Never Smoker completed Never S moker eCW1 ([facility]) Smoking 02/18/2021 12:00:00 AM EDT Never Smoker completed Never S moker eCW1 ([facility]) Smoking 02/18/2021 12:00:00 AM EDT Never Smoker completed Never S moker eCW1 ([facility]) Smoking 02/10/2021 12:00:00 AM EDT Patient has never smoked co mpleted Patient has never smoked MEDENT ([facility]) Smoking 02/04/2021 12:00:00 AM EDT Never Smoker completed Never S moker eCW1 ([facility]) Smoking 02/04/2021 12:00:00 AM EDT Never Smoker completed Never S moker eCW1 ([facility]) Smoking 01/27/2021 12:00:00 AM EDT Never Smoker completed Never S moker eCW1 ([facility]) Smoking 01/27/2021 12:00:00 AM EDT Never Smoker completed Never S moker eCW1 ([facility]) Smoking 01/19/2021 12:00:00 AM EDT Never Smoker completed Never S moker eCW1 ([facility]) Smoking 12/15/2020 12:00:00 AM EST Never Smoker completed Never S moker eCW1 ([facility]) Smoking 12/15/2020 12:00:00 AM EST Never Smoker completed Never S moker eCW1 ([facility]) Smoking 12/15/2020 12:00:00 AM EST Never Smoker completed Never S moker eCW1 ([facility]) Smoking 12/15/2020 12:00:00 AM EST Never Smoker completed Never S moker eCW1 ([facility]) Smoking 11/17/2020 12:00:00 AM EST Never Smoker completed Never S moker eCW1 ([facility]) Smoking 11/17/2020 12:00:00 AM EST Never Smoker completed Never S moker eCW1 ([facility]) Smoking 10/22/2020 12:00:00 AM EST Never Smoker completed Never S moker eCW1 ([facility]) Smoking 10/22/2020 12:00:00 AM EST Never Smoker completed Never S moker eCW1 ([facility]) Smoking 10/22/2020 12:00:00 AM EST Never Smoker completed Never S moker eCW1 ([facility]) Caffeine Use Details 10/13/2020 12:00:00 AM EST completed soda, 1 cup [employer] ([facility]) Smoking 10/13/2020 12:00:00 AM EST Unknown if ever smoked comp leted Unknown if ever smoked [employer] ([facility]) Smoking 09/24/2020 12:00:00 AM EST Patient has never smoked co mpleted Patient has never smoked MEDENT ([facility], ) Smoking 09/22/2020 12:00:00 AM EST Never Smoker completed Never S moker eCW1 ([facility]) Smoking 09/22/2020 12:00:00 AM EST Never Smoker completed Never S moker eCW1 ([facility]) Smoking 09/22/2020 12:00:00 AM EST Never Smoker completed Never S moker eCW1 ([facility]) Smoking 08/11/2020 12:00:00 AM EDT Never Smoker completed Never S moker eCW1 ([facility]) Smoking 08/11/2020 12:00:00 AM EDT Never Smoker completed Never S moker eCW1 ([facility]) Smoking 08/11/2020 12:00:00 AM EDT Never Smoker completed Never S moker eCW1 ([facility]) Smoking 08/11/2020 12:00:00 AM EDT Never Smoker completed Never S moker eCW1 ([facility]) Smoking 08/11/2020 12:00:00 AM EDT Never Smoker completed Never S moker eCW1 ([facility]) Smoking 08/11/2020 12:00:00 AM EDT Never Smoker completed Never S moker eCW1 ([facility]) Smoking 08/11/2020 12:00:00 AM EDT Never Smoker completed Never S moker eCW1 ([facility]) Smoking 08/11/2020 12:00:00 AM EDT Never Smoker completed Never S moker eCW1 ([facility]) Smoking 08/11/2020 12:00:00 AM EDT Never Smoker completed Never S moker eCW1 ([facility]) Smoking 08/04/2020 12:00:00 AM EDT Never Smoker completed Never S moker eCW1 ([facility]) Smoking 08/04/2020 12:00:00 AM EDT Never Smoker completed Never S moker eCW1 ([facility]) Smoking 08/04/2020 12:00:00 AM EDT Never Smoker completed Never S moremedios eCW1 ([facility]) Vital Signs ID Date Data Source UNK Name Value Range Interpretation Code Description Data Source(s) Body weight 213.0 [lb_av] 213.0 [lb_av] eCW1 ([facility]) Body weight 96.62 kg 96.62 kg W1 ([facility]) Body height 65.5 [in_i] 65.5 [in_i] eCW1 ([facility]) Body mass index (BMI) [Ratio] 34.90 kg/m2 34.90 kg/m2 W1 ([facility]) Heart rate 59 /min 59 /min eCW1 ([facility]) Respiratory rate 18 /min 18 /min [facility]CW[facility] Body temperature 97.9 [degF] 97.9 [degF] eCW1 ( [facility]) Systolic blood pressure 122 mm[Hg] 122 mm[Hg] e CW1 ([facility]) Diastolic blood pressure 60 mm[Hg] 60 mm[Hg] eCW1 ([facility]) Systolic blood pressure 118 mm[Hg] 118 mm[Hg] M EDENT ([facility]) Diastolic blood pressure 70 mm[Hg] 70 mm[Hg] MEDENT ([facility]) Heart rate 63 /min 63 /min MEDENT ([facility]) Body temperature 97.5 [degF] 97.5 [degF] MEDENT ([facility]) Respiratory rate 16 /min 16 /min MEDENT ( [facility]) Oxygen saturation in Arterial blood by Pulse oximetry 100 % 100 % MEDENT ([facility]) Body weight 222 [lb_av] 222 [lb_av] eCW1 ([facility]) Body weight 100.7 kg 100.7 kg eCW1 ([facility]) Body height 65.5 [in_i] 65.5 [in_i] eCW1 ([facility]) Body mass index (BMI) [Ratio] 36.38 kg/m2 36.38 kg/m2 eCW1 ([facility]) Heart rate 62 /min 62 /min eCW1 ([facility]) Respiratory rate 18 /min 18 /min eCW1 [facility] Body temperature 97.8 [degF] 97.8 [degF] eCW1 ( [facility]) Systolic blood pressure 126 mm[Hg] 126 mm[Hg] e CW1 ([facility]) Diastolic blood pressure 66 mm[Hg] 66 mm[Hg] eCW1 ([facility]) Body weight 219 [lb_av] 219 [lb_av] eCW1 ([facility]) Body height 65.5 [in_i] 65.5 [in_i] eCW1 ([facility]) Body mass index (BMI) [Ratio] 35.89 kg/m2 35.89 kg/m2 eCW1 ([facility]) Heart rate 65 /min 65 /min eCW1 ([facility]) Respiratory rate 16 /min 16 /min eCW1 ([facility] Body temperature 98.0 [degF] 98.0 [degF] eCW1 ( [facility]) Systolic blood pressure 116 mm[Hg] 116 mm[Hg] e CW1 ([facility]) Diastolic blood pressure 55 mm[Hg] 55 mm[Hg] eCW1 ([facility]) Body weight 225 [lb_av] 225 [lb_av] eCW1 ([facility]) Body height 65.5 [in_i] 65.5 [in_i] eCW1 ([facility]) Body mass index (BMI) [Ratio] 36.87 kg/m2 36.87 kg/m2 eCW1 ([facility]) Heart rate 66 /min 66 /min eCW1 ([facility]) Respiratory rate 17 /min 17 /min eCW1 ([facility] Body temperature 98.5 [degF] 98.5 [degF] eCW1 ( [facility]) Systolic blood pressure 133 mm[Hg] 133 mm[Hg] e CW1 ([facility]) Diastolic blood pressure 64 mm[Hg] 64 mm[Hg] eCW1 ([facility]) Body weight 224 [lb_av] 224 [lb_av] eCW1 ([facility]) Respiratory rate 18 /min 18 /min eCW1 ([facility] Body temperature 97.8 [degF] 97.8 [degF] eCW1 ( [facility]) Systolic blood pressure 153 mm[Hg] 153 mm[Hg] e CW1 ([facility]) Diastolic blood pressure 69 mm[Hg] 69 mm[Hg] eCW1 ([facility]) Body height 65.5 [in_i] 65.5 [in_i] eCW1 ([facility]) Body mass index (BMI) [Ratio] 36.70 kg/m2 36.70 kg/m2 eCW1 ([facility]) Heart rate 68 /min 68 /min eCW1 ([facility]) Body weight 222.00 [lb_av] 222.00 [lb_av] LOLI T ([facility]) Body height 65 [in_i] 65 [in_i] MEDENT ([facility] 5'5" Body mass index (BMI) [Ratio] 36.9 kg/m2 36.9 k g/m2 MEDENT ([facility]) Heart rate 61 /min 61 /min MEDENT ([facility]) Systolic blood pressure--sitting 142 mm[Hg] 142 mm[Hg] MEDENT ([facility]) Ra, large cuff Diastolic blood pressure--sitting 78 mm[Hg] 78 mm[Hg] MEDENT ([facility]) Ra, large cuff Systolic blood pressure--supine 148 mm[Hg] 148 mm[Hg] MEDENT ([facility]) Ra, large cuff Diastolic blood pressure--supine 80 mm[Hg] 80 mm[Hg] MEDENT ([facility]) Ra, large cuff Systolic blood pressure--standing 138 mm[Hg] 13 8 mm[Hg] MEDENT ([facility]) Ra, large cuff Diastolic blood pressure--standing 78 mm[Hg] 7 8 mm[Hg] MEDENT ([facility]) Ra, large cuff Body weight 223 [lb_av] 223 [lb_av] eCW1 ([facility]) Body height 65.5 [in_i] 65.5 [in_i] eCW1 ([facility]) Body mass index (BMI) [Ratio] 36.54 kg/m2 36.54 kg/m2 eCW1 ([facility]) Heart rate 65 /min 65 /min eCW1 ([facility]) Respiratory rate 18 /min 18 /min eCW1 ([facility] Body temperature 97.9 [degF] 97.9 [degF] eCW1 ( [facility]) Systolic blood pressure 128 mm[Hg] 128 mm[Hg] e CW1 ([facility]) Diastolic blood pressure mm[Hg] eCW1 ([facility]) Systolic blood pressure 128 mm[Hg] 128 mm[Hg] M EDBLADE ([facility], ) Diastolic blood pressure 80 mm[Hg] 80 mm[Hg] [facility] ([facility], ) Heart rate 72 /min 72 /min [facility] ([facility], ) Oxygen saturation in Arterial blood by Pulse oximetry 97 % 97 % [facility] ([facility], ) Room Air Body height 66 [in_i] 66 [in_i] [facility] ([facility], ) 5'6" Body weight 214.00 [lb_av] 214.00 [lb_av] MEDEN T ([facility], ) Body mass index (BMI) [Ratio] 34.5 kg/m2 34.5 k g/m2 [facility] ([facility], ) [place] body weight 130 [lb_av] 130 [lb_av] MEDEN T ([facility], ) Body weight 97.070 kg 97.070 kg [facility] ([facility], ) Body weight 219 [lb_av] 219 [lb_av] eCW1 ([facility]) Body height 65.5 [in_i] 65.5 [in_i] eCW1 ([facility]) Body mass index (BMI) [Ratio] 35.89 kg/m2 35.89 kg/m2 eCW1 ([facility]) Heart rate 81 /min 81 /min eCW1 ([facility]) Respiratory rate 18 /min 18 /min eCW1 ([facility] Body temperature 96.3 [degF] 96.3 [degF] eCW1 ( [facility]) Systolic blood pressure 131 mm[Hg] 131 mm[Hg] e CW1 ([facility]) Diastolic blood pressure 62 mm[Hg] 62 mm[Hg] eCW1 ([facility]) Body weight 218 [lb_av] 218 [lb_av] eCW1 ([facility]) Heart rate 60 /min 60 /min eCW1 ([facility]) Body height 65.5 [in_i] 65.5 [in_i] eCW1 ([facility]) Body mass index (BMI) [Ratio] 35.72 kg/m2 35.72 kg/m2 eCW1 ([facility]) Respiratory rate 18 /min 18 /min eCW1 ([facility] Body temperature 97.6 [degF] 97.6 [degF] eCW1 ( [facility]) Systolic blood pressure 161 mm[Hg] 161 mm[Hg] e CW1 ([facility]) Diastolic blood pressure 72 mm[Hg] 72 mm[Hg] eCW1 ([facility]) Patient Treatment Plan of Care Planned Activity Planned Date Details Description Data Source (s) Lorazepam 1 MG Oral Tablet 06/15/2021 12:00:00 AM EDT eCW1 ([facility]) Mupirocin 20 MG/ML Topical Cream 05/04/2021 12:00:00 AM EDT eCW1 ([facility]) carbamide peroxide 65 MG/ML Otic Solution [Debrox] 05/04/2021 12 :00:00 AM EDT eCW1 ([facility]) Mupirocin 20 MG/ML Topical Cream 05/04/2021 12:00:00 AM EDT eCW1 ([facility]) carbamide peroxide 65 MG/ML Otic Solution [Debrox] 05/04/2021 12 :00:00 AM EDT eCW1 ([facility]) Escitalopram 5 MG Oral Tablet [Lexapro] 03/26/2021 12:00:00 AM EDT eCW1 ([facility]) Escitalopram 5 MG Oral Tablet [Lexapro] 03/26/2021 12:00:00 AM EDT eCW1 ([facility]) Escitalopram 5 MG Oral Tablet [Lexapro] 03/26/2021 12:00:00 AM EDT eCW1 ([facility]) Escitalopram 5 MG Oral Tablet [Lexapro] 12/15/2020 12:00:00 AM EST eCW1 ([facility]) Escitalopram 5 MG Oral Tablet [Lexapro] 12/15/2020 12:00:00 AM EST eCW1 ([facility]) Escitalopram 5 MG Oral Tablet [Lexapro] 12/15/2020 12:00:00 AM EST eCW1 ([facility]) Escitalopram 5 MG Oral Tablet [Lexapro] 12/15/2020 12:00:00 AM EST eCW1 ([facility]) Escitalopram 5 MG Oral Tablet [Lexapro] 12/15/2020 12:00:00 AM EST eCW1 ([facility]) Escitalopram 5 MG Oral Tablet [Lexapro] 12/15/2020 12:00:00 AM EST eCW1 ([facility]) Escitalopram 5 MG Oral Tablet [Lexapro] 12/15/2020 12:00:00 AM EST eCW1 ([facility]) Escitalopram 5 MG Oral Tablet [Lexapro] 12/15/2020 12:00:00 AM EST eCW1 ([facility]) Escitalopram 5 MG Oral Tablet [Lexapro] 12/15/2020 12:00:00 AM EST eCW1 ([facility]) Escitalopram 5 MG Oral Tablet [Lexapro] 12/15/2020 12:00:00 AM EST eCW1 ([facility]) Cephalexin 500 MG Oral Capsule [Keflex] 09/22/2020 12:00:00 AM EST eCW1 ([facility]) Cephalexin 500 MG Oral Capsule [Keflex] 09/22/2020 12:00:00 AM EST eCW1 ([facility]) Cephalexin 500 MG Oral Capsule [Keflex] 09/22/2020 12:00:00 AM EST eCW1 ([facility]) Ondansetron 4 MG Disintegrating Oral Tablet 08/18/2020 12:00:00 AM EDT eCW1 ([facility]) Ondansetron 4 MG Disintegrating Oral Tablet 08/18/2020 12:00:00 AM EDT eCW1 ([facility]) Ondansetron 4 MG Disintegrating Oral Tablet 08/18/2020 12:00:00 AM EDT eCW1 ([facility]) Ondansetron 4 MG Disintegrating Oral Tablet 08/18/2020 12:00:00 AM EDT eCW1 ([facility]) Ondansetron 4 MG Disintegrating Oral Tablet 08/18/2020 12:00:00 AM EDT eCW1 ([facility]) Ondansetron 4 MG Disintegrating Oral Tablet 08/18/2020 12:00:00 AM EDT eCW1 ([facility]) Ondansetron 4 MG Disintegrating Oral Tablet 08/18/2020 12:00:00 AM EDT eCW1 ([facility]) Ondansetron 4 MG Disintegrating Oral Tablet 08/18/2020 12:00:00 AM EDT eCW1 ([facility]) Ondansetron 4 MG Disintegrating Oral Tablet 08/18/2020 12:00:00 AM EDT eCW1 ([facility])
[2021-08-24 20:26] LABS: BLOOD UREA NITROGEN 45 MG/DL (7-18); CALCIUM LEVEL 9.3 MG/DL (8.8-10.2); CARBON DIOXIDE LEVEL 24 MEQ/L (21-32); CHLORIDE LEVEL 102 MEQ/L (98-107); CK-MB VALUE MASS < 1.0 NG/ML (<3.6); CPK CREATINE PHOSPHOKINASE 53 U/L (26-192); CREATININE FOR GFR 2.61 MG/DL (0.55-1.30); GLOMERULAR FILTRATION RATE 19.6 (>45); GLUCOSE, FASTING 152 MG/DL (70-100); MB/CK RELATIVE INDEX 1.89 (< OR =4); POTASSIUM SERUM 4.3 MEQ/L (3.5-5.1); SODIUM LEVEL 134 MEQ/L (136-145); TROPONIN I < 0.02 NG/ML (< 0.10)
--- NOTE | 2021-08-24 20:30 | REP ---
INDICATION: CHEST PAIN. COMPARISON: 03/14/2021 TECHNIQUE: Portable FINDINGS: The technique utilized in obtaining the radiograph has magnified the cardiac silhouette and accentuated the interstitial markings. The cardiomediastinal silhouette is unchanged. There is mild cardiomegaly accentuated by technique. The tip of the MediPort device is in the superior vena cava unchanged. Lung gerardo are clear and unchanged. No acute patchy parenchymal opacities or pleural effusions have developed. The pleural angles remain sharp. There is no change in the osseous structures. IMPRESSION: Stable chest. There is no evidence of acute cardiopulmonary disease. <Electronically signed by Luther Tsai > 08/24/212025
[2021-08-24] MEDS ORDERED: METHOCARBAMOL 1,000 MG/10 ML VIAL (J2800) IV ONE (21:25)
[2021-08-24 23:15] VITALS: BP 133/74
[2021-08-24] MEDS ORDERED: TORS5TAB2 PO (23:43)
[2021-08-24] MEDS ORDERED: LABE300T2 PO (23:43)
[2021-08-24] MEDS ORDERED: METH-1165 PO (23:51)
--- NOTE | 2021-08-25 13:37 | ECGEPIP ---
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
== END 2021-08-25 00:22 | disposition home or self-care (01) ==
LOC: M ED 18:58
DX: S29.011A Strain of muscle and tendon of front wall of thorax, initial encounter (principal); S16.1XXA Strain of muscle, fascia and tendon at neck level, initial encounter; X58.XXXA Exposure to other specified factors, initial encounter; Y92.89 Other specified places as the place of occurrence of the external cause; I10 Essential (primary) hypertension; E11.9 Type 2 diabetes mellitus without complications; E78.5 Hyperlipidemia, unspecified; I48.91 Unspecified atrial fibrillation; M32.9 Systemic lupus erythematosus, unspecified; M79.7 Fibromyalgia; Z94.84 Stem cells transplant status; Z88.0 Allergy status to penicillin; Z88.1 Allergy status to other antibiotic agents; Z88.8 Allergy status to other drugs, medicaments and biological substances; Z91.018 Allergy to other foods; Z91.041 Radiographic dye allergy status; Z91.048 Other nonmedicinal substance allergy status; Z79.899 Other long term (current) drug therapy; Z79.82 Long term (current) use of aspirin; Z79.4 Long term (current) use of insulin
CPT/HCPCS: 71045; 80048; 82550; 82553; 84484; 85025; 93005; 93041; 94760; 96374; 99285; J2800

== ENCOUNTER 2021-08-30 11:21 | Inpatient (IN) | payer MEDICARE, OTHER ==
[~2021-08-30] VITALS: Ht 165.1 cm; Wt 99.6 kg
[~2021-08-30 11:21] MED LIST changes: +LABE300T2 PO; -LORA1TAB4; +LORA1TAB4 PO; +METH-1165 PO; +TORS5TAB2 PO
--- OUTSIDE RECORDS SUMMARY | 2021-08-30 11:32 | CCD ---
Author Author [facility] 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 [facility] Address Unknown Phone Unavailable Care Team Providers [employer] Name Role Phone Rosendo Pelayo MD Unavailable [...] WEDOW, AILEEN Unavailable Unavailable BUMBANAC, A STAR EQUALIZING SAW OPERATOR Unavailable Unavailable BUMBANAC, A STAR EQUALIZING SAW OPERATOR Unavailable Unavailable BUMBANAC, A STAR EQUALIZING SAW OPERATOR Unavailable Unavailable BUMBANAC, A STAR EQUALIZING SAW OPERATOR Unavailable Unavailable BUMBANAC, A STAR EQUALIZING SAW OPERATOR Unavailable Unavailable BUMBANAC, A STAR EQUALIZING SAW OPERATOR Unavailable Unavailable BUMBANAC, A STAR EQUALIZING SAW OPERATOR Unavailable Unavailable BUMBANAC, A STAR EQUALIZING SAW OPERATOR Unavailable Unavailable BUMBANAC, A STAR EQUALIZING SAW OPERATOR Unavailable Unavailable BUMBANAC, A STAR EQUALIZING SAW OPERATOR Unavailable Unavailable BUMBANAC, A STAR EQUALIZING SAW OPERATOR Unavailable Unavailable BUMBANAC, A STAR EQUALIZING SAW OPERATOR Unavailable Unavailable BUMBANAC, A STAR EQUALIZING SAW OPERATOR Unavailable Unavailable BUMBANAC, A STAR EQUALIZING SAW OPERATOR Unavailable Unavailable BUMBANAC, A STAR EQUALIZING SAW OPERATOR Unavailable Unavailable BUMBANAC, A STAR EQUALIZING SAW OPERATOR Unavailable Unavailable BUMBANAC, A STAR EQUALIZING SAW OPERATOR Unavailable Unavailable BUMBANAC, A STAR EQUALIZING SAW OPERATOR Unavailable Unavailable BUMBANAC, A STAR EQUALIZING SAW OPERATOR Unavailable Unavailable BUMBANAC, A STAR EQUALIZING SAW OPERATOR Unavailable Unavailable BUMBANAC, A STAR EQUALIZING SAW OPERATOR Unavailable Unavailable BUMBANAC, A STAR EQUALIZING SAW OPERATOR Unavailable Unavailable BUMBANAC, A STAR EQUALIZING SAW OPERATOR Unavailable Unavailable BUMBANAC, A STAR EQUALIZING SAW OPERATOR Unavailable Unavailable BUMBANAC, A STAR EQUALIZING SAW OPERATOR Unavailable Unavailable BUMBANAC, A STAR EQUALIZING SAW OPERATOR Unavailable Unavailable BUMBANAC, A STAR EQUALIZING SAW OPERATOR Unavailable Unavailable BUMBANAC, A STAR EQUALIZING SAW OPERATOR Unavailable Unavailable BUMBANAC, A STAR EQUALIZING SAW OPERATOR Unavailable Unavailable BUMBANAC, A STAR EQUALIZING SAW OPERATOR Unavailable Unavailable BUMBANAC, A STAR EQUALIZING SAW OPERATOR Unavailable Unavailable SARAH GRADY MD Unavailable Unavailable SARAH GRADY MD Unavailable Unavailable SARAH GRADY MD Unavailable Unavailable SARAH GRADY MD Unavailable Unavailable SARAH GRADY MD Unavailable Unavailable SARAH GRADY MD Unavailable Unavailable SARAH GRADY MD Unavailable Unavailable SARAH GRADY MD Unavailable Unavailable SARAH GRADY MD Unavailable Unavailable SARAH GRADY MD Unavailable Unavailable SARAH GRADY MD Unavailable Unavailable SARAH GRADY MD Unavailable Unavailable SARAH GRADY MD Unavailable Unavailable SARAH GRADY MD Unavailable Unavailable SARAH GRADY MD Unavailable Unavailable SARAH GRADY MD Unavailable Unavailable SARAH GRADY MD Unavailable Unavailable SARAH GRADY MD Unavailable Unavailable SARAH GRADY MD Unavailable Unavailable SARAH GRADY MD Unavailable Unavailable SARAH GRADY MD Unavailable Unavailable SARAH GRADY MD Unavailable Unavailable SARAH GRADY MD Unavailable Unavailable SARAH GRADY MD Unavailable Unavailable SARAH GRADY MD Unavailable Unavailable SARAH GRADY MD Unavailable Unavailable SARAH GRADY MD Unavailable Unavailable SARAH GRADY MD Unavailable Unavailable STOROZYNSKY, SARAH HERNANDEZ Unavailable Unavailable STOROZYNSKY, SARAH HERNANDEZ Unavailable Unavailable STOROZYNSKY, SARAH HERNANDEZ Unavailable Unavailable STOROZYNSKY, SARAH HERNANDEZ Unavailable Unavailable STOROZYNSKY, SARAH HERNANDEZ Unavailable Unavailable STOROZYNSKY, SARAH HERNANDEZ Unavailable Unavailable STOROZYNSKY, SARAH HERNANDEZ Unavailable Unavailable STOROZYNSKY, SARAH HERNANDEZ Unavailable Unavailable STOROZYNSKY, SARAH HERNANDEZ Unavailable Unavailable STOROZYNSKY, SARAH HERNANDEZ Unavailable Unavailable STOROZYNSKY, SARAH HERNANDEZ Unavailable Unavailable STOROZYNSKY, SARAH HERNANDEZ Unavailable Unavailable STOROZYNSKY, SARAH HERNANDEZ Unavailable Unavailable Hernandez, Pablo Unavailable Hernandez, Pablo Unavailable Hernandez, Pablo Unavailable Hernandez, Pablo Unavailable Hernandez, Pablo Unavailable Hernandez, Pablo Unavailable Hernadnez, Pablo Unavailable Hernandez, Pablo Unavailable Hernandez, Pablo Unavailable Hernandez, Pablo Unavailable Hernandez, Pablo Unavailable Hernandez, Pablo Unavailable Hernandez, Pablo Unavailable Hernandez, Pablo Unavailable Hernandez, Pablo Unavailable Hernandez, Pablo Unavailable Hernandez, Pablo Unavailable Hernandez, Pablo Unavailable Hernandez, Pablo Unavailable Hernandez, Pablo Unavailable Hernandez, Pablo Unavailable Hernandez, Pablo Unavailable Hernandez, Pablo Unavailable Hernandez, Pablo Unavailable Hernandez, Pablo Unavailable Hernandez, Pablo Unavailable Pablo Hernandez Unavailable Pablo Hernandez Unavailable + Pablo Hernandez Unavailable MtanoBlaine kumar MD Unavailable Unavailable MtanosBlaine MD Unavailable Unavailable MtanosBlaine MD Unavailable Unavailable MtanosBlaine MD Unavailable Unavailable MtanosBlaine MD Unavailable Unavailable MtanosBlaine MD Unavailable Unavailable MtanosBlaine MD Unavailable Unavailable MtanosBlaine MD Unavailable Unavailable MtanosBlaine MD Unavailable Unavailable MtanosBlaine MD Unavailable Unavailable MtanosBlaine MD Unavailable Unavailable MtanosBlaine MD Unavailable Unavailable MtanosBlanie MD Unavailable Unavailable MtanosBlaine MD Unavailable Unavailable [...] Unavailable Unavailable MtanosBlaine MD Unavailable Unavailable Starr OROSCO Unavailable Unavailable AMANDEEP, L DAVID PA Unavailable [...] DAVID PA Unavailable Unavailable Hernandez, M Maik EQUALIZING SAW OPERATOR Unavailable Unavailable Hernandez, M Maik EQUALIZING SAW OPERATOR Unavailable Unavailable Hernandez, M Maik EQUALIZING SAW OPERATOR Unavailable Unavailable Hernandez, M Maik EQUALIZING SAW OPERATOR Unavailable Unavailable Hernandez, M Maik EQUALIZING SAW OPERATOR Unavailable Unavailable Hernandez, M Maik EQUALIZING SAW OPERATOR Unavailable Unavailable HERNANDEZ, W PABLO Unavailable Unavailable [...] is protected by Article 27-F of the [facility] Public Health law. If you continue you may have access to information: Regarding HIV / AIDS; Provided by facilities licensed or operated by the [facility] Office of Mental Health; or Provided by the [facility] Office for People With Developmental Disabilities. If such information is present, then the following [facility] mandated warning applies: This information has [...] law may result in a fine or halfway sentence or both. A general authorization for the release of medical or other information is NOT sufficient authorization for further disc losure. Allergies and Adverse Reactions Type Description Substance Reaction Status Data Source(s ) Propensity to adverse reactions COMPAZINE PO TAB 10 MG COMPAZINE PO TAB 10 MG [facility] Propensity to adverse reactions DEMEROL DEMEROL [facility] Propensity to adverse reactions PCN (penicillin) PCN (penicillin) [facility] Family History Family Member Name Family Member Gender Family Member Status Date o f Status Description Data Source(s) Unknown Male Problem (finding) 10/17/2014 12:00:00 AM EST NextGen ([facility]) Unknown Male Problem (finding) 10/17/2014 12:00:00 AM EST NextGen ([facility]) Unknown Male Problem MEDENT ([facility] () Unknown Unknown Problem MED[facility] ([facility]) Unknown Female Problem MEDENT ([facility]) Unknown Female Problem MEDENT ([facility]) Unknown Female Problem MEDENT ([facility]) Unknown Female Problem MEDENT ([facility]) Unknown Female Problem MEDENT ([facility]) Encounters Encounter Providers Location Date Indications Data Source(s ) Referrer: SARAH GRADY MD 08/25/2021 08:2 1:10 PM EDT [facility] 08/25/2021 08:21:10 PM EDT [facility] 08/25/2021 08:21:10 PM EDT [facility] Outpatient [address] [facility], [facility] [address] 08/11/2021 12:00:00 AM EDT eCW1 ([facility]) Outpatient Attender: LUZ ELENA EDDYReferrer: Pablo Hernandez EMERGENCY ROOM-LAB REFOTH 08/02/2021 11:33:00 AM EDT - 08/02/2021 11:33:00 AM EDT [facility] Unknown [address] [facility], [facility] [address] 06/15/2021 12:00:00 AM EDT eCW1 ([facility]) Outpatient Attender: LUDIN MIGUEL NPConsultant: SHASHANK COUCH 05/31/2021 03:28:00 PM EDT - 05/31/2021 03:28:00 PM EDT [facility] Unknown [address] [facility] [place] [address] 05/31/2021 12:00:00 AM EDT eCW1 ([facility]) Outpatient Attender: Maik Hernandez NPConsultant: SHASHANK SÁNCHEZ PA 05/16/2021 10:55:00 AM EDT - 05/16/2021 11:05:00 AM EDT [facility] Outpatient [address] [facility] [address] 05/11/2021 12:00:00 AM EDT eCW1 ([facility]) Outpatient Attender: Maik Hernandez NPConsultant: SHASHANK SÁNCHEZ PA 05/04/2021 01:00:00 PM EDT - 05/04/2021 01:10:00 PM EDT [facility] Unknown [address] [facility] [address] 05/04/2021 12:00:00 AM EDT eCW1 ([facility]) Outpatient [address] [facility] [address] 05/04/2021 12:00:00 AM EDT eCW1 ([facility]) Unknown [address] [facility] [address] 05/04/2021 12:00:00 AM EDT eCW1 ([facility]) Unknown [address] [facility] [place] [address] 04/21/2021 12:00:00 AM EDT eCW1 ([facility]) Unknown [address] [facility] [address] 04/13/2021 12:00:00 AM EDT eCW1 ([facility]) Unknown [address] [facility] [address] 04/09/2021 12:00:00 AM EDT eCW1 ([facility]) Unknown [address] [facility] [address] 04/06/2021 12:00:00 AM EDT eCW1 ([facility]) Outpatient Attender: PABLO Mendoza: PABLO HERNANDEZ 04/05/2021 12:00:00 AM EDT - 04/06/2021 12:00:00 AM EDT Bone marrow transplant status [facility] Bone marrow transplant status Outpatient [address] [facility] [address] 04/01/2021 12:00:00 AM EDT eCW1 ([facility]) Unknown [address] [facility], [place] [address] 03/29/2021 12:00:00 AM EDT eCW1 ([facility]) [facility] Pt. Level 3 [address] [place] [address] 03/25/2021 12:00:00 AM EDT eCW1 ([facility]) Unknown [address] [facility] [place] [address] 2021 12:00:00 AM EDT eCW1 ([facility]) Unknown [address] [facility], [place] [address] 03/08/2021 12:00:00 AM EDT eCW1 ([facility]) (TV_Virtual) [facility] [address] [place] [address] 03/04/2021 12:00:00 AM EDT eCW1 ([facility]) Unknown [address] [facility] [place] [address] 03/02/2021 12:00:00 AM EDT eCW1 ([facility]) Unknown [address] [facility] [place] [address] 02/22/2021 12:00:00 AM EDT eCW1 ([facility]) Unknown [address] [facility] [place] [address] 02/21/2021 12:00:00 AM EDT eCW1 ([facility]) Unknown [address] [facility] [address] 02/18/2021 12:00:00 AM EDT eCW1 ([facility]) Outpatient [address] [facility] [address] 02/18/2021 12:00:00 AM EDT eCW1 ([facility]) Unknown [address] [facility] [place] [address] 02/18/2021 12:00:00 AM EDT eCW1 ([facility]) Unknown [address] [facility] [address] 02/15/2021 12:00:00 AM EDT eCW1 ([facility]) Outpatient Attender: DAVID COUCH Main Office 02/10/2021 1 0:15:00 AM EDT MEDENT ([facility]) Outpatient [address] [facility] [place] [address] 02/04/2021 12:00:00 AM EDT eCW1 ([facility]) Unknown [address] [facility] [place] [address] 01/27/2021 12:00:00 AM EDT eCW1 ([facility]) Unknown [address] [facility] [place] [address] 01/27/2021 12:00:00 AM EDT eCW1 ([facility]) Unknown [address] [facility] [place] [address] 01/19/2021 12:00:00 AM EDT eCW1 ([facility]) Unknown [address] [facility] [place] [address] 01/10/2021 12:00:00 AM EST eCW1 ([facility]) Unknown [address] [facility] [address] 01/10/2021 12:00:00 AM EST eCW1 ([facility]) Unknown [address] [facility] [address] 12/23/2020 12:00:00 AM EST eCW1 ([facility]) [facility] Pt. Level 4 [address] [place] [address] 12/15/2020 12:00:00 AM EST [facility]CW1 ([facility]) Unknown [address] [facility] [address] 12/07/2020 12:00:00 AM EST eCW1 ([facility]) TeleMedicine Est. Pt. Level 4 [address] [place] [address] 11/17/2020 12:00:00 AM EST eCW1 ([facility]) Unknown [address] [facility] [address] 11/10/2020 12:00:00 AM EST eCW1 ([facility]) Unknown [address] [facility] [place] [address] 10/26/2020 12:00:00 AM EST eCW1 ([facility]) TeleMedicine Est. Pt. Level 3 [address] [place] [address] 10/22/2020 12:00:00 AM EST eCW1 ([facility]) Attender: Blaine Damon MD [facility] 10/13/2020 12:58:00 PM EST - 10/13/2020 12:58:00 PM EST NextGen ( [facility]) Outpatient Attender: AILEEN KOCHReferrer: AILEEN KOCH Avionics System Engineer: SHASHANK COUCH 10/05/2020 12:00:00 PM EST - 10/05/2020 12:10:00 PM [facility] Outpatient Attender: PABLO Lightultant: SHASHANK COUCH 10/05/2020 11:59:00 AM EST - 10/05/2020 12:09:00 PM [facility] Unknown [address] [facility] [address] 10/05/2020 12:00:00 AM EST eCW1 ([facility]) Outpatient [address] [facility] [place] [address] 09/22/2020 12:00:00 AM EST eCW1 ([facility]) Unknown [address] [facility] [place] [address] 09/21/2020 12:00:00 AM EST eCW1 ([facility]) Unknown [address] [facility] [place] [address] 09/16/2020 12:00:00 AM EST eCW1 ([facility]) Outpatient Attender: VAUGHN Masoner: Norberto sutton MD 09/05/2020 12:00:00 AM EDT - 09/06/2020 12:00:00 AM EDT [facility] Unknown [address] [facility] [address] 09/04/2020 12:00:00 AM EDT eCW1 ([facility]) Outpatient Attender: AILEEN KOCHConsultant: SHASHANK COUCH 08/31/2020 12:30:00 PM EDT - 08/31/2020 12:40:00 PM EDT [facility] Outpatient Attender: PABLO Lightultant: SHASHANK COUCH 08/31/2020 12:28:00 PM EDT - 08/31/2020 12:38:00 PM EDT [facility] Unknown [address] [facility] [place] [address] 08/31/2020 12:00:00 AM EDT eCW1 ([facility]) Unknown [address] [facility] [place] [address] 08/25/2020 12:00:00 AM EDT eCW1 ([facility]) Unknown [address] [facility] [place] [address] 08/24/2020 12:00:00 AM EDT eCW1 ([facility]) Unknown [address] [facility] [place] [address] 08/24/2020 12:00:00 AM EDT eCW1 ([facility]) Unknown [address] [facility], [place] [address] 08/24/2020 12:00:00 AM EDT eCW1 ([facility]) Outpatient Attender: JORGE OROSCOReferrer: Norberto elizondo MD [id number] 08/18/2020 12:00:00 AM EDT - 08/19/2020 12:00:00 AM T [facility] Outpatient 08/15/2020 12:00:00 AM EDT [facility] Unknown [address] [facility] [address] 08/12/2020 12:00:00 AM EDT eCW1 ([facility]) Outpatient [address] [facility] [place] [address] 08/11/2020 12:00:00 AM EDT eCW1 ([facility]) Unknown [address] [facility] [place] [address] 08/06/2020 12:00:00 AM EDT eCW1 ([facility]) Unknown [address] [facility] [address] 08/04/2020 12:00:00 AM EDT eCW1 ([facility]) Unknown [address] [facility] [address] 07/28/2020 12:00:00 AM EDT eCW1 ([facility]) Outpatient Attender: AILEEN KOCHConsultant: SHASHANK COUCH 07/07/2020 10:49:00 AM EDT - 07/07/2020 10:59:00 AM EDT [facility] Outpatient Attender: PABLO Lightultant: SHASHANK COUCH 07/07/2020 10:46:00 AM EDT - 07/07/2020 10:56:00 AM EDT [facility] Immunizations Vaccine Date Status Description Data Source(s) COVID-19 VACC,MRNA(MODERNA)/PF 07/23/2021 12:00:00 AM EDT completed [facility] COVID-19 VACCINE Moderna 07/23/2021 12:00:00 AM EDT completed [facility] Vaccine Series Complete: YESThis Data wa s Submitted to [facility] Via [employer]. COVID-19 VACCINE Moderna 02/01/2021 12:00:00 AM EDT completed [facility] Vaccine Series Complete: YESThis Data wa s Submitted to [facility] [employer]. COVID-19 VACCINE Moderna 01/04/2021 12:00:00 AM EST completed [facility] Vaccine Series Complete: NOThis Data was Submitted to [facility] [employer]. Medications Medication Brand Name Start Date Product Form Dose Route Admi nistrative Instructions Pharmacy Instructions Status Indications Reaction Description Data Source(s) 750 mg 08/25/2021 12:00:00 AM EDT tablet 90 TAKE ONE TABLET BY MOUTH THREE TIMES A DAY TAKE ONE TABLET BY MOUTH THREE TIMES A DAY SOLD: 08/25/2021 [facility] 50 mg 08/10/2021 12:00:00 AM EDT tablet 60 TAKE ONE TABLET BY MOUTH TWICE A DAY TAKE ONE TABLET BY MOUTH TWICE A DAY SOLD: 08/10/2021 [facility] Lorazepam 1 MG Oral Tablet Lorazepam 1 MG 08/10/2021 12:00:00 AM EDT active Lorazepam 1 MG eCW1 ([facility]) 1 mg 08/10/2021 12:00:00 AM [...] MOUTH THREE TIMES A WEEK SOLD: 07/29/2021 [facility] 800-160 mg 07/28/2021 12:00:00 AM EDT tablet 12 TAKE ONE TABLET BY MOUTH THREE TIMES A WEEK TAKE ONE TABLET BY MOUTH THREE TIMES A WEEK SOLD: 08/22/2021 [facility] 0.5 mg/5 mL 07/22/2021 12:00:00 AM EDT solution 600 TAKE 5ML BY MOUTH FOUR TIMES A DAY TAKE 5ML BY MOUTH FOUR TIMES A DAY SOLD: 07/23/2021 [facility] Acyclovir 400 MG Oral Tablet ACYCLOVIR 07/20/2021 12:00:00 AM EDT tabl et 60 TAKE ONE TABLET BY MOUTH TWO TIMES A DAY TAKE ONE TABLET BY MOUTH TWO TIMES A DAY SOLD: 08/15/2021 [facility] Acyclovir 400 MG Oral [...] active Lorazepam 1 MG eCW1 ([facility]) Acetaminophen 325 MG / Hydrocodone [...] TABLET BY MOUTH EVERY EVENING SOLD: 05/20/2021 [facility] 200 mg 05/20/2021 12:00:00 AM EDT [...] active Debrox 6.5 % eCW1 ([facility]) Mupirocin 20 MG/ML Topical Cream Mupirocin Calcium 2 % Mupir ocin Calcium 2 % 05/04/2021 12:00:00 AM EDT 1.0 {application} act fany Mupirocin Calcium 2 % eCW1 ([facility]) Mupirocin 20 MG/ML Topical Cream Mupirocin Calcium 2 % Mupir ocin Calcium 2 % 05/04/2021 12:00:00 AM EDT 1.0 {application} act fany Mupirocin Calcium 2 % eCW1 ([facility]) Mupirocin 20 MG/ML Topical Cream Mupirocin Calcium 2 % Mupir ocin Calcium 2 % 05/04/2021 12:00:00 AM EDT 1.0 {application} act fany Mupirocin Calcium 2 % eCW1 ([facility]) Mupirocin 20 MG/ML Topical Cream Mupirocin Calcium 2 % Mupir ocin Calcium 2 % 05/04/2021 12:00:00 AM EDT 1.0 {application} act fany Mupirocin Calcium 2 % eCW1 ([facility]) carbamide peroxide 65 MG/ML Otic Solution [Debrox] Debrox 6. 5 % Debrox 6.5 % 05/04/2021 12:00:00 AM EDT 5.0 {drops_into_affected_ear} active Debrox 6.5 % eCW1 ([facility]) Mupirocin 20 MG/ML Topical Cream Mupirocin Calcium 2 % Mupir ocin Calcium 2 % 05/04/2021 12:00:00 AM EDT 1.0 {application} active eCW1 ([facility]) carbamide peroxide 65 MG/ML Otic Solution [Debrox] Debrox 6. 5 % Debrox 6.5 % 05/04/2021 12:00:00 AM EDT 5.0 {drops_into_affected_ear} active Debrox 6.5 % eCW1 ([facility]) carbamide peroxide 65 MG/ML Otic Solution [Debrox] Debrox 6. 5 % Debrox 6.5 % 05/04/2021 12:00:00 AM EDT 5.0 {drops_into_affected_ear} active Debrox 6.5 % eCW1 ([facility]) Mupirocin 20 MG/ML Topical Cream Mupirocin Calcium 2 % Mupir ocin Calcium 2 % 05/04/2021 12:00:00 AM EDT 1.0 {application} act fany Mupirocin Calcium 2 % eCW1 ([facility]) carbamide peroxide 65 MG/ML Otic Solution [Debrox] Debrox 6. 5 % Debrox 6.5 % 05/04/2021 12:00:00 AM EDT 5.0 {drops_into_affected_ear} active Debrox 6.5 % eCW1 ([facility]) carbamide peroxide 65 MG/ML Otic Solution [Debrox] Debrox 6. 5 % Debrox 6.5 % 05/04/2021 12:00:00 AM EDT 5.0 {drops_into_affected_ear} active Debrox 6.5 % eCW1 ([facility]) carbamide peroxide 65 MG/ML Otic Solution [Debrox] Debrox 6. 5 % Debrox 6.5 % 05/04/2021 12:00:00 AM EDT 5.0 {drops_into_affected_ear} active eCW1 ([facility]) Mupirocin 20 MG/ML Topical Cream Mupirocin Calcium 2 % Mupir ocin Calcium 2 % 05/04/2021 12:00:00 AM EDT 1.0 {application} act fany Mupirocin Calcium 2 % eCW1 ([facility]) 10 mg 04/28/2021 12:00:00 AM EDT tablet 30 TAKE ONE TABLET BY MOUTH EVERY DAY TAKE ONE TABLET BY MOUTH EVERY DAY SOLD: 05/01/2021 [facility] 10 mg 04/28/2021 12:00:00 AM EDT [...] DOSE = 42 UNITS SOLD: 04/24/2021 [facility] 100 unit/mL 04/24/2021 12:00:00 AM EDT insulin pen 15 INJECT THREE TIMES A DAY BEFORE MEALS NEEDED PER NEW SLIDING SCALE MAXIMUM DAILY DOSE = 42 UNITS INJECT THREE TIMES A DAY BEFORE MEALS NEEDED PER NEW SLIDING SCALE MAXIMUM DAILY DOSE = 42 UNITS SOLD: 07/15/2021 [facility] Acyclovir 400 MG Oral Tablet ACYCLOVIR 04/19/2021 12:00:00 AM EDT tabl et 60 TAKE ONE TABLET BY MOUTH TWICE A DAY TAKE ONE TABLET BY MOUTH TWICE A DAY SOLD: 06/20/2021 [facility] Acyclovir 400 MG Oral Tablet [...] DAILY DOSE = TWO TABLETS SOLD: 04/13/2021 [facility] Hydroxychloroquine Sulfate 200 MG Oral [...] TABLET BY MOUTH EVERY DAY SOLD: 08/05/2021 [facility] 5 mg 03/30/2021 12:00:00 AM EDT [...] ONE TABLET BY MOUTH EVERY DAY SOLD: 08/26/2021 [facility] 5 mg 03/30/2021 12:00:00 AM [...] Le xapro 5 MG eCW1 ([facility]) Escitalopram 5 MG Oral Tablet [Lexapro] Lexapro 5 MG Lexapro 5 MG 03/26/2021 12:00:00 AM EDT 1.0 {tablet} active eCW1 ([facility]) 0.125 mg 03/26/2021 12:00:00 AM EDT tablet 90 TAKE THREE TABLETS BY MOUTH EVERY NIGHT TAKE THREE TABLETS BY MOUTH EVERY NIGHT SOLD: 07/20/2021 [facility] Escitalopram 5 MG Oral Tablet [Lexapro] Lexapro 5 MG Lexapro 5 MG 03/26/2021 12:00:00 AM EDT 1.0 {tablet} active Le xapro 5 MG eCW1 ([facility]) 0.125 mg 03/26/2021 12:00:00 AM [...] :00 AM EDT ORAL active [facility] ([facility]) Cholecalciferol 2000 UNT Oral Tablet Vitamin D3 02/09/2021 12:00:00 A M EDT ORAL active [facility] ([facility]) ferrous gluconate 256 MG Oral Tablet Iron (Ferrous Gluconate ) 02/09/2021 12:00:00 AM EDT ORAL active M EDENT ([facility]) Acyclovir 400 MG Oral Tablet Acyclovir 02/09/2021 12:00:00 AM EDT ORAL active [facility] ([facility]) Labetalol hydrochloride 100 MG Oral Tablet Labetalol HCL 02/09/2021 12:00:00 AM EDT ORAL active [facility] ([facility]) Amlodipine 5 MG Oral Tablet Amlodipine Besylate 02/09/2021 12:00:00 A M EDT ORAL active [facility] ([facility]) Prednisone 5 MG Oral Tablet Prednisone 02/09/2021 12:00:00 AM EDT ORAL active [facility] ([facility]) 24 HR Oxybutynin chloride 15 MG Extended Release Oral Tablet Oxybutynin Chloride ER 02/09/2021 12:00:00 AM EDT ORAL active [facility] ([facility]) 24 HR Diltiazem Hydrochloride 120 MG Extended Release Oral C apsule Diltiazem CD 02/09/2021 12:00:00 AM EDT ORAL active [facility] ([facility]) Aspirin 81 MG Delayed Release Oral Tablet Aspirin 81 2020 12:00:00 AM EDT ORAL active [facility] ( [facility]) Admelog Solostar Admelog Solostar 02/09/2021 12:00:00 AM EDT active [facility] ([facility]) repaglinide 2 MG Oral Tablet Repaglinide 02/09/2021 12:00:00 AM EDT ORAL active [facility] ([facility]) Clotrimazole 10 MG/ML Topical Cream Clotrimazole 02/09/2021 12:00:00 AM EDT active [facility] ([facility]) 60 ACTUAT Budesonide 0.16 MG/ACTUAT / fo rmoterol fumarate 0.0045 MG/ACTUAT Metered Dose Inhaler Budesonide/Formoterol Fumarate Dihydrate 02/09/2021 12:00:00 AM EDT RESPIRATORY active [facility] ([facility]) Dexamethasone 0.1 MG/ML Oral Solution Dexamethasone 02/09/2021 12:00:00 AM EDT ORAL active [facility] ( [facility]) Hydroxychloroquine Sulfate 200 MG Oral Tablet Hydroxychloroq uine Sulfate 02/09/2021 12:00:00 AM EDT ORAL active [facility] ([facility]) Hydrocortisone 10 MG/ML Topical Cream Hydrocortisone 02/09/2021 12:00:00 AM EDT active [facility] ( [facility]) Folic Acid 1 MG Oral Tablet Folic Acid 02/09/2021 12:00:00 AM EDT ORAL active [facility] ([facility]) difluprednate 0.5 MG/ML Ophthalmic Suspension [Durezol] Dure zol 02/09/2021 12:00:00 AM EDT completed [facility] ([facility]) Pramipexole dihydrochloride 0.125 MG Oral Tablet Pramipexole Dihydrochloride 02/09/2021 12:00:00 AM EDT ORAL active [facility] ([facility]) montelukast 10 MG Oral Tablet Montelukast Sodium 02/09/2021 12:00:00 AM EDT ORAL active [facility] ([facility]) Lidocaine Hydrochloride 20 MG/ML Injectable Solution [Xyloca ine] Xylocaine 02/09/2021 12:00:00 AM EDT active [facility] ([facility]) Ketorolac Tromethamine 5 MG/ML Ophthalmic Solution Ketorolac Tromethamine 02/09/2021 12:00:00 AM EDT OPHTHALMIC completed [facility] ([facility]) Acetaminophen 325 MG / tramadol hydrochloride 37.5 MG Oral Tablet Tramadol Hydrochloride/Acetaminophen 02/09/2021 12:00:00 AM EDT ORAL active [facility] ([facility]) Chlorthalidone 25 MG Oral Tablet Chlorthalidone 02/09/2021 12:00:00 A M EDT ORAL active [facility] ([facility]) 2.5 mg 02/08/2021 12:00:00 AM EDT [...] BY MOUTH TWICE A DAY SOLD: 01/27/2021 [facility] Hydralazine Hydrochloride 100 MG Oral [...] DAILY DOSE = THREE TABLETS SOLD: 12/20/2020 [facility] 10 mg 12/18/2020 12:00:00 AM EST [...] TABLET BY MOUTH EVERY DAY SOLD: 04/07/2021 [facility] Cyclobenzaprine hydrochloride 10 MG Oral Tablet CYCLOBENZAPR [...] Le xapro 5 MG eCW1 ([facility]) Escitalopram 5 MG Oral Tablet [Lexapro] Lexapro 5 MG Lexapro 5 MG 12/15/2020 12:00:00 AM EST 1.0 {tablet} active Le xapro 5 MG eCW1 ([facility]) Escitalopram 5 MG Oral Tablet [Lexapro] Lexapro 5 MG Lexapro 5 MG 12/15/2020 12:00:00 AM EST 1.0 {tablet} active Le xapro 5 MG eCW1 ([facility]) 2 mg 12/15/2020 12:00:00 AM [...] Le xapro 5 MG eCW1 ([facility]) 2 mg 12/15/2020 12:00:00 AM EST tablet 90 TAKE ONE TABLET BY MOUTH THREE TIMES A DAY ( BEFORE MEALS ) TAKE ONE TABLET BY MOUTH THREE TIMES A D AY ( BEFORE MEALS ) SOLD: 01/18/2021 [facility] Escitalopram 5 MG Oral Tablet [Lexapro] Lexapro 5 MG Lexapro 5 MG 12/15/2020 12:00:00 AM EST 1.0 {tablet} active Le xapro 5 MG eCW1 ([facility]) Escitalopram 5 MG Oral Tablet ESCITALOPRAM OXALATE 12/15/2020 12 :00:00 AM EST tablet 30 TAKE ONE TABLET BY MOUTH EVERY D AY TAKE ONE TABLET BY MOUTH EVERY DAY SOLD: 12/15/2020 [facility] Escitalopram 5 MG Oral Tablet [Lexapro] Lexapro 5 MG Lexapro 5 MG 12/15/2020 12:00:00 AM EST 1.0 {tablet} active Le xapro 5 MG eCW1 ([facility]) 2 mg 12/15/2020 12:00:00 AM EST tablet 90 TAKE ONE TABLET BY MOUTH THREE TIMES A DAY ( BEFORE MEALS ) TAKE ONE TABLET BY MOUTH THREE TIMES A D AY ( BEFORE MEALS ) SOLD: 02/16/2021 [facility] Escitalopram 5 MG Oral Tablet [Lexapro] Lexapro 5 MG Lexapro 5 MG 12/15/2020 12:00:00 AM EST 1.0 {tablet} active Le xapro 5 MG eCW1 ([facility]) Escitalopram 5 MG Oral Tablet [...] AY ( BEFORE MEALS ) SOLD: 2021 [facility] Escitalopram 5 MG Oral Tablet [Lexapro] Lexapro 5 MG Lexapro 5 MG 12/15/2020 12:00:00 AM EST 1.0 {tablet} active Le xapro 5 MG eCW1 ([facility]) Escitalopram 5 MG Oral Tablet [Lexapro] Lexapro 5 MG Lexapro 5 MG 12/15/2020 12:00:00 AM EST 1.0 {tablet} active Le xapro 5 MG eCW1 ([facility]) Escitalopram 5 MG Oral Tablet [Lexapro] Lexapro 5 MG Lexapro 5 MG 12/15/2020 12:00:00 AM EST 1.0 {tablet} active Le xapro 5 MG eCW1 ([facility]) 2 mg 12/15/2020 12:00:00 AM EST tablet 90 TAKE ONE TABLET BY MOUTH THREE TIMES A DAY ( BEFORE MEALS ) TAKE ONE TABLET BY MOUTH THREE TIMES A D AY ( BEFORE MEALS ) SOLD: 04/13/2021 [facility] Escitalopram 5 MG Oral Tablet ESCITALOPRAM OXALATE 12/15/2020 12 :00:00 AM EST tablet 30 TAKE ONE TABLET BY MOUTH EVERY D AY TAKE ONE TABLET BY MOUTH EVERY DAY SOLD: 02/11/2021 [facility] Escitalopram 5 MG Oral Tablet [Lexapro] Lexapro 5 MG Lexapro 5 MG 12/15/2020 12:00:00 AM EST 1.0 {tablet} active Le xapro 5 MG eCW1 ([facility]) Escitalopram 5 MG Oral Tablet [Lexapro] Lexapro 5 MG Lexapro 5 MG 12/15/2020 12:00:00 AM EST 1.0 {tablet} active Le xapro 5 MG eCW1 ([facility]) Escitalopram 5 MG Oral Tablet ESCITALOPRAM OXALATE 12/15/2020 12 :00:00 AM EST tablet 30 TAKE ONE TABLET BY MOUTH EVERY D AY TAKE ONE TABLET BY MOUTH EVERY DAY SOLD: 03/09/2021 [facility] Escitalopram 5 MG Oral Tablet [Lexapro] Lexapro 5 MG Lexapro 5 MG 12/15/2020 12:00:00 AM EST 1.0 {tablet} active Le xapro 5 MG eCW1 ([facility]) Escitalopram 5 MG Oral Tablet [Lexapro] Lexapro 5 MG Lexapro 5 MG 12/15/2020 12:00:00 AM EST 1.0 {tablet} active Le xapro 5 MG eCW1 ([facility]) Escitalopram 5 MG Oral Tablet [Lexapro] Lexapro 5 MG Lexapro 5 MG 12/15/2020 12:00:00 AM EST 1.0 {tablet} active Le xapro 5 MG eCW1 ([facility]) Escitalopram 5 MG Oral Tablet [Lexapro] Lexapro 5 MG Lexapro 5 MG 12/15/2020 12:00:00 AM EST 1.0 {tablet} active Le xapro 5 MG eCW1 ([facility]) Escitalopram 5 MG Oral Tablet [Lexapro] Lexapro 5 MG Lexapro 5 MG 12/15/2020 12:00:00 AM EST 1.0 {tablet} active Le xapro 5 MG eCW1 ([facility]) montelukast 10 MG Oral Tablet [...] BY MOUTH EVERY EVENING SOLD: 01/05/2021 [facility] montelukast 10 MG Oral Tablet MONTELUKAST SODIUM 12/07/2020 12:0 0:00 AM EST tablet 30 TAKE ONE TABLET BY MOUTH EVERY E VENING TAKE ONE TABLET BY MOUTH EVERY EVENING SOLD: 12/10/2020 [facility] montelukast 10 MG Oral Tablet MONTELUKAST SODIUM 12/07/2020 12:0 0:00 AM EST tablet 30 TAKE ONE TABLET BY MOUTH EVERY E VENING TAKE ONE TABLET BY MOUTH EVERY EVENING SOLD: 02/11/2021 [facility] 50 mg 11/18/2020 12:00:00 AM EST tablet 60 TAKE ONE TABLET BY MOUTH TWO TIMES A DAY TAKE ONE TABLET BY MOUTH TWO TIMES A DAY SOLD: 11/18/2020 [facility] 50 mg 11/18/2020 12:00:00 AM [...] TABLET BY MOUTH EVERY DAY SOLD: 12/07/2020 [facility] Hydroxychloroquine Sulfate 200 MG Oral [...] A ND TWO EVERY EVENING SOLD: 02/27/2021 [facility] 0.125 mg 09/27/2020 12:00:00 AM EST tablet 90 TAKE ONE TABLET BY MOUTH EVERY MORNING AND TWO EVERY EVENING TAKE ONE TABLET BY MOUTH EVERY MORNING A ND TWO EVERY EVENING SOLD: 11/22/2020 [facility] 0.125 mg 09/27/2020 12:00:00 AM [...] K eflex 500 MG eCW1 ([facility]) 15 mg 09/22/2020 12:00:00 AM EST tablet extended release 24hr 30 TAKE ONE TABLET BY MOUTH EVERY DAY AT BEDTIME TAKE ONE TABLET BY MOUTH EVERY DAY AT BEDTIME SOLD: 04/07/2021 [facility] Cephalexin 500 MG Oral Capsule [Keflex] Keflex 500 MG Keflex 500 MG 09/22/2020 12:00:00 AM EST 1.0 {capsule} active K eflex 500 MG eCW1 ([facility]) 15 mg 09/22/2020 12:00:00 AM EST tablet extended release 24hr 30 TAKE ONE TABLET BY MOUTH EVERY DAY AT BEDTIME TAKE ONE TABLET BY MOUTH EVERY DAY AT BEDTIME SOLD: 02/11/2021 [facility] Cephalexin 500 MG Oral [...] K eflex 500 MG eCW1 ([facility]) 15 mg 09/22/2020 12:00:00 AM [...] K eflex 500 MG eCW1 ([facility]) 15 mg 09/22/2020 12:00:00 AM EST tablet extended release 24hr 30 TAKE ONE TABLET BY MOUTH EVERY DAY AT BEDTIME TAKE ONE TABLET BY MOUTH EVERY DAY AT BEDTIME SOLD: 12/07/2020 [facility] Cephalexin 500 MG Oral Capsule [Keflex] Keflex 500 MG Keflex 500 MG 09/22/2020 12:00:00 AM EST 1.0 {capsule} active K eflex 500 MG eCW1 ([facility]) Cephalexin 500 MG Oral Capsule [Keflex] Keflex 500 MG Keflex 500 MG 09/22/2020 12:00:00 AM EST 1.0 {capsule} active K eflex 500 MG eCW1 ([facility]) 15 mg 09/22/2020 12:00:00 AM [...] K eflex 500 MG eCW1 ([facility]) 15 mg 09/22/2020 12:00:00 AM EST tablet extended release 24hr 30 TAKE ONE TABLET BY MOUTH EVERY DAY AT BEDTIME TAKE ONE TABLET BY MOUTH EVERY DAY AT BEDTIME SOLD: 05/11/2021 [facility] Cephalexin 500 MG Oral Capsule [Keflex] Keflex 500 MG Keflex 500 MG 09/22/2020 12:00:00 AM EST 1.0 {capsule} active K eflex 500 MG eCW1 ([facility]) 15 mg 09/22/2020 12:00:00 AM [...] active Ondansetron 4 MG eCW1 ([facility]) Ondansetron 4 MG Disintegrating Oral Tablet Ondansetron 4 MG 08/18/2020 12:00:00 AM EDT 1.0 {tablet_on_the_tongue_and_allow_to_dissolve} active Ondansetron 4 MG eCW1 ([facility]) Ondansetron 4 MG Disintegrating Oral Tablet Ondansetron 4 MG 08/18/2020 12:00:00 AM EDT 1.0 {tablet_on_the_tongue_and_allow_to_dissolve} active Ondansetron 4 MG eCW1 ([facility]) Ondansetron 4 MG Disintegrating Oral Tablet Ondansetron 4 MG 08/18/2020 12:00:00 AM EDT 1.0 {tablet_on_the_tongue_and_allow_to_dissolve} active Ondansetron 4 MG eCW1 ([facility]) Ondansetron 4 MG Disintegrating Oral Tablet Ondansetron 4 MG 08/18/2020 12:00:00 AM EDT 1.0 {tablet_on_the_tongue_and_allow_to_dissolve} active Ondansetron 4 MG eCW1 ([facility]) Ondansetron 4 MG Disintegrating Oral Tablet Ondansetron 4 MG 08/18/2020 12:00:00 AM EDT 1.0 {tablet_on_the_tongue_and_allow_to_dissolve} active Ondansetron 4 MG eCW1 ([facility]) Ondansetron 4 MG Disintegrating Oral Tablet Ondansetron 4 MG 08/18/2020 12:00:00 AM EDT 1.0 {tablet_on_the_tongue_and_allow_to_dissolve} active Ondansetron 4 MG eCW1 ([facility]) Ondansetron 4 MG Disintegrating Oral Tablet Ondansetron 4 MG 08/18/2020 12:00:00 AM EDT 1.0 {tablet_on_the_tongue_and_allow_to_dissolve} active Ondansetron 4 MG eCW1 ([facility]) Ondansetron 4 MG Disintegrating Oral Tablet Ondansetron 4 MG 08/18/2020 12:00:00 AM EDT 1.0 {tablet_on_the_tongue_and_allow_to_dissolve} active Ondansetron 4 MG eCW1 ([facility]) Ondansetron 4 MG Disintegrating Oral Tablet Ondansetron 4 MG 08/18/2020 12:00:00 AM EDT 1.0 {tablet_on_the_tongue_and_allow_to_dissolve} active Ondansetron 4 MG eCW1 ([facility]) Ondansetron 4 MG Disintegrating Oral Tablet Ondansetron 4 MG 08/18/2020 12:00:00 AM EDT 1.0 {tablet_on_the_tongue_and_allow_to_dissolve} active Ondansetron 4 MG eCW1 ([facility]) Ondansetron 4 MG Disintegrating Oral Tablet Ondansetron 4 MG 08/18/2020 12:00:00 AM EDT 1.0 {tablet_on_the_tongue_and_allow_to_dissolve} active Ondansetron 4 MG eCW1 ([facility]) Ondansetron 4 MG Disintegrating Oral Tablet Ondansetron 4 MG 08/18/2020 12:00:00 AM EDT 1.0 {tablet_on_the_tongue_and_allow_to_dissolve} active Ondansetron 4 MG eCW1 ([facility]) Ondansetron 4 MG Disintegrating Oral Tablet Ondansetron 4 MG 08/18/2020 12:00:00 AM EDT 1.0 {tablet_on_the_tongue_and_allow_to_dissolve} active Ondansetron 4 MG eCW1 ([facility]) Ondansetron 4 MG Disintegrating Oral Tablet Ondansetron 4 MG 08/18/2020 12:00:00 AM EDT 1.0 {tablet_on_the_tongue_and_allow_to_dissolve} active Ondansetron 4 MG eCW1 ([facility]) Ondansetron 4 MG Disintegrating Oral Tablet Ondansetron 4 MG 08/18/2020 12:00:00 AM EDT 1.0 {tablet_on_the_tongue_and_allow_to_dissolve} active Ondansetron 4 MG eCW1 ([facility]) Ondansetron 4 MG Disintegrating Oral Tablet Ondansetron 4 MG 08/18/2020 12:00:00 AM EDT 1.0 {tablet_on_the_tongue_and_allow_to_dissolve} active Ondansetron 4 MG eCW1 ([facility]) 4 mg 08/18/2020 12:00:00 AM EDT tablet,disintegrating 4 5 DISSOLVE ONE TABLET ON TONGUE EVERY 8 HOURS NEEDED FOR NASUEA DISSOLVE ONE TABLET ON TONGUE EVERY 8 HOURS NEEDED FOR NASUEA SOLD: 08/18/2020 [facility] 160-4.5 mcg/actuation 08/12/2020 12:00:00 AM EDT HFA [...] TABLET BY MOUTH EVERY NIGHT SOLD: 11/09/2020 [facility] montelukast 10 MG Oral Tablet MONTELUKAST SODIUM 08/11/2020 12:0 0:00 AM EDT tablet 30 TAKE ONE TABLET BY MOUTH EVERY N IGHT TAKE ONE TABLET BY MOUTH EVERY NIGHT SOLD: 09/06/2020 [facility] montelukast 10 MG Oral Tablet MONTELUKAST SODIUM 08/11/2020 12:0 0:00 AM EDT tablet 30 TAKE ONE TABLET BY MOUTH EVERY N IGHT TAKE ONE TABLET BY MOUTH EVERY NIGHT SOLD: 10/06/2020 [facility] montelukast 10 MG Oral [...] DAILY DOSE = ONE TABLET SOLD: 07/31/2020 [facility] Cephalexin 500 MG Oral Capsule CEPHALEXIN 07/28/2020 12:00:00 AM EDT capsule 14 TAKE ONE CAPSULE BY MOUTH TWICE A DAY TAKE ONE CAPSULE BY MO UT TWICE A DAY SOLD: 07/28/2020 [facility] Acyclovir 400 MG Oral Tablet [...] TIMES A WEEK SOLD: 10/18/2020 [facility] Cyclobenzaprine hydrochloride 10 MG Oral [...] A DAY NEEDED SOLD: 10/08/2020 [facility] 100 unit/mL 05/25/2020 12:00:00 AM [...] TABLET BY MOUTH EVERY DAY SOLD: 07/08/2020 [facility] Hydroxychloroquine Sulfate 200 MG Oral Tablet [...] type / Coverage type Policy ID Covered democrat ID Covered democrat's relationship to sharma Policy Sharma Plan Information [employer] [id number] SP [id number] [facility] Federal Service Medigap Part B [id number] Family De pendent Ghi/Emblem HLTH (pr) Medigap Part B [id number] Self PGBA [facility] 10/21/15 2 10/21/15 MEDICARE [id number] SP [id number] A POMCO [id number] Liv [id number] POMCO [id number] Liv [id number] POMCO U [id number] Self [id number] POMCO [id number] SP [id number] [place] (pr) Medigap Part B [id number] Self UMR [facility] [id number] SP [id number] [place] [id number] S [id number] [place] [id number] S [id number] [place] [id number] S [id number] MEDICARE A [id number] Self [id number] MEDICARE [id number] Liv [id number] MEDICARE [id number] SP [id number] A [place] MEDICARE DIVISION [id number] S [id number] MEDICARE [id number] Liv [id number] A MEDICARE A [id number] Self [id number] A MEDICARE [id number] Liv [id number] A [place] MEDICARE DIVISION [id number] S [id number] [place] MED[employer]ARE DIVISION [id number] S [id number] U [id number] Spouse [id number] Liv [id number] Liv [id number] [facility] ([place]) Medigap Part B [id number] Family Dep endent Medicare Dme Supplies Medigap Part B [id number] Self Medicare [place] Primary [id number] Self WPS For Life Medigap Part B [id number] Family Dependent 1 [id number] WPS For Life Medigap Part B [id number] Family Dependent 1 [id number] FOR LIFE [id number] 2 [id number] R U [id number] Self [id number] POMCO [id number] SP [id number] POMCO [id number] SP [id number] R [id number] S [id number] R [id number] S [id number] FOR LIFE U [id number] Spouse 0 [id number] FOR LIFE [id number] SP [id number] FOR LIFE [id number] 2 [id number] [facility] [id number] SP [id number] [facility] Commercial [id number] Self [id number] ANSI-Medicare Part B [id number] ANSI-Commercial [id number] ANSI-Commercial [id number] ANSI-Commercial [id number] ANSI-Commercial [id number] ANSI-Commercial [id number] ANSI-Medicare Part B [id number] ANSI-Commercial [id number] ANSI-Commercial [id number] ANSI-Commercial [id number] ANSI-Medicare Part B [id number] [facility] [id number] [facility] [id number] ANSI-Medicare Part B [id number] ANSI-Commercial [id number] ANSI-Commercial [id number] ANSI-Commercial [id number] ANSI-Commercial [id number] ANSI-Medicare Part B [id number] ANSI-Commercial [id number] ANSI-Commercial [id number] ANSI-Medicare Part B [id number] ANSI-Commercial [id number] ANSI-Commercial [id number] ANSI-Commercial [id number] ANSI-Commercial [id number] ANSI-Commercial [id number] ANSI-Commercial [id number] ANSI-Medicare Part B [id number] For Life - [facility] Part B [id number] Family D[facility] [id number] [facility] [id number] Self [id number] Medicare (Part B) Medicare Primary [id number] Self [id number] ANSI-Medicare Part B [id number] 3267b089-e2y3-9l4d-t500-2z3j6q12g398 ANSI-Commercial 88d7r776-73q2-359m-4ks7-61896zf8a748 52i8b937-99i8-428i-5nt6-15341lu3k446 ANSI-Commercial 42f3na7b-2131-4083-p89z-4f9o51f57j4k 35d9ma2z-5115-0424-w10f-9h6m13b18p2f ANSI-Commercial 1816qf51-4540-3072-d317-42c422o583p6 9840kk47-8467-8090-a407-74t595g722c0 ANSI-Commercial 0k5i2hj6-9k59-4243-52ga-813t59817x55 7a6m0ti8-5b55-6275-36un-454s71465p13 ANSI-Commercial ef20p5ch-f0yz-1l76-qb50-pehq9h659347 cg87r4kd-p6jg-9o51-oi03-ogkl8y355875 ANSI-Commercial 880l7964-46aw-0gw8-3360-944xh2r5v8w5 681l0488-52zj-8bx2-8038-205wg0d8q7a3 ANSI-Medicare Part B 40729b0u-sv6g-94dg-k6nv-j82b39u853s6 73186j7z-ip9n-37dd-u6gg-u13n84m426e6 ANSI-Commercial 7o57s3v6-j0h4-1232-ci73-s6qr4s9367uy 0k40t1y6-v1v7-4845-uw74-z7xy8i9083is ANSI-Commercial 0bn6rr8v-hy37-757s-2694-l8z0o2k1393h 4at6ec3w-pm84-244o-8149-e8o0t0h4683a ANSI-Medicare Part B b04z2n83-5w4w-8480-k2xa-9m3w90w1q1le l53s1j64-1s0y-0299-l1tz-2d1c42x4u4sb ANSI-Commercial f1e81ws3-5kwh-8433-t2h1-4926025eme9c p8f22aa5-2ery-5662-t2o9-7606277spo9o ANSI-Commercial o3s85766-f51b-121e-gp65-iunmo2d4g4f2 z7k58759-s05h-678f-zl18-norql4p1n3l8 ANSI-Commercial 190r43u8-8958-34w2-ja35-675c49buie06 989h02o5-9784-49y6-yc61-482y70rbhg96 ANSI-Commercial 4443bdsn-784f-5r374v62-8x80-3727g12374ay 4889paxw-568l-8w499p11-2w91-7746y97924lw ANSI-Medicare Part B [id number]-h775-56v8-4ped-s5s09epez11r 03j05558-e027-97j6-6ypb-n9t74hbvl06e ANSI-Commercial yo210y89-9473-5q5u-82co-34n039pwjx7e bc122d28-0984-9o7m-94vu-85n562brxf8d ANSI-Commercial 832349m9-3l08-6g52-1y43-1p4l6181149r 054864c2-0n86-2j56-7q12-3p8b2147359m ANSI-Medicare Part B 58089r55-m5ww-34r0-vz50-3c8m1j60981w 93576y86-g4ry-62g3-yu32-3i4d3r21719j ANSI-Commercial 6912z96k-35s4-80f3-v695-ki8f689k811e 7535r69d-94c7-14m2-q108-ov9c409b386g ANSI-Commercial f774v8a7-81ba-20ai-9756-kwuv4o184884 m445w0f8-93uh-80iv-6529-ulms0j374610 ANSI-Commercial daued49k-8k06-89ws-y207-91dl416la575 nmxxk84m-3n87-31hg-c392-54oc702ms869 ANSI-Commercial 74gk2ig0-5739-703s-rjz1-267sc12w7e4e 96kt7pt3-6742-629q-vfp4-242ki93q2u2w ANSI-Medicare Part B 019z5048-z35c-705n-i88p-83s6492m90w7 400x5844-e76w-240r-e41b-14z8973w59q8 ANSI-Commercial 5053782b-h8bj-0llz-zne4-43s56hz12m7b 0378406m-g2sq-4glu-fmd5-26a11pm19f5m ANSI-Commercial 2772b565-3d07-2o17-04hr-z7ic7k7m2z47 5275m007-6u37-8e04-14of-g8aa1f9a5f72 [facility]-Medicare Part B h0493e1z-5800-72gu-sq8t-4749012407lk o5855g3u-0219-02lf-aj1h-5609162660nb ANSI-Commercial 207p9lj1-638i-042i-4xx7-7s529m76490l 729m3zf8-962v-897x-9iw3-8a797f55055p ANSI-Commercial u0184k55-9455-8s5v-b2zn-t9862z260q6g h6194a07-0187-4m3a-x5ko-y0566r672r7x [facility] B b61e9rn2-19q3-7w29-801n-s93781v659e9 m82w8lu9-96w0-9c25-974w-d05438n914i7 ANSI-Commercial 64i4d332-2wa5-16n1-wg22-w8r2v2sh223e 69u4n109-9hz4-06y2-vt08-v8e3v7kh544j ANSI-Commercial sfw49569-a253-535z-b266-c79244z270ik fas07757-k484-147l-l569-x92453z049os ANSI-Commercial 13vp1639-37f1-4971-609t-q02y9j4706o6 83ax2873-41f8-6534-617m-k48l3z1434i5 [facility] 09x584g4-9k91-71fr-9238-v3e65jymq5l1 31c970g7-6e85-55gb-2513-a6l28jumq2k4 ANSI-Commercial p29953iy-yt9f-4d3r-470x-e26u4k27cy00 m90757ew-mc0c-8z3f-885c-j46n6n92ke46 ANSI-Commercial c320iw14-8a2b-2744-g31c-k3c3574870x0 m300za97-0x1e-6497-m15e-h8v2989515y0 ANSI-Medicare Part B o58db5j2-940i-3877-8e9q-cvn21udt064q b40nf9b8-276x-0588-5i7n-ojt85abg103e ANSI-Commercial ymrw2839-16u6-17q5-ot85-42d343w1c96g fesl2465-47e7-20b2-mz47-49g041k4r81j ANSI-Commercial fx5irn99-e91p-06km-5vz8-t246i49ty7ip ii4adn46-e56o-76fp-1ql6-u697y44ov4vt ANSI-Commercial 48544l78-06wy-6b03-506f-18fm9zt19378 42528s77-28an-5j02-252r-24zv9hv55590 ANSI-Commercial t3x6k2cj-9108-2m17-j4hp-478e5d7q508e s8s9k9ka-2314-7h62-l9kb-970v9f3z203a ANSI-Medicare Part B b1ol1ib3-n0j1-5970-71dz-k6yq18uj560w j0pv9xg7-z0h5-1088-56tt-y0ud34fb992o ANSI-Commercial h6zw474a-7250-5046-j03x-4499su4nh727 m1ne111z-0604-8901-x57s-6291py5eu677 ANSI-Commercial 0hee8316-b1t8-0449-27pq-3g0t4uvy6uk7 4gpf0040-m4u6-9061-29kg-8m4z8fty5yb4 ANSI-Commercial 63o6f8e9-2p47-16n5-n885-iafiab9135ik 58g2i7b2-8c99-24w6-o723-scbwfw5029tv ANSI-Commercial d63b3762-391b-0y88-7w2i-6g9522om7626 o45p4531-125s-1w79-9c9d-4k4502uo4258 ANSI-Commercial q95ea54z-14tk-9267-9sh2-d60j9v741c4t h87hg12r-21zi-4891-0bx5-k97u7r333f3y [facility] p6a0x7km-67i2-1q50-5250-2hvj9x038140 e4v9l6jx-86y9-9n46-8652-0zjx4l049912 ANSI-Commercial 0210f280-5684-17pf-t175-v774by2apxa7 4590z950-4708-58kp-t248-m815vz0rqiv6 ANSI-Commercial l84v5798-20w5-95em-o5jh-d16z6vhi88m6 v88k7192-13k8-31ss-s6av-v92s3wze63s9 ANSI-Commercial 59n971cv-1dtz-88x3-6w6q-75z23476e49v 42r065zj-9ztu-38k9-8o1m-49b01386j34t ANSI-Medicare Part B 02h5w5a9-5y07-36g3-f641-1qu231b79lh6 33c8o3v4-5e21-36z8-w127-7yl028e97rw9 ANSI-Commercial ap70x6z6-n36m-43pr-va9q-19pps274h5nf pj11t3o5-l63r-23uk-ic8e-90hpo904t0xm ANSI-Commercial mp0wfxy2-2z8l-5y4z-73c8-0a8n8xl2475d ek2dyfw6-4k5b-6h8a-36j4-2d1z3ih6208q ANSI-Medicare Part B szr941t7-ym8g-8o33-v8sz-4em9b9327c3s zgz057r3-yi6u-5v61-c8ba-3ld2j6394v7b ANSI-Commercial rd9n531d-8299-7vi1-p787-08dv8j48ey8o ot2y374m-9490-9uf7-d923-44ye3n83qs2e ANSI-Medicare Part B l9w245q7-aox9-6880-34m5-3ch51115k34h r5g289v9-oxu4-4187-29y6-4js16244t24n ANSI-Commercial s21d701b-5mc2-5d0a-2120-917jo9obh204 f01d871d-9ro4-3p1b-1217-057ao2blk235 ANSI-Commercial 400m37zv-j1f2-3339-r230-e7j5127n2tro 494i32sp-l3k7-2560-t530-h7n7476a3hgm ANSI-Commercial 0j7767ah-66p6-5701-946u-n9089jtr3550 5p8527aq-28n3-8317-176m-s7946odi5240 ANSI-Commercial 51u1e475-dv8j-5d82-8390-25x09226gxl5 80m6i250-un0v-3e64-5804-34f47958jab1 ANSI-Medicare Part B o740ak44-16v4-76d8-64zt-r01u50ku1crf o559qt26-23t9-35v4-79zs-t01s92ow2qxr ANSI-Commercial 3ke1x07c-xv91-5z52-oz7w-34379pnjj04w 4sf8b60m-tr68-7h42-wg7j-17944lkez37j ANSI-Commercial u58q89zr-c13c-93z7-k755-028991590n58 x82j64dv-u80t-55f0-q778-989121361g99 ANSI-Commercial s262effg-np78-5gsb-xuv8-ftp4209925jr e923azvz-ba32-7wee-cqv4-rgq8081671ej ANSI-Commercial cr93862j-y2vx-6oh5-d93o-8kq3ci021nsk jl32139q-v6zj-6yo9-o99v-6oi5ed795lca ANSI-Medicare Part B a13c635p-9z2k-8292-pid7-1mr7i9ms12p5 w04k455b-1r1n-3781-ava8-8tt7m3bk77w4 ANSI-Commercial 0ap7o4ch-3z1z-9c34-8v50-558bt2po6c0w 8sh5q3mr-8z6m-4e94-6d52-380lu0gd3l7h [facility] [id number] 2.16.840.1.802323.3.227.99.572.22487.0 Family Dependent 1 [id number] r [facility] [id number] 2.16.840.1.716254.3.227.99.572.303 39.0 Self [id number] Medicare (Part B) Medicare Primary [id number] 2.16.840.1.838564.3.227.99.572.16384.0 Self 2 [id number] ANSI-Commercial 04i05880-21yt-6hl9-5935-7049xo9119v6 27o44118-97mj-9ee6-9666-7048gv3235h9 ANSI-Medicare Part B 08607i48-b4fu-2920-g900-441la5788s5a 75234h15-t7ob-6715-m610-130wr6036x0k ANSI-Commercial t61zj163-25em-5d03-t8v6-624k2640f598 n53bu450-23nw-9f74-b8w3-806n7873a106 ANSI-Commercial 74v860z7-96dh-0780-29lq-97us4g959374 38l019p3-21hk-1884-21gn-20xy4p526132 ANSI-Commercial 7c4y09kw-7640-45y6-sm2c-50s3t1vj936x 0h6m05kt-1463-35m7-gl7c-53c3q3ow381g ANSI-Commercial 872695j2-u8og-712n-nzm8-0c4523456d89 512150p3-s4mq-051g-ylp6-4s4128434f42 ANSI-Medicare Part B 855swt2j-9429-7043-9q8z-7s01jp0258fc 685xup0z-1111-9513-1v1a-7l38do5659ds ANSI-Commercial 14wmfh2h-0r9q-4sg2-q0s5-54im25323ps8 33tzjk2j-4w2k-0cx4-t8t6-22vx13220xh3 For Life - WPS [facility] Part B [id number] 2.16.840.1.788486.3.227.99.572.59068.0 Family Dependent 1 [id number] [facility] [id number] 2.16.840.1.343364.3.227.99.572.303 39.0 Self [id number] Medicare (Part B) Medicare Primary [id number] 2.16.840.1.317295.3.227.99.572.01724.0 Self 2 [id number] ANSI-Medicare Part B 4363ui5j-4667-9if6-k60t-h6j4p626fy38 9118ml3u-5098-0xr0-f28b-o9d7e416dj74 ANSI-Commercial 8e983o84-5p87-7552-y96e-rm7u5w428v27 8a946m24-0t67-0847-y14z-ib4g4p410v59 ANSI-Commercial 5426q1s0-52bp-7n47-716n-690307745839 9947o9x2-94lr-4i38-296t-969707750325 ANSI-Commercial 99c2g153-7l06-6171-i3s0-ov0cc39kw8hv 43s4a402-1q52-7915-m6l9-ex8em89an8cm ANSI-Commercial wfu06st2-048g-699f-c006-3k4962f05478 lpe85uh1-402n-741j-a406-0k4919j62298 ANSI-Medicare Part B 502as557-746b-578s-8ud2-03a7ndbh9390 030rb817-772r-267t-7kw3-94r2pcyt9813 ANSI-Commercial 7l6dq0n6-0137-8n89-o19v-4v746t3x6240 0u2ow6k8-8699-6h10-n70n-3i230b6x4700 ANSI-Commercial 9kl412fo-s800-3625-h486-56he2j31b294 3wr064bu-b253-7448-r942-23le2o86q021 ANSI-Commercial 3uj44e4d-hyo2-3166-a574-a675thf36f12 4bb96m1v-dns9-3402-r328-u434krh84e58 ANSI-Medicare Part B 6i4u20h6-304n-43ty-i2d6-01k58bkdo0v8 6f0t86g8-392u-26ge-o0k3-08u73hrqa6s0 ANSI-Commercial vbe3rmlc-333c-651l-n000-7330cc77sdv6 nsm3wgxf-798b-463k-x843-9629fu31ijk1 ANSI-Commercial 46qe40n5-371y-22g0-7404-7dq57pra5e28 51xd23l8-140k-25i0-3899-9vd85mws7e62 ANSI-Medicare Part B c1290453-tib8-7165-584r-8ihk9432e210 x0503473-zfy9-0980-921i-1jix3984d318 ANSI-Commercial 343918g8-6a90-2f75-i987-4n82496z0897 136285q0-8k06-5m65-i431-2l42639i2364 ANSI-Commercial lwe364gc-3ea7-74i1-myx9-car1304u4u45 uvt452oq-8cf1-02t9-rok1-tvj2754w1o64 ANSI-Commercial 92u656w6-hl14-3o80-636p-j3c1xz3s90o9 11c303d1-zh93-9i08-554x-r9k5pt0g65o5 ANSI-Commercial 1v266m1t-nwn0-3h87-5o21-7103f284zdp8 5e790b3a-fhz0-0k57-5u54-1318i281yze8 ANSI-Medicare Part B i10949c6-4122-4939-520e-n7yzf5vl981v m55556t1-3359-0561-630f-h3mgs9lk833x ANSI-Commercial e6k2h0n6-747l-5189-gi85-0zynh1q3521d e4z9s3b6-306j-5544-ot55-0mgkj9o5080y ANSI-Commercial 1632044g-70i3-3s44-a6z9-a51882o9d0e1 9214746h-15l2-8r52-n4w8-l21192e4d3r3 [employer] Maintenance 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 (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) 11 [id number] ..1.981822.3.227.99.8646.8124.0 Family Dependent 1 [id number] [facility] Medigap Part B [id number] ..1.788675.3.227.99.8646.812 4.0 Self [id number] [facility] [id number] 2.0.1.042104.3.227.99.8646.812 4.0 Self [id number] Medicare [place] Medicare Primary [id number] 2..1.555729.3.227.99.8646.8124.0 Self 2 [id number] ANSI-Commercial ba98pnt7-83u0-0z97-vt4a-jf3f7992p17e ku53pcx9-80r3-7w24-cr5y-rl7m1526d59o ANSI-Commercial o06m7sn5-3k35-2776-230z-wz1k88b6r790 a67d1jo6-5l42-0554-651w-cl3d84l6p763 ANSI-Commercial g243a87v-d779-704i-vf4d-va9tr27k78y2 n939q95s-f928-398p-ak9r-vx5nz96h01f3 ANSI-Medicare Part B 4p9ku8k2-08lq-4ua8-q077-103p74381875 0n2ru4o6-35jm-0bp4-i866-952y93471290 ANSI-Commercial 60q22719-5v6o-8r04-1f46-z50123188a23 98w72844-5m0r-7a15-4z93-z02430308d30 ANSI-Commercial 14kkbhy7-o3hm-4335-hb64-fd9k7x3507qb 00wzhzw9-y9dc-8233-vj50-ok3o2n2630at ANSI-Commercial 313n4703-5dd6-5yt3-7467-9ff7580g1562 951m2365-1lk3-0bb5-9781-6ya5898t1597 ANSI-Medicare Part B r49ur9g0-uk16-3033-q6a7-i0trx3m0ot43 y16nr2h6-bc41-9604-s0j2-b4zdv6t2dk68 ANSI-Commercial 517jlqeq-8166-5530-944d-hfg1x4wtj02u 602phopn-7562-4217-944d-kgc0y9ipz52f ANSI-Commercial qlb9ou37-4688-6ev0-312i-7zro0tvr4i27 ijd3sf50-9127-6sc8-303f-3aaw6yhn8z17 ANSI-Commercial 6zxb5qv1-04m0-3766-5td3-7c1s9803qs31 5rdb1va5-66m1-5149-1qn3-9l1l2516fj22 ANSI-Medicare Part B ky6e5439-5ux1-85t1-k07s-dn397kq6x79v mi4j2531-1ry9-95v9-h44w-lc241sh4n39r ANSI-Commercial 0cx9305l-167y-6619-fob7-ar2822dr62ww 6wv7350z-231b-0943-cmi6-gl1146yq60kj ANSI-Commercial 4l80eu4m-520t-14p4-zb46-7518609c752l 0w41lo9p-339t-19f8-ei71-0355264t337g ANSI-Commercial 40116191-m32a-5107-k488-28q397od62hs 62708544-g33b-3338-k212-27i458mo60ye ANSI-Medicare Part B 7on274fr-403n-2863-hv96-8aun8638446m 6ps742fk-093o-9466-qe44-8kms1729409i ANSI-Commercial j94fm6pk-r6g5-18t9-7l59-596w415s35g6 y31uk7hq-t2e2-56k8-2j90-531e947i41t1 ANSI-Commercial 0321v377-p44s-0623-739a-27gy7bv2804r 5535q569-a34y-7193-548z-47eq8hd6169y ANSI-Medicare Part B 928j04l7-88ij-3g13-8o92-98sxz7s072q6 564u46d5-82ei-4a61-0o87-75mty2k226q8 ANSI-Commercial gwn22r4c-u5sg-1y34-3r0k-26k0el632o57 lpd78b8s-u0pv-2e81-2d3x-07k8ek601a13 For Life - S [facility] Part B [id number] 2.16.840.1.940066.3.227.99.572.23795.0 Family Dependent 1 [id number] r [facility] [id number] 2.16.840.1.218072.3.227.99.572.303 39.0 Self [id number] Medicare (Part B) Medicare Primary [id number] 2.16.840.1.545662.3.227.99.572.52865.0 Self 2 [id number] ANSI-Commercial 1j22c343-q1g2-1112-1wdx-jm47kgse3051 3y28s010-x1k0-5459-1jmi-ne32fylo1718 ANSI-Medicare Part B b5nu671q-097l-70d1-oven-ff02324n5tg6 w7wg149z-687a-10o3-ehkm-jo02063d6ut7 ANSI-Commercial 8eko3fr0-3819-50u5-b694-4172n4t20x13 4kal2pi2-4970-28g9-k692-2406u1d33j10 ANSI-Commercial 96v875m7-2eu5-27n9-s712-9395767zc5re 18h261y0-7pq3-18j2-h041-4885093bx5go [facility] [id number] S [id number] MEDICARE - [place] [id number] S [id number] ANSI-Commercial 5w18838o-0833-1ox3-3at4-6x877zy9n623 0z05322y-3629-7oq8-5bc2-6h187ip0p148 ANSI-Medicare Part B b6701z82-9h58-706d-3v13-io0j24549t0z n6442p11-7a88-500d-9x32-pi4t90589o5y ANSI-Commercial y88g79m0-01nv-6mim-o7p5-5ets91gbi4in n53b87x8-30dj-7vxa-k5i9-2hcx98auv9jf ANSI-Commercial q590y137-r972-74rb-iwnl-33787c4ic287 w847j448-h389-57ye-ejtq-38348f4uc630 FOR LIFE [id number] [facility] [id number] MEDICARE [id number] A ANSI-Commercial 8r873x71-i601-93h0-05f1-4w0j531y769s 4s257f68-b542-94x9-33f9-0u2v581g359j ANSI-Medicare Part B 9hp45691-39g3-8694-0bdx-242863i51707 2vm85384-82q6-5481-1iqe-641700q18203 ANSI-Commercial 597j838p-8hk9-563m-w9q8-s8fk8107815f 354k731l-3gp4-859v-j0x8-l3sf5704308y ANSI-Commercial 7u2103l1-dcsd-6w1u-ego9-o0c57f7x6v27 9h3786t9-mycz-5c2q-cen7-u7q16w7w8m95 ANSI-Commercial b3l26815-9885-1x73-w037-219t4pyalb4d g4t67279-6213-1r52-d513-686i3jpxok9u ANSI-Medicare Part B 1x26v002-p701-44zm-gs71-32444g512123 3x55z481-t178-77nq-xb62-00690t920797 ANSI-Commercial 2z11h63x-122h-2579-wi49-3s97bcs7y13v 4g68g95h-136q-4920-ns24-8k64hyy6o55s ANSI-Commercial 268xno38-aww7-385x-r606-338m08137207 111nmo35-bym8-057m-f315-641m85873390 [facility] [id number] 2.16.840.1.587729.3.227.99.572.18526.0 Family Dependent 1 [id number] [facility] Medigap Part B [id number] 2.16.840.1.666764.3.227.99.572.303 39.0 Self [id number] Medicare (Part B) Medicare Primary [id number] 2.16.840.1.140996.3.227.99.572.37887.0 Self 2 [id number] For Life - WPS [facility] Part B [id number] 2.16.840.1.639625.3.227.99.572.20252.0 Family Dependent 1 [id number] [facility] Part B [id number] 2.16.840.1.148116.3.227.99.572.303 39.0 Self [id number] Medicare (Part B) Medicare Primary [id number] 2.16.840.1.858000.3.227.99.572.91363.0 Self 2 [id number] ANSI-Commercial bmu883oi-8f23-01hr-4q72-m45qu778f856 yjw085pa-0k68-45xh-2b01-k04ft086y032 ANSI-Commercial w063lp31-2z65-0h62-r6m7-47a4yzm6uw31 j818sk39-8s21-6q56-j3v1-22u0pok8hi86 ANSI-Medicare Part B cas8977i-5572-947f-t527-72447n73o97m ipo8153o-2315-096v-m261-24681z27z70w ANSI-Commercial 93mnq9x0-1d23-6yl5-hp60-3z1294015085 10nrb0q2-7m69-8mz3-py50-1d3712046620 ANSI-Medicare Part B 104776l0-90e2-1x56-el1o-1008s7s1344r 426960w1-60w6-3p76-lz6g-1449g5t2420t ANSI-Commercial 701530lz-10y0-585c-05z2-f2w11k8a16bg 376646df-99a2-595n-39m8-p3u60f9x25bl ANSI-Commercial 80891696-7be0-4282-e006-0yr2atf48y7p 34936974-5an7-8282-i716-6rv0stt80i9s ANSI-Commercial 3222h312-d7m6-0j02-n409-ql46a1ra0j84 9406m050-p9w1-5k91-h019-hf94d0hm3k09 For Life - WPS [facility] Part B [id number] 2.0.1.813661.3.227.99.572.23840.0 Family Dependent 1 [id number] r [facility] [id number] 2..1.261229.3.227.99.572.303 39.0 Self [id number] Medicare (Part B) Medicare Primary [id number] 2.0.1.339055.3.227.99.572.74471.0 Self 1 [id number] [employer] [id number] SP [id number] [employer] PPO O [id number] S [id number] MEDICARE C [id number] S [id number] A [facility] [id number] 01 [id number] [facility] -PHYSICIAN [id number] 1 [id number] MEDICARE PART A -O [id number] 18 [id number] [facility] -O [id number] 18 [id number] MEDICARE PART A -I/P [id number] 18 [id number] [facility] [employer] - I/P [id number] 01 [id number] [facility] -O/P [id number] 18 [id number] N [facility] [id number] 01 [id number] [facility] [id number] 2.0.1.025056.3.227.99.572.74615.0 Family Dependent 1 [id number] Medicare (Part B) Medicare Primary [id number] 2.0.1.221774.3.227.99.572.42718.0 Self 1 [id number] [employer] [facility] Ppo Medigap Part B [id number] 2.16.840.1.962246.3.227. 99.572.42712.0 Self [id number] For Life - WPS Medigap Part B [id number] 2.16.840.1.882247.3.227.99.572.21478.0 Family Dependent 1 [id number] Medicare (Part B) Medicare Primary [id number] 2.16.840.1.291222.3.227.99.572.67599.0 Self [id number] [facility] Health Maintenance 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 (HMO) 11 [id number] 2.16.840.1.388818.3.227.99.8646.8124.0 Family Dependent 1 [id number] [facility] Medigap Part B [id number] 2.16.840.1.917664.3.227.99.8646.812 4.0 Self [id number] [employer] Medigap Part B [id number] 2.16.840.1.175901.3.227.99.8646.812 4.0 Self [id number] Medicare [facility] Medicare Primary [id number] 2.16.840.1.542991.3.227.99.8646.8124.0 Self 1 [id number] For Life - WPS Medigap Part B [id number] 2.16.840.1.166622.3.227.99.572.30170.0 Family Dependent 1 [id number] Medicare (Part B) Medicare Primary [id number] 2.16.840.1.239621.3.227.99.572.53877.0 Self 1 [id number] For Life - WPS Medigap Part B [id number] 2.16.840.1.335396.3.227.99.572.85343.0 Family Dependent 1 [id number] Medicare (Part B) Medicare Primary [id number] 2.16.840.1.440246.3.227.99.572.33230.0 Self 1 [id number] [employer] [id number] SP [id number] MEDICARE [id number] SP [id number] A Medicare (Part B) Medicare Primary [id number] Self For Life - WPS Medigap Part B 99104 Family Depen dent [facility] Medigap Part B [id number] Self Medicare Medicare Primary [id number] Self [facility] [place] [id number] HU2 [id number] HEALTHNET/ AD O [id number] P [id number] [facility] [place] O [id number] S [id number] HEALTHNET O [id number] U 1 [id number] [place] O [id number] S [id number] MEDICARE OUTPATIENT M [id number] S [id number] HEALTHNET O [id number] U [id number] MEDICARE [id number] SP [id number] UMR [facility] [id number] SP [id number] FOR LIFE [id number] [facility] [id number] 0 [id number] UMR [id number] 0 [id number] Medicare Part B [facility] [id number] 0 [id number] UMR [facility] [id number] SP [id number] FOR LIFE UNAVAILABLE 01 U NAVAILABLE [facility] MEDICARE PART [place] [id number] 18 [id number] [place] [id number] 18 [id number] MEDICARE PART A -O/P [id number] 18 [id number] UMR -O/P [id number] 18 [id number] [facility] - O/P [id number] 01 [id number] MEDICARE [id number] SP [id number] MEDICARE [id number] SP [id number] UMR O [id number] S [id number] MEDICARE C [id number] S [id number] FOR LIFE O [id number] S [id number] MEDICARE PART A -O/P [id number] 18 [id number] [employer] [place] Other 0 [id number] Self 0 Medicare Part B [facility] Other 0 [id number] Self 0 ANSI-Commercial [id number] ANSI-Commercial [id number] ANSI-Commercial [id number] ANSI-Medicare Part B [id number] ANSI-Commercial [id number] ANSI-Commercial [id number] ANSI-Medicare Part B [id number] ANSI-Commercial [id number] ANSI-Commercial [id number] ANSI-Commercial [id number] ANSI-Medicare Part B [id number] ANSI-Commercial [id number] ANSI-Commercial [id number] ANSI-Commercial [id number] ANSI-Commercial [id number] ANSI-Medicare Part B [id number] For Life - WPS Medigap Part B [id number] Family Dependent [id number] Umr Medigap Part B [id number] Self [id number] Medicare (Part B) Medicare Primary [id number] Self [id number] [facility] Ppo Medigap Part B [id number] Self [id number] ANSI-Commercial [id number] Problems, Conditions, and Diagnoses Code Display Name Description Problem Type Effective Dates Data Source(s) I12.9 Hypertensive chronic kidney disease with stage 1 through stage 4 chronic kidney disease, or unspecified chronic kidney disease HYPERTENSIVE CHRONIC KIDNEY DISEASE W STG 1-4/UNSP Diagnosis 08/02/2021 11:33:00 AM EDT [facility] R80.9 Proteinuria, unspecified PROTEINURIA, UNSPECIFIED Diag nosis 08/02/2021 11:33:00 AM [facility] E83.52 Hypercalcemia HYPERCALCEMIA Diagnosis 08/02/2021 11:33:00 AM [facility] N18.30 CHRONIC KIDNEY DISEASE, STAGE 3 UNSPECIF CHRONIC KIDNEY DISEASE, STAGE 3 UNSPECIF Diagnosis 08/02/2021 11:33:00 AM [facility] l N18.32 CHRONIC KIDNEY DISEASE, STAGE 3B CHRONIC KIDNEY DISEASE, STAGE 3B Diagnosis 08/02/2021 11:33:00 AM [facility] R109 Unspecified abdominal pain Unspecified abdominal pain Diagnosis 05/31/2021 03:28:00 PM [facility] 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 Z9481 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 Diagnosis 10/05/2020 12:00:00 PM [facility] D7581 Myelofibrosis Myelofibrosis Diagnosis 10/05/2020 12:00:00 PM [facility] [id number] Essential hypertension Essential hypertension Problem 05/31/2021 12:00:00 AM EDT [facility] ([facility]) R13.10 [id number] Dysphagia, unspecified type Problem 05/04/20 12:00:00 AM EDT eCW1 ([facility]) F43.22 [id number] Adjustment disorder with anxiety Problem 03/26/2021 12:00:00 AM EDT eCW1 ([facility]) E27.40 [id number] Adrenal insufficiency Problem 02/18/2021 12: 00:00 AM EDT eCW1 ([facility]) R94.31 Electrocardiogram abnormal Electrocardiogram abnormal Problem 02/10/2021 12:00:00 AM EDT [facility] ([facility]) E83.52 [id number] Hypercalcemia Problem 02/04/2021 12:00:00 AM EDT eCW1 ([facility]) I15.0 [id number] Renovascular hypertension Problem 01/19/2021 12:00:00 AM EDT eCW1 ([facility]) F33.0 [id number] 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 Problem 01/19/2021 12:00:00 AM EDT eCW1 ([facility]) F43.23 [id number] Adjustment disorder with mixed a nxiety and depressed mood Problem 11/17/2020 12:00:00 AM EST eCW1 ([facility]) Surgeries/Procedures Procedure Description Date Indications Data Source(s) ECG ROUTINE ECG W/LEAST 12 LDS W/I&R 02/10/2021 12:00: 00 AM EDT [facility] ([facility]) Results ID Date Data Source [id number] 08/25/2021 01:45:00 PM EDT [facility] Name Value Range Interpretation Code Description Data Aminta rce(s) Supporting Document(s) First Visit [facility] RIRIKu0wEmDSEaJfMIRhIzjGDIloKWgeRRXfS0K2URnzNo0KGIeenoDfQXWwHj4+IZDbGN1xky2wLLEl gMy [file] HC9RrimYA0XxVDhB+sAAd53AniKWip5VLe1uhTxgGY8gnSv2WQdd+ELECTRICIAN OUTSIDE/Fxc3cXBtYiKlIpf6AU9mtkC iz9HOc/0qHsEUcC1rkodyYPV4WYIMwGivOHrEn75pa 20J7gsqSY8mtF0nWYqLagpt1bTCqoeWbZLLr0xXz9V93dQOkKPqStBk0Y/Aq3I/fWmT4h8DExvbxe6oE jS3xg9tltbuwwWs7mGLjs4BY6uGL/l4WQu+PW1HR4BydTzUP1yZN5HM5Wlj/c1l3J6ICXZXf+CFXlMP5 w/dSIiyX2qvQgEGYIZhb3J4x2KUGO2ARWnP4CdaI05 NO0UKAMEFzrA4d86xPUnQhCof6pQqxHAX14ohzHnmm9y5UvdIwrBJkDj3K8Ssld7tzwUP3lh1XiDK2U/ KESc58Ml+qgwpyoAgbwRZlG4MKSG1watouyYy11VFXPuBygIHcrlZQ/wU8osdo0XUKRQk7LNjQ1u6IRK aFlvk2Y56PmaTl/WWtteX85wPL5ckWds3yEqCnxrzK Oav4EmzD3UOgFPKKG7w0QzBAwsFhAAfkaXL9eJVFFoPV2Bd9VO5TE15yqLq9xN+xJb4jYuztKMrAzujY lz7ucwIR1qz1xoAyR84Yd9HeKNsDlfmvaa3QlcUuv1p7/Lindsay/Woe6w4nwTFedHSZ+QbNgO2PGZOU4c8G [file] Web Interface Developer+5SjsU6cxqvrm7co9hKKoGY9xZIPEdw8yXcA5Q+jWyBIxHnLfLqB/336YiHY92CIzKSObERGLSwtD+ [file] FSCoE0vloWUoQS1+U+Fno3rP/kpqNe/HxnQfjQ+electronic calibration technician P11cstaJ8bDDMaUzPFHLARqabkZgzPJkZVI33Z2GMXVp9lxDqzZq3E44Vr1kqEx2SzsO8mKaw+fh5nBN nOt4nxEaHN+pQ9/BFUT2asqXkE8/7FahHNWlZ7YFR6vX8j4MzjJTpmoIMBs2htLxfxNt58gDcSGx37cO DsuH4sEb90G0DN07poVz4+W8zePwE3ki5fTSxSPNr/ 3DkxnDwHo1idns0PjKnNtFM1vrf8Hqb/tQr2RhADEcwKbITp6+NXlj6OQ6dKOmqWtZ42/LVewRREnS4z 7IdU6i73sqMnw0t7a8/35av0jzT5CJPSneg78rfKHAJe+EGq7Tqs8zwfInpvRGBkpZQQ5IPlN/ANYr+x x1BfOEo/7oR1iP9lhVWSNSi/UbmmOuVUQbirqN+LZf eeqSmQc/XjI05eApmeCoKeHZmEHIK5wogxWHeqoRzxDD2cOBmC8NvvdXnfllZDW1Nn+/Wlgsm/gsd/ZI vRg5u18WQwCAGzrQRuhFaKIAGhkz3h821GoX1yDES1T5jfdUS8q2uCz3eVpEY5yxIX2fRC+9Y4/WV2KT pCk0T2x86K2i2p5ldLJA08mgdr5v2qZE0ktx8B06QS [file] [place]+ZF9ozjEERmp+5p7NL3z12In7o4+7cI444Mirfh yy7+/NTfwfZOEc74sXM7wXOFkwKn1/2kTH32CxPwZMIV/4Q7j3gh+cJR8im20j9QhdZoj0IxFYnZOH7y 4yREDikimvaItgnEISoxVfq6MjLaDCjfJ0OH6REVNpWNAjvTri25r8rtz86Gj+vbiEtHaFPYZ29RLIx+ fi2J46rNYx6Kwq5i4oiIqrkIgVoxLUQ1BTKZlxt17k 0QnmjJ33gjiFrrr3WGQn0M4LM9nH4ff2b4h4MeYrmPApqwWIsZVvD2D6OMpiAOlew5CSX+eRkzQmyUI/ Am3UFdhunpmlVJ1sbe/djGAHqbQ3lbujuSzCXSTuHkoN6/DsLLao8Lqk1su92QODvxxJkHtyAfLmNEhe +90H1xw1SQnPAbMDlfyoydH9iYE3/pJAWurQxiqw/H DbJ3jVIDgbJSzQAWwUxL73/yrtgsv7njpPrjOouk+wfJKu6TzqTvDywMsy7wDAkFArp8tKQOXgv+FQ5e 732VzCIIbwx7OYZJ+vJ9k+IcKSnmPQhphQDDflqRfLe+at7P+RhVcDvEyYle60bGACcJMAZLpxfRkStK 0FDc/MOLLY/6ty5f5UifQVdFUh4izUf95IQaXy5K5y4k [file] 45Hwe3IlHfxVn0N8++3goOOE/jpld5Aro2vTor/AfRFq04uROX/microwave remote sensing scientist+svaVe2gfSmdpytRoZ1L3jeHZWl [file] E Commerce Manager+VVChJ8/xQJZZm6j7csvZHr3/gv5L+F6ml91LM3RKCknDuyCzlbXRrmzTn2JL6dgNSbwqUlo9fe9R [file] qd26r2jw5UnvNF9ZcGJtC6LrZif+IKNZizfopSmAxs+/yuv4EqUy/orthopedics pediatric physician++xHriWi6/p2oEinfMVh0eenL [file] lUUJ9ZKm+manager food beverage/Qg50AEeaOT0EoMmvujnlUg35y4RlThLRGdf5HGlfy5TRMau08c+ylYBwHPpveLE1g+G [file] Pi6sbC7SxD51JH7cKSlxbcaeW0qy7aX5fVUbSrO5PszN//Miguel Angel+9Uc2i4QQazOONYHMIWT5cVYHpPTI/D [file] eWJB0lBISpyhjiowS6Qc/fiscal clerk+XYcKe/qOMfdtx5yBe [file] rH2mDCVFrSZ+7004SUVSM/ramp service employee+VydHfjUqpU/f1fh+ [file] DENTAL RESIDENT/corUqCoeu8YhQf++z7VrEyV4E4seKIP/bmw+zKH [file] Will+CUUmQXr8TIoD1ONYevZAJ3zaDJLJOaiOL9+gEdC6YLT2cn7DxRNSmWMqzoaNoJqxEZYgwqECgkIxs FNXAWnr9MpC1UL0UYCQVS5B= ID Date Data Source [id number] 08/02/2021 12:17:00 PM EDT [facility] FAX [phone] Name Value Range Interpretation Code Description Data Aminta rce(s) Supporting Document(s) GLUCOSE 169 mg/dL 74-106 H [facility] BLOOD UREA NITROGEN 61 mg/dL 7-18 H [facility] ital CREATININE 2.48 mg/dL 0.6-1.0 H [facility] SODIUM 143 mmol/L 136-145 [facility] POTASSIUM 3.9 mmol/L 3.5-5.1 [facility] CHLORIDE 105 mmol/L 98-107 [facility] CO2 26 mmol/L 21-32 [facility] CALCIUM 9.9 mg/dL 8.5-10.1 [facility] GLOMERULAR FILTRATION RATE 20 mL/min [facility] ED GFR IS CALCULATED IN mL/min/1.73m2 STAS L FUNCTION: >90MILDLY DECREASED: 60-89MILDY TO MODERATELY DECREASED: 45-59 MODERATELY TO SEVERELY DECREASED: 30-44SEVERELY DECREASED: 15-29RENAL FAILURE: <15 ALBUMIN 3.5 gm/dL 3.4-5.0 [facility] PHOSPHOROUS 4.1 mg/dL 2.5-4.9 [facility] ID Date Data Source [id number] 05/21/2021 06:57:00 AM EDT [facility] Name Value Range Interpretation Code Description Data Aminta rce(s) Supporting Document(s) Tacrolimus [Mass/volume] in Blood by LC/MS/MS 3.5 ng/mL 2.0-20.0 [facility] Trough (immediate ly following transplant) 15.0 Trough (steady state, 2 weeks or more after transplant): 3.0 - 8.0 Detection Limit = 1.0 Performed by LC-MS/MS technology. This test was developed and its performance characteristics determined by [employer]. It has not been cleared or approved by the Food and Drug Administration. ID Date Data Source [id number] 05/16/2021 12:04:00 PM EDT [facility] Name Value Range Interpretation Code Description Data Aminta rce(s) Supporting Document(s) CBC W/AUTOMATED DIFF [facility] COMPLETE BLOOD COUNT Leukocytes [#/volume] in Blood by Automated count 5.3 10^3/uL 4.2 - 1 1.0 [facility] Erythrocytes [#/volume] in Blood by Automated count 3.52 10^6/uL 4. 20 - 5.40 L [facility] Hemoglobin [Mass/volume] in Blood 12.4 g/dL 12.0 - 16.0 [facility] Hematocrit [Volume Fraction] of Blood by Automated count 36.3 % 3 7.0 - 47.0 L [facility] Erythrocyte mean corpuscular volume [Entitic volume] b y Automated count 103.1 fL 81.0 - 101 H [facility] Erythrocyte mean corpuscular hemoglobin [Entitic mass] by Automated count 35.2 pg 27.0 - 34.0 H [facility] Erythrocyte mean corpuscular hemoglobin concentration [Mass/volume] by Automated count 34.2 g/dL 31.0 - 36.0 [facility] Erythrocyte distribution width [Ratio] by Automated count 14.0 % 11.5 - 14.5 [facility] Platelets [#/volume] in Blood by Automated count 161 10^3/uL 150 - 45 0 [facility] Platelet mean volume [Entitic volume] in Blood by Automated count 10.7 fL 7.4 - 10.4 H [facility] Neutrophils/100 leukocytes in Blood by Automated count 52.5 % 37. 0 - 80.0 [facility] Lymphocytes/100 leukocytes in Blood by Manual count 33.2 % 25.0 - 40.0 [facility] Monocytes/100 leukocytes in Blood by Automated count 11.6 % 3.0 - 8.0 H [facility] Eosinophils/100 leukocytes in Blood by Automated count 1.9 % 0.0 - 7.0 [facility] Basophils/100 leukocytes in Blood by Automated count 0.4 % 0.0 - 2.5 [facility] %IG 0.4 % 0.0 - 0.0 H [facility] al %NRBC 0.0 % 0.0 - 0.0 [facility] al Neutrophils [#/volume] in Blood by Automated count 2.77 10^3/uL 2.00 - 6.90 [facility] Lymphocytes [#/volume] in Blood by Automated count 1.75 10^3/uL 0.60 - 3.40 [facility] Monocytes [#/volume] in Blood by Automated count 0.61 10^3/uL 0.00 - 0.90 [facility] Eosinophils [#/volume] in Blood by Automated count 0.10 10^3/uL 0.00 - 0.70 [facility] Basophils [#/volume] in Blood by Automated count 0.02 10^3/uL 0.00 - 0.20 [facility] #IG 0.02 10^3/uL 0.00 - 0.10 [facility] ospital #NRBC 0.00 10^3/uL 0.00 - 0.00 [facility] ospital MANUAL DIFF NOT INDICATED [facility] RBC MORPH NOT INDICATED [facility] spital ID Date Data Source [id number] 05/16/2021 12:04:00 PM EDT [facility] Name Value Range Interpretation Code Description Data Aminta rce(s) Supporting Document(s) Lactate dehydrogenase [Enzymatic activity/volume] in Serum o r Plasma 305 U/L 135 - 214 H [facility] ID Date Data Source [id number] 05/16/2021 12:04:00 PM EDT [facility] Name Value Range Interpretation Code Description Data Aminta rce(s) Supporting Document(s) COMPREHENSIVE METABOLIC PANEL [facility] COMPREHENSIVE METABOLIC PANEL Sodium [Moles/volume] in Serum or Plasma 141 mEq/L 134 - 153 [facility] Potassium [Moles/volume] in Serum or Plasma 4.0 mEq/L 3.6 - 5.0 [facility] Chloride [Moles/volume] in Serum or Plasma 102 mEq/L 98 - 107 [facility] Carbon dioxide, total [Moles/volume] in Serum or Plasma 26 MEQ/L 22 - 30 [facility] Glucose [Mass/volume] in Serum or Plasma 280 MG/DL 70 - 99 H [facility] BUN 45 MG/DL 7 - [facility] Creatinine [Mass/volume] in Serum or Plasma 2.0 MG/DL 0.7 - 1.5 H [facility] BUN/CREAT 23 8 - 27 [facility] al Protein [Mass/volume] in Serum or Plasma 5.9 G/DL 6.3 - 8.2 L [facility] Albumin [Mass/volume] in Serum or Plasma 4.1 G/DL 3.9 - 5.0 [facility] Globulin [Mass/volume] in Serum by calculation 1.8 GM/DL 2.4 - 3.2 L [facility] A/G RATIO 2.3 0.8 - 2.0 H [facility] al Calcium [Mass/volume] in Serum or Plasma 10.1 MG/DL 8.4 - 10.2 [facility] Bilirubin.total [Mass/volume] in Serum or Plasma <0.7 MG/DL 0.2 - 1.3 [facility] Alkaline phosphatase [Enzymatic activity/volume] in Serum or Plasma 83 U/L 38 - 126 [facility] Aspartate aminotransferase [Enzymatic activity/volume] in Serum or Plasma 24 U/L 5 - 40 [facility] Alanine aminotransferase [Enzymatic activity/volume] in Seru m or Plasma 46 U/L 7 - 56 [facility] Anion gap 3 in Serum or Plasma 13.0 mmol/L 8.0 - 16.0 [facility] AGE 66 yrs [facility] al NON-AA GFR 27 mL[facility] AMER GFR >60 [facility] Male GFR In terprentation 20-49 [...] >32 mL/min Normal ID Date Data Source [id number] 05/16/2021 12:03:00 PM EDT [facility] Name Value Range Interpretation Code Description Data Aminta rce(s) Supporting Document(s) Magnesium [Mass/volume] in Serum or Plasma 2.1 MG/DL 1.7 - 2.2 [facility] ID Date Data Source [id number] 05/08/2021 05:02:00 PM EDT [facility] Name Value Range Interpretation Code Description Data Aminta rce(s) Supporting Document(s) Tacrolimus [Mass/volume] in Blood by LC/MS/MS 3.2 ng/mL 2.0-20.0 [facility] Trough (immediate ly following transplant) 15.0 Trough (steady state, 2 weeks or more after transplant): 3.0 - 8.0 Detection Limit = 1.0 Performed by LC-MS/MS technology. This test was developed and its performance characteristics determined by [employer]. It has not been cleared or approved by the Food and Drug Administration. ID Date Data Source [id number] 05/04/2021 03:09:00 PM EDT [facility] Name Value Range Interpretation Code Description Data Aminta rce(s) Supporting Document(s) CVE PANEL [facility] al LIPID PANEL Cholesterol [Mass/volume] in Serum or Plasma 231 MG/DL 131 - 200 H [facility] Deprecated Triglyceride [Mass/volume] in Serum or Plasma 341 MG/DL 3 5 - 160 H [facility] HDL 62 MG/DL 29 - 86 [facility] al Cholesterol in LDL [Mass/volume] in Serum or Plasma by Direc t assay 133 mg/dL 65 - 175 [facility] Cholesterol.total/Cholesterol in HDL [Mass Ratio] in Serum o r Plasma 3.7 3.2 - 4.4 [facility] LDL/HDL 2.15 1.47 - 3.22 [facility] ital CVE RISK CHOL/HDL LDL/HDLMEN: 1/2 AVERAGE 3.43 1.00 AVERAGE 4.97 3.55 2X AVERAGE 9.55 6.25 3X AVERAGE 23.99 7.99WOMEN: 1/2 AVERAGE 3.27 1.47 AVERAGE 4.44 3.22 2X AVERAGE 7.05 5.03 3X AVERAGE 11.04 6.14 ID Date Data Source [id number] 05/04/2021 03:08:00 PM EDT [facility] Name Value Range Interpretation Code Description Data Aminta rce(s) Supporting Document(s) Magnesium [Mass/volume] in Serum or Plasma 2.6 MG/DL 1.7 - 2.2 H [facility] ID Date Data Source [id number] 05/04/2021 03:08:00 PM EDT [facility] Name Value Range Interpretation Code Description Data Aminta rce(s) Supporting Document(s) COMPREHENSIVE METABOLIC PANEL [facility] COMPREHENSIVE METABOLIC PANEL Sodium [Moles/volume] in Serum or Plasma 140 mEq/L 134 - 153 [facility] Potassium [Moles/volume] in Serum or Plasma 4.0 mEq/L 3.6 - 5.0 [facility] Chloride [Moles/volume] in Serum or Plasma 100 mEq/L 98 - 107 [facility] Carbon dioxide, total [Moles/volume] in Serum or Plasma 27 MEQ/L 22 - 30 [facility] Glucose [Mass/volume] in Serum or Plasma 161 MG/DL 70 - 99 H [facility] BUN 53 MG/DL 7 - 21 H [facility] al Creatinine [Mass/volume] in Serum or Plasma 2.5 MG/DL 0.7 - 1.5 H [facility] BUN/CREAT 21 8 - 27 [facility] Protein [Mass/volume] in Serum or Plasma 5.9 G/DL 6.3 - 8.2 L [facility] Albumin [Mass/volume] in Serum or Plasma 3.9 G/DL 3.9 - 5.0 [facility] Globulin [Mass/volume] in Serum by calculation 2.0 GM/DL 2.4 - 3.2 L [facility] A/G RATIO 2.0 0.8 - 2.0 [facility] Calcium [Mass/volume] in Serum or Plasma 10.5 MG/DL 8.4 - 10.2 H [facility] Bilirubin.total [Mass/volume] in Serum or Plasma <0.7 MG/DL 0.2 - 1.3 [facility] Alkaline phosphatase [Enzymatic activity/volume] in Serum or Plasma 68 U/L 38 - 126 [facility] Aspartate aminotransferase [Enzymatic activity/volume] in Serum or Plasma 31 U/L 5 - 40 [facility] Alanine aminotransferase [Enzymatic activity/volume] in Seru m or Plasma 51 U/L 7 - 56 [facility] Anion gap 3 in Serum or Plasma 13.0 mmol/L 8.0 - 16.0 [facility] AGE 66 [facility] 21 mL/min [facility] AFR AMER GFR >60 [facility] Male GFR In terprentation 20-49 [...] >32 mL/min Normal ID Date Data Source [id number] 05/04/2021 02:45:00 PM EDT [facility] Name Value Range Interpretation Code Description Data Aminta rce(s) Supporting Document(s) CBC W/AUTOMATED DIFF [facility] COMPLETE BLOOD COUNT Leukocytes [#/volume] in Blood by Automated count 5.9 10^3/uL 4.2 - 1 1.0 [facility] Erythrocytes [#/volume] in Blood by Automated count 3.53 10^6/uL 4. 20 - 5.40 L [facility] Hemoglobin [Mass/volume] in Blood 12.5 g/dL 12.0 - 16.0 [facility] Hematocrit [Volume Fraction] of Blood by Automated count 36.6 % 3 7.0 - 47.0 L [facility] Erythrocyte mean corpuscular volume [Entitic volume] b y Automated count 103.7 fL 81.0 - 101 H [facility] Erythrocyte mean corpuscular hemoglobin [Entitic mass] by Automated count 35.4 pg 27.0 - 34.0 H [facility] Erythrocyte mean corpuscular hemoglobin concentration [Mass/volume] by Automated count 34.2 g/dL 31.0 - 36.0 [facility] Erythrocyte distribution width [Ratio] by Automated count 14.0 % 11.5 - 14.5 [facility] Platelets [#/volume] in Blood by Automated count 130 10^3/uL 150 - 45 0 L [facility] Platelet mean volume [Entitic volume] in Blood by Automated count 11.2 fL 7.4 - 10.4 H [facility] Neutrophils/100 leukocytes in Blood by Automated count 58.0 % 37. 0 - 80.0 [facility] Lymphocytes/100 leukocytes in Blood by Manual count 28.9 % 25.0 - 40.0 [facility] Monocytes/100 leukocytes in Blood by Automated count 10.9 % 3.0 - 8.0 H [facility] Eosinophils/100 leukocytes in Blood by Automated count 1.4 % 0.0 - 7.0 [facility] Basophils/100 leukocytes in Blood by Automated count 0.3 % 0.0 - 2.5 [facility] %IG 0.5 % 0.0 - 0.0 H [facility] al %NRBC 0.0 % 0.0 - 0.0 [facility] al Neutrophils [#/volume] in Blood by Automated count 3.42 10^3/uL 2.00 - 6.90 [facility] Lymphocytes [#/volume] in Blood by Automated count 1.70 10^3/uL 0.60 - 3.40 [facility] Monocytes [#/volume] in Blood by Automated count 0.64 10^3/uL 0.00 - 0.90 [facility] Eosinophils [#/volume] in Blood by Automated count 0.08 10^3/uL 0.00 - 0.70 [facility] Basophils [#/volume] in Blood by Automated count 0.02 10^3/uL 0.00 - 0.20 [facility] #IG 0.03 10^3/uL 0.00 - 0.10 [facility] ospital #NRBC 0.00 10^3/uL 0.00 - 0.00 [facility] H ospital MANUAL DIFF NOT INDICATED [facility] RBC MORPH NOT INDICATED [facility] Ho spital ID Date Data Source [id number] 04/06/2021 09:34:46 AM EDT [facility] Name Value Range Interpretation Code Description Data Aminta rce(s) Supporting Document(s) Tacrolimus [Mass/volume] in Blood 2.3 ng/mL [facility] Renal Transplant Target ValuesImmediate post-transplant: 10 - 15 ng/mL First 6 months: 6 - 15 ng/mL Greater than 6 months: 6 - 15 ng/mL ID Date Data Source Ionized Calcium 02/18/2021 12:00:00 AM EDT [facility] ([facility]) Name Value Range Interpretation Code Description Data Aminta rce(s) Supporting Document(s) 4.9 4.5-5.3 IONIZED CALCIUM eCW1 ([facility]) ID Date Data Source [id number] 01/30/2021 04:05:00 PM EDT [facility] ([facility]) Name Value Range Interpretation Code Description Data Aminta rce(s) Supporting Document(s) Troponin Laboratory test result [facility] ([facility]) ID Date Data Source [id number] 01/30/2021 04:05:00 PM EDT [facility] ([facility]) Name Value Range Interpretation Code Description Data Aminta rce(s) Supporting Document(s) White Blood Count 6.4 5.0-10.0 [facility] ([facility]) Platelets 133 172-450 [facility] Red Blood Count 3.58 4.00-5.40 [facility] ([facility]) Hemoglobin 12.2 [facility] ([facility]) Hematocrit 36.2 [facility] ([facility]) ID Date Data Source [id number] 10/07/2020 09:04:00 PM [facility] Name Value Range Interpretation Code Description Data Aminta rce(s) Supporting Document(s) Tacrolimus [Mass/volume] in Blood by LC/MS/MS 2.6 ng/mL 2.0-20.0 [facility] Trough (immediate ly following transplant) 15.0 Trough (steady state, 2 weeks or more after transplant): 3.0 - 8.0 Detection Limit = 1.0 Performed by LC-MS/MS technology. This test was developed and its performance characteristics determined by [employer]. It has not been cleared or approved by the Food and Drug Administration. ID Date Data Source [id number] 10/05/2020 02:29:00 PM [facility] Name Value Range Interpretation Code Description Data Aminta rce(s) Supporting Document(s) COMPREHENSIVE METABOLIC PANEL [facility] COMPREHENSIVE METABOLIC PANEL Sodium [Moles/volume] in Serum or Plasma 137 mEq/L 134 - 153 [facility] Potassium [Moles/volume] in Serum or Plasma 4.4 mEq/L 3.6 - 5.0 [facility] Chloride [Moles/volume] in Serum or Plasma 98 mEq/L 98 - 107 [facility] Carbon dioxide, total [Moles/volume] in Serum or Plasma 26 MEQ/L 22 - 30 [facility] Glucose [Mass/volume] in Serum or Plasma 88 MG/DL 65 - 110 [facility] BUN 30 MG/DL 7 - 21 H [facility] Creatinine [Mass/volume] in Serum or Plasma 1.3 MG/DL 0.7 - 1.5 [facility] BUN/CREAT 23 8 - 27 [facility] Protein [Mass/volume] in Serum or Plasma 6.2 G/DL 6.3 - 8.2 L [facility] Albumin [Mass/volume] in Serum or Plasma 4.2 G/DL 3.9 - 5.0 [facility] Globulin [Mass/volume] in Serum by calculation 2.0 GM/DL 2.4 - 3.2 L [facility] A/G RATIO 2.1 0.8 - 2.0 H [facility] Calcium [Mass/volume] in Serum or Plasma 10.1 MG/DL 8.4 - 10.2 [facility] Bilirubin.total [Mass/volume] in Serum or Plasma <0.7 MG/DL 0.2 - 1.3 [facility] Alkaline phosphatase [Enzymatic activity/volume] in Serum or Plasma 91 U/L 38 - 126 [facility] Aspartate aminotransferase [Enzymatic activity/volume] in Serum or Plasma 25 U/L 5 - 40 [facility] Alanine aminotransferase [Enzymatic activity/volume] in Seru m or Plasma 34 U/L 7 - 56 [facility] Anion gap 3 in Serum or Plasma 13.0 mmol/L 8.0 - 16.0 [facility] AGE 65 yrs [facility] al NON-AA GFR 44 mL/min [facility] AFR AMER GFR >60 [facility] Male GFR In terprentation 20-49 [...] >32 mL/min Normal ID Date Data Source [id number] 10/05/2020 02:29:00 PM [facility] Name Value Range Interpretation Code Description Data Aminta rce(s) Supporting Document(s) Lactate dehydrogenase [Enzymatic activity/volume] in Serum o r Plasma 293 U/L 135 - 214 H [facility] ID Date Data Source [id number] 10/05/2020 02:27:00 PM [facility] Name Value Range Interpretation Code Description Data Aminta rce(s) Supporting Document(s) Magnesium [Mass/volume] in Serum or Plasma 1.9 MG/DL 1.7 - 2.2 [facility] ID Date Data Source [id number] 10/05/2020 01:58:00 PM [facility] Name Value Range Interpretation Code Description Data Aminta rce(s) Supporting Document(s) CBC W/AUTOMATED DIFF [facility] COMPLETE BLOOD COUNT Leukocytes [#/volume] in Blood by Automated count 6.5 10^3/uL 4.2 - 1 1.0 [facility] Erythrocytes [#/volume] in Blood by Automated count 3.73 10^6/uL 4. 20 - 5.40 L [facility] Hemoglobin [Mass/volume] in Blood 12.5 g/dL 12.0 - 16.0 [facility] Hematocrit [Volume Fraction] of Blood by Automated count 36.5 % 3 7.0 - 47.0 L [facility] Erythrocyte mean corpuscular volume [Entitic volume] by Auto mated count 97.9 fL 81.0 - 101 [facility] Erythrocyte mean corpuscular hemoglobin [Entitic mass] by Automated count 33.5 pg 27.0 - 34.0 [facility] Erythrocyte mean corpuscular hemoglobin concentration [Mass/volume] by Automated count 34.2 g/dL 31.0 - 36.0 [facility] Erythrocyte distribution width [Ratio] by Automated count 13.6 % 11.5 - 14.5 [facility] Platelets [#/volume] in Blood by Automated count 181 10^3/uL 150 - 45 0 [facility] Platelet mean volume [Entitic volume] in Blood by Automated count 9.9 fL 7.4 - 10.4 [facility] Neutrophils/100 leukocytes in Blood by Automated count 58.2 % 37. 0 - 80.0 [facility] Lymphocytes/100 leukocytes in Blood by Manual count 28.0 % 25.0 - 40.0 [facility] Monocytes/100 leukocytes in Blood by Automated count 11.1 % 3.0 - 8.0 H [facility] Eosinophils/100 leukocytes in Blood by Automated count 2.2 % 0.0 - 7.0 [facility] Basophils/100 leukocytes in Blood by Automated count 0.3 % 0.0 - 2.5 [facility] %IG 0.2 % 0.0 - 0.0 [facility] %[facility] 0.0 % 0.0 - 0.0 [facility] al Neutrophils [#/volume] in Blood by Automated count 3.79 10^3/uL 2.00 - 6.90 [facility] Lymphocytes [#/volume] in Blood by Automated count 1.82 10^3/uL 0.60 - 3.40 [facility] Monocytes [#/volume] in Blood by Automated count 0.72 10^3/uL 0.00 - 0.90 [facility] Eosinophils [#/volume] in Blood by Automated count 0.14 10^3/uL 0.00 - 0.70 [facility] Basophils [#/volume] in Blood by Automated count 0.02 10^3/uL 0.00 - 0.20 [facility] #IG 0.01 10^3/uL 0.00 - 0.10 [facility] ospital #NRBC 0.00 10^3/uL 0.00 - 0.00 [facility] ospital MANUAL DIFF NOT INDICATED [facility] RBC MORPH NOT INDICATED [facility] Ho spital ID Date Data Source [id number] 09/05/2020 08:12:34 AM EDT [facility] Name Value Range Interpretation Code Description Data Aminta rce(s) Supporting Document(s) Progress Note [facility] [id number] lbm [file] [id number]Ux== ID Date Data Source [id number] 09/06/2020 07:27:46 AM EST [facility] Name Value Range Interpretation Code Description Data Aminta rce(s) Supporting Document(s) Specimen source [Identifier] of Unspecified specimen [facility] SARS-CoV-2 RNA 2018 nCoV Real-Time RT-PCR: NOT DETECTED [facility] Assay Performed [facility] 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[facility] Patient has symptoms related to [facility] When did you start to experience these symptoms [Date and time] [Phen X] [facility] Patient was hospitalized because of this condition [facility] patient was admitted to ICU for [facility] Patient resides in a congregate care setting [facility] status [facility] ID Date Data Source [id number] 09/05/2020 08:12:00 AM EDT [facility] Name Value Range Interpretation Code Description Data Aminta rce(s) Supporting Document(s) SARS-CoV-2 RNA [facility] This lab was ordered by [facility] and reported by [facility]. ID Date Data Source [id number] 09/02/2020 06:12:00 PM [facility] Value Range Interpretation Code Description Data Aminta rce(s) Supporting Document(s) Tacrolimus [Mass/volume] in Blood by LC/MS/MS 3.4 ng/mL 2.0-20.0 [facility] Trough (immediate ly following transplant) 15.0 Trough (steady state, 2 weeks or more after transplant): 3.0 - 8.0 Detection Limit = 1.0 Performed by LC-MS/MS technology. This test was developed and its performance characteristics determined by [employer]. It has not been cleared or approved by the Food and Drug Administration. ID Date Data Source [id number] 08/31/2020 02:11:00 PM [facility] Value Range Interpretation Code Description Data Aminta rce(s) Supporting Document(s) Lactate dehydrogenase [Enzymatic activity/volume] in Serum o r Plasma 275 U/L 135 - 214 H [facility] ID Date Data Source [id number] 08/31/2020 02:11:00 PM EDT [facility] Name Value Range Interpretation Code Description Data Aminta [facility](s) Supporting Document(s) COMPREHENSIVE METABOLIC PANEL [facility] COMPREHENSIVE METABOLIC PANEL Sodium [Moles/volume] in Serum or Plasma 137 mEq/L 134 - 153 [facility] Potassium [Moles/volume] in Serum or Plasma 4.2 mEq/L 3.6 - 5.0 [facility] Chloride [Moles/volume] in Serum or Plasma 99 mEq/L 98 - 107 [facility] Carbon dioxide, total [Moles/volume] in Serum or Plasma 28 MEQ/L 22 - 30 [facility] Glucose [Mass/volume] in Serum or Plasma 142 MG/DL 65 - 110 H [facility] BUN 34 [facility]DL 7 - [facility] Creat[facility] [Mass/volume] in Serum or Plasma 1.4 MG/DL 0.7 - 1.5 [facility] BUN/CREAT 24 8 - 27 [facility] al Protein [Mass/volume] in Serum or Plasma 6.3 G/DL 6.3 - 8.2 [facility] Albumin [Mass/volume] in Serum or Plasma 4.1 G/DL 3.9 - 5.0 [facility] Globulin [Mass/volume] in Serum by calculation 2.2 GM/DL 2.4 - 3.2 L [facility] A/G RATIO 1.9 0.8 - 2.0 [facility] Calcium [Mass/volume] in Serum or Plasma 10.0 MG/DL 8.4 - 10.2 [facility] Bilirubin.total [Mass/volume] in Serum or Plasma <0.7 MG/DL 0.2 - 1.3 [facility] Alkaline phosphatase [Enzymatic activity/volume] in Serum or Plasma 94 U/L 38 - 126 [facility] Aspartate aminotransferase [Enzymatic activity/volume] in Serum or Plasma 22 U/L 5 - 40 [facility] Alanine aminotransferase [Enzymatic activity/volume] in Seru m or Plasma 31 U/L 7 - 56 [facility] Anion gap 3 in Serum or Plasma 10.0 mmol/L 8.0 - 16.0 [facility] AGE 65 yrs [facility] NON-AA GFR 40 mL/min [facility] costa AFR AMER GFR >60 [facility] Male GFR In terprentation 20-49 [...] >32 mL/min Normal ID Date Data Source [id number] 08/31/2020 02:11:00 PM EDT [facility] Name Value Range Interpretation Code Description Data Aminta rce(s) Supporting Document(s) Magnesium [Mass/volume] in Serum or Plasma 1.9 MG/DL 1.7 - 2.2 [facility] ID Date Data Source [id number] 08/31/2020 01:41:00 PM EDT [facility] Name Value Range Interpretation Code Description Data Aminta rce(s) Supporting Document(s) CBC W/AUTOMATED DIFF [facility] COMPLETE BLOOD COUNT Leukocytes [#/volume] in Blood by Automated count 5.7 10^3/uL 4.2 - 1 1.0 [facility] Erythrocytes [#/volume] in Blood by Automated count 3.67 10^6/uL 4. 20 - 5.40 L [facility] Hemoglobin [Mass/volume] in Blood 12.5 g/dL 12.0 - 16.0 [facility] Hematocrit [Volume Fraction] of Blood by Automated count 35.9 % 3 7.0 - 47.0 L [facility] Erythrocyte mean corpuscular volume [Entitic volume] by Auto mated count 97.8 fL 81.0 - 101 [facility] Erythrocyte mean corpuscular hemoglobin [Entitic mass] by Automated count 34.1 pg 27.0 - 34.0 H [facility] Erythrocyte mean corpuscular hemoglobin concentration [Mass/volume] by Automated count 34.8 g/dL 31.0 - 36.0 [facility] Erythrocyte distribution width [Ratio] by Automated count 13.4 % 11.5 - 14.5 [facility] Platelets [#/volume] in Blood by Automated count 159 10^3/uL 150 - 45 0 [facility] Platelet mean volume [Entitic volume] in Blood by Automated count 10.3 fL 7.4 - 10.4 [facility] Neutrophils/100 leukocytes in Blood by Automated count 61.6 % 37. 0 - 80.0 [facility] Lymphocytes/100 leukocytes in Blood by Manual count 24.6 % 25.0 - 40.0 L [facility] Monocytes/100 leukocytes in Blood by Automated count 10.5 % 3.0 - 8.0 H [facility] Eosinophils/100 leukocytes in Blood by Automated count 2.8 % 0.0 - 7.0 [facility] Basophils/100 leukocytes in Blood by Automated count 0.3 % 0.0 - 2.5 [facility] %IG 0.2 % 0.0 - 0.0 H [facility] al %NRBC 0.0 % 0.0 - 0.0 [facility] al Neutrophils [#/volume] in Blood by Automated count 3.54 10^3/uL 2.00 - 6.90 [facility] Lymphocytes [#/volume] in Blood by Automated count 1.41 10^3/uL 0.60 - 3.40 [facility] Monocytes [#/volume] in Blood by Automated count 0.60 10^3/uL 0.00 - 0.90 [facility] Eosinophils [#/volume] in Blood by Automated count 0.16 10^3/uL 0.00 - 0.70 [facility] Basophils [#/volume] in Blood by Automated count 0.02 10^3/uL 0.00 - 0.20 [facility] #IG 0.01 10^3/uL 0.00 - 0.10 [facility] #NRBC 0.00 10^3/uL 0.00 - 0.00 [facility] MANUAL DIFF NOT INDICATED [facility] RBC MORPH NOT INDICATED [facility] ID Date Data Source [id number] 08/18/2020 10:36:26 AM EDT [facility] Name Value Range Interpretation Code Description Data Aminta rce(s) Supporting Document(s) Progress Note [facility] HEVOXb3jGbAGYmRt80/XTKwsEOPdh9ItFUeuJWk1QMqeMRDxO2PbCEB9cZ7jGEE4EGgYAtQyYxYyQQGl m [file] ICAgICAgICAgICAgICAgICAgICAgICAgICAgICAgICAgICAgICAgICAgICAgICAgICAgICAgICAgICAg ICAgICAgICAgICAgICAgICAgICAgDQogICAgICAgICAgICAgICAgICAgICAgICAgICAgICAgICAgICAg ICAgICAgICAgICAgICAgICAgICAgICAgICAgICAgIC AgICAgICAgICAgICAgICAgICAgICAgICAgICAgICAgDQogICAgICAgICAgICAgICAgICAgICAgICAgIC AgICAgICAgICAgICAgICAgICAgICAgICAgICAgICAgICAgICAgICAgICAgICAgICAgICAgICAgICAgIC AgICAgICAgICAgICAgDQogICAgICAgICAgICAgICAg ICAgICAgICAgICAgICAgICAgICAgICAgICAgICAgICAgICAgICAgICAgICAgICAgICAgICAgICAgICAg ICAgICAgICAgICAgICAgICAgICAgICAgDQogICAgICAgICAgICAgICAgICAgICAgICAgICAgICAgICAg ICAgICAgICAgICAgICAgICAgICAgICAgICAgICAgIC AgICAgICAgICAgICAgICAgICAgICAgICAgICAgICAgICAgDQogICAgICAgICAgICAgICAgICAgICAgIC AgICAgICAgICAgICAgICAgICAgICAgICAgICAgICAgICAgICAgICAgICAgICAgICAgICAgICAgICAgIC AgICAgICAgICAgICAgICAgDQogICAgICAgICAgICAg ICAgICAgICAgICAgICAgICAgICAgICAgICAgICAgICAgICAgICAgICAgICAgICAgICAgICAgICAgICAg ICAgICAgICAgICAgICAgICAgICAgICAgICAgDQogICAgICAgICAgICAgICAgICAgICAgICAgICAgICAg ICAgICAgICAgICAgICAgICAgICAgICAgICAgICAgIC AgICAgICAgICAgICAgICAgICAgICAgICAgICAgICAgICAgICAgDQogICAgICAgICAgICAgICAgICAgIC AgICAgICAgICAgICAgICAgICAgICAgICAgICAgICAgICAgICAgICAgICAgICAgICAgICAgICAgICAgIC AgICAgICAgICAgICAgICAgICAgDQogICAgICAgICAg ICAgICAgICAgICAgICAgICAgICAgICAgICAgICAgICAgICAgICAgICAgICAgICAgICAgICAgICAgICAg SKVvJSHnTZVtFNMzUSQmLONgXACxOIUdDWDhEAVtPQl4G4rfFOBqTPGqAS3ySCj0Ta0+DQoNCmVuZHN0 jsAphF2FPD4oi0MuPAogIQKdu6SsNVj9GP1VLAOpAW vaPG7FFQvqmi5OHMSgWCMewGGQt5ewAkQgMSD4LPKjPplbTD9YVXRdZ0ojvcAlNYJwXOPVKT9LQuZvG5 ShkI20PNFKXg1+INeyeoJlDmyKJrP4GCBjb6IbFIu2CO2UTZDcJirlc2FdIlBxZYTPISuiHQ1ECAG7EN AsRUZoHy5HQMVeT297znBnVP3HJj1OJjNxLR1wyg9P CbHoNPKpGszISkv4BDjiBH7SmOEcFSySxq8bayYgjeGOg3UwppRfdLCHUYOhrHRALIRyBOCxGCgbGTRM EkFipXHnIR2xQl3kDYXpNARxNbUjYEXDQV6AZEOsXEVdzDWxOQIpVEGAEX6HRVcyWES3NWQkbzNupQWb UHnjOR5HGNUmzsJzKSipWBSFJOk+Vb9AEE5ku9QjJX lqAKUyYV7xke4SNJsLWzGhW2S7zJPpM4C0URepGs3PBWXrAXUcIRjvYUJXAZxqOS6DGH3cqoG1KU0IuL KsVYDoHIFpoWAeSDg2W48azUTlUHntHA4IVQY+Jovita+Wf9ZYKIhPHWvWGPgUnJfELXJAxGqT7RnS3GBb1 XeA3ZiEK00yThuexJuIHkhTV1JEO9bOSLnIOCDPU8T dXUcvV7rsmPjDUHjCNSUYcSlI02utKAhJCCjIUE5YVNjMr9DOVWaO7ZgdcStoDzpkxQiVHPcMRLRUJ1C QOdiabCuqFIzvKvtPS00rWlaZV0VIn4RXiMtGI5wth1VdGPjUk0REKMtEb1BDJMtBGMaCKAzVAP6RKOj FyZuXTogOPKzDIEdEZP5ERZqQDOhUT0BSyIvKKMmKO bePXDuQQOnBQAtju0PROMpSEOuTLimWDAaKTTeOOGsZBggLNUxRNQfCHP0IPTeURFkTS8HUfAoYXKgXF PcRntwZKOqGGMaqx1SOUDjZATdCtUrXqTfNLDuHPXdHAcsPEAnFRTjVGpfKCLgWNBgHP4LXvQkKLNmFQ WuZDfnSYLvGVHceu8MMAOwDJZsItV9MlEuWCTaOEKj KEyoYHTcWNK2NHC0ISEmATDgPS6ZJdBiHSJdLXS5KhkvTCKnIVEbtr7BVVJwJHCpYXsiBJWuUXJmENEx VWvsRQPyHTE0XnM7NYEzWIFlOL7TOgLwVRGxMXT5DVCgVDSrQHLikz0OFFLhQCXqAld4NVQgPEZqYCGq LSkyNXXhPUM9HOO2FBChSDPjEB2XVeIaIGPpAWcqSQ SsKHGyEMDcss8YXXQyPLBsNeK9IGHuQYUbMHSwLGhrTWQiUYA0AAV8JSMpFSKzXE2QKuDqUTXqTMgwEE ynNLWaCBAhqd9ACSNvRMQwTYO1BCRhGWMlLLRmWPc9yhIekASbVJd8ZS6BB1TqapVtRdLKRl2Lv802UH TrRLXeFz5SB0qwMw6yRAAkLKNPCa3VIQx1ZIR0KSA4 G6SjPOptY8H5OkCgZNFvRsrjYfgsTlu1YzA+WBeuBND5FLN3N7J1IICsCVPoQJJ3BDXiV5R1W8W4TUhz ZL6dJOCFMb7+TBciaEUnxItqDTSNYeB9BDi3KQdwALDMEa9E ID Date Data Source [id number] 08/19/2020 11:46:01 AM EDT [facility] Value Range Interpretation Code Description Data Aminta rce(s) Supporting Document(s) Specimen source [Identifier] of Unspecified specimen [facility] SARS-CoV-2 RNA 2018 nCoV Real-Time RT-PCR: NOT DETECTED [facility] Assay Performed [facility] Initial validation was performed by the Centers for Disease Control and Prevention (CDC) and additionally validated by the Dept. of Pathology [facility]. Negative results do not preclude SARS-CoV-2 infection and should not be used as the sole basis for patient management decisions.Additional information is available on the following FDA websites for health care providers and patients. https://www.fda.gov/media/916668/download, https://www.fda.gov/media/857687/download. 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[facility] Patient has symptoms related to condition [facility] When did you start to experience these symptoms [Date and time] [Phen X] [facility] Patient was hospitalized because of this condition [facility] patient was admitted to ICU for [facility] Patient resides in a congregate care setting [facility] status [facility] ID Date Data Source [id number] 08/18/2020 10:36:00 AM EDT [facility] Name Value Range Interpretation Code Description Data Aminta rce(s) Supporting Document(s) SARS-CoV-2 RNA [facility] This lab was ordered by [facility] and reported by [facility]. ID Date Data Source [id number] 07/10/2020 09:43:00 PM EDT [facility] Name Value Range Interpretation Code Description Data Aminta rce(s) Supporting Document(s) Tacrolimus [Mass/volume] in Blood by LC/MS/MS 1.9 ng/mL 2.0-20.0 L [facility] Trough (immediate ly following transplant) 15.0 Trough (steady state, 2 weeks or more after transplant): 3.0 - 8.0 Detection Limit = 1.0 Performed by LC-MS/MS technology. This test was developed and its performance characteristics determined by [employer]. It has not been cleared or approved by the Food and Drug Administration. ID Date Data Source [id number] 07/07/2020 01:33:00 PM [facility] Name Value Range Interpretation Code Description Data Aminta rce(s) Supporting Document(s) Lactate dehydrogenase [Enzymatic activity/volume] in Serum o r Plasma 301 U/L 135 - 214 H [facility] ID Date Data Source [id number] 07/07/2020 01:33:00 PM T [facility] Name Value Range Interpretation Code Description Data Aminta rce(s) Supporting Document(s) COMPREHENSIVE METABOLIC PANEL [facility] COMPREHENSIVE METABOLIC PANEL Sodium [Moles/volume] in Serum or Plasma 135 mEq/L 134 - 153 [facility] Potassium [Moles/volume] in Serum or Plasma 4.3 mEq/L 3.6 - 5.0 [facility] Chloride [Moles/volume] in Serum or Plasma 99 mEq/L 98 - 107 [facility] Carbon dioxide, total [Moles/volume] in Serum or Plasma 24 MEQ/L 22 - 30 [facility] Glucose [Mass/volume] in Serum or Plasma 92 MG/DL 65 - 110 [facility] BUN 34 MG/DL 7 - 21 H [facility] Creatinine [Mass/volume] in Serum or Plasma 1.5 MG/DL 0.7 - 1.5 [facility] BUN/CREAT 23 8 - [facility] [Mass/volume] in Serum or Plasma 5.9 G/DL 6.3 - 8.2 L [facility] Albumin [Mass/volume] in Serum or Plasma 3.9 G/DL 3.9 - 5.0 [facility] Globulin [Mass/volume] in Serum by calculation 2.0 GM/DL 2.4 - 3.2 L [facility] A/G RATIO 2.0 0.8 - 2.0 [facility] Calcium [Mass/volume] in Serum or Plasma 9.7 MG/DL 8.4 - 10.2 [facility] Bilirubin.total [Mass/volume] in Serum or Plasma <0.7 MG/DL 0.2 - 1.3 [facility] Alkaline phosphatase [Enzymatic activity/volume] in Serum or Plasma 91 U/L 38 - 126 [facility] Aspartate aminotransferase [Enzymatic activity/volume] in Serum or Plasma 23 U/L 5 - 40 [facility] Alanine aminotransferase [Enzymatic activity/volume] in Seru m or Plasma 29 U/L 7 - 56 [facility] Anion gap 3 in Serum or Plasma 12.0 mmol/L 8.0 - 16.0 [facility] AGE 65 yrs [facility] al NON-AA GFR 37 mL[facility]min [facility] AMER GFR >60 [facility] Male GFR In terprentation 20-49 [...] >32 mL/min Normal ID Date Data Source [id number] 07/07/2020 01:23:00 PM EDT [facility] Name Value Range Interpretation Code Description Data Aminta rce(s) Supporting Document(s) Magnesium [Mass/volume] in Serum or Plasma 1.7 MG/DL 1.7 - 2.2 [facility] ID Date Data Source [id number] 07/07/2020 01:16:00 PM EDT [facility] Name Value Range Interpretation Code Description Data Aminta rce(s) Supporting Document(s) CBC W/AUTOMATED DIFF [facility] COMPLETE BLOOD COUNT Leukocytes [#/volume] in Blood by Automated count 5.6 10^3/uL 4.2 - 1 1.0 [facility] Erythrocytes [#/volume] in Blood by Automated count 3.27 10^6/uL 4. 20 - 5.40 L [facility] Hemoglobin [Mass/volume] in Blood 11.0 g/dL 12.0 - 16.0 L [facility] Hematocrit [Volume Fraction] of Blood by Automated count 31.9 % 3 7.0 - 47.0 L [facility] Erythrocyte mean corpuscular volume [Entitic volume] by Auto mated count 97.6 fL 81.0 - 101 [facility] Erythrocyte mean corpuscular hemoglobin [Entitic mass] by Automated count 33.6 pg 27.0 - 34.0 [facility] Erythrocyte mean corpuscular hemoglobin concentration [Mass/volume] by Automated count 34.5 g/dL 31.0 - 36.0 [facility] Erythrocyte distribution width [Ratio] by Automated count 13.3 % 11.5 - 14.5 [facility] Platelets [#/volume] in Blood by Automated count 150 10^3/uL 150 - 45 0 [facility] Platelet mean volume [Entitic volume] in Blood by Automated count 10.0 fL 7.4 - 10.4 [facility] Neutrophils/100 leukocytes in Blood by Automated count 60.9 % 37. 0 - 80.0 [facility] Lymphocytes/100 leukocytes in Blood by Manual count 24.6 % 25.0 - 40.0 L [facility] Monocytes/100 leukocytes in Blood by Automated count 11.2 % 3.0 - 8.0 H [facility] Eosinophils/100 leukocytes in Blood by Automated count 2.7 % 0.0 - 7.0 [facility] Basophils/100 leukocytes in Blood by Automated count 0.4 % 0.0 - 2.5 [facility] %IG 0.2 % 0.0 - 0.0 [facility] 0.0 % 0.0 - 0.[facility] Neutrophils [#/volume] in Blood by Automated count 3.43 10^3/uL 2.00 - 6.90 [facility] Lymphocytes [#/volume] in Blood by Automated count 1.38 10^3/uL 0.60 - 3.40 [facility] Monocytes [#/volume] in Blood by Automated count 0.63 10^3/uL 0.00 - 0.90 [facility] Eosinophils [#/volume] in Blood by Automated count 0.15 10^3/uL 0.00 - 0.70 [facility] Basophils [#/volume] in Blood by Automated count 0.02 10^3/uL 0.00 - 0.20 [facility] #IG 0.01 10^3/uL 0.00 - 0.10 [facility] #NRBC 0.00 10^3/uL 0.00 - 0.00 [facility] MANUAL DIFF NOT INDICATED [facility] RBC MORPH NOT INDICATED [facility] Procedure Social History Code Duration Value Status Description Data Source(s ) Smoking 08/11/2021 12:00:00 AM EDT Never Smoker completed Never S moker eCW1 ([facility]) Smoking 05/11/2021 12:00:00 AM EDT Never Smoker completed Never S moker eCW1 ([facility]) Smoking 05/11/2021 12:00:00 AM EDT Never Smoker completed Never S moker eCW1 ([facility]) Smoking 05/11/2021 12:00:00 AM EDT Never Smoker completed Never S moker eCW1 ([facility]) Smoking 05/11/2021 12:00:00 AM EDT Never Smoker completed Never S moker eCW1 ([facility]) Smoking 05/04/2021 12:00:00 AM EDT Never Smoker completed Never S moker eCW1 ([facility]) Smoking 05/04/2021 12:00:00 AM EDT Never Smoker completed Never S moker eCW1 ([facility]) Smoking 04/01/2021 12:00:00 AM EDT Never Smoker completed Never S moker eCW1 ([facility]) Smoking 04/01/2021 12:00:00 AM EDT Never Smoker completed Never S moker eCW1 ([facility]) Smoking 04/01/2021 12:00:00 AM EDT Never Smoker completed Never S moker eCW1 ([facility]) Smoking 04/01/2021 12:00:00 AM EDT Never Smoker completed Never S moker eCW1 ([facility]) Smoking 04/01/2021 12:00:00 AM EDT Never Smoker completed Never S moker eCW1 ([facility]) Smoking 03/04/2021 12:00:00 AM EDT Never Smoker completed Never S moker eCW1 ([facility]) Smoking 03/04/2021 12:00:00 AM EDT Never Smoker completed Never S moker eCW1 ([facility]) Smoking 03/04/2021 12:00:00 AM EDT Never Smoker completed Never S moker eCW1 ([facility]) Smoking 03/04/2021 12:00:00 AM EDT Never Smoker completed Never S moker eCW1 ([facility]) Smoking 03/04/2021 12:00:00 AM EDT Never Smoker completed Never S moker eCW1 ([facility]) Smoking 03/04/2021 12:00:00 AM EDT Never Smoker completed Never S moker eCW1 ([facility]) Smoking 02/18/2021 12:00:00 AM EDT Never Smoker completed Never S moker eCW1 ([facility]) Smoking 02/18/2021 12:00:00 AM EDT Never Smoker completed Never S moker eCW1 ([facility]) Smoking 02/18/2021 12:00:00 AM EDT Never Smoker completed Never S moker eCW1 ([facility]) Smoking 02/18/2021 12:00:00 AM EDT Never Smoker completed Never S moker eCW1 ([facility]) Smoking 02/18/2021 12:00:00 AM EDT Never Smoker completed Never S moker eCW1 ([facility]) Smoking 02/10/2021 12:00:00 AM EDT Patient has never smoked co mpleted Patient has never smoked MEDENT ([facility]) Smoking 02/04/2021 12:00:00 AM EDT Never Smoker completed Never S moker eCW1 ([facility]) Smoking 02/04/2021 12:00:00 AM EDT Never Smoker completed Never S moker eCW1 ([facility]) Smoking 01/27/2021 12:00:00 AM EDT Never Smoker completed Never S moker eCW1 ([facility]) Smoking 01/27/2021 12:00:00 AM EDT Never Smoker completed Never S moker eCW1 ([facility]) Smoking 01/19/2021 12:00:00 AM EDT Never Smoker completed Never S moker eCW1 ([facility]) Smoking 12/15/2020 12:00:00 AM EST Never Smoker completed Never S moker eCW1 ([facility]) Smoking 12/15/2020 12:00:00 AM EST Never Smoker completed Never S moker eCW1 ([facility]) Smoking 12/15/2020 12:00:00 AM EST Never Smoker completed Never S moker eCW1 ([facility]) Smoking 12/15/2020 12:00:00 AM EST Never Smoker completed Never S moker eCW1 ([facility]) Smoking 11/17/2020 12:00:00 AM EST Never Smoker completed Never S moker eCW1 ([facility]) Smoking 11/17/2020 12:00:00 AM EST Never Smoker completed Never S moker eCW1 ([facility]) Smoking 10/22/2020 12:00:00 AM EST Never Smoker completed Never S moker eCW1 ([facility]) Smoking 10/22/2020 12:00:00 AM EST Never Smoker completed Never S moker eCW1 ([facility]) Smoking 10/22/2020 12:00:00 AM EST Never Smoker completed Never S moker eCW1 ([facility]) Caffeine Use Details 10/13/2020 12:00:00 AM EST completed soda, 1 cup [employer] ([facility]) Smoking 10/13/2020 12:00:00 AM EST Unknown if ever smoked comp leted Unknown if ever smoked [employer] ([facility]) Smoking 09/24/2020 12:00:00 AM EST Patient has never smoked co mpleted Patient has never smoked MEDENT ([facility], ) Smoking 09/22/2020 12:00:00 AM EST Never Smoker completed Never S moker eCW1 ([facility]) Smoking 09/22/2020 12:00:00 AM EST Never Smoker completed Never S moker eCW1 ([facility]) Smoking 09/22/2020 12:00:00 AM EST Never Smoker completed Never S moker eCW1 ([facility]) Smoking 08/11/2020 12:00:00 AM EDT Never Smoker completed Never S moker eCW1 ([facility]) Smoking 08/11/2020 12:00:00 AM EDT Never Smoker completed Never S moker eCW1 ([facility]) Smoking 08/11/2020 12:00:00 AM EDT Never Smoker completed Never S moker eCW1 ([facility]) Smoking 08/11/2020 12:00:00 AM EDT Never Smoker completed Never S moker eCW1 ([facility]) Smoking 08/11/2020 12:00:00 AM EDT Never Smoker completed Never S moker eCW1 ([facility]) Smoking 08/11/2020 12:00:00 AM EDT Never Smoker completed Never S moker eCW1 ([facility]) Smoking 08/11/2020 12:00:00 AM EDT Never Smoker completed Never S moker eCW1 ([facility]) Smoking 08/11/2020 12:00:00 AM EDT Never Smoker completed Never S moker eCW1 ([facility]) Smoking 08/11/2020 12:00:00 AM EDT Never Smoker completed Never S moker eCW1 ([facility]) Smoking 08/04/2020 12:00:00 AM EDT Never Smoker completed Never S moker eCW1 ([facility]) Smoking 08/04/2020 12:00:00 AM EDT Never Smoker completed Never S moker eCW1 ([facility]) Smoking 08/04/2020 12:00:00 AM EDT Never Smoker completed Never S moker eCW1 ([facility]) Vital Signs ID Date Data Source UNK Name Value Range Interpretation Code Description Data Source(s) Body weight 213.0 [lb_av] 213.0 [lb_av] eCW1 ([facility]) Body weight 96.62 kg 96.62 kg eCW1 ([facility]) Body height 65.5 [in_i] 65.5 [in_i] eCW1 ([facility]) Body mass index (BMI) [Ratio] 34.90 kg/m2 34.90 kg/m2 eCW1 ([facility]) Heart rate 59 /min 59 /min eCW1 ([facility]) Respiratory rate 18 /min 18 /min eCW1 ([facility]) Body temperature 97.9 [degF] 97.9 [degF] eCW1 ( [facility]) Systolic blood pressure 122 mm[Hg] 122 mm[Hg] e CW1 ([facility]) Diastolic blood pressure 60 mm[Hg] 60 mm[Hg] eCW1 ([facility]) Systolic blood pressure 118 mm[Hg] 118 mm[Hg] M EDENT ([facility]) Diastolic blood pressure 70 mm[Hg] 70 mm[Hg] MEDENT ([facility]) Heart rate 63 /min 63 /min MEDENT ([facility]) Body temperature 97.5 [degF] 97.5 [degF] MEDENT ([facility]) Respiratory rate 16 /min 16 /min MEDENT ( [facility]) Oxygen saturation in Arterial blood by Pulse oximetry 100 % 100 % MEDENT ([facility]) Body weight 222 [lb_av] 222 [lb_av] eCW1 ([facility]) Body weight 100.7 kg 100.7 kg eCW1 ([facility]) Body height 65.5 [in_i] 65.5 [in_i] eCW1 ([facility]) Body mass index (BMI) [Ratio] 36.38 kg/m2 36.38 kg/m2 eCW1 ([facility]) Heart rate 62 /min 62 /min eCW1 ([facility]) Respiratory rate 18 /min 18 /min eCW1 ([facility]) Body temperature 97.8 [degF] 97.8 [degF] eCW1 ( [facility]) Systolic blood pressure 126 mm[Hg] 126 mm[Hg] e CW1 ([facility]) Diastolic blood pressure 66 mm[Hg] 66 mm[Hg] eCW1 ([facility]) Body weight 219 [lb_av] 219 [lb_av] eCW1 ([facility]) Body height 65.5 [in_i] 65.5 [in_i] eCW1 ([facility]) Body mass index (BMI) [Ratio] 35.89 kg/m2 35.89 kg/m2 eCW1 ([facility]) Heart rate 65 /min 65 /min eCW1 ([facility]) Respiratory rate 16 /min 16 /min eCW1 ([facility]) Body temperature 98.0 [degF] 98.0 [degF] eCW1 ( [facility]) Systolic blood pressure 116 mm[Hg] 116 mm[Hg] e CW1 ([facility]) Diastolic blood pressure 55 mm[Hg] 55 mm[Hg] eCW1 ([facility]) Body weight 225 [lb_av] 225 [lb_av] eCW1 ([facility]) Body height 65.5 [in_i] 65.5 [in_i] eCW1 ([facility]) Body mass index (BMI) [Ratio] 36.87 kg/m2 36.87 kg/m2 eCW1 ([facility]) Heart rate 66 /min 66 /min eCW1 ([facility]) Respiratory rate 17 /min 17 /min eCW1 ([facility]) Body temperature 98.5 [degF] 98.5 [degF] eCW1 ( [facility]) Systolic blood pressure 133 mm[Hg] 133 mm[Hg] e CW1 ([facility]) Diastolic blood pressure 64 mm[Hg] 64 mm[Hg] eCW1 ([facility]) Body weight 224 [lb_av] 224 [lb_av] eCW1 ([facility]) Body height 65.5 [in_i] 65.5 [in_i] eCW1 ([facility]) Body mass index (BMI) [Ratio] 36.70 kg/m2 36.70 kg/m2 eCW1 ([facility]) Heart rate 68 /min 68 /min eCW1 ([facility]) Respiratory rate 18 /min 18 /min eCW1 ([facility]) Body temperature 97.8 [degF] 97.8 [degF] eCW1 ( [facility]) Systolic blood pressure 153 mm[Hg] 153 mm[Hg] e CW1 ([facility]) Diastolic blood pressure 69 mm[Hg] 69 mm[Hg] eCW1 ([facility]) Body weight 222.00 [lb_av] 222.00 [lb_av] MEDEN T ([facility]) Body height 65 [in_i] 65 [in_i] MEDENT ([facility] 5'5" Body mass index (BMI) [Ratio] 36.9 kg/m2 36.9 k g/m2 MEDENT ([facility]) Heart rate 61 /min 61 /min MEDENT ([facility]) Systolic blood pressure--sitting 142 mm[Hg] 142 mm[Hg] MEDENT ([facility]) Ra, large cuff Diastolic blood pressure--sitting 78 mm[Hg] 78 mm[Hg] MEDENT ([facility]) Ra, large cuff Systolic blood pressure--supine 148 mm[Hg] 148 mm[Hg] MEDENT ([facility]) Ra, large cuff Diastolic blood pressure--supine 80 mm[Hg] 80 mm[Hg] MEDENT ([facility]) Ra, large cuff Systolic blood pressure--standing 138 mm[Hg] 13 8 mm[Hg] MEDENT ([facility]) Ra, large cuff Diastolic blood pressure--standing 78 mm[Hg] 7 8 mm[Hg] MEDENT ([facility]) Ra, large cuff Body weight 223 [lb_av] 223 [lb_av] eCW1 ([facility]) Body height 65.5 [in_i] 65.5 [in_i] eCW1 ([facility]) Body mass index (BMI) [Ratio] 36.54 kg/m2 36.54 kg/m2 eCW1 ([facility]) Heart rate 65 /min 65 /min eCW1 ([facility]) Respiratory rate 18 /min 18 /min eCW1 ([facility]) Body temperature 97.9 [degF] 97.9 [degF] eCW1 ( [facility]) Systolic blood pressure 128 mm[Hg] 128 mm[Hg] e CW1 ([facility]) Diastolic blood pressure mm[Hg] eCW1 ([facility]) Systolic blood pressure 128 mm[Hg] 128 mm[Hg] M EDENT ([facility], ) Diastolic blood pressure 80 mm[Hg] 80 mm[Hg] MEDENT ([facility], ) Heart rate 72 /min 72 /min MEDENT ([facility], ) Oxygen saturation in Arterial blood by Pulse oximetry 97 % 97 % [facility] Room Air Body height 66 [in_i] 66 [in_i] MEDENT ([facility], ) 5'6" Body weight 214.00 [lb_av] 214.00 [lb_av] MEDEN T ([facility], ) Body mass index (BMI) [Ratio] 34.5 kg/m2 34.5 k g/m2 MEDENT ([facility], ) [place] body weight 130 [lb_av] 130 [lb_av] MEDEN T ([facility], ) Body weight 97.070 kg 97.070 kg MEDENT ([facility], ) Body weight 219 [lb_av] 219 [lb_av] eCW1 ([facility]) Body height 65.5 [in_i] 65.5 [in_i] eCW1 ([facility]) Body mass index (BMI) [Ratio] 35.89 kg/m2 35.89 kg/m2 eCW1 ([facility]) Heart rate 81 /min 81 /min eCW1 ([facility]) Respiratory rate 18 /min 18 /min eCW1 ([facility]) Body temperature 96.3 [degF] 96.3 [degF] eCW1 ( [facility]) Systolic blood pressure 131 mm[Hg] 131 mm[Hg] e CW1 ([facility]) Diastolic blood pressure 62 mm[Hg] 62 mm[Hg] eCW1 ([facility]) Body weight 218 [lb_av] 218 [lb_av] eCW1 ([facility]) Body height 65.5 [in_i] 65.5 [in_i] eCW1 ([facility]) Body mass index (BMI) [Ratio] 35.72 kg/m2 35.72 kg/m2 eCW1 ([facility]) Heart rate 60 /min 60 /min eCW1 ([facility]) Respiratory rate 18 /min 18 /min eCW1 ([facility]) Body temperature 97.6 [degF] 97.6 [degF] eCW1 ( [facility]) Systolic blood pressure 161 mm[Hg] 161 mm[Hg] e CW1 ([facility]) Diastolic blood pressure 72 mm[Hg] 72 mm[Hg] eCW1 ([facility]) Patient Treatment Plan of Care Planned Activity Planned Date Details Description Data Source (s) Lorazepam 1 MG Oral Tablet 06/15/2021 12:00:00 AM EDT eCW1 ([facility]) Mupirocin 20 MG/ML Topical Cream 05/04/2021 12:00:00 AM EDT eCW1 ([facility]) carbamide peroxide 65 MG/ML Otic Solution [Debrox] 05/04/2021 12 :00:00 AM EDT eCW1 ([facility]) Mupirocin 20 MG/ML Topical Cream 05/04/2021 12:00:00 AM EDT eCW1 ([facility]) carbamide peroxide 65 MG/ML Otic Solution [Debrox] 05/04/2021 12 :00:00 AM EDT eCW1 ([facility]) Escitalopram 5 MG Oral Tablet [Lexapro] 03/26/2021 12:00:00 AM EDT eCW1 ([facility]) Escitalopram 5 MG Oral Tablet [Lexapro] 03/26/2021 12:00:00 AM EDT eCW1 ([facility]) Escitalopram 5 MG Oral Tablet [Lexapro] 03/26/2021 12:00:00 AM EDT eCW1 ([facility]) Escitalopram 5 MG Oral Tablet [Lexapro] 12/15/2020 12:00:00 AM EST eCW1 ([facility]) Escitalopram 5 MG Oral Tablet [Lexapro] 12/15/2020 12:00:00 AM EST eCW1 ([facility]) Escitalopram 5 MG Oral Tablet [Lexapro] 12/15/2020 12:00:00 AM EST eCW1 ([facility]) Escitalopram 5 MG Oral Tablet [Lexapro] 12/15/2020 12:00:00 AM EST eCW1 ([facility]) Escitalopram 5 MG Oral Tablet [Lexapro] 12/15/2020 12:00:00 AM EST eCW1 ([facility]) Escitalopram 5 MG Oral Tablet [Lexapro] 12/15/2020 12:00:00 AM EST eCW1 ([facility]) Escitalopram 5 MG Oral Tablet [Lexapro] 12/15/2020 12:00:00 AM EST eCW1 ([facility]) Escitalopram 5 MG Oral Tablet [Lexapro] 12/15/2020 12:00:00 AM EST eCW1 ([facility]) Escitalopram 5 MG Oral Tablet [Lexapro] 12/15/2020 12:00:00 AM EST eCW1 ([facility]) Escitalopram 5 MG Oral Tablet [Lexapro] 12/15/2020 12:00:00 AM EST eCW1 ([facility]) Cephalexin 500 MG Oral Capsule [Keflex] 09/22/2020 12:00:00 AM EST eCW1 ([facility]) Cephalexin 500 MG Oral Capsule [Keflex] 09/22/2020 12:00:00 AM EST eCW1 ([facility]) Cephalexin 500 MG Oral Capsule [Keflex] 09/22/2020 12:00:00 AM EST eCW1 ([facility]) Ondansetron 4 MG Disintegrating Oral Tablet 08/18/2020 12:00:00 AM EDT eCW1 ([facility]) Ondansetron 4 MG Disintegrating Oral Tablet 08/18/2020 12:00:00 AM EDT eCW1 ([facility]) Ondansetron 4 MG Disintegrating Oral Tablet 08/18/2020 12:00:00 AM EDT eCW1 ([facility]) Ondansetron 4 MG Disintegrating Oral Tablet 08/18/2020 12:00:00 AM EDT eCW1 ([facility]) Ondansetron 4 MG Disintegrating Oral Tablet 08/18/2020 12:00:00 AM EDT eCW1 ([facility]) Ondansetron 4 MG Disintegrating Oral Tablet 08/18/2020 12:00:00 AM EDT eCW1 ([facility]) Ondansetron 4 MG Disintegrating Oral Tablet 08/18/2020 12:00:00 AM EDT eCW1 ([facility]) Ondansetron 4 MG Disintegrating Oral Tablet 08/18/2020 12:00:00 AM EDT eCW1 ([facility]) Ondansetron 4 MG Disintegrating Oral Tablet 08/18/2020 12:00:00 AM EDT eCW1 ([facility])
[2021-08-30 12:00] LABS: BASO % 0.6 % (0.0-1.0); EOS % 0.1 % (0.0-3.0); HEMATOCRIT 28.9 % (36.0-47.0); HEMOGLOBIN 9.8 g/dl (12.0-15.5); LYMPH # 1.6 10^3/uL (1.5-5.0); LYMPH % 23.3 % (24.0-44.0); MEAN CORPUSCULAR HEMOGLOBIN 34.9 pg (27.0-33.0); MEAN CORPUSCULAR HGB CONC 33.9 g/dl (32.0-36.5); MEAN CORPUSCULAR VOLUME 102.8 fl (80.0-96.0); MONO % 14.3 % (2.0-8.0); NEUTROPHILS # 4.1 10^3/uL (1.5-8.5); NEUTROPHILS % 61.4 % (36.0-66.0); PLATELET COUNT, AUTOMATED 181 10^3/uL (150-450); RED BLOOD COUNT 2.81 10^6/uL (4.00-5.40); WHITE BLOOD COUNT 6.7 10^3/uL (4.0-10.0)
--- NOTE | 2021-08-30 12:37 | REP ---
INDICATION: CHEST PAIN. COMPARISON: 08/15/2021. TECHNIQUE: Single portable AP view of the chest was performed. FINDINGS: Cardiomegaly stable. The mediastinal silhouette is unchanged. There is prominent pulmonary vasculature which is stable. No new infiltrate is seen. A right central venous catheter is again seen with the tip at the junction of the superior vena cava and right atrium. IMPRESSION: No acute pulmonary disease. Stable cardiomegaly and prominent pulmonary vasculature. <Electronically signed by Miguel A Ronquillo > 08/30/21 1232
[2021-08-30 12:38] LABS: ALBUMIN 3.2 GM/DL (3.2-5.2); ALT/SGPT 40 U/L (12-78); BILIRUBIN,DIRECT < 0.1 MG/DL (0.0-0.2); BILIRUBIN,TOTAL 0.3 MG/DL (0.2-1.0); BLOOD UREA NITROGEN 38 MG/DL (7-18); CALCIUM LEVEL 9.5 MG/DL (8.8-10.2); CARBON DIOXIDE LEVEL 25 MEQ/L (21-32); CHLORIDE LEVEL 93 MEQ/L (98-107); CK-MB VALUE MASS < 1.0 NG/ML (<3.6); CPK CREATINE PHOSPHOKINASE 70 U/L (26-192); CREATININE FOR GFR 2.26 MG/DL (0.55-1.30); GLOMERULAR FILTRATION RATE 23.2 (>45); GLUCOSE, FASTING 118 MG/DL (70-100); LIPASE 48 U/L (73-393); MAGNESIUM LEVEL 2.1 MG/DL (1.8-2.4); MB/CK RELATIVE INDEX 1.43 (< OR =4); NT-PRO BNP 824 PG/ML (<125); POTASSIUM SERUM 3.8 MEQ/L (3.5-5.1); SODIUM LEVEL 128 MEQ/L (136-145); TOTAL PROTEIN 5.9 GM/DL (6.4-8.2); TROPONIN I < 0.02 NG/ML (< 0.10)
--- OUTSIDE RECORDS SUMMARY | 2021-08-30 13:23 | CCD ---
Author Author [facility] 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 [facility] Address Unknown Phone Unavailable Care Team Providers Care Haulpak Driver Name Role Phone Rosendo Pelayo MD Unavailable [...] WEDOW, AILEEN Unavailable Unavailable BUMBANAC, A STAR TILE GRADER Unavailable Unavailable BUMBANAC, A STAR TILE GRADER Unavailable Unavailable BUMBANAC, A STAR TILE GRADER Unavailable Unavailable BUMBANAC, A STAR TILE GRADER Unavailable Unavailable BUMBANAC, A STAR TILE GRADER Unavailable Unavailable BUMBANAC, A STAR TILE GRADER Unavailable Unavailable BUMBANAC, A STAR TILE GRADER Unavailable Unavailable BUMBANAC, A STAR TILE GRADER Unavailable Unavailable BUMBANAC, A STAR TILE GRADER Unavailable Unavailable BUMBANAC, A STAR TILE GRADER Unavailable Unavailable BUMBANAC, A STAR TILE GRADER Unavailable Unavailable BUMBANAC, A STAR TILE GRADER Unavailable Unavailable BUMBANAC, A STAR TILE GRADER Unavailable Unavailable BUMBANAC, A STAR TILE GRADER Unavailable Unavailable BUMBANAC, A STAR TILE GRADER Unavailable Unavailable BUMBANAC, A STAR TILE GRADER Unavailable Unavailable BUMBANAC, A STAR TILE GRADER Unavailable Unavailable BUMBANAC, A STAR TILE GRADER Unavailable Unavailable BUMBANAC, A STAR TILE GRADER Unavailable Unavailable BUMBANAC, A STAR TILE GRADER Unavailable Unavailable BUMBANAC, A STAR TILE GRADER Unavailable Unavailable BUMBANAC, A STAR TILE GRADER Unavailable Unavailable BUMBANAC, A STAR TILE GRADER Unavailable Unavailable BUMBANAC, A STAR TILE GRADER Unavailable Unavailable BUMBANAC, A STAR TILE GRADER Unavailable Unavailable BUMBANAC, A STAR TILE GRADER Unavailable Unavailable BUMBANAC, A STAR TILE GRADER Unavailable Unavailable BUMBANAC, A STAR TILE GRADER Unavailable Unavailable BUMBANAC, A STAR TILE GRADER Unavailable Unavailable BUMBANAC, A STAR TILE GRADER Unavailable Unavailable BUMBANAC, A STAR TILE GRADER Unavailable Unavailable SARAH GRADY MD Unavailable Unavailable [...] Unavailable SARAH GRADY MD Unavailable Unavailable SARAH GARDY MD Unavailable Unavailable SARAH GRADY MD Unavailable [...] Unavailable Hernandez, Pablo Unavailable Hernandez, Pablo Unavailable Henrandez, Pablo Unavailable Hernandez, Pablo Unavailable Hernandez, Pablo Unavailable Hernandez, Pablo Unavailable Hernandez, Pablo Unavailable Hernandez, Pablo Unavailable Hernandez, Pablo Unavailable Hernandez, Pablo Unavailable Hernandez, Pablo Unavailable Hernandez, Pablo Unavailable Hernandez, Pablo Unavailable Hernandez, Pablo Unavailable Pablo Hernandez Unavailable Pablo Hernandez Unavailable Pablo Hernandez Unavailable MtanosBlaine MD Unavailable Unavailable MtanosBlaine MD [...] DAVID PA Unavailable Unavailable Hernandez, M Maik TILE GRADER Unavailable Unavailable Hernandez, M Maik TILE GRADER Unavailable Unavailable Hernandez, M Maik TILE GRADER Unavailable Unavailable Hernandez, M Maik TILE GRADER Unavailable Unavailable Hernandez, M Maik TILE GRADER Unavailable Unavailable Hernandez, M Maik TILE GRADER Unavailable Unavailable HERNANDEZ, W PABLO Unavailable Unavailable [...] law may result in a fine or assisted sentence or both. A general authorization for the release of medical or other information is NOT sufficient authorization for further disc losure. Allergies and Adverse Reactions Type Description Substance Reaction Status Data Source(s ) Propensity to adverse reactions COMPAZINE PO TAB 10 MG COMPAZINE PO TAB 10 MG [facility] Propensity to adverse reactions DEMEROL DEMEROL [facility] Propensity to adverse reactions PCN (penicillin) PCN (penicillin) [facility] Family History Family Member Name Family Member Gender Family Member Status Date o f Status Description Data Source(s) Unknown Male Problem (finding) 10/17/2014 12:00:00 AM EST [facility] ([facility]) Unknown Male Problem (finding) 10/17/2014 12:00:00 AM EST [facility] ([facility]) Unknown Male Problem MEDENT ([facility] () Unknown Unknown Problem [facility]) Unknown Female Problem MEDENT ([facility]) Unknown Female Problem MEDENT ([facility]) Unknown Female Problem MEDENT ([facility]) Unknown Female Problem MEDENT ([facility]) Unknown Female Problem MEDENT ([facility]) Encounters Encounter Providers Location Date Indications Data Source(s ) Referrer: SARAH GRADY MD 08/25/2021 08:2 1:10 PM EDT [facility] 08/25/2021 08:21:10 PM EDT [facility] 08/25/2021 08:21:10 PM EDT [facility] [place] [address] [facility] [address] 08/11/2021 12:00:00 AM EDT eCW1 ([facility]) Outpatient Attender: LUZ ELENA EDDYReferrer: Pablo Hernandez EMERGENCY ROOM-LAB REFOTH 08/02/2021 11:33:00 AM EDT - 08/02/2021 11:33:00 AM EDT [facility] [place] [address] [facility] [address] 06/15/2021 12:00:00 AM EDT eCW1 ([facility]) Outpatient Attender: LUDIN MIGUEL NPConsultant: SHASHANK COUCH 05/31/2021 03:28:00 PM EDT - 05/31/2021 03:28:00 PM EDT [facility] [place] [address] [facility] [address] 05/31/2021 12:00:00 AM EDT eCW1 ([facility]) Outpatient Attender: Maik Hernandez NPConsultant: SHASHANK SÁNCHEZ PA 05/16/2021 10:55:00 AM EDT - 05/16/2021 11:05:00 AM EDT [facility] [place] [address] [facility] [address] 05/11/2021 12:00:00 AM EDT eCW1 ([facility]) Outpatient Attender: Maik Hernandez NPConsultant: SHASHANK SÁNCHEZ PA 05/04/2021 01:00:00 PM EDT - 05/04/2021 01:10:00 PM EDT [facility] [place] [address] [facility] [address] 05/04/2021 12:00:00 AM EDT eCW1 ([facility]) [place] [address] [facility] [address] 05/04/2021 12:00:00 AM EDT eCW1 ([facility]) [place] [address] [facility] [address] 05/04/2021 12:00:00 AM EDT eCW1 ([facility]) [place] [address] [facility] [address] 04/21/2021 12:00:00 AM EDT eCW1 ([facility]) [place] [address] [facility] [address] 04/13/2021 12:00:00 AM EDT eCW1 ([facility]) [place] [address] [facility] [address] 04/09/2021 12:00:00 AM EDT eCW1 ([facility]) [place] [address] [facility] [address] 04/06/2021 12:00:00 AM EDT eCW1 ([facility]) Outpatient Attender: PABLO Mendoza: PABLO HERNANDEZ 04/05/2021 12:00:00 AM EDT - 04/06/2021 12:00:00 AM EDT Bone marrow transplant status [facility] Bone marrow transplant status Outpatient [address] [facility] [address] 04/01/2021 12:00:00 AM EDT eCW1 ([facility]) Unknown [address] [facility] [address] 03/29/2021 12:00:00 AM EDT eCW1 ([facility]) [facility] Pt. Level 3 [address] [place] [address] 03/25/2021 12:00:00 AM EDT eCW1 ([facility]) Unknown [address] [facility] [place] [address] 2021 12:00:00 AM EDT eCW1 ([facility]) Unknown [address] [facility] [address] 03/08/2021 12:00:00 AM EDT eCW1 ([facility]) (TV_Virtual) [facility] [address] [place] [address] 03/04/2021 12:00:00 AM EDT eCW1 ([facility]) Unknown [address] [facility] [place] [address] 03/02/2021 12:00:00 AM EDT eCW1 ([facility]) Unknown [address] [facility] [place] [address] 02/22/2021 12:00:00 AM EDT eCW1 ([facility]) Unknown [address] [facility] [place] [address] 02/21/2021 12:00:00 AM EDT eCW1 ([facility]) Unknown [address] [facility] [address] 02/18/2021 12:00:00 AM EDT eCW1 ([facility]) [place] [address] [facility] [address] 02/18/2021 12:00:00 AM EDT eCW1 ([facility]) [place] [address] [facility] [address] 02/18/2021 12:00:00 AM EDT eCW1 ([facility]) [place] [address] [facility] [address] 02/15/2021 12:00:00 AM EDT eCW1 ([facility]) Outpatient Attender: DAVID COUCH Main Office 02/10/2021 1 0:15:00 AM EDT MEDENT ([facility]) [place] [address] [facility] [address] 02/04/2021 12:00:00 AM EDT eCW1 ([facility]) [place] [address] [facility] [address] 01/27/2021 12:00:00 AM EDT eCW1 ([facility]) [place] [address] [facility] [address] 01/27/2021 12:00:00 AM EDT eCW1 ([facility]) Unknown [address] [facility] [address] 01/19/2021 12:00:00 AM EDT eCW1 ([facility]) [place] [address] [facility] [address] 01/10/2021 12:00:00 AM EST eCW1 ([facility]) [place] [address] [facility] [address] 01/10/2021 12:00:00 AM EST eCW1 ([facility]) [place] [address] [facility] [address] 12/23/2020 12:00:00 AM EST eCW1 ([facility]) [facility] Pt. Level 4 [address] [place] [address] 12/15/2020 12:00:00 AM EST eCW1 ([facility]) Unknown [address] [facility] [address] 12/07/2020 12:00:00 AM EST [facility] TeleMedicine Est. Pt. Level 4 [address] [place] [address] 11/17/2020 12:00:00 AM EST eCW1 ([facility]) Unknown [address] [facility] [address] 11/10/2020 12:00:00 AM EST [facility] Unknown [address] [facility] [place] [address] 10/26/2020 12:00:00 AM EST [facility]CW[facility] TeleMedicine Est. Pt. Level 3 [address] [place] [address] 10/22/2020 12:00:00 AM EST eCW1 ([facility]) Attender: Blaine Damon MD [facility] 10/13/2020 12:58:00 PM EST - 10/13/2020 12:58:00 PM EST NextGen ( [facility]) Outpatient Attender: AILEEN KOCHReferrer: AILEEN KOCH Product Manufacturing Professional: SHASHANK COUCH 10/05/2020 12:00:00 PM EST - 10/05/2020 12:10:00 PM [facility] Outpatient Attender: PABLO Lightultant: SHASHANK COUCH 10/05/2020 11:59:00 AM EST - 10/05/2020 12:09:00 PM [facility] Unknown [address] [facility] [place] [address] 10/05/2020 12:00:00 AM EST eCW1 ([facility]) Outpatient [address] [facility] [place] [address] 09/22/2020 12:00:00 AM EST eCW1 ([facility]) Unknown [address] [facility] [place] [address] 09/21/2020 12:00:00 AM EST eCW1 ([facility]) [place] [address] [facility] [place] [address] 09/16/2020 12:00:00 AM EST eCW1 ([facility]) Outpatient Attender: VAUGHN Masoner: Norberto sutton MD 09/05/2020 12:00:00 AM EDT - 09/06/2020 12:00:00 AM EDT [facility] Unknown [address] [facility] [address] 09/04/2020 12:00:00 AM EDT eCW1 ([facility]) Outpatient Attender: AILEEN KOCHConsultant: SHASHANK COUCH 08/31/2020 12:30:00 PM EDT - 08/31/2020 12:40:00 PM EDT [facility] Outpatient Attender: PABLO Lightultant: SHASHANK COUCH 08/31/2020 12:28:00 PM EDT - 08/31/2020 12:38:00 PM EDT [facility] [place] [address] [facility] [address] 08/31/2020 12:00:00 AM EDT eCW1 ([facility]) [place] [address] [facility] [place] [address] 08/25/2020 12:00:00 AM EDT eCW1 ([facility]) Unknown [address] [facility] [place] [address] 08/24/2020 12:00:00 AM EDT eCW1 ([facility]) [place] [address] [facility] [place] [address] 08/24/2020 12:00:00 AM EDT eCW1 ([facility]) [place] [address] [facility] [address] 08/24/2020 12:00:00 AM EDT eCW1 ([facility]) Outpatient Attender: JORGE OROSCOReferrer: Norberto elizondo MD [id number] 08/18/2020 12:00:00 AM EDT - 08/19/2020 12:00:00 AM [facility] Outpatient 08/15/2020 12:00:00 AM [facility] Unknown [address] [facility] [address] 08/12/2020 12:00:00 AM EDT [facility]CW[facility] [place] [address] [facility] [place] [address] 08/11/2020 12:00:00 AM EDT [facility]CW1 [facility] [place] [address] [facility] [place] [address] 08/06/2020 12:00:00 AM EDT eCW1 ([facility]) [place] [address] [facility] [place] [address] 08/04/2020 12:00:00 AM EDT eCW1 ([facility]) [place] [address] [facility] [place] [address] 07/28/2020 12:00:00 AM EDT eCW1 ([facility]) Outpatient Attender: AILEEN KOCHConsultant: SHASHANK COUCH 07/07/2020 10:49:00 AM EDT - 07/07/2020 10:59:00 AM EDT [facility] Outpatient Attender: PABOL Lightultant: SHASHANK COUCH 07/07/2020 10:46:00 AM EDT - 07/07/2020 10:56:00 AM EDT [facility] Immunizations Vaccine Date Status Description Data Source(s) COVID-19 VACC,MRNA(MODERNA)/PF 07/23/2021 12:00:00 AM EDT completed [facility] COVID-19 VACCINE Moderna 07/23/2021 12:00:00 AM EDT completed [facility] Vaccine Series Complete: YESThis Data wa s Submitted to [facility] [employer]. COVID-19 VACCINE Moderna 02/01/2021 12:00:00 AM EDT completed [facility] Vaccine Series Complete: YESThis Data wa s Submitted to [facility] [employer]. COVID-19 VACCINE Moderna 01/04/2021 12:00:00 AM EST completed [facility] Vaccine Series Complete: NOThis Data was Submitted to [facility] [employer]. Medications Medication Brand Name Start Date Product [...] AM EDT active Lorazepam 1 MG eCW1 ([facility]) 1 mg 08/10/2021 12:00:00 AM EDT tablet [...] AM EDT active Lorazepam 1 MG eCW1 ([facility]) Acetaminophen 325 MG / Hydrocodone Bitartrate 5 [...] TABLET BY MOUTH EVERY EVENING SOLD: 07/13/2021 [facility] 200 mg 05/20/2021 12:00:00 AM EDT tablet 30 TAKE ONE TABLET BY MOUTH EVERY EVENING TAKE ONE TABLET BY MOUTH EVERY EVENING SOLD: 06/15/2021 [facility] 200 mg 05/20/2021 12:00:00 AM [...] 5.0 {drops_into_affected_ear} active Debrox 6.5 % eCW1 ([facility]) Mupirocin 20 MG/ML Topical Cream Mupirocin Calcium 2 % Mupir ocin Calcium 2 % 05/04/2021 12:00:00 AM EDT 1.0 {application} act fany Mupirocin Calcium 2 % eCW1 ([facility]) Mupirocin 20 MG/ML Topical Cream Mupirocin Calcium 2 % Mupir ocin Calcium 2 % 05/04/2021 12:00:00 AM EDT 1.0 {application} act fany Mupirocin Calcium 2 % eCW1 ([facility]) Mupirocin 20 MG/ML Topical Cream Mupirocin Calcium 2 % Mupir ocin Calcium 2 % 05/04/2021 12:00:00 AM EDT 1.0 {application} act fany Mupirocin Calcium 2 % eCW1 ([facility]) Mupirocin 20 MG/ML Topical Cream Mupirocin Calcium 2 % Mupir ocin Calcium 2 % 05/04/2021 12:00:00 AM EDT 1.0 {application} act fany Mupirocin Calcium 2 % eCW1 ([facility]) carbamide peroxide 65 MG/ML Otic Solution [Debrox] Debrox 6. 5 % Debrox 6.5 % 05/04/2021 12:00:00 AM EDT 5.0 {drops_into_affected_ear} active Debrox 6.5 % eCW1 ([facility]) Mupirocin 20 MG/ML Topical Cream Mupirocin Calcium 2 % Mupir ocin Calcium 2 % 05/04/2021 12:00:00 AM EDT 1.0 {application} active eCW1 ([facility]) carbamide peroxide 65 MG/ML Otic Solution [Debrox] Debrox 6. 5 % Debrox 6.5 % 05/04/2021 12:00:00 AM EDT 5.0 {drops_into_affected_ear} active Debrox 6.5 % eCW1 ([facility]) carbamide peroxide 65 MG/ML Otic Solution [Debrox] Debrox 6. 5 % Debrox 6.5 % 05/04/2021 12:00:00 AM EDT 5.0 {drops_into_affected_ear} active Debrox 6.5 % eCW1 ([facility]) Mupirocin 20 MG/ML Topical Cream Mupirocin Calcium 2 % Mupir ocin Calcium 2 % 05/04/2021 12:00:00 AM EDT 1.0 {application} act fany Mupirocin Calcium 2 % eCW1 ([facility]) carbamide peroxide 65 MG/ML Otic Solution [Debrox] Debrox 6. 5 % Debrox 6.5 % 05/04/2021 12:00:00 AM EDT 5.0 {drops_into_affected_ear} active Debrox 6.5 % eCW1 ([facility]) carbamide peroxide 65 MG/ML Otic Solution [Debrox] Debrox 6. 5 % Debrox 6.5 % 05/04/2021 12:00:00 AM EDT 5.0 {drops_into_affected_ear} active Debrox 6.5 % eCW1 ([facility]) carbamide peroxide 65 MG/ML Otic Solution [Debrox] Debrox 6. 5 % Debrox 6.5 % 05/04/2021 12:00:00 AM EDT 5.0 {drops_into_affected_ear} active eCW1 ([facility]) Mupirocin 20 MG/ML Topical Cream Mupirocin Calcium 2 % Mupir ocin Calcium 2 % 05/04/2021 12:00:00 AM EDT 1.0 {application} act fany Mupirocin Calcium 2 % eCW1 ([facility]) 10 mg 04/28/2021 12:00:00 AM EDT tablet [...] BY MOUTH EVERY DAY WITH BREAKFAST SOLD: 06/07/20 21 [facility] montelukast 10 MG Oral [...] {tablet} active Le xapro 5 MG eCW1 ([facility]) Escitalopram 5 MG Oral Tablet [Lexapro] Lexapro 5 MG Lexapro 5 MG 03/26/2021 12:00:00 AM EDT 1.0 {tablet} active eCW1 ([facility]) 0.125 mg 03/26/2021 12:00:00 AM EDT tablet 90 TAKE THREE TABLETS BY MOUTH EVERY NIGHT TAKE THREE TABLETS BY MOUTH EVERY NIGHT SOLD: 07/20/2021 [facility] Escitalopram 5 MG Oral Tablet [Lexapro] Lexapro 5 MG Lexapro 5 MG 03/26/2021 12:00:00 AM EDT 1.0 {tablet} active Le xapro 5 MG eCW1 ([facility]) 0.125 mg 03/26/2021 12:00:00 AM EDT tablet [...] EDT ORAL active [facility] ([facility]) Cholecalciferol 2000 UNT Oral Tablet Vitamin D3 02/09/2021 12:00:00 A M EDT ORAL active [facility] ([facility]) ferrous gluconate 256 MG Oral Tablet Iron (Ferrous Gluconate ) 02/09/2021 12:00:00 AM EDT ORAL active M EDENT ([facility]) Acyclovir 400 MG Oral Tablet Acyclovir 02/09/2021 12:00:00 AM EDT ORAL active [facility] ([facility]) Labetalol hydrochloride 100 MG Oral Tablet Labetalol HCL 02/09/2021 12:00:00 AM EDT ORAL active [facility] ([facility]) Amlodipine 5 MG Oral Tablet Amlodipine Besylate 02/09/2021 12:00:00 A M EDT ORAL active [facility] ([facility]) Prednisone 5 MG Oral Tablet Prednisone 02/09/2021 12:00:00 AM EDT ORAL active [facility] ([facility]) 24 HR Oxybutynin chloride 15 MG Extended Release Oral Tablet Oxybutynin Chloride ER 02/09/2021 12:00:00 AM EDT ORAL active [facility] ([facility]) 24 HR Diltiazem Hydrochloride 120 MG Extended Release Oral C apsule Diltiazem CD 02/09/2021 12:00:00 AM EDT ORAL active [facility] ([facility]) Aspirin 81 MG Delayed Release Oral Tablet Aspirin 81 2020 12:00:00 AM EDT ORAL active [facility] ( [facility]) Admelog Solostar Admelog Solostar 02/09/2021 12:00:00 AM EDT active [facility] ([facility]) repaglinide 2 MG Oral Tablet Repaglinide 02/09/2021 12:00:00 AM EDT ORAL active [facility] ([facility]) Clotrimazole 10 MG/ML Topical Cream Clotrimazole 02/09/2021 12:00:00 AM EDT active [facility] ([facility]) 60 ACTUAT Budesonide 0.16 MG/ACTUAT / fo rmoterol fumarate 0.0045 MG/ACTUAT Metered Dose Inhaler Budesonide/Formoterol Fumarate Dihydrate 02/09/2021 12:00:00 AM EDT RESPIRATORY active [facility] ([facility]) Dexamethasone 0.1 MG/ML Oral Solution Dexamethasone 02/09/2021 12:00:00 AM EDT ORAL active [facility] ( [facility]) Hydroxychloroquine Sulfate 200 MG Oral Tablet Hydroxychloroq uine Sulfate 02/09/2021 12:00:00 AM EDT ORAL active [facility] ([facility]) Hydrocortisone 10 MG/ML Topical Cream Hydrocortisone 02/09/2021 12:00:00 AM EDT active [facility] ( [facility]) Folic Acid 1 MG Oral Tablet Folic Acid 02/09/2021 12:00:00 AM EDT ORAL active [facility] ([facility]) difluprednate 0.5 MG/ML Ophthalmic Suspension [Durezol] Dure zol 02/09/2021 12:00:00 AM EDT completed [facility] ([facility]) Pramipexole dihydrochloride 0.125 MG Oral Tablet Pramipexole Dihydrochloride 02/09/2021 12:00:00 AM EDT ORAL active [facility] ([facility]) montelukast 10 MG Oral Tablet Montelukast Sodium 02/09/2021 12:00:00 AM EDT ORAL active [facility] ([facility] Lidocaine Hydrochloride 20 MG/ML Injectable Solution [Xyloca ine] Xylocaine 02/09/2021 12:00:00 AM EDT active [facility] ([facility]) Ketorolac Tromethamine 5 MG/ML Ophthalmic Solution Ketorolac Tromethamine 02/09/2021 12:00:00 AM EDT OPHTHALMIC completed [facility] ([facility]) Acetaminophen 325 MG / tramadol hydrochloride 37.5 MG Oral Tablet Tramadol Hydrochloride/Acetaminophen 02/09/2021 12:00:00 AM EDT ORAL active [facility] ([facility]) Chlorthalidone 25 MG Oral Tablet Chlorthalidone 02/09/2021 12:00:00 A M EDT ORAL active [facility] ([facility]) 2.5 mg 02/08/2021 12:00:00 AM [...] DAILY DOSE = THREE TABLETS SOLD: 04/27/2021 [facility] Acetaminophen 325 MG / tramadol hydrochloride 37.5 MG Oral Tablet 37.5-325 mg TRAMADOL HCL/ACETAMINOPHEN 12/19/2020 12:00:00 AM EST tablet 21 TAKE ONE TABLET BY MOUTH THREE TIMES A DAY NEEDED FOR PAIN, MAXIMUM DAILY DOSE = THREE TABLETS TAKE ONE TABLET BY MOUTH THREE TIMES A D AY NEEDED FOR PAIN, MAXIMUM DAILY DOSE = THREE TABLETS SOLD: 12/20/2020 [facility] 10 mg 12/18/2020 12:00:00 AM EST tablet 30 TAKE ONE TABLET BY MOUTH EVERY DAY TAKE ONE TABLET BY MOUTH EVERY DAY SOLD: 12/19/2020 [facility] 10 mg 12/18/2020 12:00:00 AM EST tablet 30 TAKE ONE TABLET BY MOUTH EVERY DAY TAKE ONE TABLET BY MOUTH EVERY DAY SOLD: 01/17/2021 [facility] 10 mg 12/18/2020 12:00:00 AM EST tablet 30 TAKE ONE TABLET BY MOUTH EVERY DAY TAKE ONE TABLET BY MOUTH EVERY DAY SOLD: 04/07/2021 [facility] Cyclobenzaprine hydrochloride 10 MG Oral Tablet CYCLOBENZAPR INE HCL 12/17/2020 12:00:00 AM EST tablet 60 TAKE ONE TABLET BY MOUTH THREE TIMES A DAY NEEDED TAKE ONE TABLET BY MOUTH THREE TIMES A DAY NEEDED SOLD: 12/17/2020 [facility] Escitalopram 5 MG Oral Tablet [Lexapro] Lexapro 5 MG Lexapro 5 MG 12/15/2020 12:00:00 AM EST 1.0 {tablet} active Le xapro 5 MG eCW1 ([facility]) Escitalopram 5 MG Oral Tablet [Lexapro] Lexapro 5 MG Lexapro 5 MG 12/15/2020 12:00:00 AM EST 1.0 {tablet} active Le xapro 5 MG eCW1 ([facility]) Escitalopram 5 MG Oral Tablet [Lexapro] Lexapro 5 MG Lexapro 5 MG 12/15/2020 12:00:00 AM EST 1.0 {tablet} active Le xapro 5 MG eCW1 ([facility]) 2 mg 12/15/2020 12:00:00 AM EST tablet [...] {tablet} active Le xapro 5 MG eCW1 ([facility]) 2 mg 12/15/2020 12:00:00 AM EST tablet [...] {tablet} active Le xapro 5 MG eCW1 ([facility]) Escitalopram 5 MG Oral Tablet ESCITALOPRAM OXALATE 12/15/2020 12 :00:00 AM EST tablet 30 TAKE ONE TABLET BY MOUTH EVERY D AY TAKE ONE TABLET BY MOUTH EVERY DAY SOLD: 12/15/2020 [facility] Escitalopram 5 MG Oral Tablet [Lexapro] Lexapro 5 MG Lexapro 5 MG 12/15/2020 12:00:00 AM EST 1.0 {tablet} active Le xapro 5 MG eCW1 (Formerly [facility]) 2 mg 12/15/2020 12:00:00 AM EST tablet [...] {tablet} active Le xapro 5 MG eCW1 (Formerly [facility]) Escitalopram 5 MG Oral Tablet ESCITALOPRAM OXALATE [...] {tablet} active Le xapro 5 MG eCW1 (Formerly [facility]) Escitalopram 5 MG Oral Tablet [Lexapro] Lexapro 5 MG Lexapro 5 MG 12/15/2020 12:00:00 AM EST 1.0 {tablet} active Le xapro 5 MG eCW1 (Formerly [facility]) Escitalopram 5 MG Oral Tablet [Lexapro] Lexapro 5 MG Lexapro 5 MG 12/15/2020 12:00:00 AM EST 1.0 {tablet} active Le xapro 5 MG eCW1 (Formerly [facility]) 2 mg 12/15/2020 12:00:00 AM EST tablet [...] {tablet} active Le xapro 5 MG eCW1 (Formerly [facility]) Escitalopram 5 MG Oral Tablet [Lexapro] Lexapro 5 MG Lexapro 5 MG 12/15/2020 12:00:00 AM EST 1.0 {tablet} active Le xapro 5 MG eCW1 (Formerly [facility]) Escitalopram 5 MG Oral Tablet ESCITALOPRAM OXALATE 12/15/2020 12 :00:00 AM EST tablet 30 TAKE ONE TABLET BY MOUTH EVERY D AY TAKE ONE TABLET BY MOUTH EVERY DAY SOLD: 03/09/2021 [facility] Escitalopram 5 MG Oral Tablet [Lexapro] Lexapro 5 MG Lexapro 5 MG 12/15/2020 12:00:00 AM EST 1.0 {tablet} active Le xapro 5 MG eCW1 (Formerly [facility]) Escitalopram 5 MG Oral Tablet [Lexapro] Lexapro 5 MG Lexapro 5 MG 12/15/2020 12:00:00 AM EST 1.0 {tablet} active Le xapro 5 MG eCW1 (Formerly [facility]) Escitalopram 5 MG Oral Tablet [Lexapro] Lexapro 5 MG Lexapro 5 MG 12/15/2020 12:00:00 AM EST 1.0 {tablet} active Le xapro 5 MG eCW1 (Formerly [facility]) Escitalopram 5 MG Oral Tablet [Lexapro] Lexapro 5 MG Lexapro 5 MG 12/15/2020 12:00:00 AM EST 1.0 {tablet} active Le xapro 5 MG eCW1 (Formerly [facility]) Escitalopram 5 MG Oral Tablet [Lexapro] Lexapro 5 MG Lexapro 5 MG 12/15/2020 12:00:00 AM EST 1.0 {tablet} active Le xapro 5 MG eCW1 (Formerly [facility]) montelukast 10 MG Oral Tablet MONTELUKAST SODIUM [...] ND TWO EVERY EVENING SOLD: 02/27/2021 [facility] 0.125 mg 09/27/2020 12:00:00 AM EST tablet 90 TAKE ONE TABLET BY MOUTH EVERY MORNING AND TWO EVERY EVENING TAKE ONE TABLET BY MOUTH EVERY MORNING A ND TWO EVERY EVENING SOLD: 11/22/2020 [facility] 0.125 mg 09/27/2020 12:00:00 [...] {capsule} active K eflex 500 MG eCW1 (Formerly [facility]) 15 mg 09/22/2020 12:00:00 AM EST tablet extended release 24hr 30 TAKE ONE TABLET BY MOUTH EVERY DAY AT BEDTIME TAKE ONE TABLET BY MOUTH EVERY DAY AT BEDTIME SOLD: 04/07/2021 [facility] Cephalexin 500 MG Oral Capsule [Keflex] Keflex 500 MG Keflex 500 MG 09/22/2020 12:00:00 AM EST 1.0 {capsule} active K eflex 500 MG eCW1 (Formerly [facility]) 15 mg 09/22/2020 12:00:00 AM EST tablet [...] {capsule} active K eflex 500 MG eCW1 (Formerly [facility]) 15 mg 09/22/2020 12:00:00 AM EST tablet [...] {capsule} active K eflex 500 MG eCW1 (Formerly [facility]) 15 mg 09/22/2020 12:00:00 AM EST tablet extended release 24hr 30 TAKE ONE TABLET BY MOUTH EVERY DAY AT BEDTIME TAKE ONE TABLET BY MOUTH EVERY DAY AT BEDTIME SOLD: 12/07/2020 [facility] Cephalexin 500 MG Oral Capsule [Keflex] Keflex 500 MG Keflex 500 MG 09/22/2020 12:00:00 AM EST 1.0 {capsule} active K eflex 500 MG eCW1 (Formerly [facility]) Cephalexin 500 MG Oral Capsule [Keflex] Keflex 500 MG Keflex 500 MG 09/22/2020 12:00:00 AM EST 1.0 {capsule} active K eflex 500 MG eCW1 (Formerly [facility]) 15 mg 09/22/2020 12:00:00 AM EST tablet [...] {capsule} active K eflex 500 MG eCW1 (Formerly [facility]) 15 mg 09/22/2020 12:00:00 AM EST tablet extended release 24hr 30 TAKE ONE TABLET BY MOUTH EVERY DAY AT BEDTIME TAKE ONE TABLET BY MOUTH EVERY DAY AT BEDTIME SOLD: 05/11/2021 [facility] Cephalexin 500 MG Oral Capsule [Keflex] Keflex 500 MG Keflex 500 MG 09/22/2020 12:00:00 AM EST 1.0 {capsule} active K eflex 500 MG eCW1 (Formerly [facility]) 15 mg 09/22/2020 12:00:00 AM EST tablet [...] 1.0 {tablet_on_the_tongue_and_allow_to_dissolve} active Ondansetron 4 MG eCW1 (Formerly [facility]) Ondansetron 4 MG Disintegrating Oral Tablet Ondansetron 4 MG 08/18/2020 12:00:00 AM EDT 1.0 {tablet_on_the_tongue_and_allow_to_dissolve} active Ondansetron 4 MG eCW1 (Formerly [facility]) Ondansetron 4 MG Disintegrating Oral Tablet Ondansetron 4 MG 08/18/2020 12:00:00 AM EDT 1.0 {tablet_on_the_tongue_and_allow_to_dissolve} active Ondansetron 4 MG eCW1 (Formerly [facility]) Ondansetron 4 MG Disintegrating Oral Tablet Ondansetron 4 MG 08/18/2020 12:00:00 AM EDT 1.0 {tablet_on_the_tongue_and_allow_to_dissolve} active Ondansetron 4 MG eCW1 (Formerly [facility]) Ondansetron 4 MG Disintegrating Oral Tablet Ondansetron 4 MG 08/18/2020 12:00:00 AM EDT 1.0 {tablet_on_the_tongue_and_allow_to_dissolve} active Ondansetron 4 MG eCW1 (Formerly [facility]) Ondansetron 4 MG Disintegrating Oral Tablet Ondansetron 4 MG 08/18/2020 12:00:00 AM EDT 1.0 {tablet_on_the_tongue_and_allow_to_dissolve} active Ondansetron 4 MG eCW1 (Formerly [facility]) Ondansetron 4 MG Disintegrating Oral Tablet Ondansetron 4 MG 08/18/2020 12:00:00 AM EDT 1.0 {tablet_on_the_tongue_and_allow_to_dissolve} active Ondansetron 4 MG eCW1 (Formerly [facility]) Ondansetron 4 MG Disintegrating Oral Tablet Ondansetron 4 MG 08/18/2020 12:00:00 AM EDT 1.0 {tablet_on_the_tongue_and_allow_to_dissolve} active Ondansetron 4 MG eCW1 (Formerly [facility]) Ondansetron 4 MG Disintegrating Oral Tablet Ondansetron 4 MG 08/18/2020 12:00:00 AM EDT 1.0 {tablet_on_the_tongue_and_allow_to_dissolve} active Ondansetron 4 MG eCW1 (Formerly [facility]) Ondansetron 4 MG Disintegrating Oral Tablet Ondansetron 4 MG 08/18/2020 12:00:00 AM EDT 1.0 {tablet_on_the_tongue_and_allow_to_dissolve} active Ondansetron 4 MG eCW1 (Formerly [facility]) Ondansetron 4 MG Disintegrating Oral Tablet Ondansetron 4 MG 08/18/2020 12:00:00 AM EDT 1.0 {tablet_on_the_tongue_and_allow_to_dissolve} active Ondansetron 4 MG eCW1 (Formerly [facility]) Ondansetron 4 MG Disintegrating Oral Tablet Ondansetron 4 MG 08/18/2020 12:00:00 AM EDT 1.0 {tablet_on_the_tongue_and_allow_to_dissolve} active Ondansetron 4 MG eCW1 (Formerly [facility]) Ondansetron 4 MG Disintegrating Oral Tablet Ondansetron 4 MG 08/18/2020 12:00:00 AM EDT 1.0 {tablet_on_the_tongue_and_allow_to_dissolve} active Ondansetron 4 MG eCW1 (Formerly [facility]) Ondansetron 4 MG Disintegrating Oral Tablet Ondansetron 4 MG 08/18/2020 12:00:00 AM EDT 1.0 {tablet_on_the_tongue_and_allow_to_dissolve} active Ondansetron 4 MG eCW1 (Formerly [facility]) Ondansetron 4 MG Disintegrating Oral Tablet Ondansetron 4 MG 08/18/2020 12:00:00 AM EDT 1.0 {tablet_on_the_tongue_and_allow_to_dissolve} active Ondansetron 4 MG eCW1 (Formerly [facility]) Ondansetron 4 MG Disintegrating Oral Tablet Ondansetron 4 MG 08/18/2020 12:00:00 AM EDT 1.0 {tablet_on_the_tongue_and_allow_to_dissolve} active Ondansetron 4 MG eCW1 (Formerly [facility]) Ondansetron 4 MG Disintegrating Oral Tablet Ondansetron 4 MG 08/18/2020 12:00:00 AM EDT 1.0 {tablet_on_the_tongue_and_allow_to_dissolve} active Ondansetron 4 MG eCW1 (Formerly [facility]) 4 mg 08/18/2020 12:00:00 AM EDT tablet,disintegrating [...] TABLET BY MOUTH EVERY NIGHT SOLD: 08/13/2020 [facility] 1 mg 07/30/2020 12:00:00 AM [...] type / Coverage type Policy ID Covered libertarian ID Covered libertarian's relationship to sharma Policy Sharma Plan Information [employer] [id number] SP [id number] [facility] Federal Service Medigap Part B [id number] Family De pendent Ghi/Emblem HLTH (pr) Medigap Part B [id number] Self PGBA [facility] 10/21/15 [facility] 10/21/15 MEDICARE [id number] SP [id number] A POMCO [id number] Liv [id number] POMCO [id number] Liv [id number] POMCO U [id number] Self [id number] POMCO [id number] SP [id number] Pomco (pr) Medigap Part B [id number] Self UMR [facility] [id number] SP [id number] [place] [id number] S [id number] [place] [id number] S [id number] [place] [id number] S [id number] MEDICARE A [id number] Self [id number] MEDICARE [id number] Liv [id number] MEDICARE [id number] SP [id number] A [place] MEDICARE DIVISION [id number] S [id number] MEDICARE [id number] Liv [id number] A MEDICARE A [id number] Self [id number] A MEDICARE [id number] Liv [id number] A [place] MEDICARE DIVISION [id number] S [id number] [place] MED[place]ARE DIVISION [id number] S [id number] U [id number] Spouse [id number] Liv [id number] Liv [id number] [facility] [employer] Serv (TFL) Medigap Part B [id number] Family Dep endent Medicare Dme Supplies Medigap Part B [id number] Self Medicare [place] Primary [id number] Self WPS For Life Medigap Part B [id number] Family Dependent 1 [id number] WPS For Life Medigap Part B [id number] Family Dependent 1 [id number] FOR LIFE [id number] 2 [id number] R U [id number] Self [id number] POMCO [id number] SP [id number] POMCO [id number] SP [id number] R [id number] S [id number] R [id number] S [id number] FOR LIFE U [id number] Spouse [id number] FOR LIFE [id number] SP [id number] FOR LIFE [id number] 2 [id number] [facility] [id number] SP [id number] [facility] Commercial [id number] Self [id number] ANSI-Medicare Part B [id number] ANSI-Commercial oaqh7a25-54l3-9t4q-[id number] ibyb7u00-98d1-2h9k-[id number] ANSI-Commercial 72s95s0f-q66p-1465-dld2-29z6806260pu 99k43f1y-u45o-9181-luz4-55y8447612dg ANSI-Commercial [id number]-8jak-[id number] 8eo49724-9w5c-5ynw-[id number] ANSI-Commercial 03l629mu-cnsx-8vsz-x4zt-599n642y8677 66s135wl-vtlr-0ygd-b2bv-522a775s8226 ANSI-Commercial 87pw44o6-2722-487t-93uh-5l3au709giv1 59ja45z6-1337-530z-61ie-4a9fl712nfo3 ANSI-Medicare Part B [id number]-3i82-685n-x28t-[id number] ANSI-Commercial 3lu229t6-78qj-5h2q-80x7-y8180799g746 6oa790v5-69tt-9y7w-78j7-w0245068k264 ANSI-Commercial f0p43244-4674-912e-7158-14008lilvr4g g5d13738-7861-235v-4670-65177vxhia3v ANSI-Commercial 2v0zdl97-99v9-3g77-62tk-j6885pw473o5 3g8ptn91-31x9-3r36-09tq-p6906zj287y3 ANSI-Medicare Part B [id number]-f54pdx964t11 [facility] [id number] [facility] [id number] ANSI-Medicare Part B [id number]-501g-o33r-[id number] ANSI-Commercial 3n10cl47-s45n-43m1-3q0c-sig3i16o3v88 8m19da83-e93o-20l1-4g4h-ihm3l44g8n00 ANSI-Commercial 1f5h9512-1y7o-96g4-ng07-62mbr95b8m54 3q2n1793-0a9f-33u6-ch46-19tme84g9q15 ANSI-Commercial y55v7b17-755c-6r66-e893-5c380k6190zl i07k9m90-957j-9n27-d140-1j829q0606mw ANSI-Commercial 508n3256-01d3-1l9f-9a68-7k74f8e6g989 843x0537-08p6-9r5b-9z63-2e64v6d5z693 ANSI-Medicare Part B [id number] [id number]ogh0j0go928 ANSI-Commercial 76ndc438-34l4-8114-p0dx-65964y64y51o 13hti447-14q3-6976-a4bz-08266u79k38h ANSI-Commercial s5nz3z77-211r-8970-s587-5i61f4a3l9t0 a0af2v00-308b-2146-e618-1x87p3a5v4l2 ANSI-Medicare Part B [id number] 371sa191-4c9n-55a0-gvcw-3j76hx153668 ANSI-Commercial 6la8a5n2-4n7e-0119-5640-pl45p0w252r1 3cc4q3d6-7z7l-8674-9315-zj07c0x692l2 ANSI-Commercial 4nld7010-s183-15x6-g459-30xqe9dn3406 4rgo5909-p845-44x4-z752-08uhe7lt4227 ANSI-Commercial glk548n1-044o-5630-y62m-x2vx4813doy6 xgf922t4-089n-5997-n87w-a8rb9784zeq2 ANSI-Commercial b654j331-33a2-57z3-s391-47rl72oysvw6 a451j268-85m8-64o0-w226-27bi93bgbvv4 ANSI-Commercial p94z30oc-na8k-0643-r930-0o7pg6li6706 c57i76sn-ja1m-9048-f755-4q7jw8ey7505 ANSI-Commercial j34du0es-03wf-1kt3-9t1i-306e1i933n45 q14hx9bs-95ae-3hx0-7y8i-705g9y514q01 ANSI-Medicare Part B [id number] 2m4nt033-2l55-6906-ml7y-6vxr2v035f68 For Life - WPS [facility] Part B [id number] Family Dependent [id number] [facility] [id number] Self [id number] Medicare (Part B) Medicare Primary [id number] Self [id number] ANSI-Medicare Part B [id number]-[id number] 6252p802-z0m4-7m6q-w923-4d2r0v63d382 ANSI-Commercial 26z9c188-30g4-806i-0ys2-14776ni9k356 67f3a598-38x9-577e-4al3-23065cy7d801 ANSI-Commercial 66q1uo8b-9402-0036-s26g-6m5y31m99k4c 59b0zp4n-4061-2865-v83x-6m6a20g12d0f ANSI-Commercial 7796ka21-0743-8285-w483-99s847g820f6 7251ci55-7779-6068-x749-64t951l466b2 ANSI-Commercial 5b6k3eb2-9p48-5420-40dm-090c42762l82 5y1i7ft0-3y68-4132-34ld-240j38086h67 ANSI-Commercial zo11c4dg-z7kv-1y04-fc76-iyfo3e110278 aa86t9yj-u7od-7h84-fj74-trzi7p000199 ANSI-Commercial 930d4916-75fe-4os2-4516-769qf1x3i5r6 408t7272-77nm-4uz3-5418-302ke5a9h8i4 ANSI-Medicare Part B [id number]-89pe-v5hm-b01d45d741g6 20699k1i-ks2t-01dm-t1rl-o91r55n659q8 ANSI-Commercial 6h81q7y4-p7z1-9821-ge36-l6jn1b7047ch 3q11v3k3-a8o2-1602-dm65-q7hk9f4802cn ANSI-Commercial 9qq9er0u-td05-062d-0185-e9e8e2k3822p 8sm9jb3y-qc69-277t-1680-x3b9k3b8811t ANSI-Medicare Part B [id number]-6099-r4eo-6s8p76e0v5mf i80o1t36-2v1h-0798-e2ra-3u1d70b9y1ec ANSI-Commercial w2y95re9-1xft-8875-k0s2-0839028cwm8o c9t11qt5-6itg-2235-g5v5-0726427oeo3i ANSI-Commercial p9y14044-q35j-213c-zo67-wmwnu4h7t8d4 k2l41257-a06f-236b-gw45-taesq0p4v3m9 ANSI-Commercial 916p33z0-6062-68a5-ty94-049l03yiqp47 781g17m4-9538-30c1-tz13-905d25fcqt73 ANSI-Commercial 5675liwb-562t-7i398v93-6d05-1149f95836fu 9493romz-462i-5j097w86-5g02-4940u81027tn ANSI-Medicare Part B [id number]-h8g83osbd23r 09t50093-i514-86t3-4axd-c5x89wfgk53c ANSI-Commercial lc855p17-5052-7n6h-61dw-81h679dxyb0h wm543x15-8949-3t0j-73ix-34y766xyyn0q ANSI-Commercial 768209n2-3f57-9z17-5h94-7u8y8554093h 875424g6-0d63-5u43-6x84-1o2x1235544e ANSI-Medicare Part B [id number]-dv68-5o9s8i30002i 03553m81-e6qz-81k8-zw36-8b6v4p85761d ANSI-Commercial 7006l80m-76p5-05t5-l492-vn0d813k918g 3818r42y-50b8-43d9-q718-yq5p363c682l ANSI-Commercial s230m4z8-78rm-93bm-7291-brmw9n822829 o976m1v8-97rk-86kw-9815-hkra1e856683 ANSI-Commercial pddge39q-6l91-73eq-a103-60rl544zf117 cbsmp64j-7a24-02ph-w173-82zj490ao531 ANSI-Commercial 24fk8zj7-6036-893e-gau5-262sc06y2g7f 30ld7bk2-3184-867t-sdg1-836wt88j8x3w ANSI-Medicare Part B [id number]-028t-y75w-[id number] 395m9242-x85y-079m-n76q-54f9925k10s3 ANSI-Commercial 9680205j-s7as-0qxu-pvi8-14t93nh38i3h 9825344b-r3uy-3jjp-ukn6-71h41ph44d8z ANSI-Commercial 3271e921-5c34-9t60-24tj-s9wm4n6e3w07 1367j137-7j52-9g15-32le-l2vx4m8r9v24 [facility]-Medicare Part B [id number]-pe7x-[id number]-9789-68sr-rr1n-2437177562kp ANSI-Commercial 543z9cb1-211h-967o-6xl6-6p013w73481h 465g5ns2-744t-275m-8ta7-1t266j27479j ANSI-Commercial o2174g08-3248-5y7y-g5ii-h2527k631z6h p8439f03-0212-7e9o-v1pq-b2476w025w9r ANSI-Medicare Part B [id number]-[id number] j50y3jz5-26a1-6e89-779s-d59629g026p5 ANSI-Commercial 57u5m351-6ew4-56a6-cp53-z1l9m3bp118q 77l7j521-1yi0-58o7-xb46-h8o1i4jb340r ANSI-Commercial cll43671-u405-751h-o673-j45812q883ps szi71133-g252-966h-q344-h54042g067fs ANSI-Commercial 47bl7073-29c2-7031-916g-l83f0i2681a6 13qj5134-73c9-2945-179u-y45x8p2619o4 [facility] [id number]-5766-c4n31vdsp3z8 57a471a4-4h17-99db-8909-w9i34xnkv5m3 ANSI-Commercial i42111po-vl5q-0y1q-154r-m21n6g02au31 v40344tl-sa9j-5l0c-968d-j23n5o49sm08 ANSI-Commercial h669aj31-5a8w-2825-t54h-x8n5312053c9 c803as72-9k1s-0995-l93i-c5i5024151i5 ANSI-Medicare Part B [id number]-4075-0q4h-urf00wap571c v68kr3d6-443r-7257-9s0j-qcx46ahz002h ANSI-Commercial ctwo6442-60q6-07p5-sy31-15d204k5z24x wogz8280-32l4-52x5-iu41-46k660s1u87j ANSI-Commercial xy3xyf43-p40k-17qz-1ag9-l210s00xr4zy ll2gen75-k55t-08ew-4kf7-z643i14gc5ah ANSI-Commercial 57243a19-07sl-3q72-916p-53zv0qx61152 59966g47-04ec-7w48-719y-01lx2ce06400 ANSI-Commercial r0g0s1pw-5279-2z85-e4ra-653b7r5v012y v9f0p1no-7224-0v42-m0ty-404n0k9w394a ANSI-Medicare Part B [id number]-v5cu82ff546m r2jg5sr3-w5q8-9135-82cc-d3lf41xu811d ANSI-Commercial p5mw843t-6787-2568-e98c-2920lc9lm911 n0as546x-1448-3781-o47s-3071sf9gr282 ANSI-Commercial 8rkj0030-s0b5-4801-69vm-7p4h2gbx0ul2 4own8285-f6v9-3769-64lv-5p3z4tjq3se8 ANSI-Commercial 55u0f7k6-5m55-56i9-i965-brxgqx8052pu 54u9b9k5-1x39-38k7-f420-mskbmo2640rz ANSI-Commercial e92q2647-575w-8h84-2g9y-7w1304rb5969 o90z6402-235t-0u14-5b1o-4h5377pd6927 ANSI-Commercial t09ho95e-83fb-2233-1gr4-n01d9x737x4k b49uz21g-50qz-3018-3ec3-w63s1g755k8o [facility] [id number] j2u8x2wd-87a9-8q03-7333-5wag2x674882 ANSI-Commercial 7550d437-5538-30ci-q834-e539uz8lmas1 5418n850-3318-54do-g330-s249th2kshe3 ANSI-Commercial j01s4770-73t0-53pj-r0ga-v86v5kag68w1 e42v7788-31q6-33do-t3an-y97g0srx02l6 ANSI-Commercial 72a843ws-6etw-01j5-5k1w-03a82919p59b 71l369rr-7ond-04w3-5l3y-71r87614y06o ANSI-Medicare Part B 87a4y8k7-7m33-43i2-n679-7yv468e47kq4 92g4q0v3-7j71-86y6-a528-3ce069n82cv7 ANSI-Commercial zu38i8u3-l59g-80nw-hq8s-59gmv080u3uh jo25l8s2-d29f-65ny-ih2x-27mdm365w0sm ANSI-Commercial xr2xcpr1-0d2b-8q8p-96a0-1d3d3hu3796d tq9brdo0-6f9d-4n6u-13v1-8q9h1xq7894d ANSI-Medicare Part B xxg195m3-bb9j-7z57-z6or-6ag2m8546e7f grj880c6-xr9u-0q93-e0kc-0qb4z8283v7c ANSI-Commercial as0x942a-7928-7fj7-x460-11tx7g68oz1k rb6x754o-4362-7gv0-w893-52hx6l45vj0e ANSI-Medicare Part B c2m376m2-eul5-9902-79w7-9nq52473i00d v9g368x1-hxo6-6980-91p9-2nu31981w36p ANSI-Commercial b06q006l-0ef5-3f2t-6106-311mn9fty602 q20q693v-0mh6-7f2u-8508-682hv3krp621 ANSI-Commercial 712w49wx-c2t4-5717-t830-o4w2076y0jra 714f96rx-t1t7-4654-o037-u7j8543v3mpq ANSI-Commercial 9z4881gc-22x2-0166-449b-g7040wfx9670 3y6567rv-80i8-8901-371a-m1787lho5542 ANSI-Commercial 79y6s927-tw5q-2a53-8590-82e71890hqg2 46z9r657-if0s-5m02-0292-96c59826pqu2 ANSI-Medicare Part B s801jr75-84l6-61b3-88ft-j46m52cm7lsm v737pn44-44r9-88v1-69ot-d89h24te5ifi ANSI-Commercial 0bb7h82n-hz65-7o74-hz1s-36609cifl44x 7gs0x73y-vp78-4a38-gt9w-12056grji98y ANSI-Commercial f48h91dx-f02l-88a3-g194-896765512x09 d01q72cm-r22c-21k1-d338-024412164w76 ANSI-Commercial r331bnqg-yp35-5knt-czg8-cve0214998co z579wpgy-os89-3uin-xpc0-kcp9626909kz ANSI-Commercial rf67219s-i0tw-3lb5-u36p-8px5zu360klw ra81666q-c2jv-8me3-f70q-8lg0ij823bce ANSI-Medicare Part B f99j007a-2h3l-0240-eeu2-0my3v2ke47h7 g22n978r-8c3e-6795-svj7-9dx4c3as80e6 ANSI-Commercial 3kk3z6fm-0m6g-1a79-1v22-644hn6ox6c7p 8mu3l3ei-1e0e-7v45-3u08-455yd0nv4n0v For Life - [facility] [id number] 2.16.840.1.364010.3.227.99.572.35618.0 Family Dependent 1 [id number] r [facility] [id number] 2.16.840.1.639870.3.227.99.572.303 39.0 Self [id number] Medicare (Part B) Medicare Primary [id number] 2.16.840.1.434504.3.227.99.572.85621.0 Self 2 [id number] ANSI-Commercial 50w72115-95pj-0as3-0153-5160wh8489j9 40x29210-85xe-4kq6-4176-4019wl6734t5 ANSI-Medicare Part B 64791e21-u5ai-3293-b493-838tt5275d2q 27742c42-b6fg-0967-m881-366ds5672v5a ANSI-Commercial s52ep764-97zc-2s56-b2e1-035e7609b470 f44on802-14pw-9y21-p8h5-793z1937u834 ANSI-Commercial 45i758o9-93ti-5242-27rc-85rx8c276859 00z291z7-01cv-0939-73qk-50pk0m433760 ANSI-Commercial 7o1h62pr-6313-38a3-sj4m-58s4k2ee018r 3x2a94dr-7849-85z8-wp7j-22l0p4en864g ANSI-Commercial 379841z5-z5mh-085v-odm4-2m2804419r02 940787s4-m8sh-195t-yvy6-6z7734545q39 ANSI-Medicare Part B 157aza2g-5780-7852-9v6w-5u80iu9695pk 691evh1g-0431-1234-8o5w-8i45my2653ld ANSI-Commercial 97sniu9r-8z2f-9tx4-i9e4-13ft03533mq6 88vqos4h-1u2n-1jz2-z2b3-29ac08807fe2 For Life - [facility] Part B [id number] 2.16.840.1.041333.3.227.99.572.08890.0 Family Dependent 1 [id number] [facility] [id number] 2.16.840.1.602814.3.227.99.572.303 39.0 Self [id number] Medicare (Part B) Medicare Primary [id number] 2.16.840.1.083123.3.227.99.572.11936.0 Self 2 [id number] ANSI-Medicare Part B 0110jh9h-2729-0fv3-e61i-w1o6j152kb23 0629ru9r-6555-1pe5-j57g-d8g9t061zc04 ANSI-Commercial 3e662i65-8h08-6797-z62b-ht7e5l584t20 7a338f92-3w80-0242-n96j-hp7i3a953t49 ANSI-Commercial 7448a5s0-48qj-8e91-315y-858605947013 5341z8x3-65ed-6j49-476s-336892980513 ANSI-Commercial 84z0n209-9p15-9310-m2z7-lw3bf14vf6oc 86y0f364-9s86-3275-z8y8-as1uj26dp8hi ANSI-Commercial vqq51mp6-305p-336c-o101-7s4940h35466 xls29mc1-327e-414h-j818-3q0602y32057 ANSI-Medicare Part B 962jy656-351z-572o-6cr4-03c6nwpd2643 639nr360-435r-580j-7wp2-83u8asng0954 ANSI-Commercial 6b0wj0v0-9929-2k76-i75a-5m898j6f9766 6z2wl0c1-3703-4b52-s21z-1c200n6l1428 ANSI-Commercial 1sh453in-c897-6496-s994-37bt5b74z353 3mi142hy-d685-8638-p307-57bf0l01n539 ANSI-Commercial 5pw28v0p-qbr5-9608-m171-m950kxs67x14 2yy10o1r-lgq9-8667-j302-a327lcc28x10 ANSI-Medicare Part B 3h8k66r3-794j-46pr-e4f1-96g66awky4e6 7d8i39b5-139r-07ki-z2o6-27o80ezmg8g5 ANSI-Commercial veu7sdru-622o-926i-z778-1713st45htn5 noo2lhmp-064y-754e-z404-6384ol67gpm3 ANSI-Commercial 06bb65b2-200z-18n0-0799-9td27crw9x68 64ay02y8-715i-73r7-7995-5db30bfb3h99 ANSI-Medicare Part B o1557880-wwf9-5140-639g-3xcy2839y285 r7595604-pcn7-0353-368x-4tba0799w993 ANSI-Commercial 117857k7-8a98-5h02-i744-9r38341p2565 229615d1-4q16-4n96-k418-7u38636b2296 ANSI-Commercial lle616zs-5tc0-54g1-vmz2-fhh1751p1a27 plc690jw-8ix3-36i3-ahr9-lky6074p1u92 ANSI-Commercial 14c218w0-kr09-3q04-033s-y1k6ke2q53e8 54f640x9-oq24-8n91-343x-y9i3ke4c60x9 ANSI-Commercial 6x466o2d-itq2-1s16-5v28-4763k988tmd8 0j884o6a-oqq0-7g98-2w80-2080d579szr8 ANSI-Medicare Part B v51350l9-4978-5390-337j-o8ncg8ya585d o16769c7-3251-4115-068o-i1muz2gv659f ANSI-Commercial s2n1n6c1-480q-9004-qq71-6rbww4t9619a a1c0j0j3-170y-5397-du33-8vtld3p7456w ANSI-Commercial 3537588g-51j8-5j74-f6g8-q96279b1i2l3 7655758k-43q2-1o77-s6w1-y55852u4m2q5 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 (HMO) 11 [id number] .1.189871.3.227.99.8646.8124.0 Family Dependent 1 [id number] i Medigap Part B [id number] ..1.690061.3.227.99.8646.812 4.0 [id number] [facility] [id number] 2..1.049474.3.227.99.8646.812 4.0 Self [id number] Medicare [place] Medicare Primary [id number] 2..1.871329.3.227.99.8646.8124.0 Self 2 [id number] ANSI-Commercial mo52lcv1-51o3-5i90-uj3i-mt1p8377n35d nk47hnd1-08u6-3c18-km3m-dx0r8365h73v ANSI-Commercial e23h2cj7-9l14-0326-293v-uw8g25b4p844 n92c4rg5-3f89-1148-246i-gu2g40e1k830 ANSI-Commercial z411e04x-p870-293o-tl0n-og4ax68u35h7 f770q43y-w415-476n-zl7u-yy6vb92z85d5 [facility] 6r4zx5g4-60fu-6ox8-x680-768h07129898 8v8zo8b0-16ry-0pt8-l706-097c50249810 ANSI-Commercial 21q01402-5q8a-7y77-2a15-s81306481i54 81e59609-1c4a-1s55-8n29-h95724982a37 ANSI-Commercial 65hsveh3-x4tu-1627-qn61-lh5x7n7880iz 38nsxfa0-a7na-9528-ld12-bp9y3y0013vn ANSI-Commercial 851a4315-7gr8-7oy2-6994-1yq3058p5275 552a8494-7zl8-7vr7-0235-7ux3011u0865 [facility] t07as4s8-al11-2999-r2v7-b0aee7j4co88 h79ik5t4-cb79-4569-f9l7-j5gox2m2cd55 ANSI-Commercial 567ahtfo-9167-5226-944d-ztv3j4cbl45t 808vzmow-9552-5804-944d-hkr4o9omu89z ANSI-Commercial drf8iy54-5949-1fp0-114j-3mgr6yvs5u31 xky6rf51-8232-0ln1-608u-3ljf4cul7x90 ANSI-Commercial 3jby8hy3-16h0-2175-3vs9-1y6c4794we24 1ajj9ib0-26f9-6329-5vp3-0j6w4858zk60 ANSI-Medicare Part B ck3z2001-0gw9-48r1-e63z-xe698uw3k99x sa5f3499-5it2-39d5-v50p-st163dv5b51u ANSI-Commercial 0bn4065g-912w-2556-iwz6-eu9281zk22fi 2gn3661i-617o-4136-ncr3-uv1183ts24xk ANSI-Commercial 9l36ap6a-723x-97q1-ae98-9749296j346r 6b03ei7p-804w-25y7-qz46-2888845v659a ANSI-Commercial 05972027-c31j-2563-g851-89u328oz41pz 35929128-k56z-5877-h632-23j880aw14sr ANSI-Medicare Part B 4id890nk-359v-2033-nm88-7nms9434105v 4av760xf-092x-6847-yt88-7zwp5882222l ANSI-Commercial o78qe2sr-d4w5-00j5-0q14-870i251f68s8 t87ze9hg-y6m8-40y0-7z04-044f212n31y1 ANSI-Commercial 1856u969-n09d-7924-053m-74fa0ae6677e 4645i337-e05s-4553-521e-68uq5qx0252h ANSI-Medicare Part B [id number]-[id number] 163m58j9-47uu-4r04-7q25-57wgi7l484j1 ANSI-Commercial qun91m4g-q0hy-2y06-0j9f-45a0jx063e06 sxz69d2p-m4gg-3e48-5k7u-54b5wj927i90 For Life - S [facility] Part B [id number] 2.16.840.1.723847.3.227.99.572.38666.0 Family Dependent 1 [id number] r [facility] Part B [id number] 2.16.840.1.581734.3.227.99.572.303 39.0 Self [id number] Medicare (Part B) Medicare Primary [id number] 2.16.840.1.307448.3.227.99.572.80835.0 Self 2 [id number] ANSI-Commercial 5b01c310-l1i2-2946-0lox-fi99qcwj6264 5e12c589-d5j6-3680-4ieb-nt58ttsa1996 ANSI-Medicare Part B [id number]-wyor-[id number] t9cv641x-676g-40p1-yvyy-bm43756j3ii5 ANSI-Commercial 5yos9ia7-6926-54e2-g661-6425c2q13j45 4crs7ix2-0369-73z9-i445-8536e8n53a40 ANSI-Commercial 75p840v2-7ne3-97d2-j835-9405144ct0jv 74m934k9-9hc8-69b2-a996-1499283jx7yi [employer] [id number] S [id number] MEDICARE - [place] [id number] S [id number] ANSI-Commercial 1r10795f-4811-9od0-6uz5-4d314hu0z465 5i87320u-1752-0xu3-7sm7-0s883qc3a644 ANSI-Medicare Part B [id number]-[id number] s5169g62-9u50-712o-5t05-aq2p36907g0u ANSI-Commercial g16s94c9-68vl-0obp-e0n8-9dit13syj6tm o46d40v5-84wo-9tdg-q4m4-4hvs97vpe2yn ANSI-Commercial z257i534-r554-34gv-jlyb-99359k9hf745 h371i059-b842-34be-goyj-79150t5lv088 FOR LIFE [id number] [facility] [id number] MEDICARE [id number] A ANSI-Commercial 6o549u52-g504-27y5-54y3-3y2g791f926g 5j488p08-v586-68v4-76x8-2t1y366l865h ANSI-Medicare Part B [id number]-[id number] 8iv70838-24a5-0026-0rbx-700091d00013 ANSI-Commercial 345j166m-8fv8-473a-z9u3-s3om6695990h 541y966y-5gx0-755g-b2m7-i1ra6505587t ANSI-Commercial 1q1247h7-jjah-0w6v-pzx8-j8c24f5o9s85 4p4227z1-xazd-6z3g-ktf0-u2y76q9c0v58 ANSI-Commercial e7q14683-1560-0m06-e532-755p3mvgbj6v v6n30982-2232-8h84-p210-438v7bdxbv7z ANSI-Medicare Part B [id number]-[id number]-h741-58fi-br81-57929z078663 ANSI-Commercial 5j05u22h-914j-9665-bc61-3r25uuo9s37y 5b49b45v-521v-6969-dr31-0t25rkc3a04h ANSI-Commercial 329fzz77-aui2-023i-y471-136a40334191 163huf43-ank7-684m-h711-862s85147808 For Life - [place] Medigap Part B [id number] 2.16.840.1.125504.3.227.99.572.21447.0 Family Dependent [id number] [facility] Medigap Part B [id number] 2.16.840.1.406292.3.227.99.572.303 39.0 Self [id number] Medicare (Part B) Medicare Primary [id number] 2.16.840.1.180763.3.227.99.572.85183.0 Self 2 [id number] For Life - WPS [facility] Part B [id number] 2.16.840.1.482473.3.227.99.572.15176.0 Family Dependent 1 [id number] r [facility] Part B [id number] 2.16.840.1.720421.3.227.99.572.303 39.0 Self [id number] Medicare (Part B) Medicare Primary [id number] 2.16.840.1.970728.3.227.99.572.71841.0 Self 2 [id number] ANSI-Commercial rqz577tz-0b20-18rt-2d58-b15fs830t214 pan785ra-3e27-14xv-2m06-x22sb167b325 ANSI-Commercial i439ky36-3r53-7t49-z8b3-62j2qsl8si26 z615lx93-6a06-2j93-d9t8-47h8xlw7vj58 ANSI-Medicare Part B [id number]-[id number] [id number]-0175-073b-t146-10793d44m29a ANSI-Commercial 02oia3x3-7m10-7pz6-[id number] 03wjd0b8-4q00-8pj7-sv78-1n4792859127 ANSI-Medicare Part B [id number]-ss1o-[id number] 135286k5-84e5-4f12-zy4r-5356c2l4492t ANSI-Commercial 672168ud-41p3-189c-75p5-v9t73g3x05lj 198508hm-80r0-977l-56f8-k8s31p7q78sl ANSI-Commercial 09880694-9ve8-9206-s056-7rv4sww55d9y 01210502-1wy5-9909-t864-7yc7vld53x0a ANSI-Commercial 6501b380-g2p2-1t65-j556-vs48h7ml6w70 1053p257-y2z5-8k00-j851-ol99x9mk6t99 For Life - WPS [facility] Part B [id number] 2.0.1.771476.3.227.99.572.72358.0 Family Dependent 1 [id number] r [facility] [id number] 2.0.1.793303.3.227.99.572.303 39.0 Self [id number] Medicare (Part B) Medicare Primary [id number] 2.0.1.617716.3.227.99.572.79271.0 Self 1 [id number] [facility] [id number] SP [id number] [employer] PPO O [id number] S [id number] MEDICARE C [id number] S [id number] A [place] - PHYSICIAN [id number] 01 [id number] [facility] -PHYSICIAN [id number] 1 [id number] MEDICARE PART A -O [id number] 18 [id number] [facility] -O [id number] 18 [id number] MEDICARE PART A -I/P [id number] 18 [id number] [place] - I/P [id number] 01 [id number] [facility] -O/P [id number] 18 [id number] N [facility] CLAIMS [facility] [id number] 01 [id number] For Life - [place] Medigap Part B [id number] 2.0.1.099680.3.227.99.572.25134.0 Family Dependent 1 [id number] Medicare (Part B) Medicare Primary [id number] 2.0.1.551329.3.227.99.572.70530.0 Self 1 [id number] [facility] PHCS Ppo Medigap Part B [id number] 2.16.840.1.936853.3.227. 99.572.77750.0 Self [id number] For Life - [place] Medigap Part B [id number] 2.16.840.1.781456.3.227.99.572.05002.0 Family Dependent 1 [id number] Medicare (Part B) Medicare Primary [id number] 2.16.840.1.020061.3.227.99.572.95539.0 Self 1 [id number] [facility] Standard Health Maintenance 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 (HMO) 11 [id number] 2.16.840.1.698727.3.227.99.8646.8124.0 Family Dependent 1 [id number] [place] Medigap Part B [id number] 2.16.840.1.381539.3.227.99.8646.812 4.0 Self [id number] [employer] Medigap Part B [id number] 2.16.840.1.284002.3.227.99.8646.812 4.0 Self [id number] Medicare [place] Medicare Primary [id number] 2.16.840.1.334638.3.227.99.8646.8124.0 Self 1 [id number] For Life - [place] Medigap Part B [id number] 2.16.840.1.939056.3.227.99.572.19884.0 Family Dependent 1 [id number] Medicare (Part B) Medicare Primary [id number] 2.16.840.1.957634.3.227.99.572.45938.0 Self 1 [id number] For Life - [place] Medigap Part B [id number] 2.16.840.1.288652.3.227.99.572.08015.0 Family Dependent 1 [id number] Medicare (Part B) Medicare Primary [id number] 2.16.840.1.843972.3.227.99.572.30538.0 Self 1 [id number] [employer] [id number] SP [id number] MEDICARE [id number] SP [id number] A Medicare (Part B) Medicare Primary [id number] Self For Life - [place] Medigap Part B [id number] Family Depen dent [facility] Medigap Part B [id number] Self Medicare Medicare Primary [id number] Self [facility] [id number] HU2 [id number] HEALTHNET/ AD O [id number] P [id number] [facility] [place] O [id number] S [id number] HEALTHNET O [id number] U 1 [id number] [facility]OM[facility] O [id number] S [id number] MEDICARE OUTPATIENT M [id number] S [id number] HEALTHNET O [id number] U [id number] MEDICARE [id number] SP [id number] T96 [id number] UMR [facility] [id number] SP [id number] FOR LIFE [id number] HU2 114 [id number] [id number] 0 [id number] UMR [id number] 0 [id number] Medicare Part B [facility] [id number] 0 [id number] UMR [facility] [id number] SP [id number] FOR LIFE UNAVAILABLE 01 U NAVAILABLE [facility] MEDICARE PART A DE [id number] 18 [id number] UMR [place] [id number] 18 [id number] MEDICARE PART A -O/P [id number] 18 [id number] UMR -O/P [id number] 18 [id number] [place] - O/P [id number] 01 [id number] MEDICARE [id number] SP [id number] [id number] MEDICARE [id number] SP [id number] UMR O [id number] S [id number] MEDICARE C [id number] S [id number] FOR LIFE O [id number] S [id number] MEDICARE PART A -O/P [id number] 18 [id number] [employer] [place] Other 0 [id number] Self 0 Medicare Part B [facility] Other 0 [id number] Self 0 ANSI-Commercial [id number]-cb2o-61b8-080l-[id number] 87322a90-qs6w-13v8-161v-08wj4417w5b9 ANSI-Commercial 8w794c06-400y-4336-o030-m92r696c2h87 3j058z87-129r-3258-m922-l93r349b4p72 ANSI-Commercial 1t38m58o-e730-52tz-az31-kl48vrn7u2s8 8q26o45a-j630-76fu-tg14-ye69tzi3c1y3 ANSI-Medicare Part B [id number]-[id number]-[id number] ANSI-Commercial 93222trb-a03q-6nv2-z29f-038vw2mbkt8h 21020wrd-s77r-4sg1-h12l-403cx0xdgs4t ANSI-Commercial [id number]-9982-q77a-r85g52147911 [id number]-6580-v26e-y00t16596248 ANSI-Medicare Part B [id number]-c3m4-77036v94e6io ANSI-Commercial l6740w6p-c845-22bu-mg33-77x4a660m7bm d4908i8p-m258-51sq-ua09-81v5d529x8ll ANSI-Commercial 4d743077-0d1a-8201-4cu0-8l66r30y15vx 9t179158-6r7a-9918-8co3-0c81n96g28ck ANSI-Commercial 047677wl-2622-1260-5b96-4y2c2d906l47 267727ms-9228-2568-5t47-9k4l5x247q23 ANSI-Medicare Part B [id number]-p41d-6004-m812-za2t1g70c606 ANSI-Commercial 5s6j3851-s7s4-0p3j-2yz5-536252b03b15 1n1l4349-o2v7-7m8q-0me9-456753a55r55 ANSI-Commercial h5d1g98k-q8k8-053r-8527-3tm547138vm5 b5a2p45w-y4u1-563t-7585-2jn360765pv9 ANSI-Commercial t209qt66-1c75-484u-di22-454bs9us697u n700ue60-5b21-639n-py59-763ia3dh037r ANSI-Commercial 683m5413-453e-4p28-9uh3-3tvm02j73g6a 132h5427-185c-1j24-6mv2-8aoz83l31u9g ANSI-Medicare Part B [id number]-7r03-8q7w-l9n8-63xe5yy192e4 For Life - [place] Medigap Part B [id number] MRN.[id number]-t2192ozw5bfr Family Dependent [id number] Umr Medigap Part B [id number] MRN.572.[id number]- [id number] Self [id number] Medicare (Part B) Medicare Primary [id number] MRN.[id number]-[id number] Self [id number] [employer] PHCS Ppo Medigap Part B [id number] MRN.572.[id number]-p8598imq1zgv Self [id number] ANSI-Commercial 380tt5qw-m87l-7229-6s1m-8bkv9h4e3d89 396gj0aj-x15q-0740-3z8q-4rof0w2e9b76 Problems, Conditions, and Diagnoses Code Display Name Description Problem Type Effective Dates Data Source(s) I12.9 Hypertensive chronic kidney disease with stage 1 through stage 4 chronic kidney disease, or unspecified chronic kidney disease HYPERTENSIVE CHRONIC KIDNEY DISEASE W STG 1-4/UNSP Diagnosis 08/02/2021 11:33:00 AM [facility] R80.9 Proteinuria, unspecified PROTEINURIA, UNSPECIFIED Diag nosis 08/02/2021 11:33:00 AM [facility] E83.52 Hypercalcemia HYPERCALCEMIA Diagnosis 08/02/2021 11:33:00 AM [facility] N18.30 CHRONIC KIDNEY DISEASE, STAGE 3 UNSPECIF CHRONIC KIDNEY DISEASE, STAGE 3 UNSPECIF Diagnosis 08/02/2021 11[facility] CHRONIC KIDNEY DISEASE, STAGE 3B CHRONIC KIDNEY DISEASE, STAGE 3B Diagnosis 08/02/2021 11:33:00 AM [facility] R109 Unspecified abdominal pain Unspecified abdominal pain Diagnosis 05/31/2021 03:28:00 PM [facility] 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 Co mplications of stem cell transplant Diagnosis 05/16/2021 10:55:00 AM [facility] Q67933 Uujzp-mlvynr-iedy disease, unspecified G rmpk-wppssk-cfpu disease, unspecified Diagnosis 05/04/2021 01:00:00 PM [facility] D471 Chronic myeloproliferative disease Chronic myelo proliferative disease Diagnosis 05/04/2021 01:00:00 PM [facility] 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 Diagnosis 04/05/2021 01:18:00 PM [facility] 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 Diagnosis 10/05/2020 12:00:00 PM [facility] D7581 Myelofibrosis Myelofibrosis Diagnosis 10/05/2020 12:00:00 PM [facility] [id number] Essential hypertension Essential hypertension Problem 05/31/2021 12:00:00 AM EDT [facility] ([facility]) R13.10 [id number] Dysphagia, unspecified type Problem 05/04/20 12:00:00 AM EDT eCW1 ([facility]) F43.22 [id number] Adjustment disorder with anxiety Problem 03/26/2021 12:00:00 AM EDT eCW1 ([facility]) E27.40 [id number] Adrenal insufficiency Problem 02/18/2021 12: 00:00 AM EDT eCW1 ([facility]) R94.31 Electrocardiogram abnormal Electrocardiogram abnormal Problem 02/10/2021 12:00:00 AM EDT [facility] (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 Results ID Date Data Source [id number] 08/25/2021 01:45:00 PM EDT [facility] Name Value Range Interpretation Code Description Data Aminta rce(s) Supporting Document(s) First Visit [facility] TYJCXq5aRrEZHfXvNAHgTrrUMUxcKEpyMHKrM1W3QYkpTp9SZCydkfIiYSUhTd0+BBQyVH6ems7fTGEz gMy [file] FA2ZsgmYA8SiYKuX+mHYl33VskBTcm8MCn3xoCxnHD1dbVz8FUqk+ASSISTANT ATTORNEY GENERAL/Ouz0bGWwQqKcJpk1ET2rxuG iz9HOc/9lGoDJqG5frncrEBH9VCRLdJdtQTySq05ly 95A0tvuNQ0orN8wZOuRevxz1rDKvmbQhSAQr9aHy6V42rYCxRDzJhSt2Y/Aq3I/kAiI1w6XEtblao7lN fG6nw6xdsvathTs9dGSsu3LI5jUL/l4WQu+LF7CK7NroQeXQ5lAJ5KA4Pbf/q0c3A0BTZOOm+CFXlMP5 w/gZLluW3fgJeVPMAJpm7Y5e1GVRN6YDCgO2FjiS95 IJ2ZYMTNGluK0v25iYYfFuTwx5kGbiOXX24ohyZmis3k2YsjMfrDLlMv8W3Opgx4kvvJX1eg3PbCV9L/ HCCk49Zj+gmtyofKxzdMJmN8MOFG6etbmwgPa34CKKJdWveZXmujKP/dA7ivgt1IRAJIv0JTrZ0f2XKC uUedp5S53WzgUe/CCcjqD58lEU1lxOwb2nXzKtnzvE Hsn8ZmfI4FVoKHIHH3y4QdHNnhNpVPnxpSS2gRTKLeLA3Yp7GQ0JR50bgXd6wN+hOv8fRulfNGjDlluQ up9mqxXM6qy1fiHbK72Cw5HbMMuEeoxidm7SafVxh5y8/Lindsay/Hvw2t0evMQstMAT+LqNcO9XEBQW3m1J [file] Packaging Engineer+8PemV8oqitsy9oh1hNNqJO1uXIEBrh9zGzL1N+jWyBIxHnLfLqB/508VdOL26RNhXUYrEDRCMgaC+ [file] UEInT5kxnSTmQK6+U+Fno3rP/kpqNe/HxnQfjQ+field contractor D62ynwhG0cRHBkXyNCJBVThlzxPdjXKvAJR14O3SBIRt3bpIecNx2N04Tu3wzCj5UwjV9nJsk+fh5nBN uHi3guDyHK+pQ9/CZCU2qteCpF2/1EjkJTQbU7ZFZ5cE0j2JgsNFfcdETMt8frIavpAf50bAbQPb65nT IfbM0zQg33O8OO89usKk3+L1dqYfF6rc4ySBdHJWq/ 4DhokWaHv0bydi9YbSdOxUV8oim3Rgp/lUy9XuSTQytEnBUd3+VEhi8LF4jWFnfXeC62/OEsoQMWuA6s 4LvE3m21rxEuv5s2v1/83uj6ycM5AKBKauk93bgOQSPj+TUz8Nro2boaRedfJLYfuFWM3GZrL/ANYr+x p1KiQDy/3gD8iL2paOYZWZb/UbmmOuVUQbirqN+LZf eeqSmQc/RoC88hGczdPoVlCZiSYZK5daygGKvydGvwMF3rBZoY3AbbiKaghjQKV5Vm+/Wlgsm/gsd/ZI oDe3y00TVjXHZufMTdgMmCYGQifz2c311YjW0cUXB4P2ntzYO8l7sCx4yCiIN0idQW5pMZ+9Y4/WV2KT jOv0R4p70Z6q6q6fnSDD14kpwp9p5hGO2kzp4W25RB [file] 12Kxt6MiNbzQw4Z7++3goOOE/hzcm9Pbm8mHyj/JsTWj26mTVZ/sample room supervisor+dsfCp6vmAznimyIsZ9J1blOPVl [file] College Basketball Coach+VVChJ8/xCSOZq0v8enwMPi7/gv5L+Q1gp18LT6FEHlcWbnVlsoQKqinXf8RP3amAXqjvAmk5hv3V [file] id60z4zg2EjsSA9VeHGrZ6MmRcq+IKNZizfopSmAxs+/gwv9VlLa/retail and promotions coordinator++xHriWi6/o3kQxenRJh0asxZ [file] yHMM0UZt+drafter castings/Jm51CEmrKA1HfChkifldMs71c7AiPaZWAkd1YJykk8RMHlc32d+lpBVdOUcmfAT1p+G [file] drama critic+ckfVTrXk5SEt1nUuRM5ngaHR2Jc8nX8jRx4j+wT/Mc+jf+cNpOgnHEyPbqSh625uVrvHJK9pSkvBz jnpovBucHA/TxEO0gGv4wnPIPqr1bi0+7U9+3Iq1Cs EQ6jfX9WxzGFLNLTfTxGQ4fGAFiQaqCoZqrv0nFjnmSzfeuPZODspPCesc7GecaK3QfvfXkiID4yfqcn HmI17KGT6vyziGm8ABBjNhmYqohiuFofqYS8mffF4MKITmu+vbg2amEbMYgQf+sYJJwEppgqJq/q4Lrt weaFeRBosZxr6f2TEbs800oEa1qjIBFVM115Tuk/BU lvbjiSUwMQ3DiSXXiuQ+AngA7TsLLsyyyAcltCzd+aPGWlroZJTIAw38p5Qan5BoP325bmRtDborkfSY uv6Bv21dX8E4XI+Dante+WNNtxX/+w+lE470o/vvv9cUWPnJSg033grhyeWXHqjv5Becg25os+ihX4ZMcw [file] Qu7tqL3IoG85CV4sQQxnexbgQ8iw9gD9xONgDjR7CkkT//Miguel Angel+4Uq7d8JBdpQBUTYZDVE9nDDIsUJH/D [file] gDDH0jVTDnesetvwN8Sv/curing press operator+XYcKe/uGMuwtv6eXx [file] jS9pEGJPxRU+7004SUVSM/coffee blender+VydHfjUqpU/f1fh+ [file] LATH TIER/tjfNlIlvr8WgQq++n8RaVhL6T4qlVIW/bmw+zKH [file] Will+HHHaENr8URuM7SWIlxVGB2isHIYVTuaRS8+tMsF9FLR1sq2MxEFSlEAfyogSqBnlEQAralYMhnAtw BRSVUmb6MuP0OU9WICDXD5B= ID Date Data Source [id number] 08/02/2021 12:17:00 PM EDT [facility] FAX [phone] Name Value Range Interpretation Code Description Data Aminta rce(s) Supporting Document(s) GLUCOSE 169 mg/dL 74-106 H [facility] BLOOD UREA NITROGEN 61 mg/dL 7-18 H [facility] ital CREATININE 2.48 mg/dL 0.6-1.0 H [facility] SODIUM 143 mmol/L 136-145 [facility] POTASSIUM 3.9 mmol/L 3.5-5.1 [facility] CHLORIDE 105 mmol/L 98-107 [facility] CO2 26 mmol/L 21-32 [facility] CALCIUM 9.9 mg/dL 8.5-10.1 [facility] GLOMERULAR FILTRATION RATE 20 mL/min Sam [facility] GFR IS CALCULATED IN mL/min/1.73m2 STAS L FUNCTION: >90MILDLY DECREASED: 60-89MILDY TO MODERATELY DECREASED: 45-59 MODERATELY TO SEVERELY DECREASED: 30-44SEVERELY DECREASED: 15-29RENAL FAILURE: <15 ALBUMIN 3.5 gm/dL 3.4-5.0 [facility] PHOSPHOROUS 4.1 mg/dL 2.5-4.9 [facility] ID Date Data Source [id number] 05/21/2021 06:57:00 AM EDT [facility] Name Value Range Interpretation Code Description Data Aminta rce(s) Supporting Document(s) Tacrolimus [Mass/volume] in Blood by LC/MS/MS 3.5 ng/mL 2.0-20.0 [facility] Trough (immediate ly following transplant) 15.0 Trough (steady state, 2 weeks or more after transplant): 3.0 - 8.0 Detection Limit = 1.0 Performed by LC-MS/MS technology. This test was developed and its performance characteristics determined by [facility]. It has not been cleared or approved by the Food and Drug Administration. ID Date Data Source [id number] 05/16/2021 12:04:00 PM EDT [facility] Name Value Range Interpretation Code Description Data Aminta rce(s) Supporting Document(s) CBC W/AUTOMATED DIFF [facility] COMPLETE BLOOD COUNT Leukocytes [#/volume] in Blood by Automated count 5.3 10^3/uL 4.2 - 1 1.0 [facility] Erythrocytes [#/volume] in Blood by Automated count 3.52 10^6/uL 4. 20 - 5.40 L [facility] Hemoglobin [Mass/volume] in Blood 12.4 g/dL 12.0 - 16.0 [facility] Hematocrit [Volume Fraction] of Blood by Automated count 36.3 % 3 7.0 - 47.0 L [facility] Erythrocyte mean corpuscular volume [Entitic volume] b y Automated count 103.1 fL 81.0 - 101 H [facility] Erythrocyte mean corpuscular hemoglobin [Entitic mass] by Automated count 35.2 pg 27.0 - 34.0 H [facility] Erythrocyte mean corpuscular hemoglobin concentration [Mass/volume] by Automated count 34.2 g/dL 31.0 - 36.0 [facility] Erythrocyte distribution width [Ratio] by Automated count 14.0 % 11.5 - 14.5 [facility] Platelets [#/volume] in Blood by Automated count 161 10^3/uL 150 - 45 0 [facility] Platelet mean volume [Entitic volume] in Blood by Automated count 10.7 fL 7.4 - 10.4 H [facility] Neutrophils/100 leukocytes in Blood by Automated count 52.5 % 37. 0 - 80.0 [facility] Lymphocytes/100 leukocytes in Blood by Manual count 33.2 % 25.0 - 40.0 [facility] Monocytes/100 leukocytes in Blood by Automated count 11.6 % 3.0 - 8.0 H [facility] Eosinophils/100 leukocytes in Blood by Automated count 1.9 % 0.0 - 7.0 [facility] Basophils/100 leukocytes in Blood by Automated count 0.4 % 0.0 - 2.5 [facility] %IG 0.4 % 0.0 - 0.0 H [facility] %NRBC 0.0 % 0.0 - 0.0 [facility] Neutrophils [#/volume] in Blood by Automated count 2.77 10^3/uL 2.00 - 6.90 [facility] Lymphocytes [#/volume] in Blood by Automated count 1.75 10^3/uL 0.60 - 3.40 [facility] Monocytes [#/volume] in Blood by Automated count 0.61 10^3/uL 0.00 - 0.90 [facility] Eosinophils [#/volume] in Blood by Automated count 0.10 10^3/uL 0.00 - 0.70 [facility] Basophils [#/volume] in Blood by Automated count 0.02 10^3/uL 0.00 - 0.20 [facility] #IG 0.02 10^3/uL 0.00 - 0.10 [facility] #NRBC 0.00 10^3/uL 0.00 - 0.00 [facility] MANUAL DIFF NOT INDICATED [facility] RBC MORPH NOT INDICATED [facility] ID Date Data Source [id number] 05/16/2021 12:04:00 PM EDT [facility] Name Value Range Interpretation Code Description Data Aminta rce(s) Supporting Document(s) Lactate dehydrogenase [Enzymatic activity/volume] in Serum o r Plasma 305 U/L 135 - 214 H [facility] ID Date Data Source [id number] 05/16/2021 12:04:00 PM EDT [facility] Name Value Range Interpretation Code Description Data Aminta rce(s) Supporting Document(s) COMPREHENSIVE METABOLIC PANEL [facility] COMPREHENSIVE METABOLIC PANEL Sodium [Moles/volume] in Serum or Plasma 141 mEq/L 134 - 153 [facility] Potassium [Moles/volume] in Serum or Plasma 4.0 mEq/L 3.6 - 5.0 [facility] Chloride [Moles/volume] in Serum or Plasma 102 mEq/L 98 - 107 [facility] Carbon dioxide, total [Moles/volume] in Serum or Plasma 26 MEQ/L 22 - 30 [facility] Glucose [Mass/volume] in Serum or Plasma 280 MG/DL 70 - 99 [facility] BUN 45 MG/DL 7 - [facility] Creatinine [Mass/volume] in Serum or Plasma 2.0 MG/DL 0.7 - 1.5 H [facility] BUN/CREAT 23 8 - 27 [facility] Protein [Mass/volume] in Serum or Plasma 5.9 G/DL 6.3 - 8.2 L [facility] Albumin [Mass/volume] in Serum or Plasma 4.1 G/DL 3.9 - 5.0 [facility] Globulin [Mass/volume] in Serum by calculation 1.8 GM/DL 2.4 - 3.2 L [facility] A/G RATIO 2.3 0.8 - 2.0 H [facility] Calcium [Mass/volume] in Serum or Plasma 10.1 MG/DL 8.4 - 10.2 [facility] Bilirubin.total [Mass/volume] in Serum or Plasma <0.7 MG/DL 0.2 - 1.3 [facility] Alkaline phosphatase [Enzymatic activity/volume] in Serum or Plasma 83 U/L 38 - 126 [facility] Aspartate aminotransferase [Enzymatic activity/volume] in Serum or Plasma 24 U/L 5 - 40 [facility] Alanine aminotransferase [Enzymatic activity/volume] in Seru m or Plasma 46 U/L 7 - 56 [facility] Anion gap 3 in Serum or Plasma 13.0 mmol/L 8.0 - 16.0 [facility] AGE 66 yrs [facility] NON-AA GFR 27 mL/min [facility] AFR AMER GFR >60 [facility] Male GFR In terprentation [...] >32 mL/min Normal ID Date Data Source [id number] 05/16/2021 12:03:00 PM EDT [facility] Name Value Range Interpretation Code Description Data Aminta rce(s) Supporting Document(s) Magnesium [Mass/volume] in Serum or Plasma 2.1 MG/DL 1.7 - 2.2 [facility] ID Date Data Source [id number] 05/08/2021 05:02:00 PM EDT [facility] Name Value Range Interpretation Code Description Data Aminta rce(s) Supporting Document(s) Tacrolimus [Mass/volume] in Blood by LC/MS/MS 3.2 ng/mL 2.0-20.0 [facility] Trough (immediate ly following transplant) 15.0 Trough (steady state, 2 weeks or more after transplant): 3.0 - 8.0 Detection Limit = 1.0 Performed by LC-MS/MS technology. This test was developed and its performance characteristics determined by [facility]. It has not been cleared or approved by the Food and Drug Administration. ID Date Data Source [id number] 05/04/2021 03:09:00 PM EDT [facility] Name Value Range Interpretation Code Description Data Aminta rce(s) Supporting Document(s) CVE PANEL [facility] LIPID PANEL Cholesterol [Mass/volume] in Serum or Plasma 231 MG/DL 131 - 200 H [facility] Deprecated Triglyceride [Mass/volume] in Serum or Plasma 341 MG/DL 3 5 - 160 [facility] HDL 62 MG/DL 29 - 86 [facility] Cholesterol in LDL [Mass/volume] in Serum or Plasma by Direc t assay 133 mg/dL 65 - 175 [facility] Cholesterol.total/Cholesterol in HDL [Mass Ratio] in Serum o r Plasma 3.7 3.2 - 4.4 [facility] LDL/HDL 2.15 1.47 - 3.22 [facility] CVE RISK CHOL/HDL LDL/HDLMEN: 1/2 AVERAGE 3.43 1.00 AVERAGE 4.97 3.55 2X AVERAGE 9.55 6.25 3X AVERAGE 23.99 7.99WOMEN: 1/2 AVERAGE 3.27 1.47 AVERAGE 4.44 3.22 2X AVERAGE 7.05 5.03 3X AVERAGE 11.04 6.14 ID Date Data Source [id number] 05/04/2021 03:08:00 PM EDT [facility] Name Value Range Interpretation Code Description Data Aminta rce(s) Supporting Document(s) Magnesium [Mass/volume] in Serum or Plasma 2.6 MG/DL 1.7 - 2.2 [facility] ID Date Data Source [id number] 05/04/2021 03:08:00 PM EDT [facility] Name Value Range Interpretation Code Description Data Aminta rce(s) Supporting Document(s) COMPREHENSIVE METABOLIC PANEL [facility] COMPREHENSIVE METABOLIC PANEL Sodium [Moles/volume] in Serum or Plasma 140 mEq/L 134 - 153 [facility] Potassium [Moles/volume] in Serum or Plasma 4.0 mEq/L 3.6 - 5.0 [facility] Chloride [Moles/volume] in Serum or Plasma 100 mEq/L 98 - 107 [facility] Carbon dioxide, total [Moles/volume] in Serum or Plasma 27 MEQ/L 22 - 30 [facility] Glucose [Mass/volume] in Serum or Plasma 161 MG/DL 70 - 99 [facility] BUN 53 MG/DL 7 - 21 H [facility] al Creatinine [Mass/volume] in Serum or Plasma 2.5 MG/DL 0.7 - 1.5 H [facility] BUN/CREAT 21 8 - 27 [facility] Protein [Mass/volume] in Serum or Plasma 5.9 G/DL 6.3 - 8.2 L [facility] Albumin [Mass/volume] in Serum or Plasma 3.9 G/DL 3.9 - 5.0 [facility] Globulin [Mass/volume] in Serum by calculation 2.0 GM/DL 2.4 - 3.2 L [facility] A/G RATIO 2.0 0.8 - 2.0 [facility] Calcium [Mass/volume] in Serum or Plasma 10.5 MG/DL 8.4 - 10.2 [facility] Bilirubin.total [Mass/volume] in Serum or Plasma <0.7 MG/DL 0.2 - 1.3 [facility] Alkaline phosphatase [Enzymatic activity/volume] in Serum or Plasma 68 U/L 38 - 126 [facility] Aspartate aminotransferase [Enzymatic activity/volume] in Serum or Plasma 31 U/L 5 - 40 [facility] Alanine aminotransferase [Enzymatic activity/volume] in Seru m or Plasma 51 U/L 7 - 56 [facility] Anion gap 3 in Serum or Plasma 13.0 mmol/L 8.0 - 16.0 [facility] 66 [facility] AMER GFR >60 [facility] Male GFR In terprentation [...] >32 mL/min Normal ID Date Data Source [id number] 05/04/2021 02:45:00 PM EDT [facility] Name Value Range Interpretation Code Description Data Aminta rce(s) Supporting Document(s) CBC W/AUTOMATED DIFF [facility] COMPLETE BLOOD COUNT Leukocytes [#/volume] in Blood by Automated count 5.9 10^3/uL 4.2 - 1 1.0 [facility] Erythrocytes [#/volume] in Blood by Automated count 3.53 10^6/uL 4. 20 - 5.40 L [facility] Hemoglobin [Mass/volume] in Blood 12.5 g/dL 12.0 - 16.0 [facility] Hematocrit [Volume Fraction] of Blood by Automated count 36.6 % 3 7.0 - 47.0 L [facility] Erythrocyte mean corpuscular volume [Entitic volume] b y Automated count 103.7 fL 81.0 - 101 H [facility] Erythrocyte mean corpuscular hemoglobin [Entitic mass] by Automated count 35.4 pg 27.0 - 34.0 H [facility] Erythrocyte mean corpuscular hemoglobin concentration [Mass/volume] by Automated count 34.2 g/dL 31.0 - 36.0 [facility] Erythrocyte distribution width [Ratio] by Automated count 14.0 % 11.5 - 14.5 [facility] Platelets [#/volume] in Blood by Automated count 130 10^3/uL 150 - 45 0 [facility] Platelet mean volume [Entitic volume] in Blood by Automated count 11.2 fL 7.4 - 10.4 H [facility] Neutrophils/100 leukocytes in Blood by Automated count 58.0 % 37. 0 - 80.0 [facility] Lymphocytes/100 leukocytes in Blood by Manual count 28.9 % 25.0 - 40.0 [facility] Monocytes/100 leukocytes in Blood by Automated count 10.9 % 3.0 - 8.0 H [facility] Eosinophils/100 leukocytes in Blood by Automated count 1.4 % 0.0 - 7.0 [facility] Basophils/100 leukocytes in Blood by Automated count 0.3 % 0.0 - 2.5 [facility] %IG 0.5 % 0.0 - 0.0 H [facility] Hospit al %NRBC 0.0 % 0.0 - 0.0 [facility] al Neutrophils [#/volume] in Blood by Automated count 3.42 10^3/uL 2.00 - 6.90 [facility] Lymphocytes [#/volume] in Blood by Automated count 1.70 10^3/uL 0.60 - 3.40 [facility] Monocytes [#/volume] in Blood by Automated count 0.64 10^3/uL 0.00 - 0.90 [facility] Eosinophils [#/volume] in Blood by Automated count 0.08 10^3/uL 0.00 - 0.70 [facility] Basophils [#/volume] in Blood by Automated count 0.02 10^3/uL 0.00 - 0.20 [facility] #IG 0.03 10^3/uL 0.00 - 0.10 [facility] H ospital #NRBC 0.00 10^3/uL 0.00 - 0.00 [facility] H ospital MANUAL DIFF NOT INDICATED [facility] RBC MORPH NOT INDICATED [facility] Ho spital ID Date Data Source [id number] 04/06/2021 09:34:46 AM EDT [facility] Name Value Range Interpretation Code Description Data Aminta rce(s) Supporting Document(s) Tacrolimus [Mass/volume] in Blood 2.3 ng/mL [facility] Renal Transplant Target ValuesImmediate post-transplant: 10 - 15 ng/mL First 6 months: 6 - 15 ng/mL Greater than 6 months: 6 - 15 ng/mL ID Date Data Source Ionized Calcium 02/18/2021 12:00:00 AM EDT [facility] ([facility]) Name Value Range Interpretation Code Description Data Aminta rce(s) Supporting Document(s) 4.9 4.5-5.3 IONIZED CALCIUM eCW1 ([facility]) ID Date Data Source [id number] 01/30/2021 04:05:00 PM EDT [facility] Name Value Range Interpretation Code Description Data Aminta rce(s) Supporting Document(s) Troponin Laboratory test result [facility] ([facility]) ID Date Data Source [id number] 01/30/2021 04:05:00 PM EDT [facility] ([facility]) Name Value Range Interpretation Code Description Data Aminta rce(s) Supporting Document(s) White Blood Count 6.4 5.0-10.0 [facility] ([facility]) Platelets 133 172-450 [facility] Red Blood Count 3.58 4.00-5.40 [facility] ([facility]) Hemoglobin 12.2 [facility] ([facility]) Hematocrit 36.2 [facility] ([facility]) ID Date Data Source [id number] 10/07/2020 09:04:00 PM [facility] Name Value Range Interpretation Code Description Data Aminta rce(s) Supporting Document(s) Tacrolimus [Mass/volume] in Blood by LC/MS/MS 2.6 ng/mL 2.0-20.0 [facility] Trough (immediate ly following transplant) 15.0 Trough (steady state, 2 weeks or more after transplant): 3.0 - 8.0 Detection Limit = 1.0 Performed by LC-MS/MS technology. This test was developed and its performance characteristics determined by [facility]. It has not been cleared or approved by the Food and Drug Administration. ID Date Data Source [id number] 10/05/2020 02:29:00 PM [facility] Name Value Range Interpretation Code Description Data Aminta rce(s) Supporting Document(s) COMPREHENSIVE METABOLIC PANEL [facility] COMPREHENSIVE METABOLIC PANEL Sodium [Moles/volume] in Serum or Plasma 137 mEq/L 134 - 153 [facility] Potassium [Moles/volume] in Serum or Plasma 4.4 mEq/L 3.6 - 5.0 [facility] Chloride [Moles/volume] in Serum or Plasma 98 mEq/L 98 - 107 [facility] Carbon dioxide, total [Moles/volume] in Serum or Plasma 26 MEQ/L 22 - 30 [facility] Glucose [Mass/volume] in Serum or Plasma 88 MG/DL 65 - 110 [facility] BUN 30 MG/DL 7 - 21 H [facility] Creatinine [Mass/volume] in Serum or Plasma 1.3 MG/DL 0.7 - 1.5 [facility] BUN/CREAT 23 8 - 27 [facility] Protein [Mass/volume] in Serum or Plasma 6.2 G/DL 6.3 - 8.2 L [facility] Albumin [Mass/volume] in Serum or Plasma 4.2 G/DL 3.9 - 5.0 [facility] Globulin [Mass/volume] in Serum by calculation 2.0 GM/DL 2.4 - 3.2 L [facility] A/G RATIO 2.1 0.8 - 2.0 H [facility] Calcium [Mass/volume] in Serum or Plasma 10.1 MG/DL 8.4 - 10.2 [facility] Bilirubin.total [Mass/volume] in Serum or Plasma <0.7 MG/DL 0.2 - 1.3 [facility] Alkaline phosphatase [Enzymatic activity/volume] in Serum or Plasma 91 U/L 38 - 126 [facility] Aspartate aminotransferase [Enzymatic activity/volume] in Serum or Plasma 25 U/L 5 - 40 [facility] Alanine aminotransferase [Enzymatic activity/volume] in Seru m or Plasma 34 U/L 7 - 56 [facility] Anion gap 3 in Serum or Plasma 13.0 mmol/L 8.0 - 16.0 [facility] AGE 65 yrs [facility] al NON-AA GFR 44 mL/min [facility] AMER GFR >60 [facility] Male GFR In terprentation [...] >32 mL/min Normal ID Date Data Source [id number] 10/05/2020 02:29:00 PM [facility] Name Value Range Interpretation Code Description Data Aminta rce(s) Supporting Document(s) Lactate dehydrogenase [Enzymatic activity/volume] in Serum o r Plasma 293 U/L 135 - 214 [facility] ID Date Data Source [id number] 10/05/2020 02:27:00 PM [facility] Name Value Range Interpretation Code Description Data Aminta rce(s) Supporting Document(s) Magnesium [Mass/volume] in Serum or Plasma 1.9 MG/DL 1.7 - 2.2 [facility] ID Date Data Source [id number] 10/05/2020 01:58:00 PM [facility] Name Value Range Interpretation Code Description Data Aminta rce(s) Supporting Document(s) CBC W/AUTOMATED DIFF [facility] COMPLETE BLOOD COUNT Leukocytes [#/volume] in Blood by Automated count 6.5 10^3/uL 4.2 - 1 1.0 [facility] Erythrocytes [#/volume] in Blood by Automated count 3.73 10^6/uL 4. 20 - 5.40 L [facility] Hemoglobin [Mass/volume] in Blood 12.5 g/dL 12.0 - 16.0 [facility] Hematocrit [Volume Fraction] of Blood by Automated count 36.5 % 3 7.0 - 47.0 L [facility] Erythrocyte mean corpuscular volume [Entitic volume] by Auto mated count 97.9 fL 81.0 - 101 [facility] Erythrocyte mean corpuscular hemoglobin [Entitic mass] by Automated count 33.5 pg 27.0 - 34.0 [facility] Erythrocyte mean corpuscular hemoglobin concentration [Mass/volume] by Automated count 34.2 g/dL 31.0 - 36.0 [facility] Erythrocyte distribution width [Ratio] by Automated count 13.6 % 11.5 - 14.5 [facility] Platelets [#/volume] in Blood by Automated count 181 10^3/uL 150 - 45 0 [facility] Platelet mean volume [Entitic volume] in Blood by Automated count 9.9 fL 7.4 - 10.4 [facility] Neutrophils/100 leukocytes in Blood by Automated count 58.2 % 37. 0 - 80.0 [facility] Lymphocytes/100 leukocytes in Blood by Manual count 28.0 % 25.0 - 40.0 [facility] Monocytes/100 leukocytes in Blood by Automated count 11.1 % 3.0 - 8.0 H [facility] Eosinophils/100 leukocytes in Blood by Automated count 2.2 % 0.0 - 7.0 [facility] Basophils/100 leukocytes in Blood by Automated count 0.3 % 0.0 - 2.5 [facility] %IG 0.2 % 0.0 - 0.0 [facility] 0.0 % 0.0 - 0.0 [facility] al Neutrophils [#/volume] in Blood by Automated count 3.79 10^3/uL 2.00 - 6.90 [facility] Lymphocytes [#/volume] in Blood by Automated count 1.82 10^3/uL 0.60 - 3.40 [facility] Monocytes [#/volume] in Blood by Automated count 0.72 10^3/uL 0.00 - 0.90 [facility] Eosinophils [#/volume] in Blood by Automated count 0.14 10^3/uL 0.00 - 0.70 [facility] Basophils [#/volume] in Blood by Automated count 0.02 10^3/uL 0.00 - 0.20 [facility] #IG 0.01 10^3/uL 0.00 - 0.10 [facility] ospital #NRBC 0.00 10^3/uL 0.00 - 0.00 [facility] H ospital MANUAL DIFF NOT INDICATED [facility] RBC MORPH NOT INDICATED [facility] spital ID Date Data Source [id number] 09/05/2020 08:12:34 AM EDT [facility] Name Value Range Interpretation Code Description Data Aminta rce(s) Supporting Document(s) Progress Note [facility] [id number]/[id number]6lQ9dEZW5JAvYEdPhSlEtKHCj lbm [file] [id number]== ID Date Data Source [id number] 09/06/2020 07:27:46 AM EST [facility] Name Value Range Interpretation Code Description Data Aminta rce(s) Supporting Document(s) Specimen source [Identifier] of Unspecified specimen [facility] SARS-CoV-2 RNA 2018 nCoV Real-Time RT-PCR: NOT DETECTED [facility] Assay Performed [facility] 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[facility] Patient has symptoms related to [facility] When did you start to experience these symptoms [Date and time] [Phen X] [facility] Patient was hospitalized because of this condition [facility] patient was admitted to ICU for [facility] Patient resides in a congregate care setting [facility] status [facility] ID Date Data Source [id number] 09/05/2020 08:12:00 AM EDT [facility] Name Value Range Interpretation Code Description Data Aminta rce(s) Supporting Document(s) SARS-CoV-2 RNA [facility] This lab was ordered by [facility] and reported by [facility]. ID Date Data Source [id number] 09/02/2020 06:12:00 PM [facility] Value Range Interpretation Code Description Data Aminta rce(s) Supporting Document(s) Tacrolimus [Mass/volume] in Blood by LC/MS/MS 3.4 ng/mL 2.0-20.0 [facility] Trough (immediate ly following transplant) 15.0 Trough (steady state, 2 weeks or more after transplant): 3.0 - 8.0 Detection Limit = 1.0 Performed by LC-MS/MS technology. This test was developed and its performance characteristics determined by [facility]. It has not been cleared or approved by the Food and Drug Administration. ID Date Data Source [id number] 08/31[facility]2020 [facility]:11[facility] Value Range Interpretation Code Description Data Aminta rce(s) Supporting Document(s) Lactate dehydrogenase [Enzymatic activity/volume] in Serum o r Plasma 275 U/L 135 - 214 [facility] ID Date Data Source [id number] 08/31/2020 02:11:00 PM EDT [facility] Name Value Range Interpretation Code Description Data [facility](s) Supporting Document(s) COMPREHENSIVE METABOLIC PANEL [facility] COMPREHENSIVE METABOLIC PANEL Sodium [Moles/volume] in Serum or Plasma 137 mEq/L 134 - 153 [facility] Potassium [Moles/volume] in Serum or Plasma 4.2 mEq/L 3.6 - 5.0 [facility] Chloride [Moles/volume] in Serum or Plasma 99 mEq/L 98 - 107 [facility] Carbon dioxide, total [Moles/volume] in Serum or Plasma 28 MEQ/L 22 - 30 [facility] Glucose [Mass/volume] in Serum or Plasma 142 MG/DL 65 - 110 [facility] BUN 34 MG/DL 7 - 21 [facility] Creat[facility] [Mass/volume] in Serum or Plasma 1.4 MG/DL 0.7 - 1.5 [facility] BUN/CREAT 24 8 - 27 [facility] al Protein [Mass/volume] in Serum or Plasma 6.3 G/DL 6.3 - 8.2 [facility] Albumin [Mass/volume] in Serum or Plasma 4.1 G/DL 3.9 - 5.0 [facility] Globulin [Mass/volume] in Serum by calculation 2.2 GM/DL 2.4 - 3.2 L [facility] A/G RATIO 1.9 0.8 - 2.0 [facility] Calcium [Mass/volume] in Serum or Plasma 10.0 MG/DL 8.4 - 10.2 [facility] Bilirubin.total [Mass/volume] in Serum or Plasma <0.7 MG/DL 0.2 - 1.3 [facility] Alkaline phosphatase [Enzymatic activity/volume] in Serum or Plasma 94 U/L 38 - 126 [facility] Aspartate aminotransferase [Enzymatic activity/volume] in Serum or Plasma 22 U/L 5 - 40 [facility] Alanine aminotransferase [Enzymatic activity/volume] in Seru m or Plasma 31 U/L 7 - 56 [facility] Anion gap 3 in Serum or Plasma 10.0 mmol/L 8.0 - 16.0 [facility] AGE 65 yrs [facility] Hospit al NON-AA GFR 40 mL/min [facility] Hospi costa AFR AMER GFR >60 [facility] Hos p[facility] Male GFR In terprentation [...] >32 mL/min Normal ID Date Data Source [id number] 08/31/2020 02:11:00 PM EDT [facility] Name Value Range Interpretation Code Description Data Aminta rce(s) Supporting Document(s) Magnesium [Mass/volume] in Serum or Plasma 1.9 MG/DL 1.7 - 2.2 [facility] ID Date Data Source [id number] 08/31/2020 01:41:00 PM EDT [facility] Name Value Range Interpretation Code Description Data Aminta rce(s) Supporting Document(s) CBC W/AUTOMATED DIFF [facility] COMPLETE BLOOD COUNT Leukocytes [#/volume] in Blood by Automated count 5.7 10^3/uL 4.2 - 1 1.0 [facility] Erythrocytes [#/volume] in Blood by Automated count 3.67 10^6/uL 4. 20 - 5.40 L [facility] Hemoglobin [Mass/volume] in Blood 12.5 g/dL 12.0 - 16.0 [facility] Hematocrit [Volume Fraction] of Blood by Automated count 35.9 % 3 7.0 - 47.0 L [facility] Erythrocyte mean corpuscular volume [Entitic volume] by Auto mated count 97.8 fL 81.0 - 101 [facility] Erythrocyte mean corpuscular hemoglobin [Entitic mass] by Automated count 34.1 pg 27.0 - 34.0 H [facility] Erythrocyte mean corpuscular hemoglobin concentration [Mass/volume] by Automated count 34.8 g/dL 31.0 - 36.0 [facility] Erythrocyte distribution width [Ratio] by Automated count 13.4 % 11.5 - 14.5 [facility] Platelets [#/volume] in Blood by Automated count 159 10^3/uL 150 - 45 0 [facility] Platelet mean volume [Entitic volume] in Blood by Automated count 10.3 fL 7.4 - 10.4 [facility] Neutrophils/100 leukocytes in Blood by Automated count 61.6 % 37. 0 - 80.0 [facility] Lymphocytes/100 leukocytes in Blood by Manual count 24.6 % 25.0 - 40.0 L [facility] Monocytes/100 leukocytes in Blood by Automated count 10.5 % 3.0 - 8.0 H [facility] Eosinophils/100 leukocytes in Blood by Automated count 2.8 % 0.0 - 7.0 [facility] Basophils/100 leukocytes in Blood by Automated count 0.3 % 0.0 - 2.5 [facility] %IG 0.2 % 0.0 - 0.0 H [facility] Hospit al %NRBC 0.0 % 0.0 - 0.0 [facility] al Neutrophils [#/volume] in Blood by Automated count 3.54 10^3/uL 2.00 - 6.90 [facility] Lymphocytes [#/volume] in Blood by Automated count 1.41 10^3/uL 0.60 - 3.40 [facility] Monocytes [#/volume] in Blood by Automated count 0.60 10^3/uL 0.00 - 0.90 [facility] Eosinophils [#/volume] in Blood by Automated count 0.16 10^3/uL 0.00 - 0.70 [facility] Basophils [#/volume] in Blood by Automated count 0.02 10^3/uL 0.00 - 0.20 [facility] #IG 0.01 10^3/uL 0.00 - 0.10 [facility] H ospital #NRBC 0.00 10^3/uL 0.00 - 0.00 [facility] MANUAL DIFF NOT INDICATED [facility] RBC MORPH NOT INDICATED [facility] ID Date Data Source [id number] 08/18/2020 10:36:26 AM EDT [facility] Name Value Range Interpretation Code Description Data Aminta rce(s) Supporting Document(s) Progress Note [facility] [id number]/NFLcaNUScn7YpOSnrKQc8IMlsOUWzQ8HcATD2pL5nKFC7JWsRKxLbMvSkRJYq m [file] ICAgICAgICAgICAgICAgICAgICAgICAgICAgICAgICAgICAgICAgICAgICAgICAgICAgICAgICAgICAg ICAgICAgICAgICAgICAgICAgICAgDQogICAgICAgICAgICAgICAgICAgICAgICAgICAgICAgICAgICAg ICAgICAgICAgICAgICAgICAgICAgICAgICAgICAgIC AgICAgICAgICAgICAgICAgICAgICAgICAgICAgICAgDQogICAgICAgICAgICAgICAgICAgICAgICAgIC AgICAgICAgICAgICAgICAgICAgICAgICAgICAgICAgICAgICAgICAgICAgICAgICAgICAgICAgICAgIC AgICAgICAgICAgICAgDQogICAgICAgICAgICAgICAg ICAgICAgICAgICAgICAgICAgICAgICAgICAgICAgICAgICAgICAgICAgICAgICAgICAgICAgICAgICAg ICAgICAgICAgICAgICAgICAgICAgICAgDQogICAgICAgICAgICAgICAgICAgICAgICAgICAgICAgICAg ICAgICAgICAgICAgICAgICAgICAgICAgICAgICAgIC AgICAgICAgICAgICAgICAgICAgICAgICAgICAgICAgICAgDQogICAgICAgICAgICAgICAgICAgICAgIC AgICAgICAgICAgICAgICAgICAgICAgICAgICAgICAgICAgICAgICAgICAgICAgICAgICAgICAgICAgIC AgICAgICAgICAgICAgICAgDQogICAgICAgICAgICAg ICAgICAgICAgICAgICAgICAgICAgICAgICAgICAgICAgICAgICAgICAgICAgICAgICAgICAgICAgICAg ICAgICAgICAgICAgICAgICAgICAgICAgICAgDQogICAgICAgICAgICAgICAgICAgICAgICAgICAgICAg ICAgICAgICAgICAgICAgICAgICAgICAgICAgICAgIC AgICAgICAgICAgICAgICAgICAgICAgICAgICAgICAgICAgICAgDQogICAgICAgICAgICAgICAgICAgIC AgICAgICAgICAgICAgICAgICAgICAgICAgICAgICAgICAgICAgICAgICAgICAgICAgICAgICAgICAgIC AgICAgICAgICAgICAgICAgICAgDQogICAgICAgICAg ICAgICAgICAgICAgICAgICAgICAgICAgICAgICAgICAgICAgICAgICAgICAgICAgICAgICAgICAgICAg AIToXYLfBJFiBNDhXLOiIGOdOEEkYPKcVVGkAYMhRHc8B5nfGJExPUFjJQ4fZEg8Sn6+DQoNCmVuZHN0 dxRytJ9TLT1mi7PzFMnaGMQuc6GmQOz9HE1UKSMoVW pvBL9VYUxklw4PCXJfLYQudAUPb9uoSkWyHRZ8NYZnHuhgHZ5IRJHsL9fqmlQtVHEhOFTZVO1ZHvPdJ4 FimF35QBADFh4+RMyvheOdKsdCMkH5NEMdq5IlDMc3CB9GHEMlOuzhr9XkZgVdGONAGIwqOS6BVOX5CO EyMVAtSn6ZQLChW527lbEqXT6XMs4MLgPfHB8gtp7T AlNcQWUqDssCGci3XSdgKX7TtLIhSKqQoe7dgcFsifFVr7PadnGbnZFBJVSdzSUSUUJhVFHrSLljDMRH ItVcoTPeTC7wAc2jSIRhOENbRpUfIJHMLP8VJDQhLSTagBOuLKKpMGDTYF2FAAxbDVF7HFSofyQniCLv LOjuLY6PLPKzwsToXGxqCFVHWUj+Fc7ZCH3ts7JtGK zoYBWaZL6pjl3ONEwJMzYcG8S3yCPxI0K0QLzjEe5PGHPpCVFiNNetAQRWRXokTL3DNT1nqkK4NT7CzN XuELXwICMkbGTvKCg0U46zdYSmLHmtFC9QYLA+Jovita+Yv6DPSKnKFSpJYNbLtFeTDKVFsUxH4BiT1XSu0 YiF7UuNO10hXcaagToEPyiXS6ERS4gMEPnXZOPDY4S oOIlkS4mixFkMSAiCZMWLbInR06lhPDpBOJtPYK6WQPzLc5RVJHyD9NyizStdKvisyNnZUUyVFSQBV4O NPxrsvQvqTSsnMpcEO01yZavZF5SQr0HWuRdMG2hsj0AsUByXx0PVXFaBg4PMMNbTHPqTSEkIDQ9MFSn ImFoPOcoLURnPYTzKZH1CXMzFXMrZC7UQrRsENQcTL btMEIzPGZjUFXwcp4FPACkBYNqEJtvTAQdLSFjAJBlNUqfECOvYIOzFYY4MFWpYMFeII0FQdYsSEYnRY TlXpxeERMyJLLhfm2QGFGcFGQcHeMhVlKqHSCvFRWjHHcoFHChAVVwOLjpZRAyJAHvEY6HXwBtYKVuMD OvMDncFFHdKZEphk7LOJXoFOZtTbP8HqPxKDLpGNMu HRghWOTyEYY8CRV7JUQaECMtIZ9YEcSlBNFaHHE2EsdbYHAiWYHjdz6SYJRrSHIpXMutAALhPAYqJJIf POdgZIPhRDF8AuG6PNRdMLLcKN2NYnZgRMWlMXT6ERLdPDUhMSTwzl2NEWPmSCGhCxf6TSHfJAPnKOMr QHmtTLSvARG4KHH5DUIbTRYeCJ9IPtYaVCJgECfnXS OhXENzKPKmon1FVFXePLDjLrE2NXCrYSMlPKSqZVyaNPPrOWW6EZI8SLNuVGZrUK5NNgJlVZQoNXjqPP xkYCUkATFssx1CWJSlSPRoHGZ2RKYrWJRdUQHeOCh6ddFaoKLeCWv6FF8LW0UcrfMwUkQQCd0Jl083LT SbPROiSh7FW2amNl0rPAKcULAQXq3QCNg0VUW0PWZ2 F9CjCEpkV8Y3AlMrHLJuPjlcBudlSfr5XbJ+ECjcVNR0MTK1J6G9CWMwSKBzYEE6BQXkN2X1Z3P3HVad NK8vWXLBUn9+ODfzkSIurAlhBIMBIzS4VVn5NNytQJSPHg1P ID Date Data Source [id number] 08/19/2020 11:46:01 AM EDT [facility] Value Range Interpretation Code Description Data Aminta rce(s) Supporting Document(s) Specimen source [Identifier] of Unspecified specimen [facility] SARS-CoV-2 RNA 2018 nCoV Real-Time RT-PCR: NOT DETECTED [facility] Assay Performed [facility] Initial validation was performed by the Centers for Disease Control and Prevention (CDC) and additionally validated by the Dept. of Pathology [facility]. Negative results do not preclude SARS-CoV-2 infection and should not be used as the sole basis for patient management decisions.Additional information is available on the following FDA websites for health care providers and patients. https://www.fda.gov/media/781572/download, https://www.fda.gov/media/283930/download. 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[facility] Patient has symptoms related to [facility] When did you start to experience these symptoms [Date and time] [Phen X] [facility] Patient was hospitalized because of this condition [facility] patient was admitted to ICU for [facility] Patient resides in a congregate care setting [facility] status [facility] ID Date Data Source [id number] 08/18/2020 10:36:00 AM EDT [facility] Name Value Range Interpretation Code Description Data Aminta rce(s) Supporting Document(s) SARS-CoV-2 RNA [facility] This lab was ordered by [facility] and reported by [facility]. ID Date Data Source [id number] 07/10/2020 09:43:00 PM [facility] Name Value Range Interpretation Code Description Data Aminta rce(s) Supporting Document(s) Tacrolimus [Mass/volume] in Blood by LC/MS/MS 1.9 ng/mL 2.0-20.0 L [facility] Trough (immediate ly following transplant) 15.0 Trough (steady state, 2 weeks or more after transplant): 3.0 - 8.0 Detection Limit = 1.0 Performed by LC-MS/MS technology. This test was developed and its performance characteristics determined by [facility]. It has not been cleared or approved by the Food and Drug Administration. ID Date Data Source [id number] 07/07/2020 01:33:00 PM [facility] Name Value Range Interpretation Code Description Data Aminta rce(s) Supporting Document(s) Lactate dehydrogenase [Enzymatic activity/volume] in Serum o r Plasma 301 U/L 135 - 214 [facility] ID Date Data Source [id number] 07/07/2020 01:33:00 PM [facility] Name Value Range Interpretation Code Description Data Aminta rce(s) Supporting Document(s) COMPREHENSIVE METABOLIC PANEL [facility] COMPREHENSIVE METABOLIC PANEL Sodium [Moles/volume] in Serum or Plasma 135 mEq/L 134 - 153 [facility] Potassium [Moles/volume] in Serum or Plasma 4.3 mEq/L 3.6 - 5.0 [facility] Chloride [Moles/volume] in Serum or Plasma 99 mEq/L 98 - 107 [facility] Carbon dioxide, total [Moles/volume] in Serum or Plasma 24 MEQ/L 22 - 30 [facility] Glucose [Mass/volume] in Serum or Plasma 92 MG/DL 65 - 110 [facility] BUN 34 MG/DL 7 - 21 H [facility] Creatinine [Mass/volume] in Serum or Plasma 1.5 MG/DL 0.7 - 1.5 [facility] 23 8 - [facility] Protein [Mass/volume] in Serum or Plasma 5.9 G/DL 6.3 - 8.2 L [facility] Albumin [Mass/volume] in Serum or Plasma 3.9 G/DL 3.9 - 5.0 [facility] Globulin [Mass/volume] in Serum by calculation 2.0 GM/DL 2.4 - 3.2 L [facility] A/G RATIO 2.0 0.8 - 2.0 [facility] Calcium [Mass/volume] in Serum or Plasma 9.7 MG/DL 8.4 - 10.2 [facility] Bilirubin.total [Mass/volume] in Serum or Plasma <0.7 MG/DL 0.2 - 1.3 [facility] Alkaline phosphatase [Enzymatic activity/volume] in Serum or Plasma 91 U/L 38 - 126 [facility] Aspartate aminotransferase [Enzymatic activity/volume] in Serum or Plasma 23 U/L 5 - 40 [facility] Alanine aminotransferase [Enzymatic activity/volume] in Seru m or Plasma 29 U/L 7 - 56 [facility] Anion gap 3 in Serum or Plasma 12.0 mmol/L 8.0 - 16.0 [facility] AGE 65 yrs [facility] NON-AA GFR 37 mL/min [facility] A[facility] AMER GFR >60 [facility] Male GFR In terprentation [...] >32 mL/min Normal ID Date Data Source [id number] 07/07/2020 01:23:00 PM EDT [facility] Name Value Range Interpretation Code Description Data Aminta rce(s) Supporting Document(s) Magnesium [Mass/volume] in Serum or Plasma 1.7 MG/DL 1.7 - 2.2 [facility] ID Date Data Source [id number] 07/07/2020 01:16:00 PM EDT [facility] Name Value Range Interpretation Code Description Data Aminta rce(s) Supporting Document(s) CBC W/AUTOMATED DIFF [facility] COMPLETE BLOOD COUNT Leukocytes [#/volume] in Blood by Automated count 5.6 10^3/uL 4.2 - 1 1.0 [facility] Erythrocytes [#/volume] in Blood by Automated count 3.27 10^6/uL 4. 20 - 5.40 L [facility] Hemoglobin [Mass/volume] in Blood 11.0 g/dL 12.0 - 16.0 L [facility] Hematocrit [Volume Fraction] of Blood by Automated count 31.9 % 3 7.0 - 47.0 L [facility] Erythrocyte mean corpuscular volume [Entitic volume] by Auto mated count 97.6 fL 81.0 - 101 [facility] Erythrocyte mean corpuscular hemoglobin [Entitic mass] by Automated count 33.6 pg 27.0 - 34.0 [facility] Erythrocyte mean corpuscular hemoglobin concentration [Mass/volume] by Automated count 34.5 g/dL 31.0 - 36.0 [facility] Erythrocyte distribution width [Ratio] by Automated count 13.3 % 11.5 - 14.5 [facility] Platelets [#/volume] in Blood by Automated count 150 10^3/uL 150 - 45 0 [facility] Platelet mean volume [Entitic volume] in Blood by Automated count 10.0 fL 7.4 - 10.4 [facility] Neutrophils/100 leukocytes in Blood by Automated count 60.9 % 37. 0 - 80.0 [facility] Lymphocytes/100 leukocytes in Blood by Manual count 24.6 % 25.0 - 40.0 L [facility] Monocytes/100 leukocytes in Blood by Automated count 11.2 % 3.0 - 8.0 H [facility] Eosinophils/100 leukocytes in Blood by Automated count 2.7 % 0.0 - 7.0 [facility] Basophils/100 leukocytes in Blood by Automated count 0.4 % 0.0 - 2.5 [facility] %IG 0.2 % 0.0 - 0.0 [facility] %NRBC 0.0 % 0.0 - 0.0 [facility] Neutrophils [#/volume] in Blood by Automated count 3.43 10^3/uL 2.00 - 6.90 [facility] Lymphocytes [#/volume] in Blood by Automated count 1.38 10^3/uL 0.60 - 3.40 [facility] Monocytes [#/volume] in Blood by Automated count 0.63 10^3/uL 0.00 - 0.90 [facility] Eosinophils [#/volume] in Blood by Automated count 0.15 10^3/uL 0.00 - 0.70 [facility] Basophils [#/volume] in Blood by Automated count 0.02 10^3/uL 0.00 - 0.20 [facility] #IG 0.01 10^3/uL 0.00 - 0.10 [facility] #NRBC 0.00 10^3/uL 0.00 - 0.00 [facility] MANUAL DIFF NOT INDICATED [facility] RBC MORPH NOT INDICATED [facility] Procedure Social History Code Duration Value Status Description Data Source(s ) Smoking 08/11/2021 12:00:00 AM EDT Never Smoker completed Never S moker eCW1 (Formerly [facility]) Smoking 05/11/2021 12:00:00 AM EDT Never Smoker completed Never S moker eCW1 (Formerly [facility]) Smoking 05/11/2021 12:00:00 AM EDT Never Smoker completed Never S moker eCW1 (Formerly [facility]) Smoking 05/11/2021 12:00:00 AM EDT Never Smoker completed Never S moker eCW1 (Formerly [facility]) Smoking 05/11/2021 12:00:00 AM EDT Never Smoker completed Never S moker eCW1 (Formerly [facility]) Smoking 05/04/2021 12:00:00 AM EDT Never Smoker completed Never S moker eCW1 (Formerly [facility]) Smoking 05/04/2021 12:00:00 AM EDT Never Smoker completed Never S moker eCW1 (Formerly [facility]) Smoking 04/01/2021 12:00:00 AM EDT Never Smoker completed Never S moker eCW1 (Formerly [facility]) Smoking 04/01/2021 12:00:00 AM EDT Never Smoker completed Never S moker eCW1 (Formerly [facility]) Smoking 04/01/2021 12:00:00 AM EDT Never Smoker completed Never S moker eCW1 (Formerly [facility]) Smoking 04/01/2021 12:00:00 AM EDT Never Smoker completed Never S moker eCW1 (Formerly [facility]) Smoking 04/01/2021 12:00:00 AM EDT Never Smoker completed Never S moker eCW1 (Formerly [facility]) Smoking 03/04/2021 12:00:00 AM EDT Never Smoker completed Never S moker eCW1 (Formerly [facility]) Smoking 03/04/2021 12:00:00 AM EDT Never Smoker completed Never S moker eCW1 (Formerly [facility]) Smoking 03/04/2021 12:00:00 AM EDT Never Smoker completed Never S moker eCW1 (Formerly [facility]) Smoking 03/04/2021 12:00:00 AM EDT Never Smoker completed Never S moker eCW1 (Formerly [facility]) Smoking 03/04/2021 12:00:00 AM EDT Never Smoker completed Never S moker eCW1 (Formerly [facility]) Smoking 03/04/2021 12:00:00 AM EDT Never Smoker completed Never S moker eCW1 (Formerly [facility]) Smoking 02/18/2021 12:00:00 AM EDT Never Smoker completed Never S moker eCW1 (Formerly [facility]) Smoking 02/18/2021 12:00:00 AM EDT Never Smoker completed Never S moker eCW1 (Formerly [facility]) Smoking 02/18/2021 12:00:00 AM EDT Never Smoker completed Never S moker eCW1 (Formerly [facility]) Smoking 02/18/2021 12:00:00 AM EDT Never Smoker completed Never S moker eCW1 (Formerly [facility]) Smoking 02/18/2021 12:00:00 AM EDT Never Smoker completed Never S moker eCW1 (Formerly [facility]) Smoking 02/10/2021 12:00:00 AM EDT Patient has never smoked co mpleted Patient has never smoked MEDENT ([facility]) Smoking 02/04/2021 12:00:00 AM EDT Never Smoker completed Never S moker eCW1 (Formerly [facility]) Smoking 02/04/2021 12:00:00 AM EDT Never Smoker completed Never S moker eCW1 (Formerly [facility]) Smoking 01/27/2021 12:00:00 AM EDT Never Smoker completed Never S moker eCW1 (Formerly [facility]) Smoking 01/27/2021 12:00:00 AM EDT Never Smoker completed Never S moker eCW1 (Formerly [facility]) Smoking 01/19/2021 12:00:00 AM EDT Never Smoker completed Never S moker eCW1 (Formerly [facility]) Smoking 12/15/2020 12:00:00 AM EST Never Smoker completed Never S moker eCW1 (Formerly [facility]) Smoking 12/15/2020 12:00:00 AM EST Never Smoker completed Never S moker eCW1 (Formerly [facility]) Smoking 12/15/2020 12:00:00 AM EST Never Smoker completed Never S moker eCW1 (Formerly [facility]) Smoking 12/15/2020 12:00:00 AM EST Never Smoker completed Never S moker eCW1 (Formerly [facility]) Smoking 11/17/2020 12:00:00 AM EST Never Smoker completed Never S moker eCW1 (Formerly [facility]) Smoking 11/17/2020 12:00:00 AM EST Never Smoker completed Never S moker eCW1 (Formerly [facility]) Smoking 10/22/2020 12:00:00 AM EST Never Smoker completed Never S moker eCW1 (Formerly [facility]) Smoking 10/22/2020 12:00:00 AM EST Never Smoker completed Never S moker eCW1 (Formerly [facility]) Smoking 10/22/2020 12:00:00 AM EST Never Smoker completed Never S moker eCW1 (Formerly [facility]) Caffeine Use Details 10/13/2020 12:00:00 AM EST completed soda, 1 cup [employer] ([facility]) Smoking 10/13/2020 12:00:00 AM EST Unknown if ever smoked comp leted Unknown if ever smoked [employer] ([facility]) Smoking 09/24/2020 12:00:00 AM EST Patient has never smoked co mpleted Patient has never smoked MEDENT ([facility], ) Smoking 09/22/2020 12:00:00 AM EST Never Smoker completed Never S moker eCW1 (Formerly [facility]) Smoking 09/22/2020 12:00:00 AM EST Never Smoker completed Never S moker eCW1 (Formerly [facility]) Smoking 09/22/2020 12:00:00 AM EST Never Smoker completed Never S moker eCW1 (Formerly [facility]) Smoking 08/11/2020 12:00:00 AM EDT Never Smoker completed Never S moker eCW1 (Formerly [facility]) Smoking 08/11/2020 12:00:00 AM EDT Never Smoker completed Never S moker eCW1 (Formerly [facility]) Smoking 08/11/2020 12:00:00 AM EDT Never Smoker completed Never S moker eCW1 (Formerly [facility]) Smoking 08/11/2020 12:00:00 AM EDT Never Smoker completed Never S moker eCW1 (Formerly [facility]) Smoking 08/11/2020 12:00:00 AM EDT Never Smoker completed Never S moker eCW1 (Formerly [facility]) Smoking 08/11/2020 12:00:00 AM EDT Never Smoker completed Never S moker eCW1 (Formerly [facility]) Smoking 08/11/2020 12:00:00 AM EDT Never Smoker completed Never S moker eCW1 (Formerly [facility]) Smoking 08/11/2020 12:00:00 AM EDT Never Smoker completed Never S moker eCW1 (Formerly [facility]) Smoking 08/11/2020 12:00:00 AM EDT Never Smoker completed Never S moker eCW1 (Formerly [facility]) Smoking 08/04/2020 12:00:00 AM EDT Never Smoker completed Never S moker eCW1 (Formerly [facility]) Smoking 08/04/2020 12:00:00 AM EDT Never Smoker completed Never S moker eCW1 (Formerly [facility]) Smoking 08/04/2020 12:00:00 AM EDT Never Smoker completed Never S moker eCW1 (Formerly [facility]) Vital Signs ID Date Data Source UNK Name Value Range Interpretation Code Description Data Source(s) Body weight 213.0 [lb_av] 213.0 [lb_av] eCW1 ([facility]) Body weight 96.62 kg 96.62 kg eCW1 ([facility]) Body height 65.5 [in_i] 65.5 [in_i] eCW1 ([facility]) Body mass index (BMI) [Ratio] 34.90 kg/m2 34.90 kg/m2 eCW1 (Formerly [facility]) Heart rate 59 /min 59 /min eCW1 ([facility]) Respiratory rate 18 /min 18 /min eCW1 ([facility]) Body temperature 97.9 [degF] 97.9 [degF] eCW1 ( Formerly [facility]) Systolic blood pressure 122 mm[Hg] 122 mm[Hg] e CW1 (Formerly [facility]) Diastolic blood pressure 60 mm[Hg] 60 mm[Hg] eCW1 ([facility]ly [facility]) Diastolic blood pressure 70 mm[Hg] 70 mm[Hg] MEDENT ([facility]) Systolic blood pressure 118 mm[Hg] 118 mm[Hg] M EDENT ([facility]) Heart rate 63 /min 63 /min MEDENT ([facility]) Body temperature 97.5 [degF] 97.5 [degF] MEDENT ([facility]) Respiratory rate 16 /min 16 /min MEDENT ( [facility]) Oxygen saturation in Arterial blood by Pulse oximetry 100 % 100 % MEDENT ([facility]) Body weight 222 [lb_av] 222 [lb_av] eCW1 ([facility]) Body weight 100.7 kg 100.7 kg eCW1 ([facility]) Body height 65.5 [in_i] 65.5 [in_i] eCW1 ([facility]) Body mass index (BMI) [Ratio] 36.38 kg/m2 36.38 kg/m2 eCW1 ([facility]ly [facility]) Heart rate 62 /min 62 /min eCW1 ([facility]) Respiratory rate 18 /min 18 /min eCW1 ([facility]) Body temperature 97.8 [degF] 97.8 [degF] eCW1 ( [facility]) Systolic blood pressure 126 mm[Hg] 126 mm[Hg] e CW1 ([facility]ly [facility]) Diastolic blood pressure 66 mm[Hg] 66 mm[Hg] eCW1 ([facility]ly [facility]) Heart rate 65 /min 65 /min eCW1 ([facility]) Body weight 219 [lb_av] 219 [lb_av] eCW1 ([facility]) Body height 65.5 [in_i] 65.5 [in_i] eCW1 ([facility]) Body mass index (BMI) [Ratio] 35.89 kg/m2 35.89 kg/m2 eCW1 ([facility]ly [facility]) Respiratory rate 16 /min 16 /min eCW1 ([facility]) Body temperature 98.0 [degF] 98.0 [degF] eCW1 ( [facility]) Systolic blood pressure 116 mm[Hg] 116 mm[Hg] e CW1 ([facility]ly [facility]) Diastolic blood pressure 55 mm[Hg] 55 mm[Hg] eCW1 ([facility]ly [facility]) Systolic blood pressure 133 mm[Hg] 133 mm[Hg] e CW1 ([facility]ly [facility]) Body weight 225 [lb_av] 225 [lb_av] eCW1 ([facility]) Body height 65.5 [in_i] 65.5 [in_i] eCW1 ([facility]) Body mass index (BMI) [Ratio] 36.87 kg/m2 36.87 kg/m2 eCW1 ([facility]ly [facility]) Heart rate 66 /min 66 /min eCW1 ([facility]) Respiratory rate 17 /min 17 /min eCW1 ([facility]) Body temperature 98.5 [degF] 98.5 [degF] eCW1 ( [facility]) Diastolic blood pressure 64 mm[Hg] 64 mm[Hg] eCW1 ([facility]ly [facility]) Body height 65.5 [in_i] 65.5 [in_i] eCW1 ([facility]) Body weight 224 [lb_av] 224 [lb_av] eCW1 ([facility]) Body mass index (BMI) [Ratio] 36.70 kg/m2 36.70 kg/m2 eCW1 ([facility]ly [facility]) Respiratory rate 18 /min 18 /min eCW1 ([facility]) Body temperature 97.8 [degF] 97.8 [degF] eCW1 ( [facility]) Diastolic blood pressure 69 mm[Hg] 69 mm[Hg] eCW1 ([facility]) Systolic blood pressure 153 mm[Hg] 153 mm[Hg] e CW1 ([facility]) Heart rate 68 /min 68 /min eCW1 ([facility]) Body weight 222.00 [lb_av] 222.00 [lb_av] MEDEN T ([facility]) Body height 65 [in_i] 65 [in_i] MEDENT ([facility]) 5'5" Body mass index (BMI) [Ratio] 36.9 kg/m2 36.9 k g/m2 MEDENT ([facility]) Heart rate 61 /min 61 /min MEDENT ([facility]) Systolic blood pressure--sitting 142 mm[Hg] 142 mm[Hg] MEDENT ([facility]) Ra, large cuff Diastolic blood pressure--sitting 78 mm[Hg] 78 mm[Hg] MEDENT ([facility]) Ra, large cuff Systolic blood pressure--supine 148 mm[Hg] 148 mm[Hg] MEDENT ([facility]) Ra, large cuff Diastolic blood pressure--supine 80 mm[Hg] 80 mm[Hg] MEDENT ([facility]) Ra, large cuff Systolic blood pressure--standing 138 mm[Hg] 13 8 mm[Hg] MEDENT ([facility]) Ra, large cuff Diastolic blood pressure--standing 78 mm[Hg] 7 8 mm[Hg] MEDENT ([facility]) Ra, large cuff Body weight 223 [lb_av] 223 [lb_av] eCW1 ([facility]) Body height 65.5 [in_i] 65.5 [in_i] eCW1 ([facility]) Body mass index (BMI) [Ratio] 36.54 kg/m2 36.54 kg/m2 eCW1 ([facility]) Heart rate 65 /min 65 /min eCW1 ([facility]) Respiratory rate 18 /min 18 /min eCW1 ([facility]) Body temperature 97.9 [degF] 97.9 [degF] eCW1 ( [facility]) Systolic blood pressure 128 mm[Hg] 128 mm[Hg] e CW1 ([facility]ly [facility]) Diastolic blood pressure mm[Hg] eCW1 ([facility]) Systolic blood pressure 128 mm[Hg] 128 mm[Hg] M EDENT ([facility], ) Diastolic blood pressure 80 mm[Hg] 80 mm[Hg] MEDENT ([facility], ) Heart rate 72 /min 72 /min MEDENT ([facility], ) Oxygen saturation in Arterial blood by Pulse oximetry 97 % 97 % [facility] ([facility], ) Room Air Body height 66 [in_i] 66 [in_i] MEDENT ([facility], ) 5'6" Body weight 214.00 [lb_av] 214.00 [lb_av] MEDEN T ([facility], ) Body mass index (BMI) [Ratio] 34.5 kg/m2 34.5 k g/m2 MEDENT ([facility], ) Tuttle body weight 130 [lb_av] 130 [lb_av] MEDEN T ([facility], ) Body weight 97.070 kg 97.070 kg MEDENT ([facility], ) Body weight 219 [lb_av] 219 [lb_av] eCW1 ([facility]) Body height 65.5 [in_i] 65.5 [in_i] eCW1 ([facility]) Body mass index (BMI) [Ratio] 35.89 kg/m2 35.89 kg/m2 eCW1 ([facility]ly [facility]) Heart rate 81 /min 81 /min eCW1 ([facility]) Respiratory rate 18 /min 18 /min eCW1 ([facility]) Body temperature 96.3 [degF] 96.3 [degF] eCW1 ( [facility]) Systolic blood pressure 131 mm[Hg] 131 mm[Hg] e CW1 ([facility]) Diastolic blood pressure 62 mm[Hg] 62 mm[Hg] eCW1 ([facility]) Body weight 218 [lb_av] 218 [lb_av] eCW1 ([facility]) Body height 65.5 [in_i] 65.5 [in_i] eCW1 ([facility]) Body mass index (BMI) [Ratio] 35.72 kg/m2 35.72 kg/m2 eCW1 ([facility]ly [facility]) Respiratory rate 18 /min 18 /min eCW1 ([facility]) Body temperature 97.6 [degF] 97.6 [degF] eCW1 ( [facility]) Systolic blood pressure 161 mm[Hg] 161 mm[Hg] e CW1 ([facility]) Diastolic blood pressure 72 mm[Hg] 72 mm[Hg] eCW1 ([facility]ly [facility]) Heart rate 60 /min 60 /min eCW1 ([facility]) Patient Treatment Plan of Care Planned Activity Planned Date Details Description Data Source (s) Lorazepam 1 MG Oral Tablet 06/15/2021 12:00:00 AM EDT eCW1 (Formerly [facility]) Mupirocin 20 MG/ML Topical Cream 05/04/2021 12:00:00 AM EDT eCW1 (Formerly [facility]) carbamide peroxide 65 MG/ML Otic Solution [Debrox] 05/04/2021 12 :00:00 AM EDT eCW1 (Formerly [facility]) Mupirocin 20 MG/ML Topical Cream 05/04/2021 12:00:00 AM EDT eCW1 (Formerly [facility]) carbamide peroxide 65 MG/ML Otic Solution [Debrox] 05/04/2021 12 :00:00 AM EDT eCW1 (Formerly [facility]) Escitalopram 5 MG Oral Tablet [Lexapro] 03/26/2021 12:00:00 AM EDT eCW1 ([facility]ly [facility]) Escitalopram 5 MG Oral Tablet [Lexapro] 03/26/2021 12:00:00 AM EDT eCW1 ([facility]ly [facility]) Escitalopram 5 MG Oral Tablet [Lexapro] 03/26/2021 12:00:00 AM EDT eCW1 ([facility]ly [facility]) Escitalopram 5 MG Oral Tablet [Lexapro] 12/15/2020 12:00:00 AM EST eCW1 ([facility]ly [facility]) Escitalopram 5 MG Oral Tablet [Lexapro] 12/15/2020 12:00:00 AM EST eCW1 ([facility]ly [facility]) Escitalopram 5 MG Oral Tablet [Lexapro] 12/15/2020 12:00:00 AM EST eCW1 ([facility]ly [facility]) Escitalopram 5 MG Oral Tablet [Lexapro] 12/15/2020 12:00:00 AM EST eCW1 ([facility]ly [facility]) Escitalopram 5 MG Oral Tablet [Lexapro] 12/15/2020 12:00:00 AM EST eCW1 ([facility]ly [facility]) Escitalopram 5 MG Oral Tablet [Lexapro] 12/15/2020 12:00:00 AM EST eCW1 (Formerly [facility]) Escitalopram 5 MG Oral Tablet [Lexapro] 12/15/2020 12:00:00 AM EST eCW1 ([facility]ly [facility]) Escitalopram 5 MG Oral Tablet [Lexapro] 12/15/2020 12:00:00 AM EST eCW1 ([facility]) Escitalopram 5 MG Oral Tablet [Lexapro] 12/15/2020 12:00:00 AM EST eCW1 ([facility]ly [facility]) Escitalopram 5 MG Oral Tablet [Lexapro] 12/15/2020 12:00:00 AM EST eCW1 (Formerly [facility]) Cephalexin 500 MG Oral Capsule [Keflex] 09/22/2020 12:00:00 AM EST eCW1 (Formerly [facility]) Cephalexin 500 MG Oral Capsule [Keflex] 09/22/2020 12:00:00 AM EST eCW1 (Formerly [facility]) Cephalexin 500 MG Oral Capsule [Keflex] 09/22/2020 12:00:00 AM EST eCW1 (Formerly [facility]) Ondansetron 4 MG Disintegrating Oral Tablet 08/18/2020 12:00:00 AM EDT eCW1 (Formerly [facility]) Ondansetron 4 MG Disintegrating Oral Tablet 08/18/2020 12:00:00 AM EDT eCW1 ([facility]ly [facility]) Ondansetron 4 MG Disintegrating Oral Tablet 08/18/2020 12:00:00 AM EDT eCW1 ([facility]ly [facility]) Ondansetron 4 MG Disintegrating Oral Tablet 08/18/2020 12:00:00 AM EDT eCW1 ([facility]) Ondansetron 4 MG Disintegrating Oral Tablet 08/18/2020 12:00:00 AM EDT eCW1 ([facility]) Ondansetron 4 MG Disintegrating Oral Tablet 08/18/2020 12:00:00 AM EDT eCW1 ([facility]) Ondansetron 4 MG Disintegrating Oral Tablet 08/18/2020 12:00:00 AM EDT eCW1 ([facility]) Ondansetron 4 MG Disintegrating Oral Tablet 08/18/2020 12:00:00 AM EDT eCW1 ([facility]) Ondansetron 4 MG Disintegrating Oral Tablet 08/18/2020 12:00:00 AM EDT eCW1 ([facility]ly [facility])
[2021-08-30] MEDS ORDERED: CHLO125TA PO (13:42)
[2021-08-30] MEDS ORDERED: METH-1165 PO (13:53)
[2021-08-30] MEDS ORDERED: DEXA0.5E2 PO (13:53)
[2021-08-30] MEDS ORDERED: ADME100I SC (13:53)
[2021-08-30] MEDS ORDERED: TRAM37.53 PO (13:53)
[2021-08-30] MEDS ORDERED: TORS5TAB2 PO (13:53)
[2021-08-30] MEDS ORDERED: LANTINJ4 SC (13:53)
[2021-08-30] MEDS ORDERED: MIRA0.12 PO (13:53)
[2021-08-30] MEDS ORDERED: ACET650T61 PO (13:53)
[2021-08-30] MEDS ORDERED: LOSA100T50 PO (13:53)
[2021-08-30] MEDS ORDERED: CYCL-707 PO (13:53)
[2021-08-30] MEDS ORDERED: LABE300T2 PO (13:53)
[2021-08-30] MEDS ORDERED: HOME MED LIST COMPLETE! XX SCH (13:55)
--- OUTSIDE RECORDS SUMMARY | 2021-08-30 13:58 | CCD ---
Author Author [facility] 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 [facility] Address Unknown Phone Unavailable Care Team Providers Care Jewel Inspector Name Role Phone Rosendo Pelayo MD Unavailable [...] WEDOW, AILEEN Unavailable Unavailable BUMBANAC, A STAR BARROW WORKER Unavailable Unavailable BUMBANAC, A STAR BARROW WORKER Unavailable Unavailable BUMBANAC, A STAR BARROW WORKER Unavailable Unavailable BUMBANAC, A STAR BARROW WORKER Unavailable Unavailable BUMBANAC, A STAR BARROW WORKER Unavailable Unavailable BUMBANAC, A STAR BARROW WORKER Unavailable Unavailable BUMBANAC, A STAR BARROW WORKER Unavailable Unavailable BUMBANAC, A STAR BARROW WORKER Unavailable Unavailable BUMBANAC, A STAR BARROW WORKER Unavailable Unavailable BUMBANAC, A STAR BARROW WORKER Unavailable Unavailable BUMBANAC, A STAR BARROW WORKER Unavailable Unavailable BUMBANAC, A STAR BARROW WORKER Unavailable Unavailable BUMBANAC, A STAR BARROW WORKER Unavailable Unavailable BUMBANAC, A STAR BARROW WORKER Unavailable Unavailable BUMBANAC, A STAR BARROW WORKER Unavailable Unavailable BUMBANAC, A STAR BARROW WORKER Unavailable Unavailable BUMBANAC, A STAR BARROW WORKER Unavailable Unavailable BUMBANAC, A STAR BARROW WORKER Unavailable Unavailable BUMBANAC, A STAR BARROW WORKER Unavailable Unavailable BUMBANAC, A STAR BARROW WORKER Unavailable Unavailable BUMBANAC, A STAR BARROW WORKER Unavailable Unavailable BUMBANAC, A STAR BARROW WORKER Unavailable Unavailable BUMBANAC, A STAR BARROW WORKER Unavailable Unavailable BUMBANAC, A STAR BARROW WORKER Unavailable Unavailable BUMBANAC, A STAR BARROW WORKER Unavailable Unavailable BUMBANAC, A STAR BARROW WORKER Unavailable Unavailable BUMBANAC, A STAR BARROW WORKER Unavailable Unavailable BUMBANAC, A STAR BARROW WORKER Unavailable Unavailable BUMBANAC, A STAR BARROW WORKER Unavailable Unavailable BUMBANAC, A STAR BARROW WORKER Unavailable Unavailable BUMBANAC, A STAR BARROW WORKER Unavailable Unavailable SARAH GRADY MD Unavailable Unavailable [...] Unavailable Unavailable MtanoBlaine kumar MD Unavailable Unavailable MtanosBaline MD Unavailable Unavailable [...] DAVID PA Unavailable Unavailable Hernandez, M Maik BARROW WORKER Unavailable Unavailable Hernandez, M Maik BARROW WORKER Unavailable Unavailable Hernandez, M Maik BARROW WORKER Unavailable Unavailable Hernandez, M Maik BARROW WORKER Unavailable Unavailable Hernandez, M Maik BARROW WORKER Unavailable Unavailable Hernandez, M Maik BARROW WORKER Unavailable Unavailable HERNANDEZ, W PABLO Unavailable Unavailable [...] is protected by Article 27-F of the [facility] Public Health law. If you continue you may have access to information: Regarding HIV / AIDS; Provided by facilities licensed or operated by the [facility] Office of Mental Health; or Provided by the [facility] Office for People With Developmental Disabilities. If such information is present, then the following [facility] mandated warning applies: This information has [...] law may result in a fine or half-way sentence or both. A general authorization for the release of medical or other information is NOT sufficient authorization for further disc losure. Allergies and Adverse Reactions Type Description Substance Reaction Status Data Source(s ) Propensity to adverse reactions COMPAZINE PO TAB 10 MG COMPAZINE PO TAB 10 MG [facility] Propensity to adverse reactions DEMEROL DEMEROL [facility] Propensity to adverse reactions PCN (penicillin) PCN (penicillin) [facility] Family History Family Member Name Family Member Gender Family Member Status Date o f Status Description Data Source(s) Unknown Male Problem (finding) 10/17/2014 12:00:00 AM EST NextGen ([facility]) Unknown Male Problem (finding) 10/17/2014 12:00:00 AM EST [facility] ([facility]) Unknown Male Problem MEDENT ([facility] () Unknown Unknown Problem [facility] ([facility]) Unknown Female Problem MEDENT ([facility]) Unknown Female Problem MEDENT ([facility]) Unknown Female Problem MEDENT ([facility]) Unknown Female Problem MEDENT ([facility]) Unknown Female Problem MEDENT ([facility]) Encounters Encounter Providers Location Date Indications Data Source(s ) Referrer: SARAH GRADY MD 08/25/2021 08:2 1:10 PM EDT [facility] 08/25/2021 08:21:10 PM EDT [facility] 08/25/2021 08:21:10 PM EDT [facility] [place] [address] [facility] [address] 08/11/2021 12:00:00 AM EDT eCW1 ([facility]) Outpatient Attender: LUZ ELENA EDDYReferrer: Pablo Hernandez EMERGENCY ROOM-LAB REFOTH 08/02/2021 11:33:00 AM EDT - 08/02/2021 11:33:00 AM EDT [facility] Unknown [address] [facility] [address] 06/15/2021 12:00:00 AM EDT eCW1 ([facility]) Outpatient Attender: LUDIN MIGUEL NPConsultant: SHASHANK COUCH 05/31/2021 03:28:00 PM EDT - 05/31/2021 03:28:00 PM EDT [facility] Unknown [address] [facility] [address] 05/31/2021 12:00:00 AM EDT eCW1 ([facility]) Outpatient Attender: Maik Hernandez NPConsultant: SHASHANK SÁNCHEZ PA 05/16/2021 10:55:00 AM EDT - 05/16/2021 11:05:00 AM EDT [facility] Out[place] [address] [facility] [address] 05/11/2021 12:00:00 AM EDT eCW1 ([facility]) Outpatient Attender: Maik Hernandez NPConsultant: SHASHANK SÁNCHEZ PA 05/04/2021 01:00:00 PM EDT - 05/04/2021 01:10:00 PM EDT [facility] Unknown [address] [facility] [address] 05/04/2021 12:00:00 AM EDT eCW1 ([facility]) [place] [address] [facility] [address] 05/04/2021 12:00:00 AM EDT eCW1 ([facility]) Unknown [address] [facility] [address] 05/04/2021 12:00:00 AM EDT eCW1 ([facility]) Unknown [address] [facility] [address] 04/21/2021 12:00:00 AM EDT eCW1 ([facility]) Unknown [address] [facility] [address] 04/13/2021 12:00:00 AM EDT eCW1 ([facility]) Unknown [address] [facility] [address] 04/09/2021 12:00:00 AM EDT eCW1 ([facility]) [place] [address] [facility] [address] 04/06/2021 12:00:00 AM EDT eCW1 ([facility]) Outpatient Attender: PABLO Mendoza: PABLO HERNANDEZ 04/05/2021 12:00:00 AM EDT - 04/06/2021 12:00:00 AM EDT Bone marrow transplant status [facility] Bone marrow transplant status Outpatient [address] [facility] [address] 04/01/2021 12:00:00 AM EDT eCW1 ([facility]) Unknown [address] [facility] [address] 03/29/2021 12:00:00 AM EDT eCW1 ([facility]) [facility] Pt. Level 3 [address] [place] [address] 03/25/2021 12:00:00 AM EDT eCW1 ([facility]) Unknown [address] [facility] [place] [address] 2021 12:00:00 AM EDT eCW1 ([facility]) Unknown [address] [facility] [address] 03/08/2021 12:00:00 AM EDT eCW1 ([facility]) (TV_Virtual) [facility] [address] [place] [address] 03/04/2021 12:00:00 AM EDT eCW1 ([facility]) Unknown [address] [facility] [place] [address] 03/02/2021 12:00:00 AM EDT eCW1 ([facility]) Unknown [address] [facility] [place] [address] 02/22/2021 12:00:00 AM EDT eCW1 ([facility]) Unknown [address] [facility] [place] [address] 02/21/2021 12:00:00 AM EDT eCW1 ([facility]) Unknown [address] [facility] [address] 02/18/2021 12:00:00 AM EDT eCW1 ([facility]) [place] [address] [facility] [address] 02/18/2021 12:00:00 AM EDT eCW1 ([facility]) Unknown [address] [facility] [address] 02/18/2021 12:00:00 AM EDT eCW1 ([facility]) [place] [address] [facility] [address] 02/15/2021 12:00:00 AM EDT eCW1 ([facility]) Outpatient Attender: DAVID COUCH Main Office 02/10/2021 1 0:15:00 AM EDT MEDENT ([facility]) [place] [address] [facility] [address] 02/04/2021 12:00:00 AM EDT eCW1 ([facility]) Unknown [address] [facility] [address] 01/27/2021 12:00:00 AM EDT eCW1 ([facility]) Unknown [address] [facility] [address] 01/27/2021 12:00:00 AM EDT eCW1 ([facility]) [place] [address] [facility] [address] 01/19/2021 12:00:00 AM EDT eCW1 ([facility]) [place] [address] [facility] [address] 01/10/2021 12:00:00 AM EST eCW1 ([facility]) [place] [address] [facility] [address] 01/10/2021 12:00:00 AM EST eCW1 ([facility]) [place] [address] [facility] [address] 12/23/2020 12:00:00 AM EST eCW1 ([facility]) [facility] Pt. Level 4 [address] [place] [address] 12/15/2020 12:00:00 AM EST [facility]CW1 [facility]) Unknown [address] [facility] [address] 12/07/2020 12:00:00 AM EST [facility]CW1 [facility] TeleMedicine Est. Pt. Level 4 [address] [place] [address] 11/17/2020 12:00:00 AM EST eCW1 ([facility]) Unknown [address] [facility] [address] 11/10/2020 12:00:00 AM EST eCW1 ([facility]) Unknown [address] [facility] [place] [address] 10/26/2020 12:00:00 AM EST eCW1 ([facility]) TeleMedicine Est. Pt. Level 3 [address] [place] [address] 10/22/2020 12:00:00 AM EST eCW1 ([facility]) Attender: Blaine Damon MD [facility] 10/13/2020 12:58:00 PM EST - 10/13/2020 12:58:00 PM EST NextGen ( [facility]) Outpatient Attender: AILEEN KOCHReferrer: AILEEN KOCH Library Director: SHASHANK COUCH 10/05/2020 12:00:00 PM EST - 10/05/2020 12:10:00 PM [facility] Outpatient Attender: PABLO Lightultant: SHASHANK COUCH 10/05/2020 11:59:00 AM EST - 10/05/2020 12:09:00 PM [facility] Unknown [address] [facility] [place] [address] 10/05/2020 12:00:00 AM EST eCW1 ([facility]) Outpatient [address] [facility] [place] [address] 09/22/2020 12:00:00 AM EST eCW1 ([facility]) Unknown [address] [facility] [place] [address] 09/21/2020 12:00:00 AM EST eCW1 ([facility]) [place] [address] [facility] [address] 09/16/2020 12:00:00 AM EST eCW1 ([facility]) Outpatient Attender: VAUGHN Masoner: Norberto sutton MD 09/05/2020 12:00:00 AM EDT - 09/06/2020 12:00:00 AM EDT [facility] Unknown [address] [facility] [address] 09/04/2020 12:00:00 AM EDT eCW1 ([facility]) Outpatient Attender: AILEEN KOCHConsultant: SHASHANK COUCH 08/31/2020 12:30:00 PM EDT - 08/31/2020 12:40:00 PM EDT [facility] Outpatient Attender: PABLO Lightultant: SHASHANK COUCH 08/31/2020 12:28:00 PM EDT - 08/31/2020 12:38:00 PM EDT [facility] Unknown [address] [facility] [address] 08/31/2020 12:00:00 AM EDT eCW1 ([facility]) [place] [address] [facility] [address] 08/25/2020 12:00:00 AM EDT eCW1 ([facility]) [place] [address] [facility] [place] [address] 08/24/2020 12:00:00 AM EDT eCW1 ([facility]) Unknown [address] [facility] [place] [address] 08/24/2020 12:00:00 AM EDT eCW1 ([facility]) Unknown [address] [facility] [address] 08/24/2020 12:00:00 AM EDT eCW1 ([facility]) Outpatient Attender: JORGE OROSCOReferrer: Norberto elizondo MD [id number] 08/18/2020 12:00:00 AM EDT - 08/19/2020 12:00:00 AM [facility] Outpatient 08/15/2020 12:00:00 AM [facility] Unknown [address] [facility] [address] 08/12/2020 12:00:00 AM EDT eCW1 ([facility] [place] [address] [facility] [place] [address] 08/11/2020 12:00:00 AM EDT eCW1 ([facility]) Unknown [address] [facility] [place] [address] 08/06/2020 12:00:00 AM EDT eCW1 ([facility]) [place] [address] [facility] [address] 08/04/2020 12:00:00 AM EDT eCW1 ([facility]) [place] [address] [facility] [address] 07/28/2020 12:00:00 AM EDT eCW1 ([facility]) Outpatient Attender: AILEEN KOCHConsultant: SHASHANK COUCH 07/07/2020 10:49:00 AM EDT - 07/07/2020 10:59:00 AM EDT [facility] Outpatient Attender: PABLO Lightultant: SHASHANK COUCH 07/07/2020 10:46:00 AM EDT - 07/07/2020 10:56:00 AM EDT [facility] Immunizations Vaccine Date Status Description Data Source(s) COVID-19 VACC,MRNA(MODERNA)/PF 07/23/2021 12:00:00 AM EDT completed [facility] COVID-19 VACCINE Moderna 07/23/2021 12:00:00 AM EDT completed [facility] Vaccine Series Complete: YESThis Data wa s Submitted to [facility] [employer]. COVID-19 VACCINE Moderna 02/01/2021 12:00:00 AM EDT completed [facility] Vaccine Series Complete: YESThis Data wa s Submitted to [facility] [employer]. COVID-19 VACCINE Moderna 01/04/2021 12:00:00 AM EST completed [facility] Vaccine Series Complete: NOThis Data was Submitted to [facility] [employer]. Medications Medication Brand Name Start Date Product [...] AM EDT active Lorazepam 1 MG eCW1 ([facility]) 1 mg 08/10/2021 12:00:00 AM EDT [...] AM EDT active Lorazepam 1 MG eCW1 ([facility]) Acetaminophen 325 MG / Hydrocodone Bitartrate [...] 5.0 {drops_into_affected_ear} active Debrox 6.5 % eCW1 ([facility]) Mupirocin 20 MG/ML Topical Cream Mupirocin Calcium 2 % Mupir ocin Calcium 2 % 05/04/2021 12:00:00 AM EDT 1.0 {application} act fany Mupirocin Calcium 2 % eCW1 ([facility]) Mupirocin 20 MG/ML Topical Cream Mupirocin Calcium 2 % Mupir ocin Calcium 2 % 05/04/2021 12:00:00 AM EDT 1.0 {application} act fany Mupirocin Calcium 2 % eCW1 ([facility]) Mupirocin 20 MG/ML Topical Cream Mupirocin Calcium 2 % Mupir ocin Calcium 2 % 05/04/2021 12:00:00 AM EDT 1.0 {application} act fany Mupirocin Calcium 2 % eCW1 ([facility]) Mupirocin 20 MG/ML Topical Cream Mupirocin Calcium 2 % Mupir ocin Calcium 2 % 05/04/2021 12:00:00 AM EDT 1.0 {application} act fany Mupirocin Calcium 2 % eCW1 ([facility]) carbamide peroxide 65 MG/ML Otic Solution [Debrox] Debrox 6. 5 % Debrox 6.5 % 05/04/2021 12:00:00 AM EDT 5.0 {drops_into_affected_ear} active Debrox 6.5 % eCW1 ([facility]) Mupirocin 20 MG/ML Topical Cream Mupirocin Calcium 2 % Mupir ocin Calcium 2 % 05/04/2021 12:00:00 AM EDT 1.0 {application} active eCW1 ([facility]) carbamide peroxide 65 MG/ML Otic Solution [Debrox] Debrox 6. 5 % Debrox 6.5 % 05/04/2021 12:00:00 AM EDT 5.0 {drops_into_affected_ear} active Debrox 6.5 % eCW1 ([facility]) carbamide peroxide 65 MG/ML Otic Solution [Debrox] Debrox 6. 5 % Debrox 6.5 % 05/04/2021 12:00:00 AM EDT 5.0 {drops_into_affected_ear} active Debrox 6.5 % eCW1 ([facility]) Mupirocin 20 MG/ML Topical Cream Mupirocin Calcium 2 % Mupir ocin Calcium 2 % 05/04/2021 12:00:00 AM EDT 1.0 {application} act fany Mupirocin Calcium 2 % eCW1 ([facility]) carbamide peroxide 65 MG/ML Otic Solution [Debrox] Debrox 6. 5 % Debrox 6.5 % 05/04/2021 12:00:00 AM EDT 5.0 {drops_into_affected_ear} active Debrox 6.5 % eCW1 ([facility]) carbamide peroxide 65 MG/ML Otic Solution [Debrox] Debrox 6. 5 % Debrox 6.5 % 05/04/2021 12:00:00 AM EDT 5.0 {drops_into_affected_ear} active Debrox 6.5 % eCW1 ([facility]) carbamide peroxide 65 MG/ML Otic Solution [Debrox] Debrox 6. 5 % Debrox 6.5 % 05/04/2021 12:00:00 AM EDT 5.0 {drops_into_affected_ear} active eCW1 ([facility]) Mupirocin 20 MG/ML Topical Cream Mupirocin Calcium 2 % Mupir ocin Calcium 2 % 05/04/2021 12:00:00 AM EDT 1.0 {application} act fany Mupirocin Calcium 2 % eCW1 ([facility]) 10 mg 04/28/2021 12:00:00 AM EDT [...] {tablet} active Le xapro 5 MG eCW1 ([facility]) Escitalopram 5 MG Oral Tablet [Lexapro] Lexapro 5 MG Lexapro 5 MG 03/26/2021 12:00:00 AM EDT 1.0 {tablet} active eCW1 ([facility]) 0.125 mg 03/26/2021 12:00:00 AM EDT tablet 90 TAKE THREE TABLETS BY MOUTH EVERY NIGHT TAKE THREE TABLETS BY MOUTH EVERY NIGHT SOLD: 07/20/2021 [facility] Escitalopram 5 MG Oral Tablet [Lexapro] Lexapro 5 MG Lexapro 5 MG 03/26/2021 12:00:00 AM EDT 1.0 {tablet} active Le xapro 5 MG eCW1 ([facility]) 0.125 mg 03/26/2021 12:00:00 AM EDT [...] EDT ORAL active MEDENT ([facility]) Cholecalciferol 2000 UNT Oral Tablet Vitamin D3 02/09/2021 12:00:00 A M EDT ORAL active [facility] ([facility]) ferrous gluconate 256 MG Oral Tablet Iron (Ferrous Gluconate ) 02/09/2021 12:00:00 AM EDT ORAL active M EDENT ([facility]) Acyclovir 400 MG Oral Tablet Acyclovir 02/09/2021 12:00:00 AM EDT ORAL active [facility] ([facility]) Labetalol hydrochloride 100 MG Oral Tablet Labetalol HCL 02/09/2021 12:00:00 AM EDT ORAL active [facility] ([facility]) Amlodipine 5 MG Oral Tablet Amlodipine Besylate 02/09/2021 12:00:00 A M EDT ORAL active [facility] ([facility]) Prednisone 5 MG Oral Tablet Prednisone 02/09/2021 12:00:00 AM EDT ORAL active [facility] ([facility]) 24 HR Oxybutynin chloride 15 MG Extended Release Oral Tablet Oxybutynin Chloride ER 02/09/2021 12:00:00 AM EDT ORAL active [facility] ([facility]) 24 HR Diltiazem Hydrochloride 120 MG Extended Release Oral C apsule Diltiazem CD 02/09/2021 12:00:00 AM EDT ORAL active [facility] ([facility]) Aspirin 81 MG Delayed Release Oral Tablet Aspirin 81 2020 12:00:00 AM EDT ORAL active [facility] ( [facility]) Admelog Solostar Admelog Solostar 02/09/2021 12:00:00 AM EDT active [facility] repaglinide 2 MG Oral Tablet Repaglinide 02/09/2021 12:00:00 AM EDT ORAL active [facility] ([facility]) Clotrimazole 10 MG/ML Topical Cream Clotrimazole 02/09/2021 12:00:00 AM EDT active [facility] ([facility]) 60 ACTUAT Budesonide 0.16 MG/ACTUAT / fo rmoterol fumarate 0.0045 MG/ACTUAT Metered Dose Inhaler Budesonide/Formoterol Fumarate Dihydrate 02/09/2021 12:00:00 AM EDT RESPIRATORY active [facility] ([facility]) Dexamethasone 0.1 MG/ML Oral Solution Dexamethasone 02/09/2021 12:00:00 AM EDT ORAL active [facility] ( [facility]) Hydroxychloroquine Sulfate 200 MG Oral Tablet Hydroxychloroq uine Sulfate 02/09/2021 12:00:00 AM EDT ORAL active [facility] ([facility]) Hydrocortisone 10 MG/ML Topical Cream Hydrocortisone 02/09/2021 12:00:00 AM EDT active [facility] ( [facility]) Folic Acid 1 MG Oral Tablet Folic Acid 02/09/2021 12:00:00 AM EDT ORAL active [facility] ([facility]) difluprednate 0.5 MG/ML Ophthalmic Suspension [Durezol] Dure zol 02/09/2021 12:00:00 AM EDT completed [facility] ([facility]) Pramipexole dihydrochloride 0.125 MG Oral Tablet Pramipexole Dihydrochloride 02/09/2021 12:00:00 AM EDT ORAL active [facility] ([facility]) montelukast 10 MG Oral Tablet Montelukast Sodium 02/09/2021 12:00:00 AM EDT ORAL active [facility] ([facility] Lidocaine Hydrochloride 20 MG/ML Injectable Solution [Xyloca ine] Xylocaine 02/09/2021 12:00:00 AM EDT active [facility] ([facility]) Ketorolac Tromethamine 5 MG/ML Ophthalmic Solution Ketorolac Tromethamine 02/09/2021 12:00:00 AM EDT OPHTHALMIC completed [facility] ([facility]) Acetaminophen 325 MG / tramadol hydrochloride 37.5 MG Oral Tablet Tramadol Hydrochloride/Acetaminophen 02/09/2021 12:00:00 AM EDT ORAL active [facility] ([facility]) Chlorthalidone 25 MG Oral Tablet Chlorthalidone 02/09/2021 12:00:00 A M EDT ORAL active [facility] ([facility] 2.5 mg 02/08/2021 12:00:00 AM EDT tablet [...] DAILY DOSE = THREE TABLETS SOLD: 04/27/2021 [facility] Acetaminophen 325 MG / tramadol hydrochloride 37.5 MG Oral Tablet 37.5-325 mg TRAMADOL HCL/ACETAMINOPHEN 12/19/2020 12:00:00 AM EST tablet 21 TAKE ONE TABLET BY MOUTH THREE TIMES A DAY NEEDED FOR PAIN, MAXIMUM DAILY DOSE = THREE TABLETS TAKE ONE TABLET BY MOUTH THREE TIMES A D AY NEEDED FOR PAIN, MAXIMUM DAILY DOSE = THREE TABLETS SOLD: 12/20/2020 [facility] 10 mg 12/18/2020 12:00:00 AM EST tablet 30 TAKE ONE TABLET BY MOUTH EVERY DAY TAKE ONE TABLET BY MOUTH EVERY DAY SOLD: 12/19/2020 [facility] 10 mg 12/18/2020 12:00:00 AM EST tablet 30 TAKE ONE TABLET BY MOUTH EVERY DAY TAKE ONE TABLET BY MOUTH EVERY DAY SOLD: 01/17/2021 [facility] 10 mg 12/18/2020 12:00:00 AM EST tablet 30 TAKE ONE TABLET BY MOUTH EVERY DAY TAKE ONE TABLET BY MOUTH EVERY DAY SOLD: 04/07/2021 [facility] Cyclobenzaprine hydrochloride 10 MG Oral Tablet CYCLOBENZAPR INE HCL 12/17/2020 12:00:00 AM EST tablet 60 TAKE ONE TABLET BY MOUTH THREE TIMES A DAY NEEDED TAKE ONE TABLET BY MOUTH THREE TIMES A DAY NEEDED SOLD: 12/17/2020 [facility] Escitalopram 5 MG Oral Tablet [Lexapro] Lexapro 5 MG Lexapro 5 MG 12/15/2020 12:00:00 AM EST 1.0 {tablet} active Le xapro 5 MG eCW1 ([facility]) Escitalopram 5 MG Oral Tablet [Lexapro] Lexapro 5 MG Lexapro 5 MG 12/15/2020 12:00:00 AM EST 1.0 {tablet} active Le xapro 5 MG eCW1 ([facility]) Escitalopram 5 MG Oral Tablet [Lexapro] Lexapro 5 MG Lexapro 5 MG 12/15/2020 12:00:00 AM EST 1.0 {tablet} active Le xapro 5 MG eCW1 ([facility]) 2 mg 12/15/2020 12:00:00 AM EST [...] {tablet} active Le xapro 5 MG eCW1 ([facility]) 2 mg 12/15/2020 12:00:00 AM EST [...] {tablet} active Le xapro 5 MG eCW1 ([facility]) Escitalopram 5 MG Oral Tablet ESCITALOPRAM OXALATE 12/15/2020 12 :00:00 AM EST tablet 30 TAKE ONE TABLET BY MOUTH EVERY D AY TAKE ONE TABLET BY MOUTH EVERY DAY SOLD: 12/15/2020 [facility] Escitalopram 5 MG Oral Tablet [Lexapro] Lexapro 5 MG Lexapro 5 MG 12/15/2020 12:00:00 AM EST 1.0 {tablet} active Le xapro 5 MG eCW1 ([facility]) 2 mg 12/15/2020 12:00:00 AM EST [...] {tablet} active Le xapro 5 MG eCW1 ([facility]) Escitalopram 5 MG Oral Tablet ESCITALOPRAM [...] {tablet} active Le xapro 5 MG eCW1 ([facility]) Escitalopram 5 MG Oral Tablet [Lexapro] Lexapro 5 MG Lexapro 5 MG 12/15/2020 12:00:00 AM EST 1.0 {tablet} active Le xapro 5 MG eCW1 ([facility]) Escitalopram 5 MG Oral Tablet [Lexapro] Lexapro 5 MG Lexapro 5 MG 12/15/2020 12:00:00 AM EST 1.0 {tablet} active Le xapro 5 MG [facility] [facility]) 2 mg 12/15/2020 12:00:00 AM EST [...] {tablet} active Le xapro 5 MG eCW1 ([facility]) Escitalopram 5 MG Oral Tablet [Lexapro] Lexapro 5 MG Lexapro 5 MG 12/15/2020 12:00:00 AM EST 1.0 {tablet} active Le xapro 5 MG eCW1 ([facility]) Escitalopram 5 MG Oral Tablet ESCITALOPRAM OXALATE 12/15/2020 12 :00:00 AM EST tablet 30 TAKE ONE TABLET BY MOUTH EVERY D AY TAKE ONE TABLET BY MOUTH EVERY DAY SOLD: 03/09/2021 [facility] Escitalopram 5 MG Oral Tablet [Lexapro] Lexapro 5 MG Lexapro 5 MG 12/15/2020 12:00:00 AM EST 1.0 {tablet} active Le xapro 5 MG eCW1 ([facility]) Escitalopram 5 MG Oral Tablet [Lexapro] Lexapro 5 MG Lexapro 5 MG 12/15/2020 12:00:00 AM EST 1.0 {tablet} active Le xapro 5 MG eCW1 ([facility]) Escitalopram 5 MG Oral Tablet [Lexapro] Lexapro 5 MG Lexapro 5 MG 12/15/2020 12:00:00 AM EST 1.0 {tablet} active Le xapro 5 MG eCW1 ([facility]) Escitalopram 5 MG Oral Tablet [Lexapro] Lexapro 5 MG Lexapro 5 MG 12/15/2020 12:00:00 AM EST 1.0 {tablet} active Le xapro 5 MG eCW1 ([facility]) Escitalopram 5 MG Oral Tablet [Lexapro] Lexapro 5 MG Lexapro 5 MG 12/15/2020 12:00:00 AM EST 1.0 {tablet} active Le xapro 5 MG eCW1 ([facility]) montelukast 10 MG Oral Tablet MONTELUKAST [...] {capsule} active K eflex 500 MG eCW1 ([facility]) 15 mg 09/22/2020 12:00:00 AM EST tablet extended release 24hr 30 TAKE ONE TABLET BY MOUTH EVERY DAY AT BEDTIME TAKE ONE TABLET BY MOUTH EVERY DAY AT BEDTIME SOLD: 04/07/2021 [facility] Cephalexin 500 MG Oral Capsule [Keflex] Keflex 500 MG Keflex 500 MG 09/22/2020 12:00:00 AM EST 1.0 {capsule} active K eflex 500 MG eCW1 ([facility]) 15 mg 09/22/2020 12:00:00 AM EST [...] {capsule} active K eflex 500 MG eCW1 ([facility]) 15 mg 09/22/2020 12:00:00 AM EST [...] {capsule} active K eflex 500 MG eCW1 ([facility]) 15 mg 09/22/2020 12:00:00 AM EST tablet extended release 24hr 30 TAKE ONE TABLET BY MOUTH EVERY DAY AT BEDTIME TAKE ONE TABLET BY MOUTH EVERY DAY AT BEDTIME SOLD: 12/07/2020 [facility] Cephalexin 500 MG Oral Capsule [Keflex] Keflex 500 MG Keflex 500 MG 09/22/2020 12:00:00 AM EST 1.0 {capsule} active K eflex 500 MG eCW1 ([facility]) Cephalexin 500 MG Oral Capsule [Keflex] Keflex 500 MG Keflex 500 MG 09/22/2020 12:00:00 AM EST 1.0 {capsule} active K eflex 500 MG eCW1 ([facility]) 15 mg 09/22/2020 12:00:00 AM EST [...] {capsule} active K eflex 500 MG eCW1 ([facility]) 15 mg 09/22/2020 12:00:00 AM EST tablet extended release 24hr 30 TAKE ONE TABLET BY MOUTH EVERY DAY AT BEDTIME TAKE ONE TABLET BY MOUTH EVERY DAY AT BEDTIME SOLD: 05/11/2021 [facility] Cephalexin 500 MG Oral Capsule [Keflex] Keflex 500 MG Keflex 500 MG 09/22/2020 12:00:00 AM EST 1.0 {capsule} active K eflex 500 MG eCW1 ([facility]) 15 mg 09/22/2020 12:00:00 AM EST [...] 1.0 {tablet_on_the_tongue_and_allow_to_dissolve} active Ondansetron 4 MG eCW1 ([facility]) Ondansetron 4 MG Disintegrating Oral Tablet Ondansetron 4 MG 08/18/2020 12:00:00 AM EDT 1.0 {tablet_on_the_tongue_and_allow_to_dissolve} active Ondansetron 4 MG eCW1 ([facility]) Ondansetron 4 MG Disintegrating Oral Tablet Ondansetron 4 MG 08/18/2020 12:00:00 AM EDT 1.0 {tablet_on_the_tongue_and_allow_to_dissolve} active Ondansetron 4 MG eCW1 ([facility]) Ondansetron 4 MG Disintegrating Oral Tablet Ondansetron 4 MG 08/18/2020 12:00:00 AM EDT 1.0 {tablet_on_the_tongue_and_allow_to_dissolve} active Ondansetron 4 MG eCW1 ([facility]) Ondansetron 4 MG Disintegrating Oral Tablet Ondansetron 4 MG 08/18/2020 12:00:00 AM EDT 1.0 {tablet_on_the_tongue_and_allow_to_dissolve} active Ondansetron 4 MG eCW1 ([facility]) Ondansetron 4 MG Disintegrating Oral Tablet Ondansetron 4 MG 08/18/2020 12:00:00 AM EDT 1.0 {tablet_on_the_tongue_and_allow_to_dissolve} active Ondansetron 4 MG eCW1 ([facility]) Ondansetron 4 MG Disintegrating Oral Tablet Ondansetron 4 MG 08/18/2020 12:00:00 AM EDT 1.0 {tablet_on_the_tongue_and_allow_to_dissolve} active Ondansetron 4 MG eCW1 ([facility]) Ondansetron 4 MG Disintegrating Oral Tablet Ondansetron 4 MG 08/18/2020 12:00:00 AM EDT 1.0 {tablet_on_the_tongue_and_allow_to_dissolve} active Ondansetron 4 MG eCW1 ([facility]) Ondansetron 4 MG Disintegrating Oral Tablet Ondansetron 4 MG 08/18/2020 12:00:00 AM EDT 1.0 {tablet_on_the_tongue_and_allow_to_dissolve} active Ondansetron 4 MG eCW1 ([facility]) Ondansetron 4 MG Disintegrating Oral Tablet Ondansetron 4 MG 08/18/2020 12:00:00 AM EDT 1.0 {tablet_on_the_tongue_and_allow_to_dissolve} active Ondansetron 4 MG eCW1 ([facility]) Ondansetron 4 MG Disintegrating Oral Tablet Ondansetron 4 MG 08/18/2020 12:00:00 AM EDT 1.0 {tablet_on_the_tongue_and_allow_to_dissolve} active Ondansetron 4 MG eCW1 ([facility]) Ondansetron 4 MG Disintegrating Oral Tablet Ondansetron 4 MG 08/18/2020 12:00:00 AM EDT 1.0 {tablet_on_the_tongue_and_allow_to_dissolve} active Ondansetron 4 MG eCW1 ([facility]) Ondansetron 4 MG Disintegrating Oral Tablet Ondansetron 4 MG 08/18/2020 12:00:00 AM EDT 1.0 {tablet_on_the_tongue_and_allow_to_dissolve} active Ondansetron 4 MG eCW1 ([facility]) Ondansetron 4 MG Disintegrating Oral Tablet Ondansetron 4 MG 08/18/2020 12:00:00 AM EDT 1.0 {tablet_on_the_tongue_and_allow_to_dissolve} active Ondansetron 4 MG eCW1 ([facility]) Ondansetron 4 MG Disintegrating Oral Tablet Ondansetron 4 MG 08/18/2020 12:00:00 AM EDT 1.0 {tablet_on_the_tongue_and_allow_to_dissolve} active Ondansetron 4 MG eCW1 ([facility]) Ondansetron 4 MG Disintegrating Oral Tablet Ondansetron 4 MG 08/18/2020 12:00:00 AM EDT 1.0 {tablet_on_the_tongue_and_allow_to_dissolve} active Ondansetron 4 MG eCW1 ([facility]) Ondansetron 4 MG Disintegrating Oral Tablet Ondansetron 4 MG 08/18/2020 12:00:00 AM EDT 1.0 {tablet_on_the_tongue_and_allow_to_dissolve} active Ondansetron 4 MG eCW1 ([facility]) 4 mg 08/18/2020 12:00:00 AM EDT [...] Policy Sharma Plan Information [employer] [id number] SP [id number] [facility] Federal Service Medigap Part B [id number] Family De pendent Ghi/Emblem HLTH (pr) Medigap Part B [id number] Self PGBA [facility] 10/21/15 [facility] 10/21/15 MEDICARE [id number] SP [id number] A POMCO [id number] Liv [id number] POMCO [id number] Liv [id number] POMCO U [id number] Self [id number] POMCO [id number] SP [id number] [place] (pr) Medigap Part B [id number] Self UMR [facility] [id number] SP [id number] [place] [id number] S [id number] [place] [id number] S [id number] [place] [id number] S [id number] MEDICARE A [id number] Self [id number] MEDICARE [id number] Liv [id number] [id number] MEDICARE [id number] SP [id number] A [place] MEDICARE DIVISION [id number] S [id number] MEDICARE [id number] Liv [id number] A MEDICARE A [id number] Self [id number] A MEDICARE [id number] Liv [id number] A UPSTATE MEDICARE DIVISION [id number] S [id number] [place] MEDICARE DIVISION [id number] S [id number] U [id number] Spouse [id number] 703 [id number] Liv [id number] Liv [id number] [facility]) Medigap Part B [id number] Family Dep endent Medicare Dme Supplies Medigap Part B [id number] Self Medicare [place] Primary [id number] Self WPS For Life Medigap Part B [id number] Family Dependent 1 [id number] WPS For Life Medigap Part B [id number] Family Dependent 1 [id number] FOR LIFE [id number] 2 [id number] R U [id number] Self [id number] POMCO [id number] SP [id number] POMCO [id number] SP [id number] R [id number] S [id number] R [id number] S [id number] FOR LIFE U [id number] Spouse 0 [id number] FOR LIFE [id number] SP [id number] FOR LIFE [id number] 2 [id number] [facility] [id number] SP [id number] [facility] Commercial [id number] Self [id number] ANSI-Medicare Part B [id number]-[id number] ANSI-Commercial zgwp3e73-19o7-8i1j-a738-00304095190x kgzs5i32-38i0-4t7e-a964-84935842316p ANSI-Commercial 92z19b2e-w45y-6543-aiy0-15v9073028td 76y90m4k-o76w-2420-oos8-58w1603876do ANSI-Commercial 8wt22400-7w6a-1szq-3r38-0u712z204753 4kz03439-5v5v-7qnq-3c81-6f007h201410 ANSI-Commercial 10w763iy-ykoj-5wjz-k0ts-360k144d3759 84w199dl-hvai-5lsw-g2vj-409p487k7418 ANSI-Commercial 41xi81t1-5392-531t-54kj-0l1dx637gll8 23ye63k9-5565-347d-54zx-9d0ro768afi9 ANSI-Medicare Part B [id number]-r61o-[id number] 1s5s2x1o-5o16-089d-q66i-cr7hyd089389 ANSI-Commercial 5wt254u5-96ug-1q3q-70c3-m1748125g066 7jp166z4-87hl-4o2w-40r2-q3494044d318 ANSI-Commercial r7v10922-2604-380y-7524-21109rjpnf2o e1p77378-6371-182r-1592-78432rhklt3m ANSI-Commercial 1n8ehf25-00h0-6t27-64cj-c5686xj213u0 2w2cvd26-56d9-4q99-46fh-p7252yq845y8 ANSI-Medicare Part B [id number]-[id number] s4093149-l8g7-1p31-12y3-x35dfv664t82 [facility] [id number] [facility] [id number] ANSI-Medicare Part B [id number] [id number]-387e-o72u-5zy0f22163y1 ANSI-Commercial 7i26lt83-i64h-38c8-9i1q-gsp6j55x2d57 9a97zh53-h71o-02y5-9i9m-asn4r19b8s38 ANSI-Commercial 4h5l1918-0i8r-26b0-hr67-91fff39m9j03 4h6q5225-1y4k-73r1-xk65-59tbi87n4y97 ANSI-Commercial s14z9y85-873n-0g38-z161-3a403g8503uy k34a6c33-657k-3w21-e700-4u147k1477sm ANSI-Commercial 171i2510-47i1-0m7j-7z75-6p94r6x2e819 356k3387-94t6-0y4o-1i39-4d46h9a6z454 ANSI-Medicare Part B [id number]878 5l973h28-66r4-8807-54u9-6arb3r1zu492 ANSI-Commercial 03wvc589-99i8-1292-h0cc-61504i19y39e 03ila206-58j1-7703-z8sr-70112o36i79q ANSI-Commercial n6is0r19-227a-3217-n493-5q20d0j7v4b7 i5mh9n71-901d-0180-c681-7s25i9i4w7d6 ANSI-Medicare Part B [id number]-63x5-iwut-[id number] 023qx732-9k1c-84d2-ydbl-1v65la673925 ANSI-Commercial 5ez2d7p4-6h1q-5837-5817-kj16b9a333d8 1mc4h1p1-4f1z-4118-1654-pd00h9d231m8 ANSI-Commercial 6naq5048-k749-78v0-s434-05emc7yk5378 7kyi5875-t166-02c1-b656-89eyg4vh7894 ANSI-Commercial hyj149j3-855z-9066-w20k-j9cl8942btw4 ibb531r6-513a-7315-t67m-g5ze5623ufy8 ANSI-Commercial w663t227-92m2-44x2-j053-33cx94jrmnm9 e797x937-63r3-16s2-a207-55zl02kpkkk7 ANSI-Commercial d10f24sl-va1u-0978-o048-7h3lm6oe4230 l71m16xl-sv9e-1866-s143-5x5lg5vu1784 ANSI-Commercial d46xz2dx-02dt-7ap8-1z0j-350f2x497k18 w83xq2bf-17vr-5gs3-1z4r-647h2k864h38 ANSI-Medicare Part B [id number]-lt3g-6ohc6r791r84 9z4ue171-4k68-1438-ym9p-6onh9s716b93 For Life - W[facility] Part B [id number] Family Dependent [id number] [facility] [id number] Self [id number] Medicare (Part B) Medicare Primary [id number] Self [id number] ANSI-Medicare Part B [id number]-z873-2a4y2f09e337 4907p726-a5w5-5w4r-m123-6g4z8r21l936 ANSI-Commercial 30z4v195-18f9-919o-5ie1-75154wz3f699 13z2c556-70u3-750f-5ck2-83054ay6j833 ANSI-Commercial 23l4el7d-4979-9683-c66f-4x3h70j53v4a 54q3mo0z-9737-5501-w57k-2h6r55n76f6g ANSI-Commercial 0882jz49-9793-1215-a133-18l889e139c0 3913or77-2196-7979-a758-93y124o756r7 ANSI-Commercial 7c4k7zn0-3h87-0402-25qy-538i55777p12 7v4k4zs5-5j11-1602-22ju-260p96653r30 ANSI-Commercial sf17e3rh-b3qu-4v77-sc46-yvsv6r246481 mb04x8xh-j4mb-3p07-jm26-stth1s740032 ANSI-Commercial 354c5199-92xz-5tw8-4746-219qt6t5p2i7 935r1181-41qs-1oo7-0927-041nu6r4a8v4 ANSI-Medicare Part B [id number]-61fc-j2du-m72v74j141v3 54295i9m-lq3f-97zf-e9ea-q90r08h399b5 ANSI-Commercial 0q03h8f8-u1m5-6514-nx26-n5is1k5670fl 8o45l3e6-w4z6-3215-as53-w8xn4u2018la ANSI-Commercial 5pp1zk0a-dy84-176o-6464-e2k5t7s7045o 2qa2cw6b-xe35-252e-3819-i3x8h1k8721t ANSI-Medicare Part B [id number]-8552-b5mc-8k9l72h3o5bi o51i8s09-9h8b-3577-y5qb-0t7k24p8m0gz ANSI-Commercial l1q29yy3-2cyc-8657-r3f9-2909680csq8q a0a96kf2-6opt-5138-u6l5-8885138lwx0s ANSI-Commercial l7x33166-a11b-216i-ue61-ekwkt4w2w0y3 q0j37543-d44k-195f-ub53-mgeel7u1u5e2 ANSI-Commercial 796q16v3-8532-65h5-rz07-326d06arhd89 163z52d8-0973-34w8-jg79-989w59cyel00 ANSI-Commercial 4420kgqk-865p-9l082u08-0p44-4685b43168bo 6363anud-461q-4h788o65-2e24-3965w25180zl ANSI-Medicare Part B [id number]-n330-03u2-5njc-n4b79kyiq67p 02m86905-b238-16f1-3pnx-n5i23oslb48x ANSI-Commercial di995e26-1655-1h0d-43qn-54f362legs0d ik813m82-2448-6i7r-05is-03w916dqaf6x ANSI-Commercial 423609c8-4z24-0b23-3c74-3t5o7594787u 714020f2-3b03-1d35-1y78-7y9t4293509c ANSI-Medicare Part B [id number]-b4fm-16c3-dw05-9a3l9u50027g 73669r60-u9ij-89e1-wf19-1v6h3n19750s ANSI-Commercial 0136p00p-28f3-66b4-u470-bi7n754f264t 3733a96t-00f8-80i4-y329-xv5g657k253i ANSI-Commercial d222n7i6-97ng-47xt-2787-eyqq8z852014 h287n9a6-19wf-28nt-1693-ntrl3l955082 ANSI-Commercial ontev92b-8t32-08gw-l755-32qp435wk400 iivdo80d-2b14-04fb-x824-01xi401uf444 ANSI-Commercial 77fs4sp0-3546-643h-rtc1-741nf47k4k7t 00bq4fz0-5552-638n-zne6-912as31s7z2d ANSI-Medicare Part B [id number]-w65p-043j-x74a-20k3741c93c8 489s6104-o79l-877i-x70u-91r4896z92o4 ANSI-Commercial 4198758m-u7qk-3wge-lts2-74z02rv00y6t 3598477h-r3ra-1dmz-etf0-89m89hp85n2s ANSI-Commercial 7260c553-7l66-7e81-47be-w7ut6a3b4c14 9813c807-4t88-5l14-39nc-u0lq1h6r8g42 [facility]-Medicare Part B [id number]-4908-82is-zh1c-9633137202qj j5546x7l-5567-37bb-fh9l-9978410646dp ANSI-Commercial 653z1es9-183q-363g-3gz7-1b755v73574g 105f6gg9-173h-269v-8qb3-4t064d21593u ANSI-Commercial x7545h22-4886-2h9t-p9mq-a0288g422a1q q7052b03-6350-5u9b-k5jk-k3663q164d1y ANSI-Medicare Part B [id number]-g85269e306p7 j04a8uz6-56d2-0v14-120o-g74931e407a4 ANSI-Commercial 43d0l722-2nm0-70n3-hx07-b4j0w4lh206v 83u1c375-5uk0-41s2-qs75-m8b8d4ap804j ANSI-Commercial ckh46822-o036-059a-d887-x63339j512sx udi81548-e961-062a-d954-j06143o311ld ANSI-Commercial 88cz7554-28p4-0832-966h-x15l6j8045a1 68cq9648-64e6-1912-363e-s70a0e4925c1 [facility] [id number]-9815-g3y06bmre6b3 22o618m4-3g04-25zs-5571-m6y22wegf4l3 ANSI-Commercial f42502py-wx4g-8w1m-693u-v52d5c24ax88 y94411xz-kl1r-2x0j-394t-h05k2v91cd75 ANSI-Commercial x366iy07-1x4q-3747-w84d-r8s6791337d5 x472hf91-5j5f-7080-z39z-f6m9588078a7 ANSI-Medicare Part B r65xw5t2-535f-1950-7p5u-cxi44oln581t g99an5i3-926u-4342-4k4m-pvp08axe357x ANSI-Commercial xeqr3508-59k7-78c1-qz47-77g426s6x26l iist8402-74r6-70f8-za26-64u839h6o01g ANSI-Commercial zc1uhb60-z06w-89ae-9ri3-a033l07fl0uz dz6mts52-u02w-98en-6id5-y002u02fw4zv ANSI-Commercial 20574x55-31sz-7e55-108i-85si8gf49239 40439z30-58wy-2l29-085x-93ox1ge71607 ANSI-Commercial d1p4x6wz-3994-8v26-c9vj-315s1l6m546k e6w0j3ia-5182-0u53-g3bo-542r0l2e572f ANSI-Medicare Part B i4ks2ch8-y4y5-0796-83vb-k1ey49uy577q j6vp2eo6-e8n7-2773-13kp-i4kt33vd150a ANSI-Commercial s5sz245y-5351-1916-s66n-4146vb1rg009 p1gn092x-4338-9468-u82y-7521ik0pb745 ANSI-Commercial 9ljn7807-w3y6-6633-39oj-1e3g7coh6or8 8ifb5388-h1p4-3146-22my-2h2f3vrw1ne3 ANSI-Commercial 98n5h6t2-6y34-35b6-v376-ajndni0763ub 53s4a2o6-9p42-01i7-r076-dliecl0614ts ANSI-Commercial b13p4694-491o-6g12-1j2e-7h8257rl0240 k70l6549-826v-5d52-2p9i-6f7473jl4753 ANSI-Commercial a44zb46h-28hg-6819-9cp8-i45o0s020r3l n32tu44o-00vj-4040-0gr0-t99g6g228r1s [facility] [id number]-26v6-8a57-1340-5bbi4x125108 p7m9k6fz-58s6-6i35-8181-0joh5v540084 ANSI-Commercial 8881r197-4048-43ql-x046-k555nr2btot4 3568e501-4619-31hk-e468-l187cr3uybt2 ANSI-Commercial l44o7326-67t5-44vp-s7rs-b12k7qgd56k7 m62l2604-02v4-25eb-m0xu-s09g8tjh33x9 ANSI-Commercial 05l898yh-4kzh-24z7-9d2m-74r35746s35j 53j508dz-7opd-21t1-6t5o-85r41429e33d ANSI-Medicare Part B 84r4v6f8-8d37-24x4-n976-9yq259o04ou4 75u2u4w9-0h52-16r3-q030-3iv049c31yy6 ANSI-Commercial ps00l6b8-o96b-42nr-ei7q-40uvc328q6di dq68z6q2-k96s-36ps-ci8q-76qhx235q5es ANSI-Commercial mz6ycbj4-7f1s-4i5f-63e5-6p4d8yu6920a qm0mtit3-5z7w-1x1y-22z4-8v6k3pb8495k ANSI-Medicare Part B bqa116k8-uc4p-3y87-h8py-4vp9c9933s4f qim590t8-pi5p-3s49-e7gn-7lv4r9624s2j ANSI-Commercial tp7c787t-6169-9on8-p444-57yu5c13cc1b ek1e066q-8962-3gn7-o958-84xu9f97hb8b ANSI-Medicare Part B h5d200o6-pjc2-6718-44n4-0rg65367r64y s3a692i0-zlm9-5565-63q8-7dc86300j56u ANSI-Commercial l25e478u-4gl1-6p9a-6690-935ki9qni927 c67o259z-3ev1-7q0x-4460-075dc7eih256 ANSI-Commercial 161e52lx-f4w3-3530-h765-x7w5667m4pqn 699s30nu-l3i7-4941-r540-p9m6703o6udp ANSI-Commercial 0q1405lb-46c3-7388-114m-p1113zji4069 4l4390du-87c2-3031-644e-t8288umz1737 ANSI-Commercial 57l3w972-qb4m-5u10-0768-62h19890win5 55g4z254-ey3p-8d85-8416-55q77179xei0 ANSI-Medicare Part B q660mz61-86i4-26j1-04ce-v94u65qk5jxv s492wb01-65c4-29g7-61he-f88f21vu3bxn ANSI-Commercial 0co1v93t-yi12-1d12-eh8c-68745hykn03i 7os8f42f-lq99-0j47-cx3y-00408roxn22e ANSI-Commercial g39w08um-o03p-47p9-b324-988962617t07 p16t00dl-q36q-53d5-y242-376981182j68 ANSI-Commercial w143wpin-to04-8ssw-ges9-hmw1254181bo j236ywqb-fm16-0wve-bsw4-xwr4858343bl ANSI-Commercial ee64306x-u6cz-8dd6-z93u-8xp1io773jku bu93870z-v0ft-9eo8-o72p-6gx5pj988kdn ANSI-Medicare Part B n70y794m-4u9b-5934-orl2-0we9y4pb14p5 r17t904p-0k4o-0805-dfh6-5vq1n7pd89f2 ANSI-Commercial 4wj8s7os-4g8e-3z13-9p32-794ow1oj1x4o 3qu8q7ls-2d0m-2m90-6z59-352us8zs3c7l [facility] [id number] 2.16.840.1.320826.3.227.99.572.22524.0 Family Dependent [id number] [facility] [id number] 2.16.840.1.987130.3.227.99.572.303 39.0 Self [id number] Medicare (Part B) Medicare Primary [id number] 2.16.840.1.004276.3.227.99.572.47340.0 Self 2 [id number] ANSI-Commercial 31k75578-84qi-9ga0-1490-6726yf0638n4 82k98785-87yc-3in4-6362-0254su3381b3 ANSI-Medicare Part B 83745s47-u7jl-4410-o165-352ck3998u6e 25489w87-d2rv-5879-m710-184lc7874q4o ANSI-Commercial a98gj395-61fd-6r34-z8q7-969c2345b193 b65zy610-81fo-5h06-b2e0-589i5822u313 ANSI-Commercial 24a580e7-05pz-8014-67ko-08pe1f938193 78c357y0-31hx-5951-93ac-45gz3l460069 ANSI-Commercial 4j3w58yv-4305-25k7-gd4q-97b2b3tq241h 7c3s69yo-2959-32t1-of4o-77e7h5kb132m ANSI-Commercial 937145u1-i7gt-889b-chq9-5p7677056e69 623351x9-m5xl-751u-nvn9-3h5683160f85 ANSI-Medicare Part B 738gbe3i-8258-5924-8q0b-9d01mg6994wo 471omz6m-5593-7993-4e4p-6m18ha6473mg ANSI-Commercial 24zshl5g-9d0a-0lz7-i8k1-66ck82558lz8 85rgve3a-6w8m-8ji9-r1u7-20vp29053as4 For Life - [facility] Part B [id number] 2.16.840.1.943802.3.227.99.572.76538.0 Family Dependent [id number] [facility] [id number] 2.16.840.1.917044.3.227.99.572.303 39.0 Self [id number] Medicare (Part B) Medicare Primary [id number] 2.16.840.1.335104.3.227.99.572.61177.0 Self 2 [id number] ANSI-Medicare Part B 7839yt8n-3346-1hd4-c80j-o0t6w961wt99 7095ya6j-7916-0fn7-w09e-z5o3x867bj28 ANSI-Commercial 4w438h38-3h18-8158-s35k-em4x8y535m56 3d804z03-5l52-5484-s88d-om1m5t367b56 ANSI-Commercial 2032y2q1-66on-3l96-722a-737253330575 7400h3b9-14ys-1o14-565c-188510249409 ANSI-Commercial 59k1c000-2i82-0865-g0y5-py0ft22dq1rg 20n2w502-1x68-6257-v5j3-ug9nw75lv8ft ANSI-Commercial qje88yp7-328d-981y-d592-9g5138g58977 pjx65wo6-907j-170x-p895-1j0519l15951 ANSI-Medicare Part B 217kq373-508a-397b-1xo9-19u0puhv2483 893zf009-825u-906i-0js1-55q1depk4785 ANSI-Commercial 0e0vv6x0-6198-8p07-t50k-5h826m6s0456 3v2ua8t6-1677-5h03-h78z-6h536w2v1028 ANSI-Commercial 7dw513no-v397-3055-k103-54kz6s21c947 7sr488xq-g082-0006-c981-13jo8k83w737 ANSI-Commercial 4cl11y0w-ium1-8989-f248-i498hkt80m18 9ow48d1o-ubq8-4320-y906-h823fic73b68 ANSI-Medicare Part B 6l1x49w3-168w-79br-s0t5-52o14necu8x0 8z2c08q6-858z-34ir-w4j5-42b35jbft4o3 ANSI-Commercial ndv5rvqk-145a-454c-u011-2680hv15jhv8 czp8uszx-147o-410h-m876-2305lk43vrm9 ANSI-Commercial 13aw95t5-439g-00j0-6657-2ap90zwa5h37 32nu89e1-073m-55e2-8600-0lf03kvi9t19 ANSI-Medicare Part B h2057156-lny5-5331-120j-7rfc3774m112 s1434904-eye9-4466-236c-0ltz8038f281 ANSI-Commercial 469019q2-6u95-3h43-l741-1h70219l2110 345485m5-5u17-1e24-t027-2t30903n2324 ANSI-Commercial ihw802ik-5bw0-74h2-fef9-nfk3714t3r32 uav843vt-1kh8-17y0-qdv1-diy9875z8u83 ANSI-Commercial 74a665x5-vw15-2r27-350g-d2a5wk1x58w3 92c147g8-qj12-4v73-431f-q8l1ye8b79o6 ANSI-Commercial 5f098s5u-czi8-5i77-0x06-9279j005uvs6 7v745z3q-xzl9-1z81-8e30-9296i932wpf3 ANSI-Medicare Part B x57928n2-9656-9167-055j-x0bfp5bs348t l78052z3-6818-1434-468m-k6rkd9ww527t ANSI-Commercial k8d1k0r6-733b-3017-au80-4fioy0g9899w v0l9m0e5-008d-2739-im81-4tiuo5g7132e ANSI-Commercial 6139477r-46d7-6d12-o1f2-u65600c5s6c2 8647055d-78c0-4s13-f8r4-p25113g7l1c5 [employer] Standard [employer] Maintenance 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 (HMO) 11 [id number] .1.749075.3.227.99.8646.8124.0 Family Dependent 1 [id number] i Medigap Part B [id number] ..1.662392.3.227.99.8646.812 4.0 Self [id number] [facility] [id number] 2..1.076466.3.227.99.8646.812 4.0 Self [id number] Medicare [place]/NGS Medicare Primary [id number] 2..1.673962.3.227.99.8646.8124.0 Self 2 [id number] ANSI-Commercial vo22wit2-62y4-8a18-fg8k-yn4t3865h95f xv74ahd8-20u0-6c48-ej0d-wb2t2296b86v ANSI-Commercial e75n8ib1-4r66-0936-365a-rg9g19x0b236 l23p6jk9-4v95-6407-946b-wd2w23v1y055 ANSI-Commercial k748e49c-j543-842p-ls5q-xo8ir08j82f0 b111r49h-b438-064n-vg2k-dj8ag11e58q7 [facility] 4l9jo7p5-68to-4ix4-k629-201w84970860 6k5ec8v5-92xt-9se9-m575-340g98258363 ANSI-Commercial 25j89256-9j0m-0v01-3j97-o64233049z52 90a29618-3m1z-2x05-3b06-a06464636r51 ANSI-Commercial 67mxzke6-w5aw-4125-pn74-zp0q1o5485ss 06vxrdm3-k4dh-0359-lz42-vb2w8j8614mo ANSI-Commercial 519i9142-4cx6-2kq8-2720-0uy3023g6353 841x3793-9cm3-2eb3-2229-3dp8129x9988 [facility] k01sa4a4-io33-9318-z6j2-r5gor3x3gq13 q74fn2v9-jq48-1290-y5e5-m3lyi2n0ib86 ANSI-Commercial 209tolka-9831-0067-944d-cyy7u0cqb76u 739fwiuq-9474-1716-944d-kav8p6rqj45t ANSI-Commercial nov2cb60-7021-7sn4-831v-9oss7rtd5u76 mwa5fs01-4146-3nr4-466e-3fzt8ukf5d30 ANSI-Commercial 6hxp2ml5-79e5-3842-3lf3-0q7l4142lt29 6dts3fe6-94q5-3375-9rb3-3n8o4066ih26 ANSI-Medicare Part B go1q3399-5jk8-27f1-v91o-ie899yp6y08i ht0g2432-7bi6-23a7-d19b-id064nm6z36a ANSI-Commercial 8qk8845u-368n-7097-llv1-vb1269ex34jk 5kh4158r-348m-3473-ksv6-aa1405lh47ku ANSI-Commercial 1g98ys6s-136e-83x7-cm92-6167447e052c 8e01gk4m-417m-74j9-th74-4413420s773b ANSI-Commercial 43447934-j29u-0634-c157-76m542mg44aw 26914968-a21z-3662-y412-68m560qu71zr ANSI-Medicare Part B 7qu857lw-349g-4136-hx89-6iqt8669073p 0dh858pb-875y-0929-tt01-6vvr2805199n ANSI-Commercial b40fj5au-a6n3-86y3-1c87-497b277s68y2 s22jb8de-f0g3-95p6-6q42-152l421g37w2 ANSI-Commercial 2233p129-s85u-0293-522t-39ef7bw4366s 5255a851-u25x-3365-412s-02sx8ld9541m ANSI-Medicare Part B 871q82a7-04bm-2o14-6m45-86neu1v834r4 510c56n2-32je-1r91-1l59-17hig8r275r1 ANSI-Commercial nxt50g7t-b5xp-7t84-1u0m-83g3ra052z91 jzb04s1l-p3ro-9o60-1n4h-65a3av830p07 For Life - S [facility] Part B [id number] 2.16.840.1.442863.3.227.99.572.83180.0 Family Dependent 1 [id number] r [facility] Part B [id number] 2.16.840.1.364271.3.227.99.572.303 39.0 Self [id number] Medicare (Part B) Medicare Primary [id number] 2.16.840.1.151456.3.227.99.572.60953.0 Self 2 [id number] ANSI-Commercial 3a84c545-b7b0-0477-4egv-hg64ozzi9156 6x82p286-v7m2-6827-7nff-pk67eylm5933 ANSI-Medicare Part B s4lf025v-176m-67u1-nufe-rx13776c3ed4 d0zl350x-001t-64o7-wjvq-cn29119j8vr5 ANSI-Commercial 2rrh4yi1-7041-36u2-q845-1127y7m41v93 7bkc6jx0-1684-94h4-p633-3065h4s10e35 ANSI-Commercial 91n713w1-7rz1-10r3-k412-1163942qj9ap 85v015q7-5yk0-18l4-y851-8547757qz8qg [employer] [facility] [id number] S [id number] MEDICARE - [place] [id number] S [id number] ANSI-Commercial 3u22491y-9753-7kh4-5yb1-9m129wv3s910 5q95552u-3965-7xt4-5hq6-6z789sy4g109 ANSI-Medicare Part B s7167z59-5v99-110m-7l86-gr0l90718b9z d1375z07-9k14-963k-2h25-kd0r23713p9h ANSI-Commercial v03s71q0-76np-1tyt-z9t4-8svg27nil8lw i20f99q1-44kh-4psq-u6v2-6paw92kgl1mt ANSI-Commercial v873h735-f806-59so-bjfd-09236y0pb492 z854z507-i430-12id-gvql-27941q0xn996 FOR LIFE [id number] [facility] [facility] [id number] MEDICARE [id number] A ANSI-Commercial [id number]-[id number] ANSI-Medicare Part B [id number] ANSI-Commercial [id number]-8yc2-585e-l1x1-[id number] [id number]-2co4-491z-r6h6-l2an6317859z ANSI-Commercial [id number]-sxqq-0k2x-ylq8-i3g84z7u4u70 5a5619x3-ajdb-2n0x-sas5-j7l83j5e9j12 ANSI-Commercial [id number]-i139-585n5bwsgd1k [id number]-d652-139e6rxcbl7n ANSI-Medicare Part B [id number]-[id number] ANSI-Commercial 1m41p64c-581j-4642-ql55-7b42elg3s16k 8f54e08o-229h-9612-jy19-5t62gkc2v23l ANSI-Commercial 626qti19-yke3-365u-[id number]-fay2-571i-[id number] For Life - WPS Medigap Part B [id number] 2.16.840.1.307934.3.227.99.572.60274.0 Family Dependent 1 [id number] [facility] Medigap Part B [id number] 2.16.840.1.584853.3.227.99.572.303 39.0 Self [id number] Medicare (Part B) Medicare Primary [id number] 2.16.840.1.919728.3.227.99.572.99095.0 Self 2 [id number] For Life - WPS [facility] Part B [id number] 2.16.840.1.581480.3.227.99.572.40869.0 Family Dependent 1 [id number] r [facility] Part B [id number] 2.16.840.1.312944.3.227.99.572.303 39.0 Self [id number] Medicare (Part B) Medicare Primary [id number] 2.16.840.1.202906.3.227.99.572.17614.0 Self 2 [id number] ANSI-Commercial [id number] hpy036jz-3w44-57mg-7z50-[id number] ANSI-Commercial [id number]-[id number] [id number]-g0j2-31y9ass7uz77 ANSI-Medicare Part B [id number] ANSI-Commercial 57wne5e9-1x99-5fv0-[id number]-[id number] ANSI-Medicare Part B [id number]-vj2v-[id number] ANSI-Commercial [id number]-04j1-264d-42t4-v3g15g5j17nz [id number]-89n8-844b-05w2-d8d36y2o90el ANSI-Commercial [id number]-q600-6do2vjd84y3g [id number]-n120-4xn2tvh85s6u ANSI-Commercial 3956w965-y7c8-9y63-u497-xw49g3qa2t21 [id number]-h3g6-1w45-u638-ox87d7mz3k34 For Life - WPS [facility] Part B [id number] 2.0.1.739420.3.227.99.572.43350.0 Family Dependent [id number] [facility] [facility] [id number] 2.0.1.176105.3.227.99.572.303 39.0 Self [id number] Medicare (Part B) Medicare Primary [id number] 2.0.1.709054.3.227.99.572.72961.0 Self 1 [id number] POM[facility] [id number] SP [id number] [facility] PPO O [id number] S [id number] MEDICARE C [id number] S [id number] A [facility] - PHYSICIAN [id number] 01 [id number] [facility] -PHYSICIAN [id number] 1 [id number] MEDICARE PART A -O [id number] 18 [id number] [facility] -O [id number] 18 [id number] MEDICARE PART A -I/P [id number] 18 [id number] [place] - I/P [id number] 01 [id number] [facility]OM[facility] -O/P [id number] 18 [id number] N [facility] [id number] 01 [id number] For Life - WPS Medigap Part B [id number] 2.0.1.191568.3.227.99.572.40865.0 Family Dependent 1 [id number] Medicare (Part B) Medicare Primary [id number] 2.0.1.914296.3.227.99.572.81049.0 Self 1 [id number] [facility] PHCS Ppo Medigap Part B [id number] 2.16.840.1.195324.3.227. 99.572.77106.0 Self [id number] For Life - WPS Medigap Part B [id number] 2.16.840.1.510323.3.227.99.572.19545.0 Family Dependent 1 [id number] Medicare (Part B) Medicare Primary [id number] 2.16.840.1.207404.3.227.99.572.89939.0 Self [id number] [facility] Standard Health Maintenance 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 (HMO) 11 [id number] 2.16.840.1.863901.3.227.99.8646.8124.0 Family Dependent 1 [id number] G[place] Medigap Part B [id number] 2.16.840.1.794039.3.227.99.8646.812 4.0 Self [id number] [facility] Medigap Part B [id number] 2.16.840.1.739521.3.227.99.8646.812 4.0 Self [id number] [place] Medicare Primary [id number] 2.16.840.1.461983.3.227.99.8646.8124.0 Self 1 [id number] For Life - WPS Medigap Part B [id number] 2.16.840.1.048852.3.227.99.572.30783.0 Family Dependent 1 [id number] Medicare (Part B) Medicare Primary [id number] 2.16.840.1.630700.3.227.99.572.98553.0 Self 1 [id number] For Life - WPS Medigap Part B [id number] 2.16.840.1.375916.3.227.99.572.73563.0 Family Dependent 1 [id number] Medicare (Part B) Medicare Primary [id number] 2.16.840.1.093653.3.227.99.572.66034.0 Self 1 [id number] POMCO [id number] SP [id number] MEDICARE [id number] SP [id number] A Medicare (Part B) Medicare Primary [id number] Self For Life - WPS Medigap Part B [id number] Family Depen dent [facility] Medigap Part B [id number] Self Medicare Medicare Primary [id number] Self [facility] [place] [id number] HU2 [id number] HEALTHNET/ AD O [id number] P [id number] [facility] [place] O [id number] S [id number] HEALTHNET O [id number] U 1 [id number] [facility] O [id number] S [id number] MEDICARE OUTPATIENT M [id number] S [id number] HEALTHNET O [id number] U [id number] MEDICARE [id number] SP [id number] [id number] UMR [facility] [id number] SP [id number] FOR LIFE [id number] HU2 [id number] [facility] [id number] 0 [id number] UMR [id number] 0 [id number] Medicare Part B [facility] [id number] 0 [id number] UMR [facility] [id number] SP [id number] FOR LIFE UNAVAILABLE 01 U NAVAILABLE [facility] MEDICARE PART A MS [id number] 18 [id number] UMR [place] [id number] 18 [id number] MEDICARE PART A -O/P [id number] 18 [id number] UMR -O/P [id number] 18 [id number] [facility] - O/P [id number] 01 [id number] MEDICARE [id number] SP [id number] MEDICARE [id number] SP [id number] UMR O [id number] S [id number] MEDICARE C [id number] S [id number] FOR LIFE O [id number] S [id number] MEDICARE PART A -O/P [id number] 18 [id number] [employer] [place] Other 0 [id number] Self 0 Medicare Part B [facility] Other 0 [id number] Self 0 ANSI-Commercial [id number] ANSI-Commercial [id number]-6225-[id number]-7073-[id number]-[id number] ANSI-Commercial [id number]-[id number]-mm51-[id number] [id number]-u520-07lp-uc66-iv01ufd1m0w0 ANSI-Medicare Part B [id number] ANSI-Commercial 20667hvj-c87e-1mm8-q70y-281mz5yfro1e [id number]-y27h-2ox3-a44k-231kv7ieto9z ANSI-Commercial [id number]-[id number] ANSI-Medicare Part B [id number] ANSI-Commercial [id number]-f730-30qr-[id number] [id number]-z553-26kx-[id number] ANSI-Commercial [id number]-[id number] [id number]-[id number] ANSI-Commercial [id number]-[id number]-[id number] ANSI-Medicare Part B [id number] ANSI-Commercial [id number]-[id number]-[id number]-[id number]-[id number] ANSI-Commercial u8a9h79s-u5o5-157o-[id number] [id number]-u1k1-940a-[id number] ANSI-Commercial [id number]-[id number] [id number]-fl47-897em0po970z ANSI-Commercial [id number] [id number]-1g24-4ie3-4hqu71i52i6t ANSI-Medicare Part B [id number] For Life - WPS Medigap Part B [id number] MRN.[id number].[id number]-q2344naf1sll Family Dependent [id number] Umr Medigap Part B [id number] MRN.572.[id number]- x4903ydj0rpz Self [id number] Medicare (Part B) Medicare Primary [id number] MRN.572.[id number] Self [id number] [facility] PHCS Ppo Medigap Part B [id number] MRN.572.[id number]-[id number] Self [id number] ANSI-Commercial [id number]-[id number]-[id number]-[id number] Problems, Conditions, and Diagnoses Code Display Name Description Problem Type Effective Dates Data Source(s) I12.9 Hypertensive chronic kidney disease with stage 1 through stage 4 chronic kidney disease, or unspecified chronic kidney disease HYPERTENSIVE CHRONIC KIDNEY DISEASE W STG 1-4/UNSP Diagnosis 08/02/2021 11:33:00 AM EDT [facility] R80.9 Proteinuria, unspecified PROTEINURIA, UNSPECIFIED Diag nosis 08/02/2021 11:33:00 AM [facility] E83.52 Hypercalcemia HYPERCALCEMIA Diagnosis 08/02/2021 11:33:00 AM [facility] N18.30 CHRONIC KIDNEY DISEASE, STAGE 3 UNSPECIF CHRONIC KIDNEY DISEASE, STAGE 3 UNSPECIF Diagnosis 08/02/2021 11:33:[facility] N18.32 CHRONIC KIDNEY DISEASE, STAGE 3B CHRONIC KIDNEY DISEASE, STAGE 3B Diagnosis 08/02/2021 11:33:00 AM [facility] R109 Unspecified abdominal pain Unspecified abdominal pain Diagnosis 05/31/2021 03:28:00 PM [facility] 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 Co mplications of stem cell transplant Diagnosis 05/16/2021 10:55:00 AM [facility] [id number] Ztgiz-hobfrs-bjdf disease, unspecified G xtww-nycmnb-ouqe disease, unspecified Diagnosis 05/04/2021 01:00:00 PM [facility] D471 Chronic myeloproliferative disease Chronic myelo proliferative disease Diagnosis 05/04/2021 01:00:00 PM [facility] 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 Diagnosis 04/05/2021 01:18:00 PM [facility] Z9481 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 Diagnosis 10/05/2020 12:00:00 PM [facility] D7581 Myelofibrosis Myelofibrosis Diagnosis 10/05/2020 12:00:00 PM [facility] [id number] Essential hypertension Essential hypertension Problem 05/31/2021 12:00:00 AM EDT [facility] ([facility]) R13.10 [id number] Dysphagia, unspecified type Problem 05/04/20 12:00:00 AM EDT eCW1 ([facility]) F43.22 [id number] Adjustment disorder with anxiety Problem 03/26/2021 12:00:00 AM EDT eCW1 ([facility]) E27.40 [id number] Adrenal insufficiency Problem 02/18/2021 12: 00:00 AM EDT eCW1 ([facility]) R94.31 Electrocardiogram abnormal Electrocardiogram abnormal Problem 02/10/2021 12:00:00 AM EDT [facility] ([facility]) E83.52 [id number] Hypercalcemia Problem 02/04/2021 12:00:00 AM EDT eCW1 ([facility]) I15.0 [id number] Renovascular hypertension Problem 01/19/2021 12:00:00 AM EDT eCW1 ([facility]) F33.0 [id number] 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 Problem 01/19/2021 12:00:00 AM EDT eCW1 ([facility]) F43.23 [id number] Adjustment disorder with mixed a nxiety and depressed mood Problem 11/17/2020 12:00:00 AM EST eCW1 ([facility]) Surgeries/Procedures Procedure Description Date Indications Data Source(s) ECG ROUTINE ECG W/LEAST 12 LDS W/I&R 02/10/2021 12:00: 00 AM [facility] Results ID Date Data Source [id number] 08/25/2021 01:45:00 PM EDT [facility] Name Value Range Interpretation Code Description Data Aminta rce(s) Supporting Document(s) First Visit [facility] KENMAd8mJuEQHrBxHGUqIpoYRBplCCblFESlQ0L0VQloMi8XUIgrnsDrIYSpRz7+WPRqBU0xtl1cWFSc gMy [file] NF4KowqVJ9VoLJsF+aREi03UiuDYub7QQx3cqInrIN1psXp2YLvu+FILM SORTER/Nhb5pBFjImKwZfw7QD2skoA iz9HOc/8iPpKTkW9liqqoOLY5RPQRdQplSZgUi62ww 27F9eynAB6xiR0sQVrGmqfh9iWAbrdRyGKMo6nTx0F30xDTaDVkVrEy9E/Aq3I/uKbJ8y0CMxxenc9zE dP2ey2itcqlvdVh0bDQvl9QV9jGE/l4WQu+IQ2EF3JzdBxFN3iCS1UX7Ypf/x6f7T7ZBWHMo+CFXlMP5 w/zWXliC8epNmLNLRTkg3D9i7TJNY0KKNcG5XpjF99 GR1KTQSIHdwP0h60tZWpNaMuy5mNteLOD46quvOdav9u2XtlLxgMTuNr4B5Nmhb3fefTG9cl2WlVW1F/ QPMb38Td+msyfhzUknpJGyC1TWMV9eaoeopZg80TUYXfWjtYSiplJO/qP6wnui1EBEAVo5TAvK4k3WPK hPwvr1A65UugKk/XRpwxG33fFB0keHxg7gEyDzaaxK Cuv9QciN6OZbHMAHZ0w0WeEOefAgZDcuhLX2xPHYIqHD8Hb3NZ2JV63wsNg5fN+cSr5tUtdpSZuXlfkO fk5cffXA9qn7nzWaZ00Hb4KvFHnBpqzkip9ZvaJty4x0/Lindsay/Ntl9l7ryIBinKHE+GfImI9MFXXW6h9U [file] Compressed Gas Plant Worker+4AhiL0lgnsld9xv8fJXvHZ0kAAZWxv2dBbG5Y+jWyBIxHnLfLqB/363HyVZ23QMsAQKlGSKSZhjD+ [file] NSOoG8uyaFFiEX4+U+Fno3rP/kpqNe/HxnQfjQ+artificial fly tier A85qbcgD5jUXLbOwCIQDBUctljLeiQXnHUR26M6HDXEp6dbTyuHj6N80Ea5bvZh3QhrJ5nScz+fh5nBN qSw1wcCvBR+pQ9/ZXCZ1ascLnW0/8RugYJDoM3OYD6bO1a7SqtFFaauZJPg2rwVnjzPx89fGxQKh43mY VzfH0bPu75I0XX89twDy1+X6ffTrB4wp7sUZpNGBf/ 6VkxyEqZb7zckj6IyAaNkXC2zpj5Qrj/kTc5KlTQGimIsALt4+YQum1QN8vPFvoYzC54/FRblGUXkL8k 6FvN6o87lcEkz6m2k7/52of6soA2MNZPdlx76wwHKCVo+XYy0Psd5yqqLyfqGDOeeGCS8XIzU/ANYr+x v8ScHSi/8wY6vW6duRJZJGd/UbmmOuVUQbirqN+LZf eeqSmQc/QqI75pMouzWlCkFRcQJFM4jafqTDczmOhtFA9uDZfD0CjoxYlmffHON2Gp+/Wlgsm/gsd/ZI sOl8l11MTxTPVtxXRrdOoUIDRint0g433AzC6qCOO9K6cvaBG1f6hOv0mDkSF0eiRN7gEK+9Y4/WV2KT iQo5V4r24G0v9y6hmEFF74lvrs7n9vJB0mzz3V57WQ [file] SHOSHONE-BANNOCK+ZH9novEHEor+1y8JT6y35Zq9d7+3lL691Ogkml yy7+/NSahdBHJf63bZM9hDYPbbEl8/0zQO88FhSsANGA/8L3z1zb+bXC1qg12l5ExiGnj9RoMSdFEV9o 5xRUPkjddggBnhyGJGpdJdg2KqWiTKqjZ7FX4JGPYfKQWcnVnd46v5erv59Lc+ikjIlGkZGXQ05RMRy+ ym5S63mITi5Acv1s7gfWezyUmXrxCSG3ZTJSnml52e 5UwcyL28wvlNhpo7CROp5R2RZ2rB8xh9w4d6YfOcvYRvslHHnRCdN0O7LNnuZAjjk5SPC+eRkzQmyUI/ Ls8QOvftgnbnFE6pfc/jeZCPvaA9gqqkgDsUHMGkQncU9/DqGQdn0Dpl8fh63ZMZityStMvzXkZbLUjg +62X8tl8ILpDNvFDjnoaxjK6xCZ1/pJAWurQxiqw/H KeU7bQRZnaDTzQDYuDsJ75/osrpkm3zrhZogSbud+ncHZu1FbkScDshUiw5dSDvXHdj8gRVEBti+FQ5e 291JoVUBuow4JOPX+vJ9k+IcKSnmPQhphQDDflqRfLe+at7P+RgMqEtErPde11lIKAkHSNCZnlpAuRbQ 0FDc/MOLLY/0ff9v4MxxWGtTRp1hsIz79WWyMr4L6z5a [file] 89Oaq5BrVolKi5I7++3goOOE/vlkb0Icd9lBwy/ToLBx14fHNO/aegis console operator track+vcbRs6ttGdiqbiMkP2X8xxKOWw [file] Drywall Application Supervisor+VVChJ8/lRCLEw2b3zvjRLu9/gv5L+O1hn83QW6IXEjlJjhUfzpYKywaPu6ZU8szZHqnfCvh7xm2S [file] bt39h2li6CcrSP3GfCJzQ8HzAur+IKNZizfopSmAxs+/icu8FuTa/recruitment internship++xHriWi6/w8rCfvxZBc8eklJ [file] uMSN6UVe+strategic planning manager/Fo73TFgkIF4HjBjjcevvBa86q8KoNdBESye0JVzxb2HQApi25s+edXBrJHjzlTO5v+G [file] stacker tender+uhcVAeRh6FVc2tYfZM8fcmUH9Ug8eC4zBa7i+wT/Mc+jf+bVyHrjLNcBhwUj360qMneTRK9iRvyGy jnpovBucHA/GnLM3bMk0leMNAdi6ra0+7U9+3Iq1Cs VU1olA2JcnZHHANXkRlDF5kIPZjIwbYeJviy6cGzgiWnkbdUDOJppFPzby0HjyoH3ZjkjDwnIP9dzjgq EsD13CZZ0pdlsYr0IZScRuuKsnofwNdclHS9hiuB6RIXKdk+fdj1lwAgLYrEw+sYJJwEppgqJq/q4Lrt itvYwTGemXib1w2PLtx719rDu0yyQKOJI836Pwf/BU qwfpuNIiVR3QdOMCynM+EeeW8TiQEfitvQafoYgb+uUURmghHPXXZm67r5Cyo5MtS823ncIzGhrxrnND kt8Op77rI3G0KA+Dante+WNNtxX/+w+yG631n/axg9tUSZuNGv713psrscBEEmrv1Jjwb33ua+jyJ4VOoi [file] Ef0kwE7OjO18QH7xFYnsutwwP3ni6nL0ySDtPlH8ZicT//Miguel Angel+4Az5n5QSnaGXUINMFZO4gHIGxZBI/D [file] bKMO5tDMRwgbmsfsI2In/ballast cleaning machine operator+XYcKe/kMUjeyy0kEe [file] jE0pZYTQrZA+7004SUVSM/recruitment director+VydHfjUqpU/f1fh+ [file] DIORAMA MODEL MAKER/nwnGnPumn6TdDb++g4AcSxI1S9wdPMR/bmw+zKH [file] Will+ZQIaVRk6ZMvJ3YZBubBXT2thBYPPIjeZN9+zVgX8EGG9vv4GrZEXzACmtrjIyUsfJEMoozLByeCcn ANKOHtm4JlL2WC3FUWCSZ7Z= ID Date Data Source [id number] 08/02/2021 12:17:00 PM EDT [facility] FAX [phone] Name Value Range Interpretation Code Description Data Aminta rce(s) Supporting Document(s) GLUCOSE 169 mg/dL 74-106 H [facility] BLOOD UREA NITROGEN 61 mg/dL 7-18 H [facility] ital CREATININE 2.48 mg/dL 0.6-1.0 H [facility] SODIUM 143 mmol/L 136-145 [facility] POTASSIUM 3.9 mmol/L 3.5-5.1 [facility] CHLORIDE 105 mmol/L 98-107 [facility] CO2 26 mmol/L 21-32 [facility] CALCIUM 9.9 mg/dL 8.5-10.1 [facility] GLOMERULAR FILTRATION RATE 20 mL/min [facility] GFR IS CALCULATED IN mL/min/1.73m2 STAS L FUNCTION: >90MILDLY DECREASED: 60-89MILDY TO MODERATELY DECREASED: 45-59 MODERATELY TO SEVERELY DECREASED: 30-44SEVERELY DECREASED: 15-29RENAL FAILURE: <15 ALBUMIN 3.5 gm/dL 3.4-5.0 [facility] PHOSPHOROUS 4.1 mg/dL 2.5-4.9 [facility] ID Date Data Source [id number] 05/21/2021 06:57:00 AM EDT [facility] Name Value Range Interpretation Code Description Data Aminta rce(s) Supporting Document(s) Tacrolimus [Mass/volume] in Blood by LC/MS/MS 3.5 ng/mL 2.0-20.0 [facility] Trough (immediate ly following transplant) 15.0 Trough (steady state, 2 weeks or more after transplant): 3.0 - 8.0 Detection Limit = 1.0 Performed by LC-MS/MS technology. This test was developed and its performance characteristics determined by [employer]. It has not been cleared or approved by the Food and Drug Administration. ID Date Data Source [id number] 05/16/2021 12:04:00 PM EDT [facility] Name Value Range Interpretation Code Description Data Aminta rce(s) Supporting Document(s) CBC W/AUTOMATED DIFF [facility] COMPLETE BLOOD COUNT Leukocytes [#/volume] in Blood by Automated count 5.3 10^3/uL 4.2 - 1 1.0 [facility] Erythrocytes [#/volume] in Blood by Automated count 3.52 10^6/uL 4. 20 - 5.40 L [facility] Hemoglobin [Mass/volume] in Blood 12.4 g/dL 12.0 - 16.0 [facility] Hematocrit [Volume Fraction] of Blood by Automated count 36.3 % 3 7.0 - 47.0 L [facility] Erythrocyte mean corpuscular volume [Entitic volume] b y Automated count 103.1 fL 81.0 - 101 H [facility] Erythrocyte mean corpuscular hemoglobin [Entitic mass] by Automated count 35.2 pg 27.0 - 34.0 H [facility] Erythrocyte mean corpuscular hemoglobin concentration [Mass/volume] by Automated count 34.2 g/dL 31.0 - 36.0 [facility] Erythrocyte distribution width [Ratio] by Automated count 14.0 % 11.5 - 14.5 [facility] Platelets [#/volume] in Blood by Automated count 161 10^3/uL 150 - 45 0 [facility] Platelet mean volume [Entitic volume] in Blood by Automated count 10.7 fL 7.4 - 10.4 H [facility] Neutrophils/100 leukocytes in Blood by Automated count 52.5 % 37. 0 - 80.0 [facility] Lymphocytes/100 leukocytes in Blood by Manual count 33.2 % 25.0 - 40.0 [facility] Monocytes/100 leukocytes in Blood by Automated count 11.6 % 3.0 - 8.0 H [facility] Eosinophils/100 leukocytes in Blood by Automated count 1.9 % 0.0 - 7.0 [facility] Basophils/100 leukocytes in Blood by Automated count 0.4 % 0.0 - 2.5 [facility] %IG 0.4 % 0.0 - 0.0 H [facility] al %NRBC 0.0 % 0.0 - 0.0 [facility] Neutrophils [#/volume] in Blood by Automated count 2.77 10^3/uL 2.00 - 6.90 [facility] Lymphocytes [#/volume] in Blood by Automated count 1.75 10^3/uL 0.60 - 3.40 [facility] Monocytes [#/volume] in Blood by Automated count 0.61 10^3/uL 0.00 - 0.90 [facility] Eosinophils [#/volume] in Blood by Automated count 0.10 10^3/uL 0.00 - 0.70 [facility] Basophils [#/volume] in Blood by Automated count 0.02 10^3/uL 0.00 - 0.20 [facility] #IG 0.02 10^3/uL 0.00 - 0.10 [facility] #NRBC 0.00 10^3/uL 0.00 - 0.00 [facility] MANUAL DIFF NOT INDICATED [facility] RBC MORPH NOT INDICATED [facility] sp[facility] ID Date Data Source [id number] 05/16/2021 12:04:00 PM EDT [facility] Name Value Range Interpretation Code Description Data Aminta rce(s) Supporting Document(s) Lactate dehydrogenase [Enzymatic activity/volume] in Serum o r Plasma 305 U/L 135 - 214 H [facility] ID Date Data Source [id number] 05/16/2021 12:04:00 PM EDT [facility] Name Value Range Interpretation Code Description Data Aminta rce(s) Supporting Document(s) COMPREHENSIVE METABOLIC PANEL [facility] COMPREHENSIVE METABOLIC PANEL Sodium [Moles/volume] in Serum or Plasma 141 mEq/L 134 - 153 [facility] Potassium [Moles/volume] in Serum or Plasma 4.0 mEq/L 3.6 - 5.0 [facility] Chloride [Moles/volume] in Serum or Plasma 102 mEq/L 98 - 107 [facility] Carbon dioxide, total [Moles/volume] in Serum or Plasma 26 MEQ/L 22 - 30 [facility] Glucose [Mass/volume] in Serum or Plasma 280 MG/DL 70 - 99 H [facility] BUN 45 MG/DL 7 - [facility] Creat[facility] [Mass/volume] in Serum or Plasma 2.0 MG/DL 0.7 - 1.5 H [facility] BUN/CREAT 23 8 - 27 [facility] al Protein [Mass/volume] in Serum or Plasma 5.9 G/DL 6.3 - 8.2 L [facility] Albumin [Mass/volume] in Serum or Plasma 4.1 G/DL 3.9 - 5.0 [facility] Globulin [Mass/volume] in Serum by calculation 1.8 GM/DL 2.4 - 3.2 L [facility] A/G RATIO 2.3 0.8 - 2.0 H [facility] Calcium [Mass/volume] in Serum or Plasma 10.1 MG/DL 8.4 - 10.2 [facility] Bilirubin.total [Mass/volume] in Serum or Plasma <0.7 MG/DL 0.2 - 1.3 [facility] Alkaline phosphatase [Enzymatic activity/volume] in Serum or Plasma 83 U/L 38 - 126 [facility] Aspartate aminotransferase [Enzymatic activity/volume] in Serum or Plasma 24 U/L 5 - 40 [facility] Alanine aminotransferase [Enzymatic activity/volume] in Seru m or Plasma 46 U/L 7 - 56 [facility] Anion gap 3 in Serum or Plasma 13.0 mmol/L 8.0 - 16.0 [facility] AGE 66 yrs [facility] NON-AA GFR 27 mL/min [facility] A[facility] AMER GFR >60 [facility] Male GFR In terprentation 20-49 [...] >32 mL/min Normal ID Date Data Source [id number] 05/16/2021 12:03:00 PM EDT [facility] Name Value Range Interpretation Code Description Data Aminta rce(s) Supporting Document(s) Magnesium [Mass/volume] in Serum or Plasma 2.1 MG/DL 1.7 - 2.2 [facility] ID Date Data Source [id number] 05/08/2021 05:02:00 PM EDT [facility] Name Value Range Interpretation Code Description Data Aminta rce(s) Supporting Document(s) Tacrolimus [Mass/volume] in Blood by LC/MS/MS 3.2 ng/mL 2.0-20.0 [facility] Trough (immediate ly following transplant) 15.0 Trough (steady state, 2 weeks or more after transplant): 3.0 - 8.0 Detection Limit = 1.0 Performed by LC-MS/MS technology. This test was developed and its performance characteristics determined by [facility]. It has not been cleared or approved by the Food and Drug Administration. ID Date Data Source [id number] 05/04/2021 03:09:00 PM EDT [facility] Name Value Range Interpretation Code Description Data Aminta rce(s) Supporting Document(s) CVE PANEL [facility] LIPID PANEL Cholesterol [Mass/volume] in Serum or Plasma 231 MG/DL 131 - 200 H [facility] Deprecated Triglyceride [Mass/volume] in Serum or Plasma 341 MG/DL 3 5 - 160 H [facility] HDL 62 MG/DL 29 - 86 [facility] Cholesterol in LDL [Mass/volume] in Serum or Plasma by Direc t assay 133 mg/dL 65 - 175 [facility] Cholesterol.total/Cholesterol in HDL [Mass Ratio] in Serum o r Plasma 3.7 3.2 - 4.4 [facility] LDL/HDL 2.15 1.47 - 3.22 [facility] CVE RISK CHOL/HDL LDL/HDLMEN: 1/2 AVERAGE 3.43 1.00 AVERAGE 4.97 3.55 2X AVERAGE 9.55 6.25 3X AVERAGE 23.99 7.99WOMEN: 1/2 AVERAGE 3.27 1.47 AVERAGE 4.44 3.22 2X AVERAGE 7.05 5.03 3X AVERAGE 11.04 6.14 ID Date Data Source [id number] 05/04/2021 03:08:00 PM EDT [facility] Name Value Range Interpretation Code Description Data Aminta rce(s) Supporting Document(s) Magnesium [Mass/volume] in Serum or Plasma 2.6 MG/DL 1.7 - 2.2 H [facility] ID Date Data Source [id number] 05/04/2021 03:08:00 PM EDT [facility] Name Value Range Interpretation Code Description Data Aminta rce(s) Supporting Document(s) COMPREHENSIVE METABOLIC PANEL [facility] COMPREHENSIVE METABOLIC PANEL Sodium [Moles/volume] in Serum or Plasma 140 mEq/L 134 - 153 [facility] Potassium [Moles/volume] in Serum or Plasma 4.0 mEq/L 3.6 - 5.0 [facility] Chloride [Moles/volume] in Serum or Plasma 100 mEq/L 98 - 107 [facility] Carbon dioxide, total [Moles/volume] in Serum or Plasma 27 MEQ/L 22 - 30 [facility] Glucose [Mass/volume] in Serum or Plasma 161 MG/DL 70 - 99 H [facility] BUN 53 MG/DL 7 - 21 H [facility] al Creatinine [Mass/volume] in Serum or Plasma 2.5 MG/DL 0.7 - 1.5 H [facility] BUN/CREAT 21 8 - 27 [facility] Protein [Mass/volume] in Serum or Plasma 5.9 G/DL 6.3 - 8.2 L [facility] Albumin [Mass/volume] in Serum or Plasma 3.9 G/DL 3.9 - 5.0 [facility] Globulin [Mass/volume] in Serum by calculation 2.0 GM/DL 2.4 - 3.2 L [facility] A/G RATIO 2.0 0.8 - 2.0 [facility] Calcium [Mass/volume] in Serum or Plasma 10.5 MG/DL 8.4 - 10.2 H [facility] Bilirubin.total [Mass/volume] in Serum or Plasma <0.7 MG/DL 0.2 - 1.3 [facility] Alkaline phosphatase [Enzymatic activity/volume] in Serum or Plasma 68 U/L 38 - 126 [facility] Aspartate aminotransferase [Enzymatic activity/volume] in Serum or Plasma 31 U/L 5 - 40 [facility] Alanine aminotransferase [Enzymatic activity/volume] in Seru m or Plasma 51 U/L 7 - 56 [facility] Anion gap 3 in Serum or Plasma 13.0 mmol/L 8.0 - 16.0 [facility] 66 [facility] AMER GFR >60 [facility] Male GFR In terprentation 20-49 [...] >32 mL/min Normal ID Date Data Source [id number] 05/04/2021 02:45:00 PM EDT [facility] Name Value Range Interpretation Code Description Data Aminta rce(s) Supporting Document(s) CBC W/AUTOMATED DIFF [facility] COMPLETE BLOOD COUNT Leukocytes [#/volume] in Blood by Automated count 5.9 10^3/uL 4.2 - 1 1.0 [facility] Erythrocytes [#/volume] in Blood by Automated count 3.53 10^6/uL 4. 20 - 5.40 L [facility] Hemoglobin [Mass/volume] in Blood 12.5 g/dL 12.0 - 16.0 [facility] Hematocrit [Volume Fraction] of Blood by Automated count 36.6 % 3 7.0 - 47.0 L [facility] Erythrocyte mean corpuscular volume [Entitic volume] b y Automated count 103.7 fL 81.0 - 101 H [facility] Erythrocyte mean corpuscular hemoglobin [Entitic mass] by Automated count 35.4 pg 27.0 - 34.0 H [facility] Erythrocyte mean corpuscular hemoglobin concentration [Mass/volume] by Automated count 34.2 g/dL 31.0 - 36.0 [facility] Erythrocyte distribution width [Ratio] by Automated count 14.0 % 11.5 - 14.5 [facility] Platelets [#/volume] in Blood by Automated count 130 10^3/uL 150 - 45 0 L [facility] Platelet mean volume [Entitic volume] in Blood by Automated count 11.2 fL 7.4 - 10.4 H [facility] Neutrophils/100 leukocytes in Blood by Automated count 58.0 % 37. 0 - 80.0 [facility] Lymphocytes/100 leukocytes in Blood by Manual count 28.9 % 25.0 - 40.0 [facility] Monocytes/100 leukocytes in Blood by Automated count 10.9 % 3.0 - 8.0 H [facility] Eosinophils/100 leukocytes in Blood by Automated count 1.4 % 0.0 - 7.0 [facility] Basophils/100 leukocytes in Blood by Automated count 0.3 % 0.0 - 2.5 [facility] %IG 0.5 % 0.0 - 0.0 H [facility] %NRBC 0.0 % 0.0 - 0.0 [facility] al Neutrophils [#/volume] in Blood by Automated count 3.42 10^3/uL 2.00 - 6.90 [facility] Lymphocytes [#/volume] in Blood by Automated count 1.70 10^3/uL 0.60 - 3.40 [facility] Monocytes [#/volume] in Blood by Automated count 0.64 10^3/uL 0.00 - 0.90 [facility] Eosinophils [#/volume] in Blood by Automated count 0.08 10^3/uL 0.00 - 0.70 [facility] Basophils [#/volume] in Blood by Automated count 0.02 10^3/uL 0.00 - 0.20 [facility] #IG 0.03 10^3/uL 0.00 - 0.10 [facility] #NRBC 0.00 10^3/uL 0.00 - 0.00 [facility] MANUAL DIFF NOT INDICATED [facility] RBC MORPH NOT INDICATED [facility] ID Date Data Source [id number] 04/06/2021 09:34:46 AM EDT [facility] Name Value Range Interpretation Code Description Data Aminta rce(s) Supporting Document(s) Tacrolimus [Mass/volume] in Blood 2.3 ng/mL [facility] Renal Transplant Target ValuesImmediate post-transplant: 10 - 15 ng/mL First 6 months: 6 - 15 ng/mL Greater than 6 months: 6 - 15 ng/mL ID Date Data Source Ionized Calcium 02/18/2021 12:00:00 AM EDT [facility] ([facility]) Name Value Range Interpretation Code Description Data Aminta rce(s) Supporting Document(s) 4.9 4.5-5.3 IONIZED CALCIUM eCW1 ([facility]) ID Date Data Source [id number] 01/30/2021 04:05:00 PM EDT [facility] ([facility]) Name Value Range Interpretation Code Description Data Aminta rce(s) Supporting Document(s) Troponin Laboratory test result [facility] ([facility]) ID Date Data Source [id number] 01/30/2021 04:05:00 PM EDT [facility] ([facility]) Name Value Range Interpretation Code Description Data Aminta rce(s) Supporting Document(s) White Blood Count 6.4 5.0-10.0 [facility] ([facility]) Platelets 133 172-450 [facility] Red Blood Count 3.58 4.00-5.40 [facility] ([facility]) Hemoglobin 12.2 [facility] ([facility]) Hematocrit 36.2 [facility] ([facility]) ID Date Data Source [id number] 10/07/2020 09:04:00 PM [facility] Name Value Range Interpretation Code Description Data Aminta rce(s) Supporting Document(s) Tacrolimus [Mass/volume] in Blood by LC/MS/MS 2.6 ng/mL 2.0-20.0 [facility] Trough (immediate ly following transplant) 15.0 Trough (steady state, 2 weeks or more after transplant): 3.0 - 8.0 Detection Limit = 1.0 Performed by LC-MS/MS technology. This test was developed and its performance characteristics determined by [facility]. It has not been cleared or approved by the Food and Drug Administration. ID Date Data Source [id number] 10/05/2020 02:29:00 PM [facility] Name Value Range Interpretation Code Description Data Aminta rce(s) Supporting Document(s) COMPREHENSIVE METABOLIC PANEL [facility] COMPREHENSIVE METABOLIC PANEL Sodium [Moles/volume] in Serum or Plasma 137 mEq/L 134 - 153 [facility] Potassium [Moles/volume] in Serum or Plasma 4.4 mEq/L 3.6 - 5.0 [facility] Chloride [Moles/volume] in Serum or Plasma 98 mEq/L 98 - 107 [facility] Carbon dioxide, total [Moles/volume] in Serum or Plasma 26 MEQ/L 22 - 30 [facility] Glucose [Mass/volume] in Serum or Plasma 88 MG/DL 65 - 110 [facility] BUN 30 MG/DL 7 - 21 H [facility] Creatinine [Mass/volume] in Serum or Plasma 1.3 MG/DL 0.7 - 1.5 [facility] BUN/CREAT 23 8 - 27 [facility] Protein [Mass/volume] in Serum or Plasma 6.2 G/DL 6.3 - 8.2 L [facility] Albumin [Mass/volume] in Serum or Plasma 4.2 G/DL 3.9 - 5.0 [facility] Globulin [Mass/volume] in Serum by calculation 2.0 GM/DL 2.4 - 3.2 L [facility] A/G RATIO 2.1 0.8 - 2.0 H [facility] Calcium [Mass/volume] in Serum or Plasma 10.1 MG/DL 8.4 - 10.2 [facility] Bilirubin.total [Mass/volume] in Serum or Plasma <0.7 MG/DL 0.2 - 1.3 [facility] Alkaline phosphatase [Enzymatic activity/volume] in Serum or Plasma 91 U/L 38 - 126 [facility] Aspartate aminotransferase [Enzymatic activity/volume] in Serum or Plasma 25 U/L 5 - 40 [facility] Alanine aminotransferase [Enzymatic activity/volume] in Seru m or Plasma 34 U/L 7 - 56 [facility] Anion gap 3 in Serum or Plasma 13.0 mmol/L 8.0 - 16.0 [facility] AGE 65 yrs [facility] al NON-AA GFR 44 mL[facility] AMER GFR >60 [facility] Male GFR In terprentation 20-49 [...] >32 mL/min Normal ID Date Data Source [id number] 10/05/2020 02:29:00 PM [facility] Name Value Range Interpretation Code Description Data Aminta rce(s) Supporting Document(s) Lactate dehydrogenase [Enzymatic activity/volume] in Serum o r Plasma 293 U/L 135 - 214 H [facility] ID Date Data Source [id number] 10/05/2020 02:27:00 PM [facility] Name Value Range Interpretation Code Description Data Aminta rce(s) Supporting Document(s) Magnesium [Mass/volume] in Serum or Plasma 1.9 MG/DL 1.7 - 2.2 [facility] ID Date Data Source [id number] 10/05/2020 01:58:00 PM [facility] Name Value Range Interpretation Code Description Data Aminta rce(s) Supporting Document(s) CBC W/AUTOMATED DIFF [facility] COMPLETE BLOOD COUNT Leukocytes [#/volume] in Blood by Automated count 6.5 10^3/uL 4.2 - 1 1.0 [facility] Erythrocytes [#/volume] in Blood by Automated count 3.73 10^6/uL 4. 20 - 5.40 L [facility] Hemoglobin [Mass/volume] in Blood 12.5 g/dL 12.0 - 16.0 [facility] Hematocrit [Volume Fraction] of Blood by Automated count 36.5 % 3 7.0 - 47.0 L [facility] Erythrocyte mean corpuscular volume [Entitic volume] by Auto mated count 97.9 fL 81.0 - 101 [facility] Erythrocyte mean corpuscular hemoglobin [Entitic mass] by Automated count 33.5 pg 27.0 - 34.0 [facility] Erythrocyte mean corpuscular hemoglobin concentration [Mass/volume] by Automated count 34.2 g/dL 31.0 - 36.0 [facility] Erythrocyte distribution width [Ratio] by Automated count 13.6 % 11.5 - 14.5 [facility] Platelets [#/volume] in Blood by Automated count 181 10^3/uL 150 - 45 0 [facility] Platelet mean volume [Entitic volume] in Blood by Automated count 9.9 fL 7.4 - 10.4 [facility] Neutrophils/100 leukocytes in Blood by Automated count 58.2 % 37. 0 - 80.0 [facility] Lymphocytes/100 leukocytes in Blood by Manual count 28.0 % 25.0 - 40.0 [facility] Monocytes/100 leukocytes in Blood by Automated count 11.1 % 3.0 - 8.0 H [facility] Eosinophils/100 leukocytes in Blood by Automated count 2.2 % 0.0 - 7.0 [facility] Basophils/100 leukocytes in Blood by Automated count 0.3 % 0.0 - 2.5 [facility] %IG 0.2 % 0.0 - 0.0 [facility] % 0.0 - 0.0 [facility] al Neutrophils [#/volume] in Blood by Automated count 3.79 10^3/uL 2.00 - 6.90 [facility] Lymphocytes [#/volume] in Blood by Automated count 1.82 10^3/uL 0.60 - 3.40 [facility] Monocytes [#/volume] in Blood by Automated count 0.72 10^3/uL 0.00 - 0.90 [facility] Eosinophils [#/volume] in Blood by Automated count 0.14 10^3/uL 0.00 - 0.70 [facility] Basophils [#/volume] in Blood by Automated count 0.02 10^3/uL 0.00 - 0.20 [facility] #IG 0.01 10^3/uL 0.00 - 0.10 [facility] ospital #NRBC 0.00 10^3/uL 0.00 - 0.00 [facility] MANUAL DIFF NOT INDICATED [facility] RBC MORPH NOT INDICATED [facility] spital ID Date Data Source [id number] 09/05/2020 08:12:34 AM EDT [facility] Name Value Range Interpretation Code Description Data Aminta rce(s) Supporting Document(s) Progress Note [facility] [id number] lbm [file] [id number]== ID Date Data Source [id number] 09/06/2020 07:27:46 AM EST [facility] Name Value Range Interpretation Code Description Data Aminta rce(s) Supporting Document(s) Specimen source [Identifier] of Unspecified specimen [facility] SARS-CoV-2 RNA 2018 nCoV Real-Time RT-PCR: NOT DETECTED [facility] Assay Performed [facility] 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[facility] Patient has symptoms related to [facility] When did you start to experience these symptoms [Date and time] [Phen X] [facility] Patient was hospitalized because of this condition [facility] patient was admitted to ICU for [facility] Patient resides in a congregate care setting [facility] status [facility] ID Date Data Source [id number] 09/05/2020 08:12:00 AM EDT [facility] Name Value Range Interpretation Code Description Data Aminta rce(s) Supporting Document(s) SARS-CoV-2 RNA [facility] This lab was ordered by [facility] and reported by [facility]. ID Date Data Source [id number] 09/02/2020 06:12:00 PM [facility] Value Range Interpretation Code Description Data Aminta rce(s) Supporting Document(s) Tacrolimus [Mass/volume] in Blood by LC/MS/MS 3.4 ng/mL 2.0-20.0 [facility] Trough (immediate ly following transplant) 15.0 Trough (steady state, 2 weeks or more after transplant): 3.0 - 8.0 Detection Limit = 1.0 Performed by LC-MS/MS technology. This test was developed and its performance characteristics determined by [facility]. It has not been cleared or approved by the Food and Drug Administration. ID Date Data Source [id number] [facility] Interpretation Code Description Data Aminta rce(s) Supporting Document(s) Lactate dehydrogenase [Enzymatic activity/volume] in Serum o r Plasma 275 U/L 135 - 214 H [facility] ID Date Data Source [id number] 08/31/2020 02:11:00 PM EDT [facility] Name Value Range Interpretation Code Description Data [facility](s) Supporting Document(s) COMPREHENSIVE METABOLIC PANEL [facility] COMPREHENSIVE METABOLIC PANEL Sodium [Moles/volume] in Serum or Plasma 137 mEq/L 134 - 153 [facility] Potassium [Moles/volume] in Serum or Plasma 4.2 mEq/L 3.6 - 5.0 [facility] Chloride [Moles/volume] in Serum or Plasma 99 mEq/L 98 - 107 [facility] Carbon dioxide, total [Moles/volume] in Serum or Plasma 28 MEQ/L 22 - 30 [facility] Glucose [Mass/volume] in Serum or Plasma 142 MG/DL 65 - 110 H [facility] BUN 34 MG/DL 7 - 21 [facility] Creat[facility] [Mass/volume] in Serum or Plasma 1.4 MG/DL 0.7 - 1.5 [facility] BUN/CREAT 24 8 - 27 [facility] al Protein [Mass/volume] in Serum or Plasma 6.3 G/DL 6.3 - 8.2 [facility] Albumin [Mass/volume] in Serum or Plasma 4.1 G/DL 3.9 - 5.0 [facility] Globulin [Mass/volume] in Serum by calculation 2.2 GM/DL 2.4 - 3.2 L [facility] A/G RATIO 1.9 0.8 - 2.0 [facility] Calcium [Mass/volume] in Serum or Plasma 10.0 MG/DL 8.4 - 10.2 [facility] Bilirubin.total [Mass/volume] in Serum or Plasma <0.7 MG/DL 0.2 - 1.3 [facility] Alkaline phosphatase [Enzymatic activity/volume] in Serum or Plasma 94 U/L 38 - 126 [facility] Aspartate aminotransferase [Enzymatic activity/volume] in Serum or Plasma 22 U/L 5 - 40 [facility] Alanine aminotransferase [Enzymatic activity/volume] in Seru m or Plasma 31 U/L 7 - 56 [facility] Anion gap 3 in Serum or Plasma 10.0 mmol/L 8.0 - 16.0 [facility] AGE 65 yrs [facility] NON-AA GFR 40 mL/min [facility] AFR AMER GFR >60 [facility] Male GFR In terprentation 20-49 [...] >32 mL/min Normal ID Date Data Source [id number] 08/31/2020 02:11:00 PM EDT [facility] Name Value Range Interpretation Code Description Data Aminta rce(s) Supporting Document(s) Magnesium [Mass/volume] in Serum or Plasma 1.9 MG/DL 1.7 - 2.2 [facility] ID Date Data Source [id number] 08/31/2020 01:41:00 PM EDT [facility] Name Value Range Interpretation Code Description Data Aimnta rce(s) Supporting Document(s) CBC W/AUTOMATED DIFF [facility] COMPLETE BLOOD COUNT Leukocytes [#/volume] in Blood by Automated count 5.7 10^3/uL 4.2 - 1 1.0 [facility] Erythrocytes [#/volume] in Blood by Automated count 3.67 10^6/uL 4. 20 - 5.40 L [facility] Hemoglobin [Mass/volume] in Blood 12.5 g/dL 12.0 - 16.0 [facility] Hematocrit [Volume Fraction] of Blood by Automated count 35.9 % 3 7.0 - 47.0 L [facility] Erythrocyte mean corpuscular volume [Entitic volume] by Auto mated count 97.8 fL 81.0 - 101 [facility] Erythrocyte mean corpuscular hemoglobin [Entitic mass] by Automated count 34.1 pg 27.0 - 34.0 H [facility] Erythrocyte mean corpuscular hemoglobin concentration [Mass/volume] by Automated count 34.8 g/dL 31.0 - 36.0 [facility] Erythrocyte distribution width [Ratio] by Automated count 13.4 % 11.5 - 14.5 [facility] Platelets [#/volume] in Blood by Automated count 159 10^3/uL 150 - 45 0 [facility] Platelet mean volume [Entitic volume] in Blood by Automated count 10.3 fL 7.4 - 10.4 [facility] Neutrophils/100 leukocytes in Blood by Automated count 61.6 % 37. 0 - 80.0 [facility] Lymphocytes/100 leukocytes in Blood by Manual count 24.6 % 25.0 - 40.0 L [facility] Monocytes/100 leukocytes in Blood by Automated count 10.5 % 3.0 - 8.0 H [facility] Eosinophils/100 leukocytes in Blood by Automated count 2.8 % 0.0 - 7.0 [facility] Basophils/100 leukocytes in Blood by Automated count 0.3 % 0.0 - 2.5 [facility] %IG 0.2 % 0.0 - 0.0 H [facility] %NRBC 0.0 % 0.0 - 0.0 [facility] al Neutrophils [#/volume] in Blood by Automated count 3.54 10^3/uL 2.00 - 6.90 [facility] Lymphocytes [#/volume] in Blood by Automated count 1.41 10^3/uL 0.60 - 3.40 [facility] Monocytes [#/volume] in Blood by Automated count 0.60 10^3/uL 0.00 - 0.90 [facility] Eosinophils [#/volume] in Blood by Automated count 0.16 10^3/uL 0.00 - 0.70 [facility] Basophils [#/volume] in Blood by Automated count 0.02 10^3/uL 0.00 - 0.20 [facility] #IG 0.01 10^3/uL 0.00 - 0.10 [facility] #NRBC 0.00 10^3/uL 0.00 - 0.00 [facility] MANUAL DIFF NOT INDICATED [facility] RBC MORPH NOT INDICATED [facility] ID Date Data Source [id number] 08/18/2020 10:36:26 AM EDT [facility] Name Value Range Interpretation Code Description Data Aminta rce(s) Supporting Document(s) Progress Note [facility] LHSGAp7xSrPKOvBi17/[id number]uFGsShEiUuKGBp m [file] ICAgICAgICAgICAgICAgICAgICAgICAgICAgICAgICAgICAgICAgICAgICAgICAgICAgICAgICAgICAg ICAgICAgICAgICAgICAgICAgICAgDQogICAgICAgICAgICAgICAgICAgICAgICAgICAgICAgICAgICAg ICAgICAgICAgICAgICAgICAgICAgICAgICAgICAgIC AgICAgICAgICAgICAgICAgICAgICAgICAgICAgICAgDQogICAgICAgICAgICAgICAgICAgICAgICAgIC AgICAgICAgICAgICAgICAgICAgICAgICAgICAgICAgICAgICAgICAgICAgICAgICAgICAgICAgICAgIC AgICAgICAgICAgICAgDQogICAgICAgICAgICAgICAg ICAgICAgICAgICAgICAgICAgICAgICAgICAgICAgICAgICAgICAgICAgICAgICAgICAgICAgICAgICAg ICAgICAgICAgICAgICAgICAgICAgICAgDQogICAgICAgICAgICAgICAgICAgICAgICAgICAgICAgICAg ICAgICAgICAgICAgICAgICAgICAgICAgICAgICAgIC AgICAgICAgICAgICAgICAgICAgICAgICAgICAgICAgICAgDQogICAgICAgICAgICAgICAgICAgICAgIC AgICAgICAgICAgICAgICAgICAgICAgICAgICAgICAgICAgICAgICAgICAgICAgICAgICAgICAgICAgIC AgICAgICAgICAgICAgICAgDQogICAgICAgICAgICAg ICAgICAgICAgICAgICAgICAgICAgICAgICAgICAgICAgICAgICAgICAgICAgICAgICAgICAgICAgICAg ICAgICAgICAgICAgICAgICAgICAgICAgICAgDQogICAgICAgICAgICAgICAgICAgICAgICAgICAgICAg ICAgICAgICAgICAgICAgICAgICAgICAgICAgICAgIC AgICAgICAgICAgICAgICAgICAgICAgICAgICAgICAgICAgICAgDQogICAgICAgICAgICAgICAgICAgIC AgICAgICAgICAgICAgICAgICAgICAgICAgICAgICAgICAgICAgICAgICAgICAgICAgICAgICAgICAgIC AgICAgICAgICAgICAgICAgICAgDQogICAgICAgICAg ICAgICAgICAgICAgICAgICAgICAgICAgICAgICAgICAgICAgICAgICAgICAgICAgICAgICAgICAgICAg YUBqMUBhXMGuAVLdMXAqJYWyQTMhLHAvGCZdMXXgPDu1P3knPXOlUCMxTX1wQEu3Pr7+DQoNCmVuZHN0 qzBikA1FKI8yn2OmINzkRWVeg3XlBTq2JL1XWMHzBD ziQB6AXRsnli9YOYSxRKDwmNBLo9skGyNzJGV7DNAgUafsOM9JCVIxE6nbpfJuWADrFHMOPD7IAmGyO8 MrpJ86MOIZEm1+LBezbjGnNolSAzS0QQIvq7ImOEp1XY0YMFXpQtdir9CtScOcMAUJKAhfAY7MSTQ9DR NnDEQzAn7QFWVbS398pvAvZV3PYv6ULqCuLP7nxs5T GyGhKVQiOirSCzr9DXldGS3MjBBkIWdZut4gnhRnyuFEy2OrrwKhmASJSFByfUDPKUGtGPSzRHvzJXHP UhQygYJcCG7zLl8uJLDzRIUzDhNsHCRAXT9EGWVrMLLkiGTnJSXnENABWK1VWQqbSRX9FHNvgkRcqTIr RPzeYJ2UAPOfylZaEWceKRGBAPz+Xy2FIY2je2GoXI qaEUXkDF5spo1BWDlTGbJmW9C7sBBhG5S8UXoeKp4RQHWdRSIeKRssEWDAPDdhRI2WMR4bwvD0HP6DgD SdHBDfRYCjnTEbZBd9U65otAVoKLlgXE9LJRR+Jovita+Yo8CBIPgSKIyCGJaVqIjFXXKSeSoE2YjZ8WKg5 MkB2EnKK50oYzgtaPdNUqxLF9FPD5gLADqHYRYGE3D gZMxvC8bjwCeXTQwHCFNXcHjF68umCQuGUGtRQA9YLOiNs3BLFSbP4CuqkEdnTudgfEaCZEmOQRHIB9A YTuxveFkzDLkoPnyDC37oNsoNX2ZHc4ZAsSuQR7ekj8PxYDoGg3VZKHkEe0YHWSrGOXcQNFwFQE8BHAy DqSqKPuuEEUkRJVvMKN7DSGcPCHvWT7JFeHqPZJwUF vjVZQwCWEkGLLxej3WNKGlHFGsDDpvBCObPMLuLRGtSNexIJPgPCNqJNH0CLHyTJEaTG4QDxGaUJPmBF MjTmynHITxALTvcr9DBILxJNIySfFsAfWxLCBpEUAsFLxaOLYkTWPgABxaFNNqWRHyKW2LHeJnQSVhKZ FkOJcgHGVyPEKlfq7OXXNjISKzBzU0GyNmPSBfGPCq FBddUWHbFKZ7AVS2OTJxOJDuHX3CMpThMVWvPOK8QqvcFBOcUJAqfz2EXSMrMOIbZTsdIAYlYTHlGOLk TJcrRTNgPJU4NfV2HEHsAWGwJD4GEhRjBWLsPWO8KNUnNKTaKQYejd1VRAXcIVWeUqv5YQQyAEQuGETo WTmzUMCeODJ4ETF7UDIuTSMsBI8KAkFfCBBoBLmzDG QdBDExOGPhrz7IYYZyDYFsGgM3QFBuRUOnQNGsKEwsQHIiVKF9LRK1KIWxHNOzHR1PElDvDEDvHYapWI fsTWGvBYIfgb1TGQDrFKSmLKO9SZDvPLZeLLTaRDi8bsEjnCKxEJp0PE5DL7BvhcQhAiZRRw9Ch972HX KdBZKnMq0LP4baUs2qDSCuSSCQNk3LPWm7QJL1YWU3 R4AdYCupY0E9VxDlSLGzCkvcSwywZnw0HnZ+RQqnMCS9ABL3U7A0CMDbNNQuYNU2JRYsO5E1D2C7LAgg XJ5pWSVKPo1+BZjtvGSxoJurOQQRVpN3LJe5ZMgnPSWIQr6F ID Date Data Source [id number] 08/19/2020 11:46:01 AM EDT [facility] Value Range Interpretation Code Description Data Aminta rce(s) Supporting Document(s) Specimen source [Identifier] of Unspecified specimen [facility] SARS-CoV-2 RNA 2018 nCoV Real-Time RT-PCR: NOT DETECTED [facility] Assay Performed [facility] Initial validation was performed by the Centers for Disease Control and Prevention (CDC) and additionally validated by the Dept. of Pathology [facility]. Negative results do not preclude SARS-CoV-2 infection and should not be used as the sole basis for patient management decisions.Additional information is available on the following FDA websites for health care providers and patients. https://www.fda.gov/media/096119/download, https://www.fda.gov/media/096830/download. 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[facility] Patient has symptoms related to [facility] When did you start to experience these symptoms [Date and time] [Phen X] [facility] Patient was hospitalized because of this condition [facility] patient was admitted to ICU for [facility] Patient resides in a congregate care setting [facility] status [facility] ID Date Data Source [id number] 08/18/2020 10:36:00 AM EDT [facility] Name Value Range Interpretation Code Description Data Aminta rce(s) Supporting Document(s) SARS-CoV-2 RNA [facility] This lab was ordered by [facility] and reported by [facility] Clinical [facility] ID Date Data Source [id number] 07/10/2020 09:43:00 PM T [facility] Name Value Range Interpretation Code Description Data Aminta rce(s) Supporting Document(s) Tacrolimus [Mass/volume] in Blood by LC/MS/MS 1.9 ng/mL 2.0-20.0 L [facility] Trough (immediate ly following transplant) 15.0 Trough (steady state, 2 weeks or more after transplant): 3.0 - 8.0 Detection Limit = 1.0 Performed by LC-MS/MS technology. This test was developed and its performance characteristics determined by [employer]. It has not been cleared or approved by the Food and Drug Administration. ID Date Data Source [id number] 07/07/2020 01:33:00 PM [facility] Name Value Range Interpretation Code Description Data Aminta rce(s) Supporting Document(s) Lactate dehydrogenase [Enzymatic activity/volume] in Serum o r Plasma 301 U/L 135 - 214 H [facility] ID Date Data Source [id number] 07/07/2020 01:33:00 PM T [facility] Name Value Range Interpretation Code Description Data Aminta rce(s) Supporting Document(s) COMPREHENSIVE METABOLIC PANEL [facility] COMPREHENSIVE METABOLIC PANEL Sodium [Moles/volume] in Serum or Plasma 135 mEq/L 134 - 153 [facility] Potassium [Moles/volume] in Serum or Plasma 4.3 mEq/L 3.6 - 5.0 [facility] Chloride [Moles/volume] in Serum or Plasma 99 mEq/L 98 - 107 [facility] Carbon dioxide, total [Moles/volume] in Serum or Plasma 24 MEQ/L 22 - 30 [facility] Glucose [Mass/volume] in Serum or Plasma 92 MG/DL 65 - 110 [facility] BUN 34 MG/DL 7 - 21 H [facility] Creatinine [Mass/volume] in Serum or Plasma 1.5 MG/DL 0.7 - 1.5 [facility] BUN/CREAT 23 8 - [facility] Protein [Mass/volume] in Serum or Plasma 5.9 G/DL 6.3 - 8.2 L [facility] Albumin [Mass/volume] in Serum or Plasma 3.9 G/DL 3.9 - 5.0 [facility] Globulin [Mass/volume] in Serum by calculation 2.0 GM/DL 2.4 - 3.2 L [facility] A/G RATIO 2.0 0.8 - 2.0 [facility] Calcium [Mass/volume] in Serum or Plasma 9.7 MG/DL 8.4 - 10.2 [facility] Bilirubin.total [Mass/volume] in Serum or Plasma <0.7 MG/DL 0.2 - 1.3 [facility] Alkaline phosphatase [Enzymatic activity/volume] in Serum or Plasma 91 U/L 38 - 126 [facility] Aspartate aminotransferase [Enzymatic activity/volume] in Serum or Plasma 23 U/L 5 - 40 [facility] Alanine aminotransferase [Enzymatic activity/volume] in Seru m or Plasma 29 U/L 7 - 56 [facility] Anion gap 3 in Serum or Plasma 12.0 mmol/L 8.0 - 16.0 [facility] AGE 65 yrs [facility] NON-AA GFR 37 mL/min [facility] AFR AMER GFR >60 [facility] Male GFR In terprentation 20-49 [...] >32 mL/min Normal ID Date Data Source [id number] 07/07/2020 01:23:00 PM EDT [facility] Name Value Range Interpretation Code Description Data Aminta rce(s) Supporting Document(s) Magnesium [Mass/volume] in Serum or Plasma 1.7 MG/DL 1.7 - 2.2 [facility] ID Date Data Source [id number] 07/07/2020 01:16:00 PM EDT [facility] Name Value Range Interpretation Code Description Data Aminta rce(s) Supporting Document(s) CBC W/AUTOMATED DIFF [facility] COMPLETE BLOOD COUNT Leukocytes [#/volume] in Blood by Automated count 5.6 10^3/uL 4.2 - 1 1.0 [facility] Erythrocytes [#/volume] in Blood by Automated count 3.27 10^6/uL 4. 20 - 5.40 L [facility] Hemoglobin [Mass/volume] in Blood 11.0 g/dL 12.0 - 16.0 L [facility] Hematocrit [Volume Fraction] of Blood by Automated count 31.9 % 3 7.0 - 47.0 L [facility] Erythrocyte mean corpuscular volume [Entitic volume] by Auto mated count 97.6 fL 81.0 - 101 [facility] Erythrocyte mean corpuscular hemoglobin [Entitic mass] by Automated count 33.6 pg 27.0 - 34.0 [facility] Erythrocyte mean corpuscular hemoglobin concentration [Mass/volume] by Automated count 34.5 g/dL 31.0 - 36.0 [facility] Erythrocyte distribution width [Ratio] by Automated count 13.3 % 11.5 - 14.5 [facility] Platelets [#/volume] in Blood by Automated count 150 10^3/uL 150 - 45 0 [facility] Platelet mean volume [Entitic volume] in Blood by Automated count 10.0 fL 7.4 - 10.4 [facility] Neutrophils/100 leukocytes in Blood by Automated count 60.9 % 37. 0 - 80.0 [facility] Lymphocytes/100 leukocytes in Blood by Manual count 24.6 % 25.0 - 40.0 L [facility] Monocytes/100 leukocytes in Blood by Automated count 11.2 % 3.0 - 8.0 H [facility] Eosinophils/100 leukocytes in Blood by Automated count 2.7 % 0.0 - 7.0 [facility] Basophils/100 leukocytes in Blood by Automated count 0.4 % 0.0 - 2.5 [facility] %IG 0.2 % 0.0 - 0.0 [facility] %NRBC 0.0 % 0.0 - 0.0 [facility] Neutrophils [#/volume] in Blood by Automated count 3.43 10^3/uL 2.00 - 6.90 [facility] Lymphocytes [#/volume] in Blood by Automated count 1.38 10^3/uL 0.60 - 3.40 [facility] Monocytes [#/volume] in Blood by Automated count 0.63 10^3/uL 0.00 - 0.90 [facility] Eosinophils [#/volume] in Blood by Automated count 0.15 10^3/uL 0.00 - 0.70 [facility] Basophils [#/volume] in Blood by Automated count 0.02 10^3/uL 0.00 - 0.20 [facility] #IG 0.01 10^3/uL 0.00 - 0.10 [facility] #NRBC 0.00 10^3/uL 0.00 - 0.00 [facility] MANUAL DIFF NOT INDICATED [facility] RBC MORPH NOT INDICATED [facility] Procedure Social History Code Duration Value Status Description Data Source(s ) Smoking 08/11/2021 12:00:00 AM EDT Never Smoker completed Never S moker eCW1 ([facility]) Smoking 05/11/2021 12:00:00 AM EDT Never Smoker completed Never S moker eCW1 ([facility]) Smoking 05/11/2021 12:00:00 AM EDT Never Smoker completed Never S moker eCW1 ([facility]) Smoking 05/11/2021 12:00:00 AM EDT Never Smoker completed Never S moker eCW1 ([facility]) Smoking 05/11/2021 12:00:00 AM EDT Never Smoker completed Never S moker eCW1 ([facility]) Smoking 05/04/2021 12:00:00 AM EDT Never Smoker completed Never S moker eCW1 ([facility]) Smoking 05/04/2021 12:00:00 AM EDT Never Smoker completed Never S moker eCW1 ([facility]) Smoking 04/01/2021 12:00:00 AM EDT Never Smoker completed Never S moker eCW1 ([facility]) Smoking 04/01/2021 12:00:00 AM EDT Never Smoker completed Never S moker eCW1 ([facility]) Smoking 04/01/2021 12:00:00 AM EDT Never Smoker completed Never S moker eCW1 ([facility]) Smoking 04/01/2021 12:00:00 AM EDT Never Smoker completed Never S moker eCW1 ([facility]) Smoking 04/01/2021 12:00:00 AM EDT Never Smoker completed Never S moker eCW1 ([facility]) Smoking 03/04/2021 12:00:00 AM EDT Never Smoker completed Never S moker eCW1 ([facility]) Smoking 03/04/2021 12:00:00 AM EDT Never Smoker completed Never S moker eCW1 ([facility]) Smoking 03/04/2021 12:00:00 AM EDT Never Smoker completed Never S moker eCW1 ([facility]) Smoking 03/04/2021 12:00:00 AM EDT Never Smoker completed Never S moker eCW1 ([facility]) Smoking 03/04/2021 12:00:00 AM EDT Never Smoker completed Never S moker eCW1 ([facility]) Smoking 03/04/2021 12:00:00 AM EDT Never Smoker completed Never S moker eCW1 ([facility]) Smoking 02/18/2021 12:00:00 AM EDT Never Smoker completed Never S moker eCW1 ([facility]) Smoking 02/18/2021 12:00:00 AM EDT Never Smoker completed Never S moker eCW1 ([facility]) Smoking 02/18/2021 12:00:00 AM EDT Never Smoker completed Never S moker eCW1 ([facility]) Smoking 02/18/2021 12:00:00 AM EDT Never Smoker completed Never S moker eCW1 ([facility]) Smoking 02/18/2021 12:00:00 AM EDT Never Smoker completed Never S moker eCW1 ([facility]) Smoking 02/10/2021 12:00:00 AM EDT Patient has never smoked co mpleted Patient has never smoked MEDENT ([facility]) Smoking 02/04/2021 12:00:00 AM EDT Never Smoker completed Never S moker eCW1 ([facility]) Smoking 02/04/2021 12:00:00 AM EDT Never Smoker completed Never S moker eCW1 ([facility]) Smoking 01/27/2021 12:00:00 AM EDT Never Smoker completed Never S moker eCW1 ([facility]) Smoking 01/27/2021 12:00:00 AM EDT Never Smoker completed Never S moker eCW1 ([facility]) Smoking 01/19/2021 12:00:00 AM EDT Never Smoker completed Never S moker eCW1 ([facility]) Smoking 12/15/2020 12:00:00 AM EST Never Smoker completed Never S moker eCW1 ([facility]) Smoking 12/15/2020 12:00:00 AM EST Never Smoker completed Never S moker eCW1 ([facility]) Smoking 12/15/2020 12:00:00 AM EST Never Smoker completed Never S moker eCW1 ([facility]) Smoking 12/15/2020 12:00:00 AM EST Never Smoker completed Never S moker eCW1 ([facility]) Smoking 11/17/2020 12:00:00 AM EST Never Smoker completed Never S moker eCW1 ([facility]) Smoking 11/17/2020 12:00:00 AM EST Never Smoker completed Never S moker eCW1 ([facility]) Smoking 10/22/2020 12:00:00 AM EST Never Smoker completed Never S moker eCW1 ([facility]) Smoking 10/22/2020 12:00:00 AM EST Never Smoker completed Never S moker eCW1 ([facility]) Smoking 10/22/2020 12:00:00 AM EST Never Smoker completed Never S moker eCW1 ([facility]) Caffeine Use Details 10/13/2020 12:00:00 AM EST completed soda, 1 cup [facility] ([facility]) Smoking 10/13/2020 12:00:00 AM EST Unknown if ever smoked comp leted Unknown if ever smoked [employer] ([facility]) Smoking 09/24/2020 12:00:00 AM EST Patient has never smoked co mpleted Patient has never smoked MEDENT ([facility], ) Smoking 09/22/2020 12:00:00 AM EST Never Smoker completed Never S moker eCW1 ([facility]) Smoking 09/22/2020 12:00:00 AM EST Never Smoker completed Never S moker eCW1 ([facility]) Smoking 09/22/2020 12:00:00 AM EST Never Smoker completed Never S moker eCW1 ([facility]) Smoking 08/11/2020 12:00:00 AM EDT Never Smoker completed Never S moker eCW1 ([facility]) Smoking 08/11/2020 12:00:00 AM EDT Never Smoker completed Never S moker eCW1 ([facility]) Smoking 08/11/2020 12:00:00 AM EDT Never Smoker completed Never S moker eCW1 ([facility]) Smoking 08/11/2020 12:00:00 AM EDT Never Smoker completed Never S moker eCW1 ([facility]) Smoking 08/11/2020 12:00:00 AM EDT Never Smoker completed Never S moker eCW1 ([facility]) Smoking 08/11/2020 12:00:00 AM EDT Never Smoker completed Never S moker eCW1 ([facility]) Smoking 08/11/2020 12:00:00 AM EDT Never Smoker completed Never S moker eCW1 ([facility]) Smoking 08/11/2020 12:00:00 AM EDT Never Smoker completed Never S moker eCW1 ([facility]) Smoking 08/11/2020 12:00:00 AM EDT Never Smoker completed Never S moker eCW1 ([facility]) Smoking 08/04/2020 12:00:00 AM EDT Never Smoker completed Never S moker eCW1 ([facility]) Smoking 08/04/2020 12:00:00 AM EDT Never Smoker completed Never S moker eCW1 ([facility]) Smoking 08/04/2020 12:00:00 AM EDT Never Smoker completed Never S moker eCW1 ([facility]) Vital Signs ID Date Data Source UNK Name Value Range Interpretation Code Description Data Source(s) Body weight 213.0 [lb_av] 213.0 [lb_av] eCW1 ([facility]) Body weight 96.62 kg 96.62 kg eCW1 ([facility]) Body height 65.5 [in_i] 65.5 [in_i] eCW1 ([facility]) Body mass index (BMI) [Ratio] 34.90 kg/m2 34.90 kg/m2 eCW1 ([facility]) Heart rate 59 /min 59 /min eCW1 ([facility]) Respiratory rate 18 /min 18 /min eCW1 ([facility]) Body temperature 97.9 [degF] 97.9 [degF] eCW1 ( [facility]) Systolic blood pressure 122 mm[Hg] 122 mm[Hg] e CW1 ([facility]) Diastolic blood pressure 60 mm[Hg] 60 mm[Hg] eCW1 ([facility]) Systolic blood pressure 118 mm[Hg] 118 mm[Hg] M EDENT ([facility]) Diastolic blood pressure 70 mm[Hg] 70 mm[Hg] MEDENT ([facility]) Heart rate 63 /min 63 /min MEDENT ([facility]) Body temperature 97.5 [degF] 97.5 [degF] MEDENT ([facility]) Respiratory rate 16 /min 16 /min MEDENT ( [facility]) Oxygen saturation in Arterial blood by Pulse oximetry 100 % 100 % MEDENT ([facility]) Body weight 222 [lb_av] 222 [lb_av] eCW1 ([facility]) Body weight 100.7 kg 100.7 kg eCW1 ([facility]) Body height 65.5 [in_i] 65.5 [in_i] eCW1 ([facility]) Body mass index (BMI) [Ratio] 36.38 kg/m2 36.38 kg/m2 eCW1 ([facility]) Heart rate 62 /min 62 /min eCW1 ([facility]) Respiratory rate 18 /min 18 /min eCW1 ([facility]) Body temperature 97.8 [degF] 97.8 [degF] eCW1 ( [facility]) Systolic blood pressure 126 mm[Hg] 126 mm[Hg] e CW1 ([facility]) Diastolic blood pressure 66 mm[Hg] 66 mm[Hg] eCW1 ([facility]) Body weight 219 [lb_av] 219 [lb_av] eCW1 ([facility]) Body height 65.5 [in_i] 65.5 [in_i] eCW1 ([facility]) Body mass index (BMI) [Ratio] 35.89 kg/m2 35.89 kg/m2 eCW1 ([facility]) Systolic blood pressure 116 mm[Hg] 116 mm[Hg] e CW1 ([facility]) Diastolic blood pressure 55 mm[Hg] 55 mm[Hg] eCW1 ([facility]) Heart rate 65 /min 65 /min eCW1 ([facility]) Respiratory rate 16 /min 16 /min eCW1 ([facility]) Body temperature 98.0 [degF] 98.0 [degF] eCW1 ( [facility]) Body weight 225 [lb_av] 225 [lb_av] eCW1 ([facility]) Systolic blood pressure 133 mm[Hg] 133 mm[Hg] e CW1 ([facility]) Body height 65.5 [in_i] 65.5 [in_i] eCW1 ([facility]) Diastolic blood pressure 64 mm[Hg] 64 mm[Hg] eCW1 ([facility]) Body mass index (BMI) [Ratio] 36.87 kg/m2 36.87 kg/m2 eCW1 ([facility]) Heart rate 66 /min 66 /min eCW1 ([facility]) Respiratory rate 17 /min 17 /min eCW1 ([facility]) Body temperature 98.5 [degF] 98.5 [degF] eCW1 ( [facility]) Body weight 224 [lb_av] 224 [lb_av] eCW1 ([facility]) Heart rate 68 /min 68 /min eCW1 ([facility]) Respiratory rate 18 /min 18 /min eCW1 ([facility]) Body temperature 97.8 [degF] 97.8 [degF] eCW1 ( [facility]) Systolic blood pressure 153 mm[Hg] 153 mm[Hg] e CW1 ([facility]) Body height 65.5 [in_i] 65.5 [in_i] eCW1 ([facility]) Diastolic blood pressure 69 mm[Hg] 69 mm[Hg] eCW1 ([facility]) Body mass index (BMI) [Ratio] 36.70 kg/m2 36.70 kg/m2 eCW1 ([facility]) Body weight 222.00 [lb_av] 222.00 [lb_av] MEDEN T ([facility]) Body height 65 [in_i] 65 [in_i] MEDENT ([facility]) 5'5" Body mass index (BMI) [Ratio] 36.9 kg/m2 36.9 k g/m2 MEDENT ([facility]) Heart rate 61 /min 61 /min MEDENT ([facility]) Systolic blood pressure--sitting 142 mm[Hg] 142 mm[Hg] MEDENT ([facility]) Ra, large cuff Diastolic blood pressure--sitting 78 mm[Hg] 78 mm[Hg] MEDENT ([facility]) Ra, large cuff Systolic blood pressure--supine 148 mm[Hg] 148 mm[Hg] MEDENT ([facility]) Ra, large cuff Diastolic blood pressure--supine 80 mm[Hg] 80 mm[Hg] MEDENT ([facility]) Ra, large cuff Systolic blood pressure--standing 138 mm[Hg] 13 8 mm[Hg] MEDENT ([facility]) Ra, large cuff Diastolic blood pressure--standing 78 mm[Hg] 7 8 mm[Hg] MEDENT ([facility]) Ra, large cuff Body weight 223 [lb_av] 223 [lb_av] eCW1 ([facility]) Body height 65.5 [in_i] 65.5 [in_i] eCW1 ([facility]) Body mass index (BMI) [Ratio] 36.54 kg/m2 36.54 kg/m2 eCW1 ([facility]) Heart rate 65 /min 65 /min eCW1 ([facility]) Respiratory rate 18 /min 18 /min eCW1 ([facility]) Body temperature 97.9 [degF] 97.9 [degF] eCW1 ( [facility]) Systolic blood pressure 128 mm[Hg] 128 mm[Hg] e CW1 ([facility]) Diastolic blood pressure mm[Hg] eCW1 ([facility]) Systolic blood pressure 128 mm[Hg] 128 mm[Hg] M EDENT ([facility], ) Diastolic blood pressure 80 mm[Hg] 80 mm[Hg] MEDENT ([facility], ) Heart rate 72 /min 72 /min MEDENT ([facility], ) Oxygen saturation in Arterial blood by Pulse oximetry 97 % 97 % [facility] ([facility], ) Room Air Body height 66 [in_i] 66 [in_i] MEDENT ([facility], ) 5'6" Body weight 214.00 [lb_av] 214.00 [lb_av] MEDEN T ([facility], ) Body mass index (BMI) [Ratio] 34.5 kg/m2 34.5 k g/m2 MEDENT ([facility], ) [place] body weight 130 [lb_av] 130 [lb_av] MEDEN T ([facility], ) Body weight 97.070 kg 97.070 kg MEDENT ([facility], ) Body weight 219 [lb_av] 219 [lb_av] eCW1 ([facility]) Body height 65.5 [in_i] 65.5 [in_i] eCW1 ([facility]) Body mass index (BMI) [Ratio] 35.89 kg/m2 35.89 kg/m2 eCW1 ([facility]) Heart rate 81 /min 81 /min eCW1 ([facility]) Respiratory rate 18 /min 18 /min eCW1 ([facility]) Body temperature 96.3 [degF] 96.3 [degF] eCW1 ( [facility]) Systolic blood pressure 131 mm[Hg] 131 mm[Hg] e CW1 ([facility]) Diastolic blood pressure 62 mm[Hg] 62 mm[Hg] eCW1 ([facility]) Heart rate 60 /min 60 /min eCW1 ([facility]) Body weight 218 [lb_av] 218 [lb_av] eCW1 ([facility]) Body height 65.5 [in_i] 65.5 [in_i] eCW1 ([facility]) Body mass index (BMI) [Ratio] 35.72 kg/m2 35.72 kg/m2 eCW1 ([facility]) Respiratory rate 18 /min 18 /min eCW1 ([facility]) Body temperature 97.6 [degF] 97.6 [degF] eCW1 ( [facility]) Systolic blood pressure 161 mm[Hg] 161 mm[Hg] e CW1 ([facility]) Diastolic blood pressure 72 mm[Hg] 72 mm[Hg] eCW1 ([facility]) Patient Treatment Plan of Care Planned Activity Planned Date Details Description Data Source (s) Lorazepam 1 MG Oral Tablet 06/15/2021 12:00:00 AM EDT eCW1 ([facility]) Mupirocin 20 MG/ML Topical Cream 05/04/2021 12:00:00 AM EDT eCW1 ([facility]) carbamide peroxide 65 MG/ML Otic Solution [Debrox] 05/04/2021 12 :00:00 AM EDT eCW1 ([facility]) Mupirocin 20 MG/ML Topical Cream 05/04/2021 12:00:00 AM EDT eCW1 ([facility]) carbamide peroxide 65 MG/ML Otic Solution [Debrox] 05/04/2021 12 :00:00 AM EDT eCW1 ([facility]) Escitalopram 5 MG Oral Tablet [Lexapro] 03/26/2021 12:00:00 AM EDT eCW1 ([facility]) Escitalopram 5 MG Oral Tablet [Lexapro] 03/26/2021 12:00:00 AM EDT eCW1 ([facility]) Escitalopram 5 MG Oral Tablet [Lexapro] 03/26/2021 12:00:00 AM EDT eCW1 ([facility]) Escitalopram 5 MG Oral Tablet [Lexapro] 12/15/2020 12:00:00 AM EST eCW1 ([facility]) Escitalopram 5 MG Oral Tablet [Lexapro] 12/15/2020 12:00:00 AM EST eCW1 ([facility]) Escitalopram 5 MG Oral Tablet [Lexapro] 12/15/2020 12:00:00 AM EST eCW1 ([facility]) Escitalopram 5 MG Oral Tablet [Lexapro] 12/15/2020 12:00:00 AM EST eCW1 ([facility]) Escitalopram 5 MG Oral Tablet [Lexapro] 12/15/2020 12:00:00 AM EST eCW1 ([facility]) Escitalopram 5 MG Oral Tablet [Lexapro] 12/15/2020 12:00:00 AM EST eCW1 ([facility]) Escitalopram 5 MG Oral Tablet [Lexapro] 12/15/2020 12:00:00 AM EST eCW1 ([facility]) Escitalopram 5 MG Oral Tablet [Lexapro] 12/15/2020 12:00:00 AM EST eCW1 ([facility]) Escitalopram 5 MG Oral Tablet [Lexapro] 12/15/2020 12:00:00 AM EST eCW1 ([facility]) Escitalopram 5 MG Oral Tablet [Lexapro] 12/15/2020 12:00:00 AM EST eCW1 ([facility]) Cephalexin 500 MG Oral Capsule [Keflex] 09/22/2020 12:00:00 AM EST eCW1 ([facility]) Cephalexin 500 MG Oral Capsule [Keflex] 09/22/2020 12:00:00 AM EST eCW1 ([facility]) Cephalexin 500 MG Oral Capsule [Keflex] 09/22/2020 12:00:00 AM EST eCW1 ([facility]) Ondansetron 4 MG Disintegrating Oral Tablet 08/18/2020 12:00:00 AM EDT eCW1 ([facility]) Ondansetron 4 MG Disintegrating Oral Tablet 08/18/2020 12:00:00 AM EDT eCW1 ([facility]) Ondansetron 4 MG Disintegrating Oral Tablet 08/18/2020 12:00:00 AM EDT eCW1 ([facility]) Ondansetron 4 MG Disintegrating Oral Tablet 08/18/2020 12:00:00 AM EDT eCW1 ([facility]) Ondansetron 4 MG Disintegrating Oral Tablet 08/18/2020 12:00:00 AM EDT eCW1 ([facility]) Ondansetron 4 MG Disintegrating Oral Tablet 08/18/2020 12:00:00 AM EDT eCW1 ([facility]) Ondansetron 4 MG Disintegrating Oral Tablet 08/18/2020 12:00:00 AM EDT eCW1 ([facility]) Ondansetron 4 MG Disintegrating Oral Tablet 08/18/2020 12:00:00 AM EDT eCW1 ([facility]) Ondansetron 4 MG Disintegrating Oral Tablet 08/18/2020 12:00:00 AM EDT eCW1 ([facility])
[2021-08-30] MEDS ORDERED: CYCLOBENZAPRINE 10MG TABLET PO PRN (14:05)
[2021-08-30] MEDS ORDERED: ACETAMINOPHEN 650MG ER TAB (TYLENOL ARTHRITIS) PO PRN (14:05)
[2021-08-30] MEDS ORDERED: LACTULOSE 20 GM/30 ML SYRUP UD PO PRN (14:05)
[2021-08-30] MEDS ORDERED: ATROPINE SULF 0.4 MG/ML 1ML VIAL (J0461) IV PRN (14:20)
[2021-08-30] MEDS ORDERED: DEXTROSE 50% 50 ML SYRINGE IV PRN (14:25)
[2021-08-30] MEDS ORDERED: LEVEMIR (INSULIN DETEMIR) 1 UNITS/0.01ML SC ONE (14:25)
[2021-08-30] MEDS ORDERED: GLUCOSE 4GM CHEW TABLET PO PRN (14:25)
[2021-08-30] MEDS ORDERED: GLUCAGON INJ 1MG VIAL SC PRN (14:25)
--- NOTE | 2021-08-30 14:31 | HPEPDOC ---
General Date of Admission 08/30/21 Date of Service: Aug 30, 2021 Chief Complaint The patient is a 66-year-old female admitted with a reason for visit of Low Hr. Source: Patient History of Present Illness Patient is 66 years old female with past medical history of myelofibrosis status post bone marrow transplant, adrenal insufficiency, atrial fibrillation, lupus presented to hospital with generalized weakness. Patient stated that she has been having in her usual state of health until 2 days ago when she started feeling weakness and shortness of breath on exertion. 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 In ER patient was found to have heart rate of 87 no leukocytosis, hemoglobin 9.8, sodium level of 128 creatinine 2.2, BNP 824. EKG was done and showed normal sinus rhythm with first degree of heart block and heart rate 43. Patient denied fever, chills, nausea, vomiting chest pain or palpitations Home Medications Scheduled Acyclovir (Acyclovir) 400 Mg Tab, 400 MG PO BID, (Reported) Budesonide (Budesonide EC) 3 Mg Cap, 3 MG PO DAILY, (Reported) Chlorthalidone (Chlorthalidone) 25 Mg Tablet, 25 MG PO DAILY, (Reported) Flecainide Acetate (Flecainide Acetate) 50 Mg Tablet, 50 MG PO BID, (Reported) Fluconazole (Diflucan) 200 Mg Tab, 200 MG PO QHS, (Reported) Gabapentin (Gabapentin) 300 Mg Capsule, 300 MG PO QHS, (Reported) Hydroxychloroquine Sulfate (Hydroxychloroquine Sulfate) 200 Mg Tablet, 200 MG PO DAILY, (Reported) Insulin Glargine,Hum.rec.anlog (Lantus Solostar) 100 Unit/1 Ml Insuln.pen, 24 UNITS SC QHS, (Reported) Insulin Lispro (Admelog) 100 Unit/1 Ml Vial, 1 DOSE SC AC, (Reported) PER SLIDING SCALE Lorazepam (Lorazepam) 1 Mg Tablet, 1 MG PO QHS, (Reported) CAN TAKE UP TO 1.5MG PRN Losartan Potassium (Losartan Potassium) 100 Mg Tablet, 100 MG PO QHS, (Reported) Montelukast Sodium (Montelukast Sodium) 10 Mg Tablet, 10 MG PO QHS, (Reported) Oxybutynin Chloride (Oxybutynin Chloride ER) 15 Mg Tab.er.24, 15 MG PO QHS, (Reported) Pramipexole Di-HCl (Mirapex) 0.125 Mg Tablet, 0.375 MG PO QHS, (Reported) Sulfamethoxazole/Trimethoprim (Bactrim Ds Tablet) 1 Each Tablet, 1 TAB PO 3XW, (Reported) MON, WED, FRI Torsemide (Torsemide) 5 Mg Tablet, 10 MG PO DAILY, (Reported) Scheduled PRN Acetaminophen (Tylenol Arthritis) 650 Mg Tablet.er, 650 MG PO Q8H PRN for PAIN LEVEL 1-4, (Reported) Cyclobenzaprine HCl (Cyclobenzaprine HCl) 10 Mg Tablet, 10 MG PO TID PRN for MUS EDUARD SPASMS, (Reported) Dexamethasone (Dexamethasone) 0.5 Mg/5 Ml Elixir, 0.5 MG PO QID PRN for MILD DISCOMFORT, (Reported) Hydralazine HCl (Hydralazine HCl) 25 Mg Tablet, 25 MG PO TIDP PRN for sbp>150mmhg Lactulose (Lactulose) 10 Gm/15 Ml Maryellen, 15 ML PO TID PRN for CONSTIPATION, (Reported) Methocarbamol (Methocarbamol) 750 Mg Tablet, 750 MG PO TID PRN for MUSCLE SPASMS, (Reported) Tramadol HCl/Acetaminophen (Tramadol-Acetaminophn 37.5-325) 1 Each Tablet, 1 TAB PO TID PRN for PAIN LEVEL 1-5, (Reported) Allergies Coded Allergies: Contrast Media (Verified Allergy, Severe, tongue swelling, 03/16/19) Penicillins (Verified Allergy, Severe, CAN'T BREATH, 03/16/19) meperidine (Verified Allergy, Severe, CAN'T BREATH, 03/16/19) metoclopramide (Verified Allergy, Severe, tremors, excitability, difficulty breathing, 05/12/20) prochlorperazine (Verified Allergy, Severe, CAN'T BREATH, 11/14/19) TAKES PROMETHAZINE AT HOME; THEREFORE NOT A CLASS EFFECT adhesive tape (Verified Allergy, Intermediate, BLISTERS, 03/16/19) Quinolones (Verified Allergy, Unknown, UNKNOWN, 02/16/19) insulin isophane (NPH) (Verified Allergy, Unknown, SOB, 08/30/21) banana (Verified Adverse Reaction, Mild, VOMITING, 08/19/19) Past Medical History Medical History LUPUS FIBROMYALGIA ARTHRITIS DEPRESSION/ANXIETY HTN, MANDAED BY CARDIOLOGY HLP AFIB WITH RVR, ON FLECAINIDE MANAGED BY CARDIOLOGY, CONTROLLED, 81MG ASPIRIN, NOT ANTICOAGLUATED FOR LOW PLATELETS YOHANA, CPAP H/O KIDNEY STONES DIABETES, TYPE 2 GOAL 7%, LAST A1C 7.5% 08/24, ASSISTANT SURVEYOR SEVEN MILE FIBROCYSTIC BREASTS H/O PANCREATITIS THROMBOCYTOPENIA, S/P PLATELET TRANSFUSIONS AND IVIG VIA [facility] PRIMARY MYLOFIBROSIS RESTLESS LEG NEUROPATHY STEM CELL TRANSPLANT HISTORY OF REACTION TO IVIG GRAFT VS HOST DISEASE Surgical History X 2 HYSTERECTOMY LITHOTRYPSY GLASS REMOVED FROM FOOT LOOP RECORDER 10/21/15 LOOP RECORDER REMOVED 11/02/15 BONE MARROW TRANSPLANT, [facility] 2016 SKIN CANCER REMOVED FROM NOSE 05/30/19 BILATERAL CATARACTS 09/2020 Family History FATHER: 78 YRS, CORONARY ARTERY DISEASE, KIDNEY DISEASE, SCLERODERMA, ANEURYSM, HTN MOTHER: 74 YRS, HTN, CANCER, BREAST, CANCER, COLON GRANDPARENTS - HTN, [place], [place], [place]. Social History * Smoker: Denies Alcohol: Denies Drugs: denies A-FIB/CHADSVASC A-FIB History Current/History of A-Fib/PAF?: No Current PO Anticoag Therapy: No Treatment Reason Anticoagulant not given: Patient refusal Review of Systems Constitutional: Reports: Weakness; Denies: Chills, Fever Eyes: Denies: Pain ENT: Denies: Head Aches Skin: Denies: Rash, Lesions Pulmonary: Denies: Cough Cardiovascular: Denies: Chest Pain, Palpitations Gastrointestinal: Denies: Nausea Genitourinary: Denies: Dysuria Hematologic: Denies: Bruising Endocrine: Denies: Polydipsia Musculoskeletal: Denies: Neck Pain Neurological: Denies: Weakness Psych: Reports: Mood Normal Physical Examination General Exam: Positive: Alert Eye Exam: Positive: PERRLA ENT Exam: Positive: Atraumatic Neck Exam: Positive: Supple, JVD Chest Exam: Positive: Clear to auscultation Heart Exam: Positive: Bradycardic; Negative: Rate Normal Telemetry: Positive: Bradycardia Abdomen Exam: Positive: Normal bowel sounds Extremity Exam: Negative: Clubbing Skin Exam: Positive: Nl turgor and temperature Neuro Exam: Positive: Strength at 5/5 X4 ext Psych Exam: Positive: Oriented x 3 Vital Signs Vital Signs Date Time Temp Pulse Resp B/P (MAP) Pulse Ox O2 Delivery O2 Flow Rate FiO2 08/30/21 11:21 97.6 41 18 116/62 (80) 95 Room Air Laboratory Data Labs 24H Laboratory Tests 2 08/30/21 11:50: Immature Granulocyte % (Auto) 0.3, Neutrophils (%) (Auto) 61.4, Lymphocytes (%) (Auto) 23.3L, Monocytes (%) (Auto) 14.3H, Eosinophils (%) (Auto) 0.1, Basophils (%) (Auto) 0.6, Neutrophils # (Auto) 4.1, Lymphocytes # (Auto) 1.6, Monocytes # (Auto) 1.0H, Eosinophils # (Auto) 0.0, Basophils # (Auto) 0.0, Nucleated Red Blood Cells % (auto) 0.0, Anion Gap 10, Glomerular Filtration Rate 23.2L, Calcium Level 9.5, Magnesium Level 2.1, Total Bilirubin 0.3, Direct Bilirubin < 0.1, Aspartate Amino Transf (AST/SGOT) 22, Alanine Aminotransferase (ALT/SGPT) 40, Alkaline Phosphatase 75, Total Creatine Kinase 70, Creatine Kinase MB < 1.0, Creatine Kinase MB Relative Index 1.43, Troponin I < 0.02, XQ-Dtr-A-Type Natriuretic Peptide 824H, Total Protein 5.9L, Albumin 3.2, Albumin/Globulin Ratio 1.2, Lipase 48L, Thyroid Stimulating Hormone (TSH) 2.190 CBC/BMP Laboratory Tests 08/30/21 11:50 Microbiology Microbiology 08/30/21 Respiratory Virus Panel (PCR) (KT) - Final, Complete 08/30/21 Blood Culture, Received Pending Assessment/Plan Patient is 66 years old female with past medical history of myelofibrosis status post bone marrow transplant, adrenal insufficiency, atrial fibrillation, lupus presented to hospital with generalized weakness. Patient stated that she has been having in her usual state of health until 2 days ago when she started feeling weakness and shortness of breath on exertion. 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 In ER patient was found to have heart rate of 87 no leukocytosis, hemoglobin 9.8, sodium level of 128 creatinine 2.2, BNP 824. EKG was done and showed normal sinus rhythm with first degree of heart block and heart rate 43. Patient denied fever, chills, nausea, vomiting chest pain or palpitations Problems (1) Bradycardia Status: Acute Problem Text: Most likely secondary to polypharmacy I talked to Dr. Tsai he recommended to stop labetalol, diltiazem and continue flecainide Telemetry, echo (2) Atrial fibrillation Status: Chronic Problem Text: EKG showed marked sinus bradycardia with diffuse degree AV block Troponin negative, no chest pain no palpitations Patient is not on the anticoagulation due to subcutaneous bleeding. Patient reported that anticoagulation was stopped by her outside sales Continue to monitor (3) CHF (congestive heart failure) Status: Acute Problem Text: Patient has elevated BNP with plus JVD I's and O's Cardiac diet/diabetes diet Torsemide 10 mg Await echo result (4) SLE (systemic lupus erythematosus) Status: Chronic Problem Text: Continue home meds (5) YOHANA on CPAP Status: Chronic Problem Text: Patient may use her own CPAP (6) Fibromyalgia Status: Chronic Problem Text: Continue home meds (7) Diabetes Status: Chronic Problem Text: Insulin detemir twice daily Insulin sliding scale Diabetes diet Glucose level under control (8) Lupus Status: Chronic (9) CKD (chronic kidney disease) Status: Acute Problem Text: Patient has chronic kidney disease stage IV I stopped chlorthalidone, losartan (10) HTN (hypertension) Status: Chronic Problem Text: Losartan, chlorthalidone on hold due to CKD 4 Hydralazine p.o. 3 times daily with parameters (11) Hyponatremia Status: Acute Problem Text: Most likely secondary to acute CHF exacerbation Fluid restriction BMP every 6 hours We will check urine lites and serum and urine osmolality Plan / VTE VTE Prophylaxis Ordered?: Yes NISREEN ABRAHAM DO Aug 30, 2021 14:31
[2021-08-30 15:18] VITALS: BP 139/71
[2021-08-30 16:08] VITALS: PULSE 56
[2021-08-30] MEDS: HumaLOG INSULIN (NovoLOG) PER UNIT SC SCH (17:00)
[2021-08-30] MEDS: ULTRACET TAB PO PRN (17:01)
[2021-08-30] MEDS: **hydrALAZINE** 10 MG TAB PO SCH (17:03)
--- NOTE | 2021-08-30 18:26 | ECGEPIP ---
[facility] - ED Test Date: 2021-08-30 Pat Name: ROLAND ASHFORD Department: Room: [place] [address] Gender: Female Defence Intelligence Analyst: MANDY : 1955 Requested By: Anita Vang Order Number: [id number] Reading MD: Anita Vang Measurements Intervals Foley Rate: 43 P: 67 NJ: 268 QRS: -17 QRSD: 102 T: 34 QT: 534 QTc: 451 Interpretive Statements Marked sinus bradycardia with 1st degree AV block Nonspecific ST abnormality ivcd decreased rate 08/24/21 Electronically Signed on 08-30-2021 18:26:09 EDT by Anita Vang
[2021-08-30 20:00] VITALS: BP 127/60
[2021-08-30] MEDS ORDERED: LORazepam 1 MG TAB PO SCH (21:00)
[2021-08-30] MEDS ORDERED: FLUCONAZOLE 100 MG TAB PO SCH (21:00)
[2021-08-30] MEDS ORDERED: GABAPENTIN 300 MG CAP PO SCH (21:00)
[2021-08-30] MEDS ORDERED: PRAMIPEXOLE (MIRAPEX) 0.125 MG TAB PO SCH (21:00)
[2021-08-30] MEDS ORDERED: MONTELUKAST 10 MG TAB PO SCH (21:00)
[2021-08-30] MEDS ORDERED: HumaLOG INSULIN (NovoLOG) PER UNIT SC SCH (21:00)
[2021-08-30] MEDS: methocarbamoL 750 MG TAB PO PRN ×2 (21:59→22:33)
[2021-08-30] MEDS: ACYCLOVIR 200 MG CAPSULE PO SCH (22:00)
[2021-08-30] MEDS: LEVEMIR (INSULIN DETEMIR) 1 UNITS/0.01ML SC SCH (22:01)
[2021-08-30] MEDS: HEPARIN SOD (PORCINE) 5000UNITS/ML 1ML VIAL/SYRINGE SC SCH (22:02)
[2021-08-30] MEDS: FLECAINIDE 50MG TABLET PO SCH (22:03)
[2021-08-31] VITALS: BP 149/68
[2021-08-31] MEDS: ULTRACET TAB PO PRN (02:14)
[2021-08-31 04:00] VITALS: BP 143/65
[2021-08-31] MEDS: **hydrALAZINE** 10 MG TAB PO SCH ×5 (05:58→11:49)
[2021-08-31] MEDS: HEPARIN SOD (PORCINE) 5000UNITS/ML 1ML VIAL/SYRINGE SC SCH (06:00)
[2021-08-31 06:10] LABS: HEMATOCRIT 28.6 % (36.0-47.0); HEMOGLOBIN 10.1 g/dl (12.0-15.5); MEAN CORPUSCULAR HEMOGLOBIN 35.4 pg (27.0-33.0); MEAN CORPUSCULAR HGB CONC 35.3 g/dl (32.0-36.5); MEAN CORPUSCULAR VOLUME 100.4 fl (80.0-96.0); PLATELET COUNT, AUTOMATED 181 10^3/uL (150-450); RED BLOOD COUNT 2.85 10^6/uL (4.00-5.40); WHITE BLOOD COUNT 4.3 10^3/uL (4.0-10.0)
[2021-08-31 06:33] LABS: BILIRUBIN,TOTAL 0.3 MG/DL (0.2-1.0); CALCIUM LEVEL 9.7 MG/DL (8.8-10.2); CREATININE FOR GFR 2.25 MG/DL (0.55-1.30); GLOMERULAR FILTRATION RATE 23.3 (>45); MAGNESIUM LEVEL 2.1 MG/DL (1.8-2.4); POTASSIUM SERUM 4.2 MEQ/L (3.5-5.1); TOTAL PROTEIN 6.4 GM/DL (6.4-8.2)
[2021-08-31 08:00] VITALS: BP 141/65; PULSE 66
[2021-08-31] MEDS: HumaLOG INSULIN (NovoLOG) PER UNIT SC SCH ×2 (08:37→11:42)
[2021-08-31] MEDS: LEVEMIR (INSULIN DETEMIR) 1 UNITS/0.01ML SC SCH (08:38)
[2021-08-31] MEDS: FLECAINIDE 50MG TABLET PO SCH (08:39)
[2021-08-31] MEDS ORDERED: HYDR-3910 PO ×2 (08:40→12:58)
[2021-08-31] MEDS: ACYCLOVIR 200 MG CAPSULE PO SCH (08:43)
[2021-08-31] MEDS ORDERED: BUDESONIDE EC 3 MG CAP (ENTOCORT EC) PO SCH (09:00)
[2021-08-31] MEDS ORDERED: TORSEMIDE 10 MG TABLET PO SCH (09:00)
[2021-08-31] MEDS ORDERED: HYDROXYCHLOROQUINE 200 MG TAB PO SCH (09:00)
[2021-08-31] MEDS ORDERED: CHLORTHALIDONE 12.5MG PER 1/2 TABLET PO SCH (09:00)
[2021-08-31 11:49] VITALS: BP 107/57
[2021-08-31 12:00] VITALS: BP 107/57; PULSE 66
--- NOTE | 2021-08-31 19:32 | DS.PDOC ---
Discharge Summary General Date of Admission Aug 30, 2021 at 13:40 Date of Discharge 08/31/21 Discharge Summary DISCHARGE SUMMARY DICTATED JOB # [id number] Vital Signs/I&Os Vital Signs Date Time Temp Pulse Resp B/P (MAP) Pulse Ox O2 Delivery O2 Flow Rate FiO2 08/31/21 12:00 66 08/31/21 12:00 99.0 18 107/57 (74) 98 Room Air I&O- Last 24 Hours up to 6 AM 08/31/21 06:00 Intake Total 200 ml Output Total 1700 ml Balance -1500 ml Laboratory Data Labs 24H Laboratory Tests 2 08/30/21 20:56: Bedside Glucose (Misc Panel) 208H 08/31/21 05:50: Nucleated Red Blood Cells % (auto) 0.0, Anion Gap 8, Glomerular Filtration Rate 23.3L, Calcium Level 9.7, Magnesium Level 2.1, Total Bilirubin 0.3, Aspartate Amino Transf (AST/SGOT) 21, Alanine Aminotransferase (ALT/SGPT) 39, Alkaline Phosphatase 78, Total Protein 6.4, Albumin 3.0L, Albumin/Globulin Ratio 0.9L 08/31/21 11:27: Bedside Glucose (Misc Panel) 247H CBC/BMP Laboratory Tests 08/31/21 05:50 FSBS Laboratory Tests Test 08/30/21 20:56 08/31/21 11:27 Range/Units Bedside Glucose (Misc Panel) 208 247 80-115 MG/DL Microbiology Microbiology 08/30/21 Blood Culture - Preliminary, Resulted No growth after 24 hours . All specim... 08/30/21 Respiratory Virus Panel (PCR) (KT) - Final, Complete 08/30/21 Blood Culture - Preliminary, Resulted No growth after 24 hours . All specim... Discharge Medications Scheduled Acyclovir (Acyclovir) 400 Mg Tab, 400 MG PO BID, (Reported) Budesonide (Budesonide EC) 3 Mg Cap, 3 MG PO DAILY, (Reported) Chlorthalidone (Chlorthalidone) 25 Mg Tablet, 25 MG PO DAILY, (Reported) Flecainide Acetate (Flecainide Acetate) 50 Mg Tablet, 50 MG PO BID, (Reported) Fluconazole (Diflucan) 200 Mg Tab, 200 MG PO QHS, (Reported) Gabapentin (Gabapentin) 300 Mg Capsule, 300 MG PO QHS, (Reported) Hydroxychloroquine Sulfate (Hydroxychloroquine Sulfate) 200 Mg Tablet, 200 MG PO DAILY, (Reported) Insulin Glargine,Hum.rec.anlog (Lantus Solostar) 100 Unit/1 Ml Insuln.pen, 24 UNITS SC QHS, (Reported) Insulin Lispro (Admelog) 100 Unit/1 Ml Vial, 1 DOSE SC AC, (Reported) PER SLIDING SCALE Lorazepam (Lorazepam) 1 Mg Tablet, 1 MG PO QHS, (Reported) CAN TAKE UP TO 1.5MG PRN Losartan Potassium (Losartan Potassium) 100 Mg Tablet, 100 MG PO QHS, (Reported) Montelukast Sodium (Montelukast Sodium) 10 Mg Tablet, 10 MG PO QHS, (Reported) Oxybutynin Chloride (Oxybutynin Chloride ER) 15 Mg Tab.er.24, 15 MG PO QHS, (Reported) Pramipexole Di-HCl (Mirapex) 0.125 Mg Tablet, 0.375 MG PO QHS, (Reported) Sulfamethoxazole/Trimethoprim (Bactrim Ds Tablet) 1 Each Tablet, 1 TAB PO 3XW, (Reported) MON, WED, FRI Torsemide (Torsemide) 5 Mg Tablet, 10 MG PO DAILY, (Reported) Scheduled PRN Acetaminophen (Tylenol Arthritis) 650 Mg Tablet.er, 650 MG PO Q8H PRN for PAIN LEVEL 1-4, (Reported) Cyclobenzaprine HCl (Cyclobenzaprine HCl) 10 Mg Tablet, 10 MG PO TID PRN for MUSCLE SPASMS, (Reported) Dexamethasone (Dexamethasone) 0.5 Mg/5 Ml Elixir, 0.5 MG PO QID PRN for MILD DISCOMFORT, (Reported) Hydralazine HCl (Hydralazine HCl) 25 Mg Tablet, 25 MG PO TIDP PRN for sbp>150mmhg Lactulose (Lactulose) 10 Gm/15 Ml Maryellen, 15 ML PO TID PRN for CONSTIPATION, (Reported) Methocarbamol (Methocarbamol) 750 Mg Tablet, 750 MG PO TID PRN for MUSCLE SPASMS, (Reported) Tramadol HCl/Acetaminophen (Tramadol-Acetaminophn 37.5-325) 1 Each Tablet, 1 TAB PO TID PRN for PAIN LEVEL 1-5, (Reported) Allergies Coded Allergies: Contrast Media (Verified Allergy, Severe, tongue swelling, 03/16/19) Penicillins (Verified Allergy, Severe, CAN'T BREATH, 03/16/19) meperidine (Verified Allergy, Severe, CAN'T BREATH, 03/16/19) metoclopramide (Verified Allergy, Severe, tremors, excitability, difficulty breathing, 05/12/20) prochlorperazine (Verified Allergy, Severe, CAN'T BREATH, 11/14/19) TAKES PROMETHAZINE AT HOME; THEREFORE NOT A CLASS EFFECT adhesive tape (Verified Allergy, Intermediate, BLISTERS, 03/16/19) Quinolones (Verified Allergy, Unknown, UNKNOWN, 02/16/19) insulin isophane (NPH) (Verified Allergy, Unknown, SOB, 08/30/21) banana (Verified Adverse Reaction, Mild, VOMITING, 08/19/19) ELIZABET IBRAHIM MD Aug 31, 2021 19:32
--- NOTE | 2021-09-01 08:45 | ECHO ---
ECHOCARDIOGRAM DATE OF PROCEDURE: 08/30/2021 Age: 66 Gender: Female Height: 65 inches Weight: 209 pounds Body Surface Area: 2.02 meters squared Inpatient/PCU/Room 3212 REFERRING PHYSICIAN: Vidal Leo DO INDICATION: Cardiac dysrhythmias MEASUREMENTS: 2D Measurements: RV - 4.2 cm LV - 6.2 cm Septum 1.2 cm Posterior wall 1.2 cm Aortic Root 3.2 cm LA - 4.8 cm LVEF 70% Doppler Measurements: AV - 1.68 m/s LVOT - 1.09 m/s LVOT diameter 2.0 cm MV-E 123, A 90, E/A ratio 1.4 Early mitral deceleration time 215 msec E prime medial 7.4, A prime medial 5.8, E prime lateral 7.9 Average E/E prime ratio 16.1/PCWP 21.8 mmHg PV 0.84 m/s Pulmonary artery acceleration time 108 msec PASP - 34 mmHg IVC - 2.1 cm COMMENTS: Sinus bradycardia without interventricular conduction disturbance. M-mode and 2-dimensional echocardiography was performed with pulse, continuous wave, color flow, and tissue Doppler studies. Moderately dilated left ventricle with borderline symmetrical hypertrophy and hyperkinetic wall motion. Moderately dilated left atrium with grade 2 left ventricular (LV) diastolic dysfunction and elevated estimated mean left atrial pressure. Right heart chambers upper limits of normal to slightly dilated with normal right ventricular free wall motion and Doppler find of mild pulmonary hypertension. Inferior vena cava (IVC) size upper limits of normal with adequate respiratory collapse against an elevated central venous pressure at this time. Normal aortic diameters. Very mild aortic valvular sclerosis without functional abnormality. Moderate mitral annular calcification but adequate leaflet excursion and no posterior systolic buckling but at least moderate mitral insufficiency. Normal-appearing tricuspid valve with very mild insufficiency. No apparent intracardiac mass. Very small posterior pericardial effusion measuring 0.4 mmHg.
[2021-09-01] MEDS ORDERED: BACTRIM 160MG/800MG DS TAB PO SCH (09:00)
== END 2021-08-31 14:09 | disposition home or self-care (01) | DRG 291 ==
LOC: M ED 11:21 → M ED INP 13:40 → ENRESERV 14:25 → M PCU 15:17
PROVIDERS: ADMIT Internal Medicine; ATTEND Internal Medicine
DX: I13.0 Hypertensive heart and chronic kidney disease with heart failure and stage 1 through stage 4 chronic kidney disease, or unspecified chronic kidney disease (principal); I50.33 Acute on chronic diastolic (congestive) heart failure; N18.4 Chronic kidney disease, stage 4 (severe); E87.1 Hypo-osmolality and hyponatremia; Z94.81 Bone marrow transplant status; I48.20 Chronic atrial fibrillation, unspecified; R00.1 Bradycardia, unspecified; M79.7 Fibromyalgia; M19.90 Unspecified osteoarthritis, unspecified site; F41.9 Anxiety disorder, unspecified; F32.A Depression, unspecified; E78.5 Hyperlipidemia, unspecified; G47.33 Obstructive sleep apnea (adult) (pediatric); E11.42 Type 2 diabetes mellitus with diabetic polyneuropathy; G25.81 Restless legs syndrome; Z90.79 Acquired absence of other genital organ(s); Z98.41 Cataract extraction status, right eye; Z98.42 Cataract extraction status, left eye; E11.22 Type 2 diabetes mellitus with diabetic chronic kidney disease; Z79.82 Long term (current) use of aspirin; Z79.4 Long term (current) use of insulin; Z79.899 Other long term (current) drug therapy; Z20.822 Contact with and (suspected) exposure to COVID-19; Z91.041 Radiographic dye allergy status; Z88.0 Allergy status to penicillin; Z91.040 Latex allergy status; Z88.8 Allergy status to other drugs, medicaments and biological substances; Z91.018 Allergy to other foods; M32.9 Systemic lupus erythematosus, unspecified; T44.8X5A Adverse effect of centrally-acting and adrenergic-neuron-blocking agents, initial encounter; T46.1X5A Adverse effect of calcium-channel blockers, initial encounter

== ENCOUNTER → 2021-09-06 | Outpatient (REF) | payer MEDICARE, OTHER ==
[~2021-09-06] MED LIST changes: +ACET650T61 PO; +HYDR-3910 PO; +LOSA100T50 PO
[2021-09-06 14:01] LABS: BASO % 0.4 % (0.0-1.0); HEMATOCRIT 28.2 % (36.0-47.0); HEMOGLOBIN 9.3 g/dl (12.0-15.5); LYMPH # 1.3 10^3/uL (1.5-5.0); LYMPH % 18.5 % (24.0-44.0); MEAN CORPUSCULAR HEMOGLOBIN 35.1 pg (27.0-33.0); MEAN CORPUSCULAR VOLUME 106.4 fl (80.0-96.0); MONO # 0.7 10^3/uL (0.0-0.8); MONO % 10.6 % (2.0-8.0); NEUTROPHILS # 4.8 10^3/uL (1.5-8.5); NEUTROPHILS % 70.4 % (36.0-66.0); PLATELET COUNT, AUTOMATED 167 10^3/uL (150-450); RED BLOOD COUNT 2.65 10^6/uL (4.00-5.40); WHITE BLOOD COUNT 6.9 10^3/uL (4.0-10.0)
[2021-09-06 14:17] LABS: ALBUMIN 3.2 GM/DL (3.2-5.2); BILIRUBIN,TOTAL 0.3 MG/DL (0.2-1.0); CREATININE FOR GFR 2.74 MG/DL (0.55-1.30); GLOMERULAR FILTRATION RATE 18.6 (>45); MAGNESIUM LEVEL 2.8 MG/DL (1.8-2.4); POTASSIUM SERUM 3.8 MEQ/L (3.5-5.1); TOTAL PROTEIN 5.6 GM/DL (6.4-8.2)
== END ==
LOC: M LAB REF 11:49
PROVIDERS: ATTEND Internal Medicine
DX: Z94.81 Bone marrow transplant status (principal)

== ENCOUNTER 2021-09-21 17:44 | Inpatient (IN) | payer MEDICARE, OTHER ==
[~2021-09-21] VITALS: Ht 165.1 cm; Wt 87.3 kg
[2021-09-21] MEDS ORDERED: CLOT1CRE56 TOP (18:16)
[2021-09-21] MEDS ORDERED: SENN-80 PO (18:16)
[2021-09-21] MEDS ORDERED: SERT-141 PO ×2 (18:16→23:23)
[2021-09-21] MEDS ORDERED: DILT240C28 PO ×2 (18:16→23:23)
[2021-09-21] MEDS ORDERED: ASPI81CH33 PO (18:16)
[2021-09-21] MEDS ORDERED: FOLI1TAB11 PO ×2 (18:16→23:23)
[2021-09-21] MEDS ORDERED: HYDR1CRE30 TOP (18:16)
[2021-09-21] MEDS ORDERED: DOCU100C16 PO (18:16)
[2021-09-21] MEDS ORDERED: TACR1CAP3 PO ×2 (18:16→23:23)
[2021-09-21] MEDS ORDERED: LIDO2SOL17 PO (18:16)
[2021-09-21] MEDS ORDERED: ADME100I2 SC (18:16)
[2021-09-21] MEDS ORDERED: HYDR-3713 PO ×2 (18:16→23:23)
--- NOTE | 2021-09-21 19:26 | REP ---
INDICATION: CHEST PAIN. COMPARISON: Portable chest, 08/30/2021. TECHNIQUE: Upright AP portable chest image was obtained. FINDINGS: The lungs are clear. There is calcific vascular disease of the thoracic aorta. The heart borders mediastinum and pulmonary vascular pattern are otherwise unremarkable. The upper abdominal bowel gas pattern is normal. There are no bony abnormalities of the chest. IMPRESSION: No evidence of acute cardiopulmonary pathology. <Electronically signed by Ameya Monaco > 09/21/211921
[2021-09-21 19:56] LABS: BASO % 0.5 % (0.0-1.0); EOS # 0.3 10^3/uL (0.0-0.5); EOS % 4.5 % (0.0-3.0); HEMATOCRIT 36.1 % (36.0-47.0); HEMOGLOBIN 12.4 g/dl (12.0-15.5); LYMPH # 1.8 10^3/uL (1.5-5.0); LYMPH % 27.7 % (24.0-44.0); MEAN CORPUSCULAR HEMOGLOBIN 34.6 pg (27.0-33.0); MEAN CORPUSCULAR HGB CONC 34.3 g/dl (32.0-36.5); MEAN CORPUSCULAR VOLUME 100.8 fl (80.0-96.0); MONO # 0.8 10^3/uL (0.0-0.8); MONO % 12.6 % (2.0-8.0); NEUTROPHILS # 3.6 10^3/uL (1.5-8.5); NEUTROPHILS % 54.5 % (36.0-66.0); PLATELET COUNT, AUTOMATED 192 10^3/uL (150-450); RED BLOOD COUNT 3.58 10^6/uL (4.00-5.40); WHITE BLOOD COUNT 6.6 10^3/uL (4.0-10.0)
[2021-09-21 20:31] LABS: CK-MB VALUE MASS < 1.0 NG/ML (<3.6); CPK CREATINE PHOSPHOKINASE 169 U/L (26-192); MB/CK RELATIVE INDEX 0.59 (< OR =4); TROPONIN I < 0.02 NG/ML (< 0.10)
[2021-09-21 20:40] LABS: ALBUMIN 3.9 GM/DL (3.2-5.2); ALT/SGPT 47 U/L (12-78); BILIRUBIN,DIRECT < 0.1 MG/DL (0.0-0.2); BILIRUBIN,TOTAL 0.4 MG/DL (0.2-1.0); BLOOD UREA NITROGEN 59 MG/DL (7-18); CALCIUM LEVEL 14.7 MG/DL (8.8-10.2); CARBON DIOXIDE LEVEL 30 MEQ/L (21-32); CHLORIDE LEVEL 94 MEQ/L (98-107); CREATININE FOR GFR 2.74 MG/DL (0.55-1.30); FREE T4 1.01 NG/DL (0.76-1.46); GLOMERULAR FILTRATION RATE 18.6 (>45); GLUCOSE, FASTING 163 MG/DL (70-100); MAGNESIUM LEVEL 2.9 MG/DL (1.8-2.4); PHOSPHORUS LEVEL 3.4 MG/DL (2.5-4.9); POTASSIUM SERUM 3.9 MEQ/L (3.5-5.1); SODIUM LEVEL 131 MEQ/L (136-145); TOTAL PROTEIN 7.2 GM/DL (6.4-8.2)
[2021-09-21] MEDS ORDERED: NS 1,000 ML IV SCH (20:45)
--- NOTE | 2021-09-21 21:17 | HPEPDOC ---
[facility] Medical History & Physical Date of Admission Sep 21, 2021 Date of Service: Sep 21, 2021 Other Provider Alexis Hernandez MD Attending Physician: ZO BIRMINGHAM MD History and Physical TIME OF SERVICE: 1040PM CHIEF COMPLAINT: abnormal labs HISTORY OF PRESENT ILLNESS: is a 66 yr old F who was sent by her Oncology team (at [facility]) to the hospital for evaluation of a serum calcium that was 15. She admits to having a poor appetite, feeling like there is a brick in her stomach, having neck pain and shoulder pain, feeling dizzy, feeling tired and falling asleep easily. In addition to sleeping at night she having been having 5H naps. 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 HOME MEDICATIONS: Please see below. PHYSICAL EXAMINATION: Vital Signs Date Time Temp Pulse Resp B/P (MAP) Pulse Ox O2 Delivery O2 Flow Rate FiO2 09/21/21 17:46 97.2 85 16 183/80 (114) 98 09/21/21 22:59 Room Air GENERAL APPEARANCE: well-nourished and developed / NAD HEENT: EOMI CARDIOVASCULAR: RRR/NMRG LUNGS: CTAB on RA ABDOMEN: distended /soft / she doesnt grimace w palpation MUSCULOSKELETAL: NCAT / SOLOMON x/ 4 extremities INTEGUMENT: slightly pale /not diaphoretic or flushed NEUROLOGICAL: CN 2-12 grossly intact / speech not dysarthric PSYCHIATRIC: A&O / able to understand and follow all commands LABORATORY DATA: IMAGING: Chest xray IMPRESSION: No evidence of acute cardiopulmonary pathology. MICROBIOLOGY: COVID neg ECG: no acute ST elevations, 1st degree AV block QTC 475 ASSESSMENT: Ms. 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 PLAN: 1 Severe Hypercalcemia -This is classified as severe bc her Ca >14 -She doesnt have YUNG or AMS Plan: telemetry to monitor for V tach or V fib and V ectopy / NS @ 200 ml/H / f/u TSH, PTH, Phosphorus & SPEP (to screen for MM bc she also has renal failure) / stop chlorthalidone / c/w Torsemide / low Ca diet / start pamidronate / low calcium diet / the day time team can consider consulting Nephrology during the day to discuss whether the patient is a candidate for nasal calcitonin 2 HTN Crisis -Per the pt c/o transient chest pain -Likely due to hypercalcemia -At baseline she has resistant HTN Plan: IV Labetalol/ resume Torsemide, Diltiazem and Losartan / if her BP is not well controlled after receiving BB and night time meds will order Clonidine 3 Mild Hyponatremia -Likely 2/2 diuretics Plan: f/u serum osmo, U osmo, U Na / NS 4 Hepatocellular Transaminitis -Likely 2/2 fatty liver Plan: f/u w PCP for Hep panel and Liver US 5 CKD 4 -Cr at baseline Plan; f/u BMP /screen for MM w SPEP 6 IDDM Plan: diabetic diet / f/u accuchecks / hypoglycemia protocol / sliding scale insulin / c/w glargine 100 units QHS / f/u A1C / her PCP may consider out pt Endo referral to switch the patient from basal bolus injection to continuous subcutaneous insulin infusion which has been shown to produced small improvements in A1C, improve QOL and reduce episodes of severe hypoglycemia 7 Unspecified A Fib Her CHADSVASc score is 3 but she is not on a DOAC or warfarin Plan: c/w Flecainide & Diltiazem / the day time team may consider touching base with her PCP in the meanwhile we will start her on a heparin drip 8 SLE Plan: Gabapentin 9 Fibromyalgia / Anxiety, Depression Plan: Gabapentin, Lorazepam, Sertraline, Hydrocodone/Acetaminophen w stool softerners 10 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 Plan: Tacrolimus 11 RLS Plan: Pramipexole 12 Class 2 obesity -complicates care 13 YOHANA -own CPAP DVT n/a on Heparin drip bc of A Fib Dispo: home after at least 2 midnights stay Home Medications Scheduled Acyclovir (Acyclovir) 400 Mg Tab, 400 MG PO BID Aspirin (Aspirin EC) 81 Mg Tablet.dr, 81 MG PO DAILY Budesonide (Budesonide EC) 3 Mg Cap, 3 MG PO DAILY Chlorthalidone (Chlorthalidone) 25 Mg Tablet, 25 MG PO DAILY Diltiazem HCl (Dilt-Xr) 240 Mg Cap.er.deg, 240 MG PO DAILY Docusate Sodium (Colace) 100 Mg Capsule, 200 MG PO BID Flecainide Acetate (Flecainide Acetate) 50 Mg Tablet, 50 MG PO BID Fluconazole (Diflucan) 200 Mg Tab, 200 MG PO QHS Folic Acid (Folic Acid) 1 Mg Tablet, 1 MG PO DAILY Gabapentin (Gabapentin) 300 Mg Capsule, 300 MG PO QHS Hydroxychloroquine Sulfate (Hydroxychloroquine Sulfate) 200 Mg Tablet, 200 MG PO DAILY Insulin Glargine,Hum.rec.anlog (Lantus Solostar) 100 Unit/1 Ml Insuln.pen, 24 UNITS SC QHS Insulin Lispro (Admelog Solostar) 100 Unit/1 Ml Insuln.pen, 1 DOSE SC AC PER SLIDING SCALE Lorazepam (Lorazepam) 1 Mg Tablet, 1 MG PO QHS Losartan Potassium (Losartan Potassium) 100 Mg Tablet, 100 MG PO QHS Montelukast Sodium (Montelukast Sodium) 10 Mg Tablet, 10 MG PO QHS Oxybutynin Chloride (Oxybutynin Chloride ER) 15 Mg Tab.er.24, 15 MG PO QHS Pramipexole Di-HCl (Mirapex) 0.125 Mg Tablet, 0.375 MG PO QHS Sennosides (Senna) 8.6 Mg Tablet, 1 TAB PO BID Sertraline Hcl (Sertraline HCl) 50 Mg Tablet, 50 MG PO QHS Sulfamethoxazole/Trimethoprim (Bactrim Ds Tablet) 1 Each Tablet, 1 TAB PO 3XW MON, WED, FRI Tacrolimus (Tacrolimus) 1 Mg Capsule, 1 MG PO BID Torsemide (Torsemide) 5 Mg Tablet, 10 MG PO DAILY Scheduled PRN Acetaminophen (Tylenol Arthritis) 650 Mg Tablet.er, 650 MG PO Q8H PRN for MILD PAIN (PS 1-4) Clotrimazole (Clotrimazole) 1% 28GM Cream..g., 1 DOSE TOP BID PRN for ITCHING Cyclobenzaprine HCl (Cyclobenzaprine HCl) 10 Mg Tablet, 10 MG PO TID PRN for MUSCLE SPASMS Dexamethasone (Dexamethasone) 0.5 Mg/5 Ml Elixir, 0.5 MG PO QID PRN for MILD DISCOMFORT Hydrocodone/Acetaminophen (Hydrocodone-Acetamin 5-325 mg) 1 Each Tablet, 1 TAB PO Q6H PRN for SEVERE PAIN (PS 8-10) MDD 4 Hydrocortisone (Hydrocortisone) 28 Gm Cream..g., 1 DOSE EXT TID PRN for REDNESS/ITCHING APPLIES TO FACE AND FOREHEAD Lactulose (Lactulose) 10 Gm/15 Ml Maryellen, 30 ML PO TID PRN for CONSTIPATION Lidocaine HCl (Lidocaine HCl Viscous) 15 Ml Solution, 5 ML SSP QID PRN for MOUTH SORES Lorazepam (Lorazepam) 1 Mg Tablet, 0.5 MG PO QHS PRN for INSOMNIA Tramadol HCl/Acetaminophen (Tramadol-Acetaminophn 37.5-325) 1 Each Tablet, 1 TAB PO TID PRN for MODERATE PAIN (PS 5-7) Allergies Coded Allergies: Contrast Media (Verified Allergy, Severe, tongue swelling, 03/16/19) Penicillins (Verified Allergy, Severe, CAN'T BREATH, 03/16/19) meperidine (Verified Allergy, Severe, CAN'T BREATH, 03/16/19) metoclopramide (Verified Allergy, Severe, tremors, excitability, difficulty breathing, 05/12/20) prochlorperazine (Verified Allergy, Severe, CAN'T BREATH, 11/14/19) TAKES PROMETHAZINE AT HOME; THEREFORE NOT A CLASS EFFECT adhesive tape (Verified Allergy, Intermediate, BLISTERS, 03/16/19) Quinolones (Verified Allergy, Unknown, UNKNOWN, 02/16/19) hydralazine (Verified Allergy, Unknown, eye and lip swelling, 09/22/21) insulin isophane (NPH) (Verified Allergy, Unknown, SOB, 08/30/21) banana (Verified Adverse Reaction, Mild, VOMITING, 08/19/19) A-FIB/CHADSVASC A-FIB History Current/History of A-Fib/PAF?: Yes Current PO Anticoag Therapy: No Age/Risk Factor Scoring CHADSVASC: CHADSVASC Response (Comments) Value Gender Risk Factor Female 1 Hx of HTN Yes 1 Hx of Diabetes Yes 1 Total 3 Treatment Treatment ordered: Heparin IV bridge Therapy ZO BIRMINGHAM MD Sep 21, 2021 21:17
--- OUTSIDE RECORDS SUMMARY | 2021-09-21 21:30 | CCD | Continuity of Care Document ---
Author 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 Unknown Address Unknown Phone Unavailable Care Team Providers Care Finish Production Manager Name Role Phone Ulysses James DO AUTM [phone] Piter Au MD AUTM [phone] Miguel A Cisse DO AUTM [phone] Blaine Damon MD AUTM [phone] Gold Oconnor MD AUTM [phone] Christina Donaldson MD AUTM [phone] Alexis Hernandez MD AUTM [phone] Vika Carrero MD AUTM Anthony Dias MD AUTM [phone] Debra Wade MD AUTM [phone] Problems Active Problems Provider Date Essential hypertension Krzysztof Tsai MD Onset: 5 Obesity Krzysztof Tsai MD Onset: 11/03/2015 Paroxysmal atrial fibrillation Krzysztof Tsai MD Onset: 1 Syncope and collapse Krzysztof Tsai MD Onset: 11/03/2015 Paroxysmal atrial fibrillation Krzysztof Tsai MD Onset: 0 06/08/2016 Pure hypercholesterolemia Krzysztof Tsai MD Onset: 2016 Dietary management surveillance Krzysztof Tsai MD Onset: 09/01/2017 Atrial flutter Krzysztof Tsai MD Onset: 09/01/2017 Disorder of magnesium metabolism Krzysztof Tsai MD Onset: 09/01/2017 Hypertensive heart disease without congestive heart fa ilure Krzysztof Tsai MD Onset: 11/20/2018 Hypo-osmolality and or hyponatremia Krzysztof Tsai MD Ons et: 11/20/2018 Edema Krzysztof Tsai MD Onset: 02/13/2019 Electrocardiogram abnormal [facility] Onset: 05/2021 Social History Type Date Description Comments Sex Unknown ETOH Use Does not consume alcohol Tobacco Use Start: Unknown Patient has never smoked Smoking Status Reviewed: 02/10/21 Patient has never smoked Exercise Type/Frequency Walks daily weather dependent 1/4 mile Exercise Limitations Orthopedic Problem Exercise Limitations Fibromyalgia Exercise Limitations Lupus Allergies and adverse reactions Active Allergies Criticality Reaction | Severity Comments Date Penicillin Unable to assess criticality Anaphylaxis 07/14/2015 Demerol Unable to assess criticality Anaphylaxis 07/14/2015 Compazine Unable to assess criticality Anaphylaxis 07/14/2015 Quinolones Unable to assess criticality 11/03/2015 Contrast Dye Unable to assess criticality tongue swell s/unable to breath 06/28/2017 Adhesives Unable to assess criticality blisters 06/28/2017 Reglan Unable to assess criticality ton mary anne swelling, difficulty breathing, violent body shaking 02/09/2021 Medications Active Medications SIG Qnty Indications Ordering Provide r Date Amlodipine Besylate 5mg Tablets 1 by mouth every day 90tabs Reyes Santillan MD 03/01/2021 Iron (Ferrous Gluconate) 256(28Fe) mg Tablets 1 by mouth every day Unknown 021 Chlorthalidone 25mg Tablets 1/2 by mouth every day Unknown 02/09/2021 Tramadol Hydrochloride/Acetaminophen 37.5-325mg Tablets 1 by mouth 3 times daily as needed MDD=3 Unknown 02/09/2021 Pramipexole Dihydrochloride 0.125mg Tablets 1 by mouth 3 times daily Unknown 04/2021 Montelukast Sodium 10mg Tablets 1 by mouth every day Unknown 02/09/2021 Xylocaine 2% Solution swish and spit 5 mL as needed Unknown 02/09/2021 Hydroxychloroquine Sulfate 200mg T ablets 1 by mouth once a day Unknown 02/09/2021 Hydrocortisone 1% Cream apply 1 unit topically as directed to affected area 2-3 times daily as needed Unknown 02/09/2021 Folic Acid 1mg Tablets 1 by mouth every day Unknown 02/09/2021 Dexamethasone 0.5mg/5ML Solution swish and spit 5 mL by mouth 4 times daily Unknown 02/09/2021 Clotrimazole 1% Cream apply to affected area twice daily as directed Unknown 04/2021 Admelog Solostar 100 Unit/ML Solution Pen-Inject inject as directed 3 times daily on sliding scale Unknown 02/09/2021 Repaglinide 2mg Tablets 1 by mouth three times daily Unknown 02/09/2021 Prednisone 5mg Tablets 1 by mouth once daily for acute illness, once resolved stop taking Unknown 02/09/2021 Oxybutynin Chloride ER 15mg Tablets ER 24HR 1 by mouth once a day Unknown 2020 Diltiazem CD 240mg Caps ER 24HR 1 by mouth once a day I10 Unknown 02/09/2021 R60.0 Aspirin [address] 1 by mouth every day Unknown 02/09/2021 Acyclovir 400mg Tablets 1 by mouth twice daily Unknown 02/09/2021 Labetalol HCL 100mg Tablets 1 by mouth twice a day 60tabs Reyes Santillan MD 02/09/2021 Escitalopram Oxalate 5mg Tablets 1 by mouth every day Debra Wade MD 02/09/2021 Vitamin D3 50mcg (2000 Ut) Tablets 1 by mouth every day Unknown 02/09/2021 Budesonide/Formoterol Fumarate Dihydrate 160-4.5mcg/Act Aerosol 2 puff twice a day Unknown 02/09/2021 Losartan Potassium 100mg Tablets 1 by mouth every night at bedtime 90tabs I10 Soraya Choi 04/06/2020 Bactrim 400-80mg Tablets 1 by mouth M/W/F Unknown 03/11/2019 Bystolic 10mg Tablets take one tablet by mouth every day 90tabs I10 Reyes Santillan MD 02/13/2019 I48.0 Lorazepam 1mg Tablets 1 by mouth at bedtime as needed Unknown 02/12/2019 Lantus Solostar 100U nit/ML Solution Pen-Inject as directed by primary Unknown 12/24 Tacrolimus 1mg Capsules 1.5 mg po twice a day Unknown 12/24/2018 Ventolin HFA 108(90Base) mcg/Act A erosol 2 puffs as needed Unknown 11/19/[address] Part 1 by mouth twice a day Unknown 06/17/2018 Flecainide Acetate 50mg Tablets Take One Tablet By Mouth Twice A Day 60tabs Krzysztof Tsai MD 06/17/2018 Gabapentin 300mg Capsules 1 by mouth at bedtime Unknown 05/24/2018 Lactulose 20GM/30ML Solution 30 milliliters by mouth three times daily Unknown 05/24/2018 Docusate Sodium 100mg Capsules 1 by mouth twice a day Unknown 01/14/2018 Slow-Mag 71.5-119mg Tablets DR 2 tablets bid E83.42 Krzysztof Tsai MD 09/01/2017 Senna Laxative 8.6mg Tablets take 1 tab twice daily as needed Unknown 08/31/2017 One Daily Multivitamin Women Tabl ets 1 po once a day Unknown 06/27/2017 Artificial Tears 1.4% Solution 1gtt both eyes three times a day, as needed Unknown 06/27/2017 Acetaminophen 325mg Tablets 1-2 every 6 hours as needed Unknown 06/27/2017 Diflucan 200mg Tablets 1 by mouth at night Unknown 06/27/2017 Promethazine HCL 12.5mg Tablets 1 by mouth daily as needed every 6 hours Unknown Cyclobenzaprine HCL 10mg Tablets 1 by mouth three times a day as needed Unknown 11/02/2015 Torsemide 10mg Tablets 1 by mouth every day I10 Unknown Immunizations Description No Information Available Vital Signs Date Vital Result Comment 02/10/2021 10:56am Weight 222.00 lb Home Weight 220lb Height 65 inches 5'5" BMI (Body Mass Index) 36.9 kg/m2 Heart Rate 61 /min BP Systolic Sitting 142 mmHg Ra, large cuff BP Diastolic Sitting 78 mmHg Ra, large cuff BP Systolic Lying Down 148 mmHg Ra, large cuff BP Diastolic Lying Down 80 mmHg Ra, large cuff BP Systolic Standing 138 mmHg Ra, large cuff BP Diastolic Standing 78 mmHg Ra, large cuff 03/25/2019 11:11am Weight 228.00 lb Home Weight 224lb 4oz Height 65 inches 5'5" BMI (Body Mass Index) 37.9 kg/m2 Heart Rate 70 /min Laying HR 66, Standi ng HR 73 BP Systolic Sitting 164 mmHg Omron adult cuff, LA BP Diastolic Sitting 84 mmHg Omron adult cuff, L A BP Systolic Lying Down 178 mmHg BP Diastolic Lying Down 89 mmHg BP Systolic Standing 161 mmHg omron adult cuff BP Diastolic Standing 81 mmHg omron adult cuff Results Test Acquired Date Facility Test Result H/L Range Note CBC without Differential 08/31/2021 [facility] - not inter faced (315)- - White Blood Count 4.3 Low 5.0-10.0 Red Blood Count 2.85 Low 4.00-5.40 Platelets 181 172-450 Hemoglobin 10.1 Hematocrit 28.6 CMP 08/31/2021 [facility] - not interfaced (315)- - Albumin Serum/Plasma 3.0 Alt - SGPT 39 Calcium Ser/Plasma Mass/Vol 9.7 Carbon Dioxide Ser/Plasm 24 Chloride Serum/Plasma 99 Alkaline Phosphatase 78 Potassium 4.2 Protein Total 6.4 Sodium 131 Ast - Sgot 21 BUN - Urea Nitrogen 39 Glucose 168 High 83-110 Creatinine For GFR 2.25 Laboratory test finding 08/30/2021 [facility] - not interf aced (315)- - Thyroid Stimulating Hormone 2.190 Procedures Description No Information Available Medical Devices Description No Information Available Encounters Description No Information Available Assessments Description No Information Available Plan of Treatment Future Appointment(s):* 09/06/2021 10:15 am - [facility] at Main Office 02/10/2021 - [facility]* I10 Essential (primary) hypertension* New Labs:* BMP, Ordered: 02/10/21 * Recommendations:* Continue losartan and amlodipine at the current dosages Advised patient to please monitor blood pressures at home and to alert our office for readings >140/>90 or <110/<60 * I48.0 Paroxysmal atrial fibrillation* Recommendations:* Continue Bystolic and aspirin at the current dosages Patient agreeable to contact us with any episodes of tachycardia or palpitations * I48.3 Typical atrial flutter * R55 Syncope and collapse* Recommendations:* No further evaluation is needed at this time Advised patient to seek medical attention with the onset of any additional episodes of syncope * R60.0 Localized edema* Recommendations:* Continue torsemide as directed by nephrology Please alert the office with the onset of any worsening lower extremity swelling * E78.00 Pure hypercholesterolemia, unspecified* New Labs:* Lipid Panel, Ordered: 02/10/21 * Recommendations:* Please obtain fasting labs * R94.31 Abnormal electrocardiogram [ECG] [EKG]* Recommendations:* No further evaluation is needed at this time. * E66.09 Other obesity due to excess calories * Z71.3 Dietary counseling and surveillance* Recommendations:* Recommended for patient to follow a more whole food diet. Advised patient to avoid overly processed foods and packaged foods. Advised patient to avoid sodas, juices and other liquid calories. Recommended at least 30 minutes of exercise 3 days a week. * All * Follow up:* Follow up in 6 months Functional Status Functional Condition Comment Date Status Independent with ambulating uses 4 wheel walker with seat and avitia nd brakes Active Requires assistance with bathing getting in and out of tub with standby assistance if needed Active Requires assistance with dressing Active Independent with feeding Active Independent with grooming Active Independent with standing Active Independent with toileting Activ e Mental Status Description No Information Available Referrals Description No Information Available
--- OUTSIDE RECORDS SUMMARY | 2021-09-21 21:30 | CCD | Continuity of Care Document ---
Author Author Milana BERNSTEIN [place] 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 Unknown Address [address] [place] [address], [place] [address] Phone [phone] Care Team Providers Care County Coroner Name Role Phone Ulysses James DO AUTM [phone] Piter Au MD AUTM [phone] Miguel A Cisse DO AUTM [phone] Blaine Damno MD AUTM [phone] Gold Oconnor MD AUTM [phone] Christina Donaldson MD AUTM [phone] Alexis Hernandez MD AUTM [phone] Vika Carrero MD AUTM Anthony Dias MD AUTM [phone] Debra Wade MD AUTM [phone] Problems Active Problems Provider Date Essential hypertension [...] H/L Range Note CBC without Differential 08/31/2021 [facility] - not inter faced (315)- - White Blood Count 4.3 Low 5.0-10.0 Red Blood Count 2.85 Low 4.00-5.40 Platelets 181 172-450 Hemoglobin 10.1 Hematocrit 28.6 CMP 08/31/2021 [facility] - not interfaced (315)- - Albumin Serum/Plasma 3.0 Alt - SGPT 39 Calcium Ser/Plasma Mass/Vol 9.7 Carbon Dioxide Ser/Plasm 24 Chloride Serum/Plasma 99 Alkaline Phosphatase 78 Potassium 4.2 Protein Total 6.4 Sodium 131 Ast - Sgot 21 BUN - Urea Nitrogen 39 Glucose 168 High 83-110 Creatinine For GFR 2.25 Laboratory test finding 08/30/2021 [facility] - not interf aced (315)- - Thyroid Stimulating Hormone 2.190 Procedures Description No Information Available Medical Devices Description No Information Available Encounters Description No Information Available Assessments Description No Information Available Plan of Treatment 02/10/2021 - [facility]* I10 Essential (primary) hypertension* Recommendations:* Continue losartan and amlodipine at the [...] extremity swelling * E78.00 Pure hypercholesterolemia, unspecified* Recommendations:* Please obtain fasting labs * R94.31 [...]
--- OUTSIDE RECORDS SUMMARY | 2021-09-21 21:30 | CCD | Continuity of Care Document ---
Author 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 Unknown Address Unknown Phone Unavailable Care Team Providers Care Drop Press Hand Name Role Phone Ulysses James DO AUTM [phone] Piter Au MD AUTM [phone] Miguel A Cisse DO AUTM [phone] Blaine Damon MD AUTM [phone] Gold Oconnor MD AUTM [phone] Christina Donaldson MD AUTM [phone] Alexis Hernandez MD AUTM [phone] Vika Carrero MD AUTM [phone] Anthony Dias MD AUTM [phone] Debra Wade MD AUTM [phone] Problems Active Problems Provider Date Essential hypertension [...] Date Facility Test Result H/L Range Note Laboratory test finding 08/30/2021 [facility] - not interf aced (315)- - Thyroid [...]
--- OUTSIDE RECORDS SUMMARY | 2021-09-21 21:30 | CCD | Continuity of Care Document ---
Author Author Milana TSAI MD 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 Unknown Address [address] [place] [address], [facility] [place] [address] Phone [phone] Care Team Providers Care Hvac Service Manager Name Role Phone Ulysses James DO AUTM [phone] Piter Au MD AUTM [phone] Miguel A Cisse DO AUTM [phone] Blaine Damon MD AUTM [phone] Gold Oconnor MD AUTM [phone] Christina Donaldson MD AUTM [phone] Alexis Hernandez MD AUTM [phone] Vika Carrero MD AUTM Anthony Dias MD AUTM [phone] Debra Wade MD AUTM [phone] Problems Active Problems Provider Date Essential hypertension [...] H/L Range Note CBC without Differential 08/31/2021 [facility] - not inter faced (315)- - White Blood Count 4.3 Low 5.0-10.0 Red Blood Count 2.85 Low 4.00-5.40 Platelets 181 172-450 Hemoglobin 10.1 Hematocrit 28.6 CMP 08/31/2021 [facility] - not interfaced (315)- - Albumin Serum/Plasma 3.0 Alt - SGPT 39 Calcium Ser/Plasma Mass/Vol 9.7 Carbon Dioxide Ser/Plasm 24 Chloride Serum/Plasma 99 Alkaline Phosphatase 78 Potassium 4.2 Protein Total 6.4 Sodium 131 Ast - Sgot 21 BUN - Urea Nitrogen 39 Glucose 168 High 83-110 Creatinine For GFR 2.25 Laboratory test finding 08/30/2021 [facility] - not interf aced (315)- - [...]
--- OUTSIDE RECORDS SUMMARY | 2021-09-21 21:33 | CCD ---
Author Author [facility] 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 [facility] Address Unknown Phone Unavailable Care Team Providers Care Information Specialist Name Role Phone Rosendo Pelayo MD Unavailable [...] WEDOW, AILEEN Unavailable Unavailable BUMBANAC, A STAR VEGETABLE WORKER Unavailable Unavailable BUMBANAC, A STAR VEGETABLE WORKER Unavailable Unavailable BUMBANAC, A STAR VEGETABLE WORKER Unavailable Unavailable BUMBANAC, A STAR VEGETABLE WORKER Unavailable Unavailable BUMBANAC, A STAR VEGETABLE WORKER Unavailable Unavailable BUMBANAC, A STAR VEGETABLE WORKER Unavailable Unavailable BUMBANAC, A STAR VEGETABLE WORKER Unavailable Unavailable BUMBANAC, A STAR VEGETABLE WORKER Unavailable Unavailable BUMBANAC, A STAR VEGETABLE WORKER Unavailable Unavailable BUMBANAC, A STAR VEGETABLE WORKER Unavailable Unavailable BUMBANAC, A STAR VEGETABLE WORKER Unavailable Unavailable BUMBANAC, A STAR VEGETABLE WORKER Unavailable Unavailable BUMBANAC, A STAR VEGETABLE WORKER Unavailable Unavailable BUMBANAC, A STAR VEGETABLE WORKER Unavailable Unavailable BUMBANAC, A STAR VEGETABLE WORKER Unavailable Unavailable BUMBANAC, A STAR VEGETABLE WORKER Unavailable Unavailable BUMBANAC, A STAR VEGETABLE WORKER Unavailable Unavailable BUMBANAC, A STAR VEGETABLE WORKER Unavailable Unavailable BUMBANAC, A STAR VEGETABLE WORKER Unavailable Unavailable BUMBANAC, A STAR VEGETABLE WORKER Unavailable Unavailable BUMBANAC, A STAR VEGETABLE WORKER Unavailable Unavailable BUMBANAC, A STAR VEGETABLE WORKER Unavailable Unavailable BUMBANAC, A STAR VEGETABLE WORKER Unavailable Unavailable BUMBANAC, A STAR VEGETABLE WORKER Unavailable Unavailable BUMBANAC, A STAR VEGETABLE WORKER Unavailable Unavailable BUMBANAC, A STAR VEGETABLE WORKER Unavailable Unavailable BUMBANAC, A STAR VEGETABLE WORKER Unavailable Unavailable BUMBANAC, A STAR VEGETABLE WORKER Unavailable Unavailable BUMBANAC, A STAR VEGETABLE WORKER Unavailable Unavailable BUMBANAC, A STAR VEGETABLE WORKER Unavailable Unavailable BUMBANAC, A STAR VEGETABLE WORKER Unavailable Unavailable SARAH GRADY MD Unavailable Unavailable SARAH GRADY MD Unavailable Unavailable SARAH GRADY MD Unavailable Unavailable SARAH GRADY MD Unavailable Unavailable SARAH GRADY MD Unavailable Unavailable SARAH GRADY MD Unavailable Unavailable SARAH GRADY MD Unavailable Unavailable SARAH GRADY MD Unavailable Unavailable SARAH GRADY MD Unavailable Unavailable SRAAH GRADY MD Unavailable Unavailable SARAH GRADY MD [...] Pablo Hernandez Unavailable + Pablo Hernandez Unavailable Pablo Hernandez Unavailable + MtanoBlaine kumar MD Unavailable Unavailable MtanosBlaine MD [...] MD Unavailable Unavailable MtanosBlaine MD Unavailable Unavailable Mtanos, Blaine HERNANDEZ Unavailable Unavailable MtanosBlaine MD Unavailable Unavailable MtanosBlaine [...] DAVID PA Unavailable Unavailable Hernandez, M Maik VEGETABLE WORKER Unavailable Unavailable Hernandez, M Maik VEGETABLE WORKER Unavailable Unavailable Hernandez, M Maik VEGETABLE WORKER Unavailable Unavailable Hernandez, M Maik VEGETABLE WORKER Unavailable Unavailable Hernandez, M Maik VEGETABLE WORKER Unavailable Unavailable Hernandez, M Maik VEGETABLE WORKER Unavailable Unavailable HERNANDEZ, W PABLO Unavailable [...] by Article 27-F of the [facility] Public Health law. If you continue you may have access to information: Regarding HIV / AIDS; Provided by facilities licensed or operated by the [facility] Office of Mental Health; or Provided by the [facility] Office for People With Developmental Disabilities. If such information is present, then the following [facility] mandated warning applies: This information has [...] 10 MG COMPAZINE PO TAB 10 MG [facility] Propensity to adverse reactions DEMEROL DEMEROL [facility] Propensity to adverse reactions PCN (penicillin) PCN (penicillin) [facility] Family History Family Member Name Family Member Gender Family Member Status Date o f Status Description Data Source(s) Unknown Male Problem (finding) 10/17/2014 12:00:00 AM EST NextGen ([facility]) Unknown Male Problem (finding) 10/17/2014 12:00:00 AM EST [facility]Gen ([facility]) Unknown Male Problem MEDENT ([facility] () Unknown Unknown Problem MEDENT ([facility]) Unknown Female Problem MEDENT ([facility]) Unknown Female Problem MEDENT ([facility]) Unknown Female Problem MEDENT ([facility]) Unknown Female Problem MEDENT ([facility]) Unknown Female Problem MEDENT ([facility]) Encounters Encounter Providers Location Date Indications Data Source(s ) Outpatient Attender: PABLO TERRYonsultant: SHASHANK COUCH 09/21/2021 11:10:00 AM EST - 09/21/2021 11:20:00 AM EST [facility] Referrer: SARAH GRADY MD 09/03/2021 08:2 1:10 PM EDT [facility] Referrer: SARAH GRADY MD 08/25/2021 08:2 1:10 PM EDT [facility] 08/25/2021 08:21:10 PM EDT [facility] 08/25/2021 08:21:10 PM EDT [facility] [place] [address] [facility] [address] 08/11/2021 12:00:00 AM EDT eCW1 ([facility]) Outpatient Attender: LUZ ELENA EDDYReferrer: Pablo Hernandez EMERGENCY ROOM-LAB REFOTH 08/02/2021 11:33:00 AM EDT - 08/02/2021 11:33:00 AM EDT [facility] Unknown [address] [facility] [address] 06/15/2021 12:00:00 AM EDT eCW1 ([facility]) Outpatient Attender: LUDIN MIGUEL NPConsultant: SHASHANK BUNK ER PA 05/31/2021 03:28:00 PM EDT - 05/31/2021 03:28:00 PM EDT [facility] Unknown [address] [facility] [address] 05/31/2021 12:00:00 AM EDT eCW1 ([facility]) Outpatient Attender: Maik Hernandez NPConsultant: SHASHANK BUNK ER PA 05/16/2021 10:55:00 AM EDT - 05/16/2021 11:05:00 AM EDT [facility] Outpatient [address] [facility] [address] 05/11/2021 12:00:00 AM EDT eCW1 ([facility]) Outpatient Attender: Maik Hernandez NPConsultant: SHASHANK BUNK ER PA 05/04/2021 01:00:00 PM EDT - 05/04/2021 01:10:00 PM EDT [facility] Unknown [address] [facility] [address] 05/04/2021 12:00:00 AM EDT eCW1 ([facility]) [place] [address] [facility] [address] 05/04/2021 12:00:00 AM EDT eCW1 ([facility]) [place] [address] [facility] [address] 05/04/2021 12:00:00 AM EDT eCW1 ([facility]) [place] [address] [facility] [address] 04/21/2021 12:00:00 AM EDT eCW1 ([facility]) [place] [address] [facility] [address] 04/13/2021 12:00:00 AM EDT eCW1 ([facility]) [place] [address] [facility] [address] 04/09/2021 12:00:00 AM EDT eCW1 ([facility]) Unknown [address] [facility] [place] [address] 04/06/2021 12:00:00 AM EDT eCW1 ([facility]) Outpatient Attender: PABLO Mendoza: PABLO HERNANDEZ 04/05/2021 12:00:00 AM EDT - 04/06/2021 12:00:00 AM EDT Bone marrow transplant status [facility] Bone marrow transplant status Outpatient [address] [facility] [address] 04/01/2021 12:00:00 AM EDT eCW1 ([facility]) Unknown [address] [facility] [place] [address] 03/29/2021 12:00:00 AM EDT eCW1 ([facility]) [facility] New Pt. Level 3 [address] [place] [address] 03/25/2021 12:00:00 AM EDT eCW1 ([facility]) Unknown [address] [facility] [place] [address] 2021 12:00:00 AM EDT eCW1 [facility] Unknown [address] [facility] [place] [address] 03/08/2021 12:00:00 AM EDT eCW1 ([facility]) (TV_Virtual) [facility] Visit [address] [place] [address] 03/04/2021 12:00:00 AM EDT eCW1 ([facility]) Unknown [address] [facility] [place] [address] 03/02/2021 12:00:00 AM EDT eCW1 ([facility]) Unknown [address] [facility] [place] [address] 02/22/2021 12:00:00 AM EDT eCW1 ([facility]) [place] [address] [facility] [address] 02/21/2021 12:00:00 AM EDT eCW1 ([facility]) [place] [address] [facility] [address] 02/18/2021 12:00:00 AM EDT eCW1 ([facility]) [place] [address] [facility] [address] 02/18/2021 12:00:00 AM EDT eCW1 ([facility]) Unknown [address] [facility] [address] 02/18/2021 12:00:00 AM EDT eCW1 ([facility]) Unknown [address] [facility] [address] 02/15/2021 12:00:00 AM EDT eCW1 ([facility]) Outpatient Attender: DAVID COUCH Main Office 02/10/2021 1 0:15:00 AM EDT MEDENT ([facility]) Out[place] [address] [facility] [address] 02/04/2021 12:00:00 AM EDT eCW1 ([facility]) [place] [address] [facility] [address] 01/27/2021 12:00:00 AM EDT eCW1 ([facility]) [place] [address] [facility] [address] 01/27/2021 12:00:00 AM EDT eCW1 ([facility]) [place] [address] [facility] [address] 01/19/2021 12:00:00 AM EDT eCW1 ([facility]) [place] [address] [facility] [address] 01/10/2021 12:00:00 AM EST eCW1 ([facility]) Unknown [address] [facility] [address] 01/10/2021 12:00:00 AM EST eCW1 ([facility]) Unknown [address] [facility] [address] 12/23/2020 12:00:00 AM EST eCW1 ([facility]) TeleMedicine New Pt. Level 4 [address] [place] [address] 12/15/2020 12:00:00 AM EST eCW1 ([facility]) Unknown [address] [facility] [address] 12/07/2020 12:00:00 AM EST eCW1 ([facility]) TeleMedicine Est. Pt. Level 4 [address] [place] [address] 11/17/2020 12:00:00 AM EST eCW1 ([facility]) Unknown [address] [facility] [address] 11/10/2020 12:00:00 AM EST eCW1 ([facility]) Unknown [address] [facility] [address] 10/26/2020 12:00:00 AM EST eCW1 ([facility]) TeleMedicine Est. Pt. Level [address] [place] [address] 10/22/2020 12:00:00 AM EST eCW1 ([facility]) Attender: Blaine Damon [facility] 10/13/2020 12:58:00 PM EST - 10/13/2020 12:58:00 PM EST NextGen ( [facility]) Outpatient Attender: AILEEN KOCHReferrer: AILEEN KOCH Care Management Specialist: SHASHANK COUCH 10/05/2020 12:00:00 PM EST - 10/05/2020 12:10:00 PM EST [facility] Outpatient Attender: PABLO Lightultant: SHASHANK COUCH 10/05/2020 11:59:00 AM EST - 10/05/2020 12:09:00 PM EST [facility] Unknown [address] [facility] [address] 10/05/2020 12:00:00 AM EST eCW1 ([facility]) [place] [address] [facility] [address] 09/22/2020 12:00:00 AM EST eCW1 ([facility]) Unknown [address] [facility] [address] 09/21/2020 12:00:00 AM EST eCW1 ([facility]) Unknown [address] [facility] [address] 09/16/2020 12:00:00 AM EST eCW1 ([facility]) Outpatient Attender: VAUGHN Thorne: Norberto sutton MD 09/05/2020 12:00:00 AM EDT - 09/06/2020 12:00:00 AM EDT [facility] Unknown [address] [facility] [address] 09/04/2020 12:00:00 AM EDT eCW1 ([facility]) Outpatient Attender: AILEEN Oropezasultant: SHASHANK COUCH 08/31/2020 12:30:00 PM EDT - 08/31/2020 12:40:00 PM EDT [facility] Outpatient Attender: PABLO Guerraant: SHASHANK COUCH 08/31/2020 12:28:00 PM EDT - 08/31/2020 12:38:00 PM EDT [facility] Unknown [address] [facility] [address] 08/31/2020 12:00:00 AM EDT eCW1 ([facility]) Unknown [address] [facility] [address] 08/25/2020 12:00:00 AM EDT eCW1 ([facility]) Unknown [address] [facility] [address] 08/24/2020 12:00:00 AM EDT eCW1 ([facility]) Unknown [address] [facility] [address] 08/24/2020 12:00:00 AM EDT eCW1 ([facility]) Unknown [address] [facility] [address] 08/24/2020 12:00:00 AM EDT eCW1 ([facility]) Outpatient Attender: JORGE Elmoreerrer: Norberto elizondo MD [id number] 08/18/2020 12:00:00 AM EDT - 08/19/2020 12:00:[address] [facility] Outpatient 08/15/2020 12:00:[address] [facility] Unknown [address] [facility] [address] 08/12/2020 12:00:00 AM EDT eCW1 ([facility]) Outpatient [address] [facility] [address] 08/11/2020 12:00:00 AM EDT eCW1 ([facility]) [place] [address] [facility] [place] [address] 08/06/2020 12:00:00 AM EDT eCW1 ([facility]) [place] [address] [facility] [address] 08/04/2020 12:00:00 AM EDT eCW1 ([facility]) Unknown [address] [facility] [place] [address] 07/28/2020 12:00:00 AM EDT eCW1 ([facility]) Immunizations Vaccine Date Status Description Data Source(s) COVID-19 VACC,MRNA(MODERNA)/PF 07/23/2021 12:00:00 AM EDT completed [facility] COVID-19 VACCINE Moderna 07/23/2021 12:00:00 AM EDT completed [facility] Vaccine Series Complete: YESThis Data wa s Submitted to [facility] Via [employer]. COVID-19 VACCINE Moderna 02/01/2021 12:00:00 AM EDT completed [facility] Vaccine Series Complete: YESThis Data wa s Submitted to [facility] [employer]. COVID-19 VACCINE Moderna 01/04/2021 12:00:00 AM EST completed [facility] Vaccine Series Complete: NOThis Data was Submitted to [facility] [employer]. Medications Medication Brand Name Start Date Product Form Dose Route Admi nistrative Instructions Pharmacy Instructions Status Indications Reaction Description Data Source(s) 10 mg 09/07/2021 12:00:00 AM EDT tablet 30 TAKE ONE TABLET BY MOUTH DAILY TAKE ONE TABLET BY MOUTH DAILY SOLD: 09/07/2021 [facility] 240 mg 09/02/2021 12:00:00 AM EDT capsule,ext.rel 24h deg radable 30 TAKE ONE CAPSULE BY MOUTH EVERY DAY TAKE ONE CAPSULE BY MOUTH EVERY DAY SOLD: 09/02/2021 [facility] 300 mg 09/02/2021 12:00:00 AM EDT tablet 60 TAKE ONE TABLET BY MOUTH TWICE A DAY TAKE ONE TABLET BY MOUTH TWICE A DAY SOLD: 09/02/2021 [facility] 50 mg 09/01/2021 12:00:00 AM EDT tablet 30 TAKE ONE TABLET BY MOUTH EVERY EVENING TAKE ONE TABLET BY MOUTH EVERY EVENING SOLD: 09/02/2021 [facility] Hydralazine Hydrochloride 25 MG Oral Tablet HYDRALAZINE HCL 08/31/2021 12:00:00 AM EDT tablet 30 TAKE ONE TABLET BY MOUTH THREE TIMES A DAY NEEDED FOR SBP >150MMHG TAKE ONE TABLET BY MOUTH THREE TIMES A DAY NEEDED F OR SBP >150MMHG SOLD: 08/31/2021 [facility] 750 mg 08/25/2021 12:00:00 AM EDT tablet 90 TAKE ONE TABLET BY MOUTH THREE TIMES A DAY TAKE ONE TABLET BY MOUTH THREE TIMES A DAY SOLD: 08/25/2021 [facility] 50 mg 08/10/2021 12:00:00 AM EDT tablet 60 TAKE ONE TABLET BY MOUTH TWICE A DAY TAKE ONE TABLET BY MOUTH TWICE A DAY SOLD: 09/07/2021 [facility] 50 mg 08/10/2021 12:00:00 AM EDT tablet 60 TAKE ONE TABLET BY MOUTH TWICE A DAY TAKE ONE TABLET BY MOUTH TWICE A DAY SOLD: 08/10/2021 [facility] Lorazepam 1 MG Oral Tablet Lorazepam 1 MG 08/10/2021 12:00:00 AM EDT active Lorazepam 1 MG eCW1 ([facility]) 1 mg 08/10/2021 12:00:00 AM EDT [...] ONE TABLET BY MOUTH EVERY EVENING SOLD: 09/07/2021 [facility] montelukast 10 MG Oral Tablet MONTELUKAST SODIUM 08/09/2021 12:0 0:00 AM EDT tablet 30 TAKE ONE TABLET BY MOUTH EVERY E VENING TAKE ONE TABLET BY MOUTH EVERY EVENING SOLD: 08/10/2021 [facility] 800-160 mg 07/28/2021 12:00:00 AM EDT tablet 12 TAKE ONE TABLET BY MOUTH THREE TIMES A WEEK TAKE ONE TABLET BY MOUTH THREE TIMES A WEEK SOLD: 07/29/2021 [facility] 800-160 mg 07/28/2021 12:00:00 AM EDT tablet 12 TAKE ONE TABLET BY MOUTH THREE TIMES A WEEK TAKE ONE TABLET BY MOUTH THREE TIMES A WEEK SOLD: 09/19/2021 [facility] 800-160 mg 07/28/2021 12:00:00 AM EDT tablet 12 TAKE ONE TABLET BY MOUTH THREE TIMES A WEEK TAKE ONE TABLET BY MOUTH THREE TIMES A WEEK SOLD: 08/22/2021 [facility] 0.5 mg/5 mL 07/22/2021 12:00:00 AM EDT solution 600 TAKE 5ML BY MOUTH FOUR TIMES A DAY TAKE 5ML BY MOUTH FOUR TIMES A DAY SOLD: 07/23/2021 [facility] Acyclovir 400 MG Oral Tablet ACYCLOVIR 07/20/2021 12:00:00 AM EDT tabl et 60 TAKE ONE TABLET BY MOUTH TWO TIMES A DAY TAKE ONE TABLET BY MOUTH TWO TIMES A DAY SOLD: 09/19/2021 [facility] Acyclovir 400 MG Oral [...] DAY USE FOUR TIMES A DAY SOLD: 09/02/2021 [facility] 31 gauge x 1/4" [...] 300 mg 06/16/2021 12:00:00 AM EDT capsule 30 TAKE ONE CAPSULE BY MOUTH EVERY DAY AT NIGHT TAKE ONE CAPSULE BY MOUTH EVERY DAY AT NIGHT SOLD: 09/14/2021 [facility] 300 mg 06/16/2021 12:00:00 AM [...] active Lorazepam 1 MG eCW1 ([facility]) Acetaminophen 325 MG / Hydrocodone Bitartrate [...] ONE TABLET BY MOUTH EVERY EVENING SOLD: 09/14/2021 [facility] 200 mg 05/20/2021 12:00:00 AM [...] INJECT 26 UNITS SUBCUTANEOUSLY EVERY NIGHT SOLD: 09/17/2021 [facility] 3 ML Insulin Glargine [...] active Debrox 6.5 % eCW1 ([facility]) Mupirocin 20 MG/ML Topical Cream Mupirocin Calcium 2 % Mupir ocin Calcium 2 % 05/04/2021 12:00:00 AM EDT 1.0 {application} act fany Mupirocin Calcium 2 % eCW1 ([facility]) Mupirocin 20 MG/ML Topical Cream Mupirocin Calcium 2 % Mupir ocin Calcium 2 % 05/04/2021 12:00:00 AM EDT 1.0 {application} act fany Mupirocin Calcium 2 % eCW1 ([facility]) Mupirocin 20 MG/ML Topical Cream Mupirocin Calcium 2 % Mupir ocin Calcium 2 % 05/04/2021 12:00:00 AM EDT 1.0 {application} act fany Mupirocin Calcium 2 % eCW1 ([facility]) Mupirocin 20 MG/ML Topical Cream Mupirocin Calcium 2 % Mupir ocin Calcium 2 % 05/04/2021 12:00:00 AM EDT 1.0 {application} act fany Mupirocin Calcium 2 % eCW1 ([facility]) carbamide peroxide 65 MG/ML Otic Solution [Debrox] Debrox 6. 5 % Debrox 6.5 % 05/04/2021 12:00:00 AM EDT 5.0 {drops_into_affected_ear} active Debrox 6.5 % eCW1 ([facility]) Mupirocin 20 MG/ML Topical Cream Mupirocin Calcium 2 % Mupir ocin Calcium 2 % 05/04/2021 12:00:00 AM EDT 1.0 {application} active eCW1 ([facility]) carbamide peroxide 65 MG/ML Otic Solution [Debrox] Debrox 6. 5 % Debrox 6.5 % 05/04/2021 12:00:00 AM EDT 5.0 {drops_into_affected_ear} active Debrox 6.5 % eCW1 ([facility]) carbamide peroxide 65 MG/ML Otic Solution [Debrox] Debrox 6. 5 % Debrox 6.5 % 05/04/2021 12:00:00 AM EDT 5.0 {drops_into_affected_ear} active Debrox 6.5 % eCW1 ([facility]) Mupirocin 20 MG/ML Topical Cream Mupirocin Calcium 2 % Mupir ocin Calcium 2 % 05/04/2021 12:00:00 AM EDT 1.0 {application} act fany Mupirocin Calcium 2 % eCW1 ([facility]) carbamide peroxide 65 MG/ML Otic Solution [Debrox] Debrox 6. 5 % Debrox 6.5 % 05/04/2021 12:00:00 AM EDT 5.0 {drops_into_affected_ear} active Debrox 6.5 % eCW1 ([facility]) carbamide peroxide 65 MG/ML Otic Solution [Debrox] Debrox 6. 5 % Debrox 6.5 % 05/04/2021 12:00:00 AM EDT 5.0 {drops_into_affected_ear} active Debrox 6.5 % eCW1 ([facility]) carbamide peroxide 65 MG/ML Otic Solution [Debrox] Debrox 6. 5 % Debrox 6.5 % 05/04/2021 12:00:00 AM EDT 5.0 {drops_into_affected_ear} active eCW1 ([facility]) Mupirocin 20 MG/ML Topical Cream Mupirocin Calcium 2 % Mupir ocin Calcium 2 % 05/04/2021 12:00:00 AM EDT 1.0 {application} act fany Mupirocin Calcium 2 % eCW1 ([facility]) 10 mg 04/28/2021 12:00:00 AM EDT [...] DAILY DOSE = 42 UNITS SOLD: 07/15/2021 [facility] Acyclovir 400 MG Oral Tablet [...] BY MOUTH EVERY DAY WITH BREAKFAST SOLD: 08/29/20 21 [facility] Hydroxychloroquine Sulfate 200 MG [...] MOUTH THREE TIMES A DAY NEEDED SOLD: 09/17/2021 [facility] 10 gram/15 mL 04/02/2021 12:00:00 [...] DAILY DOSE = 20 UNITS SOLD: 04/01/2021 [facility] 5 mg 03/30/2021 12:00:00 AM EDT [...] Le xapro 5 MG eCW1 ([facility]) Escitalopram 5 MG Oral Tablet [Lexapro] Lexapro 5 MG Lexapro 5 MG 03/26/2021 12:00:00 AM EDT 1.0 {tablet} active eCW1 ([facility]) 0.125 mg 03/26/2021 12:00:00 AM EDT tablet 90 TAKE THREE TABLETS BY MOUTH EVERY NIGHT TAKE THREE TABLETS BY MOUTH EVERY NIGHT SOLD: 07/20/2021 [facility] Escitalopram 5 MG Oral Tablet [Lexapro] Lexapro 5 MG Lexapro 5 MG 03/26/2021 12:00:00 AM EDT 1.0 {tablet} active Le xapro 5 MG eCW1 ([facility]) 0.125 mg 03/26/2021 12:00:00 AM EDT [...] ONE TABLET BY MOUTH EVERY MORNING SOLD: 08/29/2021 [facility] 25 mg 03/09/2021 12:00:00 AM [...] MOUTH EVERY MORNING SOLD: 07/06/2021 [facility] Amlodipine 5 MG Oral Tablet Amlodipine Besylate 03/01/2021 12:00:00 A M EDT ORAL active [facility] ([facility] 100 mg 03/01/2021 12:00:00 AM EDT tablet [...] ([facility]) Labetalol hydrochloride 100 MG Oral Tablet Labetalol HCL 02/09/2021 12:00:00 AM EDT ORAL active [facility] ([facility]) Amlodipine 5 MG Oral Tablet Amlodipine Besylate 02/09/2021 12:00:00 A M EDT ORAL active [facility] ([facility]) Prednisone 5 [...] Solostar 02/09/2021 12:00:00 AM EDT active [facility] ([employer] [facility]) repaglinide 2 MG Oral Tablet Repaglinide 02/09/2021 12:00:00 AM EDT ORAL active [facility] ([facility]) Clotrimazole 10 MG/ML Topical Cream Clotrimazole 02/09/2021 12:00:00 AM EDT active [facility] ([facility]) 60 ACTUAT Budesonide 0.16 MG/ACTUAT / fo rmoterol fumarate 0.0045 MG/ACTUAT Metered Dose Inhaler Budesonide/Formoterol Fumarate Dihydrate 02/09/2021 12:00:00 AM EDT RESPIRATORY active [facility] ([facility]) Dexamethasone 0.1 MG/ML Oral Solution Dexamethasone 02/09/2021 12:00:00 AM EDT ORAL active [facility] ( [facility]) Hydroxychloroquine Sulfate 200 MG Oral Tablet Hydroxychloroq [...] MEDENT ([facility]) Chlorthalidone 25 MG Oral Tablet [...] TABLET BY MOUTH EVERY DAY SOLD: 04/07/2021 [facility] Cyclobenzaprine hydrochloride 10 MG Oral Tablet CYCLOBENZAPR INE HCL 12/17/2020 12:00:00 AM EST tablet 60 TAKE ONE TABLET BY MOUTH THREE TIMES A DAY NEEDED TAKE ONE TABLET BY MOUTH THREE TIMES A DAY NEEDED SOLD: 12/17/2020 [facility] Escitalopram 5 MG Oral Tablet [Lexapro] Lexapro 5 MG Lexapro 5 MG 12/15/2020 12:00:00 AM EST 1.0 {tablet} active Le xapro 5 MG eCW1 ([facility]) Escitalopram 5 MG Oral Tablet [Lexapro] Lexapro 5 MG Lexapro 5 MG 12/15/2020 12:00:00 AM EST 1.0 {tablet} active Le xapro 5 MG eCW1 ([facility]) Escitalopram 5 MG Oral Tablet [Lexapro] Lexapro 5 MG Lexapro 5 MG 12/15/2020 12:00:00 AM EST 1.0 {tablet} active Le xapro 5 MG eCW1 ([facility]) 2 mg 12/15/2020 12:00:00 AM EST tablet 90 TAKE ONE TABLET BY MOUTH THREE TIMES A DAY ( BEFORE MEALS ) TAKE ONE TABLET BY MOUTH THREE TIMES A D AY ( BEFORE MEALS ) SOLD: 12/15/2020 [facility] Escitalopram 5 MG Oral Tablet [Lexapro] Lexapro 5 MG Lexapro 5 MG 12/15/2020 12:00:00 AM EST 1.0 {tablet} active Le xapro 5 MG eCW1 ([facility]) 2 mg 12/15/2020 12:00:00 AM EST [...] Le xapro 5 MG eCW1 ([facility]) Escitalopram 5 MG Oral Tablet ESCITALOPRAM OXALATE 12/15/2020 12 :00:00 AM EST tablet 30 TAKE ONE TABLET BY MOUTH EVERY D AY TAKE ONE TABLET BY MOUTH EVERY DAY SOLD: 12/15/2020 [facility] Escitalopram 5 MG Oral Tablet [Lexapro] Lexapro 5 MG Lexapro 5 MG 12/15/2020 12:00:00 AM EST 1.0 {tablet} active Le xapro 5 MG eCW1 ([facility]) 2 mg 12/15/2020 12:00:00 AM EST [...] Le xapro 5 MG eCW1 ([facility]) Escitalopram 5 MG Oral Tablet ESCITALOPRAM [...] Le xapro 5 MG eCW1 ([facility]) Escitalopram 5 MG Oral Tablet [Lexapro] Lexapro 5 MG Lexapro 5 MG 12/15/2020 12:00:00 AM EST 1.0 {tablet} active Le xapro 5 MG eCW1 ([facility]) Escitalopram 5 MG Oral Tablet [Lexapro] Lexapro 5 MG Lexapro 5 MG 12/15/2020 12:00:00 AM EST 1.0 {tablet} active Le xapro 5 MG eCW1 ([facility]) 2 mg 12/15/2020 12:00:00 AM EST [...] Le xapro 5 MG eCW1 ([facility]) Escitalopram 5 MG Oral Tablet [Lexapro] Lexapro 5 MG Lexapro 5 MG 12/15/2020 12:00:00 AM EST 1.0 {tablet} active Le xapro 5 MG eCW1 ([facility]) Escitalopram 5 MG Oral Tablet ESCITALOPRAM OXALATE 12/15/2020 12 :00:00 AM EST tablet 30 TAKE ONE TABLET BY MOUTH EVERY D AY TAKE ONE TABLET BY MOUTH EVERY DAY SOLD: 03/09/2021 [facility] Escitalopram 5 MG Oral Tablet [Lexapro] Lexapro 5 MG Lexapro 5 MG 12/15/2020 12:00:00 AM EST 1.0 {tablet} active Le xapro 5 MG eCW1 ([facility]) Escitalopram 5 MG Oral Tablet [Lexapro] Lexapro 5 MG Lexapro 5 MG 12/15/2020 12:00:00 AM EST 1.0 {tablet} active Le xapro 5 MG eCW1 ([facility]) Escitalopram 5 MG Oral Tablet [Lexapro] Lexapro 5 MG Lexapro 5 MG 12/15/2020 12:00:00 AM EST 1.0 {tablet} active Le xapro 5 MG eCW1 ([facility]) Escitalopram 5 MG Oral Tablet [Lexapro] Lexapro 5 MG Lexapro 5 MG 12/15/2020 12:00:00 AM EST 1.0 {tablet} active Le xapro 5 MG eCW1 ([facility]) Escitalopram 5 MG Oral Tablet [Lexapro] Lexapro 5 MG Lexapro 5 MG 12/15/2020 12:00:00 AM EST 1.0 {tablet} active Le xapro 5 MG eCW1 ([facility]) montelukast 10 MG Oral Tablet MONTELUKAST [...] TWO TIMES A DAY SOLD: 11/18/2020 [facility] 50 mg 11/18/2020 12:00:00 AM EST tablet 60 TAKE ONE TABLET BY MOUTH TWO TIMES A DAY TAKE ONE TABLET BY MOUTH TWO TIMES A DAY SOLD: 12/13/2020 [facility] 50 mg 11/18/2020 12:00:00 AM EST [...] MOUTH EVERY DAY SOLD: 01/05/2021 [facility] Hydroxychloroquine Sulfate 200 MG Oral [...] ND TWO EVERY EVENING SOLD: 10/27/2020 [facility] 0.125 mg 09/27/2020 12:00:00 [...] ND TWO EVERY EVENING SOLD: 02/27/2021 [facility] 0.125 mg 09/27/2020 12:00:00 AM EST tablet 90 TAKE ONE TABLET BY MOUTH EVERY MORNING AND TWO EVERY EVENING TAKE ONE TABLET BY MOUTH EVERY MORNING A ND TWO EVERY EVENING SOLD: 11/22/2020 [facility] 0.125 mg 09/27/2020 12:00:00 AM EST tablet 90 TAKE ONE TABLET BY MOUTH EVERY MORNING AND TWO EVERY EVENING TAKE ONE TABLET BY MOUTH EVERY MORNING A ND TWO EVERY EVENING SOLD: 01/26/2021 [facility] 0.125 mg 09/27/2020 12:00:00 AM EST tablet 90 TAKE ONE TABLET BY MOUTH EVERY MORNING AND TWO EVERY EVENING TAKE ONE TABLET BY MOUTH EVERY MORNING A ND TWO EVERY EVENING SOLD: 12/20/2020 [facility] Cephalexin 500 MG Oral Capsule [Keflex] Keflex 500 MG Keflex 500 MG 09/22/2020 12:00:00 AM EST 1.0 {capsule} active K eflex 500 MG eCW1 ([facility]) 15 mg 09/22/2020 12:00:00 AM EST tablet extended release 24hr 30 TAKE ONE TABLET BY MOUTH EVERY DAY AT BEDTIME TAKE ONE TABLET BY MOUTH EVERY DAY AT BEDTIME SOLD: 04/07/2021 [facility] Cephalexin 500 MG Oral Capsule [Keflex] Keflex 500 MG Keflex 500 MG 09/22/2020 12:00:00 AM EST 1.0 {capsule} active K eflex 500 MG eCW1 ([facility]) 15 mg 09/22/2020 12:00:00 AM EST [...] K eflex 500 MG eCW1 ([facility]) 15 mg 09/22/2020 12:00:00 AM EST [...] K eflex 500 MG eCW1 ([facility]) 15 mg 09/22/2020 12:00:00 AM EST tablet extended release 24hr 30 TAKE ONE TABLET BY MOUTH EVERY DAY AT BEDTIME TAKE ONE TABLET BY MOUTH EVERY DAY AT BEDTIME SOLD: 09/07/2021 [facility] 15 mg 09/22/2020 12:00:00 AM EST tablet extended release 24hr 30 TAKE ONE TABLET BY MOUTH EVERY DAY AT BEDTIME TAKE ONE TABLET BY MOUTH EVERY DAY AT BEDTIME SOLD: 12/07/2020 [facility] Cephalexin 500 MG Oral Capsule [Keflex] Keflex 500 MG Keflex 500 MG 09/22/2020 12:00:00 AM EST 1.0 {capsule} active K eflex 500 MG eCW1 ([facility]) Cephalexin 500 MG Oral Capsule [Keflex] Keflex 500 MG Keflex 500 MG 09/22/2020 12:00:00 AM EST 1.0 {capsule} active K eflex 500 MG eCW1 ([facility]) 15 mg 09/22/2020 12:00:00 AM EST [...] K eflex 500 MG eCW1 ([facility]) 15 mg 09/22/2020 12:00:00 AM EST tablet extended release 24hr 30 TAKE ONE TABLET BY MOUTH EVERY DAY AT BEDTIME TAKE ONE TABLET BY MOUTH EVERY DAY AT BEDTIME SOLD: 05/11/2021 [facility] Cephalexin 500 MG Oral Capsule [Keflex] Keflex 500 MG Keflex 500 MG 09/22/2020 12:00:00 AM EST 1.0 {capsule} active K eflex 500 MG eCW1 ([facility]) 15 mg 09/22/2020 12:00:00 AM EST [...] active Ondansetron 4 MG eCW1 ([facility]) Ondansetron 4 MG Disintegrating Oral Tablet Ondansetron 4 MG 08/18/2020 12:00:00 AM EDT 1.0 {tablet_on_the_tongue_and_allow_to_dissolve} active Ondansetron 4 MG eCW1 ([facility]) Ondansetron 4 MG Disintegrating Oral Tablet Ondansetron 4 MG 08/18/2020 12:00:00 AM EDT 1.0 {tablet_on_the_tongue_and_allow_to_dissolve} active Ondansetron 4 MG eCW1 ([facility]) Ondansetron 4 MG Disintegrating Oral Tablet Ondansetron 4 MG 08/18/2020 12:00:00 AM EDT 1.0 {tablet_on_the_tongue_and_allow_to_dissolve} active Ondansetron 4 MG eCW1 ([facility]) Ondansetron 4 MG Disintegrating Oral Tablet Ondansetron 4 MG 08/18/2020 12:00:00 AM EDT 1.0 {tablet_on_the_tongue_and_allow_to_dissolve} active Ondansetron 4 MG eCW1 ([facility]) Ondansetron 4 MG Disintegrating Oral Tablet Ondansetron 4 MG 08/18/2020 12:00:00 AM EDT 1.0 {tablet_on_the_tongue_and_allow_to_dissolve} active Ondansetron 4 MG eCW1 ([facility]) Ondansetron 4 MG Disintegrating Oral Tablet Ondansetron 4 MG 08/18/2020 12:00:00 AM EDT 1.0 {tablet_on_the_tongue_and_allow_to_dissolve} active Ondansetron 4 MG eCW1 ([facility]) Ondansetron 4 MG Disintegrating Oral Tablet Ondansetron 4 MG 08/18/2020 12:00:00 AM EDT 1.0 {tablet_on_the_tongue_and_allow_to_dissolve} active Ondansetron 4 MG eCW1 ([facility]) Ondansetron 4 MG Disintegrating Oral Tablet Ondansetron 4 MG 08/18/2020 12:00:00 AM EDT 1.0 {tablet_on_the_tongue_and_allow_to_dissolve} active Ondansetron 4 MG eCW1 ([facility]) Ondansetron 4 MG Disintegrating Oral Tablet Ondansetron 4 MG 08/18/2020 12:00:00 AM EDT 1.0 {tablet_on_the_tongue_and_allow_to_dissolve} active Ondansetron 4 MG eCW1 ([facility]) Ondansetron 4 MG Disintegrating Oral Tablet Ondansetron 4 MG 08/18/2020 12:00:00 AM EDT 1.0 {tablet_on_the_tongue_and_allow_to_dissolve} active Ondansetron 4 MG eCW1 ([facility]) Ondansetron 4 MG Disintegrating Oral Tablet Ondansetron 4 MG 08/18/2020 12:00:00 AM EDT 1.0 {tablet_on_the_tongue_and_allow_to_dissolve} active Ondansetron 4 MG eCW1 ([facility]) Ondansetron 4 MG Disintegrating Oral Tablet Ondansetron 4 MG 08/18/2020 12:00:00 AM EDT 1.0 {tablet_on_the_tongue_and_allow_to_dissolve} active Ondansetron 4 MG eCW1 ([facility]) Ondansetron 4 MG Disintegrating Oral Tablet Ondansetron 4 MG 08/18/2020 12:00:00 AM EDT 1.0 {tablet_on_the_tongue_and_allow_to_dissolve} active Ondansetron 4 MG eCW1 ([facility]) Ondansetron 4 MG Disintegrating Oral Tablet Ondansetron 4 MG 08/18/2020 12:00:00 AM EDT 1.0 {tablet_on_the_tongue_and_allow_to_dissolve} active Ondansetron 4 MG eCW1 ([facility]) Ondansetron 4 MG Disintegrating Oral Tablet Ondansetron 4 MG 08/18/2020 12:00:00 AM EDT 1.0 {tablet_on_the_tongue_and_allow_to_dissolve} active Ondansetron 4 MG eCW1 ([facility]) Ondansetron 4 MG Disintegrating Oral Tablet Ondansetron 4 MG 08/18/2020 12:00:00 AM EDT 1.0 {tablet_on_the_tongue_and_allow_to_dissolve} active Ondansetron 4 MG eCW1 ([facility]) 4 mg 08/18/2020 12:00:00 AM EDT [...] A DAY TAKE ONE CAPSULE BY MO UTH TWICE A DAY SOLD: 07/28/2020 [facility] [...] DAILY DOSE = 20 UNITS SOLD: 11/15/2020 [facility] 300 mg 05/21/2020 12:00:00 AM EDT [...] MOUTH EVERY DAY SOLD: 08/04/2020 [facility] 2 mg 05/12/2020 12:00:00 AM [...] BEFORE MEALS SOLD: 10/06/2020 [facility] 50 mg 04/21/2020 12:00:00 AM EDT tablet 60 TAKE ONE TABLET BY MOUTH EVERY DAY TAKE ONE TABLET BY MOUTH EVERY DAY SOLD: 10/18/2020 [facility] 50 mg 04/21/2020 12:00:00 AM [...] MOUTH AT BEDTIME SOLD: 07/24/2020 [facility] 0.125 mg 03/10/2020 12:00:00 AM [...] MOUTH EVERY DAY SOLD: 01/05/2021 [facility] 31 gauge x 1/4" 09/18/2019 12:00:00 AM EST needle 100 USE THREE TIMES A DAY UNDER THE SKIN USE THREE TIMES A DAY UNDER THE SKIN SOLD: 09/27/2020 [facility] Insurance Providers Payer name Policy type / Coverage type Policy ID Covered alliance party ID Covered alliance party's relationship to sharma Policy Sharma Plan Information [employer] [id number] [facility] Service Medigap Part B [id number] Family De pendent Ghi/Emblem HLTH (pr) Medigap Part B [id number] Self [facility]BA [facility] 10/21/15 2 10/21/15 MEDICARE [id number] SP [id number] A POMCO [id number] Liv [id number] POMCO [id number] Liv [id number] POMCO U [id number] Self [id number] POMCO [id number] SP [id number] [place] (pr) Medigap Part B [id number] Self UMR [facility] [id number] SP [id number] [employer] [id number] S [id number] [place] [employer] [id number] S [id number] [place] [id number] S [id number] MEDICARE A [id number] Self [id number] MEDICARE [id number] Liv [id number] MEDICARE [id number] SP [id number] A [place]IC[place] [id number] S [id number] MEDICARE [id number] Liv [id number] A MEDICARE A [id number] Self [id number] A MEDICARE [id number] Liv [id number] A [place]IC[place] [id number] S [id number] [place] [employer] [id number] S [id number] U [id number] Spouse [id number] Liv [id number] Liv [id number] [place] [facility] (TFL) Medigap Part B [id number] Family Dep endent Medicare Dme Supplies Medigap Part B [id number] Self Medicare [place] Primary [id number] Self WPS For Life Medigap Part B [id number] Family Dependent 1 [id number] WPS For Life Medigap Part B [id number] Family Dependent 1 [id number] UMR [id number] S [id number] POMCO [id number] SP [id number] FOR LIFE [id number] HU2 [id number] POMCO [id number] SP [id number] UMR [id number] S [id number] UMR U [id number] Self [id number] FOR LIFE U [id number] Spouse [id number] FOR LIFE [id number] SP [id number] FOR LIFE [id number] HU2 [id number] UMR [facility] [id number] SP [id number] r Commercial [id number] Self [id number] ANSI-Medicare Part B [id number] ANSI-Commercial [id number]-[id number]-[id number] ANSI-Commercial [id number]-g36v-6593-[id number] ANSI-Commercial [id number]-5btv-[id number] ANSI-Commercial 30l079gl-ylvv-2qyl-c8qu-[id number]-gyrh-3awl-[id number]-[id number] ANSI-Commercial [id number]-08rc-[id number] [id number]-15rc-[id number] ANSI-Medicare Part B [id number] ANSI-Commercial [id number]-[id number]-7h6h-32e6-[id number] ANSI-Commercial [id number]-9128-39251iflim0l [id number]-0359-15880hqlmu4p ANSI-Commercial [id number]-[id number] 4x7rrg64-29i0-4y77-07bi-[id number] ANSI-Medicare Part B [id number] [facility] [id number] [facility] [id number] ANSI-Medicare Part B [id number] ANSI-Commercial [id number]-[id number]-[id number] 0b57eb87-x07q-32a1-5i8f-cde5t78f9w61 ANSI-Commercial [id number]-38y3-xs27-63eoq21d5z19 3q0p0607-7x1s-11m6-ye14-92ogb18u2m72 ANSI-Commercial w63t7m65-129r-8g53-[id number] a65e2g59-289s-7f09-i884-9b344l4915fv ANSI-Commercial [id number]-7x41-3b56q9b4n240 [id number]-6w69-5m94m0s2w910 [facility] [id number] ANSI-Commercial 62sdc596-69b0-0632-j6pf-81196h34x08y 96gri196-02g5-9516-s8qy-87583c71v82h ANSI-Commercial a2qx4r05-454q-7412-k491-5o41d8f5p8a1 d7ze9a64-968n-4612-d578-1f10t7t2u3p7 [facility] B [id number] ANSI-Commercial 6on0q3e4-3v1h-4131-3016-hr18v4h412y2 5xz2h7b7-4j2o-6274-3999-no00a0l130m9 ANSI-Commercial 6rfq5777-k071-68j4-r819-46kyl5zd0028 0cnn1343-i527-78n6-d468-27htm4sh8058 ANSI-Commercial dqc959b9-799g-9272-y48s-j0rl2937rwg6 dau258x7-429y-8898-o97r-n9wq9152gzr3 ANSI-Commercial a645u844-21y1-75s6-r940-82wq58kcepo5 i874t975-49h0-86j2-j689-71ms51qzzjy7 ANSI-Commercial y68m99rb-qp8x-3775-o073-6y8yn2rj5939 g51o82je-ll2d-2346-e277-7p8xl1eq9334 ANSI-Commercial n44gp1sg-92wl-4bq1-5u6k-052j3y830h02 c22fg6bz-10bh-5lt1-6a2e-659o1j415r62 ANSI-Medicare Part B [id number] For Life - [place] Medigap Part B [id number] Family Dependent [id number] Umr Medigap Part B [id number] Self [id number] Medicare (Part B) Medicare Primary [id number] Self [id number] ANSI-Medicare Part B [id number] ANSI-Commercial 36l3w804-56h5-804s-2qc2-97520uo3f369 55p1n894-21i4-714a-7mi1-66705ev6f632 ANSI-Commercial 25m0pp6v-0055-5506-o55n-9v0o10w56g7a 52g4hd7r-8363-2937-n30u-9t0s60x38v9c ANSI-Commercial 9222zr95-5347-1225-z202-38g765v023r8 4236uw33-9354-9503-u722-87g870t703g7 ANSI-Commercial 9l9d8ua0-0o13-0012-41pf-231e42668l12 9n7u8cc2-7r18-5785-29rx-430u74164e85 ANSI-Commercial zl39f1ff-s5qu-9r52-bt79-qgks7f906754 hf01d6nu-g3hi-8w05-wi42-nvih8p073969 ANSI-Commercial 335k5501-88tr-5px0-8983-823bp0w7g4q9 778a5820-48hz-4kq5-6591-449di9s8b1g6 ANSI-Medicare Part B [id number] ANSI-Commercial 6r73b5k7-q1k1-7895-cw02-s1ql5e0461le 8p43a6o6-h7w8-8970-lo39-o2ad8o1836iq ANSI-Commercial 9ay0wu3q-yz70-690h-8071-g0z2u8k1026q 8mk7ct6x-ki34-219b-9821-y1w0k7f8029v ANSI-Medicare Part B [id number] ANSI-Commercial b3r61bf1-1vkb-0532-n1t1-3336078bpu4p j4k99nt9-3cas-1154-l4i8-9932808oye5e ANSI-Commercial b7x17666-l06f-871y-na13-hbrpp3z7y3b7 r6c13970-o58q-011e-dd68-ymghc2l0p6r4 ANSI-Commercial 245w22k7-0386-62h7-lb31-126x89jxkv00 671i94g6-1213-66s9-xe12-133u96stby15 ANSI-Commercial 9306edwg-110a-1u450s06-8s50-1370v55993tw 2560ifmz-794a-1t047e14-6c84-5447j90162jy ANSI-Medicare Part B [id number]-o8l63xmdb56h ANSI-Commercial ai800n15-4179-8t6f-95nh-34a167qzmw0h rn347g78-9139-4z7y-61oo-60j190mkxp7x ANSI-Commercial [id number] 406089j9-5a42-5k52-7y70-7v6w1420755f ANSI-Medicare Part B [id number] ANSI-Commercial 7731i15h-79g3-79h6-r962-jk1x664s666v 3489m85g-40z6-70d4-m342-hi3i842n830m ANSI-Commercial w227u6h7-73ih-23me-5968-tror3a696895 q034n5u0-90pa-64zq-1860-wyik2c930303 ANSI-Commercial igsyx46r-8b74-57rb-h971-46oe753fx809 mhlqz44w-9q88-79nj-s408-27xr638ne705 ANSI-Commercial 25nu3gm8-6055-716s-mep2-071ig76h2r0w 35dm2wf9-9723-874a-ndm0-487lr58r3b8g ANSI-Medicare Part B [id number] ANSI-Commercial 5617673f-n3gw-2pki-gvk8-49n42tj12z5c 9144859y-p9br-8lij-qej0-01u80gk16l0x ANSI-Commercial 1332a608-6b94-9y91-41fm-y6os5f1i9c90 1469e623-7h37-9a44-70na-e2kp1d4e6k23 ANSI-Medicare Part B [id number] ANSI-Commercial 420n2lu9-715i-942y-8mt4-6n185d30506w 436a9jh6-285j-968n-7ld7-5i206y67996l ANSI-Commercial g2653w62-7027-3k0a-l0zb-g2005m926b1r v2020y51-0953-4d0z-r6eq-b9014l134c3u ANSI-Medicare Part B [id number] ANSI-Commercial 25o0t832-4gx8-28a6-nb99-w6n2y3vo139f 31p3w163-5tt5-83q4-la04-h1i6b7ru808l ANSI-Commercial dra45882-p421-790y-n118-g50322p978qu rkh60280-h125-905j-b898-a90786j172ls ANSI-Commercial 88lx7357-33f2-0289-745w-k26b5n5765h5 85jp8504-68o5-4859-018v-r96o3a4099j6 ANSI-Medicare Part B 53u861r5-2a60-29za-5299-e5q12hggt4o4 58q904l5-8n64-33ms-6780-t0u35xruk1b1 ANSI-Commercial w17301td-kk0s-7u8a-905s-e42j4b21nf34 l40296ym-vg2o-1z8p-889y-h36s8k98xn44 ANSI-Commercial d313pp15-0p5u-8485-m17v-a7u7263658q3 x554xh48-1n7f-5818-o97x-u6n7746848c5 ANSI-Medicare Part B s18vq0a9-696t-0722-7v1p-djg04sxg944g f32gp5m8-090c-5363-5r7i-mwy14pjg025f ANSI-Commercial gaak8320-09x5-10f8-xi04-28d895n2a92s esic4017-07a9-12w1-hq10-56r031k8i81g ANSI-Commercial pc6wap29-u62p-77mw-5gs4-c181p50ou3or gb8qnp67-h88m-94mx-0sh6-z270p85hd7qb ANSI-Commercial 84139a93-74dj-2d56-987m-92sl0ga49432 37663x87-70dn-9w92-157m-13hx0od99143 ANSI-Commercial e0j7h6bt-5038-8z79-d1qj-293p9e1x921f y4w7e3pn-4675-8a98-c5bv-927c0d8a154j ANSI-Medicare Part B m5op4ei1-r4w5-6953-09ou-s7kr16nv999j f5lu6sc3-u3u9-2657-62qq-c8hp28wb392c ANSI-Commercial h3oi320n-8596-8572-m09g-8654xf2ta426 i3rn273g-4872-3522-r87k-7747et5cw449 ANSI-Commercial 4ttd5326-a6f3-5515-43wb-0h1g7qiy4aw1 6ies1456-p8o9-5974-01pl-6i7v5rlb7jw7 ANSI-Commercial 77e8t3z6-4i93-18c0-n076-ulptxm8095yc 26a2e4i7-4r32-88h6-h387-vlvrrl4125rv ANSI-Commercial h66d9317-687u-8q29-4r9u-8r3936vq0474 f12c9541-638h-5q23-1a9w-6p1199tj7964 ANSI-Commercial y29mt84o-18pg-6001-5sn4-u46t7r176e3f b07xo57w-60ys-6169-7zf7-b66m9l621p2g ANSI-Medicare Part B c1v6p1ow-11l8-3v55-1615-8mga9e879284 t2y5u0lh-06d3-9b90-7472-0tbi5g371058 ANSI-Commercial 5067k538-5932-57dq-e132-n216bb7kxpt5 0020s716-1310-73bw-n989-n243wm5cwhg4 ANSI-Commercial u51o4564-49i5-45yo-l6tx-p85f7kfz86a4 n45h2853-23a0-48pe-s4ql-x44a2elj55i9 ANSI-Commercial 35x589wk-1blb-26a9-5h5q-96i77156e58k 33l603yn-6qep-02e4-9n9u-43n53293b77b ANSI-Medicare Part B 98m5d7a5-6p43-74y4-q137-2nd089t01wm4 85f3y5t2-4e12-62c3-c618-1ap851m02yk9 ANSI-Commercial gs99r2x9-f26y-96ho-gj6i-03lzf657s5gc rs56b4g1-b59x-49ly-vq1k-01obl557u6xo ANSI-Commercial uu2auws4-6e7s-1b9d-95r6-6b9t9ip9866f ho3olew4-2b5g-5g9z-84l0-3i6r5qx9005v ANSI-Medicare Part B dhz789m8-ew2m-4e24-y1ck-4he9q4252y0d lsa820m6-wm5v-2t91-u9ng-2kb1x9047b5u ANSI-Commercial oj6j093y-7452-6vi5-e460-03rt2k96dt2l fm4k014y-0984-6uz3-p265-07bo0c49fd7m ANSI-Medicare Part B p6j103q3-zoh2-8498-63p9-1xd64664f04c k7u376s5-onl2-3031-62a8-7dq94249j51z ANSI-Commercial h63z757y-5or5-2a0i-9207-130fl0gmm514 i51j064p-5gz5-4e4f-9095-491ny7uoo677 ANSI-Commercial 333p90ne-q3i5-7638-i181-a3e4348n6opp 271f30xa-k4i6-3129-j492-h0p2394b7gej ANSI-Commercial 7b2938to-98y6-9602-722f-l8766mqt9583 8b0998ex-95h7-9836-248p-r5987rrc1887 ANSI-Commercial 51u9o658-wc8h-4j17-3800-18r49044stg5 02p2j488-cr8f-8k75-7093-21f53125zuk6 ANSI-Medicare Part B n479bv49-74r2-66t9-99ah-m05v62pj3iif m162xt63-06i7-28d4-09ir-q52s27bq0mpm ANSI-Commercial 6az7e94i-zo51-1q29-yq8j-47245nrgi65v 0bg4a34c-dh69-6y86-ri2i-88376tvyh66c ANSI-Commercial y89s14lq-x24s-20d9-u882-426770616v43 n32e28ro-x25d-00l2-i053-361766245m97 ANSI-Commercial w911xqac-ps99-2jry-oub8-pcl4822707pn l919gjtn-wa32-0oug-zyr5-uyn0306924cz ANSI-Commercial pb78555r-x1eo-6fy6-t86c-7ph7gp732zuv mv92720u-t0iv-2yz4-y00o-7uf1ry363qyg ANSI-Medicare Part B q97n503i-8q7h-3311-jps9-1sa0g7nw94p1 i67p536b-3f4h-9310-fzr8-6ay7d4wy19v9 ANSI-Commercial 0fl6e3wv-6z7y-7z57-8d47-796fq2sg7e7z 3ny6b1cl-8l0b-5c55-0y79-816ja2jb9b4o For Life - [facility] Part B [id number] [id number]72.41764.0 Family Dependent 1 [id number] [facility] [id number] [id number]72.303 39.0 Self [id number] Medicare (Part B) Medicare Primary [id number] 2.16.840.1.244875.3.227.99.572.95390.0 Self 2 [id number] ANSI-Commercial 61y46296-40kd-6go3-8419-6384wx8401i8 89e25017-27cu-4hd8-0157-9911dg8886c3 ANSI-Medicare Part B 93387j33-y5yg-4207-r015-002xo0892z4w 69022l21-t6ut-9424-k969-270er3307a7e ANSI-Commercial s72dn897-15vz-6v14-c5a7-997h0446x901 v63fw834-06ic-8d46-t6x4-038p2783f880 ANSI-Commercial 22u976p1-38tf-6519-15tk-08rq9f950029 05c008k2-79iq-7463-78qk-00kq1q320103 ANSI-Commercial 0d4s44hc-7805-49g5-bt0r-52m4p1pt599n 8l6u60an-3768-30f1-cr0f-09z6d5sl843y ANSI-Commercial 694439u5-s5kd-092z-pcp7-1r7673371u50 610631z0-u3le-307q-uph8-9y4559641p44 ANSI-Medicare Part B 951zjt5q-0398-6972-3m3y-6j90lf1261dy 219vbg7s-0953-6156-7i7z-6s50ve4822lm ANSI-Commercial 64fzbh4h-3r4y-5ge4-b4w7-80ng28457qp3 31uyuk2w-7e5g-8we8-j9y7-37rj55458wy8 For Life - [facility] [id number] 2.16.840.1.127238.3.227.99.572.57903.0 Family Dependent 1 [id number] [facility] Part B [id number] 2.16.840.1.688955.3.227.99.572.303 39.0 Self [id number] Medicare (Part B) Medicare Primary [id number] 2.16.840.1.919590.3.227.99.572.23785.0 Self 2 [id number] ANSI-Medicare Part B 0158mp8m-9376-9mo5-l64v-f3t4o583ax51 7943ix0u-3192-3rp2-b43m-k7i8j358hc53 ANSI-Commercial 5s394r44-6b47-8563-k80w-ib8o0w564w61 9h021o02-1k48-3515-g20w-fe3r1c667n13 ANSI-Commercial 8442x5m7-45yw-3h14-202q-281945926658 9018j3b8-10yb-3c01-602m-742411742603 ANSI-Commercial 22b2i690-7b92-8938-m3v4-wa3gb08tu6jt 43z9n183-5x54-2314-s8n1-ra2st46iu4cu ANSI-Commercial bdi98su9-281n-567c-q681-8o0124t10428 nhg64ii5-645r-918p-p946-5n5706b67618 ANSI-Medicare Part B [id number]-619s-7nq7-97y1gwen9823 800fs980-901a-331r-5bj3-07y1lqmh2511 ANSI-Commercial 3d8yd8m2-4600-3j65-q06s-4u891p9p0420 6k2ag0z8-0779-3z77-l79m-2g852a3i7329 ANSI-Commercial 6ko487on-o534-7827-i484-11dh9g96k269 7tr651qg-l194-4949-x498-51mh9i89r039 ANSI-Commercial 1lp92d5f-ode7-0844-d058-v595bji76i94 0ww23g3a-gzp6-2137-q904-j330lnm06y34 ANSI-Medicare Part B [id number]-13jn-r5s6-75x99twuy2q8 0l7b65s3-142l-60wg-t8n2-43d85ufut2o7 ANSI-Commercial omq7endh-518b-852w-y493-3306vl76bhe4 zon3cauh-883d-624z-n445-1709db03ock5 ANSI-Commercial 48uc33s3-955g-21i7-7246-0vp60afl4q58 10bp05f4-702i-75d2-7754-5ir94hzf0a30 [facility] [id number] [id number]-bzb9-2002-650x-4vep1547j768 ANSI-Commercial 152319k6-2n40-9q26-o170-9v39719v6117 323899i7-1m29-6d72-q520-2s16406z5101 ANSI-Commercial kfs588tk-1bl2-61a0-mct9-xcn9041x6r35 wsm186nd-7ce1-27l6-vkl3-pga0109l6j55 ANSI-Commercial 09m809r3-zv37-0f00-901e-g6d0ef9n30q7 47g093i6-ev24-3m70-515g-r5h1mf8a58j6 ANSI-Commercial 0o073z2z-tlm7-4a52-0p01-0737y812amk8 2b520b2v-hgs4-5q68-7j60-5159x200kai9 ANSI-Medicare Part B [id number]-u4xly7et054h a20616l5-3704-2132-495s-h3xsw1fg056n ANSI-Commercial o6q8v6r4-433e-2555-dc40-3ajae4c3601x m4k4y5x7-511k-3953-kc74-6qzaa7q4112a ANSI-Commercial 8884190w-39p7-7s75-j7m0-v97260n1y8u6 5743784v-47t9-1z56-x9k2-r74688j1j9q2 Health Net [employer] Standard Health Maintenance 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 (HMO) 11 [id number] 2.0.1.703435.3.227.99.8646.8124.0 Family Dependent 1 [id number] Ghi Medigap Part B [id number] 2.0.1.859201.3.227.99.8646.812 4.0 Self [id number] [facility] Medigap Part B [id number] 2.0.1.848162.3.227.99.8646.812 4.0 Self [id number] Medicare [facility] Medicare Primary [id number] 2.0.1.520662.3.227.99.8646.8124.0 Self 2 [id number] ANSI-Commercial sg01dcn9-99f0-1g33-tn5h-wb0f1732e64m zm78vva9-77w8-0j97-yh7q-sk8r6357r02f ANSI-Commercial w66v6ff0-1i00-2931-637e-oe8n72h7l814 h99i1bd3-1z17-4214-624z-dj7x23y7d346 ANSI-Commercial x827b98c-b777-224a-ry9i-qn7cq73h18q5 z162d41s-u835-550b-gt1p-sq4ry44x81y1 ANSI-Medicare Part B [id number]-4il0-[id number] 8s0fu0c5-33kp-3ve5-z531-016u72401592 ANSI-Commercial 71f59619-6y9c-5x67-3p72-a91299105d42 04z62475-5f7u-7j61-2u74-z13060983w85 ANSI-Commercial 79hediw5-y7un-8248-ul16-au5k8e1973hn 32muixz2-k9me-5470-ez06-ig9e2g3626xb ANSI-Commercial 735p3833-0mu6-5rj2-9909-0yk8607u6763 335e2856-6kg9-2gy6-8574-0md0489c9025 [facility]-Medicare Part B [id number]-qw96-0603-u7b8-q1zbm8f5lt06 t96nf8j6-ys67-5961-n9l3-g6vfa1b7xa90 ANSI-Commercial 062rzoha-7878-8365-944d-zob4g9wpi52q 032qhvfz-8887-9434-944d-irx8z3hcx21f ANSI-Commercial fae3rm91-4764-9qw0-144x-3vkp1uni3k98 dkc8zr86-1830-2tu8-966i-7xea8gfd9z15 ANSI-Commercial 9zhw1ho8-91b3-2231-6vw7-2i0j6291nw04 0qhe9jt5-97l6-8221-3xb6-3s4c3409oh03 [facility] B [id number]-t94a-rq107ip7k87g oh4o4301-6xr4-23p4-v28t-vx519vx6x54o ANSI-Commercial 0ui1752a-839a-1310-lnu0-sv9832oz24su 0nc8724o-858v-9561-skr1-jw8194cq27th ANSI-Commercial 4j92ud0n-991m-97y0-nn25-0761774f006n 4k12xc5k-082u-81t5-yf85-6238283h533g ANSI-Commercial 20906032-f95r-4007-c693-87l681kp53zn 85116972-c13p-4932-x355-55m342ja98xj ANSI-Medicare Part B [id number]-8584-id54-4hfl3851637g 4ci674cn-239n-3779-gm29-4yxk1965205q ANSI-Commercial t48sh2pq-y4t1-79k6-0f52-672m999u25u6 y17rz9lq-k3t0-89h4-4q89-591x304k32z2 ANSI-Commercial 7179e820-i38a-3206-899r-47fi5os0318g 5550v143-l52x-7083-321s-57vl8dh0826z ANSI-Medicare Part B [id number]-4f76-5l22-26bya9w255b7 183z21u4-02uf-0z08-5b24-40tzx5p985p1 ANSI-Commercial uvt34m8r-a6gt-9l95-0s9f-47p7gy927f12 hip61v7k-i1vv-9f66-9y7f-72v0jz882y45 For Life - WPS [facility] [id number] ..1.144956.3.227.99.572.72781.0 Family Dependent 1 [id number] Umr Medigap Part B [id number] ..1.193861.3.227.99.572.303 39.0 Self [id number] Medicare (Part B) Medicare Primary [id number] 2..1.309718.3.227.99.572.73786.0 Self 2 [id number] ANSI-Commercial 6y64s375-q4v3-9121-7oed-qu49mbvx0339 1a63h994-z6d5-6265-7gzk-bx35atjc7853 ANSI-Medicare Part B [id number]-49x1-dagi-au87317u3jc5 w5xc791p-845p-79x1-lpeu-rx83186y6bb2 ANSI-Commercial 2ehb0gw3-7292-71c5-q042-7193t8i25e50 5fdm3om2-0351-56y4-z343-1066b9s88n78 ANSI-Commercial 82k603l7-1jq6-87c6-f573-8854925ty8pz 59u943t9-8bc5-95k6-o404-9513205se9xz [employer] [id number] S [id number] MEDICARE - [place] [id number] S [id number] ANSI-Commercial 0m03058g-4158-1ik6-1wu0-6i961oj3m172 1r72935y-2382-7vm3-7hr8-6c929cd9b998 ANSI-Medicare Part B [id number]-0p60-hw8j43424k1k r5339a13-8k43-513b-8i64-ep2y37232q7l ANSI-Commercial t60k41q6-31cc-5rli-p5b4-0oud64qdv5gm o61k65y6-03ne-7ich-i8y4-0rbr30tvf2uv ANSI-Commercial x824h533-o031-49jl-ofdl-33801v5ba470 k571h429-z466-42ao-txxs-21819j4ha098 [facility] [id number] [facility] [id number] MEDICARE [id number] SP [id number] A ANSI-Commercial 9c160s51-w568-80u2-01h4-4x3k674z455v 8a549s20-b311-23m7-35y0-6x1s403i087l ANSI-Medicare Part B [id number]-770542g48879 6ux90129-47x8-0443-3jvr-462759x97383 ANSI-Commercial 432c687y-0qq7-435r-a3o7-g6yx6226850u 094u642w-6it3-207h-o2s0-k7ho9825877c ANSI-Commercial 4b1437j6-nrby-4u4s-suq6-v9d07i5g7k63 1r2316z4-nzrc-1q7e-gvn2-h6y31x9g2s94 ANSI-Commercial w9o00691-1073-2d47-d078-225x4nznmy3a k8n18006-6359-8x82-b227-767i2kqjek4i ANSI-Medicare Part B [id number]-g893-72mk-mg72-67018p381547 3v04k952-x508-20ud-gi97-23173o370639 ANSI-Commercial 9h87u58x-989d-2069-in36-3k74wuv7c45y 2f30v33a-477d-8496-yv53-7f38lvd6e36n ANSI-Commercial 212yxw71-ymk9-602s-z578-881b66710295 431hlu67-obz8-771x-c278-724w26557748 For Life - WPS [facility] Part B [id number] .1.528781.3.227.99.572.92744.0 Family Dependent 1 [id number] Umr [facility] [id number] .1.802773.3.227.99.572.303 39.0 Self [id number] Medicare (Part B) Medicare Primary [id number] ..1.728087.3.227.99.572.72234.0 Self 2 [id number] For Life - WPS [facility] Part B [id number] 2.16.840.1.747923.3.227.99.572.34907.0 Family Dependent 1 [id number] r [facility] Part B [id number] 2.16.840.1.440886.3.227.99.572.303 39.0 Self [id number] Medicare (Part B) Medicare Primary [id number] 2.16.840.1.206361.3.227.99.572.88213.0 Self 2 [id number] ANSI-Commercial ulz889zl-0t79-44au-7i80-m91im528w281 gvt205hn-1o76-47xz-3o21-o51nq357z154 ANSI-Commercial y182sh47-2k43-5a46-k3q2-79x5bpk5zm53 e197we32-6g06-0t85-n9k9-49c5wvy5qn59 ANSI-Medicare Part B [id number]-6837-251i-k098-03633x05l86h aze2233r-0672-983d-z853-89707f53q33r ANSI-Commercial 52uwa0x3-0x44-9vj9-su21-4l5641664818 40nhk2m2-3g77-1mh5-sd55-7t0361241950 ANSI-Medicare Part B [id number]-bw0g-4181n6r2929l 089339c8-24d9-9k33-ww0c-1894g6i9706d ANSI-Commercial 756231xj-47x4-676s-12a0-g2c20m4n57iz 123268zh-34g6-568t-07u7-l5t80y3u19cz ANSI-Commercial 35628459-9ef3-8356-s981-9bz5jld67s4i 63442069-7eq6-6434-k697-1bf7cos66r0t ANSI-Commercial 8870z460-u5f0-9d50-w253-ir94j4si6w61 6800x302-l5i8-6o33-d898-mh98i8tv6e40 For Life - WPS Medigap Part B [id number] 2.840.1.995117.3.227.99.572.60206.0 Family Dependent 1 [id number] r Medigap Part B [id number] 2.16.840.1.866868.3.227.99.572.303 39.0 Self [id number] Medicare (Part B) Medicare Primary [id number] 2.0.1.869798.3.227.99.572.57988.0 Self 1 [id number] [facility] [id number] SP [id number] [facility] PPO O [id number] S [id number] MEDICARE C [id number] S [id number] A [facility]YSIC[facility] [id number] 01 [id number] [facility] -PHYSICIAN [id number] 1 [id number] MEDICARE PART A -O [id number] 18 [id number] [facility] -O [id number] 18 [id number] MEDICARE PART A -I/P [id number] 18 [id number] [facility] - I/P [id number] 01 [id number] [facility] -O/P [id number] 18 [id number] N REGIONAL CLAIMS [facility] [id number] 01 [id number] For Life - WPS Medigap Part B [id number] 2.840.1.311390.3.227.99.572.86592.0 Family Dependent 1 [id number] Medicare (Part B) Medicare Primary [id number] 2.840.1.348999.3.227.99.572.94460.0 Self 1 [id number] [facility] PHCS Ppo Medigap Part B [id number] 2.0.1.202573.3.227. 99.572.06884.0 Self [id number] For Life - WPS Medigap Part B [id number] 2.840.1.825623.3.227.99.572.95171.0 Family Dependent 1 [id number] Medicare (Part B) Medicare Primary [id number] 2.16.840.1.487572.3.227.99.572.24319.0 Self 1 [id number] Health Net Fed Standard Health Maintenance 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 (HMO) 11 [id number] 2.16.840.1.064528.3.227.99.8646.8124.0 Family Dependent 1 [id number] Ghi Medigap Part B [id number] 2.16.840.1.701476.3.227.99.8646.812 4.0 Self [id number] [facility] Medigap Part B [id number] 2.16.840.1.199996.3.227.99.8646.812 4.0 Self [id number] [place] Medicare Primary [id number] 2.16.840.1.200004.3.227.99.8646.8124.0 Self 1 [id number] For Life - WPS Medigap Part B [id number] 2.16.840.1.311140.3.227.99.572.97222.0 Family Dependent 1 [id number] Medicare (Part B) Medicare Primary [id number] 2.16.840.1.559133.3.227.99.572.17785.0 Self 1 [id number] For Life - WPS Medigap Part B [id number] 2.16.840.1.885975.3.227.99.572.26475.0 Family Dependent 1 [id number] Medicare (Part B) Medicare Primary [id number] 2.16.840.1.563246.3.227.99.572.87287.0 Self [id number] [id number] MEDICARE [id number] SP [id number] A Medicare (Part B) Medicare Primary [id number] Self For Life - WPS Medigap Part B [id number] Family Depen dent [place] Medigap Part B [id number] Self Medicare Medicare Primary [id number] Self [facility] [place] [place] [id number] HU2 [id number] [facility]/ AD O [id number] P [id number] [facility] [place] O [id number] S [id number] [facility] O [id number] U 1 [id number] POM[facility] O [id number] S [id number] MEDICARE OUTPATIENT M [id number] S [id number] [facility] O [id number] U [id number] MEDICARE [id number] SP [id number] R [facility] [id number] SP [id number] FOR LIFE [id number] HU2 114 [id number] MEDICARE PART A -O/P [id number] 18 [id number] UMR -O/P [id number] 18 [id number] [facility] - O/P [id number] 01 [id number] R [facility] [id number] SP [id number] Humana [id number] 0 [id number] R [id number] 0 [id number] Medicare Part B [facility] [id number] 0 [id number] FOR LIFE UNAVAILABLE 01 U NAVAILABLE [facility] MEDICARE PART [place] [id number] 18 [id number] UMR [place] [id number] 18 [id number] MEDICARE [id number] SP [id number] MEDICARE [id number] SP [id number] UMR O [id number] S [id number] MEDICARE C [id number] S [id number] FOR LIFE O [id number] S [id number] MEDICARE PART A -O/P [id number] 18 [id number] [employer] [place] Other 0 [id number] Self 0 Medicare Part B [facility] Other 0 [id number] Self 0 ANSI-Commercial 89435r67-xw4o-27p0-632i-19tu7331u7p6 53617s71-wp6f-07k3-623m-94gv0561r9h2 ANSI-Commercial 5i535i16-276i-0257-m966-f03w479i2f28 0m922e61-263d-1855-u277-m68n506w1s21 ANSI-Commercial 2s03z99q-l094-18ne-gy34-am74ftn4n6j7 5l55h82a-d096-07rl-om33-dq89krf8a1u2 ANSI-Medicare Part B [id number] [id number]-[id number] ANSI-Commercial 18053ejk-s13r-6sm7-c06g-324rz8prso1z 17511llv-l10l-6pp2-a34y-012nx0ayza4b ANSI-Commercial 4v268189-32vr-5795-p42j-t55f51028165 7k097282-40tz-7020-b07x-k62k95202470 ANSI-Medicare Part B [id number]-[id number] [id number]-m073-7w61-b7q6-85575l13y0mk ANSI-Commercial c1759e7i-i020-47oy-gv64-85y5t967w3cp m7176o6n-i125-25ea-jn79-63a9k449h1kp ANSI-Commercial 1q473538-1p0o-6369-6me2-1e00z36r20dm 7u259916-6q5r-0367-4hc8-5e36i21u17xe ANSI-Commercial 512892vj-2574-5982-4z60-7y7p3q761j19 110883ds-8988-0952-6h94-7d2m2h827v86 ANSI-Medicare Part B [id number]-8576-[id number] n6x6mq39-b05h-8050-a733-vl6r2k79d569 ANSI-Commercial 7s3n6947-b2t3-9k7w-4nz8-959130k41o56 1h0x6188-y1p6-7l2o-9xt7-671681a90w75 ANSI-Commercial p1s7a67v-f0e7-445m-5211-6qb077476zd6 t7p6e02d-v2a4-279x-2217-3vt584857rd8 ANSI-Commercial a167bp31-3q38-340q-if54-061zh9yf174u j749ta59-0o93-460o-cr45-618zf9ss372o ANSI-Commercial 190p6198-218x-3x81-4qf0-6wyx29g20s9b 311w1520-238n-1f89-4fh5-2fdq51c68v8c ANSI-Medicare Part B [id number]-[id number] 887623te-0t67-7g7t-a0f0-19lk4vd155g3 For Life - WPS Medigap Part B [id number] MRN.572.[id number]-d2561trq0uev Family Dependent [id number] Umr Medigap Part B [id number] MRN.572.p58s64r5-1a33-0734-51sy- s9684vfi4pra Self [id number] Medicare (Part B) Medicare Primary [id number] MRN.572.n28x79i5-9o43-6798-21yk-g1950ztg3zil Self [id number] [facility] PHCS Ppo Medigap Part B [id number] MRN.572.[id number]-y1925lnb2giu Self [id number] ANSI-Commercial 327tm7vd-s78d-1260-2g6u-1vls5i9x6e14 813gx5rp-a62e-4071-0l5f-3ulk4f9q7s43 Problems, Conditions, and Diagnoses Code Display Name Description Problem Type Effective Dates Data Source(s) I12.9 Hypertensive chronic kidney disease with stage 1 through stage 4 chronic kidney disease, or unspecified chronic kidney disease HYPERTENSIVE CHRONIC KIDNEY DISEASE W STG 1-4/UNSP Diagnosis 08/02/2021 11:33:00 AM EDT [facility] R80.9 Proteinuria, unspecified PROTEINURIA, UNSPECIFIED Diag nosis 08/02/2021 11:33:[address] [facility] E83.52 Hypercalcemia HYPERCALCEMIA Diagnosis 08/02/2021 11:33:[address] [facility] N18.30 CHRONIC KIDNEY DISEASE, STAGE 3 UNSPECIF CHRONIC KIDNEY DISEASE, STAGE 3 UNSPECIF Diagnosis 08/02/2021 11:33:00 AM EDT [facility] N18.32 CHRONIC KIDNEY DISEASE, STAGE 3B CHRONIC KIDNEY DISEASE, STAGE 3B Diagnosis 08/02/2021 11:33:[address] 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 Diagnosis 04/05/2021 01:18:00 PM [facility] Z9481 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 Diagnosis 10/05/2020 12:00:00 PM [facility] D7581 Myelofibrosis Myelofibrosis Diagnosis 10/05/2020 12:00:00 PM [facility] [id number] Essential hypertension Essential hypertension Problem 05/31/2021 12:00:00 AM EDT [facility] ([facility]) R13.10 [id number] Dysphagia, unspecified type Problem 05/04/20 12:00:00 AM EDT [facility] ([facility]) F43.22 [id number] Adjustment disorder with anxiety Problem 03/26/2021 12:00:00 AM EDT [facility] ([facility]) E27.40 [id number] Adrenal insufficiency Problem 02/18/2021 12: 00:00 AM EDT eCW1 ([facility]) R94.31 Electrocardiogram abnormal Electrocardiogram abnormal Problem 02/10/2021 12:00:00 AM EDT [facility] ([facility]) E83.52 [id number] Hypercalcemia Problem 02/04/2021 12:00:00 AM EDT eCW1 ([facility]) I15.0 [id number] Renovascular hypertension Problem 01/19/2021 12:00:00 AM EDT eCW1 ([facility]) F33.0 [id number] 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 Problem 01/19/2021 12:00:00 AM EDT eCW1 ([facility]) F43.23 [id number] Adjustment disorder with mixed a nxiety and depressed mood Problem 11/17/2020 12:00:00 AM EST eCW1 ([facility]) Surgeries/Procedures Procedure Description Date Indications Data Source(s) ECG ROUTINE ECG W/LEAST 12 LDS W/I&R 02/10/2021 12:00: 00 AM EDT [facility] ([facility]) Results ID Date Data Source [id number] 09/21/2021 02:10:00 PM EST [facility] Name Value Range Interpretation Code Description Data Aminta rce(s) Supporting Document(s) COMPREHENSIVE METABOLIC PANEL [facility] COMPREHENSIVE METABOLIC PANEL Sodium [Moles/volume] in Serum or Plasma 134 mEq/L 134 - 153 [facility] Potassium [Moles/volume] in Serum or Plasma 3.5 mEq/L 3.6 - 5.0 L [facility] Chloride [Moles/volume] in Serum or Plasma 94 mEq/L 98 - 107 L [facility] Carbon dioxide, total [Moles/volume] in Serum or Plasma 29 MEQ/L 22 - 30 [facility] Glucose [Mass/volume] in Serum or Plasma 197 MG/DL 70 - 99 H [facility] BUN 61 MG/DL 7 - [address] [facility] Creatinine [Mass/volume] in Serum or Plasma 2.7 MG/DL 0.7 - 1.5 H [facility] BUN/CREAT 23 8 - [address] [facility] Protein [Mass/volume] in Serum or Plasma 6.3 G/DL 6.3 - 8.2 [facility] Albumin [Mass/volume] in Serum or Plasma 4.3 G/DL 3.9 - 5.0 [facility] Globulin [Mass/volume] in Serum by calculation 2.0 GM/DL 2.4 - 3.2 L [facility] A/G RATIO 2.2 0.8 - 2.0 H [facility] Calcium [Mass/volume] in Serum or Plasma 15.4 MG/DL 8.4 - 10.2 HH [facility] CALL/ READ BACK NEISHA WEIR/15.4 [facility] TEST REPEATED AND CONFIRMED BY: ALY [facility] DATE/TIME 09/21/21 14:10 [facility]spital Bilirubin.total [Mass/volume] in Serum or Plasma <0.7 MG/DL 0.2 - 1.3 [facility] Alkaline phosphatase [Enzymatic activity/volume] in Serum or Plasma 76 U/L 38 - 126 [facility] Aspartate aminotransferase [Enzymatic activity/volume] in Serum or Plasma 28 U/L 5 - 40 [facility] Alanine aminotransferase [Enzymatic activity/volume] in Seru m or Plasma 30 U/L 7 - 56 [facility] Anion gap 3 in Serum or Plasma 11.0 mmol/L 8.0 - 16.0 [facility] AGE 66 yrs [facility] al NON-AA GFR 19 mL[facility] A[facility] AMER GFR >[address] [facility] Male GFR In terprentation [...] >32 mL/min Normal ID Date Data Source [id number] 09/21/2021 02:08:00 PM EST [facility] Name Value Range Interpretation Code Description Data Aminta rce(s) Supporting Document(s) Magnesium [Mass/volume] in Serum or Plasma 2.3 MG/DL 1.7 - 2.2 H [facility] ID Date Data Source [id number] 09/21/2021 01:47:00 PM [facility] Name Value Range Interpretation Code Description Data Aminta rce(s) Supporting Document(s) Lactate dehydrogenase [Enzymatic activity/volume] in Serum o r Plasma 190 U/L 135 - 214 [facility] ID Date Data Source [id number] 09/21/2021 01:28:00 PM [facility] Name Value Range Interpretation Code Description Data Aminta rce(s) Supporting Document(s) CBC W/AUTOMATED DIFF [facility] COMPLETE BLOOD COUNT Leukocytes [#/volume] in Blood by Automated count 5.1 10^3/uL 4.2 - 1 1.0 [facility] Erythrocytes [#/volume] in Blood by Automated count 3.22 10^6/uL 4. 20 - 5.40 L [facility] Hemoglobin [Mass/volume] in Blood 11.1 g/dL 12.0 - 16.0 L [facility] Hematocrit [Volume Fraction] of Blood by Automated count 32.7 % 3 7.0 - 47.0 L [facility] Erythrocyte mean corpuscular volume [Entitic volume] b y Automated count 101.6 fL 81.0 - 101 H [facility] Erythrocyte mean corpuscular hemoglobin [Entitic mass] by Automated count 34.5 pg 27.0 - 34.0 H [facility] Erythrocyte mean corpuscular hemoglobin concentration [Mass/volume] by Automated count 33.9 g/dL 31.0 - 36.0 [facility] Erythrocyte distribution width [Ratio] by Automated count 13.1 % 11.5 - 14.5 [facility] Platelets [#/volume] in Blood by Automated count 177 10^3/uL 150 - 45 0 [facility] Platelet mean volume [Entitic volume] in Blood by Automated count 10.5 fL 7.4 - 10.4 H [facility] Neutrophils/100 leukocytes in Blood by Automated count 48.3 % 37. 0 - 80.0 [facility] Lymphocytes/100 leukocytes in Blood by Manual count 28.5 % 25.0 - 40.0 [facility] Monocytes/100 leukocytes in Blood by Automated count 14.5 % 3.0 - 8.0 H [facility] Eosinophils/100 leukocytes in Blood by Automated count 7.7 % 0.0 - 7.0 H [facility] Basophils/100 leukocytes in Blood by Automated count 0.8 % 0.0 - 2.5 [facility] %IG 0.2 % 0.0 - 0.[address] [facility] %NRBC 0.0 % 0.0 - 0.0 [facility] al Neutrophils [#/volume] in Blood by Automated count 2.44 10^3/uL 2.00 - 6.90 [facility] Lymphocytes [#/volume] in Blood by Automated count 1.44 10^3/uL 0.60 - 3.40 [facility] Monocytes [#/volume] in Blood by Automated count 0.73 10^3/uL 0.00 - 0.90 [facility] Eosinophils [#/volume] in Blood by Automated count 0.39 10^3/uL 0.00 - 0.70 [facility] Basophils [#/volume] in Blood by Automated count 0.04 10^3/uL 0.00 - 0.20 [facility] #IG 0.01 10^3/uL 0.00 - 0.[address] [facility] #NRBC 0.00 10^3/uL 0.00 - 0.[address] [facility] MANUAL DIFF NOT INDICATED [facility] RBC MORPH NOT INDICATED [facility] spital ID Date Data Source [id number] 08/31/2021 02:07:00 PM EDT [facility] ([facility]) Name Value Range Interpretation Code Description Data Aminta rce(s) Supporting Document(s) Calcium [Mass/volume] in Serum or Plasma 9.7 [facility] ([facility]) Albumin [Mass/volume] in Serum or Plasma 3.0 [facility] ([facility]) Alanine aminotransferase [Enzymatic activity/volume] in Serum or Pl asma 39 [facility] ([facility]) Chloride [Moles/volume] in Serum or Plasma 99 [facility] ([facility]) Carbon dioxide, total [Moles/volume] in Serum or Plasma 24 [facility] ([facility]) Alkaline phosphatase [Enzymatic activity/volume] in Serum or Plasma 7 8 [facility] ([facility]) Potassium [Moles/volume] in Serum or Plasma 4.2 [facility] ([facility]) Protein [Mass/volume] in Serum or Plasma 6.4 [facility] ([facility]) Urea nitrogen [Mass/volume] in Serum or Plasma 39 [facility] ([facility]) Sodium 131 [facility] ([facility]) Aspartate aminotransferase [Enzymatic activity/volume] in Serum or Plasma 21 [facility] ([facility]) Creatinine For GFR 2.25 [facility] Glucose 168 83-110 [facility] ([facility]) ID Date Data Source [id number] 08/31/2021 02:07:00 PM EDT [facility] ([facility]) Name Value Range Interpretation Code Description Data Aminta rce(s) Supporting Document(s) White Blood Count 4.3 5.0-10.0 [facility] ([facility]) Red Blood Count 2.85 4.00-5.40 [facility] ([facility]) Platelets 181 172-450 [facility] Hemoglobin 10.1 [facility] ([facility]) Hematocrit 28.6 [facility] [facility] ID Date Data Source [id number] 08/30/2021 02:02:00 PM EDT [facility] ([facility] Name Value Range Interpretation Code Description Data Aminta rce(s) Supporting Document(s) Thyroid Stimulating Hormone 2.190 [place] DENT ([facility]) ID Date Data Source [id number] 08/30/2021 11:54:00 AM EDT [facility] Name Value Range Interpretation Code Description Data Aminta rce(s) Supporting Document(s) SARS-CoV-2 (COVID 19) NEGATIVE - SARS-CoV-2 (COVID19) [facility] This lab was ordered by [facility] a nd reported by [facility]. ID Date Data Source [id number] 08/25/2021 01:45:00 PM EDT [facility] Name Value Range Interpretation Code Description Data Aminta rce(s) Supporting Document(s) First Visit [facility] AYAHPs3kHgLIByDyQGZbDngXKGtfRBotNGKkG6A5HUezWb4IGIcbrxYgVUKuMf6+RYDgPX4wyq7hUCBs gMy [file] GE1ZqjgCN7ZbVUaE+tWCj14WrlGMzs1BKa2dtWqiFE4gmJx3LFdf+EXTERNAL RELATIONS DIRECTOR/Bin9dCUdRnXrIvj9HA9bzmI iz9HOc/4fVnWLaC2piuefLPE5KMHJjFbiXHfIa50ss 05M5wauRI6ycZ3nUNkVuxba7gPRpnxGqACYl8wJe4H78nCLrLNdDxXg8Y/Aq3I/lVmT6t5AJvpcbn9eD jC7uy1sdbckmgHr0oKCcr5IK0wPT/l4WQu+QA1IV9ZngPeOI0pKF9QH0Qsz/v1z0U8RSWSJa+CFXlMP5 w/jNFepA2ajNpNVQWBvm2A8f2TVND7UQOhL5MewG38 HR0GTWNHHycT4d04aAZvDvWli0uUdaZVE99lyhXdkm5g7VdeAyvEBbRz1T0Qxlc9pewJP9oi2HkJI5U/ ZSAa35Hd+cqaovtOrejSCeA5KNPX8frbdwiSr88NULNcOrqDSppkQO/kS5xldk6SMCGFl0WOoJ2h4YAA dKzct4D88TvlWz/HClqfL50uGY2upStd9zEmHlksxS Fmw9DopX5HUaVMCFS5p6TdJOlvXwDMscdMO8iKWQTiLL2Fp8XH2XC91pjRb3xW+gPn6lChmqRUnCfezQ gt6mppHP3ct1yvMhX38Ss5OgVSxAnabipq1BmhAti0t2/Lindsay/Cid5p1zjYHvmSWU+DoVeY3ARVPO8b0K [file] Chute Greaser+7SjdP9zykxay1ge9mRPhIF6mKBBCze5qKuS1F+jWyBIxHnLfLqB/135QdWU15RJtFMGxMVORNxeY+ [file] HFSeB4gyfOGhTW7+U+Fno3rP/kpqNe/HxnQfjQ+validation technician U18dycfY5uBPVuIiNHVVEEncanEkoOAyQPH81H8QHRHx9gmNffGk7P37Xg0utEz0UseY7pWrw+fh5nBN uZz8qzEmVP+pQ9/ZULY0jggHwP7/8VzzAGEpL4JGS7mF5s0VvgMVscuSTDw3kzYehaJa07uYrOPf69nS YlhW0eBo25Z4SL29xjQf1+M0rkPbU7ke9dYHjTWZk/ 4PliiSfGh8rmhf5CuJdBcXA1klm3Fbq/lWl1XpUARknTqYCm9+OYmz6RH0oQSfwWaH12/ICyxFXPbL9m 6YjD1b90pmKfq7c2y6/37tx8vrM9RRCIfhi86yhDHGCh+GRh1Tjn6qbhDebkGJEfxJVN5QLeX/ANYr+x p1GaTRk/9sF1jL8erPGBDEs/UbmmOuVUQbirqN+LZf eeqSmQc/VwH57qRilzRlTzGUwCHOJ7aglbDXhvhDvnNA8jDFxX5InrnMotasAKN3Bp+/Wlgsm/gsd/ZI nQo8q55JRcZWRxvMOjyKjVDBDgfl5q879PtG4qTUX0W1lrnJB7b6rWp3cApRD1acOV1wVI+9Y4/WV2KT fYx8G3l45G3z5u9jmSUE77zzmn3w0wQR1bor0J52NJ [file] 08Ffe1ChGreXx7D6++3goOOE/jlkt5Qfj0rNkf/SuSVe05nBIF/framing consultant+znuXm9zpObecibGqJ2V2jxOVBl [file] pf20f8ff4AbbRF1FiJKlY1KvGfy+IKNZizfopSmAxs+/zwp5YhJa/university relations director++xHriWi6/q8ySlxuWKz4rkeZ [file] sBNY1DDr+bottom painter/Hz08BLefIX8DnCljrdsjJv91z9MoZgIQEre0EYmfa1ISPjs94w+wdQFmCXmxzBQ7f+G [file] ventilation equipment tender+bouAWjIw0MYj3tArUC0dsjUN5Zn4dO1pJo5y+wT/Mc+jf+jEqWqoEChMlrCn581eShrXLA6tVofFx jnpovBucHA/LxKU2xZh6wrYBMvz5ry7+7U9+3Iq1Cs LD9dgD8NqmJULEDKwCtSI2bULKfOshAtPfpr6nFokqRjacyEDJUpeHGhei6TodaN1OtumMsvWB8pwpqv XoJ06CTW4pbkqYr2OKJnAhaNhlvhjOlpsLX2hfkZ1KEYTqb+bxf1deHhNRjLm+sYJJwEppgqJq/q4Lrt ckuSqBDkzHkj6v2YWaf358iIa7dcUWWCM635Dnn/BU tguoeLWfNR2SnJLJiaS+ZauB0KaTJgisnDolxZsz+kKFRzxyULIXUg61a8Iue2FfL379djPaTsxiyzBA ul7Mj17oI9I3HY+Dante+WNNtxX/+w+mR211w/zfh2pBYClLXn384fheddYTDsgv9Hbri85aq+mrL2XLfs [file] Gd0fkT3DmA13SA6oDMmvjxmzY4el4cS8sWLiPeK8QhmL//Miguel Angel+0Rt8t8UImyWTJRFTFQT5fOVGmUDD/D [file] sVZN1nNGYbxfgoupB7Tk/tour counselor+XYcKe/wDGhvnx4yAs [file] gA1zTKYWxVL+7004SUVSM/data analyst etl developer+VydHfjUqpU/f1fh+ [file] CRUISE COUNSELOR/kkwLvZqnt4OgHu++l1FrRdH0G7fiZGE/bmw+zKH [file] Will+RZVtCRj5TYvA5PKPknFOW1ouGYJGNwoPH0+pUiA0AWW2uu5JeZJEgXVldxwAiWtjYXUqhwFFgnWso YQBOScq5OoB7VR5JXPNGF9U= ID Date Data Source [id number] 08/02/2021 12:17:00 PM EDT [facility] FAX [phone] Name Value Range Interpretation Code Description Data Aminta rce(s) Supporting Document(s) GLUCOSE 169 mg/dL 74-106 H [facility] BLOOD UREA NITROGEN 61 mg/dL 7-18 H [facility] ital CREATININE 2.48 mg/dL 0.6-1.0 H [facility] SODIUM 143 mmol/L 136-145 [facility] POTASSIUM 3.9 mmol/L 3.5-5.1 [facility] CHLORIDE 105 mmol/L 98-107 [facility] CO2 26 mmol/L 21-32 [facility] CALCIUM 9.9 mg/dL 8.5-10.1 [facility] GLOMERULAR FILTRATION RATE 20 mL/min [facility] GFR IS CALCULATED IN mL/min/1.73m2 STAS L FUNCTION: >90MILDLY DECREASED: 60-89MILDY TO MODERATELY DECREASED: 45-59 MODERATELY TO SEVERELY DECREASED: 30-44SEVERELY DECREASED: 15-29RENAL FAILURE: <15 ALBUMIN 3.5 gm/dL 3.4-5.0 [facility] PHOSPHOROUS 4.1 mg/dL 2.5-4.9 [facility] ID Date Data Source [id number] 05/21/2021 06:57:00 AM EDT [facility] Name Value Range Interpretation Code Description Data Aminta rce(s) Supporting Document(s) Tacrolimus [Mass/volume] in Blood by LC/MS/MS 3.5 ng/mL 2.0-20.0 [facility] Trough (immediate ly following transplant) 15.0 Trough (steady state, 2 weeks or more after transplant): 3.0 - 8.0 Detection Limit = 1.0 Performed by LC-MS/MS technology. This test was developed and its performance characteristics determined by [facility]. It has not been cleared or approved by the Food and Drug Administration. ID Date Data Source [id number] 05/16/2021 12:04:00 PM EDT [facility] Name Value Range Interpretation Code Description Data Aminta rce(s) Supporting Document(s) CBC W/AUTOMATED DIFF [facility] COMPLETE BLOOD COUNT Leukocytes [#/volume] in Blood by Automated count 5.3 10^3/uL 4.2 - 1 1.0 [facility] Erythrocytes [#/volume] in Blood by Automated count 3.52 10^6/uL 4. 20 - 5.40 L [facility] Hemoglobin [Mass/volume] in Blood 12.4 g/dL 12.0 - 16.0 [facility] Hematocrit [Volume Fraction] of Blood by Automated count 36.3 % 3 7.0 - 47.0 L [facility] Erythrocyte mean corpuscular volume [Entitic volume] b y Automated count 103.1 fL 81.0 - 101 H [facility] Erythrocyte mean corpuscular hemoglobin [Entitic mass] by Automated count 35.2 pg 27.0 - 34.0 H [facility] Erythrocyte mean corpuscular hemoglobin concentration [Mass/volume] by Automated count 34.2 g/dL 31.0 - 36.0 [facility] Erythrocyte distribution width [Ratio] by Automated count 14.0 % 11.5 - 14.5 [facility] Platelets [#/volume] in Blood by Automated count 161 10^3/uL 150 - 45 0 [facility] Platelet mean volume [Entitic volume] in Blood by Automated count 10.7 fL 7.4 - 10.4 H [facility] Neutrophils/100 leukocytes in Blood by Automated count 52.5 % 37. 0 - 80.0 [facility] Lymphocytes/100 leukocytes in Blood by Manual count 33.2 % 25.0 - 40.0 [facility] Monocytes/100 leukocytes in Blood by Automated count 11.6 % 3.0 - 8.0 H [facility] Eosinophils/100 leukocytes in Blood by Automated count 1.9 % 0.0 - 7.0 [facility] Basophils/100 leukocytes in Blood by Automated count 0.4 % 0.0 - 2.5 [facility] %IG 0.4 % 0.0 - 0.[address] [facility] %NRBC 0.0 % 0.0 - 0.0 [facility] al Neutrophils [#/volume] in Blood by Automated count 2.77 10^3/uL 2.00 - 6.90 [facility] Lymphocytes [#/volume] in Blood by Automated count 1.75 10^3/uL 0.60 - 3.40 [facility] Monocytes [#/volume] in Blood by Automated count 0.61 10^3/uL 0.00 - 0.90 [facility] Eosinophils [#/volume] in Blood by Automated count 0.10 10^3/uL 0.00 - 0.70 [facility] Basophils [#/volume] in Blood by Automated count 0.02 10^3/uL 0.00 - 0.20 [facility] #IG 0.02 10^3/uL 0.00 - 0.[address] [facility]spital #NRBC 0.00 10^3/uL 0.00 - 0.00 [facility] ospital MANUAL DIFF NOT INDICATED [facility] RBC MORPH NOT INDICATED [facility] Ho spital ID Date Data Source [id number] 05/16/2021 12:04:00 PM EDT [facility] Name Value Range Interpretation Code Description Data Aminta rce(s) Supporting Document(s) Lactate dehydrogenase [Enzymatic activity/volume] in Serum o r Plasma 305 U/L 135 - 214 H [facility] ID Date Data Source [id number] 05/16/2021 12:04:00 PM EDT [facility] Name Value Range Interpretation Code Description Data Aminta rce(s) Supporting Document(s) COMPREHENSIVE METABOLIC PANEL [facility] COMPREHENSIVE METABOLIC PANEL Sodium [Moles/volume] in Serum or Plasma 141 mEq/L 134 - 153 [facility] Potassium [Moles/volume] in Serum or Plasma 4.0 mEq/L 3.6 - 5.0 [facility] Chloride [Moles/volume] in Serum or Plasma 102 mEq/L 98 - 107 [facility] Carbon dioxide, total [Moles/volume] in Serum or Plasma 26 MEQ/L 22 - 30 [facility] Glucose [Mass/volume] in Serum or Plasma 280 MG/DL 70 - 99 [facility] BUN 45 MG/DL 7 - [facility] Creat[facility] [Mass/volume] in Serum or Plasma 2.0 MG/DL 0.7 - 1.5 H [facility] BUN/CREAT 23 8 - 27 [facility] al Protein [Mass/volume] in Serum or Plasma 5.9 G/DL 6.3 - 8.2 L [facility] Albumin [Mass/volume] in Serum or Plasma 4.1 G/DL 3.9 - 5.0 [facility] Globulin [Mass/volume] in Serum by calculation 1.8 GM/DL 2.4 - 3.2 L [facility] A/G RATIO 2.3 0.8 - 2.0 H [facility] Calcium [Mass/volume] in Serum or Plasma 10.1 MG/DL 8.4 - 10.2 [facility] Bilirubin.total [Mass/volume] in Serum or Plasma <0.7 MG/DL 0.2 - 1.3 [facility] Alkaline phosphatase [Enzymatic activity/volume] in Serum or Plasma 83 U/L 38 - 126 [facility] Aspartate aminotransferase [Enzymatic activity/volume] in Serum or Plasma 24 U/L 5 - 40 [facility] Alanine aminotransferase [Enzymatic activity/volume] in Seru m or Plasma 46 U/L 7 - 56 [facility] Anion gap 3 in Serum or Plasma 13.0 mmol/L 8.0 - 16.0 [facility] AGE 66 yrs [facility] al NON-AA GFR 27 mL[facility] AMER GFR >[address] [facility] Male GFR In terprentation [...] >32 mL/min Normal ID Date Data Source [id number] 05/16/2021 12:03:00 PM EDT [facility] Name Value Range Interpretation Code Description Data Aminta rce(s) Supporting Document(s) Magnesium [Mass/volume] in Serum or Plasma 2.1 MG/DL 1.7 - 2.2 [facility] ID Date Data Source [id number] 05/08/2021 05:02:00 PM EDT [facility] Name Value Range Interpretation Code Description Data Aminta rce(s) Supporting Document(s) Tacrolimus [Mass/volume] in Blood by LC/MS/MS 3.2 ng/mL 2.0-20.0 [facility] Trough (immediate ly following transplant) 15.0 Trough (steady state, 2 weeks or more after transplant): 3.0 - 8.0 Detection Limit = 1.0 Performed by LC-MS/MS technology. This test was developed and its performance characteristics determined by [facility]. It has not been cleared or approved by the Food and Drug Administration. ID Date Data Source [id number] 05/04/2021 03:09:00 PM EDT [facility] Name Value Range Interpretation Code Description Data Aminta rce(s) Supporting Document(s) CVE PANEL [facility] al LIPID PANEL Cholesterol [Mass/volume] in Serum or Plasma 231 MG/DL 131 - 200 H [facility] Deprecated Triglyceride [Mass/volume] in Serum or Plasma 341 MG/DL 3 5 - 160 [facility] HDL 62 MG/DL 29 - 86 [facility] al Cholesterol in LDL [Mass/volume] in Serum or Plasma by Direc t assay 133 mg/dL 65 - 175 [facility] Cholesterol.total/Cholesterol in HDL [Mass Ratio] in Serum o r Plasma 3.7 3.2 - 4.4 [facility] LDL/HDL 2.15 1.47 - 3.22 [facility] ital CVE RISK CHOL/HDL LDL/HDLMEN: 1/2 AVERAGE 3.43 1.00 AVERAGE 4.97 3.55 2X AVERAGE 9.55 6.25 3X AVERAGE 23.99 7.99WOMEN: 1/2 AVERAGE 3.27 1.47 AVERAGE 4.44 3.22 2X AVERAGE 7.05 5.03 3X AVERAGE 11.04 6.14 ID Date Data Source [id number] 05/04/2021 03:08:00 PM EDT [facility] Name Value Range Interpretation Code Description Data Aminta rce(s) Supporting Document(s) Magnesium [Mass/volume] in Serum or Plasma 2.6 MG/DL 1.7 - 2.2 H [facility] ID Date Data Source [id number] 05/04/2021 03:08:00 PM EDT [facility] Name Value Range Interpretation Code Description Data Aminta rce(s) Supporting Document(s) COMPREHENSIVE METABOLIC PANEL [facility] COMPREHENSIVE METABOLIC PANEL Sodium [Moles/volume] in Serum or Plasma 140 mEq/L 134 - 153 [facility] Potassium [Moles/volume] in Serum or Plasma 4.0 mEq/L 3.6 - 5.0 [facility] Chloride [Moles/volume] in Serum or Plasma 100 mEq/L 98 - 107 [facility] Carbon dioxide, total [Moles/volume] in Serum or Plasma 27 MEQ/L 22 - 30 [facility] Glucose [Mass/volume] in Serum or Plasma 161 MG/DL 70 - 99 [facility] BUN 53 MG/DL 7 - 21 [facility] Creatinine [Mass/volume] in Serum or Plasma 2.5 MG/DL 0.7 - 1.5 H [facility] BUN/CREAT 21 8 - 27 [facility] al Protein [Mass/volume] in Serum or Plasma 5.9 G/DL 6.3 - 8.2 L [facility] Albumin [Mass/volume] in Serum or Plasma 3.9 G/DL 3.9 - 5.0 [facility] Globulin [Mass/volume] in Serum by calculation 2.0 GM/DL 2.4 - 3.2 L [facility] A/G RATIO 2.0 0.8 - 2.0 [facility] Calcium [Mass/volume] in Serum or Plasma 10.5 MG/DL 8.4 - 10.2 H [facility] Bilirubin.total [Mass/volume] in Serum or Plasma <0.7 MG/DL 0.2 - 1.3 [facility] Alkaline phosphatase [Enzymatic activity/volume] in Serum or Plasma 68 U/L 38 - 126 [facility] Aspartate aminotransferase [Enzymatic activity/volume] in Serum or Plasma 31 U/L 5 - 40 [facility] Alanine aminotransferase [Enzymatic activity/volume] in Seru m or Plasma 51 U/L 7 - 56 [facility] Anion gap 3 in Serum or Plasma 13.0 mmol/L 8.0 - 16.0 [facility] AGE 66 [address] [facility] NON-AA GFR 21 mL/min [facility] AFR AMER GFR >[address] [facility] Male GFR In terprentation [...] >32 mL/min Normal ID Date Data Source [id number] 05/04/2021 02:45:00 PM EDT [facility] Name Value Range Interpretation Code Description Data Aminta rce(s) Supporting Document(s) CBC W/AUTOMATED DIFF [facility] COMPLETE BLOOD COUNT Leukocytes [#/volume] in Blood by Automated count 5.9 10^3/uL 4.2 - 1 1.0 [facility] Erythrocytes [#/volume] in Blood by Automated count 3.53 10^6/uL 4. 20 - 5.40 L [facility] Hemoglobin [Mass/volume] in Blood 12.5 g/dL 12.0 - 16.0 [facility] Hematocrit [Volume Fraction] of Blood by Automated count 36.6 % 3 7.0 - 47.0 L [facility] Erythrocyte mean corpuscular volume [Entitic volume] b y Automated count 103.7 fL 81.0 - 101 H [facility] Erythrocyte mean corpuscular hemoglobin [Entitic mass] by Automated count 35.4 pg 27.0 - 34.0 H [facility] Erythrocyte mean corpuscular hemoglobin concentration [Mass/volume] by Automated count 34.2 g/dL 31.0 - 36.0 [facility] Erythrocyte distribution width [Ratio] by Automated count 14.0 % 11.5 - 14.5 [facility] Platelets [#/volume] in Blood by Automated count 130 10^3/uL 150 - 45 0 L [facility] Platelet mean volume [Entitic volume] in Blood by Automated count 11.2 fL 7.4 - 10.4 H [facility] Neutrophils/100 leukocytes in Blood by Automated count 58.0 % 37. 0 - 80.0 [facility] Lymphocytes/100 leukocytes in Blood by Manual count 28.9 % 25.0 - 40.0 [facility] Monocytes/100 leukocytes in Blood by Automated count 10.9 % 3.0 - 8.0 H [facility] Eosinophils/100 leukocytes in Blood by Automated count 1.4 % 0.0 - 7.0 [facility] Basophils/100 leukocytes in Blood by Automated count 0.3 % 0.0 - 2.5 [facility] %IG 0.5 % 0.0 - 0.0 [facility] %[facility] 0.0 % 0.0 - 0.0 [facility] al Neutrophils [#/volume] in Blood by Automated count 3.42 10^3/uL 2.00 - 6.90 [facility] Lymphocytes [#/volume] in Blood by Automated count 1.70 10^3/uL 0.60 - 3.40 [facility] Monocytes [#/volume] in Blood by Automated count 0.64 10^3/uL 0.00 - 0.90 [facility] Eosinophils [#/volume] in Blood by Automated count 0.08 10^3/uL 0.00 - 0.70 [facility] Basophils [#/volume] in Blood by Automated count 0.02 10^3/uL 0.00 - 0.20 [facility] #IG 0.03 10^3/uL 0.00 - 0.[address] [facility] #NRBC 0.00 10^3/uL 0.00 - 0.[address] [facility] MANUAL DIFF NOT INDICATED [facility] RBC MORPH NOT INDICATED [facility] ID Date Data Source [id number] 04/06/2021 09:34:46 AM [facility] Name Value Range Interpretation Code Description Data Aminta rce(s) Supporting Document(s) Tacrolimus [Mass/volume] in Blood 2.3 ng/mL [facility] Renal Transplant Target ValuesImmediate post-transplant: 10 - 15 ng/mL First 6 months: 6 - 15 ng/mL Greater than 6 months: 6 - 15 ng/mL ID Date Data Source Ionized Calcium 02/18/2021 12:00:00 AM EDT eCW1 ([facility]) Name Value Range Interpretation Code Description Data Aminta rce(s) Supporting Document(s) 4.9 4.5-5.3 IONIZED CALCIUM eCW1 ([facility]) ID Date Data Source [id number] 01/30/2021 04:05:00 PM EDT [facility] Name Value Range Interpretation Code Description Data Aminta rce(s) Supporting Document(s) Troponin Laboratory test result [facility] ([facility]) ID Date Data Source [id number] 01/30/2021 04:05:00 PM EDT [facility] ([facility] Name Value Range Interpretation Code Description Data Aminta rce(s) Supporting Document(s) White Blood Count 6.4 5.0-10.0 [facility] ([facility] Platelets [id number] [facility] Red Blood Count 3.58 4.00-5.40 [facility] ([facility] Hemoglobin 12.2 [facility] ([facility]) Hematocrit 36.2 [facility] ([facility]) ID Date Data Source [id number] 10/07/2020 09:04:00 PM EST [facility] Name Value Range Interpretation Code Description Data Aminta rce(s) Supporting Document(s) Tacrolimus [Mass/volume] in Blood by LC/MS/MS 2.6 ng/mL 2.0-20.0 [facility] Trough (immediate ly following transplant) 15.0 Trough (steady state, 2 weeks or more after transplant): 3.0 - 8.0 Detection Limit = 1.0 Performed by LC-MS/MS technology. This test was developed and its performance characteristics determined by [facility]. It has not been cleared or approved by the Food and Drug Administration. ID Date Data Source [id number] 10/05/2020 02:29:00 PM EST [facility] Name Value Range Interpretation Code Description Data Aminta rce(s) Supporting Document(s) COMPREHENSIVE METABOLIC PANEL [facility] COMPREHENSIVE METABOLIC PANEL Sodium [Moles/volume] in Serum or Plasma 137 mEq/L 134 - 153 [facility] Potassium [Moles/volume] in Serum or Plasma 4.4 mEq/L 3.6 - 5.0 [facility] Chloride [Moles/volume] in Serum or Plasma 98 mEq/L 98 - 107 [facility] Carbon dioxide, total [Moles/volume] in Serum or Plasma 26 MEQ/L 22 - 30 [facility] Glucose [Mass/volume] in Serum or Plasma 88 MG/DL 65 - 110 [facility] BUN 30 MG/DL 7 - 21 [facility] Creatinine [Mass/volume] in Serum or Plasma 1.3 MG/DL 0.7 - 1.5 [facility] BUN/CREAT 23 8 - 27 [facility] Protein [Mass/volume] in Serum or Plasma 6.2 G/DL 6.3 - 8.2 L [facility] Albumin [Mass/volume] in Serum or Plasma 4.2 G/DL 3.9 - 5.0 [facility] Globulin [Mass/volume] in Serum by calculation 2.0 GM/DL 2.4 - 3.2 L [facility] A/G RATIO 2.1 0.8 - 2.0 H [facility] Calcium [Mass/volume] in Serum or Plasma 10.1 MG/DL 8.4 - 10.2 [facility] Bilirubin.total [Mass/volume] in Serum or Plasma <0.7 MG/DL 0.2 - 1.3 [facility] Alkaline phosphatase [Enzymatic activity/volume] in Serum or Plasma 91 U/L 38 - 126 [facility] Aspartate aminotransferase [Enzymatic activity/volume] in Serum or Plasma 25 U/L 5 - 40 [facility] Alanine aminotransferase [Enzymatic activity/volume] in Seru m or Plasma 34 U/L 7 - 56 [facility] Anion gap 3 in Serum or Plasma 13.0 mmol/L 8.0 - 16.0 [facility] AGE [address] [facility] NON-AA GFR 44 mL/min [facility] AFR AMER GFR >[address] [facility] Male GFR In terprentation [...] >32 mL/min Normal ID Date Data Source [id number] 10/05/2020 02:29:00 PM [facility] Name Value Range Interpretation Code Description Data Aminta rce(s) Supporting Document(s) Lactate dehydrogenase [Enzymatic activity/volume] in Serum o r Plasma 293 U/L 135 - 214 H [facility] ID Date Data Source [id number] 10/05/2020 02:27:00 PM [facility] Name Value Range Interpretation Code Description Data Aminta rce(s) Supporting Document(s) Magnesium [Mass/volume] in Serum or Plasma 1.9 MG/DL 1.7 - 2.2 [facility] ID Date Data Source [id number] 10/05/2020 01:58:00 PM [facility] Name Value Range Interpretation Code Description Data Aminta rce(s) Supporting Document(s) CBC W/AUTOMATED DIFF [facility] COMPLETE BLOOD COUNT Leukocytes [#/volume] in Blood by Automated count 6.5 10^3/uL 4.2 - 1 1.0 [facility] Erythrocytes [#/volume] in Blood by Automated count 3.73 10^6/uL 4. 20 - 5.40 L [facility] Hemoglobin [Mass/volume] in Blood 12.5 g/dL 12.0 - 16.0 [facility] Hematocrit [Volume Fraction] of Blood by Automated count 36.5 % 3 7.0 - 47.0 L [facility] Erythrocyte mean corpuscular volume [Entitic volume] by Auto mated count 97.9 fL 81.0 - 101 [facility] Erythrocyte mean corpuscular hemoglobin [Entitic mass] by Automated count 33.5 pg 27.0 - 34.0 [facility] Erythrocyte mean corpuscular hemoglobin concentration [Mass/volume] by Automated count 34.2 g/dL 31.0 - 36.0 [facility] Erythrocyte distribution width [Ratio] by Automated count 13.6 % 11.5 - 14.5 [facility] Platelets [#/volume] in Blood by Automated count 181 10^3/uL 150 - 45 0 [facility] Platelet mean volume [Entitic volume] in Blood by Automated count 9.9 fL 7.4 - 10.4 [facility] Neutrophils/100 leukocytes in Blood by Automated count 58.2 % 37. 0 - 80.0 [facility] Lymphocytes/100 leukocytes in Blood by Manual count 28.0 % 25.0 - 40.0 [facility] Monocytes/100 leukocytes in Blood by Automated count 11.1 % 3.0 - 8.0 [facility] Eosinophils/100 leukocytes in Blood by Automated count 2.2 % 0.0 - 7.0 [facility] Basophils/100 leukocytes in Blood by Automated count 0.3 % 0.0 - 2.5 [facility] %IG 0.2 % 0.0 - 0.0 [facility] 0.0 % 0.0 - 0.0 [facility] al Neutrophils [#/volume] in Blood by Automated count 3.79 10^3/uL 2.00 - 6.90 [facility] Lymphocytes [#/volume] in Blood by Automated count 1.82 10^3/uL 0.60 - 3.40 [facility] Monocytes [#/volume] in Blood by Automated count 0.72 10^3/uL 0.00 - 0.90 [facility] Eosinophils [#/volume] in Blood by Automated count 0.14 10^3/uL 0.00 - 0.70 [facility] Basophils [#/volume] in Blood by Automated count 0.02 10^3/uL 0.00 - 0.20 [facility] #IG 0.01 10^3/uL 0.00 - 0.10 [facility] #NRBC 0.00 10^3/uL 0.00 - 0.00 [facility] MANUAL DIFF NOT INDICATED [facility] RBC MORPH NOT INDICATED [facility] ID Date Data Source [id number] 09/05/2020 08:12:34 AM EDT [facility] Name Value Range Interpretation Code Description Data Aminta rce(s) Supporting Document(s) Progress Note [facility] [id number] lbm [file] [id number]== ID Date Data Source [id number] 09/06/2020 07:27:46 AM EST [facility] Name Value Range Interpretation Code Description Data Aminta rce(s) Supporting Document(s) Specimen source [Identifier] of Unspecified specimen [facility] SARS-CoV-2 RNA 2018 nCoV Real-Time RT-PCR: NOT DETECTED 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 Patient has symptoms related to [facility] When did you start to experience these symptoms [Date and time] [Phen X] [facility] Patient was hospitalized because of this [facility] patient was admitted to ICU for [facility] Patient resides in a congregate care setting [facility] status [facility] ID Date Data Source [id number] 09/05/2020 08:12:00 AM EDT [facility] Value Range Interpretation Code Description Data Aminta rce(s) Supporting Document(s) SARS-CoV-[address] [facility] This lab was ordered by [facility] and reported by [facility]. ID Date Data Source [id number] 09/02/2020 06:12:00 PM EDT [facility] Name Value Range Interpretation Code Description Data Aminta rce(s) Supporting Document(s) Tacrolimus [Mass/volume] in Blood by LC/MS/MS 3.4 ng/mL 2.0-20.0 [facility] Trough (immediate ly following transplant) 15.0 Trough (steady state, 2 weeks or more after transplant): 3.0 - 8.0 Detection Limit = 1.0 Performed by LC-MS/MS technology. This test was developed and its performance characteristics determined by [facility]. It has not been cleared or approved by the Food and Drug Administration. ID Date Data Source [id number] 08/31/2020 02:11:00 PM EDT [facility] Name Value Range Interpretation Code Description Data Aminta rce(s) Supporting Document(s) Lactate dehydrogenase [Enzymatic activity/volume] in Serum o r Plasma 275 U/L 135 - 214 [facility] ID Date Data Source [id number] 08/31/2020 02:11:00 PM T [facility] Name Value Range Interpretation Code Description Data [facility] rce(s) Supporting Document(s) COMPREHENSIVE METABOLIC PANEL [facility] COMPREHENSIVE METABOLIC PANEL Sodium [Moles/volume] in Serum or Plasma 137 mEq/L 134 - 153 [facility] Potassium [Moles/volume] in Serum or Plasma 4.2 mEq/L 3.6 - 5.0 [facility] Chloride [Moles/volume] in Serum or Plasma 99 mEq/L 98 - 107 [facility] Carbon dioxide, total [Moles/volume] in Serum or Plasma 28 MEQ/L 22 - 30 [facility] Glucose [Mass/volume] in Serum or Plasma 142 MG/DL 65 - 110 [facility] BUN 34 MG/DL 7 - 21 [facility] Creatinine [Mass/volume] in Serum or Plasma 1.4 MG/DL 0.7 - 1.5 [facility] BUN/CREAT 24 8 - 27 [facility] Protein [Mass/volume] in Serum or Plasma 6.3 G/DL 6.3 - 8.2 [facility] Albumin [Mass/volume] in Serum or Plasma 4.1 G/DL 3.9 - 5.0 [facility] Globulin [Mass/volume] in Serum by calculation 2.2 GM/DL 2.4 - 3.2 L [facility] A/G RATIO 1.9 0.8 - 2.0 [facility] Calcium [Mass/volume] in Serum or Plasma 10.0 MG/DL 8.4 - 10.2 [facility] Bilirubin.total [Mass/volume] in Serum or Plasma <0.7 MG/DL 0.2 - 1.3 [facility] Alkaline phosphatase [Enzymatic activity/volume] in Serum or Plasma 94 U/L 38 - 126 [facility] Aspartate aminotransferase [Enzymatic activity/volume] in Serum or Plasma 22 U/L 5 - 40 [facility] Alanine aminotransferase [Enzymatic activity/volume] in Seru m or Plasma 31 U/L 7 - 56 [facility] Anion gap 3 in Serum or Plasma 10.0 mmol/L 8.0 - 16.0 [facility] AGE 65 yrs [facility] al NON-AA GFR 40 mL/min [facility] A[facility] AMER GFR >[address] [facility] Male GFR In terprentation [...] >32 mL/min Normal ID Date Data Source [id number] 08/31/2020 02:11:00 PM T [facility] Name Value Range Interpretation Code Description Data Aminta rce(s) Supporting Document(s) Magnesium [Mass/volume] in Serum or Plasma 1.9 MG/DL 1.7 - 2.2 [facility] ID Date Data Source [id number] 08/31/2020 01:41:00 PM EDT [facility] Name Value Range Interpretation Code Description Data Aminta rce(s) Supporting Document(s) CBC W/AUTOMATED DIFF [facility] COMPLETE BLOOD COUNT Leukocytes [#/volume] in Blood by Automated count 5.7 10^3/uL 4.2 - 1 1.0 [facility] Erythrocytes [#/volume] in Blood by Automated count 3.67 10^6/uL 4. 20 - 5.40 L [facility] Hemoglobin [Mass/volume] in Blood 12.5 g/dL 12.0 - 16.0 [facility] Hematocrit [Volume Fraction] of Blood by Automated count 35.9 % 3 7.0 - 47.0 L [facility] Erythrocyte mean corpuscular volume [Entitic volume] by Auto mated count 97.8 fL 81.0 - 101 [facility] Erythrocyte mean corpuscular hemoglobin [Entitic mass] by Automated count 34.1 pg 27.0 - 34.0 H [facility] Erythrocyte mean corpuscular hemoglobin concentration [Mass/volume] by Automated count 34.8 g/dL 31.0 - 36.0 [facility] Erythrocyte distribution width [Ratio] by Automated count 13.4 % 11.5 - 14.5 [facility] Platelets [#/volume] in Blood by Automated count 159 10^3/uL 150 - 45 0 [facility] Platelet mean volume [Entitic volume] in Blood by Automated count 10.3 fL 7.4 - 10.4 [facility] Neutrophils/100 leukocytes in Blood by Automated count 61.6 % 37. 0 - 80.0 [facility] Lymphocytes/100 leukocytes in Blood by Manual count 24.6 % 25.0 - 40.0 L [facility] Monocytes/100 leukocytes in Blood by Automated count 10.5 % 3.0 - 8.0 H [facility] Eosinophils/100 leukocytes in Blood by Automated count 2.8 % 0.0 - 7.0 [facility] Basophils/100 leukocytes in Blood by Automated count 0.3 % 0.0 - 2.5 [facility] %IG 0.2 % 0.0 - 0.0 [facility] %NRBC 0.0 % 0.0 - 0.0 [facility] al Neutrophils [#/volume] in Blood by Automated count 3.54 10^3/uL 2.00 - 6.90 [facility] Lymphocytes [#/volume] in Blood by Automated count 1.41 10^3/uL 0.60 - 3.40 [facility] Monocytes [#/volume] in Blood by Automated count 0.60 10^3/uL 0.00 - 0.90 [facility] Eosinophils [#/volume] in Blood by Automated count 0.16 10^3/uL 0.00 - 0.70 [facility] Basophils [#/volume] in Blood by Automated count 0.02 10^3/uL 0.00 - 0.20 [facility] #IG 0.01 10^3/uL 0.00 - 0.[address] [facility] #NRBC 0.00 10^3/uL 0.00 - 0.[address] [facility] MANUAL DIFF NOT INDICATED [facility] RBC MORPH NOT INDICATED [facility] ID Date Data Source [id number] 08/18/2020 10:36:26 AM EDT [facility] Name Value Range Interpretation Code Description Data Aminta rce(s) Supporting Document(s) Progress Note [facility] FCIWAt8wBaVEHwSw33/IMVynIWLuf1VrYXecPWt8VDwpSMSjZ0WvVAZ9mB3xXOA2QDtPVbReAwQsLNXv lbm [file] ICAgICAgICAgICAgICAgICAgICAgICAgICAgICAgICAgICAgICAgICAgICAgICAgICAgICAgICAgICAg ICAgICAgICAgICAgICAgICAgICAgDQogICAgICAgICAgICAgICAgICAgICAgICAgICAgICAgICAgICAg ICAgICAgICAgICAgICAgICAgICAgICAgICAgICAgIC AgICAgICAgICAgICAgICAgICAgICAgICAgICAgICAgDQogICAgICAgICAgICAgICAgICAgICAgICAgIC AgICAgICAgICAgICAgICAgICAgICAgICAgICAgICAgICAgICAgICAgICAgICAgICAgICAgICAgICAgIC AgICAgICAgICAgICAgDQogICAgICAgICAgICAgICAg ICAgICAgICAgICAgICAgICAgICAgICAgICAgICAgICAgICAgICAgICAgICAgICAgICAgICAgICAgICAg ICAgICAgICAgICAgICAgICAgICAgICAgDQogICAgICAgICAgICAgICAgICAgICAgICAgICAgICAgICAg ICAgICAgICAgICAgICAgICAgICAgICAgICAgICAgIC AgICAgICAgICAgICAgICAgICAgICAgICAgICAgICAgICAgDQogICAgICAgICAgICAgICAgICAgICAgIC AgICAgICAgICAgICAgICAgICAgICAgICAgICAgICAgICAgICAgICAgICAgICAgICAgICAgICAgICAgIC AgICAgICAgICAgICAgICAgDQogICAgICAgICAgICAg ICAgICAgICAgICAgICAgICAgICAgICAgICAgICAgICAgICAgICAgICAgICAgICAgICAgICAgICAgICAg ICAgICAgICAgICAgICAgICAgICAgICAgICAgDQogICAgICAgICAgICAgICAgICAgICAgICAgICAgICAg ICAgICAgICAgICAgICAgICAgICAgICAgICAgICAgIC AgICAgICAgICAgICAgICAgICAgICAgICAgICAgICAgICAgICAgDQogICAgICAgICAgICAgICAgICAgIC AgICAgICAgICAgICAgICAgICAgICAgICAgICAgICAgICAgICAgICAgICAgICAgICAgICAgICAgICAgIC AgICAgICAgICAgICAgICAgICAgDQogICAgICAgICAg ICAgICAgICAgICAgICAgICAgICAgICAgICAgICAgICAgICAgICAgICAgICAgICAgICAgICAgICAgICAg VCJvJBWuXIEtSFUoWYVuXMZcNIDkMVRaSYJuBWYdJXc1Y0prTZRrITUbYX2tSKj6Ps9+DQoNCmVuZHN0 dsVumO7AGS2dm3ZjPYfpZZQdd1BrKFd2UN4NZHBlMH ksXK4BKTdvna6NZZFpVOBiuNSGx1svPuDaFBC1VEWvNftoOV3MJFQjW9oeknToYLEnSHFELA3RRsIpZ3 MmtF94YYUMXc1+JIbhyrTySrtFLkT2LTHcw2JpUGq5YG3AWXSmZwmny7ClSuMjVEKGPSqnBO9IYIR4PH MdGRWiUi0JWFSgL181gqQlDB0MVc0SMsAiSF7ovy2E OzSnFCAtJmuQGgq2TLgiQZ7WkNPmYBiRep8baiMpmvVZy3UjvyTqqHPJCNRrxEZDRQNuPOKwNRbnQRAS GzHohWBeXT2oHy0vBOYqEAJsKcXoUKTVFX2UKXDmPBDkvISeNFKnHKOJTN9AIGbiUIJ0YUSwewBtpZOr HSynHG9GIWZpwhIoMQijGEOMHCt+Rk2EKM8lq5IdZF ewYTOwBX2emr2DOOzPGrMnB6O3lONsA6D9FWghFh6YEORqWRDxGJmaLZRRNRobVI4LCR9pdqZ9QW8YyS RhCZFpKXSbkXLjRXq4W13joMRlHAxiBD8VXYN+Jovita+Ze9WFRUwDEUiMPTjRyPlFTKQYxEbD6NaY0PXp4 SsC1UlUH15uJbsjkAgDPlxFW5DVF3wKRIhROFSJZ1Q oJWqcR7pqwJvOZMkXAEJDxTaY82moTLvMUWvUYO0PJZlVa6UEUBdB0IghbJlhXtbveDzSQVtVZIEHB3G RZvfxtMvjCDwbGqeAJ10xDnjQU9AAo8YAqAlSC9vlj0ImZVwMo3JJJGjKa0SCYVxEQGbXTNyDVN1XRKc GpAxDVjkEETrQVQeASB3OROpQGYdAD6QNtLhINZgRG fnXPCcUOAhOAUnnf6NVVCqDGGfSZkeRIOoHJVrMJIyPSnhQFQuUBTeSNL0YIDmZLHmMK9ODtDwOGNwAX PaAatkVQGkEEYcpi2CFPIePZRpVdOtZsLvOICdRTQtUPqjIAHyKZZvTOzfJNTzUCDzMF4SVfOqXFDiFM IpBEtcOUIfMARkpg3RWQDzVRPmWzE5DdIfHWJzUZBe OGbiYFKaRUT1WKN3ELOmJRFaDX0WMxJaLLXsPLU8LqkaJEHoTRDwpv0PXVOhKXNkUAriUUGuBDRvKVJp XCjuQUKsSSI9OqR9EQDxEVOnQX8DEjFeZAVlCAC0OJLaKKTsAHTcih9LOILhZEBfYkb1OUDxTKKnNURa WYztDQLdNEQ9MFF9JNCbMDLyYE9KPnSkFIKjLSfnEX UvFBSoWJIwuh8APKJwRESiVnG6MZGrSHWgBQRaZYqmPBIjEHT0VKG5NKJmZFNkQQ0JCmSnCWVmHSetWW kpWBHtQLVzql5ZPWRrCRKvASY9IGJmKWFoLKAnHOw7ypXbgGMiEOr9HV2GD1VpdyMtTeTGCp5Pp348WH ElMYQuCz4IJ3wjCt9gBMSlAVZFFb4IVSv7OLK1HTB8 H9WzHOwlE8C7OxDcIZSwCrsvIfhrZrv0AiB+PVutWOX4DWJ7V5F3NCYuLIXcKZU1LFRnF4P5Q4S1MVva ZE7aJQPPLd3+PQxqeVElcCtxFPFADaK2FYf3VElyWLTAXt2V ID Date Data Source [id number] 08/19/2020 11:46:01 AM EDT [facility] Name Value Range Interpretation Code Description Data Aminta rce(s) Supporting Document(s) Specimen source [Identifier] of Unspecified specimen [facility] SARS-CoV-2 RNA 2018 nCoV Real-Time RT-PCR: NOT DETECTED [facility] Assay Performed [facility] Initial validation was performed by the Centers for Disease Control and Prevention (CDC) and additionally validated by the Dept. of Pathology [facility]. Negative results do not preclude SARS-CoV-2 infection and should not be used as the sole basis for patient management decisions.Additional information is available on the following FDA websites for health care providers and patients. https://www.fda.gov/media/952231/download, https://www.fda.gov/media/187071/download. 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 Patient has symptoms related to [facility] When did you start to experience these symptoms [Date and time] [Phen X] [facility] Patient was hospitalized because of this condition [facility] patient was admitted to ICU for condition [facility] Patient resides in a congregate care setting [facility] status [facility] ID Date Data Source [id number] 08/18/2020 10:36:00 AM EDT [facility] Name Value Range Interpretation Code Description Data Aminta rce(s) Supporting Document(s) SARS-CoV-[address] [facility] This lab was ordered by [facility] and reported by [facility]. Procedure Social History Code Duration Value Status Description Data Source(s ) Smoking 08/11/2021 12:00:00 AM EDT Never Smoker completed Never S moker eCW1 ([facility]) Smoking 05/11/2021 12:00:00 AM EDT Never Smoker completed Never S moker eCW1 ([facility]) Smoking 05/11/2021 12:00:00 AM EDT Never Smoker completed Never S moker eCW1 ([facility]) Smoking 05/11/2021 12:00:00 AM EDT Never Smoker completed Never S moker eCW1 ([facility]) Smoking 05/11/2021 12:00:00 AM EDT Never Smoker completed Never S moker eCW1 ([facility]) Smoking 05/04/2021 12:00:00 AM EDT Never Smoker completed Never S moker eCW1 ([facility]) Smoking 05/04/2021 12:00:00 AM EDT Never Smoker completed Never S moker eCW1 ([facility]) Smoking 04/01/2021 12:00:00 AM EDT Never Smoker completed Never S moker eCW1 ([facility]) Smoking 04/01/2021 12:00:00 AM EDT Never Smoker completed Never S moker eCW1 ([facility]) Smoking 04/01/2021 12:00:00 AM EDT Never Smoker completed Never S moker eCW1 ([facility]) Smoking 04/01/2021 12:00:00 AM EDT Never Smoker completed Never S moker eCW1 ([facility]) Smoking 04/01/2021 12:00:00 AM EDT Never Smoker completed Never S moker eCW1 ([facility]) Smoking 03/04/2021 12:00:00 AM EDT Never Smoker completed Never S moker eCW1 ([facility]) Smoking 03/04/2021 12:00:00 AM EDT Never Smoker completed Never S moker eCW1 ([facility]) Smoking 03/04/2021 12:00:00 AM EDT Never Smoker completed Never S moker eCW1 ([facility]) Smoking 03/04/2021 12:00:00 AM EDT Never Smoker completed Never S moker eCW1 ([facility]) Smoking 03/04/2021 12:00:00 AM EDT Never Smoker completed Never S moker eCW1 ([facility]) Smoking 03/04/2021 12:00:00 AM EDT Never Smoker completed Never S moker eCW1 ([facility]) Smoking 02/18/2021 12:00:00 AM EDT Never Smoker completed Never S moker eCW1 ([facility]) Smoking 02/18/2021 12:00:00 AM EDT Never Smoker completed Never S moker eCW1 ([facility]) Smoking 02/18/2021 12:00:00 AM EDT Never Smoker completed Never S moker eCW1 ([facility]) Smoking 02/18/2021 12:00:00 AM EDT Never Smoker completed Never S moker eCW1 ([facility]) Smoking 02/18/2021 12:00:00 AM EDT Never Smoker completed Never S moker eCW1 ([facility]) Smoking 02/10/2021 12:00:00 AM EDT Patient has never smoked co mpleted Patient has never smoked MEDENT ([facility]) Smoking 02/04/2021 12:00:00 AM EDT Never Smoker completed Never S moker eCW1 ([facility]) Smoking 02/04/2021 12:00:00 AM EDT Never Smoker completed Never S moker eCW1 ([facility]) Smoking 01/27/2021 12:00:00 AM EDT Never Smoker completed Never S moker eCW1 ([facility]) Smoking 01/27/2021 12:00:00 AM EDT Never Smoker completed Never S moker eCW1 ([facility]) Smoking 01/19/2021 12:00:00 AM EDT Never Smoker completed Never S moker eCW1 ([facility]) Smoking 12/15/2020 12:00:00 AM EST Never Smoker completed Never S moker eCW1 ([facility]) Smoking 12/15/2020 12:00:00 AM EST Never Smoker completed Never S moker eCW1 ([facility]) Smoking 12/15/2020 12:00:00 AM EST Never Smoker completed Never S moker eCW1 ([facility]) Smoking 12/15/2020 12:00:00 AM EST Never Smoker completed Never S moker eCW1 ([facility]) Smoking 11/17/2020 12:00:00 AM EST Never Smoker completed Never S moker eCW1 ([facility]) Smoking 11/17/2020 12:00:00 AM EST Never Smoker completed Never S moker eCW1 ([facility]) Smoking 10/22/2020 12:00:00 AM EST Never Smoker completed Never S moker eCW1 ([facility]) Smoking 10/22/2020 12:00:00 AM EST Never Smoker completed Never S moker eCW1 ([facility]) Smoking 10/22/2020 12:00:00 AM EST Never Smoker completed Never S moker eCW1 ([facility]) Caffeine Use Details 10/13/2020 12:00:00 AM EST completed soda, 1 cup [employer] ([facility]) Smoking 10/13/2020 12:00:00 AM EST Unknown if ever smoked comp leted Unknown if ever smoked [employer] ([facility]) Smoking 09/24/2020 12:00:00 AM EST Patient has never smoked co mpleted Patient has never smoked MEDENT ([facility]) Smoking 09/22/2020 12:00:00 AM EST Never Smoker completed Never S moker eCW1 ([facility]) Smoking 09/22/2020 12:00:00 AM EST Never Smoker completed Never S moker eCW1 ([facility]) Smoking 09/22/2020 12:00:00 AM EST Never Smoker completed Never S moker eCW1 ([facility]) Smoking 08/11/2020 12:00:00 AM EDT Never Smoker completed Never S moker eCW1 ([facility]) Smoking 08/11/2020 12:00:00 AM EDT Never Smoker completed Never S moker eCW1 ([facility]) Smoking 08/11/2020 12:00:00 AM EDT Never Smoker completed Never S moker eCW1 ([facility]) Smoking 08/11/2020 12:00:00 AM EDT Never Smoker completed Never S moker eCW1 ([facility]) Smoking 08/11/2020 12:00:00 AM EDT Never Smoker completed Never S moker eCW1 ([facility]) Smoking 08/11/2020 12:00:00 AM EDT Never Smoker completed Never S moker eCW1 ([facility]) Smoking 08/11/2020 12:00:00 AM EDT Never Smoker completed Never S moker eCW1 ([facility]) Smoking 08/11/2020 12:00:00 AM EDT Never Smoker completed Never S moker eCW1 ([facility]) Smoking 08/11/2020 12:00:00 AM EDT Never Smoker completed Never S moker eCW1 ([facility]) Smoking 08/04/2020 12:00:00 AM EDT Never Smoker completed Never S moker eCW1 ([facility]) Smoking 08/04/2020 12:00:00 AM EDT Never Smoker completed Never S moker eCW1 ([facility]) Smoking 08/04/2020 12:00:00 AM EDT Never Smoker completed Never S moker eCW1 ([facility]) Vital Signs ID Date Data Source UNK Name Value Range Interpretation Code Description Data Source(s) Body weight 213.0 [lb_av] 213.0 [lb_av] eCW1 ([facility]) Body weight 96.62 kg 96.62 kg eCW1 ([facility]) Body height 65.5 [in_i] 65.5 [in_i] eCW1 ([facility]) Body mass index (BMI) [Ratio] 34.90 kg/m2 34.90 kg/m2 eCW1 ([facility]) Heart rate 59 /min 59 /min eCW1 ([facility]) Respiratory rate 18 /min 18 /min eCW1 ([facility]) Body temperature 97.9 [degF] 97.9 [degF] eCW1 ( [facility]) Systolic blood pressure 122 mm[Hg] 122 mm[Hg] e CW1 ([facility]) Diastolic blood pressure 60 mm[Hg] 60 mm[Hg] eCW1 ([facility]) Systolic blood pressure 118 mm[Hg] 118 mm[Hg] M EDENT ([facility]) Diastolic blood pressure 70 mm[Hg] 70 mm[Hg] MEDENT ([facility]) Heart rate 63 /min 63 /min MEDENT ([facility]) Body temperature 97.5 [degF] 97.5 [degF] MEDENT ([facility]) Respiratory rate 16 /min 16 /min MEDENT ( [facility]) Oxygen saturation in Arterial blood by Pulse oximetry 100 % 100 % MEDENT ([facility]) Body weight 222 [lb_av] 222 [lb_av] eCW1 ([facility]) Body weight 100.7 kg 100.7 kg W1 ([facility]) Body height 65.5 [in_i] 65.5 [in_i] eCW1 ([facility]) Body mass index (BMI) [Ratio] 36.38 kg/m2 36.38 kg/m2 W1 ([facility]) Heart rate 62 /min 62 /min eCW1 ([facility]) Respiratory rate 18 /min 18 /min eCW1 ([facility]) Body temperature 97.8 [degF] 97.8 [degF] eCW1 ( [facility]) Systolic blood pressure 126 mm[Hg] 126 mm[Hg] e CW1 ([facility]) Diastolic blood pressure 66 mm[Hg] 66 mm[Hg] eCW1 ([facility]) Systolic blood pressure 116 mm[Hg] 116 mm[Hg] e CW1 ([facility]) Body weight 219 [lb_av] 219 [lb_av] eCW1 ([facility]) Body height 65.5 [in_i] 65.5 [in_i] eCW1 ([facility]) Body mass index (BMI) [Ratio] 35.89 kg/m2 35.89 kg/m2 eCW1 ([facility]) Heart rate 65 /min 65 /min eCW1 ([facility]) Respiratory rate 16 /min 16 /min eCW1 ([facility]) Body temperature 98.0 [degF] 98.0 [degF] eCW1 ( [facility]) Diastolic blood pressure 55 mm[Hg] 55 mm[Hg] eCW1 ([facility]) Body weight 225 [lb_av] 225 [lb_av] eCW1 ([facility]) Body height 65.5 [in_i] 65.5 [in_i] eCW1 ([facility]) Body mass index (BMI) [Ratio] 36.87 kg/m2 36.87 kg/m2 eCW1 ([facility]) Systolic blood pressure 133 mm[Hg] 133 mm[Hg] e CW1 ([facility]) Heart rate 66 /min 66 /min eCW1 ([facility]) Diastolic blood pressure 64 mm[Hg] 64 mm[Hg] eCW1 ([facility]) Respiratory rate 17 /min 17 /min eCW1 ([facility]) Body temperature 98.5 [degF] 98.5 [degF] eCW1 ( [facility]) Heart rate 68 /min 68 /min eCW1 ([facility]) Body weight 224 [lb_av] 224 [lb_av] eCW1 ([facility]) Respiratory rate 18 /min 18 /min eCW1 ([facility]) Body temperature 97.8 [degF] 97.8 [degF] eCW1 ( [facility]) Systolic blood pressure 153 mm[Hg] 153 mm[Hg] e CW1 ([facility]) Diastolic blood pressure 69 mm[Hg] 69 mm[Hg] eCW1 ([facility]) Body height 65.5 [in_i] 65.5 [in_i] eCW1 ([facility]) Body mass index (BMI) [Ratio] 36.70 kg/m2 36.70 kg/m2 eCW1 ([facility]) Body height 65 [in_i] 65 [in_i] MEDENT ([facility] 5'5" Body mass index (BMI) [Ratio] 36.9 kg/m2 36.9 k g/m2 MEDENT ([facility]) Heart rate 61 /min 61 /min MEDENT ([facility]) Systolic blood pressure--sitting 142 mm[Hg] 142 mm[Hg] MEDENT ([facility]) Ra, large cuff Diastolic blood pressure--sitting 78 mm[Hg] 78 mm[Hg] MEDENT ([facility]) Ra, large cuff Systolic blood pressure--supine 148 mm[Hg] 148 mm[Hg] MEDENT ([facility]) Ra, large cuff Diastolic blood pressure--supine 80 mm[Hg] 80 mm[Hg] MEDENT ([facility]) Ra, large cuff Systolic blood pressure--standing 138 mm[Hg] 13 8 mm[Hg] MEDENT ([facility]) Ra, large cuff Diastolic blood pressure--standing 78 mm[Hg] 7 8 mm[Hg] MEDENT ([facility]) Ra, large cuff Body weight 222.00 [lb_av] 222.00 [lb_av] MEDEN T ([facility]) Body weight 223 [lb_av] 223 [lb_av] eCW1 ([facility]) Body height 65.5 [in_i] 65.5 [in_i] eCW1 ([facility]) Body mass index (BMI) [Ratio] 36.54 kg/m2 36.54 kg/m2 eCW1 ([facility]) Heart rate 65 /min 65 /min eCW1 ([facility]) Respiratory rate 18 /min 18 /min eCW1 ([facility]) Body temperature 97.9 [degF] 97.9 [degF] eCW1 ( [facility]) Systolic blood pressure 128 mm[Hg] 128 mm[Hg] e CW1 ([facility]) Diastolic blood pressure mm[Hg] eCW1 ([facility]) Systolic blood pressure 128 mm[Hg] 128 mm[Hg] M EDENT ([facility], ) Diastolic blood pressure 80 mm[Hg] 80 mm[Hg] [facility] ([facility]) Heart rate 72 /min 72 /min [facility] ([facility]) Oxygen saturation in Arterial blood by Pulse oximetry 97 % 97 % [facility] ([facility]) Room Air Body height 66 [in_i] 66 [in_i] [facility] ([facility]) 5'6" Body weight 214.00 [lb_av] 214.00 [lb_av] MEDEN T ([facility]) Body mass index (BMI) [Ratio] 34.5 kg/m2 34.5 k g/m2 [facility] ([facility]) [place] body weight 130 [lb_av] 130 [lb_av] MEDEN T ([facility]) Body weight 97.070 kg 97.070 kg [facility] ([facility]) Body weight 219 [lb_av] 219 [lb_av] eCW1 ([facility]) Body height 65.5 [in_i] 65.5 [in_i] eCW1 ([facility]) Body mass index (BMI) [Ratio] 35.89 kg/m2 35.89 kg/m2 W1 ([facility]) Heart rate 81 /min 81 /min eCW1 ([facility]) Respiratory rate 18 /min 18 /min eCW1 ([facility]) Body temperature 96.3 [degF] 96.3 [degF] eCW1 ( [facility]) Systolic blood pressure 131 mm[Hg] 131 mm[Hg] e CW1 ([facility]) Diastolic blood pressure 62 mm[Hg] 62 mm[Hg] eCW1 ([facility]) Heart rate 60 /min 60 /min eCW1 ([facility]) Body weight 218 [lb_av] 218 [lb_av] eCW1 ([facility]) Body height 65.5 [in_i] 65.5 [in_i] eCW1 ([facility]) Body mass index (BMI) [Ratio] 35.72 kg/m2 35.72 kg/m2 eCW1 ([facility]) Respiratory rate 18 /min 18 /min eCW1 ([facility]) Body temperature 97.6 [degF] 97.6 [degF] eCW1 ( [facility]) Systolic blood pressure 161 mm[Hg] 161 mm[Hg] e CW1 ([facility]) Diastolic blood pressure 72 mm[Hg] 72 mm[Hg] eCW1 ([facility]) Patient Treatment Plan of Care Planned Activity Planned Date Details Description Data Source (s) Lorazepam 1 MG Oral Tablet 06/15/2021 12:00:00 AM EDT eCW1 ([facility]) Mupirocin 20 MG/ML Topical Cream 05/04/2021 12:00:00 AM EDT eCW1 ([facility]) carbamide peroxide 65 MG/ML Otic Solution [Debrox] 05/04/2021 12 :00:00 AM EDT eCW1 ([facility]) Mupirocin 20 MG/ML Topical Cream 05/04/2021 12:00:00 AM EDT eCW1 ([facility]) carbamide peroxide 65 MG/ML Otic Solution [Debrox] 05/04/2021 12 :00:00 AM EDT eCW1 ([facility]) Escitalopram 5 MG Oral Tablet [Lexapro] 03/26/2021 12:00:00 AM EDT eCW1 ([facility]) Escitalopram 5 MG Oral Tablet [Lexapro] 03/26/2021 12:00:00 AM EDT eCW1 ([facility]) Escitalopram 5 MG Oral Tablet [Lexapro] 03/26/2021 12:00:00 AM EDT eCW1 ([facility]) Escitalopram 5 MG Oral Tablet [Lexapro] 12/15/2020 12:00:00 AM EST eCW1 ([facility]) Escitalopram 5 MG Oral Tablet [Lexapro] 12/15/2020 12:00:00 AM EST eCW1 ([facility]) Escitalopram 5 MG Oral Tablet [Lexapro] 12/15/2020 12:00:00 AM EST eCW1 ([facility]) Escitalopram 5 MG Oral Tablet [Lexapro] 12/15/2020 12:00:00 AM EST eCW1 ([facility]) Escitalopram 5 MG Oral Tablet [Lexapro] 12/15/2020 12:00:00 AM EST eCW1 ([facility]) Escitalopram 5 MG Oral Tablet [Lexapro] 12/15/2020 12:00:00 AM EST eCW1 ([facility]) Escitalopram 5 MG Oral Tablet [Lexapro] 12/15/2020 12:00:00 AM EST eCW1 ([facility]) Escitalopram 5 MG Oral Tablet [Lexapro] 12/15/2020 12:00:00 AM EST eCW1 ([facility]) Escitalopram 5 MG Oral Tablet [Lexapro] 12/15/2020 12:00:00 AM EST eCW1 ([facility]) Escitalopram 5 MG Oral Tablet [Lexapro] 12/15/2020 12:00:00 AM EST eCW1 ([facility]) Cephalexin 500 MG Oral Capsule [Keflex] 09/22/2020 12:00:00 AM EST eCW1 ([facility]) Cephalexin 500 MG Oral Capsule [Keflex] 09/22/2020 12:00:00 AM EST eCW1 ([facility]) Cephalexin 500 MG Oral Capsule [Keflex] 09/22/2020 12:00:00 AM EST eCW1 ([facility]) Ondansetron 4 MG Disintegrating Oral Tablet 08/18/2020 12:00:00 AM EDT eCW1 ([facility]) Ondansetron 4 MG Disintegrating Oral Tablet 08/18/2020 12:00:00 AM EDT eCW1 ([facility]) Ondansetron 4 MG Disintegrating Oral Tablet 08/18/2020 12:00:00 AM EDT eCW1 ([facility]) Ondansetron 4 MG Disintegrating Oral Tablet 08/18/2020 12:00:00 AM EDT eCW1 ([facility]) Ondansetron 4 MG Disintegrating Oral Tablet 08/18/2020 12:00:00 AM EDT eCW1 ([facility]) Ondansetron 4 MG Disintegrating Oral Tablet 08/18/2020 12:00:00 AM EDT eCW1 ([facility]) Ondansetron 4 MG Disintegrating Oral Tablet 08/18/2020 12:00:00 AM EDT eCW1 ([facility]) Ondansetron 4 MG Disintegrating Oral Tablet 08/18/2020 12:00:00 AM EDT eCW1 ([facility]) Ondansetron 4 MG Disintegrating Oral Tablet 08/18/2020 12:00:00 AM EDT eCW1 ([facility])
[2021-09-21 22:18] LABS: RSV AMPLIFICATION NEGATIVE (NEGATIVE)
[2021-09-21] MEDS ORDERED: PAMIDRONATE DISODIUM FOR IV ONE (22:30)
[2021-09-21] MEDS ORDERED: NS IV ONE (22:30)
--- NOTE | 2021-09-21 22:51 | ECGEPIP ---
[facility] - ED Test Date: 2021-09-21 Pat Name: ROLAND ASHFORD Department: Room: - Gender: Female Director Market Research: FLEX : 1955 Requested By: ALESSANDRA Flores Order Number: [id number] Reading MD: Jake German Measurements Intervals [place] Rate: 71 P: [place]: 264 QRS: -21 QRSD: 130 T: 33 QT: 438 QTc: 475 Interpretive Statements Sinus rhythm with 1st degree AV block Nonspecific intraventricular block Minimal voltage criteria for LVH, may be normal variant ( [place] product ) Nonspecific T wave abnormality SIMILAR TO 08/30/21 Electronically Signed on 09-21-2021 22:51:50 EST by Jake German
[2021-09-21] MEDS ORDERED: HYDR1CR EXT (23:23)
[2021-09-21] MEDS ORDERED: LORA1TAB4 PO (23:23)
[2021-09-21] MEDS ORDERED: CLOT28CR2 TOP (23:23)
[2021-09-21] MEDS ORDERED: ASPI-161 PO (23:23)
[2021-09-21] MEDS ORDERED: SENN8.6T28 PO (23:23)
[2021-09-21] MEDS ORDERED: COLA100C5 PO (23:23)
[2021-09-21] MEDS ORDERED: LIDO2SO SSP (23:23)
[2021-09-21] MEDS ORDERED: HOME MED LIST COMPLETE! XX SCH (23:30)
[2021-09-21 23:58] LABS: URIC ACID 15.4 MG/DL (2.6-6.0)
[2021-09-22] MEDS: oxyBUTYnin *DITROPAN XL* 5 MG TABCR PO SCH ×2 (01:25→21:47)
[2021-09-22] MEDS: FLUCONAZOLE 100 MG TAB PO SCH ×2 (01:25→21:34)
[2021-09-22] MEDS ORDERED: LACTULOSE 20 GM/30 ML SYRUP UD PO PRN (01:25)
[2021-09-22] MEDS: LORazepam 1 MG TAB PO SCH ×2 (01:25→20:54)
[2021-09-22] MEDS: TACROLIMUS 1 MG CAP (J7507) PO SCH ×3 (01:25→21:33)
[2021-09-22] MEDS ORDERED: CLOTRIMAZOLE 1% TOPICAL CREAM 30GM TOP PRN (01:25)
[2021-09-22] MEDS: LOSARTAN 50MG TABLET PO SCH ×2 (01:25→21:38)
[2021-09-22] MEDS: GABAPENTIN 300 MG CAP PO SCH ×2 (01:25→20:57)
[2021-09-22] MEDS: FLECAINIDE 50MG TABLET PO SCH ×3 (01:25→21:32)
[2021-09-22] MEDS ORDERED: HYDROCORTISONE 1% CREAM 30 GM EXT PRN (01:25)
[2021-09-22] MEDS ORDERED: ULTRACET TAB PO PRN (01:25)
[2021-09-22] MEDS: SENNA 8.6 MG TAB (SENOKOT) PO SCH ×3 (01:25→20:57)
[2021-09-22] MEDS: SERTRALINE HCL 50 MG TAB PO SCH ×2 (01:25→20:54)
[2021-09-22] MEDS: PRAMIPEXOLE (MIRAPEX) 0.125 MG TAB PO SCH ×2 (01:25→21:33)
[2021-09-22] MEDS ORDERED: NORCO, ANEXSIA 5/325MG TABLET (HYDROcodone/ACETAMINOPHEN) PO PRN (01:25)
[2021-09-22] MEDS ORDERED: CYCLOBENZAPRINE 10MG TABLET PO PRN (01:25)
[2021-09-22] MEDS: LEVEMIR (INSULIN DETEMIR) 1 UNITS/0.01ML SC SCH ×2 (01:25→21:51)
[2021-09-22] MEDS ORDERED: LIDOCAINE VISCOUS 2% SOLN 15ML UDC SSP PRN (01:25)
[2021-09-22] MEDS: MONTELUKAST 10 MG TAB PO SCH ×2 (01:25→20:54)
[2021-09-22] MEDS: DOCUSATE SODIUM 100MG CAPSULE PO SCH ×3 (01:25→20:56)
[2021-09-22] MEDS ORDERED: LORazepam 1 MG TAB PO PRN (01:25)
[2021-09-22] MEDS ORDERED: hydrALAZINE 20MG/ML 1ML VIAL (J0360 PER 20MG) IV STA (01:35)
[2021-09-22] MEDS: NS 1,000 ML IV SCH ×3 (01:40→11:56)
[2021-09-22] MEDS ORDERED: hydrALAZINE 20MG/ML 1ML VIAL (J0360 PER 20MG) IV PRN (01:45)
[2021-09-22] MEDS ORDERED: HEPARIN DRIP 25,000 UNITS in IV 1 EA IV SCH (01:55)
[2021-09-22] MEDS ORDERED: HEPARIN SOD (PORCINE) 5000UNITS/ML 1ML VIAL/SYRINGE IV PRN (01:55)
[2021-09-22] MEDS ORDERED: LABETALOL 100MG/20ML VIAL IV STA (02:23)
[2021-09-22 05:48] LABS: HEMATOCRIT 30.9 % (36.0-47.0); HEMOGLOBIN 10.6 g/dl (12.0-15.5); MEAN CORPUSCULAR HEMOGLOBIN 34.6 pg (27.0-33.0); MEAN CORPUSCULAR HGB CONC 34.3 g/dl (32.0-36.5); PLATELET COUNT, AUTOMATED 166 10^3/uL (150-450); RED BLOOD COUNT 3.06 10^6/uL (4.00-5.40); WHITE BLOOD COUNT 5.9 10^3/uL (4.0-10.0)
[2021-09-22] MEDS ORDERED: HEPARIN SOD (PORCINE) 5000UNITS/ML 1ML VIAL/SYRINGE SC SCH (06:00)
[2021-09-22 06:16] LABS: ALBUMIN 3.3 GM/DL (3.2-5.2); BILIRUBIN,TOTAL 0.3 MG/DL (0.2-1.0); CREATININE FOR GFR 2.31 MG/DL (0.55-1.30); GLOMERULAR FILTRATION RATE 22.6 (>45); PHOSPHORUS LEVEL 2.8 MG/DL (2.5-4.9); POTASSIUM SERUM 3.2 MEQ/L (3.5-5.1)
[2021-09-22] MEDS: cloNIDine 0.05MG 1/2 TABLET PO SCH ×2 (06:44→21:46)
[2021-09-22] MEDS: ASPIRIN 81MG ENTERIC TABLET PO SCH (08:12)
[2021-09-22] MEDS: BACTRIM 160MG/800MG DS TAB PO SCH (08:12)
[2021-09-22] MEDS: FOLIC ACID 1 MG TAB PO SCH (08:13)
[2021-09-22] MEDS ORDERED: POTASSIUM CHLORIDE 10MEQ SR TABLET PO ONE (09:00)
[2021-09-22] MEDS: CALCITONIN SALMON (MIACALCIN) 400INTERNATIONAL UNITS/2ML INJ (J0630) SQ SCH ×2 (09:00→21:45)
[2021-09-22] MEDS ORDERED: TORSEMIDE 10 MG TABLET PO SCH (09:00)
[2021-09-22] MEDS: BUDESONIDE EC 3 MG CAP (ENTOCORT EC) PO SCH (09:23)
[2021-09-22] MEDS: HYDROXYCHLOROQUINE 200 MG TAB PO SCH (09:23)
[2021-09-22 10:29] LABS: PTH INTACT 19.8 PG/ML (18.5-88.0); TOTAL 25(OH) VITAMIN D 44.4 NG/ML (30.0-100.0)
--- NOTE | 2021-09-22 12:10 | IPNPDOC ---
Date Seen The patient was seen on 09/22/21. Progress Note SUBJECTIVE: Calcium slightly improved overnight, s/p pamidronate. Nephrology consulted and will reach out to her nephrology ([facility]) today if possible. Patient has hx of atrial fib, stopping heparin gtt and keeping on home ASA only. She denies chest pain, n/v/d, lightheadedness, shortness of breath. OBJECTIVE: PHYSICAL EXAMINATION: Vital Signs: Please see below GENERAL APPEARANCE: well-nourished and developed / NAD, resting in bed HEENT: EOMI, PERRLA CARDIOVASCULAR: irregularly irregular, No m/r/g, S1S2 +, pulses + in all extremity LUNGS: CTAB on RA, No w/r/r ABDOMEN: obese, distended, soft, nontender, no organomegaly MUSCULOSKELETAL: NCAT / SOLOMON x/ 4 extremities INTEGUMENT: normal skin turgor, no open lesions, no rash NEUROLOGICAL: CN 2-12 grossly intact, speech not dysarthric PSYCHIATRIC: Mood and affect appropriate LABORATORY DATA: Please see below IMAGING: Chest xray : No evidence of acute cardiopulmonary pathology. MICROBIOLOGY: COVID neg ECG: no acute ST elevations, 1st degree AV block QTC 475 ASSESSMENT: Ms. 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 PLAN: Severe Hypercalcemia -R/o medication related vs. other cause -Per slide fastener chain assembler at [facility] (Dr. Sher), had SPEP in 02/2020 due to Calcium being high at 11, was neg. All repeats have been normal for their office. -Calcium slightly improved today s/p IVFs, pamidronate by admission team -c/w telemetry monitoring, low calcium diet, IVFs -F/u TSH, PTH, Phosphorus & SPEP (to screen for MM bc she also has renal failure), CT chest, CT abd/pelvis -Appreciated nephrology consult. -Dr. Sher suggests to continue treatment here and will f/u as o/p. Hypertensive Crisis -Hx of resistent hypertension, has been getting watched by cardiology closely as o/p -BP improved s/p labetalol and hydralazine -Has not had chest pain since BP better controlled -C/w home medications -Tele, close monitoring -hydralazine PRN for systolic BP > 180 mmHg Mild Hyponatremia likely 2/2 diuretics -F/u serum osmo, U osmo, U Na / NS Hepatocellular Transaminitis likely 2/2 fatty liver -F/u CT abd/pelvis here -Daily CMP, avoid hepatotoxic meds if possible -F/u w PCP for Hep panel and Liver US CKD 4 -Cr baseline is 2.1-2.4 per her nephrology clinic. -C/w NS at decreased rate -F/u SPEP, daily labs IDDM -BS 140-160 -Started ISS, FS AC/HS, consistent carb diet, insulin glargine 100 U QHS -F/u HbA1C -Follows with endocrinology as o/p Atrial fibrillation, chronic -Follows with cardiology (Dr. Gaviria) as o/p. 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 Touched base with patient's Medical Anthropologist, Dr. Sher at [facility] who suggest patient stay and receive care here vs. transfer as patient was concerned she may need. Our nephrology team consulted. Full Code. VS, I&O, 24H, Fishbone Vital Signs/I&O Vital Signs Date Time Temp Pulse Resp B/P (MAP) Pulse Ox O2 Delivery O2 Flow Rate FiO2 09/22/21 11:15 59 158/75 (102) 97 Room Air 09/22/21 06:51 16 09/21/21 17:46 97.2 I&O- Last 24 Hours up to 6 AM 09/22/21 06:00 Intake Total 1010 ml Balance 1010 ml Laboratory Data 24H LABS Laboratory Tests 2 09/21/21 19:35: Immature Granulocyte % (Auto) 0.2, Neutrophils (%) (Auto) 54.5, Lymphocytes (%) (Auto) 27.7, Monocytes (%) (Auto) 12.6H, Eosinophils (%) (Auto) 4.5H, Basophils (%) (Auto) 0.5, Neutrophils # (Auto) 3.6, Lymphocytes # (Auto) 1.8, Monocytes # (Auto) 0.8, Eosinophils # (Auto) 0.3, Basophils # (Auto) 0.0, Nucleated Red Blood Cells % (auto) 0.0, Anion Gap 7L, Glomerular Filtration Rate 18.6L, Uric Acid 15.4H, Calcium Level 14.7*H, Phosphorus Level 3.4, Magnesium Level 2.9H, Total Bilirubin 0.4, Direct Bilirubin < 0.1, Aspartate Amino Transf (AST/SGOT) 49H, Alanine Aminotransferase (ALT/SGPT) 47, Alkaline Phosphatase 93, Total Creatine Kinase 169, Creatine Kinase MB < 1.0, Creatine Kinase MB Relative Index 0.59, Troponin I < 0.02, Total Protein 7.2, Albumin 3.9, Albumin/Globulin Ratio 1.2, Thyroid Stimulating Hormone (TSH) 1.910, Free Thyroxine 1.01 09/21/21 21:16: Coronavirus (COVID-19)(PCR) NEGATIVE, Influenza Type A (RT-PCR) NEGATIVE, Influe nza Type B (RT-PCR) NEGATIVE, Respiratory Syncytial Virus (PCR) NEGATIVE 09/22/21 05:30: Nucleated Red Blood Cells % (auto) 0.0, Anion Gap 9, Glomerular Filtration Rate 22.6L, Calcium Level 14.0H, Phosphorus Level 2.8, Total Bilirubin 0.3, Aspartate Amino Transf (AST/SGOT) 25, Alanine Aminotransferase (ALT/SGPT) 37, Alkaline Phosphatase 75, Total Protein 6.0L, Albumin 3.3, Albumin/Globulin Ratio 1.2, Activated Partial Thromboplast Time 30.5, Whole Blood Ionized Calcium 6.9*H, 25- Hydroxy Vitamin D Total 44.4, Parathyroid Hormone (Intact) 19.8 09/22/21 06:47: Bedside Glucose (Misc Panel) 137H 09/22/21 08:23: Activated Partial Thromboplast Time 20.0L CBC/BMP Laboratory Tests 09/21/21 19:35 09/22/21 05:30 Dionne Weber MD Sep 22, 2021 12:10
[2021-09-22] MEDS ORDERED: DEXTROSE 50% 50 ML SYRINGE IV PRN (12:35)
[2021-09-22] MEDS ORDERED: GLUCAGON INJ 1MG VIAL SC PRN (12:35)
[2021-09-22] MEDS ORDERED: GLUCOSE 4GM CHEW TABLET PO PRN (12:35)
--- NOTE | 2021-09-22 12:57 | REP ---
INDICATION: hypercalcemia, r/o malignant COMPARISON: 08/10/2020 TECHNIQUE: Axial noncontrast images from the thoracic inlet to the upper abdomen with coronal and sagittal reformations. This CT examination was performed using the following dose reduction techniques: Automated exposure control, adjustment of mA and/or kv according to the patient's size, and use of iterative reconstruction technique. FINDINGS: Stable part solid nodular density in the apical left lower lobe is again identified and unchanged compared to 2020. Lung gerardo are otherwise well aerated and clear. Minimal linear scarring at the lingula and left base are again noted. No acute consolidation or effusion. No pneumothorax. Tracheobronchial tree is patent. Mediastinum demonstrates stable atherosclerotic changes to the thoracic aorta and coronary arteries without aortic aneurysm or cardiomegaly. No pericardial effusion. No obvious adenopathy. Osseous structures demonstrate degenerative changes. Limited upper abdomen demonstrates normal bilateral adrenal glands. IMPRESSION: 1. Stable part solid nodule in the left lower lobe unchanged compared to 2020. 2. No further acute mediastinal or pleuroparenchymal process appreciated. <Electronically signed by Dat Millard > 09/22/21 [id number]
[2021-09-22] MEDS: HumaLOG INSULIN (NovoLOG) PER UNIT SC SCH ×3 (13:32→21:00)
[2021-09-22] MEDS: HEPARIN SOD (PORCINE) 5000UNITS/ML 1ML VIAL/SYRINGE SQ SCH ×2 (13:33→20:56)
[2021-09-22] MEDS: ACYCLOVIR 200 MG CAPSULE PO SCH ×2 (13:34→20:57)
--- NOTE | 2021-09-22 13:37 | REP ---
INDICATION: ely on ckd 4, hypercalcemia. COMPARISON: 05/31/2021 also without contrast TECHNIQUE: Standard helical technique without intravenous or oral bowel preparatory contrast FINDINGS: There is no change in the lung bases The liver, gallbladder, spleen, pancreas, adrenal glands, and kidneys are unchanged. Once again, there are bilateral nonobstructing nephroliths status quo. There is a right renal cyst status quo. There is pancreatic atrophy and fatty infiltration status quo. There is no significant change in appearance of the abdominal aorta or para-regions. There is no significant change in appearance of the bowel loops or the mesenteries. There is no evidence of a mass or adenopathy. There is no free fluid or free air. There is a small left-sided spigelian hernia status quo. Bone window technique throughout the examination shows no significant change in appearance of the imaged osseous structures. IMPRESSION: There is no evidence of acute disease or significant change compared to the prior exam with findings as described above. <Electronically signed by Luther Tsai > 09/22/21 [id number]
[2021-09-22] MEDS ORDERED: LORazepam 2 MG/ML VIAL IV ONE (19:20)
[2021-09-22] MEDS ORDERED: LORazepam 2 MG/ML VIAL IV STA (21:21)
[2021-09-22] MEDS ORDERED: ACETAMINOPHEN TAB 650MG DOSE (2X325MG) PO ONE (21:25)
[2021-09-22] MEDS ORDERED: NS 1,000 ML IV ONE (21:25)
[2021-09-22] MEDS ORDERED: diphenhydrAMINE 50MG/ML VIAL (J1200) IV ONE (21:25)
--- NOTE | 2021-09-22 22:01 | CR ---
CONSULTATION DATE: 09/22/2021 REQUESTING PHYSICIAN: Dionne Weber MD REASON FOR CONSULTATION: Acute kidney injury superimposed on CKD, stage 4 with hypercalcemia. HISTORY OF PRESENT ILLNESS: Miss Milana Mendosa is previously unknown to me. 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 The patient was directed to the emergency room for admission because of recent outpatient abnormal labs that revealed a serum calcium of 15. The patient complains of having a poor appetite recently and with some unintentional weight loss of 15-20 lbs and she complains of feeling like that there is a heaviness in her stomach. She tells me that she started a calcium supplementation a couple of weeks ago, once daily at the recommendation of her primary care physician for osteopenia/osteoporosis. She also does take thiazide diuretic daily. She denies any recent use of other calcium supplements or TUMS. She does report that she recently developed leg edema and started torsemide diuretic with good effect and with resolution of edema. She denies a prior known history of hypercalcemia. Initial laboratory studies over her yesterday evening revealed an ionized calcium of 6.9 and patient was given pamidronate 90 mg yesterday evening and she has also been on normal saline. Her admission creatinine was elevated at 2.7 but has improved this morning to 2.3. A nephrology evaluation was requested for help in the management of her acute kidney injury and moderate hypercalcemia. PAST MEDICAL HISTORY: 1. Insulin dependent diabetes mellitus. 2. CKD stage 4. 3. Primary myelofibrosis. 4. History of vbgkq-qxhxdo-lgmv disease. 5. Status post stem cell transplantation, chronically immunosuppressed. 6. System lupus erythematosus. 7. Fibromyalgia. 8. Atrial fibrillation. 9. Essential hypertension. 10. Obesity. 11. History of adrenal insufficiency. 12. Anxiety. 13. Depression. 14. Sleep apnea. 15. Restless legs syndrome. 16. Nephrolithiasis. 17. Grade 2 diastolic congestive heart failure. PAST SURGICAL HISTORY: 1. . 2. Hysterectomy. 3. Lithotripsy. 4. Bilateral cataract surgery. 5. Resection of skin cancer. 6. Wjiyms-y-Mdse placement. SOCIAL HISTORY: She denies any smoking, alcohol or drugs. FAMILY HISTORY: Significant for hypertension in multiple first degree relatives and a history of chronic kidney disease in her father. ALLERGIES: CONTRAST MEDIA, PENICILLIN, QUINOLONE, ADHESIVE TAPE, BANANA, HYDRALAZINE, INSULIN, meperidine, metoclopramide, PROCHLOrPERAZINE. HOME MEDICATIONS: 1. Acyclovir 400 mg p.o. b.i.d. 2. Aspirin 81 mg p.o. daily. 3. Budesonide 3 mg p.o. daily. 4. Chlorthalidone 25 mg p.o. daily. 5. Caltrate one tab daily. 6. Diltiazem 240 mg p.o. daily. 7. Docusate 200 mg p.o. b.i.d. 8. Flecainide 50 mg p.o. b.i.d. 9. Fluconazole 200 mg p.o. q.h.s. 10. Folic acid 1 mg p.o. daily. 11. Gabapentin 300 mg p.o. q.h.s. 12. Plaquenil 200 mg daily. 13. Insulin. 14. Lorazepam 1 mg p.o. q.h.s. 15. Valsartan 100 mg p.o. q.h.s. 16. Montelukast 10 mg p.o. q.h.s. 17. Oxybutynin 15 mg p.o. q.h.s. 18. Mirapex 0.275 mg p.o. q.h.s. 19. Senna one tab p.o. b.i.d. 20. Sertraline 50 mg p.o. q.h.s. 21. Tacrolimus 1 mg p.o. b.i.d. 22. Torsemide 10 mg p.o. daily. REVIEW OF SYSTEMS: Constitutional: She denies fevers or chills. She some unintentional along with intentional weight loss. Eyes: She denies visual changes or tearing. She has a history of cataract surgery. ENT: She denies rhinorrhea, epistaxis, odynophagia. Cardiac: She has a history of diastolic congestive heart failure, atrial fibrillation and hypertension. Respiratory: She has a history of sleep apnea. She denies oxygen use chronically. She denies shortness of breath. Gastrointestinal: She reports a heaviness in her stomach. She reports nausea and poor appetite. Genitourinary: She denies dysuria or hematuria. Patient reports history of nephrolithiasis and a lithotripsy. Endocrine: She denies a prior history of hypercalcemia. She does report a history of diabetes mellitus and adrenal insufficiency. Hematologic: She reports no chronic anticoagulation. She reports some allergy to anticoagulant in the past. Patient reports history of primary myelofibrosis and status post stem cell transplant. Musculoskeletal: She reports no acute myalgias at this time. She does have a history of fibromyalgia. Skin: She reports history of skin cancer. Neurologic: She denies any history of seizures or recent syncope. Psychiatric: She reports anxiety and depression. Remainder of review of systems is negative or as per HPI. PHYSICAL EXAMINATION: Vital signs: Temperature 97.2, pulse 67, respiratory rate 16, blood pressure 158/75, saturating 97% on room air. Intake and output are not fully recorded. General: Patient is seen in the emergency room lying in the stretcher, awake, alert and oriented x3, comfortable, in no apparent distress. HEENT: Extraocular muscles are intact. Tongue is moist. Neck: Supple. Jugular veins are not elevated. Heart sounds are irregularly irregular. There is no tachycardia. Extremities: There is no peripheral edema. There is no dependent edema. Lungs: Clear to auscultation bilaterally. She is comfortable on room air. There is no crackle or rale. Abdomen: Soft, obese and nontender. Genitourinary: There is no Ervin catheter. Chest wall: There is a port present in the right chest wall. Musculoskeletal: There is no peripheral edema. There is no clubbing or cyanosis. Neurologic: She is oriented x3, interactive, conversational. Psychiatric: Appropriate mood and affect. Skin: Normal skin turgor. No visible rashes. LABORATORY DATA: White count 5.9, hemoglobin 10.6, platelets 166. Sodium 137, potassium 3.2, BUN 56, creatinine 2.3, down from 2.7 yesterday, GFR 22, calcium 14.0, albumin 3.3, phosphorus 2.8, parathyroid hormone of 19, vitamin D 44, TSH, free T4 within normal limits. SPEP is pending. AST, ALT within normal limits. CT of the chest, abdomen and all pelvis, all noncontrast are essentially unremarkable. There are bilateral nonobstructing kidney stones noted. INPATIENT MEDICATIONS: She was on normal saline at 150 mL an hour. I have cut this down to 40 mL an hour. She received Pamidronate 90 mg IV x1 yesterday evening. She is on Acyclovir 400 mg p.o. b.i.d., aspirin 81 mg p.o. daily, budesonide 3 mg p.o. daily. Calcitonin is ordered, 300 units subcu q.12 hourly for a total of six doses, clonidine, diltiazem 240 mg p.o. daily, Docusate 200 mg p.o. b.i.d., Flecainide 50 mg p.o. b.i.d., Fluconazole 200 mg p.o. q.h.s., folic acid 1 mg p.o. daily, gabapentin 300 mg p.o. q.h.s., heparin 5000 units subcu q.12 hourly, hydralazine 5 mg p.r.n. systolic greater than 160, Plaquenil 200 mg p.o. daily, insulin. She got one dose of IV labetalol 10 mg, one dose of Ativan 0.5 mg IV x1, Montelukast 10 mg p.o. q.h.s., Losartan 100 mg p.o. q.h.s., potassium chloride 30 mEq p.o. x1, Mirapex 0.275 mg p.o. q.h.s., Senokot one tab p.o. b.i.d., Sertraline 50 mg p.o. q.h.s., Tacrolimus 1 mg p.o. b.i.d, Bactrim one tab p.o. Monday, Monday, Monday. PROBLEMS: 1. Acute kidney injury superimposed on CKD stage 4 in the setting of recent poor oral intake and also with moderate hypercalcemia. Patient is receiving IV fluid. I cut the rate of the normal saline down to 40 mL an hour. We will likely stop IV fluid by tomorrow morning. Her renal function is already improving back towards her usual baseline and imaging was negative for obstruction. 2. Moderate hypercalcemia. Her ionized calcium was 6.9. Patient received a dose of IV Pamidronate yesterday evening in the emergency room. Typically, bisphosphonate is not preferable for use in CKD 4. Patient is expected to have improvements in her calcium level over the next couple of days. Hypercalcemia is possibly related to recent addition of caltrate one tablet daily along with chronic use of chlorthalidone and recent initiation of torsemide and in the setting of relative hypovolemia and dehydration. Other workup is pending including SPEP. Her parathyroid hormone is appropriately suppressed and her vitamin D level is at therapeutic levels but certainly not toxic. She is off of all interfering medications and six doses of calcitonin are also ordered. We will keep an eye on her calcium levels. CT scan of the chest, abdomen and pelvis was unrevealing. 3. Hypertension. Blood pressures are still elevated. The patient has not received all of her home antihypertensives yet and there is also p.r.n. IV hydralazine ordered. I have cut down the rate of the IV fluids as it is also likely causing her to have higher blood pressure. 4. Chronic diastolic congestive heart failure. Recent echocardiogram done in August showed grade 2 diastolic dysfunction. Patient has received aggressive IV fluid overnight. I cut the normal saline down from 150 mL an hour down to 40 mL an hour and I will plan to stop the IV fluid by tomorrow morning. Her volume status is currently acceptable. There is no sign of fluid overload on any of her imaging and she is respiring well on room air. We will keep an eye on her volume status. Patient takes torsemide at home which is presently held along with chlorthalidone. 5. Hypokalemia. Patient was given potassium supplementation. 6. Atrial fibrillation. Patient is presently rate controlled. Her antiarrhythmic regimen includes diltiazem, flecainide. She does not take any chronic anticoagulant. 7. Thank you for involving me in the care of Miss Mendosa. I will be happy to follow her along with you.
[2021-09-22 22:07] LABS: CALCIUM LEVEL 12.6 MG/DL (8.8-10.2); CREATININE FOR GFR 2.07 MG/DL (0.55-1.30); GLOMERULAR FILTRATION RATE 25.7 (>45); MAGNESIUM LEVEL 1.8 MG/DL (1.8-2.4); POTASSIUM SERUM 3.6 MEQ/L (3.5-5.1)
--- NOTE | 2021-09-22 22:14 | HPEPDOC ---
[facility] Medical History & Physical History and Physical CHIEF COMPLAINT: HISTORY OF PRESENT ILLNESS: PAST MEDICAL HISTORY: 1. . 2. . 3. . PAST SURGICAL HISTORY: 1. . 2. . 3. . SOCIAL HISTORY: Marital status: . Resides in: Children: Employment: Tobacco use: ETOH: Illicit drug use: Tattoos done unprofessionally: . IV drug use: Other relevant social factors: FAMILY HISTORY: Father: Mother: Siblings: Children: Hereditary Diseases: Unexpected deaths due to medical reasons: ALLERGIES: Please see below. REVIEW OF SYSTEMS: CONSTITUTIONAL: . HEENT: . CARDIOVASCULAR: . RESPIRATORY: . GASTROINTESTINAL: . GENITOURINARY: . SKIN: . MUSCULOSKELETAL: . NEUROLOGICAL: . PSYCHIATRIC: . ENDOCRINE: . HEMATOLOGIC/LYMPHATIC: . HOME MEDICATIONS: Please see below. PHYSICAL EXAMINATION: VITAL SIGNS: Temperature , pulse , respiratory rate , blood pressure , pulse oximetry % on room air. GENERAL APPEARANCE: . HEENT: . CARDIOVASCULAR: . LUNGS: . ABDOMEN: . MUSCULOSKELETAL: . EXTREMITIES: . NEUROLOGICAL: . PSYCHIATRIC: . LABORATORY DATA: See below. IMAGING: MICROBIOLOGY: Please see below. ASSESSMENT: . . PLAN: 1. . Vital Signs Vital Signs Date Time Temp Pulse Resp B/P (MAP) Pulse Ox O2 Delivery O2 Flow Rate FiO2 09/22/21 22:04 136 18 97 Room Air 09/22/21 21:46 144/82 09/22/21 20:41 102.2 Laboratory Data Labs 24H Laboratory Tests 2 09/22/21 05:30: Nucleated Red Blood Cells % (auto) 0.0, Activated Partial Thromboplast Time 30.5, Anion Gap 9, Glomerular Filtration Rate 22.6L, Calcium Level 14.0H, Whole Blood Ionized Calcium 6.9*H, Phosphorus Level 2.8, Total Bilirubin 0.3, Asparta te Amino Transf (AST/SGOT) 25, Alanine Aminotransferase (ALT/SGPT) 37, Alkaline Phosphatase 75, Total Protein 6.0L, Albumin 3.3, Albumin/Globulin Ratio 1.2, 25- Hydroxy Vitamin D Total 44.4, Parathyroid Hormone (Intact) 19.8 09/22/21 06:47: Bedside Glucose (Misc Panel) 137H 09/22/21 08:23: Activated Partial Thromboplast Time 20.0L 09/22/21 13:27: Bedside Glucose (Misc Panel) 137H 09/22/21 17:11: Bedside Glucose (Misc Panel) 150H 09/22/21 19:03: Bedside Glucose (Misc Panel) 136H 09/22/21 20:38: Bedside Glucose (Misc Panel) 130H 09/22/21 21:21: Anion Gap 9, Glomerular Filtration Rate 25.7L, Calcium Level 12.6H, Magnesium Level 1.8 09/22/21 21:24: Whole Blood Ionized Calcium 5.9H CBC/BMP Laboratory Tests 09/22/21 05:30 09/22/21 21:21 Home Medications Scheduled Acyclovir (Acyclovir) 400 Mg Tab, 400 MG PO BID Aspirin (Aspirin EC) 81 Mg Tablet.dr, 81 MG PO DAILY Budesonide (Budesonide EC) 3 Mg Cap, 3 MG PO DAILY Chlorthalidone (Chlorthalidone) 25 Mg Tablet, 25 MG PO DAILY Diltiazem HCl (Dilt-Xr) 240 Mg Cap.er.deg, 240 MG PO DAILY Docusate Sodium (Colace) 100 Mg Capsule, 200 MG PO BID Flecainide Acetate (Flecainide Acetate) 50 Mg Tablet, 50 MG PO BID Fluconazole (Diflucan) 200 Mg Tab, 200 MG PO QHS Folic Acid (Folic Acid) 1 Mg Tablet, 1 MG PO DAILY Gabapentin (Gabapentin) 300 Mg Capsule, 300 MG PO QHS Hydroxychloroquine Sulfate (Hydroxychloroquine Sulfate) 200 Mg Tablet, 200 MG PO DAILY Insulin Glargine,Hum.rec.anlog (Lantus Solostar) 100 Unit/1 Ml Insuln.pen, 24 UNITS SC QHS Insulin Lispro (Admelog Solostar) 100 Unit/1 Ml Insuln.pen, 1 DOSE SC AC PER SLIDING SCALE Lorazepam (Lorazepam) 1 Mg Tablet, 1 MG PO QHS Losartan Potassium (Losartan Potassium) 100 Mg Tablet, 100 MG PO QHS Montelukast Sodium (Montelukast Sodium) 10 Mg Tablet, 10 MG PO QHS Oxybutynin Chloride (Oxybutynin Chloride ER) 15 Mg Tab.er.24, 15 MG PO QHS Pramipexole Di-HCl (Mirapex) 0.125 Mg Tablet, 0.375 MG PO QHS Sennosides (Senna) 8.6 Mg Tablet, 1 TAB PO BID Sertraline Hcl (Sertraline HCl) 50 Mg Tablet, 50 MG PO QHS Sulfamethoxazole/Trimethoprim (Bactrim Ds Tablet) 1 Each Tablet, 1 TAB PO 3XW MON, WED, FRI Tacrolimus (Tacrolimus) 1 Mg Capsule, 1 MG PO BID Torsemide (Torsemide) 5 Mg Tablet, 10 MG PO DAILY Scheduled PRN Acetaminophen (Tylenol Arthritis) 650 Mg Tablet.er, 650 MG PO Q8H PRN for MILD PAIN (PS 1-4) Clotrimazole (Clotrimazole) 1% 28GM Cream..g., 1 DOSE TOP BID PRN for ITCHING Cyclobenzaprine HCl (Cyclobenzaprine HCl) 10 Mg Tablet, 10 MG PO TID PRN for MUSCLE SPASMS Dexamethasone (Dexamethasone) 0.5 Mg/5 Ml Elixir, 0.5 MG PO QID PRN for MILD DISCOMFORT Hydrocodone/Acetaminophen (Hydrocodone-Acetamin 5-325 mg) 1 Each Tablet, 1 TAB PO Q6H PRN for SEVERE PAIN (PS 8-10) MDD 4 Hydrocortisone (Hydrocortisone) 28 Gm Cream..g., 1 DOSE EXT TID PRN for REDNESS/ITCHING APPLIES TO FACE AND FOREHEAD Lactulose (Lactulose) 10 Gm/15 Ml Maryellen, 30 ML PO TID PRN for CONSTIPATION Lidocaine HCl (Lidocaine HCl Viscous) 15 Ml Solution, 5 ML SSP QID PRN for MOUTH SORES Lorazepam (Lorazepam) 1 Mg Tablet, 0.5 MG PO QHS PRN for INSOMNIA Tramadol HCl/Acetaminophen (Tramadol-Acetaminophn 37.5-325) 1 Each Tablet, 1 TAB PO TID PRN for MODERATE PAIN (PS 5-7) Allergies Coded Allergies: Contrast Media (Verified Allergy, Severe, tongue swelling, 03/16/19) Penicillins (Verified Allergy, Severe, CAN'T BREATH, 03/16/19) meperidine (Verified Allergy, Severe, CAN'T BREATH, 03/16/19) metoclopramide (Verified Allergy, Severe, tremors, excitability, difficulty breathing, 05/12/20) prochlorperazine (Verified Allergy, Severe, CAN'T BREATH, 11/14/19) TAKES PROMETHAZINE AT HOME; THEREFORE NOT A CLASS EFFECT adhesive tape (Verified Allergy, Intermediate, BLISTERS, 03/16/19) Quinolones (Verified Allergy, Unknown, UNKNOWN, 02/16/19) hydralazine (Verified Allergy, Unknown, eye and lip swelling, 09/22/21) insulin isophane (NPH) (Verified Allergy, Unknown, SOB, 08/30/21) banana (Verified Adverse Reaction, Mild, VOMITING, 08/19/19) A-FIB/CHADSVASC Age/Risk Factor Scoring CHADSVASC: CHADSVASC Response (Comments) Value Gender Risk Factor Female 1 Hx of HTN Yes 1 Hx of Diabetes Yes 1 Total ZO BIRMINGHAM MD Sep 22, 2021 22:14
[2021-09-22] MEDS ORDERED: VANCOMYCIN HCL 750 MG, VIAL MATE ADAPTER 1 EACH in NS 250 ML IV ONE (22:15)
--- NOTE | 2021-09-22 22:15 | IPNPDOC ---
Text Note Date of Service The patient was seen on 09/22/21. VS,Maynor, I+O VS, Spensere, I+O Laboratory Tests 09/22/21 05:30 09/22/21 21:21 Vital Signs Date Time Temp Pulse Resp B/P (MAP) Pulse Ox O2 Delivery O2 Flow Rate FiO2 09/22/21 22:04 136 18 97 Room Air 09/22/21 21:46 144/82 09/22/21 20:41 102.2 I&O- Last 24 Hours up to 6 AM 09/22/21 06:00 Intake Total 1010 ml Balance 1010 ml ZO BIRMINGHAM MD Sep 22, 2021 22:15
[2021-09-22 22:20] LABS: PROLACTIN 1.7 NG/ML
--- NOTE | 2021-09-22 22:31 | IPNPDOC ---
Text Note Date of Service The patient was seen with collaborating physician on 09/22/21. NOTE Pt seen with spasms, involuntary generalized movements; Consider seizure however she is a/ox3 and can still purposefully move/ follow commands. Pt is not on any antipsych medications, but concern for tardive dyskinesia. Pt also with fever 102.1F rectal, BP 144/62, hr 120-164 afib on tele, rr 20 ? rigors. ca elevated today, state bmp, ionized CA and bolus Pt denies sob, cp, GREGORIO; but does report generalized discomfort with the movements. She does endorse chills. tachycardic irregular heart rythm, no murmur, CTA, normoactive BS, nontender abd, no edema appreciated Hx of lupus, restless leg, MM on prograf, flecainide of afib. Pt given tylenol, benadryl and ativan.Also her nightly flecainide. She has nonacute ct chest and ct a/p today. UA to be obtained and BC. Will cover for sepsis and once pt relaxes from the medications- will obtain CT head and consider further neuro w/u. Consider differential. Update: pt with relief post medications; still minor nodding noticed while pt sleeping, but she appears comfortable. VS,Fishbone, I+O VS, Fishbone, I+O Laboratory Tests 09/22/21 05:30 09/22/21 21:21 Vital Signs Date Time Temp Pulse Resp B/P (MAP) Pulse Ox O2 Delivery O2 Flow Rate FiO2 09/22/21 22:04 136 18 97 Room Air 09/22/21 21:46 144/82 09/22/21 20:41 102.2 I&O- Last 24 Hours up to 6 AM 09/22/21 06:00 Intake Total 1010 ml Balance 1010 ml WASHINGTON PETERSEN NP Sep 22, 2021 22:31
--- NOTE | 2021-09-22 23:31 | REPVR ---
PROCEDURE INFORMATION: Exam: CT Head Without Contrast Exam date and time: 09/22/2021 11:01 PM Age: 66 years old Clinical indication: Other: Ataxia and tardive dyskinesia TECHNIQUE: Imaging protocol: Computed tomography of the head without contrast. Radiation optimization: All CT scans at this facility use at least one of these dose optimization techniques: automated exposure control; mA and/or kV adjustment per patient size (includes targeted exams where dose is matched to clinical indication); or iterative reconstruction. COMPARISON: CT Head without contrast 01/26/2021 10:47 PM FINDINGS: Limitations: Examination is limited by motion artifact. Brain: No intracranial hemorrhage or extra-axial fluid collection. No evidence of mass effect or midline shift. Ronquillo-white matter differentiation is normal. Cerebral ventricles: Mild prominence of the ventricles and sulci, most likely attributed to parenchymal volume loss. Paranasal sinuses: Visualized sinuses are unremarkable. No fluid levels. Mastoid air cells: Unremarkable. Bones/joints: No acute osseus lesion or fracture. Soft tissues: Unremarkable. IMPRESSION: 1. No acute intracranial pathology. 2. Chronic findings, as above. Electronically signed by: Santosh Huston On 09/22/2021 23:30:41 PM
[2021-09-23] MEDS ORDERED: METOPROLOL 5 MG/5 ML VIAL IV STA (00:12)
[2021-09-23] MEDS ORDERED: VANCOMYCIN HCL 1,000 MG, VIAL MATE ADAPTER 1 EACH in NS 250 ML IV SCH (01:00)
[2021-09-23] MEDS ORDERED: MEROPENEM INJ 500 MG in IV 1 EA IV SCH ×2 (03:00→04:00)
[2021-09-23 06:13] LABS: HEMATOCRIT 30.2 % (36.0-47.0); HEMOGLOBIN 10.3 g/dl (12.0-15.5); MEAN CORPUSCULAR HEMOGLOBIN 34.7 pg (27.0-33.0); MEAN CORPUSCULAR HGB CONC 34.1 g/dl (32.0-36.5); MEAN CORPUSCULAR VOLUME 101.7 fl (80.0-96.0); PLATELET COUNT, AUTOMATED 137 10^3/uL (150-450); RED BLOOD COUNT 2.97 10^6/uL (4.00-5.40); WHITE BLOOD COUNT 4.3 10^3/uL (4.0-10.0)
[2021-09-23 06:38] LABS: ALBUMIN 2.8 GM/DL (3.2-5.2); BILIRUBIN,TOTAL 0.4 MG/DL (0.2-1.0); CALCIUM LEVEL 11.2 MG/DL (8.8-10.2); CREATININE FOR GFR 1.99 MG/DL (0.55-1.30); GLOMERULAR FILTRATION RATE 26.9 (>45); POTASSIUM SERUM 3.7 MEQ/L (3.5-5.1); TOTAL PROTEIN 5.4 GM/DL (6.4-8.2)
[2021-09-23 08:00] VITALS: BP 141/71
[2021-09-23] MEDS: FOLIC ACID 1 MG TAB PO SCH (08:38)
[2021-09-23] MEDS: SENNA 8.6 MG TAB (SENOKOT) PO SCH ×2 (08:38→21:00)
[2021-09-23] MEDS: ASPIRIN 81MG ENTERIC TABLET PO SCH (08:38)
[2021-09-23] MEDS: HEPARIN SOD (PORCINE) 5000UNITS/ML 1ML VIAL/SYRINGE SQ SCH ×2 (08:38→21:30)
--- NOTE | 2021-09-23 08:38 | ECGEPIP ---
[facility] Test Date: 2021-09-22 Pat Name: ROLAND ASHFORD Department: Room: [place] [address] Gender: Female Animal Tech: DEREK : [id number] Requested By: ZO BIRMINGHAM Order Number: [id number] Reading MD: Reyes Santillan Measurements Intervals [place] Rate: 132 P: 60 MN: 228 QRS: -52 QRSD: 114 T: 104 QT: 294 QTc: 435 Interpretive Statements suspected atrial fibrillation with rapid ventricular response Left axis deviation - left anterior hemiblock Low limb voltages with slow precordial R wave progression and persistent S waves V5 and V6; body habitus versus pulmonary disease. Incomplete LEFT BUNDLE BRANCH BLOCK with ST/T wave abnormalities Rhythm change with more marked repolarization abnormalities from 09/21/21 Clinical correlation advised Electronically Signed on 09-23-2021 8:38:09 EST by Reyes Santillan
[2021-09-23] MEDS: DOCUSATE SODIUM 100MG CAPSULE PO SCH ×2 (08:39→21:00)
[2021-09-23] MEDS: FLECAINIDE 50MG TABLET PO SCH ×2 (08:39→21:28)
[2021-09-23] MEDS: HYDROXYCHLOROQUINE 200 MG TAB PO SCH (08:39)
[2021-09-23] MEDS: TACROLIMUS 1 MG CAP (J7507) PO SCH ×2 (08:39→21:28)
[2021-09-23] MEDS: ACYCLOVIR 200 MG CAPSULE PO SCH ×2 (08:43→21:23)
[2021-09-23] MEDS: cloNIDine 0.05MG 1/2 TABLET PO SCH ×2 (08:50→21:24)
[2021-09-23] MEDS: CALCITONIN SALMON (MIACALCIN) 400INTERNATIONAL UNITS/2ML INJ (J0630) SQ SCH ×2 (09:41→21:36)
[2021-09-23] MEDS: HumaLOG INSULIN (NovoLOG) PER UNIT SC SCH ×4 (09:46→20:39)
[2021-09-23 11:31] LABS: TOTAL PROTEIN 7.2 GM/DL (6.4-8.2)
[2021-09-23 12:00] VITALS: BP 162/78
[2021-09-23 12:09] LABS: ALBUMIN 4.45 GM/DL (3.29-5.55); ALBUMIN % 61.8 % (55.8-66.1); ALPHA-1-GLOBULIN % 4.9 % (2.9-4.9); ALPHA-1-GLOBULINS 0.35 GM/DL (0.17-0.41); ALPHA-2-GLOBULINS % 14.3 % (7.1-11.8); BETA-1-GLOBULINS % 5.5 % (4.7-7.2); BETA-2-GLOBULINS % 4.3 % (3.2-6.5); GAMMA GLOBULIN % 9.2 % (11.1-18.8)
[2021-09-23 12:10] LABS: ALPHA-2-GLOBULINS 1.03 GM/DL (0.42-0.99); BETA-2-GLOBULINS 0.31 GM/DL (0.19-0.55); GAMMA GLOBULINS 0.66 GM/DL (0.65-1.58)
--- NOTE | 2021-09-23 12:37 | IPNPDOC ---
Date Seen The patient was seen on 09/23/21. Progress Note SUBJECTIVE: Calcium improving slowly. Worsening tardive dyskinesia overnight, documented by night team- also spiked fever and went into afib with RVR. She was pancultured. Today afebrile, HR controlled. Discussed with neurology who suggested workup/treatment below. She denies chest pain, n/v/d, lightheadedness, shortness of breath. OBJECTIVE: PHYSICAL EXAMINATION: Vital Signs: Please see below GENERAL APPEARANCE: well-nourished and developed / NAD, resting in bed HEENT: EOMI, PERRLA CARDIOVASCULAR: irregularly irregular, No m/r/g, S1S2 +, pulses + in all extremity LUNGS: CTAB on RA, No w/r/r ABDOMEN: obese, distended, soft, nontender, no organomegaly MUSCULOSKELETAL: NCAT / SOLOMON x/ 4 extremities INTEGUMENT: normal skin turgor, no open lesions, no rash NEUROLOGICAL: CN 2-12 grossly intact, speech not dysarthric PSYCHIATRIC: Mood and affect appropriate LABORATORY DATA: Please see below IMAGING: CT head 09/22/21: 1. No acute intracranial pathology. 2. Chronic findings, as above. CT chest: 1. Stable part solid nodule in the left lower lobe unchanged compared to 2019. 2. No further acute mediastinal or pleuroparenchymal process appreciated. Chest xray : No evidence of acute cardiopulmonary pathology. ECG: no acute ST elevations, 1st degree AV block QTC 475 MICROBIOLOGY: COVID neg F/u BCx x 2 F/u UA ASSESSMENT: Ms. 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 PLAN: Fever r/o infection -Fever 102.2 last evening, atrial fib with RVR. No incr SOB, has been afebrile today -Blood cultures x 2 pending, UA ordered -CT neg for PNA -Unsure if this could be 2/2 to episode of worsening dyskinesia which was reported at same time of fever. -F/u all cultures and labs. -Started on meropenem and vancomycin last evening;however, no s/s of PNA. Stopped this AM. Ordered procalcitonin, if elevated can consider starting on HCAP coverage but currently no evidence on imaging directly. Holding off on abx at this time. -Tylenol PRN (use cautiously with liver issues below) Atrial fibrillation with RVR r/o 2/2 to possible infection (see above) -HR last evening 140's with fever, today 94-113 -Incr diltiazem to 360 mg PO daily -Monitor closely with holding parameters, c/w other home medications Acute hypercalcemia, improving slowly -R/o medication related vs. other cause -Per clinical marketing manager at [facility] (Dr. Sher), had SPEP in 02/2020 due to Calcium being high at 11, was neg. All repeats have been normal for their office. -Pamidronate given by admission team -TSH, PTH wnl. SPEP pending -CT chest shows stable lung nodule -CT abd/pelvis neg -C/w telemetry monitoring, low calcium diet, IVFs -Nephrology consulted, f/u note Tardive dyskinesia, chronic, r/o 2/2 to medications / hx of restless leg syndrome -Difficult to say if RLS is that or if movement of lower extremities are actually tardive dyskinesia -On pramipexole, not highest dose and appropriate for renal clearance -Case discussed with neurology (Dr. Roche), who has seen patient in office in past (not for tardive dyskinesia;however) -Recommendations are to decrease pramipexole to 0.125 nightly, add benztropine 0.5 mg PO BID and can increase over next several days Unsteady gait 2/2 to abnormal movements of legs above -PT/OT -C/w treatment above HTN -resolved hypertensive crisis -Hx of resistant hypertension, has been getting watched by cardiology closely as o/p -BP slightly elevated still -Has not had chest pain since BP better controlled -Increased diltiazem to 360 mg daily, holding parameters placed -Tele, close monitoring -hydralazine PRN for systolic BP > 180 mmHg Hypokalemia, acute -wnl today -F/u daily labs Hepatocellular Transaminitis likely 2/2 fatty liver -CT abd/pelvis above -Daily CMP, avoid hepatotoxic meds if possible -F/u w PCP for Hep panel and Liver US CKD 4 -Cr baseline is 2.1-2.4 per her nephrology clinic, 1.99 today -C/w NS at decreased rate -F/u SPEP, daily labs IDDM -BS 140-160 -C/w ISS, FS AC/HS, consistent carb diet, insulin glargine 100 U QHS -F/u HbA1C -Follows with endocrinology as o/p LLL nodule -F/u o/p, on RA SLE -Not currently in exacerbation -C/w Gabapentin Fibromyalgia / Anxiety, Depression -Gabapentin, Lorazepam, Sertraline, Hydrocodone/Acetaminophen w stool softeners 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 Discussed with neurology today, see above. Full Code. VS, I&O, 24H, Fishbone Vital Signs/I&O Vital Signs Date Time Temp Pulse Resp B/P (MAP) Pulse Ox O2 Delivery O2 Flow Rate FiO2 09/23/21 08:50 113 142/75 09/23/21 08:00 99.1 19 96 Room Air I&O- Last 24 Hours up to 6 AM 09/23/21 06:00 Intake Total 1955 ml Output Total 875 ml Balance 1080 ml Laboratory Data 24H LABS Laboratory Tests 2 09/22/21 13:27: Bedside Glucose (Misc Panel) 137H 09/22/21 17:11: Bedside Glucose (Misc Panel) 150H 09/22/21 19:03: Bedside Glucose (Misc Panel) 136H 09/22/21 20:38: Bedside Glucose (Misc Panel) 130H 09/22/21 21:21: Anion Gap 9, Glomerular Filtration Rate 25.7L, Calcium Level 12.6H, Magnesium Level 1.8, Prolactin 1.7 09/22/21 21:24: Whole Blood Ionized Calcium 5.9H 09/22/21 22:13: Lactic Acid Level 0.7 09/23/21 05:56: Anion Gap 8, Glomerular Filtration Rate 26.9L, Calcium Level 11.2H, Nucleated Red Blood Cells % (auto) 0.0, Total Bilirubin 0.4, Aspartate Amino Transf (AST/SGOT) 32, Alanine Aminotransferase (ALT/SGPT) 38, Alkaline Phosphatase 68, Total Protein 5.4L, Albumin 2.8L, Albumin/Globulin Ratio 1.1L 09/23/21 09:16: Bedside Glucose (Misc Panel) 129H CBC/BMP Laboratory Tests 09/22/21 21:21 09/23/21 05:56 Microbiology Microbiology 09/22/21 Blood Culture, Received Pending 09/22/21 Blood Culture, Received Pending Dionne Weber MD Sep 23, 2021 12:37
--- NOTE | 2021-09-23 15:58 | REPVR ---
PROCEDURE INFORMATION: Exam: MR Head Without Contrast Exam date and time: 09/23/2021 3:34 PM Age: 66 years old Clinical indication: Other: Chronic tardive dyskinesia; Additional info: Chronic tardive dyskinesia/odd movemen, R/O intracranial abn TECHNIQUE: Imaging protocol: MR of the head without contrast. COMPARISON: CT Head without contrast 09/22/2021 10:53 PM FINDINGS: Brain: There is mildly increased signal in the periventricular white matter with a few additional hyperintense foci scattered throughout the white matter. This is a nonspecific finding most likely to represent mild chronic microvascular disease. DWI demonstrates no evidence of acute infarct. There is artifact on the DWI images. Gradient echo images demonstrate no evidence of hemorrhage. There is no extra-axial collection. There is no mass. There are no abnormal flow voids. Cerebral ventricles: There is no hydrocephalus. Bones/joints: Unremarkable. Paranasal sinuses: There is mild mucosal thickening in the ethmoid and frontal sinuses. No air-fluid levels. Mastoid air cells: Normal as visualized. No mastoid effusion. Orbital cavity: Unremarkable. Soft tissues: Unremarkable. IMPRESSION: 1. Mild hyperintense signal in the white matter most likely to represent mild chronic microvascular disease. 2. No acute intracranial lesion or injury Electronically signed by: Vj Wiggins On 09/23/2021 15:58:16 PM
[2021-09-23] MEDS: BUDESONIDE EC 3 MG CAP (ENTOCORT EC) PO SCH (15:59)
[2021-09-23 16:00] VITALS: BP 144/67
[2021-09-23] MEDS ORDERED: BENZTROPINE 0.5 MG TAB PO ONE (17:00)
--- NOTE | 2021-09-23 19:56 | IPN ---
NEPHROLOGY PROGRESS NOTE DATE: 09/23/2021 SUBJECTIVE: Miss Cortés is seen and examined this morning at the bedside. She offers no complaints. No shortness of breath. She is urinating well. Renal function has recovered back towards baseline. Hypercalcemia is improving nicely. She did have a temperature spike yesterday evening of 102.2 and was in atrial fibrillation with rapid ventricular response with a heart rate up into the 140's and 150's and had a subsequent bout of hypotension at which point she was bolused a liter of fluid (10:00 p.m. last night). This morning she is afebrile, hemodynamically stable and saturating well on room air. OBJECTIVE: PHYSICAL EXAMINATION: VITAL SIGNS: Temperature T-max 102.2, T-current 98.9, pulse 72, respiratory rate 18, blood pressure 142/75, saturating 97% on room air. INTAKE AND OUTPUT: Intake yesterday was not fully recorded. Urine output today is already more than 1.5 liters. Weight in the bed scale is 89.5 kg. GENERAL APPEARANCE: The patient is seen lying flat in bed, elderly female, awake, alert, oriented x3, in no apparent distress. HEENT: The extraocular muscles are intact. Tongue is moist. NECK: Supple. Jugular veins are not elevated. HEART: Sounds are irregularly irregular. There is no peripheral edema. Peripheral pulses are palpable. There is an [id number] in the right chest wall. LUNGS: Clear to auscultation bilaterally. No crackles, rales or rhonchi. ABDOMEN: Soft, obese and nontender. There is no Ervin catheter. Bladder is not palpable. EXTREMITIES: No clubbing, cyanosis, or edema. SKIN: Warm, dry, normal temperature and turgor. No rashes. NEUROLOGICAL: Oriented x3, interactive, conversational, cooperative with physical exam. She moves all extremities on command. LABORATORY STUDIES: White count 4.3, hemoglobin 10.3, platelet count 137, sodium 141, potassium 3.7, bicarbonate 24, BUN 37, creatinine 1.99, calcium 11.2, albumin 2.8, corrected calcium 12.1. PTH less than 20. Vitamin D 125 and nutritional vitamin D both within normal range and less than 50. SPEP no M spike. Blood culture and urine culture are pending. IMAGING: Brain MRI this morning shows no acute findings. INPATIENT MEDICATIONS: The patient was given one dose of Meropenem. She was bolused a liter of normal saline yesterday at 10:00 p.m. She was given a dose of Vancomycin. She has received 2 doses of Calcitonin thus far. She was given a dose of Cogentin 0.5 mg p.o. times one. Her Diltiazem dose was adjusted by the Primary Team. Her remainder medications are unchanged as compared to yesterday. PROBLEMS: 1. Acute kidney injury superimposed on chronic kidney disease stage 4 (non oliguric) in the setting of recent dehydration and moderate hypercalcemia - This patient is status post IV fluids. She is tolerating oral intake now. I have stopped IV fluids and her renal function has recovered back towards baseline. Her imaging was negative for obstruction. She continues on her chronic home ARB (Losartan 100 mg) therapy. Her home diuretics remain on hold (Chlorthalidone and Torsemide). 2. Moderate hypercalcemia - calcium level has improved from 15 down to 11.2. Corrected calcium is 12.1. The patient received a dose of IV Pamidronate in the Emergency Room on admission. She is also receiving Calcitonin. I expect her calcium level to normalize over the coming 24 hours. She takes Chlorthalidone and a calcium tablet at home and both are presently held. Her hypercalcemia workup has come back negative so far including SPEP, parathyroid hormone level and vitamin D level. 3. Chronic diastolic congestive heart failure recent echocardiogram done in August shows grade 2 diastolic dysfunction. The patient came in clinically dry and dehydrated. She received IV fluids including a one liter bolus of normal saline yesterday when she was having fever spike and atrial fibrillation with rapid ventricular response. She is tolerating oral intake now. She is off of IV fluids. Her volume status is acceptable. Her home diuretic regimen is Chlorthalidone and Torsemide. Her diuretics remain on hold in view of hypercalcemia. 4. Fever spikes cultures are pending and antibiotics are as per Primary Team. 5. Hypokalemia - potassium supplementation was given. 6. Hypertension complicated by atrial fibrillation with rapid ventricular response Primary Team has adjusted the dose of her calcium channel ricky. She is rate controlled this morning. I made no changes to the antihypertensive. Okay to continue Losartan as renal function has improved back to baseline.
[2021-09-23 20:00] VITALS: BP 154/65
[2021-09-23] MEDS: oxyBUTYnin *DITROPAN XL* 5 MG TABCR PO SCH (21:22)
[2021-09-23] MEDS: MONTELUKAST 10 MG TAB PO SCH (21:23)
[2021-09-23] MEDS: GABAPENTIN 300 MG CAP PO SCH (21:26)
[2021-09-23] MEDS: SERTRALINE HCL 50 MG TAB PO SCH (21:26)
[2021-09-23] MEDS: LOSARTAN 50MG TABLET PO SCH (21:26)
[2021-09-23] MEDS: FLUCONAZOLE 100 MG TAB PO SCH (21:27)
[2021-09-23] MEDS: LORazepam 1 MG TAB PO SCH (21:29)
[2021-09-23] MEDS: PRAMIPEXOLE (MIRAPEX) 0.125 MG TAB PO SCH (21:29)
[2021-09-23] MEDS: LEVEMIR (INSULIN DETEMIR) 1 UNITS/0.01ML SC SCH (21:31)
[2021-09-24 00:03] VITALS: BP 148/67
[2021-09-24 04:20] VITALS: BP 134/65
[2021-09-24 06:28] LABS: HEMATOCRIT 27.8 % (36.0-47.0); HEMOGLOBIN 9.4 g/dl (12.0-15.5); MEAN CORPUSCULAR HEMOGLOBIN 35.1 pg (27.0-33.0); MEAN CORPUSCULAR HGB CONC 33.8 g/dl (32.0-36.5); MEAN CORPUSCULAR VOLUME 103.7 fl (80.0-96.0); PLATELET COUNT, AUTOMATED 114 10^3/uL (150-450); RED BLOOD COUNT 2.68 10^6/uL (4.00-5.40); WHITE BLOOD COUNT 3.8 10^3/uL (4.0-10.0)
[2021-09-24 06:41] LABS: ALBUMIN 2.6 GM/DL (3.2-5.2); BILIRUBIN,TOTAL 0.4 MG/DL (0.2-1.0); CALCIUM LEVEL 10.9 MG/DL (8.8-10.2); CREATININE FOR GFR 1.94 MG/DL (0.55-1.30); GLOMERULAR FILTRATION RATE 27.7 (>45); POTASSIUM SERUM 3.4 MEQ/L (3.5-5.1); TOTAL PROTEIN 5.3 GM/DL (6.4-8.2)
[2021-09-24 06:48] LABS: HEMOGLOBIN A1c 6.9 %
[2021-09-24] MEDS ORDERED: POTASSIUM CHLORIDE 10MEQ SR TABLET PO ONE (07:50)
[2021-09-24 08:00] VITALS: BP 153/70
[2021-09-24] MEDS: cloNIDine 0.05MG 1/2 TABLET PO SCH ×2 (09:08→22:20)
[2021-09-24] MEDS: FOLIC ACID 1 MG TAB PO SCH (09:08)
[2021-09-24] MEDS: ACYCLOVIR 200 MG CAPSULE PO SCH ×2 (09:08→22:19)
[2021-09-24] MEDS: ASPIRIN 81MG ENTERIC TABLET PO SCH (09:09)
[2021-09-24] MEDS: FLECAINIDE 50MG TABLET PO SCH ×2 (09:10→22:19)
[2021-09-24] MEDS: DOCUSATE SODIUM 100MG CAPSULE PO SCH ×2 (09:10→22:20)
[2021-09-24] MEDS: HEPARIN SOD (PORCINE) 5000UNITS/ML 1ML VIAL/SYRINGE SQ SCH ×2 (09:11→21:34)
[2021-09-24] MEDS: SENNA 8.6 MG TAB (SENOKOT) PO SCH ×2 (09:11→22:19)
[2021-09-24] MEDS: diltiaZEM **CD** 180 MG CAP PO SCH (09:11)
[2021-09-24] MEDS: BACTRIM 160MG/800MG DS TAB PO SCH (09:11)
[2021-09-24] MEDS: HYDROXYCHLOROQUINE 200 MG TAB PO SCH (09:12)
[2021-09-24] MEDS: CALCITONIN SALMON (MIACALCIN) 400INTERNATIONAL UNITS/2ML INJ (J0630) SQ SCH ×2 (09:12→21:34)
[2021-09-24] MEDS: BUDESONIDE EC 3 MG CAP (ENTOCORT EC) PO SCH (09:12)
[2021-09-24] MEDS: BENZTROPINE 0.5 MG TAB PO SCH ×2 (09:13→22:19)
[2021-09-24] MEDS: HumaLOG INSULIN (NovoLOG) PER UNIT SC SCH ×4 (09:14→21:00)
[2021-09-24] MEDS: TACROLIMUS 1 MG CAP (J7507) PO SCH ×2 (11:53→22:21)
[2021-09-24 12:00] VITALS: BP 143/65
--- NOTE | 2021-09-24 12:59 | IPNPDOC ---
Date Seen The patient was seen on 09/24/21. Progress Note SUBJECTIVE: Calcium continues to improve slowly. Slightly improved tardive dyskinesia. PT: 3-5 more sessions. Feels improved from admission. She denies chest pain, n/v/d, lightheadedness, shortness of breath. OBJECTIVE: PHYSICAL EXAMINATION: Vital Signs: Please see below GENERAL APPEARANCE: well-nourished and developed / NAD, resting in bed HEENT: EOMI, PERRLA CARDIOVASCULAR: irregularly irregular, No m/r/g, S1S2 +, pulses + in all extremity LUNGS: CTAB on RA, No w/r/r ABDOMEN: obese, distended, soft, nontender, no organomegaly MUSCULOSKELETAL: NCAT / SOLOMON x/ 4 extremities INTEGUMENT: normal skin turgor, no open lesions, no rash NEUROLOGICAL: tardive dyskinesia, abnormal tongue movements - improved some. Speech is clearer today, still restless with lower ext. CN 2-12 grossly intact, speech not dysarthric PSYCHIATRIC: Mood and affect appropriate LABORATORY DATA: Please see below IMAGING: CT head 09/22/21: 1. No acute intracranial pathology. 2. Chronic findings, as above. CT chest: 1. Stable part solid nodule in the left lower lobe unchanged compared to 2020. 2. No further acute mediastinal or pleuroparenchymal process appreciated. Chest xray : No evidence of acute cardiopulmonary pathology. ECG: no acute ST elevations, 1st degree AV block QTC 475 MICROBIOLOGY: COVID neg BCx x 2 NG todate UA, UCx neg ASSESSMENT: Ms. 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 PLAN: Fever 2/2 to unknown etiology- resolved -2/2 to episode of worsening dyskinesia which was reported at same time of fe kristyn? -isolated fever but has been afebrile since -UA/UCx, blood cultures NG to date -CT neg for PNA -Procalcitonin 0.30 and would normally warrant abx if there were suspicion of PNA on CT chest- but there is not. -Started on meropenem and vancomycin initially;however, no s/s of PNA. Stopped. Atrial fibrillation, resolved RVR -Currently controlled with HR 60-70's -Incr diltiazem to 360 mg PO daily on 09/23/21 -Monitor closely with holding parameters, c/w other home medications Acute hypercalcemia, improving slowly -R/o medication related vs. other cause -Per sanitation director at [facility] (Dr. Sher), had SPEP in 02/2020 due to Calcium being high at 11, was neg. All repeats have been normal for their office. -Pamidronate given by admission team -TSH, PTH , SPEP wnl -CT chest shows stable lung nodule but not new -CT abd/pelvis neg -C/w telemetry monitoring, calcitonin, low calcium diet, IVFs -Continue to hold chlorthalidone, torsemide -Nephrology consulted, f/u note Tardive dyskinesia, chronic, r/o 2/2 to medications / hx of restless leg syndrome -Improved with benztropine and decreased dose of pramipexole -Difficult to say if RLS is that or if movement of lower extremities are actually tardive dyskinesia -Case discussed with neurology (Dr. Roche) 09/23/21, whose colleage (Dr. Kay) has seen patient in office in past (not for tardive dyskinesia;however) -Recommendations are to decrease pramipexole to 0.125 nightly, add benztropine 0.5 mg PO BID and can increase over next several days Unsteady gait -PT/OT: 3-5 more sessions -C/w treatment above HTN, controlled -resolved hypertensive crisis -Hx of resistant hypertension, has been getting watched by cardiology closely as o/p -BP slightly elevated still -Has not had chest pain since BP better controlled -Increased diltiazem to 360 mg daily, holding parameters placed -Continuing to hold torsemide, chlorthalidone -Tele, close monitoring -hydralazine PRN for systolic BP > 180 mmHg Hepatocellular Transaminitis likely 2/2 fatty liver -CT abd/pelvis above -Daily CMP, avoid hepatotoxic meds if possible -F/u w PCP for Hep panel and Liver US CKD 4 -Cr baseline is 2.1-2.4 per her nephrology clinic, 1.94 today -stopped IVFs, only on oral intake -Imaging, neg for obstruction -C/w ARB, holding chlorthalidone, torsemide -daily labs IDDM -BS stable -C/w ISS, FS AC/HS, consistent carb diet, insulin glargine 100 U QHS -HbA1C 6.9 -Follows with endocrinology as o/p LLL nodule -F/u o/p, on RA SLE -Not currently in exacerbation -C/w Gabapentin Fibromyalgia / Anxiety, Depression -Gabapentin, Lorazepam, Sertraline, Hydrocodone/Acetaminophen w stool softeners 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 Discussed with neurology, see above. PT: 3-5 more sessions for safe discharge home. Full Code. VS, I&O, 24H, Fishbone Vital Signs/I&O Vital Signs Date Time Temp Pulse Resp B/P (MAP) Pulse Ox O2 Delivery O2 Flow Rate FiO2 09/24/21 12:00 98.0 67 18 143/65 (91) 97 Room Air I&O- Last 24 Hours up to 6 AM 09/24/21 06:00 Intake Total 1105 ml Output Total 1325 ml Balance -220 ml Laboratory Data 24H LABS Laboratory Tests 2 09/23/21 13:15: Bedside Glucose (Misc Panel) 193H 09/23/21 17:35: Bedside Glucose (Misc Panel) 114 09/23/21 20:37: Bedside Glucose (Misc Panel) 165H 09/24/21 05:37: Nucleated Red Blood Cells % (auto) 0.0, Anion Gap 9, Glomerular Filtration Rate 27.7L, Estimated Mean Plasma Glucose 151H, Hemoglobin A1c 6.9, Calcium Level 10.9H, Total Bilirubin 0.4, Aspartate Amino Transf (AST/SGOT) 35, Alanine Aminotransferase (ALT/SGPT) 39, Alkaline Phosphatase 63, Total Protein 5.3L, Albumin 2.6L, Albumin/Globulin Ratio 1.0L 09/24/21 11:21: Bedside Glucose (Misc Panel) 145H CBC/BMP Laboratory Tests 09/24/21 05:37 Microbiology Microbiology 09/23/21 Urine Culture - Final, Complete 09/22/21 Blood Culture - Preliminary, Resulted No growth after 24 hours . All specim... 09/22/21 Blood Culture - Preliminary, Resulted No growth after 24 hours . All specim... Dionne Weber MD Sep 24, 2021 12:59
[2021-09-24 16:00] VITALS: BP 137/76
[2021-09-24 16:09] LABS: Lyme Disease IgG/IgM Antibodie <0.91 ISR (0.00-0.90); Lyme Disease IgM Ab Quantitati <0.80 index (0.00-0.79)
[2021-09-24 18:34] LABS: PERCENT SATURATION 27.9 % (13.2-45.0)
--- NOTE | 2021-09-24 19:09 | IPN ---
NEPHROLOGY PROGRESS NOTE DATE: 09/24/2021 SUBJECTIVE: Ms. Mendosa is seen this morning sitting in the chair. She reports she feels well. She offers no complaints. No shortness of breath. Her renal function has recovered to baseline and her hypercalcemia continues to resolve. Corrected calcium today is 12. The patient denies any nausea, vomiting or diarrhea. Reports the prior heavy sensation "brick in my stomach" has now resolved. PHYSICAL EXAMINATION: VITAL SIGNS: Temperature 98.0, pulse 67, respiratory rate 18, blood pressure 143/65, saturating 97% on room air. INTAKE AND OUTPUT: Intake yesterday was 2.8 liters. Urine output was 1.8 liters, along with a void. Weight in the bed scale today was 88.1 kg, which is unchanged over the course of this admission. GENERAL: Patient is seen sitting in the chair, elderly female, awake, alert, oriented times three, comfortable, in no distress. HEENT: Extraocular muscles are intact. Tongue is moist. Pupils are reactive to light. NECK: Supple. Jugular veins are not elevated. HEART SOUNDS: Irregularly irregular. There is absolutely no peripheral or dependent edema. There is a port in the right chest wall. LUNGS: Clear to auscultation bilaterally. No crackle or rale. She is comfortable on room air. ABDOMEN: Obese, soft and nontender. EXTREMITIES: No clubbing, cyanosis or edema. NEUROLOGIC: Patient is oriented times three. No focal deficit. She has some lip smacking type of behavior. LABORATORY STUDIES: Sodium 140, potassium 3.4, bicarbonate 23, BUN 38, creatinine 1.9, calcium 10.9. Albumin 2.6. Corrected calcium is around 12. Hemoglobin 9.4, platelets 114. The remainder of her hypercalcemia workup is negative except nutritional vitamin D, activated vitamin D, parathyroid hormone. INPATIENT MEDICATIONS: She remains off of intravenous (IV) fluids. She was started on Cogentin 0.5 mg by mouth twice a day today by the primary team. She has received four out of six doses of calcitonin. She got a dose of potassium chloride 30 mEq by mouth times one. The remainder of the medications are unchanged as compared with yesterday. PROBLEMS: 1. Acute kidney injury superimposed on chronic kidney disease (CKD) stage IV (nonoliguric) in the setting of recent dehydration and moderate hypercalcemia. Patient's renal function has recovered back towards baseline. Creatinine is 1.9 on the latest labs. The patient is status post IV fluids. She is tolerating oral intake. Her corrected calcium has improved nicely. Her renal imaging was negative for obstruction. She continues on her home chronic angiotensin receptor ricky (ARB) therapy (losartan 100 mg). Both of her home diuretics have been held over the course of this admission (chlorthalidone and torsemide). 2. Moderate hypercalcemia. Her calcium level continues to improve, 10.9 on the latest labs today. The patient is status post IV pamidronate in the emergency room on admission. She is also receiving calcitonin. Four out of six doses have been given. She takes chlorthalidone and a calcium tablet at home and both are presently held. Her torsemide diuretic is held as well, given that she was clinically dehydrated on admission. The remainder hypercalcemia workup thus far has come back negative. 3. Chronic diastolic congestive heart failure. Recent echocardiogram done one month ago shows grade 2 diastolic dysfunction. Patient came in clinically dehydrated. She received IV fluids initially on this admission and volume status is now acceptable. Her chronic home diuretic regimen is chlorthalidone and torsemide. Both remain held at this time. 4. Hypokalemia. Potassium supplementation was given today. 5. Hypertension complicated by atrial fibrillation with recent rapid ventricular response. Primary team has adjusted her rate controlling medications. I made no changes to her antihypertensives. Okay to continue losartan, as her renal function remains stable at her usual baseline. 6. Anemia. Hemoglobin is 9.4 on the latest labs. We will get iron studies.
[2021-09-24 20:00] VITALS: BP 135/56
[2021-09-24] MEDS: LEVEMIR (INSULIN DETEMIR) 1 UNITS/0.01ML SC SCH (21:33)
[2021-09-24] MEDS: MONTELUKAST 10 MG TAB PO SCH (22:18)
[2021-09-24] MEDS: oxyBUTYnin *DITROPAN XL* 5 MG TABCR PO SCH (22:19)
[2021-09-24] MEDS: SERTRALINE HCL 50 MG TAB PO SCH (22:19)
[2021-09-24] MEDS: GABAPENTIN 300 MG CAP PO SCH (22:19)
[2021-09-24] MEDS: PRAMIPEXOLE (MIRAPEX) 0.125 MG TAB PO SCH (22:19)
[2021-09-24] MEDS: LORazepam 1 MG TAB PO SCH (22:20)
[2021-09-24] MEDS: FLUCONAZOLE 100 MG TAB PO SCH (22:20)
[2021-09-24] MEDS: LOSARTAN 50MG TABLET PO SCH (22:20)
[2021-09-25] VITALS (7 sets, daily range): BP systolic 102–168; BP diastolic 59–80
[2021-09-25 06:53] LABS: HEMATOCRIT 26.8 % (36.0-47.0); HEMOGLOBIN 9.3 g/dl (12.0-15.5); MEAN CORPUSCULAR HEMOGLOBIN 34.7 pg (27.0-33.0); MEAN CORPUSCULAR HGB CONC 34.7 g/dl (32.0-36.5); PLATELET COUNT, AUTOMATED 120 10^3/uL (150-450); RED BLOOD COUNT 2.68 10^6/uL (4.00-5.40); WHITE BLOOD COUNT 4.2 10^3/uL (4.0-10.0)
[2021-09-25 07:29] LABS: ALBUMIN 2.7 GM/DL (3.2-5.2); BILIRUBIN,TOTAL 0.4 MG/DL (0.2-1.0); CALCIUM LEVEL 10.7 MG/DL (8.8-10.2); CREATININE FOR GFR 1.68 MG/DL (0.55-1.30); GLOMERULAR FILTRATION RATE 32.7 (>45); POTASSIUM SERUM 3.4 MEQ/L (3.5-5.1); TOTAL PROTEIN 5.3 GM/DL (6.4-8.2)
[2021-09-25] MEDS ORDERED: POTASSIUM CHLORIDE 10MEQ SR TABLET PO ONE (07:45)
[2021-09-25] MEDS: TACROLIMUS 1 MG CAP (J7507) PO SCH ×2 (08:07→22:13)
[2021-09-25] MEDS: DOCUSATE SODIUM 100MG CAPSULE PO SCH ×2 (08:07→22:15)
[2021-09-25] MEDS: HEPARIN SOD (PORCINE) 5000UNITS/ML 1ML VIAL/SYRINGE SQ SCH ×2 (08:08→22:11)
[2021-09-25] MEDS: HumaLOG INSULIN (NovoLOG) PER UNIT SC SCH ×4 (08:08→21:00)
[2021-09-25] MEDS: BUDESONIDE EC 3 MG CAP (ENTOCORT EC) PO SCH (08:08)
[2021-09-25] MEDS: ASPIRIN 81MG ENTERIC TABLET PO SCH (08:09)
[2021-09-25] MEDS: ACYCLOVIR 200 MG CAPSULE PO SCH ×2 (08:09→22:15)
[2021-09-25] MEDS: cloNIDine 0.05MG 1/2 TABLET PO SCH ×2 (08:10→22:17)
[2021-09-25] MEDS: HYDROXYCHLOROQUINE 200 MG TAB PO SCH (08:10)
[2021-09-25] MEDS: FOLIC ACID 1 MG TAB PO SCH (08:10)
[2021-09-25] MEDS: BENZTROPINE 0.5 MG TAB PO SCH (08:10)
[2021-09-25] MEDS: FLECAINIDE 50MG TABLET PO SCH ×2 (08:10→22:15)
[2021-09-25] MEDS: SENNA 8.6 MG TAB (SENOKOT) PO SCH ×2 (08:10→22:16)
[2021-09-25] MEDS: diltiaZEM **CD** 180 MG CAP PO SCH (08:11)
[2021-09-25 10:58] LABS: URIC ACID 13.1 MG/DL (2.6-6.0)
--- NOTE | 2021-09-25 13:45 | IPN ---
NEPHROLOGY PROGRESS NOTE DATE: 09/25/2021 SUBJECTIVE: Ms. Mendosa is seen this morning on her bedside. She is sitting at the edge of bed. She is feeling well and denies any nausea, vomiting, dyspnea or chest pain. She reports that she could not sleep last night. PHYSICAL EXAMINATION: Temperature 98.7 degrees Fahrenheit, heart rate 90 per minute and respiratory rate 18 per minute. Blood pressure 102/59 mmHg and oxygen saturation 99% on room air. Intake and output record from yesterday show total intake 1460 and output 1100 mL. Head: Atraumatic. Neck: Supple and without JVD or thyroid enlargement. Heart: Sounds are irregular. Lungs: Clear to auscultation. Abdomen: Soft and nontender and bowel sounds are normal. Extremities: Without any cyanosis or clubbing. Neurologically: She is awake, alert and oriented times 3. LABORATORY DATA: Today's labs show: WBC count 4.2, hemoglobin 9.3, hematocrit 26.8 and platelets 120. Sodium 141, potassium 3.4, CO2 25, BUN 32, creatinine is down to 1.68, calcium level is down to 10.7 and uric acid is 13.1. PROBLEMS/PLAN: 1. Acute kidney injury superimposed on chronic kidney disease: Kidney function is gradually improving. Her oral intake is adequate at present and she is not receiving any I.V. fluid. 2. Hypercalcemia: Calcium level is gradually improving and she has been given calcitonin. She had also received a dose of <#######################>2:32) on admission. 3. Hypokalemia: Potassium level is slightly low and she has already received oral potassium supplement. She remains on angiotensin receptor ricky and no diuretic at present. Recheck her electrolytes tomorrow. 4. Atrial fibrillation: Ventricular rate seems to be well controlled now and she remains on flecainide and diltiazem. 5. Hypertension: Blood pressure is also well controlled with clonidine and diltiazem. She is also receiving losartan 100 mg daily. 6. Elevated uric acid: She has a very high uric acid level of 13.1. She does not seem to be clinically dehydrated. She was on chlorthalidone at home which has already been stopped. She has no acute gout symptoms at present and I will recheck her uric acid level again tomorrow. If it is persistently elevated then we will consider starting her on uric acid lowering therapy.
--- NOTE | 2021-09-25 15:16 | IPNPDOC ---
Date Seen The patient was seen on 09/25/21. Progress Note SUBJECTIVE: Calcium lower today, uric acid still elevated but slightly improved. She denies chest pain, n/v/d, lightheadedness, shortness of breath. OBJECTIVE: PHYSICAL EXAMINATION: Vital Signs: Please see below GENERAL APPEARANCE: well-nourished and developed / NAD, resting in bed HEENT: EOMI, PERRLA CARDIOVASCULAR: irregularly irregular, No m/r/g, S1S2 +, pulses + in all extremity LUNGS: CTAB on RA, No w/r/r ABDOMEN: obese, distended, soft, nontender, no organomegaly MUSCULOSKELETAL: NCAT / SOLOMON x/ 4 extremities INTEGUMENT: normal skin turgor, no open lesions, no rash NEUROLOGICAL: tardive dyskinesia, abnormal tongue movements - slowed down and improving but still present. Speech is clearer, lower ext continues to move as prior, restless with lower ext. CN 2-12 grossly intact PSYCHIATRIC: Mood and affect appropriate LABORATORY DATA: Please see below IMAGING: MRI head: 1. Mild hyperintense signal in the white matter most likely to represent mild chronic microvascular disease. 2. No acute intracranial lesion or injury CT head 09/22/21: 1. No acute intracranial pathology. 2. Chronic findings, as above. CT chest: 1. Stable part solid nodule in the left lower lobe unchanged compared to 2019. 2. No further acute mediastinal or pleuroparenchymal process appreciated. Chest x ray : No evidence of acute cardiopulmonary pathology. ECG: no acute ST elevations, 1st degree AV block QTC 475 MICROBIOLOGY: COVID neg BCx x 2 NG to date UA, UCx neg ASSESSMENT: Ms. 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 PLAN: Acute hypercalcemia, improving slowly -R/o medication related vs. 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 Sher), had SPEP in 02/2020 due to Calcium being high at 11, was neg. All repeats have been normal for their office. -Pamidronate given by admission team, completed 6 doses of calcitonin (last dose 09/24/21), stopped IVFs -TSH, PTH , SPEP wnl -CT chest shows stable lung nodule but not new -CT abd/pelvis neg -C/w telemetry monitoring, low calcium diet -Continue to hold diuretics -Nephrology following Tardive dyskinesia, chronic, r/o 2/2 to medications / hx of restless leg syndrome -slightly improved with benztropine and decreased dose of pramipexole ;however, still present -Difficult to say if RLS is that or if movement of lower extremities are act ually tardive dyskinesia -Case discussed with neurology (Dr. Roche) 09/23/21, whose colleague (Dr. Kay) has seen patient in office in past (not for tardive dyskinesia;however) -Recommendations are to decrease pramipexole to 0.125 nightly, incr benztropine to 1 mg PO BID Hyperuricemia possibly medication related (chlorthalidone, torsemide) -Chlorthalidone, torsemide held since admission -Uric acid decreased some, currently 13 from 15 -F/u 09/26/21, may need uric acid lowering therapy Unsteady gait -PT/OT: 3-5 more sessions -C/w treatment above HTN, controlled -resolved hypertensive crisis -Hx of resistant hypertension, has been getting watched by cardiology closely as o/p -BP better controlled -Has not had chest pain since BP better controlled -Increased diltiazem to 360 mg 09/24/21, holding parameters placed -Continuing to hold torsemide, chlorthalidone -Tele, close monitoring -hydralazine PRN for systolic BP > 180 mmHg Fever 2/2 to unknown etiology, isolated (09/22/21) -2/2 to episode of worsening dyskinesia which was reported at same time of fever? -isolated fever but has been afebrile since -UA/UCx, blood cultures NG to date -CT neg for PNA -Procalcitonin 0.30 and would normally warrant abx if there were suspicion of PNA on CT chest- but there is not. -Started on meropenem and vancomycin initially;however, no s/s of PNA. Stopped. Atrial fibrillation -Currently controlled with HR 60-70's -C/w diltiazem to 360 mg PO daily on 09/23/21 -Monitor closely with holding parameters, c/w other home medications CKD 4 -Cr baseline is 2.1-2.4 per her nephrology clinic, 1.68 today -stopped IVFs, only on oral intake -Imaging, neg for obstruction -C/w ARB. 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 Discussed with neurology, see above. Nephrology following. PT: 3-5 more sessions for safe discharge home. Full Code. VS, I&O, 24H, Fishbone Vital Signs/I&O Vital Signs Date Time Temp Pulse Resp B/P (MAP) Pulse Ox O2 Delivery O2 Flow Rate FiO2 09/25/21 14:00 97.6 59 13 164/80 (108) 96 Room Air I&O- Last 24 Hours up to 6 AM 09/25/21 05:59 Intake Total 1560 ml Output Total 1250 ml Balance 310 ml Laboratory Data 24H LABS Laboratory Tests 2 09/24/21 17:44: Bedside Glucose (Misc Panel) 127H 09/24/21 17:50: Iron Level 64, Total Iron Binding Capacity 229L, Transferrin % Saturation 27.9, Ferritin 356H 09/24/21 21:32: Bedside Glucose (Misc Panel) 138H 09/24/21 23:54: Vancomycin Level Trough 8.8L 09/25/21 06:39: Nucleated Red Blood Cells % (auto) 0.0, Anion Gap 9, Glomerular Filtration Rate 32.7L, Uric Acid 13.1H, Calcium Level 10.7H, Total Bilirubin 0.4, Aspartate Amino Transf (AST/SGOT) 34, Alanine Aminotransferase (ALT/SGPT) 43, Alkaline Phosphatase 63, Total Protein 5.3L, Albumin 2.7L, Albumin/Globulin Ratio 1.0L 09/25/21 11:45: Bedside Glucose (Misc Panel) 160H CBC/BMP Laboratory Tests 09/25/21 06:39 Microbiology Microbiology 09/23/21 Urine Culture - Final, Complete 09/22/21 Blood Culture - Preliminary, Resulted No Growth after 48 hours. All Specime... 09/22/21 Blood Culture - Preliminary, Resulted No Growth after 48 hours. All Specime... Dionne Weber MD Sep 25, 2021 15:16
[2021-09-25] MEDS: LEVEMIR (INSULIN DETEMIR) 1 UNITS/0.01ML SC SCH (22:11)
[2021-09-25] MEDS: oxyBUTYnin *DITROPAN XL* 5 MG TABCR PO SCH (22:14)
[2021-09-25] MEDS: FLUCONAZOLE 100 MG TAB PO SCH (22:14)
[2021-09-25] MEDS: LOSARTAN 50MG TABLET PO SCH (22:16)
[2021-09-25] MEDS: SERTRALINE HCL 50 MG TAB PO SCH (22:16)
[2021-09-25] MEDS: ACETAMINOPHEN 650MG ER TAB (TYLENOL ARTHRITIS) PO PRN (22:16)
[2021-09-25] MEDS: PRAMIPEXOLE (MIRAPEX) 0.125 MG TAB PO SCH (22:16)
[2021-09-25] MEDS: MONTELUKAST 10 MG TAB PO SCH (22:17)
[2021-09-25] MEDS: LORazepam 1 MG TAB PO SCH (22:17)
[2021-09-25] MEDS: BENZTROPINE 1 MG TAB PO SCH (22:17)
[2021-09-25] MEDS: GABAPENTIN 300 MG CAP PO SCH (22:17)
[2021-09-26 06:00] VITALS: BP 125/61
[2021-09-26 06:12] LABS: HEMATOCRIT 26.7 % (36.0-47.0); HEMOGLOBIN 9.1 g/dl (12.0-15.5); MEAN CORPUSCULAR HEMOGLOBIN 34.2 pg (27.0-33.0); MEAN CORPUSCULAR HGB CONC 34.1 g/dl (32.0-36.5); MEAN CORPUSCULAR VOLUME 100.4 fl (80.0-96.0); PLATELET COUNT, AUTOMATED 133 10^3/uL (150-450); RED BLOOD COUNT 2.66 10^6/uL (4.00-5.40); WHITE BLOOD COUNT 4.1 10^3/uL (4.0-10.0)
[2021-09-26 06:48] LABS: ALBUMIN 2.7 GM/DL (3.2-5.2); BILIRUBIN,TOTAL 0.3 MG/DL (0.2-1.0); CALCIUM LEVEL 10.4 MG/DL (8.8-10.2); CREATININE FOR GFR 1.89 MG/DL (0.55-1.30); GLOMERULAR FILTRATION RATE 28.5 (>45); POTASSIUM SERUM 4.1 MEQ/L (3.5-5.1); TOTAL PROTEIN 5.4 GM/DL (6.4-8.2); URIC ACID 12.4 MG/DL (2.6-6.0)
[2021-09-26] MEDS: HEPARIN SOD (PORCINE) 5000UNITS/ML 1ML VIAL/SYRINGE SQ SCH ×2 (08:21→22:01)
[2021-09-26] MEDS: DOCUSATE SODIUM 100MG CAPSULE PO SCH ×2 (08:22→22:03)
[2021-09-26] MEDS: HumaLOG INSULIN (NovoLOG) PER UNIT SC SCH ×4 (08:22→21:00)
[2021-09-26] MEDS: TACROLIMUS 1 MG CAP (J7507) PO SCH ×2 (08:23→22:05)
[2021-09-26] MEDS: BENZTROPINE 1 MG TAB PO SCH ×2 (08:24→22:04)
[2021-09-26] MEDS: FLECAINIDE 50MG TABLET PO SCH ×2 (08:24→22:05)
[2021-09-26] MEDS: HYDROXYCHLOROQUINE 200 MG TAB PO SCH (08:24)
[2021-09-26] MEDS: ACYCLOVIR 200 MG CAPSULE PO SCH ×2 (08:25→22:04)
[2021-09-26] MEDS: FOLIC ACID 1 MG TAB PO SCH (08:25)
[2021-09-26] MEDS: BUDESONIDE EC 3 MG CAP (ENTOCORT EC) PO SCH (08:25)
[2021-09-26] MEDS: diltiaZEM **CD** 180 MG CAP PO SCH (08:26)
[2021-09-26] MEDS: cloNIDine 0.05MG 1/2 TABLET PO SCH ×2 (08:27→22:03)
[2021-09-26] MEDS: ASPIRIN 81MG ENTERIC TABLET PO SCH (08:27)
[2021-09-26] MEDS: SENNA 8.6 MG TAB (SENOKOT) PO SCH ×2 (08:27→22:03)
[2021-09-26] MEDS ORDERED: allopurinoL 100 MG TAB PO ONE (10:00)
--- NOTE | 2021-09-26 13:40 | IPNPDOC ---
Date Seen The patient was seen on 09/26/21. Progress Note SUBJECTIVE: No events overnight. Feels her tardive dyskinesia improved slightly. She denies chest pain, n/v/d, lightheadedness, shortness of breath. OBJECTIVE: PHYSICAL EXAMINATION: Vital Signs: Please see below GENERAL APPEARANCE: well-nourished and developed / NAD, resting in bed HEENT: EOMI, PERRLA CARDIOVASCULAR: irregularly irregular, No m/r/g, S1S2 +, pulses + in all extremity LUNGS: CTAB on RA, No w/r/r ABDOMEN: obese, distended, soft, nontender, no organomegaly MUSCULOSKELETAL: NCAT / SOLOMON x/ 4 extremities INTEGUMENT: normal skin turgor, no open lesions, no rash NEUROLOGICAL: tardive dyskinesia, abnormal tongue movements still present. Speech is clear, lower ext restless with lower ext. CN 2-12 grossly intact PSYCHIATRIC: Mood and affect appropriate LABORATORY DATA: Please see below IMAGING: MRI head: 1. Mild hyperintense signal in the white matter most likely to represent mild chronic microvascular disease. 2. No acute intracranial lesion or injury CT head 09/22/21: 1. No acute intracranial pathology. 2. Chronic findings, as above. CT chest: 1. Stable part solid nodule in the left lower lobe unchanged compared to 2019. 2. No further acute mediastinal or pleuroparenchymal process appreciated. Chest x ray : No evidence of acute cardiopulmonary pathology. ECG: no acute ST elevations, 1st degree AV block QTC 475 MICROBIOLOGY: COVID neg BCx x 2 NG to date UA, UCx neg ASSESSMENT: Ms. 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 PLAN: Acute hypercalcemia,continues to improve slowly -R/o medication related vs. 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 Sher), had SPEP in 02/2020 due to Calcium being high at 11, was neg. All repeats have been normal for their office. -Pamidronate given by admission team, completed 6 doses of calcitonin (last dose 09/24/21), stopped IVFs -TSH, PTH , SPEP wnl -CT chest shows stable lung nodule but not new -CT abd/pelvis neg -C/w telemetry monitoring, low calcium diet -Continue to hold diuretics -Nephrology following Tardive dyskinesia, chronic, r/o 2/2 to medications / hx of restless leg syndrome -Minimally improved with lowest dose benztropine and decreased dose of pramipexole ;however, still present -Difficult to say if RLS is that or if movement of lower extremities are actually tardive dyskinesia -Case discussed with neurology (Dr. Roche) 09/23/21, whose colleague (Dr. Kay) has seen patient in office in past (not for tardive dyskinesia;however) -C/w decreased dose of pramipexole to 0.125 nightly, benztropine to 1 mg PO BID. If this dose is still not enough, can increase further. Hyperuricemia possibly medication related (chlorthalidone, torsemide) -Chlorthalidone, torsemide held since admission -Uric acid 15 on admission, today 12.4 -Started on allopurinol Unsteady gait, complicated by abnormal movements/ restless leg syndrome above -PT/OT: 3-5 more sessions -C/w treatment above HTN, controlled -resolved hypertensive crisis -Hx of resistant hypertension, has been getting watched by cardiology closely as o/p -BP better controlled -Has not had chest pain since BP better controlled -Increased diltiazem to 360 mg 09/24/21, holding parameters placed -Continuing to hold torsemide, chlorthalidone -Tele, close monitoring -hydralazine PRN for systolic BP > 180 mmHg Fever 2/2 to unknown etiology, isolated (09/22/21) -2/2 to episode of worsening dyskinesia which was reported at same time of fever? -isolated fever but has been afebrile since -UA/UCx, blood cultures NG to date -CT neg for PNA -Procalcitonin 0.30 and would normally warrant abx if there were suspicion of PNA on CT chest- but there is not. -Started on meropenem and vancomycin initially;however, no s/s of PNA. Stopped. Atrial fibrillation -Currently controlled with HR 60-70's -C/w diltiazem to 360 mg PO daily on 09/23/21 -Monitor closely with holding parameters, c/w other home medications CKD 4 -Cr baseline is 2.1-2.4 per her nephrology clinic, 1.89 today -stopped IVFs, only on oral intake -Imaging, neg for obstruction -C/w ARB. 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 Discussed with neurology, see above. Nephrology following. PT: 3-5 more sessions for safe discharge home. Full Code. VS, I&O, 24H, Fishbone Vital Signs/I&O Vital Signs Date Time Temp Pulse Resp B/P (MAP) Pulse Ox O2 Delivery O2 Flow Rate FiO2 09/26/21 08:26 63 125/61 09/26/21 06:00 97.9 16 98 Room Air I&O- Last 24 Hours up to 6 AM 09/26/21 06:00 Intake Total 670 ml Output Total 0 ml Balance 670 ml Laboratory Data 24H LABS Laboratory Tests 2 09/25/21 16:28: Bedside Glucose (Misc Panel) 134H 09/25/21 20:48: Bedside Glucose (Misc Panel) 180H 09/26/21 05:45: Nucleated Red Blood Cells % (auto) 0.0, Anion Gap 8, Glomerular Filtration Rate 28.5L, Uric Acid 12.4H, Calcium Level 10.4H, Total Bilirubin 0.3, Aspartate Amino Transf (AST/SGOT) 36, Alanine Aminotransferase (ALT/SGPT) 48, Alkaline Phosphatase 66, Total Protein 5.4L, Albumin 2.7L, Albumin/Globulin Ratio 1.0L 09/26/21 11:49: Bedside Glucose (Misc Panel) 168H CBC/BMP Laboratory Tests 09/26/21 05:45 Microbiology Microbiology 09/23/21 Urine Culture - Final, Complete 09/22/21 Blood Culture - Preliminary, Resulted No Growth after 72 hours. All specime... 09/22/21 Blood Culture - Preliminary, Resulted No Growth after 72 hours. All specime... Dionne Weber MD Sep 26, 2021 13:40
[2021-09-26 14:00] VITALS: BP 148/76
[2021-09-26] MEDS: ACETAMINOPHEN 650MG ER TAB (TYLENOL ARTHRITIS) PO PRN ×2 (14:01→22:03)
--- NOTE | 2021-09-26 17:51 | IPN ---
NEPHROLOGY PROGRESS NOTE DATE: 09/26/2021 SUBJECTIVE: Mrs. Mendosa was seen this morning at her bedside. She is sitting in the chair at the time of my visit. She was admitted with severe hypercalcemia in the setting of chronic kidney disease, status post stem cell transplant and history of graft versus host disease with primary myelofibrosis. Her hypercalcemia is gradually improving. She also had worsening kidney function which is also improved since admission. Her diuretics have been on hold. Yesterday she was noticed to have a very high uric acid level of 13.1. She does tell me that at some point she was taking Allopurinol, however then she stopped it. She denies any acute gout symptoms recently. OBJECTIVE: PHYSICAL EXAMINATION: VITAL SIGNS: Temperature is 97.9 degrees Fahrenheit, heart rate 64 per minute and respiratory rate 16 per minute. Blood pressure 125/60 mm of mercury and oxygen saturation is 98% on room air. HEENT: Her head is atraumatic. Eyes, ears, nose and throat are unremarkable. NECK: Supple and JVD is not elevated while sitting upright in the chair. HEART: Irregular in rhythm. LUNGS: Clear to auscultation. ABDOMEN: Soft and nontender and bowel sounds are normal. EXTREMITIES: Without any cyanosis or clubbing. She had no peripheral edema at present. NEUROLOGICAL: She is at her baseline mentation without any focal deficits. LABORATORY STUDIES: Today's labs show sodium of 141, potassium 4.1, CO2 24, BUN 39 and creatinine 1.89. Glucose 144, calcium is down to 10.4 and uric acid level is 12.4 today. Her total protein is 5.4 and albumin is 2.7. Hemoglobin 9.1 and hematocrit 26.7. PROBLEMS: 1. Acute kidney injury superimposed on chronic kidney disease no significant change in kidney function. Her GFR has been between 27 and 32 over the last few days. On admission her GFR was as low as 18.6. At present her kidney function is stable and we will keep her off diuretics. 2. Hypercalcemia - calcium level is gradually improving though still not normal. She remains off diuretics and not on any calcium supplement. 3. Hyperuricemia - The patient has a significantly elevated uric acid level and remains at very high risk for acute gout. I am starting her on Allopurinol with the first dose of 50 mg today and then she will go up to 100 mg daily. I would like to see her uric acid level down to close to 6.0. 4. Anemia she has a history of myelodysplasia and myelofibrosis. Anemia is stable at present and she does not need any urgent intervention. 5. Thrombocytopenia her platelets are also low but stable. There is no active bleeding. No intervention is needed at present. 6. Hypokalemia - potassium level has improved and corrected with potassium supplement. 7. General weakness and deconditioning - The patient remains deconditioned and is likely to require rehab prior to discharge. We will also need to figure out if she will need to go back on diuretics, but so far she is doing well.
[2021-09-26 22:00] VITALS: BP 145/75
[2021-09-26] MEDS: oxyBUTYnin *DITROPAN XL* 5 MG TABCR PO SCH (22:02)
[2021-09-26] MEDS: LEVEMIR (INSULIN DETEMIR) 1 UNITS/0.01ML SC SCH (22:02)
[2021-09-26] MEDS: PRAMIPEXOLE (MIRAPEX) 0.125 MG TAB PO SCH (22:02)
[2021-09-26] MEDS: GABAPENTIN 300 MG CAP PO SCH (22:03)
[2021-09-26] MEDS: MONTELUKAST 10 MG TAB PO SCH (22:04)
[2021-09-26] MEDS: FLUCONAZOLE 100 MG TAB PO SCH (22:04)
[2021-09-26] MEDS: SERTRALINE HCL 50 MG TAB PO SCH (22:04)
[2021-09-26] MEDS: LORazepam 1 MG TAB PO SCH (22:05)
[2021-09-26] MEDS: LOSARTAN 50MG TABLET PO SCH (22:05)
[2021-09-27 06:00] VITALS: BP 125/59
[2021-09-27 06:24] LABS: HEMATOCRIT 27.1 % (36.0-47.0); HEMOGLOBIN 9.3 g/dl (12.0-15.5); MEAN CORPUSCULAR HEMOGLOBIN 34.8 pg (27.0-33.0); MEAN CORPUSCULAR HGB CONC 34.3 g/dl (32.0-36.5); MEAN CORPUSCULAR VOLUME 101.5 fl (80.0-96.0); PLATELET COUNT, AUTOMATED 140 10^3/uL (150-450); RED BLOOD COUNT 2.67 10^6/uL (4.00-5.40); WHITE BLOOD COUNT 4.3 10^3/uL (4.0-10.0)
[2021-09-27 06:47] LABS: ALBUMIN 2.8 GM/DL (3.2-5.2); BILIRUBIN,TOTAL 0.3 MG/DL (0.2-1.0); CALCIUM LEVEL 9.7 MG/DL (8.8-10.2); CREATININE FOR GFR 1.88 MG/DL (0.55-1.30); GLOMERULAR FILTRATION RATE 28.7 (>45); TOTAL PROTEIN 5.4 GM/DL (6.4-8.2)
[2021-09-27] MEDS ORDERED: allopurinoL 100 MG TAB PO SCH (09:00)
[2021-09-27] MEDS: TACROLIMUS 1 MG CAP (J7507) PO SCH (09:11)
[2021-09-27 09:14] VITALS: BP 114/75
[2021-09-27] MEDS: ASPIRIN 81MG ENTERIC TABLET PO SCH (09:14)
[2021-09-27] MEDS: diltiaZEM **CD** 180 MG CAP PO SCH (09:14)
[2021-09-27] MEDS: FOLIC ACID 1 MG TAB PO SCH (09:14)
[2021-09-27] MEDS: DOCUSATE SODIUM 100MG CAPSULE PO SCH (09:14)
[2021-09-27] MEDS: BACTRIM 160MG/800MG DS TAB PO SCH (09:14)
[2021-09-27] MEDS: HYDROXYCHLOROQUINE 200 MG TAB PO SCH (09:15)
[2021-09-27] MEDS: BENZTROPINE 1 MG TAB PO SCH (09:15)
[2021-09-27] MEDS: FLECAINIDE 50MG TABLET PO SCH (09:15)
[2021-09-27] MEDS: SENNA 8.6 MG TAB (SENOKOT) PO SCH (09:15)
[2021-09-27] MEDS: ACYCLOVIR 200 MG CAPSULE PO SCH (09:15)
[2021-09-27] MEDS: cloNIDine 0.05MG 1/2 TABLET PO SCH (09:15)
[2021-09-27] MEDS: BUDESONIDE EC 3 MG CAP (ENTOCORT EC) PO SCH (09:16)
[2021-09-27] MEDS: HumaLOG INSULIN (NovoLOG) PER UNIT SC SCH ×2 (09:16→12:48)
[2021-09-27] MEDS: HEPARIN SOD (PORCINE) 5000UNITS/ML 1ML VIAL/SYRINGE SQ SCH (09:17)
[2021-09-27] MEDS ORDERED: CARD180C4 PO (10:15)
[2021-09-27] MEDS ORDERED: BENZ-52 PO (10:15)
[2021-09-27] MEDS ORDERED: ALLO10TA PO (10:15)
[2021-09-27] MEDS ORDERED: MIRA0.12 PO (10:15)
--- NOTE | 2021-09-27 10:48 | IPNPDOC ---
Subjective Date Seen The patient was seen on 09/27/21. Subjective Chief Complaint/HPI SUBJECTIVE: Pt does not report any acute complaints. She's in good spirits. Her Ca 2 level within normal limits now. She's clinically euvolemic and Kidney function has been stable. She's following up with nephrology in [place] first week of October. OBJECTIVE: VITAL SIGNS: See below In and outs 1970ml in 0 ml out 1970 net pos GEN: good spirited and pleasant, look dehydrated, but well nourished. AAOx3 HEENT: Her head is atraumatic. Eyes, ears, nose and throat are unremarkable. NECK: Supple and JVD is not elevated while at 45 deg ankle in bed HEART: Irregular in rhythm. LUNGS: Clear to auscultation. ABDOMEN: Soft, obese and nontender and bowel sounds are normal. EXTREMITIES: Without any cyanosis or clubbing. She had no peripheral edema. NEUROLOGICAL: She is at her baseline mentation without any focal deficits. IMPRESSION AND PLAN: 1. Acute kidney injury superimposed on chronic kidney disease. No significant change in kidney function. Her GFR has been between 27 and 32 over the last few days. 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 2. Hypercalcemia. Resolved. Patient remains off of her Ca supplements and her diuretics. Will need to D/C on her discharge from hospital as well. 3. Hyperuricemia. The patient has a significantly elevated uric acid level and remains at very high risk for acute gout. She was started on Allopurinol. Optimally, would like her uric acid level to come close to 6.0. 4. Anemia. she has a history of myelodysplasia and myelofibrosis. Anemia is stable at present and she does not need any urgent intervention. 5. Thrombocytopenia. Her platelets are also low but stable. There is no active bleeding. No intervention is needed at present. 6. Hypokalemia. Resolved- Potassium has been corrected with repletion. VS, I&O, 24H, Fishbone Vital Signs/I&O Vital Signs Date Time Temp Pulse Resp B/P (MAP) Pulse Ox O2 Delivery O2 Flow Rate FiO2 09/27/21 09:14 65 114/75 09/27/21 06:00 98.0 20 98 Room Air I&O- Last 24 Hours up to 6 AM 09/27/21 06:00 Intake Total 1670 ml Balance 1670 ml Laboratory Data 24H LABS Laboratory Tests 2 09/26/21 11:49: Bedside Glucose (Misc Panel) 168H 09/26/21 16:42: Bedside Glucose (Misc Panel) 126H 09/26/21 20:48: Bedside Glucose (Misc Panel) 138H 09/27/21 06:00: Nucleated Red Blood Cells % (auto) 0.0, Anion Gap 8, Glomerular Filtration Rate 28.7L, Calcium Level 9.7, Total Bilirubin 0.3, Aspartate Amino Transf (AST/SGOT) 49H, Alanine Aminotransferase (ALT/SGPT) 62, Alkaline Phosphatase 72, Total Protein 5.4L, Albumin 2.8L, Albumin/Globulin Ratio 1.1L CBC/BMP Laboratory Tests 09/27/21 06:00 Microbiology Microbiology 09/23/21 Urine Culture - Final, Complete 09/22/21 Blood Culture - Preliminary, Resulted No Growth after 72 hours. All specime... 09/22/21 Blood Culture - Preliminary, Resulted No Growth after 72 hours. All specime... GME ATTESTATION GME ATTESTATION My faculty preceptor for this patient encounter was physically present during the encounter and was fully available. All aspects of the patient interview, examination, medical decision making process, and medical care plan development were reviewed and approved by the faculty preceptor. The faculty preceptor is aware and concurs with the plan as stated in the body of this note and will attest to such by his/her cosignature. Chilango Wick DO Sep 27, 2021 10:48
--- NOTE | 2021-09-27 21:04 | DS.PDOC ---
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 RLS DISCHARGE DIAGNOSES: Acute hypercalcemia likely medication related Tardive dyskinesia, chronic, r/o 2/2 to medications Hx of restless leg syndrome Hyperuricemia possibly medication related (chlorthalidone, torsemide) Unsteady gait, complicated by abnormal movements/ restless leg syndrome above HTN, controlled Fever 2/2 to unknown etiology, isolated (09/22/21) Atrial fibrillation CKD 4 Hepatocellular Transaminitis likely 2/2 fatty liver IDDM LLL nodule SLE Fibromyalgia Anxiety, Depression 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 HISTORY OF PRESENT ILLNESS: is a 66 yr old F who was sent by her Oncology team (at [facility]) to the hospital for evaluation of a serum calcium that was 15. She admits to having a poor appetite, feeling like there is a brick in her stomach, having neck pain and shoulder pain, feeling dizzy, feeling tired and falling asleep easily. In addition to sleeping at night she having been having 5H naps. HOSPITAL COURSE: The following issues were managed and treated while admitted: Acute hypercalcemia likely 2/2 to medication vs. other cause -Per nanny babysitter at [facility] (Dr. Sher), had SPEP in 02/2020 due to Calcium being high at 11, was neg. All repeats have been normal for their office. -Pamidronate given by admission team, completed 6 doses of calcitonin (last dose 09/24/21), stopped IVFs -TSH, PTH , SPEP wnl -CT chest shows stable lung nodule but not new -CT abd/pelvis neg -C/w telemetry monitoring, low calcium diet -Nephrology following o/p Tardive dyskinesia, chronic, r/o 2/2 to medications / hx of restless leg syndrome -Minimally improved with lowest dose benztropine and decreased dose of pramipexole ;however, still present -Difficult to say if RLS is that or if movement of lower extremities are actually tardive dyskinesia -Case discussed with neurology (Dr. Roche) 09/23/21, whose colleague (Dr. Kay) has seen patient in office in past (not for tardive dyskinesia;however) -C/w decreased dose of pramipexole to 0.125 nightly, benztropine to 1 mg PO BID. If this dose is still not enough, can increase further o/p. Hyperuricemia possibly medication related (chlorthalidone, torsemide) -Chlorthalidone, torsemide held since admission -Uric acid 15 on admission, today 12. -C/w allopurinol Unsteady gait, complicated by abnormal movements/ restless leg syndrome above -PT/OT o/p HTN, controlled -resolved hypertensive crisis -Hx of resistant hypertension, has been getting watched by cardiology closely as o/p -BP better controlled -Has not had chest pain since BP better controlled -Increased diltiazem to 360 mg 09/24/21, holding parameters placed -Continuing to hold torsemide, chlorthalidone Fever 2/2 to unknown etiology, isolated (09/22/21) -2/2 to episode of worsening dyskinesia which was reported at same time of fever? -isolated fever but has been afebrile since -UA/UCx, blood cultures NG to date -CT neg for PNA -Procalcitonin 0.30 and would normally warrant abx if there were suspicion of PNA on CT chest- but there is not. -Started on meropenem and vancomycin initially;however, no s/s of PNA. Stopped. Atrial fibrillation -Currently controlled with HR 60-70's -C/w diltiazem to 360 mg PO daily on 09/23/21 CKD 4 -Cr baseline is 2.1-2.4 per her nephrology clinic, 1.88 today -stopped IVFs, only on oral intake -Imaging, neg for obstruction -C/w ARB. 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 ALLERGIES: Please see below. PHYSICAL EXAMINATION ON DISCHARGE: Vital Signs: Please see below GENERAL APPEARANCE: well-nourished and developed / NAD, resting in bed HEENT: EOMI, PERRLA CARDIOVASCULAR: irregularly irregular, No m/r/g, S1S2 +, pulses + in all extremity LUNGS: CTAB on RA, No w/r/r ABDOMEN: obese, distended, soft, nontender, no organomegaly MUSCULOSKELETAL: NCAT / SOLOMON x/ 4 extremities INTEGUMENT: normal skin turgor, no open lesions, no rash NEUROLOGICAL: tardive dyskinesia, abnormal tongue movements still present but much milder. Speech is clear, lower ext restless with lower ext. CN 2-12 grossly intact PSYCHIATRIC: Mood and affect appropriate LABORATORY DATA: Please see below IMAGING: MRI head: 1. Mild hyperintense signal in the white matter most likely to represent mild chronic microvascular disease. 2. No acute intracranial lesion or injury CT head 09/22/21: 1. No acute intracranial pathology. 2. Chronic findings, as above. CT chest: 1. Stable part solid nodule in the left lower lobe unchanged compared to 2019. 2. No further acute mediastinal or pleuroparenchymal process appreciated. Chest x ray : No evidence of acute cardiopulmonary pathology. ECG: no acute ST elevations, 1st degree AV block QTC 475 MICROBIOLOGY: COVID neg BCx x 2 NG to date UA, UCx neg PROGNOSIS: Good ACTIVITY: As tolerated DIET: 2 gm sodium diet DISPOSITION: 06 Home Health Service. DISCHARGE INSTRUCTIONS / ITEMS TO FOLLOWUP ON ON OUTPATIENT 1. Follow up with nephrology as already scheduled after discharge. 2. Please note the medication changes we have made. 3. We recommend follow up with neurology as outpatient. Please call their office to make a follow up. Case was discussed with Dr. Hanks this admission. Encouraged to hydrate well throughout the day, every 3 hours. DISCHARGE CONDITION: Stable TIME SPENT ON DISCHARGE: 35 minutes. Vital Signs/I&Os Vital Signs Date Time Temp Pulse Resp B/P (MAP) Pulse Ox O2 Delivery O2 Flow Rate FiO2 09/27/21 09:14 65 114/75 09/27/21 06:00 98.0 20 98 Room Air I&O- Last 24 Hours up to 6 AM 09/27/21 06:00 Intake Total 1670 ml Balance 1670 ml Laboratory Data Labs 24H Laboratory Tests 2 09/27/21 06:00: Nucleated Red Blood Cells % (auto) 0.0, Anion Gap 8, Glomerular Filtration Rate 28.7L, Calcium Level 9.7, Total Bilirubin 0.3, Aspartate Amino Transf (AST/SGOT) 49H, Alanine Aminotransferase (ALT/SGPT) 62, Alkaline Phosphatase 72, Total Protein 5.4L, Albumin 2.8L, Albumin/Globulin Ratio 1.1L 09/27/21 11:36: Bedside Glucose (Misc Panel) 174H CBC/BMP Laboratory Tests 09/27/21 06:00 FSBS Laboratory Tests Test 09/27/21 11:36 Range/Units Bedside Glucose (Misc Panel) 174 80-115 MG/DL Microbiology Microbiology 09/23/21 Urine Culture - Final, Complete 09/22/21 Blood Culture - Preliminary, Resulted No Growth after 72 hours. All specime... 09/22/21 Blood Culture - Preliminary, Resulted No Growth after 72 hours. All specime... Discharge Medications Scheduled Acyclovir (Acyclovir) 400 Mg Tab, 400 MG PO BID, (Reported) Allopurinol (Allopurinol) 100 Mg Tablet, 100 MG PO DAILY Aspirin (Aspirin EC) 81 Mg Tablet.dr, 81 MG PO DAILY, (Reported) Benztropine Mesylate (Benztropine Mesylate) 1 Mg Tablet, 1 MG PO BID Budesonide (Budesonide EC) 3 Mg Cap, 3 MG PO DAILY, (Reported) Diltiazem Hcl (Cardizem Cd) 180 Mg Cap.er.24h, 360 MG PO DAILY Docusate Sodium (Colace) 100 Mg Capsule, 200 MG PO BID, (Reported) Flecainide Acetate (Flecainide Acetate) 50 Mg Tablet, 50 MG PO BID, (Reported) Fluconazole (Diflucan) 200 Mg Tab, 200 MG PO QHS, (Reported) Folic Acid (Folic Acid) 1 Mg Tablet, 1 MG PO DAILY, (Reported) Gabapentin (Gabapentin) 300 Mg Capsule, 300 MG PO QHS, (Reported) Hydroxychloroquine Sulfate (Hydroxychloroquine Sulfate) 200 Mg Tablet, 200 MG PO DAILY, (Reported) Insulin Glargine,Hum.rec.anlog (Lantus Solostar) 100 Unit/1 Ml Insuln.pen, 24 UNITS SC QHS, (Reported) Insulin Lispro (Admelog Solostar) 100 Unit/1 Ml Insuln.pen, 1 DOSE SC AC, (Reported) PER SLIDING SCALE Lorazepam (Lorazepam) 1 Mg Tablet, 1 MG PO QHS, (Reported) Losartan Potassium (Losartan Potassium) 100 Mg Tablet, 100 MG PO QHS, (Reported) Montelukast Sodium (Montelukast Sodium) 10 Mg Tablet, 10 MG PO QHS, (Reported) Oxybutynin Chloride (Oxybutynin Chloride ER) 15 Mg Tab.er.24, 15 MG PO QHS, (Reported) Pramipexole Di-HCl (Mirapex) 0.125 Mg Tablet, 0.125 MG PO QHS Sennosides (Senna) 8.6 Mg Tablet, 1 TAB PO BID, (Reported) Sertraline Hcl (Sertraline HCl) 50 Mg Tablet, 50 MG PO QHS, (Reported) Sulfamethoxazole/Trimethoprim (Bactrim Ds Tablet) 1 Each Tablet, 1 TAB PO 3XW, (Reported) MON, WED, FRI Tacrolimus (Tacrolimus) 1 Mg Capsule, 1 MG PO BID, (Reported) Scheduled PRN Acetaminophen (Tylenol Arthritis) 650 Mg Tablet.er, 650 MG PO Q8H PRN for MILD PAIN (PS 1-4), (Reported) Clotrimazole (Clotrimazole) 1% 28GM Cream..g., 1 DOSE TOP BID PRN for ITCHING, (Reported) Cyclobenzaprine HCl (Cyclobenzaprine HCl) 10 Mg Tablet, 10 MG PO TID PRN for MUSCLE SPASMS, (Reported) Dexamethasone (Dexamethasone) 0.5 Mg/5 Ml Elixir, 0.5 MG PO QID PRN for MILD DISCOMFORT, (Reported) Hydrocodone/Acetaminophen (Hydrocodone-Acetamin 5-325 mg) 1 Each Tablet, 1 TAB PO Q6H PRN for SEVERE PAIN (PS 8-10), (Reported) MDD 4 Hydrocortisone (Hydrocortisone) 28 Gm Cream..g., 1 DOSE EXT TID PRN for REDNESS/ITCHING, (Reported) APPLIES TO FACE AND FOREHEAD Lactulose (Lactulose) 10 Gm/15 Ml Maryellen, 30 ML PO TID PRN for CONSTIPATION, (Reported) Lidocaine HCl (Lidocaine HCl Viscous) 15 Ml Solution, 5 ML SSP QID PRN for MOUTH SORES, (Reported) Lorazepam (Lorazepam) 1 Mg Tablet, 0.5 MG PO QHS PRN for INSOMNIA, (Reported) Tramadol HCl/Acetaminophen (Tramadol-Acetaminophn 37.5-325) 1 Each Tablet, 1 TAB PO TID PRN for MODERATE PAIN (PS 5-7), (Reported) Allergies Coded Allergies: Contrast Media (Verified Allergy, Severe, tongue swelling, 03/16/19) Penicillins (Verified Allergy, Severe, CAN'T BREATH, 03/16/19) meperidine (Verified Allergy, Severe, CAN'T BREATH, 03/16/19) metoclopramide (Verified Allergy, Severe, tremors, excitability, difficulty breathing, 05/12/20) prochlorperazine (Verified Allergy, Severe, CAN'T BREATH, 11/14/19) TAKES PROMETHAZINE AT HOME; THEREFORE NOT A CLASS EFFECT adhesive tape (Verified Allergy, Intermediate, BLISTERS, 03/16/19) Quinolones (Verified Allergy, Unknown, UNKNOWN, 02/16/19) hydralazine (Verified Allergy, Unknown, eye and lip swelling, 09/22/21) insulin isophane (NPH) (Verified Allergy, Unknown, SOB, 08/30/21) banana (Verified Adverse Reaction, Mild, VOMITING, 08/19/19) Dionne Weber MD Sep 27, 2021 21:04
== END 2021-09-27 14:30 | disposition home health service (06) | DRG 641 ==
LOC: M ED 17:44 → M ED INP 20:55 → M PCU 09-23 03:17 → M MS5PR 09-25 12:20
PROVIDERS: ADMIT Internal Medicine; ATTEND Internal Medicine
DX: E83.52 Hypercalcemia (principal); D75.81 Myelofibrosis; N18.4 Chronic kidney disease, stage 4 (severe); E87.1 Hypo-osmolality and hyponatremia; Z94.84 Stem cells transplant status; I50.32 Chronic diastolic (congestive) heart failure; I13.0 Hypertensive heart and chronic kidney disease with heart failure and stage 1 through stage 4 chronic kidney disease, or unspecified chronic kidney disease; N17.9 Acute kidney failure, unspecified; I16.9 Hypertensive crisis, unspecified; E11.22 Type 2 diabetes mellitus with diabetic chronic kidney disease; M79.7 Fibromyalgia; I48.91 Unspecified atrial fibrillation; E66.9 Obesity, unspecified; G47.33 Obstructive sleep apnea (adult) (pediatric); G25.81 Restless legs syndrome; F41.9 Anxiety disorder, unspecified; F32.A Depression, unspecified; Z90.49 Acquired absence of other specified parts of digestive tract; Z98.41 Cataract extraction status, right eye; Z98.42 Cataract extraction status, left eye; Z85.828 Personal history of other malignant neoplasm of skin; R74.01 Elevation of levels of liver transaminase levels; M32.8 Other forms of systemic lupus erythematosus; Z79.82 Long term (current) use of aspirin; Z79.4 Long term (current) use of insulin; Z79.84 Long term (current) use of oral hypoglycemic drugs; Z79.899 Other long term (current) drug therapy; Z91.041 Radiographic dye allergy status; Z88.0 Allergy status to penicillin; Z91.040 Latex allergy status; Z88.8 Allergy status to other drugs, medicaments and biological substances; E87.6 Hypokalemia; Z90.79 Acquired absence of other genital organ(s); R91.8 Other nonspecific abnormal finding of lung field; R26.89 Other abnormalities of gait and mobility; G24.01 Drug induced subacute dyskinesia; E79.0 Hyperuricemia without signs of inflammatory arthritis and tophaceous disease; D64.9 Anemia, unspecified

== ENCOUNTER 2021-10-02 00:07 | Emergency (ER) | payer MEDICARE, OTHER ==
[~2021-10-02] VITALS: Ht 165.1 cm; Wt 87.3 kg
[~2021-10-02 00:07] MED LIST changes: +ADME100I2 SC; +ALLO10TA PO; +ASPI-161 PO; +ASPI81CH33 PO; +BENZ-52 PO; +CARD180C4 PO; +CLOT28CR2 TOP; +COLA100C5 PO; +DOCU100C16 PO; +HYDR-3713 PO; +HYDR1CR EXT; +HYDR1CRE30 TOP; +LIDO2SOL17 PO; -LISI-898 PO; +LISI5TAB11 PO; +LOSA100T45; +LOSA100T45 PO; -LOSA100T50; -LOSA100T50 PO; -MONT10TA10 PO; +MONT10TA97 PO; +SENN-80 PO; +SENN8.6T28 PO
[2021-10-02] MEDS ORDERED: [UNRECOGNIZED DRUG - OTHER] PO (00:21)
[2021-10-02 03:28] LABS: BASO % 0.4 % (0.0-1.0); EOS # 0.2 10^3/uL (0.0-0.5); EOS % 2.4 % (0.0-3.0); HEMATOCRIT 30.2 % (36.0-47.0); HEMOGLOBIN 10.3 g/dl (12.0-15.5); LYMPH # 2.1 10^3/uL (1.5-5.0); LYMPH % 22.8 % (24.0-44.0); MEAN CORPUSCULAR HEMOGLOBIN 34.8 pg (27.0-33.0); MEAN CORPUSCULAR HGB CONC 34.1 g/dl (32.0-36.5); MONO # 1.3 10^3/uL (0.0-0.8); NEUTROPHILS # 5.4 10^3/uL (1.5-8.5); NEUTROPHILS % 60.2 % (36.0-66.0); PLATELET COUNT, AUTOMATED 198 10^3/uL (150-450); RED BLOOD COUNT 2.96 10^6/uL (4.00-5.40); WHITE BLOOD COUNT 9.1 10^3/uL (4.0-10.0)
[2021-10-02 04:04] LABS: ACETAMINOPHEN LEVEL < 2.0 UG/ML (10.0-30.0); ALBUMIN 3.4 GM/DL (3.2-5.2); ALT/SGPT 55 U/L (12-78); BILIRUBIN,DIRECT < 0.1 MG/DL (0.0-0.2); BILIRUBIN,TOTAL 0.4 MG/DL (0.2-1.0); BLOOD UREA NITROGEN 37 MG/DL (7-18); CALCIUM LEVEL 9.7 MG/DL (8.8-10.2); CARBON DIOXIDE LEVEL 21 MEQ/L (21-32); CHLORIDE LEVEL 103 MEQ/L (98-107); CREATININE FOR GFR 2.09 MG/DL (0.55-1.30); ETHYL ALCOHOL (ETHANOL) < 0.003 % (0.000-0.010); GLOMERULAR FILTRATION RATE 25.4 (>45); GLUCOSE, FASTING 133 MG/DL (70-100); POTASSIUM SERUM 4.6 MEQ/L (3.5-5.1); SALICYLATE LEVEL < 1.7 MG/DL (5.0-30.0); SODIUM LEVEL 133 MEQ/L (136-145); TOTAL PROTEIN 6.6 GM/DL (6.4-8.2)
[2021-10-02 05:02] LABS: AMPHETAMINES LEVEL URINE NEGATIVE (NEGATIVE); BARBITURATES URINE NEGATIVE (NEGATIVE); BENZODIAZEPINES URINE NEGATIVE (NEGATIVE); CANNABINOIDS URINE NEGATIVE (NEGATIVE); COCAINE METABOLITE URINE NEGATIVE (NEGATIVE); METHADONE URINE NEGATIVE (NEGATIVE); OPIATES URINE NEGATIVE (NEGATIVE); PHENCYCLIDINE URINE NEGATIVE (NEGATIVE)
[2021-10-02 06:15] VITALS: BP 159/72
== END 2021-10-02 06:58 | disposition home or self-care (01) ==
LOC: M ED 00:07
DX: Z04.89 Encounter for examination and observation for other specified reasons (principal); I10 Essential (primary) hypertension; E11.9 Type 2 diabetes mellitus without complications; I48.91 Unspecified atrial fibrillation; I25.10 Atherosclerotic heart disease of native coronary artery without angina pectoris; M79.7 Fibromyalgia; G25.81 Restless legs syndrome; Z79.899 Other long term (current) drug therapy; Z79.82 Long term (current) use of aspirin; Z79.4 Long term (current) use of insulin

== ENCOUNTER → 2021-10-04 | Outpatient (REF) | payer MEDICARE, OTHER ==
[~2021-10-04] MED LIST changes: +[UNRECOGNIZED DRUG - OTHER] PO
[2021-10-04 10:54] LABS: BASO % 0.6 % (0.0-1.0); EOS # 0.5 10^3/uL (0.0-0.5); EOS % 6.9 % (0.0-3.0); HEMATOCRIT 28.2 % (36.0-47.0); HEMOGLOBIN 9.7 g/dl (12.0-15.5); LYMPH # 1.9 10^3/uL (1.5-5.0); MEAN CORPUSCULAR HEMOGLOBIN 35.1 pg (27.0-33.0); MEAN CORPUSCULAR HGB CONC 34.4 g/dl (32.0-36.5); MEAN CORPUSCULAR VOLUME 102.2 fl (80.0-96.0); NEUTROPHILS # 3.5 10^3/uL (1.5-8.5); NEUTROPHILS % 50.2 % (36.0-66.0); PLATELET COUNT, AUTOMATED 187 10^3/uL (150-450); RED BLOOD COUNT 2.76 10^6/uL (4.00-5.40); WHITE BLOOD COUNT 6.9 10^3/uL (4.0-10.0)
[2021-10-04 12:07] LABS: ALBUMIN 3.2 GM/DL (3.2-5.2); BILIRUBIN,TOTAL 0.3 MG/DL (0.2-1.0); CREATININE FOR GFR 1.72 MG/DL (0.55-1.30); GLOMERULAR FILTRATION RATE 31.8 (>45); MAGNESIUM LEVEL 2.3 MG/DL (1.8-2.4); POTASSIUM SERUM 4.5 MEQ/L (3.5-5.1); TOTAL PROTEIN 5.8 GM/DL (6.4-8.2)
== END ==
LOC: M LAB REF 10:41
PROVIDERS: ATTEND Internal Medicine
DX: Z94.81 Bone marrow transplant status (principal)

== ENCOUNTER 2021-10-05 15:56 | Emergency (ER) | payer MEDICARE, OTHER ==
[~2021-10-05] VITALS: Ht 165.1 cm; Wt 87.4 kg
[~2021-10-05 15:56] MED LIST changes: +LISI-898 PO; -LISI5TAB11 PO; -LOSA100T45; -LOSA100T45 PO; +LOSA100T50; +LOSA100T50 PO; +MONT10TA10 PO; -MONT10TA97 PO
[2021-10-06 03:51] LABS: BASO % 0.5 % (0.0-1.0); EOS % 0.2 % (0.0-3.0); HEMATOCRIT 31.4 % (36.0-47.0); HEMOGLOBIN 10.8 g/dl (12.0-15.5); LYMPH # 1.7 10^3/uL (1.5-5.0); LYMPH % 19.7 % (24.0-44.0); MEAN CORPUSCULAR HEMOGLOBIN 34.6 pg (27.0-33.0); MEAN CORPUSCULAR HGB CONC 34.4 g/dl (32.0-36.5); MEAN CORPUSCULAR VOLUME 100.6 fl (80.0-96.0); MONO # 0.9 10^3/uL (0.0-0.8); MONO % 10.5 % (2.0-8.0); NEUTROPHILS # 6.1 10^3/uL (1.5-8.5); NEUTROPHILS % 68.9 % (36.0-66.0); PLATELET COUNT, AUTOMATED 203 10^3/uL (150-450); RED BLOOD COUNT 3.12 10^6/uL (4.00-5.40); WHITE BLOOD COUNT 8.8 10^3/uL (4.0-10.0)
--- OUTSIDE RECORDS SUMMARY | 2021-10-06 05:17 | CCD ---
Author Author [facility] 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 [facility] Address Unknown Phone Unavailable Care Team Providers Care Quality Intern Name Role Phone Rosendo Pelayo MD Unavailable [...] WEDOW, AILEEN Unavailable Unavailable BUMBANAC, A [employer] Unavailable Unavailable [place], A [employer] Unavailable Unavailable BUM[place]C, A [employer] Unavailable Unavailable BUM[place]C, A [employer] Unavailable Unavailable BUMBANAC, A [employer] Unavailable Unavailable BUM[place]NAC, A [employer] Unavailable Unavailable BUMBANAC, A [employer] Unavailable Unavailable BUMBANAC, A [employer] Unavailable Unavailable BUMBANAC, A [employer] Unavailable Unavailable BUMBANAC, A [employer] Unavailable Unavailable BUMBANAC, A [employer] Unavailable Unavailable BUMBANAC, A [employer] Unavailable Unavailable BUMBANAC, A [employer] Unavailable Unavailable BUMBANAC, A [employer] Unavailable Unavailable BUM[place]C, A [employer] Unavailable Unavailable BUM[place], A [employer] Unavailable Unavailable [place], A [employer] Unavailable Unavailable B[place]C, A [employer] Unavailable Unavailable BUM[place]C, A [employer] Unavailable Unavailable BUMBANAC, A [employer] Unavailable Unavailable BUM[place]C, A [employer] Unavailable Unavailable BUMBANAC, A [employer] Unavailable Unavailable BUMBANAC, A [employer] Unavailable Unavailable BUMBANAC, A [employer] Unavailable Unavailable BUMBANAC, A [employer] Unavailable Unavailable BUMBANAC, A [employer] Unavailable Unavailable BUMBANAC, A [employer] Unavailable Unavailable BUMBANAC, A [employer] Unavailable Unavailable BUM[place]C, A [employer] Unavailable Unavailable BUM[place]C, A [employer] Unavailable Unavailable BUM[place]NAC, A [employer] Unavailable Unavailable SARAH GRADY MD Unavailable Unavailable [...] Unavailable SARAH GRADY MD Unavailable Unavailable SARAH GRDAY MD Unavailable Unavailable SARAH GRADY MD Unavailable [...] MD Unavailable Unavailable MtanosBlaine MD Unavailable Unavailable MtanoslBaine MD Unavailable Unavailable MtanosBlaine MD Unavailable Unavailable [...] DAVID PA Unavailable Unavailable Hernandez, M Maik [employer] Unavailable Unavailable Hernandez, M Maik [employer] Unavailable Unavailable Hernandez, M Maik [employer] Unavailable Unavailable Hernandez, M Maik [employer] Unavailable Unavailable Hernandez, M Maik [employer] Unavailable Unavailable Hernandez, M Maik [employer] Unavailable Unavailable Hernandez, M Maik [employer] Unavailable Unavailable HERNANDEZ, W PABLO Unavailable Unavailable [...] is protected by Article 27-F of the [facility] Public Health law. If you continue you may have access to information: Regarding HIV / AIDS; Provided by facilities licensed or operated by the [facility] Office of Mental Health; or Provided by the [facility] Office for People With Developmental Disabilities. If such information is present, then the following [facility] mandated warning applies: This information has [...] law may result in a fine or skilled nursing sentence or both. A general authorization for the release of medical or other information is NOT sufficient authorization for further disc losure. Allergies and Adverse Reactions Type Description Substance Reaction Status Data Source(s ) Propensity to adverse reactions COMPAZINE PO TAB 10 MG COMPAZINE PO TAB 10 MG [facility] Propensity to adverse reactions DEMEROL DEMEROL [facility] Propensity to adverse reactions PCN (penicillin) PCN (penicillin) [facility] Family History Family Member Name Family Member Gender Family Member Status Date o f Status Description Data Source(s) Unknown Male Problem (finding) 10/17/2014 12:00:00 AM EST NextGen ([facility]) Unknown Male Problem (finding) 10/17/2014 12:00:00 AM EST NextGen ([facility]) Unknown Male Problem MEDENT ([facility] () Unknown Unknown Problem MEDENT ([facility]) Unknown Female Problem MEDENT ([facility]) Unknown Female Problem MEDENT ([facility]) Unknown Female Problem MEDENT ([facility]) Unknown Female Problem MEDENT ([facility]) Unknown Female Problem MEDENT ([facility]) Encounters Encounter Providers Location Date Indications Data Source(s ) Unknown [address] [facility] [address] 09/28/2021 12:00:00 AM EST eCW1 ([facility]) Outpatient Attender: PABLO Lightultant: SHASHANK COUCH 09/21/2021 11:10:00 AM EST - 09/21/2021 11:20:00 AM EST [facility] Referrer: SARAH GRADY MD 09/03/2021 08:2 1:10 PM EDT [facility] Referrer: SARAH GRADY MD 08/25/2021 08:2 1:10 PM EDT [facility] 08/25/2021 08:21:10 PM EDT [facility] 08/25/2021 08:21:10 PM EDT [facility] Outpatient [address] [facility] [address] 08/11/2021 12:00:00 AM EDT eCW1 ([facility]) Outpatient Attender: LUZ ELENA EDDYReferrer: Pablo Hernandez EMERGENCY ROOM-LAB REFOTH 08/02/2021 11:33:00 AM EDT - 08/02/2021 11:33:00 AM T [facility] Unknown [address] [facility] [address] 06/15/2021 12:00:00 AM EDT [facility]CW1 [facility] Outpatient Attender: LUDIN MIGUEL NPConsultant: SHASHANK BUNK ER PA 05/31/2021 03:28:00 PM EDT - 05/31/2021 03:28:00 PM EDT [facility] Unknown [address] [facility] [address] 05/31/2021 12:00:00 AM EDT eCW1 ([facility]) Outpatient Attender: Maik Hernandez NPConsultant: SHASHANK MANZANARESK ER PA 05/16/2021 10:55:00 AM EDT - 05/16/2021 11:05:00 AM EDT [facility] Outpatient [address] [facility] [address] 05/11/2021 12:00:00 AM EDT [facility] Outpatient Attender: Maik Hernandez NPConsultant: SHASHANK BUNK ER PA 05/04/2021 01:00:00 PM EDT - 05/04/2021 01:10:00 PM EDT [facility] Unknown [address] [facility] [address] 05/04/2021 12:00:00 AM EDT eCW1 ([facility]) Outpatient [address] [facility] [address] 05/04/2021 12:00:00 AM EDT eCW1 ([facility]) Unknown [address] [facility] [address] 05/04/2021 12:00:00 AM EDT eCW1 ([facility]) Unknown [address] [facility] [address] 04/21/2021 12:00:00 AM EDT eCW1 ([facility]) Unknown [address] [facility] [address] 04/13/2021 12:00:00 AM EDT eCW1 ([facility]) Unknown [address] [facility] [address] 04/09/2021 12:00:00 AM EDT eCW1 ([facility]) Unknown [address] [facility] [address] 04/06/2021 12:00:00 AM EDT eCW1 ([facility]) Outpatient Attender: PABLO Mendoza: PABLO HERNANDEZ 04/05/2021 12:00:00 AM EDT - 04/06/2021 12:00:00 AM EDT Bone marrow transplant status [facility] Bone marrow transplant status Outpatient [address] [facility] [address] 04/01/2021 12:00:00 AM EDT eCW1 ([facility]) Unknown [address] [facility] [address] 03/29/2021 12:00:00 AM EDT eCW1 ([facility]) [facility] Pt. Level 3 [address] [place] [address] 03/25/2021 12:00:00 AM EDT eCW1 ([facility]) [place] [address] [facility] [address] 2021 12:00:00 AM EDT eCW1 ([facility]) Unknown [address] [facility] [address] 03/08/2021 12:00:00 AM EDT eCW1 ([facility]) (TV_Virtual) [facility] [address] [place] [address] 03/04/2021 12:00:00 AM EDT eCW1 ([facility]) Unknown [address] [facility] [address] 03/02/2021 12:00:00 AM EDT eCW1 ([facility]) Unknown [address] [facility] [address] 02/22/2021 12:00:00 AM EDT eCW1 ([facility]) Unknown [address] [facility] [address] 02/21/2021 12:00:00 AM EDT eCW1 ([facility]) Unknown [address] [facility] [address] 02/18/2021 12:00:00 AM EDT eCW1 ([facility]) Outpatient [address] [facility] [address] 02/18/2021 12:00:00 AM EDT eCW1 ([facility]) Unknown [address] [facility] [address] 02/18/2021 12:00:00 AM EDT eCW1 ([facility]) Unknown [address] [facility] [address] 02/15/2021 12:00:00 AM EDT eCW1 ([facility]) Outpatient Attender: DAVID COUCH Main Office 02/10/2021 1 0:15:00 AM EDT MEDENT ([facility]) Outpatient [address] [facility] [address] 02/04/2021 12:00:00 AM EDT eCW1 ([facility]) Unknown [address] [facility] [address] 01/27/2021 12:00:00 AM EDT eCW1 ([facility]) Unknown [address] [facility] [address] 01/27/2021 12:00:00 AM EDT eCW1 ([facility]) Unknown [address] [facility] [address] 01/19/2021 12:00:00 AM EDT eCW1 ([facility]) Unknown [address] [facility] [address] 01/10/2021 12:00:00 AM EST eCW1 ([facility]) Unknown [address] [facility] [address] 01/10/2021 12:00:00 AM EST eCW1 ([facility]) Unknown [address] [facility] [address] 12/23/2020 12:00:00 AM EST eCW1 ([facility]) TeleMedicine New Pt. Level 4 [address] [place] [address] 12/15/2020 12:00:00 AM EST eCW1 ([facility]) Unknown [address] [facility] [address] 12/07/2020 12:00:00 AM EST eCW1 ([facility]) TeleMedicine Est. Pt. Level [address] [place] [address] 11/17/2020 12:00:00 AM EST eCW1 ([facility]) Unknown [address] [facility] [address] 11/10/2020 12:00:00 AM EST eCW1 ([facility]) Unknown [address] [facility] [address] 10/26/2020 12:00:00 AM EST eCW1 ([facility]) TeleMedicine Est. Pt. Level [address] [place] [address] 10/22/2020 12:00:00 AM EST eCW1 ([facility]) Attender: Blaine Damon MD [facility] 10/13/2020 12:58:00 PM EST - 10/13/2020 12:58:00 PM EST Next ( [facility]) Outpatient Attender: AILEEN OKCHReferrer: AILEEN KOCH Refrigerator Car Icer: SHASHANK COUCH 10/05/2020 12:00:00 PM EST - 10/05/2020 12:10:00 PM EST [facility] Outpatient Attender: PABLO Guerraant: SHASHANK COUCH 10/05/2020 11:59:00 AM EST - 10/05/2020 12:09:00 PM EST [facility] Unknown [address] [facility] [address] 10/05/2020 12:00:00 AM EST eCW1 ([facility]) Outpatient [address] [facility] [address] 09/22/2020 12:00:00 AM EST eCW1 ([facility]) Unknown [address] [facility] [address] 09/21/2020 12:00:00 AM EST eCW1 [facility] Unknown [address] [facility] [address] 09/16/2020 12:00:00 AM EST [facility]CW1 [facility] Outpatient Attender: VAUGHN Thorne: Norberto sutton MD 09/05/2020 12:00:00 AM EDT - 09/06/2020 12:00:00 AM EDT [facility] Unknown [address] [facility] [address] 09/04/2020 12:00:00 AM EDT eCW1 ([facility]) Outpatient Attender: AILEEN KOCHConsultant: SHASHANK COUCH 08/31/2020 12:30:00 PM EDT - 08/31/2020 12:40:00 PM EDT [facility] Outpatient Attender: PABLO Guerraant: SHASHANK COUCH 08/31/2020 12:28:00 PM EDT - 08/31/2020 12:38:00 PM EDT [facility] Unknown [address] [facility] [address] 08/31/2020 12:00:00 AM EDT eCW1 [facility] Unknown [address] [facility] [address] 08/25/2020 12:00:00 AM EDT eCW1 ([facility]) Unknown [address] [facility] [address] 08/24/2020 12:00:00 AM EDT eCW1 ([facility]) Unknown [address] [facility] [address] 08/24/2020 12:00:00 AM EDT eCW1 ([facility]) Unknown [address] [facility] [address] 08/24/2020 12:00:00 AM EDT eCW1 ([facility]) Outpatient Attender: JORGE OROSCOReferrer: Norberto elizondo MD [id number] 08/18/2020 12:00:00 AM EDT - 08/19/2020 12:00:[address] [facility] Outpatient 08/15/2020 12:00:[address] [facility] Unknown [address] [facility] [address] 08/12/2020 12:00:00 AM EDT eCW1 ([facility]) Outpatient [address] [facility] [address] 08/11/2020 12:00:00 AM EDT eCW1 ([facility]) Immunizations Vaccine Date Status Description Data Source(s) COVID-19 VACC,MRNA(MODERNA)/PF 07/23/2021 12:00:00 AM EDT completed [facility] COVID-19 VACCINE Moderna 07/23/2021 12:00:00 AM EDT completed [facility] Vaccine Series Complete: YESThis Data wa s Submitted to [facility] [employer]. COVID-19 VACCINE Moderna 02/01/2021 12:00:00 AM EDT completed [facility] Vaccine Series Complete: YESThis Data wa s Submitted to [facility] [employer]. COVID-19 VACCINE Moderna 01/04/2021 12:00:00 AM EST completed [facility] Vaccine Series Complete: NOThis Data was Submitted to [facility] [employer]. Medications Medication Brand Name Start Date Product Form Dose Route Admi nistrative Instructions Pharmacy Instructions Status Indications Reaction Description Data Source(s) Lorazepam 1 MG Oral Tablet Lorazepam 1 MG 09/29/2021 12:00:00 AM EST active Lorazepam 1 MG eCW1 ([facility]) 1 mg 09/29/2021 12:00:00 AM EST tablet 60 TAKE ONE TABLET BY MOUTH TWICE A DAY NEEDED , MAXIMUM DAILY DOSE = 2 TABLETS TAKE ONE TABLET BY MOUTH TWICE A DAY NEEDED , MAXIMUM DAILY DOSE = 2 TABLETS SOLD: 10/01/2021 [facility] 24 HR Diltiazem Hydrochloride 180 MG Extended Release Oral Capsule DILTIAZEM HCL 09/27/2021 12:00:00 AM EST capsule,extended release 24hr 60 TAKE TWO CAPSULES BY MOUTH EVERY DAY TAKE TWO CAPSULES BY MOUTH EVERY DAY SOLD: 09/27/2021 [facility] 0.125 mg 09/27/2021 12:00:00 AM EST tablet 30 TAKE ONE TABLET BY MOUTH AT BEDTIME TAKE ONE TABLET BY MOUTH AT BEDTIME SOLD: 09/27/2021 [facility] 1 mg 09/27/2021 12:00:00 AM EST tablet 60 TAKE ONE TABLET BY MOUTH TWICE A DAY TAKE ONE TABLET BY MOUTH TWICE A DAY SOLD: 09/27/2021 [facility] 100 mg 09/27/2021 12:00:00 AM EST tablet 30 TAKE ONE TABLET BY MOUTH EVERY DAY TAKE ONE TABLET BY MOUTH EVERY DAY SOLD: 09/27/2021 [facility] 10 mg 09/07/2021 12:00:00 AM EDT tablet [...] AM EDT active Lorazepam 1 MG eCW1 ([facility]) 1 mg 08/10/2021 12:00:00 AM EDT tablet [...] BY MOUTH EVERY EVENING SOLD: 08/10/2021 [facility]160 mg 07/28/2021 12:00:00 AM EDT [...] MOUTH THREE TIMES A WEEK SOLD: 08/22/2021 [facility] 0.5 mg/5 mL 07/22/2021 12:00:00 AM [...] DAY USE FOUR TIMES A DAY SOLD: 09/26/2021 [facility] 31 gauge x 1/4" [...] 120 TAPER DIRECTED TAPER DIRECTED SOLD: 06/29/2021 [facility] Lorazepam 1 MG Oral Tablet LORAZEPAM 06/16/2021 12:00:00 AM EDT tablet 60 TAKE ONE TABLET BY MOUTH TWICE A DAY NEEDED MAXIMUM DAILY DOSE = TWO TABLETS TAKE ONE TABLET BY MOUTH TWICE A DAY NEEDED MAXIMUM DAILY DOSE = TWO TABLETS SOLD: 06/20/2021 [facility] 300 mg 06/16/2021 12:00:00 AM EDT capsule 30 TAKE ONE CAPSULE BY MOUTH EVERY DAY AT NIGHT TAKE ONE CAPSULE BY MOUTH EVERY DAY AT NIGHT SOLD: 09/14/2021 [facility] 300 mg 06/16/2021 12:00:00 AM EDT capsule 90 TAKE ONE CAPSULE BY MOUTH EVERY DAY AT NIGHT TAKE ONE CAPSULE BY MOUTH EVERY DAY AT NIGHT SOLD: 06/20/2021 [facility] 100 unit/mL (3 mL) 06/15/2021 12:00:00 [...] AM EDT active Lorazepam 1 MG eCW1 ([facility]) Acetaminophen 325 MG / Hydrocodone Bitartrate 5 MG Ora l Tablet 5-325 mg HYDROCODONE/ACETAMINOPHEN 06/02/2021 12:00:00 AM EDT tablet 15 TAKE ONE TABLET BY MOUTH EVERY 6 HOURS NEEDED FOR PAIN MAXIMUM DAILY DOSE = FOUR TABLETS TAKE ONE TABLET BY MOUTH EVERY 6 HOURS NEEDED FOR PAIN MAXIMUM DAILY DOSE = FOUR TABLETS SOLD: 06/03/2021 [facility] Acetaminophen 325 MG / tramadol [...] 5.0 {drops_into_affected_ear} active Debrox 6.5 % eCW1 ([facility]) Mupirocin 20 MG/ML Topical Cream Mupirocin Calcium 2 % Mupir ocin Calcium 2 % 05/04/2021 12:00:00 AM EDT 1.0 {application} act fany Mupirocin Calcium 2 % eCW1 ([facility]) Mupirocin 20 MG/ML Topical Cream Mupirocin Calcium 2 % Mupir ocin Calcium 2 % 05/04/2021 12:00:00 AM EDT 1.0 {application} act fany Mupirocin Calcium 2 % eCW1 ([facility]) Mupirocin 20 MG/ML Topical Cream Mupirocin Calcium 2 % Mupir ocin Calcium 2 % 05/04/2021 12:00:00 AM EDT 1.0 {application} act fany Mupirocin Calcium 2 % eCW1 ([facility]) Mupirocin 20 MG/ML Topical Cream Mupirocin Calcium 2 % Mupir ocin Calcium 2 % 05/04/2021 12:00:00 AM EDT 1.0 {application} act fany Mupirocin Calcium 2 % eCW1 ([facility]) carbamide peroxide 65 MG/ML Otic Solution [Debrox] Debrox 6. 5 % Debrox 6.5 % 05/04/2021 12:00:00 AM EDT 5.0 {drops_into_affected_ear} active Debrox 6.5 % eCW1 ([facility]) Mupirocin 20 MG/ML Topical Cream Mupirocin Calcium 2 % Mupir ocin Calcium 2 % 05/04/2021 12:00:00 AM EDT 1.0 {application} active eCW1 ([facility]) carbamide peroxide 65 MG/ML Otic Solution [Debrox] Debrox 6. 5 % Debrox 6.5 % 05/04/2021 12:00:00 AM EDT 5.0 {drops_into_affected_ear} active Debrox 6.5 % eCW1 ([facility]) carbamide peroxide 65 MG/ML Otic Solution [Debrox] Debrox 6. 5 % Debrox 6.5 % 05/04/2021 12:00:00 AM EDT 5.0 {drops_into_affected_ear} active Debrox 6.5 % eCW1 ([facility]) carbamide peroxide 65 MG/ML Otic Solution [Debrox] Debrox 6. 5 % Debrox 6.5 % 05/04/2021 12:00:00 AM EDT 5.0 {drops_into_affected_ear} active Debrox 6.5 % eCW1 ([facility]) Mupirocin 20 MG/ML Topical Cream Mupirocin Calcium 2 % Mupir ocin Calcium 2 % 05/04/2021 12:00:00 AM EDT 1.0 {application} act fany Mupirocin Calcium 2 % eCW1 ([facility]) carbamide peroxide 65 MG/ML Otic Solution [Debrox] Debrox 6. 5 % Debrox 6.5 % 05/04/2021 12:00:00 AM EDT 5.0 {drops_into_affected_ear} active Debrox 6.5 % eCW1 ([facility]) carbamide peroxide 65 MG/ML Otic Solution [Debrox] Debrox 6. 5 % Debrox 6.5 % 05/04/2021 12:00:00 AM EDT 5.0 {drops_into_affected_ear} active Debrox 6.5 % eCW1 ([facility]) carbamide peroxide 65 MG/ML Otic Solution [Debrox] Debrox 6. 5 % Debrox 6.5 % 05/04/2021 12:00:00 AM EDT 5.0 {drops_into_affected_ear} active eCW1 ([facility]) Mupirocin 20 MG/ML Topical Cream Mupirocin Calcium 2 % Mupir ocin Calcium 2 % 05/04/2021 12:00:00 AM EDT 1.0 {application} act fany Mupirocin Calcium 2 % eCW1 ([facility]) Mupirocin 20 MG/ML Topical Cream Mupirocin Calcium 2 % Mupir ocin Calcium 2 % 05/04/2021 12:00:00 AM EDT 1.0 {application} act fany Mupirocin Calcium 2 % eCW1 ([facility]) 10 mg 04/28/2021 12:00:00 AM EDT tablet [...] DOSE = 42 UNITS SOLD: 04/24/2021 [facility] 100 unit/mL 04/24/2021 12:00:00 AM EDT [...] TABLETS BY MOUTH EVERY NIGHT SOLD: 06/20/2021 [facility] Escitalopram 5 MG Oral Tablet [Lexapro] Lexapro 5 MG Lexapro 5 MG 03/26/2021 12:00:00 AM EDT 1.0 {tablet} active Le xapro 5 MG eCW1 ([facility]) Escitalopram 5 MG Oral Tablet [Lexapro] Lexapro 5 MG Lexapro 5 MG 03/26/2021 12:00:00 AM EDT 1.0 {tablet} active eCW1 ([facility]) 0.125 mg 03/26/2021 12:00:00 AM EDT tablet 90 TAKE THREE TABLETS BY MOUTH EVERY NIGHT TAKE THREE TABLETS BY MOUTH EVERY NIGHT SOLD: 07/20/2021 [facility] Escitalopram 5 MG Oral Tablet [Lexapro] Lexapro 5 MG Lexapro 5 MG 03/26/2021 12:00:00 AM EDT 1.0 {tablet} active Le xapro 5 MG eCW1 ([facility]) 0.125 mg 03/26/2021 12:00:00 AM EDT tablet [...] EDT ORAL active MEDENT ([facility] 100 mg 03/01/2021 12:00:00 AM EDT tablet [...] EDT ORAL active [facility] ([facility]) Cholecalciferol 2000 UNT Oral Tablet Vitamin D3 02/09/2021 12:00:00 A M EDT ORAL active [facility] ([facility] ferrous gluconate 256 MG Oral Tablet Iron (Ferrous Gluconate ) 02/09/2021 12:00:00 AM EDT ORAL active M EDENT ([facility]) Acyclovir 400 MG Oral Tablet Acyclovir 02/09/2021 12:00:00 AM EDT ORAL active [facility] ([facility]) Labetalol hydrochloride 100 MG Oral Tablet Labetalol HCL 02/09/2021 12:00:00 AM EDT ORAL active [facility] ([facility]) Amlodipine 5 MG Oral Tablet Amlodipine Besylate 02/09/2021 12:00:00 A M EDT ORAL active [facility] ([facility]) Prednisone 5 MG Oral Tablet Prednisone 02/09/2021 12:00:00 AM EDT ORAL active [facility] ([facility]) 24 HR Oxybutynin chloride 15 MG Extended Release Oral Tablet Oxybutynin Chloride ER 02/09/2021 12:00:00 AM EDT ORAL active [facility] ([facility]) 24 HR Diltiazem Hydrochloride 120 MG Extended Release Oral C apsule Diltiazem CD 02/09/2021 12:00:00 AM EDT ORAL active [facility] ([facility]) Aspirin 81 MG Delayed Release Oral Tablet Aspirin 81 2020 12:00:00 AM EDT ORAL active [facility] ( [facility]) Admelog Solostar Admelog Solostar 02/09/2021 12:00:00 AM EDT active [facility] ([facility]) repaglinide 2 MG Oral Tablet Repaglinide 02/09/2021 12:00:00 AM EDT ORAL active [facility] ([facility]) Clotrimazole 10 MG/ML Topical Cream Clotrimazole 02/09/2021 12:00:00 AM EDT active [facility] ([facility]) 60 ACTUAT Budesonide 0.16 MG/ACTUAT / fo rmoterol fumarate 0.0045 MG/ACTUAT Metered Dose Inhaler Budesonide/Formoterol Fumarate Dihydrate 02/09/2021 12:00:00 AM EDT RESPIRATORY active [facility] ([facility]) Dexamethasone 0.1 MG/ML Oral Solution Dexamethasone 02/09/2021 12:00:00 AM EDT ORAL active [facility] ( [facility]) Hydroxychloroquine Sulfate 200 MG Oral Tablet Hydroxychloroq uine Sulfate 02/09/2021 12:00:00 AM EDT ORAL active [facility] ([facility]) Hydrocortisone 10 MG/ML Topical Cream Hydrocortisone 02/09/2021 12:00:00 AM EDT active [facility] ( [facility]) Folic Acid 1 MG Oral Tablet Folic Acid 02/09/2021 12:00:00 AM EDT ORAL active [facility] ([facility]) difluprednate 0.5 MG/ML Ophthalmic Suspension [Durezol] Dure zol 02/09/2021 12:00:00 AM EDT completed [facility] ([facility]) Pramipexole dihydrochloride 0.125 MG Oral Tablet Pramipexole Dihydrochloride 02/09/2021 12:00:00 AM EDT ORAL active [facility] ([facility]) montelukast 10 MG Oral Tablet Montelukast Sodium 02/09/2021 12:00:00 AM EDT ORAL active [facility] ([facility]) Lidocaine Hydrochloride 20 MG/ML Injectable Solution [Xyloca ine] Xylocaine 02/09/2021 12:00:00 AM EDT active [facility] ([facility]) Ketorolac Tromethamine 5 MG/ML Ophthalmic Solution Ketorolac Tromethamine 02/09/2021 12:00:00 AM EDT OPHTHALMIC completed [facility] ([facility]) Acetaminophen 325 MG / tramadol hydrochloride 37.5 MG Oral Tablet Tramadol Hydrochloride/Acetaminophen 02/09/2021 12:00:00 AM EDT ORAL active [facility] ([facility]) Chlorthalidone 25 MG Oral Tablet Chlorthalidone 02/09/2021 12:00:00 A M EDT ORAL active [facility] ([facility]) 2.5 mg 02/08/2021 12:00:00 AM EDT [...] {tablet} active Le xapro 5 MG eCW1 ([facility]) Escitalopram 5 MG Oral Tablet [Lexapro] Lexapro 5 MG Lexapro 5 MG 12/15/2020 12:00:00 AM EST 1.0 {tablet} active Le xapro 5 MG eCW1 ([facility]) Escitalopram 5 MG Oral Tablet [Lexapro] Lexapro 5 MG Lexapro 5 MG 12/15/2020 12:00:00 AM EST 1.0 {tablet} active Le xapro 5 MG eCW1 ([facility]) 2 mg 12/15/2020 12:00:00 AM EST tablet [...] {tablet} active Le xapro 5 MG eCW1 ([facility]) 2 mg 12/15/2020 12:00:00 AM EST tablet [...] {tablet} active Le xapro 5 MG eCW1 ([facility]) Escitalopram 5 MG Oral Tablet ESCITALOPRAM OXALATE 12/15/2020 12 :00:00 AM EST tablet 30 TAKE ONE TABLET BY MOUTH EVERY D AY TAKE ONE TABLET BY MOUTH EVERY DAY SOLD: 12/15/2020 [facility] Escitalopram 5 MG Oral Tablet [Lexapro] Lexapro 5 MG Lexapro 5 MG 12/15/2020 12:00:00 AM EST 1.0 {tablet} active Le xapro 5 MG eCW1 ([facility]) 2 mg 12/15/2020 12:00:00 AM EST tablet [...] {tablet} active Le xapro 5 MG eCW1 ([facility]) Escitalopram 5 MG Oral Tablet ESCITALOPRAM OXALATE [...] {tablet} active Le xapro 5 MG eCW1 ([facility]) Escitalopram 5 MG Oral Tablet [Lexapro] Lexapro 5 MG Lexapro 5 MG 12/15/2020 12:00:00 AM EST 1.0 {tablet} active Le xapro 5 MG eCW1 ([facility]) Escitalopram 5 MG Oral Tablet [Lexapro] Lexapro 5 MG Lexapro 5 MG 12/15/2020 12:00:00 AM EST 1.0 {tablet} active Le xapro 5 MG eCW1 ([facility]) 2 mg 12/15/2020 12:00:00 AM EST tablet [...] {tablet} active Le xapro 5 MG eCW1 ([facility]) Escitalopram 5 MG Oral Tablet [Lexapro] Lexapro 5 MG Lexapro 5 MG 12/15/2020 12:00:00 AM EST 1.0 {tablet} active Le xapro 5 MG eCW1 ([facility]) Escitalopram 5 MG Oral Tablet ESCITALOPRAM OXALATE 12/15/2020 12 :00:00 AM EST tablet 30 TAKE ONE TABLET BY MOUTH EVERY D AY TAKE ONE TABLET BY MOUTH EVERY DAY SOLD: 03/09/2021 [facility] Escitalopram 5 MG Oral Tablet [Lexapro] Lexapro 5 MG Lexapro 5 MG 12/15/2020 12:00:00 AM EST 1.0 {tablet} active Le xapro 5 MG eCW1 ([facility]) Escitalopram 5 MG Oral Tablet [Lexapro] Lexapro 5 MG Lexapro 5 MG 12/15/2020 12:00:00 AM EST 1.0 {tablet} active Le xapro 5 MG eCW1 ([facility]) Escitalopram 5 MG Oral Tablet [Lexapro] Lexapro 5 MG Lexapro 5 MG 12/15/2020 12:00:00 AM EST 1.0 {tablet} active Le xapro 5 MG eCW1 ([facility]) Escitalopram 5 MG Oral Tablet [Lexapro] Lexapro 5 MG Lexapro 5 MG 12/15/2020 12:00:00 AM EST 1.0 {tablet} active Le xapro 5 MG eCW1 ([facility]) Escitalopram 5 MG Oral Tablet [Lexapro] Lexapro 5 MG Lexapro 5 MG 12/15/2020 12:00:00 AM EST 1.0 {tablet} active Le xapro 5 MG eCW1 ([facility]) montelukast 10 MG Oral Tablet MONTELUKAST SODIUM [...] MOUTH TWO TIMES A DAY SOLD: 01/12/2021 [facility] 100 mg 11/17/2020 12:00:00 AM EST tablet 30 TAKE ONE TABLET BY MOUTH EVERY DAY AT BEDTIME TAKE ONE TABLET BY MOUTH EVERY DAY AT BEDTIME SOLD: 11/17/2020 [facility] 200 mg 11/16/2020 12:00:00 AM EST [...] SPIT 5ML BY MOUTH NEEDED SOLD: 10/10/2020 [facility] Hydroxychloroquine Sulfate 200 MG Oral [...] MOUTH EVERY DAY SOLD: 02/02/2021 [facility] Hydroxychloroquine Sulfate 200 MG Oral [...] ND TWO EVERY EVENING SOLD: 10/27/2020 [facility] 0.125 mg 09/27/2020 12:00:00 AM EST tablet 90 TAKE ONE TABLET BY MOUTH EVERY MORNING AND TWO EVERY EVENING TAKE ONE TABLET BY MOUTH EVERY MORNING A ND TWO EVERY EVENING SOLD: 09/27/2020 [facility] 0.125 mg 09/27/2020 12:00:00 [...] {capsule} active K eflex 500 MG eCW1 ([facility]) 15 mg 09/22/2020 12:00:00 AM EST tablet extended release 24hr 30 TAKE ONE TABLET BY MOUTH EVERY DAY AT BEDTIME TAKE ONE TABLET BY MOUTH EVERY DAY AT BEDTIME SOLD: 04/07/2021 [facility] Cephalexin 500 MG Oral Capsule [Keflex] Keflex 500 MG Keflex 500 MG 09/22/2020 12:00:00 AM EST 1.0 {capsule} active K eflex 500 MG eCW1 ([facility]) 15 mg 09/22/2020 12:00:00 AM EST tablet [...] {capsule} active K eflex 500 MG eCW1 ([facility]) 15 mg 09/22/2020 12:00:00 AM EST tablet [...] {capsule} active K eflex 500 MG eCW1 ([facility]) 15 mg 09/22/2020 12:00:00 AM EST tablet [...] {capsule} active K eflex 500 MG eCW1 ([facility]) Cephalexin 500 MG Oral Capsule [Keflex] Keflex 500 MG Keflex 500 MG 09/22/2020 12:00:00 AM EST 1.0 {capsule} active K eflex 500 MG eCW1 ([facility]) 15 mg 09/22/2020 12:00:00 AM EST tablet [...] {capsule} active K eflex 500 MG eCW1 ([facility]) 15 mg 09/22/2020 12:00:00 AM EST tablet extended release 24hr 30 TAKE ONE TABLET BY MOUTH EVERY DAY AT BEDTIME TAKE ONE TABLET BY MOUTH EVERY DAY AT BEDTIME SOLD: 05/11/2021 [facility] Cephalexin 500 MG Oral Capsule [Keflex] Keflex 500 MG Keflex 500 MG 09/22/2020 12:00:00 AM EST 1.0 {capsule} active K eflex 500 MG eCW1 ([facility]) 15 mg 09/22/2020 12:00:00 AM EST tablet [...] EDT 1.0 {tablet_on_the_tongue_and_allow_to_dissolve} active Ondansetron 4 MG [facility] ([facility]) Ondansetron 4 MG Disintegrating Oral Tablet Ondansetron 4 MG 08/18/2020 12:00:00 AM EDT 1.0 {tablet_on_the_tongue_and_allow_to_dissolve} active Ondansetron 4 MG eCW1 ([facility]) Ondansetron 4 MG Disintegrating Oral Tablet Ondansetron 4 MG 08/18/2020 12:00:00 AM EDT 1.0 {tablet_on_the_tongue_and_allow_to_dissolve} active Ondansetron 4 MG eCW1 ([facility]) Ondansetron 4 MG Disintegrating Oral Tablet Ondansetron 4 MG 08/18/2020 12:00:00 AM EDT 1.0 {tablet_on_the_tongue_and_allow_to_dissolve} active Ondansetron 4 MG eCW1 ([facility]) Ondansetron 4 MG Disintegrating Oral Tablet Ondansetron 4 MG 08/18/2020 12:00:00 AM EDT 1.0 {tablet_on_the_tongue_and_allow_to_dissolve} active Ondansetron 4 MG eCW1 ([facility]) Ondansetron 4 MG Disintegrating Oral Tablet Ondansetron 4 MG 08/18/2020 12:00:00 AM EDT 1.0 {tablet_on_the_tongue_and_allow_to_dissolve} active Ondansetron 4 MG eCW1 ([facility]) Ondansetron 4 MG Disintegrating Oral Tablet Ondansetron 4 MG 08/18/2020 12:00:00 AM EDT 1.0 {tablet_on_the_tongue_and_allow_to_dissolve} active Ondansetron 4 MG eCW1 ([facility]) Ondansetron 4 MG Disintegrating Oral Tablet Ondansetron 4 MG 08/18/2020 12:00:00 AM EDT 1.0 {tablet_on_the_tongue_and_allow_to_dissolve} active Ondansetron 4 MG eCW1 ([facility]) Ondansetron 4 MG Disintegrating Oral Tablet Ondansetron 4 MG 08/18/2020 12:00:00 AM EDT 1.0 {tablet_on_the_tongue_and_allow_to_dissolve} active Ondansetron 4 MG eCW1 ([facility]) Ondansetron 4 MG Disintegrating Oral Tablet Ondansetron 4 MG 08/18/2020 12:00:00 AM EDT 1.0 {tablet_on_the_tongue_and_allow_to_dissolve} active Ondansetron 4 MG eCW1 ([facility]) Ondansetron 4 MG Disintegrating Oral Tablet Ondansetron 4 MG 08/18/2020 12:00:00 AM EDT 1.0 {tablet_on_the_tongue_and_allow_to_dissolve} active Ondansetron 4 MG eCW1 ([facility]) Ondansetron 4 MG Disintegrating Oral Tablet Ondansetron 4 MG 08/18/2020 12:00:00 AM EDT 1.0 {tablet_on_the_tongue_and_allow_to_dissolve} active Ondansetron 4 MG eCW1 ([facility]) Ondansetron 4 MG Disintegrating Oral Tablet Ondansetron 4 MG 08/18/2020 12:00:00 AM EDT 1.0 {tablet_on_the_tongue_and_allow_to_dissolve} active Ondansetron 4 MG eCW1 ([facility]) Ondansetron 4 MG Disintegrating Oral Tablet Ondansetron 4 MG 08/18/2020 12:00:00 AM EDT 1.0 {tablet_on_the_tongue_and_allow_to_dissolve} active Ondansetron 4 MG eCW1 ([facility]) Ondansetron 4 MG Disintegrating Oral Tablet Ondansetron 4 MG 08/18/2020 12:00:00 AM EDT 1.0 {tablet_on_the_tongue_and_allow_to_dissolve} active Ondansetron 4 MG eCW1 ([facility]) Ondansetron 4 MG Disintegrating Oral Tablet Ondansetron 4 MG 08/18/2020 12:00:00 AM EDT 1.0 {tablet_on_the_tongue_and_allow_to_dissolve} active Ondansetron 4 MG eCW1 ([facility]) Ondansetron 4 MG Disintegrating Oral Tablet Ondansetron 4 MG 08/18/2020 12:00:00 AM EDT 1.0 {tablet_on_the_tongue_and_allow_to_dissolve} active Ondansetron 4 MG eCW1 ([facility]) 4 mg 08/18/2020 12:00:00 AM EDT tablet,disintegrating 4 5 DISSOLVE ONE TABLET ON TONGUE EVERY 8 HOURS NEEDED FOR NASUEA DISSOLVE ONE TABLET ON TONGUE EVERY 8 HOURS NEEDED FOR NASUEA SOLD: 08/18/2020 [facility] 160-4.5 mcg/actuation 08/12/2020 12:00:00 AM EDT [...] EVERY NIGHT SOLD: 08/13/2020 [facility] Acyclovir 400 MG Oral Tablet ACYCLOVIR 07/22/2020 12:00:00 AM EDT tabl et 60 TAKE ONE TABLET BY MOUTH TWICE A DAY TAKE ONE TABLET BY MOUTH TWICE A DAY SOLD: 09/22/2020 [facility] Acyclovir 400 MG Oral Tablet [...] MOUTH EVERY EVENING SOLD: 10/18/2020 [facility] 2 mg 05/12/2020 12:00:00 AM [...] A DAY SOLD: 09/16/2020 [facility] 100 mg 04/06/2020 12:00:00 AM [...] DAY AT BEDTIME SOLD: 10/18/2020 [facility] 0.125 mg 03/10/2020 12:00:00 AM EDT tablet 90 TAKE ONE TABLET BY MOUTH EVERY MORNING AND TAKE TWO EVERY EVENING TAKE ONE TABLET BY MOUTH EVERY MORNING A ND TAKE TWO EVERY EVENING SOLD: 08/25/2020 [facility] Hydroxychloroquine Sulfate 200 MG [...] type / Coverage type Policy ID Covered constitution party ID Covered constitution party's relationship to sharma Policy Sharma Plan Information [employer] [id number] [facility] Medigap Part B [id number] Family De pendent Ghi/Emblem [facility] (pr) Medigap Part B [id number] Self [facility] 10/21/15 HU2 10/21/15 MEDICARE [id number] SP [id number] A POMCO [id number] Liv [id number] POMCO [id number] Liv [id number] POM[facility] U [id number] Self [id number] [facility] [id number] SP [id number] [facility] (pr) Medigap Part B [id number] Self UMR [facility] [id number] SP [id number] [facility] MEDICARE DIVISION [id number] S [id number] [place] MED[place] [id number] S [id number] [place] [id number] S [id number] MEDICARE A [id number] Self [id number] MEDICARE [id number] Liv [id number] MEDICARE [id number] SP [id number] A [place]IC[place] [id number] S [id number] MEDICARE [id number] Liv [id number] A MEDICARE A [id number] Self [id number] A MEDICARE [id number] Liv [id number] [place]IC[place] [id number] S [id number] [place] MED[place] [place]ISION [id number] S [id number] U [id number] Spouse [id number] Liv [id number] Liv [id number] [facility] (TFL) Medigap Part B [id number] Family Dep endent Medicare Dme Supplies Medigap Part B [id number] Self Medicare [place] Primary [id number] Self [facility] Life Medigap Part B [id number] Family Dependent 1 [id number] WPS For Life Medigap Part B [id number] Family Dependent 1 [id number] UMR [id number] S [id number] [facility]OM[facility] [id number] SP [id number] FOR LIFE [id number] HU2 [id number] [facility] [id number] SP [id number] UMR [id number] S [id number] UMR U [id number] Self [id number] FOR LIFE U [id number] Spouse [id number] FOR LIFE [id number] 114 [id number] FOR LIFE [id number] [facility] [id number] [facility] [id number] SP [id number] [facility] Commercial [id number] Self [id number] ANSI-Medicare Part B [id number] ANSI-Commercial [id number]-[id number]-[id number] ANSI-Commercial [id number]-p79o-4096-[id number]-j01v-3263-[id number] ANSI-Commercial [id number]-[id number]-7qbe-[id number] ANSI-Commercial [id number]-vcvw-6jux-e1ex-[id number] 55e989fg-shnd-0gcx-n3ww-[id number] ANSI-Commercial [id number]-[id number] 52va36a1-3363-993g-95ci-[id number] ANSI-Medicare Part B [id number] ANSI-Commercial [id number]-[id number]-6d3j-30b6-[id number] ANSI-Commercial [id number]-1002-64387ksmbf8m [id number]-4910-21399bbebh7w ANSI-Commercial [id number]-[id number] 5j9knm09-60h0-6n15-22ua-[id number] ANSI-Medicare Part B [id number] [facility] [id number] [facility] [id number] ANSI-Medicare Part B [id number] ANSI-Commercial [id number]-l20p-06y0-1e9f-[id number] 5g87gt31-c44y-16s6-2l9m-zsu2u76g0z49 ANSI-Commercial [id number]-46q3-bs07-72nra42l8u04 7j3q5564-0j8b-69e0-uj72-17pcr47i9k58 ANSI-Commercial l50o8h33-364t-5b83-[id number] v21x1e97-006g-7y56-e445-5c703b1793ue ANSI-Commercial 500u2416-52g6-6r5u-5j56-2d16d7i9o467 [id number]-8u65-1f63u2o0n979 ANSI-Medicare Part B [id number] ANSI-Commercial 44kji391-87x4-0726-t5gr-89074g36r11k 84wsl444-55g3-4006-c0cj-94137v82t89x ANSI-Commercial t5zz4c75-676c-5527-u024-0k07y2p0h9z1 z9yw0l55-040f-4840-v108-7g59t7k0q4v5 ANSI-Medicare Part B [id number] ANSI-Commercial 8yb7n1d1-6r1e-6337-5901-[id number] 2ci9a7x9-9f9h-5567-1474-wa63l8h003o4 ANSI-Commercial 7mhm8229-k628-60t6-v121-96isb1xs1596 9qoh1040-q733-70e5-q543-35lcm9ut9051 ANSI-Commercial erj221k6-016b-1250-e31v-u9iq8224ige0 nxu445k0-297f-3036-d33t-g7ag1108roo4 ANSI-Commercial a430a672-85c4-09o9-h487-80kp16jqyke5 a821w975-58j3-88r3-c742-95sj02cfnge1 ANSI-Commercial m79e39hq-xx3y-3187-x536-9d4mh5vf4013 v45f36ee-xj9h-8243-t432-2l9cd1db2814 ANSI-Commercial z86vj5ig-20xa-2nz0-0t1o-348v6p443z30 d89zf1nz-94jd-4qo7-3v8e-223h6p595m66 ANSI-Medicare Part B [id number] [facility] [id number] Family Dependent [id number] r [facility] [id number] Self [id number] Medicare (Part B) Medicare Primary [id number] Self [id number] ANSI-Medicare Part B [id number]-[id number] ANSI-Commercial 90h7u946-79t0-484o-3qd0-82945wv8q143 42y3c353-18x4-426o-2zy9-67428uq3p844 ANSI-Commercial 98j3uv2u-6101-9104-k57w-3b7g52p19o7i 39c2hz3s-0670-3727-z50q-4j8s93t41w9y ANSI-Commercial 9107dh46-0742-7507-l062-85g529r413z6 2821pv21-8190-9649-z552-12r870x113w8 ANSI-Commercial 0z5w8xt1-3i73-6821-28vv-264p68440l79 0l6o6uc5-0h21-0334-49xy-933z16593o46 ANSI-Commercial tw09q9bq-s5jh-2l17-ah21-izwg4f949239 mu31g4tc-w2xz-9f27-wp42-gprc5u665226 ANSI-Commercial [id number]-1vy1-3533-461ys3m5e4n1 267k7808-67ld-9ad3-3773-081gu3w1p3n1 ANSI-Medicare Part B [id number]-57if-y8fg-[id number] ANSI-Commercial 2y43q2b4-z6r6-7917-uw70-v2qn2k6694ye 7l34g4a5-z0g2-5668-mx79-r2hx2v5533zt ANSI-Commercial 1ck5ig2m-bs24-042s-1335-e0y4v9x0088q 0ec2uh7r-ft51-893r-8872-d5b4p5m0052n ANSI-Medicare Part B [id number] [id number]-5362-b9ww-4w0s19v7c4tm ANSI-Commercial m6j18wu1-1ubr-4262-r9n0-1493472vio2t l8e21vn7-9kkw-6574-e3j6-6159911yhw2u ANSI-Commercial j5y00535-v22e-038a-ts66-etyfz6v9l5x0 z4m26625-a80b-727k-et01-kxijv5j8v5u3 ANSI-Commercial 568y69d5-2689-47g1-wd71-847p57zyyu16 873r70r9-1821-98z6-uk83-526k77umex28 ANSI-Commercial 2680wvzb-843w-4n133u54-3q58-3030x60919qq 2167abwt-720f-2v766z31-8n75-1198h38639yw ANSI-Medicare Part B [id number]-t247-43n6-6syy-u9o05scjw99q ANSI-Commercial db671g88-3437-8g9n-25ak-36t772kbnm8m qd019d28-5048-7e6c-56fy-87p572rnxi4q ANSI-Commercial 079701i3-2x70-8b52-5c59-0x7l8104718b 705476t9-3c38-6p27-8u92-6s1l8582511t ANSI-Medicare Part B [id number]-29t6-[id number] ANSI-Commercial 1008v66b-44k2-10n6-m495-mf3i896y028c 4581p57o-89a0-40w0-p799-du9c843a926j ANSI-Commercial w075m1j1-56yl-54aa-3341-yiee3a337657 j903z4y1-98ke-53cg-0821-fgpu1w386129 ANSI-Commercial cuqrn23e-5a01-09uu-s598-68tm982xg785 cryko35n-6o84-96ij-x511-11zr069ak840 ANSI-Commercial 37he3fi5-5692-750z-szn8-873vc29l4h6t 88hh5zu3-3752-119u-htc0-921fi94j3i4y ANSI-Medicare Part B [id number]-018u-h40g-45j0250s36g6 ANSI-Commercial 8273251w-o4yt-8ylw-vlh5-39u06vm31c5n 3672076q-x5od-5gry-ijz5-35a87is38u4i ANSI-Commercial 2939v434-0b86-2y80-80zp-e7tu9y8s9i33 3302y715-6w88-4v27-93fg-v9fn7m8i2o91 [facility] [id number]-[id number]-pu4j-[id number] ANSI-Commercial 195r4qu2-048k-770d-6zf5-5a559h93418z 827v2uj5-970i-548e-7ws0-9i826a53872e ANSI-Commercial q3217k08-1763-2s8j-w0gz-v2855q268x9b l2874p57-6252-6w0i-p0lz-h2074w699k4m ANSI-Medicare Part B [id number]-[id number] ANSI-Commercial 52l4m310-6zk5-73d3-il09-p8j9u7pk331x 01l5o714-5de0-24w4-we90-l6i7j1cr763o ANSI-Commercial joi27360-f045-031i-h646-l72516o391mt gnt35026-e876-917a-x932-a42248s781ek ANSI-Commercial 97sp4343-29a0-3413-276b-e33i0w3749o2 26qj4452-83k9-7412-099t-g42n2d4494f2 [facility]-Medicare Part B 14f486e6-6p27-79de-5865-u5a24rcvs3i1 25j073w0-0u72-29gb-7724-d6z87mxsn4l2 ANSI-Commercial a00208kz-wb9c-8m2e-168x-k02l3k80ch20 u34541ic-ad2w-0r5q-331a-k96b9t04jl56 ANSI-Commercial n051vo72-4j6p-4936-x52m-m3u8641680b5 d747kh58-0j1e-9284-f10l-l0g4697011w3 [facility] r96ut4d4-621d-4094-4i7b-vdh09oxv677j r64hd7e6-811c-2929-7z1n-qec30wtg307l ANSI-Commercial lwny1613-25l9-13c0-rh71-05e428c8p27k lfht0152-62l1-92o6-bv63-48l542o1v43g ANSI-Commercial lf9hxr47-a55j-24gi-1lx0-g249e77gv0kt ms8ocd01-p01b-37vn-8ud6-l816m66gu4ki ANSI-Commercial 51616h46-55it-8p46-377x-63if2zv81839 49010o55-87nu-2q68-912x-88yc2jl61361 ANSI-Commercial v0k2d2we-3929-8o87-r5ce-521r1w9u170i v3m4e5ah-1847-8l85-v6mi-959i9g0y696k ANSI-Medicare Part B l4fu4lp7-f4d1-7373-84nu-q6ka03bf081p m6kd8jj2-y9a8-9506-63cj-m6af82qn486c ANSI-Commercial q0lh814t-6335-8753-y76s-0134bd0vm387 d0gs450s-9904-0334-e15n-0172ov0lo876 ANSI-Commercial 3kvk3776-z7z4-7367-68xz-5j9o7ibo9tm9 2ekp3819-n2s2-1083-82yq-6z8m5tnq7sa9 ANSI-Commercial 62a8g7n8-8s70-25x7-e168-xmvkgw4281rd 22r9n4h7-1k41-63c1-w915-pzabfs6504mc ANSI-Commercial f45r2593-739q-0h26-7r5m-0i0150xj6881 m64o1549-796z-7e93-1z3z-5t7782jp3813 ANSI-Commercial p46zb70y-15fs-9306-4gs3-z67a4y495p1f u29om88h-38ly-5625-9ty1-v09b6q954o1x ANSI-Medicare Part B y4v2i4vx-61x6-6u96-2311-3zxi6m590999 r7f0e7lb-26w0-4d15-5634-5ygo0n807456 ANSI-Commercial 8754o820-6052-69fn-a095-y532vf2mcir3 2935j453-9837-87gc-g487-w346cc9mgie8 ANSI-Commercial y33g6840-45k7-62jq-o0ny-c21b5ium71x9 p52y4370-25u8-53wx-d3xo-a85h6kyf41s1 ANSI-Commercial 76s767db-7yur-56m1-0f2x-99i01523s00a 03o687oq-1jma-10q7-9w0q-16t03018l65y ANSI-Medicare Part B 21q8p7h8-2e08-96z0-x368-3bs453z60ny8 72v8t3e7-2b01-05i5-e329-7qw235q57gc5 ANSI-Commercial oo12h6f8-i98k-48tb-mw6q-90lxx157j8rf ba40y9g7-j02x-38zf-bs6w-97ems269f4np ANSI-Commercial av2iyvs4-3c7z-1i5j-91h0-3p6j5oh4677o om8ziou6-8d7x-2d4y-64z1-1u1e6ei6133g ANSI-Medicare Part B puh371q7-wr1k-8b29-z7zw-2fr5g7291k3s ovy877b9-os2p-9q05-n3qp-4vk2h9509r1j ANSI-Commercial hf6h912q-4265-9nn7-o136-91jx4v49zn1r oa8z117a-1756-0dh8-k293-08kv8e37il3z ANSI-Medicare Part B d3b213k8-xqb9-6146-09c1-3jx34852x14l l6y585e9-sjn5-4859-56m3-8hm05952l24n ANSI-Commercial n60g214s-4oj6-8f4i-6749-443wc4zwj400 t66w707t-6ld5-2x7u-9289-730kq2lqm470 ANSI-Commercial 567v46nj-a9q5-6226-p534-r5b9103h9skm 625d92ou-d7j5-4428-i928-e3l1795w2slr ANSI-Commercial 6e2183xp-07u9-1665-588p-y5084bxd2873 1b3608bn-37g5-2440-830f-t6079wrp9352 ANSI-Commercial 64q8d381-zn5v-3h33-6402-46u67546xhy1 19n7h059-aq2q-4a54-3662-46e81515cgs3 ANSI-Medicare Part B f025qc27-06j7-10t4-78kw-z52v03ve6hkj q025fd72-71g7-96g0-64kd-x73a63hp7lwu ANSI-Commercial 9rw2k07c-ah54-6u85-dq4g-81980phxh49i 5vd2t29x-ki76-2q20-rt8y-57293iroa47b ANSI-Commercial o47k23qc-c48x-54x5-a048-534352739x67 u08r30dy-r86s-78b3-i047-246676544d55 ANSI-Commercial d003hwah-zh43-2tef-nkz6-fwp0681628tq z078ozha-pw00-6jwh-bdy8-isj9150168px ANSI-Commercial qr35469c-e8dr-4rn1-g28e-6kq7lq820qrj nm47520d-r9bq-0jp4-r97a-7qa3ol383oox ANSI-Medicare Part B g77h477l-9d0e-8026-ezf8-5rn2p3fp85y8 k35f348m-0g4s-0323-ito0-1pj9g3ht82t0 ANSI-Commercial 6xs3u8ah-5r8a-9u61-7q32-623px8di5c1k 7vj1q4bz-4a9s-7i16-1r40-809cp2hf3c0s For Life - [place] Medigap Part B [id number] .1.069205.3.227.99.572.39772.0 Family Dependent 1 [id number] [place] Medigap Part B [id number] .1.093055.3.227.99.572.303 39.0 Self [id number] Medicare (Part B) Medicare Primary [id number] .1.056665.3.227.99.572.71963.0 Self 2 [id number] ANSI-Commercial 95g64675-90ck-4oh1-9462-7656qk6594b1 29w34958-86nj-6jm5-5147-5379aj8728s2 ANSI-Medicare Part B 55576o87-q8ci-6941-q021-804ta3375a3f 45413p61-x9tx-6216-d344-654wk5254y7z ANSI-Commercial e16ww130-99ph-9n30-z7l0-870p4244p035 s88ca161-67cx-0i18-d9n2-116h8533h291 ANSI-Commercial 41a962z3-35du-1902-62ve-69ja2j184217 26r628x4-85tt-7433-44vg-86yn1s038256 ANSI-Commercial 5x9j58dv-9240-73g6-ow2w-33t0c7yt648p 9s1f36cu-1506-61h9-tq2x-80k1t2uk041c ANSI-Commercial 488215q5-r5yy-451m-suk5-0a0282000o50 432625i5-q2kn-365r-svh3-9k7915061h36 ANSI-Medicare Part B 462yix8z-1360-0695-5m1v-2j18ip0972bj 814vez0k-9851-2202-9q8d-7q05cs3180yp ANSI-Commercial 98oelj4x-4b2x-2lm9-e1d6-35af57977js6 85kfzo3e-0u2r-7ee9-k7n7-04ey46480dv4 For Life - [place] Medigap Part B [id number] 2..1.413559.3.227.99.572.99241.0 Family Dependent 1 [id number] [place] Medigap Part B [id number] 2..840.1.343603.3.227.99.572.303 39.0 Self [id number] Medicare (Part B) Medicare Primary [id number] 2.16.840.1.749710.3.227.99.572.14095.0 Self 2 [id number] ANSI-Medicare Part B 2860qk3r-6163-8ri5-l61g-f1y4u666qt46 6684bv1a-7560-1tt0-f25y-u5x9w278zn68 ANSI-Commercial 7g229o41-0y56-1556-z87n-zr2t0n421e39 4g471r76-9z69-1088-s85e-sq3k3x907e56 ANSI-Commercial 5092k1c9-57mt-8v08-022w-516833125521 1724t3q2-71ot-4o78-544w-714200990732 ANSI-Commercial 22i8w121-0c76-7498-q8g4-li6zq08lz0xb 31x9q598-3f87-6543-o5f2-ua5oc12bj9bn ANSI-Commercial xzu43nq2-897p-708p-r222-0a4882q75460 dua26io9-338a-465b-h539-6z3804g88331 ANSI-Medicare Part B [id number]-803h-8oz3-06d9ewka3961 244hi899-473w-142f-5ig4-65s3bsvc3880 ANSI-Commercial 6u4ux6t4-8281-5j47-b81a-3d754s3u3585 8f9ou6e1-1907-1m51-d33w-8n909f4z3399 ANSI-Commercial 3cf108qh-x581-5443-x426-00fh1k07z681 2ks127ro-r999-5523-o679-87bg3z15t799 ANSI-Commercial 7lu00w6o-bcr1-5275-z583-v992fmu16d09 9im97u7c-prr5-5678-r351-q175yfr66h44 ANSI-Medicare Part B [id number]-73lc-s1y0-59t92qrpd0f2 1z4a49k7-989j-41du-p2r3-93s04swxg8s4 ANSI-Commercial cth7adbg-619w-856z-f781-3563ij02zbw5 jwx6wvsc-389p-118n-y627-6431ei05yyl8 ANSI-Commercial 26kl33l6-518s-47u5-9539-5im04iij6s77 16dk96a0-105c-60z6-9310-8go75yao5x67 ANSI-Medicare Part B [id number] [id number]-lsq0-7435-422m-3vmn0663a592 ANSI-Commercial 232500e3-7l31-0t80-k486-4w07469q2700 988311c0-4t73-1h09-m215-3t16017j4776 ANSI-Commercial vml507jg-0ji9-92n9-tnf0-ldq4190w4b78 txb644us-1fp4-48z9-foi8-suf9154z7y33 ANSI-Commercial 59t526h7-ly64-2c00-802i-s5w7dq4z98f2 57c528w4-oh69-6z80-163t-w3k4cp2o07p9 ANSI-Commercial 6e849a5q-hei5-1d19-2i57-9716r600stq3 2h177j1e-rpf1-5m87-3t44-3984r985sly2 ANSI-Medicare Part B [id number]-p6fhz6qa790e y14253x1-5529-4002-049b-p6cgd6dc940s ANSI-Commercial e2a1a1f1-601c-8034-fz23-8ntqm7n1370y v7n6w6y4-430d-6148-br12-0ciur3l8617s ANSI-Commercial 9875527g-00z7-4w63-d5e7-d29214c2z2k0 4196327w-13j7-9g95-d5c2-w74068h0q4j0 Health [facility] Fed Standard Health Maintenance 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 (HMO) 11 [id number] 2.16.840.1.244618.3.227.99.8646.8124.0 Family Dependent 1 [id number] Ghi Medigap Part B [id number] 2.16.840.1.257688.3.227.99.8646.812 4.0 Self [id number] [employer] Medigap Part B [id number] 2.16.840.1.108837.3.227.99.8646.812 4.0 Self [id number] Medicare [place]/[facility] Medicare Primary [id number] 2.16.840.1.962398.3.227.99.8646.8124.0 Self 2 [id number] ANSI-Commercial bi83oax4-21a2-4f33-xk3v-rt6d4752k35u xj26tzl9-22z7-9f90-tw2j-vf4s0863l67e ANSI-Commercial q46n7dg3-6t53-1953-972x-vg8z87z1c139 x41w8nt2-2p99-4723-592s-ln7i34z8e421 ANSI-Commercial f523n88k-l381-007w-gp6o-lf8ic61f76m7 y800k78w-l792-596f-ei5m-gg3ti84o84e3 ANSI-Medicare Part B [id number]-8it6-[id number] 3l3ec1q5-16yl-0mr2-s315-462v68658257 ANSI-Commercial 74k73517-3i5z-9t31-4o35-l74811635t59 76o35771-2i4m-4r18-9w68-c55682271g57 ANSI-Commercial 47iyplg7-x6gg-3189-yl91-ot7m6u6720mf 58jpoqe1-w3rk-4170-tc45-vl5i8q2770ac ANSI-Commercial 982n6316-7lj0-9lc0-8523-2wf7500c9970 276b2616-5wl0-7mj8-9187-4jh8034g4577 ANSI-Medicare Part B h09wh5v3-tr22-9891-v6s8-p6jea1h7ab32 i64ec3d9-rk21-2036-g1x8-s1xxo4p4gh85 ANSI-Commercial 068ifcic-1022-8189-944d-buf3k8rkp96v 305tkygr-9328-7871-944d-crn6v5rik24f ANSI-Commercial qzk7ob45-1176-7km0-262i-0azy1baq0l36 dtu3nn20-4780-9lj0-530p-2fjx2ner8o43 ANSI-Commercial 0gty3tm2-57i0-0849-6eu6-1q0m9074ka72 6bwl9pg0-60r2-2248-2vy4-4d0o6967zr79 ANSI-Medicare Part B yr5q4128-2mj6-20p8-v31k-ci374hj1n50r jh9q9480-4pd4-38d4-t92s-nq588xw1p58s ANSI-Commercial 4ky6643r-571p-1245-dnb9-ba2757dc21ve 4iw7708k-550w-8220-juf8-ga5297ur12il ANSI-Commercial 9n96pi3f-350c-73m5-mn31-3271225z714i 8n45xr3o-640h-76z6-dh90-5680546m922l ANSI-Commercial 37688026-x99m-1512-s716-59f773ew89uy 56608586-p69z-8914-l459-01n060sd03rm ANSI-Medicare Part B [id number]-414r-6875-ot08-6bmy8722891q 4vb046lz-899t-4361-mj46-0ktl9173514k ANSI-Commercial i80wf3ys-i9m1-20q9-2b94-520z239s96b3 r94ul8tq-p7i4-69s1-2j88-071a427l97t6 ANSI-Commercial 9467a595-q85m-9893-815b-38hn7jp8692l 7904g808-k16s-1899-387c-93av5ql0943a ANSI-Medicare Part B 780c32z2-27wm-2d38-7q03-19riu2s960v4 484g03h6-33ol-9o99-0f37-78yex2o268y3 ANSI-Commercial jww29w8z-v7ad-9c59-5r7u-81l3xq710n30 noe80y1j-m2el-7l63-0t7d-16p1le615s81 For Life - W[facility] Part B [id number] 2.16.840.1.405013.3.227.99.572.15239.0 Family Dependent [id number] [facility] Part B [id number] 2.16.840.1.634747.3.227.99.572.303 39.0 Self [id number] Medicare (Part B) Medicare Primary [id number] 2.16.840.1.172859.3.227.99.572.60986.0 Self 2 [id number] ANSI-Commercial 1j30z811-i7h1-8608-2umy-gj21prrt7937 2v55o327-z5d6-6007-1ymo-eu15nafd8085 ANSI-Medicare Part B [id number]-559t-83e0-xljf-fe78216x2vu9 o0hr369r-224i-48l8-brts-co94807a6et9 ANSI-Commercial 7gye5vg4-5674-88s8-d812-5110p0b71a81 7nug4pp3-7098-64z9-o183-9704e2k41s93 ANSI-Commercial 39n913f5-6jm8-12r0-k703-0422235pe7uq 86n617t5-2rz3-26r0-c965-5988592di0hf [employer] [id number] S [id number] MEDICARE [place] [id number] S [id number] ANSI-Commercial 0j64514c-5878-6xy3-9nr4-2c753bz2b863 2h04414b-8887-3jl3-9nr5-7j626kn0l378 ANSI-Medicare Part B [id number]-6c17-zs3z47139l3q a9379y98-0e98-339l-6s25-zt6u36519w8v ANSI-Commercial m92m71u1-56pa-7ymj-i2u6-3vxo68kyj1zq y92r31e1-03jc-1fnz-u5o0-0zhr65ogf2ld ANSI-Commercial i290v859-a076-14ft-khrr-90358j4bz059 o355z241-k649-43ze-mejb-00960t4yt676 [facility] [id number] [facility] [id number] MEDICARE [id number] SP [id number] A ANSI-Commercial 2e157t48-c591-82d2-41g9-7r0m074j526h 8w445a13-m225-79r0-86m3-6c7o731n429n ANSI-Medicare Part B [id number]-860702a97065 4vw24638-08j8-2279-8hsu-360871m16191 ANSI-Commercial 389v086b-4qd9-797g-u8v9-e4fn2217157b 750i502d-5zx8-930w-j5h6-v5ks2180393y ANSI-Commercial 9w2349d3-cmjz-3l5o-ulh1-d9d19b3b6l29 3r0509j6-ldnr-9p5v-zeg4-s1g74u6i1f67 ANSI-Commercial j8f10223-0509-3f63-s613-270x1pdrxc5f o4x80056-9315-1f16-r732-213n1ekudi6j ANSI-Medicare Part B [id number]-b740-47xy-gl78-40232o011620 9y65g195-z871-48ce-xf24-92083m018902 ANSI-Commercial 7f88r43h-079v-5130-ro35-7g97ywv6q51i 1x75z60n-988u-3538-jb62-9q09ulm8b15f ANSI-Commercial 000ggt76-hiy7-217c-r510-563s28411209 016jwc00-oul4-452u-x076-734t09406101 For Life - WPS [facility] B [id number] 2.0.1.021790.3.227.99.572.04904.0 Family Dependent 1 [id number] [facility] B [id number] 2.0.1.066734.3.227.99.572.303 39.0 Self [id number] Medicare (Part B) Medicare Primary [id number] 2.0.1.965900.3.227.99.572.11877.0 Self 2 [id number] For Life - WPS [facility] B [id number] 2.160.1.555077.3.227.99.572.41366.0 Family Dependent 1 [id number] [facility] Part B [id number] 2.0.1.702036.3.227.99.572.303 39.0 Self [id number] Medicare (Part B) Medicare Primary [id number] 2.0.1.275485.3.227.99.572.49679.0 Self 2 [id number] ANSI-Commercial hvc535vq-1h58-63ve-9h42-z34tm440k016 yux929oz-3q39-56hc-4y55-x41ob884f577 ANSI-Commercial v670gu67-7f69-9s03-b3b1-48o5lcw8rt60 r632ve44-3y46-5n95-k7k6-34j3usv0lu72 ANSI-Medicare Part B [id number]-3085-528c-o170-03230o34f41w huz3178k-4386-908q-v854-29996y58i58x ANSI-Commercial 27zbk4p3-0a81-3kb5-xs90-2i1318073062 84kat5f5-0i97-0fq9-rw65-1f2293571482 ANSI-Medicare Part B 382087b6-18p0-1e35-qg7y-9585b0c5955l 998647y8-92b8-2q95-qt5b-7505b8z4370t ANSI-Commercial 289802kh-11i1-630b-98d4-r8c66s0w15qv 044649qn-12k9-274e-44k9-t2k56n1f67lq ANSI-Commercial 16874356-8jo8-0059-a012-8rh4woe08c3r 52610301-3qj9-8073-e363-9uf0des18i6x ANSI-Commercial 5224c406-q8w3-1v18-u150-tz83u9eh2j55 8338k133-d3m8-2k01-d231-gn11j5wm9i92 For Life - WPS [facility] Part B [id number] 12.22.830.1.749424.3.227.99.572.24345.0 Family Dependent [id number] [facility] Part B [id number] 12.22.830.1.634412.3.227.99.572.303 39.0 Self [id number] Medicare (Part B) Medicare Primary [id number] .0.1.163730.3.227.99.572.66434.0 Self 1 [id number] POMCO [id number] SP [id number] [employer]OM[employer] PPO O [id number] S [id number] MEDICARE C [id number] S [id number] A [place] - PHYSICIAN [id number] 01 [id number] POM[employer] -PHYSICIAN [id number] 1 [id number] MEDICARE PART A -O [id number] 18 [id number] POMCO -O [id number] 18 [id number] MEDICARE PART A -I/P [id number] 18 [id number] [place] - I/P [id number] 01 [id number] POM[employer] -O/P [id number] 18 [id number] N [facility] [id number] 01 [id number] For Life - WPS Medigap Part B [id number] 2.16.840.1.024986.3.227.99.572.24512.0 Family Dependent 1 [id number] Medicare (Part B) Medicare Primary [id number] 2.16.840.1.834972.3.227.99.572.60925.0 Self 1 [id number] [employer] PHCS Ppo Medigap Part B [id number] 2.160.1.511338.3.227. 99.572.42147.0 Self [id number] For Life - WPS Medigap Part B [id number] 2.16840.1.783252.3.227.99.572.73879.0 Family Dependent 1 [id number] Medicare (Part B) Medicare Primary [id number] 2.16.840.1.500552.3.227.99.572.83345.0 Self 1 [id number] [facility] Standard Health Maintenance 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 (HMO) 11 [id number] 2.16840.1.684408.3.227.99.8646.8124.0 Family Dependent 1 [id number] Ghi Medigap Part B [id number] 2.16.840.1.068621.3.227.99.8646.812 4.0 Self [id number] [employer] Medigap Part B [id number] 2.16.840.1.578930.3.227.99.8646.812 4.0 Self [id number] [place] Medicare Primary [id number] 2.16840.1.106165.3.227.99.8646.8124.0 Self 1 [id number] For Life - WPS Medigap Part B [id number] 2.16.840.1.031977.3.227.99.572.82984.0 Family Dependent 1 [id number] Medicare (Part B) Medicare Primary [id number] 2.16.840.1.973466.3.227.99.572.76139.0 Self 1 [id number] For Life - WPS Medigap Part B [id number] 2.16.840.1.574025.3.227.99.572.75892.0 Family Dependent 1 [id number] Medicare (Part B) Medicare Primary [id number] 2.16.840.1.837655.3.227.99.572.14186.0 Self 1 [id number] POMCO [id number] SP [id number] MEDICARE [id number] SP [id number] A Medicare (Part B) Medicare Primary [id number] Self For Life - WPS Medigap Part B [id number] Family Depen dent [employer] Medigap Part B [id number] Self Medicare Medicare Primary [id number] Self [facility] [id number] HU2 [id number] HEALTHNET/ AD O [id number] P [id number] [facility] [place] O [id number] S [id number] [facility] O [id number] U 1 [id number] POMCO O [id number] S [id number] MEDICARE OUTPATIENT M [id number] S [id number] HEALTHNET O [id number] U 00 [id number] MEDICARE [id number] SP [id number] T96 [id number] [facility] [id number] SP [id number] FOR LIFE [id number] HU2 [id number] MEDICARE PART A -O/P [id number] 18 [id number] R -O/P [id number] 18 [id number] [place] - O/P [id number] 01 [id number] [facility] [id number] SP [id number] Humana [id number] 0 [id number] [facility] [id number] 0 [id number] Medicare Part B [facility] [id number] 0 [id number] FOR LIFE UNAVAILABLE 01 U NAVAILABLE RHC MEDIC[place] [id number] 18 [id number] [place] [id number] 18 [id number] MEDICARE [id number] SP [id number] MEDICARE [id number] SP [id number] UMR O [id number] S [id number] MEDICARE C [id number] S [id number] FOR LIFE O [id number] S [id number] MEDICARE PART A -O/P [id number] 18 [id number] [employer] [place] Other 0 [id number] Self 0 Medicare Part B [facility] Other 0 [id number] Self 0 ANSI-Commercial [id number]-qc6u-92w1-303b-[id number] 43065x91-wk8o-02g8-474x-30lv0628x9q8 ANSI-Commercial 0e360z08-737v-0489-c994-b63m352v2f84 5z364g18-218l-4612-e114-m87z291h9m85 ANSI-Commercial 5r77n44n-q267-48ei-xx87-qv69yin4m5g5 2m21e94m-w483-89ai-ad00-zg57lgp7c8t7 ANSI-Medicare Part B [id number]-[id number] k8h1jhb1-9834-3ig9-yr02-774k16p63856 ANSI-Commercial 60144afz-a30d-9dx8-a94f-858qh3tukc2y 08706hvg-y81v-5rx5-w80f-682yv0acly4l ANSI-Commercial 4d204125-42pg-5143-r10a-d52q23032362 8o511105-09ll-2546-g02f-o49i28839485 ANSI-Medicare Part B [id number]-b9a2-36824b91z2pt [id number]-u144-1a77-x8j6-75792n03i9pe ANSI-Commercial f7423l1y-s405-62fp-pe79-01o8q139d0xc l8993t5i-s384-07ho-jt97-93t5w575h6cy ANSI-Commercial 5p913895-0k4z-2841-8bk8-3o66p94t37vy 3l439415-6m0u-6144-3vo3-4i69x29t51nw ANSI-Commercial 673017cr-8692-2841-4j76-6e0s7g488l89 785416me-9305-2828-4h99-5w4b3y908t35 ANSI-Medicare Part B [id number]-h41f-0529-s958-[id number] n5o1sd38-z14v-7286-v521-fx6h6u65h758 ANSI-Commercial 3o4s3617-i5z1-5a7o-1vu6-148978d10q98 2b2z8084-l0u8-7a7u-4it4-696223s83d98 ANSI-Commercial n3b2w93g-g4g0-688i-7547-9cu466507xh5 y0c5v50t-l0t1-779u-6814-0iu522895qd5 ANSI-Commercial v136bj01-9x36-573r-kq98-482al6pu877h h767ri84-9d74-360f-tv37-774ec1jz521g ANSI-Commercial 068f4813-946t-3o36-1sv7-0uoi57d21r7p 476d2521-158j-3b41-4pm3-3iws57j53c5l ANSI-Medicare Part B [id number]-[id number]-5k14-8a3b-q4l8-00ni7bv088n0 For Life - WPS Medigap Part B [id number] MRN.572.x63n74o6-9b47-9924-82kf-m5375wke0xet Family Dependent [id number] r Medigap Part B [id number] MRN.572.b94h86t9-5l38-3161-40iv- t1903qlg6vvh Self [id number] Medicare (Part B) Medicare Primary [id number] MRN.572.v30l98j1-3g45-0465-92zb-q6954dll6lag Self [id number] [employer] PHCS Ppo Medigap Part B [id number] MRN.572.t59n87n8-8x65-6255-55op-q3112uxx8byc Self [id number] ANSI-Commercial 824le1hs-c78b-4378-1l4v-1les6y9e7e38 393qx5tv-g49z-6259-3p0g-2hct1h1q4f59 Problems, Conditions, and Diagnoses Code Display Name Description Problem Type Effective Dates Data Source(s) 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 R80.9 Proteinuria, unspecified PROTEINURIA, UNSPECIFIED Diag nosis 08/02/2021 11:33:00 AM [facility] E83.52 Hypercalcemia HYPERCALCEMIA Diagnosis 08/02/2021 11:33:00 AM [facility] N18.30 CHRONIC KIDNEY DISEASE, STAGE 3 UNSPECIF CHRONIC KIDNEY DISEASE, STAGE 3 UNSPECIF Diagnosis 08/02/2021 11:33:00 AM [facility] N18.32 CHRONIC KIDNEY DISEASE, STAGE 3B CHRONIC KIDNEY DISEASE, STAGE 3B Diagnosis 08/02/2021 11:33:00 AM [facility] R109 Unspecified abdominal pain Unspecified abdominal pain Diagnosis 05/31/2021 03:28:00 PM EDT [facility] 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 Co mplications of stem cell transplant Diagnosis 05/16/2021 10:55:00 AM EDT [facility] [id number] Nhpaz-eyfvyu-uexl disease, unspecified G ptms-dhjowa-ivcf disease, unspecified Diagnosis 05/04/2021 01:00:00 PM EDT [facility] D471 Chronic myeloproliferative disease Chronic myelo proliferative disease Diagnosis 05/04/2021 01:00:00 PM EDT [facility] 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 Diagnosis 04/05/2021 01:18:00 PM EDT [facility] D7581 Myelofibrosis Myelofibrosis Diagnosis 10/05/2020 12:00:00 PM EST [facility] [id number] Essential hypertension Essential hypertension Problem 05/31/2021 12:00:00 AM EDT [facility] ([facility]) R13.10 [id number] Dysphagia, unspecified type Problem 05/04/20 12:00:00 AM EDT eCW1 ([facility]) F43.22 [id number] Adjustment disorder with anxiety Problem 03/26/2021 12:00:00 AM EDT eCW1 ([facility]) E27.40 [id number] Adrenal insufficiency Problem 02/18/2021 12: 00:00 AM EDT eCW1 ([facility]) R94.31 Electrocardiogram abnormal Electrocardiogram abnormal Problem 02/10/2021 12:00:00 AM EDT [facility] (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 Problem 01/19/2021 12:00:00 AM EDT eCW1 ([facility]) F43.23 [id number] Adjustment disorder with mixed a nxiety and depressed mood Problem 11/17/2020 12:00:00 AM EST eCW1 ([facility]) Surgeries/Procedures Procedure Description Date Indications Data Source(s) ECG ROUTINE ECG W/LEAST 12 LDS W/I&R 02/10/2021 12:00: 00 AM EDT CÉSAR ([facility]) Results ID Date Data Source [id number] 09/21/2021 09:16:00 PM EST [facility] Name Value Range Interpretation Code Description Data Aminta rce(s) Supporting Document(s) SARS coronavirus 2 RNA [Presence] in Res piratory specimen by VERONIQUE with probe detection NEGATIVE [facility] This lab was ordered by [facility] a nd reported by [facility]. ID Date Data Source [id number] 09/21/2021 02:10:00 PM EST [facility] Name Value Range Interpretation Code Description Data Aminta rce(s) Supporting Document(s) COMPREHENSIVE METABOLIC PANEL [facility] COMPREHENSIVE METABOLIC PANEL Sodium [Moles/volume] in Serum or Plasma 134 mEq/L 134 - 153 [facility] Potassium [Moles/volume] in Serum or Plasma 3.5 mEq/L 3.6 - 5.0 L [facility] Chloride [Moles/volume] in Serum or Plasma 94 mEq/L 98 - 107 L [facility] Carbon dioxide, total [Moles/volume] in Serum or Plasma 29 MEQ/L 22 - 30 [facility] Glucose [Mass/volume] in Serum or Plasma 197 MG/DL 70 - 99 H [facility] BUN 61 MG/DL 7 - [facility] Creatinine [Mass/volume] in Serum or Plasma 2.7 MG/DL 0.7 - 1.5 H [facility] BUN/CREAT 23 8 - 27 [facility] Protein [Mass/volume] in Serum or Plasma 6.3 G/DL 6.3 - 8.2 [facility] Albumin [Mass/volume] in Serum or Plasma 4.3 G/DL 3.9 - 5.0 [facility] Globulin [Mass/volume] in Serum by calculation 2.0 GM/DL 2.4 - 3.2 L [facility] A/G RATIO 2.2 0.8 - 2.0 H [facility] Calcium [Mass/volume] in Serum or Plasma 15.4 MG/DL 8.4 - 10.2 HH [facility] CALL/ READ BACK NEISHA WEIR/15.4 [facility] TEST REPEATED AND CONFIRMED BY: [facility] DATE/TIME 09/21/21 14:10 [facility] Bilirubin.total [Mass/volume] in Serum or Plasma <0.7 MG/DL 0.2 - 1.3 [facility] Alkaline phosphatase [Enzymatic activity/volume] in Serum or Plasma 76 U/L 38 - 126 [facility] Aspartate aminotransferase [Enzymatic activity/volume] in Serum or Plasma 28 U/L 5 - 40 [facility] Alanine aminotransferase [Enzymatic activity/volume] in Seru m or Plasma 30 U/L 7 - 56 [facility] Anion gap 3 in Serum or Plasma 11.0 mmol/L 8.0 - 16.0 [facility] AGE 66 yrs [facility] al NON-AA GFR 19 mL/min [facility] AFR AMER GFR >60 [facility] Male GFR In terprentation [...] >32 mL/min Normal ID Date Data Source [id number] 09/21/2021 02:08:00 PM [facility] Name Value Range Interpretation Code Description Data Aminta rce(s) Supporting Document(s) Magnesium [Mass/volume] in Serum or Plasma 2.3 MG/DL 1.7 - 2.2 H [facility] ID Date Data Source [id number] 09/21/2021 01:47:00 PM [facility] Name Value Range Interpretation Code Description Data Aminta rce(s) Supporting Document(s) Lactate dehydrogenase [Enzymatic activity/volume] in Serum o r Plasma 190 U/L 135 - 214 [facility] ID Date Data Source [id number] 09/21/2021 01:28:00 PM EST [facility] Name Value Range Interpretation Code Description Data Aminta rce(s) Supporting Document(s) CBC W/AUTOMATED DIFF [facility] COMPLETE BLOOD COUNT Leukocytes [#/volume] in Blood by Automated count 5.1 10^3/uL 4.2 - 1 1.0 [facility] Erythrocytes [#/volume] in Blood by Automated count 3.22 10^6/uL 4. 20 - 5.40 L [facility] Hemoglobin [Mass/volume] in Blood 11.1 g/dL 12.0 - 16.0 L [facility] Hematocrit [Volume Fraction] of Blood by Automated count 32.7 % 3 7.0 - 47.0 L [facility] Erythrocyte mean corpuscular volume [Entitic volume] b y Automated count 101.6 fL 81.0 - 101 H [facility] Erythrocyte mean corpuscular hemoglobin [Entitic mass] by Automated count 34.5 pg 27.0 - 34.0 H [facility] Erythrocyte mean corpuscular hemoglobin concentration [Mass/volume] by Automated count 33.9 g/dL 31.0 - 36.0 [facility] Erythrocyte distribution width [Ratio] by Automated count 13.1 % 11.5 - 14.5 [facility] Platelets [#/volume] in Blood by Automated count 177 10^3/uL 150 - 45 0 [facility] Platelet mean volume [Entitic volume] in Blood by Automated count 10.5 fL 7.4 - 10.4 H [facility] Neutrophils/100 leukocytes in Blood by Automated count 48.3 % 37. 0 - 80.0 [facility] Lymphocytes/100 leukocytes in Blood by Manual count 28.5 % 25.0 - 40.0 [facility] Monocytes/100 leukocytes in Blood by Automated count 14.5 % 3.0 - 8.0 H [facility] Eosinophils/100 leukocytes in Blood by Automated count 7.7 % 0.0 - 7.0 H [facility] Basophils/100 leukocytes in Blood by Automated count 0.8 % 0.0 - 2.5 [facility] %IG 0.2 % 0.0 - 0.0 [facility] %NRBC 0.0 % 0.0 - 0.0 [facility] Neutrophils [#/volume] in Blood by Automated count 2.44 10^3/uL 2.00 - 6.90 [facility] Lymphocytes [#/volume] in Blood by Automated count 1.44 10^3/uL 0.60 - 3.40 [facility] Monocytes [#/volume] in Blood by Automated count 0.73 10^3/uL 0.00 - 0.90 [facility] Eosinophils [#/volume] in Blood by Automated count 0.39 10^3/uL 0.00 - 0.70 [facility] Basophils [#/volume] in Blood by Automated count 0.04 10^3/uL 0.00 - 0.20 [facility] #IG 0.01 10^3/uL 0.00 - 0.10 [facility] #NRBC 0.00 10^3/uL 0.00 - 0.00 [facility] MANUAL DIFF NOT INDICATED [facility] RBC MORPH NOT INDICATED [facility] spital ID Date Data Source [id number] 08/31/2021 02:07:00 PM EDT [facility] ([facility]) Name Value Range Interpretation Code Description Data Aminta rce(s) Supporting Document(s) Calcium [Mass/volume] in Serum or Plasma 9.7 [facility] ([facility]) Albumin [Mass/volume] in Serum or Plasma 3.0 [facility] ([facility]) Alanine aminotransferase [Enzymatic activity/volume] in Serum or Pl asma 39 [facility] ([facility]) Chloride [Moles/volume] in Serum or Plasma 99 [facility] ([facility]) Carbon dioxide, total [Moles/volume] in Serum or Plasma 24 [facility] ([facility]) Alkaline phosphatase [Enzymatic activity/volume] in Serum or Plasma 7 8 [facility] ([facility]) Potassium [Moles/volume] in Serum or Plasma 4.2 [facility] ([facility]) Protein [Mass/volume] in Serum or Plasma 6.4 [facility] ([facility]) Urea nitrogen [Mass/volume] in Serum or Plasma 39 [facility] ([facility]) Sodium 131 [facility] Aspartate aminotransferase [Enzymatic activity/volume] in Serum or Plasma 21 [facility] ([facility]) Creatinine For GFR 2.25 [facility] ([facility]) Glucose 168 83-110 [facility]) ID Date Data Source [id number] 08/31/2021 02:07:00 PM EDT [facility] ([facility]) Name Value Range Interpretation Code Description Data Aminta rce(s) Supporting Document(s) White Blood Count 4.3 5.0-10.0 [facility] ([facility]) Red Blood Count 2.85 4.00-5.40 [facility] ([facility]) Platelets 181 172-450 [facility] [place] [place] Hemoglobin 10.1 [facility] ([facility]) Hematocrit 28.6 [facility] ([facility]) ID Date Data Source [id number] 08/30/2021 02:02:00 PM EDT [facility] ([facility]) Name Value Range Interpretation Code Description Data Aminta rce(s) Supporting Document(s) Thyroid Stimulating Hormone 2.190 [facility] [facility]) ID Date Data Source [id number] 08/30/2021 11:54:00 AM EDT [facility] Name Value Range Interpretation Code Description Data Aminta rce(s) Supporting Document(s) SARS-CoV-2 (COVID 19) NEGATIVE - SARS-CoV-2 (COVID19) [facility] This lab was ordered by [facility] a nd reported by [facility]. 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/Egv7gBQuNrTvMbn3CY1ubzF iz9HOc/0jVeIOyF4caldbROM5SZADvHvqHYoOx76nv 14N3ejnRI8pzF1gRPvKfccv2wCIlgkJbUNAu5nLw2V33qCRfUFmGfUi3Z/Aq3I/yBhK4n1NTsqqaa2eL dX6cu4bxngpprPg4hQNel4FN5jJU/l4WQu+RL0RL5FdeGmOI9yAZ7IS8Ckq/j3s9H3XGENHe+CFXlMP5 w/tDIkyM6jpCzCXCEGsa4F5u9BQJK9RLTkU3OimY60 BB2EUXJVTmdJ8a42zWWvAePjz4nBicAIQ48eveAnvj2j9QhcPkrYTbBh4B7Lkpk6ewqTL4dg2JbZF4P/ GNJp02Eb+hffbfxFangUYuV6YIAV2luhdqhOy90YWQQpUufYEtzvTZ/nC2hadx0AHYGTm6JKoD6f0LQP oMipg5P49VmaPq/LUsrdQ37wHU6qlTly3jHeErshfO Gnw9CebO0JHuVMZDN6r5JuUXrvYvCUvqfRU1xPQVTfFV8Hj4HI1RA98dpQq3yP+zLu6vZckdIKrGbztP ke4otnWU3qg2gzVtW51Ba6HaIXaRvfyntl7TztYjh5a0/Lindsay/Nql6l6qxRHknIYS+MjOjL3BGEPS5d8K [file] Animal Handler+7WzrS3ojbwxa3vc7aMFmLE1sKOVMad6ePaV0K+jWyBIxHnLfLqB/494TrCY89SMsBIMgGHYNXzfM+ [file] RTMnZ1wboVFzWI5+U+Fno3rP/kpqNe/HxnQfjQ+sewer head I54rvuuV8wJLEkAuPOPCQBlzpaMwbMWqSSI40Y7QXFQo8blJkwCe7A25Jn2ghGm2MeeR4mIxb+fh5nBN rNj1ndElOV+pQ9/ANRM2cxjJdS6/0EojPFZtV1VKA8eT2v0XinDMbbbNMNh7cyTwizVg92kLmYDf14xS XzfG7oQd27G4DD59jzWk5+B0vpCcT7hk5lAZyEEWr/ 3XnazBkAf0kedk2HfKnZeTP4zqo9Nmd/mKy0DpCWTxyXgJTz3+AYvu3OQ8mPPxcJaU86/MXprALLyA6r 1IpU5n36wiFcb1x5p6/93ps8irZ3LVOXeao75alBJPJu+BMf4Afa3byoFjkgDNSdoROG0BRvM/ANYr+x b4JjNZc/5bW7qB3caCRCYPa/UbmmOuVUQbirqN+LZf eeqSmQc/JpE62kBofjBjXlGYzCYWW1oatxUMfvjElcGI6xZVdC1AeeeArmgkGJV1Gs+/Wlgsm/gsd/ZI mEz0t80HHgZTSloBMegBaODCOgka3l459FfW0tKXE3T1osaWV9s9hJn8bJsPQ6zwXY3vII+9Y4/WV2KT jWq7L6a65C0r8l6kbDAW08bfmb4r6iDZ5qnm0Y09ZA [file] RAMAH NAVAJO CHAPTER+RI2ylwSOAme+8h8KR8b75Na3u7+5jP676Zwymg yy7+/WCgznSOTi27aMM5tHZOxlCk7/5hYT38ChVyIIFR/0P0i2uv+bPG7sk09r1JokIxj0DyCIbZRY1m 7gKIQdkbszaEcceQVPxbGmn6ZwBsZOffF7HK6WXPUfRYDjoHgz62h8icj69Bn+axnZnRxHLCI52TZFe+ vs7W08cBWw5Cvi6z9byUnmkScJuwSPU7OSIQiow80m 7TrajX37cxaRqbf0SQVk7L3KZ9iU9ek1j3m1VeApbACfxeXRbBNsO8A5BNrsQVfhn9HIR+eRkzQmyUI/ Up8OTopreftyPD9vju/znWDBgjB7jjomrIkGFNKgEpnC0/DjYWhk3Blv5fl22AFXroyWbHilBqVdBNer +82V6zm4YNfGGwOPzuiafeA5uTQ8/pJAWurQxiqw/H AaH2hZNFszBDpUDQqRdZ36/dobkib8echIrmQxne+vxXXn6FxgAlFegXjb3tHDnUYer9iMZWYkn+FQ5e 805EjOGWjuz0EQVG+vJ9k+IcKSnmPQhphQDDflqRfLe+at7P+OgVxKlXaFoh05pJBQyBMPASawiJfQiF 0FDc/MOLLY/4iu7b4FjeCGbZEm5alYp29MXkZd9C1k9a [file] 99Emc2SbXqeZq0U2++3goOOE/cfmc2Riv2pEoe/UeHLx45dHUW/senior web designer+hfzYf9cvNlemqiTxL7E8frNYTb [file] jx49y3vo4AwvQI9PjBLhC7DjEom+IKNZizfopSmAxs+/cnj1DcCh/fish bin tender++xHriWi6/s0zVumaBFy2bilC [file] dDBP5FOj+retail tire sales manager/Fj30FIltDA0OaOmwldqhEb40b6DqDcDGJqe5ZPqpl0HPOnw13i+lgDKyXXoxbET0p+G [file] workplace trainer and assessor+qhmVWsSs3TJs5jTuCW9grmXC0Gn4oN0iJe3d+wT/Mc+jf+zXrPquVZtCkyMh163oYesMXR3vZnnHh jnpovBucHA/AzJP3dHt0skGZPmc6ya5+7U9+3Iq1Cs YJ7woT3HelYBTDIHvQuLI8zMBRqUvwGjUhap8kCmszQrpdpIYFImwEOkox5LetaJ9MmnpLfrVD6upxbg FwI15GUS0bauiVy0BTMgMloQorihqUqzfXN4qduM2JDNPiw+ept9tmBgIMyVe+sYJJwEppgqJq/q4Lrt kwnOlVAknXzy8r6UHqm001kQi1qyUXOKX206Irp/BU fvnqtRGbWW4RrCFYtqK+PsbL7VqFRefqaBmbuVft+cFGZmkfJFBWNa79o3Vps0XaO332jmZfCtzhhlLQ mx3Uq11bU3H9HO+Dante+WNNtxX/+w+aR961m/opi5pCMTuCKb336sekunDWLqey2Ddbm36kh+ujV5NUfd [file] Qb2gyG5LpO21TD6gFBctezlyM8le7wQ4dCHhQtB7KprY//Miguel Angel+9Zj8v8LJciQMLIEFXMP0kCFIrZST/D [file] wWPO2xEVLfwcnfbkG8Ku/wet finisher+XYcKe/jKNlalu5gKf [file] nB9qJATEsKS+7004SUVSM/perfume maker+VydHfjUqpU/f1fh+ [file] SATURATION DIVER/polSvYfgq4NpSr++x3FjQjW1T1nkDII/bmw+zKH [file] Will+EEIeKFx2OFnW8BIIjrEVK4zbDGAGUejJS6+hWdY7RDC2aj5VaGJLkWUppqgAzHldCCHhssYPrmFwh FKBNQgd9KpC2CP3HUREPJ6Z= ID Date Data Source [id number] 08/02/2021 12:17:00 PM EDT [facility] [phone] Name Value Range Interpretation Code Description Data Aminta rce(s) Supporting Document(s) GLUCOSE 169 mg/dL 74-106 [facility] BLOOD UREA NITROGEN 61 mg/dL 7-18 H [facility] ital CREATININE 2.48 mg/dL 0.6-1.0 H [facility] SODIUM 143 mmol/L 136-145 [facility] POTASSIUM 3.9 mmol/L 3.5-5.1 [facility] CHLORIDE 105 mmol/L 98-107 [facility] CO2 26 mmol/L 21-32 [facility] CALCIUM 9.9 mg/dL 8.5-10.1 [facility] GLOMERULAR FILTRATION RATE 20 mL/min [facility] GFR IS CALCULATED IN mL/min/1.73m2 STAS L FUNCTION: >90MILDLY DECREASED: 60-89MILDY TO MODERATELY DECREASED: 45-59 MODERATELY TO SEVERELY DECREASED: 30-44SEVERELY DECREASED: 15-29RENAL FAILURE: <15 ALBUMIN 3.5 gm/dL 3.4-5.0 [facility] PHOSPHOROUS 4.1 mg/dL 2.5-4.9 [facility] ID Date Data Source [id number] 05/21/2021 06:57:00 AM EDT [facility] Name Value Range Interpretation Code Description Data Aminta rce(s) Supporting Document(s) Tacrolimus [Mass/volume] in Blood by LC/MS/MS 3.5 ng/mL 2.0-20.0 [facility] Trough (immediate ly following transplant) 15.0 Trough (steady state, 2 weeks or more after transplant): 3.0 - 8.0 Detection Limit = 1.0 Performed by LC-MS/MS technology. This test was developed and its performance characteristics determined by [employer]. It has not been cleared or approved by the Food and Drug Administration. ID Date Data Source [id number] 05/16/2021 12:04:00 PM EDT [facility] Name Value Range Interpretation Code Description Data Aminta rce(s) Supporting Document(s) CBC W/AUTOMATED DIFF [facility] COMPLETE BLOOD COUNT Leukocytes [#/volume] in Blood by Automated count 5.3 10^3/uL 4.2 - 1 1.0 [facility] Erythrocytes [#/volume] in Blood by Automated count 3.52 10^6/uL 4. 20 - 5.40 L [facility] Hemoglobin [Mass/volume] in Blood 12.4 g/dL 12.0 - 16.0 [facility] Hematocrit [Volume Fraction] of Blood by Automated count 36.3 % 3 7.0 - 47.0 L [facility] Erythrocyte mean corpuscular volume [Entitic volume] b y Automated count 103.1 fL 81.0 - 101 H [facility] Erythrocyte mean corpuscular hemoglobin [Entitic mass] by Automated count 35.2 pg 27.0 - 34.0 H [facility] Erythrocyte mean corpuscular hemoglobin concentration [Mass/volume] by Automated count 34.2 g/dL 31.0 - 36.0 [facility] Erythrocyte distribution width [Ratio] by Automated count 14.0 % 11.5 - 14.5 [facility] Platelets [#/volume] in Blood by Automated count 161 10^3/uL 150 - 45 0 [facility] Platelet mean volume [Entitic volume] in Blood by Automated count 10.7 fL 7.4 - 10.4 H [facility] Neutrophils/100 leukocytes in Blood by Automated count 52.5 % 37. 0 - 80.0 [facility] Lymphocytes/100 leukocytes in Blood by Manual count 33.2 % 25.0 - 40.0 [facility] Monocytes/100 leukocytes in Blood by Automated count 11.6 % 3.0 - 8.0 H [facility] Eosinophils/100 leukocytes in Blood by Automated count 1.9 % 0.0 - 7.0 [facility] Basophils/100 leukocytes in Blood by Automated count 0.4 % 0.0 - 2.5 [facility] %IG 0.4 % 0.0 - 0.0 H [facility] al %NRBC 0.0 % 0.0 - 0.0 [facility] al Neutrophils [#/volume] in Blood by Automated count 2.77 10^3/uL 2.00 - 6.90 [facility] Lymphocytes [#/volume] in Blood by Automated count 1.75 10^3/uL 0.60 - 3.40 [facility] Monocytes [#/volume] in Blood by Automated count 0.61 10^3/uL 0.00 - 0.90 [facility] Eosinophils [#/volume] in Blood by Automated count 0.10 10^3/uL 0.00 - 0.70 [facility] Basophils [#/volume] in Blood by Automated count 0.02 10^3/uL 0.00 - 0.20 [facility] #IG 0.02 10^3/uL 0.00 - 0.10 [facility] #NRBC 0.00 10^3/uL 0.00 - 0.00 [facility] MANUAL DIFF NOT INDICATED [facility] RBC MORPH NOT INDICATED [facility] ID Date Data Source [id number] 05/16/2021 12:04:00 PM EDT [facility] Name Value Range Interpretation Code Description Data Aminta rce(s) Supporting Document(s) Lactate dehydrogenase [Enzymatic activity/volume] in Serum o r Plasma 305 U/L 135 - 214 H [facility] ID Date Data Source [id number] 05/16/2021 12:04:00 PM EDT [facility] Name Value Range Interpretation Code Description Data Aminta rce(s) Supporting Document(s) COMPREHENSIVE METABOLIC PANEL [facility] COMPREHENSIVE METABOLIC PANEL Sodium [Moles/volume] in Serum or Plasma 141 mEq/L 134 - 153 [facility] Potassium [Moles/volume] in Serum or Plasma 4.0 mEq/L 3.6 - 5.0 [facility] Chloride [Moles/volume] in Serum or Plasma 102 mEq/L 98 - 107 [facility] Carbon dioxide, total [Moles/volume] in Serum or Plasma 26 MEQ/L 22 - 30 [facility] Glucose [Mass/volume] in Serum or Plasma 280 MG/DL 70 - 99 [facility] BUN 45 MG/DL 7 - 21 [facility] Creatinine [Mass/volume] in Serum or Plasma 2.0 MG/DL 0.7 - 1.5 H [facility] BUN/CREAT 23 8 - 27 [facility] al Protein [Mass/volume] in Serum or Plasma 5.9 G/DL 6.3 - 8.2 L [facility] Albumin [Mass/volume] in Serum or Plasma 4.1 G/DL 3.9 - 5.0 [facility] Globulin [Mass/volume] in Serum by calculation 1.8 GM/DL 2.4 - 3.2 L [facility] A/G RATIO 2.3 0.8 - 2.0 H [facility] al Calcium [Mass/volume] in Serum or Plasma 10.1 MG/DL 8.4 - 10.2 [facility] Bilirubin.total [Mass/volume] in Serum or Plasma <0.7 MG/DL 0.2 - 1.3 [facility] Alkaline phosphatase [Enzymatic activity/volume] in Serum or Plasma 83 U/L 38 - 126 [facility] Aspartate aminotransferase [Enzymatic activity/volume] in Serum or Plasma 24 U/L 5 - 40 [facility] Alanine aminotransferase [Enzymatic activity/volume] in Seru m or Plasma 46 U/L 7 - 56 [facility] Anion gap 3 in Serum or Plasma 13.0 mmol/L 8.0 - 16.0 [facility] AGE 66 yrs [facility] al NON-AA GFR 27 mL/min [facility] A[facility] AMER GFR >60 [facility] Male GFR In terprentation [...] >32 mL/min Normal ID Date Data Source [id number] 05/16/2021 12:03:00 PM EDT [facility] Name Value Range Interpretation Code Description Data Aminta rce(s) Supporting Document(s) Magnesium [Mass/volume] in Serum or Plasma 2.1 MG/DL 1.7 - 2.2 [facility] ID Date Data Source [id number] 05/08/2021 05:02:00 PM EDT [facility] Name Value Range Interpretation Code Description Data Aminta rce(s) Supporting Document(s) Tacrolimus [Mass/volume] in Blood by LC/MS/MS 3.2 ng/mL 2.0-20.0 [facility] Trough (immediate ly following transplant) 15.0 Trough (steady state, 2 weeks or more after transplant): 3.0 - 8.0 Detection Limit = 1.0 Performed by LC-MS/MS technology. This test was developed and its performance characteristics determined by [employer]. It has not been cleared or approved by the Food and Drug Administration. ID Date Data Source [id number] 05/04/2021 03:09:00 PM EDT [facility] Name Value Range Interpretation Code Description Data Aminta rce(s) Supporting Document(s) CVE PANEL [facility] al LIPID PANEL Cholesterol [Mass/volume] in Serum or Plasma 231 MG/DL 131 - 200 [facility] Deprecated Triglyceride [Mass/volume] in Serum or Plasma 341 MG/DL 3 5 - 160 [facility] HDL 62 MG/DL 29 - 86 [facility] Cholesterol in LDL [Mass/volume] in Serum or Plasma by Direc t assay 133 mg/dL 65 - 175 [facility] Cholesterol.total/Cholesterol in HDL [Mass Ratio] in Serum o r Plasma 3.7 3.2 - 4.4 [facility] LDL/HDL 2.15 1.47 - 3.22 [facility] CVE RISK CHOL/HDL LDL/HDLMEN: 1/2 AVERAGE 3.43 1.00 AVERAGE 4.97 3.55 2X AVERAGE 9.55 6.25 3X AVERAGE 23.99 7.99WOMEN: 1/2 AVERAGE 3.27 1.47 AVERAGE 4.44 3.22 2X AVERAGE 7.05 5.03 3X AVERAGE 11.04 6.14 ID Date Data Source [id number] 05/04/2021 03:08:00 PM EDT [facility] Name Value Range Interpretation Code Description Data Aminta rce(s) Supporting Document(s) Magnesium [Mass/volume] in Serum or Plasma 2.6 MG/DL 1.7 - 2.2 H [facility] ID Date Data Source [id number] 05/04/2021 03:08:00 PM EDT [facility] Name Value Range Interpretation Code Description Data Aminta rce(s) Supporting Document(s) COMPREHENSIVE METABOLIC PANEL [facility] COMPREHENSIVE METABOLIC PANEL Sodium [Moles/volume] in Serum or Plasma 140 mEq/L 134 - 153 [facility] Potassium [Moles/volume] in Serum or Plasma 4.0 mEq/L 3.6 - 5.0 [facility] Chloride [Moles/volume] in Serum or Plasma 100 mEq/L 98 - 107 [facility] Carbon dioxide, total [Moles/volume] in Serum or Plasma 27 MEQ/L 22 - 30 [facility] Glucose [Mass/volume] in Serum or Plasma 161 MG/DL 70 - 99 H [facility] BUN 53 MG/DL 7 - 21 H [facility] al Creatinine [Mass/volume] in Serum or Plasma 2.5 MG/DL 0.7 - 1.5 H [facility] BUN/CREAT 21 8 - 27 [facility] Protein [Mass/volume] in Serum or Plasma 5.9 G/DL 6.3 - 8.2 L [facility] Albumin [Mass/volume] in Serum or Plasma 3.9 G/DL 3.9 - 5.0 [facility] Globulin [Mass/volume] in Serum by calculation 2.0 GM/DL 2.4 - 3.2 L [facility] A/G RATIO 2.0 0.8 - 2.0 [facility] Calcium [Mass/volume] in Serum or Plasma 10.5 MG/DL 8.4 - 10.2 H [facility] Bilirubin.total [Mass/volume] in Serum or Plasma <0.7 MG/DL 0.2 - 1.3 [facility] Alkaline phosphatase [Enzymatic activity/volume] in Serum or Plasma 68 U/L 38 - 126 [facility] Aspartate aminotransferase [Enzymatic activity/volume] in Serum or Plasma 31 U/L 5 - 40 [facility] Alanine aminotransferase [Enzymatic activity/volume] in Seru m or Plasma 51 U/L 7 - 56 [facility] Anion gap 3 in Serum or Plasma 13.0 mmol/L 8.0 - 16.0 [facility]GE 66 [facility] 21 mL/min [facility] AFR AMER GFR >60 [facility] Male GFR In terprentation [...] >32 mL/min Normal ID Date Data Source [id number] 05/04/2021 02:45:00 PM EDT [facility] Name Value Range Interpretation Code Description Data Aminta rce(s) Supporting Document(s) CBC W/AUTOMATED DIFF [facility] COMPLETE BLOOD COUNT Leukocytes [#/volume] in Blood by Automated count 5.9 10^3/uL 4.2 - 1 1.0 [facility] Erythrocytes [#/volume] in Blood by Automated count 3.53 10^6/uL 4. 20 - 5.40 L [facility] Hemoglobin [Mass/volume] in Blood 12.5 g/dL 12.0 - 16.0 [facility] Hematocrit [Volume Fraction] of Blood by Automated count 36.6 % 3 7.0 - 47.0 L [facility] Erythrocyte mean corpuscular volume [Entitic volume] b y Automated count 103.7 fL 81.0 - 101 H [facility] Erythrocyte mean corpuscular hemoglobin [Entitic mass] by Automated count 35.4 pg 27.0 - 34.0 H [facility] Erythrocyte mean corpuscular hemoglobin concentration [Mass/volume] by Automated count 34.2 g/dL 31.0 - 36.0 [facility] Erythrocyte distribution width [Ratio] by Automated count 14.0 % 11.5 - 14.5 [facility] Platelets [#/volume] in Blood by Automated count 130 10^3/uL 150 - 45 0 L [facility] Platelet mean volume [Entitic volume] in Blood by Automated count 11.2 fL 7.4 - 10.4 H [facility] Neutrophils/100 leukocytes in Blood by Automated count 58.0 % 37. 0 - 80.0 [facility] Lymphocytes/100 leukocytes in Blood by Manual count 28.9 % 25.0 - 40.0 [facility] Monocytes/100 leukocytes in Blood by Automated count 10.9 % 3.0 - 8.0 H [facility] Eosinophils/100 leukocytes in Blood by Automated count 1.4 % 0.0 - 7.0 [facility] Basophils/100 leukocytes in Blood by Automated count 0.3 % 0.0 - 2.5 [facility] %IG 0.5 % 0.0 - 0.0 H [facility] %NRBC 0.0 % 0.0 - 0.0 [facility] al Neutrophils [#/volume] in Blood by Automated count 3.42 10^3/uL 2.00 - 6.90 [facility] Lymphocytes [#/volume] in Blood by Automated count 1.70 10^3/uL 0.60 - 3.40 [facility] Monocytes [#/volume] in Blood by Automated count 0.64 10^3/uL 0.00 - 0.90 [facility] Eosinophils [#/volume] in Blood by Automated count 0.08 10^3/uL 0.00 - 0.70 [facility] Basophils [#/volume] in Blood by Automated count 0.02 10^3/uL 0.00 - 0.20 [facility] #IG 0.03 10^3/uL 0.00 - 0.10 [facility] #NRBC 0.00 10^3/uL 0.00 - 0.00 [facility] MANUAL DIFF NOT INDICATED [facility] RBC MORPH NOT INDICATED [facility] ID Date Data Source [id number] 04/06/2021 09:34:46 AM EDT [facility] Name Value Range Interpretation Code Description Data Aminta rce(s) Supporting Document(s) Tacrolimus [Mass/volume] in Blood 2.3 ng/mL [facility] Renal Transplant Target ValuesImmediate post-transplant: 10 - 15 ng/mL First 6 months: 6 - 15 ng/mL Greater than 6 months: 6 - 15 ng/mL ID Date Data Source Ionized Calcium 02/18/2021 12:00:00 AM EDT [facility] ([facility]) Name Value Range Interpretation Code Description Data Aminta rce(s) Supporting Document(s) 4.9 4.5-5.3 IONIZED CALCIUM eCW1 ([facility]) ID Date Data Source [id number] 01/30/2021 04:05:00 PM EDT [facility]) Name Value Range Interpretation Code Description Data Aminta rce(s) Supporting Document(s) Troponin Laboratory test result [facility] ([facility]) ID Date Data Source [id number] 01/30/2021 04:05:00 PM EDT [facility] ([facility]) Name Value Range Interpretation Code Description Data Aminta rce(s) Supporting Document(s) White Blood Count 6.4 5.0-10.0 [facility] ([facility]) Platelets 133 172-450 [facility] [place] [place] Red Blood Count 3.58 4.00-5.40 [facility] ([facility]) Hemoglobin 12.2 [facility] ([facility]) Hematocrit 36.2 [facility] ([facility]) ID Date Data Source [id number] 10/07/2020 09:04:00 PM [facility] Name Value Range Interpretation Code Description Data Aminta rce(s) Supporting Document(s) Tacrolimus [Mass/volume] in Blood by LC/MS/MS 2.6 ng/mL 2.0-20.0 [facility] Trough (immediate ly following transplant) 15.0 Trough (steady state, 2 weeks or more after transplant): 3.0 - 8.0 Detection Limit = 1.0 Performed by LC-MS/MS technology. This test was developed and its performance characteristics determined by [employer]. It has not been cleared or approved by the Food and Drug Administration. ID Date Data Source [id number] 10/05/2020 02:29:00 PM [facility] Name Value Range Interpretation Code Description Data Aminta rce(s) Supporting Document(s) COMPREHENSIVE METABOLIC PANEL [facility] COMPREHENSIVE METABOLIC PANEL Sodium [Moles/volume] in Serum or Plasma 137 mEq/L 134 - 153 [facility] Potassium [Moles/volume] in Serum or Plasma 4.4 mEq/L 3.6 - 5.0 [facility] Chloride [Moles/volume] in Serum or Plasma 98 mEq/L 98 - 107 [facility] Carbon dioxide, total [Moles/volume] in Serum or Plasma 26 MEQ/L 22 - 30 [facility] Glucose [Mass/volume] in Serum or Plasma 88 MG/DL 65 - 110 [facility] BUN 30 MG/DL 7 - 21 H [facility] Creatinine [Mass/volume] in Serum or Plasma 1.3 MG/DL 0.7 - 1.5 [facility] BUN/CREAT 23 8 - 27 [facility] Protein [Mass/volume] in Serum or Plasma 6.2 G/DL 6.3 - 8.2 L [facility] Albumin [Mass/volume] in Serum or Plasma 4.2 G/DL 3.9 - 5.0 [facility] Globulin [Mass/volume] in Serum by calculation 2.0 GM/DL 2.4 - 3.2 L [facility] A/G RATIO 2.1 0.8 - 2.0 H [facility] Calcium [Mass/volume] in Serum or Plasma 10.1 MG/DL 8.4 - 10.2 [facility] Bilirubin.total [Mass/volume] in Serum or Plasma <0.7 MG/DL 0.2 - 1.3 [facility] Alkaline phosphatase [Enzymatic activity/volume] in Serum or Plasma 91 U/L 38 - 126 [facility] Aspartate aminotransferase [Enzymatic activity/volume] in Serum or Plasma 25 U/L 5 - 40 [facility] Alanine aminotransferase [Enzymatic activity/volume] in Seru m or Plasma 34 U/L 7 - 56 [facility] Anion gap 3 in Serum or Plasma 13.0 mmol/L 8.0 - 16.0 [facility] AGE 65 yrs [facility] al NON-AA GFR 44 mL/min [facility] A[facility] AMER GFR >60 [facility] Male GFR In terprentation [...] >32 mL/min Normal ID Date Data Source [id number] 10/05/2020 02:29:00 PM [facility] Name Value Range Interpretation Code Description Data Aminta rce(s) Supporting Document(s) Lactate dehydrogenase [Enzymatic activity/volume] in Serum o r Plasma 293 U/L 135 - 214 H [facility] ID Date Data Source [id number] 10/05/2020 02:27:00 PM [facility] Name Value Range Interpretation Code Description Data Aminta rce(s) Supporting Document(s) Magnesium [Mass/volume] in Serum or Plasma 1.9 MG/DL 1.7 - 2.2 [facility] ID Date Data Source [id number] 10/05/2020 01:58:00 PM [facility] Name Value Range Interpretation Code Description Data Aminta rce(s) Supporting Document(s) CBC W/AUTOMATED DIFF [facility] COMPLETE BLOOD COUNT Leukocytes [#/volume] in Blood by Automated count 6.5 10^3/uL 4.2 - 1 1.0 [facility] Erythrocytes [#/volume] in Blood by Automated count 3.73 10^6/uL 4. 20 - 5.40 L [facility] Hemoglobin [Mass/volume] in Blood 12.5 g/dL 12.0 - 16.0 [facility] Hematocrit [Volume Fraction] of Blood by Automated count 36.5 % 3 7.0 - 47.0 L [facility] Erythrocyte mean corpuscular volume [Entitic volume] by Auto mated count 97.9 fL 81.0 - 101 [facility] Erythrocyte mean corpuscular hemoglobin [Entitic mass] by Automated count 33.5 pg 27.0 - 34.0 [facility] Erythrocyte mean corpuscular hemoglobin concentration [Mass/volume] by Automated count 34.2 g/dL 31.0 - 36.0 [facility] Erythrocyte distribution width [Ratio] by Automated count 13.6 % 11.5 - 14.5 [facility] Platelets [#/volume] in Blood by Automated count 181 10^3/uL 150 - 45 0 [facility] Platelet mean volume [Entitic volume] in Blood by Automated count 9.9 fL 7.4 - 10.4 [facility] Neutrophils/100 leukocytes in Blood by Automated count 58.2 % 37. 0 - 80.0 [facility] Lymphocytes/100 leukocytes in Blood by Manual count 28.0 % 25.0 - 40.0 [facility] Monocytes/100 leukocytes in Blood by Automated count 11.1 % 3.0 - 8.0 H [facility] Eosinophils/100 leukocytes in Blood by Automated count 2.2 % 0.0 - 7.0 [facility] Basophils/100 leukocytes in Blood by Automated count 0.3 % 0.0 - 2.5 [facility] %IG 0.2 % 0.0 - [facility] % 0.0 - 0.0 [facility] al Neutrophils [#/volume] in Blood by Automated count 3.79 10^3/uL 2.00 - 6.90 [facility] Lymphocytes [#/volume] in Blood by Automated count 1.82 10^3/uL 0.60 - 3.40 [facility] Monocytes [#/volume] in Blood by Automated count 0.72 10^3/uL 0.00 - 0.90 [facility] Eosinophils [#/volume] in Blood by Automated count 0.14 10^3/uL 0.00 - 0.70 [facility] Basophils [#/volume] in Blood by Automated count 0.02 10^3/uL 0.00 - 0.20 [facility] #IG 0.01 10^3/uL 0.00 - 0.10 [facility] ospital #NRBC 0.00 10^3/uL 0.00 - 0.00 [facility] ospital MANUAL DIFF NOT INDICATED [facility] RBC MORPH NOT INDICATED [facility] spital ID Date Data Source [id number] 09/05/2020 08:12:34 AM EDT [facility] Hospital Name Value Range Interpretation Code Description Data Aminta rce(s) Supporting Document(s) Progress Note [facility] [id number] lbm [file] [id number]== ID Date Data Source [id number] 09/06/2020 07:27:46 AM EST [facility] Name Value Range Interpretation Code Description Data Aminta rce(s) Supporting Document(s) Specimen source [Identifier] of Unspecified specimen [facility] SARS-CoV-2 RNA 2018 nCoV Real-Time RT-PCR: NOT DETECTED [facility] Assay Performed [facility] 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[facility] Patient has symptoms related to [facility] When did you start to experience these symptoms [Date and time] [Phen X] [facility] Patient was hospitalized because of this condition [facility] patient was admitted to ICU for [facility] Patient resides in a congregate care setting [facility] status [facility] ID Date Data Source [id number] 09/05/2020 08:12:00 AM EDT [facility] Name Value Range Interpretation Code Description Data Aminta rce(s) Supporting Document(s) SARS-CoV-2 RNA [facility] This lab was ordered by [facility] and reported by [facility]. ID Date Data Source [id number] 09/02/2020 06:12:00 PM [facility] Value Range Interpretation Code Description Data Aminta rce(s) Supporting Document(s) Tacrolimus [Mass/volume] in Blood by LC/MS/MS 3.4 ng/mL 2.0-20.0 [facility] Trough (immediate ly following transplant) 15.0 Trough (steady state, 2 weeks or more after transplant): 3.0 - 8.0 Detection Limit = 1.0 Performed by LC-MS/MS technology. This test was developed and its performance characteristics determined by [employer]. It has not been cleared or approved by the Food and Drug Administration. ID Date Data Source [id number] [facility] Interpretation Code Description Data Aminta rce(s) Supporting Document(s) Lactate dehydrogenase [Enzymatic activity/volume] in Serum o r Plasma 275 U/L 135 - 214 H [facility] ID Date Data Source [id number] 08/31/2020 02:11:00 PM EDT [facility] Name Value Range Interpretation Code Description Data [facility](s) Supporting Document(s) COMPREHENSIVE METABOLIC PANEL [facility] COMPREHENSIVE METABOLIC PANEL Sodium [Moles/volume] in Serum or Plasma 137 mEq/L 134 - 153 [facility] Potassium [Moles/volume] in Serum or Plasma 4.2 mEq/L 3.6 - 5.0 [facility] Chloride [Moles/volume] in Serum or Plasma 99 mEq/L 98 - 107 [facility] Carbon dioxide, total [Moles/volume] in Serum or Plasma 28 MEQ/L 22 - 30 [facility] Glucose [Mass/volume] in Serum or Plasma 142 MG/DL 65 - 110 [facility] BUN 34 MG/DL 7 - 21 [facility] Creatinine [Mass/volume] in Serum or Plasma 1.4 MG/DL 0.7 - 1.5 [facility] BUN/CREAT 24 8 - 27 [facility] al Protein [Mass/volume] in Serum or Plasma 6.3 G/DL 6.3 - 8.2 [facility] Albumin [Mass/volume] in Serum or Plasma 4.1 G/DL 3.9 - 5.0 [facility] Globulin [Mass/volume] in Serum by calculation 2.2 GM/DL 2.4 - 3.2 L [facility] A/G RATIO 1.9 0.8 - 2.0 [facility] Calcium [Mass/volume] in Serum or Plasma 10.0 MG/DL 8.4 - 10.2 [facility] Bilirubin.total [Mass/volume] in Serum or Plasma <0.7 MG/DL 0.2 - 1.3 [facility] Alkaline phosphatase [Enzymatic activity/volume] in Serum or Plasma 94 U/L 38 - 126 [facility] Aspartate aminotransferase [Enzymatic activity/volume] in Serum or Plasma 22 U/L 5 - 40 [facility] Alanine aminotransferase [Enzymatic activity/volume] in Seru m or Plasma 31 U/L 7 - 56 [facility] Anion gap 3 in Serum or Plasma 10.0 mmol/L 8.0 - 16.0 [facility] AGE 65 yrs [facility] NON-AA GFR 40 mL/min [facility] AFR AMER GFR >60 [facility] Male GFR In terprentation [...] >32 mL/min Normal ID Date Data Source [id number] 08/31/2020 02:11:00 PM EDT [facility] Name Value Range Interpretation Code Description Data Aminta rce(s) Supporting Document(s) Magnesium [Mass/volume] in Serum or Plasma 1.9 MG/DL 1.7 - 2.2 [facility] ID Date Data Source [id number] 08/31/2020 01:41:00 PM EDT [facility] Name Value Range Interpretation Code Description Data Aminta rce(s) Supporting Document(s) CBC W/AUTOMATED DIFF [facility] COMPLETE BLOOD COUNT Leukocytes [#/volume] in Blood by Automated count 5.7 10^3/uL 4.2 - 1 1.0 [facility] Erythrocytes [#/volume] in Blood by Automated count 3.67 10^6/uL 4. 20 - 5.40 L [facility] Hemoglobin [Mass/volume] in Blood 12.5 g/dL 12.0 - 16.0 [facility] Hematocrit [Volume Fraction] of Blood by Automated count 35.9 % 3 7.0 - 47.0 L [facility] Erythrocyte mean corpuscular volume [Entitic volume] by Auto mated count 97.8 fL 81.0 - 101 [facility] Erythrocyte mean corpuscular hemoglobin [Entitic mass] by Automated count 34.1 pg 27.0 - 34.0 H [facility] Erythrocyte mean corpuscular hemoglobin concentration [Mass/volume] by Automated count 34.8 g/dL 31.0 - 36.0 [facility] Erythrocyte distribution width [Ratio] by Automated count 13.4 % 11.5 - 14.5 [facility] Platelets [#/volume] in Blood by Automated count 159 10^3/uL 150 - 45 0 [facility] Platelet mean volume [Entitic volume] in Blood by Automated count 10.3 fL 7.4 - 10.4 [facility] Neutrophils/100 leukocytes in Blood by Automated count 61.6 % 37. 0 - 80.0 [facility] Lymphocytes/100 leukocytes in Blood by Manual count 24.6 % 25.0 - 40.0 L [facility] Monocytes/100 leukocytes in Blood by Automated count 10.5 % 3.0 - 8.0 H [facility] Eosinophils/100 leukocytes in Blood by Automated count 2.8 % 0.0 - 7.0 [facility] Basophils/100 leukocytes in Blood by Automated count 0.3 % 0.0 - 2.5 [facility] %IG 0.2 % 0.0 - 0.0 [facility] Hospit al %NRBC 0.0 % 0.0 - 0.0 [facility] al Neutrophils [#/volume] in Blood by Automated count 3.54 10^3/uL 2.00 - 6.90 [facility] Lymphocytes [#/volume] in Blood by Automated count 1.41 10^3/uL 0.60 - 3.40 [facility] Monocytes [#/volume] in Blood by Automated count 0.60 10^3/uL 0.00 - 0.90 [facility] Eosinophils [#/volume] in Blood by Automated count 0.16 10^3/uL 0.00 - 0.70 [facility] Basophils [#/volume] in Blood by Automated count 0.02 10^3/uL 0.00 - 0.20 [facility] #IG 0.01 10^3/uL 0.00 - 0.10 [facility] H ospital #NRBC 0.00 10^3/uL 0.00 - 0.00 [facility] MANUAL DIFF NOT INDICATED [facility] RBC MORPH NOT INDICATED [facility] ID Date Data Source [id number] 08/18/2020 10:36:26 AM EDT [facility] Hospital Name Value Range Interpretation Code Description Data Aminta rce(s) Supporting Document(s) Progress Note [facility] [id number]Z9NFmPEtAnNhUdYPGi m [file] ICAgICAgICAgICAgICAgICAgICAgICAgICAgICAgICAgICAgICAgICAgICAgICAgICAgICAgICAgICAg ICAgICAgICAgICAgICAgICAgICAgDQogICAgICAgICAgICAgICAgICAgICAgICAgICAgICAgICAgICAg ICAgICAgICAgICAgICAgICAgICAgICAgICAgICAgIC AgICAgICAgICAgICAgICAgICAgICAgICAgICAgICAgDQogICAgICAgICAgICAgICAgICAgICAgICAgIC AgICAgICAgICAgICAgICAgICAgICAgICAgICAgICAgICAgICAgICAgICAgICAgICAgICAgICAgICAgIC AgICAgICAgICAgICAgDQogICAgICAgICAgICAgICAg ICAgICAgICAgICAgICAgICAgICAgICAgICAgICAgICAgICAgICAgICAgICAgICAgICAgICAgICAgICAg ICAgICAgICAgICAgICAgICAgICAgICAgDQogICAgICAgICAgICAgICAgICAgICAgICAgICAgICAgICAg ICAgICAgICAgICAgICAgICAgICAgICAgICAgICAgIC AgICAgICAgICAgICAgICAgICAgICAgICAgICAgICAgICAgDQogICAgICAgICAgICAgICAgICAgICAgIC AgICAgICAgICAgICAgICAgICAgICAgICAgICAgICAgICAgICAgICAgICAgICAgICAgICAgICAgICAgIC AgICAgICAgICAgICAgICAgDQogICAgICAgICAgICAg ICAgICAgICAgICAgICAgICAgICAgICAgICAgICAgICAgICAgICAgICAgICAgICAgICAgICAgICAgICAg ICAgICAgICAgICAgICAgICAgICAgICAgICAgDQogICAgICAgICAgICAgICAgICAgICAgICAgICAgICAg ICAgICAgICAgICAgICAgICAgICAgICAgICAgICAgIC AgICAgICAgICAgICAgICAgICAgICAgICAgICAgICAgICAgICAgDQogICAgICAgICAgICAgICAgICAgIC AgICAgICAgICAgICAgICAgICAgICAgICAgICAgICAgICAgICAgICAgICAgICAgICAgICAgICAgICAgIC AgICAgICAgICAgICAgICAgICAgDQogICAgICAgICAg ICAgICAgICAgICAgICAgICAgICAgICAgICAgICAgICAgICAgICAgICAgICAgICAgICAgICAgICAgICAg GFLqLDXpJKDzCANnWXYtDELdFMDmAVWhUDQbTRSgTEc1W3hyVSRoEYBfWL3kFKb9Hf7+DQoNCmVuZHN0 boMovQ4KYC2sm3MrQEihYFEdy2ClTPh9BZ2ZKFQnDH yyBY0WRWpnnc2MXUDxCFFupVYHl2czJmHcXCP2BEHnDnqhCD0JVRKkM5naqxToZAOdBMEDJX8IFkLqV0 JjaW06RYSPYd9+JZmeuoKrWcnEEbW1YFAzk4TwCIt5YS3RKKEoVcvxy1NcAsTyRPPLEKjzOO6CHJZ5BM AoZRPxDi5QYEDuE808umPlDF5VGq6SSoCzRU5nij9B AmVqFQShMsbINiu4OIfkTR7NkZTcEOgGnb4vybXtqoJLj2PghwIleFWMKCGvlXRHNWVsHPBdOImkGAPC EnFqnWZuXR6oJs9hDLJuDOFkWsCmLVDKQC5IFTQlXKDbaOJeVEXvHXNNHC6FYQglINZ3UQVenwNbqXNc GRswOQ6XZQBwqzKsBIoeUTWQODx+Kx2KAM8iv5GvNW jaMOYuWQ7lcf6OPYePVcIzE5V5sUXuH9J5RLqrWe5KRJHnTDAoVBnaONXXFFhhCU8NUM1yjbM7BE4BtZ GkETCsFBPrdLUoWTs6E76liSCgMTrvWM7JNJG+Jovita+Wo2BZWYiKFBgOYYbDaZlSQPBDaNrJ0RuS4FWu9 IlD8NrPV14fBbqpuWyFQhbYY7ILJ8xWXXsBVLHCV0Z dCLqdR2jytVoHDIfFWQTGaDdA14kmDNcZOCpYHN5GJVjUq0TDDQpE8FqtwBikWjfzmMpVEKlOLNGDG4B RLtaguTypUNprNzwNI55uTmiJP4VSj2JUcSsTT2pvx7PdVSkSl2DLHTpHh9IUXGhVMEdOBUdNQL9EGOr IpVzHQrnBEToISDzLWS4HYUsFYYrHF7PGjUqVRVdLI ghYXBzPYYaTEIwtk4IIESnAHBxMTikCRAiBSDaMLUlXFwnAPRqORZiNKJ9FGVhTDMuMY2HYrPxQTDbUG MzYgfwVTYyXSHysr6JRGSgHTIqWhVnXoLgGDRgBOUiKDhcRGNjXIIwQAkwCSVcGDRtNQ5EJpFrMAJkAF GhFExkDMPfSJKkbr0IWRAxKRIuQhG0PpIbMCXzFLJo PIjiWYGmCFS6QDE8BUDiGASmNA7UPqUhZRQdRWO6CipbKBQvSUYnym9RYWUoXEQqFAnpQVRqTWAnVSNy TOlvRQQcDUC0SsL1PIZiZJVlOO0YGgFgSVVuVIC7OJFpQBJkWNPgsw2ZEOVzCDWyRku6FNTzDBOdAIJa OJmnHUTnSUJ4NSZ6NGEtTHKmGI2CNbDvBPYnMZolKT ZgMVXcRAUczo8GBPRxWNAmNiH2IPPeEIWuFEQoWGotDXXkTHD2SFV4ISAlFBGfWF9ORmKbFPVvQPiqDW znCVUlAUEmin2YDOFjBUVqREP6EPFbIIIhBNYyMGv0rbDwzFKePVv1PA6TV4WfyoMzPpWRCo4Ti507XX GaNXOcRt9SS9muLf4xTOTyMGRNCl7ZKWe1NCJ8HOR7 N8BrJRzyS9S8ArGaLNTcKwnbHcgbDiz8UgK+CSzsVGJ4KDN8N8N5NNQiTXDgBVM6YFZdV8Z0C9B0HDik QZ8aOZSLYi4+CPbovSDodMbzSKUUCfY3QBm3HYuhUJTPKw2A ID Date Data Source [id number] 08/19/2020 11:46:01 AM EDT [facility] Value Range Interpretation Code Description Data Aminta rce(s) Supporting Document(s) Specimen source [Identifier] of Unspecified specimen [facility] SARS-CoV-2 RNA 2018 nCoV Real-Time RT-PCR: NOT DETECTED [facility] Assay Performed [facility] Initial validation was performed by the Centers for Disease Control and Prevention (CDC) and additionally validated by the Dept. of Pathology [facility]. Negative results do not preclude SARS-CoV-2 infection and should not be used as the sole basis for patient management decisions.Additional information is available on the following FDA websites for health care providers and patients. https://www.fda.gov/media/858013/download, https://www.fda.gov/media/876802/download. 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[facility] Patient has symptoms related to [facility] When did you start to experience these symptoms [Date and time] [Phen X] [facility] Patient was hospitalized because of this condition [facility] patient was admitted to ICU for [facility] Patient resides in a congregate care setting [facility] status [facility] ID Date Data Source [id number] 08/18/2020 10:36:00 AM EDT [facility] Name Value Range Interpretation Code Description Data Aminta rce(s) Supporting Document(s) SARS-CoV-2 RNA [facility] This lab was ordered by [facility] and reported by [facility]. Procedure Social History Code Duration Value Status Description Data Source(s ) Smoking 09/03/2021 12:00:00 AM EDT Never Smoker completed Never S moker eCW1 ([facility]) Smoking 08/11/2021 12:00:00 AM EDT Never Smoker completed Never S moker eCW1 ([facility]) Smoking 05/11/2021 12:00:00 AM EDT Never Smoker completed Never S moker eCW1 ([facility]) Smoking 05/11/2021 12:00:00 AM EDT Never Smoker completed Never S moker eCW1 ([facility]) Smoking 05/11/2021 12:00:00 AM EDT Never Smoker completed Never S moker eCW1 ([facility]) Smoking 05/11/2021 12:00:00 AM EDT Never Smoker completed Never S moker eCW1 ([facility]) Smoking 05/04/2021 12:00:00 AM EDT Never Smoker completed Never S moker eCW1 ([facility]) Smoking 05/04/2021 12:00:00 AM EDT Never Smoker completed Never S moker eCW1 ([facility]) Smoking 04/01/2021 12:00:00 AM EDT Never Smoker completed Never S moker eCW1 ([facility]) Smoking 04/01/2021 12:00:00 AM EDT Never Smoker completed Never S moker eCW1 ([facility]) Smoking 04/01/2021 12:00:00 AM EDT Never Smoker completed Never S moker eCW1 ([facility]) Smoking 04/01/2021 12:00:00 AM EDT Never Smoker completed Never S moker eCW1 ([facility]) Smoking 04/01/2021 12:00:00 AM EDT Never Smoker completed Never S moker eCW1 ([facility]) Smoking 03/04/2021 12:00:00 AM EDT Never Smoker completed Never S moker eCW1 ([facility]) Smoking 03/04/2021 12:00:00 AM EDT Never Smoker completed Never S moker eCW1 ([facility]) Smoking 03/04/2021 12:00:00 AM EDT Never Smoker completed Never S moker eCW1 ([facility]) Smoking 03/04/2021 12:00:00 AM EDT Never Smoker completed Never S moker eCW1 ([facility]) Smoking 03/04/2021 12:00:00 AM EDT Never Smoker completed Never S moker eCW1 ([facility]) Smoking 03/04/2021 12:00:00 AM EDT Never Smoker completed Never S moker eCW1 ([facility]) Smoking 02/18/2021 12:00:00 AM EDT Never Smoker completed Never S moker eCW1 ([facility]) Smoking 02/18/2021 12:00:00 AM EDT Never Smoker completed Never S moker eCW1 ([facility]) Smoking 02/18/2021 12:00:00 AM EDT Never Smoker completed Never S moker eCW1 ([facility]) Smoking 02/18/2021 12:00:00 AM EDT Never Smoker completed Never S moker eCW1 ([facility]) Smoking 02/18/2021 12:00:00 AM EDT Never Smoker completed Never S moker eCW1 ([facility]) Smoking 02/10/2021 12:00:00 AM EDT Patient has never smoked co mpleted Patient has never smoked MEDENT ([facility]) Smoking 02/04/2021 12:00:00 AM EDT Never Smoker completed Never S moker eCW1 ([facility]) Smoking 02/04/2021 12:00:00 AM EDT Never Smoker completed Never S moker eCW1 ([facility]) Smoking 01/27/2021 12:00:00 AM EDT Never Smoker completed Never S moker eCW1 ([facility]) Smoking 01/27/2021 12:00:00 AM EDT Never Smoker completed Never S moker eCW1 ([facility]) Smoking 01/19/2021 12:00:00 AM EDT Never Smoker completed Never S moker eCW1 ([facility]) Smoking 12/15/2020 12:00:00 AM EST Never Smoker completed Never S moker eCW1 ([facility]) Smoking 12/15/2020 12:00:00 AM EST Never Smoker completed Never S moker eCW1 ([facility]) Smoking 12/15/2020 12:00:00 AM EST Never Smoker completed Never S moker eCW1 ([facility]) Smoking 12/15/2020 12:00:00 AM EST Never Smoker completed Never S moker eCW1 ([facility]) Smoking 11/17/2020 12:00:00 AM EST Never Smoker completed Never S moker eCW1 ([facility]) Smoking 11/17/2020 12:00:00 AM EST Never Smoker completed Never S moker eCW1 ([facility]) Smoking 10/22/2020 12:00:00 AM EST Never Smoker completed Never S moker eCW1 ([facility]) Smoking 10/22/2020 12:00:00 AM EST Never Smoker completed Never S moker eCW1 ([facility]) Smoking 10/22/2020 12:00:00 AM EST Never Smoker completed Never S moker eCW1 ([facility]) Caffeine Use Details 10/13/2020 12:00:00 AM EST completed soda, 1 cup [employer] ([facility]) Smoking 10/13/2020 12:00:00 AM EST Unknown if ever smoked comp leted Unknown if ever smoked [employer] ([facility]) Smoking 09/24/2020 12:00:00 AM EST Patient has never smoked co mpleted Patient has never smoked MEDENT ([facility]) Smoking 09/22/2020 12:00:00 AM EST Never Smoker completed Never S moker eCW1 ([facility]) Smoking 09/22/2020 12:00:00 AM EST Never Smoker completed Never S moker eCW1 ([facility]) Smoking 09/22/2020 12:00:00 AM EST Never Smoker completed Never S moker eCW1 ([facility]) Smoking 08/11/2020 12:00:00 AM EDT Never Smoker completed Never S moker eCW1 ([facility]) Smoking 08/11/2020 12:00:00 AM EDT Never Smoker completed Never S moker eCW1 ([facility]) Smoking 08/11/2020 12:00:00 AM EDT Never Smoker completed Never S moker eCW1 ([facility]) Smoking 08/11/2020 12:00:00 AM EDT Never Smoker completed Never S moker eCW1 ([facility]) Smoking 08/11/2020 12:00:00 AM EDT Never Smoker completed Never S moker eCW1 ([facility]) Smoking 08/11/2020 12:00:00 AM EDT Never Smoker completed Never S moker eCW1 ([facility]) Smoking 08/11/2020 12:00:00 AM EDT Never Smoker completed Never S moker eCW1 ([facility]) Smoking 08/11/2020 12:00:00 AM EDT Never Smoker completed Never S moker eCW1 ([facility]) Smoking 08/11/2020 12:00:00 AM EDT Never Smoker completed Never S moker eCW1 ([facility]) Vital Signs ID Date Data Source UNK Name Value Range Interpretation Code Description Data Source(s) Body weight 213.0 [lb_av] 213.0 [lb_av] eCW1 ([facility]) Body weight 96.62 kg 96.62 kg eCW1 ([facility]) Body height 65.5 [in_i] 65.5 [in_i] eCW1 ([facility]) Body mass index (BMI) [Ratio] 34.90 kg/m2 34.90 kg/m2 eCW1 ([facility]) Heart rate 59 /min 59 /min eCW1 ([facility]) Respiratory rate 18 /min 18 /min eCW1 ([facility]) Body temperature 97.9 [degF] 97.9 [degF] eCW1 ( [facility]) Systolic blood pressure 122 mm[Hg] 122 mm[Hg] e CW1 ([facility]) Diastolic blood pressure 60 mm[Hg] 60 mm[Hg] eCW1 ([facility]) Systolic blood pressure 118 mm[Hg] 118 mm[Hg] M EDENT ([facility]) Diastolic blood pressure 70 mm[Hg] 70 mm[Hg] MEDENT ([facility]) Heart rate 63 /min 63 /min MEDENT ([facility]) Body temperature 97.5 [degF] 97.5 [degF] MEDENT ([facility]) Respiratory rate 16 /min 16 /min MEDENT ( [facility]) Oxygen saturation in Arterial blood by Pulse oximetry 100 % 100 % MEDENT ([facility]) Body weight 222 [lb_av] 222 [lb_av] eCW1 ([facility]) Body weight 100.7 kg 100.7 kg W1 ([facility]) Body height 65.5 [in_i] 65.5 [in_i] eCW1 ([facility]) Body mass index (BMI) [Ratio] 36.38 kg/m2 36.38 kg/m2 W1 ([facility]) Heart rate 62 /min 62 /min eCW1 ([facility]) Respiratory rate 18 /min 18 /min eCW1 ([facility]) Body temperature 97.8 [degF] 97.8 [degF] eCW1 ( [facility]) Systolic blood pressure 126 mm[Hg] 126 mm[Hg] e CW1 ([facility]) Diastolic blood pressure 66 mm[Hg] 66 mm[Hg] eCW1 ([facility]) Body weight 219 [lb_av] 219 [lb_av] eCW1 ([facility]) Systolic blood pressure 116 mm[Hg] 116 mm[Hg] e CW1 ([facility]) Heart rate 65 /min 65 /min eCW1 ([facility]) Diastolic blood pressure 55 mm[Hg] 55 mm[Hg] eCW1 ([facility]) Body height 65.5 [in_i] 65.5 [in_i] eCW1 ([facility]) Respiratory rate 16 /min 16 /min eCW1 ([facility]) Body mass index (BMI) [Ratio] 35.89 kg/m2 35.89 kg/m2 eCW1 ([facility]) Body temperature 98.0 [degF] 98.0 [degF] eCW1 ( [facility]) Body weight 225 [lb_av] 225 [lb_av] eCW1 ([facility]) Body height 65.5 [in_i] 65.5 [in_i] eCW1 ([facility]) Body mass index (BMI) [Ratio] 36.87 kg/m2 36.87 kg/m2 eCW1 ([facility]) Heart rate 66 /min 66 /min eCW1 ([facility]) Respiratory rate 17 /min 17 /min eCW1 ([facility]) Body temperature 98.5 [degF] 98.5 [degF] eCW1 ( [facility]) Systolic blood pressure 133 mm[Hg] 133 mm[Hg] e CW1 ([facility]) Diastolic blood pressure 64 mm[Hg] 64 mm[Hg] eCW1 ([facility]) Body weight 224 [lb_av] 224 [lb_av] eCW1 ([facility]) Body height 65.5 [in_i] 65.5 [in_i] eCW1 ([facility]) Respiratory rate 18 /min 18 /min eCW1 ([facility]) Body mass index (BMI) [Ratio] 36.70 kg/m2 36.70 kg/m2 eCW1 ([facility]) Heart rate 68 /min 68 /min eCW1 ([facility]) Body temperature 97.8 [degF] 97.8 [degF] eCW1 ( [facility]) Systolic blood pressure 153 mm[Hg] 153 mm[Hg] e CW1 ([facility]) Diastolic blood pressure 69 mm[Hg] 69 mm[Hg] eCW1 ([facility]) Body height 65 [in_i] 65 [in_i] MEDENT ([facility]) 5'5" Body weight 222.00 [lb_av] 222.00 [lb_av] MEDEN T ([facility]) Body mass index (BMI) [Ratio] 36.9 kg/m2 36.9 k g/m2 MEDENT ([facility]) Heart rate 61 /min 61 /min MEDENT ([facility]) Systolic blood pressure--sitting 142 mm[Hg] 142 mm[Hg] MEDENT ([facility]) Ra, large cuff Diastolic blood pressure--sitting 78 mm[Hg] 78 mm[Hg] MEDENT ([facility]) Ra, large cuff Systolic blood pressure--supine 148 mm[Hg] 148 mm[Hg] MEDENT ([facility]) Ra, large cuff Diastolic blood pressure--supine 80 mm[Hg] 80 mm[Hg] MEDENT ([facility]) Ra, large cuff Systolic blood pressure--standing 138 mm[Hg] 13 8 mm[Hg] MEDENT ([facility]) Ra, large cuff Diastolic blood pressure--standing 78 mm[Hg] 7 8 mm[Hg] MEDENT ([facility]) Ra, large cuff Body weight 223 [lb_av] 223 [lb_av] eCW1 ([facility]) Body height 65.5 [in_i] 65.5 [in_i] W1 ([facility]) Body mass index (BMI) [Ratio] 36.54 kg/m2 36.54 kg/m2 eCW1 ([facility]) Heart rate 65 /min 65 /min eCW1 ([facility]) Respiratory rate 18 /min 18 /min eCW1 ([facility]) Body temperature 97.9 [degF] 97.9 [degF] eCW1 ( [facility]) Systolic blood pressure 128 mm[Hg] 128 mm[Hg] e CW1 ([facility]) Diastolic blood pressure mm[Hg] eCW1 ([facility]) Systolic blood pressure 128 mm[Hg] 128 mm[Hg] M EDENT ([facility]) Diastolic blood pressure 80 mm[Hg] 80 mm[Hg] MEDENT ([facility], ) Heart rate 72 /min 72 /min [facility] ([facility]) Oxygen saturation in Arterial blood by Pulse oximetry 97 % 97 % [facility] (Health system) Room Air Body height 66 [in_i] 66 [in_i] [facility] ([facility]) 5'6" Body weight 214.00 [lb_av] 214.00 [lb_av] MEDEN T (Health system) Body mass index (BMI) [Ratio] 34.5 kg/m2 34.5 k g/m2 [facility] (Health system) [place] body weight 130 [lb_av] 130 [lb_av] MEDEN T (Health system) Body weight 97.070 kg 97.070 kg [facility] ([facility]) Body weight 219 [lb_av] 219 [lb_av] eCW1 ([facility]) Body height 65.5 [in_i] 65.5 [in_i] W1 ([facility]) Body mass index (BMI) [Ratio] 35.89 kg/m2 35.89 kg/m2 W1 ([facility]) Heart rate 81 /min 81 /min eCW1 ([facility]) Respiratory rate 18 /min 18 /min eCW1 ([facility]) Body temperature 96.3 [degF] 96.3 [degF] eCW1 ( [facility]) Systolic blood pressure 131 mm[Hg] 131 mm[Hg] e CW1 ([facility]) Diastolic blood pressure 62 mm[Hg] 62 mm[Hg] eCW1 ([facility]) Body weight 218 [lb_av] 218 [lb_av] eCW1 ([facility]) Body height 65.5 [in_i] 65.5 [in_i] eCW1 ([facility]) Body mass index (BMI) [Ratio] 35.72 kg/m2 35.72 kg/m2 [facility] ([facility]) Heart rate 60 /min 60 /min eCW1 ([facility]) Respiratory rate 18 /min 18 /min eCW1 ([facility]) Body temperature 97.6 [degF] 97.6 [degF] eCW1 ( [facility]) Systolic blood pressure 161 mm[Hg] 161 mm[Hg] e CW1 ([facility]) Diastolic blood pressure 72 mm[Hg] 72 mm[Hg] eCW1 ([facility]) Patient Treatment Plan of Care Planned Activity Planned Date Details Description Data Source (s) Lorazepam 1 MG Oral Tablet 09/29/2021 12:00:00 AM EST eCW1 ([facility]) Lorazepam 1 MG Oral Tablet 06/15/2021 12:00:00 AM EDT eCW1 ([facility]) Mupirocin 20 MG/ML Topical Cream 05/04/2021 12:00:00 AM EDT eCW1 ([facility]) carbamide peroxide 65 MG/ML Otic Solution [Debrox] 05/04/2021 12 :00:00 AM EDT eCW1 ([facility]) Mupirocin 20 MG/ML Topical Cream 05/04/2021 12:00:00 AM EDT eCW1 ([facility]) carbamide peroxide 65 MG/ML Otic Solution [Debrox] 05/04/2021 12 :00:00 AM EDT eCW1 ([facility]) Escitalopram 5 MG Oral Tablet [Lexapro] 03/26/2021 12:00:00 AM EDT eCW1 ([facility]) Escitalopram 5 MG Oral Tablet [Lexapro] 03/26/2021 12:00:00 AM EDT eCW1 ([facility]) Escitalopram 5 MG Oral Tablet [Lexapro] 03/26/2021 12:00:00 AM EDT eCW1 ([facility]) Escitalopram 5 MG Oral Tablet [Lexapro] 12/15/2020 12:00:00 AM EST eCW1 ([facility]) Escitalopram 5 MG Oral Tablet [Lexapro] 12/15/2020 12:00:00 AM EST eCW1 ([facility]) Escitalopram 5 MG Oral Tablet [Lexapro] 12/15/2020 12:00:00 AM EST eCW1 ([facility]) Escitalopram 5 MG Oral Tablet [Lexapro] 12/15/2020 12:00:00 AM EST eCW1 ([facility]) Escitalopram 5 MG Oral Tablet [Lexapro] 12/15/2020 12:00:00 AM EST eCW1 ([facility]) Escitalopram 5 MG Oral Tablet [Lexapro] 12/15/2020 12:00:00 AM EST eCW1 ([facility]) Escitalopram 5 MG Oral Tablet [Lexapro] 12/15/2020 12:00:00 AM EST eCW1 ([facility]) Escitalopram 5 MG Oral Tablet [Lexapro] 12/15/2020 12:00:00 AM EST eCW1 ([facility]) Escitalopram 5 MG Oral Tablet [Lexapro] 12/15/2020 12:00:00 AM EST eCW1 ([facility]) Escitalopram 5 MG Oral Tablet [Lexapro] 12/15/2020 12:00:00 AM EST eCW1 ([facility]) Cephalexin 500 MG Oral Capsule [Keflex] 09/22/2020 12:00:00 AM EST eCW1 ([facility]) Cephalexin 500 MG Oral Capsule [Keflex] 09/22/2020 12:00:00 AM EST eCW1 ([facility]) Cephalexin 500 MG Oral Capsule [Keflex] 09/22/2020 12:00:00 AM EST eCW1 ([facility]) Ondansetron 4 MG Disintegrating Oral Tablet 08/18/2020 12:00:00 AM EDT eCW1 ([facility]) Ondansetron 4 MG Disintegrating Oral Tablet 08/18/2020 12:00:00 AM EDT eCW1 ([facility]) Ondansetron 4 MG Disintegrating Oral Tablet 08/18/2020 12:00:00 AM EDT eCW1 ([facility]) Ondansetron 4 MG Disintegrating Oral Tablet 08/18/2020 12:00:00 AM EDT eCW1 ([facility]) Ondansetron 4 MG Disintegrating Oral Tablet 08/18/2020 12:00:00 AM EDT eCW1 ([facility]) Ondansetron 4 MG Disintegrating Oral Tablet 08/18/2020 12:00:00 AM EDT eCW1 ([facility]) Ondansetron 4 MG Disintegrating Oral Tablet 08/18/2020 12:00:00 AM EDT eCW1 ([facility]) Ondansetron 4 MG Disintegrating Oral Tablet 08/18/2020 12:00:00 AM EDT eCW1 ([facility]) Ondansetron 4 MG Disintegrating Oral Tablet 08/18/2020 12:00:00 AM EDT eCW1 ([facility])
[2021-10-06 05:27] LABS: ALBUMIN 3.5 GM/DL (3.2-5.2); BILIRUBIN,TOTAL 0.5 MG/DL (0.2-1.0); CREATININE FOR GFR 1.63 MG/DL (0.55-1.30); GLOMERULAR FILTRATION RATE 33.8 (>45); MAGNESIUM LEVEL 2.1 MG/DL (1.8-2.4); POTASSIUM SERUM 4.4 MEQ/L (3.5-5.1); THYROID STIMULATING HORMONE 1.81 uIU/ML (0.358-3.740); TOTAL PROTEIN 6.2 GM/DL (6.4-8.2)
[2021-10-06] MEDS ORDERED: diphenhydrAMINE 50MG/ML VIAL (J1200) IV STA (07:03)
[2021-10-06 07:25] LABS: THYROID STIMULATING HORMONE 1.76 uIU/ML (0.358-3.740)
[2021-10-06] MEDS ORDERED: BENZTROPINE 2 MG TAB PO ONE (09:00)
--- NOTE | 2021-10-06 09:04 | ECGEPIP ---
[facility] - ED Test Date: 2021-10-06 Pat Name: ROLAND ASHFORD Department: Room: - Gender: Female Vasc Tech: CALI : 1955 Requested By: SALBADOR Bradford Order Number: [id number] Reading MD: Jake German Measurements Intervals [place] Rate: 90 P: 79 [place]: 190 QRS: 0 QRSD: 108 T: 40 QT: 402 QTc: 491 Interpretive Statements Normal sinus rhythm Incomplete left bundle branch block Prolonged QT SIMILAR TO 10/02/21 Electronically Signed on 10-06-2021 9:04:00 EST by Jake German
[2021-10-06 09:31] LABS: PROLACTIN 4.6 NG/ML
[2021-10-06 09:32] LABS: PTH INTACT 21.4 PG/ML (18.5-88.0)
[2021-10-06] MEDS ORDERED: NS 500 ML IV ONE (10:45)
[2021-10-06 11:51] VITALS: BP 160/80
== END 2021-10-06 12:09 | disposition home or self-care (01) ==
LOC: M ED 15:56
DX: G24.01 Drug induced subacute dyskinesia (principal); I44.7 Left bundle-branch block, unspecified; E11.9 Type 2 diabetes mellitus without complications; N18.30 Chronic kidney disease, stage 3 unspecified; M32.9 Systemic lupus erythematosus, unspecified; M79.7 Fibromyalgia; Z79.899 Other long term (current) drug therapy; Z79.82 Long term (current) use of aspirin; Z79.4 Long term (current) use of insulin; Z88.0 Allergy status to penicillin; Z88.1 Allergy status to other antibiotic agents; Z88.8 Allergy status to other drugs, medicaments and biological substances; Z91.018 Allergy to other foods; Z91.041 Radiographic dye allergy status; Z91.048 Other nonmedicinal substance allergy status
CPT/HCPCS: 36415; 80053; 81001; 82140; 82525; 82570; 83735; 83970; 84146; 84443; 84484; 85025; 87088; 87186; 93005; 96374; 99284; J1200

== ENCOUNTER → 2021-10-18 | Outpatient (REF) | payer MEDICARE, OTHER ==
[2021-10-18 12:45] LABS: BASO % 0.4 % (0.0-1.0); EOS # 0.3 10^3/uL (0.0-0.5); EOS % 3.6 % (0.0-3.0); HEMATOCRIT 29.6 % (36.0-47.0); HEMOGLOBIN 10.2 g/dl (12.0-15.5); LYMPH # 1.8 10^3/uL (1.5-5.0); LYMPH % 21.7 % (24.0-44.0); MEAN CORPUSCULAR HEMOGLOBIN 34.5 pg (27.0-33.0); MEAN CORPUSCULAR HGB CONC 34.5 g/dl (32.0-36.5); MONO # 0.9 10^3/uL (0.0-0.8); MONO % 11.2 % (2.0-8.0); NEUTROPHILS # 5.2 10^3/uL (1.5-8.5); NEUTROPHILS % 62.7 % (36.0-66.0); PLATELET COUNT, AUTOMATED 215 10^3/uL (150-450); RED BLOOD COUNT 2.96 10^6/uL (4.00-5.40); WHITE BLOOD COUNT 8.3 10^3/uL (4.0-10.0)
[2021-10-18 14:39] LABS: ALBUMIN 3.4 GM/DL (3.2-5.2); BILIRUBIN,TOTAL 0.3 MG/DL (0.2-1.0); CALCIUM LEVEL 9.3 MG/DL (8.8-10.2); CREATININE FOR GFR 1.64 MG/DL (0.55-1.30); GLOMERULAR FILTRATION RATE 33.6 (>45); MAGNESIUM LEVEL 2.5 MG/DL (1.8-2.4); POTASSIUM SERUM 3.8 MEQ/L (3.5-5.1); TOTAL PROTEIN 6.2 GM/DL (6.4-8.2)
== END ==
LOC: M LAB REF 11:27
PROVIDERS: ATTEND Internal Medicine
DX: Z94.81 Bone marrow transplant status (principal)

== ENCOUNTER → 2021-11-01 | Outpatient (REF) | payer MEDICARE, OTHER ==
[~2021-11-01] MED LIST changes: -LISI-898 PO; +LISI5TAB11 PO; +LOSA100T45; +LOSA100T45 PO; -LOSA100T50; -LOSA100T50 PO; -MONT10TA10 PO; +MONT10TA97 PO
[2021-11-01 10:42] LABS: BASO % 0.3 % (0.0-1.0); EOS # 0.1 10^3/uL (0.0-0.5); EOS % 1.3 % (0.0-3.0); HEMATOCRIT 31.8 % (36.0-47.0); HEMOGLOBIN 10.7 g/dl (12.0-15.5); LYMPH # 1.2 10^3/uL (1.5-5.0); LYMPH % 16.5 % (24.0-44.0); MEAN CORPUSCULAR HEMOGLOBIN 34.2 pg (27.0-33.0); MEAN CORPUSCULAR HGB CONC 33.6 g/dl (32.0-36.5); MEAN CORPUSCULAR VOLUME 101.6 fl (80.0-96.0); MONO # 0.6 10^3/uL (0.0-0.8); MONO % 8.5 % (2.0-8.0); NEUTROPHILS # 5.5 10^3/uL (1.5-8.5); NEUTROPHILS % 73.1 % (36.0-66.0); PLATELET COUNT, AUTOMATED 196 10^3/uL (150-450); RED BLOOD COUNT 3.13 10^6/uL (4.00-5.40); WHITE BLOOD COUNT 7.5 10^3/uL (4.0-10.0)
[2021-11-01 14:23] LABS: ALBUMIN 3.3 GM/DL (3.2-5.2); BILIRUBIN,TOTAL 0.3 MG/DL (0.2-1.0); CALCIUM LEVEL 9.1 MG/DL (8.8-10.2); CREATININE FOR GFR 1.2 MG/DL (0.55-1.30); GLOMERULAR FILTRATION RATE 48.1 (>45); MAGNESIUM LEVEL 2.1 MG/DL (1.8-2.4); TOTAL PROTEIN 6.1 GM/DL (6.4-8.2)
== END ==
LOC: M LAB REF 10:27
PROVIDERS: ATTEND Internal Medicine
DX: Z94.81 Bone marrow transplant status (principal)

== ENCOUNTER 2021-11-07 02:00 | Emergency (ER) | payer MEDICARE, OTHER ==
[~2021-11-07] VITALS: Ht 165.1 cm; Wt 83.6 kg
[~2021-11-07 02:00] MED LIST changes: +LISI-898 PO; -LISI5TAB11 PO; -LOSA100T45; -LOSA100T45 PO; +LOSA100T50; +LOSA100T50 PO; +MONT10TA10 PO; -MONT10TA97 PO
[2021-11-07 03:38] LABS: BASO % 0.2 % (0.0-1.0); EOS # 0.2 10^3/uL (0.0-0.5); HEMATOCRIT 32.3 % (36.0-47.0); LYMPH % 23.8 % (24.0-44.0); MEAN CORPUSCULAR HEMOGLOBIN 34.7 pg (27.0-33.0); MEAN CORPUSCULAR HGB CONC 34.1 g/dl (32.0-36.5); MEAN CORPUSCULAR VOLUME 101.9 fl (80.0-96.0); MONO # 0.8 10^3/uL (0.0-0.8); MONO % 9.5 % (2.0-8.0); NEUTROPHILS # 5.4 10^3/uL (1.5-8.5); NEUTROPHILS % 64.4 % (36.0-66.0); PLATELET COUNT, AUTOMATED 175 10^3/uL (150-450); RED BLOOD COUNT 3.17 10^6/uL (4.00-5.40); WHITE BLOOD COUNT 8.4 10^3/uL (4.0-10.0)
[2021-11-07 04:15] LABS: CK-MB VALUE MASS < 1.0 NG/ML (<3.6); CPK CREATINE PHOSPHOKINASE 56 U/L (26-192); MB/CK RELATIVE INDEX 1.79 (< OR =4)
[2021-11-07 04:18] LABS: ALBUMIN 3.3 GM/DL (3.2-5.2); ALT/SGPT 44 U/L (12-78); BILIRUBIN,DIRECT < 0.1 MG/DL (0.0-0.2); BILIRUBIN,TOTAL 0.2 MG/DL (0.2-1.0); BLOOD UREA NITROGEN 45 MG/DL (7-18); CALCIUM LEVEL 9.4 MG/DL (8.8-10.2); CARBON DIOXIDE LEVEL 26 MEQ/L (21-32); CHLORIDE LEVEL 104 MEQ/L (98-107); CREATININE FOR GFR 1.48 MG/DL (0.55-1.30); FREE T4 0.98 NG/DL (0.76-1.46); GLOMERULAR FILTRATION RATE 37.8 (>45); GLUCOSE, FASTING 210 MG/DL (70-100); LIPASE 59 U/L (73-393); NT-PRO BNP 142 PG/ML (<125); POTASSIUM SERUM 3.8 MEQ/L (3.5-5.1); SODIUM LEVEL 138 MEQ/L (136-145); TOTAL PROTEIN 6.3 GM/DL (6.4-8.2)
[2021-11-07] MEDS ORDERED: methylPREDNISolone 125MG 2ML VIAL IV ONE (04:35)
[2021-11-07] MEDS ORDERED: diphenhydrAMINE 50MG/ML VIAL (J1200) IV STA (04:35)
[2021-11-07] MEDS ORDERED: ASPIRIN 81 MG CHEW TABLET PO ONE (04:35)
[2021-11-07 05:18] LABS: CK-MB VALUE MASS < 1.0 NG/ML (<3.6); CPK CREATINE PHOSPHOKINASE 41 U/L (26-192); MB/CK RELATIVE INDEX 2.44 (< OR =4)
[2021-11-07] MEDS ORDERED: ISOVUE-370 76% 100ML VIAL As Ordered ONE (05:20)
--- NOTE | 2021-11-07 06:11 | REPVR ---
PROCEDURE INFORMATION: Exam: CTA Chest With Contrast Exam date and time: 11/07/2021 5:35 AM Age: 66 years old Clinical indication: Pain; Chest pressure; Additional info: Chest pain TECHNIQUE: Imaging protocol: Computed tomographic angiography of the chest with contrast. 3D rendering (Not supervised by radiologist): MIP and/or 3D reconstructed images were created by the technologist. Radiation optimization: All CT scans at this facility use at least one of these dose optimization techniques: automated exposure control; mA and/or kV adjustment per patient size (includes targeted exams where dose is matched to clinical indication); or iterative reconstruction. Contrast material: ISOVUE 370; Contrast volume: 75 ml; Contrast route: INTRAVENOUS (IV); COMPARISON: 1. CT ANGIO CHEST 2018-09-22 17:[address] ANGIO CHEST 2015-10-26 22:35 FINDINGS: Tubes, catheters and devices: Right IJ central venous catheter tip in the low SVC. Question mild enhancement of the left lateral cardiac ventricular wall, correlate with EKG. Pulmonary arteries: The pulmonary arteries demonstrate moderate central enlargement, consistent with moderate pulmonary hypertension. No filling defects in the pulmonary arteries to suggest pulmonary emboli. Aorta: Unremarkable. No aortic aneurysm. No aortic dissection. Lungs: Dependent subsegmental pulmonary atelectasis. There is a pulmonary parenchymal calcification consistent with remote granulomatous organism exposure. Increased conspicuity, size, and density of the nodule in the left lower lobe superior segment, now has a small pleural tag with maximal diameter of approximately 1.5 cm, previously 1 cm. Suspicious, recommend 3 month follow-up CT, PET-CT, or biopsy. Pleural spaces: Unremarkable. No pneumothorax. No pleural effusion. Heart: Moderate coronary artery calcifications. Lymph nodes: Unremarkable. No enlarged lymph nodes. Bones/joints: Extensive costochondral calcifications. Soft tissues: Unremarkable. IMPRESSION: 1. Moderate coronary artery calcifications. 2. No filling defects in the pulmonary arteries to suggest pulmonary emboli. 3. Increased conspicuity, size, and density of the nodule in the left lower lobe superior segment, now has a small pleural tag with maximal diameter of approximately 1.5 cm, previously 1 cm. Suspicious, recommend 3 month follow-up CT, PET-CT, or biopsy. COMMENTS: As per Fleischner Society guidelines for follow-up and management of pulmonary nodules: Recommend initial follow-up chest CT at 3, 9 and 24 months. Consider contrast enhanced chest CT, PET scan and/or biopsy as clinically warranted. Electronically signed by: Krzysztof Parry On 11/07/2021 06:10:25 AM
--- NOTE | 2021-11-07 06:15 | REPVR ---
PROCEDURE INFORMATION: Exam: XR Chest Exam date and time: 11/07/2021 3:09 AM Age: 66 years old Clinical indication: Pain; Angina pectoris; Additional info: Chest pain TECHNIQUE: Imaging protocol: XR of the chest. Views: 1 view. COMPARISON: CT Chest without contrast 09/22/2021 12:42 PM FINDINGS: Tubes, catheters and devices: Chest port with its tip in the cephalad right atrium. Overlying EKG leads. Lungs: Lungs are well aerated. No consolidation. Pleural spaces: No significant pleural effusions. No pneumothorax. Heart/Mediastinum: Cardiomediastinal silhouette is stable. Bones/joints: Stable. Degenerative changes. Mild thoracic dextroscoliosis. IMPRESSION: No acute abnormalities are identified. Electronically signed by: Dat Peres On 11/07/2021 06:14:45 AM
[2021-11-07 06:33] LABS: CK-MB VALUE MASS < 1.0 NG/ML (<3.6); CPK CREATINE PHOSPHOKINASE 38 U/L (26-192); MB/CK RELATIVE INDEX 2.63 (< OR =4)
--- NOTE | 2021-11-07 07:16 | ED PDOC ---
Post-Departure Follow-Up radiology report faxed to amauri Ignacio Sarah MD Nov 07, 2021 07:16
[2021-11-07 08:03] VITALS: BP 158/96
--- NOTE | 2021-11-07 16:00 | ECGEPIP ---
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
--- NOTE | 2021-11-07 16:01 | ECGEPIP ---
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
--- NOTE | 2021-11-07 16:01 | ECGEPIP ---
[facility] - ED Test Date: 2021-11-07 Pat Name: ROLAND ASHFORD Department: Room: - Gender: Female Orthodontist: GEORGE : 1955 Requested By: ALESSANDRA Flores Order Number: [id number] Reading MD: Anita Vang Measurements Intervals [place] Rate: 90 P: 86 [place]: 200 QRS: -11 QRSD: 102 T: 40 QT: 398 QTc: 486 Interpretive Statements Normal sinus rhythm Minimal voltage criteria for LVH, may be normal variant ( Reggie product ) NSTTW abnormalities prolonged qtc similar 11/07/21 4:52 Electronically Signed on 11-07-2021 16:01:32 EST by Anita Vang
== END 2021-11-07 08:06 | disposition home or self-care (01) ==
LOC: M ED 02:00
DX: R07.9 Chest pain, unspecified (principal); R91.1 Solitary pulmonary nodule; I12.9 Hypertensive chronic kidney disease with stage 1 through stage 4 chronic kidney disease, or unspecified chronic kidney disease; N18.9 Chronic kidney disease, unspecified; F33.9 Major depressive disorder, recurrent, unspecified; F41.9 Anxiety disorder, unspecified; I48.91 Unspecified atrial fibrillation; G25.81 Restless legs syndrome; G47.33 Obstructive sleep apnea (adult) (pediatric); M32.9 Systemic lupus erythematosus, unspecified; M79.7 Fibromyalgia; E66.9 Obesity, unspecified; Z79.899 Other long term (current) drug therapy; Z79.82 Long term (current) use of aspirin; Z79.4 Long term (current) use of insulin; Z88.0 Allergy status to penicillin; Z88.1 Allergy status to other antibiotic agents; Z88.8 Allergy status to other drugs, medicaments and biological substances; Z91.018 Allergy to other foods; Z91.041 Radiographic dye allergy status; Z91.048 Other nonmedicinal substance allergy status
CPT/HCPCS: 71045; 71275; 80048; 80076; 82550; 82553; 83690; 83880; 84439; 84443; 84484; 85025; 93005; 93041; 94760; 96374; 96375; 99285; J1200; J2930; Q9967

== ENCOUNTER → 2021-11-15 | Outpatient (REF) | payer MEDICARE, OTHER ==
[~2021-11-15] MED LIST changes: -LISI-898 PO; +LISI5TAB11 PO; +LOSA100T45; +LOSA100T45 PO; -LOSA100T50; -LOSA100T50 PO; -MONT10TA10 PO; +MONT10TA97 PO
[2021-11-15 12:31] LABS: BASO % 0.3 % (0.0-1.0); EOS # 0.1 10^3/uL (0.0-0.5); EOS % 1.4 % (0.0-3.0); HEMATOCRIT 31.9 % (36.0-47.0); HEMOGLOBIN 10.8 g/dl (12.0-15.5); LYMPH # 1.8 10^3/uL (1.5-5.0); LYMPH % 25.9 % (24.0-44.0); MEAN CORPUSCULAR HEMOGLOBIN 33.9 pg (27.0-33.0); MEAN CORPUSCULAR HGB CONC 33.9 g/dl (32.0-36.5); MONO # 0.8 10^3/uL (0.0-0.8); MONO % 11.9 % (2.0-8.0); NEUTROPHILS # 4.2 10^3/uL (1.5-8.5); NEUTROPHILS % 59.9 % (36.0-66.0); PLATELET COUNT, AUTOMATED 183 10^3/uL (150-450); RED BLOOD COUNT 3.19 10^6/uL (4.00-5.40)
[2021-11-15 13:11] LABS: ALBUMIN 3.3 GM/DL (3.2-5.2); BILIRUBIN,TOTAL 0.2 MG/DL (0.2-1.0); CALCIUM LEVEL 9.8 MG/DL (8.8-10.2); CREATININE FOR GFR 1.28 MG/DL (0.55-1.30); GLOMERULAR FILTRATION RATE 44.7 (>45); POTASSIUM SERUM 4.3 MEQ/L (3.5-5.1); TOTAL PROTEIN 6.2 GM/DL (6.4-8.2)
== END ==
LOC: M LAB REF 11:04
PROVIDERS: ATTEND Internal Medicine
DX: Z94.81 Bone marrow transplant status (principal)

== ENCOUNTER → 2021-11-29 | Outpatient (REF) | payer MEDICARE, OTHER ==
[2021-11-29 10:49] LABS: BASO % 0.4 % (0.0-1.0); EOS # 0.2 10^3/uL (0.0-0.5); EOS % 2.4 % (0.0-3.0); HEMATOCRIT 32.7 % (36.0-47.0); HEMOGLOBIN 11.1 g/dl (12.0-15.5); LYMPH # 1.8 10^3/uL (1.5-5.0); LYMPH % 24.7 % (24.0-44.0); MEAN CORPUSCULAR HEMOGLOBIN 33.6 pg (27.0-33.0); MEAN CORPUSCULAR HGB CONC 33.9 g/dl (32.0-36.5); MEAN CORPUSCULAR VOLUME 99.1 fl (80.0-96.0); MONO # 0.8 10^3/uL (0.0-0.8); MONO % 10.5 % (2.0-8.0); NEUTROPHILS # 4.6 10^3/uL (1.5-8.5); NEUTROPHILS % 61.6 % (36.0-66.0); PLATELET COUNT, AUTOMATED 172 10^3/uL (150-450); WHITE BLOOD COUNT 7.5 10^3/uL (4.0-10.0)
== END ==
LOC: M LAB REF 10:22
PROVIDERS: ATTEND Internal Medicine
DX: Z94.81 Bone marrow transplant status (principal)

== ENCOUNTER → 2021-12-01 | Outpatient (REF) | payer MEDICARE, OTHER ==
[2021-12-01 12:41] LABS: BILIRUBIN,TOTAL 0.2 MG/DL (0.2-1.0); CALCIUM LEVEL 9.2 MG/DL (8.8-10.2); CREATININE FOR GFR 1.22 MG/DL (0.55-1.30); GLOMERULAR FILTRATION RATE 47.2 (>45); MAGNESIUM LEVEL 2.3 MG/DL (1.8-2.4); POTASSIUM SERUM 4.6 MEQ/L (3.5-5.1); TOTAL PROTEIN 6.1 GM/DL (6.4-8.2)
== END ==
LOC: M LAB REF 09:56
PROVIDERS: ATTEND Internal Medicine
DX: Z94.81 Bone marrow transplant status (principal)

== ENCOUNTER → 2021-12-13 | Outpatient (REF) | payer MEDICARE, OTHER | LOC: M LAB REF 17:34 | PROVIDERS: ATTEND Internal Medicine | DX: L65.9 Nonscarring hair loss, unspecified (principal) ==

== ENCOUNTER → 2021-12-13 | Outpatient (REF) | payer MEDICARE, OTHER ==
[2021-12-13 18:54] LABS: BASO % 0.4 % (0.0-1.0); EOS # 0.1 10^3/uL (0.0-0.5); EOS % 0.9 % (0.0-3.0); HEMATOCRIT 33.3 % (36.0-47.0); HEMOGLOBIN 11.3 g/dl (12.0-15.5); LYMPH # 1.9 10^3/uL (1.5-5.0); LYMPH % 24.6 % (24.0-44.0); MEAN CORPUSCULAR HEMOGLOBIN 33.1 pg (27.0-33.0); MEAN CORPUSCULAR HGB CONC 33.9 g/dl (32.0-36.5); MEAN CORPUSCULAR VOLUME 97.7 fl (80.0-96.0); MONO # 0.8 10^3/uL (0.0-0.8); MONO % 10.1 % (2.0-8.0); NEUTROPHILS % 63.6 % (36.0-66.0); PLATELET COUNT, AUTOMATED 200 10^3/uL (150-450); RED BLOOD COUNT 3.41 10^6/uL (4.00-5.40); WHITE BLOOD COUNT 7.9 10^3/uL (4.0-10.0)
[2021-12-13 19:27] LABS: ALBUMIN 3.4 GM/DL (3.2-5.2); BILIRUBIN,TOTAL 0.3 MG/DL (0.2-1.0); CALCIUM LEVEL 9.5 MG/DL (8.8-10.2); CREATININE FOR GFR 1.52 MG/DL (0.55-1.30); GLOMERULAR FILTRATION RATE 36.7 (>45); POTASSIUM SERUM 4.5 MEQ/L (3.5-5.1); TOTAL PROTEIN 6.4 GM/DL (6.4-8.2)
[2021-12-14 17:56] LABS: MAGNESIUM LEVEL 1.9 MG/DL (1.7-2.2)
== END ==
LOC: M LAB REF 17:37
PROVIDERS: ATTEND Internal Medicine
DX: Z94.81 Bone marrow transplant status (principal)

== ENCOUNTER → 2021-12-27 | Outpatient (REF) | payer MEDICARE, OTHER ==
[2021-12-27 11:41] LABS: BASO % 0.4 % (0.0-1.0); EOS # 0.1 10^3/uL (0.0-0.5); HEMATOCRIT 36.2 % (36.0-47.0); HEMOGLOBIN 12.2 g/dl (12.0-15.5); MEAN CORPUSCULAR HEMOGLOBIN 33.2 pg (27.0-33.0); MEAN CORPUSCULAR HGB CONC 33.7 g/dl (32.0-36.5); MEAN CORPUSCULAR VOLUME 98.6 fl (80.0-96.0); MONO # 0.7 10^3/uL (0.0-0.8); MONO % 9.8 % (2.0-8.0); NEUTROPHILS # 4.2 10^3/uL (1.5-8.5); NEUTROPHILS % 59.7 % (36.0-66.0); PLATELET COUNT, AUTOMATED 178 10^3/uL (150-450); RED BLOOD COUNT 3.67 10^6/uL (4.00-5.40)
[2021-12-27 12:37] LABS: ALBUMIN 3.3 GM/DL (3.2-5.2); BILIRUBIN,TOTAL 0.2 MG/DL (0.2-1.0); CALCIUM LEVEL 9.7 MG/DL (8.8-10.2); CREATININE FOR GFR 1.29 MG/DL (0.55-1.30); GLOMERULAR FILTRATION RATE 44.3 (>45); POTASSIUM SERUM 3.6 MEQ/L (3.5-5.1); TOTAL PROTEIN 6.7 GM/DL (6.4-8.2)
== END ==
LOC: M LAB REF 11:27
PROVIDERS: ATTEND Internal Medicine
DX: Z94.81 Bone marrow transplant status (principal)

== ENCOUNTER → 2022-01-10 | Outpatient (REF) | payer MEDICARE, OTHER ==
[2022-01-10 17:31] LABS: HEMATOCRIT 32.8 % (36.0-47.0); MEAN CORPUSCULAR HEMOGLOBIN 33.1 pg (27.0-33.0); MEAN CORPUSCULAR HGB CONC 33.5 g/dl (32.0-36.5); MEAN CORPUSCULAR VOLUME 98.8 fl (80.0-96.0); PLATELET COUNT, AUTOMATED 166 10^3/uL (150-450); RED BLOOD COUNT 3.32 10^6/uL (4.00-5.40); WHITE BLOOD COUNT 9.3 10^3/uL (4.0-10.0)
[2022-01-10 17:46] LABS: ALBUMIN 2.8 GM/DL (3.2-5.2); BILIRUBIN,TOTAL 0.3 MG/DL (0.2-1.0); CALCIUM LEVEL 9.1 MG/DL (8.8-10.2); CREATININE FOR GFR 1.36 MG/DL (0.55-1.30); GLOMERULAR FILTRATION RATE 41.7 (>45); MAGNESIUM LEVEL 2.5 MG/DL (1.8-2.4); POTASSIUM SERUM 4.5 MEQ/L (3.5-5.1); TOTAL PROTEIN 5.3 GM/DL (6.4-8.2)
[2022-01-10 20:50] LABS: ATYPICAL LYMPH 1 % (0-5); LYMPHOCYTES 9 % (16-44); MONOCYTES 11 % (0-5); NEUTROPHILS 79 % (28-66); PLATELET ESTIMATE NORMAL (NORMAL)
== END ==
LOC: M LAB REF 16:24
PROVIDERS: ATTEND Internal Medicine
DX: Z94.81 Bone marrow transplant status (principal)

== ENCOUNTER → 2022-01-13 | Outpatient (REF) | payer MEDICARE, OTHER ==
[2022-01-13 13:39] LABS: CHOLESTEROL RISK RATIO 3.347 (<5)
== END ==
LOC: M LAB REF 12:18
PROVIDERS: ATTEND Physician Assistant
DX: E11.9 Type 2 diabetes mellitus without complications (principal)

== ENCOUNTER → 2022-02-01 | Outpatient (REF) | payer MEDICARE, OTHER ==
[2022-02-01 18:50] LABS: BASO % 0.3 % (0.0-1.0); EOS # 0.1 10^3/uL (0.0-0.5); EOS % 1.6 % (0.0-3.0); HEMATOCRIT 32.8 % (36.0-47.0); HEMOGLOBIN 10.9 g/dl (12.0-15.5); LYMPH # 1.2 10^3/uL (1.5-5.0); LYMPH % 18.9 % (24.0-44.0); MEAN CORPUSCULAR HEMOGLOBIN 33.3 pg (27.0-33.0); MEAN CORPUSCULAR HGB CONC 33.2 g/dl (32.0-36.5); MEAN CORPUSCULAR VOLUME 100.3 fl (80.0-96.0); MONO # 0.8 10^3/uL (0.0-0.8); MONO % 11.8 % (2.0-8.0); NEUTROPHILS # 4.3 10^3/uL (1.5-8.5); NEUTROPHILS % 67.1 % (36.0-66.0); PLATELET COUNT, AUTOMATED 169 10^3/uL (150-450); RED BLOOD COUNT 3.27 10^6/uL (4.00-5.40); WHITE BLOOD COUNT 6.3 10^3/uL (4.0-10.0)
[2022-02-01 19:29] LABS: ALBUMIN 3.2 GM/DL (3.2-5.2); BILIRUBIN,TOTAL 0.3 MG/DL (0.2-1.0); CALCIUM LEVEL 9.5 MG/DL (8.8-10.2); CREATININE FOR GFR 1.26 MG/DL (0.55-1.30); GLOMERULAR FILTRATION RATE 45.5 (>45); MAGNESIUM LEVEL 1.9 MG/DL (1.8-2.4); POTASSIUM SERUM 4.4 MEQ/L (3.5-5.1); TOTAL PROTEIN 5.7 GM/DL (6.4-8.2)
== END ==
LOC: M LAB REF 18:25
PROVIDERS: ATTEND Internal Medicine
DX: Z94.81 Bone marrow transplant status (principal)

== ENCOUNTER → 2022-03-14 | Outpatient (REF) | payer MEDICARE, OTHER ==
[~2022-03-14] MED LIST changes: +CODE118L PO; -VIRT1SOL13 PO
[2022-03-14 12:10] LABS: BASO % 0.6 % (0.0-1.0); EOS # 0.2 10^3/uL (0.0-0.5); EOS % 2.5 % (0.0-3.0); HEMOGLOBIN 10.9 g/dl (12.0-15.5); LYMPH # 1.7 10^3/uL (1.5-5.0); LYMPH % 22.7 % (24.0-44.0); MEAN CORPUSCULAR HEMOGLOBIN 33.5 pg (27.0-33.0); MEAN CORPUSCULAR VOLUME 101.5 fl (80.0-96.0); MONO # 0.7 10^3/uL (0.0-0.8); MONO % 9.8 % (2.0-8.0); NEUTROPHILS # 4.7 10^3/uL (1.5-8.5); PLATELET COUNT, AUTOMATED 174 10^3/uL (150-450); RED BLOOD COUNT 3.25 10^6/uL (4.00-5.40); WHITE BLOOD COUNT 7.3 10^3/uL (4.0-10.0)
[2022-03-14 12:30] LABS: ALBUMIN 3.2 GM/DL (3.2-5.2); BILIRUBIN,TOTAL 0.2 MG/DL (0.2-1.0); CALCIUM LEVEL 9.7 MG/DL (8.8-10.2); CREATININE FOR GFR 1.31 MG/DL (0.55-1.30); GLOMERULAR FILTRATION RATE 43.5 (>45); POTASSIUM SERUM 3.5 MEQ/L (3.5-5.1); TOTAL PROTEIN 5.9 GM/DL (6.4-8.2)
== END ==
LOC: M LAB REF 11:21
PROVIDERS: ATTEND Internal Medicine
DX: Z94.81 Bone marrow transplant status (principal)

== ENCOUNTER → 2022-03-15 | Outpatient (CLI) | payer MEDICARE, OTHER | LOC: M RAD 10:27 | PROVIDERS: ATTEND Internal Medicine | DX: R91.1 Solitary pulmonary nodule (principal) ==

== ENCOUNTER → 2022-03-28 | Outpatient (REF) | payer MEDICARE, OTHER ==
[2022-03-28 12:46] LABS: HEMOGLOBIN A1c 6.4 %
== END ==
LOC: M LAB REF 11:15
PROVIDERS: ATTEND Physician Assistant
DX: E11.9 Type 2 diabetes mellitus without complications (principal)

== ENCOUNTER → 2022-03-28 | Outpatient (REF) | payer MEDICARE, OTHER ==
[~2022-03-28] MED LIST changes: -TRIA37.53 PO; +TRIA37.577 PO
[2022-03-28 11:52] LABS: BASO % 0.3 % (0.0-1.0); EOS # 0.1 10^3/uL (0.0-0.5); EOS % 1.8 % (0.0-3.0); HEMATOCRIT 35.5 % (36.0-47.0); HEMOGLOBIN 11.9 g/dl (12.0-15.5); LYMPH # 1.7 10^3/uL (1.5-5.0); LYMPH % 27.6 % (24.0-44.0); MEAN CORPUSCULAR HGB CONC 33.5 g/dl (32.0-36.5); MEAN CORPUSCULAR VOLUME 101.4 fl (80.0-96.0); MONO # 0.7 10^3/uL (0.0-0.8); MONO % 10.7 % (2.0-8.0); NEUTROPHILS # 3.7 10^3/uL (1.5-8.5); NEUTROPHILS % 59.4 % (36.0-66.0); PLATELET COUNT, AUTOMATED 199 10^3/uL (150-450); WHITE BLOOD COUNT 6.2 10^3/uL (4.0-10.0)
[2022-03-28 12:14] LABS: ALBUMIN 3.5 GM/DL (3.2-5.2); BILIRUBIN,TOTAL 0.4 MG/DL (0.2-1.0); CALCIUM LEVEL 9.7 MG/DL (8.8-10.2); CREATININE FOR GFR 1.33 MG/DL (0.55-1.30); GLOMERULAR FILTRATION RATE 42.6 (>45); MAGNESIUM LEVEL 2.4 MG/DL (1.8-2.4); TOTAL PROTEIN 6.5 GM/DL (6.4-8.2)
== END ==
LOC: M LAB REF 11:19
PROVIDERS: ATTEND Internal Medicine
DX: Z94.81 Bone marrow transplant status (principal)

== ENCOUNTER → 2022-04-11 | Outpatient (REF) | payer MEDICARE, OTHER ==
[2022-04-11 12:54] LABS: BASO % 0.6 % (0.0-1.0); EOS # 0.1 10^3/uL (0.0-0.5); EOS % 2.8 % (0.0-3.0); HEMATOCRIT 33.7 % (36.0-47.0); HEMOGLOBIN 11.4 g/dl (12.0-15.5); LYMPH # 1.6 10^3/uL (1.5-5.0); LYMPH % 30.8 % (24.0-44.0); MEAN CORPUSCULAR HEMOGLOBIN 34.2 pg (27.0-33.0); MEAN CORPUSCULAR HGB CONC 33.8 g/dl (32.0-36.5); MEAN CORPUSCULAR VOLUME 101.2 fl (80.0-96.0); MONO # 0.7 10^3/uL (0.0-0.8); MONO % 13.4 % (2.0-8.0); NEUTROPHILS # 2.6 10^3/uL (1.5-8.5); PLATELET COUNT, AUTOMATED 171 10^3/uL (150-450); RED BLOOD COUNT 3.33 10^6/uL (4.00-5.40); WHITE BLOOD COUNT 5.1 10^3/uL (4.0-10.0)
[2022-04-11 13:23] LABS: ALBUMIN 3.2 GM/DL (3.2-5.2); BILIRUBIN,TOTAL 0.3 MG/DL (0.2-1.0); CALCIUM LEVEL 9.1 MG/DL (8.8-10.2); CREATININE FOR GFR 1.32 MG/DL (0.55-1.30); MAGNESIUM LEVEL 2.1 MG/DL (1.8-2.4); POTASSIUM SERUM 3.7 MEQ/L (3.5-5.1); TOTAL PROTEIN 5.5 GM/DL (6.4-8.2)
== END ==
LOC: M LAB REF 12:24
PROVIDERS: ATTEND Internal Medicine
DX: Z94.81 Bone marrow transplant status (principal)

== ENCOUNTER → 2022-04-25 | Outpatient (REF) | payer MEDICARE, OTHER ==
[2022-04-25 13:54] LABS: BASO % 0.3 % (0.0-1.0); EOS # 0.1 10^3/uL (0.0-0.5); EOS % 1.3 % (0.0-3.0); HEMATOCRIT 33.7 % (36.0-47.0); HEMOGLOBIN 11.4 g/dl (12.0-15.5); LYMPH # 1.1 10^3/uL (1.5-5.0); LYMPH % 16.9 % (24.0-44.0); MEAN CORPUSCULAR HEMOGLOBIN 33.5 pg (27.0-33.0); MEAN CORPUSCULAR HGB CONC 33.8 g/dl (32.0-36.5); MEAN CORPUSCULAR VOLUME 99.1 fl (80.0-96.0); MONO # 0.6 10^3/uL (0.0-0.8); MONO % 9.2 % (2.0-8.0); NEUTROPHILS # 4.5 10^3/uL (1.5-8.5); NEUTROPHILS % 72.1 % (36.0-66.0); PLATELET COUNT, AUTOMATED 184 10^3/uL (150-450); WHITE BLOOD COUNT 6.3 10^3/uL (4.0-10.0)
[2022-04-25 15:37] LABS: ALBUMIN 3.2 GM/DL (3.2-5.2); BILIRUBIN,TOTAL 0.2 MG/DL (0.2-1.0); CALCIUM LEVEL 9.9 MG/DL (8.8-10.2); CREATININE FOR GFR 1.36 MG/DL (0.55-1.30); GLOMERULAR FILTRATION RATE 41.5 (>45); MAGNESIUM LEVEL 2.2 MG/DL (1.8-2.4); TOTAL PROTEIN 5.9 GM/DL (6.4-8.2)
== END ==
LOC: M LAB REF 13:19
PROVIDERS: ATTEND Internal Medicine
DX: Z94.81 Bone marrow transplant status (principal)

== ENCOUNTER 2022-05-10 19:46 | Emergency (ER) | payer MEDICARE, OTHER ==
[~2022-05-10] VITALS: Ht 165.1 cm; Wt 79.1 kg
[2022-05-10 21:07] LABS: BASO % 0.3 % (0.0-1.0); EOS # 0.1 10^3/uL (0.0-0.5); HEMATOCRIT 32.5 % (36.0-47.0); HEMOGLOBIN 11.3 g/dl (12.0-15.5); LYMPH # 1.7 10^3/uL (1.5-5.0); LYMPH % 28.9 % (24.0-44.0); MEAN CORPUSCULAR HEMOGLOBIN 33.8 pg (27.0-33.0); MEAN CORPUSCULAR HGB CONC 34.8 g/dl (32.0-36.5); MEAN CORPUSCULAR VOLUME 97.3 fl (80.0-96.0); MONO # 0.7 10^3/uL (0.0-0.8); MONO % 11.9 % (2.0-8.0); NEUTROPHILS # 3.4 10^3/uL (1.5-8.5); NEUTROPHILS % 56.7 % (36.0-66.0); PLATELET COUNT, AUTOMATED 191 10^3/uL (150-450); RED BLOOD COUNT 3.34 10^6/uL (4.00-5.40)
[2022-05-10 21:30] LABS: ALBUMIN 3.1 GM/DL (3.2-5.2); ALT/SGPT 39 U/L (12-78); BILIRUBIN,DIRECT < 0.1 MG/DL (0.0-0.2); BILIRUBIN,TOTAL 0.2 MG/DL (0.2-1.0); BLOOD UREA NITROGEN 29 MG/DL (7-18); CALCIUM LEVEL 9.5 MG/DL (8.8-10.2); CARBON DIOXIDE LEVEL 27 MEQ/L (21-32); CHLORIDE LEVEL 109 MEQ/L (98-107); CREATININE FOR GFR 1.41 MG/DL (0.55-1.30); GLOMERULAR FILTRATION RATE 39.8 (>45); GLUCOSE, FASTING 163 MG/DL (70-100); LIPASE 82 U/L (73-393); POTASSIUM SERUM 3.7 MEQ/L (3.5-5.1); SODIUM LEVEL 141 MEQ/L (136-145); TOTAL PROTEIN 5.9 GM/DL (6.4-8.2)
[2022-05-10 21:33] LABS: CK-MB VALUE MASS 1.5 NG/ML (<3.6); MB/CK RELATIVE INDEX 1.7 (< OR =4)
[2022-05-10] MEDS: NITROGLYCERIN 0.4 MG SUBL TABLET SL PRN ×3 (21:44→21:55)
[2022-05-10 21:55] VITALS: BP 131/63
[2022-05-11] MEDS ORDERED: LORazepam 1 MG TAB PO STA (00:34)
[2022-05-11] MEDS ORDERED: LORazepam 0.5 MG TAB PO STA (00:34)
[2022-05-11] MEDS ORDERED: SERTRALINE HCL 50 MG TAB PO ONE (00:35)
[2022-05-11] MEDS ORDERED: BENZONATATE 100MG CAPSULE PO ONE (00:35)
[2022-05-11] MEDS ORDERED: BENZ200C70 PO (00:43)
[2022-05-11 01:01] VITALS: BP 142/80
== END 2022-05-11 01:25 | disposition home or self-care (01) ==
LOC: M ED 19:46
DX: R07.89 Other chest pain (principal); R05.9 Cough, unspecified; R11.0 Nausea; B34.8 Other viral infections of unspecified site; E11.9 Type 2 diabetes mellitus without complications; I10 Essential (primary) hypertension; E78.5 Hyperlipidemia, unspecified; M79.7 Fibromyalgia; I48.91 Unspecified atrial fibrillation; Z88.0 Allergy status to penicillin; Z88.1 Allergy status to other antibiotic agents; Z88.8 Allergy status to other drugs, medicaments and biological substances; Z91.041 Radiographic dye allergy status; Z91.048 Other nonmedicinal substance allergy status; Z79.899 Other long term (current) drug therapy; Z79.4 Long term (current) use of insulin; Z79.82 Long term (current) use of aspirin; Z79.01 Long term (current) use of anticoagulants

== ENCOUNTER → 2022-05-15 | Outpatient (REF) | payer MEDICARE, OTHER ==
[2022-05-16 16:12] LABS: ALBUMIN 2.9 GM/DL (3.2-5.2); BILIRUBIN,TOTAL 0.2 MG/DL (0.2-1.0); CALCIUM LEVEL 9.4 MG/DL (8.8-10.2); CREATININE FOR GFR 1.6 MG/DL (0.55-1.30); GLOMERULAR FILTRATION RATE 34.4 (>45); TOTAL PROTEIN 5.9 GM/DL (6.4-8.2)
[2022-05-16 16:13] LABS: BASO % 0.2 % (0.0-1.0); EOS % 1.8 % (0.0-3.0); HEMATOCRIT 30.4 % (36.0-47.0); HEMOGLOBIN 10.4 g/dl (12.0-15.5); LYMPH % 21.1 % (24.0-44.0); MEAN CORPUSCULAR HEMOGLOBIN 34.3 pg (27.0-33.0); MEAN CORPUSCULAR HGB CONC 34.2 g/dl (32.0-36.5); MEAN CORPUSCULAR VOLUME 100.3 fl (80.0-96.0); MONO % 11.3 % (2.0-8.0); NEUTROPHILS % 65.2 % (36.0-66.0); PLATELET COUNT, AUTOMATED 200 10^3/uL (150-450); RED BLOOD COUNT 3.03 10^6/uL (4.00-5.40); WHITE BLOOD COUNT 5.5 10^3/uL (4.0-10.0)
[2022-05-16 16:14] LABS: EOS # 0.1 10^3/uL (0.0-0.5); LYMPH # 1.2 10^3/uL (1.5-5.0); MONO # 0.6 10^3/uL (0.0-0.8); NEUTROPHILS # 3.6 10^3/uL (1.5-8.5)
== END ==
LOC: M LAB REF 13:06
PROVIDERS: ATTEND Internal Medicine
DX: M32.9 Systemic lupus erythematosus, unspecified (principal)

== ENCOUNTER → 2022-06-16 | Outpatient (CLI) | payer MEDICARE, OTHER ==
[~2022-06-16] MED LIST changes: +CREO3600 PO; +DILT1CAP10 PO; +ELIQ5TAB PO; -LABE100T5 PO; +LABE100T71 PO; -LABE300T2 PO; +LABE300T55 PO; +TORS20TA2 PO; +pancrelipase
[2022-06-16 13:31] LABS: BASO % 0.4 % (0.0-1.0); EOS # 0.1 10^3/uL (0.0-0.5); HEMATOCRIT 32.4 % (36.0-47.0); HEMOGLOBIN 10.9 g/dl (12.0-15.5); LYMPH # 1.2 10^3/uL (1.5-5.0); LYMPH % 17.8 % (24.0-44.0); MEAN CORPUSCULAR HEMOGLOBIN 32.8 pg (27.0-33.0); MEAN CORPUSCULAR HGB CONC 33.6 g/dl (32.0-36.5); MEAN CORPUSCULAR VOLUME 97.6 fl (80.0-96.0); MONO # 0.7 10^3/uL (0.0-0.8); MONO % 10.7 % (2.0-8.0); NEUTROPHILS # 4.7 10^3/uL (1.5-8.5); NEUTROPHILS % 68.5 % (36.0-66.0); PLATELET COUNT, AUTOMATED 227 10^3/uL (150-450); RED BLOOD COUNT 3.32 10^6/uL (4.00-5.40); WHITE BLOOD COUNT 6.9 10^3/uL (4.0-10.0)
[2022-06-16 14:42] LABS: ALBUMIN 2.8 GM/DL (3.2-5.2); CALCIUM LEVEL 10.1 MG/DL (8.8-10.2); CREATININE FOR GFR 2.21 MG/DL (0.55-1.30); GLOMERULAR FILTRATION RATE 23.7 (>45); POTASSIUM SERUM 4.1 MEQ/L (3.5-5.1)
== END ==
LOC: M LAB 12:05
PROVIDERS: ATTEND Internal Medicine Nephrology
DX: N18.32 Chronic kidney disease, stage 3b (principal); R60.9 Edema, unspecified; N18.30 Chronic kidney disease, stage 3 unspecified; D63.1 Anemia in chronic kidney disease

== ENCOUNTER 2022-06-17 11:07 | Inpatient (IN) | payer MEDICARE, OTHER ==
[~2022-06-17] VITALS: Ht 162.6 cm; Wt 75.0 kg
[~2022-06-17 11:07] MED LIST changes: -CREO3600 PO; -DILT1CAP10 PO; -ELIQ5TAB PO; -TORS20TA2 PO; -pancrelipase
[2022-06-17 12:52] LABS: RBC, URINE 30-40 /hpf (0-3); WBC, URINE 0-1 /hpf (0-3)
[2022-06-17 12:53] LABS: BACTERIA, URINE SMALL AMOUNT; HYALINE CAST, URINE NONE SEEN /lpf (0-1); MUCUS, URINE SMALL AMOUNT (NEGATIVE); SQUAMOUS EPITHELIAL CELL URINE SMALL AMOUNT /hpf (SMALL AMT)
[2022-06-17 13:50] LABS: BASO % 0.4 % (0.0-1.0); EOS # 0.3 10^3/uL (0.0-0.5); EOS % 2.7 % (0.0-3.0); HEMATOCRIT 34.3 % (36.0-47.0); HEMOGLOBIN 11.5 g/dl (12.0-15.5); LYMPH # 1.7 10^3/uL (1.5-5.0); LYMPH % 18.2 % (24.0-44.0); MEAN CORPUSCULAR HEMOGLOBIN 33.4 pg (27.0-33.0); MEAN CORPUSCULAR HGB CONC 33.5 g/dl (32.0-36.5); MEAN CORPUSCULAR VOLUME 99.7 fl (80.0-96.0); MONO # 0.9 10^3/uL (0.0-0.8); MONO % 9.6 % (2.0-8.0); NEUTROPHILS # 6.4 10^3/uL (1.5-8.5); NEUTROPHILS % 68.7 % (36.0-66.0); PLATELET COUNT, AUTOMATED 257 10^3/uL (150-450); RED BLOOD COUNT 3.44 10^6/uL (4.00-5.40); WHITE BLOOD COUNT 9.3 10^3/uL (4.0-10.0)
[2022-06-17 14:13] LABS: INR 1.26; PROTHROMBIN TIME 16.2 SECONDS (12.7-14.5)
[2022-06-17 14:14] LABS: PARTIAL THROMBOPLASTIN TIME 38.1 SECONDS (25.9-37.0)
[2022-06-17 14:37] LABS: ALBUMIN 2.9 GM/DL (3.2-5.2); ALT/SGPT 53 U/L (12-78); BILIRUBIN,DIRECT < 0.1 MG/DL (0.0-0.2); BILIRUBIN,TOTAL 0.2 MG/DL (0.2-1.0); BLOOD UREA NITROGEN 46 MG/DL (7-18); CALCIUM LEVEL 10.4 MG/DL (8.8-10.2); CARBON DIOXIDE LEVEL 33 MEQ/L (21-32); CHLORIDE LEVEL 102 MEQ/L (98-107); CREATININE FOR GFR 1.84 MG/DL (0.55-1.30); GLOMERULAR FILTRATION RATE 29.3 (>45); GLUCOSE, FASTING 109 MG/DL (70-100); POTASSIUM SERUM 4.4 MEQ/L (3.5-5.1); SODIUM LEVEL 140 MEQ/L (136-145); TOTAL PROTEIN 6.5 GM/DL (6.4-8.2)
[2022-06-17] MEDS ORDERED: TORS20TA2 PO (15:11)
[2022-06-17] MEDS ORDERED: pancrelipase (15:11)
[2022-06-17] MEDS ORDERED: CREO3600 PO (15:11)
[2022-06-17] MEDS ORDERED: TACR1CAP3 PO (15:11)
[2022-06-17] MEDS ORDERED: ELIQ5TAB PO ×2 (15:11→20:51)
[2022-06-17] MEDS ORDERED: NS 500 ML IV ONE (16:15)
[2022-06-17] MEDS ORDERED: MORPHINE 2 MG/ML 1ML VIAL IV ONE (17:25)
[2022-06-17] MEDS ORDERED: cefTRIAXone SOD 1 GM in D5W MINI-BAG PLUS 50 ML IV ONE (18:05)
[2022-06-17] MEDS ORDERED: PROMETHAZINE 25MG/ML 1ML VIAL IV ONE (18:10)
[2022-06-17] MEDS ORDERED: ALLO100T PO (20:51)
[2022-06-17] MEDS ORDERED: BENZ200C70 PO (20:51)
[2022-06-17] MEDS ORDERED: DILT1CAP10 PO (20:51)
[2022-06-17] MEDS ORDERED: TACR0.5C3 PO (20:51)
[2022-06-17] MEDS ORDERED: HOME MED LIST COMPLETE! XX SCH (20:55)
[2022-06-18] MEDS ORDERED: LACTULOSE 20 GM/30 ML SYRUP UD PO PRN (00:50)
[2022-06-18 01:40] VITALS: BP 167/72
[2022-06-18] MEDS ORDERED: GLUCAGON INJ 1MG VIAL SC PRN (01:50)
[2022-06-18] MEDS ORDERED: GLUCOSE 4GM CHEW TABLET PO PRN (01:50)
[2022-06-18] MEDS ORDERED: DEXTROSE 50% 50 ML SYRINGE IV PRN (01:50)
[2022-06-18] MEDS ORDERED: MORPHINE 2 MG/ML 1ML VIAL IV ONE (02:05)
[2022-06-18] MEDS: LORazepam 0.5 MG TAB PO SCH ×2 (02:42→21:56)
[2022-06-18] MEDS: FLUCONAZOLE 100 MG TAB PO SCH ×2 (02:43→21:55)
[2022-06-18] MEDS: GABAPENTIN 300 MG CAP PO SCH ×2 (02:43→21:55)
[2022-06-18] MEDS: oxyBUTYnin *DITROPAN XL* 5 MG TABCR PO SCH ×2 (02:44→21:56)
[2022-06-18] MEDS: SERTRALINE HCL 50 MG TAB PO SCH ×2 (02:44→21:55)
[2022-06-18] MEDS: DOCUSATE SODIUM 100MG CAPSULE PO SCH ×3 (02:44→21:55)
[2022-06-18] MEDS: LEVEMIR (INSULIN DETEMIR) 1 UNITS/0.01ML SC SCH ×2 (03:03→21:55)
[2022-06-18] MEDS: INSULIN LISPRO (NovoLOG) PER UNIT SC SCH ×4 (03:04→18:17)
[2022-06-18] MEDS: NS 1,000 ML IV SCH ×2 (03:13→23:45)
[2022-06-18] MEDS: BUDESONIDE EC 3 MG CAP (ENTOCORT EC) PO SCH ×3 (03:23→21:55)
[2022-06-18] MEDS: FLECAINIDE 50MG TABLET PO SCH ×3 (03:23→21:55)
[2022-06-18] MEDS: ACYCLOVIR 200 MG CAPSULE PO SCH ×3 (03:23→21:55)
[2022-06-18 05:28] VITALS: BP 160/67
[2022-06-18] MEDS ORDERED: TORSEMIDE 20 MG TAB PO SCH (09:00)
[2022-06-18] MEDS ORDERED: LOSARTAN 50MG TABLET PO SCH (09:00)
[2022-06-18 09:12] VITALS: BP 128/72
[2022-06-18] MEDS: CREON-12 CAPSULE PO SCH ×3 (09:12→18:17)
[2022-06-18] MEDS: ASPIRIN 81MG ENTERIC TABLET PO SCH (09:12)
[2022-06-18] MEDS: FOLIC ACID 1MG TAB PO SCH (09:12)
[2022-06-18] MEDS: allopurinoL 100 MG TAB PO SCH (09:12)
[2022-06-18] MEDS: HYDROXYCHLOROQUINE 200 MG TAB PO SCH (09:13)
[2022-06-18] MEDS: TACROLIMUS 0.5 MG CAP PO SCH ×2 (09:14→21:55)
[2022-06-18] MEDS: TACROLIMUS 1 MG CAP (J7507) PO SCH (09:18)
[2022-06-18 09:24] LABS: CALCIUM LEVEL 9.8 MG/DL (8.8-10.2); CREATININE FOR GFR 1.58 MG/DL (0.55-1.30); GLOMERULAR FILTRATION RATE 34.9 (>45); POTASSIUM SERUM 3.9 MEQ/L (3.5-5.1)
[2022-06-18] MEDS: ACETAMINOPHEN 650MG ER TAB (TYLENOL ARTHRITIS) PO PRN ×2 (13:56→23:14)
[2022-06-18 14:00] VITALS: BP 156/65
[2022-06-18] MEDS: cefTRIAXone SOD 1 GM in D5W MINI-BAG PLUS 50 ML IV SCH (18:16)
[2022-06-18 20:00] VITALS: BP 145/66
[2022-06-19] MEDS: INSULIN LISPRO (NovoLOG) PER UNIT SC SCH ×4 (01:24→17:30)
[2022-06-19] MEDS: ACETAMINOPHEN 650MG ER TAB (TYLENOL ARTHRITIS) PO PRN ×2 (04:55→21:48)
[2022-06-19 06:00] VITALS: BP 144/75
[2022-06-19 07:05] LABS: BASO % 0.7 % (0.0-1.0); EOS # 0.2 10^3/uL (0.0-0.5); EOS % 2.7 % (0.0-3.0); HEMOGLOBIN 10.2 g/dl (12.0-15.5); LYMPH # 0.9 10^3/uL (1.5-5.0); LYMPH % 15.3 % (24.0-44.0); MEAN CORPUSCULAR HGB CONC 32.9 g/dl (32.0-36.5); MEAN CORPUSCULAR VOLUME 100.3 fl (80.0-96.0); MONO # 0.6 10^3/uL (0.0-0.8); MONO % 10.5 % (2.0-8.0); NEUTROPHILS # 3.9 10^3/uL (1.5-8.5); NEUTROPHILS % 70.3 % (36.0-66.0); PLATELET COUNT, AUTOMATED 236 10^3/uL (150-450); RED BLOOD COUNT 3.09 10^6/uL (4.00-5.40); WHITE BLOOD COUNT 5.6 10^3/uL (4.0-10.0)
[2022-06-19 07:39] LABS: CALCIUM LEVEL 9.1 MG/DL (8.8-10.2); CREATININE FOR GFR 1.44 MG/DL (0.55-1.30); GLOMERULAR FILTRATION RATE 38.9 (>45); MAGNESIUM LEVEL 1.5 MG/DL (1.8-2.4); POTASSIUM SERUM 4.3 MEQ/L (3.5-5.1)
[2022-06-19] MEDS: MAG SULF 1GM/100ML (MAG RUN) 1 GM in IV 1 EA IV SCH ×2 (08:25→09:58)
[2022-06-19] MEDS: TACROLIMUS 1 MG CAP (J7507) PO SCH (08:26)
[2022-06-19] MEDS: FLECAINIDE 50MG TABLET PO SCH ×2 (08:26→21:48)
[2022-06-19] MEDS: DOCUSATE SODIUM 100MG CAPSULE PO SCH ×2 (08:26→21:47)
[2022-06-19] MEDS: FOLIC ACID 1MG TAB PO SCH (08:26)
[2022-06-19] MEDS: ACYCLOVIR 200 MG CAPSULE PO SCH ×2 (08:26→21:48)
[2022-06-19] MEDS: CREON-12 CAPSULE PO SCH ×3 (08:26→17:39)
[2022-06-19] MEDS: ASPIRIN 81MG ENTERIC TABLET PO SCH (08:26)
[2022-06-19] MEDS: allopurinoL 100 MG TAB PO SCH (08:26)
[2022-06-19] MEDS: HYDROXYCHLOROQUINE 200 MG TAB PO SCH (08:26)
[2022-06-19] MEDS: BUDESONIDE EC 3 MG CAP (ENTOCORT EC) PO SCH ×2 (08:26→21:48)
[2022-06-19 14:00] VITALS: BP 140/82
[2022-06-19] MEDS: rOPINIRole 0.25 MG TAB(REQUIP) PO SCH ×2 (17:39→21:48)
[2022-06-19] MEDS: cefTRIAXone SOD 1 GM in D5W MINI-BAG PLUS 50 ML IV SCH (17:39)
[2022-06-19] MEDS ORDERED: INSULIN LISPRO (NovoLOG) PER UNIT SC SCH (21:00)
[2022-06-19] MEDS: LORazepam 0.5 MG TAB PO SCH (21:47)
[2022-06-19] MEDS: oxyBUTYnin *DITROPAN XL* 5 MG TABCR PO SCH (21:48)
[2022-06-19] MEDS: LEVEMIR (INSULIN DETEMIR) 1 UNITS/0.01ML SC SCH (21:48)
[2022-06-19] MEDS: GABAPENTIN 300 MG CAP PO SCH (21:48)
[2022-06-19] MEDS: SERTRALINE HCL 50 MG TAB PO SCH (21:48)
[2022-06-19] MEDS: TACROLIMUS 0.5 MG CAP PO SCH (21:48)
[2022-06-19] MEDS: FLUCONAZOLE 100 MG TAB PO SCH (21:48)
[2022-06-19 22:00] VITALS: BP 165/70
[2022-06-20 06:00] VITALS: BP 160/77
[2022-06-20 06:09] LABS: BASO % 0.7 % (0.0-1.0); EOS # 0.2 10^3/uL (0.0-0.5); EOS % 3.9 % (0.0-3.0); HEMATOCRIT 29.7 % (36.0-47.0); HEMOGLOBIN 9.9 g/dl (12.0-15.5); LYMPH # 1.3 10^3/uL (1.5-5.0); MEAN CORPUSCULAR HEMOGLOBIN 33.4 pg (27.0-33.0); MEAN CORPUSCULAR HGB CONC 33.3 g/dl (32.0-36.5); MEAN CORPUSCULAR VOLUME 100.3 fl (80.0-96.0); MONO # 0.4 10^3/uL (0.0-0.8); MONO % 6.7 % (2.0-8.0); NEUTROPHILS % 67.4 % (36.0-66.0); PLATELET COUNT, AUTOMATED 247 10^3/uL (150-450); RED BLOOD COUNT 2.96 10^6/uL (4.00-5.40)
[2022-06-20 06:48] LABS: CALCIUM LEVEL 8.9 MG/DL (8.8-10.2); CREATININE FOR GFR 1.53 MG/DL (0.55-1.30); GLOMERULAR FILTRATION RATE 36.3 (>45); MAGNESIUM LEVEL 1.9 MG/DL (1.8-2.4); POTASSIUM SERUM 4.3 MEQ/L (3.5-5.1)
[2022-06-20] MEDS ORDERED: ROPI0.253 PO (08:29)
[2022-06-20] MEDS ORDERED: BACTRIM 160MG/800MG DS TAB PO SCH (09:00)
[2022-06-20] MEDS: CREON-12 CAPSULE PO SCH (09:03)
[2022-06-20] MEDS: ASPIRIN 81MG ENTERIC TABLET PO SCH (09:04)
[2022-06-20] MEDS: rOPINIRole 0.25 MG TAB(REQUIP) PO SCH (09:04)
[2022-06-20] MEDS: FLECAINIDE 50MG TABLET PO SCH (09:04)
[2022-06-20] MEDS: TACROLIMUS 1 MG CAP (J7507) PO SCH (09:04)
[2022-06-20] MEDS: HYDROXYCHLOROQUINE 200 MG TAB PO SCH (09:04)
[2022-06-20] MEDS: DOCUSATE SODIUM 100MG CAPSULE PO SCH (09:04)
[2022-06-20] MEDS: ACYCLOVIR 200 MG CAPSULE PO SCH (09:04)
[2022-06-20] MEDS: BUDESONIDE EC 3 MG CAP (ENTOCORT EC) PO SCH (09:04)
[2022-06-20] MEDS: allopurinoL 100 MG TAB PO SCH (09:04)
[2022-06-20] MEDS: FOLIC ACID 1MG TAB PO SCH (09:04)
[2022-06-20] MEDS: INSULIN LISPRO (NovoLOG) PER UNIT SC SCH (09:05)
== END 2022-06-20 11:38 | disposition home or self-care (01) | DRG 690 ==
LOC: M ED 11:07 → M ED INP 21:54 → ENRESERV 06-18 01:03 → M MSPAV 06-18 01:40
PROVIDERS: ADMIT Internal Medicine; ATTEND Internal Medicine
DX: N10 Acute pyelonephritis (principal); D47.1 Chronic myeloproliferative disease; Z94.84 Stem cells transplant status; N13.8 Other obstructive and reflux uropathy; D89.813 Graft-versus-host disease, unspecified; I48.0 Paroxysmal atrial fibrillation; Z79.01 Long term (current) use of anticoagulants; E11.22 Type 2 diabetes mellitus with diabetic chronic kidney disease; N18.4 Chronic kidney disease, stage 4 (severe); F32.A Depression, unspecified; F41.9 Anxiety disorder, unspecified; M32.9 Systemic lupus erythematosus, unspecified; G47.33 Obstructive sleep apnea (adult) (pediatric); N17.9 Acute kidney failure, unspecified; I12.9 Hypertensive chronic kidney disease with stage 1 through stage 4 chronic kidney disease, or unspecified chronic kidney disease; M10.9 Gout, unspecified; Z20.822 Contact with and (suspected) exposure to COVID-19; Z79.82 Long term (current) use of aspirin; Z79.891 Long term (current) use of opiate analgesic; Z79.4 Long term (current) use of insulin; Z79.899 Other long term (current) drug therapy; Z88.0 Allergy status to penicillin; Z88.8 Allergy status to other drugs, medicaments and biological substances; Z91.040 Latex allergy status; Z91.048 Other nonmedicinal substance allergy status; Z91.018 Allergy to other foods; K21.9 Gastro-esophageal reflux disease without esophagitis; G25.81 Restless legs syndrome; Z86.73 Personal history of transient ischemic attack (TIA), and cerebral infarction without residual deficits; R91.1 Solitary pulmonary nodule; M79.7 Fibromyalgia; N13.30 Unspecified hydronephrosis

== ENCOUNTER 2022-08-31 12:12 | Emergency (ER) | payer MEDICARE, OTHER ==
[~2022-08-31] VITALS: Ht 165.1 cm; Wt 78.5 kg
[~2022-08-31 12:12] MED LIST changes: +CREO3600 PO; +DILT1CAP10 PO; +ELIQ5TAB PO; +ROPI0.253 PO; +TORS20TA2 PO; +pancrelipase
[2022-08-31 12:13] VITALS: BP 157/79
[2022-08-31] MEDS ORDERED: traMADol 50 MG TAB PO ONE (17:50)
== END 2022-08-31 19:21 | disposition home or self-care (01) ==
LOC: M ED 12:12
DX: S93.401A Sprain of unspecified ligament of right ankle, initial encounter (principal); S70.01XA Contusion of right hip, initial encounter; S16.1XXA Strain of muscle, fascia and tendon at neck level, initial encounter; W10.9XXA Fall (on) (from) unspecified stairs and steps, initial encounter; Y92.099 Unspecified place in other non-institutional residence as the place of occurrence of the external cause; D75.81 Myelofibrosis; E11.9 Type 2 diabetes mellitus without complications; E03.9 Hypothyroidism, unspecified; F41.9 Anxiety disorder, unspecified; F32.9 Major depressive disorder, single episode, unspecified; Z94.81 Bone marrow transplant status; Z79.4 Long term (current) use of insulin; Z79.82 Long term (current) use of aspirin; Z79.899 Other long term (current) drug therapy; Z91.041 Radiographic dye allergy status; Z88.8 Allergy status to other drugs, medicaments and biological substances

== ENCOUNTER → 2022-09-06 | Outpatient (CLI) | payer MEDICARE, OTHER | LOC: M PLAIMG 10:04 | PROVIDERS: ATTEND Physician Assistant Surgical | DX: M77.31 Calcaneal spur, right foot (principal); M19.071 Primary osteoarthritis, right ankle and foot ==

== ENCOUNTER → 2022-09-20 | Outpatient (CLI) | payer MEDICARE, OTHER | LOC: M LAB 08:57 | PROVIDERS: ATTEND Internal Medicine | DX: E27.40 Unspecified adrenocortical insufficiency (principal) ==

== ENCOUNTER 2022-10-06 13:30 | Outpatient (CLI) | payer MEDICARE, OTHER ==
[~2022-10-06] VITALS: Ht 165.1 cm; Wt 78.5 kg
[~2022-10-06 13:30] MED LIST changes: -PRAM0.5T4
[2022-10-06] MEDS ORDERED: SODIUM CHLORIDE 0.9% INJ 10 ML SYR IV PRN (13:35)
[2022-10-06 14:26] VITALS: BP 156/74
[2022-10-06 14:36] LABS: HEMATOCRIT 31.5 % (36.0-47.0); HEMOGLOBIN 10.6 g/dl (12.0-15.5); MEAN CORPUSCULAR HEMOGLOBIN 33.9 pg (27.0-33.0); MEAN CORPUSCULAR HGB CONC 33.7 g/dl (32.0-36.5); MEAN CORPUSCULAR VOLUME 100.6 fl (80.0-96.0); PLATELET COUNT, AUTOMATED 186 10^3/uL (150-450); RED BLOOD COUNT 3.13 10^6/uL (4.00-5.40); WHITE BLOOD COUNT 6.8 10^3/uL (4.0-10.0)
[2022-10-06 15:06] LABS: MAGNESIUM LEVEL 1.7 MG/DL (1.8-2.4)
[2022-10-06 15:10] LABS: ALBUMIN 3.2 G/DL (3.2-5.2); BILIRUBIN,TOTAL 0.2 MG/DL (0.3-1.2); CALCIUM LEVEL 9.5 MG/DL (8.3-10.6); CREATININE FOR GFR 1.45 MG/DL (0.55-1.30); GLOMERULAR FILTRATION RATE 38.6 (>45); POTASSIUM SERUM 3.6 MMOL/L (3.5-5.1); TOTAL PROTEIN 5.7 G/DL (5.7-8.2)
[2022-10-07] MEDS ORDERED: SODIUM CHLORIDE 0.9% INJ 10 ML SYR IV SCH (09:00)
[2022-10-07] MEDS ORDERED: GABA-282 PO (13:57)
[2022-10-07] MEDS ORDERED: TRAM50TA2 PO (13:57)
== END 2022-10-06 14:15 | disposition home or self-care (01) ==
LOC: M INFU 13:30
PROVIDERS: ATTEND Internal Medicine
DX: Z94.81 Bone marrow transplant status (principal); Z88.0 Allergy status to penicillin; Z88.8 Allergy status to other drugs, medicaments and biological substances

== ENCOUNTER → 2022-10-06 | Outpatient (CLI) | payer MEDICARE, OTHER ==
[~2022-10-06] MED LIST changes: +PRAM0.5T4
== END ==
LOC: M WHC 10:43
PROVIDERS: ATTEND Internal Medicine
DX: M85.851 Other specified disorders of bone density and structure, right thigh (principal); M85.852 Other specified disorders of bone density and structure, left thigh

== ENCOUNTER 2022-10-07 07:21 | Emergency (ER) | payer MEDICARE, OTHER ==
[~2022-10-07] VITALS: Ht 165.1 cm; Wt 74.7 kg
[2022-10-07] MEDS ORDERED: traMADol 50 MG TAB PO ONE (11:35)
[2022-10-07] MEDS ORDERED: LIDOCAINE 5% (LIDODERM) PATCH TD ONE (11:35)
[2022-10-07] MEDS ORDERED: ACETAMINOPHEN TAB 650MG DOSE (2X325MG) PO ONE (11:35)
[2022-10-07] MEDS ORDERED: GABA-282 PO (13:57)
[2022-10-07] MEDS ORDERED: TRAM50TA2 PO (13:57)
[2022-10-07 14:17] VITALS: BP 145/68
== END 2022-10-07 14:19 | disposition home or self-care (01) ==
LOC: M ED 07:21
DX: S76.011A Strain of muscle, fascia and tendon of right hip, initial encounter (principal); W19.XXXA Unspecified fall, initial encounter; M54.31 Sciatica, right side; R26.9 Unspecified abnormalities of gait and mobility; M89.8X9 Other specified disorders of bone, unspecified site; K59.00 Constipation, unspecified; Z86.73 Personal history of transient ischemic attack (TIA), and cerebral infarction without residual deficits; E78.00 Pure hypercholesterolemia, unspecified; I10 Essential (primary) hypertension; Z86.718 Personal history of other venous thrombosis and embolism; Z87.01 Personal history of pneumonia (recurrent); G47.30 Sleep apnea, unspecified; R91.1 Solitary pulmonary nodule; M81.8 Other osteoporosis without current pathological fracture; E11.9 Type 2 diabetes mellitus without complications; E03.9 Hypothyroidism, unspecified; F32.9 Major depressive disorder, single episode, unspecified; F41.9 Anxiety disorder, unspecified; Z79.4 Long term (current) use of insulin; Z94.81 Bone marrow transplant status; Z87.42 Personal history of other diseases of the female genital tract; Z87.442 Personal history of urinary calculi; Z87.440 Personal history of urinary (tract) infections; Z79.899 Other long term (current) drug therapy; Z91.041 Radiographic dye allergy status; Z88.0 Allergy status to penicillin; Z88.8 Allergy status to other drugs, medicaments and biological substances; Z91.89 Other specified personal risk factors, not elsewhere classified; Z91.018 Allergy to other foods

== ENCOUNTER 2022-10-09 09:45 | Emergency (ER) | payer MEDICARE, OTHER ==
[~2022-10-09] VITALS: Ht 165.1 cm; Wt 73.0 kg
[2022-10-09] MEDS ORDERED: PRAM0.5T4 (10:03)
[2022-10-09] MEDS ORDERED: MORPHINE 2 MG/ML 1ML VIAL IV PRN (10:35)
[2022-10-09] MEDS ORDERED: ONDANSETRON 4MG 2ML VIAL IV ONE (10:35)
[2022-10-09] MEDS ORDERED: NS 1,000 ML IV SCH (10:35)
[2022-10-09 11:20] LABS: BASO % 0.4 % (0.0-1.0); EOS # 0.1 10^3/uL (0.0-0.5); EOS % 1.2 % (0.0-3.0); HEMATOCRIT 32.5 % (36.0-47.0); LYMPH # 1.5 10^3/uL (1.5-5.0); LYMPH % 17.7 % (24.0-44.0); MEAN CORPUSCULAR HEMOGLOBIN 33.3 pg (27.0-33.0); MEAN CORPUSCULAR HGB CONC 33.8 g/dl (32.0-36.5); MEAN CORPUSCULAR VOLUME 98.5 fl (80.0-96.0); MONO # 0.9 10^3/uL (0.0-0.8); MONO % 10.3 % (2.0-8.0); NEUTROPHILS # 5.8 10^3/uL (1.5-8.5); NEUTROPHILS % 70.2 % (36.0-66.0); PLATELET COUNT, AUTOMATED 183 10^3/uL (150-450); WHITE BLOOD COUNT 8.3 10^3/uL (4.0-10.0)
[2022-10-09 11:54] LABS: LIPASE 27 U/L (12-53)
[2022-10-09 11:56] LABS: BILIRUBIN,DIRECT < 0.1 MG/DL (<0.4)
[2022-10-09 11:57] LABS: ALBUMIN 3.7 G/DL (3.2-5.2); ALKALINE PHOSPHATASE 127 U/L (46-116); ALT/SGPT 45 U/L (7.0-40); AST/SGOT 28 U/L (<34); BILIRUBIN,TOTAL 0.3 MG/DL (0.3-1.2); BLOOD UREA NITROGEN 47 MG/DL (9-23); CALCIUM LEVEL 10.5 MG/DL (8.3-10.6); CARBON DIOXIDE LEVEL 28 MMOL/L (20-31); CHLORIDE LEVEL 102 MMOL/L (98-107); GLOMERULAR FILTRATION RATE 37.1 (>45); GLUCOSE, FASTING 95 MG/DL (74-106); POTASSIUM SERUM 3.2 MMOL/L (3.5-5.1); SODIUM LEVEL 139 MMOL/L (136-145); TOTAL PROTEIN 6.5 G/DL (5.7-8.2)
[2022-10-09] MEDS ORDERED: POTASSIUM CHLORIDE 10MEQ SR TABLET PO ONE (12:10)
[2022-10-09] MEDS ORDERED: PROMETHAZINE 25MG/ML 1ML VIAL IV ONE (12:15)
[2022-10-09 15:30] VITALS: BP 172/85
== END 2022-10-09 15:49 | disposition home or self-care (01) ==
LOC: M ED 09:45
DX: R10.31 Right lower quadrant pain (principal); R14.0 Abdominal distension (gaseous); K59.00 Constipation, unspecified; N20.0 Calculus of kidney; I70.0 Atherosclerosis of aorta; I48.91 Unspecified atrial fibrillation; I10 Essential (primary) hypertension; E78.5 Hyperlipidemia, unspecified; M32.9 Systemic lupus erythematosus, unspecified; G47.33 Obstructive sleep apnea (adult) (pediatric); M79.7 Fibromyalgia; M19.90 Unspecified osteoarthritis, unspecified site; Z82.49 Family history of ischemic heart disease and other diseases of the circulatory system; Z80.9 Family history of malignant neoplasm, unspecified; Z79.4 Long term (current) use of insulin; Z79.899 Other long term (current) drug therapy; Z88.0 Allergy status to penicillin; Z88.8 Allergy status to other drugs, medicaments and biological substances; Z91.041 Radiographic dye allergy status; Z91.89 Other specified personal risk factors, not elsewhere classified
CPT/HCPCS: 74176; 80048; 80076; 81000; 81015; 83690; 85025; 96374; 96375; 99284; J2270; J2550

== ENCOUNTER → 2022-10-17 | Outpatient (CLI) | payer MEDICARE, OTHER ==
[~2022-10-17] MED LIST changes: +PRAM0.5T4
== END ==
LOC: M RAD 09:55
PROVIDERS: ATTEND Internal Medicine
DX: R91.1 Solitary pulmonary nodule (principal)

== ENCOUNTER → 2022-11-11 | Outpatient (CLI) | payer MEDICARE, OTHER ==
[2022-11-11 10:44] LABS: BASO % 0.5 % (0.0-1.0); EOS # 0.1 10^3/uL (0.0-0.5); EOS % 1.2 % (0.0-3.0); HEMATOCRIT 34.9 % (36.0-47.0); HEMOGLOBIN 11.7 g/dl (12.0-15.5); LYMPH # 1.5 10^3/uL (1.5-5.0); LYMPH % 22.9 % (24.0-44.0); MEAN CORPUSCULAR HEMOGLOBIN 33.4 pg (27.0-33.0); MEAN CORPUSCULAR HGB CONC 33.5 g/dl (32.0-36.5); MEAN CORPUSCULAR VOLUME 99.7 fl (80.0-96.0); MONO # 0.8 10^3/uL (0.0-0.8); MONO % 12.9 % (2.0-8.0); NEUTROPHILS % 62.3 % (36.0-66.0); PLATELET COUNT, AUTOMATED 196 10^3/uL (150-450); WHITE BLOOD COUNT 6.5 10^3/uL (4.0-10.0)
[2022-11-11 11:13] LABS: MAGNESIUM LEVEL 2.1 MG/DL (1.8-2.4)
[2022-11-11 11:15] LABS: ALBUMIN 3.5 G/DL (3.2-5.2); BILIRUBIN,TOTAL 0.3 MG/DL (0.3-1.2); CALCIUM LEVEL 10.4 MG/DL (8.3-10.6); CREATININE FOR GFR 1.47 MG/DL (0.55-1.30); POTASSIUM SERUM 3.4 MMOL/L (3.5-5.1); TOTAL PROTEIN 6.2 G/DL (5.7-8.2)
== END ==
LOC: M LAB 10:01
PROVIDERS: ATTEND Internal Medicine
DX: Z94.81 Bone marrow transplant status (principal)

== ENCOUNTER 2022-11-13 19:29 | Emergency (ER) | payer MEDICARE, OTHER ==
[2022-11-13] MEDS ORDERED: ACETAMINOPHEN TAB 650MG DOSE (2X325MG) PO ONE (23:10)
[2022-11-14 05:28] VITALS: BP 176/90
== END 2022-11-14 08:05 | disposition left against medical advice (07) ==
LOC: M ED 19:29
DX: Z53.21 Procedure and treatment not carried out due to patient leaving prior to being seen by health care provider (principal)

== ENCOUNTER → 2023-01-18 | Outpatient (REF) ==
[~2023-01-18] MED LIST changes: -BENZ-52 PO; +BENZ1TAB5 PO; +LIDO15SO4 PO; -LIDO2SOL17 PO; -OXYC-403 PO; +OXYC-673 PO
== END ==
LOC: M LAB LCGH 09:49
PROVIDERS: ATTEND Internal Medicine
DX: Z79.899 Other long term (current) drug therapy (principal)

== ENCOUNTER 2023-06-21 19:25 | Inpatient (IN) | payer MEDICARE, OTHER ==
[~2023-06-21] VITALS: Ht 162.6 cm; Wt 67.9 kg
[~2023-06-21 19:25] MED LIST changes: -DILT1CAP10 PO; +DILT360C8 PO; -HYDR200T3 PO; +HYDR200T46 PO; -K-TA10TA2 PO; +LIDO15SO PO; +LIDO15SO2 SSP; -LIDO15SO4 PO; -LIDO2SO SSP; +LORA1TAB23 PO; -LORA1TAB4 PO; -LOSA100T45; -LOSA100T45 PO; +LOSA100T46; +LOSA100T46 PO; +POTA-165 PO; -ROPI0.253 PO; +ROPI5TAB19 PO; +SENN-186 PO; -SENN-80 PO; +SODIUM CHLORIDE 0.9% INJ 10 ML SYR IV SCH
[2023-06-21 21:24] LABS: BASO # 0.1 10^3/uL (0.0-0.2); BASO % 0.7 % (0.0-1.0); EOS # 3.6 10^3/uL (0.0-0.5); HEMATOCRIT 25.1 % (36.0-47.0); LYMPH # 1.5 10^3/uL (1.5-5.0); MEAN CORPUSCULAR HEMOGLOBIN 28.8 pg (27.0-33.0); MEAN CORPUSCULAR HGB CONC 31.9 g/dl (32.0-36.5); MEAN CORPUSCULAR VOLUME 90.3 fl (80.0-96.0); MONO # 0.9 10^3/uL (0.0-0.8); MONO % 10.4 % (2.0-8.0); NEUTROPHILS # 2.2 10^3/uL (1.5-8.5); NEUTROPHILS % 27.1 % (36.0-66.0); PLATELET COUNT, AUTOMATED 228 10^3/uL (150-450); RED BLOOD COUNT 2.78 10^6/uL (4.00-5.40); WHITE BLOOD COUNT 8.2 10^3/uL (4.0-10.0)
[2023-06-21 21:54] LABS: EOS % 43.6 % (0.0-3.0)
[2023-06-21 21:56] LABS: ALBUMIN 2.5 G/DL (3.2-5.2); ALKALINE PHOSPHATASE 110 U/L (46-116); ALT/SGPT < 9 U/L (7.0-40); AST/SGOT 11 U/L (<34); BILIRUBIN,DIRECT < 0.1 MG/DL (<0.4); BILIRUBIN,TOTAL < 0.2 MG/DL (0.3-1.2); BLOOD UREA NITROGEN 45 MG/DL (9-23); CALCIUM LEVEL 8.9 MG/DL (8.3-10.6); CARBON DIOXIDE LEVEL 21 MMOL/L (20-31); CHLORIDE LEVEL 106 MMOL/L (98-107); CREATININE FOR GFR 2.18 MG/DL (0.55-1.30); GLUCOSE, FASTING 123 MG/DL (74-106); POTASSIUM SERUM 4.4 MMOL/L (3.5-5.1); SODIUM LEVEL 139 MMOL/L (136-145); TOTAL PROTEIN 5.6 G/DL (5.7-8.2)
[2023-06-21 21:58] LABS: THYROXINE (T4) 4.2 UG/DL (4.5-10.9)
[2023-06-21 22:05] LABS: RSV AMPLIFICATION NEGATIVE (NEGATIVE)
[2023-06-21] MEDS ORDERED: FUROSEMIDE 40MG/4ML VIAL IV ONE (22:50)
[2023-06-22] VITALS (8 sets, daily range): BP systolic 134–151; BP diastolic 65–70; TEMP 96.4–98.5; O2SAT 93–99
[2023-06-22] MEDS ORDERED: DEXTROSE 50% 50ML SYRINGE IV PRN (00:30)
[2023-06-22] MEDS ORDERED: GLUCAGON INJ 1MG VIAL SC PRN (00:30)
[2023-06-22] MEDS ORDERED: GLUCOSE 4GM CHEW TABLET PO PRN (00:30)
[2023-06-22] MEDS ORDERED: MUCI600T31 PO (02:06)
[2023-06-22] MEDS ORDERED: VITMTA PO (02:06)
[2023-06-22] MEDS ORDERED: MIRA0.12 PO (02:06)
[2023-06-22] MEDS ORDERED: MAGN250T7 PO (02:06)
[2023-06-22] MEDS ORDERED: GABA-282 PO (02:06)
[2023-06-22] MEDS ORDERED: BENZ-18 PO (02:06)
[2023-06-22] MEDS ORDERED: VITA200035 PO (02:06)
[2023-06-22] MEDS ORDERED: CULT10CA4 PO (02:06)
[2023-06-22] MEDS ORDERED: TETR1CAP2 PO (02:06)
[2023-06-22] MEDS ORDERED: DILT240C47 PO (02:06)
[2023-06-22] MEDS ORDERED: HOME MED LIST COMPLETE! XX SCH (02:10)
[2023-06-22] MEDS ORDERED: HYDROCORTISONE 1% CREAM 30GM EXT PRN (02:20)
[2023-06-22] MEDS ORDERED: BENZONATATE 100MG CAPSULE PO PRN (02:20)
[2023-06-22] MEDS ORDERED: LACTULOSE 20GM/30ML SYRUP UDC PO PRN (02:20)
[2023-06-22 05:31] LABS: BASO # 0.1 10^3/uL (0.0-0.2); BASO % 0.7 % (0.0-1.0); EOS # 3.2 10^3/uL (0.0-0.5); HEMATOCRIT 24.5 % (36.0-47.0); HEMOGLOBIN 7.8 g/dl (12.0-15.5); LYMPH # 1.4 10^3/uL (1.5-5.0); LYMPH % 19.1 % (24.0-44.0); MEAN CORPUSCULAR HEMOGLOBIN 28.7 pg (27.0-33.0); MEAN CORPUSCULAR HGB CONC 31.8 g/dl (32.0-36.5); MEAN CORPUSCULAR VOLUME 90.1 fl (80.0-96.0); MONO # 0.7 10^3/uL (0.0-0.8); MONO % 10.1 % (2.0-8.0); NEUTROPHILS # 1.8 10^3/uL (1.5-8.5); NEUTROPHILS % 25.3 % (36.0-66.0); PLATELET COUNT, AUTOMATED 216 10^3/uL (150-450); RED BLOOD COUNT 2.72 10^6/uL (4.00-5.40); WHITE BLOOD COUNT 7.1 10^3/uL (4.0-10.0)
[2023-06-22 05:53] LABS: HEMOGLOBIN A1c 7.1 % (4.0-6.0)
[2023-06-22 06:05] LABS: ALBUMIN 2.3 G/DL (3.2-5.2); BLOOD UREA NITROGEN 46 MG/DL (9-23); CALCIUM LEVEL 8.9 MG/DL (8.3-10.6); CARBON DIOXIDE LEVEL 24 MMOL/L (20-31); CHLORIDE LEVEL 107 MMOL/L (98-107); CREATININE FOR GFR 2.31 MG/DL (0.55-1.30); GLOMERULAR FILTRATION RATE 22.5 (>45); GLUCOSE, FASTING 72 MG/DL (74-106); MAGNESIUM LEVEL 1.6 MG/DL (1.8-2.4); PHOSPHORUS LEVEL 5.4 MG/DL (2.4-5.1); POTASSIUM SERUM 4.3 MMOL/L (3.5-5.1); SODIUM LEVEL 140 MMOL/L (136-145)
[2023-06-22 06:35] LABS: EOS % 44.7 % (0.0-3.0)
[2023-06-22] MEDS: ACETAMINOPHEN TAB 650MG DOSE (2X325MG) PO PRN ×2 (06:55→13:24)
[2023-06-22] MEDS: INSULIN LISPRO (NovoLOG) PER UNIT SC SCH ×4 (07:30→20:10)
[2023-06-22] MEDS: CREON-24 CAPSULE PO SCH ×3 (08:37→17:25)
[2023-06-22] MEDS: TACROLIMUS 0.5MG CAP PO SCH ×2 (08:37→20:01)
[2023-06-22] MEDS: HYDROXYCHLOROQUINE 200 MG TAB PO SCH (08:38)
[2023-06-22] MEDS: DOXYCYCLINE HYCLATE 100MG TABLET PO SCH ×2 (08:38→20:01)
[2023-06-22] MEDS: LACTOBACILLUS ACIDOPHILUS CAP (BACID) PO SCH ×3 (08:38→17:25)
[2023-06-22] MEDS: FOLIC ACID 1MG TAB PO SCH (08:38)
[2023-06-22] MEDS: ACYCLOVIR 200 MG CAPSULE PO SCH ×2 (08:39→20:01)
[2023-06-22] MEDS: MULTIVITAMINS/MINERALS THERAP 1 TAB PO SCH (08:39)
[2023-06-22] MEDS: guaiFENesin ER 600 MG TAB PO SCH ×2 (08:39→20:01)
[2023-06-22] MEDS: dilTIAZem 120MG **CD** CAPSULE PO SCH (08:43)
[2023-06-22] MEDS ORDERED: LEVEMIR (INSULIN DETEMIR) 1 UNITS/0.01ML SC SCH (09:00)
[2023-06-22] MEDS ORDERED: allopurinoL 100 MG TAB PO SCH (09:00)
[2023-06-22] MEDS ORDERED: FUROSEMIDE 20MG/2ML VIAL IV SCH (09:00)
[2023-06-22] MEDS: MAG SULF 1GM/100ML (MAG RUN) 1 GM in IV 1 EA IV SCH ×2 (10:28→11:41)
[2023-06-22 10:51] LABS: IRON (FE) 31 UG/DL (50-170); PERCENT SATURATION 12.7 % (13.2-45.0); TOTAL IRON BINDING CAPACITY 244 UG/DL (250-425)
[2023-06-22 10:53] LABS: FERRITIN 59.7 NG/ML (7.3-270.7); FOLATE > 24.00 NG/ML (>5.4); VITAMIN B12 LEVEL 652 PG/ML (211-911)
[2023-06-22] MEDS ORDERED: PILL CUTTER 1 EACH XX PRN (11:00)
[2023-06-22] MEDS: MAGNESIUM OXIDE 400MG TAB (MAG-OX) PO SCH ×2 (13:25→20:01)
[2023-06-22] MEDS ORDERED: MAG SULF 1GM/100ML (MAG RUN) 1 GM in IV 1 EA IV ONE (16:35)
[2023-06-22] MEDS: oxyBUTYnin *DITROPAN XL* 5 MG TABCR PO SCH (20:01)
[2023-06-22] MEDS: MONTELUKAST 10 MG TAB PO SCH (20:01)
[2023-06-22] MEDS: PRAMIPEXOLE (MIRAPEX) 0.125 MG TAB PO SCH (20:02)
[2023-06-22] MEDS: SERTRALINE HCL 50 MG TAB PO SCH (20:02)
[2023-06-22] MEDS: GABAPENTIN 300 MG CAP PO SCH (20:02)
[2023-06-23] MEDS: ACETAMINOPHEN TAB 650MG DOSE (2X325MG) PO PRN ×2 (01:06→15:37)
[2023-06-23 04:00] VITALS: BP 136/67; TEMP 97.2; O2SAT 98
[2023-06-23 04:57] LABS: BASO % 0.6 % (0.0-1.0); EOS # 2.9 10^3/uL (0.0-0.5); HEMATOCRIT 24.8 % (36.0-47.0); LYMPH # 1.4 10^3/uL (1.5-5.0); LYMPH % 20.7 % (24.0-44.0); MEAN CORPUSCULAR HEMOGLOBIN 29.1 pg (27.0-33.0); MEAN CORPUSCULAR HGB CONC 32.3 g/dl (32.0-36.5); MEAN CORPUSCULAR VOLUME 90.2 fl (80.0-96.0); MONO # 0.7 10^3/uL (0.0-0.8); MONO % 10.3 % (2.0-8.0); NEUTROPHILS # 1.8 10^3/uL (1.5-8.5); NEUTROPHILS % 25.7 % (36.0-66.0); PLATELET COUNT, AUTOMATED 194 10^3/uL (150-450); RED BLOOD COUNT 2.75 10^6/uL (4.00-5.40); WHITE BLOOD COUNT 6.9 10^3/uL (4.0-10.0)
[2023-06-23 05:21] LABS: EOS % 42.6 % (0.0-3.0)
[2023-06-23 05:43] LABS: CALCIUM LEVEL 8.7 MG/DL (8.3-10.6); CREATININE FOR GFR 2.22 MG/DL (0.55-1.30); GLOMERULAR FILTRATION RATE 23.5 (>45); MAGNESIUM LEVEL 1.9 MG/DL (1.8-2.4); POTASSIUM SERUM 4.2 MMOL/L (3.5-5.1)
[2023-06-23 07:38] VITALS: BP 145/72; TEMP 97.6; O2SAT 98
[2023-06-23] MEDS: FOLIC ACID 1MG TAB PO SCH (08:46)
[2023-06-23] MEDS: TACROLIMUS 0.5MG CAP PO SCH ×2 (08:46→21:39)
[2023-06-23] MEDS: HYDROXYCHLOROQUINE 200 MG TAB PO SCH (08:46)
[2023-06-23] MEDS: CREON-24 CAPSULE PO SCH ×3 (08:46→17:31)
[2023-06-23] MEDS: dilTIAZem 120MG **CD** CAPSULE PO SCH (08:47)
[2023-06-23] MEDS: allopurinoL 100 MG TAB PO SCH (08:47)
[2023-06-23] MEDS: MULTIVITAMINS/MINERALS THERAP 1 TAB PO SCH (08:47)
[2023-06-23] MEDS: guaiFENesin ER 600 MG TAB PO SCH ×2 (08:47→21:39)
[2023-06-23] MEDS: DOXYCYCLINE HYCLATE 100MG TABLET PO SCH ×2 (08:47→21:39)
[2023-06-23] MEDS: MAGNESIUM OXIDE 400MG TAB (MAG-OX) PO SCH ×2 (08:47→21:39)
[2023-06-23] MEDS: LACTOBACILLUS ACIDOPHILUS CAP (BACID) PO SCH ×3 (08:47→17:31)
[2023-06-23] MEDS: ACYCLOVIR 200 MG CAPSULE PO SCH ×2 (08:47→21:39)
[2023-06-23] MEDS: INSULIN LISPRO (NovoLOG) PER UNIT SC SCH ×4 (08:48→21:00)
[2023-06-23] MEDS ORDERED: BACTRIM 160MG/800MG DS TAB PO SCH (09:00)
[2023-06-23] MEDS ORDERED: FERRIC CARBOXYMALTOSE INJ 750 MG, VIAL MATE ADAPTER 1 EACH in NS 250 ML IV ONE (13:00)
[2023-06-23 15:18] VITALS: BP 144/68; TEMP 98.2; O2SAT 97
[2023-06-23 20:54] VITALS: BP 138/56; TEMP 98.6; O2SAT 96
[2023-06-23] MEDS: PRAMIPEXOLE (MIRAPEX) 0.125 MG TAB PO SCH (21:38)
[2023-06-23] MEDS: GABAPENTIN 300 MG CAP PO SCH (21:39)
[2023-06-23] MEDS: MONTELUKAST 10 MG TAB PO SCH (21:39)
[2023-06-23] MEDS: SERTRALINE HCL 50 MG TAB PO SCH (21:39)
[2023-06-23] MEDS: oxyBUTYnin *DITROPAN XL* 5 MG TABCR PO SCH (21:39)
[2023-06-24 05:51] VITALS: BP 129/71; TEMP 98.2; O2SAT 94
[2023-06-24] MEDS: INSULIN LISPRO (NovoLOG) PER UNIT SC SCH ×4 (07:30→21:00)
[2023-06-24 08:13] LABS: BASO # 0.1 10^3/uL (0.0-0.2); BASO % 0.7 % (0.0-1.0); EOS # 2.7 10^3/uL (0.0-0.5); HEMATOCRIT 25.1 % (36.0-47.0); LYMPH # 1.4 10^3/uL (1.5-5.0); LYMPH % 20.9 % (24.0-44.0); MEAN CORPUSCULAR HEMOGLOBIN 29.3 pg (27.0-33.0); MEAN CORPUSCULAR HGB CONC 31.9 g/dl (32.0-36.5); MEAN CORPUSCULAR VOLUME 91.9 fl (80.0-96.0); MONO # 0.7 10^3/uL (0.0-0.8); MONO % 9.6 % (2.0-8.0); NEUTROPHILS % 28.8 % (36.0-66.0); PLATELET COUNT, AUTOMATED 219 10^3/uL (150-450); RED BLOOD COUNT 2.73 10^6/uL (4.00-5.40); WHITE BLOOD COUNT 6.8 10^3/uL (4.0-10.0)
[2023-06-24] MEDS: LACTOBACILLUS ACIDOPHILUS CAP (BACID) PO SCH ×3 (08:14→17:14)
[2023-06-24] MEDS: CREON-24 CAPSULE PO SCH ×3 (08:14→17:14)
[2023-06-24] MEDS: TACROLIMUS 0.5MG CAP PO SCH ×2 (08:14→21:56)
[2023-06-24] MEDS: ACYCLOVIR 200 MG CAPSULE PO SCH ×2 (08:15→21:55)
[2023-06-24] MEDS: HYDROXYCHLOROQUINE 200 MG TAB PO SCH (08:17)
[2023-06-24] MEDS: MAGNESIUM OXIDE 400MG TAB (MAG-OX) PO SCH ×2 (08:17→21:55)
[2023-06-24] MEDS: DOXYCYCLINE HYCLATE 100MG TABLET PO SCH ×2 (08:17→21:56)
[2023-06-24] MEDS: MULTIVITAMINS/MINERALS THERAP 1 TAB PO SCH (08:17)
[2023-06-24] MEDS: dilTIAZem 120MG **CD** CAPSULE PO SCH (08:17)
[2023-06-24] MEDS: FOLIC ACID 1MG TAB PO SCH (08:18)
[2023-06-24] MEDS: guaiFENesin ER 600 MG TAB PO SCH ×2 (08:18→21:55)
[2023-06-24] MEDS: allopurinoL 100 MG TAB PO SCH (08:18)
[2023-06-24] MEDS: ACETAMINOPHEN TAB 650MG DOSE (2X325MG) PO PRN ×2 (08:25→21:55)
[2023-06-24 08:37] LABS: CALCIUM LEVEL 9.2 MG/DL (8.3-10.6); CREATININE FOR GFR 2.03 MG/DL (0.55-1.30); GLOMERULAR FILTRATION RATE 26.1 (>45); POTASSIUM SERUM 4.2 MMOL/L (3.5-5.1)
[2023-06-24 09:12] LABS: EOS % 39.7 % (0.0-3.0)
[2023-06-24 14:00] VITALS: BP 128/71; TEMP 98.2; O2SAT 97
[2023-06-24] MEDS ORDERED: METOPROLOL TART 25 MG TABLET PO ONE (18:10)
[2023-06-24 21:16] VITALS: BP 139/77; TEMP 99; O2SAT 96
[2023-06-24] MEDS: GABAPENTIN 300 MG CAP PO SCH (21:55)
[2023-06-24] MEDS: SERTRALINE HCL 50 MG TAB PO SCH (21:55)
[2023-06-24] MEDS: oxyBUTYnin *DITROPAN XL* 5 MG TABCR PO SCH (21:55)
[2023-06-24] MEDS: PRAMIPEXOLE (MIRAPEX) 0.125 MG TAB PO SCH (21:55)
[2023-06-24] MEDS: HEPARIN SOD (PORCINE) 5000UNITS/ML 1ML VIAL/SYRINGE SQ SCH (21:56)
[2023-06-24] MEDS: MONTELUKAST 10 MG TAB PO SCH (21:56)
[2023-06-25] MEDS: HEPARIN SOD (PORCINE) 5000UNITS/ML 1ML VIAL/SYRINGE SQ SCH ×3 (05:08→21:35)
[2023-06-25 05:11] VITALS: BP 127/63; TEMP 99.1; O2SAT 93
[2023-06-25] MEDS: ACETAMINOPHEN TAB 650MG DOSE (2X325MG) PO PRN ×2 (05:23→21:34)
[2023-06-25 07:44] LABS: BASO # 0.1 10^3/uL (0.0-0.2); BASO % 0.9 % (0.0-1.0); EOS # 2.8 10^3/uL (0.0-0.5); HEMATOCRIT 23.9 % (36.0-47.0); HEMOGLOBIN 7.5 g/dl (12.0-15.5); LYMPH # 1.5 10^3/uL (1.5-5.0); LYMPH % 21.8 % (24.0-44.0); MEAN CORPUSCULAR HGB CONC 31.4 g/dl (32.0-36.5); MEAN CORPUSCULAR VOLUME 92.3 fl (80.0-96.0); MONO # 0.8 10^3/uL (0.0-0.8); MONO % 11.4 % (2.0-8.0); NEUTROPHILS # 1.8 10^3/uL (1.5-8.5); NEUTROPHILS % 25.7 % (36.0-66.0); PLATELET COUNT, AUTOMATED 195 10^3/uL (150-450); RED BLOOD COUNT 2.59 10^6/uL (4.00-5.40); WHITE BLOOD COUNT 6.9 10^3/uL (4.0-10.0)
[2023-06-25] MEDS: INSULIN LISPRO (NovoLOG) PER UNIT SC SCH ×4 (08:07→21:00)
[2023-06-25] MEDS: HYDROXYCHLOROQUINE 200 MG TAB PO SCH (08:07)
[2023-06-25] MEDS: ACYCLOVIR 200 MG CAPSULE PO SCH ×2 (08:07→21:32)
[2023-06-25] MEDS: LACTOBACILLUS ACIDOPHILUS CAP (BACID) PO SCH ×3 (08:07→16:59)
[2023-06-25] MEDS: CREON-24 CAPSULE PO SCH ×3 (08:07→16:59)
[2023-06-25] MEDS: MAGNESIUM OXIDE 400MG TAB (MAG-OX) PO SCH ×2 (08:07→21:33)
[2023-06-25] MEDS: TACROLIMUS 0.5MG CAP PO SCH ×2 (08:07→21:33)
[2023-06-25] MEDS: allopurinoL 100 MG TAB PO SCH (08:08)
[2023-06-25] MEDS: dilTIAZem 120MG **CD** CAPSULE PO SCH (08:08)
[2023-06-25] MEDS: FOLIC ACID 1MG TAB PO SCH (08:08)
[2023-06-25] MEDS: guaiFENesin ER 600 MG TAB PO SCH ×2 (08:08→21:32)
[2023-06-25] MEDS: MULTIVITAMINS/MINERALS THERAP 1 TAB PO SCH (08:08)
[2023-06-25 08:33] LABS: EOS % 40.1 % (0.0-3.0)
[2023-06-25 08:38] LABS: CALCIUM LEVEL 9.3 MG/DL (8.3-10.6); CREATININE FOR GFR 2.17 MG/DL (0.55-1.30); GLOMERULAR FILTRATION RATE 24.2 (>45); MAGNESIUM LEVEL 1.8 MG/DL (1.8-2.4); POTASSIUM SERUM 4.4 MMOL/L (3.5-5.1)
[2023-06-25 14:00] VITALS: BP 138/67; TEMP 98.1; O2SAT 96
[2023-06-25 21:26] VITALS: BP 144/70; TEMP 98.2; O2SAT 96
[2023-06-25] MEDS: PRAMIPEXOLE (MIRAPEX) 0.125 MG TAB PO SCH (21:32)
[2023-06-25] MEDS: oxyBUTYnin *DITROPAN XL* 5 MG TABCR PO SCH (21:32)
[2023-06-25] MEDS: SERTRALINE HCL 50 MG TAB PO SCH (21:32)
[2023-06-25] MEDS: MONTELUKAST 10 MG TAB PO SCH (21:32)
[2023-06-25] MEDS: GABAPENTIN 300 MG CAP PO SCH (21:33)
[2023-06-26 05:13] VITALS: BP 141/68; TEMP 99; O2SAT 96
[2023-06-26] MEDS: HEPARIN SOD (PORCINE) 5000UNITS/ML 1ML VIAL/SYRINGE SQ SCH ×3 (05:29→19:54)
[2023-06-26 05:43] LABS: BASO # 0.1 10^3/uL (0.0-0.2); BASO % 0.7 % (0.0-1.0); EOS # 2.8 10^3/uL (0.0-0.5); HEMATOCRIT 23.8 % (36.0-47.0); HEMOGLOBIN 7.5 g/dl (12.0-15.5); LYMPH # 1.9 10^3/uL (1.5-5.0); LYMPH % 24.7 % (24.0-44.0); MEAN CORPUSCULAR HGB CONC 31.5 g/dl (32.0-36.5); MEAN CORPUSCULAR VOLUME 91.9 fl (80.0-96.0); MONO # 0.9 10^3/uL (0.0-0.8); MONO % 11.1 % (2.0-8.0); NEUTROPHILS # 2.1 10^3/uL (1.5-8.5); NEUTROPHILS % 26.7 % (36.0-66.0); PLATELET COUNT, AUTOMATED 200 10^3/uL (150-450); RED BLOOD COUNT 2.59 10^6/uL (4.00-5.40); WHITE BLOOD COUNT 7.7 10^3/uL (4.0-10.0)
[2023-06-26 05:44] LABS: EOS % 36.7 % (0.0-3.0)
[2023-06-26 06:06] LABS: CALCIUM LEVEL 9.4 MG/DL (8.3-10.6); CREATININE FOR GFR 2.09 MG/DL (0.55-1.30); GLOMERULAR FILTRATION RATE 25.2 (>45); POTASSIUM SERUM 4.4 MMOL/L (3.5-5.1)
[2023-06-26] MEDS: INSULIN LISPRO (NovoLOG) PER UNIT SC SCH ×4 (07:30→19:49)
[2023-06-26] MEDS: FOLIC ACID 1MG TAB PO SCH (08:19)
[2023-06-26] MEDS: guaiFENesin ER 600 MG TAB PO SCH ×2 (08:19→19:47)
[2023-06-26] MEDS: CREON-24 CAPSULE PO SCH ×3 (08:19→17:28)
[2023-06-26] MEDS: LACTOBACILLUS ACIDOPHILUS CAP (BACID) PO SCH ×3 (08:19→17:28)
[2023-06-26] MEDS: HYDROXYCHLOROQUINE 200 MG TAB PO SCH (08:19)
[2023-06-26] MEDS: MULTIVITAMINS/MINERALS THERAP 1 TAB PO SCH (08:19)
[2023-06-26] MEDS: allopurinoL 100 MG TAB PO SCH (08:19)
[2023-06-26] MEDS: TACROLIMUS 0.5MG CAP PO SCH ×2 (08:19→19:47)
[2023-06-26] MEDS: MAGNESIUM OXIDE 400MG TAB (MAG-OX) PO SCH ×2 (08:20→19:47)
[2023-06-26] MEDS: dilTIAZem 120MG **CD** CAPSULE PO SCH (08:22)
[2023-06-26 08:53] LABS: APPEARANCE, URINE CLEAR (CLEAR); BACTERIA, URINE AUTO NEGATIVE (NEGATIVE); BILIRUBIN, URINE AUTO NEGATIVE (NEGATIVE); BLOOD, URINE BLOOD NEGATIVE (NEGATIVE); COLOR, URINE YELLOW (YELLOW); GLUCOSE, URINE (UA) AUTO NEGATIVE (NEGATIVE); KETONE, URINE AUTO NEGATIVE (NEGATIVE); LEUKOCYTE ESTERASE, URINE AUTO NEGATIVE (NEGATIVE); NITRITE, URINE AUTO NEGATIVE (NEGATIVE); PROTEIN, URINE AUTO 2+ mg/dL (NEGATIVE); RBC, URINE AUTO 1 /HPF (0-3); SQUAMOUS EPITHELIAL CELL UR AU 0 /HPF (0-6); UROBILINOGEN, URINE AUTO 0.2 mg/dL (0.0-2.0); WBC, URINE AUTO 3 /HPF (0-3)
[2023-06-26] MEDS ORDERED: BACTRIM 160MG/800MG DS TAB PO SCH (09:00)
[2023-06-26] MEDS: ACYCLOVIR 200 MG CAPSULE PO SCH ×2 (12:12→20:39)
[2023-06-26] MEDS ORDERED: METOPROLOL TART 25 MG TABLET PO ONE (17:50)
[2023-06-26] MEDS: PRAMIPEXOLE (MIRAPEX) 0.125 MG TAB PO SCH (19:46)
[2023-06-26] MEDS: oxyBUTYnin *DITROPAN XL* 5 MG TABCR PO SCH (19:47)
[2023-06-26] MEDS: SERTRALINE HCL 50 MG TAB PO SCH (19:47)
[2023-06-26] MEDS: MONTELUKAST 10 MG TAB PO SCH (19:47)
[2023-06-26] MEDS: GABAPENTIN 300 MG CAP PO SCH (19:48)
[2023-06-26] MEDS: ACETAMINOPHEN TAB 650MG DOSE (2X325MG) PO PRN (19:53)
[2023-06-26 21:45] VITALS: BP 139/74; TEMP 98.8; O2SAT 95
[2023-06-27] VITALS (8 sets, daily range): BP systolic 111–155; BP diastolic 58–97; TEMP 98.6–98.8; O2SAT 94–98
[2023-06-27] MEDS: HEPARIN SOD (PORCINE) 5000UNITS/ML 1ML VIAL/SYRINGE SQ SCH ×3 (05:13→20:33)
[2023-06-27 06:01] LABS: BASO # 0.1 10^3/uL (0.0-0.2); BASO % 0.9 % (0.0-1.0); EOS # 2.6 10^3/uL (0.0-0.5); HEMOGLOBIN 7.6 g/dl (12.0-15.5); LYMPH # 1.5 10^3/uL (1.5-5.0); LYMPH % 22.1 % (24.0-44.0); MEAN CORPUSCULAR HGB CONC 31.7 g/dl (32.0-36.5); MEAN CORPUSCULAR VOLUME 91.6 fl (80.0-96.0); MONO # 0.7 10^3/uL (0.0-0.8); MONO % 10.9 % (2.0-8.0); NEUTROPHILS # 1.9 10^3/uL (1.5-8.5); NEUTROPHILS % 27.7 % (36.0-66.0); PLATELET COUNT, AUTOMATED 202 10^3/uL (150-450); RED BLOOD COUNT 2.62 10^6/uL (4.00-5.40); WHITE BLOOD COUNT 6.7 10^3/uL (4.0-10.0)
[2023-06-27 06:26] LABS: CALCIUM LEVEL 9.6 MG/DL (8.3-10.6); CREATININE FOR GFR 2.04 MG/DL (0.55-1.30); GLOMERULAR FILTRATION RATE 25.9 (>45); MAGNESIUM LEVEL 1.8 MG/DL (1.8-2.4); POTASSIUM SERUM 4.2 MMOL/L (3.5-5.1)
[2023-06-27 06:55] LABS: EOS % 38.3 % (0.0-3.0)
[2023-06-27] MEDS: INSULIN LISPRO (NovoLOG) PER UNIT SC SCH ×4 (07:30→20:22)
[2023-06-27] MEDS ORDERED: NS 1,000 ML IV SCH (07:40)
[2023-06-27] MEDS: guaiFENesin ER 600 MG TAB PO SCH ×2 (10:06→20:33)
[2023-06-27] MEDS: ACYCLOVIR 200 MG CAPSULE PO SCH ×2 (10:06→20:39)
[2023-06-27] MEDS: allopurinoL 100 MG TAB PO SCH (10:06)
[2023-06-27] MEDS: TACROLIMUS 0.5MG CAP PO SCH ×2 (10:06→20:39)
[2023-06-27] MEDS: CREON-24 CAPSULE PO SCH ×3 (10:06→18:00)
[2023-06-27] MEDS: HYDROXYCHLOROQUINE 200 MG TAB PO SCH (10:07)
[2023-06-27] MEDS: dilTIAZem 120MG **CD** CAPSULE PO SCH (10:07)
[2023-06-27] MEDS: LACTOBACILLUS ACIDOPHILUS CAP (BACID) PO SCH ×3 (10:08→18:00)
[2023-06-27] MEDS: MULTIVITAMINS/MINERALS THERAP 1 TAB PO SCH (10:08)
[2023-06-27] MEDS: MAGNESIUM OXIDE 400MG TAB (MAG-OX) PO SCH ×2 (10:08→20:33)
[2023-06-27] MEDS: FOLIC ACID 1MG TAB PO SCH (10:08)
[2023-06-27] MEDS: ACETAMINOPHEN TAB 650MG DOSE (2X325MG) PO PRN (10:09)
[2023-06-27] MEDS ORDERED: SODIUM CHLORIDE 0.9% INJ 10 ML SYR IV PRN (10:45)
[2023-06-27] MEDS ORDERED: SALIVA SUBSTITUTE(MOUTHKOTE) BTL MT PRN (13:25)
[2023-06-27] MEDS ORDERED: CETACAINE SPRAY 5GM As Ordered ONE (17:39)
[2023-06-27] MEDS ORDERED: MIDAZOLAM INJ 2MG/2ML VIAL As Ordered ONE (17:58)
[2023-06-27] MEDS ORDERED: propofoL 200 MG/20 ML VIAL As Ordered ONE (17:58)
[2023-06-27] MEDS ORDERED: fentaNYL 100 MCG/2 ML INJECTION As Ordered ONE (17:58)
[2023-06-27] MEDS ORDERED: LIDOCAINE 2% 100MG/5ML SDV (FOR ANES.) As Ordered ONE (17:58)
[2023-06-27] MEDS ORDERED: LR 1,000 ML IV SCH (18:40)
[2023-06-27] MEDS ORDERED: ONDANSETRON 4MG 2ML VIAL IV PRN (18:40)
[2023-06-27] MEDS: GABAPENTIN 300 MG CAP PO SCH (20:33)
[2023-06-27] MEDS: MONTELUKAST 10 MG TAB PO SCH (20:33)
[2023-06-27] MEDS: SERTRALINE HCL 50 MG TAB PO SCH (20:33)
[2023-06-27] MEDS: oxyBUTYnin *DITROPAN XL* 5 MG TABCR PO SCH (20:38)
[2023-06-27] MEDS: PRAMIPEXOLE (MIRAPEX) 0.125 MG TAB PO SCH (20:39)
[2023-06-28] VITALS: BP 137/71; TEMP 98.2; O2SAT 97
[2023-06-28] MEDS: ACETAMINOPHEN TAB 650MG DOSE (2X325MG) PO PRN ×3 (00:47→15:47)
[2023-06-28] MEDS ORDERED: METOPROLOL TART 25 MG TABLET PO ONE (02:00)
[2023-06-28 03:15] VITALS: BP 133/82
[2023-06-28 04:00] VITALS: BP 134/80; TEMP 98.8; O2SAT 97
[2023-06-28 05:43] LABS: HEMATOCRIT 24.9 % (36.0-47.0); HEMOGLOBIN 7.7 g/dl (12.0-15.5); MEAN CORPUSCULAR HEMOGLOBIN 28.9 pg (27.0-33.0); MEAN CORPUSCULAR HGB CONC 30.9 g/dl (32.0-36.5); MEAN CORPUSCULAR VOLUME 93.6 fl (80.0-96.0); PLATELET COUNT, AUTOMATED 192 10^3/uL (150-450); RED BLOOD COUNT 2.66 10^6/uL (4.00-5.40); WHITE BLOOD COUNT 2.2 10^3/uL (4.0-10.0)
[2023-06-28 06:04] LABS: CALCIUM LEVEL 9.5 MG/DL (8.3-10.6); CREATININE FOR GFR 1.88 MG/DL (0.55-1.30); GLOMERULAR FILTRATION RATE 28.5 (>45); POTASSIUM SERUM 4.2 MMOL/L (3.5-5.1)
[2023-06-28] MEDS: HEPARIN SOD (PORCINE) 5000UNITS/ML 1ML VIAL/SYRINGE SQ SCH ×3 (06:10→20:23)
[2023-06-28 06:47] LABS: ANISOCYTOSIS 1+; ATYPICAL LYMPH 1 % (0-5); EOSINOPHILS 1 % (0-3); LYMPHOCYTES 34 % (16-44); MONOCYTES 2 % (0-5); NEUTROPHILS 62 % (28-66); PLATELET ESTIMATE NORMAL (NORMAL)
[2023-06-28 06:49] LABS: POLYCHROMASIA 1+
[2023-06-28 06:52] LABS: HYPOCHROMASIA 1+
[2023-06-28 08:29] LABS: MAGNESIUM LEVEL 1.8 MG/DL (1.8-2.4)
[2023-06-28] MEDS: INSULIN LISPRO (NovoLOG) PER UNIT SC SCH ×4 (09:17→20:27)
[2023-06-28] MEDS: LACTOBACILLUS ACIDOPHILUS CAP (BACID) PO SCH ×3 (09:52→17:49)
[2023-06-28] MEDS: CREON-24 CAPSULE PO SCH ×3 (09:52→17:49)
[2023-06-28] MEDS: HYDROXYCHLOROQUINE 200 MG TAB PO SCH (09:53)
[2023-06-28] MEDS: dilTIAZem 120MG **CD** CAPSULE PO SCH (09:53)
[2023-06-28] MEDS: allopurinoL 100 MG TAB PO SCH (09:53)
[2023-06-28] MEDS: FOLIC ACID 1MG TAB PO SCH (09:54)
[2023-06-28] MEDS: MULTIVITAMINS/MINERALS THERAP 1 TAB PO SCH (09:54)
[2023-06-28] MEDS: ACYCLOVIR 200 MG CAPSULE PO SCH ×2 (09:54→20:22)
[2023-06-28] MEDS: TACROLIMUS 0.5MG CAP PO SCH ×2 (09:54→20:38)
[2023-06-28] MEDS: MAGNESIUM OXIDE 400MG TAB (MAG-OX) PO SCH ×2 (09:54→20:23)
[2023-06-28] MEDS: guaiFENesin ER 600 MG TAB PO SCH ×2 (09:54→20:22)
[2023-06-28] MEDS: SODIUM CHLORIDE 0.9% INJ 10 ML SYR IV SCH (09:55)
[2023-06-28 14:00] VITALS: BP 134/65; TEMP 98.2; O2SAT 96
[2023-06-28] MEDS: PRAMIPEXOLE (MIRAPEX) 0.125 MG TAB PO SCH (20:22)
[2023-06-28] MEDS: SERTRALINE HCL 50 MG TAB PO SCH (20:23)
[2023-06-28] MEDS: oxyBUTYnin *DITROPAN XL* 5 MG TABCR PO SCH (20:23)
[2023-06-28] MEDS: GABAPENTIN 300 MG CAP PO SCH (20:23)
[2023-06-28] MEDS: MONTELUKAST 10 MG TAB PO SCH (20:23)
[2023-06-28] MEDS ORDERED: ONDANSETRON 4MG ORAL DISINTEGRATING TAB SL PRN (23:10)
[2023-06-29] MEDS: PROMETHAZINE 25 MG TAB PO PRN (00:26)
[2023-06-29] MEDS: HEPARIN SOD (PORCINE) 5000UNITS/ML 1ML VIAL/SYRINGE SQ SCH ×3 (05:18→20:25)
[2023-06-29 05:26] VITALS: BP 140/73; TEMP 98.8; O2SAT 99
[2023-06-29 08:05] LABS: BASO % 0.3 % (0.0-1.0); EOS # 1.4 10^3/uL (0.0-0.5); EOS % 14.9 % (0.0-3.0); HEMATOCRIT 23.2 % (36.0-47.0); HEMOGLOBIN 7.2 g/dl (12.0-15.5); LYMPH # 1.8 10^3/uL (1.5-5.0); MEAN CORPUSCULAR HEMOGLOBIN 28.7 pg (27.0-33.0); MEAN CORPUSCULAR VOLUME 92.4 fl (80.0-96.0); MONO # 0.7 10^3/uL (0.0-0.8); MONO % 7.7 % (2.0-8.0); NEUTROPHILS # 5.3 10^3/uL (1.5-8.5); NEUTROPHILS % 57.7 % (36.0-66.0); PLATELET COUNT, AUTOMATED 193 10^3/uL (150-450); RED BLOOD COUNT 2.51 10^6/uL (4.00-5.40); WHITE BLOOD COUNT 9.3 10^3/uL (4.0-10.0)
[2023-06-29 08:41] LABS: CALCIUM LEVEL 9.1 MG/DL (8.3-10.6); CREATININE FOR GFR 1.98 MG/DL (0.55-1.30); GLOMERULAR FILTRATION RATE 26.8 (>45); POTASSIUM SERUM 3.9 MMOL/L (3.5-5.1)
[2023-06-29] MEDS: SODIUM CHLORIDE 0.9% INJ 10 ML SYR IV SCH (09:00)
[2023-06-29] MEDS: LACTOBACILLUS ACIDOPHILUS CAP (BACID) PO SCH ×3 (09:12→17:50)
[2023-06-29] MEDS: FOLIC ACID 1MG TAB PO SCH (09:12)
[2023-06-29] MEDS: MULTIVITAMINS/MINERALS THERAP 1 TAB PO SCH (09:12)
[2023-06-29] MEDS: MAGNESIUM OXIDE 400MG TAB (MAG-OX) PO SCH ×2 (09:12→20:22)
[2023-06-29] MEDS: INSULIN LISPRO (NovoLOG) PER UNIT SC SCH ×4 (09:12→20:46)
[2023-06-29] MEDS: TACROLIMUS 0.5MG CAP PO SCH ×2 (09:12→20:22)
[2023-06-29] MEDS: guaiFENesin ER 600 MG TAB PO SCH ×2 (09:12→20:22)
[2023-06-29] MEDS: HYDROXYCHLOROQUINE 200 MG TAB PO SCH (09:12)
[2023-06-29] MEDS: allopurinoL 100 MG TAB PO SCH (09:13)
[2023-06-29] MEDS: ACYCLOVIR 200 MG CAPSULE PO SCH ×2 (09:13→20:22)
[2023-06-29] MEDS: CREON-24 CAPSULE PO SCH ×3 (09:13→17:50)
[2023-06-29] MEDS: dilTIAZem 120MG **CD** CAPSULE PO SCH (09:14)
[2023-06-29] MEDS: ACETAMINOPHEN TAB 650MG DOSE (2X325MG) PO PRN (13:34)
[2023-06-29] MEDS: PRAMIPEXOLE (MIRAPEX) 0.125 MG TAB PO SCH (20:21)
[2023-06-29] MEDS: MONTELUKAST 10 MG TAB PO SCH (20:22)
[2023-06-29] MEDS: oxyBUTYnin *DITROPAN XL* 5 MG TABCR PO SCH (20:22)
[2023-06-29] MEDS: GABAPENTIN 300 MG CAP PO SCH (20:22)
[2023-06-29] MEDS: SERTRALINE HCL 50 MG TAB PO SCH (20:22)
[2023-06-29 20:30] VITALS: BP 149/91; TEMP 99; O2SAT 93
[2023-06-29] MEDS ORDERED: dilTIAZem 60 MG TAB PO ONE (21:00)
[2023-06-29 23:17] VITALS: BP 148/84; O2SAT 95
[2023-06-30] VITALS (7 sets, daily range): BP systolic 138–151; BP diastolic 73–91; TEMP 95–98.8; O2SAT 83–95
[2023-06-30] MEDS: METOPROLOL TART 25 MG TABLET PO SCH ×5 (01:10→22:54)
[2023-06-30] MEDS ORDERED: FUROSEMIDE 100MG/10ML VIAL IV ONE (02:00)
[2023-06-30] MEDS: HEPARIN SOD (PORCINE) 5000UNITS/ML 1ML VIAL/SYRINGE SQ SCH ×2 (05:28→12:44)
[2023-06-30 06:12] LABS: HEMATOCRIT 25.9 % (36.0-47.0); HEMOGLOBIN 8.3 g/dl (12.0-15.5); MEAN CORPUSCULAR HEMOGLOBIN 29.6 pg (27.0-33.0); MEAN CORPUSCULAR VOLUME 92.5 fl (80.0-96.0); PLATELET COUNT, AUTOMATED 201 10^3/uL (150-450); WHITE BLOOD COUNT 7.8 10^3/uL (4.0-10.0)
[2023-06-30 06:38] LABS: CALCIUM LEVEL 9.5 MG/DL (8.3-10.6); CREATININE FOR GFR 1.7 MG/DL (0.55-1.30)
[2023-06-30] MEDS ORDERED: dilTIAZem 120MG **CD** CAPSULE PO SCH (09:00)
[2023-06-30] MEDS: SODIUM CHLORIDE 0.9% INJ 10 ML SYR IV SCH (09:00)
[2023-06-30] MEDS ORDERED: DIGOXIN 0.25 MG TAB PO ONE ×2 (09:00→15:00)
[2023-06-30] MEDS: guaiFENesin ER 600 MG TAB PO SCH ×2 (09:00→20:52)
[2023-06-30] MEDS: INSULIN LISPRO (NovoLOG) PER UNIT SC SCH ×4 (09:12→20:26)
[2023-06-30] MEDS: MULTIVITAMINS/MINERALS THERAP 1 TAB PO SCH (09:12)
[2023-06-30] MEDS: ACYCLOVIR 200 MG CAPSULE PO SCH ×2 (09:13→20:53)
[2023-06-30] MEDS: FOLIC ACID 1MG TAB PO SCH (09:13)
[2023-06-30] MEDS: LACTOBACILLUS ACIDOPHILUS CAP (BACID) PO SCH ×3 (09:13→17:34)
[2023-06-30] MEDS: allopurinoL 100 MG TAB PO SCH (09:13)
[2023-06-30] MEDS: CREON-24 CAPSULE PO SCH ×3 (09:14→17:34)
[2023-06-30] MEDS: MAGNESIUM OXIDE 400MG TAB (MAG-OX) PO SCH ×2 (09:14→20:53)
[2023-06-30] MEDS: TACROLIMUS 0.5MG CAP PO SCH ×2 (09:14→20:53)
[2023-06-30] MEDS: HYDROXYCHLOROQUINE 200 MG TAB PO SCH (09:14)
[2023-06-30 12:09] LABS: INR 1.43
[2023-06-30 12:10] LABS: PARTIAL THROMBOPLASTIN TIME 44.9 SECONDS (24.8-34.2)
[2023-06-30] MEDS: BACTRIM 160MG/800MG DS TAB PO SCH (12:55)
[2023-06-30] MEDS: APIXABAN 5 MG TAB (ELIQUIS) PO SCH (20:52)
[2023-06-30] MEDS: oxyBUTYnin *DITROPAN XL* 5 MG TABCR PO SCH (20:53)
[2023-06-30] MEDS: SERTRALINE HCL 50 MG TAB PO SCH (20:53)
[2023-06-30] MEDS: GABAPENTIN 300 MG CAP PO SCH (20:53)
[2023-06-30] MEDS: MONTELUKAST 10 MG TAB PO SCH (20:53)
[2023-06-30] MEDS: PRAMIPEXOLE (MIRAPEX) 0.125 MG TAB PO SCH (20:53)
[2023-06-30] MEDS: ACETAMINOPHEN TAB 650MG DOSE (2X325MG) PO PRN (20:54)
[2023-06-30] MEDS ORDERED: DIGOXIN 0.125 MG TAB PO ONE (21:00)
[2023-07-01 05:34] VITALS: BP_SYST 158; BP_SYST 168; BP_DIAS 84; TEMP 98.1; O2SAT 96
[2023-07-01] MEDS: METOPROLOL TART 25 MG TABLET PO SCH (05:38)
[2023-07-01] MEDS: LACTOBACILLUS ACIDOPHILUS CAP (BACID) PO SCH ×3 (08:20→17:03)
[2023-07-01] MEDS: INSULIN LISPRO (NovoLOG) PER UNIT SC SCH ×4 (08:20→21:00)
[2023-07-01] MEDS: MAGNESIUM OXIDE 400MG TAB (MAG-OX) PO SCH ×2 (08:21→19:49)
[2023-07-01] MEDS: ACYCLOVIR 200 MG CAPSULE PO SCH ×2 (08:21→19:49)
[2023-07-01] MEDS: TACROLIMUS 0.5MG CAP PO SCH ×2 (08:21→19:49)
[2023-07-01] MEDS: CREON-24 CAPSULE PO SCH ×3 (08:21→17:03)
[2023-07-01] MEDS: FOLIC ACID 1MG TAB PO SCH (08:21)
[2023-07-01] MEDS: MULTIVITAMINS/MINERALS THERAP 1 TAB PO SCH (08:21)
[2023-07-01] MEDS: APIXABAN 5 MG TAB (ELIQUIS) PO SCH ×2 (08:21→19:49)
[2023-07-01] MEDS: HYDROXYCHLOROQUINE 200 MG TAB PO SCH (08:22)
[2023-07-01] MEDS: allopurinoL 100 MG TAB PO SCH (08:22)
[2023-07-01] MEDS: guaiFENesin ER 600 MG TAB PO SCH ×2 (08:22→19:49)
[2023-07-01] MEDS: SODIUM CHLORIDE 0.9% INJ 10 ML SYR IV SCH (08:23)
[2023-07-01 08:37] LABS: BASO # 0.1 10^3/uL (0.0-0.2); BASO % 1.2 % (0.0-1.0); HEMOGLOBIN 8.5 g/dl (12.0-15.5); LYMPH # 1.2 10^3/uL (1.5-5.0); LYMPH % 23.8 % (24.0-44.0); MEAN CORPUSCULAR HEMOGLOBIN 29.1 pg (27.0-33.0); MEAN CORPUSCULAR HGB CONC 31.5 g/dl (32.0-36.5); MEAN CORPUSCULAR VOLUME 92.5 fl (80.0-96.0); MONO # 0.6 10^3/uL (0.0-0.8); NEUTROPHILS # 1.9 10^3/uL (1.5-8.5); PLATELET COUNT, AUTOMATED 196 10^3/uL (150-450); RED BLOOD COUNT 2.92 10^6/uL (4.00-5.40)
[2023-07-01 08:57] LABS: CALCIUM LEVEL 9.6 MG/DL (8.3-10.6); CREATININE FOR GFR 1.62 MG/DL (0.55-1.30); GLOMERULAR FILTRATION RATE 33.8 (>45); POTASSIUM SERUM 4.1 MMOL/L (3.5-5.1)
[2023-07-01] MEDS ORDERED: DIGOXIN 0.25 MG TAB PO SCH ×2 (09:00)
[2023-07-01] MEDS ORDERED: FUROSEMIDE 40MG/4ML VIAL IV SCH (09:00)
[2023-07-01 09:02] LABS: EOS # 1.3 10^3/uL (0.0-0.5); EOS % 25.8 % (0.0-3.0)
[2023-07-01 09:29] LABS: DIGOXIN LEVEL 1.3 NG/ML (0.8-2.0)
[2023-07-01] MEDS ORDERED: METOPROLOL SUCC *XL* 25MG TAB (TopROL *XL*) PO ONE (10:30)
[2023-07-01] MEDS ORDERED: DIGOXIN 0.125 MG TAB PO ONE (11:00)
[2023-07-01 14:00] VITALS: BP 160/83; TEMP 98.2; O2SAT 94
[2023-07-01] MEDS: GABAPENTIN 300 MG CAP PO SCH (19:49)
[2023-07-01] MEDS: SERTRALINE HCL 50 MG TAB PO SCH (19:49)
[2023-07-01] MEDS: oxyBUTYnin *DITROPAN XL* 5 MG TABCR PO SCH (19:49)
[2023-07-01] MEDS: MONTELUKAST 10 MG TAB PO SCH (19:49)
[2023-07-01] MEDS: PRAMIPEXOLE (MIRAPEX) 0.125 MG TAB PO SCH (19:50)
[2023-07-01] MEDS: ACETAMINOPHEN TAB 650MG DOSE (2X325MG) PO PRN (19:52)
[2023-07-01 20:00] VITALS: BP 158/84; TEMP 98.8; O2SAT 93
[2023-07-02] MEDS: ACETAMINOPHEN TAB 650MG DOSE (2X325MG) PO PRN ×4 (02:31→21:27)
[2023-07-02 06:00] VITALS: BP 158/82; TEMP 98.2; O2SAT 96
[2023-07-02 06:07] LABS: BASO % 0.7 % (0.0-1.0); HEMATOCRIT 24.9 % (36.0-47.0); HEMOGLOBIN 7.8 g/dl (12.0-15.5); LYMPH # 1.3 10^3/uL (1.5-5.0); LYMPH % 22.2 % (24.0-44.0); MEAN CORPUSCULAR HEMOGLOBIN 29.2 pg (27.0-33.0); MEAN CORPUSCULAR HGB CONC 31.3 g/dl (32.0-36.5); MEAN CORPUSCULAR VOLUME 93.3 fl (80.0-96.0); MONO # 0.7 10^3/uL (0.0-0.8); MONO % 11.3 % (2.0-8.0); NEUTROPHILS # 2.5 10^3/uL (1.5-8.5); NEUTROPHILS % 41.7 % (36.0-66.0); PLATELET COUNT, AUTOMATED 202 10^3/uL (150-450); RED BLOOD COUNT 2.67 10^6/uL (4.00-5.40)
[2023-07-02 06:34] LABS: CALCIUM LEVEL 9.2 MG/DL (8.3-10.6); CREATININE FOR GFR 1.72 MG/DL (0.55-1.30); GLOMERULAR FILTRATION RATE 31.6 (>45); MAGNESIUM LEVEL 1.6 MG/DL (1.8-2.4); POTASSIUM SERUM 4.2 MMOL/L (3.5-5.1)
[2023-07-02 06:52] LABS: EOS # 1.4 10^3/uL (0.0-0.5); EOS % 23.9 % (0.0-3.0)
[2023-07-02] MEDS: APIXABAN 5 MG TAB (ELIQUIS) PO SCH ×2 (08:56→21:25)
[2023-07-02] MEDS: LACTOBACILLUS ACIDOPHILUS CAP (BACID) PO SCH ×3 (08:56→17:13)
[2023-07-02] MEDS: ACYCLOVIR 200 MG CAPSULE PO SCH ×2 (08:56→21:25)
[2023-07-02] MEDS: allopurinoL 100 MG TAB PO SCH (08:56)
[2023-07-02] MEDS: CREON-24 CAPSULE PO SCH ×3 (08:56→17:13)
[2023-07-02] MEDS: MULTIVITAMINS/MINERALS THERAP 1 TAB PO SCH (08:56)
[2023-07-02] MEDS: guaiFENesin ER 600 MG TAB PO SCH ×2 (08:57→21:26)
[2023-07-02] MEDS: HYDROXYCHLOROQUINE 200 MG TAB PO SCH (08:57)
[2023-07-02] MEDS: MAGNESIUM OXIDE 400MG TAB (MAG-OX) PO SCH ×2 (08:57→21:26)
[2023-07-02] MEDS: TACROLIMUS 0.5MG CAP PO SCH ×2 (08:58→21:26)
[2023-07-02] MEDS: ENTRESTO 24-26MG TABLET (SACUBITRIL/VALSARTAN) PO SCH ×2 (08:59→21:25)
[2023-07-02] MEDS: DIGOXIN 0.125 MG TAB PO SCH (08:59)
[2023-07-02] MEDS: SODIUM CHLORIDE 0.9% INJ 10 ML SYR IV SCH (08:59)
[2023-07-02] MEDS: INSULIN LISPRO (NovoLOG) PER UNIT SC SCH ×4 (09:00→21:00)
[2023-07-02] MEDS: DARBEPOETIN 100MCG/0.5ML *NON-DIALYSIS* SYRINGE SC SCH ×2 (09:00→12:24)
[2023-07-02] MEDS: FOLIC ACID 1MG TAB PO SCH (09:00)
[2023-07-02] MEDS: METOPROLOL SUCC (TopROL XL) 100MG *XL* TAB PO SCH (09:00)
[2023-07-02 14:00] VITALS: BP 150/78; TEMP 98.4; O2SAT 98
[2023-07-02 20:30] VITALS: BP 144/80; TEMP 98.6; O2SAT 96
[2023-07-02] MEDS: GABAPENTIN 300 MG CAP PO SCH (21:25)
[2023-07-02] MEDS: oxyBUTYnin *DITROPAN XL* 5 MG TABCR PO SCH (21:26)
[2023-07-02] MEDS: MONTELUKAST 10 MG TAB PO SCH (21:26)
[2023-07-02] MEDS: PRAMIPEXOLE (MIRAPEX) 0.125 MG TAB PO SCH (21:27)
[2023-07-02] MEDS: SERTRALINE HCL 50 MG TAB PO SCH (21:27)
[2023-07-03 05:59] VITALS: BP 151/74; TEMP 98.6; O2SAT 95
[2023-07-03 06:25] LABS: BASO % 0.6 % (0.0-1.0); EOS # 1.2 10^3/uL (0.0-0.5); HEMATOCRIT 24.8 % (36.0-47.0); HEMOGLOBIN 7.9 g/dl (12.0-15.5); LYMPH # 1.1 10^3/uL (1.5-5.0); LYMPH % 22.6 % (24.0-44.0); MEAN CORPUSCULAR HEMOGLOBIN 30.2 pg (27.0-33.0); MEAN CORPUSCULAR HGB CONC 31.9 g/dl (32.0-36.5); MEAN CORPUSCULAR VOLUME 94.7 fl (80.0-96.0); MONO # 0.6 10^3/uL (0.0-0.8); MONO % 12.6 % (2.0-8.0); PLATELET COUNT, AUTOMATED 202 10^3/uL (150-450); RED BLOOD COUNT 2.62 10^6/uL (4.00-5.40)
[2023-07-03 06:36] LABS: CALCIUM LEVEL 9.2 MG/DL (8.3-10.6); CREATININE FOR GFR 1.67 MG/DL (0.55-1.30); GLOMERULAR FILTRATION RATE 32.7 (>45); POTASSIUM SERUM 4.2 MMOL/L (3.5-5.1)
[2023-07-03] MEDS: ACETAMINOPHEN TAB 650MG DOSE (2X325MG) PO PRN ×2 (08:14→20:20)
[2023-07-03] MEDS: HYDROXYCHLOROQUINE 200 MG TAB PO SCH (08:14)
[2023-07-03] MEDS: allopurinoL 100 MG TAB PO SCH (08:14)
[2023-07-03] MEDS: MAGNESIUM OXIDE 400MG TAB (MAG-OX) PO SCH ×2 (08:14→20:20)
[2023-07-03] MEDS: INSULIN LISPRO (NovoLOG) PER UNIT SC SCH ×4 (08:14→20:07)
[2023-07-03] MEDS: MULTIVITAMINS/MINERALS THERAP 1 TAB PO SCH (08:14)
[2023-07-03] MEDS: guaiFENesin ER 600 MG TAB PO SCH ×2 (08:14→20:21)
[2023-07-03] MEDS: CREON-24 CAPSULE PO SCH ×3 (08:14→17:08)
[2023-07-03] MEDS: LACTOBACILLUS ACIDOPHILUS CAP (BACID) PO SCH ×3 (08:14→17:08)
[2023-07-03] MEDS: FOLIC ACID 1MG TAB PO SCH (08:15)
[2023-07-03] MEDS: ACYCLOVIR 200 MG CAPSULE PO SCH ×2 (08:15→20:19)
[2023-07-03] MEDS: ENTRESTO 24-26MG TABLET (SACUBITRIL/VALSARTAN) PO SCH ×2 (08:15→20:20)
[2023-07-03] MEDS: APIXABAN 5 MG TAB (ELIQUIS) PO SCH ×2 (08:15→20:21)
[2023-07-03] MEDS: METOPROLOL SUCC (TopROL XL) 100MG *XL* TAB PO SCH (08:17)
[2023-07-03] MEDS: DIGOXIN 0.125 MG TAB PO SCH (08:18)
[2023-07-03] MEDS: BACTRIM 160MG/800MG DS TAB PO SCH (08:19)
[2023-07-03] MEDS: TACROLIMUS 0.5MG CAP PO SCH ×2 (08:20→20:19)
[2023-07-03] MEDS: SODIUM CHLORIDE 0.9% INJ 10 ML SYR IV SCH (08:20)
[2023-07-03 08:23] LABS: EOS % 23.8 % (0.0-3.0)
[2023-07-03 14:00] VITALS: BP 163/81; TEMP 98.1; O2SAT 97
[2023-07-03] MEDS: oxyBUTYnin *DITROPAN XL* 5 MG TABCR PO SCH (20:19)
[2023-07-03] MEDS: PRAMIPEXOLE (MIRAPEX) 0.125 MG TAB PO SCH (20:19)
[2023-07-03] MEDS: MONTELUKAST 10 MG TAB PO SCH (20:20)
[2023-07-03] MEDS: SERTRALINE HCL 50 MG TAB PO SCH (20:20)
[2023-07-03] MEDS: GABAPENTIN 300 MG CAP PO SCH (20:20)
[2023-07-03 20:35] VITALS: BP 158/77; TEMP 98.8; O2SAT 98
[2023-07-04 05:18] VITALS: BP 149/64; TEMP 97.5; O2SAT 97
[2023-07-04 05:47] LABS: BASO # 0.1 10^3/uL (0.0-0.2); BASO % 1.1 % (0.0-1.0); EOS # 1.1 10^3/uL (0.0-0.5); EOS % 19.9 % (0.0-3.0); HEMATOCRIT 26.2 % (36.0-47.0); HEMOGLOBIN 8.4 g/dl (12.0-15.5); LYMPH # 1.1 10^3/uL (1.5-5.0); MEAN CORPUSCULAR HEMOGLOBIN 30.4 pg (27.0-33.0); MEAN CORPUSCULAR HGB CONC 32.1 g/dl (32.0-36.5); MEAN CORPUSCULAR VOLUME 94.9 fl (80.0-96.0); MONO # 0.7 10^3/uL (0.0-0.8); NEUTROPHILS # 2.6 10^3/uL (1.5-8.5); NEUTROPHILS % 46.8 % (36.0-66.0); PLATELET COUNT, AUTOMATED 194 10^3/uL (150-450); RED BLOOD COUNT 2.76 10^6/uL (4.00-5.40); WHITE BLOOD COUNT 5.5 10^3/uL (4.0-10.0)
[2023-07-04 06:13] LABS: CALCIUM LEVEL 9.4 MG/DL (8.3-10.6); CREATININE FOR GFR 1.71 MG/DL (0.55-1.30); GLOMERULAR FILTRATION RATE 31.8 (>45); POTASSIUM SERUM 4.6 MMOL/L (3.5-5.1)
[2023-07-04] MEDS: INSULIN LISPRO (NovoLOG) PER UNIT SC SCH ×4 (07:30→20:11)
[2023-07-04] MEDS: ACYCLOVIR 200 MG CAPSULE PO SCH ×2 (08:28→20:19)
[2023-07-04] MEDS: LACTOBACILLUS ACIDOPHILUS CAP (BACID) PO SCH ×3 (08:28→16:53)
[2023-07-04] MEDS: FOLIC ACID 1MG TAB PO SCH (08:28)
[2023-07-04] MEDS: MULTIVITAMINS/MINERALS THERAP 1 TAB PO SCH (08:28)
[2023-07-04] MEDS: MAGNESIUM OXIDE 400MG TAB (MAG-OX) PO SCH ×2 (08:28→20:20)
[2023-07-04] MEDS: APIXABAN 5 MG TAB (ELIQUIS) PO SCH ×2 (08:28→20:20)
[2023-07-04] MEDS: TACROLIMUS 0.5MG CAP PO SCH ×2 (08:28→20:20)
[2023-07-04] MEDS: guaiFENesin ER 600 MG TAB PO SCH ×2 (08:28→20:20)
[2023-07-04] MEDS: CREON-24 CAPSULE PO SCH ×3 (08:28→16:54)
[2023-07-04] MEDS: HYDROXYCHLOROQUINE 200 MG TAB PO SCH (08:29)
[2023-07-04] MEDS: allopurinoL 100 MG TAB PO SCH (08:29)
[2023-07-04] MEDS: ENTRESTO 24-26MG TABLET (SACUBITRIL/VALSARTAN) PO SCH ×2 (08:31→20:20)
[2023-07-04] MEDS: METOPROLOL SUCC (TopROL XL) 100MG *XL* TAB PO SCH (08:31)
[2023-07-04] MEDS: DIGOXIN 0.125 MG TAB PO SCH (08:32)
[2023-07-04] MEDS: SODIUM CHLORIDE 0.9% INJ 10 ML SYR IV SCH (08:32)
[2023-07-04] MEDS ORDERED: FUROSEMIDE 40 MG TAB PO SCH (09:00)
[2023-07-04] MEDS: ACETAMINOPHEN TAB 650MG DOSE (2X325MG) PO PRN (11:44)
[2023-07-04] MEDS ORDERED: ACETAMINOPHEN 325 MG TAB PO ONE (14:05)
[2023-07-04 14:30] VITALS: BP 130/64; TEMP 98.2; O2SAT 99
[2023-07-04] MEDS: PROMETHAZINE 25 MG TAB PO PRN (15:33)
[2023-07-04 19:18] VITALS: BP 129/64; TEMP 98.1; O2SAT 98
[2023-07-04] MEDS: PRAMIPEXOLE (MIRAPEX) 0.125 MG TAB PO SCH (20:20)
[2023-07-04] MEDS: SERTRALINE HCL 50 MG TAB PO SCH (20:20)
[2023-07-04] MEDS: GABAPENTIN 300 MG CAP PO SCH (20:20)
[2023-07-04] MEDS: MONTELUKAST 10 MG TAB PO SCH (20:20)
[2023-07-04] MEDS: oxyBUTYnin *DITROPAN XL* 5 MG TABCR PO SCH (20:20)
[2023-07-04] MEDS: ACETAMINOPHEN 325 MG TAB PO PRN (20:21)
[2023-07-04] MEDS ORDERED: FIORICET TAB PO ONE (23:00)
[2023-07-05 06:24] LABS: BASO # 0.1 10^3/uL (0.0-0.2); BASO % 1.1 % (0.0-1.0); HEMATOCRIT 26.6 % (36.0-47.0); HEMOGLOBIN 8.3 g/dl (12.0-15.5); LYMPH # 1.1 10^3/uL (1.5-5.0); MEAN CORPUSCULAR HEMOGLOBIN 29.9 pg (27.0-33.0); MEAN CORPUSCULAR HGB CONC 31.2 g/dl (32.0-36.5); MEAN CORPUSCULAR VOLUME 95.7 fl (80.0-96.0); MONO # 0.8 10^3/uL (0.0-0.8); MONO % 16.4 % (2.0-8.0); NEUTROPHILS # 1.7 10^3/uL (1.5-8.5); PLATELET COUNT, AUTOMATED 193 10^3/uL (150-450); RED BLOOD COUNT 2.78 10^6/uL (4.00-5.40); WHITE BLOOD COUNT 4.6 10^3/uL (4.0-10.0)
[2023-07-05 06:27] VITALS: BP 130/62; TEMP 98.8; O2SAT 95
[2023-07-05 06:53] LABS: CALCIUM LEVEL 9.4 MG/DL (8.3-10.6); CREATININE FOR GFR 1.91 MG/DL (0.55-1.30); POTASSIUM SERUM 4.6 MMOL/L (3.5-5.1)
[2023-07-05] MEDS: INSULIN LISPRO (NovoLOG) PER UNIT SC SCH ×4 (07:30→21:00)
[2023-07-05 07:33] LABS: EOS % 22.3 % (0.0-3.0)
[2023-07-05] MEDS: METOPROLOL SUCC (TopROL XL) 100MG *XL* TAB PO SCH (08:07)
[2023-07-05] MEDS: DIGOXIN 0.125 MG TAB PO SCH (08:07)
[2023-07-05] MEDS: HYDROXYCHLOROQUINE 200 MG TAB PO SCH (08:08)
[2023-07-05] MEDS: LACTOBACILLUS ACIDOPHILUS CAP (BACID) PO SCH ×3 (08:08→17:54)
[2023-07-05] MEDS: TACROLIMUS 0.5MG CAP PO SCH ×2 (08:08→21:06)
[2023-07-05] MEDS: MAGNESIUM OXIDE 400MG TAB (MAG-OX) PO SCH ×2 (08:08→20:36)
[2023-07-05] MEDS: ACYCLOVIR 200 MG CAPSULE PO SCH ×2 (08:08→20:36)
[2023-07-05] MEDS: APIXABAN 5 MG TAB (ELIQUIS) PO SCH ×2 (08:08→20:35)
[2023-07-05] MEDS: guaiFENesin ER 600 MG TAB PO SCH ×2 (08:08→20:36)
[2023-07-05] MEDS: MULTIVITAMINS/MINERALS THERAP 1 TAB PO SCH (08:08)
[2023-07-05] MEDS: FOLIC ACID 1MG TAB PO SCH (08:08)
[2023-07-05] MEDS: CREON-24 CAPSULE PO SCH ×3 (08:08→17:54)
[2023-07-05] MEDS: allopurinoL 100 MG TAB PO SCH (08:09)
[2023-07-05] MEDS: SODIUM CHLORIDE 0.9% INJ 10 ML SYR IV SCH (08:09)
[2023-07-05] MEDS: ENTRESTO 24-26MG TABLET (SACUBITRIL/VALSARTAN) PO SCH ×2 (08:10→20:35)
[2023-07-05] MEDS: BACTRIM 160MG/800MG DS TAB PO SCH (08:17)
[2023-07-05] MEDS ORDERED: FIORICET TAB PO ONE (10:35)
[2023-07-05] MEDS: PRAMIPEXOLE (MIRAPEX) 0.125 MG TAB PO SCH (20:35)
[2023-07-05] MEDS: GABAPENTIN 300 MG CAP PO SCH (20:36)
[2023-07-05] MEDS: MONTELUKAST 10 MG TAB PO SCH (20:36)
[2023-07-05] MEDS: SERTRALINE HCL 50 MG TAB PO SCH (20:36)
[2023-07-05] MEDS: oxyBUTYnin *DITROPAN XL* 5 MG TABCR PO SCH (20:37)
[2023-07-05] MEDS: ACETAMINOPHEN 325 MG TAB PO PRN (22:59)
[2023-07-06 06:00] VITALS: BP 148/64; TEMP 98.1; O2SAT 93
[2023-07-06 06:45] LABS: BASO % 0.9 % (0.0-1.0); EOS # 0.8 10^3/uL (0.0-0.5); EOS % 17.4 % (0.0-3.0); HEMATOCRIT 25.1 % (36.0-47.0); HEMOGLOBIN 7.9 g/dl (12.0-15.5); LYMPH # 1.1 10^3/uL (1.5-5.0); MEAN CORPUSCULAR HEMOGLOBIN 30.2 pg (27.0-33.0); MEAN CORPUSCULAR HGB CONC 31.5 g/dl (32.0-36.5); MEAN CORPUSCULAR VOLUME 95.8 fl (80.0-96.0); MONO # 0.6 10^3/uL (0.0-0.8); MONO % 13.7 % (2.0-8.0); NEUTROPHILS # 1.8 10^3/uL (1.5-8.5); NEUTROPHILS % 41.8 % (36.0-66.0); PLATELET COUNT, AUTOMATED 196 10^3/uL (150-450); RED BLOOD COUNT 2.62 10^6/uL (4.00-5.40); WHITE BLOOD COUNT 4.4 10^3/uL (4.0-10.0)
[2023-07-06 07:15] LABS: CREATININE FOR GFR 2.17 MG/DL (0.55-1.30); GLOMERULAR FILTRATION RATE 24.2 (>45); POTASSIUM SERUM 4.7 MMOL/L (3.5-5.1)
[2023-07-06] MEDS: INSULIN LISPRO (NovoLOG) PER UNIT SC SCH ×4 (07:30→21:00)
[2023-07-06] MEDS: ACETAMINOPHEN 325 MG TAB PO PRN ×3 (09:42→22:21)
[2023-07-06] MEDS: LACTOBACILLUS ACIDOPHILUS CAP (BACID) PO SCH ×3 (09:58→17:37)
[2023-07-06] MEDS: HYDROXYCHLOROQUINE 200 MG TAB PO SCH (09:58)
[2023-07-06] MEDS: guaiFENesin ER 600 MG TAB PO SCH ×2 (09:59→19:50)
[2023-07-06] MEDS: allopurinoL 100 MG TAB PO SCH (09:59)
[2023-07-06] MEDS: TACROLIMUS 0.5MG CAP PO SCH ×2 (09:59→19:51)
[2023-07-06] MEDS: CREON-24 CAPSULE PO SCH ×3 (09:59→17:37)
[2023-07-06] MEDS: MULTIVITAMINS/MINERALS THERAP 1 TAB PO SCH (09:59)
[2023-07-06] MEDS: MAGNESIUM OXIDE 400MG TAB (MAG-OX) PO SCH ×2 (10:00→19:50)
[2023-07-06] MEDS: METOPROLOL SUCC (TopROL XL) 100MG *XL* TAB PO SCH (10:00)
[2023-07-06] MEDS: APIXABAN 5 MG TAB (ELIQUIS) PO SCH ×2 (10:01→19:51)
[2023-07-06] MEDS: FOLIC ACID 1MG TAB PO SCH (10:01)
[2023-07-06] MEDS: DIGOXIN 0.125 MG TAB PO SCH (10:01)
[2023-07-06] MEDS: SODIUM CHLORIDE 0.9% INJ 10 ML SYR IV SCH (10:02)
[2023-07-06] MEDS: PRAMIPEXOLE (MIRAPEX) 0.125 MG TAB PO SCH (19:49)
[2023-07-06] MEDS: GABAPENTIN 300 MG CAP PO SCH (19:50)
[2023-07-06] MEDS: MONTELUKAST 10 MG TAB PO SCH (19:50)
[2023-07-06] MEDS: SERTRALINE HCL 50 MG TAB PO SCH (19:50)
[2023-07-06] MEDS: oxyBUTYnin *DITROPAN XL* 5 MG TABCR PO SCH (19:50)
[2023-07-06] MEDS ORDERED: FIORICET TAB PO ONE (23:00)
[2023-07-07 06:00] VITALS: BP 173/71; TEMP 98.8; O2SAT 98
[2023-07-07 06:48] VITALS: O2SAT 95
[2023-07-07 06:57] LABS: CALCIUM LEVEL 9.3 MG/DL (8.3-10.6); CREATININE FOR GFR 1.9 MG/DL (0.55-1.30); GLOMERULAR FILTRATION RATE 28.2 (>45); POTASSIUM SERUM 4.6 MMOL/L (3.5-5.1)
[2023-07-07] MEDS: INSULIN LISPRO (NovoLOG) PER UNIT SC SCH ×3 (07:16→17:30)
[2023-07-07] MEDS: allopurinoL 100 MG TAB PO SCH (09:02)
[2023-07-07] MEDS: MAGNESIUM OXIDE 400MG TAB (MAG-OX) PO SCH (09:02)
[2023-07-07] MEDS: MULTIVITAMINS/MINERALS THERAP 1 TAB PO SCH (09:02)
[2023-07-07] MEDS: LACTOBACILLUS ACIDOPHILUS CAP (BACID) PO SCH ×3 (09:03→18:00)
[2023-07-07] MEDS: APIXABAN 5 MG TAB (ELIQUIS) PO SCH (09:03)
[2023-07-07] MEDS: guaiFENesin ER 600 MG TAB PO SCH (09:03)
[2023-07-07] MEDS: TACROLIMUS 0.5MG CAP PO SCH (09:03)
[2023-07-07] MEDS: CREON-24 CAPSULE PO SCH ×3 (09:03→18:00)
[2023-07-07 09:04] VITALS: BP 143/68
[2023-07-07] MEDS: DIGOXIN 0.125 MG TAB PO SCH (09:04)
[2023-07-07] MEDS: METOPROLOL SUCC (TopROL XL) 100MG *XL* TAB PO SCH (09:04)
[2023-07-07] MEDS: HYDROXYCHLOROQUINE 200 MG TAB PO SCH (09:04)
[2023-07-07] MEDS: FOLIC ACID 1MG TAB PO SCH (09:04)
[2023-07-07] MEDS: SODIUM CHLORIDE 0.9% INJ 10 ML SYR IV SCH (09:05)
[2023-07-07] MEDS ORDERED: ELIQ5TAB PO (10:55)
[2023-07-07] MEDS ORDERED: METO1TAB33 PO (10:55)
[2023-07-07] MEDS ORDERED: DIGO0.123 PO (10:55)
[2023-07-07] MEDS: ACETAMINOPHEN 325 MG TAB PO PRN (13:20)
[2023-07-08] MEDS ORDERED: TACROLIMUS 1MG CAP PO SCH (09:00)
== END 2023-07-07 18:35 | disposition home health service (06) | DRG 291 ==
LOC: M ED 19:25 → EDBD 19:25 → M ED INP 23:36 → ENRESERV 06-22 00:12 → M PCU 06-22 00:45 → M MSPAV 06-23 15:16 → UNDODISIN 06-23 15:27 → M MSPAV 06-26 13:34
PROVIDERS: ADMIT Family Medicine; ATTEND Family Medicine
PROC: B246ZZZ Ultrasonography of Right and Left Heart (ICD-10-PCS; principal; 2023-06-22)
PROC: B246ZZ4 Ultrasonography of Right and Left Heart, Transesophageal (ICD-10-PCS; 2023-06-27)
DX: I13.0 Hypertensive heart and chronic kidney disease with heart failure and stage 1 through stage 4 chronic kidney disease, or unspecified chronic kidney disease (principal); I50.23 Acute on chronic systolic (congestive) heart failure; D75.81 Myelofibrosis; D89.813 Graft-versus-host disease, unspecified; Z94.84 Stem cells transplant status; N17.9 Acute kidney failure, unspecified; K86.1 Other chronic pancreatitis; N39.0 Urinary tract infection, site not specified; M48.56XA Collapsed vertebra, not elsewhere classified, lumbar region, initial encounter for fracture; I31.39 Other pericardial effusion (noninflammatory); N18.30 Chronic kidney disease, stage 3 unspecified; I48.0 Paroxysmal atrial fibrillation; M10.9 Gout, unspecified; E11.22 Type 2 diabetes mellitus with diabetic chronic kidney disease; K21.9 Gastro-esophageal reflux disease without esophagitis; M32.9 Systemic lupus erythematosus, unspecified; G47.33 Obstructive sleep apnea (adult) (pediatric); G25.81 Restless legs syndrome; R91.1 Solitary pulmonary nodule; M79.7 Fibromyalgia; F32.A Depression, unspecified; F41.9 Anxiety disorder, unspecified; D50.9 Iron deficiency anemia, unspecified; E86.0 Dehydration; L89.152 Pressure ulcer of sacral region, stage 2; E83.42 Hypomagnesemia; D63.8 Anemia in other chronic diseases classified elsewhere; E11.649 Type 2 diabetes mellitus with hypoglycemia without coma; J42 Unspecified chronic bronchitis; I27.20 Pulmonary hypertension, unspecified; N20.0 Calculus of kidney; M54.16 Radiculopathy, lumbar region; R53.1 Weakness; N32.81 Overactive bladder; Z88.0 Allergy status to penicillin; Z88.1 Allergy status to other antibiotic agents; Z88.8 Allergy status to other drugs, medicaments and biological substances; Z91.041 Radiographic dye allergy status; Z91.048 Other nonmedicinal substance allergy status; Z79.4 Long term (current) use of insulin; Z79.899 Other long term (current) drug therapy

== ENCOUNTER 2023-07-13 17:36 | Emergency (ER) | payer MEDICARE, OTHER ==
[~2023-07-13] VITALS: Ht 165.1 cm; Wt 65.5 kg
[~2023-07-13 17:36] MED LIST changes: +BENZ-18 PO; +CULT10CA4 PO; +DIGO0.123 PO; +DILT240C47 PO; +MAGN250T7 PO; +METO1TAB33 PO; +MUCI600T31 PO; -SODIUM CHLORIDE 0.9% INJ 10 ML SYR IV SCH; +TETR1CAP2 PO; +VITA200035 PO
[2023-07-14 01:16] LABS: ALBUMIN 3.2 G/DL (3.2-5.2); ALKALINE PHOSPHATASE 118 U/L (46-116); ALT/SGPT 14 U/L (7.0-40); AST/SGOT 17 U/L (<34); BILIRUBIN,DIRECT 0.1 MG/DL (<0.4); BILIRUBIN,TOTAL 0.3 MG/DL (0.3-1.2); BLOOD UREA NITROGEN 40 MG/DL (9-23); CALCIUM LEVEL 9.9 MG/DL (8.3-10.6); CARBON DIOXIDE LEVEL 25 MMOL/L (20-31); CHLORIDE LEVEL 103 MMOL/L (98-107); CK-MB VALUE MASS < 1.0 NG/ML (<3.6); CPK CREATINE PHOSPHOKINASE 27 U/L (34-145); CREATININE FOR GFR 1.89 MG/DL (0.55-1.30); GLOMERULAR FILTRATION RATE 28.3 (>45); GLUCOSE, FASTING 84 MG/DL (74-106); POTASSIUM SERUM 4.5 MMOL/L (3.5-5.1); SODIUM LEVEL 134 MMOL/L (136-145); TOTAL PROTEIN 5.9 G/DL (5.7-8.2)
[2023-07-14 01:17] LABS: INR 1.66; PROTHROMBIN TIME 19.2 SECONDS (12.5-14.5)
[2023-07-14 01:18] LABS: PARTIAL THROMBOPLASTIN TIME 49.4 SECONDS (24.8-34.2)
[2023-07-14] MEDS ORDERED: IPRATROPIUM 0.5MG/ALBUTEROL 2.5MG INH SOL UD 3ML (DUONEB) NEB ONE (01:25)
[2023-07-14 01:27] LABS: DIGOXIN LEVEL 1.9 NG/ML (0.8-2.0)
[2023-07-14 02:53] LABS: BASO # 0.1 10^3/uL (0.0-0.2); BASO % 0.7 % (0.0-1.0); EOS # 2.1 10^3/uL (0.0-0.5); HEMATOCRIT 30.4 % (36.0-47.0); HEMOGLOBIN 9.5 g/dl (12.0-15.5); LYMPH % 20.7 % (24.0-44.0); MEAN CORPUSCULAR HEMOGLOBIN 30.8 pg (27.0-33.0); MEAN CORPUSCULAR HGB CONC 31.3 g/dl (32.0-36.5); MEAN CORPUSCULAR VOLUME 98.7 fl (80.0-96.0); MONO # 1.3 10^3/uL (0.0-0.8); NEUTROPHILS # 4.3 10^3/uL (1.5-8.5); NEUTROPHILS % 44.2 % (36.0-66.0); PLATELET COUNT, AUTOMATED 222 10^3/uL (150-450); RED BLOOD COUNT 3.08 10^6/uL (4.00-5.40); WHITE BLOOD COUNT 9.8 10^3/uL (4.0-10.0)
[2023-07-14 03:27] LABS: CK-MB VALUE MASS < 1.0 NG/ML (<3.6)
[2023-07-14 03:38] LABS: CPK CREATINE PHOSPHOKINASE 30 U/L (34-145); MB/CK RELATIVE INDEX 3.33 (< OR =4)
[2023-07-14] MEDS ORDERED: predniSONE 20 MG TAB PO ONE (04:15)
[2023-07-14] MEDS ORDERED: ALBUTEROL 90 MCG/ACT 8GM HFA INHALER INH ONE (04:15)
[2023-07-14] MEDS ORDERED: PRED20TA PO (04:17)
[2023-07-14 04:31] VITALS: O2SAT 97
[2023-07-14 04:45] VITALS: BP 135/65; TEMP 98.7
== END 2023-07-14 05:14 | disposition home or self-care (01) ==
LOC: M ED 17:36
DX: J20.9 Acute bronchitis, unspecified (principal); B34.8 Other viral infections of unspecified site; I13.2 Hypertensive heart and chronic kidney disease with heart failure and with stage 5 chronic kidney disease, or end stage renal disease; I50.9 Heart failure, unspecified; E11.9 Type 2 diabetes mellitus without complications; I48.91 Unspecified atrial fibrillation; M79.7 Fibromyalgia; G25.81 Restless legs syndrome; Z94.84 Stem cells transplant status; Z88.1 Allergy status to other antibiotic agents; Z88.8 Allergy status to other drugs, medicaments and biological substances; Z91.041 Radiographic dye allergy status
CPT/HCPCS: 36415; 71046; 80048; 80076; 80162; 82550; 82553; 83605; 83880; 84484; 85025; 85610; 85730; 87040; 87486; 87581; 87633; 87798; 93005; 93041; 94640; 94664; 94760; 99285; J7512

== ENCOUNTER 2023-07-15 14:19 | Emergency (ER) | payer MEDICARE, OTHER ==
[~2023-07-15] VITALS: Ht 165.1 cm; Wt 65.9 kg
[~2023-07-15 14:19] MED LIST changes: +PRED20TA PO
[2023-07-15 14:22] VITALS: TEMP 98
[2023-07-15] MEDS ORDERED: ASPIRIN 81MG CHEW TABLET PO ONE (15:30)
[2023-07-15] MEDS: NITROGLYCERIN 0.4MG SUBL TABLET SL PRN ×2 (15:49→16:29)
[2023-07-15 15:57] LABS: BASO % 0.2 % (0.0-1.0); EOS % 0.6 % (0.0-3.0); HEMATOCRIT 26.3 % (36.0-47.0); HEMOGLOBIN 8.5 g/dl (12.0-15.5); LYMPH # 1.3 10^3/uL (1.5-5.0); LYMPH % 26.5 % (24.0-44.0); MEAN CORPUSCULAR HEMOGLOBIN 31.6 pg (27.0-33.0); MEAN CORPUSCULAR HGB CONC 32.3 g/dl (32.0-36.5); MEAN CORPUSCULAR VOLUME 97.8 fl (80.0-96.0); MONO # 0.6 10^3/uL (0.0-0.8); MONO % 12.1 % (2.0-8.0); PLATELET COUNT, AUTOMATED 186 10^3/uL (150-450); RED BLOOD COUNT 2.69 10^6/uL (4.00-5.40); WHITE BLOOD COUNT 5.1 10^3/uL (4.0-10.0)
[2023-07-15 16:28] LABS: MB/CK RELATIVE INDEX 12.5 (< OR =4)
[2023-07-15 16:29] VITALS: BP 186/86
[2023-07-15 16:30] LABS: ALBUMIN 3.3 G/DL (3.2-5.2); BILIRUBIN,DIRECT 0.1 MG/DL (<0.4); BILIRUBIN,TOTAL 0.3 MG/DL (0.3-1.2); CALCIUM LEVEL 9.4 MG/DL (8.3-10.6); CREATININE FOR GFR 2.01 MG/DL (0.55-1.30); GLOMERULAR FILTRATION RATE 26.4 (>45); INR 1.97; POTASSIUM SERUM 4.6 MMOL/L (3.5-5.1); PROTHROMBIN TIME 21.9 SECONDS (12.5-14.5); TOTAL PROTEIN 5.6 G/DL (5.7-8.2)
[2023-07-15 16:31] LABS: PARTIAL THROMBOPLASTIN TIME 43.5 SECONDS (24.8-34.2)
[2023-07-15] MEDS ORDERED: METOPROLOL TART 25 MG TABLET PO ONE (17:00)
[2023-07-15 18:21] LABS: CK-MB VALUE MASS 3.7 NG/ML (<3.6)
[2023-07-15 18:22] LABS: MB/CK RELATIVE INDEX 23.12 (< OR =4)
[2023-07-15 18:45] VITALS: O2SAT 95
[2023-07-15 19:05] VITALS: BP 150/80
[2023-07-15 19:50] LABS: CK-MB VALUE MASS 3.3 NG/ML (<3.6)
== END 2023-07-15 20:56 | disposition home or self-care (01) ==
LOC: M ED 14:19
DX: I12.9 Hypertensive chronic kidney disease with stage 1 through stage 4 chronic kidney disease, or unspecified chronic kidney disease (principal); I48.91 Unspecified atrial fibrillation; E11.9 Type 2 diabetes mellitus without complications; M10.9 Gout, unspecified; Z87.442 Personal history of urinary calculi; K21.9 Gastro-esophageal reflux disease without esophagitis; M32.9 Systemic lupus erythematosus, unspecified; G47.33 Obstructive sleep apnea (adult) (pediatric); Z86.73 Personal history of transient ischemic attack (TIA), and cerebral infarction without residual deficits; M79.7 Fibromyalgia; F41.9 Anxiety disorder, unspecified; F32.A Depression, unspecified; D75.81 Myelofibrosis; G25.81 Restless legs syndrome; R91.1 Solitary pulmonary nodule; Z91.041 Radiographic dye allergy status; Z88.8 Allergy status to other drugs, medicaments and biological substances; Z91.018 Allergy to other foods; Z79.01 Long term (current) use of anticoagulants; Z79.899 Other long term (current) drug therapy; Z79.52 Long term (current) use of systemic steroids; Z79.4 Long term (current) use of insulin

== ENCOUNTER → 2023-09-08 | Outpatient (REF) | payer MEDICARE, OTHER ==
[~2023-09-08] MED LIST changes: +ALBU2.5V10 INH; +ALBU8.5H INH; +AMLO2.5T3 PO; +BACTDSTA PO; +CELL500T PO; +CYCL10TA20 PO; +DELS30LI8 PO; +FURO40TA2 PO; +METO1TAB7 PO; -OXYB5TAB10 PO; +OXYB5TAB11 PO; +POTA-136 PO; +[UNRECOGNIZED DRUG - CODE] PO
[2023-09-08 18:30] LABS: APPEARANCE, URINE CLOUDY (CLEAR); BACTERIA, URINE AUTO 1+ (NEGATIVE); BILIRUBIN, URINE AUTO NEGATIVE (NEGATIVE); BLOOD, URINE BLOOD 2+ (NEGATIVE); COLOR, URINE YELLOW (YELLOW); GLUCOSE, URINE (UA) AUTO NEGATIVE (NEGATIVE); KETONE, URINE AUTO NEGATIVE (NEGATIVE); LEUKOCYTE ESTERASE, URINE AUTO 3+ (NEGATIVE); NITRITE, URINE AUTO NEGATIVE (NEGATIVE); PROTEIN, URINE AUTO 2+ mg/dL (NEGATIVE); RBC, URINE AUTO 23 /HPF (0-3); SQUAMOUS EPITHELIAL CELL UR AU 1 /HPF (0-6); UROBILINOGEN, URINE AUTO 0.2 mg/dL (0.0-2.0); WBC, URINE AUTO TNTC /HPF (0-3)
== END ==
LOC: EEVIPCON 16:48 → M LAB REF 16:48
PROVIDERS: ATTEND Internal Medicine Nephrology
DX: R30.0 Dysuria (principal)

== ENCOUNTER → 2023-09-11 | Outpatient (REF) | payer MEDICARE, OTHER ==
[2023-09-11 13:56] LABS: BASO % 0.2 % (0.0-1.0); EOS # 0.2 10^3/uL (0.0-0.5); EOS % 3.5 % (0.0-3.0); HEMATOCRIT 21.2 % (36.0-47.0); LYMPH # 1.7 10^3/uL (1.5-5.0); LYMPH % 34.5 % (24.0-44.0); MEAN CORPUSCULAR HEMOGLOBIN 33.8 pg (27.0-33.0); MEAN CORPUSCULAR HGB CONC 32.5 g/dl (32.0-36.5); MEAN CORPUSCULAR VOLUME 103.9 fl (80.0-96.0); MONO # 0.6 10^3/uL (0.0-0.8); MONO % 12.4 % (2.0-8.0); NEUTROPHILS # 2.4 10^3/uL (1.5-8.5); NEUTROPHILS % 49.2 % (36.0-66.0); PLATELET COUNT, AUTOMATED 183 10^3/uL (150-450); RED BLOOD COUNT 2.04 10^6/uL (4.00-5.40); WHITE BLOOD COUNT 4.8 10^3/uL (4.0-10.0)
[2023-09-11 14:14] LABS: HEMOGLOBIN 6.9 g/dl (12.0-15.5)
[2023-09-11 14:25] LABS: ALBUMIN 3.3 G/DL (3.2-5.2); BILIRUBIN,TOTAL 0.4 MG/DL (0.3-1.2); CALCIUM LEVEL 8.9 MG/DL (8.3-10.6); CREATININE FOR GFR 1.78 MG/DL (0.55-1.30); GLOMERULAR FILTRATION RATE 30.4 (>45); POTASSIUM SERUM 3.7 MMOL/L (3.5-5.1); TOTAL PROTEIN 5.5 G/DL (5.7-8.2)
== END ==
LOC: M LAB REF 12:46
PROVIDERS: ATTEND Internal Medicine
DX: Z94.81 Bone marrow transplant status (principal); D89.811 Chronic graft-versus-host disease

== ENCOUNTER 2023-09-14 12:20 | Inpatient (IN) | payer MEDICARE, OTHER ==
[~2023-09-14] VITALS: Ht 165.1 cm; Wt 64.0 kg
[2023-09-14] MEDS ORDERED: AMOX500T2 PO ×2 (13:10→23:24)
[2023-09-14 17:25] LABS: BASO % 0.2 % (0.0-1.0); EOS # 0.2 10^3/uL (0.0-0.5); EOS % 2.9 % (0.0-3.0); HEMATOCRIT 23.1 % (36.0-47.0); HEMOGLOBIN 7.7 g/dl (12.0-15.5); LYMPH # 2.4 10^3/uL (1.5-5.0); MEAN CORPUSCULAR HEMOGLOBIN 34.4 pg (27.0-33.0); MEAN CORPUSCULAR HGB CONC 33.3 g/dl (32.0-36.5); MEAN CORPUSCULAR VOLUME 103.1 fl (80.0-96.0); MONO # 0.7 10^3/uL (0.0-0.8); MONO % 12.6 % (2.0-8.0); NEUTROPHILS % 38.1 % (36.0-66.0); PLATELET COUNT, AUTOMATED 197 10^3/uL (150-450); RED BLOOD COUNT 2.24 10^6/uL (4.00-5.40); WHITE BLOOD COUNT 5.2 10^3/uL (4.0-10.0)
[2023-09-14 17:48] LABS: LIPASE 32 U/L (12-53)
[2023-09-14 17:51] LABS: ALBUMIN 3.7 G/DL (3.2-5.2); ALKALINE PHOSPHATASE 168 U/L (46-116); ALT/SGPT 60 U/L (7.0-40); AST/SGOT 53 U/L (<34); BILIRUBIN,DIRECT 0.2 MG/DL (<0.4); BILIRUBIN,TOTAL 0.5 MG/DL (0.3-1.2); TOTAL PROTEIN 6.2 G/DL (5.7-8.2)
[2023-09-14] MEDS ORDERED: CEFEPIME HCL 1 GM in D5W MINI-BAG PLUS 50 ML IV ONE (19:15)
[2023-09-14] MEDS ORDERED: ACETAMINOPHEN *IV* 1,000 MG in IV 1 EA IV ONE (20:00)
[2023-09-14] MEDS ORDERED: ACETAMINOPHEN TAB 650MG DOSE (2X325MG) PO PRN (22:20)
[2023-09-14 22:31] LABS: RSV AMPLIFICATION NEGATIVE (NEGATIVE)
[2023-09-14 23:16] LABS: IRON (FE) 101 UG/DL (50-170); PERCENT SATURATION 31.3 % (13.2-45.0); TOTAL IRON BINDING CAPACITY 323 UG/DL (250-425)
[2023-09-14 23:18] LABS: VITAMIN B12 LEVEL 713 PG/ML (211-911)
[2023-09-14] MEDS ORDERED: JAKA5TAB PO (23:24)
[2023-09-14] MEDS ORDERED: CULTCAP2 PO (23:24)
[2023-09-14] MEDS ORDERED: METO1TAB7 PO (23:24)
[2023-09-14] MEDS ORDERED: DELS30LI8 PO (23:24)
[2023-09-14] MEDS ORDERED: POTA-150 PO (23:24)
[2023-09-14] MEDS ORDERED: TORS20TA2 PO (23:24)
[2023-09-14] MEDS ORDERED: ERYT200S17 PO (23:24)
[2023-09-14] MEDS ORDERED: HYDR200T46 PO (23:24)
[2023-09-14] MEDS ORDERED: AMLO1TAB25 PO (23:24)
[2023-09-14] MEDS ORDERED: MED REC IN PROGRESS XX SCH (23:25)
[2023-09-14] MEDS ORDERED: DEXTROMETHORPHAN 60MG/10ML SUSP 90ML BTL(DELSYM) PO PRN (23:35)
[2023-09-14] MEDS ORDERED: ALBUTEROL SULFATE 2.5MG/0.5ML INH NEB SOLN INH PRN (23:35)
[2023-09-14] MEDS ORDERED: GLUCOSE 4GM CHEW TABLET PO PRN (23:35)
[2023-09-14] MEDS ORDERED: DEXTROSE 50% 50ML SYRINGE IV PRN (23:35)
[2023-09-14] MEDS ORDERED: guaiFENesin ER TABLET 600 MG TAB PO PRN (23:35)
[2023-09-14] MEDS ORDERED: GLUCAGON INJ 1MG VIAL SC PRN (23:35)
[2023-09-14] MEDS ORDERED: PRAMIPEXOLE (MIRAPEX) 0.125 MG TAB PO PRN (23:35)
[2023-09-14] MEDS ORDERED: BENZONATATE 100MG CAPSULE PO PRN (23:35)
[2023-09-14] MEDS: LR 1,000 ML IV SCH (23:46)
[2023-09-14] MEDS: MEROPENEM INJ 1 GM in IV 1 EA IV SCH (23:46)
[2023-09-14 23:50] LABS: FOLATE > 24.0 NG/ML (>5.4)
[2023-09-15] VITALS (7 sets, daily range): BP systolic 101–140; BP diastolic 64–78; TEMP 97.7–98.9; O2SAT 92–98
[2023-09-15] MEDS: INSULIN LISPRO (NovoLOG) PER UNIT SC SCH ×5 (00:32→21:00)
[2023-09-15] MEDS: PERCOCET 5MG/325MG TAB PO PRN ×3 (03:02→21:48)
[2023-09-15 06:26] LABS: MEAN CORPUSCULAR HEMOGLOBIN 34.1 pg (27.0-33.0); MEAN CORPUSCULAR VOLUME 103.3 fl (80.0-96.0); PLATELET COUNT, AUTOMATED 154 10^3/uL (150-450); RED BLOOD COUNT 1.82 10^6/uL (4.00-5.40); WHITE BLOOD COUNT 3.3 10^3/uL (4.0-10.0)
[2023-09-15 06:37] LABS: HEMATOCRIT 18.8 % (36.0-47.0); HEMOGLOBIN 6.2 g/dl (12.0-15.5)
[2023-09-15 06:56] LABS: CALCIUM LEVEL 8.5 MG/DL (8.3-10.6); CREATININE FOR GFR 1.93 MG/DL (0.55-1.30); GLOMERULAR FILTRATION RATE 27.7 (>45); MAGNESIUM LEVEL 1.8 MG/DL (1.8-2.4); POTASSIUM SERUM 3.3 MMOL/L (3.5-5.1)
[2023-09-15 07:07] LABS: PROCALCITONIN 0.15 ng/ml
[2023-09-15] MEDS ORDERED: BACTRIM 160MG/800MG DS TAB PO SCH (09:00)
[2023-09-15] MEDS: METOPROLOL SUCC (TopROL XL) 50MG **XL** TAB PO SCH (09:00)
[2023-09-15] MEDS: FOLIC ACID 1MG TAB PO SCH (09:19)
[2023-09-15] MEDS: LR 1,000 ML IV SCH (09:19)
[2023-09-15] MEDS: LACTOBACILLUS ACIDOPHILUS CAP (BACID) PO SCH (09:19)
[2023-09-15] MEDS: POTASSIUM CHLORIDE 10MEQ SR TABLET PO SCH ×2 (09:20→21:49)
[2023-09-15] MEDS: HYDROXYCHLOROQUINE 200 MG TAB PO SCH (09:22)
[2023-09-15] MEDS: APIXABAN 5 MG TAB (ELIQUIS) PO SCH ×2 (09:22→21:49)
[2023-09-15] MEDS: DIGOXIN 0.0625MG PER 1/2TABLET PO SCH (09:23)
[2023-09-15] MEDS: ACYCLOVIR 200 MG CAPSULE PO SCH ×2 (09:25→21:48)
[2023-09-15] MEDS: allopurinoL 100 MG TAB PO SCH (09:26)
[2023-09-15] MEDS: TORSEMIDE 20 MG TAB PO SCH (09:28)
[2023-09-15] MEDS: MEROPENEM INJ 1 GM in IV 1 EA IV SCH (12:38)
[2023-09-15] MEDS ORDERED: FLUZONE HIGH DOSE(65YR UP)QUAD/PF 240MCG/0.7ML SYRINGE IM.IMMUN ONE (15:00)
[2023-09-15] MEDS: GABAPENTIN 300 MG CAP PO SCH (21:48)
[2023-09-15] MEDS: MONTELUKAST 10 MG TAB PO SCH (21:49)
[2023-09-15] MEDS: SERTRALINE HCL 50 MG TAB PO SCH (21:49)
[2023-09-15] MEDS: oxyBUTYnin *DITROPAN XL* 5 MG TABCR PO SCH (21:49)
[2023-09-16] VITALS (9 sets, daily range): BP systolic 114–142; BP diastolic 57–80; TEMP 98.4–99.5; O2SAT 92–98
[2023-09-16] MEDS ORDERED: UNRESOLVED PATIENT OWN MED ORDER XX SCH (00:01)
[2023-09-16] MEDS: PIPERACILLIN/TAZOBACTAM SOD 3.375 GM in D5W MINI-BAG PLUS 50 ML IV SCH ×3 (00:12→12:02)
[2023-09-16 05:42] LABS: BASO % 0.3 % (0.0-1.0); EOS # 0.1 10^3/uL (0.0-0.5); EOS % 2.8 % (0.0-3.0); HEMATOCRIT 22.1 % (36.0-47.0); HEMOGLOBIN 7.3 g/dl (12.0-15.5); LYMPH # 1.3 10^3/uL (1.5-5.0); LYMPH % 36.9 % (24.0-44.0); MEAN CORPUSCULAR HEMOGLOBIN 32.9 pg (27.0-33.0); MEAN CORPUSCULAR VOLUME 99.5 fl (80.0-96.0); MONO # 0.4 10^3/uL (0.0-0.8); MONO % 11.5 % (2.0-8.0); NEUTROPHILS # 1.7 10^3/uL (1.5-8.5); NEUTROPHILS % 48.2 % (36.0-66.0); PLATELET COUNT, AUTOMATED 165 10^3/uL (150-450); RED BLOOD COUNT 2.22 10^6/uL (4.00-5.40); WHITE BLOOD COUNT 3.6 10^3/uL (4.0-10.0)
[2023-09-16 06:25] LABS: CALCIUM LEVEL 8.5 MG/DL (8.3-10.6); CREATININE FOR GFR 1.94 MG/DL (0.55-1.30); GLOMERULAR FILTRATION RATE 27.5 (>45); POTASSIUM SERUM 3.9 MMOL/L (3.5-5.1)
[2023-09-16] MEDS: INSULIN LISPRO (NovoLOG) PER UNIT SC SCH ×4 (07:30→20:29)
[2023-09-16] MEDS: allopurinoL 100 MG TAB PO SCH (08:48)
[2023-09-16] MEDS: METOPROLOL SUCC (TopROL XL) 50MG **XL** TAB PO SCH (08:49)
[2023-09-16] MEDS: TORSEMIDE 20 MG TAB PO SCH (08:49)
[2023-09-16] MEDS: DIGOXIN 0.0625MG PER 1/2TABLET PO SCH (08:50)
[2023-09-16] MEDS: ACYCLOVIR 200 MG CAPSULE PO SCH ×2 (08:50→20:42)
[2023-09-16] MEDS: FOLIC ACID 1MG TAB PO SCH (08:51)
[2023-09-16] MEDS: LACTOBACILLUS ACIDOPHILUS CAP (BACID) PO SCH (08:51)
[2023-09-16] MEDS: APIXABAN 5 MG TAB (ELIQUIS) PO SCH (08:51)
[2023-09-16] MEDS: HYDROXYCHLOROQUINE 200 MG TAB PO SCH (08:51)
[2023-09-16] MEDS: POTASSIUM CHLORIDE 10MEQ SR TABLET PO SCH ×2 (08:51→20:43)
[2023-09-16] MEDS: VITAMIN D 1,000 INTERNATIONAL UNITS TABLET PO SCH (09:00)
[2023-09-16] MEDS: PERCOCET 5MG/325MG TAB PO PRN ×2 (12:17→18:58)
[2023-09-16 13:17] LABS: ERYTHROCYTE SEDIMENTATION RATE 13 mm/hr (0-30)
[2023-09-16] MEDS ORDERED: LR 1,000 ML IV SCH (15:05)
[2023-09-16] MEDS: FOSFOMYCIN TROMETHAMINE 3 GM POWDER PACKET (MONUROL) PO ONE ×3 (18:29→18:51)
[2023-09-16] MEDS: CREON-12 CAPSULE PO SCH (18:49)
[2023-09-16] MEDS: CREON-24 CAPSULE PO SCH (18:49)
[2023-09-16 20:05] LABS: HEMATOCRIT 25.4 % (36.0-47.0); HEMOGLOBIN 8.5 g/dl (12.0-15.5); MEAN CORPUSCULAR HEMOGLOBIN 32.4 pg (27.0-33.0); MEAN CORPUSCULAR HGB CONC 33.5 g/dl (32.0-36.5); MEAN CORPUSCULAR VOLUME 96.9 fl (80.0-96.0); PLATELET COUNT, AUTOMATED 148 10^3/uL (150-450); RED BLOOD COUNT 2.62 10^6/uL (4.00-5.40); WHITE BLOOD COUNT 4.4 10^3/uL (4.0-10.0)
[2023-09-16] MEDS: GABAPENTIN 300 MG CAP PO SCH (20:42)
[2023-09-16] MEDS: MONTELUKAST 10 MG TAB PO SCH (20:42)
[2023-09-16] MEDS: oxyBUTYnin *DITROPAN XL* 5 MG TABCR PO SCH (20:42)
[2023-09-16] MEDS: SERTRALINE HCL 50 MG TAB PO SCH (20:42)
[2023-09-16] MEDS ORDERED: RUXOLITINIB 5 MG PO SCH (21:00)
[2023-09-17] MEDS: PERCOCET 5MG/325MG TAB PO PRN ×2 (03:28→10:03)
[2023-09-17 06:00] VITALS: BP 122/59; TEMP 98.6; O2SAT 97
[2023-09-17 07:15] LABS: HEMATOCRIT 25.3 % (36.0-47.0); HEMOGLOBIN 8.6 g/dl (12.0-15.5); RED BLOOD COUNT 2.57 10^6/uL (4.00-5.40)
[2023-09-17 07:16] LABS: BASO % 0.4 % (0.0-1.0); EOS # 0.1 10^3/uL (0.0-0.5); EOS % 2.4 % (0.0-3.0); LYMPH % 40.3 % (24.0-44.0); MEAN CORPUSCULAR HEMOGLOBIN 33.5 pg (27.0-33.0); MEAN CORPUSCULAR VOLUME 98.4 fl (80.0-96.0); MONO # 0.6 10^3/uL (0.0-0.8); MONO % 11.2 % (2.0-8.0); NEUTROPHILS # 2.3 10^3/uL (1.5-8.5); NEUTROPHILS % 45.5 % (36.0-66.0); PLATELET COUNT, AUTOMATED 154 10^3/uL (150-450)
[2023-09-17] MEDS: INSULIN LISPRO (NovoLOG) PER UNIT SC SCH ×2 (07:30→12:29)
[2023-09-17 07:45] LABS: CALCIUM LEVEL 8.4 MG/DL (8.3-10.6); CREATININE FOR GFR 2.02 MG/DL (0.55-1.30); GLOMERULAR FILTRATION RATE 26.2 (>45); POTASSIUM SERUM 3.6 MMOL/L (3.5-5.1)
[2023-09-17] MEDS: CREON-24 CAPSULE PO SCH ×2 (10:00→12:29)
[2023-09-17] MEDS: allopurinoL 100 MG TAB PO SCH (10:00)
[2023-09-17] MEDS: CREON-12 CAPSULE PO SCH ×2 (10:00→12:29)
[2023-09-17] MEDS: DIGOXIN 0.0625MG PER 1/2TABLET PO SCH (10:01)
[2023-09-17] MEDS: TORSEMIDE 20 MG TAB PO SCH (10:01)
[2023-09-17] MEDS: LACTOBACILLUS ACIDOPHILUS CAP (BACID) PO SCH (10:01)
[2023-09-17] MEDS: POTASSIUM CHLORIDE 10MEQ SR TABLET PO SCH (10:02)
[2023-09-17] MEDS: VITAMIN D 1,000 INTERNATIONAL UNITS TABLET PO SCH (10:02)
[2023-09-17] MEDS: HYDROXYCHLOROQUINE 200 MG TAB PO SCH (10:02)
[2023-09-17] MEDS: ACYCLOVIR 200 MG CAPSULE PO SCH (10:02)
[2023-09-17] MEDS: FOLIC ACID 1MG TAB PO SCH (10:03)
[2023-09-17] MEDS ORDERED: PYRI1TAB5 PO (10:04)
[2023-09-17 10:05] VITALS: BP 124/62
[2023-09-17] MEDS: METOPROLOL SUCC (TopROL XL) 50MG **XL** TAB PO SCH (10:05)
== END 2023-09-17 14:55 | disposition home health service (06) | DRG 696 ==
LOC: M ED 12:20 → M ED INP 22:16 → ENRESERV 23:13 → M MS5PR 09-15 00:05
PROVIDERS: ADMIT Internal Medicine; ATTEND Student in an Organized Health Care Education/Training Program
DX: R30.0 Dysuria (principal); Z94.81 Bone marrow transplant status; D89.811 Chronic graft-versus-host disease; N18.4 Chronic kidney disease, stage 4 (severe); D75.81 Myelofibrosis; I50.42 Chronic combined systolic (congestive) and diastolic (congestive) heart failure; N17.9 Acute kidney failure, unspecified; I13.0 Hypertensive heart and chronic kidney disease with heart failure and stage 1 through stage 4 chronic kidney disease, or unspecified chronic kidney disease; N39.0 Urinary tract infection, site not specified; G47.33 Obstructive sleep apnea (adult) (pediatric); E78.5 Hyperlipidemia, unspecified; E11.22 Type 2 diabetes mellitus with diabetic chronic kidney disease; G25.81 Restless legs syndrome; R35.0 Frequency of micturition; R31.9 Hematuria, unspecified; D63.1 Anemia in chronic kidney disease; F41.9 Anxiety disorder, unspecified; F32.A Depression, unspecified; N20.0 Calculus of kidney; M79.7 Fibromyalgia; I48.0 Paroxysmal atrial fibrillation; D63.8 Anemia in other chronic diseases classified elsewhere; K81.1 Chronic cholecystitis; M47.816 Spondylosis without myelopathy or radiculopathy, lumbar region; M32.9 Systemic lupus erythematosus, unspecified; M48.061 Spinal stenosis, lumbar region without neurogenic claudication; R74.01 Elevation of levels of liver transaminase levels; K86.89 Other specified diseases of pancreas; M10.9 Gout, unspecified; N32.81 Overactive bladder; Z79.01 Long term (current) use of anticoagulants; Z79.4 Long term (current) use of insulin; Z79.899 Other long term (current) drug therapy; Z88.1 Allergy status to other antibiotic agents; Z88.8 Allergy status to other drugs, medicaments and biological substances; Z91.041 Radiographic dye allergy status; Z91.018 Allergy to other foods; Z91.02 Food additives allergy status; Z86.73 Personal history of transient ischemic attack (TIA), and cerebral infarction without residual deficits

== ENCOUNTER 2023-10-02 11:26 | Outpatient (CLI) | payer MEDICARE, OTHER ==
[~2023-10-02] VITALS: Ht 165.1 cm; Wt 60.9 kg
[~2023-10-02 11:26] MED LIST changes: +AMOX500T2 PO; +CULTCAP2 PO; +ERYT200S17 PO; +JAKA5TAB PO; +POTA-150 PO; +PYRI1TAB5 PO
[2023-10-02 11:55] VITALS: BP 137/67; O2SAT 100
[2023-10-02] MEDS ORDERED: ERTAPENEM SODIUM 1 GM in NS MINI-BAG PLUS 50 ML IV ONE (12:00)
[2023-10-02 12:55] VITALS: BP 144/72; O2SAT 100
== END 2023-10-02 13:00 ==
LOC: M INFU 11:26
PROVIDERS: ATTEND Internal Medicine Nephrology
DX: N39.0 Urinary tract infection, site not specified (principal); Z88.8 Allergy status to other drugs, medicaments and biological substances; Z88.1 Allergy status to other antibiotic agents
CPT/HCPCS: 96365; J1335

== ENCOUNTER 2023-10-03 16:50 | Outpatient (CLI) | payer MEDICARE, OTHER ==
[~2023-10-03] VITALS: Ht 167.6 cm; Wt 61.8 kg
[2023-10-03] MEDS ORDERED: ERTAPENEM SODIUM 1 GM in NS MINI-BAG PLUS 50 ML IV ONE (17:00)
[2023-10-03 17:11] VITALS: BP 142/71; O2SAT 100
== END 2023-10-03 17:45 ==
LOC: M INFU 16:50
PROVIDERS: ATTEND Internal Medicine Nephrology
DX: N39.0 Urinary tract infection, site not specified (principal); Z88.1 Allergy status to other antibiotic agents; Z88.8 Allergy status to other drugs, medicaments and biological substances
CPT/HCPCS: 96365; J1335

== ENCOUNTER → 2023-10-04 | Outpatient (CLI) | payer MEDICARE, OTHER ==
[~2023-10-04] VITALS: Ht 167.6 cm; Wt 61.8 kg
[~2023-10-04] MED LIST changes: +ERTAPENEM SODIUM 1 GM in NS MINI-BAG PLUS 50 ML IV ONE
[2023-10-04 16:10] VITALS: BP 137/70; O2SAT 97
[2023-10-04 17:55] VITALS: BP 155/75; O2SAT 99
== END ==
LOC: M INFU 16:10
PROVIDERS: ATTEND Internal Medicine Nephrology
DX: N39.0 Urinary tract infection, site not specified (principal); Z88.1 Allergy status to other antibiotic agents; Z88.8 Allergy status to other drugs, medicaments and biological substances
CPT/HCPCS: 96365; J1335

== ENCOUNTER 2023-10-05 16:00 | Outpatient (CLI) | payer MEDICARE, OTHER ==
[~2023-10-05] VITALS: Ht 167.6 cm; Wt 61.8 kg
[2023-10-05 16:00] VITALS: BP 140/86; O2SAT 100
[2023-10-05 17:00] VITALS: BP 147/72; O2SAT 100
== END 2023-10-05 16:55 | disposition home or self-care (01) ==
LOC: M INFU 16:00
PROVIDERS: ATTEND Internal Medicine Nephrology
DX: N39.0 Urinary tract infection, site not specified (principal); Z88.1 Allergy status to other antibiotic agents; Z88.8 Allergy status to other drugs, medicaments and biological substances
CPT/HCPCS: 96365; J1335

== ENCOUNTER 2023-10-06 15:45 | Outpatient (CLI) | payer MEDICARE, OTHER ==
[~2023-10-06] VITALS: Ht 167.6 cm; Wt 62.0 kg
[~2023-10-06 15:45] MED LIST changes: -ERTAPENEM SODIUM 1 GM in NS MINI-BAG PLUS 50 ML IV ONE
[2023-10-06 16:30] VITALS: BP 139/76; O2SAT 100
[2023-10-06] MEDS ORDERED: ERTAPENEM SODIUM 1 GM in NS MINI-BAG PLUS 50 ML IV ONE (17:00)
[2023-10-06 17:30] VITALS: BP 136/70; O2SAT 100
== END 2023-10-06 17:35 | disposition home or self-care (01) ==
LOC: M INFU 15:45
PROVIDERS: ATTEND Internal Medicine Nephrology
DX: N39.0 Urinary tract infection, site not specified (principal); Z88.1 Allergy status to other antibiotic agents; Z88.8 Allergy status to other drugs, medicaments and biological substances; Z91.041 Radiographic dye allergy status; Z91.89 Other specified personal risk factors, not elsewhere classified; Z91.018 Allergy to other foods
CPT/HCPCS: 96365; J1335

== ENCOUNTER 2023-10-07 15:54 | Outpatient (CLI) | payer MEDICARE, OTHER ==
[2023-10-07 16:10] VITALS: BP 147/68; O2SAT 99
[2023-10-07] MEDS ORDERED: ERTAPENEM SODIUM 1 GM in NS MINI-BAG PLUS 50 ML IV ONE (17:00)
[2023-10-07 17:20] VITALS: BP 149/70; O2SAT 100
== END 2023-10-07 17:25 | disposition home or self-care (01) ==
LOC: M MS4PR 15:54 → UNDOADMOB 15:54 → M MS4PR 15:54 → M OPCLI4PR 15:54 → UNDODISOB 17:25
PROVIDERS: ATTEND Internal Medicine Nephrology
DX: N39.0 Urinary tract infection, site not specified (principal); Z88.8 Allergy status to other drugs, medicaments and biological substances; Z88.1 Allergy status to other antibiotic agents
CPT/HCPCS: 96374; J1335

== ENCOUNTER 2023-10-08 15:53 | Outpatient (CLI) | payer MEDICARE, OTHER ==
[~2023-10-08] VITALS: Ht 165.1 cm; Wt 61.0 kg
[2023-10-08 16:30] VITALS: BP 139/71; TEMP 97.4; O2SAT 100
[2023-10-08] MEDS ORDERED: ERTAPENEM SODIUM 1 GM in NS MINI-BAG PLUS 50 ML IV ONE (17:05)
[2023-10-08 18:14] VITALS: BP 149/74; TEMP 97.7; O2SAT 99
== END 2023-10-08 18:30 | disposition home or self-care (01) ==
LOC: M OPCLI4PR 15:53 → M MS4PR 16:19 → M OPCLI4PR 18:30
PROVIDERS: ATTEND Internal Medicine Nephrology
DX: N39.0 Urinary tract infection, site not specified (principal); Z88.1 Allergy status to other antibiotic agents; Z88.8 Allergy status to other drugs, medicaments and biological substances
CPT/HCPCS: 96365; J1335

== ENCOUNTER 2023-10-09 16:30 | Outpatient (CLI) | payer MEDICARE, OTHER ==
[~2023-10-09] VITALS: Ht 167.6 cm; Wt 62.0 kg
[2023-10-09 16:30] VITALS: BP 129/69; O2SAT 99
[2023-10-09 16:58] VITALS: BP 123/72; O2SAT 100
[2023-10-09] MEDS ORDERED: ERTAPENEM SODIUM 1 GM in NS MINI-BAG PLUS 50 ML IV ONE (17:00)
== END 2023-10-09 17:10 | disposition home or self-care (01) ==
LOC: M INFU 16:30
PROVIDERS: ATTEND Internal Medicine Nephrology
DX: N39.0 Urinary tract infection, site not specified (principal); Z88.8 Allergy status to other drugs, medicaments and biological substances; Z88.1 Allergy status to other antibiotic agents
CPT/HCPCS: 96365; J1335

== ENCOUNTER 2023-10-10 16:35 | Outpatient (CLI) | payer MEDICARE, OTHER ==
[~2023-10-10] VITALS: Ht 165.1 cm; Wt 60.4 kg
[2023-10-10 16:35] VITALS: BP 155/85; O2SAT 98
[~2023-10-10 16:35] MED LIST changes: +ERTAPENEM SODIUM 1 GM in NS MINI-BAG PLUS 50 ML IV ONE
== END 2023-10-10 17:38 | disposition home or self-care (01) ==
LOC: M INFU 16:35
PROVIDERS: ATTEND Internal Medicine Nephrology
DX: N39.0 Urinary tract infection, site not specified (principal); Z88.8 Allergy status to other drugs, medicaments and biological substances; Z88.1 Allergy status to other antibiotic agents
CPT/HCPCS: 96365; J1335

== ENCOUNTER 2023-10-11 16:20 | Outpatient (CLI) | payer MEDICARE, OTHER ==
[~2023-10-11] VITALS: Ht 162.6 cm; Wt 62.0 kg
[2023-10-11 16:20] VITALS: BP 136/70; O2SAT 100
[~2023-10-11 16:20] MED LIST changes: -ERTAPENEM SODIUM 1 GM in NS MINI-BAG PLUS 50 ML IV ONE
[2023-10-11] MEDS ORDERED: ERTAPENEM SODIUM 1 GM in NS MINI-BAG PLUS 50 ML IV ONE (16:30)
[2023-10-11 16:59] VITALS: BP 155/70; O2SAT 97
== END 2023-10-11 17:00 | disposition home or self-care (01) ==
LOC: M INFU 16:20
PROVIDERS: ATTEND Internal Medicine Nephrology
DX: N39.0 Urinary tract infection, site not specified (principal); Z88.1 Allergy status to other antibiotic agents; Z88.8 Allergy status to other drugs, medicaments and biological substances
CPT/HCPCS: 96365; J1335

== ENCOUNTER 2023-10-12 16:30 | Outpatient (CLI) | payer MEDICARE, OTHER ==
[~2023-10-12] VITALS: Ht 162.6 cm; Wt 62.0 kg
[2023-10-12 15:21] VITALS: BP 145/69; O2SAT 100
[2023-10-12] MEDS ORDERED: ERTAPENEM SODIUM 1 GM in NS MINI-BAG PLUS 50 ML IV ONE (17:00)
== END 2023-10-12 17:26 | disposition home or self-care (01) ==
LOC: M INFU 16:30
PROVIDERS: ATTEND Internal Medicine Nephrology
DX: N39.0 Urinary tract infection, site not specified (principal); Z88.1 Allergy status to other antibiotic agents; Z88.8 Allergy status to other drugs, medicaments and biological substances; Z94.81 Bone marrow transplant status; D89.811 Chronic graft-versus-host disease
CPT/HCPCS: 80053; 85025; 96365; J1335

== ENCOUNTER → 2023-10-12 | Outpatient (REF) | payer MEDICARE, OTHER ==
[2023-10-12 13:16] LABS: BASO % 0.4 % (0.0-1.0); EOS # 0.2 10^3/uL (0.0-0.5); HEMATOCRIT 24.7 % (36.0-47.0); HEMOGLOBIN 8.3 g/dl (12.0-15.5); LYMPH # 2.3 10^3/uL (1.5-5.0); LYMPH % 46.9 % (24.0-44.0); MEAN CORPUSCULAR HEMOGLOBIN 32.9 pg (27.0-33.0); MEAN CORPUSCULAR HGB CONC 33.6 g/dl (32.0-36.5); MONO # 0.5 10^3/uL (0.0-0.8); MONO % 10.9 % (2.0-8.0); NEUTROPHILS # 1.9 10^3/uL (1.5-8.5); NEUTROPHILS % 38.8 % (36.0-66.0); PLATELET COUNT, AUTOMATED 187 10^3/uL (150-450); RED BLOOD COUNT 2.52 10^6/uL (4.00-5.40)
[2023-10-12 13:33] LABS: ALBUMIN 3.8 G/DL (3.2-5.2); BILIRUBIN,TOTAL 0.3 MG/DL (0.3-1.2); CALCIUM LEVEL 9.4 MG/DL (8.3-10.6); CREATININE FOR GFR 2.03 MG/DL (0.55-1.30); GLOMERULAR FILTRATION RATE 26.1 (>45)
== END ==
LOC: M LAB REF 12:29
PROVIDERS: ATTEND Internal Medicine Hematology
DX: Z94.81 Bone marrow transplant status (principal); D89.811 Chronic graft-versus-host disease

== ENCOUNTER 2023-10-13 16:10 | Outpatient (CLI) | payer MEDICARE, OTHER ==
[2023-10-13 16:10] VITALS: BP 134/61; O2SAT 99
[2023-10-13] MEDS ORDERED: ERTAPENEM SODIUM 1 GM in NS MINI-BAG PLUS 50 ML IV ONE (16:30)
== END 2023-10-13 17:00 | disposition home or self-care (01) ==
LOC: M INFU 16:10
PROVIDERS: ATTEND Internal Medicine Nephrology
DX: N39.0 Urinary tract infection, site not specified (principal); Z88.8 Allergy status to other drugs, medicaments and biological substances; Z88.1 Allergy status to other antibiotic agents
CPT/HCPCS: 96365; J1335

== ENCOUNTER → 2023-10-18 | Outpatient (REF) | payer MEDICARE, OTHER | LOC: M LAB REF 16:49 | PROVIDERS: ATTEND Internal Medicine Nephrology | DX: R30.0 Dysuria (principal) ==

== ENCOUNTER → 2023-10-24 | Outpatient (REF) | payer MEDICARE, OTHER ==
[2023-10-24 14:16] LABS: BASO % 0.4 % (0.0-1.0); EOS # 0.2 10^3/uL (0.0-0.5); EOS % 2.6 % (0.0-3.0); LYMPH # 2.1 10^3/uL (1.5-5.0); LYMPH % 37.4 % (24.0-44.0); MEAN CORPUSCULAR HEMOGLOBIN 33.1 pg (27.0-33.0); MEAN CORPUSCULAR HGB CONC 33.3 g/dl (32.0-36.5); MEAN CORPUSCULAR VOLUME 99.2 fl (80.0-96.0); MONO # 0.5 10^3/uL (0.0-0.8); MONO % 8.8 % (2.0-8.0); NEUTROPHILS # 2.9 10^3/uL (1.5-8.5); NEUTROPHILS % 50.6 % (36.0-66.0); PLATELET COUNT, AUTOMATED 177 10^3/uL (150-450); RED BLOOD COUNT 2.42 10^6/uL (4.00-5.40); WHITE BLOOD COUNT 5.7 10^3/uL (4.0-10.0)
[2023-10-24 14:43] LABS: ALBUMIN 3.8 G/DL (3.2-5.2); BILIRUBIN,TOTAL 0.3 MG/DL (0.3-1.2); CALCIUM LEVEL 9.4 MG/DL (8.3-10.6); GLOMERULAR FILTRATION RATE 26.5 (>45); TOTAL PROTEIN 5.8 G/DL (5.7-8.2)
== END ==
LOC: M LAB REF 12:52
PROVIDERS: ATTEND Internal Medicine
DX: D89.811 Chronic graft-versus-host disease (principal); Z94.81 Bone marrow transplant status

== ENCOUNTER → 2023-11-08 | Outpatient (REF) | payer MEDICARE, OTHER ==
[2023-11-08 18:47] LABS: BASO % 0.2 % (0.0-1.0); EOS # 0.1 10^3/uL (0.0-0.5); EOS % 1.7 % (0.0-3.0); LYMPH # 1.9 10^3/uL (1.5-5.0); LYMPH % 34.8 % (24.0-44.0); MEAN CORPUSCULAR HGB CONC 33.5 g/dl (32.0-36.5); MEAN CORPUSCULAR VOLUME 101.5 fl (80.0-96.0); MONO # 0.6 10^3/uL (0.0-0.8); MONO % 10.6 % (2.0-8.0); NEUTROPHILS # 2.8 10^3/uL (1.5-8.5); NEUTROPHILS % 52.5 % (36.0-66.0); PLATELET COUNT, AUTOMATED 194 10^3/uL (150-450); WHITE BLOOD COUNT 5.4 10^3/uL (4.0-10.0)
[2023-11-08 19:03] LABS: HEMATOCRIT 20.3 % (36.0-47.0); HEMOGLOBIN 6.8 g/dl (12.0-15.5)
[2023-11-08 19:32] LABS: ALBUMIN 3.6 G/DL (3.2-5.2); BILIRUBIN,TOTAL 0.2 MG/DL (0.3-1.2); CREATININE FOR GFR 2.07 MG/DL (0.55-1.30); GLOMERULAR FILTRATION RATE 25.5 (>45); POTASSIUM SERUM 3.8 MMOL/L (3.5-5.1); TOTAL PROTEIN 5.5 G/DL (5.7-8.2)
== END ==
LOC: M LAB REF 17:56
PROVIDERS: ATTEND Internal Medicine Hematology
DX: D89.811 Chronic graft-versus-host disease (principal); Z94.81 Bone marrow transplant status

== ENCOUNTER → 2023-11-09 | Outpatient (REF) | payer MEDICARE, OTHER ==
[2023-11-09 19:36] LABS: PERCENT SATURATION 30.7 % (13.2-45.0)
[2023-11-09 19:38] LABS: FERRITIN 326.5 NG/ML (7.3-270.7)
== END ==
LOC: M LAB REF 18:00
PROVIDERS: ATTEND Internal Medicine Nephrology
DX: D50.9 Iron deficiency anemia, unspecified (principal); D62 Acute posthemorrhagic anemia

== ENCOUNTER 2023-11-10 14:35 | Outpatient (CLI) | payer MEDICARE, OTHER ==
[~2023-11-10] VITALS: Ht 165.1 cm; Wt 59.5 kg
[~2023-11-10 14:35] MED LIST changes: +HYDR-161 PO; -HYDR10TAB PO
[2023-11-10 15:25] VITALS: BP 128/66; TEMP 98.1; O2SAT 96
[2023-11-10 15:45] VITALS: BP 131/72; TEMP 98.2; O2SAT 100
[2023-11-10 16:44] VITALS: BP 138/75; TEMP 97.9; O2SAT 100
[2023-11-10 17:55] VITALS: BP 128/66; TEMP 97.8; O2SAT 100
== END 2023-11-10 18:00 ==
LOC: M INFU 14:35
PROVIDERS: ATTEND Internal Medicine Nephrology
DX: D64.9 Anemia, unspecified (principal)
CPT/HCPCS: 36430; P9016

== ENCOUNTER → 2023-11-12 | Outpatient (CLI) | payer MEDICARE, OTHER ==
[~2023-11-12] MED LIST changes: -HYDR-161 PO; +HYDR10TAB PO
== END ==
LOC: M LAB 13:01
PROVIDERS: ATTEND Internal Medicine Nephrology
DX: N18.9 Chronic kidney disease, unspecified (principal); D63.1 Anemia in chronic kidney disease

== ENCOUNTER 2023-11-13 11:00 | Outpatient (CLI) | payer MEDICARE, OTHER ==
[~2023-11-13] VITALS: Ht 165.1 cm; Wt 60.0 kg
[~2023-11-13 11:00] MED LIST changes: +NS 250 ML IV ONE
[2023-11-13] MEDS ORDERED: SODIUM CHLORIDE 0.9% INJ 10 ML SYR IV PRN (11:05)
[2023-11-13 12:20] VITALS: BP 140/72; TEMP 97.4; O2SAT 97
[2023-11-13 13:20] VITALS: BP 136/76; TEMP 98; O2SAT 97
[2023-11-13 14:20] VITALS: BP 134/8; TEMP 97.6; O2SAT 100
[2023-11-13 15:10] VITALS: BP 174/77; TEMP 97.3; O2SAT 100
[2023-11-13 15:34] VITALS: BP 136/74; O2SAT 100
== END 2023-11-13 15:38 | disposition home or self-care (01) ==
LOC: M INFU 11:00
PROVIDERS: ATTEND Internal Medicine Nephrology
DX: D64.9 Anemia, unspecified (principal); Z88.1 Allergy status to other antibiotic agents; Z88.8 Allergy status to other drugs, medicaments and biological substances; Z91.041 Radiographic dye allergy status; Z91.048 Other nonmedicinal substance allergy status
CPT/HCPCS: 36430; 96523; P9040

== ENCOUNTER → 2023-11-21 | Outpatient (REF) | payer MEDICARE, OTHER ==
[~2023-11-21] MED LIST changes: -NS 250 ML IV ONE
[2023-11-21 12:15] LABS: BASO % 0.4 % (0.0-1.0); EOS # 0.1 10^3/uL (0.0-0.5); EOS % 1.8 % (0.0-3.0); HEMATOCRIT 29.3 % (36.0-47.0); HEMOGLOBIN 9.9 g/dl (12.0-15.5); LYMPH # 2.2 10^3/uL (1.5-5.0); LYMPH % 43.4 % (24.0-44.0); MEAN CORPUSCULAR HEMOGLOBIN 33.1 pg (27.0-33.0); MEAN CORPUSCULAR HGB CONC 33.8 g/dl (32.0-36.5); MONO # 0.6 10^3/uL (0.0-0.8); MONO % 12.4 % (2.0-8.0); NEUTROPHILS # 2.1 10^3/uL (1.5-8.5); NEUTROPHILS % 41.8 % (36.0-66.0); PLATELET COUNT, AUTOMATED 173 10^3/uL (150-450); RED BLOOD COUNT 2.99 10^6/uL (4.00-5.40)
[2023-11-21 12:43] LABS: ALBUMIN 3.8 G/DL (3.2-5.2); BILIRUBIN,TOTAL 0.4 MG/DL (0.3-1.2); CALCIUM LEVEL 9.4 MG/DL (8.3-10.6); CREATININE FOR GFR 2.03 MG/DL (0.55-1.30); GLOMERULAR FILTRATION RATE 26.1 (>45); POTASSIUM SERUM 3.7 MMOL/L (3.5-5.1)
== END ==
LOC: M LAB REF 11:20
PROVIDERS: ATTEND Internal Medicine Hematology
DX: Z94.81 Bone marrow transplant status (principal); D89.811 Chronic graft-versus-host disease

== ENCOUNTER 2023-11-24 16:22 | Outpatient (CLI) | payer MEDICARE, OTHER ==
[~2023-11-24] VITALS: Ht 165.1 cm; Wt 60.0 kg
[~2023-11-24 16:22] MED LIST changes: +HYDR-161 PO; -HYDR10TAB PO; +SODIUM CHLORIDE 0.9% INJ 10 ML SYR IV SCH
[2023-11-24] MEDS ORDERED: ERTAPENEM SODIUM 500 MG in NS 50 ML IV ONE (16:30)
[2023-11-24 16:35] VITALS: BP 145/70; O2SAT 100
[2023-11-24 17:25] VITALS: BP 146/66; O2SAT 100
== END 2023-11-24 17:25 | disposition home or self-care (01) ==
LOC: M INFU 16:22
PROVIDERS: ATTEND Internal Medicine Nephrology
DX: N39.0 Urinary tract infection, site not specified (principal); B96.1 Klebsiella pneumoniae [K. pneumoniae] as the cause of diseases classified elsewhere; Z88.8 Allergy status to other drugs, medicaments and biological substances; Z88.1 Allergy status to other antibiotic agents; Z91.041 Radiographic dye allergy status
CPT/HCPCS: 96365; J1335

== ENCOUNTER 2023-11-25 10:43 | Outpatient (CLI) | payer MEDICARE, OTHER ==
[~2023-11-25] VITALS: Ht 165.1 cm; Wt 59.8 kg
[~2023-11-25 10:43] MED LIST changes: -SODIUM CHLORIDE 0.9% INJ 10 ML SYR IV SCH
[2023-11-25 11:05] VITALS: BP 142/62; TEMP 98.1; O2SAT 98
[2023-11-25] MEDS ORDERED: ERTAPENEM SODIUM 500 MG in NS 50 ML IV ONE (12:00)
[2023-11-25 13:31] VITALS: BP 142/73; TEMP 97.6; O2SAT 98
== END 2023-11-25 14:01 | disposition home or self-care (01) ==
LOC: M OPCLIPED 10:43 → M PED 10:50 → M OPCLIPED 14:01
PROVIDERS: ATTEND Internal Medicine Nephrology
DX: N39.0 Urinary tract infection, site not specified (principal); B96.1 Klebsiella pneumoniae [K. pneumoniae] as the cause of diseases classified elsewhere; Z88.8 Allergy status to other drugs, medicaments and biological substances; Z88.1 Allergy status to other antibiotic agents; Z91.041 Radiographic dye allergy status
CPT/HCPCS: 96365; J1335

== ENCOUNTER 2023-11-26 10:03 | Outpatient (CLI) | payer MEDICARE, OTHER ==
[~2023-11-26] VITALS: Ht 165.1 cm; Wt 59.8 kg
[2023-11-26 10:21] VITALS: BP 148/75; TEMP 96.9; O2SAT 100
[2023-11-26] MEDS ORDERED: ERTAPENEM SODIUM 500 MG in NS 50 ML IV ONE (11:00)
[2023-11-26 11:39] VITALS: BP 163/73; TEMP 97; O2SAT 100
== END 2023-11-26 11:48 | disposition home or self-care (01) ==
LOC: M OPCLIPED 10:03 → M PED 10:07 → M OPCLIPED 11:48
PROVIDERS: ATTEND Internal Medicine Nephrology
DX: N39.0 Urinary tract infection, site not specified (principal); B96.1 Klebsiella pneumoniae [K. pneumoniae] as the cause of diseases classified elsewhere; Z88.1 Allergy status to other antibiotic agents; Z88.8 Allergy status to other drugs, medicaments and biological substances; Z91.041 Radiographic dye allergy status
CPT/HCPCS: 96365; J1335

== ENCOUNTER 2023-11-27 16:40 | Outpatient (CLI) | payer MEDICARE, OTHER ==
[2023-11-27 16:05] VITALS: BP 144/82; O2SAT 100
[2023-11-27 16:40] VITALS: BP 129/78; O2SAT 100
[~2023-11-27 16:40] MED LIST changes: +ERTAPENEM SODIUM 500 MG in NS 50 ML IV ONE
== END 2023-11-27 17:00 | disposition home or self-care (01) ==
LOC: M INFU 16:40
PROVIDERS: ATTEND Internal Medicine Nephrology
DX: N39.0 Urinary tract infection, site not specified (principal); B96.1 Klebsiella pneumoniae [K. pneumoniae] as the cause of diseases classified elsewhere; Z88.8 Allergy status to other drugs, medicaments and biological substances; Z88.1 Allergy status to other antibiotic agents; Z91.041 Radiographic dye allergy status
CPT/HCPCS: 96365; J1335

== ENCOUNTER 2023-11-28 07:05 | Outpatient (CLI) | payer MEDICARE, OTHER ==
[~2023-11-28] VITALS: Ht 165.1 cm; Wt 60.0 kg
[2023-11-28 07:05] VITALS: BP 132/65; O2SAT 100
[~2023-11-28 07:05] MED LIST changes: -ERTAPENEM SODIUM 500 MG in NS 50 ML IV ONE
[2023-11-28] MEDS ORDERED: ERTAPENEM SODIUM 500 MG in NS 50 ML IV SCH (07:15)
[2023-11-28 08:38] VITALS: BP 171/79; O2SAT 100
== END 2023-11-28 08:39 | disposition home or self-care (01) ==
LOC: M INFU 07:05
PROVIDERS: ATTEND Internal Medicine Nephrology
DX: N39.0 Urinary tract infection, site not specified (principal); B96.1 Klebsiella pneumoniae [K. pneumoniae] as the cause of diseases classified elsewhere; Z88.1 Allergy status to other antibiotic agents; Z88.8 Allergy status to other drugs, medicaments and biological substances; Z91.041 Radiographic dye allergy status
CPT/HCPCS: 96365; J1335

== ENCOUNTER 2023-11-29 16:00 | Outpatient (CLI) | payer MEDICARE, OTHER ==
[~2023-11-29] VITALS: Ht 152.4 cm; Wt 65.0 kg
[2023-11-29 16:00] VITALS: BP 147/81; O2SAT 96
[~2023-11-29 16:00] MED LIST changes: +ERTAPENEM SODIUM 500 MG in NS 50 ML IV ONE; +SODIUM CHLORIDE 0.9% INJ 10 ML SYR IV SCH
[2023-11-29 17:30] VITALS: BP 158/83; O2SAT 100
== END 2023-11-29 17:35 | disposition home or self-care (01) ==
LOC: M INFU 16:00
PROVIDERS: ATTEND Internal Medicine Nephrology
DX: N39.0 Urinary tract infection, site not specified (principal); B96.1 Klebsiella pneumoniae [K. pneumoniae] as the cause of diseases classified elsewhere; Z91.041 Radiographic dye allergy status; Z88.8 Allergy status to other drugs, medicaments and biological substances; Z88.1 Allergy status to other antibiotic agents
CPT/HCPCS: 96365; J1335

== ENCOUNTER 2023-11-30 15:30 | Outpatient (CLI) | payer MEDICARE, OTHER ==
[~2023-11-30] VITALS: Ht 165.1 cm; Wt 60.0 kg
[2023-11-30 15:30] VITALS: BP 148/67; O2SAT 100
[~2023-11-30 15:30] MED LIST changes: -SODIUM CHLORIDE 0.9% INJ 10 ML SYR IV SCH
[2023-11-30] MEDS ORDERED: SODIUM CHLORIDE 0.9% INJ 10 ML SYR IV PRN (17:15)
[2023-11-30 17:25] VITALS: BP 137/64; O2SAT 100
== END 2023-11-30 17:25 | disposition home or self-care (01) ==
LOC: M INFU 15:30
PROVIDERS: ATTEND Internal Medicine Nephrology
DX: N39.0 Urinary tract infection, site not specified (principal); B96.1 Klebsiella pneumoniae [K. pneumoniae] as the cause of diseases classified elsewhere; Z91.041 Radiographic dye allergy status; Z88.8 Allergy status to other drugs, medicaments and biological substances; Z88.1 Allergy status to other antibiotic agents
CPT/HCPCS: 96365; J1335

== ENCOUNTER 2023-12-01 16:45 | Outpatient (CLI) | payer MEDICARE, OTHER ==
[~2023-12-01] VITALS: Ht 165.1 cm; Wt 59.0 kg
[~2023-12-01 16:45] MED LIST changes: -ERTAPENEM SODIUM 500 MG in NS 50 ML IV ONE
[2023-12-01 16:52] VITALS: BP 185/88; O2SAT 100
[2023-12-01] MEDS: ERTAPENEM SODIUM 500 MG in NS 50 ML IV ONE (17:15)
[2023-12-01] MEDS ORDERED: SODIUM CHLORIDE 0.9% INJ 10 ML SYR IV PRN (17:20)
[2023-12-01] MEDS: SODIUM CHLORIDE 0.9% INJ 10 ML SYR IV SCH (17:45)
[2023-12-01 17:55] VITALS: BP 151/74; O2SAT 100
[2023-12-02] MEDS ORDERED: ERTAPENEM SODIUM 500 MG in NS 50 ML IV ONE (16:00)
== END 2023-12-01 17:55 | disposition home or self-care (01) ==
LOC: M INFU 16:45
PROVIDERS: ATTEND Internal Medicine Nephrology
DX: N39.0 Urinary tract infection, site not specified (principal); B96.1 Klebsiella pneumoniae [K. pneumoniae] as the cause of diseases classified elsewhere; Z91.041 Radiographic dye allergy status; Z88.8 Allergy status to other drugs, medicaments and biological substances; Z88.1 Allergy status to other antibiotic agents
CPT/HCPCS: 96365; J1335

== ENCOUNTER 2023-12-02 13:03 | Outpatient (CLI) | payer MEDICARE, OTHER ==
[~2023-12-02] VITALS: Ht 165.1 cm; Wt 64.6 kg
[2023-12-02 13:50] VITALS: BP 155/77; TEMP 97.9; O2SAT 100
[2023-12-02] MEDS ORDERED: SODIUM CHLORIDE 0.9% INJ 10 ML SYR IV PRN (14:05)
[2023-12-02] MEDS ORDERED: ERTAPENEM SODIUM 500 MG in NS 50 ML IV ONE (16:00)
== END 2023-12-02 17:28 ==
LOC: M OPCLI4PV 13:03 → M MSPAV 13:48 → M OPCLI4PV 17:28
PROVIDERS: ATTEND Internal Medicine Nephrology
DX: N39.0 Urinary tract infection, site not specified (principal); B96.1 Klebsiella pneumoniae [K. pneumoniae] as the cause of diseases classified elsewhere; Z91.041 Radiographic dye allergy status; Z88.8 Allergy status to other drugs, medicaments and biological substances; Z88.1 Allergy status to other antibiotic agents
CPT/HCPCS: 96365; J1335

== ENCOUNTER 2023-12-03 12:50 | Outpatient (CLI) | payer MEDICARE, OTHER ==
[~2023-12-03] VITALS: Ht 157.5 cm; Wt 63.4 kg
[2023-12-03 13:14] VITALS: BP 148/71; O2SAT 96
[2023-12-03] MEDS ORDERED: SODIUM CHLORIDE 0.9% INJ 10 ML SYR IV PRN (13:15)
[2023-12-03] MEDS ORDERED: ERTAPENEM SODIUM 500 MG in NS 50 ML IV ONE (14:00)
[2023-12-03 15:11] VITALS: BP 138/72; O2SAT 97
[2023-12-04] MEDS ORDERED: SODIUM CHLORIDE 0.9% INJ 10 ML SYR IV SCH (09:00)
== END 2023-12-03 15:47 | disposition home or self-care (01) ==
LOC: M OPCLI4PV 12:50 → M MSPAV 13:03 → M OPCLI4PV 15:47
PROVIDERS: ATTEND Internal Medicine Nephrology
DX: N39.0 Urinary tract infection, site not specified (principal); B96.1 Klebsiella pneumoniae [K. pneumoniae] as the cause of diseases classified elsewhere; Z91.041 Radiographic dye allergy status; Z88.1 Allergy status to other antibiotic agents; Z88.8 Allergy status to other drugs, medicaments and biological substances
CPT/HCPCS: 96374; J1335

== ENCOUNTER → 2023-12-04 | Outpatient (REF) | payer MEDICARE, OTHER ==
[2023-12-04 16:44] LABS: TOTAL PROTEIN,RANDOM URINE 56.7 MG/DL (0.0-14.0)
[2023-12-04 16:49] LABS: CREATININE,RANDOM URINE 27.9 MG/DL
[2023-12-04 16:50] LABS: ALBUMIN 3.5 G/DL (3.2-5.2); CALCIUM LEVEL 9.3 MG/DL (8.3-10.6); CREATININE FOR GFR 1.74 MG/DL (0.55-1.30); GLOMERULAR FILTRATION RATE 31.2 (>45); PERCENT SATURATION 41.5 % (13.2-45.0); PHOSPHORUS LEVEL 4.3 MG/DL (2.4-5.1)
[2023-12-04 16:52] LABS: FERRITIN 320.3 NG/ML (7.3-270.7)
[2023-12-04 17:19] LABS: HEMOGLOBIN A1c 5.3 % (4.0-6.0)
== END ==
LOC: M LAB REF 15:20
PROVIDERS: ATTEND Internal Medicine Nephrology
DX: N18.32 Chronic kidney disease, stage 3b (principal); D63.1 Anemia in chronic kidney disease; I12.9 Hypertensive chronic kidney disease with stage 1 through stage 4 chronic kidney disease, or unspecified chronic kidney disease; N18.30 Chronic kidney disease, stage 3 unspecified; R80.9 Proteinuria, unspecified; Z94.81 Bone marrow transplant status; D89.811 Chronic graft-versus-host disease; Z79.899 Other long term (current) drug therapy

== ENCOUNTER → 2023-12-04 | Outpatient (REF) | payer MEDICARE, OTHER ==
[2023-12-04 16:31] LABS: BASO % 0.4 % (0.0-1.0); EOS # 0.1 10^3/uL (0.0-0.5); EOS % 1.9 % (0.0-3.0); HEMATOCRIT 23.8 % (36.0-47.0); LYMPH # 1.7 10^3/uL (1.5-5.0); LYMPH % 36.9 % (24.0-44.0); MEAN CORPUSCULAR HEMOGLOBIN 33.5 pg (27.0-33.0); MEAN CORPUSCULAR HGB CONC 33.6 g/dl (32.0-36.5); MEAN CORPUSCULAR VOLUME 99.6 fl (80.0-96.0); MONO # 0.5 10^3/uL (0.0-0.8); MONO % 10.7 % (2.0-8.0); NEUTROPHILS # 2.3 10^3/uL (1.5-8.5); NEUTROPHILS % 49.9 % (36.0-66.0); PLATELET COUNT, AUTOMATED 190 10^3/uL (150-450); RED BLOOD COUNT 2.39 10^6/uL (4.00-5.40); WHITE BLOOD COUNT 4.7 10^3/uL (4.0-10.0)
[2023-12-04 19:32] LABS: ALBUMIN 3.5 G/DL (3.2-5.2); BILIRUBIN,TOTAL 0.3 MG/DL (0.3-1.2); CALCIUM LEVEL 9.4 MG/DL (8.3-10.6); CREATININE FOR GFR 1.73 MG/DL (0.55-1.30); GLOMERULAR FILTRATION RATE 31.4 (>45); TOTAL PROTEIN 5.7 G/DL (5.7-8.2)
== END ==
LOC: M LAB REF 15:24
PROVIDERS: ATTEND Internal Medicine
DX: Z94.81 Bone marrow transplant status (principal); D89.811 Chronic graft-versus-host disease

== ENCOUNTER → 2023-12-07 | Outpatient (REF) | payer MEDICARE, OTHER | LOC: M LAB REF 17:28 | PROVIDERS: ATTEND Internal Medicine Nephrology | DX: D61.9 Aplastic anemia, unspecified (principal) ==

== ENCOUNTER → 2023-12-09 | Outpatient (CLI) | payer MEDICARE, OTHER | LOC: M LAB 10:23 | PROVIDERS: ATTEND Internal Medicine Nephrology | DX: D61.9 Aplastic anemia, unspecified (principal) ==

== ENCOUNTER 2023-12-11 08:20 | Outpatient (CLI) | payer MEDICARE, OTHER ==
[2023-12-11] VITALS (7 sets, daily range): BP systolic 119–154; BP diastolic 63–80; TEMP 96.7–98; O2SAT 95–100
[~2023-12-11] VITALS: Ht 157.5 cm; Wt 63.4 kg
[~2023-12-11 08:20] MED LIST changes: -ASPI-161 PO; +ASPI-615 PO; -HYDR-3910 PO; +HYDR25TA87 PO; +LABE100T40 PO; -LABE100T71 PO; +LABE300T28 PO; -LABE300T55 PO; -LIDO15SO PO; -LIDO15SO2 SSP; +LIDO15SO8 PO; +LIDO15SO9 SSP; +NS 250 ML IV ONE; -OXYB5TAB11 PO; +OXYB5TAB14 PO
[2023-12-11] MEDS: SODIUM CHLORIDE 0.9% INJ 10 ML SYR IV SCH (14:35)
== END 2023-12-11 14:45 ==
LOC: M INFU 08:20
PROVIDERS: ATTEND Internal Medicine Nephrology
DX: D61.9 Aplastic anemia, unspecified (principal); Z88.1 Allergy status to other antibiotic agents; Z88.8 Allergy status to other drugs, medicaments and biological substances; Z91.041 Radiographic dye allergy status
CPT/HCPCS: 36430; P9016

== ENCOUNTER → 2024-01-08 | Outpatient (CLI) | payer MEDICARE, OTHER ==
[~2024-01-08] MED LIST changes: -LABE100T40 PO; +LABE100T71 PO; +LIDO15SO PO; +LIDO15SO2 SSP; -LIDO15SO8 PO; -LIDO15SO9 SSP; -NS 250 ML IV ONE
[2024-01-08 13:41] LABS: BASO % 0.2 % (0.0-1.0); EOS # 0.1 10^3/uL (0.0-0.5); EOS % 1.8 % (0.0-3.0); HEMOGLOBIN 7.2 g/dl (12.0-15.5); LYMPH # 1.5 10^3/uL (1.5-5.0); LYMPH % 33.3 % (24.0-44.0); MEAN CORPUSCULAR HEMOGLOBIN 34.4 pg (27.0-33.0); MEAN CORPUSCULAR HGB CONC 34.3 g/dl (32.0-36.5); MEAN CORPUSCULAR VOLUME 100.5 fl (80.0-96.0); MONO # 0.6 10^3/uL (0.0-0.8); MONO % 12.8 % (2.0-8.0); NEUTROPHILS # 2.3 10^3/uL (1.5-8.5); NEUTROPHILS % 51.7 % (36.0-66.0); PLATELET COUNT, AUTOMATED 172 10^3/uL (150-450); RED BLOOD COUNT 2.09 10^6/uL (4.00-5.40); WHITE BLOOD COUNT 4.4 10^3/uL (4.0-10.0)
[2024-01-08 14:10] LABS: ALBUMIN 3.5 G/DL (3.2-5.2); BILIRUBIN,TOTAL 0.3 MG/DL (0.3-1.2); CALCIUM LEVEL 8.7 MG/DL (8.3-10.6); CREATININE FOR GFR 1.77 MG/DL (0.55-1.30); GLOMERULAR FILTRATION RATE 30.6 (>45); POTASSIUM SERUM 3.3 MMOL/L (3.5-5.1); TOTAL PROTEIN 5.5 G/DL (5.7-8.2)
== END ==
LOC: M LAB 12:58
PROVIDERS: ATTEND Nurse Practitioner Family
DX: Z94.81 Bone marrow transplant status (principal)

== ENCOUNTER → 2024-01-22 | Outpatient (CLI) | payer MEDICARE, OTHER ==
[~2024-01-22] MED LIST changes: +LABE100T40 PO; -LABE100T71 PO; -LIDO15SO PO; -LIDO15SO2 SSP; +LIDO15SO8 PO; +LIDO15SO9 SSP
[2024-01-22 12:41] LABS: BASO % 0.4 % (0.0-1.0); EOS # 0.1 10^3/uL (0.0-0.5); EOS % 1.5 % (0.0-3.0); HEMATOCRIT 22.2 % (36.0-47.0); HEMOGLOBIN 7.5 g/dl (12.0-15.5); LYMPH # 1.6 10^3/uL (1.5-5.0); MEAN CORPUSCULAR HEMOGLOBIN 34.7 pg (27.0-33.0); MEAN CORPUSCULAR HGB CONC 33.8 g/dl (32.0-36.5); MEAN CORPUSCULAR VOLUME 102.8 fl (80.0-96.0); MONO # 0.7 10^3/uL (0.0-0.8); MONO % 13.4 % (2.0-8.0); NEUTROPHILS # 2.8 10^3/uL (1.5-8.5); NEUTROPHILS % 53.3 % (36.0-66.0); PLATELET COUNT, AUTOMATED 191 10^3/uL (150-450); RED BLOOD COUNT 2.16 10^6/uL (4.00-5.40); WHITE BLOOD COUNT 5.3 10^3/uL (4.0-10.0)
[2024-01-22 12:53] LABS: ALBUMIN 3.7 G/DL (3.2-5.2); BILIRUBIN,TOTAL 0.2 MG/DL (0.3-1.2); CALCIUM LEVEL 9.4 MG/DL (8.3-10.6); CREATININE FOR GFR 1.84 MG/DL (0.55-1.30); GLOMERULAR FILTRATION RATE 29.2 (>45); POTASSIUM SERUM 3.8 MMOL/L (3.5-5.1); TOTAL PROTEIN 5.8 G/DL (5.7-8.2)
== END ==
LOC: M LAB 12:07
PROVIDERS: ATTEND Nurse Practitioner Family
DX: Z94.81 Bone marrow transplant status (principal)

== ENCOUNTER 2024-02-27 17:51 | Inpatient (IN) | payer MEDICARE, OTHER ==
[~2024-02-27] VITALS: Ht 165.1 cm; Wt 67.0 kg
[2024-02-27 18:47] LABS: BASO % 0.3 % (0.0-1.0); EOS # 0.1 10^3/uL (0.0-0.5); EOS % 1.7 % (0.0-3.0); HEMATOCRIT 22.4 % (36.0-47.0); HEMOGLOBIN 7.8 g/dl (12.0-15.5); LYMPH # 1.2 10^3/uL (1.5-5.0); LYMPH % 16.9 % (24.0-44.0); MEAN CORPUSCULAR HEMOGLOBIN 36.4 pg (27.0-33.0); MEAN CORPUSCULAR HGB CONC 34.8 g/dl (32.0-36.5); MEAN CORPUSCULAR VOLUME 104.7 fl (80.0-96.0); MONO # 0.5 10^3/uL (0.0-0.8); MONO % 6.9 % (2.0-8.0); NEUTROPHILS # 5.3 10^3/uL (1.5-8.5); NEUTROPHILS % 73.9 % (36.0-66.0); PLATELET COUNT, AUTOMATED 224 10^3/uL (150-450); RED BLOOD COUNT 2.14 10^6/uL (4.00-5.40); WHITE BLOOD COUNT 7.1 10^3/uL (4.0-10.0)
[2024-02-27 19:12] LABS: BLOOD UREA NITROGEN 64 MG/DL (9-23); CALCIUM LEVEL 9.3 MG/DL (8.3-10.6); CARBON DIOXIDE LEVEL 27 MMOL/L (20-31); CHLORIDE LEVEL 103 MMOL/L (98-107); CREATININE FOR GFR 1.95 MG/DL (0.55-1.30); GLOMERULAR FILTRATION RATE 27.3 (>45); GLUCOSE, FASTING 86 MG/DL (74-106); SODIUM LEVEL 139 MMOL/L (136-145)
[2024-02-27 19:31] LABS: INR 1.73; PARTIAL THROMBOPLASTIN TIME 34.6 SECONDS (24.8-34.2); PROTHROMBIN TIME 19.7 SECONDS (12.5-14.5)
[2024-02-27 19:56] LABS: ALBUMIN 3.8 G/DL (3.2-5.2); ALKALINE PHOSPHATASE 121 U/L (46-116); ALT/SGPT 57 U/L (7.0-40); AST/SGOT 70 U/L (<34); BILIRUBIN,DIRECT < 0.1 MG/DL (<0.4); BILIRUBIN,TOTAL 0.2 MG/DL (0.3-1.2); CK-MB VALUE MASS 4.4 NG/ML (<3.6); CPK CREATINE PHOSPHOKINASE 226 U/L (34-145); MB/CK RELATIVE INDEX 1.94 (< OR =4); TOTAL PROTEIN 6.1 G/DL (5.7-8.2)
[2024-02-27] MEDS ORDERED: PRAM0.123 PO (20:02)
[2024-02-27] MEDS ORDERED: TORS20TA2 PO (20:03)
[2024-02-27] MEDS ORDERED: THERTAB19 PO (20:07)
[2024-02-27] MEDS ORDERED: DOCU100C16 PO (20:10)
[2024-02-27] MEDS ORDERED: HOME MED LIST COMPLETE! XX SCH (20:10)
[2024-02-27] MEDS ORDERED: TRIA1CR80 TOP (20:10)
[2024-02-27] MEDS: ACETAMINOPHEN TAB 650MG DOSE (2X325MG) PO ONE (20:12)
[2024-02-27 20:42] LABS: CK-MB VALUE MASS 4.8 NG/ML (<3.6)
[2024-02-27 20:45] LABS: MB/CK RELATIVE INDEX 2.4 (< OR =4)
[2024-02-27 20:59] LABS: APPEARANCE, URINE CLEAR (CLEAR); BACTERIA, URINE AUTO 3+ (NEGATIVE); BILIRUBIN, URINE AUTO NEGATIVE (NEGATIVE); BLOOD, URINE BLOOD 2+ (NEGATIVE); COLOR, URINE YELLOW (YELLOW); GLUCOSE, URINE (UA) AUTO NEGATIVE (NEGATIVE); KETONE, URINE AUTO NEGATIVE (NEGATIVE); LEUKOCYTE ESTERASE, URINE AUTO 1+ (NEGATIVE); MUCUS, URINE SMALL (NEGATIVE); NITRITE, URINE AUTO POSITIVE (NEGATIVE); PROTEIN, URINE AUTO 2+ mg/dL (NEGATIVE); RBC, URINE AUTO 29 /HPF (0-3); SPECIFIC GRAVITY URINE AUTO 1.009 (1.002-1.035); SQUAMOUS EPITHELIAL CELL UR AU 0 /HPF (0-6); TRANSITIONAL EPITHELIAL AUTO <1 /HPF; UROBILINOGEN, URINE AUTO 0.2 mg/dL (0.0-2.0); WBC, URINE AUTO 59 /HPF (0-3)
[2024-02-27] MEDS: cefTRIAXone SOD 2 GM in D5W MINI-BAG PLUS 50 ML IV ONE (21:05)
[2024-02-27] MEDS ORDERED: ONDANSETRON 4MG 2ML VIAL IV PRN (22:00)
[2024-02-27] MEDS ORDERED: ALBUTEROL SULFATE 2.5MG/0.5ML INH NEB SOLN INH PRN (22:00)
[2024-02-27] MEDS: NS 1,000 ML IV SCH (22:02)
[2024-02-27] MEDS: IBUPROFEN 600MG TAB PO ONE (22:02)
[2024-02-27] MEDS: NS 500 ML IV ONE (23:13)
[2024-02-27] MEDS: GABAPENTIN 300 MG CAP PO SCH (23:13)
[2024-02-27] MEDS: METOPROLOL TART 25 MG TABLET PO ONE (23:14)
[2024-02-27] MEDS: ERTAPENEM SODIUM 1 GM in NS MINI-BAG PLUS 50 ML IV SCH (23:14)
[2024-02-27] MEDS: APIXABAN 5 MG TAB (ELIQUIS) PO SCH (23:14)
[2024-02-28] VITALS (12 sets, daily range): BP systolic 109–162; BP diastolic 56–85; TEMP 98.1–99.9; O2SAT 90–98
[2024-02-28] MEDS: ACYCLOVIR 200 MG CAPSULE PO SCH (00:17)
[2024-02-28] MEDS: SERTRALINE HCL 50 MG TAB PO SCH (00:17)
[2024-02-28] MEDS: PRAMIPEXOLE (MIRAPEX) 0.125 MG TAB PO SCH (03:09)
[2024-02-28 06:02] LABS: CALCIUM LEVEL 8.4 MG/DL (8.3-10.6); CREATININE FOR GFR 1.88 MG/DL (0.55-1.30); GLOMERULAR FILTRATION RATE 28.5 (>45); POTASSIUM SERUM 3.3 MMOL/L (3.5-5.1)
[2024-02-28] MEDS: DIGOXIN 0.0625MG PER 1/2TABLET PO SCH (08:34)
[2024-02-28] MEDS: ACETAMINOPHEN TAB 650MG DOSE (2X325MG) PO PRN (08:34)
[2024-02-28] MEDS: HYDROXYCHLOROQUINE 200 MG TAB PO SCH (08:34)
[2024-02-28] MEDS: allopurinoL 100 MG TAB PO SCH (08:34)
[2024-02-28] MEDS: METOPROLOL SUCC (TopROL XL) 50MG **XL** TAB PO SCH (08:35)
[2024-02-28] MEDS: BACTRIM 160MG/800MG DS TAB PO SCH (08:35)
[2024-02-28] MEDS: POTASSIUM CHLORIDE 10MEQ SR TABLET PO ONE (14:27)
[2024-02-28] MEDS: CYCLOBENZAPRINE 10MG TABLET PO ONE (14:27)
[2024-02-28 14:45] LABS: HEMOGLOBIN 8.5 g/dl (12.0-15.5); MEAN CORPUSCULAR HEMOGLOBIN 33.7 pg (27.0-33.0); MEAN CORPUSCULAR VOLUME 99.2 fl (80.0-96.0); PLATELET COUNT, AUTOMATED 153 10^3/uL (150-450); RED BLOOD COUNT 2.52 10^6/uL (4.00-5.40); WHITE BLOOD COUNT 7.7 10^3/uL (4.0-10.0)
[2024-02-28] MEDS: oxyBUTYnin *DITROPAN XL* 5 MG TABCR PO SCH (20:35)
[2024-02-28] MEDS: APIXABAN 5 MG TAB (ELIQUIS) PO SCH (20:36)
[2024-02-28] MEDS: MONTELUKAST 10 MG TAB PO SCH (20:36)
[2024-02-28] MEDS: ERTAPENEM SODIUM 500 MG in NS 50 ML IV SCH (23:52)
[2024-02-29 00:06] VITALS: BP 136/77; TEMP 97.1; O2SAT 93
[2024-02-29 04:24] VITALS: BP 139/70; TEMP 98.5; O2SAT 90
[2024-02-29 05:40] LABS: BASO % 0.2 % (0.0-1.0); EOS # 0.1 10^3/uL (0.0-0.5); EOS % 1.7 % (0.0-3.0); HEMATOCRIT 23.5 % (36.0-47.0); HEMOGLOBIN 8.1 g/dl (12.0-15.5); LYMPH % 18.2 % (24.0-44.0); MEAN CORPUSCULAR HEMOGLOBIN 33.9 pg (27.0-33.0); MEAN CORPUSCULAR HGB CONC 34.5 g/dl (32.0-36.5); MEAN CORPUSCULAR VOLUME 98.3 fl (80.0-96.0); MONO # 0.5 10^3/uL (0.0-0.8); MONO % 9.5 % (2.0-8.0); NEUTROPHILS # 3.8 10^3/uL (1.5-8.5); NEUTROPHILS % 70.2 % (36.0-66.0); PLATELET COUNT, AUTOMATED 141 10^3/uL (150-450); RED BLOOD COUNT 2.39 10^6/uL (4.00-5.40); WHITE BLOOD COUNT 5.4 10^3/uL (4.0-10.0)
[2024-02-29 06:07] LABS: CALCIUM LEVEL 8.2 MG/DL (8.3-10.6); CREATININE FOR GFR 1.8 MG/DL (0.55-1.30); POTASSIUM SERUM 3.2 MMOL/L (3.5-5.1)
[2024-02-29 07:30] VITALS: BP 154/67; TEMP 100.4; O2SAT 95
[2024-02-29] MEDS: FOLIC ACID 1MG TAB PO SCH (08:57)
[2024-02-29] MEDS: POTASSIUM CHLORIDE 10MEQ SR TABLET PO ONE (08:57)
[2024-02-29 12:03] VITALS: BP 148/75; TEMP 98.1; O2SAT 97
[2024-02-29] MEDS: ULTRACET TAB PO PRN (12:10)
[2024-02-29] MEDS: RUXOLITINIB 5 MG PO SCH (14:43)
[2024-02-29 16:59] VITALS: BP 138/71; TEMP 98.1; O2SAT 98
[2024-02-29] MEDS: CREON-12 CAPSULE PO SCH (18:00)
[2024-02-29] MEDS: CREON-24 CAPSULE PO SCH (18:00)
[2024-02-29] MEDS: TORSEMIDE 20 MG TAB PO SCH (19:00)
[2024-02-29 20:07] VITALS: BP 154/78; TEMP 97; O2SAT 96
[2024-02-29] MEDS: PRAMIPEXOLE 0.25 MG TAB PO SCH (20:29)
[2024-02-29] MEDS ORDERED: NON-FORMULARY 1 EA EA PO SCH (21:00)
[2024-02-29] MEDS ORDERED: TORSEMIDE 20 MG TAB PO SCH (21:00)
[2024-03-01 04:02] VITALS: BP 140/74; TEMP 97.6; O2SAT 99
[2024-03-01 05:45] LABS: BASO % 0.3 % (0.0-1.0); EOS # 0.1 10^3/uL (0.0-0.5); EOS % 2.2 % (0.0-3.0); HEMATOCRIT 22.9 % (36.0-47.0); HEMOGLOBIN 7.7 g/dl (12.0-15.5); LYMPH # 1.5 10^3/uL (1.5-5.0); LYMPH % 42.4 % (24.0-44.0); MEAN CORPUSCULAR HEMOGLOBIN 33.3 pg (27.0-33.0); MEAN CORPUSCULAR HGB CONC 33.6 g/dl (32.0-36.5); MEAN CORPUSCULAR VOLUME 99.1 fl (80.0-96.0); MONO # 0.6 10^3/uL (0.0-0.8); MONO % 16.1 % (2.0-8.0); NEUTROPHILS # 1.4 10^3/uL (1.5-8.5); PLATELET COUNT, AUTOMATED 138 10^3/uL (150-450); RED BLOOD COUNT 2.31 10^6/uL (4.00-5.40); WHITE BLOOD COUNT 3.6 10^3/uL (4.0-10.0)
[2024-03-01 06:15] LABS: CALCIUM LEVEL 8.6 MG/DL (8.3-10.6); CREATININE FOR GFR 1.7 MG/DL (0.55-1.30); POTASSIUM SERUM 3.5 MMOL/L (3.5-5.1)
[2024-03-01 07:41] VITALS: BP 163/80; TEMP 98.3; O2SAT 91
[2024-03-01] MEDS: TORSEMIDE 20 MG TAB PO SCH (09:14)
[2024-03-01 11:46] VITALS: BP 159/87; TEMP 98.3; O2SAT 94
[2024-03-01] MEDS: ERTAPENEM SODIUM 1 GM in NS MINI-BAG PLUS 50 ML IV SCH (18:33)
[2024-03-01 18:58] VITALS: BP 162/88; TEMP 97.6; O2SAT 96
[2024-03-01 19:13] VITALS: BP 165/90; TEMP 97.8; O2SAT 97
[2024-03-01 21:30] VITALS: BP 148/87; TEMP 98.2; O2SAT 98
[2024-03-02 04:09] VITALS: BP 162/81; TEMP 98; O2SAT 92
[2024-03-02 05:54] LABS: BASO % 0.6 % (0.0-1.0); EOS # 0.1 10^3/uL (0.0-0.5); EOS % 2.5 % (0.0-3.0); HEMATOCRIT 26.5 % (36.0-47.0); HEMOGLOBIN 8.9 g/dl (12.0-15.5); LYMPH # 1.3 10^3/uL (1.5-5.0); LYMPH % 37.6 % (24.0-44.0); MEAN CORPUSCULAR HEMOGLOBIN 33.8 pg (27.0-33.0); MEAN CORPUSCULAR HGB CONC 33.6 g/dl (32.0-36.5); MEAN CORPUSCULAR VOLUME 100.8 fl (80.0-96.0); MONO # 0.5 10^3/uL (0.0-0.8); MONO % 14.4 % (2.0-8.0); NEUTROPHILS # 1.6 10^3/uL (1.5-8.5); NEUTROPHILS % 44.3 % (36.0-66.0); PLATELET COUNT, AUTOMATED 143 10^3/uL (150-450); RED BLOOD COUNT 2.63 10^6/uL (4.00-5.40); WHITE BLOOD COUNT 3.5 10^3/uL (4.0-10.0)
[2024-03-02 06:21] LABS: CALCIUM LEVEL 9.1 MG/DL (8.3-10.6); CREATININE FOR GFR 1.55 MG/DL (0.55-1.30); GLOMERULAR FILTRATION RATE 35.6 (>45); POTASSIUM SERUM 3.5 MMOL/L (3.5-5.1)
[2024-03-02 07:54] VITALS: BP 166/87; TEMP 98.2; O2SAT 90
[2024-03-02 12:12] VITALS: BP 167/80; TEMP 97.9; O2SAT 93
[2024-03-02 18:00] VITALS: BP 165/98; TEMP 97.7; O2SAT 99
[2024-03-02 20:35] VITALS: BP 139/85; TEMP 97.7; O2SAT 96
[2024-03-02] MEDS: CYCLOBENZAPRINE 10MG TABLET PO PRN (20:52)
[2024-03-03 05:00] VITALS: BP 146/86; TEMP 97.3; O2SAT 96
[2024-03-03] MEDS ORDERED: PRAM0.252 PO (07:40)
[2024-03-03] MEDS ORDERED: CYCL10TA20 PO (07:40)
[2024-03-03 08:09] VITALS: BP 159/97
== END 2024-03-03 09:59 | disposition home or self-care (01) | DRG 690 ==
LOC: M ED 17:51 → M ED INP 22:00 → M PCU 02-28 00:25 → M MSPAV 03-02 16:44
PROVIDERS: ADMIT Internal Medicine; ATTEND Internal Medicine Nephrology
PROC: 30233N1 Transfusion of Nonautologous Red Blood Cells into Peripheral Vein, Percutaneous Approach (ICD-10-PCS; principal; 2024-02-27)
DX: N39.0 Urinary tract infection, site not specified (principal); D75.81 Myelofibrosis; Z94.84 Stem cells transplant status; I50.22 Chronic systolic (congestive) heart failure; I13.0 Hypertensive heart and chronic kidney disease with heart failure and stage 1 through stage 4 chronic kidney disease, or unspecified chronic kidney disease; N18.4 Chronic kidney disease, stage 4 (severe); D61.818 Other pancytopenia; I48.91 Unspecified atrial fibrillation; M79.7 Fibromyalgia; M32.9 Systemic lupus erythematosus, unspecified; M10.9 Gout, unspecified; J45.909 Unspecified asthma, uncomplicated; G25.81 Restless legs syndrome; D63.1 Anemia in chronic kidney disease; R74.01 Elevation of levels of liver transaminase levels; G24.01 Drug induced subacute dyskinesia; E87.6 Hypokalemia; I27.20 Pulmonary hypertension, unspecified; E11.22 Type 2 diabetes mellitus with diabetic chronic kidney disease; E11.40 Type 2 diabetes mellitus with diabetic neuropathy, unspecified; N32.81 Overactive bladder; N39.41 Urge incontinence; D47.3 Essential (hemorrhagic) thrombocythemia; G47.61 Periodic limb movement disorder; F41.9 Anxiety disorder, unspecified; K86.89 Other specified diseases of pancreas; K21.9 Gastro-esophageal reflux disease without esophagitis; F32.A Depression, unspecified; B96.1 Klebsiella pneumoniae [K. pneumoniae] as the cause of diseases classified elsewhere; Z79.01 Long term (current) use of anticoagulants; Z90.49 Acquired absence of other specified parts of digestive tract; Z79.899 Other long term (current) drug therapy; Z88.1 Allergy status to other antibiotic agents; Z88.8 Allergy status to other drugs, medicaments and biological substances; Z91.018 Allergy to other foods; Z91.02 Food additives allergy status; T50.905A Adverse effect of unspecified drugs, medicaments and biological substances, initial encounter

== ENCOUNTER → 2024-03-12 | Outpatient (CLI) | payer MEDICARE, OTHER ==
[~2024-03-12] MED LIST changes: +PRAM0.123 PO; +PRAM0.252 PO; +THERTAB19 PO; +TRIA1CR80 TOP
[2024-03-12 10:27] LABS: BASO % 0.6 % (0.0-1.0); EOS # 0.1 10^3/uL (0.0-0.5); EOS % 2.5 % (0.0-3.0); HEMATOCRIT 30.6 % (36.0-47.0); HEMOGLOBIN 10.2 g/dl (12.0-15.5); LYMPH # 1.6 10^3/uL (1.5-5.0); LYMPH % 30.9 % (24.0-44.0); MEAN CORPUSCULAR HEMOGLOBIN 33.7 pg (27.0-33.0); MEAN CORPUSCULAR HGB CONC 33.3 g/dl (32.0-36.5); MONO # 0.6 10^3/uL (0.0-0.8); MONO % 11.3 % (2.0-8.0); NEUTROPHILS # 2.8 10^3/uL (1.5-8.5); NEUTROPHILS % 54.5 % (36.0-66.0); PLATELET COUNT, AUTOMATED 185 10^3/uL (150-450); RED BLOOD COUNT 3.03 10^6/uL (4.00-5.40); WHITE BLOOD COUNT 5.2 10^3/uL (4.0-10.0)
[2024-03-12 10:49] LABS: ALBUMIN 3.1 G/DL (3.2-5.2); BILIRUBIN,TOTAL 0.2 MG/DL (0.3-1.2); CALCIUM LEVEL 9.1 MG/DL (8.3-10.6); CREATININE FOR GFR 1.81 MG/DL (0.55-1.30); GLOMERULAR FILTRATION RATE 29.8 (>45); TOTAL PROTEIN 5.6 G/DL (5.7-8.2)
== END ==
LOC: M LAB 09:11
PROVIDERS: ATTEND Nurse Practitioner Family
DX: Z94.81 Bone marrow transplant status (principal)

== ENCOUNTER → 2024-04-04 | Outpatient (CLI) | payer MEDICARE, OTHER ==
[2024-04-04 12:43] LABS: BASO % 0.2 % (0.0-1.0); EOS # 0.1 10^3/uL (0.0-0.5); EOS % 0.9 % (0.0-3.0); HEMATOCRIT 29.1 % (36.0-47.0); LYMPH # 1.4 10^3/uL (1.5-5.0); LYMPH % 22.2 % (24.0-44.0); MEAN CORPUSCULAR HEMOGLOBIN 34.7 pg (27.0-33.0); MEAN CORPUSCULAR HGB CONC 34.4 g/dl (32.0-36.5); MONO # 0.7 10^3/uL (0.0-0.8); MONO % 10.6 % (2.0-8.0); NEUTROPHILS # 4.2 10^3/uL (1.5-8.5); NEUTROPHILS % 65.9 % (36.0-66.0); PLATELET COUNT, AUTOMATED 171 10^3/uL (150-450); RED BLOOD COUNT 2.88 10^6/uL (4.00-5.40); WHITE BLOOD COUNT 6.3 10^3/uL (4.0-10.0)
[2024-04-04 13:07] LABS: ALBUMIN 3.8 G/DL (3.2-5.2); BILIRUBIN,TOTAL 0.3 MG/DL (0.3-1.2); CALCIUM LEVEL 9.7 MG/DL (8.3-10.6); CREATININE FOR GFR 1.86 MG/DL (0.55-1.30); GLOMERULAR FILTRATION RATE 28.8 (>45); POTASSIUM SERUM 3.6 MMOL/L (3.5-5.1)
== END ==
LOC: M LAB 11:52
PROVIDERS: ATTEND Nurse Practitioner Family
DX: Z94.81 Bone marrow transplant status (principal)

== ENCOUNTER → 2024-04-30 | Outpatient (CLI) | payer MEDICARE, OTHER ==
[~2024-04-30] MED LIST changes: +ONDA-282 PO; -ONDA4TAB6 PO
[2024-04-30 10:03] LABS: BASO % 0.3 % (0.0-1.0); EOS # 0.1 10^3/uL (0.0-0.5); HEMATOCRIT 24.7 % (36.0-47.0); HEMOGLOBIN 8.3 g/dl (12.0-15.5); LYMPH # 1.3 10^3/uL (1.5-5.0); LYMPH % 22.3 % (24.0-44.0); MEAN CORPUSCULAR HEMOGLOBIN 34.2 pg (27.0-33.0); MEAN CORPUSCULAR HGB CONC 33.6 g/dl (32.0-36.5); MEAN CORPUSCULAR VOLUME 101.6 fl (80.0-96.0); MONO # 0.5 10^3/uL (0.0-0.8); MONO % 9.1 % (2.0-8.0); PLATELET COUNT, AUTOMATED 216 10^3/uL (150-450); RED BLOOD COUNT 2.43 10^6/uL (4.00-5.40); WHITE BLOOD COUNT 5.9 10^3/uL (4.0-10.0)
[2024-04-30 10:30] LABS: ALBUMIN 3.4 G/DL (3.2-5.2); BILIRUBIN,TOTAL 0.3 MG/DL (0.3-1.2); CREATININE FOR GFR 2.11 MG/DL (0.55-1.30); GLOMERULAR FILTRATION RATE 24.9 (>45); POTASSIUM SERUM 3.4 MMOL/L (3.5-5.1); TOTAL PROTEIN 5.8 G/DL (5.7-8.2)
== END ==
LOC: M LAB 09:33
PROVIDERS: ATTEND Nurse Practitioner Family
DX: Z94.81 Bone marrow transplant status (principal)

== ENCOUNTER → 2024-05-07 | Outpatient (REF) | payer MEDICARE, OTHER ==
[~2024-05-07] MED LIST changes: +TRAM-443 PO; -TRAM37.53 PO
[2024-05-07 14:11] LABS: APPEARANCE, URINE CLOUDY (CLEAR); BACTERIA, URINE AUTO 3+ (NEGATIVE); BILIRUBIN, URINE AUTO NEGATIVE (NEGATIVE); BLOOD, URINE BLOOD 2+ (NEGATIVE); COLOR, URINE YELLOW (YELLOW); GLUCOSE, URINE (UA) AUTO NEGATIVE (NEGATIVE); KETONE, URINE AUTO NEGATIVE (NEGATIVE); LEUKOCYTE ESTERASE, URINE AUTO 3+ (NEGATIVE); MUCUS, URINE SMALL (NEGATIVE); NITRITE, URINE AUTO NEGATIVE (NEGATIVE); PROTEIN, URINE AUTO 2+ mg/dL (NEGATIVE); RBC, URINE AUTO 59 /HPF (0-3); SQUAMOUS EPITHELIAL CELL UR AU 0 /HPF (0-6); UROBILINOGEN, URINE AUTO 0.2 mg/dL (0.0-2.0); WBC, URINE AUTO TNTC /HPF (0-3)
== END ==
LOC: M SFHCPLAZ 12:53
PROVIDERS: ATTEND Internal Medicine Infectious Disease
DX: N39.0 Urinary tract infection, site not specified (principal)

== ENCOUNTER 2024-05-13 15:00 | Outpatient (CLI) | payer MEDICARE, OTHER ==
[~2024-05-13] VITALS: Ht 165.1 cm; Wt 64.5 kg
[~2024-05-13 15:00] MED LIST changes: -BYST10TA2 PO; +BYST1TAB3 PO; +REPA0.5T2 PO; -REPA1TAB3 PO; -TRAM-443 PO; +TRAM1TAB42 PO
[2024-05-13 15:05] VITALS: BP 134/68; O2SAT 98
[2024-05-13] MEDS: ERTAPENEM SODIUM 500 MG in NS 50 ML IV SCH (15:49)
[2024-05-13] MEDS: SODIUM CHLORIDE 0.9% INJ 10 ML SYR IV PRN (16:29)
[2024-07-11] MEDS ORDERED: GABA-1171 (10:02)
[2024-07-16] MEDS ORDERED: LASI40TA9 PO (13:11)
== END 2024-05-13 16:30 ==
LOC: M INFU 15:00
PROVIDERS: ATTEND Internal Medicine Infectious Disease
DX: N39.0 Urinary tract infection, site not specified (principal); B96.1 Klebsiella pneumoniae [K. pneumoniae] as the cause of diseases classified elsewhere; Z16.12 Extended spectrum beta lactamase (ESBL) resistance; Z88.1 Allergy status to other antibiotic agents; Z88.8 Allergy status to other drugs, medicaments and biological substances; Z91.041 Radiographic dye allergy status; Z91.89 Other specified personal risk factors, not elsewhere classified; Z94.81 Bone marrow transplant status
CPT/HCPCS: 36415; 80053; 85025; 96365; J1335

== ENCOUNTER → 2024-05-13 | Outpatient (CLI) | payer MEDICARE, OTHER ==
[2024-05-13 10:53] LABS: BASO % 0.3 % (0.0-1.0); EOS # 0.1 10^3/uL (0.0-0.5); HEMATOCRIT 28.5 % (36.0-47.0); HEMOGLOBIN 9.6 g/dl (12.0-15.5); LYMPH # 1.2 10^3/uL (1.5-5.0); LYMPH % 29.5 % (24.0-44.0); MEAN CORPUSCULAR HEMOGLOBIN 33.7 pg (27.0-33.0); MEAN CORPUSCULAR HGB CONC 33.7 g/dl (32.0-36.5); MONO # 0.6 10^3/uL (0.0-0.8); MONO % 14.4 % (2.0-8.0); NEUTROPHILS # 2.1 10^3/uL (1.5-8.5); NEUTROPHILS % 53.5 % (36.0-66.0); PLATELET COUNT, AUTOMATED 173 10^3/uL (150-450); RED BLOOD COUNT 2.85 10^6/uL (4.00-5.40)
[2024-05-13 11:26] LABS: ALBUMIN 3.6 G/DL (3.2-5.2); BILIRUBIN,TOTAL 0.3 MG/DL (0.3-1.2); CALCIUM LEVEL 9.1 MG/DL (8.3-10.6); CREATININE FOR GFR 1.72 MG/DL (0.55-1.30); GLOMERULAR FILTRATION RATE 31.5 (>45); POTASSIUM SERUM 3.3 MMOL/L (3.5-5.1); TOTAL PROTEIN 5.7 G/DL (5.7-8.2)
== END ==
LOC: M LAB 09:53
PROVIDERS: ATTEND Nurse Practitioner Family
DX: Z94.81 Bone marrow transplant status (principal)

== ENCOUNTER 2024-05-14 14:59 | Outpatient (CLI) | payer MEDICARE, OTHER ==
[2024-05-14 15:00] VITALS: BP 140/78; O2SAT 100
[2024-05-14] MEDS: ERTAPENEM SODIUM 500 MG in NS 50 ML IV ONE (15:20)
[2024-05-14] MEDS: SODIUM CHLORIDE 0.9% INJ 10 ML SYR IV PRN (15:58)
[2024-05-14 16:00] VITALS: BP 136/78; O2SAT 97
[2024-07-11] MEDS ORDERED: GABA-1171 (10:02)
[2024-07-16] MEDS ORDERED: LASI40TA9 PO (13:11)
== END 2024-05-14 16:02 ==
LOC: M INFU 14:59
PROVIDERS: ATTEND Internal Medicine Infectious Disease
DX: N39.0 Urinary tract infection, site not specified (principal); Z16.12 Extended spectrum beta lactamase (ESBL) resistance; B96.1 Klebsiella pneumoniae [K. pneumoniae] as the cause of diseases classified elsewhere; Z88.1 Allergy status to other antibiotic agents; Z88.8 Allergy status to other drugs, medicaments and biological substances; Z91.041 Radiographic dye allergy status; Z91.89 Other specified personal risk factors, not elsewhere classified
CPT/HCPCS: 96365; J1335

== ENCOUNTER 2024-05-15 15:00 | Outpatient (CLI) | payer MEDICARE, OTHER ==
[~2024-05-15 15:00] MED LIST changes: +BYST10TA2 PO; -BYST1TAB3 PO; -REPA0.5T2 PO; +REPA1TAB3 PO; +TRAM-443 PO; -TRAM1TAB42 PO
[2024-05-15] MEDS: ERTAPENEM SODIUM 500 MG in NS 50 ML IV ONE (15:10)
[2024-05-15] MEDS: SODIUM CHLORIDE 0.9% INJ 10 ML SYR IV PRN (15:11)
[2024-05-15 15:51] VITALS: BP 130/70; O2SAT 99
== END 2024-05-15 15:55 ==
LOC: M INFU 15:00
PROVIDERS: ATTEND Internal Medicine Infectious Disease
DX: Z16.12 Extended spectrum beta lactamase (ESBL) resistance (principal); B96.1 Klebsiella pneumoniae [K. pneumoniae] as the cause of diseases classified elsewhere; Z88.8 Allergy status to other drugs, medicaments and biological substances; Z88.1 Allergy status to other antibiotic agents; Z91.89 Other specified personal risk factors, not elsewhere classified; Z91.041 Radiographic dye allergy status
CPT/HCPCS: 96365; J1335

== ENCOUNTER 2024-05-16 14:55 | Outpatient (CLI) | payer MEDICARE, OTHER ==
[2024-05-16 14:50] VITALS: BP 148/70; O2SAT 96
[2024-05-16] MEDS: SODIUM CHLORIDE 0.9% INJ 10 ML SYR IV PRN (15:12)
[2024-05-16] MEDS: ERTAPENEM SODIUM 500 MG in NS 50 ML IV SCH (15:12)
[2024-05-16 15:45] VITALS: BP 130/80; O2SAT 96
== END 2024-05-16 15:44 ==
LOC: M INFU 14:55
PROVIDERS: ATTEND Internal Medicine Infectious Disease
DX: N39.0 Urinary tract infection, site not specified (principal); B96.1 Klebsiella pneumoniae [K. pneumoniae] as the cause of diseases classified elsewhere; Z16.12 Extended spectrum beta lactamase (ESBL) resistance; Z91.041 Radiographic dye allergy status; Z91.89 Other specified personal risk factors, not elsewhere classified; Z88.1 Allergy status to other antibiotic agents; Z88.8 Allergy status to other drugs, medicaments and biological substances
CPT/HCPCS: 96365; J1335

== ENCOUNTER 2024-05-17 14:45 | Outpatient (CLI) | payer MEDICARE, OTHER ==
[~2024-05-17] VITALS: Ht 165.1 cm; Wt 64.5 kg
[2024-05-17 14:45] VITALS: BP 138/75; O2SAT 99
[2024-05-17] MEDS: ERTAPENEM SODIUM 500 MG in NS 50 ML IV SCH (15:01)
[2024-05-17] MEDS: SODIUM CHLORIDE 0.9% INJ 10 ML SYR IV SCH (15:36)
== END 2024-05-17 15:45 ==
LOC: M INFU 14:45
PROVIDERS: ATTEND Internal Medicine Infectious Disease
DX: N39.0 Urinary tract infection, site not specified (principal); Z16.12 Extended spectrum beta lactamase (ESBL) resistance; Z88.8 Allergy status to other drugs, medicaments and biological substances; Z91.018 Allergy to other foods; Z91.041 Radiographic dye allergy status
CPT/HCPCS: 96365; J1335

== ENCOUNTER → 2024-05-18 | Outpatient (CLI) | payer MEDICARE, OTHER ==
[2024-05-18 16:40] VITALS: BP 146/75; O2SAT 96
[2024-05-18] MEDS: ERTAPENEM SODIUM 500 MG in NS 50 ML IV ONE (16:51)
[2024-05-18] MEDS: SODIUM CHLORIDE 0.9% INJ 10 ML SYR IV PRN (17:27)
[2024-05-18 17:28] VITALS: BP 148/72; O2SAT 97
== END ==
LOC: M INFU 16:16
PROVIDERS: ATTEND Internal Medicine Infectious Disease
DX: N39.0 Urinary tract infection, site not specified (principal); Z16.12 Extended spectrum beta lactamase (ESBL) resistance; Z88.8 Allergy status to other drugs, medicaments and biological substances; Z91.041 Radiographic dye allergy status; Z91.018 Allergy to other foods
CPT/HCPCS: 96365; J1335

== ENCOUNTER → 2024-05-19 | Outpatient (CLI) | payer MEDICARE, OTHER ==
[2024-05-19 16:00] VITALS: BP 156/73; O2SAT 97
[2024-05-19] MEDS: ERTAPENEM SODIUM 500 MG in NS 50 ML IV ONE (16:19)
[2024-05-19] MEDS: SODIUM CHLORIDE 0.9% INJ 10 ML SYR IV PRN (16:51)
[2024-05-19 17:00] VITALS: BP 141/79; O2SAT 96
== END ==
LOC: M INFU 15:52
PROVIDERS: ATTEND Internal Medicine Infectious Disease
DX: N39.0 Urinary tract infection, site not specified (principal); Z16.12 Extended spectrum beta lactamase (ESBL) resistance; Z88.8 Allergy status to other drugs, medicaments and biological substances; Z91.018 Allergy to other foods; Z91.041 Radiographic dye allergy status
CPT/HCPCS: 96365; J1335

== ENCOUNTER → 2024-05-25 | Outpatient (CLI) | payer MEDICARE, OTHER ==
[2024-05-25 14:42] LABS: APPEARANCE, URINE CLEAR (CLEAR); BACTERIA, URINE AUTO NEGATIVE (NEGATIVE); BILIRUBIN, URINE AUTO NEGATIVE (NEGATIVE); BLOOD, URINE BLOOD 2+ (NEGATIVE); COLOR, URINE YELLOW (YELLOW); GLUCOSE, URINE (UA) AUTO NEGATIVE (NEGATIVE); KETONE, URINE AUTO NEGATIVE (NEGATIVE); LEUKOCYTE ESTERASE, URINE AUTO NEGATIVE (NEGATIVE); MUCUS, URINE SMALL (NEGATIVE); NITRITE, URINE AUTO NEGATIVE (NEGATIVE); PROTEIN, URINE AUTO 2+ mg/dL (NEGATIVE); RBC, URINE AUTO 64 /HPF (0-3); SPECIFIC GRAVITY URINE AUTO 1.011 (1.002-1.035); SQUAMOUS EPITHELIAL CELL UR AU 0 /HPF (0-6); UROBILINOGEN, URINE AUTO 0.2 mg/dL (0.0-2.0); WBC, URINE AUTO 5 /HPF (0-3)
== END ==
LOC: M LAB 13:48
PROVIDERS: ATTEND Internal Medicine Infectious Disease
DX: N39.0 Urinary tract infection, site not specified (principal)

== ENCOUNTER → 2024-05-25 | Outpatient (CLI) | payer MEDICARE, OTHER ==
[2024-05-25 14:43] LABS: BASO % 0.3 % (0.0-1.0); EOS # 0.1 10^3/uL (0.0-0.5); EOS % 1.5 % (0.0-3.0); HEMATOCRIT 26.6 % (36.0-47.0); LYMPH # 1.2 10^3/uL (1.5-5.0); LYMPH % 31.7 % (24.0-44.0); MEAN CORPUSCULAR HEMOGLOBIN 34.5 pg (27.0-33.0); MEAN CORPUSCULAR HGB CONC 33.8 g/dl (32.0-36.5); MEAN CORPUSCULAR VOLUME 101.9 fl (80.0-96.0); MONO # 0.5 10^3/uL (0.0-0.8); MONO % 13.4 % (2.0-8.0); NEUTROPHILS # 2.1 10^3/uL (1.5-8.5); NEUTROPHILS % 52.8 % (36.0-66.0); PLATELET COUNT, AUTOMATED 167 10^3/uL (150-450); RED BLOOD COUNT 2.61 10^6/uL (4.00-5.40); WHITE BLOOD COUNT 3.9 10^3/uL (4.0-10.0)
[2024-05-25 15:05] LABS: ALBUMIN 3.5 G/DL (3.2-5.2); BILIRUBIN,TOTAL 0.3 MG/DL (0.3-1.2); CALCIUM LEVEL 9.3 MG/DL (8.3-10.6); CREATININE FOR GFR 2.09 MG/DL (0.55-1.30); GLOMERULAR FILTRATION RATE 25.1 (>45); POTASSIUM SERUM 3.5 MMOL/L (3.5-5.1); TOTAL PROTEIN 5.8 G/DL (5.7-8.2)
== END ==
LOC: M LAB 13:50
PROVIDERS: ATTEND Nurse Practitioner Family
DX: N39.0 Urinary tract infection, site not specified (principal); Z94.81 Bone marrow transplant status

== ENCOUNTER 2024-06-03 09:02 | Inpatient (IN) | payer MEDICARE, OTHER ==
[~2024-06-03] VITALS: Ht 165.1 cm; Wt 96.9 kg
[2024-06-03] VITALS (10 sets, daily range): BP systolic 100–129; BP diastolic 52–62; TEMP 97.4–98.9; O2SAT 96–100
[2024-06-03] MEDS: PANTOPRAZOLE 40MG VIAL IV SCH (09:00)
[2024-06-03] MEDS: FOLIC ACID 1MG TAB PO SCH (09:00)
[2024-06-03] MEDS: METOPROLOL SUCC (TopROL XL) 50MG **XL** TAB PO SCH (09:00)
[2024-06-03] MEDS: allopurinoL 100 MG TAB PO SCH (09:00)
[2024-06-03 09:34] LABS: VENOUS BASE EXCESS -1.9 (-2.0-2.0); VENOUS HCO3 22.1 MMOL/L (23.0-27.0); VENOUS PARTIAL PRESSURE CO2 32.9 mmHg (38.0-50.0); VENOUS PARTIAL PRESSURE O2 51.5 mmHg (30.0-50.0); VENOUS PH 7.445 UNITS (7.330-7.430); VENOUS STANDARD HCO3 22.7 MMOL/L; VENOUS TOTAL CO2 23.1 MMOL/L (24.0-28.0)
[2024-06-03 09:44] LABS: EOS # 0.1 10^3/uL (0.0-0.5); EOS % 1.2 % (0.0-3.0); LYMPH # 1.4 10^3/uL (1.5-5.0); LYMPH % 34.3 % (24.0-44.0); MEAN CORPUSCULAR HEMOGLOBIN 35.1 pg (27.0-33.0); MEAN CORPUSCULAR HGB CONC 34.5 g/dl (32.0-36.5); MEAN CORPUSCULAR VOLUME 101.8 fl (80.0-96.0); MONO # 0.4 10^3/uL (0.0-0.8); MONO % 9.3 % (2.0-8.0); NEUTROPHILS # 2.3 10^3/uL (1.5-8.5); PLATELET COUNT, AUTOMATED 146 10^3/uL (150-450); RED BLOOD COUNT 1.14 10^6/uL (4.00-5.40); WHITE BLOOD COUNT 4.2 10^3/uL (4.0-10.0)
[2024-06-03 09:49] LABS: HEMATOCRIT 11.6 % (36.0-47.0)
[2024-06-03 09:55] LABS: INR 1.98; PARTIAL THROMBOPLASTIN TIME 31.1 SECONDS (24.8-34.2); PROTHROMBIN TIME 21.8 SECONDS (12.5-14.5)
[2024-06-03 10:03] LABS: ETHYL ALCOHOL (ETHANOL) 0.004 % (0.000-0.010); LIPASE 32 U/L (12-53)
[2024-06-03 10:04] LABS: AMYLASE 22 U/L (30-118)
[2024-06-03 10:05] LABS: CPK CREATINE PHOSPHOKINASE 225 U/L (34-145); DIGOXIN LEVEL 0.7 NG/ML (0.8-2.0)
[2024-06-03 10:06] LABS: CK-MB VALUE MASS 7.8 NG/ML (<3.6); MB/CK RELATIVE INDEX 3.46 (< OR =4)
[2024-06-03 10:07] LABS: ALBUMIN 2.7 G/DL (3.2-5.2); ALKALINE PHOSPHATASE 76 U/L (46-116); ALT/SGPT 32 U/L (7.0-40); AST/SGOT 29 U/L (<34); BILIRUBIN,DIRECT < 0.1 MG/DL (<0.4); BILIRUBIN,TOTAL 0.2 MG/DL (0.3-1.2); BLOOD UREA NITROGEN 83 MG/DL (9-23); CALCIUM LEVEL 8.1 MG/DL (8.3-10.6); CARBON DIOXIDE LEVEL 24 MMOL/L (20-31); CHLORIDE LEVEL 110 MMOL/L (98-107); CREATININE FOR GFR 1.89 MG/DL (0.55-1.30); GLOMERULAR FILTRATION RATE 28.2 (>45); GLUCOSE, FASTING 136 MG/DL (74-106); POTASSIUM SERUM 3.3 MMOL/L (3.5-5.1); SODIUM LEVEL 140 MMOL/L (136-145); TOTAL PROTEIN 4.1 G/DL (5.7-8.2)
[2024-06-03 10:29] LABS: MAGNESIUM LEVEL 2.1 MG/DL (1.8-2.4)
[2024-06-03 11:22] LABS: CK-MB VALUE MASS 8.6 NG/ML (<3.6)
[2024-06-03 11:23] LABS: MB/CK RELATIVE INDEX 4.15 (< OR =4)
[2024-06-03] MEDS ORDERED: METH-855 PO (12:01)
[2024-06-03] MEDS ORDERED: HOME MED LIST COMPLETE! XX SCH (12:05)
[2024-06-03] MEDS: NS 500 ML IV ONE (12:51)
[2024-06-03] MEDS: POTASSIUM CHLORIDE 10MEQ SR TABLET PO ONE (12:51)
[2024-06-03] MEDS ORDERED: METOCLOPRAMIDE INJ 10MG/2ML VIAL IV PRN (13:10)
[2024-06-03 13:37] LABS: FERRITIN 117.1 NG/ML (7.3-270.7); TOTAL 25(OH) VITAMIN D 48.2 NG/ML (20.0-100.0)
[2024-06-03 13:38] LABS: VITAMIN B12 LEVEL 816 PG/ML (211-911)
[2024-06-03] MEDS ORDERED: PROMETHAZINE 25MG/ML 1ML VIAL IV PRN (13:40)
[2024-06-03 13:43] LABS: IRON (FE) 186 UG/DL (50-170); PERCENT SATURATION 69.1 % (13.2-45.0); TOTAL IRON BINDING CAPACITY 269 UG/DL (250-425)
[2024-06-03 13:51] LABS: PROCALCITONIN 0.12 ng/ml
[2024-06-03] MEDS: [UNRECOGNIZED DRUG - REMARK] SQ ONE (17:13)
[2024-06-03] MEDS: ACETAMINOPHEN 325 MG TAB PO ONE (17:17)
[2024-06-03] MEDS: diphenhydrAMINE 25MG CAP PO ONE (17:17)
[2024-06-03] MEDS: BACTRIM 160MG/800MG DS TAB PO SCH (17:23)
[2024-06-03] MEDS: DIGOXIN 0.0625MG PER 1/2TABLET PO SCH (18:32)
[2024-06-03] MEDS: HYDROXYCHLOROQUINE 200 MG TAB PO SCH (18:32)
[2024-06-03] MEDS ORDERED: METHENAMINE HIPPURATE 1GM TABLET PO SCH (21:00)
[2024-06-03] MEDS: traZODone 50 MG TAB PO SCH (21:29)
[2024-06-03] MEDS: PRAMIPEXOLE (MIRAPEX) 0.125 MG TAB PO SCH (21:29)
[2024-06-03] MEDS: ACETAMINOPHEN TAB 650MG DOSE (2X325MG) PO PRN (21:30)
[2024-06-03] MEDS: SERTRALINE HCL 50 MG TAB PO SCH (21:30)
[2024-06-03] MEDS: POTASSIUM CHLORIDE 10MEQ SR TABLET PO SCH (21:30)
[2024-06-03] MEDS: oxyBUTYnin *DITROPAN XL* 5 MG TABCR PO SCH (21:30)
[2024-06-03] MEDS: MONTELUKAST 10 MG TAB PO SCH (21:30)
[2024-06-03] MEDS: GABAPENTIN 300 MG CAP PO SCH (21:30)
[2024-06-03] MEDS: ACYCLOVIR 200 MG CAPSULE PO SCH (21:30)
[2024-06-03 23:06] LABS: AMPHETAMINES LEVEL URINE NEGATIVE (NEGATIVE); BARBITURATES URINE NEGATIVE (NEGATIVE); BENZODIAZEPINES URINE NEGATIVE (NEGATIVE); COCAINE METABOLITE URINE NEGATIVE (NEGATIVE); METHADONE URINE NEGATIVE (NEGATIVE)
[2024-06-03 23:07] LABS: CANNABINOIDS URINE NEGATIVE (NEGATIVE); OPIATES URINE NEGATIVE (NEGATIVE); PHENCYCLIDINE URINE NEGATIVE (NEGATIVE)
[2024-06-03] MEDS: KCL 40MEQ IN D5/NS 1000ML 1,000 ML IV SCH (23:35)
[2024-06-04] VITALS (10 sets, daily range): BP systolic 101–150; BP diastolic 52–78; TEMP 97.6–98.2; O2SAT 96–99
[2024-06-04 04:16] LABS: MEAN CORPUSCULAR HEMOGLOBIN 33.3 pg (27.0-33.0); MEAN CORPUSCULAR HGB CONC 33.9 g/dl (32.0-36.5); MEAN CORPUSCULAR VOLUME 98.3 fl (80.0-96.0); PLATELET COUNT, AUTOMATED 108 10^3/uL (150-450); RED BLOOD COUNT 1.74 10^6/uL (4.00-5.40); WHITE BLOOD COUNT 3.8 10^3/uL (4.0-10.0)
[2024-06-04 04:35] LABS: ALBUMIN 2.2 G/DL (3.2-5.2); BILIRUBIN,TOTAL 0.2 MG/DL (0.3-1.2); CALCIUM LEVEL 7.2 MG/DL (8.3-10.6); CREATININE FOR GFR 1.87 MG/DL (0.55-1.30); GLOMERULAR FILTRATION RATE 28.6 (>45); MAGNESIUM LEVEL 2.2 MG/DL (1.8-2.4); POTASSIUM SERUM 3.8 MMOL/L (3.5-5.1); TOTAL PROTEIN 3.6 G/DL (5.7-8.2)
[2024-06-04 04:40] LABS: HEMATOCRIT 17.1 % (36.0-47.0); HEMOGLOBIN 5.8 g/dl (12.0-15.5)
[2024-06-04] MEDS ORDERED: JAKAFI 5 MG PO SCH ×2 (09:00)
[2024-06-04] MEDS: diphenhydrAMINE 50MG CAP PO ONE (10:27)
[2024-06-04] MEDS: CREON-12 CAPSULE (PANCRELIPASE) PO SCH (14:33)
[2024-06-04] MEDS ORDERED: ENTER DRUG NAME HERE (PATIENT'S OWN MED) PO SCH (16:00)
[2024-06-04 16:54] LABS: HEMATOCRIT 23.5 % (36.0-47.0)
[2024-06-04 17:05] LABS: HEMOGLOBIN 7.9 g/dl (12.0-15.5)
[2024-06-04] MEDS: JAKAFI 5 MG PO SCH (20:38)
[2024-06-05] VITALS (12 sets, daily range): BP systolic 100–160; BP diastolic 55–94; TEMP 97–99.6; O2SAT 95–98
[2024-06-05 05:26] LABS: HEMATOCRIT 21.6 % (36.0-47.0); HEMOGLOBIN 7.3 g/dl (12.0-15.5); LYMPH # 0.6 10^3/uL (1.5-5.0); LYMPH % 16.2 % (24.0-44.0); MEAN CORPUSCULAR HEMOGLOBIN 31.7 pg (27.0-33.0); MEAN CORPUSCULAR HGB CONC 33.8 g/dl (32.0-36.5); MEAN CORPUSCULAR VOLUME 93.9 fl (80.0-96.0); MONO # 0.3 10^3/uL (0.0-0.8); MONO % 9.2 % (2.0-8.0); NEUTROPHILS # 2.8 10^3/uL (1.5-8.5); NEUTROPHILS % 74.3 % (36.0-66.0); PLATELET COUNT, AUTOMATED 113 10^3/uL (150-450); WHITE BLOOD COUNT 3.7 10^3/uL (4.0-10.0)
[2024-06-05 05:58] LABS: CALCIUM LEVEL 7.8 MG/DL (8.3-10.6); CREATININE FOR GFR 1.8 MG/DL (0.55-1.30); GLOMERULAR FILTRATION RATE 29.9 (>45); MAGNESIUM LEVEL 2.3 MG/DL (1.8-2.4); POTASSIUM SERUM 4.3 MMOL/L (3.5-5.1)
[2024-06-05] MEDS: dexAMETHasone 20MG/5ML VIAL IV PRN (09:30)
[2024-06-05] MEDS: diphenhydrAMINE 25MG CAP PO PRN (09:31)
[2024-06-05] MEDS ORDERED: diphenhydrAMINE 50MG/ML VIAL IM ONE (12:00)
[2024-06-05] MEDS ORDERED: dexAMETHasone 20MG/5ML VIAL IV ONE (12:00)
[2024-06-05 18:16] LABS: HEMATOCRIT 30.9 % (36.0-47.0)
[2024-06-05 18:22] LABS: HEMOGLOBIN 10.8 g/dl (12.0-15.5)
[2024-06-06] MEDS: ULTRACET TAB PO ONE (00:44)
[2024-06-06 03:52] VITALS: BP 145/73; TEMP 99; O2SAT 96
[2024-06-06 05:19] LABS: HEMOGLOBIN 9.7 g/dl (12.0-15.5); LYMPH # 0.8 10^3/uL (1.5-5.0); LYMPH % 21.6 % (24.0-44.0); MEAN CORPUSCULAR HEMOGLOBIN 32.1 pg (27.0-33.0); MEAN CORPUSCULAR HGB CONC 34.6 g/dl (32.0-36.5); MEAN CORPUSCULAR VOLUME 92.7 fl (80.0-96.0); MONO # 0.6 10^3/uL (0.0-0.8); MONO % 15.9 % (2.0-8.0); NEUTROPHILS # 2.2 10^3/uL (1.5-8.5); NEUTROPHILS % 61.9 % (36.0-66.0); PLATELET COUNT, AUTOMATED 124 10^3/uL (150-450); RED BLOOD COUNT 3.02 10^6/uL (4.00-5.40); WHITE BLOOD COUNT 3.5 10^3/uL (4.0-10.0)
[2024-06-06 05:43] LABS: CREATININE FOR GFR 1.91 MG/DL (0.55-1.30); GLOMERULAR FILTRATION RATE 27.9 (>45); MAGNESIUM LEVEL 2.2 MG/DL (1.8-2.4)
[2024-06-06 08:13] VITALS: BP 161/94; TEMP 98.2; O2SAT 93
[2024-06-06] MEDS: PANTOPRAZOLE 40MG VIAL IV SCH (09:27)
[2024-06-06 12:05] VITALS: BP 159/100; TEMP 97; O2SAT 97
[2024-06-06] MEDS: CYCLOBENZAPRINE 10MG TABLET PO PRN (15:03)
[2024-06-06] MEDS: ERTAPENEM SODIUM 1 GM in NS MINI-BAG PLUS 50 ML IV SCH (16:42)
[2024-06-06 21:43] VITALS: BP 153/89; TEMP 97.7; O2SAT 97
[2024-06-07 05:25] VITALS: BP 155/98; TEMP 98.2; O2SAT 97
[2024-06-07 06:55] LABS: CALCIUM LEVEL 8.1 MG/DL (8.3-10.6); CREATININE FOR GFR 1.63 MG/DL (0.55-1.30); GLOMERULAR FILTRATION RATE 33.5 (>45); MAGNESIUM LEVEL 1.9 MG/DL (1.8-2.4); POTASSIUM SERUM 4.1 MMOL/L (3.5-5.1)
[2024-06-07 07:48] LABS: BASO % 0.2 % (0.0-1.0); EOS # 0.1 10^3/uL (0.0-0.5); EOS % 2.5 % (0.0-3.0); HEMATOCRIT 30.5 % (36.0-47.0); HEMOGLOBIN 10.7 g/dl (12.0-15.5); LYMPH # 1.7 10^3/uL (1.5-5.0); LYMPH % 35.6 % (24.0-44.0); MEAN CORPUSCULAR HEMOGLOBIN 32.5 pg (27.0-33.0); MEAN CORPUSCULAR HGB CONC 35.1 g/dl (32.0-36.5); MEAN CORPUSCULAR VOLUME 92.7 fl (80.0-96.0); MONO # 0.5 10^3/uL (0.0-0.8); MONO % 10.5 % (2.0-8.0); NEUTROPHILS # 2.4 10^3/uL (1.5-8.5); NEUTROPHILS % 50.8 % (36.0-66.0); RED BLOOD COUNT 3.29 10^6/uL (4.00-5.40); WHITE BLOOD COUNT 4.8 10^3/uL (4.0-10.0)
[2024-06-07 07:57] LABS: PLATELET COUNT, AUTOMATED 105 10^3/uL (150-450)
[2024-06-07] MEDS: NS 1,000 ML IV SCH (10:57)
[2024-06-07] MEDS ORDERED: propofoL 200 MG/20 ML VIAL As Ordered ONE (15:24)
[2024-06-07] MEDS ORDERED: LIDOCAINE 2% 100MG/5ML SDV (FOR ANES.) As Ordered ONE (15:25)
[2024-06-07 16:13] VITALS: BP 160/98; TEMP 98.4; O2SAT 96
[2024-06-07 20:00] VITALS: BP 163/95; TEMP 98.6; O2SAT 97
[2024-06-07] MEDS: NYSTATIN 500,000U/5ML SUSP UDC PO SCH (20:36)
[2024-06-08 04:46] VITALS: BP 154/90; TEMP 98.1; O2SAT 97
[2024-06-08] MEDS: LACTOBACILLUS ACIDOPHILUS CAP (BACID) PO SCH (08:51)
[2024-06-08 09:08] LABS: BASO % 0.2 % (0.0-1.0); EOS # 0.1 10^3/uL (0.0-0.5); EOS % 3.1 % (0.0-3.0); HEMATOCRIT 29.9 % (36.0-47.0); HEMOGLOBIN 10.4 g/dl (12.0-15.5); LYMPH # 1.3 10^3/uL (1.5-5.0); LYMPH % 29.9 % (24.0-44.0); MEAN CORPUSCULAR HEMOGLOBIN 32.5 pg (27.0-33.0); MEAN CORPUSCULAR HGB CONC 34.8 g/dl (32.0-36.5); MEAN CORPUSCULAR VOLUME 93.4 fl (80.0-96.0); MONO # 0.5 10^3/uL (0.0-0.8); MONO % 11.4 % (2.0-8.0); NEUTROPHILS # 2.3 10^3/uL (1.5-8.5); NEUTROPHILS % 54.9 % (36.0-66.0); PLATELET COUNT, AUTOMATED 139 10^3/uL (150-450); WHITE BLOOD COUNT 4.2 10^3/uL (4.0-10.0)
[2024-06-08 09:23] LABS: CALCIUM LEVEL 8.3 MG/DL (8.3-10.6); CREATININE FOR GFR 1.43 MG/DL (0.55-1.30); MAGNESIUM LEVEL 1.9 MG/DL (1.8-2.4); POTASSIUM SERUM 4.2 MMOL/L (3.5-5.1)
[2024-06-08 12:00] VITALS: TEMP 98.4; O2SAT 95
[2024-06-08] MEDS: MUPIROCIN 2% OINT 22 GM TUBE TOP SCH (17:35)
[2024-06-08] MEDS: APIXABAN 5 MG TAB (ELIQUIS) PO SCH (20:19)
[2024-06-08 21:00] VITALS: BP 170/90; TEMP 97.7; O2SAT 95
[2024-06-09 05:28] VITALS: BP 172/93; TEMP 97.5; O2SAT 95
[2024-06-09 07:06] LABS: BASO % 0.3 % (0.0-1.0); EOS # 0.1 10^3/uL (0.0-0.5); EOS % 2.5 % (0.0-3.0); HEMATOCRIT 29.9 % (36.0-47.0); HEMOGLOBIN 10.1 g/dl (12.0-15.5); LYMPH # 1.2 10^3/uL (1.5-5.0); LYMPH % 33.1 % (24.0-44.0); MEAN CORPUSCULAR HEMOGLOBIN 32.3 pg (27.0-33.0); MEAN CORPUSCULAR HGB CONC 33.8 g/dl (32.0-36.5); MEAN CORPUSCULAR VOLUME 95.5 fl (80.0-96.0); MONO # 0.4 10^3/uL (0.0-0.8); NEUTROPHILS # 1.9 10^3/uL (1.5-8.5); NEUTROPHILS % 53.8 % (36.0-66.0); PLATELET COUNT, AUTOMATED 150 10^3/uL (150-450); RED BLOOD COUNT 3.13 10^6/uL (4.00-5.40); WHITE BLOOD COUNT 3.6 10^3/uL (4.0-10.0)
[2024-06-09 07:36] LABS: CALCIUM LEVEL 8.6 MG/DL (8.3-10.6); CREATININE FOR GFR 1.34 MG/DL (0.55-1.30); MAGNESIUM LEVEL 1.8 MG/DL (1.8-2.4); POTASSIUM SERUM 4.1 MMOL/L (3.5-5.1)
[2024-06-09 12:23] VITALS: BP 158/81; TEMP 98.4; O2SAT 95
[2024-06-09 20:00] VITALS: BP 168/98; TEMP 97.9; O2SAT 95
[2024-06-10 06:41] LABS: BASO % 0.3 % (0.0-1.0); EOS # 0.1 10^3/uL (0.0-0.5); EOS % 2.5 % (0.0-3.0); LYMPH # 1.1 10^3/uL (1.5-5.0); LYMPH % 31.8 % (24.0-44.0); MEAN CORPUSCULAR HEMOGLOBIN 32.6 pg (27.0-33.0); MEAN CORPUSCULAR HGB CONC 34.5 g/dl (32.0-36.5); MEAN CORPUSCULAR VOLUME 94.5 fl (80.0-96.0); MONO # 0.4 10^3/uL (0.0-0.8); MONO % 10.4 % (2.0-8.0); NEUTROPHILS # 1.9 10^3/uL (1.5-8.5); NEUTROPHILS % 54.4 % (36.0-66.0); PLATELET COUNT, AUTOMATED 131 10^3/uL (150-450); RED BLOOD COUNT 3.07 10^6/uL (4.00-5.40); WHITE BLOOD COUNT 3.6 10^3/uL (4.0-10.0)
[2024-06-10 07:05] LABS: CALCIUM LEVEL 8.2 MG/DL (8.3-10.6); CREATININE FOR GFR 1.28 MG/DL (0.55-1.30); GLOMERULAR FILTRATION RATE 44.3 (>45); MAGNESIUM LEVEL 1.7 MG/DL (1.8-2.4); POTASSIUM SERUM 4.2 MMOL/L (3.5-5.1)
[2024-06-10] MEDS: MAG SULF 1GM/100ML (MAG RUN) 1 GM in IV 1 EA IV ONE (08:30)
[2024-06-10 08:33] VITALS: BP 154/81
[2024-06-10] MEDS: TORSEMIDE 20 MG TAB PO SCH (08:36)
[2024-06-10] MEDS ORDERED: AMLO1TAB25 PO (13:04)
[2024-06-10] MEDS ORDERED: RISATAB3 PO (13:04)
[2024-06-10 13:46] VITALS: BP 166/97; TEMP 98.1; O2SAT 98
[2024-06-10 16:36] VITALS: BP 156/85; TEMP 97.9; O2SAT 98
== END 2024-06-10 17:30 | disposition home health service (06) | DRG 841 ==
LOC: M ED 09:02 → EDBD 09:02 → M ED INP 12:45 → M PCU 17:00 → M MS5PR 06-06 12:02
PROVIDERS: ADMIT Hospitalist; ATTEND Student in an Organized Health Care Education/Training Program
PROC: 30233N1 Transfusion of Nonautologous Red Blood Cells into Peripheral Vein, Percutaneous Approach (ICD-10-PCS; 2024-06-03)
PROC: 0DJ08ZZ Inspection of Upper Intestinal Tract, Via Natural or Artificial Opening Endoscopic (ICD-10-PCS; principal; 2024-06-07 15:00)
DX: D47.1 Chronic myeloproliferative disease (principal); Z94.84 Stem cells transplant status; I13.0 Hypertensive heart and chronic kidney disease with heart failure and stage 1 through stage 4 chronic kidney disease, or unspecified chronic kidney disease; N39.0 Urinary tract infection, site not specified; I48.91 Unspecified atrial fibrillation; E11.9 Type 2 diabetes mellitus without complications; F41.9 Anxiety disorder, unspecified; F32.A Depression, unspecified; G47.33 Obstructive sleep apnea (adult) (pediatric); K21.9 Gastro-esophageal reflux disease without esophagitis; R29.6 Repeated falls; B96.1 Klebsiella pneumoniae [K. pneumoniae] as the cause of diseases classified elsewhere; N18.9 Chronic kidney disease, unspecified; M79.7 Fibromyalgia; G89.29 Other chronic pain; D63.1 Anemia in chronic kidney disease; M32.9 Systemic lupus erythematosus, unspecified; I50.9 Heart failure, unspecified; E11.22 Type 2 diabetes mellitus with diabetic chronic kidney disease; R19.7 Diarrhea, unspecified; D63.0 Anemia in neoplastic disease; D69.6 Thrombocytopenia, unspecified; M47.812 Spondylosis without myelopathy or radiculopathy, cervical region; D50.9 Iron deficiency anemia, unspecified; M48.02 Spinal stenosis, cervical region; Z79.01 Long term (current) use of anticoagulants; Z79.899 Other long term (current) drug therapy; Z88.1 Allergy status to other antibiotic agents; Z88.8 Allergy status to other drugs, medicaments and biological substances; Z91.041 Radiographic dye allergy status; Z91.018 Allergy to other foods

== ENCOUNTER 2024-06-11 10:33 | Outpatient (CLI) | payer MEDICARE, OTHER ==
[~2024-06-11] VITALS: Ht 165.1 cm; Wt 65.0 kg
[~2024-06-11 10:33] MED LIST changes: +METH-855 PO; +REPA0.5T2 PO; -REPA1TAB3 PO; +RISATAB3 PO; -TRAM-443 PO; +TRAM1TAB42 PO
[2024-06-11 10:40] VITALS: BP 179/100; O2SAT 98
[2024-06-11] MEDS: ERTAPENEM SODIUM 1 GM in NS MINI-BAG PLUS 50 ML IV ONE (10:56)
[2024-06-11 11:25] VITALS: BP 148/90; O2SAT 100
[2024-06-11] MEDS: SODIUM CHLORIDE 0.9% INJ 10 ML SYR IV SCH (11:38)
[2024-06-12] MEDS ORDERED: RISATAB3 PO (06:04)
[2024-06-12] MEDS ORDERED: MAGN400T2 PO (06:04)
== END 2024-06-11 11:45 ==
LOC: M INFU 10:33
PROVIDERS: ATTEND Student in an Organized Health Care Education/Training Program
DX: N39.0 Urinary tract infection, site not specified (principal); Z16.12 Extended spectrum beta lactamase (ESBL) resistance; Z88.8 Allergy status to other drugs, medicaments and biological substances; Z91.041 Radiographic dye allergy status; Z91.89 Other specified personal risk factors, not elsewhere classified; Z88.1 Allergy status to other antibiotic agents

== ENCOUNTER 2024-06-12 00:13 | Inpatient (IN) | payer MEDICARE, OTHER ==
[~2024-06-12] VITALS: Ht 165.1 cm; Wt 71.1 kg
[2024-06-12 01:25] LABS: BASO % 0.3 % (0.0-1.0); EOS # 0.1 10^3/uL (0.0-0.5); EOS % 1.2 % (0.0-3.0); HEMATOCRIT 34.5 % (36.0-47.0); LYMPH # 0.7 10^3/uL (1.5-5.0); LYMPH % 9.9 % (24.0-44.0); MEAN CORPUSCULAR HEMOGLOBIN 33.2 pg (27.0-33.0); MEAN CORPUSCULAR HGB CONC 35.4 g/dl (32.0-36.5); MEAN CORPUSCULAR VOLUME 93.8 fl (80.0-96.0); MONO # 0.5 10^3/uL (0.0-0.8); MONO % 6.7 % (2.0-8.0); NEUTROPHILS # 5.9 10^3/uL (1.5-8.5); NEUTROPHILS % 81.5 % (36.0-66.0); PLATELET COUNT, AUTOMATED 176 10^3/uL (150-450); RED BLOOD COUNT 3.68 10^6/uL (4.00-5.40); WHITE BLOOD COUNT 7.3 10^3/uL (4.0-10.0)
[2024-06-12] MEDS: ACETAMINOPHEN TAB 650MG DOSE (2X325MG) PO ONE (01:26)
[2024-06-12 01:31] LABS: HEMOGLOBIN 12.2 g/dl (12.0-15.5)
[2024-06-12 01:47] LABS: CPK CREATINE PHOSPHOKINASE 55 U/L (34-145)
[2024-06-12 01:51] LABS: INR 1.66
[2024-06-12 01:57] LABS: ALBUMIN 3.3 G/DL (3.2-5.2); ALKALINE PHOSPHATASE 170 U/L (46-116); ALT/SGPT 80 U/L (7.0-40); AST/SGOT 29 U/L (<34); BILIRUBIN,DIRECT < 0.1 MG/DL (<0.4); BILIRUBIN,TOTAL 0.3 MG/DL (0.3-1.2); BLOOD UREA NITROGEN 26 MG/DL (9-23); CALCIUM LEVEL 8.6 MG/DL (8.3-10.6); CARBON DIOXIDE LEVEL 29 MMOL/L (20-31); CHLORIDE LEVEL 106 MMOL/L (98-107); CK-MB VALUE MASS < 1.0 NG/ML (<3.6); CREATININE FOR GFR 1.38 MG/DL (0.55-1.30); GLOMERULAR FILTRATION RATE 40.6 (>45); GLUCOSE, FASTING 151 MG/DL (74-106); MB/CK RELATIVE INDEX 1.81 (< OR =4); POTASSIUM SERUM 3.3 MMOL/L (3.5-5.1); SODIUM LEVEL 141 MMOL/L (136-145); TOTAL PROTEIN 5.6 G/DL (5.7-8.2)
[2024-06-12 03:13] LABS: PROCALCITONIN 0.05 ng/ml
[2024-06-12] MEDS ORDERED: MAGN400T2 PO (06:04)
[2024-06-12] MEDS ORDERED: RISATAB3 PO (06:04)
[2024-06-12] MEDS ORDERED: HOME MED LIST COMPLETE! XX SCH (06:05)
[2024-06-12 06:26] LABS: CK-MB VALUE MASS < 1.0 NG/ML (<3.6)
[2024-06-12 06:28] LABS: CPK CREATINE PHOSPHOKINASE 45 U/L (34-145); MB/CK RELATIVE INDEX 2.22 (< OR =4)
[2024-06-12] MEDS: POTASSIUM CHLORIDE 10MEQ SR TABLET PO ONE ×2 (06:32→08:00)
[2024-06-12 06:42] LABS: CHOLESTEROL RISK RATIO 5.83 (<5); HDL CHOLESTEROL 37.2 MG/DL (>40); LDL CHOLESTEROL 128.4 MG/DL (<100); NON-HDL-C 179.8 MG/DL
[2024-06-12] MEDS: APIXABAN 5 MG TAB (ELIQUIS) PO SCH (09:07)
[2024-06-12] MEDS: DOCUSATE SODIUM 100MG CAPSULE PO SCH (09:07)
[2024-06-12] MEDS: LORazepam 0.5 MG TAB PO ONE (10:19)
[2024-06-12 12:05] VITALS: BP 150/82; TEMP 98.1; O2SAT 94
[2024-06-12] MEDS ORDERED: CREON-24 CAPSULE (PANCRELIPASE) PO SCH (12:30)
[2024-06-12] MEDS: LR 1,000 ML IV SCH (13:13)
[2024-06-12] MEDS: LACTOBACILLUS ACIDOPHILUS CAP (BACID) PO SCH (13:14)
[2024-06-12] MEDS: VITAMIN D 1,000 INTERNATIONAL UNITS TABLET PO SCH (13:14)
[2024-06-12] MEDS: allopurinoL 100 MG TAB PO SCH (13:15)
[2024-06-12] MEDS: METOPROLOL SUCC (TopROL XL) 50MG **XL** TAB PO SCH (13:15)
[2024-06-12] MEDS: MULTIVITAMINS/MINERALS THERAP 1 TAB PO SCH (13:16)
[2024-06-12] MEDS: BACTRIM 160MG/800MG DS TAB PO SCH (13:16)
[2024-06-12] MEDS: FOLIC ACID 1MG TAB PO SCH (13:16)
[2024-06-12] MEDS: HYDROXYCHLOROQUINE 200 MG TAB PO SCH (13:51)
[2024-06-12] MEDS: CREON-12 CAPSULE (PANCRELIPASE) PO SCH (13:51)
[2024-06-12] MEDS: ACYCLOVIR 200 MG CAPSULE PO SCH (13:51)
[2024-06-12] MEDS: JAKAFI 5 MG PO SCH (13:52)
[2024-06-12] MEDS: DIGOXIN 0.0625MG PER 1/2TABLET PO SCH (13:55)
[2024-06-12 16:13] VITALS: BP 158/62; TEMP 97.5; O2SAT 94
[2024-06-12 16:19] VITALS: BP_SYST 138; BP_SYST 158; BP_SYST 170; BP_DIAS 62; BP_DIAS 90; BP_DIAS 94
[2024-06-12 20:00] VITALS: BP 162/77; TEMP 97.3; O2SAT 97
[2024-06-12] MEDS: traZODone 50 MG TAB PO SCH (21:11)
[2024-06-12] MEDS: oxyBUTYnin *DITROPAN XL* 5 MG TABCR PO SCH (21:11)
[2024-06-12] MEDS: PRAMIPEXOLE (MIRAPEX) 0.125 MG TAB PO SCH (21:11)
[2024-06-12] MEDS: MONTELUKAST 10 MG TAB PO SCH (21:12)
[2024-06-12] MEDS: POTASSIUM CHLORIDE 10MEQ SR TABLET PO SCH (21:12)
[2024-06-12] MEDS: MAGNESIUM OXIDE 400MG TAB (MAG-OX) PO SCH (21:12)
[2024-06-12] MEDS: SERTRALINE HCL 50 MG TAB PO SCH (21:13)
[2024-06-12] MEDS: GABAPENTIN 300 MG CAP PO SCH (21:13)
[2024-06-13] VITALS (8 sets, daily range): BP systolic 130–162; BP diastolic 67–90; TEMP 97.2–98.9; O2SAT 94–97
[2024-06-13 06:06] LABS: HEMATOCRIT 28.6 % (36.0-47.0); MEAN CORPUSCULAR HEMOGLOBIN 32.8 pg (27.0-33.0); MEAN CORPUSCULAR HGB CONC 34.6 g/dl (32.0-36.5); MEAN CORPUSCULAR VOLUME 94.7 fl (80.0-96.0); PLATELET COUNT, AUTOMATED 129 10^3/uL (150-450); RED BLOOD COUNT 3.02 10^6/uL (4.00-5.40); WHITE BLOOD COUNT 4.6 10^3/uL (4.0-10.0)
[2024-06-13 06:16] LABS: HEMOGLOBIN 9.9 g/dl (12.0-15.5)
[2024-06-13 06:43] LABS: ALBUMIN 2.4 G/DL (3.2-5.2); BILIRUBIN,TOTAL 0.4 MG/DL (0.3-1.2); CALCIUM LEVEL 8.1 MG/DL (8.3-10.6); CREATININE FOR GFR 1.26 MG/DL (0.55-1.30); GLOMERULAR FILTRATION RATE 45.1 (>45); TOTAL PROTEIN 4.4 G/DL (5.7-8.2)
[2024-06-13] MEDS ORDERED: ERYTHROMYCIN ETHYLSUCCINATE PO SCH (08:00)
[2024-06-13] MEDS: ATORVASTATIN 20 MG TAB PO SCH (09:37)
[2024-06-13] MEDS: ACETAMINOPHEN TAB 650MG DOSE (2X325MG) PO PRN (11:25)
[2024-06-14 04:29] VITALS: BP 159/89; TEMP 97.9; O2SAT 99
[2024-06-14 09:00] VITALS: O2SAT 98
[2024-06-14] MEDS: ULTRACET TAB PO PRN (09:40)
[2024-06-14 09:44] LABS: HEMATOCRIT 31.3 % (36.0-47.0); HEMOGLOBIN 10.6 g/dl (12.0-15.5); MEAN CORPUSCULAR HEMOGLOBIN 32.5 pg (27.0-33.0); MEAN CORPUSCULAR HGB CONC 33.9 g/dl (32.0-36.5); PLATELET COUNT, AUTOMATED 140 10^3/uL (150-450); RED BLOOD COUNT 3.26 10^6/uL (4.00-5.40); WHITE BLOOD COUNT 3.5 10^3/uL (4.0-10.0)
[2024-06-14 10:06] LABS: ALBUMIN 2.7 G/DL (3.2-5.2); BILIRUBIN,TOTAL 0.4 MG/DL (0.3-1.2); CALCIUM LEVEL 8.5 MG/DL (8.3-10.6); CREATININE FOR GFR 1.26 MG/DL (0.55-1.30); GLOMERULAR FILTRATION RATE 45.1 (>45); TOTAL PROTEIN 4.9 G/DL (5.7-8.2)
[2024-06-14 12:00] VITALS: BP 144/81; TEMP 98.1; O2SAT 95
[2024-06-14 12:48] VITALS: BP_SYST 144; BP_SYST 145; BP_SYST 146; BP_DIAS 82; BP_DIAS 83
[2024-06-14 20:20] VITALS: BP 143/83; TEMP 98.1; O2SAT 96
[2024-06-14] MEDS: CYCLOBENZAPRINE 10MG TABLET PO PRN (21:49)
[2024-06-15 03:30] VITALS: BP 137/74; TEMP 99.1; O2SAT 96
[2024-06-15 09:09] VITALS: BP 128/76
[2024-06-15 12:00] VITALS: BP 144/79; TEMP 97.7; O2SAT 96
[2024-06-15] MEDS: TORSEMIDE 20 MG TAB PO SCH (13:19)
[2024-06-15 20:48] VITALS: BP 142/78; TEMP 98.4; O2SAT 98
[2024-06-16 03:40] VITALS: BP 120/76; TEMP 97.9; O2SAT 98
[2024-06-16 06:46] LABS: HEMATOCRIT 32.5 % (36.0-47.0); HEMOGLOBIN 10.9 g/dl (12.0-15.5); MEAN CORPUSCULAR HEMOGLOBIN 33.2 pg (27.0-33.0); MEAN CORPUSCULAR HGB CONC 33.5 g/dl (32.0-36.5); MEAN CORPUSCULAR VOLUME 99.1 fl (80.0-96.0); PLATELET COUNT, AUTOMATED 141 10^3/uL (150-450); RED BLOOD COUNT 3.28 10^6/uL (4.00-5.40); WHITE BLOOD COUNT 4.3 10^3/uL (4.0-10.0)
[2024-06-16 12:00] VITALS: BP 134/76; TEMP 98.2; O2SAT 95
[2024-06-16 20:00] VITALS: BP 122/74; TEMP 99; O2SAT 96
[2024-06-16] MEDS: diphenhydrAMINE 50MG/ML VIAL IV ONE (21:40)
[2024-06-17 04:00] VITALS: BP 125/76; TEMP 97.9; O2SAT 94
[2024-06-17 12:00] VITALS: BP 119/62; TEMP 98.2; O2SAT 97
[2024-06-17 20:00] VITALS: BP 124/74; TEMP 99; O2SAT 97
[2024-06-17] MEDS: diphenhydrAMINE 50MG/ML VIAL IV ONE (21:23)
[2024-06-18 04:00] VITALS: BP 140/79; TEMP 98; O2SAT 97
[2024-06-18 12:58] VITALS: BP 117/66; TEMP 97.9; O2SAT 82
[2024-06-18 13:09] VITALS: O2SAT 99
[2024-06-18] MEDS: HYDROCORTISONE 1% CREAM 30GM TOP SCH (15:11)
[2024-06-18 19:41] VITALS: BP 115/66; TEMP 98.6; O2SAT 96
[2024-06-19 04:00] VITALS: BP 130/87; TEMP 97.9; O2SAT 94
[2024-06-19 07:26] LABS: CALCIUM LEVEL 8.6 MG/DL (8.3-10.6); CREATININE FOR GFR 1.85 MG/DL (0.55-1.30); GLOMERULAR FILTRATION RATE 28.9 (>45); MAGNESIUM LEVEL 1.8 MG/DL (1.8-2.4); POTASSIUM SERUM 3.6 MMOL/L (3.5-5.1)
[2024-06-19] MEDS: ATORVASTATIN 20 MG TAB PO SCH (08:38)
[2024-06-19] MEDS: POTASSIUM CHLORIDE 10MEQ SR TABLET PO SCH (08:40)
[2024-06-19] MEDS ORDERED: TORSEMIDE 20 MG TAB PO SCH (09:00)
[2024-06-19] MEDS: LR 1,000 ML IV SCH (10:07)
[2024-06-19 12:00] VITALS: BP 105/88; TEMP 97.7; O2SAT 96
[2024-06-19 20:00] VITALS: BP 143/78; TEMP 98.2; O2SAT 96
[2024-06-20 04:00] VITALS: BP 120/75; TEMP 97.9; O2SAT 96
[2024-06-20 07:05] LABS: CALCIUM LEVEL 8.6 MG/DL (8.3-10.6); CREATININE FOR GFR 1.72 MG/DL (0.55-1.30); GLOMERULAR FILTRATION RATE 31.5 (>45); POTASSIUM SERUM 3.9 MMOL/L (3.5-5.1)
[2024-06-20 12:00] VITALS: BP 130/71; TEMP 98.1; O2SAT 96
[2024-06-20] MEDS ORDERED: diphenhydrAMINE 25MG CAP PO PRN (15:05)
[2024-06-20 20:59] VITALS: BP 130/71; TEMP 98.3; O2SAT 96
[2024-06-20] MEDS: predniSONE 20 MG TAB PO SCH (22:53)
[2024-06-21 04:00] VITALS: BP 133/72; TEMP 98.1; O2SAT 96
[2024-06-21 06:20] LABS: CREATININE FOR GFR 1.48 MG/DL (0.55-1.30); GLOMERULAR FILTRATION RATE 37.4 (>45); POTASSIUM SERUM 4.4 MMOL/L (3.5-5.1)
[2024-06-21] MEDS: LACTULOSE 20GM/30ML SYRUP UDC PO PRN (06:20)
[2024-06-21 07:58] LABS: BASO % 0.3 % (0.0-1.0); EOS % 0.6 % (0.0-3.0); HEMOGLOBIN 9.9 g/dl (12.0-15.5); LYMPH # 0.6 10^3/uL (1.5-5.0); LYMPH % 18.2 % (24.0-44.0); MEAN CORPUSCULAR HEMOGLOBIN 32.6 pg (27.0-33.0); MEAN CORPUSCULAR HGB CONC 34.1 g/dl (32.0-36.5); MEAN CORPUSCULAR VOLUME 95.4 fl (80.0-96.0); MONO # 0.1 10^3/uL (0.0-0.8); MONO % 3.3 % (2.0-8.0); NEUTROPHILS # 2.6 10^3/uL (1.5-8.5); PLATELET COUNT, AUTOMATED 147 10^3/uL (150-450); RED BLOOD COUNT 3.04 10^6/uL (4.00-5.40); WHITE BLOOD COUNT 3.4 10^3/uL (4.0-10.0)
[2024-06-21 08:50] LABS: PROCALCITONIN 0.08 ng/ml
[2024-06-21] MEDS ORDERED: CEFDINIR 300 MG CAP (OMNICEF) PO SCH (09:00)
[2024-06-21 12:00] VITALS: BP 135/72; TEMP 98.6; O2SAT 97
[2024-06-21] MEDS: ERTAPENEM SODIUM 1 GM in NS MINI-BAG PLUS 50 ML IV SCH (13:56)
[2024-06-21 20:00] VITALS: BP 136/67; TEMP 99; O2SAT 95
[2024-06-22 03:45] VITALS: BP 139/73; TEMP 99.1; O2SAT 96
[2024-06-22] MEDS: CREON-12 CAPSULE (PANCRELIPASE) PO SCH (08:00)
[2024-06-22] MEDS: CREON-24 CAPSULE (PANCRELIPASE) PO SCH (08:00)
[2024-06-22 12:00] VITALS: BP 148/77; TEMP 97.5; O2SAT 96
[2024-06-22] MEDS ORDERED: traZODone 50 MG TAB PO PRN (17:30)
[2024-06-22 20:00] VITALS: BP 142/85; TEMP 98.6; O2SAT 95
[2024-06-22] MEDS: QUEtiapine FUMARATE 25 MG TAB PO SCH (20:07)
[2024-06-23 04:20] VITALS: BP 153/88; TEMP 98.1; O2SAT 95
[2024-06-23 12:00] VITALS: BP 153/91; TEMP 98.8; O2SAT 93
[2024-06-23 20:10] VITALS: BP 149/92; TEMP 97.8; O2SAT 93
[2024-06-24 03:30] VITALS: BP 142/84; TEMP 98.1; O2SAT 95
[2024-06-24] MEDS: predniSONE 10MG TAB PO SCH (09:34)
[2024-06-24 12:00] VITALS: BP 151/97; TEMP 98.2; O2SAT 95
[2024-06-24 20:10] VITALS: BP 150/93; TEMP 98.8; O2SAT 91
[2024-06-24] MEDS: traZODone 50 MG TAB PO SCH (20:13)
[2024-06-25 04:30] VITALS: BP 115/41; TEMP 99.1; O2SAT 94
[2024-06-25 12:00] VITALS: BP 160/99; TEMP 98.8; O2SAT 92
[2024-06-25 15:17] VITALS: BP 162/104
[2024-06-25] MEDS: FIORICET TAB PO ONE (15:59)
[2024-06-25] MEDS: METOPROLOL TART 25 MG TABLET PO ONE (15:59)
[2024-06-25 17:27] VITALS: BP 158/100
[2024-06-25] MEDS: METOPROLOL TART 50 MG TAB PO SCH (18:33)
[2024-06-25 20:00] VITALS: BP 160/100; TEMP 98.6; O2SAT 93
[2024-06-26 04:00] VITALS: BP 152/90; TEMP 99.1; O2SAT 96
[2024-06-26] MEDS: BACTRIM 160MG/800MG DS TAB PO SCH (08:19)
[2024-06-26] MEDS ORDERED: METO200T15 PO (09:57)
[2024-06-26] MEDS ORDERED: BENA25CA4 PO (10:01)
[2024-06-26] MEDS ORDERED: HYDR1CRE30 TOP (10:01)
[2024-06-26] MEDS ORDERED: PRED5TA PO (10:01)
[2024-06-26] MEDS ORDERED: EZET10TA21 PO (11:48)
[2024-06-26 11:55] VITALS: BP 158/88
[2024-06-27] MEDS ORDERED: DIPH-435 PO (09:56)
[2024-06-27] MEDS ORDERED: METO200T15 PO (09:56)
== END 2024-06-26 12:00 | disposition home health service (06) | DRG 312 ==
LOC: M ED 00:13 → EDBD 00:13 → M ED INP 05:24 → M PCU 11:57 → M MSPAV 06-13 21:50
PROVIDERS: ADMIT Internal Medicine; ATTEND Internal Medicine
DX: I95.1 Orthostatic hypotension (principal); D75.81 Myelofibrosis; Z94.84 Stem cells transplant status; N39.0 Urinary tract infection, site not specified; I50.22 Chronic systolic (congestive) heart failure; I13.0 Hypertensive heart and chronic kidney disease with heart failure and stage 1 through stage 4 chronic kidney disease, or unspecified chronic kidney disease; I48.19 Other persistent atrial fibrillation; N18.4 Chronic kidney disease, stage 4 (severe); D84.9 Immunodeficiency, unspecified; M32.9 Systemic lupus erythematosus, unspecified; M79.7 Fibromyalgia; M10.9 Gout, unspecified; J45.909 Unspecified asthma, uncomplicated; D63.8 Anemia in other chronic diseases classified elsewhere; G25.81 Restless legs syndrome; D47.3 Essential (hemorrhagic) thrombocythemia; E87.6 Hypokalemia; E86.0 Dehydration; B96.1 Klebsiella pneumoniae [K. pneumoniae] as the cause of diseases classified elsewhere; F32.A Depression, unspecified; F41.9 Anxiety disorder, unspecified; G47.33 Obstructive sleep apnea (adult) (pediatric); N32.81 Overactive bladder; M54.16 Radiculopathy, lumbar region; K86.89 Other specified diseases of pancreas; Z90.49 Acquired absence of other specified parts of digestive tract; Z90.79 Acquired absence of other genital organ(s); Z79.01 Long term (current) use of anticoagulants; Z79.2 Long term (current) use of antibiotics; Z88.8 Allergy status to other drugs, medicaments and biological substances; Z91.048 Other nonmedicinal substance allergy status; Z91.018 Allergy to other foods

== ENCOUNTER 2024-06-27 06:52 | Observation (INO) | payer MEDICARE, OTHER ==
[~2024-06-27] VITALS: Ht 165.1 cm; Wt 64.8 kg
[~2024-06-27 06:52] MED LIST changes: +BENA25CA4 PO; +EZET10TA21 PO; +MAGN400T2 PO; +METO200T15 PO
[2024-06-27 07:38] LABS: EOS # 0.2 10^3/uL (0.0-0.5); EOS % 1.5 % (0.0-3.0); HEMATOCRIT 32.4 % (36.0-47.0); HEMOGLOBIN 11.2 g/dl (12.0-15.5); LYMPH # 1.3 10^3/uL (1.5-5.0); LYMPH % 11.7 % (24.0-44.0); MEAN CORPUSCULAR HEMOGLOBIN 32.8 pg (27.0-33.0); MEAN CORPUSCULAR HGB CONC 34.6 g/dl (32.0-36.5); MONO # 1.1 10^3/uL (0.0-0.8); MONO % 10.4 % (2.0-8.0); NEUTROPHILS # 8.2 10^3/uL (1.5-8.5); NEUTROPHILS % 75.4 % (36.0-66.0); PLATELET COUNT, AUTOMATED 238 10^3/uL (150-450); RED BLOOD COUNT 3.41 10^6/uL (4.00-5.40); WHITE BLOOD COUNT 10.9 10^3/uL (4.0-10.0)
[2024-06-27] MEDS: METOPROLOL SUCC (TopROL XL) 100MG *XL* TAB PO ONE (07:45)
[2024-06-27 08:00] LABS: CK-MB VALUE MASS 1.6 NG/ML (<3.6)
[2024-06-27 08:02] LABS: ALBUMIN 3.2 G/DL (3.2-5.2); BILIRUBIN,DIRECT 0.3 MG/DL (<0.4); BILIRUBIN,TOTAL 0.7 MG/DL (0.3-1.2); CREATININE FOR GFR 1.37 MG/DL (0.55-1.30); GLOMERULAR FILTRATION RATE 40.9 (>45); MB/CK RELATIVE INDEX 3.72 (< OR =4); POTASSIUM SERUM 4.1 MMOL/L (3.5-5.1); TOTAL PROTEIN 5.5 G/DL (5.7-8.2)
[2024-06-27 08:04] LABS: THYROID STIMULATING HORMONE 1.521 uIU/ML (0.55-4.78)
[2024-06-27] MEDS: EZETIMIBE 10MG TABLET (ZETIA) PO SCH (09:00)
[2024-06-27 09:13] LABS: CK-MB VALUE MASS 1.5 NG/ML (<3.6)
[2024-06-27 09:14] LABS: INR 2.12
[2024-06-27 09:15] LABS: MB/CK RELATIVE INDEX 3.75 (< OR =4)
[2024-06-27] MEDS: FUROSEMIDE 100MG/10ML VIAL IV ONE (09:40)
[2024-06-27] MEDS ORDERED: DIPH-435 PO (09:56)
[2024-06-27] MEDS ORDERED: METO200T15 PO (09:56)
[2024-06-27] MEDS ORDERED: ACETAMINOPHEN 650MG ER TAB (TYLENOL ARTHRITIS) PO PRN (10:00)
[2024-06-27] MEDS ORDERED: LACTULOSE 20GM/30ML SYRUP UDC PO PRN (10:00)
[2024-06-27] MEDS ORDERED: HOME MED LIST COMPLETE! XX SCH (10:00)
[2024-06-27] MEDS ORDERED: CYCLOBENZAPRINE 10MG TABLET PO PRN (10:00)
[2024-06-27] MEDS ORDERED: MOM 30ML SUSPENSION UDC PO PRN (10:00)
[2024-06-27] MEDS ORDERED: HYDROCORTISONE 1% CREAM 30GM TOP PRN (10:00)
[2024-06-27] MEDS ORDERED: MAALOX 30 ML SUSP *UDC PO PRN (10:00)
[2024-06-27 11:01] LABS: PROCALCITONIN 0.11 ng/ml
[2024-06-27] MEDS: METOPROLOL SUCC (TopROL XL) 100MG *XL* TAB PO SCH (11:38)
[2024-06-27] MEDS: DOCUSATE SODIUM 100MG CAPSULE PO SCH (12:01)
[2024-06-27] MEDS: MULTIVITAMINS/MINERALS THERAP 1 TAB PO SCH (12:01)
[2024-06-27] MEDS: predniSONE 10MG TAB PO ONE (12:01)
[2024-06-27] MEDS: APIXABAN 5 MG TAB (ELIQUIS) PO SCH (12:01)
[2024-06-27] MEDS: ACYCLOVIR 200 MG CAPSULE PO SCH (12:02)
[2024-06-27] MEDS: ACETAMINOPHEN TAB 650MG DOSE (2X325MG) PO PRN (12:02)
[2024-06-27] MEDS: VITAMIN D 1,000 INTERNATIONAL UNITS TABLET PO SCH (12:02)
[2024-06-27] MEDS: FOLIC ACID 1MG TAB PO SCH (12:02)
[2024-06-27] MEDS: allopurinoL 100 MG TAB PO SCH (12:03)
[2024-06-27] MEDS: ERYTHROMYCIN ETHYLSUCCINATE PO SCH (12:30)
[2024-06-27] MEDS: LACTOBACILLUS ACIDOPHILUS CAP (BACID) PO SCH (12:32)
[2024-06-27 14:45] VITALS: BP 142/76; TEMP 98.2; O2SAT 95
[2024-06-27 15:00] VITALS: BP 142/76; PULSE 89
[2024-06-27] MEDS: DIGOXIN 0.0625MG PER 1/2TABLET PO SCH (16:24)
[2024-06-27] MEDS: HYDROXYCHLOROQUINE 200 MG TAB PO SCH (16:25)
[2024-06-27] MEDS: FUROSEMIDE 40MG/4ML VIAL IV SCH (16:25)
[2024-06-27] MEDS: ULTRACET TAB PO PRN (17:01)
[2024-06-27] MEDS: diphenhydrAMINE 25MG CAP PO PRN (18:03)
[2024-06-27 20:05] VITALS: BP 153/86; TEMP 97.3; O2SAT 95
[2024-06-27] MEDS ORDERED: JAKAFI 5 MG PO SCH (21:00)
[2024-06-27] MEDS: PRAMIPEXOLE (MIRAPEX) 0.125 MG TAB PO SCH (21:33)
[2024-06-27] MEDS: oxyBUTYnin *DITROPAN XL* 5 MG TABCR PO SCH (21:34)
[2024-06-27] MEDS: traZODone 50 MG TAB PO SCH (21:35)
[2024-06-27] MEDS: MONTELUKAST 10 MG TAB PO SCH (21:35)
[2024-06-27] MEDS: MAGNESIUM OXIDE 400MG TAB (MAG-OX) PO SCH (21:35)
[2024-06-27] MEDS: SERTRALINE HCL 50 MG TAB PO SCH (21:35)
[2024-06-28] VITALS: BP 167/92; TEMP 98.3; O2SAT 96
[2024-06-28 04:00] VITALS: BP 170/90; TEMP 97.7; O2SAT 97
[2024-06-28 06:00] LABS: EOS # 0.2 10^3/uL (0.0-0.5); HEMATOCRIT 29.6 % (36.0-47.0); HEMOGLOBIN 10.3 g/dl (12.0-15.5); LYMPH # 0.8 10^3/uL (1.5-5.0); MEAN CORPUSCULAR HEMOGLOBIN 32.7 pg (27.0-33.0); MEAN CORPUSCULAR HGB CONC 34.8 g/dl (32.0-36.5); MONO # 0.6 10^3/uL (0.0-0.8); MONO % 11.4 % (2.0-8.0); NEUTROPHILS # 3.8 10^3/uL (1.5-8.5); NEUTROPHILS % 70.3 % (36.0-66.0); PLATELET COUNT, AUTOMATED 186 10^3/uL (150-450); RED BLOOD COUNT 3.15 10^6/uL (4.00-5.40); WHITE BLOOD COUNT 5.4 10^3/uL (4.0-10.0)
[2024-06-28 06:32] LABS: ALBUMIN 2.7 G/DL (3.2-5.2); BILIRUBIN,TOTAL 0.6 MG/DL (0.3-1.2); CALCIUM LEVEL 8.5 MG/DL (8.3-10.6); CREATININE FOR GFR 1.29 MG/DL (0.55-1.30); GLOMERULAR FILTRATION RATE 43.9 (>45); POTASSIUM SERUM 3.2 MMOL/L (3.5-5.1); TOTAL PROTEIN 4.8 G/DL (5.7-8.2)
[2024-06-28 07:46] VITALS: BP 164/92; TEMP 97.9; O2SAT 94
[2024-06-28] MEDS ORDERED: ENTER DRUG NAME HERE (PATIENT'S OWN MED) PO SCH (08:00)
[2024-06-28] MEDS ORDERED: ERYTHROMYCIN ETHYLSUCCINATE PO SCH (08:00)
[2024-06-28] MEDS: POTASSIUM CHLORIDE 10MEQ SR TABLET PO ONE (09:28)
[2024-06-28 10:01] VITALS: BP 164/92
[2024-06-28] MEDS: TORSEMIDE 20 MG TAB PO SCH (10:31)
[2024-06-28] MEDS ORDERED: TORS20TA2 PO (11:10)
[2024-06-28 12:47] VITALS: BP 143/91
== END 2024-06-28 14:30 | disposition home health service (06) ==
LOC: M ED 06:52 → M ED INP 06:53 → M PCU 14:34
PROVIDERS: ADMIT Internal Medicine; ATTEND Internal Medicine
DX: J90 Pleural effusion, not elsewhere classified (principal); I48.11 Longstanding persistent atrial fibrillation; G47.33 Obstructive sleep apnea (adult) (pediatric); R06.00 Dyspnea, unspecified; R00.2 Palpitations; R04.0 Epistaxis; E78.5 Hyperlipidemia, unspecified; I11.0 Hypertensive heart disease with heart failure; I50.20 Unspecified systolic (congestive) heart failure; N18.30 Chronic kidney disease, stage 3 unspecified; M10.9 Gout, unspecified; Z87.440 Personal history of urinary (tract) infections; M79.7 Fibromyalgia; F32.A Depression, unspecified; G25.81 Restless legs syndrome; D75.81 Myelofibrosis; Z94.84 Stem cells transplant status; M32.9 Systemic lupus erythematosus, unspecified; M54.16 Radiculopathy, lumbar region; M48.07 Spinal stenosis, lumbosacral region; L30.9 Dermatitis, unspecified; N32.81 Overactive bladder; K86.89 Other specified diseases of pancreas; D64.9 Anemia, unspecified; J30.9 Allergic rhinitis, unspecified; I09.89 Other specified rheumatic heart diseases; I27.20 Pulmonary hypertension, unspecified; R91.8 Other nonspecific abnormal finding of lung field; Z88.8 Allergy status to other drugs, medicaments and biological substances; Z91.018 Allergy to other foods; Z91.048 Other nonmedicinal substance allergy status; Z79.899 Other long term (current) drug therapy; Z79.52 Long term (current) use of systemic steroids; Z79.01 Long term (current) use of anticoagulants; Z79.2 Long term (current) use of antibiotics
CPT/HCPCS: 36415; 71045; 71250; 80048; 80053; 80076; 80162; 82550; 82553; 83605; 83735; 83880; 84145; 84443; 84484; 85025; 85610; 87040; 87486; 87581; 87633; 87798; 93005; 93041; 93306; 94760; 96374; 96376; 97116; 97161; 97530; 99285; G0378; J1940; J7512

== ENCOUNTER → 2024-07-10 | Outpatient (REF) | payer MEDICARE, OTHER ==
[~2024-07-10] MED LIST changes: -BYST10TA2 PO; +BYST1TAB3 PO; +DIPH-435 PO; +GABA-1171; +LASI40TA9 PO
[2024-07-11 15:23] LABS: ALBUMIN 3.4 G/DL (3.2-5.2); CALCIUM LEVEL 9.7 MG/DL (8.3-10.6); CREATININE FOR GFR 1.72 MG/DL (0.55-1.30); GLOMERULAR FILTRATION RATE 31.5 (>45); PHOSPHORUS LEVEL 3.5 MG/DL (2.4-5.1); POTASSIUM SERUM 3.5 MMOL/L (3.5-5.1)
== END ==
LOC: M LAB REF 13:24
PROVIDERS: ATTEND Internal Medicine Nephrology
DX: N18.9 Chronic kidney disease, unspecified (principal)

== ENCOUNTER → 2024-07-14 | Outpatient (REF) | payer MEDICARE, OTHER ==
[~2024-07-14] MED LIST changes: +METH-855
[2024-07-14 18:27] LABS: CALCIUM LEVEL 9.3 MG/DL (8.3-10.6); CREATININE FOR GFR 1.65 MG/DL (0.55-1.30); MAGNESIUM LEVEL 2.1 MG/DL (1.8-2.4); POTASSIUM SERUM 3.1 MMOL/L (3.5-5.1)
== END ==
LOC: M LAB REF 17:48
PROVIDERS: ATTEND Internal Medicine
DX: E87.70 Fluid overload, unspecified (principal)

== ENCOUNTER → 2024-07-15 | Outpatient (REF) | payer MEDICARE, OTHER ==
[~2024-07-15] MED LIST changes: -METH-855
[2024-07-16 12:32] LABS: BASO % 0.2 % (0.0-1.0); EOS # 0.1 10^3/uL (0.0-0.5); EOS % 2.4 % (0.0-3.0); HEMATOCRIT 28.6 % (36.0-47.0); HEMOGLOBIN 9.8 g/dl (12.0-15.5); LYMPH # 1.6 10^3/uL (1.5-5.0); MEAN CORPUSCULAR HEMOGLOBIN 32.8 pg (27.0-33.0); MEAN CORPUSCULAR HGB CONC 34.3 g/dl (32.0-36.5); MEAN CORPUSCULAR VOLUME 95.7 fl (80.0-96.0); MONO # 0.7 10^3/uL (0.0-0.8); MONO % 13.4 % (2.0-8.0); NEUTROPHILS # 2.7 10^3/uL (1.5-8.5); NEUTROPHILS % 52.2 % (36.0-66.0); PLATELET COUNT, AUTOMATED 226 10^3/uL (150-450); RED BLOOD COUNT 2.99 10^6/uL (4.00-5.40); WHITE BLOOD COUNT 5.1 10^3/uL (4.0-10.0)
== END ==
LOC: M SHH 12:10
PROVIDERS: ATTEND Internal Medicine Hematology & Oncology
DX: D64.9 Anemia, unspecified (principal); N18.9 Chronic kidney disease, unspecified

== ENCOUNTER → 2024-07-15 | Outpatient (REF) | payer MEDICARE, OTHER ==
[~2024-07-15] MED LIST changes: +METH-855
[2024-07-16 09:23] LABS: CREATININE FOR GFR 1.62 MG/DL (0.55-1.30); GLOMERULAR FILTRATION RATE 33.7 (>45); POTASSIUM SERUM 3.2 MMOL/L (3.5-5.1)
[2024-07-16 09:24] LABS: CALCIUM LEVEL 9.8 MG/DL (8.3-10.6); MAGNESIUM LEVEL 2.1 MG/DL (1.8-2.4)
== END ==
LOC: M SHH 09:21
PROVIDERS: ATTEND Internal Medicine
DX: E87.70 Fluid overload, unspecified (principal); D64.9 Anemia, unspecified; N18.9 Chronic kidney disease, unspecified

== ENCOUNTER → 2024-07-17 | Outpatient (REF) | payer MEDICARE, OTHER ==
[~2024-07-17] MED LIST changes: -METH-855
[2024-07-17 15:42] LABS: APPEARANCE, URINE CLOUDY (CLEAR); BACTERIA, URINE AUTO 2+ (NEGATIVE); BILIRUBIN, URINE AUTO NEGATIVE (NEGATIVE); BLOOD, URINE BLOOD 2+ (NEGATIVE); COLOR, URINE YELLOW (YELLOW); GLUCOSE, URINE (UA) AUTO 1+ mg/dL (NEGATIVE); KETONE, URINE AUTO NEGATIVE (NEGATIVE); LEUKOCYTE ESTERASE, URINE AUTO 3+ (NEGATIVE); NITRITE, URINE AUTO NEGATIVE (NEGATIVE); PROTEIN, URINE AUTO 3+ mg/dL (NEGATIVE); RBC, URINE AUTO 57 /HPF (0-3); SPECIFIC GRAVITY URINE AUTO 1.012 (1.002-1.035); SQUAMOUS EPITHELIAL CELL UR AU 1 /HPF (0-6); UROBILINOGEN, URINE AUTO 0.2 mg/dL (0.0-2.0); WBC, URINE AUTO TNTC /HPF (0-3)
== END ==
LOC: M SFHCPLAZ 15:19
PROVIDERS: ATTEND Internal Medicine Infectious Disease
DX: N39.0 Urinary tract infection, site not specified (principal)

== ENCOUNTER → 2024-07-18 | Outpatient (REF) | payer MEDICARE, OTHER ==
[~2024-07-18] MED LIST changes: +METH-855
== END ==
LOC: M SHH 07-15 14:14
PROVIDERS: ATTEND Internal Medicine Cardiovascular Disease
DX: I10 Essential (primary) hypertension (principal); I50.9 Heart failure, unspecified

== ENCOUNTER 2024-07-19 15:17 | Outpatient (CLI) | payer MEDICARE, OTHER ==
[~2024-07-19] VITALS: Ht 167.6 cm; Wt 59.6 kg
[~2024-07-19 15:17] MED LIST changes: -METH-855
[2024-07-19 15:20] VITALS: BP 127/62; O2SAT 99
[2024-07-19] MEDS: ERTAPENEM SODIUM 1 GM in NS MINI-BAG PLUS 50 ML IV ONE (15:24)
[2024-07-19] MEDS: SODIUM CHLORIDE 0.9% INJ 10 ML SYR IV PRN (16:02)
[2024-07-19 16:10] VITALS: BP 130/65; O2SAT 99
== END 2024-07-19 16:10 | disposition home or self-care (01) ==
LOC: M INFU 15:17
PROVIDERS: ATTEND Internal Medicine Hematology & Oncology
DX: N39.0 Urinary tract infection, site not specified (principal); B96.1 Klebsiella pneumoniae [K. pneumoniae] as the cause of diseases classified elsewhere; Z16.12 Extended spectrum beta lactamase (ESBL) resistance; Z88.3 Allergy status to other anti-infective agents; Z91.89 Other specified personal risk factors, not elsewhere classified; Z88.8 Allergy status to other drugs, medicaments and biological substances; Z91.041 Radiographic dye allergy status
CPT/HCPCS: 96365; J1335; J1642

== ENCOUNTER 2024-07-20 15:01 | Outpatient (CLI) | payer MEDICARE, OTHER ==
[2024-07-20 15:42] VITALS: BP 135/70; TEMP 98.6; O2SAT 96
[2024-07-20] MEDS: NS 1,000 ML IV SCH (15:45)
[2024-07-20] MEDS: ERTAPENEM SODIUM 1 GM in NS MINI-BAG PLUS 50 ML IV ONE (15:45)
[2024-07-20 16:30] VITALS: BP 134/67; TEMP 98.2; O2SAT 99
[2024-07-20] MEDS: SODIUM CHLORIDE 0.9% INJ 10 ML SYR IV PRN (16:32)
== END 2024-07-20 16:50 | disposition home or self-care (01) ==
LOC: M OPCLI5PR 15:01 → M MS5PR 15:08 → M OPCLI5PR 16:50
PROVIDERS: ATTEND Internal Medicine Hematology & Oncology
DX: N39.0 Urinary tract infection, site not specified (principal); B96.1 Klebsiella pneumoniae [K. pneumoniae] as the cause of diseases classified elsewhere; Z16.12 Extended spectrum beta lactamase (ESBL) resistance; Z91.041 Radiographic dye allergy status; Z91.89 Other specified personal risk factors, not elsewhere classified; Z88.1 Allergy status to other antibiotic agents; Z88.8 Allergy status to other drugs, medicaments and biological substances
CPT/HCPCS: 96365; J1335; J1642

== ENCOUNTER 2024-07-21 14:55 | Outpatient (CLI) | payer MEDICARE, OTHER ==
[2024-07-21 15:35] VITALS: BP 132/75; TEMP 97.8; O2SAT 95
[2024-07-21] MEDS: NS 1,000 ML IV SCH (15:37)
[2024-07-21] MEDS: ERTAPENEM SODIUM 1 GM in NS MINI-BAG PLUS 50 ML IV ONE (15:37)
[2024-07-21] MEDS: SODIUM CHLORIDE 0.9% INJ 10 ML SYR IV PRN (16:44)
[2024-07-21 16:48] VITALS: BP 140/80; TEMP 97.7; O2SAT 95
== END 2024-07-21 17:00 | disposition home or self-care (01) ==
LOC: M OPCLI5PR 14:55 → M MS5PR 15:10 → M OPCLI5PR 17:00
PROVIDERS: ATTEND Internal Medicine Hematology & Oncology
DX: N39.0 Urinary tract infection, site not specified (principal); B96.1 Klebsiella pneumoniae [K. pneumoniae] as the cause of diseases classified elsewhere; Z16.12 Extended spectrum beta lactamase (ESBL) resistance; Z88.8 Allergy status to other drugs, medicaments and biological substances; Z88.1 Allergy status to other antibiotic agents; Z91.041 Radiographic dye allergy status; Z91.89 Other specified personal risk factors, not elsewhere classified
CPT/HCPCS: 96365; 96366; J1335; J1642

== ENCOUNTER 2024-07-22 15:59 | Outpatient (CLI) | payer MEDICARE, OTHER ==
[2024-07-22] MEDS: ERTAPENEM SODIUM 1 GM in NS MINI-BAG PLUS 50 ML IV ONE (15:30)
[~2024-07-22 15:59] MED LIST changes: -METH-855
[2024-07-22 16:00] VITALS: BP 137/67; O2SAT 99
[2024-07-22] MEDS: SODIUM CHLORIDE 0.9% INJ 10 ML SYR IV PRN (16:58)
[2024-07-22 17:05] VITALS: BP 146/75; O2SAT 99
[2024-07-23] MEDS ORDERED: METH-855 (13:44)
== END 2024-07-22 17:05 ==
LOC: M INFU 15:59
PROVIDERS: ATTEND Internal Medicine Hematology & Oncology
DX: N39.0 Urinary tract infection, site not specified (principal); B96.1 Klebsiella pneumoniae [K. pneumoniae] as the cause of diseases classified elsewhere; Z16.12 Extended spectrum beta lactamase (ESBL) resistance; Z88.8 Allergy status to other drugs, medicaments and biological substances; Z91.041 Radiographic dye allergy status; Z91.89 Other specified personal risk factors, not elsewhere classified; N18.9 Chronic kidney disease, unspecified
CPT/HCPCS: 36415; 80053; 80069; 81001; 83615; 83735; 85025; 86850; 86900; 86901; 96365; J1335; J1642

== ENCOUNTER → 2024-07-22 | Outpatient (REF) | payer MEDICARE, OTHER ==
[~2024-07-22] MED LIST changes: +METH-855
[2024-07-22 16:09] LABS: ALBUMIN 3.4 G/DL (3.2-5.2); CALCIUM LEVEL 8.8 MG/DL (8.3-10.6); CREATININE FOR GFR 1.55 MG/DL (0.55-1.30); GLOMERULAR FILTRATION RATE 35.5 (>45); MAGNESIUM LEVEL 2.2 MG/DL (1.8-2.4); PHOSPHORUS LEVEL 3.7 MG/DL (2.4-5.1); POTASSIUM SERUM 3.5 MMOL/L (3.5-5.1)
== END ==
LOC: M LAB REF 15:09
PROVIDERS: ATTEND Internal Medicine Nephrology
DX: N18.9 Chronic kidney disease, unspecified (principal)

== ENCOUNTER 2024-07-23 13:15 | Outpatient (CLI) | payer MEDICARE, OTHER ==
[2024-07-23 13:15] VITALS: BP 148/76; O2SAT 98
[2024-07-23] MEDS ORDERED: METH-855 (13:44)
[2024-07-23] MEDS: SODIUM CHLORIDE 0.9% INJ 10 ML SYR IV PRN (15:28)
[2024-07-23] MEDS: ERTAPENEM SODIUM 1 GM in NS MINI-BAG PLUS 50 ML IV ONE (15:29)
[2024-07-23 16:13] VITALS: BP 122/60; O2SAT 99
== END 2024-07-23 16:15 ==
LOC: M INFU 13:15
PROVIDERS: ATTEND Internal Medicine Hematology & Oncology
DX: N39.0 Urinary tract infection, site not specified (principal); B96.1 Klebsiella pneumoniae [K. pneumoniae] as the cause of diseases classified elsewhere; Z16.12 Extended spectrum beta lactamase (ESBL) resistance; Z88.8 Allergy status to other drugs, medicaments and biological substances; Z88.1 Allergy status to other antibiotic agents; Z91.89 Other specified personal risk factors, not elsewhere classified; Z91.041 Radiographic dye allergy status
CPT/HCPCS: 96365; J1335; J1642

== ENCOUNTER 2024-07-24 15:50 | Outpatient (CLI) | payer MEDICARE, OTHER ==
[~2024-07-24] VITALS: Ht 165.1 cm; Wt 70.5 kg
[~2024-07-24 15:50] MED LIST changes: +METH-855
[2024-07-24] MEDS: ERTAPENEM SODIUM 1 GM in NS MINI-BAG PLUS 50 ML IV ONE (15:58)
[2024-07-24] MEDS: SODIUM CHLORIDE 0.9% INJ 10 ML SYR IV PRN (15:59)
[2024-07-24 16:00] VITALS: BP 152/82; O2SAT 99
[2024-07-24] MEDS ORDERED: NS 250 ML IV SCH (16:00)
[2024-07-24 16:33] VITALS: BP 121/57; O2SAT 96
== END 2024-07-24 16:35 ==
LOC: M INFU 15:50
PROVIDERS: ATTEND Internal Medicine Hematology & Oncology
DX: N39.0 Urinary tract infection, site not specified (principal); B96.1 Klebsiella pneumoniae [K. pneumoniae] as the cause of diseases classified elsewhere; Z16.12 Extended spectrum beta lactamase (ESBL) resistance; Z88.8 Allergy status to other drugs, medicaments and biological substances; Z88.1 Allergy status to other antibiotic agents; Z91.89 Other specified personal risk factors, not elsewhere classified; Z91.041 Radiographic dye allergy status
CPT/HCPCS: 96365; J1335; J1642

== ENCOUNTER 2024-07-25 14:50 | Outpatient (CLI) | payer MEDICARE, OTHER ==
[~2024-07-25] VITALS: Ht 165.1 cm; Wt 70.5 kg
[~2024-07-25 14:50] MED LIST changes: -GABA-1171; +GABA-1171 PO; -METH-855; +SODIUM CHLORIDE 0.9% INJ 10 ML SYR IV PRN
[2024-07-25] MEDS: ERTAPENEM SODIUM 1 GM in NS MINI-BAG PLUS 50 ML IV ONE (15:23)
[2024-07-25] MEDS ORDERED: SODIUM CHLORIDE 0.9% INJ 10 ML SYR IV PRN (15:30)
[2024-07-25] MEDS ORDERED: NS 250 ML IV SCH (15:30)
[2024-07-25 15:54] VITALS: BP 155/77; O2SAT 98
== END 2024-07-26 16:00 ==
LOC: M INFU 14:50
PROVIDERS: ATTEND Internal Medicine Hematology & Oncology
DX: N39.0 Urinary tract infection, site not specified (principal); B96.1 Klebsiella pneumoniae [K. pneumoniae] as the cause of diseases classified elsewhere; Z16.12 Extended spectrum beta lactamase (ESBL) resistance; Z91.041 Radiographic dye allergy status; Z91.89 Other specified personal risk factors, not elsewhere classified; Z88.1 Allergy status to other antibiotic agents; Z88.8 Allergy status to other drugs, medicaments and biological substances
CPT/HCPCS: 96365; J1335

== ENCOUNTER → 2024-07-26 | Outpatient (CLI) | payer MEDICARE, OTHER ==
[~2024-07-26] MED LIST changes: +NS 250 ML IV SCH; +SLOWTAB2 PO; -SODIUM CHLORIDE 0.9% INJ 10 ML SYR IV PRN
[2024-07-26] MEDS: ERTAPENEM SODIUM 1 GM in NS MINI-BAG PLUS 50 ML IV ONE (15:31)
[2024-07-26] MEDS: SODIUM CHLORIDE 0.9% INJ 10 ML SYR IV PRN (16:01)
[2024-07-26 16:09] VITALS: BP 150/75; O2SAT 98
== END ==
LOC: M INFU 15:14
PROVIDERS: ATTEND Internal Medicine Hematology & Oncology
DX: N39.0 Urinary tract infection, site not specified (principal); B96.1 Klebsiella pneumoniae [K. pneumoniae] as the cause of diseases classified elsewhere; Z16.12 Extended spectrum beta lactamase (ESBL) resistance; Z91.89 Other specified personal risk factors, not elsewhere classified; Z88.1 Allergy status to other antibiotic agents; Z88.8 Allergy status to other drugs, medicaments and biological substances; Z91.041 Radiographic dye allergy status
CPT/HCPCS: 96365; J1335; J1642

== ENCOUNTER 2024-07-27 11:42 | Observation (INO) | payer MEDICARE, OTHER ==
[~2024-07-27] VITALS: Ht 165.1 cm; Wt 68.9 kg
[2024-07-27] VITALS (8 sets, daily range): BP systolic 112–168; BP diastolic 56–74; TEMP 97.9–98.9; O2SAT 94–98
[~2024-07-27 11:42] MED LIST changes: -NS 250 ML IV SCH; -SLOWTAB2 PO
[2024-07-27 12:37] LABS: BASO % 0.1 % (0.0-1.0); EOS % 0.6 % (0.0-3.0); HEMATOCRIT 24.9 % (36.0-47.0); HEMOGLOBIN 8.7 g/dl (12.0-15.5); LYMPH # 1.5 10^3/uL (1.5-5.0); LYMPH % 21.5 % (24.0-44.0); MEAN CORPUSCULAR HEMOGLOBIN 33.1 pg (27.0-33.0); MEAN CORPUSCULAR HGB CONC 34.9 g/dl (32.0-36.5); MEAN CORPUSCULAR VOLUME 94.7 fl (80.0-96.0); MONO % 14.4 % (2.0-8.0); NEUTROPHILS # 4.4 10^3/uL (1.5-8.5); NEUTROPHILS % 63.3 % (36.0-66.0); PLATELET COUNT, AUTOMATED 218 10^3/uL (150-450); RED BLOOD COUNT 2.63 10^6/uL (4.00-5.40); WHITE BLOOD COUNT 6.9 10^3/uL (4.0-10.0)
[2024-07-27 12:49] LABS: INR 2.21; PARTIAL THROMBOPLASTIN TIME 46.6 SECONDS (24.8-34.2); PROTHROMBIN TIME 23.8 SECONDS (12.5-14.5)
[2024-07-27 13:02] LABS: CK-MB VALUE MASS < 1.0 NG/ML (<3.6)
[2024-07-27 13:03] LABS: BLOOD UREA NITROGEN 60 MG/DL (9-23); CALCIUM LEVEL 9.2 MG/DL (8.3-10.6); CARBON DIOXIDE LEVEL 31 MMOL/L (20-31); CHLORIDE LEVEL 100 MMOL/L (98-107); CREATININE FOR GFR 1.81 MG/DL (0.55-1.30); DIGOXIN LEVEL 0.7 NG/ML (0.8-2.0); GLOMERULAR FILTRATION RATE 29.7 (>45); GLUCOSE, FASTING 127 MG/DL (74-106); MAGNESIUM LEVEL 2.2 MG/DL (1.8-2.4); SODIUM LEVEL 137 MMOL/L (136-145)
[2024-07-27 13:05] LABS: FREE T4 0.99 NG/DL (0.89-1.76)
[2024-07-27 13:08] LABS: CPK CREATINE PHOSPHOKINASE 116 U/L (34-145); MB/CK RELATIVE INDEX 0.86 (< OR =4)
[2024-07-27] MEDS: NS 1,000 ML IV SCH (13:10)
[2024-07-27] MEDS ORDERED: SODIUM CHLORIDE 0.9% INJ 10 ML SYR IV PRN (13:50)
[2024-07-27] MEDS: ERTAPENEM SODIUM 1 GM in NS MINI-BAG PLUS 50 ML IV ONE (14:47)
[2024-07-27] MEDS: POTASSIUM CHLORIDE 10MEQ SR TABLET PO ONE ×2 (14:47→17:18)
[2024-07-27 14:52] LABS: CK-MB VALUE MASS < 1.0 NG/ML (<3.6)
[2024-07-27 14:54] LABS: CPK CREATINE PHOSPHOKINASE 114 U/L (34-145); MB/CK RELATIVE INDEX 0.87 (< OR =4)
[2024-07-27] MEDS ORDERED: MAALOX 30 ML SUSP *UDC PO PRN (15:45)
[2024-07-27] MEDS ORDERED: MOM 30ML SUSPENSION UDC PO PRN (15:45)
[2024-07-27 16:40] LABS: PERCENT SATURATION 23.1 % (13.2-45.0)
[2024-07-27 16:42] LABS: VITAMIN B12 LEVEL 1131 PG/ML (211-911)
[2024-07-27 16:43] LABS: FERRITIN 281.4 NG/ML (7.3-270.7); FOLATE > 24.00 NG/ML (>5.4)
[2024-07-27 16:52] LABS: PROCALCITONIN 0.11 ng/ml
[2024-07-27] MEDS: ACETAMINOPHEN TAB 650MG DOSE (2X325MG) PO PRN (17:19)
[2024-07-27] MEDS ORDERED: MED REC IN PROGRESS XX SCH (18:55)
[2024-07-27] MEDS ORDERED: CYCLOBENZAPRINE 10MG TABLET PO PRN (21:30)
[2024-07-27] MEDS: ULTRACET TAB PO PRN (22:00)
[2024-07-27] MEDS: TORSEMIDE 20 MG TAB PO SCH (22:00)
[2024-07-27] MEDS: MONTELUKAST 10 MG TAB PO SCH (22:02)
[2024-07-27] MEDS: oxyBUTYnin *DITROPAN XL* 5 MG TABCR PO SCH (22:02)
[2024-07-27] MEDS: SERTRALINE HCL 50 MG TAB PO SCH (22:02)
[2024-07-27] MEDS: DOCUSATE SODIUM 100MG CAPSULE PO SCH (22:02)
[2024-07-27] MEDS: traZODone 50 MG TAB PO SCH (22:02)
[2024-07-27] MEDS: APIXABAN 5 MG TAB (ELIQUIS) PO SCH (22:02)
[2024-07-27] MEDS: PRAMIPEXOLE (MIRAPEX) 0.125 MG TAB PO SCH (22:28)
[2024-07-28] MEDS: ACYCLOVIR 200 MG CAPSULE PO SCH (00:32)
[2024-07-28 03:59] VITALS: BP 120/56; TEMP 97.8; O2SAT 95
[2024-07-28 06:46] LABS: BASO % 0.3 % (0.0-1.0); EOS % 0.8 % (0.0-3.0); HEMATOCRIT 26.4 % (36.0-47.0); HEMOGLOBIN 9.1 g/dl (12.0-15.5); LYMPH # 1.1 10^3/uL (1.5-5.0); LYMPH % 27.9 % (24.0-44.0); MEAN CORPUSCULAR HEMOGLOBIN 32.9 pg (27.0-33.0); MEAN CORPUSCULAR HGB CONC 34.5 g/dl (32.0-36.5); MEAN CORPUSCULAR VOLUME 95.3 fl (80.0-96.0); MONO # 0.6 10^3/uL (0.0-0.8); MONO % 15.4 % (2.0-8.0); NEUTROPHILS # 2.2 10^3/uL (1.5-8.5); NEUTROPHILS % 55.3 % (36.0-66.0); PLATELET COUNT, AUTOMATED 171 10^3/uL (150-450); RED BLOOD COUNT 2.77 10^6/uL (4.00-5.40); WHITE BLOOD COUNT 3.9 10^3/uL (4.0-10.0)
[2024-07-28 07:15] LABS: CREATININE FOR GFR 1.76 MG/DL (0.55-1.30); GLOMERULAR FILTRATION RATE 30.7 (>45); MAGNESIUM LEVEL 2.2 MG/DL (1.8-2.4); POTASSIUM SERUM 3.6 MMOL/L (3.5-5.1)
[2024-07-28 07:43] VITALS: BP 122/60; TEMP 98; O2SAT 95
[2024-07-28] MEDS: DIGOXIN 0.0625MG PER 1/2TABLET PO SCH (08:08)
[2024-07-28] MEDS: allopurinoL 100 MG TAB PO SCH (08:08)
[2024-07-28 08:09] VITALS: BP 122/60
[2024-07-28] MEDS: HYDROXYCHLOROQUINE 200 MG TAB PO SCH (08:09)
[2024-07-28] MEDS: METOPROLOL SUCC (TopROL XL) 100MG *XL* TAB PO SCH (08:09)
[2024-07-28] MEDS ORDERED: diphenhydrAMINE 25MG CAP PO PRN (10:30)
[2024-07-28] MEDS ORDERED: HYDROCORTISONE 1% CREAM 30GM TOP PRN (10:30)
[2024-07-28] MEDS ORDERED: [UNRECOGNIZED DRUG - REMARK] PO PRN (10:30)
[2024-07-28] MEDS ORDERED: TORS20TA2 PO (10:37)
[2024-07-28 12:00] VITALS: BP 120/66; TEMP 97.9; O2SAT 96
[2024-07-28] MEDS ORDERED: ERYTHROMYCIN ETHYLSUCCINATE PO SCH (12:30)
[2024-07-28] MEDS ORDERED: ENTER DRUG NAME HERE (PATIENT'S OWN MED) PO SCH (12:30)
[2024-07-28] MEDS: FOLIC ACID 1MG TAB PO SCH (13:27)
[2024-07-28] MEDS: LACTOBACILLUS ACIDOPHILUS CAP (BACID) PO SCH (13:27)
[2024-07-28] MEDS: CREON-24 CAPSULE (PANCRELIPASE) PO SCH (13:27)
[2024-07-28] MEDS: CREON-12 CAPSULE (PANCRELIPASE) PO SCH (13:28)
[2024-07-28] MEDS: METHENAMINE HIPPURATE 1GM TABLET PO SCH (14:35)
[2024-07-28] MEDS: ERTAPENEM SODIUM 1 GM in NS MINI-BAG PLUS 50 ML IV SCH (14:35)
[2024-07-28] MEDS: SODIUM CHLORIDE 0.9% INJ 10 ML SYR IV SCH (15:17)
[2024-07-28 16:26] VITALS: BP 91/70; TEMP 97; O2SAT 98
[2024-07-28] MEDS ORDERED: MAGNESIUM OXIDE 400MG TAB (MAG-OX) PO SCH (21:00)
[2024-07-28] MEDS ORDERED: JAKAFI PO SCH (21:00)
[2024-07-28] MEDS ORDERED: GABAPENTIN 100 MG CAP PO SCH (21:00)
[2024-07-29] MEDS ORDERED: DOCUSATE SODIUM 100MG CAPSULE PO SCH (09:00)
[2024-07-29] MEDS ORDERED: BACTRIM 160MG/800MG DS TAB PO SCH (09:00)
== END 2024-07-28 15:37 | disposition home health service (06) ==
LOC: M ED 11:42 → M ED INP 11:43 → M PCU 16:44
PROVIDERS: ADMIT Internal Medicine; ATTEND Internal Medicine
DX: R55 Syncope and collapse (principal); R30.0 Dysuria; Z87.440 Personal history of urinary (tract) infections; B96.1 Klebsiella pneumoniae [K. pneumoniae] as the cause of diseases classified elsewhere; D64.9 Anemia, unspecified; N18.30 Chronic kidney disease, stage 3 unspecified; R94.4 Abnormal results of kidney function studies; E87.6 Hypokalemia; I48.11 Longstanding persistent atrial fibrillation; N17.9 Acute kidney failure, unspecified; I13.10 Hypertensive heart and chronic kidney disease without heart failure, with stage 1 through stage 4 chronic kidney disease, or unspecified chronic kidney disease; I50.20 Unspecified systolic (congestive) heart failure; G47.33 Obstructive sleep apnea (adult) (pediatric); M10.9 Gout, unspecified; L98.9 Disorder of the skin and subcutaneous tissue, unspecified; M79.7 Fibromyalgia; G25.81 Restless legs syndrome; D75.81 Myelofibrosis; Z94.84 Stem cells transplant status; M32.9 Systemic lupus erythematosus, unspecified; K86.89 Other specified diseases of pancreas; R60.0 Localized edema; N32.81 Overactive bladder; J30.9 Allergic rhinitis, unspecified; J90 Pleural effusion, not elsewhere classified; I34.0 Nonrheumatic mitral (valve) insufficiency; I34.81 Nonrheumatic mitral (valve) annulus calcification; I36.1 Nonrheumatic tricuspid (valve) insufficiency; I37.1 Nonrheumatic pulmonary valve insufficiency; Z88.8 Allergy status to other drugs, medicaments and biological substances; Z88.1 Allergy status to other antibiotic agents; Z91.048 Other nonmedicinal substance allergy status; Z91.018 Allergy to other foods; Z79.899 Other long term (current) drug therapy; Z79.01 Long term (current) use of anticoagulants; Z79.2 Long term (current) use of antibiotics
CPT/HCPCS: 36415; 70450; 71046; 72125; 80048; 80162; 81001; 82550; 82553; 82607; 82728; 82746; 83550; 83735; 84145; 84439; 84443; 84466; 84484; 85025; 85046; 85610; 85730; 86850; 86900; 86901; 86920; 93005; 93041; 94760; 96374; 96376; 97162; 99285; G0378; J1335; J1642; P9040

== ENCOUNTER 2024-07-29 16:00 | Outpatient (CLI) | payer MEDICARE, OTHER ==
[~2024-07-29] VITALS: Ht 165.1 cm; Wt 68.9 kg
[~2024-07-29 16:00] MED LIST changes: +GABA-1172 PO; -GABA-282 PO; +NS 250 ML IV SCH
[2024-07-29] MEDS: ERTAPENEM SODIUM 1 GM in NS MINI-BAG PLUS 50 ML IV ONE (16:18)
[2024-07-29 17:19] VITALS: BP 165/88; O2SAT 99
[2024-07-30] MEDS ORDERED: SLOWTAB2 PO (14:27)
[2024-07-30] MEDS ORDERED: EZET10TA21 PO (14:27)
== END 2024-07-29 17:20 ==
LOC: M INFU 16:00
PROVIDERS: ATTEND Internal Medicine Hematology & Oncology
DX: N39.0 Urinary tract infection, site not specified (principal); B96.1 Klebsiella pneumoniae [K. pneumoniae] as the cause of diseases classified elsewhere; Z16.12 Extended spectrum beta lactamase (ESBL) resistance; Z88.8 Allergy status to other drugs, medicaments and biological substances; Z88.1 Allergy status to other antibiotic agents; Z91.89 Other specified personal risk factors, not elsewhere classified
CPT/HCPCS: 36591; 80053; 85025; 96365; J1335

== ENCOUNTER 2024-07-30 08:50 | Observation (INO) | payer MEDICARE, OTHER ==
[~2024-07-30] VITALS: Ht 165.1 cm; Wt 64.2 kg
[~2024-07-30 08:50] MED LIST changes: -NS 250 ML IV SCH
[2024-07-30 09:51] LABS: BASO % 0.1 % (0.0-1.0); EOS % 0.2 % (0.0-3.0); HEMATOCRIT 29.2 % (36.0-47.0); HEMOGLOBIN 10.1 g/dl (12.0-15.5); LYMPH # 1.3 10^3/uL (1.5-5.0); LYMPH % 16.3 % (24.0-44.0); MEAN CORPUSCULAR HEMOGLOBIN 32.6 pg (27.0-33.0); MEAN CORPUSCULAR HGB CONC 34.6 g/dl (32.0-36.5); MEAN CORPUSCULAR VOLUME 94.2 fl (80.0-96.0); NEUTROPHILS # 5.8 10^3/uL (1.5-8.5); NEUTROPHILS % 71.2 % (36.0-66.0); PLATELET COUNT, AUTOMATED 192 10^3/uL (150-450); WHITE BLOOD COUNT 8.2 10^3/uL (4.0-10.0)
[2024-07-30 10:11] LABS: INR 2.06; PARTIAL THROMBOPLASTIN TIME 42.8 SECONDS (24.8-34.2); PROTHROMBIN TIME 22.5 SECONDS (12.5-14.5)
[2024-07-30 10:28] LABS: LIPASE 34 U/L (12-53)
[2024-07-30 10:29] LABS: AMYLASE 30 U/L (30-118)
[2024-07-30 10:34] LABS: ALBUMIN 3.2 G/DL (3.2-5.2); ALKALINE PHOSPHATASE 133 U/L (46-116); ALT/SGPT 28 U/L (7.0-40); AST/SGOT 27 U/L (<34); BILIRUBIN,DIRECT < 0.1 MG/DL (<0.4); BILIRUBIN,TOTAL 0.3 MG/DL (0.3-1.2); BLOOD UREA NITROGEN 66 MG/DL (9-23); CALCIUM LEVEL 9.1 MG/DL (8.3-10.6); CARBON DIOXIDE LEVEL 32 MMOL/L (20-31); CHLORIDE LEVEL 101 MMOL/L (98-107); CREATININE FOR GFR 1.94 MG/DL (0.55-1.30); GLOMERULAR FILTRATION RATE 27.4 (>45); GLUCOSE, FASTING 99 MG/DL (74-106); POTASSIUM SERUM 3.3 MMOL/L (3.5-5.1); SODIUM LEVEL 141 MMOL/L (136-145); TOTAL PROTEIN 5.7 G/DL (5.7-8.2)
[2024-07-30] MEDS: POTASSIUM CHLORIDE 10MEQ SR TABLET PO ONE (11:37)
[2024-07-30 11:48] LABS: MAGNESIUM LEVEL 2.2 MG/DL (1.8-2.4)
[2024-07-30] MEDS ORDERED: **NOTE PATIENT COMMENT** MISC XX SCH ×2 (14:20→14:45)
[2024-07-30] MEDS ORDERED: EZET10TA21 PO (14:27)
[2024-07-30] MEDS ORDERED: SLOWTAB2 PO (14:27)
[2024-07-30] MEDS ORDERED: HOME MED LIST COMPLETE! XX SCH (14:35)
[2024-07-30] MEDS ORDERED: diphenhydrAMINE 25MG CAP PO PRN (14:40)
[2024-07-30] MEDS ORDERED: LACTULOSE 20GM/30ML SYRUP UDC PO PRN (14:40)
[2024-07-30] MEDS: TORSEMIDE 20 MG TAB PO SCH (16:13)
[2024-07-30] MEDS: POTASSIUM CHLORIDE 10% LIQ 20MEQ/15ML UDC PO SCH (16:14)
[2024-07-30] MEDS: LACTOBACILLUS ACIDOPHILUS CAP (BACID) PO SCH (16:14)
[2024-07-30] MEDS: CREON-24 CAPSULE (PANCRELIPASE) PO SCH (18:26)
[2024-07-30] MEDS: CREON-12 CAPSULE (PANCRELIPASE) PO SCH (18:26)
[2024-07-30 20:55] VITALS: BP 174/81; TEMP 98.1; O2SAT 98
[2024-07-30 21:11] LABS: CK-MB VALUE MASS < 1.0 NG/ML (<3.6); CPK CREATINE PHOSPHOKINASE 107 U/L (34-145); MB/CK RELATIVE INDEX 0.93 (< OR =4)
[2024-07-30] MEDS: SERTRALINE HCL 50 MG TAB PO SCH (21:32)
[2024-07-30] MEDS: oxyBUTYnin *DITROPAN XL* 5 MG TABCR PO SCH (21:32)
[2024-07-30] MEDS: MONTELUKAST 10 MG TAB PO SCH (21:32)
[2024-07-30] MEDS: GABAPENTIN 100 MG CAP PO SCH (21:32)
[2024-07-30] MEDS: APIXABAN 5 MG TAB (ELIQUIS) PO SCH (21:32)
[2024-07-30] MEDS: CYCLOBENZAPRINE 10MG TABLET PO PRN (21:32)
[2024-07-30] MEDS: traZODone 50 MG TAB PO SCH (21:32)
[2024-07-30] MEDS: ACYCLOVIR 200 MG CAPSULE PO SCH (21:33)
[2024-07-30] MEDS: METHENAMINE HIPPURATE 1GM TABLET PO SCH (21:33)
[2024-07-30] MEDS: ULTRACET TAB PO PRN (21:33)
[2024-07-30] MEDS: PRAMIPEXOLE (MIRAPEX) 0.125 MG TAB PO SCH (21:33)
[2024-07-31 00:28] VITALS: BP 164/79; TEMP 97.9; O2SAT 97
[2024-07-31 04:14] VITALS: BP 151/69; TEMP 97.7; O2SAT 93
[2024-07-31 04:53] LABS: HEMATOCRIT 29.4 % (36.0-47.0); HEMOGLOBIN 10.2 g/dl (12.0-15.5); MEAN CORPUSCULAR HEMOGLOBIN 32.9 pg (27.0-33.0); MEAN CORPUSCULAR HGB CONC 34.7 g/dl (32.0-36.5); MEAN CORPUSCULAR VOLUME 94.8 fl (80.0-96.0); PLATELET COUNT, AUTOMATED 187 10^3/uL (150-450); WHITE BLOOD COUNT 5.4 10^3/uL (4.0-10.0)
[2024-07-31 05:22] LABS: CK-MB VALUE MASS < 1.0 NG/ML (<3.6)
[2024-07-31 05:24] LABS: BLOOD UREA NITROGEN 61 MG/DL (9-23); CALCIUM LEVEL 9.3 MG/DL (8.3-10.6); CARBON DIOXIDE LEVEL 32 MMOL/L (20-31); CHLORIDE LEVEL 106 MMOL/L (98-107); CREATININE FOR GFR 1.74 MG/DL (0.55-1.30); GLOMERULAR FILTRATION RATE 31.1 (>45); GLUCOSE, FASTING 81 MG/DL (74-106); MAGNESIUM LEVEL 2.1 MG/DL (1.8-2.4); POTASSIUM SERUM 3.8 MMOL/L (3.5-5.1); SODIUM LEVEL 142 MMOL/L (136-145)
[2024-07-31 05:26] LABS: CPK CREATINE PHOSPHOKINASE 69 U/L (34-145); MB/CK RELATIVE INDEX 1.44 (< OR =4)
[2024-07-31 08:03] VITALS: BP 153/73; TEMP 97.8; O2SAT 97
[2024-07-31] MEDS: allopurinoL 100 MG TAB PO SCH (08:24)
[2024-07-31] MEDS: EZETIMIBE 10MG TABLET (ZETIA) PO SCH (08:24)
[2024-07-31] MEDS: DOCUSATE SODIUM 100MG CAPSULE PO SCH (08:24)
[2024-07-31] MEDS: BACTRIM 160MG/800MG DS TAB PO SCH (08:24)
[2024-07-31] MEDS: FOLIC ACID 1MG TAB PO SCH (08:27)
[2024-07-31] MEDS: DIGOXIN 0.125 MG TAB PO SCH (08:27)
[2024-07-31] MEDS: HYDROXYCHLOROQUINE 200 MG TAB PO SCH (08:27)
[2024-07-31] MEDS: METOPROLOL SUCC (TopROL XL) 100MG *XL* TAB PO SCH (08:35)
[2024-07-31] MEDS: FLUBLOK(EGGFREE) TRIVAL(24-25) VACCINE PF 0.5ML SYRINGE 18YRS & OLDER IM.IMMUN ONE (09:00)
[2024-07-31 12:13] LABS: MB/CK RELATIVE INDEX 1.23 (< OR =4)
[2024-07-31] MEDS: UNRESOLVED PATIENT OWN MED ORDER XX SCH (12:15)
[2024-07-31 12:42] VITALS: BP 146/76; TEMP 97.7; O2SAT 97
[2024-07-31] MEDS: JAKAFI 5 MG PO SCH (12:46)
[2024-07-31] MEDS: ACETAMINOPHEN 650MG ER TAB (TYLENOL ARTHRITIS) PO PRN (15:30)
[2024-07-31 15:47] VITALS: BP 135/70; TEMP 98; O2SAT 96
[2024-07-31] MEDS: ERYTHROMYCIN ETHYLSUCCINATE PO SCH (17:51)
[2024-07-31 19:13] VITALS: BP 121/64; TEMP 98.6; O2SAT 95
[2024-08-01 00:14] VITALS: BP 115/55; TEMP 98.5; O2SAT 95
[2024-08-01 04:21] VITALS: BP 132/64; TEMP 97.9; O2SAT 95
[2024-08-01 06:25] LABS: HEMATOCRIT 31.3 % (36.0-47.0); HEMOGLOBIN 10.6 g/dl (12.0-15.5); MEAN CORPUSCULAR HEMOGLOBIN 32.9 pg (27.0-33.0); MEAN CORPUSCULAR HGB CONC 33.9 g/dl (32.0-36.5); MEAN CORPUSCULAR VOLUME 97.2 fl (80.0-96.0); PLATELET COUNT, AUTOMATED 198 10^3/uL (150-450); RED BLOOD COUNT 3.22 10^6/uL (4.00-5.40); WHITE BLOOD COUNT 4.5 10^3/uL (4.0-10.0)
[2024-08-01 06:48] LABS: CREATININE FOR GFR 2.2 MG/DL (0.55-1.30); GLOMERULAR FILTRATION RATE 23.7 (>45); POTASSIUM SERUM 4.4 MMOL/L (3.5-5.1)
[2024-08-01 08:08] VITALS: BP 119/68; TEMP 98.2; O2SAT 96
[2024-08-01] MEDS: FLUBLOK(EGGFREE) TRIVAL(24-25) VACCINE PF 0.5ML SYRINGE 18YRS & OLDER IM.IMMUN ONE (09:20)
[2024-08-01 12:44] VITALS: BP 124/65; TEMP 97.6; O2SAT 99
[2024-08-01 16:22] VITALS: BP 105/56; TEMP 97.9; O2SAT 94
[2024-08-01 20:43] VITALS: BP 121/75; TEMP 98.1; O2SAT 97
[2024-08-02] VITALS (7 sets, daily range): BP systolic 105–139; BP diastolic 65–74; TEMP 96.8–98; O2SAT 96–99
[2024-08-02 06:17] LABS: MEAN CORPUSCULAR HEMOGLOBIN 32.6 pg (27.0-33.0); MEAN CORPUSCULAR HGB CONC 33.3 g/dl (32.0-36.5); MEAN CORPUSCULAR VOLUME 97.7 fl (80.0-96.0); PLATELET COUNT, AUTOMATED 213 10^3/uL (150-450); RED BLOOD COUNT 3.07 10^6/uL (4.00-5.40); WHITE BLOOD COUNT 3.8 10^3/uL (4.0-10.0)
[2024-08-02 06:38] LABS: CALCIUM LEVEL 9.3 MG/DL (8.3-10.6); CREATININE FOR GFR 2.13 MG/DL (0.55-1.30); GLOMERULAR FILTRATION RATE 24.6 (>45); POTASSIUM SERUM 4.3 MMOL/L (3.5-5.1)
[2024-08-03 04:20] VITALS: BP 145/68; TEMP 97.6; O2SAT 97
[2024-08-03 05:48] LABS: HEMATOCRIT 29.7 % (36.0-47.0); HEMOGLOBIN 9.8 g/dl (12.0-15.5); MEAN CORPUSCULAR HEMOGLOBIN 32.3 pg (27.0-33.0); PLATELET COUNT, AUTOMATED 212 10^3/uL (150-450); RED BLOOD COUNT 3.03 10^6/uL (4.00-5.40); WHITE BLOOD COUNT 3.7 10^3/uL (4.0-10.0)
[2024-08-03 06:17] LABS: CALCIUM LEVEL 9.3 MG/DL (8.3-10.6); CREATININE FOR GFR 1.93 MG/DL (0.55-1.30); GLOMERULAR FILTRATION RATE 27.6 (>45); MAGNESIUM LEVEL 1.9 MG/DL (1.8-2.4); POTASSIUM SERUM 4.5 MMOL/L (3.5-5.1)
[2024-08-03 08:11] VITALS: BP 128/70; TEMP 97.2; O2SAT 96
[2024-08-03 12:18] VITALS: BP 132/66; TEMP 97.4; O2SAT 97
[2024-08-03 16:30] VITALS: BP 121/73; TEMP 97; O2SAT 97
[2024-08-03 19:34] VITALS: BP 140/65; TEMP 97.9; O2SAT 99
[2024-08-04 04:19] VITALS: BP 124/82; TEMP 98.8; O2SAT 98
[2024-08-04 07:17] LABS: HEMOGLOBIN 9.7 g/dl (12.0-15.5); MEAN CORPUSCULAR HEMOGLOBIN 32.6 pg (27.0-33.0); MEAN CORPUSCULAR HGB CONC 33.4 g/dl (32.0-36.5); MEAN CORPUSCULAR VOLUME 97.3 fl (80.0-96.0); PLATELET COUNT, AUTOMATED 208 10^3/uL (150-450); RED BLOOD COUNT 2.98 10^6/uL (4.00-5.40); WHITE BLOOD COUNT 4.4 10^3/uL (4.0-10.0)
[2024-08-04 07:59] LABS: CALCIUM LEVEL 8.9 MG/DL (8.3-10.6); CREATININE FOR GFR 1.78 MG/DL (0.55-1.30); GLOMERULAR FILTRATION RATE 30.3 (>45)
[2024-08-04 08:04] VITALS: BP 134/65; TEMP 98.6; O2SAT 97
[2024-08-04 16:23] VITALS: BP 131/72; TEMP 98.6; O2SAT 95
[2024-08-04 19:35] VITALS: BP 151/82; TEMP 98; O2SAT 99
[2024-08-05 03:32] VITALS: BP 144/68; TEMP 97.3; O2SAT 95
[2024-08-05 05:45] LABS: HEMATOCRIT 28.6 % (36.0-47.0); HEMOGLOBIN 9.6 g/dl (12.0-15.5); MEAN CORPUSCULAR HEMOGLOBIN 32.7 pg (27.0-33.0); MEAN CORPUSCULAR HGB CONC 33.6 g/dl (32.0-36.5); MEAN CORPUSCULAR VOLUME 97.3 fl (80.0-96.0); PLATELET COUNT, AUTOMATED 198 10^3/uL (150-450); RED BLOOD COUNT 2.94 10^6/uL (4.00-5.40); WHITE BLOOD COUNT 3.6 10^3/uL (4.0-10.0)
[2024-08-05 06:09] LABS: CALCIUM LEVEL 8.8 MG/DL (8.3-10.6); CREATININE FOR GFR 1.68 MG/DL (0.55-1.30); GLOMERULAR FILTRATION RATE 32.4 (>45); POTASSIUM SERUM 4.3 MMOL/L (3.5-5.1)
[2024-08-05 07:39] VITALS: BP 144/69; TEMP 98; O2SAT 95
[2024-08-05] MEDS: BACTRIM 160MG/800MG DS TAB PO SCH (08:35)
[2024-08-05] MEDS: TORSEMIDE 20 MG TAB PO SCH (13:03)
[2024-08-05 16:20] VITALS: BP 142/63; TEMP 97.2; O2SAT 97
[2024-08-05 17:35] VITALS: BP 128/62; TEMP 98.1; O2SAT 97
[2024-08-05 20:00] VITALS: BP 104/56; TEMP 98.1; O2SAT 97
[2024-08-05 21:30] VITALS: BP_SYST 104; BP_SYST 116; BP_SYST 118; BP_DIAS 56; BP_DIAS 64; BP_DIAS 66
[2024-08-06 00:57] VITALS: O2SAT 94
[2024-08-06 03:51] VITALS: BP 122/68; TEMP 98.1; O2SAT 93
[2024-08-06 06:05] LABS: HEMATOCRIT 28.2 % (36.0-47.0); HEMOGLOBIN 9.6 g/dl (12.0-15.5); MEAN CORPUSCULAR HEMOGLOBIN 33.1 pg (27.0-33.0); MEAN CORPUSCULAR VOLUME 97.2 fl (80.0-96.0); PLATELET COUNT, AUTOMATED 185 10^3/uL (150-450); WHITE BLOOD COUNT 4.1 10^3/uL (4.0-10.0)
[2024-08-06 06:34] LABS: CALCIUM LEVEL 8.7 MG/DL (8.3-10.6); CREATININE FOR GFR 1.79 MG/DL (0.55-1.30); GLOMERULAR FILTRATION RATE 30.1 (>45); MAGNESIUM LEVEL 1.9 MG/DL (1.8-2.4); POTASSIUM SERUM 3.8 MMOL/L (3.5-5.1)
[2024-08-06 08:23] VITALS: BP 129/69
[2024-08-06] MEDS ORDERED: TORS20TA2 PO (10:13)
[2024-08-06] MEDS ORDERED: AMLO1TAB24 PO (10:29)
[2024-08-07] MEDS ORDERED: amLODIPine 5 MG TAB PO SCH (09:00)
== END 2024-08-06 13:56 | disposition home health service (06) ==
LOC: M ED 08:50 → EDBD 08:50 → M ED INP 08:51 → M PCU 20:52 → M MSPAV 08-05 17:32
PROVIDERS: ADMIT Family Medicine; ATTEND Internal Medicine
DX: R55 Syncope and collapse (principal); E86.9 Volume depletion, unspecified; R53.1 Weakness; N17.9 Acute kidney failure, unspecified; N18.30 Chronic kidney disease, stage 3 unspecified; D46.9 Myelodysplastic syndrome, unspecified; Z94.81 Bone marrow transplant status; D64.9 Anemia, unspecified; Z87.440 Personal history of urinary (tract) infections; I48.19 Other persistent atrial fibrillation; R07.9 Chest pain, unspecified; I13.0 Hypertensive heart and chronic kidney disease with heart failure and stage 1 through stage 4 chronic kidney disease, or unspecified chronic kidney disease; G47.33 Obstructive sleep apnea (adult) (pediatric); E78.5 Hyperlipidemia, unspecified; M10.9 Gout, unspecified; M79.7 Fibromyalgia; F32.A Depression, unspecified; G25.81 Restless legs syndrome; M32.9 Systemic lupus erythematosus, unspecified; M54.16 Radiculopathy, lumbar region; M84.48XS Pathological fracture, other site, sequela; M48.061 Spinal stenosis, lumbar region without neurogenic claudication; K86.89 Other specified diseases of pancreas; I50.22 Chronic systolic (congestive) heart failure; N32.81 Overactive bladder; R29.6 Repeated falls; Z90.89 Acquired absence of other organs; Z90.711 Acquired absence of uterus with remaining cervical stump; Z98.890 Other specified postprocedural states; Z88.8 Allergy status to other drugs, medicaments and biological substances; Z88.1 Allergy status to other antibiotic agents; Z91.041 Radiographic dye allergy status; Z91.048 Other nonmedicinal substance allergy status; Z91.018 Allergy to other foods; Z79.899 Other long term (current) drug therapy; Z79.01 Long term (current) use of anticoagulants; Z79.2 Long term (current) use of antibiotics; Z23 Encounter for immunization
CPT/HCPCS: 36415; 70450; 71045; 72125; 73060; 73090; 80047; 80048; 80076; 82150; 82550; 82553; 83605; 83690; 83735; 84484; 85025; 85027; 85610; 85730; 86850; 86900; 86901; 87486; 87581; 87633; 87635; 87798; 90673; 93005; 93041; 94760; 95819; 97116; 97161; 97530; 99285; G0008; G0378

== ENCOUNTER → 2024-08-19 | Outpatient (REF) | payer MEDICARE, OTHER ==
[~2024-08-19] MED LIST changes: +AMLO1TAB24 PO; +SLOWTAB2 PO
[2024-08-19 12:08] LABS: BASO % 0.2 % (0.0-1.0); EOS # 0.1 10^3/uL (0.0-0.5); EOS % 1.5 % (0.0-3.0); HEMATOCRIT 28.1 % (36.0-47.0); HEMOGLOBIN 9.7 g/dl (12.0-15.5); LYMPH # 1.2 10^3/uL (1.5-5.0); LYMPH % 25.3 % (24.0-44.0); MEAN CORPUSCULAR HEMOGLOBIN 33.7 pg (27.0-33.0); MEAN CORPUSCULAR HGB CONC 34.5 g/dl (32.0-36.5); MEAN CORPUSCULAR VOLUME 97.6 fl (80.0-96.0); MONO # 0.6 10^3/uL (0.0-0.8); MONO % 12.2 % (2.0-8.0); NEUTROPHILS # 2.8 10^3/uL (1.5-8.5); NEUTROPHILS % 60.6 % (36.0-66.0); PLATELET COUNT, AUTOMATED 209 10^3/uL (150-450); RED BLOOD COUNT 2.88 10^6/uL (4.00-5.40); WHITE BLOOD COUNT 4.6 10^3/uL (4.0-10.0)
[2024-08-19 12:41] LABS: ALBUMIN 3.5 G/DL (3.2-5.2); BILIRUBIN,TOTAL 0.3 MG/DL (0.3-1.2); CALCIUM LEVEL 9.7 MG/DL (8.3-10.6); CREATININE FOR GFR 1.55 MG/DL (0.55-1.30); GLOMERULAR FILTRATION RATE 35.5 (>45); POTASSIUM SERUM 3.2 MMOL/L (3.5-5.1); TOTAL PROTEIN 5.7 G/DL (5.7-8.2)
[2024-08-19 12:43] LABS: FERRITIN 273.1 NG/ML (7.3-270.7)
== END ==
LOC: M LAB REF 11:30
PROVIDERS: ATTEND Internal Medicine Hematology & Oncology
DX: D64.9 Anemia, unspecified (principal)

== ENCOUNTER → 2024-08-26 | Outpatient (REF) | payer MEDICARE, OTHER | LOC: M SHH 14:38 | PROVIDERS: ATTEND Internal Medicine | DX: I50.9 Heart failure, unspecified (principal) ==

== ENCOUNTER → 2024-08-26 | Outpatient (REF) | payer MEDICARE, OTHER ==
[2024-08-26 15:04] LABS: BASO % 0.2 % (0.0-1.0); EOS # 0.1 10^3/uL (0.0-0.5); EOS % 2.1 % (0.0-3.0); HEMATOCRIT 27.6 % (36.0-47.0); HEMOGLOBIN 9.3 g/dl (12.0-15.5); LYMPH # 1.4 10^3/uL (1.5-5.0); LYMPH % 31.9 % (24.0-44.0); MEAN CORPUSCULAR HEMOGLOBIN 33.3 pg (27.0-33.0); MEAN CORPUSCULAR HGB CONC 33.7 g/dl (32.0-36.5); MEAN CORPUSCULAR VOLUME 98.9 fl (80.0-96.0); MONO # 0.6 10^3/uL (0.0-0.8); NEUTROPHILS # 2.3 10^3/uL (1.5-8.5); NEUTROPHILS % 52.3 % (36.0-66.0); PLATELET COUNT, AUTOMATED 189 10^3/uL (150-450); RED BLOOD COUNT 2.79 10^6/uL (4.00-5.40); WHITE BLOOD COUNT 4.4 10^3/uL (4.0-10.0)
[2024-08-26 15:30] LABS: ALBUMIN 3.5 G/DL (3.2-5.2); BILIRUBIN,TOTAL 0.3 MG/DL (0.3-1.2); CALCIUM LEVEL 9.4 MG/DL (8.3-10.6); CREATININE FOR GFR 1.53 MG/DL (0.55-1.30); POTASSIUM SERUM 3.8 MMOL/L (3.5-5.1)
[2024-08-26 15:33] LABS: FERRITIN 259.9 NG/ML (7.3-270.7)
== END ==
LOC: M SHH 14:35
PROVIDERS: ATTEND Internal Medicine Hematology & Oncology
DX: D64.9 Anemia, unspecified (principal); I50.9 Heart failure, unspecified

== ENCOUNTER 2024-09-05 16:57 | Inpatient (IN) | payer MEDICARE, OTHER ==
[~2024-09-05] VITALS: Ht 165.1 cm; Wt 64.2 kg
[2024-09-05 17:56] LABS: BASO % 0.2 % (0.0-1.0); HEMOGLOBIN 9.9 g/dl (12.0-15.5); LYMPH # 0.9 10^3/uL (1.5-5.0); MEAN CORPUSCULAR HEMOGLOBIN 33.6 pg (27.0-33.0); MEAN CORPUSCULAR VOLUME 101.7 fl (80.0-96.0); MONO # 0.5 10^3/uL (0.0-0.8); MONO % 11.5 % (2.0-8.0); NEUTROPHILS # 2.7 10^3/uL (1.5-8.5); NEUTROPHILS % 65.1 % (36.0-66.0); PLATELET COUNT, AUTOMATED 193 10^3/uL (150-450); RED BLOOD COUNT 2.95 10^6/uL (4.00-5.40); WHITE BLOOD COUNT 4.2 10^3/uL (4.0-10.0)
[2024-09-05] MEDS: ONDANSETRON 4MG 2ML VIAL IV ONE (18:15)
[2024-09-05 18:27] LABS: CALCIUM LEVEL 9.5 MG/DL (8.3-10.6); CREATININE FOR GFR 1.62 MG/DL (0.55-1.30); GLOMERULAR FILTRATION RATE 33.7 (>45); POTASSIUM SERUM 3.9 MMOL/L (3.5-5.1)
[2024-09-05] MEDS: MORPHINE 2 MG/ML 1ML VIAL IV PRN (18:35)
[2024-09-05] MEDS: CEFEPIME HCL 2 GM in DEXTROSE 5% (D5W) ADV/MINI-BAG 50 ML IV ONE (18:36)
[2024-09-05 18:39] LABS: INR 1.67; PROTHROMBIN TIME 19.9 SECONDS (12.5-14.5)
[2024-09-05] MEDS: PROMETHAZINE 25MG/ML 1ML VIAL IV ONE (18:45)
[2024-09-05 18:47] LABS: PROCALCITONIN 0.13 ng/ml
[2024-09-05] MEDS ORDERED: THERTAB52 PO (19:11)
[2024-09-05] MEDS ORDERED: TORS20TA2 PO (19:14)
[2024-09-05] MEDS ORDERED: HYDR-161 PO (19:15)
[2024-09-05] MEDS ORDERED: HOME MED LIST COMPLETE! XX SCH (19:20)
[2024-09-05] MEDS ORDERED: LACTULOSE 20GM/30ML SYRUP UDC PO PRN (20:15)
[2024-09-05] MEDS ORDERED: ENTER DRUG NAME HERE (PATIENT'S OWN MED) PO SCH (21:20)
[2024-09-05] MEDS: PRAMIPEXOLE (MIRAPEX) 0.125 MG TAB PO SCH (21:42)
[2024-09-05] MEDS: SERTRALINE HCL 50 MG TAB PO SCH (21:42)
[2024-09-05] MEDS: DOCUSATE SODIUM 100MG CAPSULE PO SCH (21:42)
[2024-09-05] MEDS: APIXABAN 5 MG TAB (ELIQUIS) PO SCH (21:42)
[2024-09-05] MEDS: GABAPENTIN 300 MG CAP PO SCH (21:42)
[2024-09-05] MEDS: traZODone 50 MG TAB PO SCH (21:42)
[2024-09-05] MEDS: **hydrALAZINE** 10 MG TAB PO SCH (21:43)
[2024-09-05] MEDS: ACYCLOVIR 200 MG CAPSULE PO SCH (21:43)
[2024-09-05 23:19] VITALS: BP 161/79; TEMP 98.1; O2SAT 97
[2024-09-06] MEDS: ERTAPENEM SODIUM 1 GM in NS MINI-BAG PLUS 50 ML IV SCH (00:09)
[2024-09-06] MEDS: diphenhydrAMINE 25MG CAP PO PRN (00:09)
[2024-09-06 04:00] VITALS: BP 102/72; TEMP 98.6; O2SAT 99
[2024-09-06 06:29] LABS: ALBUMIN 3.1 G/DL (3.2-5.2); BILIRUBIN,TOTAL 0.3 MG/DL (0.3-1.2); CALCIUM LEVEL 9.4 MG/DL (8.3-10.6); CREATININE FOR GFR 1.49 MG/DL (0.55-1.30); GLOMERULAR FILTRATION RATE 37.2 (>45); POTASSIUM SERUM 3.4 MMOL/L (3.5-5.1); TOTAL PROTEIN 5.2 G/DL (5.7-8.2)
[2024-09-06] MEDS ORDERED: UNRESOLVED PATIENT OWN MED ORDER XX SCH (09:00)
[2024-09-06] MEDS: EZETIMIBE 10MG TABLET (ZETIA) PO SCH (09:25)
[2024-09-06] MEDS: METOPROLOL SUCC (TopROL XL) 100MG *XL* TAB PO SCH (09:26)
[2024-09-06] MEDS: CREON-12 CAPSULE (PANCRELIPASE) PO SCH (09:27)
[2024-09-06] MEDS: DIGOXIN 0.125 MG TAB PO SCH (09:27)
[2024-09-06] MEDS: CYCLOBENZAPRINE 10MG TABLET PO PRN (09:28)
[2024-09-06 09:30] VITALS: BP 160/91; TEMP 98.4; O2SAT 100
[2024-09-06] MEDS: oxyBUTYnin *DITROPAN XL* 5 MG TABCR PO SCH (09:30)
[2024-09-06] MEDS: LACTOBACILLUS ACIDOPHILUS CAP (BACID) PO SCH (09:30)
[2024-09-06] MEDS: ACETAMINOPHEN 325 MG TAB PO PRN (09:30)
[2024-09-06] MEDS: TORSEMIDE 20 MG TAB PO SCH (09:31)
[2024-09-06] MEDS: BACTRIM 160MG/800MG DS TAB PO SCH (09:31)
[2024-09-06] MEDS: VITAMIN D 1,000 INTERNATIONAL UNITS TABLET PO SCH (09:32)
[2024-09-06] MEDS: allopurinoL 100 MG TAB PO SCH (09:32)
[2024-09-06] MEDS: FOLIC ACID 1MG TAB PO SCH (09:33)
[2024-09-06] MEDS: HYDROXYCHLOROQUINE 200 MG TAB PO SCH (09:33)
[2024-09-06 12:07] VITALS: BP 142/83; TEMP 99.3; O2SAT 98
[2024-09-06 15:36] LABS: APPEARANCE, URINE CLEAR (CLEAR); BACTERIA, URINE AUTO NEGATIVE (NEGATIVE); BILIRUBIN, URINE AUTO NEGATIVE (NEGATIVE); BLOOD, URINE BLOOD 2+ (NEGATIVE); COLOR, URINE STRAW (YELLOW); GLUCOSE, URINE (UA) AUTO NEGATIVE (NEGATIVE); KETONE, URINE AUTO NEGATIVE (NEGATIVE); LEUKOCYTE ESTERASE, URINE AUTO NEGATIVE (NEGATIVE); NITRITE, URINE AUTO NEGATIVE (NEGATIVE); PROTEIN, URINE AUTO 2+ mg/dL (NEGATIVE); RBC, URINE AUTO 28 /HPF (0-3); SPECIFIC GRAVITY URINE AUTO 1.008 (1.002-1.035); SQUAMOUS EPITHELIAL CELL UR AU 0 /HPF (0-6); UROBILINOGEN, URINE AUTO 0.2 mg/dL (0.0-2.0); WBC, URINE AUTO 6 /HPF (0-3)
[2024-09-06] MEDS: POTASSIUM CHLORIDE 10MEQ SR TABLET PO SCH (16:53)
[2024-09-06] MEDS: LIDOCAINE 5% (LIDODERM) PATCH TD SCH (19:55)
[2024-09-06 20:00] VITALS: BP 128/74; TEMP 98.8; O2SAT 96
[2024-09-06] MEDS: MEROPENEM INJ 1 GM in IV 1 EA IV SCH (20:20)
[2024-09-06] MEDS: ULTRACET TAB PO PRN (20:23)
[2024-09-06] MEDS: JAKAFI 5 MG PO SCH (20:24)
[2024-09-06] MEDS ORDERED: PIPERACILLIN/TAZOBACTAM SOD 2.25 GM in DEXTROSE 5% (D5W) ADV/MINI-BAG 50 ML IV SCH (22:00)
[2024-09-06] MEDS ORDERED: ERTAPENEM SODIUM 1 GM in NS MINI-BAG PLUS 50 ML IV SCH (23:00)
[2024-09-07 04:00] VITALS: BP 129/74; TEMP 98.2; O2SAT 94
[2024-09-07 12:00] VITALS: BP 124/74; TEMP 98.6; O2SAT 99
[2024-09-07 16:12] LABS: HEMATOCRIT 26.6 % (36.0-47.0); MEAN CORPUSCULAR HEMOGLOBIN 34.5 pg (27.0-33.0); MEAN CORPUSCULAR HGB CONC 33.8 g/dl (32.0-36.5); MEAN CORPUSCULAR VOLUME 101.9 fl (80.0-96.0); PLATELET COUNT, AUTOMATED 166 10^3/uL (150-450); RED BLOOD COUNT 2.61 10^6/uL (4.00-5.40); WHITE BLOOD COUNT 3.7 10^3/uL (4.0-10.0)
[2024-09-07 16:38] LABS: ALBUMIN 2.8 G/DL (3.2-5.2); BILIRUBIN,TOTAL 0.3 MG/DL (0.3-1.2); CREATININE FOR GFR 1.78 MG/DL (0.55-1.30); GLOMERULAR FILTRATION RATE 30.3 (>45); TOTAL PROTEIN 5.1 G/DL (5.7-8.2)
[2024-09-07 20:00] VITALS: BP 138/76; TEMP 99.6; O2SAT 97
[2024-09-07] MEDS ORDERED: POTASSIUM CHLORIDE 10MEQ SR TABLET PO SCH (21:00)
[2024-09-08] VITALS (10 sets, daily range): BP systolic 116–169; BP diastolic 68–103; TEMP 97.5–98.8; O2SAT 93–98
[2024-09-08] MEDS ORDERED: ONDANSETRON 4MG 2ML VIAL As Ordered ONE (07:20)
[2024-09-08] MEDS ORDERED: fentaNYL 100 MCG/2 ML INJECTION As Ordered ONE (07:20)
[2024-09-08] MEDS ORDERED: MIDAZOLAM INJ 2MG/2ML VIAL As Ordered ONE (07:20)
[2024-09-08] MEDS ORDERED: LIDOCAINE 2% 100MG/5ML SDV (FOR ANES.) As Ordered ONE (07:21)
[2024-09-08] MEDS ORDERED: propofoL 200 MG/20 ML VIAL As Ordered ONE (07:21)
[2024-09-08] MEDS: LIDOCAINE 1% SDV 30ML VIAL As Ordered ONE (09:44)
[2024-09-08] MEDS: NS 1,000 ML IV SCH (10:39)
[2024-09-09] VITALS: BP 139/79; TEMP 98.1; O2SAT 95
[2024-09-09 04:00] VITALS: BP 142/82; TEMP 97.4; O2SAT 95
[2024-09-09 08:00] VITALS: BP 147/86; TEMP 99; O2SAT 94
[2024-09-09 12:00] VITALS: BP 139/77; TEMP 98.8; O2SAT 93
[2024-09-09] MEDS ORDERED: SODIUM CHLORIDE 0.9% INJ 10 ML SYR IV PRN (14:15)
[2024-09-09] MEDS: SODIUM CHLORIDE 0.9% INJ 10 ML SYR IV SCH (14:15)
[2024-09-09 14:36] LABS: HEMATOCRIT 28.5 % (36.0-47.0); HEMOGLOBIN 9.6 g/dl (12.0-15.5); MEAN CORPUSCULAR HEMOGLOBIN 34.3 pg (27.0-33.0); MEAN CORPUSCULAR HGB CONC 33.7 g/dl (32.0-36.5); MEAN CORPUSCULAR VOLUME 101.8 fl (80.0-96.0); PLATELET COUNT, AUTOMATED 178 10^3/uL (150-450); WHITE BLOOD COUNT 4.2 10^3/uL (4.0-10.0)
[2024-09-09 15:13] LABS: BILIRUBIN,TOTAL 0.3 MG/DL (0.3-1.2); CALCIUM LEVEL 9.4 MG/DL (8.3-10.6); CREATININE FOR GFR 1.76 MG/DL (0.55-1.30); GLOMERULAR FILTRATION RATE 30.7 (>45); POTASSIUM SERUM 3.8 MMOL/L (3.5-5.1); TOTAL PROTEIN 5.5 G/DL (5.7-8.2)
[2024-09-09 16:44] VITALS: BP 148/84
[2024-09-09 20:00] VITALS: BP 134/71; TEMP 97.1; O2SAT 95
[2024-09-10 04:15] VITALS: BP 171/90; TEMP 98.6; O2SAT 97
[2024-09-10 05:00] VITALS: BP 145/89
[2024-09-10 08:04] LABS: BASO % 0.3 % (0.0-1.0); EOS # 0.1 10^3/uL (0.0-0.5); EOS % 1.9 % (0.0-3.0); HEMATOCRIT 27.2 % (36.0-47.0); HEMOGLOBIN 9.1 g/dl (12.0-15.5); LYMPH # 1.1 10^3/uL (1.5-5.0); LYMPH % 30.7 % (24.0-44.0); MEAN CORPUSCULAR HEMOGLOBIN 33.7 pg (27.0-33.0); MEAN CORPUSCULAR HGB CONC 33.5 g/dl (32.0-36.5); MEAN CORPUSCULAR VOLUME 100.7 fl (80.0-96.0); MONO # 0.6 10^3/uL (0.0-0.8); MONO % 16.3 % (2.0-8.0); NEUTROPHILS # 1.9 10^3/uL (1.5-8.5); NEUTROPHILS % 50.5 % (36.0-66.0); PLATELET COUNT, AUTOMATED 156 10^3/uL (150-450); WHITE BLOOD COUNT 3.7 10^3/uL (4.0-10.0)
[2024-09-10 08:24] LABS: CALCIUM LEVEL 9.1 MG/DL (8.3-10.6); CREATININE FOR GFR 1.66 MG/DL (0.55-1.30); GLOMERULAR FILTRATION RATE 32.8 (>45); POTASSIUM SERUM 3.4 MMOL/L (3.5-5.1)
[2024-09-10 08:55] VITALS: BP 143/80
[2024-09-10] MEDS: POTASSIUM CHLORIDE 10MEQ SR TABLET PO ONE (10:41)
[2024-09-10 12:00] VITALS: BP 150/97; TEMP 98.8; O2SAT 95
[2024-09-10] MEDS: MORPHINE 2 MG/ML 1ML VIAL IV ONE (12:37)
== END 2024-09-10 14:34 | disposition home health service (06) | DRG 253 ==
LOC: M ED 16:57 → M ED INP 20:13 → M MSPAV 23:19
PROVIDERS: ADMIT Student in an Organized Health Care Education/Training Program; ATTEND Internal Medicine
PROC: 05PY03Z Removal of Infusion Device from Upper Vein, Open Approach (ICD-10-PCS; principal; 2024-09-08 08:00)
DX: T82.7XXA Infection and inflammatory reaction due to other cardiac and vascular devices, implants and grafts, initial encounter (principal); N39.0 Urinary tract infection, site not specified; I48.19 Other persistent atrial fibrillation; I50.22 Chronic systolic (congestive) heart failure; I13.0 Hypertensive heart and chronic kidney disease with heart failure and stage 1 through stage 4 chronic kidney disease, or unspecified chronic kidney disease; Z94.84 Stem cells transplant status; D89.811 Chronic graft-versus-host disease; N17.9 Acute kidney failure, unspecified; G47.33 Obstructive sleep apnea (adult) (pediatric); E89.5 Postprocedural testicular hypofunction; N18.32 Chronic kidney disease, stage 3b; M10.9 Gout, unspecified; M79.7 Fibromyalgia; F32.A Depression, unspecified; G25.81 Restless legs syndrome; M32.9 Systemic lupus erythematosus, unspecified; M48.00 Spinal stenosis, site unspecified; M54.16 Radiculopathy, lumbar region; K86.89 Other specified diseases of pancreas; N32.81 Overactive bladder; D63.0 Anemia in neoplastic disease; Z90.49 Acquired absence of other specified parts of digestive tract; Z90.79 Acquired absence of other genital organ(s); D46.9 Myelodysplastic syndrome, unspecified; E78.5 Hyperlipidemia, unspecified; Z79.01 Long term (current) use of anticoagulants; Z79.899 Other long term (current) drug therapy; Z91.041 Radiographic dye allergy status; Z91.048 Other nonmedicinal substance allergy status; Z91.018 Allergy to other foods; Z88.8 Allergy status to other drugs, medicaments and biological substances; E11.22 Type 2 diabetes mellitus with diabetic chronic kidney disease

== ENCOUNTER → 2024-09-16 | Outpatient (REF) | payer MEDICARE, OTHER ==
[~2024-09-16] MED LIST changes: +THERTAB52 PO
== END ==
LOC: M SHH 10:41
PROVIDERS: ATTEND Internal Medicine Infectious Disease
DX: Z53.9 Procedure and treatment not carried out, unspecified reason (principal)

== ENCOUNTER → 2024-09-16 | Outpatient (REF) | payer MEDICARE, OTHER ==
[2024-09-16 11:09] LABS: BASO % 0.3 % (0.0-1.0); EOS # 0.1 10^3/uL (0.0-0.5); EOS % 1.7 % (0.0-3.0); HEMATOCRIT 28.1 % (36.0-47.0); HEMOGLOBIN 9.3 g/dl (12.0-15.5); LYMPH # 0.8 10^3/uL (1.5-5.0); LYMPH % 21.1 % (24.0-44.0); MEAN CORPUSCULAR HEMOGLOBIN 34.1 pg (27.0-33.0); MEAN CORPUSCULAR HGB CONC 33.1 g/dl (32.0-36.5); MEAN CORPUSCULAR VOLUME 102.9 fl (80.0-96.0); MONO # 0.4 10^3/uL (0.0-0.8); MONO % 10.4 % (2.0-8.0); NEUTROPHILS # 2.4 10^3/uL (1.5-8.5); NEUTROPHILS % 66.2 % (36.0-66.0); PLATELET COUNT, AUTOMATED 139 10^3/uL (150-450); RED BLOOD COUNT 2.73 10^6/uL (4.00-5.40); WHITE BLOOD COUNT 3.6 10^3/uL (4.0-10.0)
[2024-09-16 11:44] LABS: ALBUMIN 3.1 G/DL (3.2-5.2); BILIRUBIN,TOTAL 0.4 MG/DL (0.3-1.2); CREATININE FOR GFR 1.49 MG/DL (0.55-1.30); GLOMERULAR FILTRATION RATE 37.2 (>45); POTASSIUM SERUM 3.6 MMOL/L (3.5-5.1); TOTAL PROTEIN 5.7 G/DL (5.7-8.2)
[2024-09-16 11:46] LABS: FERRITIN 246.8 NG/ML (7.3-270.7)
== END ==
LOC: M SHH 10:39
PROVIDERS: ATTEND Internal Medicine Hematology & Oncology
DX: D75.89 Other specified diseases of blood and blood-forming organs (principal); D75.81 Myelofibrosis; D63.1 Anemia in chronic kidney disease

== ENCOUNTER → 2024-09-23 | Outpatient (REF) | payer MEDICARE, OTHER | LOC: M SHH 11:47 | PROVIDERS: ATTEND Nurse Practitioner Family | DX: Z94.81 Bone marrow transplant status (principal) ==

== ENCOUNTER → 2024-09-23 | Outpatient (REF) | payer MEDICARE, OTHER ==
[2024-09-23 12:14] LABS: BASO % 0.6 % (0.0-1.0); EOS # 0.1 10^3/uL (0.0-0.5); EOS % 2.9 % (0.0-3.0); HEMATOCRIT 30.1 % (36.0-47.0); HEMOGLOBIN 10.1 g/dl (12.0-15.5); LYMPH # 1.1 10^3/uL (1.5-5.0); LYMPH % 32.5 % (24.0-44.0); MEAN CORPUSCULAR HEMOGLOBIN 35.2 pg (27.0-33.0); MEAN CORPUSCULAR HGB CONC 33.6 g/dl (32.0-36.5); MEAN CORPUSCULAR VOLUME 104.9 fl (80.0-96.0); MONO # 0.5 10^3/uL (0.0-0.8); MONO % 15.7 % (2.0-8.0); NEUTROPHILS # 1.7 10^3/uL (1.5-8.5); PLATELET COUNT, AUTOMATED 163 10^3/uL (150-450); RED BLOOD COUNT 2.87 10^6/uL (4.00-5.40); WHITE BLOOD COUNT 3.5 10^3/uL (4.0-10.0)
[2024-09-23 12:42] LABS: ALBUMIN 3.5 G/DL (3.2-5.2); BILIRUBIN,TOTAL 0.5 MG/DL (0.3-1.2); CALCIUM LEVEL 9.5 MG/DL (8.3-10.6); CREATININE FOR GFR 2.01 MG/DL (0.55-1.30); GLOMERULAR FILTRATION RATE 26.3 (>45); POTASSIUM SERUM 4.1 MMOL/L (3.5-5.1); TOTAL PROTEIN 5.9 G/DL (5.7-8.2)
[2024-09-23 12:44] LABS: FERRITIN 198.6 NG/ML (7.3-270.7)
== END ==
LOC: M SHH 11:23
PROVIDERS: ATTEND Internal Medicine Hematology & Oncology
DX: D64.9 Anemia, unspecified (principal)

== ENCOUNTER → 2024-09-30 | Outpatient (REF) | payer MEDICARE, OTHER ==
[2024-09-30 12:25] LABS: BASO % 0.5 % (0.0-1.0); EOS # 0.2 10^3/uL (0.0-0.5); EOS % 4.3 % (0.0-3.0); HEMOGLOBIN 9.5 g/dl (12.0-15.5); LYMPH # 1.1 10^3/uL (1.5-5.0); LYMPH % 29.7 % (24.0-44.0); MEAN CORPUSCULAR HEMOGLOBIN 35.4 pg (27.0-33.0); MEAN CORPUSCULAR HGB CONC 33.9 g/dl (32.0-36.5); MEAN CORPUSCULAR VOLUME 104.5 fl (80.0-96.0); MONO # 0.6 10^3/uL (0.0-0.8); MONO % 15.5 % (2.0-8.0); NEUTROPHILS # 1.9 10^3/uL (1.5-8.5); NEUTROPHILS % 49.7 % (36.0-66.0); PLATELET COUNT, AUTOMATED 158 10^3/uL (150-450); RED BLOOD COUNT 2.68 10^6/uL (4.00-5.40); WHITE BLOOD COUNT 3.7 10^3/uL (4.0-10.0)
[2024-09-30 12:51] LABS: ALBUMIN 3.5 G/DL (3.2-5.2); BILIRUBIN,TOTAL 0.4 MG/DL (0.3-1.2); CALCIUM LEVEL 9.1 MG/DL (8.3-10.6); CREATININE FOR GFR 1.55 MG/DL (0.55-1.30); GLOMERULAR FILTRATION RATE 35.5 (>45); POTASSIUM SERUM 3.4 MMOL/L (3.5-5.1); TOTAL PROTEIN 5.7 G/DL (5.7-8.2)
[2024-09-30 12:53] LABS: FERRITIN 136.2 NG/ML (7.3-270.7)
== END ==
LOC: M SHH 11:15
PROVIDERS: ATTEND Specialist
DX: D64.9 Anemia, unspecified (principal)

== ENCOUNTER → 2024-10-07 | Outpatient (REF) | payer MEDICARE, OTHER ==
[~2024-10-07] MED LIST changes: +SULF400T14 PO
[2024-10-07 19:49] LABS: APPEARANCE, URINE CLOUDY (CLEAR); BACTERIA, URINE AUTO 2+ (NEGATIVE); BILIRUBIN, URINE AUTO NEGATIVE (NEGATIVE); BLOOD, URINE BLOOD 2+ (NEGATIVE); COLOR, URINE AMBER (YELLOW); GLUCOSE, URINE (UA) AUTO NEGATIVE (NEGATIVE); KETONE, URINE AUTO NEGATIVE (NEGATIVE); LEUKOCYTE ESTERASE, URINE AUTO 3+ (NEGATIVE); MUCUS, URINE SMALL (NEGATIVE); NITRITE, URINE AUTO NEGATIVE (NEGATIVE); PROTEIN, URINE AUTO 3+ mg/dL (NEGATIVE); RBC, URINE AUTO 70 /HPF (0-3); SQUAMOUS EPITHELIAL CELL UR AU 1 /HPF (0-6); UROBILINOGEN, URINE AUTO 0.2 mg/dL (0.0-2.0); WBC, URINE AUTO TNTC /HPF (0-3)
== END ==
LOC: M SHH 17:14
PROVIDERS: ATTEND Internal Medicine Infectious Disease
DX: N39.0 Urinary tract infection, site not specified (principal); D64.9 Anemia, unspecified

== ENCOUNTER → 2024-10-07 | Outpatient (REF) | payer MEDICARE, OTHER ==
[2024-10-07 20:15] LABS: BASO % 0.4 % (0.0-1.0); EOS # 0.1 10^3/uL (0.0-0.5); EOS % 2.2 % (0.0-3.0); HEMATOCRIT 28.1 % (36.0-47.0); HEMOGLOBIN 9.5 g/dl (12.0-15.5); LYMPH # 1.1 10^3/uL (1.5-5.0); MEAN CORPUSCULAR HEMOGLOBIN 34.8 pg (27.0-33.0); MEAN CORPUSCULAR HGB CONC 33.8 g/dl (32.0-36.5); MEAN CORPUSCULAR VOLUME 102.9 fl (80.0-96.0); MONO # 0.6 10^3/uL (0.0-0.8); MONO % 10.9 % (2.0-8.0); NEUTROPHILS # 3.2 10^3/uL (1.5-8.5); NEUTROPHILS % 64.3 % (36.0-66.0); PLATELET COUNT, AUTOMATED 186 10^3/uL (150-450); RED BLOOD COUNT 2.73 10^6/uL (4.00-5.40)
[2024-10-07 20:50] LABS: FERRITIN 112.3 NG/ML (7.3-270.7)
[2024-10-07 20:51] LABS: ALBUMIN 3.6 G/DL (3.2-5.2); BILIRUBIN,TOTAL 0.3 MG/DL (0.3-1.2); CALCIUM LEVEL 9.4 MG/DL (8.3-10.6); CREATININE FOR GFR 1.8 MG/DL (0.55-1.30); GLOMERULAR FILTRATION RATE 29.9 (>45); TOTAL PROTEIN 5.8 G/DL (5.7-8.2)
== END ==
LOC: M SHH 17:12
PROVIDERS: ATTEND Specialist
DX: D64.9 Anemia, unspecified (principal); N39.0 Urinary tract infection, site not specified

== ENCOUNTER 2024-10-09 13:19 | Inpatient (IN) | payer MEDICARE, OTHER ==
[~2024-10-09] VITALS: Ht 165.1 cm; Wt 64.4 kg
[~2024-10-09 13:19] MED LIST changes: -SULF400T14 PO
[2024-10-09 14:35] LABS: BASO % 0.2 % (0.0-1.0); EOS # 0.1 10^3/uL (0.0-0.5); EOS % 1.7 % (0.0-3.0); HEMATOCRIT 29.9 % (36.0-47.0); LYMPH # 1.1 10^3/uL (1.5-5.0); LYMPH % 23.5 % (24.0-44.0); MEAN CORPUSCULAR HEMOGLOBIN 35.3 pg (27.0-33.0); MEAN CORPUSCULAR HGB CONC 33.4 g/dl (32.0-36.5); MEAN CORPUSCULAR VOLUME 105.7 fl (80.0-96.0); MONO # 0.4 10^3/uL (0.0-0.8); MONO % 7.8 % (2.0-8.0); NEUTROPHILS # 3.1 10^3/uL (1.5-8.5); NEUTROPHILS % 66.4 % (36.0-66.0); PLATELET COUNT, AUTOMATED 170 10^3/uL (150-450); RED BLOOD COUNT 2.83 10^6/uL (4.00-5.40); WHITE BLOOD COUNT 4.6 10^3/uL (4.0-10.0)
[2024-10-09 14:47] LABS: INR 1.72; PARTIAL THROMBOPLASTIN TIME 34.6 SECONDS (24.8-34.2); PROTHROMBIN TIME 20.4 SECONDS (12.5-14.5)
[2024-10-09 15:23] LABS: ALBUMIN 3.4 G/DL (3.2-5.2); BILIRUBIN,DIRECT 0.1 MG/DL (<0.4); BILIRUBIN,TOTAL 0.3 MG/DL (0.3-1.2); CALCIUM LEVEL 9.7 MG/DL (8.3-10.6); CK-MB VALUE MASS 5.5 NG/ML (<3.6); CREATININE FOR GFR 1.69 MG/DL (0.55-1.30); GLOMERULAR FILTRATION RATE 32.1 (>45); MB/CK RELATIVE INDEX 2.22 (< OR =4); POTASSIUM SERUM 3.7 MMOL/L (3.5-5.1); TOTAL PROTEIN 5.9 G/DL (5.7-8.2)
[2024-10-09] MEDS: MEROPENEM INJ 1 GM in IV 1 EA IV ONE ×2 (15:32→23:13)
[2024-10-09 16:25] LABS: CK-MB VALUE MASS 3.7 NG/ML (<3.6)
[2024-10-09 16:29] LABS: MB/CK RELATIVE INDEX 1.62 (< OR =4)
[2024-10-09] MEDS ORDERED: POTA-136 PO (17:39)
[2024-10-09] MEDS ORDERED: SULF400T14 PO (17:39)
[2024-10-09] MEDS ORDERED: HYDR25TA87 PO (17:39)
[2024-10-09] MEDS ORDERED: ERYT200S17 PO (17:39)
[2024-10-09] MEDS ORDERED: HOME MED LIST COMPLETE! XX SCH (17:40)
[2024-10-09] MEDS ORDERED: diphenhydrAMINE 25MG CAP PO PRN (18:15)
[2024-10-09] MEDS ORDERED: LACTULOSE 20GM/30ML SYRUP UDC PO PRN (18:15)
[2024-10-09] MEDS: METOPROLOL TART 25 MG TABLET PO ONE (19:42)
[2024-10-09] MEDS: ACETAMINOPHEN 325 MG TAB PO PRN (20:04)
[2024-10-09 20:25] VITALS: BP 146/83; TEMP 99.9; O2SAT 97
[2024-10-09] MEDS ORDERED: DOCUSATE SODIUM 100MG CAPSULE PO SCH (21:00)
[2024-10-09] MEDS: ACYCLOVIR 200 MG CAPSULE PO SCH (22:59)
[2024-10-09] MEDS: traZODone 50 MG TAB PO SCH (22:59)
[2024-10-09] MEDS: DOCUSATE SODIUM 100MG CAPSULE PO SCH (23:00)
[2024-10-09] MEDS: DIGOXIN 0.125 MG TAB PO ONE (23:00)
[2024-10-09] MEDS: **hydrALAZINE HCL** 25 MG TAB PO SCH (23:01)
[2024-10-09] MEDS: POTASSIUM CHLORIDE 10MEQ SR TABLET PO SCH (23:01)
[2024-10-09] MEDS: GABAPENTIN 100 MG CAP PO SCH (23:01)
[2024-10-09] MEDS: APIXABAN 5 MG TAB (ELIQUIS) PO SCH (23:01)
[2024-10-09] MEDS: SERTRALINE HCL 50 MG TAB PO SCH (23:02)
[2024-10-09] MEDS: PRAMIPEXOLE (MIRAPEX) 0.125 MG TAB PO SCH (23:02)
[2024-10-10] VITALS (10 sets, daily range): BP systolic 132–160; BP diastolic 69–97; TEMP 97.9–98.8; O2SAT 85–98
[2024-10-10] MEDS: ACETAMINOPHEN 650MG ER TAB (TYLENOL ARTHRITIS) PO PRN (00:20)
[2024-10-10 06:06] LABS: HEMATOCRIT 28.8 % (36.0-47.0); HEMOGLOBIN 9.3 g/dl (12.0-15.5); MEAN CORPUSCULAR HEMOGLOBIN 34.2 pg (27.0-33.0); MEAN CORPUSCULAR HGB CONC 32.3 g/dl (32.0-36.5); MEAN CORPUSCULAR VOLUME 105.9 fl (80.0-96.0); PLATELET COUNT, AUTOMATED 156 10^3/uL (150-450); RED BLOOD COUNT 2.72 10^6/uL (4.00-5.40); WHITE BLOOD COUNT 5.1 10^3/uL (4.0-10.0)
[2024-10-10 06:38] LABS: ALKALINE PHOSPHATASE 110 U/L (35-104); ALT/SGPT 109 U/L (7.0-40); AST/SGOT 82 U/L (<34); BILIRUBIN,TOTAL 0.4 MG/DL (0.3-1.2); BLOOD UREA NITROGEN 51 MG/DL (9-23); CALCIUM LEVEL 9.3 MG/DL (8.3-10.6); CARBON DIOXIDE LEVEL 26 MMOL/L (20-31); CHLORIDE LEVEL 110 MMOL/L (98-107); CREATININE FOR GFR 1.76 MG/DL (0.55-1.30); GLOMERULAR FILTRATION RATE 30.7 (>45); GLUCOSE, FASTING 89 MG/DL (74-106); POTASSIUM SERUM 3.7 MMOL/L (3.5-5.1); SODIUM LEVEL 143 MMOL/L (136-145); TOTAL PROTEIN 5.1 G/DL (5.7-8.2)
[2024-10-10] MEDS ORDERED: ENOXAPARIN 30MG/0.3ML SYRINGE (J1650 PER 10MG) SC SCH (09:00)
[2024-10-10] MEDS ORDERED: LIDOCAINE 1% MDV 20ML VIAL As Ordered ONE (09:29)
[2024-10-10] MEDS: TORSEMIDE 20 MG TAB PO SCH ×2 (09:50→13:43)
[2024-10-10] MEDS: EZETIMIBE 10MG TABLET (ZETIA) PO SCH (09:50)
[2024-10-10] MEDS: LACTOBACILLUS ACIDOPHILUS CAP (BACID) PO SCH (09:50)
[2024-10-10] MEDS: oxyBUTYnin *DITROPAN XL* 5 MG TABCR PO SCH (09:51)
[2024-10-10] MEDS: FOLIC ACID 1MG TAB PO SCH (09:51)
[2024-10-10] MEDS: allopurinoL 100 MG TAB PO SCH (09:51)
[2024-10-10] MEDS: HYDROXYCHLOROQUINE 200 MG TAB PO SCH (09:51)
[2024-10-10] MEDS: METOPROLOL SUCC (TopROL XL) 100MG *XL* TAB PO SCH (09:52)
[2024-10-10] MEDS: ERTAPENEM SODIUM 500 MG in NS 50 ML IV SCH (09:52)
[2024-10-10] MEDS ORDERED: SODIUM CHLORIDE 0.9% INJ 10 ML SYR IV PRN (11:20)
[2024-10-10] MEDS: SODIUM CHLORIDE 0.9% INJ 10 ML SYR IV SCH (13:43)
[2024-10-10 15:09] LABS: IMMUNOGLOBULIN A 51.8 MG/DL (40-350); IMMUNOGLOBULIN G 299 MG/DL (650-1600)
[2024-10-10] MEDS: CREON-12 CAPSULE (PANCRELIPASE) PO SCH (17:55)
[2024-10-10] MEDS: JAKAFI 5 MG PO SCH (21:00)
[2024-10-11 00:06] VITALS: BP 156/84; TEMP 98.6; O2SAT 94
[2024-10-11 04:00] VITALS: BP 154/56; TEMP 97.5; O2SAT 96
[2024-10-11 08:30] VITALS: BP 147/94; TEMP 98.1; O2SAT 92
[2024-10-11] MEDS: BACTRIM 80MG/400MG TAB PO SCH (09:18)
[2024-10-11] MEDS: DIGOXIN 0.125 MG TAB PO SCH (09:22)
[2024-10-11] MEDS: ERTAPENEM SODIUM 500 MG in NS 50 ML IV SCH (10:10)
[2024-10-11 11:35] VITALS: BP 150/96; TEMP 98.1; O2SAT 95
[2024-10-11 20:07] VITALS: BP 147/78; TEMP 98.2; O2SAT 94
[2024-10-11] MEDS: CYCLOBENZAPRINE 10MG TABLET PO PRN (20:09)
[2024-10-11 23:18] VITALS: O2SAT 93
[2024-10-12 04:00] VITALS: BP 147/86; TEMP 97.7; O2SAT 93
[2024-10-12 06:04] LABS: HEMATOCRIT 28.7 % (36.0-47.0); HEMOGLOBIN 9.6 g/dl (12.0-15.5); MEAN CORPUSCULAR HEMOGLOBIN 35.3 pg (27.0-33.0); MEAN CORPUSCULAR HGB CONC 33.4 g/dl (32.0-36.5); MEAN CORPUSCULAR VOLUME 105.5 fl (80.0-96.0); PLATELET COUNT, AUTOMATED 146 10^3/uL (150-450); RED BLOOD COUNT 2.72 10^6/uL (4.00-5.40); WHITE BLOOD COUNT 4.2 10^3/uL (4.0-10.0)
[2024-10-12 06:34] LABS: DIGOXIN LEVEL 0.8 NG/ML (0.8-2.0)
[2024-10-12 12:00] VITALS: BP 146/95; TEMP 98.1; O2SAT 94
[2024-10-12 12:45] VITALS: BP 146/95; TEMP 98.1; O2SAT 94
[2024-10-12] MEDS: METOPROLOL TARTRATE 100MG TAB PO SCH (20:14)
[2024-10-12 20:15] VITALS: BP 162/93; TEMP 98.8; O2SAT 93
[2024-10-13 04:00] VITALS: BP 154/89; TEMP 98.1; O2SAT 93
[2024-10-13 12:00] VITALS: BP 152/90; TEMP 97.9; O2SAT 95
[2024-10-13 15:08] VITALS: BP 139/83
[2024-10-13 20:04] VITALS: BP 159/96; TEMP 98.1; O2SAT 95
[2024-10-13 21:00] VITALS: O2SAT 93
[2024-10-14 04:00] VITALS: BP 147/87; TEMP 98.2; O2SAT 96
[2024-10-14 05:51] VITALS: BP 166/98
[2024-10-14 06:59] VITALS: BP 138/78
[2024-10-14 12:00] VITALS: BP_SYST 117; BP_SYST 126; BP_DIAS 75; BP_DIAS 78; TEMP 97.3; O2SAT 100; O2SAT 95
[2024-10-14 20:00] VITALS: BP 154/84; TEMP 97.9; O2SAT 94
[2024-10-14 21:00] VITALS: O2SAT 93
[2024-10-15 04:00] VITALS: BP 145/89; TEMP 97.7; O2SAT 95
[2024-10-15 06:00] LABS: HEMOGLOBIN 9.9 g/dl (12.0-15.5); MEAN CORPUSCULAR HEMOGLOBIN 34.4 pg (27.0-33.0); MEAN CORPUSCULAR VOLUME 104.2 fl (80.0-96.0); PLATELET COUNT, AUTOMATED 151 10^3/uL (150-450); RED BLOOD COUNT 2.88 10^6/uL (4.00-5.40); WHITE BLOOD COUNT 4.7 10^3/uL (4.0-10.0)
[2024-10-15 09:11] VITALS: BP 168/98
[2024-10-15] MEDS ORDERED: LOPR1TAB7 PO (11:07)
[2024-10-15 11:52] VITALS: BP 140/100; TEMP 98.4; O2SAT 95
== END 2024-10-15 13:10 | disposition home health service (06) | DRG 690 ==
LOC: M ED 13:19 → M ED INP 17:38 → M MSPAV 20:24
PROVIDERS: ADMIT Student in an Organized Health Care Education/Training Program; ATTEND Student in an Organized Health Care Education/Training Program
PROC: 02HV33Z Insertion of Infusion Device into Superior Vena Cava, Percutaneous Approach (ICD-10-PCS; principal; 2024-10-10 09:37)
DX: N39.0 Urinary tract infection, site not specified (principal); I48.19 Other persistent atrial fibrillation; I50.22 Chronic systolic (congestive) heart failure; I13.0 Hypertensive heart and chronic kidney disease with heart failure and stage 1 through stage 4 chronic kidney disease, or unspecified chronic kidney disease; Z94.84 Stem cells transplant status; D75.81 Myelofibrosis; D80.1 Nonfamilial hypogammaglobulinemia; D63.8 Anemia in other chronic diseases classified elsewhere; N18.30 Chronic kidney disease, stage 3 unspecified; G47.33 Obstructive sleep apnea (adult) (pediatric); E78.5 Hyperlipidemia, unspecified; M10.9 Gout, unspecified; M79.7 Fibromyalgia; F32.A Depression, unspecified; G25.81 Restless legs syndrome; M32.9 Systemic lupus erythematosus, unspecified; M48.061 Spinal stenosis, lumbar region without neurogenic claudication; M54.16 Radiculopathy, lumbar region; K86.89 Other specified diseases of pancreas; N32.81 Overactive bladder; B96.1 Klebsiella pneumoniae [K. pneumoniae] as the cause of diseases classified elsewhere; R74.01 Elevation of levels of liver transaminase levels; R41.0 Disorientation, unspecified; N20.0 Calculus of kidney; D46.9 Myelodysplastic syndrome, unspecified; Z90.49 Acquired absence of other specified parts of digestive tract; Z79.01 Long term (current) use of anticoagulants; Z79.899 Other long term (current) drug therapy; Z88.1 Allergy status to other antibiotic agents; Z88.8 Allergy status to other drugs, medicaments and biological substances; Z91.018 Allergy to other foods; Z91.02 Food additives allergy status

== ENCOUNTER → 2024-10-21 | Outpatient (REF) | payer MEDICARE, OTHER ==
[~2024-10-21] MED LIST changes: +LOPR1TAB7 PO; +SULF400T14 PO
[2024-10-21 10:41] LABS: BASO % 0.5 % (0.0-1.0); EOS # 0.1 10^3/uL (0.0-0.5); EOS % 3.5 % (0.0-3.0); HEMATOCRIT 29.3 % (36.0-47.0); HEMOGLOBIN 9.7 g/dl (12.0-15.5); LYMPH # 0.7 10^3/uL (1.5-5.0); LYMPH % 17.3 % (24.0-44.0); MEAN CORPUSCULAR HGB CONC 33.1 g/dl (32.0-36.5); MEAN CORPUSCULAR VOLUME 105.8 fl (80.0-96.0); MONO # 0.5 10^3/uL (0.0-0.8); MONO % 12.5 % (2.0-8.0); NEUTROPHILS # 2.5 10^3/uL (1.5-8.5); NEUTROPHILS % 65.7 % (36.0-66.0); PLATELET COUNT, AUTOMATED 158 10^3/uL (150-450); RED BLOOD COUNT 2.77 10^6/uL (4.00-5.40); WHITE BLOOD COUNT 3.8 10^3/uL (4.0-10.0)
[2024-10-21 11:24] LABS: FERRITIN 81.6 NG/ML (7.3-270.7)
[2024-10-21 11:26] LABS: ALBUMIN 2.8 G/DL (3.2-5.2); BILIRUBIN,TOTAL 0.2 MG/DL (0.3-1.2); CALCIUM LEVEL 8.6 MG/DL (8.3-10.6); CREATININE FOR GFR 1.45 MG/DL (0.55-1.30); GLOMERULAR FILTRATION RATE 38.3 (>45); POTASSIUM SERUM 3.4 MMOL/L (3.5-5.1)
== END ==
LOC: M SHH 10:25
PROVIDERS: ATTEND Internal Medicine Hematology & Oncology
DX: D64.9 Anemia, unspecified (principal); Z94.81 Bone marrow transplant status

== ENCOUNTER → 2024-10-21 | Outpatient (REF) | payer MEDICARE, OTHER ==
[2024-10-21 10:47] LABS: BASO % 0.5 % (0.0-1.0); EOS # 0.1 10^3/uL (0.0-0.5); EOS % 3.8 % (0.0-3.0); HEMATOCRIT 29.1 % (36.0-47.0); HEMOGLOBIN 9.6 g/dl (12.0-15.5); LYMPH # 0.7 10^3/uL (1.5-5.0); LYMPH % 17.7 % (24.0-44.0); MEAN CORPUSCULAR HEMOGLOBIN 34.8 pg (27.0-33.0); MEAN CORPUSCULAR VOLUME 105.4 fl (80.0-96.0); MONO # 0.4 10^3/uL (0.0-0.8); MONO % 11.4 % (2.0-8.0); NEUTROPHILS # 2.4 10^3/uL (1.5-8.5); NEUTROPHILS % 66.3 % (36.0-66.0); PLATELET COUNT, AUTOMATED 148 10^3/uL (150-450); RED BLOOD COUNT 2.76 10^6/uL (4.00-5.40); WHITE BLOOD COUNT 3.7 10^3/uL (4.0-10.0)
[2024-10-21 11:55] LABS: ALBUMIN 2.8 G/DL (3.2-5.2); BILIRUBIN,TOTAL 0.2 MG/DL (0.3-1.2); CALCIUM LEVEL 8.6 MG/DL (8.3-10.6); CREATININE FOR GFR 1.44 MG/DL (0.55-1.30); GLOMERULAR FILTRATION RATE 38.7 (>45); POTASSIUM SERUM 3.4 MMOL/L (3.5-5.1)
== END ==
LOC: M SHH 10:20
PROVIDERS: ATTEND Nurse Practitioner Family
DX: Z94.81 Bone marrow transplant status (principal)

== ENCOUNTER → 2024-10-28 | Outpatient (REF) | payer MEDICARE, OTHER ==
[2024-10-28 11:41] LABS: BASO % 0.5 % (0.0-1.0); EOS # 0.1 10^3/uL (0.0-0.5); EOS % 3.4 % (0.0-3.0); HEMATOCRIT 30.5 % (36.0-47.0); HEMOGLOBIN 10.2 g/dl (12.0-15.5); LYMPH # 0.9 10^3/uL (1.5-5.0); LYMPH % 22.7 % (24.0-44.0); MEAN CORPUSCULAR HEMOGLOBIN 34.7 pg (27.0-33.0); MEAN CORPUSCULAR HGB CONC 33.4 g/dl (32.0-36.5); MEAN CORPUSCULAR VOLUME 103.7 fl (80.0-96.0); MONO # 0.5 10^3/uL (0.0-0.8); MONO % 12.4 % (2.0-8.0); NEUTROPHILS # 2.3 10^3/uL (1.5-8.5); NEUTROPHILS % 60.7 % (36.0-66.0); PLATELET COUNT, AUTOMATED 154 10^3/uL (150-450); RED BLOOD COUNT 2.94 10^6/uL (4.00-5.40); WHITE BLOOD COUNT 3.8 10^3/uL (4.0-10.0)
[2024-10-28 12:18] LABS: ALBUMIN 2.8 G/DL (3.2-5.2); BILIRUBIN,TOTAL 0.3 MG/DL (0.3-1.2); CALCIUM LEVEL 8.3 MG/DL (8.3-10.6); CREATININE FOR GFR 1.5 MG/DL (0.55-1.30); GLOMERULAR FILTRATION RATE 36.9 (>45); POTASSIUM SERUM 3.4 MMOL/L (3.5-5.1); TOTAL PROTEIN 4.8 G/DL (5.7-8.2)
== END ==
LOC: M SHH 10:49
PROVIDERS: ATTEND Nurse Practitioner Family
DX: Z94.81 Bone marrow transplant status (principal)

== ENCOUNTER → 2024-11-04 | Outpatient (REF) | payer MEDICARE, OTHER ==
[2024-11-04 12:38] LABS: BASO % 0.2 % (0.0-1.0); EOS # 0.1 10^3/uL (0.0-0.5); EOS % 2.3 % (0.0-3.0); HEMOGLOBIN 10.3 g/dl (12.0-15.5); LYMPH # 1.2 10^3/uL (1.5-5.0); LYMPH % 23.7 % (24.0-44.0); MEAN CORPUSCULAR HGB CONC 33.2 g/dl (32.0-36.5); MEAN CORPUSCULAR VOLUME 102.3 fl (80.0-96.0); MONO # 0.5 10^3/uL (0.0-0.8); MONO % 8.9 % (2.0-8.0); NEUTROPHILS # 3.4 10^3/uL (1.5-8.5); NEUTROPHILS % 64.7 % (36.0-66.0); PLATELET COUNT, AUTOMATED 166 10^3/uL (150-450); RED BLOOD COUNT 3.03 10^6/uL (4.00-5.40); WHITE BLOOD COUNT 5.2 10^3/uL (4.0-10.0)
[2024-11-04 13:16] LABS: ALBUMIN 3.4 G/DL (3.2-5.2); BILIRUBIN,TOTAL 0.3 MG/DL (0.3-1.2); CALCIUM LEVEL 9.2 MG/DL (8.3-10.6); CREATININE FOR GFR 1.48 MG/DL (0.55-1.30); GLOMERULAR FILTRATION RATE 37.4 (>45); POTASSIUM SERUM 3.8 MMOL/L (3.5-5.1); TOTAL PROTEIN 5.5 G/DL (5.7-8.2)
[2024-11-04 13:20] LABS: FERRITIN 67.8 NG/ML (7.3-270.7)
== END ==
LOC: M SHH 11:48
PROVIDERS: ATTEND Internal Medicine Hematology & Oncology
DX: D64.9 Anemia, unspecified (principal); D47.1 Chronic myeloproliferative disease

== ENCOUNTER → 2024-11-11 | Outpatient (REF) | payer MEDICARE, OTHER ==
[2024-11-11 11:46] LABS: BASO % 0.2 % (0.0-1.0); EOS # 0.1 10^3/uL (0.0-0.5); EOS % 2.2 % (0.0-3.0); HEMATOCRIT 28.9 % (36.0-47.0); HEMOGLOBIN 9.7 g/dl (12.0-15.5); LYMPH % 22.4 % (24.0-44.0); MEAN CORPUSCULAR HEMOGLOBIN 34.2 pg (27.0-33.0); MEAN CORPUSCULAR HGB CONC 33.6 g/dl (32.0-36.5); MEAN CORPUSCULAR VOLUME 101.8 fl (80.0-96.0); MONO # 0.4 10^3/uL (0.0-0.8); MONO % 8.9 % (2.0-8.0); NEUTROPHILS % 66.1 % (36.0-66.0); PLATELET COUNT, AUTOMATED 189 10^3/uL (150-450); RED BLOOD COUNT 2.84 10^6/uL (4.00-5.40); WHITE BLOOD COUNT 4.5 10^3/uL (4.0-10.0)
[2024-11-11 12:13] LABS: ALBUMIN 3.4 G/DL (3.2-5.2); BILIRUBIN,TOTAL 0.3 MG/DL (0.3-1.2); CALCIUM LEVEL 9.4 MG/DL (8.3-10.6); CREATININE FOR GFR 1.65 MG/DL (0.55-1.30); POTASSIUM SERUM 3.8 MMOL/L (3.5-5.1); TOTAL PROTEIN 5.4 G/DL (5.7-8.2)
== END ==
LOC: M SHH 10:29
PROVIDERS: ATTEND Nurse Practitioner Family
DX: Z94.81 Bone marrow transplant status (principal)

== ENCOUNTER → 2024-11-14 | Outpatient (CLI) | payer MEDICARE, OTHER ==
[2024-11-14 10:05] VITALS: BP 127/62; O2SAT 99
[2024-11-14] MEDS: ERTAPENEM SODIUM 1 GM in NS MINI-BAG PLUS 50 ML IV ONE (10:19)
[2024-11-14 10:50] VITALS: BP 141/98; O2SAT 98
== END ==
LOC: M INFU 09:37
PROVIDERS: ATTEND Internal Medicine Infectious Disease
DX: A49.8 Other bacterial infections of unspecified site (principal); Z88.1 Allergy status to other antibiotic agents; Z88.8 Allergy status to other drugs, medicaments and biological substances; Z91.041 Radiographic dye allergy status; Z91.048 Other nonmedicinal substance allergy status; Z91.018 Allergy to other foods
CPT/HCPCS: 96365; J1335

== ENCOUNTER → 2024-11-18 | Outpatient (REF) | payer MEDICARE, OTHER ==
[2024-11-18 12:34] LABS: BASO % 0.2 % (0.0-1.0); EOS # 0.1 10^3/uL (0.0-0.5); EOS % 1.5 % (0.0-3.0); HEMATOCRIT 32.5 % (36.0-47.0); HEMOGLOBIN 10.9 g/dl (12.0-15.5); LYMPH # 1.4 10^3/uL (1.5-5.0); LYMPH % 26.4 % (24.0-44.0); MEAN CORPUSCULAR HEMOGLOBIN 34.8 pg (27.0-33.0); MEAN CORPUSCULAR HGB CONC 33.5 g/dl (32.0-36.5); MEAN CORPUSCULAR VOLUME 103.8 fl (80.0-96.0); MONO # 0.6 10^3/uL (0.0-0.8); MONO % 10.6 % (2.0-8.0); NEUTROPHILS # 3.2 10^3/uL (1.5-8.5); NEUTROPHILS % 61.1 % (36.0-66.0); PLATELET COUNT, AUTOMATED 223 10^3/uL (150-450); RED BLOOD COUNT 3.13 10^6/uL (4.00-5.40); WHITE BLOOD COUNT 5.3 10^3/uL (4.0-10.0)
[2024-11-18 13:02] LABS: ALBUMIN 3.7 G/DL (3.2-5.2); BILIRUBIN,TOTAL 0.3 MG/DL (0.3-1.2); CALCIUM LEVEL 9.5 MG/DL (8.3-10.6); CREATININE FOR GFR 1.65 MG/DL (0.55-1.30); POTASSIUM SERUM 4.2 MMOL/L (3.5-5.1); TOTAL PROTEIN 5.9 G/DL (5.7-8.2)
== END ==
LOC: M LAB REF 11:12 → M SHH 11:12
PROVIDERS: ATTEND Nurse Practitioner Family
DX: Z94.81 Bone marrow transplant status (principal)

== ENCOUNTER → 2024-11-18 | Outpatient (REF) | payer MEDICARE, OTHER ==
[2024-11-18 11:52] LABS: BASO % 0.4 % (0.0-1.0); EOS # 0.1 10^3/uL (0.0-0.5); EOS % 1.1 % (0.0-3.0); HEMATOCRIT 32.2 % (36.0-47.0); HEMOGLOBIN 10.8 g/dl (12.0-15.5); LYMPH # 1.4 10^3/uL (1.5-5.0); LYMPH % 25.9 % (24.0-44.0); MEAN CORPUSCULAR HEMOGLOBIN 34.2 pg (27.0-33.0); MEAN CORPUSCULAR HGB CONC 33.5 g/dl (32.0-36.5); MEAN CORPUSCULAR VOLUME 101.9 fl (80.0-96.0); MONO # 0.6 10^3/uL (0.0-0.8); MONO % 11.1 % (2.0-8.0); NEUTROPHILS # 3.3 10^3/uL (1.5-8.5); NEUTROPHILS % 61.3 % (36.0-66.0); PLATELET COUNT, AUTOMATED 221 10^3/uL (150-450); RED BLOOD COUNT 3.16 10^6/uL (4.00-5.40); WHITE BLOOD COUNT 5.3 10^3/uL (4.0-10.0)
[2024-11-18 12:21] LABS: ALBUMIN 3.7 G/DL (3.2-5.2); BILIRUBIN,TOTAL 0.3 MG/DL (0.3-1.2); CALCIUM LEVEL 9.4 MG/DL (8.3-10.6); CREATININE FOR GFR 1.7 MG/DL (0.55-1.30); GLOMERULAR FILTRATION RATE 31.9 (>45); POTASSIUM SERUM 4.1 MMOL/L (3.5-5.1); TOTAL PROTEIN 5.9 G/DL (5.7-8.2)
[2024-11-18 12:31] LABS: FERRITIN 63.4 NG/ML (7.3-270.7)
== END ==
LOC: M SHH 11:08
PROVIDERS: ATTEND Internal Medicine Hematology & Oncology
DX: D47.1 Chronic myeloproliferative disease (principal)

== ENCOUNTER → 2024-11-21 | Outpatient (REF) | payer MEDICARE, OTHER ==
[2024-11-21 18:16] LABS: APPEARANCE, URINE CLEAR (CLEAR); BACTERIA, URINE AUTO 1+ (NEGATIVE); BILIRUBIN, URINE AUTO NEGATIVE (NEGATIVE); BLOOD, URINE BLOOD NEGATIVE (NEGATIVE); COLOR, URINE YELLOW (YELLOW); GLUCOSE, URINE (UA) AUTO NEGATIVE (NEGATIVE); KETONE, URINE AUTO NEGATIVE (NEGATIVE); LEUKOCYTE ESTERASE, URINE AUTO NEGATIVE (NEGATIVE); MUCUS, URINE SMALL (NEGATIVE); NITRITE, URINE AUTO NEGATIVE (NEGATIVE); PROTEIN, URINE AUTO 2+ mg/dL (NEGATIVE); RBC, URINE AUTO 1 /HPF (0-3); SPECIFIC GRAVITY URINE AUTO 1.009 (1.002-1.035); SQUAMOUS EPITHELIAL CELL UR AU 0 /HPF (0-6); UROBILINOGEN, URINE AUTO 0.2 mg/dL (0.0-2.0); WBC, URINE AUTO 1 /HPF (0-3)
== END ==
LOC: M SMT 17:24
PROVIDERS: ATTEND Nurse Practitioner Family
DX: R39.9 Unspecified symptoms and signs involving the genitourinary system (principal)

== ENCOUNTER 2024-11-23 11:42 | Emergency (ER) | payer MEDICARE, OTHER ==
[~2024-11-23] VITALS: Ht 165.1 cm; Wt 60.5 kg
[2024-11-23 14:12] LABS: BASO % 0.2 % (0.0-1.0); EOS % 0.8 % (0.0-3.0); HEMATOCRIT 30.5 % (36.0-47.0); HEMOGLOBIN 10.3 g/dl (12.0-15.5); LYMPH # 1.3 10^3/uL (1.5-5.0); LYMPH % 25.9 % (24.0-44.0); MEAN CORPUSCULAR HEMOGLOBIN 34.3 pg (27.0-33.0); MEAN CORPUSCULAR HGB CONC 33.8 g/dl (32.0-36.5); MEAN CORPUSCULAR VOLUME 101.7 fl (80.0-96.0); MONO # 0.6 10^3/uL (0.0-0.8); MONO % 12.2 % (2.0-8.0); NEUTROPHILS # 3.1 10^3/uL (1.5-8.5); NEUTROPHILS % 60.7 % (36.0-66.0); PLATELET COUNT, AUTOMATED 168 10^3/uL (150-450); WHITE BLOOD COUNT 5.2 10^3/uL (4.0-10.0)
[2024-11-23 14:38] LABS: CALCIUM LEVEL 9.2 MG/DL (8.3-10.6); CREATININE FOR GFR 1.56 MG/DL (0.55-1.30); GLOMERULAR FILTRATION RATE 35.2 (>45); POTASSIUM SERUM 3.5 MMOL/L (3.5-5.1)
[2024-11-23 15:11] VITALS: BP 170/90; TEMP 96.2; O2SAT 98
== END 2024-11-23 15:21 | disposition home or self-care (01) ==
LOC: M ED 11:42
DX: N39.0 Urinary tract infection, site not specified (principal); I10 Essential (primary) hypertension; E03.9 Hypothyroidism, unspecified; N18.30 Chronic kidney disease, stage 3 unspecified; Z86.73 Personal history of transient ischemic attack (TIA), and cerebral infarction without residual deficits; Z86.718 Personal history of other venous thrombosis and embolism; Z79.01 Long term (current) use of anticoagulants; Z88.1 Allergy status to other antibiotic agents; Z88.8 Allergy status to other drugs, medicaments and biological substances; Z91.048 Other nonmedicinal substance allergy status; Z91.041 Radiographic dye allergy status; Z79.899 Other long term (current) drug therapy
CPT/HCPCS: 36415; 80048; 85025; 96365; 99284; J1335

== ENCOUNTER → 2024-11-23 | Outpatient (CLI) | payer MEDICARE, OTHER ==
[2024-11-23 10:20] VITALS: BP 163/79; O2SAT 100
[2024-11-23] MEDS: ERTAPENEM SODIUM 1 GM in NS MINI-BAG PLUS 50 ML IV ONE (10:42)
[2024-11-23 11:30] VITALS: BP 170/84; O2SAT 100
== END ==
LOC: M ED 09:53
PROVIDERS: ATTEND Internal Medicine Infectious Disease
DX: N39.0 Urinary tract infection, site not specified (principal); Z88.1 Allergy status to other antibiotic agents; Z88.8 Allergy status to other drugs, medicaments and biological substances; Z91.041 Radiographic dye allergy status; Z91.048 Other nonmedicinal substance allergy status; Z91.018 Allergy to other foods

== ENCOUNTER → 2024-11-24 | Outpatient (CLI) | payer MEDICARE, OTHER ==
[~2024-11-24] VITALS: Ht 165.1 cm; Wt 60.0 kg
[2024-11-24 10:15] VITALS: BP 162/81; O2SAT 100
[2024-11-24] MEDS: ERTAPENEM SODIUM 1 GM in NS MINI-BAG PLUS 50 ML IV ONE (10:30)
[2024-11-24 11:30] VITALS: BP 144/90; O2SAT 96
== END ==
LOC: M ED 09:59
PROVIDERS: ATTEND Internal Medicine Infectious Disease
DX: N39.0 Urinary tract infection, site not specified (principal); Z88.1 Allergy status to other antibiotic agents; Z88.8 Allergy status to other drugs, medicaments and biological substances; Z91.041 Radiographic dye allergy status; Z91.048 Other nonmedicinal substance allergy status
CPT/HCPCS: 96365; J1335

== ENCOUNTER 2024-11-25 09:59 | Outpatient (CLI) | payer MEDICARE, OTHER ==
[~2024-11-25] VITALS: Ht 165.1 cm; Wt 60.5 kg
[2024-11-25 09:50] VITALS: BP 145/91; O2SAT 99
[2024-11-25] MEDS: ERTAPENEM SODIUM 1 GM in NS MINI-BAG PLUS 50 ML IV ONE (10:19)
[2024-11-25 10:50] VITALS: BP 143/100; O2SAT 99
== END 2024-11-25 10:55 ==
LOC: M INFU 09:59
PROVIDERS: ATTEND Internal Medicine Infectious Disease
DX: N39.0 Urinary tract infection, site not specified (principal); B96.1 Klebsiella pneumoniae [K. pneumoniae] as the cause of diseases classified elsewhere; Z16.12 Extended spectrum beta lactamase (ESBL) resistance; Z88.8 Allergy status to other drugs, medicaments and biological substances; Z88.1 Allergy status to other antibiotic agents; Z91.89 Other specified personal risk factors, not elsewhere classified; Z91.041 Radiographic dye allergy status

== ENCOUNTER → 2024-11-25 | Outpatient (CLI) | payer MEDICARE, OTHER | LOC: M INFU 09:31 | PROVIDERS: ATTEND Internal Medicine Infectious Disease | DX: Z53.9 Procedure and treatment not carried out, unspecified reason (principal) ==

== ENCOUNTER → 2024-11-27 | Outpatient (REF) | payer MEDICARE, OTHER ==
[2024-11-27 13:14] LABS: APPEARANCE, URINE CLEAR (CLEAR); BACTERIA, URINE AUTO NEGATIVE (NEGATIVE); BILIRUBIN, URINE AUTO NEGATIVE (NEGATIVE); BLOOD, URINE BLOOD 2+ (NEGATIVE); COLOR, URINE YELLOW (YELLOW); GLUCOSE, URINE (UA) AUTO NEGATIVE (NEGATIVE); KETONE, URINE AUTO NEGATIVE (NEGATIVE); LEUKOCYTE ESTERASE, URINE AUTO NEGATIVE (NEGATIVE); MUCUS, URINE SMALL (NEGATIVE); NITRITE, URINE AUTO NEGATIVE (NEGATIVE); PROTEIN, URINE AUTO 3+ mg/dL (NEGATIVE); RBC, URINE AUTO 26 /HPF (0-3); SPECIFIC GRAVITY URINE AUTO 1.011 (1.002-1.035); SQUAMOUS EPITHELIAL CELL UR AU 1 /HPF (0-6); UROBILINOGEN, URINE AUTO 0.2 mg/dL (0.0-2.0); WBC, URINE AUTO 7 /HPF (0-3)
== END ==
LOC: M SFHCPLAZ 12:31
PROVIDERS: ATTEND Internal Medicine Infectious Disease
DX: N39.0 Urinary tract infection, site not specified (principal)

== ENCOUNTER → 2024-12-09 | Outpatient (REF) | payer MEDICARE, OTHER ==
[2024-12-09 12:38] LABS: BASO % 0.2 % (0.0-1.0); EOS # 0.1 10^3/uL (0.0-0.5); EOS % 1.3 % (0.0-3.0); HEMATOCRIT 29.2 % (36.0-47.0); HEMOGLOBIN 10.1 g/dl (12.0-15.5); LYMPH # 1.1 10^3/uL (1.5-5.0); LYMPH % 23.8 % (24.0-44.0); MEAN CORPUSCULAR HEMOGLOBIN 34.9 pg (27.0-33.0); MEAN CORPUSCULAR HGB CONC 34.6 g/dl (32.0-36.5); MONO # 0.6 10^3/uL (0.0-0.8); MONO % 12.3 % (2.0-8.0); NEUTROPHILS # 2.8 10^3/uL (1.5-8.5); NEUTROPHILS % 62.2 % (36.0-66.0); PLATELET COUNT, AUTOMATED 178 10^3/uL (150-450); RED BLOOD COUNT 2.89 10^6/uL (4.00-5.40); WHITE BLOOD COUNT 4.5 10^3/uL (4.0-10.0)
[2024-12-09 13:22] LABS: ALBUMIN 3.3 G/DL (3.2-5.2); BILIRUBIN,TOTAL 0.5 MG/DL (0.3-1.2); CALCIUM LEVEL 9.5 MG/DL (8.3-10.6); CREATININE FOR GFR 1.75 MG/DL (0.55-1.30); GLOMERULAR FILTRATION RATE 30.9 (>45); POTASSIUM SERUM 4.5 MMOL/L (3.5-5.1); TOTAL PROTEIN 5.8 G/DL (5.7-8.2)
== END ==
LOC: M SHH 11:19
PROVIDERS: ATTEND Nurse Practitioner Family
DX: Z94.81 Bone marrow transplant status (principal)

== ENCOUNTER → 2024-12-09 | Outpatient (REF) | payer MEDICARE, OTHER ==
[2024-12-09 12:34] LABS: BASO % 0.2 % (0.0-1.0); EOS # 0.1 10^3/uL (0.0-0.5); EOS % 1.7 % (0.0-3.0); HEMATOCRIT 29.8 % (36.0-47.0); LYMPH # 1.2 10^3/uL (1.5-5.0); LYMPH % 25.2 % (24.0-44.0); MEAN CORPUSCULAR HEMOGLOBIN 33.9 pg (27.0-33.0); MEAN CORPUSCULAR HGB CONC 33.6 g/dl (32.0-36.5); MONO # 0.6 10^3/uL (0.0-0.8); MONO % 12.4 % (2.0-8.0); NEUTROPHILS # 2.8 10^3/uL (1.5-8.5); NEUTROPHILS % 60.5 % (36.0-66.0); PLATELET COUNT, AUTOMATED 169 10^3/uL (150-450); RED BLOOD COUNT 2.95 10^6/uL (4.00-5.40); WHITE BLOOD COUNT 4.6 10^3/uL (4.0-10.0)
[2024-12-09 13:02] LABS: FERRITIN 91.1 NG/ML (7.3-270.7)
[2024-12-09 13:03] LABS: ALBUMIN 3.3 G/DL (3.2-5.2); BILIRUBIN,TOTAL 0.5 MG/DL (0.3-1.2); CALCIUM LEVEL 9.4 MG/DL (8.3-10.6); CREATININE FOR GFR 1.76 MG/DL (0.55-1.30); GLOMERULAR FILTRATION RATE 30.7 (>45); POTASSIUM SERUM 4.4 MMOL/L (3.5-5.1); TOTAL PROTEIN 5.8 G/DL (5.7-8.2)
== END ==
LOC: M SHH 11:16 → M LAB REF 11:16
PROVIDERS: ATTEND Internal Medicine Hematology & Oncology
DX: D64.9 Anemia, unspecified (principal); Z94.81 Bone marrow transplant status

== ENCOUNTER → 2024-12-17 | Outpatient (REF) | payer MEDICARE, OTHER ==
[2024-12-17 14:16] LABS: BASO % 0.2 % (0.0-1.0); EOS # 0.1 10^3/uL (0.0-0.5); EOS % 1.1 % (0.0-3.0); LYMPH # 1.4 10^3/uL (1.5-5.0); LYMPH % 25.4 % (24.0-44.0); MEAN CORPUSCULAR HEMOGLOBIN 34.8 pg (27.0-33.0); MEAN CORPUSCULAR VOLUME 102.1 fl (80.0-96.0); MONO # 0.9 10^3/uL (0.0-0.8); MONO % 16.4 % (2.0-8.0); NEUTROPHILS % 55.1 % (36.0-66.0); PLATELET COUNT, AUTOMATED 116 10^3/uL (150-450); RED BLOOD COUNT 1.87 10^6/uL (4.00-5.40); WHITE BLOOD COUNT 5.4 10^3/uL (4.0-10.0)
[2024-12-17 14:21] LABS: HEMATOCRIT 19.1 % (36.0-47.0); HEMOGLOBIN 6.5 g/dl (12.0-15.5)
[2024-12-17 15:24] LABS: ALBUMIN 2.7 G/DL (3.2-5.2); ALKALINE PHOSPHATASE 98 U/L (35-104); ALT/SGPT 73 U/L (7.0-40); AST/SGOT 45 U/L (<34); BILIRUBIN,TOTAL < 0.2 MG/DL (0.3-1.2); BLOOD UREA NITROGEN 65 MG/DL (9-23); CALCIUM LEVEL 8.6 MG/DL (8.3-10.6); CARBON DIOXIDE LEVEL 21 MMOL/L (20-31); CHLORIDE LEVEL 111 MMOL/L (98-107); CREATININE FOR GFR 1.79 MG/DL (0.55-1.30); GLOMERULAR FILTRATION RATE 30.1 (>45); GLUCOSE, FASTING 116 MG/DL (74-106); POTASSIUM SERUM 4.1 MMOL/L (3.5-5.1); SODIUM LEVEL 146 MMOL/L (136-145); TOTAL PROTEIN 4.6 G/DL (5.7-8.2)
== END ==
LOC: M SHH 13:29
PROVIDERS: ATTEND Nurse Practitioner Family
DX: Z94.81 Bone marrow transplant status (principal)

== ENCOUNTER → 2024-12-17 | Outpatient (REF) | payer MEDICARE, OTHER ==
[2024-12-17 14:11] LABS: BASO % 0.2 % (0.0-1.0); EOS # 0.1 10^3/uL (0.0-0.5); EOS % 0.9 % (0.0-3.0); LYMPH # 1.5 10^3/uL (1.5-5.0); LYMPH % 27.4 % (24.0-44.0); MEAN CORPUSCULAR HEMOGLOBIN 35.1 pg (27.0-33.0); MEAN CORPUSCULAR HGB CONC 34.4 g/dl (32.0-36.5); MEAN CORPUSCULAR VOLUME 102.1 fl (80.0-96.0); MONO # 0.8 10^3/uL (0.0-0.8); MONO % 14.2 % (2.0-8.0); NEUTROPHILS # 2.9 10^3/uL (1.5-8.5); NEUTROPHILS % 54.7 % (36.0-66.0); PLATELET COUNT, AUTOMATED 110 10^3/uL (150-450); RED BLOOD COUNT 1.88 10^6/uL (4.00-5.40); WHITE BLOOD COUNT 5.4 10^3/uL (4.0-10.0)
[2024-12-17 14:18] LABS: HEMOGLOBIN 6.6 g/dl (12.0-15.5)
[2024-12-17 14:20] LABS: HEMATOCRIT 19.2 % (36.0-47.0)
[2024-12-17 15:07] LABS: ALBUMIN 2.7 G/DL (3.2-5.2); BILIRUBIN,TOTAL 0.2 MG/DL (0.3-1.2); CALCIUM LEVEL 8.5 MG/DL (8.3-10.6); CREATININE FOR GFR 1.79 MG/DL (0.55-1.30); FERRITIN 118.9 NG/ML (7.3-270.7); GLOMERULAR FILTRATION RATE 30.1 (>45); POTASSIUM SERUM 4.1 MMOL/L (3.5-5.1); TOTAL PROTEIN 4.8 G/DL (5.7-8.2)
== END ==
LOC: M SHH 13:27
PROVIDERS: ATTEND Specialist
DX: D64.9 Anemia, unspecified (principal)

== ENCOUNTER → 2024-12-23 | Outpatient (REF) | payer MEDICARE, OTHER ==
[2024-12-23 11:19] LABS: BASO % 0.3 % (0.0-1.0); EOS # 0.1 10^3/uL (0.0-0.5); EOS % 1.4 % (0.0-3.0); LYMPH # 0.9 10^3/uL (1.5-5.0); LYMPH % 14.1 % (24.0-44.0); MEAN CORPUSCULAR HEMOGLOBIN 34.3 pg (27.0-33.0); MEAN CORPUSCULAR HGB CONC 33.2 g/dl (32.0-36.5); MEAN CORPUSCULAR VOLUME 103.5 fl (80.0-96.0); MONO # 0.8 10^3/uL (0.0-0.8); MONO % 12.3 % (2.0-8.0); NEUTROPHILS # 4.5 10^3/uL (1.5-8.5); NEUTROPHILS % 71.6 % (36.0-66.0); PLATELET COUNT, AUTOMATED 170 10^3/uL (150-450); RED BLOOD COUNT 2.01 10^6/uL (4.00-5.40); WHITE BLOOD COUNT 6.3 10^3/uL (4.0-10.0)
[2024-12-23 11:29] LABS: HEMATOCRIT 20.8 % (36.0-47.0); HEMOGLOBIN 6.9 g/dl (12.0-15.5)
[2024-12-23 11:40] LABS: BILIRUBIN,TOTAL 0.3 MG/DL (0.3-1.2); CALCIUM LEVEL 8.6 MG/DL (8.3-10.6); CREATININE FOR GFR 1.81 MG/DL (0.55-1.30); GLOMERULAR FILTRATION RATE 29.7 (>45); POTASSIUM SERUM 3.9 MMOL/L (3.5-5.1); TOTAL PROTEIN 5.4 G/DL (5.7-8.2)
== END ==
LOC: M LAB REF 10:09
PROVIDERS: ATTEND Nurse Practitioner Family
DX: Z94.81 Bone marrow transplant status (principal)

== ENCOUNTER → 2025-01-20 | Outpatient (CLI) | payer MEDICARE, OTHER ==
[~2025-01-20] MED LIST changes: +CYCL1DRO10 OU; +GLUC1KIT IM; +ISOS1TAB35 PO
[2025-01-20 10:48] LABS: BASO % 0.7 % (0.0-1.0); EOS # 0.3 10^3/uL (0.0-0.5); EOS % 4.2 % (0.0-3.0); HEMATOCRIT 29.6 % (36.0-47.0); HEMOGLOBIN 9.5 g/dl (12.0-15.5); LYMPH # 1.6 10^3/uL (1.5-5.0); LYMPH % 27.2 % (24.0-44.0); MEAN CORPUSCULAR HEMOGLOBIN 33.1 pg (27.0-33.0); MEAN CORPUSCULAR HGB CONC 32.1 g/dl (32.0-36.5); MEAN CORPUSCULAR VOLUME 103.1 fl (80.0-96.0); MONO # 0.8 10^3/uL (0.0-0.8); MONO % 14.2 % (2.0-8.0); NEUTROPHILS # 3.2 10^3/uL (1.5-8.5); NEUTROPHILS % 53.4 % (36.0-66.0); PLATELET COUNT, AUTOMATED 212 10^3/uL (150-450); RED BLOOD COUNT 2.87 10^6/uL (4.00-5.40); WHITE BLOOD COUNT 5.9 10^3/uL (4.0-10.0)
[2025-01-20 11:20] LABS: ALBUMIN 3.1 G/DL (3.2-5.2); BILIRUBIN,TOTAL 0.3 MG/DL (0.3-1.2); CREATININE FOR GFR 1.47 MG/DL (0.55-1.30); GLOMERULAR FILTRATION RATE 37.7 (>45); POTASSIUM SERUM 4.2 MMOL/L (3.5-5.1); TOTAL PROTEIN 5.7 G/DL (5.7-8.2)
== END ==
LOC: M PLALAB 09:06
PROVIDERS: ATTEND Internal Medicine Infectious Disease
DX: C94.40 Acute panmyelosis with myelofibrosis not having achieved remission (principal)

== ENCOUNTER 2025-01-23 00:50 | Inpatient (IN) | payer MEDICARE, OTHER ==
[~2025-01-23] VITALS: Ht 165.1 cm; Wt 60.1 kg
[~2025-01-23 00:50] MED LIST changes: -CYCL1DRO10 OU; -GLUC1KIT IM; -ISOS1TAB35 PO
[2025-01-23 05:24] LABS: KETONE, URINE AUTO RFX NEGATIVE (NEGATIVE); MUCUS, URINE RFX SMALL (NEGATIVE); RBC, URINE AUTO RFX 25 /HPF (0-3); SQUAM EPITHELIAL CELL UR AURFX 0 /HPF (0-6)
[2025-01-23 05:44] LABS: LEUKOCYTE ESTERASE UR AUTO RFX 1+ (NEGATIVE); NITRITE, URINE AUTO RFX POSITIVE (NEGATIVE); WBC, URINE AUTO RFX 143 /HPF (0-3)
[2025-01-23 07:46] LABS: BASO % 0.5 % (0.0-1.0); EOS # 0.2 10^3/uL (0.0-0.5); EOS % 2.2 % (0.0-3.0); HEMATOCRIT 32.6 % (36.0-47.0); HEMOGLOBIN 10.7 g/dl (12.0-15.5); LYMPH # 1.4 10^3/uL (1.5-5.0); LYMPH % 17.2 % (24.0-44.0); MEAN CORPUSCULAR HEMOGLOBIN 33.8 pg (27.0-33.0); MEAN CORPUSCULAR HGB CONC 32.8 g/dl (32.0-36.5); MEAN CORPUSCULAR VOLUME 102.8 fl (80.0-96.0); MONO # 0.8 10^3/uL (0.0-0.8); MONO % 10.4 % (2.0-8.0); NEUTROPHILS # 5.5 10^3/uL (1.5-8.5); NEUTROPHILS % 69.3 % (36.0-66.0); PLATELET COUNT, AUTOMATED 244 10^3/uL (150-450); RED BLOOD COUNT 3.17 10^6/uL (4.00-5.40); WHITE BLOOD COUNT 7.9 10^3/uL (4.0-10.0)
[2025-01-23 08:10] LABS: CALCIUM LEVEL 9.5 MG/DL (8.3-10.6); CREATININE FOR GFR 1.7 MG/DL (0.55-1.30); GLOMERULAR FILTRATION RATE 31.9 (>45); POTASSIUM SERUM 4.4 MMOL/L (3.5-5.1)
[2025-01-23 08:37] LABS: ETHYL ALCOHOL (ETHANOL) < 0.003 % (0.000-0.010)
[2025-01-23 08:38] LABS: AMPHETAMINES LEVEL URINE NEGATIVE (NEGATIVE); BARBITURATES URINE NEGATIVE (NEGATIVE); BENZODIAZEPINES URINE NEGATIVE (NEGATIVE); CANNABINOIDS URINE NEGATIVE (NEGATIVE); COCAINE METABOLITE URINE NEGATIVE (NEGATIVE); METHADONE URINE NEGATIVE (NEGATIVE); OPIATES URINE NEGATIVE (NEGATIVE); PHENCYCLIDINE URINE NEGATIVE (NEGATIVE)
[2025-01-23 08:38] LABS: SALICYLATE LEVEL < 3.0 MG/DL (<30)
[2025-01-23 08:40] LABS: THYROID STIMULATING HORMONE 2.413 uIU/ML (0.55-4.78)
[2025-01-23] MEDS: LINEZOLID 600 MG in IV 1 EA IV ONE (09:45)
[2025-01-23] MEDS ORDERED: OLANZapine 2.5MG TABLET PO PRN (10:00)
[2025-01-23] MEDS ORDERED: CYCL1DRO10 OU (10:18)
[2025-01-23] MEDS ORDERED: ISOS1TAB35 PO (10:18)
[2025-01-23] MEDS ORDERED: GLUC1KIT IM (10:18)
[2025-01-23] MEDS ORDERED: DEXA0.5E2 PO (10:18)
[2025-01-23] MEDS ORDERED: METO1TAB33 PO (10:18)
[2025-01-23] MEDS ORDERED: HOME MED LIST COMPLETE! XX SCH (10:20)
[2025-01-23] MEDS: APIXABAN 5 MG TAB (ELIQUIS) PO SCH (10:34)
[2025-01-23 11:00] LABS: INR 1.78; PARTIAL THROMBOPLASTIN TIME 34.1 SECONDS (24.8-34.2); PROTHROMBIN TIME 20.9 SECONDS (12.5-14.5)
[2025-01-23] MEDS ORDERED: TRIAMCINOLONE ACET 0.1% CREAM 80GM TOP PRN (11:00)
[2025-01-23] MEDS ORDERED: TORSEMIDE 20 MG TAB PO PRN (11:00)
[2025-01-23] MEDS: METOPROLOL SUCC (TopROL XL) 100MG *XL* TAB PO SCH (11:02)
[2025-01-23] MEDS: MEROPENEM INJ 1 GM in IV 1 EA IV SCH (13:02)
[2025-01-23] MEDS: oxyBUTYnin *DITROPAN XL* 5 MG TABCR PO SCH (13:02)
[2025-01-23] MEDS: ISOSORBIDE MON. (IMDUR) 30MG XR TAB PO SCH (13:03)
[2025-01-23] MEDS: ACYCLOVIR 200 MG CAPSULE PO SCH (13:03)
[2025-01-23] MEDS: allopurinoL 100 MG TAB PO SCH (13:04)
[2025-01-23] MEDS: MULTIVITAMINS/MINERALS THERAP 1 TAB PO SCH (13:05)
[2025-01-23] MEDS: TORSEMIDE 20 MG TAB PO SCH (13:05)
[2025-01-23] MEDS: LACTOBACILLUS ACIDOPHILUS CAP (BACID) PO SCH (13:05)
[2025-01-23] MEDS: FOLIC ACID 1MG TAB PO SCH (13:05)
[2025-01-23] MEDS: DOCUSATE SODIUM 100MG CAPSULE PO SCH (13:05)
[2025-01-23] MEDS: HYDROXYCHLOROQUINE 200 MG TAB PO SCH (15:32)
[2025-01-23 16:00] VITALS: BP 137/99; TEMP 98.8; O2SAT 96
[2025-01-23] MEDS ORDERED: LACTULOSE 20GM/30ML SYRUP UDC PO PRN (16:00)
[2025-01-23] MEDS: ERYTHROMYCIN ETHYLSUCCINATE PO SCH (17:26)
[2025-01-23] MEDS: dexAMETHasone 1 MG TAB PO SCH (17:27)
[2025-01-23] MEDS: **hydrALAZINE HCL** 25 MG TAB PO SCH (17:27)
[2025-01-23] MEDS: CREON-24 CAPSULE (PANCRELIPASE) PO SCH (17:27)
[2025-01-23] MEDS: CREON-12 CAPSULE (PANCRELIPASE) PO SCH (17:28)
[2025-01-23 18:26] LABS: CK-MB VALUE MASS 4.5 NG/ML (<3.6)
[2025-01-23 18:29] LABS: MB/CK RELATIVE INDEX 3.98 (< OR =4)
[2025-01-23 20:00] VITALS: BP 121/81; TEMP 98.4; O2SAT 96
[2025-01-23] MEDS: PRAMIPEXOLE (MIRAPEX) 0.125 MG TAB PO SCH (20:54)
[2025-01-23] MEDS: ACETAMINOPHEN 325 MG TAB PO PRN (20:57)
[2025-01-23] MEDS: POTASSIUM CHLORIDE 10MEQ SR TABLET PO SCH (20:59)
[2025-01-23] MEDS: OLANZapine 5 MG TAB PO SCH (20:59)
[2025-01-23] MEDS ORDERED: SERTRALINE HCL 50 MG TAB PO SCH (21:00)
[2025-01-23] MEDS: GABAPENTIN 100 MG CAP PO SCH (21:00)
[2025-01-23] MEDS ORDERED: APIXABAN 5 MG TAB (ELIQUIS) PO SCH (21:00)
[2025-01-24 04:00] VITALS: BP 132/80; TEMP 97.2; O2SAT 100
[2025-01-24 06:24] LABS: HEMATOCRIT 28.4 % (36.0-47.0); HEMOGLOBIN 9.3 g/dl (12.0-15.5); MEAN CORPUSCULAR HEMOGLOBIN 33.1 pg (27.0-33.0); MEAN CORPUSCULAR HGB CONC 32.7 g/dl (32.0-36.5); MEAN CORPUSCULAR VOLUME 101.1 fl (80.0-96.0); PLATELET COUNT, AUTOMATED 206 10^3/uL (150-450); RED BLOOD COUNT 2.81 10^6/uL (4.00-5.40); WHITE BLOOD COUNT 6.3 10^3/uL (4.0-10.0)
[2025-01-24 06:47] LABS: ALBUMIN 2.9 G/DL (3.2-5.2); BILIRUBIN,TOTAL 0.5 MG/DL (0.3-1.2); CALCIUM LEVEL 8.7 MG/DL (8.3-10.6); CREATININE FOR GFR 1.61 MG/DL (0.55-1.30); POTASSIUM SERUM 3.5 MMOL/L (3.5-5.1); TOTAL PROTEIN 5.2 G/DL (5.7-8.2)
[2025-01-24] MEDS: BACTRIM 80MG/400MG TAB PO SCH (08:36)
[2025-01-24 12:33] VITALS: BP 120/79; TEMP 98.2; O2SAT 97
[2025-01-24 20:00] VITALS: BP 118/74; TEMP 98.1; O2SAT 96
[2025-01-24] MEDS: RUXOLITINIB 5 MG PO SCH (20:14)
[2025-01-25 04:00] VITALS: BP 114/71; TEMP 98.2; O2SAT 97
[2025-01-25 06:17] LABS: HEMATOCRIT 27.9 % (36.0-47.0); HEMOGLOBIN 9.1 g/dl (12.0-15.5); MEAN CORPUSCULAR HEMOGLOBIN 33.3 pg (27.0-33.0); MEAN CORPUSCULAR HGB CONC 32.6 g/dl (32.0-36.5); MEAN CORPUSCULAR VOLUME 102.2 fl (80.0-96.0); PLATELET COUNT, AUTOMATED 218 10^3/uL (150-450); RED BLOOD COUNT 2.73 10^6/uL (4.00-5.40); WHITE BLOOD COUNT 6.6 10^3/uL (4.0-10.0)
[2025-01-25 06:39] LABS: BILIRUBIN,TOTAL 0.3 MG/DL (0.3-1.2); CALCIUM LEVEL 9.5 MG/DL (8.3-10.6); CREATININE FOR GFR 1.77 MG/DL (0.55-1.30); GLOMERULAR FILTRATION RATE 30.5 (>45); POTASSIUM SERUM 4.1 MMOL/L (3.5-5.1); TOTAL PROTEIN 5.4 G/DL (5.7-8.2)
[2025-01-25 12:00] VITALS: BP 141/97; TEMP 98.2; O2SAT 99
[2025-01-25] MEDS ORDERED: PILL CUTTER 1 EACH XX PRN (18:00)
[2025-01-25 20:00] VITALS: BP 139/91; TEMP 98.8; O2SAT 95
[2025-01-25] MEDS: OLANZapine 5 MG TAB PO SCH (20:33)
[2025-01-25] MEDS: MEROPENEM INJ 1 GM in IV 1 EA IV ONE (23:17)
[2025-01-26] MEDS: OLANZapine 2.5MG TABLET PO PRN (00:48)
[2025-01-26 04:00] VITALS: BP 143/98; TEMP 97.7; O2SAT 96
[2025-01-26 06:20] LABS: HEMATOCRIT 30.9 % (36.0-47.0); MEAN CORPUSCULAR HEMOGLOBIN 33.4 pg (27.0-33.0); MEAN CORPUSCULAR HGB CONC 32.4 g/dl (32.0-36.5); MEAN CORPUSCULAR VOLUME 103.3 fl (80.0-96.0); PLATELET COUNT, AUTOMATED 228 10^3/uL (150-450); RED BLOOD COUNT 2.99 10^6/uL (4.00-5.40); WHITE BLOOD COUNT 6.7 10^3/uL (4.0-10.0)
[2025-01-26 07:08] LABS: ALBUMIN 3.1 G/DL (3.2-5.2); BILIRUBIN,TOTAL 0.5 MG/DL (0.3-1.2); CALCIUM LEVEL 9.1 MG/DL (8.3-10.6); CREATININE FOR GFR 1.78 MG/DL (0.55-1.30); GLOMERULAR FILTRATION RATE 30.3 (>45); POTASSIUM SERUM 4.3 MMOL/L (3.5-5.1); TOTAL PROTEIN 5.5 G/DL (5.7-8.2)
[2025-01-26] MEDS: MEROPENEM INJ 1 GM in IV 1 EA IV SCH (08:38)
[2025-01-26 12:00] VITALS: BP 128/92; TEMP 98.4; O2SAT 96
[2025-01-26] MEDS: CYCLOBENZAPRINE 10MG TABLET PO PRN (13:30)
[2025-01-26 20:28] VITALS: BP 126/82; TEMP 98.2; O2SAT 100
[2025-01-27 03:16] VITALS: BP 128/92; TEMP 97.7; O2SAT 98
[2025-01-27 06:38] LABS: HEMATOCRIT 34.5 % (36.0-47.0); HEMOGLOBIN 10.9 g/dl (12.0-15.5); MEAN CORPUSCULAR HGB CONC 31.6 g/dl (32.0-36.5); MEAN CORPUSCULAR VOLUME 104.5 fl (80.0-96.0); PLATELET COUNT, AUTOMATED 277 10^3/uL (150-450); WHITE BLOOD COUNT 8.6 10^3/uL (4.0-10.0)
[2025-01-27 07:09] LABS: ALBUMIN 3.2 G/DL (3.2-5.2); BILIRUBIN,TOTAL 0.7 MG/DL (0.3-1.2); CREATININE FOR GFR 1.83 MG/DL (0.55-1.30); GLOMERULAR FILTRATION RATE 29.3 (>45); POTASSIUM SERUM 5.4 MMOL/L (3.5-5.1); TOTAL PROTEIN 5.8 G/DL (5.7-8.2)
[2025-01-27 12:00] VITALS: BP 108/84; TEMP 98.2; O2SAT 98
[2025-01-27 19:35] VITALS: BP 136/95; TEMP 97.7; O2SAT 96
[2025-01-28] MEDS: HALOPERIDOL LACTATE 5MG/ML VIAL IM PRN ×2 (01:45→03:41)
[2025-01-28] MEDS: diphenhydrAMINE 50MG/ML VIAL IM PRN (02:19)
[2025-01-28 05:51] LABS: VENOUS BASE EXCESS -9.8 (-2.0-2.0); VENOUS HCO3 14.3 MMOL/L (23.0-27.0); VENOUS O2 SATURATION 98.8 % (60.0-80.0); VENOUS PARTIAL PRESSURE CO2 25.7 mmHg (38.0-50.0); VENOUS PARTIAL PRESSURE O2 155.1 mmHg (30.0-50.0); VENOUS PH 7.363 UNITS (7.330-7.430); VENOUS STANDARD HCO3 16.6 MMOL/L; VENOUS TOTAL CO2 15.1 MMOL/L (24.0-28.0)
[2025-01-28 06:34] LABS: THYROXINE (T4) 7.1 UG/DL (4.5-10.9)
[2025-01-28 06:35] LABS: THYROID STIMULATING HORMONE 2.676 uIU/ML (0.55-4.78)
[2025-01-28] MEDS: LACTULOSE 20GM/30ML SYRUP UDC PO SCH (09:00)
[2025-01-28 09:31] LABS: HEMATOCRIT 31.8 % (36.0-47.0); HEMOGLOBIN 10.3 g/dl (12.0-15.5); LYMPH # 1.1 10^3/uL (1.5-5.0); LYMPH % 13.7 % (24.0-44.0); MEAN CORPUSCULAR HEMOGLOBIN 33.9 pg (27.0-33.0); MEAN CORPUSCULAR HGB CONC 32.4 g/dl (32.0-36.5); MEAN CORPUSCULAR VOLUME 104.6 fl (80.0-96.0); MONO # 0.7 10^3/uL (0.0-0.8); MONO % 9.5 % (2.0-8.0); NEUTROPHILS # 5.9 10^3/uL (1.5-8.5); NEUTROPHILS % 76.1 % (36.0-66.0); PLATELET COUNT, AUTOMATED 256 10^3/uL (150-450); RED BLOOD COUNT 3.04 10^6/uL (4.00-5.40); WHITE BLOOD COUNT 7.7 10^3/uL (4.0-10.0)
[2025-01-28 10:03] LABS: ALBUMIN 2.9 G/DL (3.2-5.2); BILIRUBIN,TOTAL 0.5 MG/DL (0.3-1.2); CALCIUM LEVEL 8.4 MG/DL (8.3-10.6); CREATININE FOR GFR 1.96 MG/DL (0.55-1.30); FREE THYROXINE INDEX 2.8 % (1.3-4.8); GLOMERULAR FILTRATION RATE 27.1 (>45); MAGNESIUM LEVEL 2.3 MG/DL (1.8-2.4); POTASSIUM SERUM 4.9 MMOL/L (3.5-5.1); T UPTAKE 39.3 % (22.5-37.0); TOTAL PROTEIN 5.3 G/DL (5.7-8.2)
[2025-01-28] MEDS ORDERED: CEQU0.09 OU (10:27)
[2025-01-28] MEDS: CYCLOSPORINE 0.09% OU SCH (10:31)
[2025-01-28 12:07] VITALS: BP 146/97; TEMP 98.1; O2SAT 93
[2025-01-28] MEDS: ERTAPENEM SODIUM 1 GM in NS MINI-BAG PLUS 50 ML IV SCH (20:38)
[2025-01-28] MEDS: FUROSEMIDE 20MG/2ML VIAL IV ONE (20:38)
[2025-01-28 20:51] VITALS: BP 116/83; TEMP 97.9; O2SAT 100
[2025-01-29 04:10] VITALS: BP 97/66; TEMP 98.2; O2SAT 95
[2025-01-29 06:12] LABS: HEMATOCRIT 27.8 % (36.0-47.0); HEMOGLOBIN 9.1 g/dl (12.0-15.5); MEAN CORPUSCULAR HEMOGLOBIN 33.3 pg (27.0-33.0); MEAN CORPUSCULAR HGB CONC 32.7 g/dl (32.0-36.5); MEAN CORPUSCULAR VOLUME 101.8 fl (80.0-96.0); PLATELET COUNT, AUTOMATED 213 10^3/uL (150-450); RED BLOOD COUNT 2.73 10^6/uL (4.00-5.40)
[2025-01-29 06:47] LABS: ALBUMIN 2.7 G/DL (3.2-5.2); BILIRUBIN,TOTAL 0.3 MG/DL (0.3-1.2); CALCIUM LEVEL 8.4 MG/DL (8.3-10.6); CREATININE FOR GFR 1.7 MG/DL (0.55-1.30); GLOMERULAR FILTRATION RATE 31.9 (>45); POTASSIUM SERUM 3.5 MMOL/L (3.5-5.1); TOTAL PROTEIN 4.9 G/DL (5.7-8.2)
[2025-01-29] MEDS: FUROSEMIDE 20 MG TAB PO SCH (11:20)
[2025-01-29 20:40] VITALS: BP 132/80; TEMP 98.2; O2SAT 98
[2025-01-30] MEDS: ACETAMINOPHEN *IV* 1,000 MG in IV 1 EA IV ONE (02:05)
[2025-01-30 04:30] VITALS: BP 134/86; TEMP 98.2; O2SAT 97
[2025-01-30] MEDS ORDERED: NALOXONE INJ 0.4MG/1ML VIAL IV PRN (04:45)
[2025-01-30] MEDS ORDERED: PERCOCET 5MG/325MG TAB PO PRN (04:45)
[2025-01-30] MEDS: PERCOCET 5MG/325MG TAB PO PRN (05:36)
[2025-01-30] MEDS: FUROSEMIDE 20 MG TAB PO SCH (08:56)
[2025-01-30 12:00] VITALS: BP 144/102; TEMP 98.1; O2SAT 99
[2025-01-30 12:33] VITALS: BP 118/98
[2025-01-30 20:00] VITALS: BP 136/89; TEMP 97.9; O2SAT 96
[2025-01-31 04:00] VITALS: BP 139/91; TEMP 97.8; O2SAT 94
[2025-01-31 05:41] LABS: HEMATOCRIT 27.4 % (36.0-47.0); HEMOGLOBIN 8.8 g/dl (12.0-15.5); MEAN CORPUSCULAR HEMOGLOBIN 33.2 pg (27.0-33.0); MEAN CORPUSCULAR HGB CONC 32.1 g/dl (32.0-36.5); MEAN CORPUSCULAR VOLUME 103.4 fl (80.0-96.0); PLATELET COUNT, AUTOMATED 210 10^3/uL (150-450); RED BLOOD COUNT 2.65 10^6/uL (4.00-5.40); WHITE BLOOD COUNT 5.5 10^3/uL (4.0-10.0)
[2025-01-31 06:05] LABS: ALBUMIN 2.6 G/DL (3.2-5.2); BILIRUBIN,TOTAL 0.4 MG/DL (0.3-1.2); CALCIUM LEVEL 8.2 MG/DL (8.3-10.6); CREATININE FOR GFR 1.46 MG/DL (0.55-1.30); POTASSIUM SERUM 3.6 MMOL/L (3.5-5.1); TOTAL PROTEIN 4.7 G/DL (5.7-8.2)
[2025-01-31] MEDS: SENOKOT S TAB PO SCH (09:11)
[2025-01-31] MEDS: TORSEMIDE 20 MG TAB PO SCH (09:25)
[2025-01-31 12:00] VITALS: BP 142/90; TEMP 97.5; O2SAT 100
[2025-01-31 20:32] VITALS: BP 133/89; TEMP 98.6; O2SAT 97
[2025-02-01 04:55] VITALS: BP 140/102; TEMP 98.4; O2SAT 95
[2025-02-01 09:11] LABS: HEMATOCRIT 28.4 % (36.0-47.0); HEMOGLOBIN 9.4 g/dl (12.0-15.5); MEAN CORPUSCULAR HEMOGLOBIN 33.5 pg (27.0-33.0); MEAN CORPUSCULAR HGB CONC 33.1 g/dl (32.0-36.5); MEAN CORPUSCULAR VOLUME 101.1 fl (80.0-96.0); PLATELET COUNT, AUTOMATED 203 10^3/uL (150-450); RED BLOOD COUNT 2.81 10^6/uL (4.00-5.40); WHITE BLOOD COUNT 6.3 10^3/uL (4.0-10.0)
[2025-02-01 09:44] LABS: CALCIUM LEVEL 8.5 MG/DL (8.3-10.6); CREATININE FOR GFR 1.26 MG/DL (0.55-1.30); GLOMERULAR FILTRATION RATE 45.1 (>45); POTASSIUM SERUM 3.5 MMOL/L (3.5-5.1)
[2025-02-01 12:00] VITALS: BP 144/80; TEMP 98.1; O2SAT 99
[2025-02-01 20:41] VITALS: BP 131/79; TEMP 98.6; O2SAT 97
[2025-02-02 05:23] VITALS: BP 144/100; TEMP 98.1; O2SAT 98
[2025-02-02 06:02] LABS: EOS # 0.1 10^3/uL (0.0-0.5); EOS % 0.8 % (0.0-3.0); HEMATOCRIT 28.8 % (36.0-47.0); HEMOGLOBIN 9.3 g/dl (12.0-15.5); LYMPH # 0.9 10^3/uL (1.5-5.0); LYMPH % 12.3 % (24.0-44.0); MEAN CORPUSCULAR HEMOGLOBIN 32.4 pg (27.0-33.0); MEAN CORPUSCULAR HGB CONC 32.3 g/dl (32.0-36.5); MEAN CORPUSCULAR VOLUME 100.3 fl (80.0-96.0); MONO # 0.6 10^3/uL (0.0-0.8); MONO % 8.3 % (2.0-8.0); NEUTROPHILS # 5.5 10^3/uL (1.5-8.5); NEUTROPHILS % 78.2 % (36.0-66.0); PLATELET COUNT, AUTOMATED 208 10^3/uL (150-450); RED BLOOD COUNT 2.87 10^6/uL (4.00-5.40); WHITE BLOOD COUNT 7.1 10^3/uL (4.0-10.0)
[2025-02-02 06:18] LABS: CALCIUM LEVEL 8.5 MG/DL (8.3-10.6); CREATININE FOR GFR 1.35 MG/DL (0.55-1.30); GLOMERULAR FILTRATION RATE 41.6 (>45); POTASSIUM SERUM 3.5 MMOL/L (3.5-5.1)
[2025-02-03 04:00] VITALS: BP 126/83; TEMP 97.9; O2SAT 96
[2025-02-03] MEDS: OLANZapine 2.5MG TABLET PO PRN (14:35)
[2025-02-03 22:55] VITALS: O2SAT 97
[2025-02-04 04:00] VITALS: BP 139/96; TEMP 97.7; O2SAT 97
[2025-02-04 05:59] LABS: BASO % 0.1 % (0.0-1.0); EOS # 0.2 10^3/uL (0.0-0.5); EOS % 2.1 % (0.0-3.0); HEMATOCRIT 27.9 % (36.0-47.0); HEMOGLOBIN 9.1 g/dl (12.0-15.5); LYMPH # 0.9 10^3/uL (1.5-5.0); LYMPH % 12.4 % (24.0-44.0); MEAN CORPUSCULAR HEMOGLOBIN 32.9 pg (27.0-33.0); MEAN CORPUSCULAR HGB CONC 32.6 g/dl (32.0-36.5); MEAN CORPUSCULAR VOLUME 100.7 fl (80.0-96.0); MONO # 0.6 10^3/uL (0.0-0.8); MONO % 8.3 % (2.0-8.0); NEUTROPHILS # 5.4 10^3/uL (1.5-8.5); NEUTROPHILS % 76.7 % (36.0-66.0); PLATELET COUNT, AUTOMATED 191 10^3/uL (150-450); RED BLOOD COUNT 2.77 10^6/uL (4.00-5.40); WHITE BLOOD COUNT 7.1 10^3/uL (4.0-10.0)
[2025-02-04 06:21] LABS: CALCIUM LEVEL 8.4 MG/DL (8.3-10.6); CREATININE FOR GFR 1.29 MG/DL (0.55-1.30); GLOMERULAR FILTRATION RATE 43.9 (>45); POTASSIUM SERUM 3.6 MMOL/L (3.5-5.1)
[2025-02-04 07:00] VITALS: O2SAT 95
[2025-02-04 21:40] VITALS: O2SAT 97
[2025-02-05 03:03] VITALS: BP 143/99; TEMP 97.5; O2SAT 97
[2025-02-06] VITALS: BP 145/97; TEMP 98.8; O2SAT 98
[2025-02-06] MEDS: PROMETHAZINE 25MG/ML 1ML VIAL IM ONE (01:10)
[2025-02-06 01:18] VITALS: O2SAT 96
[2025-02-06 02:41] VITALS: O2SAT 96
[2025-02-06 05:22] VITALS: BP 110/78; TEMP 98.8; O2SAT 97
[2025-02-06 06:14] LABS: BASO % 0.1 % (0.0-1.0); CALCIUM LEVEL 8.1 MG/DL (8.3-10.6); CREATININE FOR GFR 1.41 MG/DL (0.55-1.30); EOS # 0.1 10^3/uL (0.0-0.5); EOS % 0.8 % (0.0-3.0); GLOMERULAR FILTRATION RATE 39.6 (>45); HEMATOCRIT 28.2 % (36.0-47.0); HEMOGLOBIN 9.2 g/dl (12.0-15.5); LYMPH # 0.9 10^3/uL (1.5-5.0); LYMPH % 9.3 % (24.0-44.0); MEAN CORPUSCULAR HEMOGLOBIN 32.6 pg (27.0-33.0); MEAN CORPUSCULAR HGB CONC 32.6 g/dl (32.0-36.5); MONO # 0.7 10^3/uL (0.0-0.8); MONO % 6.7 % (2.0-8.0); NEUTROPHILS # 8.1 10^3/uL (1.5-8.5); NEUTROPHILS % 82.6 % (36.0-66.0); PLATELET COUNT, AUTOMATED 194 10^3/uL (150-450); POTASSIUM SERUM 3.7 MMOL/L (3.5-5.1); RED BLOOD COUNT 2.82 10^6/uL (4.00-5.40); WHITE BLOOD COUNT 9.8 10^3/uL (4.0-10.0)
[2025-02-06] MEDS: MAGIC MOUTHWASH 5ML ORAL SYRINGE SS PRN (16:50)
[2025-02-06] MEDS: OLANZapine 10 MG TAB PO SCH (22:13)
[2025-02-07 04:33] VITALS: BP 140/101; TEMP 97.9; O2SAT 98
[2025-02-07 05:14] LABS: BASO % 0.1 % (0.0-1.0); EOS # 0.1 10^3/uL (0.0-0.5); HEMATOCRIT 31.6 % (36.0-47.0); HEMOGLOBIN 9.9 g/dl (12.0-15.5); LYMPH # 0.9 10^3/uL (1.5-5.0); LYMPH % 9.5 % (24.0-44.0); MEAN CORPUSCULAR HEMOGLOBIN 31.9 pg (27.0-33.0); MEAN CORPUSCULAR HGB CONC 31.3 g/dl (32.0-36.5); MEAN CORPUSCULAR VOLUME 101.9 fl (80.0-96.0); MONO # 0.8 10^3/uL (0.0-0.8); MONO % 7.9 % (2.0-8.0); NEUTROPHILS # 7.8 10^3/uL (1.5-8.5); NEUTROPHILS % 81.2 % (36.0-66.0); PLATELET COUNT, AUTOMATED 180 10^3/uL (150-450); WHITE BLOOD COUNT 9.6 10^3/uL (4.0-10.0)
[2025-02-07 05:38] LABS: CALCIUM LEVEL 8.7 MG/DL (8.3-10.6); CREATININE FOR GFR 1.32 MG/DL (0.55-1.30); GLOMERULAR FILTRATION RATE 44.3 (>45); POTASSIUM SERUM 3.6 MMOL/L (3.5-5.1)
[2025-02-07] MEDS: TORSEMIDE 20 MG TAB PO SCH (08:05)
[2025-02-07] MEDS: diphenhydrAMINE 50MG CAP PO STA (09:13)
[2025-02-07 23:30] VITALS: O2SAT 95
[2025-02-08 01:40] VITALS: O2SAT 97
[2025-02-08 04:00] VITALS: BP 118/83; TEMP 98.6; O2SAT 93
[2025-02-08 06:17] LABS: BASO % 0.1 % (0.0-1.0); EOS # 0.1 10^3/uL (0.0-0.5); EOS % 0.7 % (0.0-3.0); HEMATOCRIT 28.9 % (36.0-47.0); HEMOGLOBIN 9.4 g/dl (12.0-15.5); LYMPH % 11.8 % (24.0-44.0); MEAN CORPUSCULAR HEMOGLOBIN 32.4 pg (27.0-33.0); MEAN CORPUSCULAR HGB CONC 32.5 g/dl (32.0-36.5); MEAN CORPUSCULAR VOLUME 99.7 fl (80.0-96.0); MONO # 0.7 10^3/uL (0.0-0.8); MONO % 8.4 % (2.0-8.0); NEUTROPHILS # 6.8 10^3/uL (1.5-8.5); NEUTROPHILS % 78.5 % (36.0-66.0); PLATELET COUNT, AUTOMATED 171 10^3/uL (150-450); WHITE BLOOD COUNT 8.7 10^3/uL (4.0-10.0)
[2025-02-08 06:45] LABS: CALCIUM LEVEL 8.2 MG/DL (8.3-10.6); CREATININE FOR GFR 1.52 MG/DL (0.55-1.30); GLOMERULAR FILTRATION RATE 37.4 (>45); POTASSIUM SERUM 3.9 MMOL/L (3.5-5.1)
[2025-02-08 08:56] VITALS: BP 121/85
== END 2025-02-08 18:06 | DRG 689 ==
LOC: M ED 00:50 → M ED INP 09:46 → M MSPAV 15:50
PROVIDERS: ADMIT Internal Medicine; ATTEND Student in an Organized Health Care Education/Training Program
DX: N39.0 Urinary tract infection, site not specified (principal); I50.23 Acute on chronic systolic (congestive) heart failure; E43 Unspecified severe protein-calorie malnutrition; Z94.84 Stem cells transplant status; I13.0 Hypertensive heart and chronic kidney disease with heart failure and stage 1 through stage 4 chronic kidney disease, or unspecified chronic kidney disease; I50.22 Chronic systolic (congestive) heart failure; D89.813 Graft-versus-host disease, unspecified; N17.9 Acute kidney failure, unspecified; N18.30 Chronic kidney disease, stage 3 unspecified; I48.91 Unspecified atrial fibrillation; M32.9 Systemic lupus erythematosus, unspecified; K86.89 Other specified diseases of pancreas; M79.7 Fibromyalgia; G47.33 Obstructive sleep apnea (adult) (pediatric); M10.9 Gout, unspecified; N32.81 Overactive bladder; D63.8 Anemia in other chronic diseases classified elsewhere; M54.16 Radiculopathy, lumbar region; Z90.49 Acquired absence of other specified parts of digestive tract; Z90.79 Acquired absence of other genital organ(s); G25.81 Restless legs syndrome; G47.00 Insomnia, unspecified; Z79.01 Long term (current) use of anticoagulants; Z79.899 Other long term (current) drug therapy; Z91.018 Allergy to other foods; Z91.048 Other nonmedicinal substance allergy status; B96.1 Klebsiella pneumoniae [K. pneumoniae] as the cause of diseases classified elsewhere; G89.29 Other chronic pain; F29 Unspecified psychosis not due to a substance or known physiological condition

== ENCOUNTER 2025-02-08 13:43 | Inpatient (IN) | payer MEDICARE, OTHER ==
[~2025-02-08 13:43] MED LIST changes: +CEQU0.09 OU; +CYCL1DRO10 OU; +GLUC1KIT IM; +ISOS1TAB35 PO
[2025-02-08] MEDS ORDERED: OLANZapine 5 MG TAB PO PRN (16:30)
[2025-02-08] MEDS ORDERED: MAALOX 30 ML SUSP *UDC PO PRN (16:30)
[2025-02-08] MEDS ORDERED: diphenhydrAMINE 25MG CAP PO PRN (16:30)
[2025-02-08] MEDS ORDERED: MOM 30ML SUSPENSION UDC PO PRN (16:30)
[2025-02-08] MEDS ORDERED: LORazepam 1 MG TAB PO PRN (16:30)
[2025-02-08] MEDS ORDERED: TRIAMCINOLONE ACET 0.1% CREAM 80GM TOP PRN (17:05)
[2025-02-08] MEDS ORDERED: GLUCAGON INJ 1MG VIAL IM PRN (17:05)
[2025-02-08] MEDS ORDERED: LACTULOSE 20GM/30ML SYRUP UDC PO PRN (17:05)
[2025-02-08] MEDS ORDERED: POLYVINYL ALCOHOL OPHTH SOLN 15ML (LIQUITEARS) OU PRN (17:05)
[2025-02-08] MEDS ORDERED: GLUCOSE 4 GM CHEW PO PRN (17:05)
[2025-02-08] MEDS ORDERED: GLUCAGON INJ 1MG VIAL SC PRN (17:05)
[2025-02-08] MEDS ORDERED: TORSEMIDE 20 MG TAB PO PRN (17:05)
[2025-02-08] MEDS ORDERED: DEXTROSE 50% 50ML SYRINGE IV PRN (17:05)
[2025-02-08] MEDS ORDERED: INSULIN LISPRO (NovoLOG) PER UNIT SC SCH ×2 (17:30→21:00)
[2025-02-08 19:08] VITALS: BP 134/85; TEMP 97.5; O2SAT 100
[2025-02-08] MEDS ORDERED: SERTRALINE HCL 50 MG TAB PO SCH (21:00)
[2025-02-08] MEDS ORDERED: **hydrALAZINE HCL** 25 MG TAB PO SCH (22:00)
[2025-02-08] MEDS: SERTRALINE HCL 50 MG TAB PO SCH (22:03)
[2025-02-08] MEDS: POTASSIUM CHLORIDE 10MEQ SR TABLET PO SCH (22:04)
[2025-02-08] MEDS: APIXABAN 5 MG TAB (ELIQUIS) PO SCH (22:04)
[2025-02-08] MEDS: GABAPENTIN 100 MG CAP PO SCH (22:04)
[2025-02-08] MEDS: METOPROLOL SUCC (TopROL XL) 100MG *XL* TAB PO SCH (22:06)
[2025-02-08] MEDS: OLANZapine 10 MG TAB PO SCH (22:06)
[2025-02-08] MEDS: allopurinoL 100 MG TAB PO SCH (22:06)
[2025-02-08] MEDS: ERYTHROMYCIN ETHYLSUCCINATE PO SCH (22:07)
[2025-02-08] MEDS: ACYCLOVIR 200 MG CAPSULE PO SCH (22:42)
[2025-02-08] MEDS: dexAMETHasone 1 MG TAB PO SCH (22:42)
[2025-02-08] MEDS: PRAMIPEXOLE (MIRAPEX) 0.125 MG TAB PO SCH (22:43)
[2025-02-08] MEDS: CYCLOSPORINE 0.09% OU SCH (22:46)
[2025-02-09 06:53] VITALS: BP 145/101; TEMP 97; O2SAT 99
[2025-02-09] MEDS: CREON-12 CAPSULE (PANCRELIPASE) PO SCH (07:51)
[2025-02-09] MEDS: CREON-24 CAPSULE (PANCRELIPASE) PO SCH (07:51)
[2025-02-09 08:22] VITALS: BP 144/88
[2025-02-09] MEDS: DOCUSATE SODIUM 100MG CAPSULE PO SCH (08:24)
[2025-02-09] MEDS: HYDROXYCHLOROQUINE 200 MG TAB PO SCH (08:25)
[2025-02-09] MEDS: ISOSORBIDE MON. (IMDUR) 30MG XR TAB PO SCH (08:26)
[2025-02-09] MEDS: TORSEMIDE 20 MG TAB PO SCH (08:27)
[2025-02-09] MEDS: FOLIC ACID 1MG TAB PO SCH (08:28)
[2025-02-09] MEDS: MAGNESIUM OXIDE 400MG TAB (MAG-OX) PO SCH (08:28)
[2025-02-09] MEDS: RUXOLITINIB PHOSPHATE 5 MG PO SCH (08:38)
[2025-02-09] MEDS: oxyBUTYnin *DITROPAN XL* 5 MG TABCR PO SCH (10:10)
[2025-02-09 15:03] VITALS: BP 144/102; TEMP 97.2; O2SAT 96
[2025-02-09] MEDS: traZODone 50 MG TAB PO PRN (21:30)
[2025-02-09] MEDS: METOPROLOL SUCC *XL* 12.5MG PER 1/2 TAB (TopROL *XL*) PO SCH (21:31)
[2025-02-10 08:13] LABS: HEMATOCRIT 28.8 % (36.0-47.0); HEMOGLOBIN 9.4 g/dl (12.0-15.5); MEAN CORPUSCULAR HEMOGLOBIN 31.8 pg (27.0-33.0); MEAN CORPUSCULAR HGB CONC 32.6 g/dl (32.0-36.5); MEAN CORPUSCULAR VOLUME 97.3 fl (80.0-96.0); PLATELET COUNT, AUTOMATED 170 10^3/uL (150-450); RED BLOOD COUNT 2.96 10^6/uL (4.00-5.40); WHITE BLOOD COUNT 7.2 10^3/uL (4.0-10.0)
[2025-02-10] MEDS: BACTRIM 80MG/400MG TAB PO SCH (08:17)
[2025-02-10 08:37] LABS: ALBUMIN 2.6 G/DL (3.2-5.2); BILIRUBIN,DIRECT 0.4 MG/DL (<0.4); BILIRUBIN,TOTAL 0.6 MG/DL (0.3-1.2); CALCIUM LEVEL 8.1 MG/DL (8.3-10.6); CREATININE FOR GFR 1.72 MG/DL (0.55-1.30); GLOMERULAR FILTRATION RATE 32.2 (>45); POTASSIUM SERUM 4.2 MMOL/L (3.5-5.1); TOTAL PROTEIN 4.5 G/DL (5.7-8.2)
[2025-02-10 15:19] VITALS: BP 119/74; TEMP 97.1
[2025-02-10] MEDS: ACETAMINOPHEN 325 MG TAB PO PRN (21:21)
[2025-02-11 06:30] VITALS: BP 133/93; TEMP 97; O2SAT 96
[2025-02-11] MEDS: CYCLOBENZAPRINE 10MG TABLET PO PRN (17:29)
[2025-02-11 17:46] VITALS: BP 123/84; TEMP 97.5; O2SAT 99
[2025-02-12 06:19] VITALS: BP 111/57; TEMP 97.1; O2SAT 96
[2025-02-12] MEDS: ULTRACET TAB PO ONE (16:27)
[2025-02-12] MEDS: OLANZapine 2.5MG TABLET PO SCH (20:45)
[2025-02-12] MEDS: guaiFENesin ER TABLET 600 MG TAB PO SCH (20:45)
[2025-02-12] MEDS: OLANZapine 10 MG TAB PO SCH (20:46)
[2025-02-12 21:08] VITALS: BP 128/89
[2025-02-13 06:20] VITALS: BP 77/30; O2SAT 77
[2025-02-13 06:30] VITALS: BP 77/30; O2SAT 77
[2025-02-13] MEDS ORDERED: NS (Normal Saline) 0.9% 1,000 ML IV ONE (06:40)
[2025-02-13 07:18] LABS: HEMATOCRIT 33.8 % (36.0-47.0); HEMOGLOBIN 10.5 g/dl (12.0-15.5); MEAN CORPUSCULAR HEMOGLOBIN 30.9 pg (27.0-33.0); MEAN CORPUSCULAR HGB CONC 31.1 g/dl (32.0-36.5); MEAN CORPUSCULAR VOLUME 99.4 fl (80.0-96.0); PLATELET COUNT, AUTOMATED 180 10^3/uL (150-450); WHITE BLOOD COUNT 1.5 10^3/uL (4.0-10.0)
[2025-02-13 07:46] LABS: ALBUMIN 2.1 G/DL (3.2-5.2); BILIRUBIN,TOTAL 0.4 MG/DL (0.3-1.2); CALCIUM LEVEL 7.5 MG/DL (8.3-10.6); CK-MB VALUE MASS 4.1 NG/ML (<3.6); CREATININE FOR GFR 2.34 MG/DL (0.55-1.30); GLOMERULAR FILTRATION RATE 22.3 (>45); MAGNESIUM LEVEL 2.1 MG/DL (1.8-2.4); MB/CK RELATIVE INDEX 2.16 (< OR =4); POTASSIUM SERUM 4.3 MMOL/L (3.5-5.1)
[2025-02-13 08:07] LABS: ATYPICAL LYMPH 3 % (0-5); LYMPHOCYTES 17 % (16-44); METAMYELOCYTES 3 % (0-0); MONOCYTES 5 % (0-5); NEUTROPHILS 61 % (28-66); NUCLEATED RED BLOOD CELL 19 % (0-0)
[2025-02-13 08:10] LABS: PLATELET CLUMPS SMALL AMT; PLATELET ESTIMATE NORMAL (NORMAL); SCHISTOCYTES 1+
== END 2025-02-13 06:23 | disposition short-term general hospital (02) | DRG 885 ==
LOC: M PSY 18:06
PROVIDERS: ADMIT Internal Medicine; ATTEND Psychiatry & Neurology Psychiatry
DX: F29 Unspecified psychosis not due to a substance or known physiological condition (principal); I50.23 Acute on chronic systolic (congestive) heart failure; E43 Unspecified severe protein-calorie malnutrition; Z94.84 Stem cells transplant status; D75.81 Myelofibrosis; N18.30 Chronic kidney disease, stage 3 unspecified; R41.0 Disorientation, unspecified; I95.9 Hypotension, unspecified; I48.91 Unspecified atrial fibrillation; R09.02 Hypoxemia; M32.9 Systemic lupus erythematosus, unspecified; R00.1 Bradycardia, unspecified; F41.9 Anxiety disorder, unspecified; M79.7 Fibromyalgia; I10 Essential (primary) hypertension; G47.33 Obstructive sleep apnea (adult) (pediatric); M54.16 Radiculopathy, lumbar region; M10.9 Gout, unspecified; N32.81 Overactive bladder; D63.8 Anemia in other chronic diseases classified elsewhere; Z90.49 Acquired absence of other specified parts of digestive tract; K86.89 Other specified diseases of pancreas; G47.00 Insomnia, unspecified; Z79.01 Long term (current) use of anticoagulants; Z79.899 Other long term (current) drug therapy; Z88.1 Allergy status to other antibiotic agents; Z88.8 Allergy status to other drugs, medicaments and biological substances; Z91.041 Radiographic dye allergy status

== ENCOUNTER 2025-02-13 06:38 | Inpatient (IN) | payer MEDICARE, OTHER ==
[~2025-02-13] VITALS: Ht 165.1 cm; Wt 66.2 kg
[2025-02-13] VITALS (142 sets, daily range): BP systolic 52–164; BP diastolic 27–97; TEMP 96.3–98; O2SAT 45–95
[2025-02-13 07:56] LABS: ABG BASE EXCESS -12.4 (-2.0-2.0); ABG HCO3 15.9 MMOL/L (22.0-26.0); ABG O2 SATURATION 44.8 % (95.0-99.0); ABG PARTIAL PRESSURE CO2 46.5 mmHg (35.0-45.0); ABG PARTIAL PRESSURE O2 32.6 mmHg (75.0-100.0); ABG STANDARD HCO3 13.9 MMOL/L. (22.0-26.0); ABG TOTAL CO2 17.3 MMOL/L (23.0-31.0); ABG pH (ARTERIAL) 7.152 UNITS (7.350-7.450)
[2025-02-13] MEDS: NOREPINEPHRINE 4MG IN D5 250ML 4 MG in IV 1 EA IV SCH (08:00)
[2025-02-13] MEDS ORDERED: LORazepam 2 MG/ML 1ML VIAL As Ordered ONE (08:14)
[2025-02-13] MEDS: ROCURONIUM BROMIDE 50MG/5ML VIAL IV SCH (08:19)
[2025-02-13] MEDS: VASOPRESSIN IN 0.9 % NACL 20 UNIT in IV 1 EA IV SCH (08:25)
[2025-02-13] MEDS ORDERED: VANCOMYCIN HCL 1,000 MG, VIAL MATE ADAPTER 1 EACH in NS 250 ML IP STA (08:28)
[2025-02-13] MEDS ORDERED: HYDROCORTISONE 100MG/2ML VIAL As Ordered ONE (08:28)
[2025-02-13] MEDS ORDERED: PIPERACILLIN/TAZOBACTAM SOD 4.5 GM in DEXTROSE 5% (D5W) ADV/MINI-BAG 50 ML IV STA (08:28)
[2025-02-13] MEDS ORDERED: EPINEPHrine INJ 1 MG/ML 1ML AMP As Ordered ONE (08:35)
[2025-02-13] MEDS: VANCOMYCIN HCL 1,000 MG, VIAL MATE ADAPTER 1 EACH in NS 250 ML IV STA (08:36)
[2025-02-13] MEDS ORDERED: EPINEPHrine HCL INJ 1 MG in D5W 240 ML IV SCH (08:40)
[2025-02-13] MEDS: MEROPENEM INJ 1 GM in IV 1 EA IV STA (08:41)
[2025-02-13] MEDS ORDERED: PHENYLEPHRINE 10MG/ML 1ML VIAL As Ordered ONE (08:44)
[2025-02-13 08:49] LABS: ABG BASE EXCESS -15.8 (-2.0-2.0); ABG HCO3 13.5 MMOL/L (22.0-26.0); ABG O2 SATURATION 80.2 % (95.0-99.0); ABG PARTIAL PRESSURE CO2 46.8 mmHg (35.0-45.0); ABG PARTIAL PRESSURE O2 63.1 mmHg (75.0-100.0); ABG TOTAL CO2 14.9 MMOL/L (23.0-31.0)
[2025-02-13] MEDS: SODIUM BICARBONATE 8.4% INJ 50ML SYRINGE IV STA ×3 (08:50→15:32)
[2025-02-13] MEDS ORDERED: SODIUM BICARBONATE 8.4% INJ 50ML SYRINGE As Ordered ONE (08:52)
[2025-02-13 08:54] LABS: ABG pH (ARTERIAL) 7.078 UNITS (7.350-7.450)
[2025-02-13] MEDS ORDERED: EPINEPHrine HCL INJ 16 MG in D5W 984 ML IV SCH (09:00)
[2025-02-13] MEDS ORDERED: FENTANYL DRIP LOCK BOX KEY 1 EACH XX PRN (09:05)
[2025-02-13] MEDS: MIDAZOLAM 100MG/100ML-0.9%NACL 100 MG in IV 1 EA IV SCH (09:05)
[2025-02-13] MEDS: fentaNYL CITRATE/NaCl 1,000 MCG in IV 1 EA IV SCH (09:05)
[2025-02-13 09:16] LABS: HEMATOCRIT 26.5 % (36.0-47.0); HEMOGLOBIN 8.3 g/dl (12.0-15.5); MEAN CORPUSCULAR HEMOGLOBIN 32.5 pg (27.0-33.0); MEAN CORPUSCULAR HGB CONC 31.3 g/dl (32.0-36.5); MEAN CORPUSCULAR VOLUME 103.9 fl (80.0-96.0); PLATELET COUNT, AUTOMATED 145 10^3/uL (150-450); RED BLOOD COUNT 2.55 10^6/uL (4.00-5.40)
[2025-02-13] MEDS: LORazepam 2 MG/ML 1ML VIAL IV STA (09:24)
[2025-02-13] MEDS: propofoL 200 MG/20 ML VIAL IV ONE (09:24)
[2025-02-13] MEDS: EPINEPHrine 1MG/10ML SYRINGE 1.5IN IV STA (09:25)
[2025-02-13] MEDS: HYDROCORTISONE 100MG/2ML VIAL IV STA (09:25)
[2025-02-13] MEDS ORDERED: MIDAZOLAM INJ 2MG/2ML VIAL As Ordered ONE (09:43)
[2025-02-13] MEDS: CISATRACURIUM 10MG/ML 20 ML VIAL IV STA (09:49)
[2025-02-13 09:55] LABS: PROCALCITONIN 10.74 ng/ml
[2025-02-13 10:00] LABS: ALBUMIN 1.3 G/DL (3.2-5.2); BILIRUBIN,TOTAL 0.3 MG/DL (0.3-1.2); CALCIUM LEVEL 6.1 MG/DL (8.3-10.6); CREATININE FOR GFR 2.04 MG/DL (0.55-1.30); GLOMERULAR FILTRATION RATE 26.3 (>45); MAGNESIUM LEVEL 1.7 MG/DL (1.8-2.4); TOTAL PROTEIN 2.7 G/DL (5.7-8.2)
[2025-02-13 10:06] LABS: WHITE BLOOD COUNT 0.9 10^3/uL (4.0-10.0)
[2025-02-13] MEDS: MIDAZOLAM INJ 2MG/2ML VIAL IV PRN (10:17)
[2025-02-13 11:09] LABS: APPEARANCE, URINE CLOUDY (CLEAR); BACTERIA, URINE AUTO 3+ (NEGATIVE); BILIRUBIN, URINE AUTO NEGATIVE (NEGATIVE); BLOOD, URINE BLOOD NEGATIVE (NEGATIVE); COLOR, URINE AMBER (YELLOW); GLUCOSE, URINE (UA) AUTO NEGATIVE (NEGATIVE); KETONE, URINE AUTO NEGATIVE (NEGATIVE); LEUKOCYTE ESTERASE, URINE AUTO 3+ (NEGATIVE); NITRITE, URINE AUTO NEGATIVE (NEGATIVE); PROTEIN, URINE AUTO 3+ mg/dL (NEGATIVE); RBC, URINE AUTO 15 /HPF (0-3); SPECIFIC GRAVITY URINE AUTO 1.014 (1.002-1.035); SQUAMOUS EPITHELIAL CELL UR AU 0 /HPF (0-6); UROBILINOGEN, URINE AUTO 0.2 mg/dL (0.0-2.0); WBC, URINE AUTO 36 /HPF (0-3)
[2025-02-13 12:13] LABS: INR 4.59; PROTHROMBIN TIME 42.9 SECONDS (12.5-14.5)
[2025-02-13] MEDS: CALCIUM CHLORIDE 10% 1 GM in D5W 100 ML IV ONE (12:59)
[2025-02-13 13:36] LABS: ABG BASE EXCESS -15.3 (-2.0-2.0); ABG HCO3 14.2 MMOL/L (22.0-26.0); ABG O2 SATURATION 80.6 % (95.0-99.0); ABG PARTIAL PRESSURE CO2 48.2 mmHg (35.0-45.0); ABG PARTIAL PRESSURE O2 58.5 mmHg (75.0-100.0); ABG STANDARD HCO3 12.6 MMOL/L. (22.0-26.0); ABG TOTAL CO2 15.7 MMOL/L (23.0-31.0)
[2025-02-13 13:38] LABS: ABG pH (ARTERIAL) 7.088 UNITS (7.350-7.450)
[2025-02-13] MEDS: MAG SULF 1GM/100ML (MAG RUN) 1 GM in IV 1 EA IV ONE (14:06)
[2025-02-13] MEDS: SODIUM BICARBONATE 150 MEQ in D5W 1,000 ML IV SCH (14:32)
[2025-02-13 15:39] LABS: ABG BASE EXCESS 0.2 (-2.0-2.0); ABG HCO3 28.3 MMOL/L (22.0-26.0); ABG O2 SATURATION 88.2 % (95.0-99.0); ABG STANDARD HCO3 24.5 MMOL/L. (22.0-26.0); ABG TOTAL CO2 30.3 MMOL/L (23.0-31.0); ABG pH (ARTERIAL) 7.266 UNITS (7.350-7.450)
[2025-02-13 15:42] LABS: ABG PARTIAL PRESSURE CO2 63.7 mmHg (35.0-45.0)
[2025-02-13] MEDS: SODIUM BICARBONATE 8.4% INJ 50ML SYRINGE IV SCH (16:40)
[2025-02-13] MEDS ORDERED: HYOSCYAMINE SULFATE 0.125 MG SUBL TABLET PO PRN (17:00)
[2025-02-13] MEDS: LORazepam 2 MG/ML 1ML VIAL IV PRN (17:10)
[2025-02-13] MEDS ORDERED: VANCOMYCIN HCL 500 MG in DEXTROSE 5% (D5W) MINI-BAG PLU 100 ML IV SCH (20:00)
[2025-02-13] MEDS ORDERED: MEROPENEM INJ 1 GM in IV 1 EA IV SCH (22:00)
[2025-02-14] MEDS ORDERED: HYDROCORTISONE 100MG/2ML VIAL IV SCH (09:00)
== END 2025-02-13 17:28 | disposition expired | DRG 871 ==
LOC: EEVIPCON 06:38 → M PCU 06:38 → M ICU 07:54
PROVIDERS: ADMIT Family Medicine; ATTEND Family Medicine
PROC: 0BH17EZ Insertion of Endotracheal Airway into Trachea, Via Natural or Artificial Opening (ICD-10-PCS; principal; 2025-02-13)
PROC: 06HM33Z Insertion of Infusion Device into Right Femoral Vein, Percutaneous Approach (ICD-10-PCS; 2025-02-13)
PROC: 04HY32Z Insertion of Monitoring Device into Lower Artery, Percutaneous Approach (ICD-10-PCS; 2025-02-13)
PROC: B246ZZZ Ultrasonography of Right and Left Heart (ICD-10-PCS; 2025-02-13)
PROC: 5A1935Z Respiratory Ventilation, Less than 24 Consecutive Hours (ICD-10-PCS; 2025-02-13)
DX: A41.9 Sepsis, unspecified organism (principal); J15.9 Unspecified bacterial pneumonia; J96.01 Acute respiratory failure with hypoxia; R65.21 Severe sepsis with septic shock; I50.22 Chronic systolic (congestive) heart failure; E87.4 Mixed disorder of acid-base balance; N17.9 Acute kidney failure, unspecified; D75.81 Myelofibrosis; Z94.84 Stem cells transplant status; I13.0 Hypertensive heart and chronic kidney disease with heart failure and stage 1 through stage 4 chronic kidney disease, or unspecified chronic kidney disease; Z51.5 Encounter for palliative care; Z66 Do not resuscitate; R57.0 Cardiogenic shock; E83.42 Hypomagnesemia; I48.91 Unspecified atrial fibrillation; N18.30 Chronic kidney disease, stage 3 unspecified; M32.9 Systemic lupus erythematosus, unspecified; K86.89 Other specified diseases of pancreas; G25.81 Restless legs syndrome; G89.29 Other chronic pain; M79.7 Fibromyalgia; M54.16 Radiculopathy, lumbar region; G47.33 Obstructive sleep apnea (adult) (pediatric); D63.8 Anemia in other chronic diseases classified elsewhere; G47.00 Insomnia, unspecified; D70.9 Neutropenia, unspecified; F29 Unspecified psychosis not due to a substance or known physiological condition; Z90.49 Acquired absence of other specified parts of digestive tract; I46.9 Cardiac arrest, cause unspecified; Z79.899 Other long term (current) drug therapy; Z79.01 Long term (current) use of anticoagulants; Z88.8 Allergy status to other drugs, medicaments and biological substances; Z88.1 Allergy status to other antibiotic agents; Z91.018 Allergy to other foods; Z91.041 Radiographic dye allergy status